=== PATIENT | male | born 1985 | race Caucasian/White ===

== ENCOUNTER 2016-11-04 23:19 | Inpatient (IN) | payer BC ==
[~2016-11-04] VITALS: Ht 177.8 cm; Wt 64.2 kg
[~2016-11-04 23:19] MED LIST: DOXE50CA3 PO; LEVE500 PO; LORA-392 PO; POTA10CA PO; PROT40TA PO
[2016-11-04 23:21] VITALS: BP 148/101; PULSE 106; RESP 18; TEMP 98.4; O2SAT 96
[2016-11-04] MEDS ORDERED: SODIUM CHLOR 0.9% 1000 ML INJ 1,000 ML IV ONE (23:24)
[2016-11-04] MEDS ORDERED: SODIUM CHLORIDE 0.9% FLUSH 10 ML FLUSH IVF PRN (23:30)
[2016-11-04] MEDS ORDERED: LORazepam 2 MG/ML VIAL IVS ONE (23:30)
--- NOTE | 2016-11-04 23:39 | PD ---
HPI Chief Complaint: Altered Mental Status Time Seen by Provider: 23:24 Travel History International Travel<30 days: No Contact w/Intl Traveler<30days: No Traveled to known affect area: No History of Present Illness HPI Patient 31-year-old male with a history of seizure disorder presents emergency department for evaluation of possible seizure. Per EMS the patient was acting altered today, he was found unconscious and then became combative on the way to the hospital requiring restraints. The patient on arrival is calm or states that he occasionally extremity marijuana but denies any other illicit drug use or alcohol use. He states that he takes Keppra for seizures. Patient's mother arrives and states the patient is been acting strange all day. States that she has not been seeing him drinking any alcohol nor do any drugs. She is become concerned because the patient has been anorexic and not eating well and she thinks this is from psychiatric disorder and she is tried to convince him to go see a psychiatrist multiple times and he refuses. Patient's history is fairly limited this time as he is altered. PFSH Past Medical History Arthritis: No Autoimmune Disease: No Anxiety: Yes Depression: No Cancer: No Cardiovascular Problems: No Cerebrovascular Accident: No Diabetes: No Diminished Hearing: No Endocrine: No Gastrointestinal Disorders: Yes (GERD) Genitourinary: No Hepatitis: No Hiatal Hernia: No Hypertension: No Immune Disorder: No Medical other: Yes (anorexia) Musculoskeletal: Yes (FACE, JAW) Neurologic: Yes (SEIZURE) Psychiatric: No Reproductive: No Seizures: Yes Thyroid Disease: No Tetanus Vaccination: Unknown Influenza Vaccination: Yes Past Surgical History Abdominal Surgery: Yes (LEFT INGUINAL HERNIA) Cardiac Surgery: No Ear Surgery: No Endocrine Surgery: No Eye Surgery: No Genitourinary Surgery: No Oral Surgery: No Thoracic Surgery: No Other Surgery: Yes Social History Alcohol Use: Yes (OCC) Tobacco Use: No Substance Use: Yes (marijaunia occasionally) Allergies-Medications (Allergen,Severity, Reaction): Coded Allergies: Sulfa (Verified Allergy, Severe, hives, 05/22/16) Reported Meds & Prescriptions Reported Meds & Active Scripts Active Reported Potassium Chloride ER (Potassium Chloride) 10 Meq Cap 10 Meq PO DAILY Ativan (Lorazepam) 0.5 Mg Tab 0.5 Mg PO Q8H PRN Protonix (Pantoprazole Sodium) 40 Mg Tab 40 Mg PO DAILY Doxepin (Doxepin HCl) 50 Mg Cap 50 Mg PO BID take 1 capsule in the morning and 4 capsules at bedtime Keppra (Levetiracetam) 500 Mg Tab 500 Mg PO BID Review of Systems ROS Limitations: Altered Mental Status Physical Exam Narrative GENERAL: Well-developed, thin but in no apparent distress. In 4-point restraints. SKIN: Warm and dry. No bruising no rash no wound. HEAD: Atraumatic. Normocephalic. EYES: Pupils equal and round. No scleral icterus. No injection or drainage. ENT: No nasal bleeding or discharge. Mucous membranes pink and moist. No tongue laceration. NECK: Trachea midline. No JVD. CARDIOVASCULAR: Regular rate and rhythm. RESPIRATORY: No accessory muscle use. Clear to auscultation. Breath sounds equal bilaterally. GASTROINTESTINAL: Abdomen soft, non-tender, nondistended. Hepatic and splenic margins not palpable. MUSCULOSKELETAL: Extremities without clubbing, cyanosis, or edema. No obvious deformities. NEUROLOGICAL: Awake and alert. No obvious cranial nerve deficits. Motor grossly within normal limits. Follows commands in all 4 extremities.. PSYCHIATRIC: Unable to assess. Mildly confused. Data Data Last Documented VS Vital Signs Date Time Temp Pulse Resp B/P Pulse Ox O2 Delivery O2 Flow Rate FiO2 11/05/16 04:00 92 16 168/100 100 Room Air 11/04/16 23:21 98.4 Orders Complete Blood Count With Diff (11/04/16 23:24) Alcohol (Ethanol) (11/04/16 23:24) Drug Screen, Random Urine (11/04/16 23:24) Ecg Monitoring (11/04/16 23:24) Iv Access Insert/Monitor (11/04/16 23:24) Oximetry (11/04/16 23:24) Comprehensive Metabolic Panel (11/04/16 23:24) Sodium Chlor 0.9% 1000 Ml Inj (Ns 1000 M (11/04/16 23:24) Sodium Chloride 0.9% Flush (Ns Flush) (11/04/16 23:30) Lorazepam Inj (Ativan Inj) (11/04/16 23:30) Ct Brain W/O Iv Contrast(Rout) (11/04/16 ) Restraints Non-Violent KEITH.Q3H (11/04/16 23:36) Potassium Chlor 20 Meq Premix (Kcl 20 Me (11/05/16 00:30) Thiamine Inj (Thiamine Inj) (11/05/16 00:30) Basic Metabolic Panel (Bmp) (11/05/16 03:17) Alcohol (Ethanol) (11/05/16 03:17) Protein Corrected Calcium(Pcc) (11/05/16 03:31) Admit Order (Ed Use Only) (11/05/16 ) Labs Laboratory Tests Test 11/04/16 11/05/16 11/05/16 23:28 02:27 03:31 White Blood Count 6.9 TH/MM3 Red Blood Count 4.21 MIL/MM3 Hemoglobin 15.2 GM/DL Hematocrit 43.5 % Mean Corpuscular Volume 103.3 FL Mean Corpuscular Hemoglobin 36.2 PG Mean Corpuscular Hemoglobin 35.1 % Concent Red Cell Distribution Width 14.6 % Platelet Count 382 TH/MM3 Mean Platelet Volume 7.4 FL Neutrophils (%) (Auto) 74.1 % Lymphocytes (%) (Auto) 20.7 % Monocytes (%) (Auto) 4.5 % Eosinophils (%) (Auto) 0.2 % Basophils (%) (Auto) 0.5 % Neutrophils # (Auto) 5.1 TH/MM3 Lymphocytes # (Auto) 1.4 TH/MM3 Monocytes # (Auto) 0.3 TH/MM3 Eosinophils # (Auto) 0.0 TH/MM3 Basophils # (Auto) 0.0 TH/MM3 CBC Comment DIFF FINAL Differential Comment Sodium Level 139 MEQ/L 144 MEQ/L Potassium Level 2.0 MEQ/L 2.1 MEQ/L Chloride Level 97 MEQ/L 104 MEQ/L Carbon Dioxide Level 26.1 MEQ/L 27.3 MEQ/L Anion Gap 16 MEQ/L 13 MEQ/L Blood Urea Nitrogen 3 MG/DL 4 MG/DL Creatinine 0.95 MG/DL 0.70 MG/DL Estimat Glomerular Filtration 93 ML/MIN 132 ML/MIN Rate Random Glucose 135 MG/DL 111 MG/DL Calcium Level 7.5 MG/DL 6.7 MG/DL Total Bilirubin 0.4 MG/DL Aspartate Amino Transf 196 U/L (AST/SGOT) Alanine Aminotransferase 147 U/L (ALT/SGPT) Alkaline Phosphatase 205 U/L Total Protein 6.2 GM/DL 5.2 GM/DL Albumin 3.6 GM/DL Ethyl Alcohol Level 473 MG/DL 342 MG/DL Urine Opiates Screen NEG Urine Barbiturates Screen NEG Urine Amphetamines Screen NEG Urine Benzodiazepines Screen POS Urine Cocaine Screen NEG Urine Cannabinoids Screen POS Protein Corrected Calcium 7.7 MG/DL MDM Medical Decision Making Medical Screen Exam Complete: Yes Emergency Medical Condition: Yes Interpretation(s) EKG shows sinus tachycardia rate of 101, ST segment depression and inversions in the majority of the leads. No elevation. This is an unknown significance but likely nonischemic change. Comparison to 05/22/2016 is no change. This is an abnormal EKG per Differential Diagnosis Dehydration, intoxication, head injury, postictal phase, substance abuse, electrolyte abnormality Narrative Course Patient was roomed emergency department, he will follow all commands but the patient is slow to give history either trying to subvert the examiner or is altered enough to not be able to do so. His labs reveal an alcohol level of 470. I think this would confirm a cause for his altered mental status. CT head was negative, patient has multiple electrolyte abnormalities including hypokalemia which is fairly profound to 2.0. Patient mother arrives and I have discussed the results with her and she states that he lives with her and the only alcohol they have in the house is [employer] wine. Patient was given fluids thiamine and Ativan and potassium. His labs were rechecked confirms that he is indeed intoxicated potassium will need more prolonged repletion. Patient was discussed with Dr. Grajeda for admission and she is agreeable. Diagnosis Primary Impression: Hypokalemia Additional Impression: Alcohol intoxication Admitting Information Admitting Physician Requests: Admit Condition: Bradford Macias MD Nov 04, 2016 23:39
[2016-11-04 23:44] LABS: AUTOMATED NEUTROPHIL # 5.1 TH/MM3 (1.8-7.7); BASOPHIL % 0.5 % (0.0-2.0); EOSINOPHIL % 0.2 % (0.0-4.0); HEMATOCRIT 43.5 % (39.0-51.0); HEMO FLAGS DIFF FINAL; LYMPH % 20.7 % (9.0-44.0); LYMPHOCYTE # 1.4 TH/MM3 (1.0-4.8); MEAN CELL VOLUME 103.3 FL (80.0-100.0); MEAN CORPUSCULAR HEMOGLOBIN 36.2 PG (27.0-34.0); MEAN CORPUSCULAR HGB CONC 35.1 % (32.0-36.0); MONO % 4.5 % (0.0-8.0); NEUT % 74.1 % (16.0-70.0); PLATELET COUNT 382 TH/MM3 (150-450); RED BLOOD COUNT 4.21 MIL/MM3 (4.50-5.90); RED CELL DISTRIBUTION WIDTH 14.6 % (11.6-17.2); WHITE BLOOD COUNT 6.9 TH/MM3 (4.0-11.0)
[2016-11-05] VITALS (8 sets, daily range): BP systolic 92–176; BP diastolic 63–100; PULSE 72–101; RESP 14–20; TEMP 97.7–98.6; O2SAT 94–100
[2016-11-05 00:05] LABS: ALKALINE PHOSPHATASE 205 U/L (45-117); ALT (GPT) 147 U/L (12-78); ANION GAP 16 MEQ/L (5-15); AST (GOT) 196 U/L (15-37); BICARBONATE 26.1 MEQ/L (21.0-32.0); BLOOD UREA NITROGEN 3 MG/DL (7-18); CHLORIDE 97 MEQ/L (98-107); GLOMERULAR FILTRATION RATE 93 ML/MIN (>89); SODIUM (NA) 139 MEQ/L (136-145); TOTAL BILIRUBIN ADULT 0.4 MG/DL (0.2-1.0)
[2016-11-05] MEDS ORDERED: POTASSIUM CHLOR 20 MEQ PREMIX 100 ML IV ONE ×2 (00:30→18:00)
[2016-11-05] MEDS ORDERED: THIAMINE INJ 100 MG in SODIUM CHLORIDE 0.9% INJ 100 ML IV ONE (00:30)
--- NOTE | 2016-11-05 02:05 | RADRPT ---
EXAM DATE/TIME: 11/05/2016 01:54 [facility] COMPARISON: MRI BRAIN W & W/O CONTRAST, August 28, 2015, 8:18. CT BRAIN W/O CONTRAST, August 27, 2015, 8:32. INDICATIONS : Altered mental status. RADIATION DOSE: 34.94 CTDIvol (mGy) MEDICAL HISTORY : Seizures. SURGICAL HISTORY : None. ENCOUNTER: Initial ACUITY: 1 day PAIN SCALE: 0/10 LOCATION: cranial TECHNIQUE: Multiple contiguous axial images were obtained of the head. Using automated exposure control and adj ustment of the mA and/or kV according to patient size, radiation dose was kept as low as reasonably a chievable to obtain optimal diagnostic quality images. FINDINGS: CEREBRUM: The ventricles are normal for age. No evidence of midline shift, mass lesion, hemorrhage or acute in farction. No extra-axial fluid collections are seen. POSTERIOR FOSSA: The cerebellum and brainstem are intact. The 4th ventricle is midline. The cerebellopontine angle i s unremarkable. EXTRACRANIAL: The visualized portion of the orbits is intact. SKULL: The calvaria is intact. No evidence of skull fracture. CONCLUSION: Negative noncontrast head CT. Alejandro Lawson MD on November 05, 2016 at 2:03 Board Certified Radiologist. This report was verified electronically.
[2016-11-05 02:44] LABS: AMPHETAMINE, URINE NEG (NEG); BARBITURATES, URINE NEG (NEG); COCAINE, URINE NEG (NEG)
[2016-11-05 04:18] LABS: BICARBONATE 27.3 MEQ/L (21.0-32.0)
[2016-11-05 04:29] LABS: POTASSIUM 2.1 MEQ/L (3.5-5.1)
[2016-11-05 04:44] LABS: CALCIUM-PROTEIN CORRECTED 7.7 MG/DL (8.5-10.1)
[2016-11-05] MEDS ORDERED: LORazepam 2 MG TAB PO PRN (04:45)
[2016-11-05] MEDS ORDERED: MAGNESIUM HYDROXIDE SUSP 30 ML CUP PO PRN (04:45)
[2016-11-05] MEDS ORDERED: FLUMAZENIL 0.5 MG/5 ML VIAL IV PUSH PRN (04:45)
[2016-11-05] MEDS ORDERED: MISCELLANEOUS NURSING INFORMATION XX SCH (04:45)
[2016-11-05] MEDS ORDERED: ACETAMINOPHEN 325 MG TAB PO PRN (04:45)
[2016-11-05] MEDS ORDERED: BISACODYL 10 MG SUPP RECTAL PRN (04:45)
[2016-11-05] MEDS ORDERED: LORazepam 2 MG/ML VIAL IV PUSH PRN ×5 (04:45)
[2016-11-05] MEDS ORDERED: SENNOSIDES 8.6 MG TAB PO PRN (04:45)
[2016-11-05] MEDS ORDERED: CHLORHEXIDINE GLUCONATE 2 % 1 PACK (2 CLOTHS) TOP PRN (04:45)
[2016-11-05] MEDS ORDERED: SODIUM CHLORIDE 0.9% FLUSH 10 ML FLUSH IV FLUSH PRN (04:45)
[2016-11-05] MEDS ORDERED: LACTULOSE SYRUP 20 GM/30 ML CUP PO PRN (04:45)
[2016-11-05] MEDS ORDERED: HALOPERIDOL LACTATE 5 MG/ML AMP IM PRN (04:45)
[2016-11-05] MEDS ORDERED: POTASSIUM CHLORIDE 20 MEQ CONTROLLED RELEASE TAB PO ONE ×2 (04:45→17:45)
[2016-11-05] MEDS: POTASSIUM CHLOR 20 MEQ PREMIX 100 ML IV SCH ×2 (05:42→08:15)
--- NOTE | 2016-11-05 05:42 | HHI.HP ---
[facility] Service [place] [facility] Primary Care Physician No Primary Care Physician Admission Diagnosis Hypokalemia Diagnoses: (1) Hypokalemia Diagnosis: Principal (2) Alcohol abuse Diagnosis: Principal (3) HTN (hypertension) Diagnosis: Principal (4) History of seizure Diagnosis: Principal (5) Hypocalcemia Diagnosis: Principal Travel History International Travel<30 Days: No Contact w/Intl Traveler <30 Da: No Traveled to Known Affected Are: No History of Present Illness This is a 31-year-old male with a PMH of Anxiety, Depression, h/o Seizure and Alcohol Abuse who was brought to the ER by EMS after being found unresponsive by Mother at home. Per EMS, pt difficult to arouse however became combative, spitting and trying to strike medics, initially in leather restraints. No history of Alcohol Abuse, however mother denies knowledge of any recent ingestion. On arrival, BP 148/101, HR 106, O2 sat 96% on RA, Afebrile. CBC with no significant findings except for MCV 103.3. K+ 2.1, s/p 20mEq K+ in ER. Ca 6.7. Urine Drug Screen positive for Benzos and Marijuana. Alcohol 473. CT Head with no acute finding. Review of Systems Except as stated in HPI: all other systems reviewed are Neg Past Family Social History Past Medical History PMH: Anxiety, Depression, h/o Seizure and Alcohol Abuse Past Surgical History PAST SURGICAL HISTORY: Left Inguinal Hernia Repair Allergies: Coded Allergies: Sulfa (Verified Allergy, Severe, hives, 05/22/16) Family History PAST FAMILY HISTORY: Reviewed. No h/o DM or CAD Social History PAST SOCIAL HISTORY: Positive for alcohol abuse, unable to quantify. Negative for tobacco. Positive for Marijuana. Physical Exam Vital Signs Vital Signs Date Time Temp Pulse Resp B/P Pulse Ox O2 Delivery O2 Flow Rate FiO2 11/05/16 05:15 89 14 144/88 99 Room Air 11/05/16 04:00 92 16 168/100 100 Room Air 11/05/16 03:05 100 14 176/98 98 Room Air 11/05/16 01:15 101 14 176/94 96 Room Air 11/04/16 23:21 98.4 106 18 148/101 96 Physical Exam PE: GENERAL: Thin young white male in no acute distress. HEENT: PERRLA, EOMI. No scleral icterus or conjunctival pallor. No lid lag or facial droop. CARDIOVASCULAR: Regular rate and rhythm. No obvious murmurs to auscultation. No chest tenderness to palpation. RESPIRATORY: No obvious rhonchi or wheezing. Clear to auscultation. Breath sounds equal bilaterally. GASTROINTESTINAL: Abdomen soft, non-tender, nondistended. BS normal. MUSCULOSKELETAL: Extremities without clubbing, cyanosis, or edema. No obvious deformities. NEUROLOGICAL: Sleepy, intoxicated. No focal neurologic deficits. Moving both upper and lower extremities spontaneously. Laboratory Laboratory Tests Test 11/04/16 11/05/16 11/05/16 23:28 02:27 03:31 White Blood Count 6.9 Red Blood Count 4.21 Hemoglobin 15.2 Hematocrit 43.5 Mean Corpuscular Volume 103.3 Mean Corpuscular Hemoglobin 36.2 Mean Corpuscular Hemoglobin 35.1 Concent Red Cell Distribution Width 14.6 Platelet Count 382 Mean Platelet Volume 7.4 Neutrophils (%) (Auto) 74.1 Lymphocytes (%) (Auto) 20.7 Monocytes (%) (Auto) 4.5 Eosinophils (%) (Auto) 0.2 Basophils (%) (Auto) 0.5 Neutrophils # (Auto) 5.1 Lymphocytes # (Auto) 1.4 Monocytes # (Auto) 0.3 Eosinophils # (Auto) 0.0 Basophils # (Auto) 0.0 CBC Comment DIFF FINAL Differential Comment Sodium Level 139 144 Potassium Level 2.0 2.1 Chloride Level 97 104 Carbon Dioxide Level 26.1 27.3 Anion Gap 16 13 Blood Urea Nitrogen 3 4 Creatinine 0.95 0.70 Estimat Glomerular Filtration 93 132 Rate Random Glucose 135 111 Calcium Level 7.5 6.7 Total Bilirubin 0.4 Aspartate Amino Transf 196 (AST/SGOT) Alanine Aminotransferase 147 (ALT/SGPT) Alkaline Phosphatase 205 Total Protein 6.2 5.2 Albumin 3.6 Ethyl Alcohol Level 473 342 Urine Opiates Screen NEG Urine Barbiturates Screen NEG Urine Amphetamines Screen NEG Urine Benzodiazepines Screen POS Urine Cocaine Screen NEG Urine Cannabinoids Screen POS Protein Corrected Calcium 7.7 Result Diagram: 11/04/16 2328 11/05/16 0331 Assessment and Plan Problem List: (1) Alcohol abuse ICD Code: F10.10 Status: Acute (2) Hypokalemia ICD Code: E87.6 Status: Acute (3) Hypocalcemia ICD Code: E83.51 Status: Acute (4) HTN (hypertension) ICD Code: I10 Status: Acute (5) History of seizure ICD Code: Z87.898 Status: Chronic Assessment and Plan A/P: 1. Alcohol Abuse: w/ Acute Alcohol Intoxication, found unresponsive by EMS, later combative/agitated requiring restraints. CIWA, Seizure Precautions, MVT/ Thiamine/Folate replacement. 2. Hypokalemia: K+ 2.1, s/p 20mEq K+ in ER, will need significantly more replacement, give PO and IV, repeat K+ following initial replacement. No acute EKG changes. Admit to ICU in light of significant electrolyte abnormality and heavy alcohol intoxication. 3. Hypocalcemia: Ca 6.7, corrected 7.7. Give Calcium 1gm, repeat in am. 4. HTN: Uncontrolled. BP 160-170's. Start Clonidine, monitor BP. 5. Seizure: H/o Seizure, likely alcohol-related, on Keppra 500mg bid per medication list, however unclear if compliant. No reported seizure activity. Resume home Keppra, Seizure Precautions, Ativan prn. 6. DVT Prophylaxis: SCD/Teds. 7. Social work for d/c planning as needed. 8. Case discussed w/ ER physician at length. Physician Certification 2 Midnight Certification Type: Admission for Inpatient Services Order for Inpatient Services The services are ordered in accordance with Medicare regulations or non- Medicare payer requirements, as applicable. In the case of services not specified as inpatient-only, they are appropriately provided as inpatient services in accordance with the 2-midnight benchmark. Estimated LOS (days): 2 days is the estimated time the patient will need to remain in the hospital, assuming treatment plan goals are met and no additional complications. Post-Hospital Plan: Not yet determined Di Talley MD Nov 05, 2016 05:42
[2016-11-05] MEDS ORDERED: CALCIUM GLUCONATE 10% 1 GM/10 ML VIAL IV PUSH ONE (05:45)
[2016-11-05] MEDS: ONDANSETRON HCL 4 MG/2 ML VIAL IVP PRN ×3 (06:30→18:00)
[2016-11-05] MEDS: cloNIDine HCL 0.2 MG TAB PO SCH ×3 (06:33→20:35)
[2016-11-05] MEDS: CHLORHEXIDINE GLUCONATE 2 % 1 PACK (2 CLOTHS) TOP SCH (06:34)
[2016-11-05] MEDS: MULTIVITAMIN INJ 10 ML, FOLIC ACID INJ 1 MG in SODIUM CHLORID 0.9% 500 ML INJ 500 ML IV SCH (08:14)
[2016-11-05] MEDS: THIAMINE INJ 100 MG in SODIUM CHLORIDE 0.9% INJ 100 ML IV SCH (08:14)
[2016-11-05] MEDS: SODIUM CHLORIDE 0.9% FLUSH 10 ML FLUSH IV FLUSH SCH ×2 (09:29→20:19)
[2016-11-05] MEDS: levETIRAcetam 500 MG TAB PO SCH ×2 (09:29→20:19)
[2016-11-05] MEDS: DOCUSATE SODIUM 50 MG/SENNA 8.6 MG TAB PO SCH ×2 (09:29→20:19)
[2016-11-05] MEDS: SODIUM CHLOR 0.9% 1000 ML INJ 1,000 ML IV SCH ×2 (10:00→23:39)
[2016-11-05] MEDS ORDERED: SERO25TA PO ×2 (11:29)
[2016-11-05] MEDS ORDERED: ALPR.25 PO ×2 (11:29)
[2016-11-05] MEDS ORDERED: SARA10TA PO (11:29)
--- NOTE | 2016-11-05 17:34 | EKG ---
Date Performed: 11/04/2016 Time Performed: 23:28:10 PTAGE: 31 years EKG: SINUS TACHYCARDIA DIFFUSE ST DEVIATION AND MODERATE T-WAVE ABNORMALITY ABNORMAL ECG PREVIOUS TRACING : 05/22/2016 12.49 Compared to prior tracing no significant change DOCTOR: Concepcion Edward Interpretating Date/Time 11/05/2016 17:33:44
[2016-11-05] MEDS: QUEtiapine FUMARATE 25 MG TAB PO SCH (20:19)
[2016-11-05] MEDS: ALPRAZolam 0.5 MG TAB PO SCH (20:19)
[2016-11-05 23:38] LABS: POTASSIUM 2.8 MEQ/L (3.5-5.1)
[2016-11-05 23:47] LABS: MAGNESIUM 1.3 MG/DL (1.5-2.5)
[2016-11-06] VITALS (8 sets, daily range): BP systolic 101–132; BP diastolic 64–89; PULSE 67–94; RESP 16–22; TEMP 95.8–98.6; O2SAT 96–100
[2016-11-06] MEDS ORDERED: POTASSIUM CHLORIDE 20 MEQ CONTROLLED RELEASE TAB PO ONE
[2016-11-06] MEDS: POTASSIUM CHLOR 20 MEQ PREMIX 100 ML IV SCH ×4 (00:11→12:10)
[2016-11-06] MEDS: ONDANSETRON HCL 4 MG/2 ML VIAL IVP PRN ×4 (00:11→21:14)
[2016-11-06] MEDS: LORazepam 1 MG TAB PO PRN ×2 (00:20→23:04)
[2016-11-06] MEDS: MAGNESIUM SULFATE 1 GM PREMIX 100 ML IV SCH ×3 (00:20→02:55)
[2016-11-06] MEDS: THIAMINE INJ 100 MG in SODIUM CHLORIDE 0.9% INJ 100 ML IV SCH (03:57)
[2016-11-06] MEDS: cloNIDine HCL 0.2 MG TAB PO SCH ×3 (04:07→23:02)
[2016-11-06] MEDS: MULTIVITAMIN INJ 10 ML, FOLIC ACID INJ 1 MG in SODIUM CHLORID 0.9% 500 ML INJ 500 ML IV SCH (05:34)
[2016-11-06 05:57] LABS: AUTOMATED NEUTROPHIL # 2.3 TH/MM3 (1.8-7.7); BASOPHIL % 0.6 % (0.0-2.0); EOSINOPHIL # 0.1 TH/MM3 (0-0.4); EOSINOPHIL % 1.6 % (0.0-4.0); HEMATOCRIT 27.2 % (39.0-51.0); HEMO FLAGS DIFF FINAL; LYMPH % 37.7 % (9.0-44.0); LYMPHOCYTE # 1.6 TH/MM3 (1.0-4.8); MEAN CORPUSCULAR HEMOGLOBIN 36.6 PG (27.0-34.0); MEAN CORPUSCULAR HGB CONC 34.9 % (32.0-36.0); MONO % 6.3 % (0.0-8.0); NEUT % 53.8 % (16.0-70.0); PLATELET COUNT 216 TH/MM3 (150-450); RED CELL DISTRIBUTION WIDTH 14.7 % (11.6-17.2); WHITE BLOOD COUNT 4.3 TH/MM3 (4.0-11.0)
[2016-11-06 06:47] LABS: BICARBONATE 22.2 MEQ/L (21.0-32.0); CALCIUM-PROTEIN CORRECTED 8.2 MG/DL (8.5-10.1); MAGNESIUM 2.4 MG/DL (1.5-2.5); TOTAL BILIRUBIN ADULT 0.6 MG/DL (0.2-1.0)
[2016-11-06 08:03] LABS: POTASSIUM 2.6 MEQ/L (3.5-5.1)
[2016-11-06] MEDS: DOCUSATE SODIUM 50 MG/SENNA 8.6 MG TAB PO SCH ×2 (09:00→21:00)
[2016-11-06] MEDS: SODIUM CHLORIDE 0.9% FLUSH 10 ML FLUSH IV FLUSH SCH ×2 (09:50→21:00)
[2016-11-06] MEDS: levETIRAcetam 500 MG TAB PO SCH ×2 (09:50→21:11)
[2016-11-06] MEDS: ALPRAZolam 0.5 MG TAB PO SCH ×2 (09:51→21:11)
[2016-11-06] MEDS: QUEtiapine FUMARATE 25 MG TAB PO SCH ×2 (09:52→21:10)
[2016-11-06] MEDS: FLUoxetine HCL 10 MG CAP PO SCH (09:52)
[2016-11-06] MEDS: ALPRAZolam 0.25 MG TAB PO SCH (12:10)
[2016-11-06] MEDS: SODIUM CHLOR 0.9% 1000 ML INJ 1,000 ML IV SCH (18:34)
[2016-11-07] VITALS (7 sets, daily range): BP systolic 103–148; BP diastolic 60–79; PULSE 67–92; RESP 20; TEMP 97–98.6; O2SAT 99–100
[2016-11-07] MEDS: CHLORHEXIDINE GLUCONATE 2 % 1 PACK (2 CLOTHS) TOP SCH (04:00)
[2016-11-07] MEDS: THIAMINE INJ 100 MG in SODIUM CHLORIDE 0.9% INJ 100 ML IV SCH (04:42)
[2016-11-07] MEDS: ONDANSETRON HCL 4 MG/2 ML VIAL IVP PRN ×3 (04:42→23:52)
[2016-11-07] MEDS: MULTIVITAMIN INJ 10 ML, FOLIC ACID INJ 1 MG in SODIUM CHLORID 0.9% 500 ML INJ 500 ML IV SCH (05:30)
[2016-11-07] MEDS: cloNIDine HCL 0.2 MG TAB PO SCH ×3 (05:32→21:44)
[2016-11-07 07:48] LABS: AUTOMATED NEUTROPHIL # 1.8 TH/MM3 (1.8-7.7); EOSINOPHIL % 1.4 % (0.0-4.0); HEMATOCRIT 28.1 % (39.0-51.0); HEMO FLAGS DIFF FINAL; LYMPH % 26.9 % (9.0-44.0); LYMPHOCYTE # 0.7 TH/MM3 (1.0-4.8); MEAN CELL VOLUME 106.1 FL (80.0-100.0); MEAN CORPUSCULAR HEMOGLOBIN 36.8 PG (27.0-34.0); MEAN CORPUSCULAR HGB CONC 34.7 % (32.0-36.0); MONO % 6.6 % (0.0-8.0); NEUT % 64.1 % (16.0-70.0); PLATELET COUNT 178 TH/MM3 (150-450); RED BLOOD COUNT 2.65 MIL/MM3 (4.50-5.90); RED CELL DISTRIBUTION WIDTH 14.2 % (11.6-17.2); WHITE BLOOD COUNT 2.8 TH/MM3 (4.0-11.0)
[2016-11-07 08:11] LABS: BICARBONATE 21.3 MEQ/L (21.0-32.0); MAGNESIUM 1.5 MG/DL (1.5-2.5)
[2016-11-07 08:18] LABS: POTASSIUM 2.6 MEQ/L (3.5-5.1)
[2016-11-07 08:30] LABS: CALCIUM-PROTEIN CORRECTED 7.6 MG/DL (8.5-10.1)
--- NOTE | 2016-11-07 08:36 | HHI.PR ---
Subjective Remarks Late entry note from 11/06 Patient seen and examined, he looks tired but he denied complaining no nausea or vomiting no abdominal pain He still very drained on his electrolyte K is 2.6, magnesium was 1.3 as well as phosphorus yesterday we are aggressively repleting it Objective Vitals Vital Signs Date Time Temp Pulse Resp B/P Pulse Ox O2 Delivery O2 Flow Rate FiO2 11/07/16 08:04 97.1 76 20 124/60 100 11/07/16 05:43 18 11/07/16 04:26 97.4 92 20 127/78 99 11/07/16 00:28 97.0 90 20 148/76 100 11/06/16 20:43 98.6 94 22 132/89 100 11/06/16 16:00 95.8 94 18 117/71 100 11/06/16 12:00 97.8 74 18 110/74 98 I/O 11/06/16 11/06/16 11/06/16 11/07/16 11/07/16 11/07/16 07:00 15:00 23:00 07:00 15:00 23:00 Intake Total 1678 ml 480 ml 560 ml 820 ml Output Total 0 ml Balance 1678 ml 480 ml 560 ml 820 ml Intake Oral 480 ml 480 ml 560 ml 820 ml IV Total 1198 ml Emesis 0 ml # Voids 3 4 7 6 # Bowel Movements 3 2 1 1 Result Diagram: 11/07/1670411/07/16704 Objective Remarks GENERAL: This is a well-nourished, well-developed patient, in no apparent distress. SKIN: No rashes, warm and dry HEAD: Atraumatic. Normocephalic. EYES: Pupils equal round and reactive. Extraocular motions intact. No scleral icterus. ENT: Nose without bleeding, or drainage, Airway patent. NECK: Trachea midline. Supple CARDIOVASCULAR: Regular rate and rhythm without murmurs, gallops, or rubs. RESPIRATORY: Fair air entry bilaterally. No wheezes, rales, or rhonchi. GASTROINTESTINAL: Abdomen soft, non-tender, nondistended. Positive bowel sounds MUSCULOSKELETAL: Extremities without clubbing, cyanosis, or edema. Pedal pulses appreciated NEUROLOGICAL: Awake and alert. Moves all extremity. Normal speech.no focal neurological deficit A/P Problem List: (1) Alcohol abuse ICD Code: F10.10 Status: Acute (2) Hypokalemia ICD Code: E87.6 Status: Acute (3) Hypocalcemia ICD Code: E83.51 Status: Acute (4) HTN (hypertension) ICD Code: I10 Status: Acute (5) History of seizure ICD Code: Z87.898 Status: Chronic Assessment and Plan 1. Alcohol Abuse: w/ Acute Alcohol Intoxication, found unresponsive by EMS, later combative/agitated requiring restraints. CIWA, Seizure Precautions, MVT/ Thiamine/Folate replacement. 2. Severe Hypokalemia: K+ less than 3, No acute EKG changes. Replete iv nothing by mouth 3. Hypocalcemia: Patient was given calcium gluconate, and 6.6 today 4. HTN: Uncontrolled. BP 160-170's. Start Clonidine, monitor BP. 5. Seizure: H/o Seizure, likely alcohol-related, on Keppra 500mg bid per medication list, however unclear if compliant. No reported seizure activity. Resume home Keppra, Seizure Precautions, Ativan prn. 6. DVT Prophylaxis: SCD/Teds. Kristina Jenkins MD Nov 07, 2016 08:36
[2016-11-07] MEDS ORDERED: CALCIUM GLUCONATE INJ 2 GM in DEXTROSE 5% IN WATER 100ML INJ 100 ML IV ONE ×2 (08:45)
[2016-11-07] MEDS: MAGNESIUM SULFATE 1 GM PREMIX 100 ML IV SCH ×2 (08:51→11:28)
[2016-11-07] MEDS: DOCUSATE SODIUM 50 MG/SENNA 8.6 MG TAB PO SCH ×2 (09:00→21:00)
[2016-11-07] MEDS: levETIRAcetam 500 MG TAB PO SCH ×2 (09:12→21:44)
[2016-11-07] MEDS: POTASSIUM CHLORIDE 10 MEQ CONTROLLED RELEASE TAB PO SCH ×2 (09:12→13:07)
[2016-11-07] MEDS: NS + KCL 40 MEQ INJ 1,000 ML IV SCH (09:12)
[2016-11-07] MEDS: QUEtiapine FUMARATE 25 MG TAB PO SCH ×2 (09:12→21:44)
[2016-11-07] MEDS: FLUoxetine HCL 10 MG CAP PO SCH (09:12)
[2016-11-07] MEDS: ALPRAZolam 0.5 MG TAB PO SCH ×2 (09:12→21:44)
[2016-11-07] MEDS: SODIUM CHLORIDE 0.9% FLUSH 10 ML FLUSH IV FLUSH SCH ×2 (09:13→21:00)
[2016-11-07 11:02] LABS: INDIRECT BILIRUBIN 0.3 MG/DL (0.0-0.8); TOTAL BILIRUBIN ADULT 0.5 MG/DL (0.2-1.0)
[2016-11-07] MEDS: ALPRAZolam 0.25 MG TAB PO SCH (12:34)
--- NOTE | 2016-11-07 17:41 | HHI.PR ---
Subjective History of Present Illness PT IS SEEN & eXAMINED CHART REVIEWED pt feels better No N/V appetite is better No abd pain No fever or chills No CP or SOB No cough or sputum offers no other c/o Vitals/Results Intake & Output 11/06/16 11/06/16 11/07/16 15:00 23:00 07:00 Intake Total 480 ml 560 ml 820 ml Balance 480 ml 560 ml 820 ml Intake Oral 480 ml 560 ml 820 ml # Voids 4 7 6 # Bowel Movements 2 1 1 Vital Signs Vital Signs Date Time Temp Pulse Resp B/P Pulse Ox O2 Delivery O2 Flow Rate FiO2 11/07/16 16:02 97.8 80 20 103/67 100 11/07/16 11:58 98.6 76 20 106/76 100 11/07/16 10:13 67 11/07/16 08:04 97.1 76 20 124/60 100 11/07/16 05:43 18 11/07/16 04:26 97.4 92 20 127/78 99 11/07/16 00:28 97.0 90 20 148/76 100 11/06/16 20:43 98.6 94 22 132/89 100 CBC/BMP: 11/07/16 0705 11/07/16 0705 Lab Results Laboratory Tests Test 11/07/16 07:05 White Blood Count 2.8 TH/MM3 Red Blood Count 2.65 MIL/MM3 Hemoglobin 9.7 GM/DL Hematocrit 28.1 % Mean Corpuscular Volume 106.1 FL Mean Corpuscular Hemoglobin 36.8 PG Mean Corpuscular Hemoglobin 34.7 % Concent Red Cell Distribution Width 14.2 % Platelet Count 178 TH/MM3 Mean Platelet Volume 7.7 FL Neutrophils (%) (Auto) 64.1 % Lymphocytes (%) (Auto) 26.9 % Monocytes (%) (Auto) 6.6 % Eosinophils (%) (Auto) 1.4 % Basophils (%) (Auto) 1.0 % Neutrophils # (Auto) 1.8 TH/MM3 Lymphocytes # (Auto) 0.7 TH/MM3 Monocytes # (Auto) 0.2 TH/MM3 Eosinophils # (Auto) 0.0 TH/MM3 Basophils # (Auto) 0.0 TH/MM3 CBC Comment DIFF FINAL Differential Comment Sodium Level 140 MEQ/L Potassium Level 2.6 MEQ/L Chloride Level 106 MEQ/L Carbon Dioxide Level 21.3 MEQ/L Anion Gap 13 MEQ/L Blood Urea Nitrogen 1 MG/DL Creatinine 0.65 MG/DL Estimat Glomerular Filtration 144 ML/MIN Rate Random Glucose 80 MG/DL Calcium Level 6.3 MG/DL Protein Corrected Calcium 7.6 MG/DL Phosphorus Level 1.9 MG/DL Magnesium Level 1.5 MG/DL Total Bilirubin 0.5 MG/DL Direct Bilirubin 0.2 MG/DL Indirect Bilirubin 0.3 MG/DL Aspartate Amino Transf 911 U/L (AST/SGOT) Alanine Aminotransferase 339 U/L (ALT/SGPT) Alkaline Phosphatase 203 U/L Total Protein 4.5 GM/DL Albumin 2.3 GM/DL Physical Exam General General Appearance: No Acute Distress, Comfortable Eyes Eye Exam: Pupils Equal, Sclera White, Extraocular Movement Intact Ears & Nose Ears & Nose Exam: Nasal Mucosa [place] Throat Throat Exam: Oral Mucosa [place] & Moist Neck Neck Exam: Neck Supple, Trachea Midline Pulmonary Resp Exam: Clear Bilaterally, Breath Sounds Equal Cardiology CV Exam: Regular, Normal Sinus Rhythm Gastrointestinal/Abdomen GI Exam: Soft, Non-Tender, Bowel Sounds Present Integumentary Skin Exam: Warm, Dry Extremeties Extremities Exam: No Edema, Pedal Pulses Palpable Neurologic Neuro Exam: Alert, Awake, Oriented, Speech Clear, Moving All Extremities Psychiatric Psych Exam: Appropriate Responses PUD Prophylasis PUD Prophylaxis: Protonix Assessment/Plan Problem List: (1) Alcohol abuse (2) Hypokalemia (3) Hypocalcemia (4) HTN (hypertension) (5) History of seizure (6) Bulimia nervosa (7) Depression Assessment/Plan replace K /Mag & phospahte IVF counselled against ETOH abuse Thiamine /folate [facility] protocol check hepatitis panel f/u LFT obtain GI consult check PT/INR check ammonia level cont Prozax/seroquel prn xanax pepcid am labs will f/u Toro Morales MD Nov 07, 2016 17:41
[2016-11-08 01:05] VITALS: BP 109/79; PULSE 86; RESP 20; TEMP 97.8; O2SAT 100
[2016-11-08] MEDS: NS + KCL 40 MEQ INJ 1,000 ML IV SCH (02:27)
[2016-11-08] MEDS: CHLORHEXIDINE GLUCONATE 2 % 1 PACK (2 CLOTHS) TOP SCH (03:02)
[2016-11-08 04:00] VITALS: BP 108/72; PULSE 69; RESP 18; TEMP 98.1; O2SAT 100
[2016-11-08] MEDS: MULTIVITAMIN INJ 10 ML, FOLIC ACID INJ 1 MG in SODIUM CHLORID 0.9% 500 ML INJ 500 ML IV SCH (06:09)
[2016-11-08] MEDS: cloNIDine HCL 0.2 MG TAB PO SCH ×3 (06:09→21:11)
[2016-11-08] MEDS: THIAMINE HCL 100 MG TAB PO SCH (08:21)
[2016-11-08] MEDS: ONDANSETRON HCL 4 MG/2 ML VIAL IVP PRN ×2 (08:21→17:55)
[2016-11-08] MEDS: levETIRAcetam 500 MG TAB PO SCH ×2 (08:21→21:12)
[2016-11-08] MEDS: QUEtiapine FUMARATE 25 MG TAB PO SCH ×2 (08:22→21:12)
[2016-11-08] MEDS: DOCUSATE SODIUM 50 MG/SENNA 8.6 MG TAB PO SCH ×2 (08:22→21:00)
[2016-11-08] MEDS: FLUoxetine HCL 10 MG CAP PO SCH (08:22)
[2016-11-08] MEDS: ALPRAZolam 0.5 MG TAB PO SCH ×2 (08:22→21:12)
[2016-11-08] MEDS: SODIUM CHLORIDE 0.9% FLUSH 10 ML FLUSH IV FLUSH SCH ×2 (08:22→21:11)
--- NOTE | 2016-11-08 08:22 | HHI.PR ---
Subjective Subjective Remarks awake, alert, oriented x 3 no tremors asking about lab work admits to ETOH 4 x a week, 3 to 6 drinks a day and marijuana use no other drug use mild nausea tolerating meal well no abd. pain no fever Review of Systems Constitutional Constitutional Remarks 12 point ROS completed, negative except as noted above Vitals/Results Intake & Output 11/07/16 11/07/16 11/08/16 14:59 22:59 06:59 Intake Total 2009 ml Output Total 6 ml Balance 2003 ml Intake Oral 1200 ml IV Total 810 ml Output Urine Total 6 ml # Voids 1 3 # Bowel Movements 2 0 Vital Signs Vital Signs Date Time Temp Pulse Resp B/P Pulse Ox O2 Delivery O2 Flow Rate FiO2 11/08/16 04:00 98.1 69 18 108/72 100 11/08/16 01:05 97.8 86 20 109/79 100 11/08/16 00:49 18 11/07/16 20:15 97.2 75 20 116/79 100 11/07/16 16:02 97.8 80 20 103/67 100 11/07/16 11:58 98.6 76 20 106/76 100 11/07/16 10:13 67 CBC/BMP: 11/07/16 0705 11/07/16 0705 Physical Exam General General Appearance: No Acute Distress, Comfortable Eyes Eye Exam: Pupils Equal, Sclera White, Extraocular Movement Intact Ears & Nose Ears & Nose Exam: Nasal Mucosa [place] Throat Throat Exam: Oral Mucosa [place] & Moist Neck Neck Exam: Neck Supple, Trachea Midline Pulmonary Resp Exam: Clear Bilaterally, Breath Sounds Equal Cardiology CV Exam: Regular, Normal Sinus Rhythm Gastrointestinal/Abdomen GI Exam: Soft, Non-Tender, Bowel Sounds Present Musculoskeletal MS Exam: Joints Intact Integumentary Skin Exam: Warm, Dry Extremeties Extremities Exam: No Edema, Pedal Pulses Palpable Neurologic Neuro Exam: Alert, Awake, Oriented, Speech Clear, Moving All Extremities, No Focal Deficits Psychiatric Psych Exam: Appropriate Responses VTE Prophylaxis VTE Prophylaxis Device: SCDs PUD Prophylasis PUD Prophylaxis: Protonix Assessment/Plan Problem List: (1) Alcohol abuse (2) Hypokalemia (3) Hypocalcemia (4) HTN (hypertension) (5) History of seizure (6) Bulimia nervosa (7) Depression Assessment/Plan continue with MVI, folate, Thiamine CIWA protocol monitor for DTs electrolyte replacement as needed BMP pending ETOH counseling transaminitis ? ETOH ,other drugs LFTs continue to increase GI consult pending hep panel pending continue Prozac/seroquel prn xanax seizure precautions continue Keppra Ativan PRN BP uncontrolled initially, now down to 100s add hold parameters to Clonidine SCDs for DVT prophylaxis pepcid for GI prophylaxi Labs in am D/W RN D/W Dr. Morales D/W pt This pt. was seen by myself and Dr. Morales, this note is written on his behalf. Problem Qualifiers (1) HTN (hypertension): Qualified Code: I10 - Essential hypertension Kaylah Heredia [facility] Nov 08, 2016 08:22
[2016-11-08 08:29] VITALS: BP 113/84; PULSE 72; RESP 20; TEMP 97.4; O2SAT 99
[2016-11-08 09:07] LABS: HEMATOCRIT 32.7 % (39.0-51.0); MEAN CORPUSCULAR HEMOGLOBIN 36.3 PG (27.0-34.0); MEAN CORPUSCULAR HGB CONC 33.6 % (32.0-36.0); PLATELET COUNT 190 TH/MM3 (150-450); RED BLOOD COUNT 3.03 MIL/MM3 (4.50-5.90); RED CELL DISTRIBUTION WIDTH 14.5 % (11.6-17.2); REVIEW FLAG FINAL; WHITE BLOOD COUNT 4.5 TH/MM3 (4.0-11.0)
[2016-11-08 09:12] LABS: PROTHROMBIN TIME - PATIENT 11.1 SEC (9.8-11.6)
--- NOTE | 2016-11-08 09:12 | PD.CONS ---
HPI History of Present Illness This is a 31 year old male who presented to the ER after he was found unresponsive by his mother. He has a history of alcohol abuse and reports that he did stop drinking for several months but recently started up again in about 1 -1/2 months ago. He reports that he has been drinking 3-6 drinks about 4 times a week for the past month and a half. However on the day of admission he reports he was under a great deal of stress and started "guzzling Vodka." He reports he does not remember anything after that. Apparently he was brought to the emergency room and was initially difficult to arouse, but then woke up and was combative. He is currently alert and oriented in no distress and is cooperative. He reports that when he initially came in he did have some nausea and vomiting with bilious material, but he is now only having mild nausea without vomiting. He denies any abdominal pain, diarrhea, constipation, melena , or hematochezia. He reports that he recently was started on Prozac but denies any other new medications. He does smoke marijuana about twice a month, but states that he never uses this more frequently. He denies the use of IV drug use, tattoos, new sexual partners. He has had shellfish recently. He has been evaluated by us in the past for nausea, vomiting, and elevated liver function tests. 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 The collective findings in this biopsy are most suggestive of drug induced changes. There is no evidence of primary biliary cirrhosis. There is mild secondary siderosis as may be observed with alcohol intake. Of note, he has also had a nonspecifically elevated AMA at 25.6 in the past (July of 2015). 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 The collective findings in this biopsy are most suggestive of drug induced changes. There is no evidence of primary biliary cirrhosis. There is mild secondary siderosis as may be observed with alcohol intake. Past Surgical History Left Inguinal Hernia Repair EGD Liver biopsy ORIF right hand (Elaine Hernandez) Coded Allergies: Sulfa (Verified Allergy, Severe, hives, 05/22/16) Medications Allergies Coded Allergies Type Severity Reaction Last Updated Verified Sulfa Allergy Severe hives 05/22/16 Yes Active Scripts Medications Dose Route/Sig Days Date Category Dose Instructions Sarafem (Fluoxetine (Pmdd)) 10 Mg Tab 30 Mg PO DAILY 11/05/16 Reported Seroquel (Quetiapine Fumarate) 25 Mg Tab 25 Mg PO BID 11/05/16 Reported 25mg in am and 50mg in pm Xanax (Alprazolam) 0.25 Mg Tab 0.25 Mg PO DIRECTED 11/05/16 Reported 0.5 mg im am, 0.25mg in afternoon and 0.5mg in pm Protonix (Pantoprazole Sodium) 40 Mg Tab 40 Mg PO DAILY 05/02/16 Reported Keppra (Levetiracetam) 500 Mg Tab 500 Mg PO BID 05/02/16 Reported Family History Denies any history of known liver disease in any family members Social History History of alcohol abuse. Reports that he quit for several months but started drinking again about 1-1/2 months ago- 3-6 drinks, 4 times a week, with more etoh intake the day of his admission Reports that he smokes marijuana about twice a month No tobacco use (Elaine Hernandez) Review of Systems Constitutional: COMPLAINS OF: Fatigue, DENIES: Fever, Weight loss, Chills Respiratory: DENIES: Cough Cardiovascular: DENIES: Chest pain Gastrointestinal: COMPLAINS OF: Nausea, Vomiting, DENIES: Abdominal pain, Black stools, Bloody stools, Constipation, Diarrhea, Anorexia, Swelling of Abdomen, Heartburn Musculoskeletal: DENIES: Joint pain Integumentary: DENIES: Abnormal pigmentation Hematologic/lymphatic: DENIES: Bruising Neurologic: DENIES: Headache Psychiatric: COMPLAINS OF: Anxiety, DENIES: Confusion (Elaine Hernandez) GI Exam Vitals I&O Vital Signs Date Time Temp Pulse Resp B/P Pulse Ox O2 Delivery O2 Flow Rate FiO2 11/08/16 08:29 97.4 72 20 113/84 99 11/08/16 04:00 98.1 69 18 108/72 100 11/08/16 01:05 97.8 86 20 109/79 100 11/08/16 00:49 18 11/07/16 20:15 97.2 75 20 116/79 100 11/07/16 16:02 97.8 80 20 103/67 100 11/07/16 11:58 98.6 76 20 106/76 100 11/07/16 10:13 67 I/O 11/07/16 11/07/16 11/07/16 11/08/16 11/08/16 11/08/16 07:00 15:00 23:00 07:00 15:00 23:00 Intake Total 820 ml 2010 ml Output Total 6 ml Balance 820 ml 2004 ml Intake Oral 820 ml 1200 ml IV Total 810 ml Output Urine Total 6 ml # Voids 6 1 3 # Bowel Movements 1 2 0 Imaging Last Impressions Head CT 11/04/16 0000 Signed Impressions: Service Date/Time: Saturday, November 05, 2016 01:54 - CONCLUSION: Negative noncontrast head CT. Alejandro Lawson MD Physical Examination HEENT: Normocephalic; atraumatic; no jaundice. CHEST: CTA CARDIAC: RRR ABDOMEN: Soft, nondistended, nontender; no hepatosplenomegaly; bowel sounds are present in all four quadrants. EXTREMITIES: No clubbing, cyanosis, or edema. SKIN: Generalized pallor LOG GETTER: No focal deficits; alert and oriented times three. (Elaine HernandezP) Assessment and Plan Plan ASSESSMENT: - Elevated LFTs. Pt with hx of ETOH abuse. Stopped drinking for several months , but started drinking 3-6 drinks, 4x a week about 1.5 months ago. On the day of admission, he was under more stress than normal and started "guzzling Vodka." He was recently started on Prozac. He denies any IVDA, tattoo's, new sexual partners. He has recently had shrimp. 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 The collective findings in this biopsy are most suggestive of drug induced changes. There is no evidence of primary biliary cirrhosis. There is mild secondary siderosis as may be observed with alcohol intake. LFTs increased overnight, with T. Bili 0.5, AST 911, ALT 339, Alk Phosph 203. CPK pending. Recently started on Prozac. Denies use of any acetaminophen containing products. Will get CPK, MRCP, await Hepatitis panel. Needs complete ETOH cessation. Will also repeat AMA. - AMS. Resolved. - Anemia. 9.7/28.1. Macrocytic 106.1. Likely related to ETOH, will get B12, folate. - Nausea with hx of GERD. Very mild. Did vomit on admission, small amount of bilious, but states he has only had mild nausea since. He was previously evaluated with EGD (05/04/16) and this revealed gastritis, esophagitis. Pathology revealed gastric body mucosa with mild active chronic gastritis, elisa stain is negative for helicobacter, distal esophageal biopsy with squamous mucosa with no significant histopathologic abnormalities, gastric mucosa with mild to moderate chronic inflammation of the lamina propria without evidence of metaplasia or dysplasia. - Hypokalemia, 2.4, replacement per primary. PLAN: - YUKI - CPK level - AMA level - MRCP today - CMP in am - Add Protonix 40mg po daily - Supportive care - Further recommendations to follow based on results of above - Pt seen and examined by Dr. Sarabia and myself and this note is written on his behalf (Elaine Hernandez) Physician Comments Seen and examined agree with above. MRCP suggests cholecystitis, symptoms non- specific. Ordered HIDA. Abstinence from etoh recommended. Monitor labs. Thank you (Carole Sarabia MD) Elaine Hernandez Nov 08, 2016 09:12 Carole Sarabia MD Nov 08, 2016 19:27
[2016-11-08 09:38] LABS: BICARBONATE 22.8 MEQ/L (21.0-32.0); INDIRECT BILIRUBIN 0.2 MG/DL (0.0-0.8); MAGNESIUM 1.6 MG/DL (1.5-2.5); POTASSIUM 3.2 MEQ/L (3.5-5.1); TOTAL BILIRUBIN ADULT 0.4 MG/DL (0.2-1.0)
[2016-11-08] MEDS: PANTOPRAZOLE SOD 40 MG DELAYED RELEASE TAB PO SCH (10:23)
[2016-11-08] MEDS ORDERED: POTASSIUM CHLORIDE 25 MEQ EFFERVESCENT TAB PO ONE (10:45)
[2016-11-08 10:49] VITALS: PULSE 49
[2016-11-08 10:57] LABS: CALCIUM-PROTEIN CORRECTED 8.6 MG/DL (8.5-10.1)
[2016-11-08] MEDS: ALPRAZolam 0.25 MG TAB PO SCH (11:12)
[2016-11-08 11:52] VITALS: BP 105/74; PULSE 57; RESP 20; TEMP 98; O2SAT 100
[2016-11-08] MEDS ORDERED: POTASSIUM PHOSPHATE MONOBASIC 500 MG TAB PO ONE (12:00)
[2016-11-08] MEDS ORDERED: POTASSIUM PHOSPHATE INJ 15 MMOL in SODIUM CHLORIDE 0.9% INJ 150 ML IV ONE (13:00)
--- NOTE | 2016-11-08 17:34 | RADRPT ---
EXAM DATE/TIME: 11/08/2016 15:40 [facility] COMPARISON: CT ABDOMEN & PELVIS W CONTRAST, May 02, 2016, 16:19. INDICATIONS : Elevated liver enzymes. MEDICAL HISTORY : None. SURGICAL HISTORY : Inguinal hernia repair. ENCOUNTER: Subsequent ACUITY: 4-6 days PAIN SCORE: 0/10 LOCATION: abdomen TECHNIQUE: Multiplanar, multisequence magnetic resonance imaging of the abdomen was performed. High-resolution 3D dataset was utilized to reconstruct maximum-intensity projection (MIP) images. FINDINGS: INTRAHEPATIC BILE DUCTS: Within normal limits. No significant anatomical variant is present. EXTRAHEPATIC BILE DUCTS: The common bile duct measures 3 mm. No stone or filling defect is identified. GALLBLADDER: Pericholecystic fluid is noted raising the possibility of acute cholecystitis. A hepatobiliary scan m ay be helpful to confirm cystic duct obstruction clinically indicated. LIVER: The liver is enlarged. Mild diffuse fatty infiltration is noted. No concerning liver lesion is identi fied on this non-contrast exam. PANCREAS: The main pancreatic duct is normal in size. There is no significant anatomical variant. Signal inte nsity is within normal limits. No mass is visualized on this non-contrast exam. OTHER: The remaining visualized structures demonstrate no acute abnormality on this non-contrast exam. CONCLUSION: 1. Pericholecystic fluid is noted raising the possibility of acute cholecystitis. A hepatobiliary sca n may be helpful to confirm cystic duct obstruction if clinically indicated. 2. Enlarged fatty liver. 3. No biliary ductal dilatation. Bradford Cardoso MD on November 08, 2016 at 17:25 Board Certified Radiologist. This report was verified electronically.
[2016-11-08 20:00] VITALS: BP 116/75; PULSE 76; PULSE 78; RESP 18; TEMP 97.9; O2SAT 100
[2016-11-09] VITALS: BP 134/62; PULSE 100; RESP 18; TEMP 96.4; O2SAT 98
[2016-11-09 04:00] VITALS: BP 118/79; PULSE 67; RESP 18; TEMP 96.6; O2SAT 100
[2016-11-09] MEDS: CHLORHEXIDINE GLUCONATE 2 % 1 PACK (2 CLOTHS) TOP SCH (04:00)
[2016-11-09] MEDS: MULTIVITAMIN INJ 10 ML, FOLIC ACID INJ 1 MG in SODIUM CHLORID 0.9% 500 ML INJ 500 ML IV SCH (05:55)
[2016-11-09] MEDS: cloNIDine HCL 0.2 MG TAB PO SCH ×2 (05:55→14:14)
[2016-11-09 06:49] LABS: HEMATOCRIT 32.8 % (39.0-51.0); MEAN CELL VOLUME 109.3 FL (80.0-100.0); MEAN CORPUSCULAR HEMOGLOBIN 36.2 PG (27.0-34.0); MEAN CORPUSCULAR HGB CONC 33.1 % (32.0-36.0); PLATELET COUNT 199 TH/MM3 (150-450); RED CELL DISTRIBUTION WIDTH 14.8 % (11.6-17.2); REVIEW FLAG FINAL; WHITE BLOOD COUNT 5.3 TH/MM3 (4.0-11.0)
[2016-11-09 07:16] LABS: BICARBONATE 23.1 MEQ/L (21.0-32.0); CALCIUM-PROTEIN CORRECTED 8.3 MG/DL (8.5-10.1); POTASSIUM 3.6 MEQ/L (3.5-5.1); TOTAL BILIRUBIN ADULT 0.3 MG/DL (0.2-1.0)
[2016-11-09 08:00] VITALS: BP 120/81; PULSE 68; RESP 20; TEMP 98; O2SAT 100
[2016-11-09] MEDS: levETIRAcetam 500 MG TAB PO SCH (09:44)
[2016-11-09] MEDS: ALPRAZolam 0.5 MG TAB PO SCH (09:44)
[2016-11-09] MEDS: PANTOPRAZOLE SOD 40 MG DELAYED RELEASE TAB PO SCH (09:44)
[2016-11-09] MEDS: FLUoxetine HCL 10 MG CAP PO SCH (09:44)
[2016-11-09] MEDS: THIAMINE HCL 100 MG TAB PO SCH (09:44)
[2016-11-09] MEDS: QUEtiapine FUMARATE 25 MG TAB PO SCH (09:45)
[2016-11-09] MEDS: DOCUSATE SODIUM 50 MG/SENNA 8.6 MG TAB PO SCH (09:45)
[2016-11-09] MEDS: SODIUM CHLORIDE 0.9% FLUSH 10 ML FLUSH IV FLUSH SCH (09:45)
--- NOTE | 2016-11-09 12:23 | RADRPT ---
EXAM DATE/TIME: 11/09/2016 10:07 This report includes an Addendum and supersedes previous reports for this exam. [facility] COMPARISON: MRCP W/O CONTRAST, November 08, 2016, 15:40. INDICATIONS : Abdominal pain with nausea and vomiting. DOSE: 4.1 mCi Tc99m Mebrofenin IV MEDICAL HISTORY : Gastroesophageal reflux disease. Seizures. ETOH abuse. SURGICAL HISTORY : Inguinal hernia repair. Right hand and liver biopsy. ENCOUNTER: Initial ACUITY: 1 day PAIN SCALE: 4/10 LOCATION: Right upper quadrant TECHNIQUE: Following the intravenous administration of radiotracer, dynamic sequential images were performed wit h continuous acquisition. FINDINGS: HEPATIC KINETICS: There is prompt uptake of radiotracer in the liver. No focal defects are seen. There is normal rate of washout from the hepatic parenchyma. BILIARY CLEARANCE: Activity is first seen in the extrahepatic biliary system at 40 minutes. There is normal excretion i nto the small bowel. GALLBLADDER: Activity is first seen in the gallbladder at 10 minutes. Common bile duct kinetics are normal and th ere is no evidence of biliary obstruction. BILIARY ENTRIC REFLUX: None observed. CONCLUSION: 1. The exam demonstrates a somewhat diminished ejection fraction for the gallbladder. There is approx imately 15% ejection from the gallbladder with CCK administration. 2. No findings to indicate obstruction identified. Alfredo Witt MD on November 09, 2016 at 12:18 Board Certified Radiologist. This report was verified electronically. ADDENDUM: There is an error the impression of the report. The patient did not receive CCK administration for th is examination. Alfredo Witt MD on November 10, 2016 at 13:47 Board Certified Radiologist. This report was verified electronically.
--- NOTE | 2016-11-09 13:41 | HHI.PR ---
Subjective History of Present Illness pt feels much better No N/V appetite is better /was NPO this am for Test, just ordered meal No abd pain No fever or chills No CP or SOB No cough or sputum offers no other c/o mom is at bedside Vitals/Results Intake & Output 11/08/16 11/08/16 11/09/16 15:00 23:00 07:00 Intake Total 480 ml 420 ml Balance 480 ml 420 ml Intake Oral 480 ml IV Total 420 ml # Voids 2 1 Vital Signs Vital Signs Date Time Temp Pulse Resp B/P Pulse Ox O2 Delivery O2 Flow Rate FiO2 11/09/16 08:00 98.0 68 20 120/81 100 11/09/16 04:00 96.6 67 18 118/79 100 11/09/16 00:00 96.4 100 18 134/62 98 11/08/16 20:00 97.9 76 18 116/75 100 11/08/16 20:00 78 CBC/BMP: 11/09/16 0635 11/09/16 0635 Lab Results Laboratory Tests Test 11/09/16 06:35 White Blood Count 5.3 TH/MM3 Red Blood Count 3.00 MIL/MM3 Hemoglobin 10.9 GM/DL Hematocrit 32.8 % Mean Corpuscular Volume 109.3 FL Mean Corpuscular Hemoglobin 36.2 PG Mean Corpuscular Hemoglobin 33.1 % Concent Red Cell Distribution Width 14.8 % Platelet Count 199 TH/MM3 Mean Platelet Volume 8.2 FL Sodium Level 142 MEQ/L Potassium Level 3.6 MEQ/L Chloride Level 110 MEQ/L Carbon Dioxide Level 23.1 MEQ/L Anion Gap 9 MEQ/L Blood Urea Nitrogen 2 MG/DL Creatinine 0.48 MG/DL Estimat Glomerular Filtration 205 ML/MIN Rate Random Glucose 66 MG/DL Calcium Level 7.1 MG/DL Protein Corrected Calcium 8.3 MG/DL Total Bilirubin 0.3 MG/DL Aspartate Amino Transf 285 U/L (AST/SGOT) Alanine Aminotransferase 250 U/L (ALT/SGPT) Alkaline Phosphatase 229 U/L Ammonia 61 MCMOL/L Total Protein 4.9 GM/DL Albumin 2.5 GM/DL Physical Exam General General Appearance: No Acute Distress, Comfortable Eyes Eye Exam: Pupils Equal, Sclera White, Extraocular Movement Intact Ears & Nose Ears & Nose Exam: Nasal Mucosa [place] Throat Throat Exam: Oral Mucosa [place] & Moist Neck Neck Exam: Neck Supple, Trachea Midline Pulmonary Resp Exam: Clear Bilaterally, Breath Sounds Equal Cardiology CV Exam: Regular, Normal Sinus Rhythm Gastrointestinal/Abdomen GI Exam: Soft, Non-Tender, Bowel Sounds Present Musculoskeletal MS Exam: Joints Intact Integumentary Skin Exam: Warm, Dry Extremeties Extremities Exam: No Edema, Pedal Pulses Palpable Neurologic Neuro Exam: Alert, Awake, Oriented, Speech Clear, Moving All Extremities, No Focal Deficits Psychiatric Psych Exam: Appropriate Responses VTE Prophylaxis VTE Prophylaxis Device: SCDs PUD Prophylasis PUD Prophylaxis: Protonix Assessment/Plan Problem List: (1) Alcohol abuse (2) Hypokalemia (3) Hypocalcemia (4) HTN (hypertension) (5) History of seizure (6) Bulimia nervosa (7) Depression Assessment/Plan continue with MVI, folate, Thiamine No evid of DTs, d/c CIWA electrolyte replacement as needed BMP noted ETOH counseling Acute Acoholic hepatitis /transaminitis serologic w/u neg MRCP , noted HIDA scan done , neg for Cystic duct obs , +ve Biliary dyskinesia LFTs continue to improve GI input appreciated , d/w DR Sarabia ,ok to d/c hep panel partially resulted , Neg so far continue Prozac/seroquel prn xanax close psych f/u for better control of Bulemia /induced vomiting seizure precautions continue Keppra BP better d/w PT & his mother at bedside medically stable ok to d/c home f/u pcp f/u GI & Psych Problem Qualifiers (1) HTN (hypertension): Qualified Code: I10 - Essential hypertension Toro Morales MD Nov 09, 2016 13:41
[2016-11-09] MEDS ORDERED: PANT40TA3 PO (13:47)
[2016-11-09] MEDS ORDERED: LORA-373 PO (13:56)
[2016-11-09] MEDS ORDERED: PROZ40CA PO (13:56)
[2016-11-09] MEDS: ALPRAZolam 0.25 MG TAB PO SCH (14:14)
--- NOTE | 2016-11-09 14:46 | HHI.GIFU ---
Subjective Remarks Pt being discharged, nurse going over discharge instructions. No n/v/abdominal pain. D/W patient findings on HIDA scan and recommended Low Fat Diet, No ETOH. (Elaine Hernandez) Objective Vitals I&O Vital Signs Date Time Temp Pulse Resp B/P Pulse Ox O2 Delivery O2 Flow Rate FiO2 11/09/16 08:00 98.0 68 20 120/81 100 11/09/16 04:00 96.6 67 18 118/79 100 11/09/16 00:00 96.4 100 18 134/62 98 11/08/16 20:00 97.9 76 18 116/75 100 11/08/16 20:00 78 I/O 11/08/16 11/08/16 11/08/16 11/09/16 11/09/16 11/09/16 07:00 15:00 23:00 07:00 15:00 23:00 Intake Total 480 ml 420 ml Balance 480 ml 420 ml Intake Oral 480 ml IV Total 420 ml # Voids 3 2 1 # Bowel Movements 0 Laboratory Laboratory Tests Test 11/09/16 06:35 White Blood Count 5.3 Red Blood Count 3.00 Hemoglobin 10.9 Hematocrit 32.8 Mean Corpuscular Volume 109.3 Mean Corpuscular Hemoglobin 36.2 Mean Corpuscular Hemoglobin 33.1 Concent Red Cell Distribution Width 14.8 Platelet Count 199 Mean Platelet Volume 8.2 Sodium Level 142 Potassium Level 3.6 Chloride Level 110 Carbon Dioxide Level 23.1 Anion Gap 9 Blood Urea Nitrogen 2 Creatinine 0.48 Estimat Glomerular Filtration 205 Rate Random Glucose 66 Calcium Level 7.1 Protein Corrected Calcium 8.3 Total Bilirubin 0.3 Aspartate Amino Transf 285 (AST/SGOT) Alanine Aminotransferase 250 (ALT/SGPT) Alkaline Phosphatase 229 Ammonia 61 Total Protein 4.9 Albumin 2.5 Imaging Last Impressions Hepatobiliary Scan Nuclear Medicine 11/09/16 0000 Signed Impressions: Service Date/Time: Wednesday, November 09, 2016 10:07 - CONCLUSION: 1. The exam demonstrates a somewhat diminished ejection fraction for the gallbladder. There is approximately 15%% ejection from the gallbladder with CCK administration. 2. No findings to indicate obstruction identified. Alfredo Witt MD Cholangiopancreatography MRI 11/08/16 0000 Signed Impressions: Service Date/Time: Tuesday, November 08, 2016 15:40 - CONCLUSION: 1. Pericholecystic fluid is noted raising the possibility of acute cholecystitis. A hepatobiliary scan may be helpful to confirm cystic duct obstruction if clinically indicated. 2. Enlarged fatty liver. 3. No biliary ductal dilatation. Bradford Cardoso MD Head CT 11/04/16 0000 Signed Impressions: Service Date/Time: Saturday, November 05, 2016 01:54 - CONCLUSION: Negative noncontrast head CT. Alejandro Lawson MD Physical Exam HEENT: Normocephalic; atraumatic CHEST: Resp. even/unlabored CARDIAC: RR ABDOMEN: abdomen soft, nontender EXTREMITIES: No clubbing, cyanosis, or edema. SKIN: Normal; no rash; no jaundice. 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 (Elaine Hernandez) Assessment and Plan Plan ASSESSMENT: - Elevated LFTs. Pt with hx of ETOH abuse. Stopped drinking for several months , but started drinking 3-6 drinks, 4x a week about 1.5 months ago. On the day of admission, he was under more stress than normal and started "guzzling Vodka." He was recently started on Prozac. He denies any IVDA, tattoo's, new sexual partners. He has recently had shrimp. 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 The collective findings in this biopsy are most suggestive of drug induced changes. There is no evidence of primary biliary cirrhosis. There is mild secondary siderosis as may be observed with alcohol intake. MRCP (11/08/16)----> 1. Pericholecystic fluid is noted raising the possibility of acute cholecystitis. A hepatobiliary scan may be helpful to confirm cystic duct obstruction if clinically indicated. 2. Enlarged fatty liver. 3. No biliary ductal dilatation. HIDA (11/09/16)----> 1. The exam demonstrates a somewhat diminished ejection fraction for the gallbladder. There is approximately 15% ejection from the gallbladder with CCK administration. 2. No findings to indicate obstruction identified. LFTs are trending down. T. Bili 0.3, AST 285, ALT 250, Alk Phosph 229. Needs complete ETOH cessation. AMA pending. Instructed patient on low fat diet, no etoh. - AMS. Resolved. - Anemia. 9.7/28.1. Macrocytic 106.1. Likely related to ETOH, will get B12 1613, folate > 20.0. - Nausea with hx of GERD. RESOLVED. He was previously evaluated with EGD (05/04) and this revealed gastritis, esophagitis. Pathology revealed gastric body mucosa with mild active chronic gastritis, elisa stain is negative for helicobacter, distal esophageal biopsy with squamous mucosa with no significant histopathologic abnormalities, gastric mucosa with mild to moderate chronic inflammation of the lamina propria without evidence of metaplasia or dysplasia. HIDA as above. Instructed on low fat diet. - Hypokalemia, Improved. PLAN: - Okay to d/c home - Low fat diet - No ETOH - Follow AMA level - FU NORIS 2 weeks - Pt seen and examined by Dr. Sarabia and myself and this note is written on his behalf (Elaine Hernandez) Physician Comments Seen and examined with ALEJANDRO, doing well. HIDA -ve. No ETOH recommended. GI fu upon dc. Discussed with Dr. Morales Thank you (Carole Sarabia MD) Elaine Hernandez Nov 09, 2016 14:46 Carole Sarabia MD Nov 09, 2016 15:39
--- NOTE | 2016-11-12 18:02 | HHI.DS ---
Discharge Summary Admission Date Nov 05, 2016 at 04:46 Discharge Date: Nov 09, 2016 Admitting Diagnosis Hypokalemia (1) Alcohol intoxication (2) Electrolyte abnormality (3) Hypokalemia (4) Hypocalcemia (5) HTN (hypertension) (6) History of seizure (7) Depression (8) Bulimia nervosa CBC/BMP: 11/09/16 0635 11/09/16 0635 Imaging Last Impressions Hepatobiliary Scan Nuclear Medicine 11/09/16 0000 Signed Impressions: Service Date/Time: Wednesday, November 09, 2016 10:07 - CONCLUSION: 1. The exam demonstrates a somewhat diminished ejection fraction for the gallbladder. There is approximately 15%% ejection from the gallbladder with CCK administration. 2. No findings to indicate obstruction identified. Alfredo Witt MD ADDENDUM: There is an error the impression of the report. The patient did not receive CCK administration for this examination. Alfredo Witt MD Cholangiopancreatography MRI 11/08/16 0000 Signed Impressions: Service Date/Time: Tuesday, November 08, 2016 15:40 - CONCLUSION: 1. Pericholecystic fluid is noted raising the possibility of acute cholecystitis. A hepatobiliary scan may be helpful to confirm cystic duct obstruction if clinically indicated. 2. Enlarged fatty liver. 3. No biliary ductal dilatation. Bradford Cardoso MD Head CT 11/04/16 0000 Signed Impressions: Service Date/Time: Saturday, November 05, 2016 01:54 - CONCLUSION: Negative noncontrast head CT. Alejandro Lawson MD Hospital Course This is a 31-year-old male with a PMH of Anxiety, Depression, h/o Seizure and Alcohol Abuse who was brought to the ER by EMS after being found unresponsive by Mother at home. Per EMS, pt difficult to arouse however became combative, spitting and trying to strike medics, initially in leather restraints. No history of Alcohol Abuse, however mother denies knowledge of any recent ingestion. On arrival, BP 148/101, HR 106, O2 sat 96% on RA, Afebrile. CBC with no significant findings except for MCV 103.3. K+ 2.1, s/p 20mEq K+ in ER. Ca 6.7. Urine Drug Screen positive for Benzos and Marijuana. Alcohol 473. CT Head with no acute finding.Pt admitted for: (1) Alcohol abuse (2) Hypokalemia (3) Hypocalcemia (4) HTN (hypertension) (5) History of seizure (6) Bulimia nervosa (7) Depression During the course of the hospitalization, the following took place: Started on IV fluids, with MVI, folate and thiamine. Started on CIWA protocol electrolyte replacement as needed ETOH counseling Patient was alert and The next day, pt following commands. Appropriate. No evid of DTs, d/c CIWA Acute Acoholic hepatitis /transaminitis GI consult serologic w/u neg MRCP , noted HIDA scan done , neg for Cystic duct obs , +ve Biliary dyskinesia LFTs continue to improve GI input appreciated , d/w DR Sarabia ,ok to d/c hep panel partially resulted , Neg so far Instructed to completely abstain from alcohol and follow up as outpatient for rest of workup results. continued Prozac/seroquel prn xanax close psych f/u for better control of Bulemia /induced vomiting seizure precautions continue Keppra BP better d/w PT & his mother at bedside medically stable Discharged home, instructed to follow up with GI, PCP and psychiatry Pt Condition on Discharge: Stable Discharge Disposition: Discharge Home Discharge Instructions DIET: Follow Instructions for: As Tolerated, No Restrictions Additional Diet Instructions: Avoid drinking Alcohol completely Fluid Restrictions: none Activities you can perform: Regular-No Restrictions Follow up Referrals: Gastroenterology - 2 Weeks PCP Follow-up - 1 Week Psychiatry Adult - 3 Weeks New Medications: Fluoxetine (Prozac) 40 Mg Cap 40 MG PO DAILY depression #30 Ref 0 CAP Lorazepam (Lorazepam) 0.5 Mg Tab 0.5 MG PO Q8H PRN ANXIETY #60 Ref 0 TAB Pantoprazole (Pantoprazole) 40 Mg Tab 40 MG PO DAILY gerd #30 TAB Continued Medications: Levetiracetam (Keppra) 500 Mg Tab 500 MG PO BID Control Seizures #60 Ref 0 TAB Pantoprazole (Protonix) 40 Mg Tab 40 MG PO DAILY Reflux #30 Ref 0 TAB Quetiapine (Seroquel) 25 Mg Tab 25 MG PO BID 25mg in am and 50mg in pm #60 Ref 0 TAB Discontinued Medications: Alprazolam (Xanax) 0.25 Mg Tab 0.25 MG PO DIRECTED 0.5 mg im am, 0.25mg in afternoon and 0.5mg in pm Ref 0 TAB Fluoxetine (Pmdd) (Sarafem) 10 Mg Tab 30 MG PO DAILY Kaylah Heredia Nov 12, 2016 18:02
== END 2016-11-09 14:56 | disposition home or self-care (01) | DRG 897 ==
LOC: NEPC 23:19 → NEDA 11-05 04:46 → N03A 11-05 06:00 → N05A 11-06 05:58
PROVIDERS: ADMIT Specialist; ATTEND Specialist
DX: F10.129 Alcohol abuse with intoxication, unspecified (principal); F50.2 Bulimia nervosa; K70.10 Alcoholic hepatitis without ascites; E87.6 Hypokalemia; E83.51 Hypocalcemia; I10 Essential (primary) hypertension; G40.909 Epilepsy, unspecified, not intractable, without status epilepticus; K21.9 Gastro-esophageal reflux disease without esophagitis; F32.9 Major depressive disorder, single episode, unspecified; F41.9 Anxiety disorder, unspecified; F12.90 Cannabis use, unspecified, uncomplicated; J63.4 Siderosis; D63.8 Anemia in other chronic diseases classified elsewhere; Y90.8 Blood alcohol level of 240 mg/100 ml or more; Z68.20 Body mass index [BMI] 20.0-20.9, adult
CPT/HCPCS: 70450; 74181; 76377; 78226; 80048; 80053; 80076; 80307; 82140; 82550; 82607; 82746; 82948; 83520; 83690; 83735; 84100; 84132; 84155; 85025; 85027; 85610; 86704; 86708; 86803; 87340; 87641; 93005; 96361; 96374; 96375; A9537; J0610; J2060; J2405; J3411; J3475; J3480; J7030; J7040

== ENCOUNTER 2016-12-10 12:26 | Emergency (ER) | payer BC ==
[~2016-12-10] VITALS: Ht 180.3 cm; Wt 50.0 kg
[~2016-12-10 12:26] MED LIST changes: -DOXE50CA3 PO; +LORA-373 PO; -LORA-392 PO; +PANT40TA3 PO; -POTA10CA PO; +PROZ40CA PO; +SERO25TA PO
--- NOTE | 2016-12-10 13:04 | PD ---
HPI Chief Complaint: seizure Time Seen by Provider: 13:04 Travel History International Travel<30 days: No Contact w/Intl Traveler<30days: No History of Present Illness HPI 31-year-old male presents to the emergency department via EMS for evaluation of a seizure that occurred just prior to arrival. According to EMS, the patient was a passenger in a vehicle and had a seizure for possibly 4 minutes. He was slightly confused EMS arrived. However, he is now alert and oriented answering all questions appropriately. The patient reports history of seizures. He states that he is on Keppra and lorazepam. He is taking his medications as prescribed. The patient denies any alcohol ingestion or illicit drug use. He is alert and oriented to person, place, time, situation. He has no complaints and states he feels fine. He denies any headache. He denies any chest pain or shortness of breath. No abdominal pain. No nausea, vomiting, diarrhea. Patient states he knows he has a history of seizures and does not want to stay in the hospital. The patient denies any tongue biting or incontinence. Patient denies hitting his head as he was sitting in his vehicle and this occurred. PFSH Past Medical History Arthritis: No Autoimmune Disease: No Anxiety: Yes Depression: Yes Cancer: No Cardiovascular Problems: No Cerebrovascular Accident: No Diabetes: No Diminished Hearing: No Endocrine: No Gastrointestinal Disorders: Yes (GERD) GERD: Yes Genitourinary: No Hepatitis: No Hiatal Hernia: No Hypertension: No Immune Disorder: No Musculoskeletal: Yes Neurologic: Yes Psychiatric: Yes Reproductive: No Respiratory: No Seizures: Yes Thyroid Disease: No Past Surgical History Abdominal Surgery: Yes (inguinal hernia repair) Cardiac Surgery: No Ear Surgery: No Endocrine Surgery: No Eye Surgery: No Genitourinary Surgery: No Oral Surgery: No Thoracic Surgery: No Other Surgery: Yes Social History Alcohol Use: Yes (OCC) Tobacco Use: No Substance Use: Yes Allergies-Medications (Allergen,Severity, Reaction): Coded Allergies: Sulfa (Verified Allergy, Severe, hives, 05/22/16) Reported Meds & Prescriptions Reported Meds & Active Scripts Active Prozac (Fluoxetine HCl) 40 Mg Cap 40 Mg PO DAILY Lorazepam 0.5 Mg Tab 0.5 Mg PO Q8H PRN Pantoprazole (Pantoprazole Sodium) 40 Mg Tab 40 Mg PO DAILY Reported Seroquel (Quetiapine Fumarate) 25 Mg Tab 25 Mg PO BID 25mg in am and 50mg in pm Protonix (Pantoprazole Sodium) 40 Mg Tab 40 Mg PO DAILY Keppra (Levetiracetam) 500 Mg Tab 500 Mg PO BID Review of Systems Except as stated in HPI: all other systems reviewed are Neg Physical Exam Narrative GENERAL: Well-nourished, well-developed male patient, afebrile. SKIN: Focused skin assessment warm/dry. No lacerations or abrasions. HEAD: Normocephalic. Atraumatic. EYES: No scleral icterus. No injection or drainage. NECK: Supple, trachea midline. No JVD or lymphadenopathy. CARDIOVASCULAR: Regular rate and rhythm without murmurs, gallops, or rubs. RESPIRATORY: Breath sounds equal bilaterally. No accessory muscle use. Lungs sounds are clear to auscultation GASTROINTESTINAL: Abdomen soft, non-tender, nondistended. MUSCULOSKELETAL: No cyanosis, or edema. Bilateral upper and lower extremity strength 5/5. All extremities are neurovascularly intact. BACK: Nontender without obvious deformity. No CVA tenderness. Data Data Last Documented VS Vital Signs Date Time Temp Pulse Resp B/P Pulse Ox O2 Delivery O2 Flow Rate FiO2 12/10/16 13:09 98.6 78 18 132/78 99 Room Air MDM Medical Decision Making Medical Screen Exam Complete: Yes Emergency Medical Condition: Yes Medical Record Reviewed: Yes Differential Diagnosis Breakthrough seizure versus electrolyte abnormality versus medical clearance Narrative Course 31-year-old male presents to emergency department via EMS for evaluation after a seizure. He reports history of seizures. Patient has no medical complaints at this time. He is alert and oriented to person, place, time, situation. The patient states that he does not want to have any evaluation done in the emergency department. I able to the patient that he has been admitted multiple times for electrolyte abnormalities and I do recommend that he stay for a workup to make sure that he does not have any at this time. However, he states that he feels fine and does not want to stay. He assures me that he will return if he has any worsening symptoms. The patient is leaving AGAINST MEDICAL ADVICE. AMA: The risks of leaving against medical advice without further evaluation treatment were discussed with the patient. These risks include cardiac dysfunction, cardiac dysrhythmia, possible heart attack, possible stroke or . The patient indicated understanding of these risks and appeared to have the capacity to make this decision. Diagnosis Primary Impression: Left against medical advice Additional Impression: Breakthrough seizure Disposition: 07 AGAINST MEDICAL ADVICE Mary Beth Aguirre Dec 10, 2016 13:04
[2016-12-10 13:09] VITALS: BP 132/78; PULSE 78; RESP 18; TEMP 98.6; O2SAT 99
[2016-12-10] MEDS ORDERED: LORA1TAB12 PO (14:57)
[2016-12-10] MEDS ORDERED: CARA1TAB6 PO (15:01)
[2016-12-10] MEDS ORDERED: SERO100T PO (15:11)
[2016-12-10] MEDS ORDERED: SERO25TA PO (15:11)
[2016-12-10] MEDS ORDERED: POTA-163 PO ×2 (16:25)
[2016-12-10] MEDS ORDERED: CALC1TAB87 PO (16:26)
== END 2016-12-10 21:55 | disposition left against medical advice (07) ==
LOC: NEDAMB 12:26 → NEPE 21:55
DX: R56.9 Unspecified convulsions (principal); Z53.21 Procedure and treatment not carried out due to patient leaving prior to being seen by health care provider
CPT/HCPCS: 99283

== ENCOUNTER 2016-12-10 14:36 | Emergency (ER) | payer BC ==
[~2016-12-10] VITALS: Ht 177.8 cm; Wt 65.0 kg
[2016-12-10 14:38] VITALS: BP 137/91; PULSE 80; RESP 18; TEMP 98.2; O2SAT 97
[2016-12-10] MEDS ORDERED: LORA1TAB12 PO (14:57)
[2016-12-10] MEDS ORDERED: CARA1TAB6 PO (15:01)
[2016-12-10] MEDS ORDERED: SERO100T PO (15:11)
[2016-12-10] MEDS ORDERED: SERO25TA PO (15:11)
[2016-12-10] MEDS ORDERED: LORazepam 2 MG/ML VIAL IVS ONE (15:15)
[2016-12-10] MEDS ORDERED: SODIUM CHLORIDE 0.9% FLUSH 10 ML FLUSH IVF PRN (15:15)
[2016-12-10 15:52] LABS: AUTOMATED NEUTROPHIL # 7.4 TH/MM3 (1.8-7.7); BASOPHIL % 0.4 % (0.0-2.0); EOSINOPHIL % 0.2 % (0.0-4.0); HEMATOCRIT 40.2 % (39.0-51.0); HEMO FLAGS DIFF FINAL; LYMPH % 18.8 % (9.0-44.0); LYMPHOCYTE # 1.9 TH/MM3 (1.0-4.8); MEAN CELL VOLUME 108.1 FL (80.0-100.0); MEAN CORPUSCULAR HEMOGLOBIN 35.6 PG (27.0-34.0); MEAN CORPUSCULAR HGB CONC 32.9 % (32.0-36.0); MONO % 7.5 % (0.0-8.0); NEUT % 73.1 % (16.0-70.0); PLATELET COUNT 321 TH/MM3 (150-450); RED BLOOD COUNT 3.72 MIL/MM3 (4.50-5.90); RED CELL DISTRIBUTION WIDTH 13.6 % (11.6-17.2); WHITE BLOOD COUNT 10.2 TH/MM3 (4.0-11.0)
--- NOTE | 2016-12-10 15:56 | PD ---
HPI . Seizure Chief Complaint: Seizure Time Seen by Provider: 14:40 Travel History International Travel<30 days: No Contact w/Intl Traveler<30days: No Traveled to known affect area: No History of Present Illness HPI This patient presents by private vehicle for a seizure. This patient has a known seizure disorder. He had a seizure earlier today and was brought to the emergency department refuse treatment. He signed out AMA. He had just left the department and was in the vehicle with his parents when he had another seizure. He was subsequently brought back here for evaluation. The patient is now begrudgingly agreeing to stay to get some labs done. He states that he feels fine. PFSH Past Medical History Arthritis: No Autoimmune Disease: No Anxiety: Yes Depression: Yes Cancer: No Cardiovascular Problems: No Cerebrovascular Accident: No Diabetes: No Diminished Hearing: No Endocrine: No Gastrointestinal Disorders: Yes (GERD) GERD: Yes Genitourinary: No Hepatitis: No Hiatal Hernia: No Hypertension: No Immune Disorder: No Medical other: Yes (anorexia) Musculoskeletal: Yes Neurologic: Yes Psychiatric: Yes Reproductive: No Respiratory: No Seizures: Yes Thyroid Disease: No Past Surgical History Abdominal Surgery: Yes (inguinal hernia repair) Cardiac Surgery: No Ear Surgery: No Endocrine Surgery: No Eye Surgery: No Genitourinary Surgery: No Oral Surgery: No Thoracic Surgery: No Other Surgery: Yes Social History Alcohol Use: Yes (OCC) Tobacco Use: Yes (occasional) Substance Use: Yes (marijuana occasional) Allergies-Medications (Allergen,Severity, Reaction): Coded Allergies: Sulfa (Verified Allergy, Severe, hives, 05/22/16) Reported Meds & Prescriptions Reported Meds & Active Scripts Active Prozac (Fluoxetine HCl) 40 Mg Cap 40 Mg PO DAILY Reported Seroquel (Quetiapine Fumarate) 100 Mg Tab 100 Mg PO HS Seroquel (Quetiapine Fumarate) 25 Mg Tab 25 Mg PO BID Carafate (Sucralfate) 1 Gm Tab 1 Gm PO TID On empty stomach Lorazepam 1 Mg Tab 1 Mg PO Q8H PRN Protonix (Pantoprazole Sodium) 40 Mg Tab 40 Mg PO DAILY Keppra (Levetiracetam) 500 Mg Tab 500 Mg PO BID Review of Systems Except as stated in HPI: all other systems reviewed are Neg Neurologic: Positive: Seizures Physical Exam Narrative GENERAL: Awake and alert and in no acute distress. This is a very thin, chronically ill-appearing man. SKIN: Warm and dry. HEAD: Atraumatic. Normocephalic. EYES: Pupils equal and round. Extraocular movements are intact. NECK: Trachea midline. Neck is supple. CARDIOVASCULAR: Regular rate and rhythm. RESPIRATORY: No accessory muscle use. MUSCULOSKELETAL: No obvious deformities. No edema. NEUROLOGICAL: Awake and alert. He knows his name and where he is and the circumstances of his being here. He does not know the year. No obvious cranial nerve deficits. Motor grossly within normal limits. Normal speech. PSYCHIATRIC: Appropriate mood and affect; insight and judgment normal. Data Data Last Documented VS Vital Signs Date Time Temp Pulse Resp B/P Pulse Ox O2 Delivery O2 Flow Rate FiO2 12/10/16 16:03 97 Room Air 12/10/16 14:38 98.2 80 18 137/91 Orders Complete Blood Count With Diff (12/10/16 15:11) Basic Metabolic Panel (Bmp) (12/10/16 15:11) Alcohol (Ethanol) (12/10/16 15:11) Drug Screen, Random Urine (12/10/16 15:11) Blood Glucose (12/10/16 15:11) Ecg Monitoring (12/10/16 15:11) Iv Access Insert/Monitor (12/10/16 15:11) Oximetry (12/10/16 15:11) Sodium Chloride 0.9% Flush (Ns Flush) (12/10/16 15:15) Lorazepam Inj (Ativan Inj) (12/10/16 15:15) Levetiracetam (12/10/16 15:11) Magnesium (Mg) (12/10/16 15:11) Labs Laboratory Tests Test 12/10/16 12/10/16 15:25 15:28 White Blood Count 10.2 TH/MM3 Red Blood Count 3.72 MIL/MM3 Hemoglobin 13.2 GM/DL Hematocrit 40.2 % Mean Corpuscular Volume 108.1 FL Mean Corpuscular Hemoglobin 35.6 PG Mean Corpuscular Hemoglobin 32.9 % Concent Red Cell Distribution Width 13.6 % Platelet Count 321 TH/MM3 Mean Platelet Volume 8.3 FL Neutrophils (%) (Auto) 73.1 % Lymphocytes (%) (Auto) 18.8 % Monocytes (%) (Auto) 7.5 % Eosinophils (%) (Auto) 0.2 % Basophils (%) (Auto) 0.4 % Neutrophils # (Auto) 7.4 TH/MM3 Lymphocytes # (Auto) 1.9 TH/MM3 Monocytes # (Auto) 0.8 TH/MM3 Eosinophils # (Auto) 0.0 TH/MM3 Basophils # (Auto) 0.0 TH/MM3 CBC Comment DIFF FINAL Differential Comment Sodium Level 138 MEQ/L Potassium Level 2.4 MEQ/L Chloride Level 92 MEQ/L Carbon Dioxide Level 20.4 MEQ/L Anion Gap 26 MEQ/L Blood Urea Nitrogen 13 MG/DL Creatinine 1.25 MG/DL Estimat Glomerular Filtration 68 ML/MIN Rate Random Glucose 142 MG/DL Calcium Level 8.4 MG/DL Magnesium Level 1.5 MG/DL Ethyl Alcohol Level LESS THAN 3 MG/DL Urine Opiates Screen NEG Urine Barbiturates Screen NEG Urine Amphetamines Screen NEG Urine Benzodiazepines Screen NEG Urine Cocaine Screen NEG Urine Cannabinoids Screen POS MDM Medical Decision Making Medical Screen Exam Complete: Yes Emergency Medical Condition: Yes Medical Record Reviewed: Yes (medical history is significant for alcohol abuse , hypertension, bulemia, seizures and electrolyte abnormalities which are probably related to his alcoholism and bulimia) Differential Diagnosis Differential diagnosis of seizure includes but is not limited to epilepsy, electrolyte abnormality, previous stroke, closed head injury Narrative Course This patient presents for the second time today because of the seizure. He does not want to be here. However, his mother has convinced him to stay to get some labs. CBC & BMP Diagram 12/10/16 15:25 Magnesium is normal at 1.5. Calcium is low at 8.4. Alcohol level is negative. Drug screen is positive for THC. Diagnosis Primary Impression: Breakthrough seizure Additional Impressions: Hypokalemia Hypocalcemia Patient Instructions: General Instructions, Hypocalcemia (DC), Hypokalemia (DC) , Nonepileptic Seizures (GEN) Med/Other Pt SpecificInfo: Prescription(s) given Scripts Calcium Carbonate-Cholecalciferol (Calcium 600 with Vitamin D)600-400 mg-Unit Tab1 Tab PO BID #60 TAB Ref 0 Prov:Angelica Luna MD 12/10/16 Potassium Chloride ER 20 Meq Tab40 Meq PO DAILY #30 TAB Ref 0 starting after you finish the 2 twice daily for 5 days Prov:Angelica Luna MD 12/10/16 Potassium Chloride ER 20 Meq Tab40 Meq PO BID 5 Days Ref 0 Prov:Angelica Luna MD 12/10/16 Disposition: 01 DISCHARGE HOME Condition: Stable Angelica Luna MD Dec 10, 2016 15:56
[2016-12-10 16:00] LABS: AMPHETAMINE, URINE NEG (NEG); BARBITURATES, URINE NEG (NEG); COCAINE, URINE NEG (NEG)
[2016-12-10 16:03] VITALS: O2SAT 97
[2016-12-10 16:13] LABS: ANION GAP 26 MEQ/L (5-15); BICARBONATE 20.4 MEQ/L (21.0-32.0); BLOOD UREA NITROGEN 13 MG/DL (7-18); CHLORIDE 92 MEQ/L (98-107); GLOMERULAR FILTRATION RATE 68 ML/MIN (>89); MAGNESIUM 1.5 MG/DL (1.5-2.5); SODIUM (NA) 138 MEQ/L (136-145)
[2016-12-10 16:16] LABS: POTASSIUM 2.4 MEQ/L (3.5-5.1)
[2016-12-10] MEDS ORDERED: POTA-163 PO ×2 (16:25)
[2016-12-10] MEDS ORDERED: CALC1TAB87 PO (16:26)
[2016-12-10] MEDS ORDERED: CALCIUM/VITAMIN D 250 MG/125 U TAB PO ONE (16:30)
[2016-12-10] MEDS ORDERED: POTASSIUM CHLORIDE 20 MEQ CONTROLLED RELEASE TAB PO ONE (16:30)
== END 2016-12-10 17:31 | disposition home or self-care (01) ==
LOC: NEPC 14:36
DX: G40.909 Epilepsy, unspecified, not intractable, without status epilepticus (principal); E87.6 Hypokalemia; E83.51 Hypocalcemia; F12.90 Cannabis use, unspecified, uncomplicated; Z88.2 Allergy status to sulfonamides
CPT/HCPCS: 80048; 80177; 80307; 83735; 85025; 96374; 99284; J2060

== ENCOUNTER 2017-07-16 21:29 | Emergency (ER) | payer BC, OTHER ==
[~2017-07-16] VITALS: Ht 177.8 cm; Wt 70.5 kg
[~2017-07-16 21:29] MED LIST changes: +CALC1TAB87 PO; +CARA1TAB6 PO; -LORA-373 PO; +LORA1TAB12 PO; -PANT40TA3 PO; +POTA-163 PO; +SERO100T PO
[2017-07-16 22:32] LABS: AUTOMATED NEUTROPHIL # 2.3 TH/MM3 (1.8-7.7); BASOPHIL # 0.1 TH/MM3 (0-0.2); BASOPHIL % 1.3 % (0.0-2.0); EOSINOPHIL % 0.9 % (0.0-4.0); HEMATOCRIT 31.6 % (39.0-51.0); LYMPHOCYTE # 1.7 TH/MM3 (1.0-4.8); MEAN CELL VOLUME 106.3 FL (80.0-100.0); MEAN CORPUSCULAR HGB CONC 34.8 % (32.0-36.0); MEAN PLATELET VOLUME 6.9 FL (7.0-11.0); MONO % 8.7 % (0.0-8.0); MONOCYTE # 0.4 TH/MM3 (0-0.9); NEUT % 51.1 % (16.0-70.0); PLATELET COUNT 382 TH/MM3 (150-450); RED BLOOD COUNT 2.98 MIL/MM3 (4.50-5.90); RED CELL DISTRIBUTION WIDTH 19.6 % (11.6-17.2); WHITE BLOOD COUNT 4.5 TH/MM3 (4.0-11.0)
[2017-07-16 22:33] LABS: BILIRUBIN, URINE NEG (NEG); BLOOD, URINE TRACE (NEG); GLUCOSE,URINE NEG (NEG); KETONE, URINE NEG (NEG); NITRITE,URINE NEG (NEG); URINE COLOR YELLOW (YELLW/STRAW); URINE LEUKOCYTE ESTERASE NEG (NEG)
[2017-07-16 22:59] LABS: BICARBONATE 26.8 MEQ/L (21.0-32.0); CALCIUM 6.4 MG/DL (8.5-10.1); CREATININE 1.15 MG/DL (0.60-1.30)
--- NOTE | 2017-07-16 23:04 | PD ---
HPI Chief Complaint: Psychiatric Symptoms Time Seen by Provider: 22:33 Travel History International Travel<30 days: No Contact w/Intl Traveler<30days: No Traveled to known affect area: No History of Present Illness HPI 31-year-old presents emergency department under [place] act by [employer]. Patient had gotten into a verbal argument with his mother this evening. He had stated that he would want to shoot his head off with his 9 mm. The patient states that he had said this in anger. He has no intention on hurting himself. He denies any true suicidal or homicidal ideation. Denies any toxic ingestion. Does admit to smoking marijuana and drinking alcohol. He denies any medical complaints. PFSH Past Medical History Narrative Medical Anxiety, depression, GERD Arthritis: No Autoimmune Disease: No Anxiety: Yes Depression: Yes Cancer: No Cardiovascular Problems: No Cerebrovascular Accident: No Diabetes: No Diminished Hearing: No Endocrine: No Gastrointestinal Disorders: Yes (GERD) GERD: Yes Genitourinary: No Headaches: Yes (OCCASSIONALLY ) Hepatitis: No Hiatal Hernia: No Hypertension: No Immune Disorder: No Musculoskeletal: Yes Neurologic: Yes Psychiatric: Yes Reproductive: No Respiratory: No Seizures: Yes Thyroid Disease: No Tetanus Vaccination: < 5 Years Past Surgical History Narrative Surgical Inguinal herniorrhaphy Abdominal Surgery: Yes (inguinal hernia repair) Cardiac Surgery: No Ear Surgery: No Endocrine Surgery: No Eye Surgery: No Genitourinary Surgery: No Oral Surgery: No Thoracic Surgery: No Other Surgery: Yes Social History Alcohol Use: Yes (OCC) Tobacco Use: Yes (occasional) Substance Use: Yes (Throat: Artery) Allergies-Medications (Allergen,Severity, Reaction): Coded Allergies: Sulfa (Sulfonamide Antibiotics) (Unverified Allergy, Severe, hives, ) Reported Meds & Prescriptions Reported Meds & Active Scripts Active Calcium 600 with Vitamin D (Calcium Carbonate-Cholecalciferol) 600-400 mg-Unit Tab 1 Tab PO BID Potassium Chloride ER (Potassium Chloride) 20 Meq Tab 40 Meq PO DAILY starting after you finish the 2 twice daily for 5 days Potassium Chloride ER (Potassium Chloride) 20 Meq Tab 40 Meq PO BID 5 Days Prozac (Fluoxetine HCl) 40 Mg Cap 40 Mg PO DAILY Reported Seroquel (Quetiapine Fumarate) 100 Mg Tab 100 Mg PO HS Seroquel (Quetiapine Fumarate) 25 Mg Tab 25 Mg PO BID Carafate (Sucralfate) 1 Gm Tab 1 Gm PO TID On empty stomach Lorazepam 1 Mg Tab 1 Mg PO Q8H PRN Protonix (Pantoprazole Sodium) 40 Mg Tab 40 Mg PO DAILY Keppra (Levetiracetam) 500 Mg Tab 500 Mg PO BID Review of Systems Except as stated in HPI: all other systems reviewed are Neg General / Constitutional: No: Fever Eyes: No: Visual changes HENT: No: Headaches Cardiovascular: No: Chest Pain or Discomfort Respiratory: No: Shortness of Breath Gastrointestinal: No: Abdominal Pain Genitourinary: No: Dysuria Musculoskeletal: No: Pain Skin: No Rash Neurologic: No: Weakness Psychiatric: Positive: Anxiety, Mood Disorder, Substance Abuse, No: Depression , Suicidal Ideations, Disorder of Thought, Homicidal Ideation Endocrine: No: Polydipsia Hematologic/Lymphatic: No: Easy Bruising Physical Exam Narrative GENERAL: Well-nourished, well-developed patient. SKIN: Warm and dry. HEAD: Normocephalic and atraumatic. EYES: No scleral icterus. No injection or drainage. ENT: No nasal drainage noted. Mucous membranes pink. Airway patent. NECK: Supple, trachea midline. Moves head freely without obvious discomfort. CARDIOVASCULAR: Regular rate and rhythm without murmurs, gallops, or rubs. RESPIRATORY: Breath sounds equal bilaterally. No accessory muscle use. GASTROINTESTINAL: Abdomen soft, non-tender, nondistended. EXTREMITIES: No cyanosis or edema. BACK: Nontender without obvious deformity. No CVA tenderness. NEURO: Patient is alert and oriented. no sensorimotor deficits. Nonfocal. Normal speech. PSYCH: No delusions. No auditory or visual hallucinations. Data Data Orders Orders Complete Blood Count With Diff (07/16/17 21:58) Urinalysis - C+S If Indicated (07/16/17 21:58) Drug Screen, Random Urine (07/16/17 21:58) Basic Metabolic Panel (Bmp) (07/16/17 21:58) Psych Screen (07/16/17 22:14) Labs Laboratory Tests Test 07/16/17 22:04 07/16/17 22:11 White Blood Count 4.5 TH/MM3 Red Blood Count 2.98 MIL/MM3 Hemoglobin 11.0 GM/DL Hematocrit 31.6 % Mean Corpuscular Volume 106.3 FL Mean Corpuscular Hemoglobin 37.0 PG Mean Corpuscular Hemoglobin Concent 34.8 % Red Cell Distribution Width 19.6 % Platelet Count 382 TH/MM3 Mean Platelet Volume 6.9 FL Neutrophils (%) (Auto) 51.1 % Lymphocytes (%) (Auto) 38.0 % Monocytes (%) (Auto) 8.7 % Eosinophils (%) (Auto) 0.9 % Basophils (%) (Auto) 1.3 % Neutrophils # (Auto) 2.3 TH/MM3 Lymphocytes # (Auto) 1.7 TH/MM3 Monocytes # (Auto) 0.4 TH/MM3 Eosinophils # (Auto) 0.0 TH/MM3 Basophils # (Auto) 0.1 TH/MM3 CBC Comment DIFF FINAL Differential Comment Urine Color YELLOW Urine Turbidity CLEAR Urine pH 7.0 Urine Specific [place] 1.012 Urine Protein TRACE mg/dL Urine Glucose (UA) NEG mg/dL Urine Ketones NEG mg/dL Urine Occult Blood TRACE Urine Nitrite NEG Urine Bilirubin NEG Urine Urobilinogen LESS THAN 2.0 MG/DL Urine Leukocyte Esterase NEG Urine RBC LESS THAN 1 /hpf Microscopic Urinalysis Comment CULT NOT INDICATED Urine Opiates Screen NEG Urine Barbiturates Screen NEG Urine Amphetamines Screen NEG Urine Benzodiazepines Screen NEG Urine Cocaine Screen NEG Urine Cannabinoids Screen POS MDM Medical Decision Making Medical Screen Exam Complete: Yes Emergency Medical Condition: Yes Medical Record Reviewed: Yes Differential Diagnosis MDM: High Differential diagnoses: Schizophrenia, schizoaffective disorder, bipolar, anxiety, depression, adjustment reaction, mood disorder NOS, ODD, depressive disorder NOS, dementia, dementia with agitation, psychosis NOS, substance induced mood disorder, DMDD, Asperger syndrome, infection,electrolyte abnormality, malingering. Narrative Course Mental health screening discussed with the patient. Psychiatric screen ordered. Patient's potassium is 2.8. Patient is given 40 mEq of potassium now and he will get a second dose of 40 mEq in 2 hours. The patient has been medically cleared. This is medical clearance for psychiatric admission, hypokalemia Diagnosis Primary Impression: Medical clearance for psychiatric admission Additional Impression: Hypokalemia Condition: Stable Gatito Garvey Jul 16, 2017 23:04
[2017-07-16 23:15] LABS: TOTAL PROTEIN 6.4 GM/DL (6.4-8.2)
[2017-07-16] MEDS ORDERED: POTASSIUM CHLORIDE 20 MEQ CONTROLLED RELEASE TAB PO ONE (23:15)
[2017-07-16 23:18] LABS: CALCIUM-PROTEIN CORRECTED 6.7 MG/DL (8.5-10.1)
[2017-07-16] MEDS ORDERED: CALCIUM CARBONATE 1.25 GM (CA 500 MG) TAB PO ONE (23:30)
[2017-07-17] MEDS ORDERED: POTASSIUM CHLORIDE 20 MEQ CONTROLLED RELEASE TAB PO SCH (01:00)
[2017-07-17] MEDS ORDERED: CALCIUM CARBONATE 1.25 GM (CA 500 MG) TAB PO ONE ×3 (02:00→06:30)
[2017-07-17 05:42] VITALS: BP 136/93; PULSE 91; RESP 17; TEMP 97.8; O2SAT 97
[2017-07-17 05:48] LABS: BICARBONATE 31.2 MEQ/L (21.0-32.0); CALCIUM 6.4 MG/DL (8.5-10.1); CREATININE 0.84 MG/DL (0.60-1.30)
[2017-07-17 06:00] LABS: TOTAL PROTEIN 5.8 GM/DL (6.4-8.2)
[2017-07-17] MEDS ORDERED: POTASSIUM CHLORIDE 20 MEQ CONTROLLED RELEASE TAB PO ONE (06:15)
[2017-07-17 09:02] VITALS: BP 142/100; PULSE 82; RESP 20; TEMP 98.6; O2SAT 98
[2017-07-17] MEDS ORDERED: LORazepam 2 MG TAB PO ONE (09:15)
[2017-07-17] MEDS ORDERED: levETIRAcetam 500 MG TAB PO SCH (10:00)
[2017-07-17] MEDS ORDERED: QUEtiapine FUMARATE 25 MG TAB PO SCH (11:45)
--- NOTE | 2017-07-17 13:43 | PD ---
History of Present Illness Chief Complaint: Psychiatric Symptoms Time Seen by Provider: 13:15 Travel History International Travel<30 Days: No Contact w/Intl Traveler<30days: No Known affected area: No Legal Status Legal Status: Alvarado Act Alvarado Act Signed By: Ken Roach Alvarado Act Comment: 07/16/2017 9:06 PM OFC. [facility] HU [id number] C/N [id number] History of Present Illness: History of Present Illness HPI 31-year-old who denies any previous psychiatric history, history of alcohol abuse, in context of alcohol intoxication and being involved in an argument with his parents was placed under Alvarado act by PD. The Alvarado act alleges that the patient made a comment to his mother stating he wanted to blow his head off. He did have access to 9 mm handgun earlier in the day. However his parents that he currently lives with to the handgun without his knowledge. Patient had gotten into a verbal argument with his mother this evening. He had stated that he would want to shoot his head off with his 9 mm. EMR reviewed. No previous contact with [facility] psychiatry. Current toxicology is positive for cannabinoids. Blood alcohol level on arrival was 211. Patient was allowed to sober up clinically and secure environment and presented no behavioral concerns and no suicidality. Patient seen. He is clinically sober. He is alert, oriented, calm and cooperative. Speech is clear, logical and goal-directed. There is no psychosis , no vandana or hypomania. Mood is euthymic. He denies any suicidal or homicidal ideation, intent or plan. He states that what he said was in context of an argument. He also states that he has been talking with his mother and that they have agreed that they will have 0 alcohol in the home. He admits to having been drinking and then getting into an argument with his mother. He states" I have no intention of hurting myself or hurting anyone for that matter. PFSH Past Medical History Arthritis: No Autoimmune Disease: No Anxiety: Yes Depression: Yes Cancer: No Cardiovascular Problems: No Cerebrovascular Accident: No Diabetes: No Diminished Hearing: No Endocrine: No Gastrointestinal Disorders: Yes (GERD) GERD: Yes Genitourinary: No Headaches: Yes (OCCASSIONALLY ) Hepatitis: No Hiatal Hernia: No Hypertension: No Immune Disorder: No Musculoskeletal: Yes Neurologic: Yes Psychiatric: Yes Reproductive: No Respiratory: No Seizures: Yes Thyroid Disease: No Tetanus Vaccination: < 5 Years Past Surgical History Abdominal Surgery: Yes (inguinal hernia repair) Cardiac Surgery: No Ear Surgery: No Endocrine Surgery: No Eye Surgery: No Genitourinary Surgery: No Oral Surgery: No Thoracic Surgery: No Other Surgery: Yes Psychiatric History Psychiatric History Hx Psychiatric Treatment: Patient with a noted history of anxiety. Sees Dr. Perez for outpatient care. No previous inpatient psychiatric treatment History of Inpatient Treatment: No Guns or firearms in home: Yes (they have been removed from the house and secured by the parents) Social History Single and never , lives with mother and father. Completed 3 years of college. Works as a manager inventory management. Hx Alcohol Use: Yes (OCC) Hx Tobacco Use: Yes (occasional) Hx Substance Use: Yes (marijuana, alcohol) Substance Use Type: Alcohol, Marijuana, Nicotine/Cigarettes, Prescription Medications, Benzos (Valium,Xanax), Synth Opiates-Pain Pills Hx of Substance Use Treatment: No Family Psychiatric History History of depression on his mother's side Allergies-Medications (Allergen,Severity, Reaction): Coded Allergies: Sulfa (Sulfonamide Antibiotics) (Unverified Allergy, Severe, hives, ) Reported Meds & Prescriptions Reported Meds & Active Scripts Active Calcium 600 with Vitamin D (Calcium Carbonate-Cholecalciferol) 600-400 mg-Unit Tab 1 Tab PO BID Potassium Chloride ER (Potassium Chloride) 20 Meq Tab 40 Meq PO DAILY starting after you finish the 2 twice daily for 5 days Potassium Chloride ER (Potassium Chloride) 20 Meq Tab 40 Meq PO BID 5 Days Prozac (Fluoxetine HCl) 40 Mg Cap 40 Mg PO DAILY Reported Seroquel (Quetiapine Fumarate) 100 Mg Tab 100 Mg PO HS Seroquel (Quetiapine Fumarate) 25 Mg Tab 25 Mg PO BID Carafate (Sucralfate) 1 Gm Tab 1 Gm PO TID On empty stomach Lorazepam 1 Mg Tab 1 Mg PO Q8H PRN Protonix (Pantoprazole Sodium) 40 Mg Tab 40 Mg PO DAILY Keppra (Levetiracetam) 500 Mg Tab 500 Mg PO BID Review of Systems Psychiatric: COMPLAINS OF: Anxiety Except as stated in HPI: all other systems reviewed are Neg Mental Status Examination Appearance: Appropriate Consciousness: Alert Orientation: x4 Motor Activity: Normal gait Speech: Unremarkable Language: Adequate Fund of Knowledge: Adequate Attention and Concentration: Adequate Memory: Unremarkable Mood: Appropriate Affect: Appropriate Thought Process & Associations: Intact, Logical, Goal directed Thought Content: Appropriate Hallucination Type: None Delusion Type: None Suicidal Ideation: No Suicidal Plan: No Suicidal Intention: No Homicidal Ideation: No Homicidal Plan: No Homicidal Intention: No Insight: Fair Judgment: Adequate MDM Medical Decision Making Medical Record Reviewed: Yes Assessment/Plan History of Present Illness HPI 31-year-old presents emergency department under Alvarado act by PD. Patient had gotten into a verbal argument with his mother this evening. He had stated that he would want to shoot his head off with his 9 mm. The patient states that he had said this in anger. He has no intention on hurting himself. He denies any true suicidal or homicidal ideation. The patient was monitored in secure environment he presented no behavioral concerns and no suicidality. The weapons were secure from the home. The patient has been doing medication with his mother who agrees that he is safe to go home. He is future oriented. He is very concerned about a dental appointment that he has tomorrow that he has been waiting for a long time. He is counseled on substance use more specifically alcohol use. Provided with community referrals. BA is lifted. Psychiatrically clear for discharge from the ED. Orders Orders Complete Blood Count With Diff (07/16/17 21:58) Urinalysis - C+S If Indicated (07/16/17 21:58) Drug Screen, Random Urine (07/16/17 21:58) Basic Metabolic Panel (Bmp) (07/16/17 21:58) Psych Screen (07/16/17 22:14) Protein Corrected Calcium(Pcc) (07/16/17 22:04) Potassium Chloride (Kcl) (07/16/17 23:15) Potassium Chloride (Kcl) (07/17/17 01:00) Alcohol (Ethanol) (07/16/17 23:26) Calcium Carbonate (Oscal) (07/16/17 23:30) Calcium Carbonate (Oscal) (07/17/17 02:00) Basic Metabolic Panel (Bmp) (07/17/17 06:00) Diet Regular Basic (07/17/17 Breakfast) Protein Corrected Calcium(Pcc) (07/17/17 05:09) Potassium Chloride (Kcl) (07/17/17 06:15) Calcium Carbonate (Oscal) (07/17/17 06:15) Calcium Carbonate (Oscal) (07/17/17 06:30) Lorazepam (Ativan) (07/17/17 09:15) Levetiracetam (Keppra) (07/17/17 10:00) Quetiapine (Seroquel) (07/17/17 11:45) Diet Regular Basic (07/17/17 Lunch) Results Vital Signs Date Time Temp Pulse Resp B/P (MAP) Pulse Ox O2 Delivery O2 Flow Rate FiO2 07/17/17 09:02 98.6 82 20 142/100 (114) 98 07/17/17 05:42 97.8 91 17 136/93 (107) 97 Room Air Laboratory Tests Test 07/16/17 22:04 07/16/17 22:11 07/16/17 23:45 07/17/17 05:09 White Blood Count 4.5 Red Blood Count 2.98 Hemoglobin 11.0 Hematocrit 31.6 Mean Corpuscular Volume 106.3 Mean Corpuscular Hemoglobin 37.0 Mean Corpuscular Hemoglobin Concent 34.8 Red Cell Distribution Width 19.6 Platelet Count 382 Mean Platelet Volume 6.9 Neutrophils (%) (Auto) 51.1 Lymphocytes (%) (Auto) 38.0 Monocytes (%) (Auto) 8.7 Eosinophils (%) (Auto) 0.9 Basophils (%) (Auto) 1.3 Neutrophils # (Auto) 2.3 Lymphocytes # (Auto) 1.7 Monocytes # (Auto) 0.4 Eosinophils # (Auto) 0.0 Basophils # (Auto) 0.1 CBC Comment DIFF FINAL Differential Comment Blood Urea Nitrogen 10 10 Creatinine 1.15 0.84 Random Glucose 94 75 Total Protein 6.4 5.8 Calcium Level 6.4 6.4 Sodium Level 143 144 Potassium Level 2.8 3.1 Chloride Level 104 104 Carbon Dioxide Level 26.8 31.2 Anion Gap 12 9 Estimat Glomerular Filtration Rate 75 107 Protein Corrected Calcium 6.7 7.0 Urine Color YELLOW Urine Turbidity CLEAR Urine pH 7.0 Urine Specific [place] 1.012 Urine Protein TRACE Urine Glucose (UA) NEG Urine Ketones NEG Urine Occult Blood TRACE Urine Nitrite NEG Urine Bilirubin NEG Urine Urobilinogen LESS THAN 2.0 Urine Leukocyte Esterase NEG Urine RBC LESS THAN 1 Microscopic Urinalysis Comment CULT NOT INDICATED Urine Opiates Screen NEG Urine Barbiturates Screen NEG Urine Amphetamines Screen NEG Urine Benzodiazepines Screen NEG Urine Cocaine Screen NEG Urine Cannabinoids Screen POS Ethyl Alcohol Level 211 Diagnosis Primary Impression: Alcohol use disorder, moderate, dependence Additional Impressions: Medical clearance for psychiatric admission Hypokalemia Psychiatrically Cleared: Yes Med/ Other Pt Specific Info: No Change to Meds Disposition: 01 DISCHARGE HOME Condition: Stable Problem Qualifiers Claudia Davis Jul 17, 2017 13:43
--- NOTE | 2017-07-17 14:03 | PD ---
Physical Exam Date Seen by Provider: Jul 17, 2017 Time Seen by Provider: 14:02 Narrative 31-year-old male previously medically cleared for psychiatric evaluation has been seen by psychiatric staff and deemed safe for discharge. Patient remains medically stable at this time. Follow-up will be as per psychiatric note. Data Data Last Documented VS Vital Signs Date Time Temp Pulse Resp B/P (MAP) Pulse Ox O2 Delivery O2 Flow Rate FiO2 07/17/17 09:02 98.6 82 20 142/100 (114) 98 07/17/17 05:42 Room Air Orders Orders Complete Blood Count With Diff (07/16/17 21:58) Urinalysis - C+S If Indicated (07/16/17 21:58) Drug Screen, Random Urine (07/16/17 21:58) Basic Metabolic Panel (Bmp) (07/16/17 21:58) Psych Screen (07/16/17 22:14) Protein Corrected Calcium(Pcc) (07/16/17 22:04) Potassium Chloride (Kcl) (07/16/17 23:15) Potassium Chloride (Kcl) (07/17/17 01:00) Alcohol (Ethanol) (07/16/17 23:26) Calcium Carbonate (Oscal) (07/16/17 23:30) Calcium Carbonate (Oscal) (07/17/17 02:00) Basic Metabolic Panel (Bmp) (07/17/17 06:00) Diet Regular Basic (07/17/17 Breakfast) Protein Corrected Calcium(Pcc) (07/17/17 05:09) Potassium Chloride (Kcl) (07/17/17 06:15) Calcium Carbonate (Oscal) (07/17/17 06:15) Calcium Carbonate (Oscal) (07/17/17 06:30) Lorazepam (Ativan) (07/17/17 09:15) Levetiracetam (Keppra) (07/17/17 10:00) Quetiapine (Seroquel) (07/17/17 11:45) Diet Regular Basic (07/17/17 Lunch) Labs Laboratory Tests Test 07/16/17 22:04 07/16/17 22:11 07/16/17 23:45 07/17/17 05:09 White Blood Count 4.5 TH/MM3 Red Blood Count 2.98 MIL/MM3 Hemoglobin 11.0 GM/DL Hematocrit 31.6 % Mean Corpuscular Volume 106.3 FL Mean Corpuscular Hemoglobin 37.0 PG Mean Corpuscular Hemoglobin Concent 34.8 % Red Cell Distribution Width 19.6 % Platelet Count 382 TH/MM3 Mean Platelet Volume 6.9 FL Neutrophils (%) (Auto) 51.1 % Lymphocytes (%) (Auto) 38.0 % Monocytes (%) (Auto) 8.7 % Eosinophils (%) (Auto) 0.9 % Basophils (%) (Auto) 1.3 % Neutrophils # (Auto) 2.3 TH/MM3 Lymphocytes # (Auto) 1.7 TH/MM3 Monocytes # (Auto) 0.4 TH/MM3 Eosinophils # (Auto) 0.0 TH/MM3 Basophils # (Auto) 0.1 TH/MM3 CBC Comment DIFF FINAL Differential Comment Blood Urea Nitrogen 10 MG/DL 10 MG/DL Creatinine 1.15 MG/DL 0.84 MG/DL Random Glucose 94 MG/DL 75 MG/DL Total Protein 6.4 GM/DL 5.8 GM/DL Calcium Level 6.4 MG/DL 6.4 MG/DL Sodium Level 143 MEQ/L 144 MEQ/L Potassium Level 2.8 MEQ/L 3.1 MEQ/L Chloride Level 104 MEQ/L 104 MEQ/L Carbon Dioxide Level 26.8 MEQ/L 31.2 MEQ/L Anion Gap 12 MEQ/L 9 MEQ/L Estimat Glomerular Filtration Rate 75 ML/MIN 107 ML/MIN Protein Corrected Calcium 6.7 MG/DL 7.0 MG/DL Urine Color YELLOW Urine Turbidity CLEAR Urine pH 7.0 Urine Specific [place] 1.012 Urine Protein TRACE mg/dL Urine Glucose (UA) NEG mg/dL Urine Ketones NEG mg/dL Urine Occult Blood TRACE Urine Nitrite NEG Urine Bilirubin NEG Urine Urobilinogen LESS THAN 2.0 MG/DL Urine Leukocyte Esterase NEG Urine RBC LESS THAN 1 /hpf Microscopic Urinalysis Comment CULT NOT INDICATED Urine Opiates Screen NEG Urine Barbiturates Screen NEG Urine Amphetamines Screen NEG Urine Benzodiazepines Screen NEG Urine Cocaine Screen NEG Urine Cannabinoids Screen POS Ethyl Alcohol Level 211 MG/DL [facility] Medical Record Reviewed: Yes Supervised Visit with DOT: Yes Narrative Course 31-year-old male previously medically cleared for psychiatric evaluation has been seen by psychiatric staff and deemed safe for discharge. Patient remains medically stable at this time. Follow-up will be as per psychiatric note. Diagnosis Primary Impression: Alcohol use disorder, moderate, dependence Additional Impressions: Medical clearance for psychiatric admission Hypokalemia Disposition: DISCHARGE HOME Condition: Stable Satish Colvni Jul 17, 2017 14:03
== END 2017-07-17 15:03 | disposition home or self-care (01) ==
LOC: NEPJ 21:29
DX: F10.20 Alcohol dependence, uncomplicated (principal); E87.6 Hypokalemia; F32.9 Major depressive disorder, single episode, unspecified; F41.9 Anxiety disorder, unspecified; F39 Unspecified mood [affective] disorder; K21.9 Gastro-esophageal reflux disease without esophagitis; F12.90 Cannabis use, unspecified, uncomplicated; Z72.0 Tobacco use
CPT/HCPCS: 80048; 80307; 81001; 84155; 85025; 99283

== ENCOUNTER 2017-07-27 01:18 | Observation (INO) | payer OTHER ==
[~2017-07-27] VITALS: Ht 177.8 cm; Wt 75.0 kg
[2017-07-27] VITALS (10 sets, daily range): BP systolic 130–159; BP diastolic 82–108; PULSE 72–100; RESP 15–20; TEMP 97.3–99.2; O2SAT 96–98
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
[2017-07-27 02:14] LABS: AUTOMATED NEUTROPHIL # 2.7 TH/MM3 (1.8-7.7); BASOPHIL # 0.1 TH/MM3 (0-0.2); BASOPHIL % 1.1 % (0.0-2.0); EOSINOPHIL % 0.7 % (0.0-4.0); HEMATOCRIT 37.7 % (39.0-51.0); HEMOGLOBIN 13.2 GM/DL (13.0-17.0); MEAN CELL VOLUME 109.5 FL (80.0-100.0); MEAN CORPUSCULAR HEMOGLOBIN 38.4 PG (27.0-34.0); MEAN PLATELET VOLUME 6.8 FL (7.0-11.0); MONO % 6.5 % (0.0-8.0); MONOCYTE # 0.4 TH/MM3 (0-0.9); NEUT % 43.7 % (16.0-70.0); PLATELET COUNT 563 TH/MM3 (150-450); RED BLOOD COUNT 3.44 MIL/MM3 (4.50-5.90); RED CELL DISTRIBUTION WIDTH 20.1 % (11.6-17.2); WHITE BLOOD COUNT 6.3 TH/MM3 (4.0-11.0)
[2017-07-27 02:15] LABS: BILIRUBIN, URINE NEG (NEG); BLOOD, URINE NEG (NEG); GLUCOSE,URINE NEG (NEG); KETONE, URINE NEG (NEG); NITRITE,URINE NEG (NEG); SQUAMOUS EPITHELIAL CELL URINE <1 /hpf (0-5); URINE COLOR YELLOW (YELLW/STRAW); URINE LEUKOCYTE ESTERASE NEG (NEG)
[2017-07-27 02:41] LABS: ALBUMIN 4.4 GM/DL (3.4-5.0); BICARBONATE 19.2 MEQ/L (21.0-32.0); CALCIUM 5.8 MG/DL (8.5-10.1); CREATININE 0.99 MG/DL (0.60-1.30); MAGNESIUM 1.2 MG/DL (1.5-2.5); TOTAL BILIRUBIN ADULT 0.5 MG/DL (0.2-1.0); TOTAL PROTEIN 7.5 GM/DL (6.4-8.2)
[2017-07-27 02:45] LABS: CALCIUM-PROTEIN CORRECTED 5.7 MG/DL (8.5-10.1)
[2017-07-27] MEDS ORDERED: MAGNESIUM SULFATE 1 GM PREMIX 100 ML IV ONE ×2 (03:30→20:00)
[2017-07-27] MEDS ORDERED: SODIUM CHLOR 0.9% 1000 ML INJ 1,000 ML IV ONE (03:30)
[2017-07-27] MEDS ORDERED: CALCIUM GLUCONATE INJ 1 GM in SODIUM CHLORIDE 0.9% INJ 100 ML IV ONE (04:00)
[2017-07-27] MEDS ORDERED: SODIUM CHLORIDE 0.9% FLUSH 10 ML FLUSH IV FLUSH PRN (04:30)
[2017-07-27] MEDS ORDERED: ONDANSETRON HCL 4 MG/2 ML VIAL IVP PRN (04:30)
[2017-07-27] MEDS ORDERED: NALOXONE HCL 0.4 MG/ML AMP IV PUSH PRN (04:30)
[2017-07-27] MEDS ORDERED: ACETAMINOPHEN 325 MG TAB PO PRN (04:30)
--- NOTE | 2017-07-27 05:05 | HHI.HP ---
HPI Service [facility] Primary Care Physician No Primary Care Physician Admission Diagnosis Electrolyte abnormality, intoxication Diagnoses: (1) Alcohol intoxication (2) Alcohol abuse Chief Complaint: Alvarado act Alcohol intoxication Travel History International Travel<30 Days: No Contact w/Intl Traveler <30 Da: No Traveled to Known Affected Are: No History of Present Illness This is a 31-year-old male patient with a known medical history of alcohol abuse , history of electrolyte abnormalities, seizure disorder, depression, anxiety and GERD who is brought into the ED under Alvarado act. Supposedly patient was drinking alcohol this afternoon when he reportedly went to his mother's room requesting that she make him dinner, when she refused due to trying to sleep patient became belligerent and combative. Patient lives at home with his mother and father. He reportedly does not work due to seizure disorder. Denies any recent illness including fever, chills, cough, shortness of breath, chest pain, abdominal pain, nausea, vomiting or diarrhea or dysuria. Has been seeing psychiatrist in the outpatient setting for management of his psychiatric disorders. Patient presented with severe hypocalcemia and hypomagnesemia. Ethyl alcohol level is 307. Drug tox screen positive for cannabis. Records reviewed showing admission last October for electrolyte abnormalities. At the time of assessment patient denies any suicidal or homicidal ideation. Denies any intention of hurting himself. Review of Systems Constitutional: DENIES: Fever, Chills Eyes: DENIES: Blurred vision, Diplopia Respiratory: DENIES: Cough, Sputum production, Shortness of breath Cardiovascular: DENIES: Chest pain Gastrointestinal: DENIES: Abdominal pain, Black stools, Bloody stools, Constipation, Diarrhea, Nausea, Vomiting Musculoskeletal: DENIES: Joint pain Immunologic/allergic: DENIES: Eczema Psychiatric: COMPLAINS OF: Anxiety, Mood changes, Depression, Agitation Except as stated in HPI: all other systems reviewed are Neg Past Family Social History Past Medical History Alcohol abuse Seizure disorder Anxiety and depression GERD Past Surgical History Inguinal hernia repair Reported Medications Active Calcium 600 with Vitamin D (Calcium Carbonate-Cholecalciferol) 600-400 mg-Unit Tab 1 Tab PO BID Potassium Chloride ER (Potassium Chloride) 20 Meq Tab 40 Meq PO DAILY starting after you finish the 2 twice daily for 5 days Potassium Chloride ER (Potassium Chloride) 20 Meq Tab 40 Meq PO BID 5 Days Prozac (Fluoxetine HCl) 40 Mg Cap 40 Mg PO DAILY Reported Seroquel (Quetiapine Fumarate) 100 Mg Tab 100 Mg PO HS Seroquel (Quetiapine Fumarate) 25 Mg Tab 25 Mg PO BID Carafate (Sucralfate) 1 Gm Tab 1 Gm PO TID On empty stomach Lorazepam 1 Mg Tab 1 Mg PO Q8H PRN Protonix (Pantoprazole Sodium) 40 Mg Tab 40 Mg PO DAILY Keppra (Levetiracetam) 500 Mg Tab 500 Mg PO BID Allergies: Coded Allergies: Sulfa (Sulfonamide Antibiotics) (Unverified Allergy, Severe, hives, ) Active Ordered Medications Current Medications Medications (Trade) Dose Ordered Sig/Efren Route Start Time Stop Time Status Last Admin Calcium Gluconate 1 gm/Sodium Chloride 110 ml @ 110 mls/hr ONCE ONCE IV 07/27/17 04:00 07/27/17 04:59 Sodium Chloride 1,000 ml @ 100 mls/hr Q10H IV 07/27/17 04:18 (NS Flush) 2 ml UNSCH PRN IV FLUSH 07/27/17 04:30 (NS Flush) 2 ml BID IV FLUSH 07/27/17 09:00 (Tylenol) 650 mg Q4H PRN PO 07/27/17 04:30 (Zofran Inj) 4 mg Q6H PRN IVP 07/27/17 04:30 (Narcan Inj) 0.4 mg UNSCH PRN IV PUSH 07/27/17 04:30 Family History Denies any significant family medical history. Social History Does admit to smoking 3 cigarettes a day, admits to occasional alcohol use and admits to occasional marijuana use. Physical Exam Vital Signs Vital Signs Date Time Temp Pulse Resp B/P (MAP) Pulse Ox O2 Delivery O2 Flow Rate FiO2 07/27/17 04:16 16 97 Room Air 07/27/17 01:38 98.6 95 20 142/99 (113) 96 Physical Exam GENERAL: Well-developed, well-nourished patient in NAD. SKIN: Warm and dry. No rash. HEAD: Normocephalic. Atraumatic. EYES: Pupils equal and round. No scleral icterus. No injection or drainage. ENT: No nasal bleeding or discharge. Mucous membranes pink and moist. NECK: Supple. Trachea midline. CARDIOVASCULAR: Regular rate and rhythm. S1, S2 noted. No murmur appreciated. RESPIRATORY: No accessory muscle use. Clear to auscultation. Breath sounds equal bilaterally. GASTROINTESTINAL: Abdomen soft, non-tender, nondistended. Normoactive bowel sounds x4. MUSCULOSKELETAL: No obvious deformities. Extremities without clubbing, cyanosis , or edema. NEUROLOGICAL: Awake and alert. No obvious cranial nerve deficits. Motor grossly within normal limits. 5/5 muscle strength in bilateral upper and lower extremities. Normal speech. PSYCHIATRIC: Appropriate mood and affect; insight and judgment normal. Laboratory Laboratory Tests Test 07/27/17 02:00 White Blood Count 6.3 Red Blood Count 3.44 Hemoglobin 13.2 Hematocrit 37.7 Mean Corpuscular Volume 109.5 Mean Corpuscular Hemoglobin 38.4 Mean Corpuscular Hemoglobin Concent 35.0 Red Cell Distribution Width 20.1 Platelet Count 563 Mean Platelet Volume 6.8 Neutrophils (%) (Auto) 43.7 Lymphocytes (%) (Auto) 48.0 Monocytes (%) (Auto) 6.5 Eosinophils (%) (Auto) 0.7 Basophils (%) (Auto) 1.1 Neutrophils # (Auto) 2.7 Lymphocytes # (Auto) 3.0 Monocytes # (Auto) 0.4 Eosinophils # (Auto) 0.0 Basophils # (Auto) 0.1 CBC Comment DIFF FINAL Differential Comment Urine Color YELLOW Urine Turbidity CLEAR Urine pH 6.0 Urine Specific [place] 1.016 Urine Protein TRACE Urine Glucose (UA) NEG Urine Ketones NEG Urine Occult Blood NEG Urine Nitrite NEG Urine Bilirubin NEG Urine Urobilinogen LESS THAN 2.0 Urine Leukocyte Esterase NEG Urine RBC LESS THAN 1 Urine Squamous Epithelial Cells <1 Microscopic Urinalysis Comment CULT NOT INDICATED Blood Urea Nitrogen 9 Creatinine 0.99 Random Glucose 86 Total Protein 7.5 Albumin 4.4 Calcium Level 5.8 Magnesium Level 1.2 Alkaline Phosphatase 121 Aspartate Amino Transf (AST/SGOT) 95 Alanine Aminotransferase (ALT/SGPT) 83 Total Bilirubin 0.5 Sodium Level 147 Potassium Level 3.7 Chloride Level 112 Carbon Dioxide Level 19.2 Anion Gap 16 Estimat Glomerular Filtration Rate 89 Protein Corrected Calcium 5.7 Thyroid Stimulating Hormone 3rd Gen 0.781 Urine Opiates Screen NEG Urine Barbiturates Screen NEG Urine Amphetamines Screen NEG Urine Benzodiazepines Screen NEG Urine Cocaine Screen NEG Urine Cannabinoids Screen POS Ethyl Alcohol Level 307 Result Diagram: 07/27/1719907/27/17199 Septic Shock Reassessment Septic shock perfusion: reassessment completed Caprini VTE Risk Assessment Caprini VTE Risk Assessment: No/Low Risk (score <= 1) Caprini Risk Assessment Model Point Value = 1 Point Value = 2 Point Value = 3 Point Value = 5 Age 41-60 Minor surgery BMI > 25 kg/m2 Swollen legs Varicose veins or History of unexplained or recurrent spontaneous Oral contraceptives or hormone replacement Sepsis (< 1 month) Serious lung disease, including pneumonia (< 1 month) Abnormal pulmonary function Acute myocardial infarction Congestive heart failure (< 1 month) History of inflammatory bowel disease Medical patient at bed rest Age 61-74 Arthroscopic surgery Major open surgery (> 45 min) Laparoscopic surgery (> 45 min) Malignancy Confined to bed (> 72 hours) Immobilizing plaster cast Central venous access Age >= 75 History of VTE Family history of VTE Factor V Leiden Prothrombin [id number] Lupus anticoagulant Anticardiolipin antibodies Elevated serum homocysteine Heparin-induced thrombocytopenia Other congenital or acquired thrombophilia Stroke (< 1 month) Elective arthroplasty Hip, pelvis, or leg fracture Acute spinal cord injury (< 1 month) Prophylaxis Regimen Total Risk Factor Score Risk Level Prophylaxis Regimen 0-1 Low Early ambulation 2 Moderate Order ONE of the following: *Sequential Compression Device (SCD) *Heparin 5000 units SQ BID 3-4 Higher Order ONE of the following medications: *Heparin 5000 units SQ TID *Enoxaparin/Lovenox 40 mg SQ daily (WT < 150 kg, CrCl > 30 mL/min) *Enoxaparin/Lovenox 30 mg SQ daily (WT < 150 kg, CrCl > 10-29 mL/min) *Enoxaparin/Lovenox 30 mg SQ BID (WT < 150 kg, CrCl > 30 mL/min) AND/OR *Sequential Compression Device (SCD) 5 or more Highest Order ONE of the following medications: *Heparin 5000 units SQ TID (Preferred with Epidurals) *Enoxaparin/Lovenox 40 mg SQ daily (WT < 150 kg, CrCl > 30 mL/min) *Enoxaparin/Lovenox 30 mg SQ daily (WT < 150 kg, CrCl > 10-29 mL/min) *Enoxaparin/Lovenox 30 mg SQ BID (WT < 150 kg, CrCl > 30 mL/min) AND *Sequential Compression Device (SCD) Assessment and Plan Problem List: (1) Alcohol intoxication ICD Code: F10.929 - Alcohol use, unspecified with intoxication, unspecified Status: Acute (2) Hypocalcemia ICD Code: E83.51 - Hypocalcemia Status: Acute (3) Hypomagnesemia ICD Code: E83.42 - Hypomagnesemia Status: Acute (4) Alcohol abuse ICD Code: F10.10 - Alcohol abuse, uncomplicated Status: Acute Assessment and Plan This is a 31-year-old male patient with a known medical history of alcohol abuse , history of electrolyte abnormalities, seizure disorder, depression, anxiety and GERD who is brought into the ED under Alvarado act. Supposedly patient was drinking alcohol this afternoon when he reportedly went to his mother's room requesting that she make him dinner, when she refused due to trying to sleep patient became belligerent and combative. Alcohol intoxication with behavioral disturbance under Alvarado act Transaminase suspect secondary to above Ethyl alcohol 307. AST 95, ALT 83, alkaline phosphatase 121. Psychiatry consulted, appreciate further input and recommendations. Continue home Seroquel dose and fluoxetine. 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 Protein corrected calcium 5.7. Sodium 147. Given 1 g IV magnesium and 1 g IV calcium in the ED. Recheck BMP, calcium and magnesium today. Follow. Continue IV fluid. Encourage p.o. intake. Seizure disorder: Continue Keppra. Seizure precautions. Obtain Keppra level. Follow. GERD: Continue Carafate and PPI. DVT prophylaxis: SCDs. Problem Qualifiers (1) Alcohol intoxication: Qualified Codes: F10.920 - Alcohol use, unspecified with intoxication, uncomplicated Jazmyne Barrett Jul 27, 2017 05:05
[2017-07-27] MEDS: SODIUM CHLOR 0.9% 1000 ML INJ 1,000 ML IV SCH ×2 (05:33→14:11)
[2017-07-27] MEDS: THIAMINE HCL 100 MG TAB PO SCH (08:00)
[2017-07-27] MEDS: FOLIC ACID 1 MG TAB PO SCH (08:01)
[2017-07-27] MEDS: levETIRAcetam 500 MG TAB PO SCH ×2 (08:51→20:19)
[2017-07-27] MEDS: FLUoxetine HCL 20 MG CAP PO SCH (08:51)
[2017-07-27] MEDS: SUCRALFATE 1 GM TAB PO SCH ×3 (08:51→17:41)
[2017-07-27] MEDS: PANTOPRAZOLE SOD 40 MG DELAYED RELEASE TAB PO SCH (08:51)
[2017-07-27] MEDS: SODIUM CHLORIDE 0.9% FLUSH 10 ML FLUSH IV FLUSH SCH ×2 (08:52→20:18)
[2017-07-27] MEDS: QUEtiapine FUMARATE 25 MG TAB PO SCH ×2 (08:52→20:19)
[2017-07-27] MEDS ORDERED: CALCIUM/VITAMIN D 250 MG/125 U TAB PO SCH (09:00)
--- NOTE | 2017-07-27 13:15 | HHI.PR ---
Subjective Remarks Follow-up visit EtOH, seizure disorder. Patient seen and examined today sitting in bed. Reports he is doing well. States that his Alvarado act has been lifted by psychiatry States that he had made by choices especially of binge drinking. Patient states that he does not have alcohol problems. He does not drink every day. He also does not binge drink. Discuss with patient results of labs. Denies pain and discomfort. Denies SOB/ dyspnea. Denies chest pain, palpitations, headaches, dizziness. Denies fevers, chills, n/v/d. Denies dysuria. Objective Vitals Vital Signs Date Time Temp Pulse Resp B/P (MAP) Pulse Ox O2 Delivery O2 Flow Rate FiO2 07/27/17 12:32 07/27/17 09:21 98.1 90 16 142/96 (111) 98 Room Air 07/27/17 05:37 84 16 130/82 (98) 98 Room Air 07/27/17 04:16 16 97 Room Air 07/27/17 01:38 98.6 95 20 142/99 (113) 96 I/O 07/26/17 07/26/17 07/26/17 07/27/17 07/27/17 07/27/17 07:00 15:00 23:00 07:00 15:00 23:00 Intake Total 500 ml Balance 500 ml Intake Oral 500 ml # Voids 2 Result Diagram: 07/27/17 0200 07/27/17 0200 Objective Remarks GENERAL: This is a well-nourished, well-developed patient, in no apparent distress. SKIN: Warm and dry HEENT: Normocephalic. Pupils equal round and reactive. Nose without bleeding. Airway patent. NECK: Trachea midline. CARDIOVASCULAR: Regular rate and rhythm without murmurs, gallops, or rubs. RESPIRATORY: Clear to auscultation. Breath sounds equal bilaterally. No wheezes , rales, or rhonchi. GASTROINTESTINAL: Abdomen soft, non-tender, nondistended. Bowel Sounds normoactive x4. MUSCULOSKELETAL: Extremities without clubbing, cyanosis, or edema. NEUROLOGICAL: Awake and alert. Oriented to time, place, person. No focal neuro deficit. Moves all extremities. Normal speech. Procedures None A/P Problem List: (1) Alcohol intoxication ICD Code: F10.929 - Alcohol use, unspecified with intoxication, unspecified Status: Acute (2) Hypocalcemia ICD Code: E83.51 - Hypocalcemia Status: Acute (3) Hypomagnesemia ICD Code: E83.42 - Hypomagnesemia Status: Acute (4) Alcohol abuse ICD Code: F10.10 - Alcohol abuse, uncomplicated Status: Acute Assessment and Plan 31-year-old male patient with a known medical history of alcohol abuse, history of electrolyte abnormalities, seizure disorder, depression, anxiety and GERD who is brought into the ED under Alvarado act. Alcohol intoxication with behavioral disturbance under Alvarado act Transaminase suspect secondary to above - Ethyl alcohol 307. AST 95, ALT 83, alkaline phosphatase 121. - Psychiatry consulted, appreciate further input and recommendations. - Continue home Seroquel dose and fluoxetine. - BA lifted? 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 Protein corrected calcium 5.7. Sodium 147. - 1 g IV magnesium and 1 g IV calcium in the ED. - Recheck BMP, calcium and magnesium, follow up results. - Continue IV fluid. Encourage p.o. intake. - If corrected, ad clinically stable, will DC zohreh. Aggreable Seizure disorder: Continue Keppra. Seizure precautions. GERD: Continue Carafate and PPI. DVT prophylaxis: SCDs. Problem Qualifiers (1) Alcohol intoxication: Qualified Codes: F10.920 - Alcohol use, unspecified with intoxication, uncomplicated Stacia Purvis Jul 27, 2017 13:15
--- NOTE | 2017-07-27 14:24 | PD.PSY.CON ---
Provisional Diagnosis Admission Date Jul 27, 2017 at 04:20 [place] I. Alcohol induced mood disorder, alcohol use disorder, history of anxiety, cannabis use disorder [place] II. Deferred [place] III. No significant medical history History of Present Illness Service Psychiatry Consult Requested By ER Reason for Consult On the act Primary Care Physician No Primary Care Physician HPI The patient is a 31-year-old man, domicile with his parents, unemployed, single, with psychiatric history of anxiety, alcohol and cannabis use disorder, multiple ER visits with alcohol related problems, no previous psychiatric hospitalizations, previous suicidal attempts, he has an established outpatient psychiatric care with Dr. Calle, he is on Ativan 1 mg 3 times a day, Seroquel 50 mg twice a day, medical history of seizures, alcohol withdrawal, GERD who is brought into the ED under act. Supposedly patient was drinking alcohol this afternoon when he reportedly went to his mother's room requesting that she make him dinner, when she refused due to trying to sleep patient became belligerent and combative. Patient presented with severe hypocalcemia and hypomagnesemia. Ethyl alcohol level is 307. Drug tox screen positive for cannabis. Records reviewed showing admission last October for electrolyte abnormalities. On psychiatric evaluation the patient is calm, cooperative, pleasant, and I depressive symptoms, he denies anxiety, he denies suicidal and homicidal ideation, he denies visual and auditory hallucinations. The patient is fully oriented 3, he is clinically sober, no withdrawal present. Review of Systems Constitutional: DENIES: Diaphoretic episodes, Fatigue, Fever, Weight gain, Weight loss, Chills, Dizziness, Change in appetite, Night Sweats Endocrine: DENIES: Heat/cold intolerance, Polydipsia, Polyuria, Polyphagia Eyes: DENIES: Blurred vision, Diplopia, Eye inflammation, Eye pain, Vision loss , Photosensitivity, Double Vision Ears, nose, mouth, throat: DENIES: Tinnitus, Hearing loss, Vertigo, Nasal discharge, Oral lesions, Throat pain, Hoarseness, Ear Pain, Running Nose, Epistaxis, Sinus Pain, Toothache, Odynophagia Respiratory: DENIES: Apneas, Cough, Snoring, Wheezing, Hemoptysis, Sputum production, Shortness of breath Cardiovascular: DENIES: Chest pain, Palpitations, Syncope, Dyspnea on Exertion , PND, Lower Extremity Edema, Orthopnea, Claudication Gastrointestinal: DENIES: Abdominal pain, Black stools, Bloody stools, Constipation, Diarrhea, Nausea, Vomiting, Difficulty Swallowing, Anorexia Genitourinary: DENIES: Sexual dysfunction, Urinary frequency, Urinary incontinence, Urgency, Hematuria, Dysuria, Nocturia, Penile Discharge, Testicular Pain, Testicular Swelling Musculoskeletal: DENIES: Joint pain, Muscle aches, Stiffness, Joint Swelling, Back pain, Neck pain Integumentary: DENIES: Abnormal pigmentation, Nail changes, Pruritus, Rash Hematologic/lymphatic: DENIES: Bruising, Lymphadenopathy Immunologic/allergic: DENIES: Eczema, Urticaria Neurologic: DENIES: Abnormal gait, Headache, Localized weakness, Paresthesias, Seizures, Speech Problems, Tremor, Poor Balance Psychiatric: DENIES: Anxiety, Confusion, Mood changes, Depression, Hallucinations, Agitation, Suicidal Ideation, Homicidal Ideation, Delusions Past Family Social History Coded Allergies: Sulfa (Sulfonamide Antibiotics) (Unverified Allergy, Severe, hives, ) Active Scripts Calcium Carbonate-Cholecalciferol (Calcium 600 with Vitamin D) 600-400 mg-Unit Tab, 1 TAB PO BID for Calcium Supplement, #60 TAB 0 Refills Prov:Angelica Luna MD 12/10/16 Potassium Chloride ER (Potassium Chloride ER) 20 Meq Tab, 40 MEQ PO DAILY for Electrolyte Replacement, #30 TAB 0 Refills starting after you finish the 2 twice daily for 5 days Prov:Angelica Luna MD 12/10/16 Potassium Chloride ER (Potassium Chloride ER) 20 Meq Tab, 40 MEQ PO BID for Electrolyte Replacement for 5 Days, TAB 0 Refills Prov:Angelica Luna MD 12/10/16 Fluoxetine (Prozac) 40 Mg Cap, 40 MG PO DAILY for depression, #30 CAP 0 Refills Prov:Toro Morales MD 11/09/16 Reported Medications Quetiapine (Seroquel) 100 Mg Tab, 100 MG PO HS, #30 TAB 0 Refills 12/10/16 Quetiapine (Seroquel) 25 Mg Tab, 25 MG PO BID, #60 TAB 0 Refills 12/10/16 Sucralfate (Carafate) 1 Gm Tab, 1 GM PO TID for Ulcer Prevention, #90 TAB 0 Refills On empty stomach 12/10/16 Lorazepam (Lorazepam) 1 Mg Tab, 1 MG PO Q8H Y for ANXIETY, TAB 0 Refills 12/10/16 Pantoprazole (Protonix) 40 Mg Tab, 40 MG PO DAILY for Reflux, #30 TAB 0 Refills 05/02/16 Levetiracetam (Keppra) 500 Mg Tab, 500 MG PO BID for Control Seizures, #60 TAB 0 Refills 05/02/16 Current Medications Medications (Trade) Dose Ordered Sig/Efren Route Start Time Stop Time Status Last Admin Sodium Chloride 1,000 ml @ 100 mls/hr Q10H IV 07/27/17 04:18 07/27/17 14:11 (NS Flush) 2 ml UNSCH PRN IV FLUSH 07/27/17 04:30 (NS Flush) 2 ml BID IV FLUSH 07/27/17 09:00 (Tylenol) 650 mg Q4H PRN PO 07/27/17 04:30 (Zofran Inj) 4 mg Q6H PRN IVP 07/27/17 04:30 (Narcan Inj) 0.4 mg UNSCH PRN IV PUSH 07/27/17 04:30 (Oscal-D 250-125) 1 mg BID PO 07/27/17 09:00 07/27/17 08:51 (Keppra) 500 mg BID PO 07/27/17 09:00 07/27/17 08:51 (Protonix) 40 mg DAILY PO 07/27/17 09:00 07/27/17 08:51 (SEROquel) 25 mg BID PO 07/27/17 09:00 07/27/17 08:52 (SEROquel) 100 mg HS PO 07/27/17 21:00 (Carafate) 1 gm TIDAC PO 07/27/17 08:00 07/27/17 12:20 (PROzac) 40 mg DAILY PO 07/27/17 09:00 07/27/17 08:51 (Folate) 1 mg DAILY PO 07/27/17 09:00 07/27/17 08:01 (Vitamin B1) 100 mg DAILY PO 07/27/17 09:00 07/27/17 08:00 (Flu (Quadrivalent) Vaccine Inj) 0.5 ml ONCE ONCE IM 07/28/17 10:00 07/28/17 10:01 Family Psych History No family psychiatric history Social History The patient was born and raised in [place], he lives with his parents in [facility], unemployed, single, college graduate Physical Exam Vital Signs Vital Signs Date Time Temp Pulse Resp B/P (MAP) Pulse Ox O2 Delivery O2 Flow Rate FiO2 07/27/17 13:30 98.4 91 18 151/95 (113) 98 07/27/17 09:21 Room Air I/O 07/27/17 07/27/17 07/28/17 08:00 16:00 00:00 Intake Total 500 ml Balance 500 ml Lab Results Test 07/27/17 02:00 07/27/17 10:20 07/27/17 13:51 White Blood Count 6.3 TH/MM3 Red Blood Count 3.44 MIL/MM3 Hemoglobin 13.2 GM/DL Hematocrit 37.7 % Mean Corpuscular Volume 109.5 FL Mean Corpuscular Hemoglobin 38.4 PG Mean Corpuscular Hemoglobin Concent 35.0 % Red Cell Distribution Width 20.1 % Platelet Count 563 TH/MM3 Mean Platelet Volume 6.8 FL Neutrophils (%) (Auto) 43.7 % Lymphocytes (%) (Auto) 48.0 % Monocytes (%) (Auto) 6.5 % Eosinophils (%) (Auto) 0.7 % Basophils (%) (Auto) 1.1 % Neutrophils # (Auto) 2.7 TH/MM3 Lymphocytes # (Auto) 3.0 TH/MM3 Monocytes # (Auto) 0.4 TH/MM3 Eosinophils # (Auto) 0.0 TH/MM3 Basophils # (Auto) 0.1 TH/MM3 CBC Comment DIFF FINAL Differential Comment Urine Color YELLOW Urine Turbidity CLEAR Urine pH 6.0 Urine Specific [place] 1.016 Urine Protein TRACE mg/dL Urine Glucose (UA) NEG mg/dL Urine Ketones NEG mg/dL Urine Occult Blood NEG Urine Nitrite NEG Urine Bilirubin NEG Urine Urobilinogen LESS THAN 2.0 MG/DL Urine Leukocyte Esterase NEG Urine RBC LESS THAN 1 /hpf Urine Squamous Epithelial Cells <1 /hpf Microscopic Urinalysis Comment CULT NOT INDICATED Blood Urea Nitrogen 9 MG/DL Creatinine 0.99 MG/DL Random Glucose 86 MG/DL Total Protein 7.5 GM/DL Albumin 4.4 GM/DL Calcium Level 5.8 MG/DL Magnesium Level 1.2 MG/DL Alkaline Phosphatase 121 U/L Aspartate Amino Transf (AST/SGOT) 95 U/L Alanine Aminotransferase (ALT/SGPT) 83 U/L Total Bilirubin 0.5 MG/DL Sodium Level 147 MEQ/L Potassium Level 3.7 MEQ/L Chloride Level 112 MEQ/L Carbon Dioxide Level 19.2 MEQ/L Anion Gap 16 MEQ/L Estimat Glomerular Filtration Rate 89 ML/MIN Protein Corrected Calcium 5.7 MG/DL Thyroid Stimulating Hormone 3rd Gen 0.781 uIU/ML Urine Opiates Screen NEG Urine Barbiturates Screen NEG Urine Amphetamines Screen NEG Urine Benzodiazepines Screen NEG Urine Cocaine Screen NEG Urine Cannabinoids Screen POS Ethyl Alcohol Level 307 MG/DL Mental Status Examination Appearance: Appropriate Consciousness: Alert Orientation: x4 Motor Activity: Normal gait Speech: Unremarkable Language: Adequate Fund of Knowledge: Adequate Attention and Concentration: Adequate Memory: Unremarkable Mood: Appropriate Affect: Appropriate Thought Process & Associations: Intact Thought Content: Appropriate Hallucination Type: None Delusion Type: None Suicidal Ideation: No Suicidal Plan: No Suicidal Intention: No Homicidal Ideation: No Homicidal Plan: No Homicidal Intention: No Insight: Adequate Judgment: Adequate Assessment & Plan Problem List: (1) Alcohol abuse with alcohol-induced mood disorder ICD Codes: F10.14 - Alcohol abuse with alcohol-induced mood disorder Assessment & Plan: On psychiatric evaluation today the patient does not present any evidence of depression, anxiety, vandana or psychosis. The patient denies suicidal and homicidal ideation, he denies visual and auditory hallucinations. He is not clinically sober. He expresses regrets and remorse regarding his recent actions. He does not meet criteria for involuntary psychiatric admission at this moment. Assessment & Plan Estimated LOS: Yash Garcia MD Jul 27, 2017 14:24
[2017-07-27 15:02] LABS: CALCIUM 6.6 MG/DL (8.5-10.1); CREATININE 0.74 MG/DL (0.60-1.30)
[2017-07-27 15:51] LABS: TOTAL PROTEIN 6.5 GM/DL (6.4-8.2)
[2017-07-27 16:23] LABS: CALCIUM-PROTEIN CORRECTED 6.9 MG/DL (8.5-10.1)
[2017-07-27] MEDS: MAGNESIUM SULFATE 1 GM PREMIX 100 ML IV SCH ×2 (17:48→18:45)
[2017-07-27] MEDS ORDERED: CALCIUM GLUCONATE INJ 2 GM in DEXTROSE 5% IN WATER 100ML INJ 100 ML IV ONE ×2 (18:00)
--- NOTE | 2017-07-27 18:32 | PD.CONS ---
HPI Service Nephrology Consult Requested By Dr. Serrano Reason for Consult Electrolyte imbalance Primary Care Physician No Primary Care Physician History of Present Illness Patient is a 31-year-old white male who stated that he has been drinking heavily 6 glasses of vodka daily and he felt weak tired and as he was demanding to make dinner and when the mother refused he became belligerent and then agitated and has to be Alvarado acted and admitted he was found to have hypocalcemia and hypomagnesemia. Review of Systems Constitutional: COMPLAINS OF: Fatigue Endocrine: DENIES: Heat/cold intolerance, Polydipsia, Polyuria, Polyphagia Eyes: DENIES: Blurred vision, Diplopia, Eye inflammation, Eye pain, Vision loss , Photosensitivity, Double Vision Ears, nose, mouth, throat: DENIES: Tinnitus, Hearing loss, Vertigo, Nasal discharge, Oral lesions, Throat pain, Hoarseness, Ear Pain, Running Nose, Epistaxis, Sinus Pain, Toothache, Odynophagia Respiratory: DENIES: Apneas, Cough, Snoring, Wheezing, Hemoptysis, Sputum production, Shortness of breath Cardiovascular: DENIES: Chest pain, Palpitations, Syncope, Dyspnea on Exertion , PND, Lower Extremity Edema, Orthopnea, Claudication Gastrointestinal: DENIES: Abdominal pain, Black stools, Bloody stools, Constipation, Diarrhea, Nausea, Vomiting, Difficulty Swallowing, Anorexia Genitourinary: DENIES: Sexual dysfunction, Urinary frequency, Urinary incontinence, Urgency, Hematuria, Dysuria, Nocturia, Penile Discharge, Testicular Pain, Testicular Swelling Musculoskeletal: DENIES: Joint pain, Muscle aches, Stiffness, Joint Swelling, Back pain, Neck pain Integumentary: DENIES: Abnormal pigmentation, Nail changes, Pruritus, Rash Hematologic/lymphatic: DENIES: Bruising, Lymphadenopathy Immunologic/allergic: DENIES: Eczema, Urticaria Neurologic: DENIES: Abnormal gait, Headache, Localized weakness, Paresthesias, Seizures, Speech Problems, Tremor, Poor Balance Psychiatric: COMPLAINS OF: Anxiety Past Family Social History Allergies: Coded Allergies: Sulfa (Sulfonamide Antibiotics) (Unverified Allergy, Severe, hives, ) Past Medical History History of alcoholism Seizure disorder Depression Anxiety Past Surgical History Inguinal hernia repair Reported Medications Reported Meds & Active Scripts Active Calcium 600 with Vitamin D (Calcium Carbonate-Cholecalciferol) 600-400 mg-Unit Tab 1 Tab PO BID Potassium Chloride ER (Potassium Chloride) 20 Meq Tab 40 Meq PO DAILY starting after you finish the 2 twice daily for 5 days Potassium Chloride ER (Potassium Chloride) 20 Meq Tab 40 Meq PO BID 5 Days Prozac (Fluoxetine HCl) 40 Mg Cap 40 Mg PO DAILY Reported Seroquel (Quetiapine Fumarate) 100 Mg Tab 100 Mg PO HS Seroquel (Quetiapine Fumarate) 25 Mg Tab 25 Mg PO BID Carafate (Sucralfate) 1 Gm Tab 1 Gm PO TID On empty stomach Lorazepam 1 Mg Tab 1 Mg PO Q8H PRN Protonix (Pantoprazole Sodium) 40 Mg Tab 40 Mg PO DAILY Keppra (Levetiracetam) 500 Mg Tab 500 Mg PO BID Active Ordered Medications Current Medications Medications (Trade) Dose Ordered Sig/Efren Route Start Time Stop Time Status Last Admin Sodium Chloride 1,000 ml @ 100 mls/hr Q10H IV 07/27/17 04:18 07/27/17 14:11 (NS Flush) 2 ml UNSCH PRN IV FLUSH 07/27/17 04:30 (NS Flush) 2 ml BID IV FLUSH 07/27/17 09:00 (Tylenol) 650 mg Q4H PRN PO 07/27/17 04:30 (Zofran Inj) 4 mg Q6H PRN IVP 07/27/17 04:30 (Narcan Inj) 0.4 mg UNSCH PRN IV PUSH 07/27/17 04:30 (Oscal-D 250-125) 1 mg BID PO 07/27/17 09:00 07/27/17 08:51 (Keppra) 500 mg BID PO 07/27/17 09:00 07/27/17 08:51 (Protonix) 40 mg DAILY PO 07/27/17 09:00 07/27/17 08:51 (SEROquel) 25 mg BID PO 07/27/17 09:00 07/27/17 08:52 (SEROquel) 100 mg HS PO 07/27/17 21:00 (Carafate) 1 gm TIDAC PO 07/27/17 08:00 07/27/17 17:41 (PROzac) 40 mg DAILY PO 07/27/17 09:00 07/27/17 08:51 (Folate) 1 mg DAILY PO 07/27/17 09:00 07/27/17 08:01 (Vitamin B1) 100 mg DAILY PO 07/27/17 09:00 07/27/17 08:00 (Flu (Quadrivalent) Vaccine Inj) 0.5 ml ONCE ONCE IM 07/28/17 10:00 07/28/17 10:01 Magnesium Sulfate/ Dextrose 100 ml @ 100 mls/hr Q1H IV 07/27/17 18:00 07/27/17 19:59 07/27/17 17:48 Calcium Gluconate 2 gm/Dextrose 120 ml @ 120 mls/hr ONCE ONCE IV 07/27/17 18:00 07/27/17 18:59 07/27/17 17:52 Family History Noncontributory Social History Drinks heavily at times Smoke cigarettes and has used marijuana Physical Exam Vital Signs Vital Signs Date Time Temp Pulse Resp B/P (MAP) Pulse Ox O2 Delivery O2 Flow Rate FiO2 07/27/17 15:25 99.2 100 18 152/100 (117) 98 07/27/17 13:30 98.4 91 18 151/95 (113) 98 07/27/17 12:32 07/27/17 09:21 98.1 90 16 142/96 (111) 98 Room Air 07/27/17 05:37 84 16 130/82 (98) 98 Room Air 07/27/17 04:16 16 97 Room Air 07/27/17 01:38 98.6 95 20 142/99 (113) 96 Physical Exam GENERAL: Well-nourished, well-developed patient. SKIN: Warm and dry. HEAD: Normocephalic. EYES: No scleral icterus. No injection or drainage. NECK: Supple, trachea midline. No JVD or lymphadenopathy. CARDIOVASCULAR: Regular rate and rhythm without murmurs, gallops, or rubs. RESPIRATORY: Breath sounds equal bilaterally. No accessory muscle use. GASTROINTESTINAL: Abdomen soft, non-tender, nondistended. EXTREMITIES: No cyanosis, or edema. NEUROLOGICAL: Awake, alert, and oriented x 3. Non-focal. Laboratory Laboratory Tests Test 07/27/17 02:00 07/27/17 10:20 07/27/17 13:51 White Blood Count 6.3 Red Blood Count 3.44 Hemoglobin 13.2 Hematocrit 37.7 Mean Corpuscular Volume 109.5 Mean Corpuscular Hemoglobin 38.4 Mean Corpuscular Hemoglobin Concent 35.0 Red Cell Distribution Width 20.1 Platelet Count 563 Mean Platelet Volume 6.8 Neutrophils (%) (Auto) 43.7 Lymphocytes (%) (Auto) 48.0 Monocytes (%) (Auto) 6.5 Eosinophils (%) (Auto) 0.7 Basophils (%) (Auto) 1.1 Neutrophils # (Auto) 2.7 Lymphocytes # (Auto) 3.0 Monocytes # (Auto) 0.4 Eosinophils # (Auto) 0.0 Basophils # (Auto) 0.1 CBC Comment DIFF FINAL Differential Comment Urine Color YELLOW Urine Turbidity CLEAR Urine pH 6.0 Urine Specific [place] 1.016 Urine Protein TRACE Urine Glucose (UA) NEG Urine Ketones NEG Urine Occult Blood NEG Urine Nitrite NEG Urine Bilirubin NEG Urine Urobilinogen LESS THAN 2.0 Urine Leukocyte Esterase NEG Urine RBC LESS THAN 1 Urine Squamous Epithelial Cells <1 Microscopic Urinalysis Comment CULT NOT INDICATED Blood Urea Nitrogen 9 7 Creatinine 0.99 0.74 Random Glucose 86 87 Total Protein 7.5 6.5 Albumin 4.4 Calcium Level 5.8 6.6 Magnesium Level 1.2 1.0 Alkaline Phosphatase 121 Aspartate Amino Transf (AST/SGOT) 95 Alanine Aminotransferase (ALT/SGPT) 83 Total Bilirubin 0.5 Sodium Level 147 139 Potassium Level 3.7 3.7 Chloride Level 112 106 Carbon Dioxide Level 19.2 22.0 Anion Gap 16 11 Estimat Glomerular Filtration Rate 89 124 Protein Corrected Calcium 5.7 6.9 Thyroid Stimulating Hormone 3rd Gen 0.781 Urine Opiates Screen NEG Urine Barbiturates Screen NEG Urine Amphetamines Screen NEG Urine Benzodiazepines Screen NEG Urine Cocaine Screen NEG Urine Cannabinoids Screen POS Ethyl Alcohol Level 307 Result Diagram: 07/27/17 0200 07/27/17 1351 Assessment and Plan Problem List: (1) Hypomagnesemia ICD Codes: E83.42 - Hypomagnesemia Status: Acute Plan: This is likely due to alcohol use and abuse Continue with replacement Hypocalcemia can happen in hypomagnesemia state I will add 1 more gram of magnesium sulfate IV He is warned against alcohol abuse I was asked to comment on Bartter's syndrome, patient denies any hypokalemia in the past, current potassium is 3.7, there is no Alkalosis This automatically rules out Bartter's syndrome, they have to have severe hypokalemia to consider this diagnosis. I will sign off nothing further to add (2) Hypocalcemia ICD Codes: E83.51 - Hypocalcemia Status: Acute Plan: Continue to replace His potassium is normal and there is no evidence of Bartter syndrome (3) Alcohol use disorder, moderate, dependence ICD Codes: F10.20 - Alcohol dependence, uncomplicated Status: Acute Plan: Patient is counseled Jessica Wilcox MD Jul 27, 2017 18:32
[2017-07-27] MEDS ORDERED: QUEtiapine FUMARATE 100 MG TAB PO SCH (21:00)
[2017-07-27] MEDS: CALCIUM/VITAMIN D 250 MG/125 U TAB PO SCH (21:23)
[2017-07-27] MEDS: LORazepam 1 MG TAB PO PRN (21:24)
[2017-07-28] VITALS (7 sets, daily range): BP systolic 144–150; BP diastolic 93–96; PULSE 70–91; RESP 16–18; TEMP 97.7–98.1; O2SAT 97–99
[2017-07-28] MEDS: SODIUM CHLOR 0.9% 1000 ML INJ 1,000 ML IV SCH ×2 (00:18→12:17)
[2017-07-28 07:45] LABS: AUTOMATED NEUTROPHIL # 2.8 TH/MM3 (1.8-7.7); BASOPHIL # 0.1 TH/MM3 (0-0.2); EOSINOPHIL # 0.1 TH/MM3 (0-0.4); EOSINOPHIL % 1.8 % (0.0-4.0); HEMATOCRIT 34.4 % (39.0-51.0); HEMOGLOBIN 11.9 GM/DL (13.0-17.0); LYMPH % 35.4 % (9.0-44.0); LYMPHOCYTE # 1.8 TH/MM3 (1.0-4.8); MEAN CORPUSCULAR HEMOGLOBIN 38.4 PG (27.0-34.0); MEAN CORPUSCULAR HGB CONC 34.6 % (32.0-36.0); MONO % 7.3 % (0.0-8.0); MONOCYTE # 0.4 TH/MM3 (0-0.9); NEUT % 54.5 % (16.0-70.0); PLATELET COUNT 408 TH/MM3 (150-450); RED CELL DISTRIBUTION WIDTH 19.5 % (11.6-17.2); WHITE BLOOD COUNT 5.1 TH/MM3 (4.0-11.0)
[2017-07-28 07:52] LABS: BICARBONATE 21.5 MEQ/L (21.0-32.0); CALCIUM 7.4 MG/DL (8.5-10.1); CREATININE 0.7 MG/DL (0.60-1.30); MAGNESIUM 1.8 MG/DL (1.5-2.5)
[2017-07-28 08:04] LABS: CALCIUM-PROTEIN CORRECTED 7.5 MG/DL (8.5-10.1); TOTAL PROTEIN 6.9 GM/DL (6.4-8.2)
[2017-07-28] MEDS ORDERED: MAGNESIUM SULFATE 1 GM PREMIX 100 ML IV ONE (09:15)
[2017-07-28] MEDS ORDERED: POTASSIUM CHLORIDE 25 MEQ EFFERVESCENT TAB PO ONE (09:15)
[2017-07-28] MEDS: SODIUM CHLORIDE 0.9% FLUSH 10 ML FLUSH IV FLUSH SCH (09:42)
[2017-07-28] MEDS: SUCRALFATE 1 GM TAB PO SCH ×2 (09:43→12:17)
[2017-07-28] MEDS: QUEtiapine FUMARATE 25 MG TAB PO SCH (09:43)
[2017-07-28] MEDS: FOLIC ACID 1 MG TAB PO SCH (09:43)
[2017-07-28] MEDS: THIAMINE HCL 100 MG TAB PO SCH (09:44)
[2017-07-28] MEDS: PANTOPRAZOLE SOD 40 MG DELAYED RELEASE TAB PO SCH (09:44)
[2017-07-28] MEDS: CALCIUM/VITAMIN D 250 MG/125 U TAB PO SCH (09:44)
[2017-07-28] MEDS: FLUoxetine HCL 20 MG CAP PO SCH (09:44)
[2017-07-28] MEDS: levETIRAcetam 500 MG TAB PO SCH (09:44)
[2017-07-28] MEDS: LORazepam 1 MG TAB PO PRN (09:53)
[2017-07-28] MEDS ORDERED: CALCIUM GLUCONATE INJ 1 GM in DEXTROSE 5% IN WATER 100ML INJ 100 ML IV ONE ×2 (10:00)
[2017-07-28] MEDS ORDERED: INFLUENZA VIRUS VACCINE (QUADRIVALENT) 0.5 ML SYR IM ONE (10:00)
--- NOTE | 2017-07-28 12:41 | HHI.PR ---
Subjective Remarks Follow-up visit EtOH, seizure disorder. Patient seen and examined today sitting in bed. Aunt Peyton at the bedside. Patient was thankful for everything and states he is doing well. Discussed patient results of labs and electrolytic imbalances secondary to EtOH, risks not limited to was discussed. Counseled for cessation and to follow-up with psychiatrist that he sees an outpatient and the counselor. His aunt, states that the patient has had this problem of alcoholism for quite some time and that his mother was never supportive of him. Patient states that his mother was supportive of him and wants him to come back home. Denies pain and discomfort. Denies SOB/ dyspnea. Denies chest pain, palpitations, headaches, dizziness. Denies fevers, chills, n/v/d. Denies dysuria. Objective Vitals Vital Signs Date Time Temp Pulse Resp B/P (MAP) Pulse Ox O2 Delivery O2 Flow Rate FiO2 07/28/17 11:34 98.0 86 16 144/93 (110) 97 07/28/17 07:35 97.8 81 18 145/96 (112) 98 07/28/17 04:18 71 07/28/17 03:50 97.7 70 16 147/94 (111) 99 07/28/17 00:05 73 07/27/17 23:32 97.3 72 18 137/98 (111) 97 07/27/17 20:04 88 07/27/17 19:44 150/94 (112) Automatic Cuff 07/27/17 19:34 98.2 97 15 159/108 (125) 97 07/27/17 15:25 99.2 100 18 152/100 (117) 98 07/27/17 13:30 98.4 91 18 151/95 (113) 98 I/O 07/27/17 07/27/17 07/27/17 07/28/17 07/28/17 07/28/17 07:00 15:00 23:00 07:00 15:00 23:00 Intake Total 500 ml 320 ml 1000 ml 100 ml Balance 500 ml 320 ml 1000 ml 100 ml Intake Oral 500 ml IV Total 320 ml 1000 ml 100 ml # Voids 2 2 3 # Bowel Movements 1 Result Diagram: 07/28/17 0645 07/28/17 0645 Objective Remarks GENERAL: This is a well-nourished, well-developed patient, in no apparent distress. SKIN: Warm and dry HEENT: Normocephalic. Pupils equal round and reactive. Nose without bleeding. Airway patent. NECK: Trachea midline. CARDIOVASCULAR: Regular rate and rhythm without murmurs, gallops, or rubs. RESPIRATORY: Clear to auscultation. Breath sounds equal bilaterally. No wheezes , rales, or rhonchi. GASTROINTESTINAL: Abdomen soft, non-tender, nondistended. Bowel Sounds normoactive x4. MUSCULOSKELETAL: Extremities without clubbing, cyanosis, or edema. NEUROLOGICAL: Awake and alert. Oriented to time, place, person. No focal neuro deficit. Moves all extremities. Normal speech. Procedures None A/P Problem List: (1) Alcohol intoxication ICD Code: F10.929 - Alcohol use, unspecified with intoxication, unspecified Status: Acute (2) Hypocalcemia ICD Code: E83.51 - Hypocalcemia Status: Acute (3) Hypomagnesemia ICD Code: E83.42 - Hypomagnesemia Status: Acute (4) Alcohol abuse ICD Code: F10.10 - Alcohol abuse, uncomplicated Status: Acute Assessment and Plan 31-year-old male patient with a known medical history of alcohol abuse, history of electrolyte abnormalities, seizure disorder, depression, anxiety and GERD who is brought into the ED under Alvarado act. Alcohol intoxication with behavioral disturbance under Alvarado act Transaminase suspect secondary to above - Ethyl alcohol 307. AST 95, ALT 83, alkaline phosphatase 121. - Psychiatry consulted, appreciate further input and recommendations. - Continue home Seroquel dose and fluoxetine. - BA lifted. - Counseled about EtOH use, discussed risk of electrolyte imbalance not limited to . Verbalized understanding. Will continue to seek psychiatry help as an outpatient. 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 Improved - Continue IV fluid. Encourage p.o. intake. - If corrected, ad clinically stable, will DC today. Agreeable. - Nephro was consulted for suspicion of Bartter's syndrome. Nephrology cleared patient to continue with replacements of electrolytes most likely imbalance is related to alcohol abuse. Seizure disorder: Continue Keppra. Seizure precautions. - Follow up with urology and outpatient. Scars alcohol and alcohol withdrawals could increase risk for seizures. GERD: Continue Carafate and PPI. DVT prophylaxis: SCDs. Discharge patient to home Condition on discharge: Improved Regular Diet as tolerated Ad Catherine activity Rx written: Thiamine 100 mg daily Folic acid 1 mg daily Continue home medication calcium carbonate with vitamin D 600/400 mg twice a day Prozac 40 mg daily Keppra 500 mg twice a day Ativan 1 mg every 8 hours when necessary for anxiety Protonix 40 mg daily Seroquel 25 mg twice a day Seroquel 100 mg daily at bedtime Carafate 1 g 3 times a day with meals Follow-up with primary care physician, check BMP in 1 week Follow-up with psychiatry Follow-up with neurology Follow-up with psychologist Discharge Planning Plan to DC home today if labs is within normal Problem Qualifiers (1) Alcohol intoxication: Qualified Codes: F10.920 - Alcohol use, unspecified with intoxication, uncomplicated Stacia Purvis Jul 28, 2017 12:41
[2017-07-28] MEDS ORDERED: FOLI1TAB6 PO (13:42)
[2017-07-28] MEDS ORDERED: THIA100 PO (13:42)
[2017-07-28 16:56] LABS: BICARBONATE 21.4 MEQ/L (21.0-32.0); CALCIUM 7.5 MG/DL (8.5-10.1); CREATININE 0.85 MG/DL (0.60-1.30); MAGNESIUM 1.9 MG/DL (1.5-2.5)
--- NOTE | 2017-07-28 17:16 | HHI.DCPOC ---
Discharge Care Plan Diagnosis: (1) Hypocalcemia (2) Alcohol intoxication (3) Alcohol abuse with alcohol-induced mood disorder (4) Hypomagnesemia (5) Hypokalemia (6) Electrolyte abnormality (7) History of seizure Additional Problems Alcohol Abuse Goals to Promote Your Health * To prevent worsening of your condition and complications * To maintain your health at the optimal level Directions to Meet Your Goals Take your medications as prescribed Follow your dietary instruction Follow activity as directed Keep your appointments as scheduled Take your immunizations and boosters as scheduled If your symptoms worsen call your PCP, if no PCP go to Urgent Care Center or Emergency Room Smoking is Dangerous to Your Health. Avoid second hand smoke Call the 24-hour hour crisis hotline for domestic abuse at Stacia Purvis Jul 28, 2017 17:16
== END 2017-07-28 18:56 | disposition home or self-care (01) ==
LOC: NEPD 01:18 → NEDA 04:20 → NEPHCDU 13:04
PROVIDERS: ADMIT Hospitalist; ATTEND Hospitalist
DX: F10.229 Alcohol dependence with intoxication, unspecified (principal); F10.24 Alcohol dependence with alcohol-induced mood disorder; D69.6 Thrombocytopenia, unspecified; E87.6 Hypokalemia; E83.51 Hypocalcemia; E83.42 Hypomagnesemia; E87.0 Hyperosmolality and hypernatremia; G40.909 Epilepsy, unspecified, not intractable, without status epilepticus; K21.9 Gastro-esophageal reflux disease without esophagitis; F41.9 Anxiety disorder, unspecified; F32.9 Major depressive disorder, single episode, unspecified; F17.210 Nicotine dependence, cigarettes, uncomplicated; F12.90 Cannabis use, unspecified, uncomplicated; Z23 Encounter for immunization; Z79.899 Other long term (current) drug therapy; Y90.8 Blood alcohol level of 240 mg/100 ml or more
CPT/HCPCS: 80048; 80053; 80177; 80307; 81001; 83735; 84155; 84443; 85025; 96361; 96365; 96366; 96368; 99285; G0378; J0610; J3475; J7030; Q2038; 90686

== ENCOUNTER 2017-09-20 20:05 | Emergency (ER) | payer OTHER ==
[~2017-09-20] VITALS: Ht 175.3 cm; Wt 85.0 kg
[~2017-09-20 20:05] MED LIST changes: +FOLI1TAB6 PO; -POTA-163 PO; +THIA100 PO
[2017-09-20 20:29] VITALS: BP 139/92; PULSE 92; RESP 16; TEMP 98.6
[2017-09-20] MEDS ORDERED: MULT1TAB46 (20:35)
[2017-09-20 21:12] LABS: AUTOMATED NEUTROPHIL # 3.3 TH/MM3 (1.8-7.7); BASOPHIL # 0.1 TH/MM3 (0-0.2); BASOPHIL % 0.9 % (0.0-2.0); EOSINOPHIL # 0.1 TH/MM3 (0-0.4); EOSINOPHIL % 1.1 % (0.0-4.0); HEMATOCRIT 40.7 % (39.0-51.0); LYMPH % 35.6 % (9.0-44.0); LYMPHOCYTE # 2.2 TH/MM3 (1.0-4.8); MEAN CELL VOLUME 107.8 FL (80.0-100.0); MEAN CORPUSCULAR HGB CONC 34.3 % (32.0-36.0); MEAN PLATELET VOLUME 7.3 FL (7.0-11.0); MONO % 7.3 % (0.0-8.0); MONOCYTE # 0.4 TH/MM3 (0-0.9); NEUT % 55.1 % (16.0-70.0); PLATELET COUNT 375 TH/MM3 (150-450); RED BLOOD COUNT 3.78 MIL/MM3 (4.50-5.90); RED CELL DISTRIBUTION WIDTH 14.1 % (11.6-17.2); WHITE BLOOD COUNT 6.1 TH/MM3 (4.0-11.0)
--- NOTE | 2017-09-20 21:20 | PD ---
HPI Chief Complaint: Psychiatric Symptoms Time Seen by Provider: 20:37 Travel History International Travel<30 days: No Contact w/Intl Traveler<30days: No Traveled to known affect area: No History of Present Illness HPI 31-year-old male that presents to the ED for evaluation of psychiatric illness. Patient was Alvarado acted by police after apparently he made suicidal threats and try to cut himself on the left arm with his knife. Patient has superficial cuts to his left arm. Per patient he did this not to try to kill himself but to get help. She states that he has a history of depression and anxiety as well as seizures. He states compliance with his medications. Denies any drugs or alcohol but per medical records he does have a history of alcohol abuse in the past. Has allergy to sulfa. No other medical issues. No chest pain or shortness of breath. Patient himself complains of no homicidal or suicidal ideation. Symptoms appear to have worsened today secondary to an argument he had. He appears to be remorseful as to what happened. He states that he is up- to-date with his tetanus booster. PFSH Past Medical History Hx Anticoagulant Therapy: No Arthritis: No Autoimmune Disease: No Blood Disorders: No Anxiety: Yes Depression: No Cancer: No Cardiovascular Problems: No Chemotherapy: No Cerebrovascular Accident: No Diabetes: No Diminished Hearing: No Endocrine: No GERD: Yes Genitourinary: No Headaches: Yes (OCCASSIONALLY ) Hepatitis: No Hiatal Hernia: No Hypertension: No Immune Disorder: No Musculoskeletal: No Neurologic: No Psychiatric: Yes Reproductive: No Respiratory: No Seizures: Yes Thyroid Disease: No Past Surgical History Abdominal Surgery: Yes (LEFT inguinal hernia repair) Cardiac Surgery: No Ear Surgery: No Endocrine Surgery: No Eye Surgery: No Genitourinary Surgery: No Hysterectomy: No Oral Surgery: No Thoracic Surgery: No Other Surgery: Yes Social History Alcohol Use: Yes (OCC) Tobacco Use: Yes (occasional) Substance Use: Yes (marijuana 1 week prior) Allergies-Medications (Allergen,Severity, Reaction): Coded Allergies: Sulfa (Sulfonamide Antibiotics) (Unverified Allergy, Severe, hives, ) Reported Meds & Prescriptions Reported Meds & Active Scripts Active Calcium 600 with Vitamin D (Calcium Carbonate-Cholecalciferol) 600-400 mg-Unit Tab 1 Tab PO BID Prozac (Fluoxetine HCl) 40 Mg Cap 40 Mg PO DAILY Reported Multi Vitamin Daily (Multiple Vitamin) 1 Tab Tab Seroquel (Quetiapine Fumarate) 100 Mg Tab 200 Mg PO HS Seroquel (Quetiapine Fumarate) 25 Mg Tab 25 Mg PO BID Carafate (Sucralfate) 1 Gm Tab 1 Gm PO TID On empty stomach Lorazepam 1 Mg Tab 1 Mg PO Q8H PRN Protonix (Pantoprazole Sodium) 40 Mg Tab 40 Mg PO DAILY Keppra (Levetiracetam) 500 Mg Tab 500 Mg PO BID Review of Systems Except as stated in HPI: all other systems reviewed are Neg Physical Exam Narrative GENERAL: SKIN: Warm and dry. superficial cuts to the left arm. HEAD: Atraumatic. Normocephalic. EYES: Pupils equal and round. No scleral icterus. No injection or drainage. ENT: No nasal bleeding or discharge. Mucous membranes pink and moist. Tongue is midline. No uvula deviation. NECK: Trachea midline. No JVD. CARDIOVASCULAR: Regular rate and rhythm. RESPIRATORY: No accessory muscle use. Clear to auscultation. Breath sounds equal bilaterally. GASTROINTESTINAL: Abdomen soft, non-tender, nondistended. Hepatic and splenic margins not palpable. MUSCULOSKELETAL: Extremities without clubbing, cyanosis, or edema. No obvious deformities. Full range of motion of the upper and lower extremities bilaterally. 2+ pulses bilaterally NEUROLOGICAL: Awake and alert. No obvious cranial nerve deficits. Motor grossly within normal limits. Five out of 5 muscle strength in the arms and legs. Normal speech. PSYCHIATRIC: Appropriate mood and affect; insight and judgment normal. Data Data Last Documented VS Vital Signs Date Time Temp Pulse Resp B/P (MAP) Pulse Ox O2 Delivery O2 Flow Rate FiO2 09/20/17 20:29 98.6 92 16 139/92 (108) Orders Orders Complete Blood Count With Diff (09/20/17 20:32) Comprehensive Metabolic Panel (09/20/17 20:32) Thyroid Stimulating Hormone (09/20/17 20:32) Psych Screen (09/20/17 20:32) Drug Screen, Random Urine (09/20/17 20:32) Alcohol (Ethanol) (09/20/17 20:32) Salicylates (Aspirin) (09/20/17 20:32) Tylenol (Acetaminophen) (09/20/17 20:32) Labs Laboratory Tests Test 09/20/17 20:48 White Blood Count 6.1 TH/MM3 Red Blood Count 3.78 MIL/MM3 Hemoglobin 14.0 GM/DL Hematocrit 40.7 % Mean Corpuscular Volume 107.8 FL Mean Corpuscular Hemoglobin 37.0 PG Mean Corpuscular Hemoglobin Concent 34.3 % Red Cell Distribution Width 14.1 % Platelet Count 375 TH/MM3 Mean Platelet Volume 7.3 FL Neutrophils (%) (Auto) 55.1 % Lymphocytes (%) (Auto) 35.6 % Monocytes (%) (Auto) 7.3 % Eosinophils (%) (Auto) 1.1 % Basophils (%) (Auto) 0.9 % Neutrophils # (Auto) 3.3 TH/MM3 Lymphocytes # (Auto) 2.2 TH/MM3 Monocytes # (Auto) 0.4 TH/MM3 Eosinophils # (Auto) 0.1 TH/MM3 Basophils # (Auto) 0.1 TH/MM3 CBC Comment DIFF FINAL Differential Comment MDM Medical Decision Making Medical Screen Exam Complete: Yes Emergency Medical Condition: Yes Medical Record Reviewed: Yes Differential Diagnosis Depression versus suicidal ideation versus anxiety versus adjustment disorder versus mood disorder versus bipolar disorder versus schizophrenia versus paranoid disorder versus psychosis versus substance abuse versus alcohol abuse versus alcohol induced psychosis versus homicidality addition versus cutting versus personality disorder Narrative Course 31-year-old male that presents to the ED for evaluation of psych. Patient was properly examined and was found to have signs and symptoms consistent with psychiatric illness been a significant medical distress. Cut is very superficial. Labs and imaging order. Patient will be medically clear. Okay to be seen by psych. Mental health screening was discussed with the patient. Diagnosis Primary Impression: Adjustment disorder Qualified Codes: F43.20 - Adjustment disorder, unspecified Sean Goodwin Sep 20, 2017 21:20
[2017-09-20 21:25] LABS: AST (GOT) 104 U/L (15-37); BICARBONATE 26.8 MEQ/L (21.0-32.0); BLOOD UREA NITROGEN 11 MG/DL (7-18); CHLORIDE 105 MEQ/L (98-107); CREATININE 1.16 MG/DL (0.60-1.30); GLOMERULAR FILTRATION RATE 74 ML/MIN (>89); GLUCOSE,RANDOM 81 MG/DL (74-106); SODIUM (NA) 141 MEQ/L (136-145)
[2017-09-20] MEDS ORDERED: ONDANSETRON ODT 4 MG TAB PO PRN (21:30)
[2017-09-20] MEDS ORDERED: LORazepam 2 MG TAB PO PRN (21:30)
[2017-09-20] MEDS ORDERED: LORazepam 1 MG TAB PO PRN (21:30)
[2017-09-20] MEDS ORDERED: ACETAMINOPHEN 325 MG TAB PO PRN (21:30)
[2017-09-20] MEDS ORDERED: LORazepam 2 MG/ML VIAL IV PUSH PRN ×4 (21:30)
[2017-09-20] MEDS ORDERED: FLUMAZENIL 0.5 MG/5 ML VIAL IV PUSH PRN (21:30)
[2017-09-20 21:37] LABS: ACETAMINOPHEN LESS THAN 2.0 MCG/ML (10.0-30.0); ALKALINE PHOSPHATASE 99 U/L (45-117); ALT (GPT) 110 U/L (12-78); TOTAL BILIRUBIN ADULT 0.2 MG/DL (0.2-1.0); TOTAL PROTEIN 6.9 GM/DL (6.4-8.2)
[2017-09-21 03:05] VITALS: BP 140/90; PULSE 79; RESP 18; TEMP 98.2; O2SAT 97
[2017-09-21 10:00] VITALS: BP 139/96; PULSE 86; RESP 16; TEMP 98.7; O2SAT 98
--- NOTE | 2017-09-21 11:09 | PD ---
Physical Exam Time Seen by Provider: 11:01 ALEJANDRO Doan has evaluated the patient, lifted the Alvarado act and cleared the patient for discharge. Data Data Last Documented VS Vital Signs Date Time Temp Pulse Resp B/P (MAP) Pulse Ox O2 Delivery O2 Flow Rate FiO2 09/21/17 10:00 98.7 86 16 139/96 (110) 98 Room Air Orders Orders Complete Blood Count With Diff (09/20/17 20:32) Comprehensive Metabolic Panel (09/20/17 20:32) Thyroid Stimulating Hormone (09/20/17 20:32) Psych Screen (09/20/17 20:32) Drug Screen, Random Urine (09/20/17 20:32) Alcohol (Ethanol) (09/20/17 20:32) Salicylates (Aspirin) (09/20/17 20:32) Tylenol (Acetaminophen) (09/20/17 20:32) Alcohol Withdrawal Asmt-Ciwa ONCE (09/20/17 21:29) Ondansetron Odt (Zofran Odt) (09/20/17 21:30) Acetaminophen (Tylenol) (09/20/17 21:30) Flumazenil Inj (Romazicon Inj) (09/20/17 21:30) Lorazepam (Ativan) (09/20/17 21:30) Lorazepam Inj (Ativan Inj) (09/20/17 21:30) Lorazepam (Ativan) (09/20/17 21:30) Lorazepam Inj (Ativan Inj) (09/20/17 21:30) Lorazepam Inj (Ativan Inj) (09/20/17 21:30) Lorazepam Inj (Ativan Inj) (09/20/17 21:30) Diet Regular Basic (09/21/17 Breakfast) Diet Regular Basic (09/21/17 Lunch) Labs Laboratory Tests Test 09/20/17 20:48 09/20/17 23:15 White Blood Count 6.1 TH/MM3 Red Blood Count 3.78 MIL/MM3 Hemoglobin 14.0 GM/DL Hematocrit 40.7 % Mean Corpuscular Volume 107.8 FL Mean Corpuscular Hemoglobin 37.0 PG Mean Corpuscular Hemoglobin Concent 34.3 % Red Cell Distribution Width 14.1 % Platelet Count 375 TH/MM3 Mean Platelet Volume 7.3 FL Neutrophils (%) (Auto) 55.1 % Lymphocytes (%) (Auto) 35.6 % Monocytes (%) (Auto) 7.3 % Eosinophils (%) (Auto) 1.1 % Basophils (%) (Auto) 0.9 % Neutrophils # (Auto) 3.3 TH/MM3 Lymphocytes # (Auto) 2.2 TH/MM3 Monocytes # (Auto) 0.4 TH/MM3 Eosinophils # (Auto) 0.1 TH/MM3 Basophils # (Auto) 0.1 TH/MM3 CBC Comment DIFF FINAL Differential Comment Blood Urea Nitrogen 11 MG/DL Creatinine 1.16 MG/DL Random Glucose 81 MG/DL Total Protein 6.9 GM/DL Albumin 4.0 GM/DL Calcium Level 9.0 MG/DL Alkaline Phosphatase 99 U/L Aspartate Amino Transf (AST/SGOT) 104 U/L Alanine Aminotransferase (ALT/SGPT) 110 U/L Total Bilirubin 0.2 MG/DL Sodium Level 141 MEQ/L Potassium Level 3.3 MEQ/L Chloride Level 105 MEQ/L Carbon Dioxide Level 26.8 MEQ/L Anion Gap 9 MEQ/L Estimat Glomerular Filtration Rate 74 ML/MIN Thyroid Stimulating Hormone 3rd Gen 1.990 uIU/ML Salicylates Level LESS THAN 1.7 MG/DL Acetaminophen Level LESS THAN 2.0 MCG/ML Ethyl Alcohol Level 194 MG/DL Urine Opiates Screen NEG Urine Barbiturates Screen NEG Urine Amphetamines Screen NEG Urine Benzodiazepines Screen NEG Urine Cocaine Screen NEG Urine Cannabinoids Screen NEG MDM Supervised Visit with DOT: No Narrative Course ALEJANDRO Taylor has evaluated the patient, lifted the Alvarado act and cleared the patient for discharge. Patient contracts safety. Denies suicidal or homicidal ideations. [facility] Has friends and family for support. Patient was medically cleared by alternate provider prior to psych screening. Patient has been evaluated by psychiatry and and is now cleared for discharge. Diagnosis Primary Impression: Adjustment disorder Qualified Codes: F43.20 - Adjustment disorder, unspecified Referrals: [facility] (Out patient) [facility] Primary Care Physician Psychiatrist Sj BERGMAN [facility] Patient Instructions: General Instructions, Mood Disorders (ED) Additional Instruction: Contract safety to your self and others Follow-up with psychiatry Follow-up with primary care provider Follow-up with Thomas Mcqueen Return to the emergency department immediately with worsening of symptoms Med/Other Pt SpecificInfo: No Change to Meds, No Meds Exist/No RX given Disposition: 01 DISCHARGE HOME Condition: Stable Madonna Holley Sep 21, 2017 11:09
--- NOTE | 2017-09-21 11:10 | PD ---
History of Present Illness Chief Complaint: Psychiatric Symptoms Time Seen by Provider: 10:45 Travel History International Travel<30 Days: No Contact w/Intl Traveler<30days: No Known affected area: No Legal Status Legal Status: Alvarado Act Alvarado Act Signed By: Ken Roach History of Present Illness: History of Present Illness HPI 31-year-old, single, male with history of anxiety, alcohol abuse that presents to the ED under a Alvarado act initiated by law enforcement for evaluation of psychiatric illness. The Alvarado act report alleges that the patient cut his left wrist with a kitchen knife 48 hours ago and then showed it to his mother and his father. It also alleges that he told that he would kill himself with a pistol if that in the house if he had access to it. The patient states that the statements were actually made in context of having an argument with his mother. He was also under the influence of alcohol and presented to the ED with blood alcohol level of 194. The cuts that the patient may need to his left wrist are extremely superficial and appear more like they were made with his fingernails. The patient was monitored in secure environment and he presented no behavioral concerns and no evidence of any suicidality. Electronic medical record is reviewed. The patient was seen in the ED previously for similar complaints. The patient does not have had access to a weapon at this time and states it is locked up in his father's room. Patient is seen. He is clinically sober. Speech clear, logical and of normal rate and tone. There is no evidence of any psychosis, no vandana or hypomania. He denies feeling depressed. He denies any suicidal or homicidal ideation, intent or plan. Patient states" I have no intention of harming himself or anyone else.I have been thinking about moving back to [place] and have made plans with my aunt to help me". He continues to express remorse over argument with his mother and subsequent Alvarado act. Remainder of psychiatric review of systems is negative. . PFSH Past Medical History Hx Anticoagulant Therapy: No Arthritis: No Autoimmune Disease: No Blood Disorders: No Anxiety: Yes Depression: No Cancer: No Cardiovascular Problems: No Chemotherapy: No Cerebrovascular Accident: No Diabetes: No Diminished Hearing: No Endocrine: No GERD: Yes Genitourinary: No Headaches: Yes (OCCASSIONALLY ) Hepatitis: No Hiatal Hernia: No Hypertension: No Immune Disorder: No Medical other: Yes (ALCOHOLISM) Musculoskeletal: No Neurologic: No Psychiatric: Yes Reproductive: No Respiratory: No Seizures: Yes Thyroid Disease: No Past Surgical History Abdominal Surgery: Yes (HERNIA) Cardiac Surgery: No Ear Surgery: No Endocrine Surgery: No Eye Surgery: No Genitourinary Surgery: No Hysterectomy: No Oral Surgery: No Thoracic Surgery: No Other Surgery: Yes Psychiatric History Psychiatric History Hx Psychiatric Treatment: REPORTS HX OF ANXIETY AND SEES DR MENDEZ OUTPATIENT. REPORTS MED COMPLIANCE no previous history of suicide attempt. History of Inpatient Treatment: No Guns or firearms in home: Yes (Guns are secured by the father. Patient has no access to weapons.) Social History Single, never . Has completed 3 years of college. Lives with his parents. Has worked as a protective services officer. Hx Alcohol Use: Yes Hx Tobacco Use: Yes Hx Substance Use: Yes (DENIES USING ALCOHOL TODAY) Substance Use Type: Alcohol Hx of Substance Use Treatment: No Family Psychiatric History Negative Allergies-Medications (Allergen,Severity, Reaction): Coded Allergies: Sulfa (Sulfonamide Antibiotics) (Unverified Allergy, Severe, hives, ) Reported Meds & Prescriptions Reported Meds & Active Scripts Active Calcium 600 with Vitamin D (Calcium Carbonate-Cholecalciferol) 600-400 mg-Unit Tab 1 Tab PO BID Prozac (Fluoxetine HCl) 40 Mg Cap 40 Mg PO DAILY Reported Multi Vitamin Daily (Multiple Vitamin) 1 Tab Tab Seroquel (Quetiapine Fumarate) 100 Mg Tab 200 Mg PO HS Seroquel (Quetiapine Fumarate) 25 Mg Tab 25 Mg PO BID Carafate (Sucralfate) 1 Gm Tab 1 Gm PO TID On empty stomach Lorazepam 1 Mg Tab 1 Mg PO Q8H PRN Protonix (Pantoprazole Sodium) 40 Mg Tab 40 Mg PO DAILY Keppra (Levetiracetam) 500 Mg Tab 500 Mg PO BID Review of Systems Psychiatric: DENIES: Anxiety, Confusion, Mood changes, Depression, Hallucinations, Agitation, Suicidal Ideation, Homicidal Ideation, Delusions Except as stated in HPI: all other systems reviewed are Neg Mental Status Examination Appearance: Appropriate (In hospital [facility] and maintaining basic hygiene) Consciousness: Alert Orientation: x4 Motor Activity: Normal gait Speech: Unremarkable Language: Adequate Fund of Knowledge: Adequate Attention and Concentration: Adequate Memory: Unremarkable Mood: Appropriate Affect: Appropriate Thought Process & Associations: Intact, Logical, Goal directed Thought Content: Appropriate Hallucination Type: None Delusion Type: None Suicidal Ideation: No Suicidal Plan: No Suicidal Intention: No Homicidal Ideation: No Homicidal Plan: No Homicidal Intention: No Insight: Fair Judgment: Impulsive MDM Medical Decision Making Medical Record Reviewed: Yes Assessment/Plan 31-year-old, single, male with history of anxiety, alcohol abuse that presents to the ED under a Alvarado act initiated by law enforcement for evaluation of psychiatric illness. The Alvarado act report alleges that the patient cut his left wrist with a kitchen knife 48 hours ago and then showed it to his mother and his father. It also alleges that he told that he would kill himself with a pistol if that in the house if he had access to it. The patient states that the statements were actually made in context of having an argument with his mother. Patient was monitored in secure environment and was allowed to sober up clinically. He presented no behavioral concerns and no suicidality or homicidality was observed. The patient expresses remorse that his actions. He continues to deny any suicidal or homicidal ideation intent or plan. The patient is future oriented and has plans to move back to [place] with his aunt. No evidence of unstable mental illness has defined under the Alvarado act. The Alvarado act will be lifted. He is provided psychoeducation. Psychiatrically clear for discharge from the ED. Orders Orders Complete Blood Count With Diff (09/20/17 20:32) Comprehensive Metabolic Panel (09/20/17 20:32) Thyroid Stimulating Hormone (09/20/17 20:32) Psych Screen (09/20/17 20:32) Drug Screen, Random Urine (09/20/17 20:32) Alcohol (Ethanol) (09/20/17 20:32) Salicylates (Aspirin) (09/20/17 20:32) Tylenol (Acetaminophen) (09/20/17 20:32) Alcohol Withdrawal Asmt-Ciwa ONCE (09/20/17 21:29) Ondansetron Odt (Zofran Odt) (09/20/17 21:30) Acetaminophen (Tylenol) (09/20/17 21:30) Flumazenil Inj (Romazicon Inj) (09/20/17 21:30) Lorazepam (Ativan) (09/20/17 21:30) Lorazepam Inj (Ativan Inj) (09/20/17 21:30) Lorazepam (Ativan) (09/20/17 21:30) Lorazepam Inj (Ativan Inj) (09/20/17 21:30) Lorazepam Inj (Ativan Inj) (09/20/17 21:30) Lorazepam Inj (Ativan Inj) (09/20/17 21:30) Diet Regular Basic (09/21/17 Breakfast) Diet Regular Basic (09/21/17 Lunch) Results Vital Signs Date Time Temp Pulse Resp B/P (MAP) Pulse Ox O2 Delivery O2 Flow Rate FiO2 09/21/17 10:00 98.7 86 16 139/96 (110) 98 Room Air 09/21/17 03:05 98.2 79 18 140/90 (107) 97 Room Air 09/20/17 20:29 98.6 92 16 139/92 (108) Laboratory Tests Test 09/20/17 20:48 09/20/17 23:15 White Blood Count 6.1 Red Blood Count 3.78 Hemoglobin 14.0 Hematocrit 40.7 Mean Corpuscular Volume 107.8 Mean Corpuscular Hemoglobin 37.0 Mean Corpuscular Hemoglobin Concent 34.3 Red Cell Distribution Width 14.1 Platelet Count 375 Mean Platelet Volume 7.3 Neutrophils (%) (Auto) 55.1 Lymphocytes (%) (Auto) 35.6 Monocytes (%) (Auto) 7.3 Eosinophils (%) (Auto) 1.1 Basophils (%) (Auto) 0.9 Neutrophils # (Auto) 3.3 Lymphocytes # (Auto) 2.2 Monocytes # (Auto) 0.4 Eosinophils # (Auto) 0.1 Basophils # (Auto) 0.1 CBC Comment DIFF FINAL Differential Comment Blood Urea Nitrogen 11 Creatinine 1.16 Random Glucose 81 Total Protein 6.9 Albumin 4.0 Calcium Level 9.0 Alkaline Phosphatase 99 Aspartate Amino Transf (AST/SGOT) 104 Alanine Aminotransferase (ALT/SGPT) 110 Total Bilirubin 0.2 Sodium Level 141 Potassium Level 3.3 Chloride Level 105 Carbon Dioxide Level 26.8 Anion Gap 9 Estimat Glomerular Filtration Rate 74 Thyroid Stimulating Hormone 3rd Gen 1.990 Salicylates Level LESS THAN 1.7 Acetaminophen Level LESS THAN 2.0 Ethyl Alcohol Level 194 Urine Opiates Screen NEG Urine Barbiturates Screen NEG Urine Amphetamines Screen NEG Urine Benzodiazepines Screen NEG Urine Cocaine Screen NEG Urine Cannabinoids Screen NEG Diagnosis Primary Impression: Alcohol abuse with alcohol-induced mood disorder Psychiatrically Cleared: Yes Med/ Other Pt Specific Info: No Change to Meds Disposition: 01 DISCHARGE HOME Condition: Stable Claudia Davis [facility] Sep 21, 2017 11:10
== END 2017-09-21 12:18 | disposition home or self-care (01) ==
LOC: NEPJ 20:05
DX: F43.20 Adjustment disorder, unspecified (principal); Z79.899 Other long term (current) drug therapy
CPT/HCPCS: 80053; 80307; 84443; 85025; 99283

== ENCOUNTER 2017-10-11 07:44 | Inpatient (IN) | payer OTHER ==
[~2017-10-11] VITALS: Ht 177.8 cm; Wt 72.8 kg
[2017-10-11] VITALS (9 sets, daily range): BP systolic 122–157; BP diastolic 78–106; PULSE 77–142; RESP 14–17; TEMP 97.1–98.8; O2SAT 90–100
[~2017-10-11 07:44] MED LIST changes: -FOLI1TAB6 PO; +MULT1TAB46; -THIA100 PO
[2017-10-11] MEDS ORDERED: SODIUM CHLOR 0.9% 1000 ML INJ 1,000 ML IV SCH ×2 (08:21→12:00)
[2017-10-11] MEDS ORDERED: ONDANSETRON ODT 4 MG TAB PO ONE (08:30)
[2017-10-11] MEDS ORDERED: SODIUM CHLORIDE 0.9% FLUSH 10 ML FLUSH IV FLUSH PRN ×2 (08:30→11:45)
[2017-10-11 09:13] LABS: BASOPHIL % 0.4 % (0.0-2.0); HEMATOCRIT 47.2 % (39.0-51.0); HEMOGLOBIN 16.8 GM/DL (13.0-17.0); LYMPH % 10.8 % (9.0-44.0); LYMPHOCYTE # 1.1 TH/MM3 (1.0-4.8); MEAN CELL VOLUME 100.5 FL (80.0-100.0); MEAN CORPUSCULAR HEMOGLOBIN 35.7 PG (27.0-34.0); MEAN CORPUSCULAR HGB CONC 35.6 % (32.0-36.0); MEAN PLATELET VOLUME 7.8 FL (7.0-11.0); MONO % 10.3 % (0.0-8.0); MONOCYTE # 1.1 TH/MM3 (0-0.9); NEUT % 78.5 % (16.0-70.0); PLATELET COUNT 290 TH/MM3 (150-450); RED BLOOD COUNT 4.69 MIL/MM3 (4.50-5.90); RED CELL DISTRIBUTION WIDTH 13.7 % (11.6-17.2); WHITE BLOOD COUNT 10.2 TH/MM3 (4.0-11.0)
--- NOTE | 2017-10-11 09:29 | PD ---
HPI Chief Complaint: GI Complaint Time Seen by Provider: 08:12 (Usha Salazar MD) Travel History International Travel<30 days: No Contact w/Intl Traveler<30days: No Traveled to known affect area: No (Usha Salazar MD) History of Present Illness HPI Patient presents to the emergency department complaining of 4 days of vomiting and nonbloody diarrhea. Questionable seizure last night as patient has a history of seizures. Denies fever, recent travel, no known sick contacts, hematuria, or dysuria. He does report back pain, increased urination, abdominal pain, nausea vomiting, and chills. States that he is vomiting his p.o. intake. Abdominal pain is described as being diffuse, constant, no alleviating factors, aggravated by drinking too much fluid. He does have a history of irritable bowel syndrome. (Usha Salazar MD) HPI stomach pain and diarrhea x4 days nonbloody, multiple times/ day most 12 times per day No fever Occasional chills worsening and hallucinating- talking to himself hearing music- this morning- Hearing family talking vomiting -last drink late July25 july -4-6 shots of heavy liquor per day -weaned off alcohol no issues before No hx of gallbladder problems nonbloody vomiting- 30- , no food or water, decreased urine output abomdinal pain last pain- Midepigastric, no radiation, aching, intermittent, 5/ 10 no CP, SOB thought he had a seizure last night- sorenes in whole body -no bowel/bladder control loss, no bitting of tongue -last seizure -last summer in 2016- Keppra- BID hx of anorexia- does better last six months (Desi Watson MD R1) PFSH Past Medical History Hx Anticoagulant Therapy: No Arthritis: No Autoimmune Disease: No Blood Disorders: No Anxiety: Yes Depression: No Cancer: No Cardiovascular Problems: No Chemotherapy: No Cerebrovascular Accident: No Diabetes: No Diminished Hearing: No Endocrine: No Gastrointestinal Disorders: Yes (GERD) GERD: Yes Genitourinary: No Headaches: Yes (OCCASSIONALLY ) Hepatitis: No Hiatal Hernia: No Hypertension: No Immune Disorder: No Musculoskeletal: No Neurologic: No Psychiatric: Yes Reproductive: No Respiratory: No Seizures: Yes Thyroid Disease: No Tetanus Vaccination: > 5 Years (Usha Salazar MD) Past Surgical History Abdominal Surgery: Yes (HERNIA) Cardiac Surgery: No Ear Surgery: No Endocrine Surgery: No Eye Surgery: No Genitourinary Surgery: No Hysterectomy: No Oral Surgery: No Thoracic Surgery: No Other Surgery: Yes (inguinal hernia) (Usha Salazar MD) Social History Alcohol Use: Yes Tobacco Use: Yes Substance Use: Yes (DENIES USING ALCOHOL TODAY) (Usha Salazar MD) Allergies-Medications (Allergen,Severity, Reaction): Coded Allergies: Sulfa (Sulfonamide Antibiotics) (Verified Allergy, Severe, hives, 10/11/17) Reported Meds & Prescriptions Reported Meds & Active Scripts Active Calcium 600 with Vitamin D (Calcium Carbonate-Cholecalciferol) 600-400 mg-Unit Tab 1 Tab PO BID Prozac (Fluoxetine HCl) 40 Mg Cap 40 Mg PO DAILY Reported Multi Vitamin Daily (Multiple Vitamin) 1 Tab Tab Seroquel (Quetiapine Fumarate) 25 Mg Tab 25 Mg PO BID Carafate (Sucralfate) 1 Gm Tab 1 Gm PO TID On empty stomach Lorazepam 1 Mg Tab 1 Mg PO Q8H PRN Protonix (Pantoprazole Sodium) 40 Mg Tab 40 Mg PO DAILY Keppra (Levetiracetam) 500 Mg Tab 500 Mg PO BID (Desi Watson MD R1) Review of Systems Except as stated in HPI: all other systems reviewed are Neg (Usha Salazar MD) Physical Exam Narrative GENERAL: No acute distress. SKIN: Focused skin assessment warm/dry. HEAD: Atraumatic. Normocephalic. EYES: Pupils equal and round. No scleral icterus. No injection or drainage. ENT: No nasal bleeding or discharge. Mucous membranes are dry. NECK: Trachea midline. No JVD. CARDIOVASCULAR: Regular rate and rhythm. No murmur appreciated. RESPIRATORY: No accessory muscle use. Clear to auscultation. Breath sounds equal bilaterally. GASTROINTESTINAL: Abdomen soft, non-tender, nondistended. Hepatic and splenic margins not palpable. Bilateral CVA tenderness. MUSCULOSKELETAL: No obvious deformities. No clubbing. No cyanosis. No edema. NEUROLOGICAL: Awake and alert. No obvious cranial nerve deficits. Motor grossly within normal limits. Normal speech. PSYCHIATRIC: Appropriate mood and affect; insight and judgment normal. (Usha Salazar MD) Data Data Last Documented VS Vital Signs Date Time Temp Pulse Resp B/P (MAP) Pulse Ox O2 Delivery O2 Flow Rate FiO2 10/11/17 10:05 97.9 77 17 135/80 (98) 100 Room Air (Desi Watson MD R1) Orders Orders Complete Blood Count With Diff (10/11/17 08:21) Comprehensive Metabolic Panel (10/11/17 08:21) Lipase (10/11/17 08:21) Lactic Acid (10/11/17 08:21) Urinalysis - C+S If Indicated (10/11/17 08:21) Iv Access Insert/Monitor (10/11/17 08:21) Ecg Monitoring (10/11/17 08:21) Oximetry (10/11/17 08:21) Sodium Chlor 0.9% 1000 Ml Inj (Ns 1000 M (10/11/17 08:21) Sodium Chloride 0.9% Flush (Ns Flush) (10/11/17 08:30) Ondansetron Odt (Zofran Odt) (10/11/17 08:30) Ct Abd/Pel W/O Iv Contrast (10/11/17 09:40) Potassium Chlor 20 Meq Premix (Kcl 20 Me (10/11/17 10:00) Sodium Chlor 0.9% 1000 Ml Inj (Ns 1000 M (10/11/17 10:30) Magnesium (Mg) (10/11/17 10:29) Admit Order (Ed Use Only) (10/11/17 11:12) Potassium Chloride (Kcl) (10/11/17 11:15) (Desi Watson MD R1) Labs Laboratory Tests Test 10/11/17 08:50 10/11/17 09:58 White Blood Count 10.2 TH/MM3 Red Blood Count 4.69 MIL/MM3 Hemoglobin 16.8 GM/DL Hematocrit 47.2 % Mean Corpuscular Volume 100.5 FL Mean Corpuscular Hemoglobin 35.7 PG Mean Corpuscular Hemoglobin Concent 35.6 % Red Cell Distribution Width 13.7 % Platelet Count 290 TH/MM3 Mean Platelet Volume 7.8 FL Neutrophils (%) (Auto) 78.5 % Lymphocytes (%) (Auto) 10.8 % Monocytes (%) (Auto) 10.3 % Eosinophils (%) (Auto) 0.0 % Basophils (%) (Auto) 0.4 % Neutrophils # (Auto) 8.0 TH/MM3 Lymphocytes # (Auto) 1.1 TH/MM3 Monocytes # (Auto) 1.1 TH/MM3 Eosinophils # (Auto) 0.0 TH/MM3 Basophils # (Auto) 0.0 TH/MM3 CBC Comment DIFF FINAL Differential Comment Blood Urea Nitrogen 17 MG/DL Creatinine 2.16 MG/DL Random Glucose 150 MG/DL Total Protein 7.7 GM/DL Albumin 4.1 GM/DL Calcium Level 10.5 MG/DL Alkaline Phosphatase 175 U/L Aspartate Amino Transf (AST/SGOT) 181 U/L Alanine Aminotransferase (ALT/SGPT) 72 U/L Total Bilirubin 1.1 MG/DL Sodium Level 121 MEQ/L Potassium Level 2.6 MEQ/L Chloride Level 57 MEQ/L Carbon Dioxide Level 44.4 MEQ/L Anion Gap 20 MEQ/L Estimat Glomerular Filtration Rate 36 ML/MIN Lactic Acid Level 4.9 mmol/L Lipase 1011 U/L Urine Color YELLOW Urine Turbidity CLEAR Urine pH 8.5 Urine Specific Mclain 1.028 Urine Protein 100 mg/dL Urine Glucose (UA) NEG mg/dL Urine Ketones TRACE mg/dL Urine Occult Blood NEG Urine Nitrite NEG Urine Bilirubin NEG Urine Urobilinogen 2.0 MG/DL Urine Leukocyte Esterase NEG Urine RBC LESS THAN 1 /hpf Urine WBC LESS THAN 1 /hpf Urine Squamous Epithelial Cells <1 /hpf Microscopic Urinalysis Comment CULT NOT INDICATED (Desi Watson MD R1) [facility] Medical Decision Making Medical Screen Exam Complete: Yes Emergency Medical Condition: Yes Interpretation(s) ECG: Sinus tachycardia, rate 101, QTc 470 Labs: Decrease sodium and potassium; elevated lipase, elevated creatinine, elevated anion gap, elevated lactate, elevated AST and alk phos and T bili Last Impressions Abdomen/Pelvis CT 10/11/17 0940 Signed Impressions: Service Date/Time: Wednesday, October 11, 2017 10:11 - CONCLUSION: Hepatomegaly and hepatic steatosis. Mild peripancreatic inflammatory changes are seen characteristic of pancreatitis. Justice Dominguez MD Differential Diagnosis Pancreatitis, gastroenteritis, irritable bowel syndrome, colitis, dehydration, UTI, pyelonephritis Narrative Course Patient presents to the emergency department complaining of vomiting, diarrhea, and abdominal pain 4 days. Also reporting some increased urinary frequency and has bilateral CVA tenderness. Check CBC, chemistry, lactate, lipase, UA with culture sensitivity, and CT abdomen and pelvis. Patient given IV fluids and Zofran ODT. 1104: Patient got 40 mg KCl p.o. in the ER and 20 mEq IV over 2 hours 2, 2 L IV normal saline (Usha Salazar MD) Diagnosis Primary Impression: Pancreatitis Qualified Codes: K85.90 - Acute pancreatitis without necrosis or infection, unspecified Additional Impressions: Renal failure Qualified Codes: N17.9 - Acute kidney failure, unspecified Hypokalemia Admitting Information Admitting Physician Requests: Admit (Usha Salazar MD) Scripts Quetiapine (Seroquel) 200 Mg Tab 200 MG PO HS, #30 TAB 0 Refills Prov: Desi Watson MD R1 10/11/17 Condition: Stable Usha Salazar MD October 11, 2017 09:29 Desi Watson MD R1 October 11, 2017 11:25
[2017-10-11 09:33] LABS: ALBUMIN 4.1 GM/DL (3.4-5.0); ALKALINE PHOSPHATASE 175 U/L (45-117); ALT (GPT) 72 U/L (12-78); AST (GOT) 181 U/L (15-37); BLOOD UREA NITROGEN 17 MG/DL (7-18); CALCIUM 10.5 MG/DL (8.5-10.1); CREATININE 2.16 MG/DL (0.60-1.30); GLOMERULAR FILTRATION RATE 36 ML/MIN (>89); GLUCOSE,RANDOM 150 MG/DL (74-106); TOTAL PROTEIN 7.7 GM/DL (6.4-8.2)
[2017-10-11 09:34] LABS: CHLORIDE 57 MEQ/L (98-107); TOTAL BILIRUBIN ADULT 1.1 MG/DL (0.2-1.0)
[2017-10-11 09:35] LABS: BICARBONATE 44.4 MEQ/L (21.0-32.0)
[2017-10-11 09:38] LABS: SODIUM (NA) 121 MEQ/L (136-145)
[2017-10-11] MEDS: POTASSIUM CHLOR 20 MEQ PREMIX 100 ML IV SCH ×5 (10:00→21:46)
[2017-10-11 10:19] LABS: BILIRUBIN, URINE NEG (NEG); BLOOD, URINE NEG (NEG); GLUCOSE,URINE NEG (NEG); KETONE, URINE TRACE mg/dL (NEG); NITRITE,URINE NEG (NEG); PH, URINE 8.5 (5.0-8.5); SQUAMOUS EPITHELIAL CELL URINE <1 /hpf (0-5); URINE COLOR YELLOW (YELLW/STRAW); URINE LEUKOCYTE ESTERASE NEG (NEG)
[2017-10-11] MEDS ORDERED: SODIUM CHLOR 0.9% 1000 ML INJ 1,000 ML IV ONE (10:30)
--- NOTE | 2017-10-11 10:30 | RADRPT ---
EXAM DATE/TIME: 10/11/2017 10:11 [facility] COMPARISON: CT ABDOMEN & PELVIS W CONTRAST, May 02, 2016, 16:19. BILIARY SCAN (HIDA), November 09, 2016, 10:07. MRCP W/O CONTRAST, November 08, 2016, 15:40. INDICATIONS : Abdominal pain, vomiting, and diarrhea for 4 days ORAL CONTRAST: No oral contrast ingested. RADIATION DOSE: 5.64 CTDIvol (mGy) MEDICAL HISTORY : Gastroesophageal reflux disease. Seizures. SURGICAL HISTORY : Inguinal hernia repair. ENCOUNTER: Initial ACUITY: 4 - 6 days PAIN SCALE: 4/10 LOCATION: abdomen TECHNIQUE: Volumetric scanning of the abdomen and pelvis was performed. Using automated exposure control and ad justment of the mA and/or kV according to patient size, radiation dose was kept as low as reasonably achievable to obtain optimal diagnostic quality images. DICOM format image data is available electro nically for review and comparison. FINDINGS: Lung bases are clear. Osseous structures are intact. No pleural or pericardial effusions. Small hiata l hernia. Hepatomegaly and mild hepatic steatosis. Gallbladder, spleen, adrenals, bilateral kidneys a re unremarkable. There is a small fat containing left inguinal hernia. Urinary bladder unremarkable. The patient is status post hysterectomy. There are no signs of bowel obstruction. There is increased attenuation of the fat surrounding the pancreas with trace fluid in the left anterior pararenal space characteristic of acute pancreatitis. No evidence of appendicitis. CONCLUSION: Hepatomegaly and hepatic steatosis. Mild peripancreatic inflammatory changes are seen characteristic of pancreatitis. Justice Dominguez MD on October 11, 2017 at 10:24 Board Certified Radiologist. This report was verified electronically.
[2017-10-11] MEDS ORDERED: POTASSIUM CHLORIDE 10 MEQ CONTROLLED RELEASE TAB PO ONE (11:15)
--- NOTE | 2017-10-11 11:26 | HHI.HP ---
HPI Service Family Medicine Primary Care Physician Jin Juarez M.D. Admission Diagnosis pancreatitis, hypokalemia, renal failure, hyponatremia, dehydration Diagnoses: International Travel<30 Days: No Contact w/Intl Traveler<30days: No Known Affected Area: No History of Present Illness 31-year-old male with history of alcohol abuse, seizures, history of anorexia, and GERD presents to the ED for abdominal pain. Accompanied by mother. Patient was recently discharged on July 28 under [place] act for alcohol intoxication with behavioral disturbance. Patient states that he has had intermittent, aching, 5 out of 10 mid epigastric abdominal pain radiating to the back and watery, nonbloody diarrhea for the past 4 days. Patient reports multiple episodes of nonbloody vomiting. He states that is unable to keep down food and water for the past couple of days. Endorses decreased urine output and occasional chills. States that he has had more than 12 episodes of diarrhea in a day. Denies recent antibiotic use. His mom states that he has had had hallucinations. He has been talking to himself and has been hearing music. Denies chest pain shortness of breath. Denies history of gallbladder problems. Patient states that his last drink was August 21. He states that he previously drank 4-6 shots of heavy liquor per day. He states that he has weaned himself off. Patient states that his last seizure was in the summer 2016. However, he is unsure if he had a seizure last night due to muscle soreness. He denies tongue biting and loss of bowel/bladder control. He has been on Keppra twice daily. Mom states that he has done well with anorexia in the last 6 months. Highest weight has been 155 pounds. Patient states that he eats to well-balanced meals daily. He denies depression and suicidal ideation. (Desi Watson MD R1) Review of Systems Constitutional: COMPLAINS OF: Weight loss, Chills, DENIES: Fever Eyes: DENIES: Blurred vision Ears, nose, mouth, throat: DENIES: Running Nose Respiratory: DENIES: Cough Cardiovascular: DENIES: Chest pain Gastrointestinal: COMPLAINS OF: Abdominal pain, Diarrhea, Vomiting, DENIES: Bloody stools Genitourinary: DENIES: Dysuria Musculoskeletal: COMPLAINS OF: Muscle aches Integumentary: DENIES: Rash Neurologic: DENIES: Headache Psychiatric: DENIES: Depression, Suicidal Ideation (Desi Watson MD R1) Past Family Social History Past Medical History seizures Anxiety Anorexia Psychiatrist isDr. Perez Past Surgical History Inguinal hernia repair 2004 Reported Medications Reported Meds & Active Scripts Active Seroquel (Quetiapine Fumarate) 200 Mg Tab 200 Mg PO HS Calcium 600 with Vitamin D (Calcium Carbonate-Cholecalciferol) 600-400 mg-Unit Tab 1 Tab PO BID Prozac (Fluoxetine HCl) 40 Mg Cap 40 Mg PO DAILY Reported Multi Vitamin Daily (Multiple Vitamin) 1 Tab Tab Seroquel (Quetiapine Fumarate) 25 Mg Tab 25 Mg PO BID Carafate (Sucralfate) 1 Gm Tab 1 Gm PO TID On empty stomach Lorazepam 1 Mg Tab 1 Mg PO Q8H PRN Protonix (Pantoprazole Sodium) 40 Mg Tab 40 Mg PO DAILY Keppra (Levetiracetam) 500 Mg Tab 500 Mg PO BID (Desi Watson MD R1) Allergies: Coded Allergies: Sulfa (Sulfonamide Antibiotics) (Verified Allergy, Severe, hives, 10/11/17) Family History None Social History Former smoker- 2-3cigarrettes/day since 2003 no other drug use Lives with mom and dad, unemployed (Desi Watson MD R1) Physical Exam Vital Signs Vital Signs Date Time Temp Pulse Resp B/P (MAP) Pulse Ox O2 Delivery O2 Flow Rate FiO2 10/11/17 10:05 97.9 77 17 135/80 (98) 100 Room Air 10/11/17 08:25 17 95 Room Air 10/11/17 08:01 15 10/11/17 07:48 97.1 142 14 122/79 (93) 90 Physical Exam GENERAL: This is a well-nourished, well-developed patient, in no apparent distress. SKIN: No rashes, ecchymoses or lesions. Cool and dry. HEAD: Atraumatic. Normocephalic. No temporal or scalp tenderness. EYES: Pupils equal round and reactive. Extraocular motions intact. No scleral icterus. No injection or drainage. ENT: Nose without bleeding, purulent drainage or septal hematoma. Throat without erythema, tonsillar hypertrophy or exudate. Uvula midline. Airway patent. NECK: Trachea midline. No JVD or lymphadenopathy. Supple, nontender, no meningeal signs. CARDIOVASCULAR: Regular rate and rhythm without murmurs, gallops, or rubs. RESPIRATORY: Clear to auscultation. Breath sounds equal bilaterally. No wheezes , rales, or rhonchi. GASTROINTESTINAL: Mild tenderness to palpation around the mid epigastric region , soft, nondistended, hepatomegaly, no rebound tenderness, no guarding MUSCULOSKELETAL: Extremities without clubbing, cyanosis, or edema. No joint tenderness, effusion, or edema noted. No calf tenderness. Negative Homans sign bilaterally. NEUROLOGICAL: Awake and alert. Laboratory Laboratory Tests Test 10/11/17 08:50 10/11/17 09:58 White Blood Count 10.2 Red Blood Count 4.69 Hemoglobin 16.8 Hematocrit 47.2 Mean Corpuscular Volume 100.5 Mean Corpuscular Hemoglobin 35.7 Mean Corpuscular Hemoglobin Concent 35.6 Red Cell Distribution Width 13.7 Platelet Count 290 Mean Platelet Volume 7.8 Neutrophils (%) (Auto) 78.5 Lymphocytes (%) (Auto) 10.8 Monocytes (%) (Auto) 10.3 Eosinophils (%) (Auto) 0.0 Basophils (%) (Auto) 0.4 Neutrophils # (Auto) 8.0 Lymphocytes # (Auto) 1.1 Monocytes # (Auto) 1.1 Eosinophils # (Auto) 0.0 Basophils # (Auto) 0.0 CBC Comment DIFF FINAL Differential Comment Blood Urea Nitrogen 17 Creatinine 2.16 Random Glucose 150 Total Protein 7.7 Albumin 4.1 Calcium Level 10.5 Alkaline Phosphatase 175 Aspartate Amino Transf (AST/SGOT) 181 Alanine Aminotransferase (ALT/SGPT) 72 Total Bilirubin 1.1 Sodium Level 121 Potassium Level 2.6 Chloride Level 57 Carbon Dioxide Level 44.4 Anion Gap 20 Estimat Glomerular Filtration Rate 36 Lactic Acid Level 4.9 Lipase 1011 Urine Color YELLOW Urine Turbidity CLEAR Urine pH 8.5 Urine Specific [place] 1.028 Urine Protein 100 Urine Glucose (UA) NEG Urine Ketones TRACE Urine Occult Blood NEG Urine Nitrite NEG Urine Bilirubin NEG Urine Urobilinogen 2.0 Urine Leukocyte Esterase NEG Urine RBC LESS THAN 1 Urine WBC LESS THAN 1 Urine Squamous Epithelial Cells <1 Microscopic Urinalysis Comment CULT NOT INDICATED (Desi Watson MD R1) Result Diagram: 10/11/17 0850 10/11/17 0850 Septic Shock Reassessment Septic shock perfusion: reassessment completed (Desi Watson MD R1) Caprini VTE Risk Assessment Caprini VTE Risk Assessment: No/Low Risk (score <= 1) Caprini Risk Assessment Model Point Value = 1 Point Value = 2 Point Value = 3 Point Value = 5 Age 41-60 Minor surgery BMI > 25 kg/m2 Swollen legs Varicose veins or History of unexplained or recurrent spontaneous Oral contraceptives or hormone replacement Sepsis (< 1 month) Serious lung disease, including pneumonia (< 1 month) Abnormal pulmonary function Acute myocardial infarction Congestive heart failure (< 1 month) History of inflammatory bowel disease Medical patient at bed rest Age 61-74 Arthroscopic surgery Major open surgery (> 45 min) Laparoscopic surgery (> 45 min) Malignancy Confined to bed (> 72 hours) Immobilizing plaster cast Central venous access Age >= 75 History of VTE Family history of VTE Factor V Leiden Prothrombin [id number] Lupus anticoagulant Anticardiolipin antibodies Elevated serum homocysteine Heparin-induced thrombocytopenia Other congenital or acquired thrombophilia Stroke (< 1 month) Elective arthroplasty Hip, pelvis, or leg fracture Acute spinal cord injury (< 1 month) Prophylaxis Regimen Total Risk Factor Score Risk Level Prophylaxis Regimen 0-1 Low Early ambulation 2 Moderate Order ONE of the following: *Sequential Compression Device (SCD) *Heparin 5000 units SQ BID 3-4 Higher Order ONE of the following medications: *Heparin 5000 units SQ TID *Enoxaparin/Lovenox 40 mg SQ daily (WT < 150 kg, CrCl > 30 mL/min) *Enoxaparin/Lovenox 30 mg SQ daily (WT < 150 kg, CrCl > 10-29 mL/min) *Enoxaparin/Lovenox 30 mg SQ BID (WT < 150 kg, CrCl > 30 mL/min) AND/OR *Sequential Compression Device (SCD) 5 or more Highest Order ONE of the following medications: *Heparin 5000 units SQ TID (Preferred with Epidurals) *Enoxaparin/Lovenox 40 mg SQ daily (WT < 150 kg, CrCl > 30 mL/min) *Enoxaparin/Lovenox 30 mg SQ daily (WT < 150 kg, CrCl > 10-29 mL/min) *Enoxaparin/Lovenox 30 mg SQ BID (WT < 150 kg, CrCl > 30 mL/min) AND *Sequential Compression Device (SCD) (Desi Watson MD R1) Assessment and Plan Assessment and Plan 31-year-old male with history of alcohol abuse, seizures, history of anorexia, and GERD presents to the ED for abdominal pain secondary to pancreatitis. Patient admitted for further management. Code Status Full code Discussed Condition With Dr. Seo and Dr. Quick (Desi Watson MD R1) Problem List: (1) Pancreatitis ICD Codes: K85.90 - Acute pancreatitis without necrosis or infection, unspecified Status: Acute Plan: Patient with 4 day history of abdominal pain. CT positive for hepatomegaly and hepatic steatosis. Mild peripancreatic inflammatory changes consistent with pancreatitis. Lipase elevated at 1011. Alcohol-induced versus hypertriglyceridemia versus gallstones Ethanol alcohol less than 3 Triglycerides elevated at 163 Ultrasound gallbladder unremarkable Patient received 2 L bolus of normal saline and 40 mEq of KCl p.o. in addition to KCl bolus IV every 2 hours N.p.o. Continue normal saline plus KCl 40 mEq IV 100mls/hr Pain control with morphine 4 mg IV push every 3h as needed (2) Hyponatremia ICD Codes: E87.1 - Hypo-osmolality and hyponatremia Status: Acute Plan: Hyponatremic at 121 on admission possibly due to history of Prozac vs [place] Continue with normal saline plus KCl 100 mls/hr Will continue to trend Na+ with BMP (3) Hypokalemia ICD Codes: E87.6 - Hypokalemia Status: Acute Plan: Hypokalemic at 2.6 on admission Replace with IV KCl and p.o. KCl 40 mEq KCl added to fluids Magnesium 1.2, replace with magnesium sulfate Continue to trend potassium and will get repeat magnesium for the a.m. (4) Alcohol use disorder, moderate, dependence ICD Codes: F10.20 - Alcohol dependence, uncomplicated Status: Acute Plan: Patient reports his last drink was on August 21 Patient reports drinking 4-6 shots of heavy liquor per day for a couple years Patient currently is on CIWA protocol Patient treated with folic acid, multivitamin, thiamine (5) History of seizure ICD Codes: Z87.898 - Personal history of other specified conditions Status: Chronic Plan: Continue home Keppra 500 mg p.o. twice daily (6) Depression ICD Codes: F32.9 - Major depressive disorder, single episode, unspecified Status: Acute Plan: Hold Prozac due to hyponatremia Continue Seroquel 25 mg p.o. twice daily (7) GERD (gastroesophageal reflux disease) ICD Codes: K21.9 - Gastro-esophageal reflux disease without esophagitis Plan: Continue Protonix 40 mg p.o. daily (8) Nutrition, metabolism, and development symptoms ICD Codes: R63.8 - Other symptoms and signs concerning food and fluid intake Plan: Diet: N.p.o. Fluids: NS + KCl 40meq 100mls/hr Every 4, monitor I's and O's Case management consulted DVT ppx: Heparin 5,000 units q12h and SCDs (Desi Watson MD R1) Problem List: (1) Pancreatitis ICD Codes: K85.90 - Acute pancreatitis without necrosis or infection, unspecified Status: Acute Plan: Patient with 4 day history of abdominal pain. CT positive for hepatomegaly and hepatic steatosis. Mild peripancreatic inflammatory changes consistent with pancreatitis. Lipase elevated at 1011. Spoke to the patient at length about cessation of alcohol use in the future. Alcohol-induced versus hypertriglyceridemia versus gallstones Ethanol alcohol less than 3 Triglycerides elevated at 163 Ultrasound gallbladder unremarkable Patient received 2 L bolus of normal saline and 40 mEq of KCl p.o. in addition to KCl bolus IV every 2 hours N.p.o. Continue normal saline plus KCl 40 mEq IV 100mls/hr Pain control with morphine 4 mg IV push every 3h as needed (2) Hyponatremia ICD Codes: E87.1 - Hypo-osmolality and hyponatremia Status: Acute Plan: Hyponatremic at 121 on admission possibly due to history of Prozac vs [place] Continue with normal saline plus KCl 100 mls/hr Will continue to trend Na+ with BMP (3) Hypokalemia ICD Codes: E87.6 - Hypokalemia Status: Acute Plan: Hypokalemic at 2.6 on admission Replace with IV KCl and p.o. KCl 40 mEq KCl added to fluids Magnesium 1.2, replace with magnesium sulfate Continue to trend potassium and will get repeat magnesium for the a.m. (4) Alcohol use disorder, moderate, dependence ICD Codes: F10.20 - Alcohol dependence, uncomplicated Status: Acute Plan: Patient reports his last drink was on August 21 Patient reports drinking 4-6 shots of heavy liquor per day for a couple years Patient currently is on CIWA protocol Patient treated with folic acid, multivitamin, thiamine (5) History of seizure ICD Codes: Z87.898 - Personal history of other specified conditions Status: Chronic Plan: Continue home Keppra 500 mg p.o. twice daily (6) Depression ICD Codes: F32.9 - Major depressive disorder, single episode, unspecified Status: Acute Plan: Hold Prozac due to hyponatremia Continue Seroquel 25 mg p.o. twice daily (7) GERD (gastroesophageal reflux disease) ICD Codes: K21.9 - Gastro-esophageal reflux disease without esophagitis Plan: Continue Protonix 40 mg p.o. daily (8) Nutrition, metabolism, and development symptoms ICD Codes: R63.8 - Other symptoms and signs concerning food and fluid intake Plan: Diet: N.p.o. Fluids: NS + KCl 40meq 100mls/hr Every 4, monitor I's and O's Case management consulted DVT ppx: Heparin 5,000 units q12h and SCDs See the residents documentation for details. I saw and evaluated the patient regarding the seymour portions of this evaluation and agree with the residents findings and plans as written. Parts of this note were created using [employer] voice recognition software program. While efforts were made to correct any mistakes made by this software, some mistakes, errors, and omissions may remain in the final note that were not caught when the note was originally created. Plan of care was discussed and agreed upon with the patient as specifically documented in the above note. An opportunity to ask questions with explanation was provided. Patient voiced understanding on all information reviewed and discussed. (Paul Seo MD) Problem Qualifiers (1) Pancreatitis: Qualified Codes: K85.90 - Acute pancreatitis without necrosis or infection, unspecified Desi Watson MD R1 October 11, 2017 11:26 Paul Seo MD October 12, 2017 12:52
[2017-10-11] MEDS ORDERED: SERO200T PO (11:33)
[2017-10-11] MEDS ORDERED: NALOXONE HCL 0.4 MG/ML AMP IV PUSH PRN (11:45)
[2017-10-11] MEDS ORDERED: ACETAMINOPHEN 325 MG TAB PO PRN (11:45)
[2017-10-11] MEDS ORDERED: LORazepam 2 MG/ML VIAL IV PUSH PRN ×4 (12:00)
[2017-10-11] MEDS ORDERED: LORazepam 1 MG TAB PO PRN (12:00)
[2017-10-11] MEDS ORDERED: LORazepam 2 MG TAB PO PRN (12:00)
[2017-10-11] MEDS ORDERED: FLUMAZENIL 0.5 MG/5 ML VIAL IV PUSH PRN (12:00)
[2017-10-11] MEDS: PANTOPRAZOLE SOD 40 MG DELAYED RELEASE TAB PO SCH (12:01)
[2017-10-11] MEDS: levETIRAcetam 500 MG TAB PO SCH ×2 (12:01→21:05)
[2017-10-11] MEDS: SODIUM CHLORIDE 0.9% FLUSH 10 ML FLUSH IV FLUSH SCH ×2 (12:12→21:16)
[2017-10-11] MEDS: FOLIC ACID 1 MG TAB PO SCH (12:36)
[2017-10-11] MEDS: THIAMINE HCL 100 MG TAB PO SCH (12:36)
[2017-10-11] MEDS: MULTIVITAMINS/MINERALS THERAPEUTIC TAB PO SCH (12:36)
[2017-10-11] MEDS: HEPARIN SODIUM - SQ 10,000 UNITS/ML VIAL SQ SCH (12:41)
[2017-10-11 12:45] LABS: CHOLESTEROL 241 MG/DL (120-200); TRIGLYCERIDES 163 MG/DL (42-150)
[2017-10-11 12:47] LABS: CHOLESTEROL/ HDL RATIO 2.43 RATIO; LDL CHOLESTEROL 109 MG/DL (0-99)
[2017-10-11] MEDS ORDERED: KETOROLAC TROMETHAMINE 30 MG/ML (IVP) VIAL IV PUSH SCH (13:00)
--- NOTE | 2017-10-11 13:10 | RADRPT ---
EXAM DATE/TIME: 10/11/2017 12:36 [facility] COMPARISON: US ABDOMEN - GALLBLADDER, August 25, 2015, 1:03. CT ABDOMEN & PELVIS W CONTRAST, May 02, 2016, 1 6:19. INDICATIONS : Right upper quadrant pain. MEDICAL HISTORY : Gastroesophageal reflux disease. Seizures. History of head trauma. SURGICAL HISTORY : Inguinal hernia repair. ENCOUNTER: Initial ACUITY: 4-6 days PAIN SCORE: 3/10 LOCATION: Right upper quadrant MEASUREMENTS: LIVER: 19.6 cm length COMMON DUCT: 5 mm RIGHT KIDNEY: 10.4 x 5.1 x 5.1 cm FINDINGS: LIVER: Normal echotexture without focal lesion or ductal dilatation. COMMON DUCT: No intraluminal mass or stone visualized. GALLBLADDER: Contains no stones, demonstrates no wall thickening or pericholecystic fluid. PANCREAS: The visualized portions are within normal limits. RIGHT KIDNEY: No evidence of hydronephrosis, stone, or mass. CONCLUSION: Hepatomegaly otherwise unremarkable. Justice Dominguez MD on October 11, 2017 at 13:05 Board Certified Radiologist. This report was verified electronically.
[2017-10-11] MEDS: LORazepam 1 MG TAB PO PRN (14:16)
[2017-10-11 17:26] LABS: LACTIC ACID SEPSIS PROTOCOL 2.9 mmol/L (0.4-2.0)
[2017-10-11 17:40] LABS: BICARBONATE 37.2 MEQ/L (21.0-32.0); CALCIUM 8.7 MG/DL (8.5-10.1); CREATININE 1.78 MG/DL (0.60-1.30)
[2017-10-11] MEDS: ONDANSETRON ODT 4 MG TAB PO PRN (19:31)
[2017-10-11] MEDS: MORPHINE SULFATE 4 MG/ML INJ IV PUSH PRN ×2 (19:39→22:53)
[2017-10-11] MEDS ORDERED: cloNIDine HCL 0.1 MG TAB PO PRN (19:45)
[2017-10-11] MEDS ORDERED: POTASSIUM CHLORIDE 25 MEQ EFFERVESCENT TAB PO ONE (20:00)
[2017-10-11] MEDS ORDERED: MAGNESIUM SULFATE 1 GM PREMIX 100 ML IV ONE (21:00)
[2017-10-11] MEDS: QUEtiapine FUMARATE 25 MG TAB PO SCH (21:05)
[2017-10-11] MEDS: NS + KCL 40 MEQ INJ 1,000 ML IV SCH (23:58)
[2017-10-12] VITALS (11 sets, daily range): BP systolic 111–144; BP diastolic 80–111; PULSE 86–121; RESP 16–20; TEMP 97.6–98.3; O2SAT 95–99
[2017-10-12 00:38] LABS: BICARBONATE 36.9 MEQ/L (21.0-32.0); CALCIUM 8.2 MG/DL (8.5-10.1); CREATININE 1.69 MG/DL (0.60-1.30)
[2017-10-12] MEDS ORDERED: POTASSIUM CHLORIDE 25 MEQ EFFERVESCENT TAB PO ONE ×2 (01:00→15:00)
[2017-10-12] MEDS: ONDANSETRON ODT 4 MG TAB PO PRN (01:02)
[2017-10-12] MEDS: HEPARIN SODIUM - SQ 10,000 UNITS/ML VIAL SQ SCH ×2 (01:02→11:45)
[2017-10-12] MEDS: MORPHINE SULFATE 4 MG/ML INJ IV PUSH PRN ×6 (01:47→21:39)
[2017-10-12 08:13] LABS: AUTOMATED NEUTROPHIL # 7.1 TH/MM3 (1.8-7.7); BASOPHIL % 0.4 % (0.0-2.0); EOSINOPHIL # 0.2 TH/MM3 (0-0.4); EOSINOPHIL % 1.7 % (0.0-4.0); HEMATOCRIT 41.3 % (39.0-51.0); HEMOGLOBIN 14.5 GM/DL (13.0-17.0); LYMPH % 17.1 % (9.0-44.0); LYMPHOCYTE # 1.7 TH/MM3 (1.0-4.8); MEAN CELL VOLUME 102.1 FL (80.0-100.0); MEAN CORPUSCULAR HEMOGLOBIN 35.9 PG (27.0-34.0); MEAN CORPUSCULAR HGB CONC 35.2 % (32.0-36.0); MONO % 8.4 % (0.0-8.0); MONOCYTE # 0.8 TH/MM3 (0-0.9); NEUT % 72.4 % (16.0-70.0); PLATELET COUNT 240 TH/MM3 (150-450); RED BLOOD COUNT 4.05 MIL/MM3 (4.50-5.90); RED CELL DISTRIBUTION WIDTH 13.8 % (11.6-17.2); WHITE BLOOD COUNT 9.8 TH/MM3 (4.0-11.0)
[2017-10-12] MEDS: THIAMINE HCL 100 MG TAB PO SCH (08:15)
[2017-10-12] MEDS: QUEtiapine FUMARATE 25 MG TAB PO SCH ×2 (08:15→21:38)
[2017-10-12] MEDS: levETIRAcetam 500 MG TAB PO SCH ×2 (08:16→21:38)
[2017-10-12] MEDS: SODIUM CHLORIDE 0.9% FLUSH 10 ML FLUSH IV FLUSH SCH ×2 (08:16→21:39)
[2017-10-12] MEDS: PANTOPRAZOLE SOD 40 MG DELAYED RELEASE TAB PO SCH (08:16)
[2017-10-12] MEDS: MULTIVITAMINS/MINERALS THERAPEUTIC TAB PO SCH (08:16)
[2017-10-12] MEDS: FOLIC ACID 1 MG TAB PO SCH (08:16)
[2017-10-12] MEDS: LORazepam 1 MG TAB PO PRN ×2 (08:23→16:40)
[2017-10-12 08:36] LABS: BICARBONATE 34.3 MEQ/L (21.0-32.0); CALCIUM 8.4 MG/DL (8.5-10.1); CREATININE 1.38 MG/DL (0.60-1.30); MAGNESIUM 1.9 MG/DL (1.5-2.5)
[2017-10-12] MEDS ORDERED: FLUoxetine HCL 20 MG CAP PO SCH (09:00)
[2017-10-12] MEDS ORDERED: POTASSIUM CHLORIDE 20 MEQ CONTROLLED RELEASE TAB PO ONE (09:00)
[2017-10-12] MEDS: NS + KCL 40 MEQ INJ 1,000 ML IV SCH ×2 (10:09→20:26)
--- NOTE | 2017-10-12 11:18 | HHI.FPPN ---
Subjective Remarks No acute events overnight. Vital signs within normal limits. Patient lying in bed, doing well. Patient reports that he had slight mid epigastric abdominal pain radiating to the back, but relieved with morphine. Patient states that he is hungry and is ready to eat. He denies vomiting, nausea, diarrhea, chest pain , shortness of breath, and fevers. No other complaints. (Desi Watson MD R1) Objective Vitals Vital Signs Date Time Temp Pulse Resp B/P (MAP) Pulse Ox O2 Delivery O2 Flow Rate FiO2 10/12/17 08:00 Room Air 10/12/17 08:00 110 10/12/17 08:00 97.7 88 17 143/105 (118) 96 10/12/17 04:22 97.9 93 16 140/89 (106) 97 10/12/17 04:06 94 10/12/17 04:00 Room Air 10/12/17 00:17 90 10/12/17 00:00 Room Air 10/11/17 23:32 98.4 84 16 145/98 (114) 94 10/11/17 20:02 89 10/11/17 20:00 Room Air 10/11/17 19:22 98.8 92 16 157/101 (119) 91 10/11/17 16:00 108 10/11/17 14:15 97.8 93 16 151/106 (121) 93 10/11/17 12:47 98.1 86 16 122/78 (93) 95 I/O 10/11/17 10/11/17 10/11/17 10/12/17 10/12/17 10/12/17 07:00 15:00 23:00 07:00 15:00 23:00 Intake Total 2000 ml 1000 ml 683 ml Output Total 550 ml Balance 2000 ml 1000 ml 133 ml Intake Oral 0 ml IV Total 2000 ml 1000 ml 683 ml Output Urine Total 550 ml # Voids 1 # Bowel Movements 1 (Desi Watson MD R1) Result Diagram: 10/12/17 0600 10/12/17 0600 Objective Remarks GENERAL: This is a well-nourished, well-developed patient, in no apparent distress. SKIN: No rashes, ecchymoses or lesions. Cool and dry. HEAD: Atraumatic. Normocephalic. No temporal or scalp tenderness. EYES: Pupils equal round and reactive. Extraocular motions intact. No scleral icterus. No injection or drainage. ENT: Nose without bleeding, purulent drainage or septal hematoma. Throat without erythema, tonsillar hypertrophy or exudate. Uvula midline. Airway patent. NECK: Trachea midline. No JVD or lymphadenopathy. Supple, nontender, no meningeal signs. CARDIOVASCULAR: Regular rate and rhythm without murmurs, gallops, or rubs. RESPIRATORY: Clear to auscultation. Breath sounds equal bilaterally. No wheezes , rales, or rhonchi. GASTROINTESTINAL: Mild tenderness to palpation around the mid epigastric region , soft, nondistended,no rebound tenderness, no guarding MUSCULOSKELETAL: Extremities without clubbing, cyanosis, or edema. No joint tenderness, effusion, or edema noted. No calf tenderness. Negative Homans sign bilaterally. NEUROLOGICAL: Awake and alert. (Desi Watson MD R1) A/P Assessment and Plan 31-year-old male with history of alcohol abuse, seizures, history of anorexia, and GERD presents to the ED for abdominal pain secondary to pancreatitis. Patient admitted for further management. Discharge Planning Anticipate discharge in 1-2 days (Desi Watson MD R1) Problem List: (1) Pancreatitis ICD Codes: K85.90 - Acute pancreatitis without necrosis or infection, unspecified Status: Acute Plan: Patient with 4 day history of abdominal pain. CT positive for hepatomegaly and hepatic steatosis. Mild peripancreatic inflammatory changes consistent with pancreatitis. Alcohol-induced versus hypertriglyceridemia versus gallstones Ethanol alcohol less than 3 Triglycerides elevated at 163 Ultrasound gallbladder unremarkable Lipase elevated at 1011 on admission, slightly increased to 1042 today, will continue to trend this afternoon Patient received 2 L bolus of normal saline and 40 mEq of KCl p.o. in addition to KCl bolus IV every 2 hours We will transition to a clear liquid diet this morning, if tolerating will transition to a regular diet Continue normal saline plus KCl 40 mEq IV 100mls/hr Pain control with morphine 4 mg IV push every 3h as needed (2) Hyponatremia ICD Codes: E87.1 - Hypo-osmolality and hyponatremia Status: Acute Plan: Hyponatremic at 121 on admission possibly due to history of Prozac vs Potomania Sodium improved to 131 Continue with normal saline plus KCl 100 mls/hr Will continue to trend Na+ with BMP (3) Hypokalemia ICD Codes: E87.6 - Hypokalemia Status: Acute Plan: Hypokalemic at 2.6 on admission Potassium improved to 3.0 this morning, replace orally 40 mEq KCl added to fluids Magnesium 1.2 on admission, replace with magnesium sulfate, improved to 1.9 Continue to trend electrolytes (4) Alcohol use disorder, moderate, dependence ICD Codes: F10.20 - Alcohol dependence, uncomplicated Status: Acute Plan: Patient reports his last drink was on August 21 Patient reports drinking 4-6 shots of heavy liquor per day for a couple years Patient currently is on CIWA protocol Patient treated with folic acid, multivitamin, thiamine (5) History of seizure ICD Codes: Z87.898 - Personal history of other specified conditions Status: Chronic Plan: Continue home Keppra 500 mg p.o. twice daily (6) Depression ICD Codes: F32.9 - Major depressive disorder, single episode, unspecified Status: Acute Plan: Hold Prozac due to hyponatremia Continue Seroquel 25 mg p.o. twice daily (7) GERD (gastroesophageal reflux disease) ICD Codes: K21.9 - Gastro-esophageal reflux disease without esophagitis Plan: Continue Protonix 40 mg p.o. daily (8) Nutrition, metabolism, and development symptoms ICD Codes: R63.8 - Other symptoms and signs concerning food and fluid intake Plan: Diet: Transition to clear liquid diet Fluids: NS + KCl 40meq 100mls/hr Every 4, monitor I's and O's Case management consulted DVT ppx: Heparin 5,000 units q12h and SCDs (Desi Watson MD R1) Problem List: (1) Pancreatitis ICD Codes: K85.90 - Acute pancreatitis without necrosis or infection, unspecified Status: Acute Plan: Patient with 4 day history of abdominal pain. CT positive for hepatomegaly and hepatic steatosis. Mild peripancreatic inflammatory changes consistent with pancreatitis. Alcohol-induced versus hypertriglyceridemia versus gallstones Ethanol alcohol less than 3 Triglycerides elevated at 163 Ultrasound gallbladder unremarkable Lipase elevated at 1011 on admission, slightly increased to 1042 today, will continue to trend this afternoon Patient received 2 L bolus of normal saline and 40 mEq of KCl p.o. in addition to KCl bolus IV every 2 hours We will transition to a clear liquid diet this morning, if tolerating will transition to a regular diet Continue normal saline plus KCl 40 mEq IV 100mls/hr Pain control with morphine 4 mg IV push every 3h as needed (2) Hyponatremia ICD Codes: E87.1 - Hypo-osmolality and hyponatremia Status: Acute Plan: Hyponatremic at 121 on admission possibly due to history of Prozac vs Potomania Sodium improved to 131 Continue with normal saline plus KCl 100 mls/hr Will continue to trend Na+ with BMP (3) Hypokalemia ICD Codes: E87.6 - Hypokalemia Status: Acute Plan: Hypokalemic at 2.6 on admission Potassium improved to 3.0 this morning, replace orally 40 mEq KCl added to fluids Magnesium 1.2 on admission, replace with magnesium sulfate, improved to 1.9 Continue to trend electrolytes (4) Alcohol use disorder, moderate, dependence ICD Codes: F10.20 - Alcohol dependence, uncomplicated Status: Acute Plan: Patient reports his last drink was on August 21 Patient reports drinking 4-6 shots of heavy liquor per day for a couple years Patient currently is on [facility] protocol Patient treated with folic acid, multivitamin, thiamine (5) History of seizure ICD Codes: Z87.898 - Personal history of other specified conditions Status: Chronic Plan: Continue home Keppra 500 mg p.o. twice daily (6) Depression ICD Codes: F32.9 - Major depressive disorder, single episode, unspecified Status: Acute Plan: Hold Prozac due to hyponatremia Continue Seroquel 25 mg p.o. twice daily (7) GERD (gastroesophageal reflux disease) ICD Codes: K21.9 - Gastro-esophageal reflux disease without esophagitis Plan: Continue Protonix 40 mg p.o. daily (8) Nutrition, metabolism, and development symptoms ICD Codes: R63.8 - Other symptoms and signs concerning food and fluid intake Plan: Diet: Transition to clear liquid diet Fluids: NS + KCl 40meq 100mls/hr Every 4, monitor I's and O's Case management consulted DVT ppx: Heparin 5,000 units q12h and SCDs See the residents documentation for details. I saw and evaluated the patient regarding the seymour portions of this evaluation and agree with the residents findings and plans as written. Parts of this note were created using [employer] voice recognition software program. While efforts were made to correct any mistakes made by this software, some mistakes, errors, and omissions may remain in the final note that were not caught when the note was originally created. Plan of care was discussed and agreed upon with the patient as specifically documented in the above note. An opportunity to ask questions with explanation was provided. Patient voiced understanding on all information reviewed and discussed. (Paul Seo MD) Problem Qualifiers (1) Pancreatitis: Qualified Codes: K85.90 - Acute pancreatitis without necrosis or infection, unspecified Desi Watson MD R1 October 12, 2017 11:18 Paul Seo MD October 12, 2017 12:54
[2017-10-12 14:43] LABS: BICARBONATE 33.9 MEQ/L (21.0-32.0); CALCIUM 7.8 MG/DL (8.5-10.1); CREATININE 1.17 MG/DL (0.60-1.30)
[2017-10-12] MEDS ORDERED: CALCIUM CARBONATE 500 MG CHEWABLE TAB CHEW ONE (15:00)
--- NOTE | 2017-10-12 22:52 | EKG ---
Date Performed: 10/11/2017 Time Performed: 11:25:09 PTAGE: 31 years EKG: SINUS TACHYCARDIA POSSIBLE LEFT ATRIAL ENLARGEMENT NONSPECIFIC ST & T-WAVE ABNORMALITY ABNO RMAL RHYTHM ECG NO PREVIOUS TRACING DOCTOR: Collins Costa Interpretating Date/Time 10/12/2017 22:49:42
[2017-10-13] VITALS (9 sets, daily range): BP systolic 115–137; BP diastolic 69–109; PULSE 84–124; RESP 16–20; TEMP 97.2–99.1; O2SAT 96–100
[2017-10-13] MEDS: LORazepam 1 MG TAB PO PRN ×3 (00:41→17:01)
[2017-10-13] MEDS: MORPHINE SULFATE 4 MG/ML INJ IV PUSH PRN ×8 (00:41→22:29)
[2017-10-13] MEDS: HEPARIN SODIUM - SQ 10,000 UNITS/ML VIAL SQ SCH ×2 (00:48→13:14)
[2017-10-13 05:06] LABS: HEMOGLOBIN 14.1 GM/DL (13.0-17.0); MEAN CELL VOLUME 104.3 FL (80.0-100.0); MEAN CORPUSCULAR HEMOGLOBIN 35.8 PG (27.0-34.0); MEAN CORPUSCULAR HGB CONC 34.3 % (32.0-36.0); MEAN PLATELET VOLUME 7.8 FL (7.0-11.0); PLATELET COUNT 213 TH/MM3 (150-450); RED BLOOD COUNT 3.93 MIL/MM3 (4.50-5.90); RED CELL DISTRIBUTION WIDTH 13.7 % (11.6-17.2)
[2017-10-13 05:45] LABS: CALCIUM 7.2 MG/DL (8.5-10.1); CREATININE 1.09 MG/DL (0.60-1.30)
[2017-10-13] MEDS: NS + KCL 40 MEQ INJ 1,000 ML IV SCH ×3 (05:48→21:00)
[2017-10-13 06:00] LABS: CALCIUM-PROTEIN CORRECTED 7.8 MG/DL (8.5-10.1); TOTAL PROTEIN 5.9 GM/DL (6.4-8.2)
[2017-10-13] MEDS ORDERED: CALCIUM CARBONATE 500 MG CHEWABLE TAB CHEW ONE (07:00)
[2017-10-13] MEDS: PANTOPRAZOLE SOD 40 MG DELAYED RELEASE TAB PO SCH (08:39)
[2017-10-13] MEDS: levETIRAcetam 500 MG TAB PO SCH ×2 (08:39→20:17)
[2017-10-13] MEDS: FOLIC ACID 1 MG TAB PO SCH (08:39)
[2017-10-13] MEDS: SODIUM CHLORIDE 0.9% FLUSH 10 ML FLUSH IV FLUSH SCH ×2 (08:39→19:35)
[2017-10-13] MEDS: MULTIVITAMINS/MINERALS THERAPEUTIC TAB PO SCH (08:39)
[2017-10-13] MEDS: THIAMINE HCL 100 MG TAB PO SCH (08:39)
[2017-10-13] MEDS: QUEtiapine FUMARATE 25 MG TAB PO SCH ×2 (08:39→20:17)
--- NOTE | 2017-10-13 10:10 | HHI.FPPN ---
Subjective Remarks Patient denies any issues overnight. Still experiencing midepigastric pain that radiates to the back, grading it a 6- 7/10, but it is resolved with morphine. He is tolerating a regular diet, and his appetite is increased. He denies any chest pain, shortness of breath, nausea, vomiting, diarrhea, or dysuria. Remaining ROS negative. (EkoLola MD R2) Objective Vitals Vital Signs Date Time Temp Pulse Resp B/P (MAP) Pulse Ox O2 Delivery O2 Flow Rate FiO2 10/13/17 08:00 Room Air 10/13/17 08:00 89 10/13/17 06:15 97.6 98 16 135/74 (94) 100 10/13/17 04:02 95 10/13/17 00:21 93 10/12/17 23:19 98.3 100 18 144/91 (108) 99 10/12/17 20:10 98.1 95 20 111/80 (90) 95 10/12/17 20:05 88 10/12/17 20:00 Room Air 10/12/17 17:49 99 21 10/12/17 16:00 97.8 100 18 141/111 (121) 99 10/12/17 16:00 121 10/12/17 12:00 86 10/12/17 12:00 97.6 95 17 135/107 (116) 96 10/12/17 11:34 96 I/O 10/12/17 10/12/17 10/12/17 10/13/17 10/13/17 10/13/17 07:00 15:00 23:00 07:00 15:00 23:00 Intake Total 683 ml 2200 ml 1240 ml Output Total 550 ml Balance 133 ml 2200 ml 1240 ml Intake Oral 0 ml 1200 ml 240 ml IV Total 683 ml 1000 ml 1000 ml Output Urine Total 550 ml # Voids 1 5 5 # Bowel Movements 1 1 (EkoLola MD R2) Result Diagram: 10/13/17 0425 10/13/17 0430 Objective Remarks GENERAL: This is a well-nourished, well-developed patient, eating breakfast in bed. SKIN: No rashes, ecchymoses or lesions. Cool and dry. CARDIOVASCULAR: Tachycardic, but regular rhythm without murmurs, gallops, or rubs. RESPIRATORY: Clear to auscultation. Breath sounds equal bilaterally. No wheezes , rales, or rhonchi. GASTROINTESTINAL: Decreased bowel sounds, Moderate tenderness to palpation around the RUQ, mid epigastric region, and LUQ MUSCULOSKELETAL: Extremities without clubbing, cyanosis, or edema. No joint tenderness, effusion, or edema noted. No calf tenderness. NEUROLOGICAL: Awake and alert. (Lola Quick MD R2) A/P Assessment and Plan 31-year-old male with history of alcohol abuse, seizures, history of anorexia, and GERD presented to the ED for abdominal pain secondary to pancreatitis. Patient was admitted for further management. Discharge Planning Anticipate discharge in 1 day (Lola Quick MD R2) Problem List: (1) Pancreatitis ICD Codes: K85.90 - Acute pancreatitis without necrosis or infection, unspecified Status: Acute Plan: Patient with 4-day history of abdominal pain. CT positive for hepatomegaly and hepatic steatosis. Mild peripancreatic inflammatory changes consistent with pancreatitis. Lipase elevated at 1011 on admission, decreased to 893 yesterday afternoon, but has increased back to 973 this morning; will continue to trend this afternoon. Upgraded to a regular diet but still having significant abdominal pain * Encouraged to take it easy with food and eat 50% of his plate slowly Due to history of alcohol abuse, hepatomegaly, and hepatic steatosis along with this episode of acute pancreatitis, patient may benefit from following up with GI as outpatient once discharged. (2) Hyponatremia ICD Codes: E87.1 - Hypo-osmolality and hyponatremia Status: Acute Plan: Hyponatremic at 121 on admission possibly due to history of Prozac vs Potomania Sodium now improved to 135 Continue with normal saline plus KCl 100 mls/hr Will continue to trend Na+ with BMP (3) Hypokalemia ICD Codes: E87.6 - Hypokalemia Status: Acute Plan: Hypokalemic at 2.6 on admission Potassium now normalized at 3.7 this morning, replace orally as needed 40 mEq KCl added to fluids Continue to trend electrolytes (4) Alcohol use disorder, moderate, dependence ICD Codes: F10.20 - Alcohol dependence, uncomplicated Status: Acute Plan: Patient reports his last drink was on August 21 Patient reports drinking 4-6 shots of heavy liquor per day for a couple years Patient currently is on CIWA protocol Patient treated with folic acid, multivitamin, thiamine (5) History of seizure ICD Codes: Z87.898 - Personal history of other specified conditions Status: Chronic Plan: Continue home Keppra 500 mg p.o. twice daily (6) Depression ICD Codes: F32.9 - Major depressive disorder, single episode, unspecified Status: Acute Plan: Hold Prozac due to hyponatremia Continue Seroquel 25 mg p.o. twice daily recommend patient follow up with his psychiatrist Dr. Perez as an outpatient to discuss any possible changes. (7) GERD (gastroesophageal reflux disease) ICD Codes: K21.9 - Gastro-esophageal reflux disease without esophagitis Plan: Continue Protonix 40 mg p.o. daily (8) Nutrition, metabolism, and development symptoms ICD Codes: R63.8 - Other symptoms and signs concerning food and fluid intake Plan: Diet: Regular diet Fluids: NS + KCl 40meq 100mls/hr Monitor I's and O's DVT ppx: Heparin 5,000 units q12h and SCDs SDW Dr. Seo, Dr. Watson, and Darrian Hutton, MS4 (Lola Quick MD R2) Problem List: (1) Pancreatitis ICD Codes: K85.90 - Acute pancreatitis without necrosis or infection, unspecified Status: Acute Plan: Patient with 4-day history of abdominal pain. CT positive for hepatomegaly and hepatic steatosis. Mild peripancreatic inflammatory changes consistent with pancreatitis. Lipase elevated at 1011 on admission, decreased to 893 yesterday afternoon, but has increased back to 973 this morning; will continue to trend this afternoon. Upgraded to a regular diet but still having significant abdominal pain * Encouraged to take it easy with food and eat 50% of his plate slowly Due to history of alcohol abuse, hepatomegaly, and hepatic steatosis along with this episode of acute pancreatitis, patient may benefit from following up with GI as outpatient once discharged. (2) Hyponatremia ICD Codes: E87.1 - Hypo-osmolality and hyponatremia Status: Acute Plan: Hyponatremic at 121 on admission possibly due to history of Prozac vs Potomania Sodium now improved to 135 Continue with normal saline plus KCl 100 mls/hr Will continue to trend Na+ with BMP (3) Hypokalemia ICD Codes: E87.6 - Hypokalemia Status: Acute Plan: Hypokalemic at 2.6 on admission Potassium now normalized at 3.7 this morning, replace orally as needed 40 mEq KCl added to fluids Continue to trend electrolytes (4) Alcohol use disorder, moderate, dependence ICD Codes: F10.20 - Alcohol dependence, uncomplicated Status: Acute Plan: Patient reports his last drink was on August 21 Patient reports drinking 4-6 shots of heavy liquor per day for a couple years Patient currently is on CIWA protocol Patient treated with folic acid, multivitamin, thiamine (5) History of seizure ICD Codes: Z87.898 - Personal history of other specified conditions Status: Chronic Plan: Continue home Keppra 500 mg p.o. twice daily (6) Depression ICD Codes: F32.9 - Major depressive disorder, single episode, unspecified Status: Acute Plan: Hold Prozac due to hyponatremia Continue Seroquel 25 mg p.o. twice daily recommend patient follow up with his psychiatrist Dr. Perez as an outpatient to discuss any possible changes. (7) GERD (gastroesophageal reflux disease) ICD Codes: K21.9 - Gastro-esophageal reflux disease without esophagitis Plan: Continue Protonix 40 mg p.o. daily (8) Nutrition, metabolism, and development symptoms ICD Codes: R63.8 - Other symptoms and signs concerning food and fluid intake Plan: Diet: Regular diet Fluids: NS + KCl 40meq 100mls/hr Monitor I's and O's DVT ppx: Heparin 5,000 units q12h and SCDs SDW Dr. Seo, Dr. Watson, and Darrian Hutton, MS4 See the residents documentation for details. I saw and evaluated the patient regarding the seymour portions of this evaluation and agree with the residents findings and plans as written. Parts of this note were created using [employer] voice recognition software program. While efforts were made to correct any mistakes made by this software, some mistakes, errors, and omissions may remain in the final note that were not caught when the note was originally created. Plan of care was discussed and agreed upon with the patient as specifically documented in the above note. An opportunity to ask questions with explanation was provided. Patient voiced understanding on all information reviewed and discussed. (Paul Seo MD) Problem Qualifiers (1) Pancreatitis: Qualified Codes: K85.90 - Acute pancreatitis without necrosis or infection, unspecified Lola Quick MD R2 October 13, 2017 10:10 Paul Seo MD October 13, 2017 12:30
--- NOTE | 2017-10-13 20:38 | HHI.DCPOC ---
Discharge Care Plan Diagnosis: (1) Pancreatitis (2) Hyponatremia (3) Hypokalemia Goals to Promote Your Health * To prevent worsening of your condition and complications * To maintain your health at the optimal level Directions to Meet Your Goals Take your medications as prescribed Follow your dietary instruction Follow activity as directed Keep your appointments as scheduled Take your immunizations and boosters as scheduled If your symptoms worsen call your PCP, if no PCP go to Urgent Care Center or Emergency Room Smoking is Dangerous to Your Health. Avoid second hand smoke Call the 24-hour hour crisis hotline for domestic abuse at Lola Quick MD R2 October 13, 2017 20:38 Paul Seo MD October 15, 2017 10:02
[2017-10-14] VITALS (10 sets, daily range): BP systolic 119–144; BP diastolic 76–93; PULSE 91–140; RESP 16–18; TEMP 97.6–98.5; O2SAT 98–100
[2017-10-14] MEDS: HEPARIN SODIUM - SQ 10,000 UNITS/ML VIAL SQ SCH ×2 (01:28→12:07)
[2017-10-14] MEDS: MORPHINE SULFATE 4 MG/ML INJ IV PUSH PRN ×5 (01:28→22:04)
[2017-10-14] MEDS: LORazepam 1 MG TAB PO PRN ×3 (01:28→20:23)
[2017-10-14] MEDS: NS + KCL 40 MEQ INJ 1,000 ML IV SCH ×2 (01:34→17:47)
[2017-10-14 03:14] LABS: HEMATOCRIT 36.3 % (39.0-51.0); HEMOGLOBIN 12.6 GM/DL (13.0-17.0); MEAN CELL VOLUME 103.5 FL (80.0-100.0); MEAN CORPUSCULAR HEMOGLOBIN 35.8 PG (27.0-34.0); MEAN CORPUSCULAR HGB CONC 34.6 % (32.0-36.0); MEAN PLATELET VOLUME 8.2 FL (7.0-11.0); PLATELET COUNT 206 TH/MM3 (150-450); RED BLOOD COUNT 3.51 MIL/MM3 (4.50-5.90); RED CELL DISTRIBUTION WIDTH 13.4 % (11.6-17.2); WHITE BLOOD COUNT 6.1 TH/MM3 (4.0-11.0)
[2017-10-14 04:11] LABS: BICARBONATE 25.5 MEQ/L (21.0-32.0); CALCIUM 6.8 MG/DL (8.5-10.1); CREATININE 0.96 MG/DL (0.60-1.30)
[2017-10-14 04:34] LABS: CALCIUM-PROTEIN CORRECTED 7.6 MG/DL (8.5-10.1); TOTAL PROTEIN 5.6 GM/DL (6.4-8.2)
[2017-10-14] MEDS ORDERED: CALCIUM CARBONATE 500 MG CHEWABLE TAB CHEW ONE (07:15)
[2017-10-14] MEDS: SODIUM CHLORIDE 0.9% FLUSH 10 ML FLUSH IV FLUSH SCH ×2 (09:00→20:26)
[2017-10-14] MEDS: QUEtiapine FUMARATE 25 MG TAB PO SCH (09:43)
[2017-10-14] MEDS: PANTOPRAZOLE SOD 40 MG DELAYED RELEASE TAB PO SCH (09:43)
[2017-10-14] MEDS: THIAMINE HCL 100 MG TAB PO SCH (09:43)
[2017-10-14] MEDS: FOLIC ACID 1 MG TAB PO SCH (09:43)
[2017-10-14] MEDS: levETIRAcetam 500 MG TAB PO SCH ×2 (09:43→20:24)
[2017-10-14] MEDS: MULTIVITAMINS/MINERALS THERAPEUTIC TAB PO SCH (09:43)
--- NOTE | 2017-10-14 10:02 | HHI.FPPN ---
Subjective Remarks Patient still experiencing significant midepigastric pain that radiates to the back, grading it a 7.5/10. The pain is managed with morphine as needed. Patient has had an increased appetite, and has been eating a regular diet, also including food, such as chick-sean-a from outside the hospital. His last bowel movement was last night and was normal without blood or loose consistency. He denies nausea or vomiting, chest pain, shortness of breath, or dysuria. Remaining ROS is negative. (Lola Quick MD R2) Objective Vitals Vital Signs Date Time Temp Pulse Resp B/P (MAP) Pulse Ox O2 Delivery O2 Flow Rate FiO2 10/14/17 08:00 98.5 99 16 133/91 (105) 99 10/14/17 04:00 104 10/14/17 03:07 98.3 103 16 119/76 (90) 98 10/14/17 00:00 105 10/13/17 23:07 99.1 109 16 115/69 (84) 97 10/13/17 20:00 105 10/13/17 20:00 121 10/13/17 19:50 Room Air 10/13/17 19:20 97.7 124 16 122/87 (99) 98 10/13/17 18:04 21 10/13/17 16:00 97.2 97 18 137/109 (118) 99 10/13/17 16:00 84 10/13/17 12:00 97.8 86 16 121/86 (98) 96 10/13/17 12:00 94 I/O 10/13/17 10/13/17 10/13/17 10/14/17 10/14/17 10/14/17 07:00 15:00 23:00 07:00 15:00 23:00 Intake Total 1240 ml 960 ml 720 ml Output Total 750 ml 450 ml Balance 1240 ml 210 ml 270 ml Intake Oral 240 ml 960 ml 720 ml IV Total 1000 ml Output Urine Total 750 ml 450 ml # Voids 5 # Bowel Movements 1 1 0 (Lola Quick MD R2) Result Diagram: 10/14/17 0252 10/14/17 0252 Objective Remarks GENERAL: This is a well-nourished, well-developed patient, eating breakfast in bed. SKIN: No rashes, ecchymoses or lesions. Cool and dry. CARDIOVASCULAR: Tachycardic, but regular rhythm without murmurs, gallops, or rubs. RESPIRATORY: Clear to auscultation. Breath sounds equal bilaterally. No wheezes , rales, or rhonchi. GASTROINTESTINAL: Decreased bowel sounds, Mild tenderness to palpation in the mid epigastric region MUSCULOSKELETAL: Extremities without clubbing, cyanosis, or edema. No joint tenderness, effusion, or edema noted. No calf tenderness. NEUROLOGICAL: Awake and alert. (Lola Quick MD R2) A/P Assessment and Plan 31-year-old male with history of alcohol abuse, seizures, history of anorexia, and GERD presented to the ED for abdominal pain secondary to pancreatitis. Patient was admitted for further management. Discharge Planning Anticipate discharge in 1 day (Lola Quick MD R2) Problem List: (1) Pancreatitis ICD Codes: K85.90 - Acute pancreatitis without necrosis or infection, unspecified Status: Acute Plan: Patient with 4-day history of abdominal pain. CT positive for hepatomegaly and hepatic steatosis. Mild peripancreatic inflammatory changes consistent with pancreatitis. Lipase elevated at 1011 on admission. Lipase initially decreased yesterday afternoon, but has increased to 1087 early this morning; will continue to trend this afternoon. He is still having significant abdominal pain also, so will change his diet to NPO except for meds. * also encouraged him not to eat food from outside of the hospital. Consulted GI, appreciate recommendations. Due to history of alcohol abuse, hepatomegaly, and hepatic steatosis along with this episode of acute pancreatitis, patient may benefit from following up with GI as outpatient once discharged. (2) Alcohol use disorder, moderate, dependence ICD Codes: F10.20 - Alcohol dependence, uncomplicated Status: Acute Plan: Patient reports his last drink was on August 21 Patient reports drinking 4-6 shots of heavy liquor per day for a couple years Patient currently is on CICO protocol Patient treated with folic acid, multivitamin, thiamine (3) History of seizure ICD Codes: Z87.898 - Personal history of other specified conditions Status: Chronic Plan: Continue home Keppra 500 mg p.o. twice daily (4) Depression ICD Codes: F32.9 - Major depressive disorder, single episode, unspecified Status: Acute Plan: Hold Prozac due to hyponatremia Continue Seroquel 25 mg p.o. twice daily psychiatry consulted for recommendations on how to further manage depression while still remaining an inpatient. recommend patient follow up with his psychiatrist Dr. Perez as an outpatient to discuss any possible changes to his treatment. (5) GERD (gastroesophageal reflux disease) ICD Codes: K21.9 - Gastro-esophageal reflux disease without esophagitis Plan: Continue Protonix 40 mg p.o. daily (6) Acute kidney injury ICD Codes: N17.9 - Acute kidney failure, unspecified Status: Resolved Plan: On admission, BUN wa s17 with Cr of 2.16 Resolved (7) Hypokalemia ICD Codes: E87.6 - Hypokalemia Status: Resolved Plan: Hypokalemic at 2.6 on admission Potassium now normalized at 4.4 this morning, replace orally as needed Continue to trend electrolytes (8) Hyponatremia ICD Codes: E87.1 - Hypo-osmolality and hyponatremia Status: Resolved Plan: Hyponatremic at 121 on admission possibly due to history of Prozac vs [place] Hyponatremia now resolved with sodium now at 139 Will continue to trend Na+ with BMP Psychiatry consulted to help with medication management (9) Nutrition, metabolism, and development symptoms ICD Codes: R63.8 - Other symptoms and signs concerning food and fluid intake Plan: Diet: NPO except for meds Fluids: NS + KCl 40meq 110mls/hr Monitor I's and O's DVT ppx: Heparin 5,000 units q12h and SCDs (Eko,Lola DUGGAN R2) Problem List: (1) Pancreatitis ICD Codes: K85.90 - Acute pancreatitis without necrosis or infection, unspecified Status: Acute Plan: Patient with 4-day history of abdominal pain. CT positive for hepatomegaly and hepatic steatosis. Mild peripancreatic inflammatory changes consistent with pancreatitis. Lipase elevated at 1011 on admission. Lipase initially decreased yesterday afternoon, but has increased to 1087 early this morning; will continue to trend this afternoon. He is still having significant abdominal pain also, so will change his diet to NPO except for meds. * also encouraged him not to eat food from outside of the hospital. Consulted GI, appreciate recommendations. Due to history of alcohol abuse, hepatomegaly, and hepatic steatosis along with this episode of acute pancreatitis, patient may benefit from following up with GI as outpatient once discharged. (2) Alcohol use disorder, moderate, dependence ICD Codes: F10.20 - Alcohol dependence, uncomplicated Status: Acute Plan: Patient reports his last drink was on August 21 Patient reports drinking 4-6 shots of heavy liquor per day for a couple years Patient currently is on CIWA protocol Patient treated with folic acid, multivitamin, thiamine (3) History of seizure ICD Codes: Z87.898 - Personal history of other specified conditions Status: Chronic Plan: Continue home Keppra 500 mg p.o. twice daily (4) Depression ICD Codes: F32.9 - Major depressive disorder, single episode, unspecified Status: Acute Plan: Hold Prozac due to hyponatremia Continue Seroquel 25 mg p.o. twice daily psychiatry consulted for recommendations on how to further manage depression while still remaining an inpatient. recommend patient follow up with his psychiatrist Dr. Perez as an outpatient to discuss any possible changes to his treatment. (5) GERD (gastroesophageal reflux disease) ICD Codes: K21.9 - Gastro-esophageal reflux disease without esophagitis Plan: Continue Protonix 40 mg p.o. daily (6) Acute kidney injury ICD Codes: N17.9 - Acute kidney failure, unspecified Status: Resolved Plan: On admission, BUN wa s17 with Cr of 2.16 Resolved (7) Hypokalemia ICD Codes: E87.6 - Hypokalemia Status: Resolved Plan: Hypokalemic at 2.6 on admission Potassium now normalized at 4.4 this morning, replace orally as needed Continue to trend electrolytes (8) Hyponatremia ICD Codes: E87.1 - Hypo-osmolality and hyponatremia Status: Resolved Plan: Hyponatremic at 121 on admission possibly due to history of Prozac vs [place] Hyponatremia now resolved with sodium now at 139 Will continue to trend Na+ with [facility] Psychiatry consulted to help with medication management (9) Nutrition, metabolism, and development symptoms ICD Codes: R63.8 - Other symptoms and signs concerning food and fluid intake Plan: Diet: NPO except for meds Fluids: NS + KCl 40meq 110mls/hr Monitor I's and O's DVT ppx: Heparin 5,000 units q12h and SCDs See the residents documentation for details. I saw and evaluated the patient regarding the seymour portions of this evaluation and agree with the residents findings and plans as written. Parts of this note were created using [employer] voice recognition software program. While efforts were made to correct any mistakes made by this software, some mistakes, errors, and omissions may remain in the final note that were not caught when the note was originally created. Plan of care was discussed and agreed upon with the patient as specifically documented in the above note. An opportunity to ask questions with explanation was provided. Patient voiced understanding on all information reviewed and discussed. (Paul Seo MD) Problem Qualifiers (1) Pancreatitis: Qualified Codes: K85.90 - Acute pancreatitis without necrosis or infection, unspecified (2) Depression: Lola Quick MD R2 October 14, 2017 10:01 Paul Seo MD October 15, 2017 10:14
[2017-10-14] MEDS: KETOROLAC TROMETHAMINE 30 MG/ML (IVP) VIAL IV PUSH PRN (11:14)
[2017-10-14] MEDS: ONDANSETRON ODT 4 MG TAB PO PRN (11:55)
--- NOTE | 2017-10-14 12:27 | PD.CONS ---
HPI History of Present Illness This is a 31 year old M with PMH significant for ETOH abuse, seizures, anxiety and anorexia who presented to the ER three days ago with complaints of abdominal pain, vomiting, and diarrhea that began two days prior to hospital arrival. Imaging and labs consistent with pancreatitis, our service has been consulted because patients lipase has not been improving since admission. Pt denies history of pancreatitis. States pain is located in his mid abdomen and epigastric area, described as sharp, states the pain is constant. Has been fairly well controlled with Morphine since arrival but states had Toradol this morning which seemed to make the pain worse. Had multiple episode of emesis for two days prior to arrival, denies hematemesis and coffee ground emesis. Nausea has been well controlled since admission, was eating a regular diet yesterday and states was tolerating well. Today he was switched to clear liquids due to the continued elevation in lipase. Pt also reports multiple episodes of diarrhea that began two days prior to admission, denies hematochezia and melena. Had a BM yesterday and states they are now formed. Denies fever, chills. Pt with history of anorexia, states he has been eating healthy and exercising and has been gaining some weight. Seems to go through periods of heavy drinking, has previously been seen by our service and this was noted. He denies ETOH since august 21. Quit smoking 2 months ago. Admits to previous marijuana use but states none in quite some time. (Jennifer Carl) PFSH Past Medical History Anxiety Anorexia ETOH abuse Fatty liver Seizures Past Surgical History Inguinal hernia repair (Jennifer Carl) Coded Allergies: Sulfa (Sulfonamide Antibiotics) (Verified Allergy, Severe, hives, 10/11/17) Social History Denies ETOH since August 21 Quit smoking 2 months ago Admits to previous marijuana but states none in awhile (Jennifer Carl) Review of Systems Gastrointestinal: COMPLAINS OF: Abdominal pain, Diarrhea, Nausea, Vomiting, Heartburn, DENIES: Black stools, Bloody stools, Constipation, Difficulty Swallowing, Odynophagia, Swelling of Abdomen, Hematemesis (Jennifer Carl) GI Exam Vitals I&O Vital Signs Date Time Temp Pulse Resp B/P (MAP) Pulse Ox O2 Delivery O2 Flow Rate FiO2 10/14/17 12:01 21 10/14/17 08:00 99 10/14/17 08:00 91 10/14/17 08:00 Room Air 10/14/17 08:00 98.5 99 16 133/91 (105) 99 10/14/17 04:00 104 10/14/17 03:07 98.3 103 16 119/76 (90) 98 10/14/17 00:00 105 10/13/17 23:07 99.1 109 16 115/69 (84) 97 10/13/17 20:00 105 10/13/17 20:00 121 10/13/17 19:50 Room Air 10/13/17 19:20 97.7 124 16 122/87 (99) 98 10/13/17 18:04 21 10/13/17 16:00 97.2 97 18 137/109 (118) 99 10/13/17 16:00 84 I/O 10/13/17 10/13/17 10/13/17 10/14/17 10/14/17 10/14/17 07:00 15:00 23:00 07:00 15:00 23:00 Intake Total 1240 ml 960 ml 720 ml Output Total 750 ml 450 ml Balance 1240 ml 210 ml 270 ml Intake Oral 240 ml 960 ml 720 ml IV Total 1000 ml Output Urine Total 750 ml 450 ml # Voids 5 # Bowel Movements 1 1 0 Imaging Last Impressions Abdomen/Pelvis CT 10/11/17 0940 Signed Impressions: Service Date/Time: Wednesday, October 11, 2017 10:11 - CONCLUSION: Hepatomegaly and hepatic steatosis. Mild peripancreatic inflammatory changes are seen characteristic of pancreatitis. Justice Dominguez MD Gall Bladder Ultrasound 10/11/17 0000 Signed Impressions: Service Date/Time: Wednesday, October 11, 2017 12:36 - CONCLUSION: Hepatomegaly otherwise unremarkable. Justice Dominguez MD Laboratory Test 10/13/17 13:00 10/14/17 02:52 Lipase 946 U/L 1087 U/L White Blood Count 6.1 TH/MM3 Red Blood Count 3.51 MIL/MM3 Hemoglobin 12.6 GM/DL Hematocrit 36.3 % Mean Corpuscular Volume 103.5 FL Mean Corpuscular Hemoglobin 35.8 PG Mean Corpuscular Hemoglobin Concent 34.6 % Red Cell Distribution Width 13.4 % Platelet Count 206 TH/MM3 Mean Platelet Volume 8.2 FL Blood Urea Nitrogen 9 MG/DL Creatinine 0.96 MG/DL Random Glucose 88 MG/DL Total Protein 5.6 GM/DL Calcium Level 6.8 MG/DL Sodium Level 139 MEQ/L Potassium Level 4.4 MEQ/L Chloride Level 105 MEQ/L Carbon Dioxide Level 25.5 MEQ/L Anion Gap 9 MEQ/L Estimat Glomerular Filtration Rate 92 ML/MIN Protein Corrected Calcium 7.6 MG/DL Physical Examination HEENT: Normocephalic; atraumatic CHEST: Even/unlabored CARDIAC: RRR ABDOMEN: Soft, nondistended, nontender; bowel sounds active EXTREMITIES: No clubbing, cyanosis, or edema. SKIN: Normal; no rash; no jaundice. TANK DRIVER: No focal deficits; alert and oriented times three. (Jennifer Carl [employer]) Assessment and Plan Plan Assessment: - Acute pancreatitis Lipase-[address] abdomen and pelvis W/O IV contrast (10/11) --> Hepatomegaly and hepatic steatosis. Mild peripancreatic inflammatory changes are seen characteristic of pancreatitis. US gallbladder (10/11) Hepatomegaly otherwise unremarkable On admission pt complaining of abdominal pain, vomiting, and diarrhea States symptoms have been improving, was tolerating a regular diet yesterday- lipase not improving so was switched back to NPO this AM. Pt denies prior episode of pancreatitis. No ETOH since August 21. Denies any recent new medications. Only OTC medication he takes is Benadryl every night. - History of ETOH abuse -states no ETOH since August 21 LFTs on admission- AST-181 ALT-72 Alk phos-175 T bili-1.1 Given hyponatremia and elevation of labs consistent with alcoholic hepatitis possibly more recent ETOH than pt admits to Labs have not been repeated. Previous liver biopsy --> (08/29/15) revealed acute and chronic large duct biliary obstruction, bile ductular injury and steatosis, as may be observed with calculi, neoplasia, primary sclerosing cholangitis, or drug induced disease. The collective findings in this biopsy are most suggestive of drug induced changes. There is no evidence of primary biliary cirrhosis. There is mild secondary siderosis as may be observed with alcohol intake. - Hyponatremia on admission- possibly secondary to Prozac- has been discontinued Plan: NPO IVF MRCP Repeat LFTs Coags Monitor labs Protonix Pain control Antiemetics PRN Further recommendations based on clinical course and results of above Pt has been seen and examined by myself and Dr. Barkley and this note is written on her behalf (Jennifer Carl) Physician Comments seen, examined agree with above mrcp noted-resume diet (Dora Barkley MD) Jennifer Carl October 14, 2017 12:27 Dora Barkley MD October 14, 2017 19:12
--- NOTE | 2017-10-14 13:55 | PD.PSY.CON ---
Provisional Diagnosis Admission Date October 11, 2017 at 11:14 [place] I. Generalized anxiety disorder, major depressive disorder, recurrent, moderate, in remission, alcohol and cannabis use disorder [place] II. Deferred [place] III. Seizures [place] IV. History of substance abuse [place] V. 55 History of Present Illness Service Psychiatry Consult Requested By Medicine Reason for Consult Medication adjustment Primary Care Physician Jin Juarez M.D. HPI The patient is a 31-year-old man, domiciled with his parents in [place], single, unemployed, with psychiatric history of generalized anxiety disorder, major depressive disorder, no previous psychiatric hospitalizations, no suicide attempts, he also has history of alcohol use disorder in early full remission, cannabis use disorder, outpatient psychiatric care with Dr Perez, he is on Prozac 40 mg, Seroquel 25 mg, Ativan 1 mg 3 times daily, with medical anorexia, seizures and GERD presented to the ED for abdominal pain secondary to pancreatitis. Patient was admitted for further management. Patient with 4-day history of abdominal pain. CT positive for hepatomegaly and hepatic steatosis. Mild peripancreatic inflammatory changes consistent with pancreatitis. Lipase elevated at 1011 on admission. Lipase initially decreased yesterday afternoon, but has increased to 1087 early this morning; will continue to trend this afternoon. Hypokalemic at 2.6 and Hyponatremic at 121 on admission possibly due to history of Prozac vs Potomania. Psychiatric was consulted to address potential medication adjustment given his initial presentation of hyponatremia. On psychiatric evaluation today the patient is calm, cooperative, pleasant. The patient reports being in a good mood, he says that he has history of depression and anxiety, but he has been quite stable in current psychotropic regimen. The patient reports that he has been medicated with Seroquel now for bipolar disorder or psychosis, just for insomnia. He has been in Prozac for years now. The Ativan 1 mg 3 times daily for anxiety. At this moment he denies anhedonia, he denies hopelessness, he denies helplessness, he denies problems sleeping, his appetite has been decreased due to pancreatitis, but now getting better. He denies suicidal and homicidal ideation, he denies visual and auditory hallucinations. Patient is logical, coherent and relevant. Oriented 3. No attention deficit, no fluctuation of consciousness present. No delusions, no paranoia, no agitation, no loosening of associations, no ideas of reference present. The patient reports that in the past has been addicted to marijuana and alcohol, but he has been sober for months now. Review of Systems Constitutional: DENIES: Diaphoretic episodes, Fatigue, Fever, Weight gain, Weight loss, Chills, Dizziness, Change in appetite, Night Sweats Endocrine: DENIES: Heat/cold intolerance, Polydipsia, Polyuria, Polyphagia Eyes: DENIES: Blurred vision, Diplopia, Eye inflammation, Eye pain, Vision loss , Photosensitivity, Double Vision Ears, nose, mouth, throat: DENIES: Tinnitus, Hearing loss, Vertigo, Nasal discharge, Oral lesions, Throat pain, Hoarseness, Ear Pain, Running Nose, Epistaxis, Sinus Pain, Toothache, Odynophagia Respiratory: DENIES: Apneas, Cough, Snoring, Wheezing, Hemoptysis, Sputum production, Shortness of breath Cardiovascular: DENIES: Chest pain, Palpitations, Syncope, Dyspnea on Exertion , PND, Lower Extremity Edema, Orthopnea, Claudication Gastrointestinal: DENIES: Abdominal pain, Black stools, Bloody stools, Constipation, Diarrhea, Nausea, Vomiting, Difficulty Swallowing, Anorexia Genitourinary: DENIES: Sexual dysfunction, Urinary frequency, Urinary incontinence, Urgency, Hematuria, Dysuria, Nocturia, Penile Discharge, Testicular Pain, Testicular Swelling Musculoskeletal: DENIES: Joint pain, Muscle aches, Stiffness, Joint Swelling, Back pain, Neck pain Integumentary: DENIES: Abnormal pigmentation, Nail changes, Pruritus, Rash Hematologic/lymphatic: DENIES: Bruising, Lymphadenopathy Immunologic/allergic: DENIES: Eczema, Urticaria Neurologic: DENIES: Abnormal gait, Headache, Localized weakness, Paresthesias, Seizures, Speech Problems, Tremor, Poor Balance Psychiatric: DENIES: Anxiety, Confusion, Mood changes, Depression, Hallucinations, Agitation, Suicidal Ideation, Homicidal Ideation, Delusions Past Family Social History Coded Allergies: Sulfa (Sulfonamide Antibiotics) (Verified Allergy, Severe, hives, 10/11/17) Active Scripts Quetiapine (Seroquel) 200 Mg Tab, 200 MG PO HS, #30 TAB 0 Refills Prov:Desi Watson MD R1 10/11/17 Calcium Carbonate-Cholecalciferol (Calcium 600 with Vitamin D) 600-400 mg-Unit Tab, 1 TAB PO BID for Calcium Supplement, #60 TAB 0 Refills Prov:Angelica Luna MD 12/10/16 Fluoxetine (Prozac) 40 Mg Cap, 40 MG PO DAILY for depression, #30 CAP 0 Refills Prov:Toro Morales MD 11/09/16 Reported Medications Multiple Vitamin (Multi Vitamin Daily) 1 Tab Tab 09/20/17 Quetiapine (Seroquel) 25 Mg Tab, 25 MG PO BID, #60 TAB 0 Refills 12/10/16 Sucralfate (Carafate) 1 Gm Tab, 1 GM PO TID for Ulcer Prevention, #90 TAB 0 Refills On empty stomach 12/10/16 Lorazepam (Lorazepam) 1 Mg Tab, 1 MG PO Q8H Y for ANXIETY, TAB 0 Refills 12/10/16 Pantoprazole (Protonix) 40 Mg Tab, 40 MG PO DAILY for Reflux, #30 TAB 0 Refills 05/02/16 Levetiracetam (Keppra) 500 Mg Tab, 500 MG PO BID for Control Seizures, #60 TAB 0 Refills 05/02/16 Discontinued Reported Medications Quetiapine (Seroquel) 100 Mg Tab, 200 MG PO HS, #30 TAB 0 Refills 12/10/16 Current Medications Medications (Trade) Dose Ordered Sig/Efren Route Start Time Stop Time Status Last Admin (Keppra) 500 mg BID PO 10/11/17 11:30 10/14/17 09:43 (Ativan) 1 mg Q8H PRN PO 10/11/17 11:30 10/14/17 09:43 (Protonix) 40 mg DAILY PO 10/11/17 11:30 10/14/17 09:43 (SEROquel) 25 mg BID PO 10/11/17 21:00 10/14/17 09:43 (NS Flush) 2 ml UNSCH PRN IV FLUSH 10/11/17 11:45 (NS Flush) 2 ml BID IV FLUSH 10/11/17 12:00 10/12/17 21:39 (Tylenol) 650 mg Q4H PRN PO 10/11/17 11:45 (Zofran Odt) 4 mg Q6H PRN PO 10/11/17 11:45 10/14/17 11:55 (Heparin Inj) 5,000 units Q12H SQ 10/11/17 13:00 5/18/18 12:07 (Narcan Inj) 0.4 mg UNSCH PRN IV PUSH 10/11/17 11:45 (Romazicon Inj) 0.2 mg Q1M PRN IV PUSH 10/11/17 12:00 (Ativan) 1 mg Q4H PRN PO 10/11/17 12:00 (Ativan Inj) 1 mg Q4H PRN IV PUSH 10/11/17 12:00 (Ativan) 2 mg Q2H PRN PO 10/11/17 12:00 (Ativan Inj) 2 mg Q2H PRN IV PUSH 10/11/17 12:00 (Ativan Inj) 2 mg Q1H PRN IV PUSH 10/11/17 12:00 (Ativan Inj) 2 mg Q15M PRN IV PUSH 10/11/17 12:00 (Folate) 1 mg DAILY PO 10/11/17 12:15 10/16/17 12:14 10/14/17 09:43 (Vitamin B1) 100 mg DAILY PO 10/11/17 12:15 10/14/17 09:43 (Theragran M Tab) 1 tab DAILY PO 10/11/17 12:15 10/16/17 12:14 10/14/17 09:43 Potassium Chloride/Sodium Chloride 1,000 ml @ 110 mls/hr Q9H6M IV 10/11/17 20:00 10/14/17 01:34 (Catapres) 0.1 mg Q6H PRN PO 10/11/17 19:45 (Toradol Inj) 30 mg Q6HR PRN IV PUSH 10/14/17 10:15 10/19/17 10:14 10/14/17 11:14 (Morphine Inj) 2 mg Q4H PRN IV PUSH 10/14/17 12:30 Family Psych History No family psychiatric history Social History Patient was born and raised in [place], he lives in [place] with his parents, single, unemployed, his highest level of education is some college Patient's Strengths (min. 2) Family support, outpatient Physical Exam No tremors, no EPS, no psychomotor retardation or agitation, no withdrawal symptoms at the moment Vital Signs Vital Signs Date Time Temp Pulse Resp B/P (MAP) Pulse Ox O2 Delivery O2 Flow Rate FiO2 10/14/17 12:01 21 10/14/17 12:00 97.8 105 18 144/93 (110) 99 10/14/17 08:00 Room Air I/O 10/14/17 10/14/17 10/15/17 08:00 16:00 00:00 Intake Total 720 ml Output Total 450 ml Balance 270 ml Lab Results Test 10/14/17 02:52 White Blood Count 6.1 TH/MM3 Red Blood Count 3.51 MIL/MM3 Hemoglobin 12.6 GM/DL Hematocrit 36.3 % Mean Corpuscular Volume 103.5 FL Mean Corpuscular Hemoglobin 35.8 PG Mean Corpuscular Hemoglobin Concent 34.6 % Red Cell Distribution Width 13.4 % Platelet Count 206 TH/MM3 Mean Platelet Volume 8.2 FL Blood Urea Nitrogen 9 MG/DL Creatinine 0.96 MG/DL Random Glucose 88 MG/DL Total Protein 5.6 GM/DL Calcium Level 6.8 MG/DL Sodium Level 139 MEQ/L Potassium Level 4.4 MEQ/L Chloride Level 105 MEQ/L Carbon Dioxide Level 25.5 MEQ/L Anion Gap 9 MEQ/L Estimat Glomerular Filtration Rate 92 ML/MIN Protein Corrected Calcium 7.6 MG/DL Lipase 1087 U/L Mental Status Examination Appearance: Appropriate Consciousness: Alert Orientation: x4 Motor Activity: Normal gait Speech: Unremarkable Language: Adequate Fund of Knowledge: Adequate Attention and Concentration: Adequate Memory: Unremarkable Mood: Appropriate Affect: Appropriate Thought Process & Associations: Intact Thought Content: Appropriate Hallucination Type: None Delusion Type: None Suicidal Ideation: No Suicidal Plan: No Suicidal Intention: No Homicidal Ideation: No Homicidal Plan: No Homicidal Intention: No Insight: Adequate Judgment: Adequate Assessment & Plan Problem List: (1) Depression ICD Codes: F32.9 - Major depressive disorder, single episode, unspecified Status: Acute Assessment & Plan: On psychiatric evaluation today the patient does not present any neuropsychiatric symptoms or require an immediate psychiatric intervention. The patient denies symptomatology of depression, anxiety, vandana and psychosis. The patient denies suicidal enemas ideation, he denies visual and auditory hallucinations. During my evaluation the patient is calm, cooperative, logical, coherent and relevant. The patient has an extensive history of anxiety, depression, alcohol and cannabis use disorder, but he reports that he is now in a nearly full remission of these drugs, even though his toxicology is positive for cannabis. The patient has been a stable in Prozac 40 mg for depression, Seroquel 25 mg IM and 200 mg at bedtime for insomnia, Ativan 1 mg 3 times daily for anxiety. Given his recent hyponatremia Prozac has been discontinued, which I am in agreement due to the elevated risk of hyponatremia of SSRIs, especially with Prozac. Patient can continue Ativan 1 mg every 8 hours as needed for anxiety and also alcohol withdrawal, as CIWA protocol. He can continue the Seroquel to help with sleep 100-200 mg at bedtime. Changes in a psychotropic regimen to avoid further hyponatremia must be discussed with outpatient psychiatrist. Does not meet criteria for involuntary psychiatric admission. Support, motivation and psychoeducation provided. Consult appreciated. Assessment & Plan Estimated LOS: days Problem Qualifiers (1) Depression: Yash Graf MD October 14, 2017 13:55
--- NOTE | 2017-10-14 16:53 | RADRPT ---
EXAM DATE/TIME: 10/14/2017 15:41 [facility] COMPARISON: CT ABDOMEN & PELVIS W/O CONTRAST, October 11, 2017, 10:11. MRCP W/O CONTRAST, November 08, 2016, 15:40. INDICATIONS : Pancreatitis. MEDICAL HISTORY : Seizures. Gastroesophageal reflux disease. SURGICAL HISTORY : None. ENCOUNTER: Initial ACUITY: 2 day PAIN SCORE: 4/10 LOCATION: Abdomen TECHNIQUE: Multiplanar, multisequence magnetic resonance imaging of the abdomen was performed. High-resolution 3D dataset was utilized to reconstruct maximum-intensity projection (MIP) images. FINDINGS: The examination is somewhat degraded by motion artifact. There is no intrahepatic biliary ductal dila tion. The common duct measures approximately 3 mm. No stones are seen within the common duct. The gal lbladder is visualized. No stones are evident within the gallbladder. The pancreatic duct is normal in caliber. The T2-weighted images do demonstrate edematous changes ext ending from the mid body to the tail of the pancreas suggesting pancreatitis. There is minimal fluid adjacent to the tail of the pancreas. The T2 fat saturation images demonstrate considerable signal dropout within the hepatic parenchyma. T his would suggest diffuse fatty infiltration. The liver does appear mildly enlarged. The spleen, adrenal glands and kidneys are intact. There is no retroperitoneal adenopathy. No free fluid is seen within the abdomen. CONCLUSION: 1. The common bile duct is normal in caliber. No stones are seen. 2. The liver is mildly enlarged. There is probable diffuse fatty infiltration. 3. The pancreatic duct is normal in caliber. The examination does demonstrate some edematous changes within the tail and mid body of the pancreas suggesting mild pancreatitis. Alfredo Witt MD on October 14, 2017 at 16:40 Board Certified Radiologist. This report was verified electronically.
[2017-10-14 18:43] LABS: PROTHROMBIN TIME - PATIENT 10.3 SEC (9.8-11.6)
[2017-10-14 19:08] LABS: DIRECT BILIRUBIN ADULT 0.1 MG/DL (0.0-0.2); INDIRECT BILIRUBIN 0.2 MG/DL (0.0-0.8); TOTAL BILIRUBIN ADULT 0.3 MG/DL (0.2-1.0); TOTAL PROTEIN 6.4 GM/DL (6.4-8.2)
[2017-10-14] MEDS ORDERED: QUEtiapine FUMARATE 100 MG TAB PO SCH (21:00)
[2017-10-15] MEDS: NS + KCL 40 MEQ INJ 1,000 ML IV SCH (00:04)
[2017-10-15] MEDS: HEPARIN SODIUM - SQ 10,000 UNITS/ML VIAL SQ SCH ×2 (00:05→12:22)
[2017-10-15] MEDS: ONDANSETRON ODT 4 MG TAB PO PRN ×2 (00:21→06:12)
[2017-10-15] MEDS: MORPHINE SULFATE 4 MG/ML INJ IV PUSH PRN ×2 (01:50→06:13)
[2017-10-15 03:15] VITALS: BP 133/81; PULSE 109; RESP 16; TEMP 98.6; O2SAT 99
[2017-10-15 03:43] VITALS: PULSE 109
[2017-10-15] MEDS: LORazepam 1 MG TAB PO PRN (05:10)
[2017-10-15 07:15] LABS: HEMATOCRIT 37.4 % (39.0-51.0); HEMOGLOBIN 12.9 GM/DL (13.0-17.0); MEAN CORPUSCULAR HEMOGLOBIN 36.1 PG (27.0-34.0); MEAN CORPUSCULAR HGB CONC 34.4 % (32.0-36.0); PLATELET COUNT 258 TH/MM3 (150-450); RED BLOOD COUNT 3.57 MIL/MM3 (4.50-5.90); RED CELL DISTRIBUTION WIDTH 13.9 % (11.6-17.2); WHITE BLOOD COUNT 6.3 TH/MM3 (4.0-11.0)
[2017-10-15 07:44] LABS: CALCIUM 7.1 MG/DL (8.5-10.1); CREATININE 0.94 MG/DL (0.60-1.30)
[2017-10-15 08:00] VITALS: BP_SYST 117; BP_SYST 148; BP_DIAS 69; BP_DIAS 91; PULSE 108; PULSE 72; PULSE 97; RESP 16; RESP 17; TEMP 97.9; TEMP 98.5; O2SAT 100; O2SAT 95
[2017-10-15 08:07] LABS: CALCIUM-PROTEIN CORRECTED 7.7 MG/DL (8.5-10.1); TOTAL PROTEIN 5.9 GM/DL (6.4-8.2)
[2017-10-15] MEDS ORDERED: CALCIUM CARBONATE 500 MG CHEWABLE TAB CHEW ONE (08:15)
[2017-10-15] MEDS: FOLIC ACID 1 MG TAB PO SCH (08:46)
[2017-10-15] MEDS: MULTIVITAMINS/MINERALS THERAPEUTIC TAB PO SCH (08:46)
[2017-10-15] MEDS: PANTOPRAZOLE SOD 40 MG DELAYED RELEASE TAB PO SCH (08:46)
[2017-10-15] MEDS: SODIUM CHLORIDE 0.9% FLUSH 10 ML FLUSH IV FLUSH SCH (08:47)
[2017-10-15] MEDS: levETIRAcetam 500 MG TAB PO SCH (08:47)
[2017-10-15] MEDS: THIAMINE HCL 100 MG TAB PO SCH (08:47)
[2017-10-15 09:03] VITALS: O2SAT 94
[2017-10-15] MEDS ORDERED: SERO200T PO (09:35)
[2017-10-15] MEDS ORDERED: SERO25TA PO (09:35)
--- NOTE | 2017-10-15 09:36 | HHI.DS ---
Discharge Summary Admission Date October 11, 2017 at 11:14 Admitting Diagnosis pancreatitis, hypokalemia, renal failure, hyponatremia, dehydration (1) Pancreatitis Plan: Patient with 4-day history of abdominal pain. CT positive for hepatomegaly and hepatic steatosis. Mild peripancreatic inflammatory changes consistent with pancreatitis. Lipase elevated at 1011 on admission. Lipase initially decreased yesterday afternoon, but has increased to 1087 early this morning; will continue to trend this afternoon. He is still having significant abdominal pain also, so will change his diet to NPO except for meds. * also encouraged him not to eat food from outside of the hospital. Consulted GI, appreciate recommendations. Due to history of alcohol abuse, hepatomegaly, and hepatic steatosis along with this episode of acute pancreatitis, patient may benefit from following up with GI as outpatient once discharged. ICD Codes: K85.90 - Acute pancreatitis without necrosis or infection, unspecified Status: Acute (2) Alcohol use disorder, moderate, dependence Plan: Patient reports his last drink was on August 21 Patient reports drinking 4-6 shots of heavy liquor per day for a couple years Patient currently is on [facility] protocol Patient treated with folic acid, multivitamin, thiamine ICD Codes: F10.20 - Alcohol dependence, uncomplicated Status: Acute (3) History of seizure Plan: Continue home Keppra 500 mg p.o. twice daily ICD Codes: Z87.898 - Personal history of other specified conditions Status: Chronic (4) Depression Plan: Hold Prozac due to hyponatremia Continue Seroquel 25 mg p.o. twice daily psychiatry consulted for recommendations on how to further manage depression while still remaining an inpatient. recommend patient follow up with his psychiatrist Dr. Perez as an outpatient to discuss any possible changes to his treatment. ICD Codes: F32.9 - Major depressive disorder, single episode, unspecified Status: Acute (5) GERD (gastroesophageal reflux disease) Plan: Continue Protonix 40 mg p.o. daily ICD Codes: K21.9 - Gastro-esophageal reflux disease without esophagitis (6) Acute kidney injury Plan: On admission, BUN wa s17 with Cr of 2.16 Resolved ICD Codes: N17.9 - Acute kidney failure, unspecified Status: Resolved (7) Hypokalemia Plan: Hypokalemic at 2.6 on admission Potassium now normalized at 4.4 this morning, replace orally as needed Continue to trend electrolytes ICD Codes: E87.6 - Hypokalemia Status: Resolved (8) Hyponatremia Plan: Hyponatremic at 121 on admission possibly due to history of Prozac vs Potomania Hyponatremia now resolved with sodium now at 139 Will continue to trend Na+ with BMP Psychiatry consulted to help with medication management ICD Codes: E87.1 - Hypo-osmolality and hyponatremia Status: Resolved (9) Nutrition, metabolism, and development symptoms Plan: Diet: NPO except for meds Fluids: NS + KCl 40meq 110mls/hr Monitor I's and O's DVT ppx: Heparin 5,000 units q12h and SCDs ICD Codes: R63.8 - Other symptoms and signs concerning food and fluid intake Brief History 31-year-old male with history of alcohol abuse, seizures, history of anorexia, and GERD presents to the ED for abdominal pain. Accompanied by mother. Patient was recently discharged on July 28 under [place] act for alcohol intoxication with behavioral disturbance. Patient states that he has had intermittent, aching, 5 out of 10 mid epigastric abdominal pain radiating to the back and watery, nonbloody diarrhea for the past 4 days. Patient reports multiple episodes of nonbloody vomiting. He states that is unable to keep down food and water for the past couple of days. Endorses decreased urine output and occasional chills. States that he has had more than 12 episodes of diarrhea in a day. Denies recent antibiotic use. His mom states that he has had had hallucinations. He has been talking to himself and has been hearing music. Denies chest pain shortness of breath. Denies history of gallbladder problems. Patient states that his last drink was August 21. He states that he previously drank 4-6 shots of heavy liquor per day. He states that he has weaned himself off. Patient states that his last seizure was in the summer 2017. However, he is unsure if he had a seizure last night due to muscle soreness. He denies tongue biting and loss of bowel/bladder control. He has been on Keppra twice daily. Mom states that he has done well with anorexia in the last 6 months. Highest weight has been 155 pounds. Patient states that he eats to well-balanced meals daily. He denies depression and suicidal ideation. CBC/BMP: 10/15/1762310/15/17623 Significant Findings Laboratory Tests Test 10/12/17 13:21 10/13/17 04:25 10/13/17 04:30 10/13/17 13:00 Calcium Level 7.8 MG/DL (8.5-10.1) 7.2 MG/DL (8.5-10.1) Sodium Level 133 MEQ/L (136-145) 135 MEQ/L (136-145) Potassium Level 3.0 MEQ/L (3.5-5.1) Chloride Level 91 MEQ/L (98-107) Carbon Dioxide Level 33.9 MEQ/L (21.0-32.0) Estimat Glomerular Filtration Rate 73 ML/MIN (>89) 79 ML/MIN (>89) Lipase 883 U/L (73-393) 973 U/L (73-393) 946 U/L (73-393) Red Blood Count 3.93 MIL/MM3 (4.50-5.90) Mean Corpuscular Volume 104.3 FL (80.0-100.0) Mean Corpuscular Hemoglobin 35.8 PG (27.0-34.0) Total Protein 5.9 GM/DL (6.4-8.2) Protein Corrected Calcium 7.8 MG/DL (8.5-10.1) Test 10/14/17 02:52 10/14/17 18:03 10/15/17 06:24 Red Blood Count 3.51 MIL/MM3 (4.50-5.90) 3.57 MIL/MM3 (4.50-5.90) Hemoglobin 12.6 GM/DL (13.0-17.0) 12.9 GM/DL (13.0-17.0) Hematocrit 36.3 % (39.0-51.0) 37.4 % (39.0-51.0) Mean Corpuscular Volume 103.5 FL (80.0-100.0) 105.0 FL (80.0-100.0) Mean Corpuscular Hemoglobin 35.8 PG (27.0-34.0) 36.1 PG (27.0-34.0) Total Protein 5.6 GM/DL (6.4-8.2) 5.9 GM/DL (6.4-8.2) Calcium Level 6.8 MG/DL (8.5-10.1) 7.1 MG/DL (8.5-10.1) Protein Corrected Calcium 7.6 MG/DL (8.5-10.1) 7.7 MG/DL (8.5-10.1) Lipase 1087 U/L (73-393) 1731 U/L (73-393) 1219 U/L (73-393) Aspartate Amino Transf (AST/SGOT) 127 U/L (15-37) Alanine Aminotransferase (ALT/SGPT) 93 U/L (12-78) Alkaline Phosphatase 212 U/L (45-117) Albumin 3.0 GM/DL (3.4-5.0) Random Glucose 107 MG/DL (74-106) PE at Discharge GENERAL: This is a well-nourished, well-developed patient, eating breakfast in bed. SKIN: No rashes, ecchymoses or lesions. Cool and dry. CARDIOVASCULAR: Tachycardic, but regular rhythm without murmurs, gallops, or rubs. RESPIRATORY: Clear to auscultation. Breath sounds equal bilaterally. No wheezes , rales, or rhonchi. GASTROINTESTINAL: Decreased bowel sounds, Mild tenderness to palpation in the mid epigastric region MUSCULOSKELETAL: Extremities without clubbing, cyanosis, or edema. No joint tenderness, effusion, or edema noted. No calf tenderness. NEUROLOGICAL: Awake and alert. Hospital Course 31 yr with PMH of alcohol abuse, seizures, anorexia, and GERD was admitted on for pancreatitis. Patient was started on IV normal saline with KCL, NPO, and pain management with IV morphine 4mg q3hrs prn. Patient initially developed MARK, but was resolved with administration of IV fluids. Patient also developed hyponatremia and hypokalemia, which resolved with IV fluids and potassium supplementation. Hyponatremia could have arised as a result of possible SIADH secondary to Prozac or volume loss secondary to excessive vomiting. Psych was consulted for possible recommendations for any changes to his psychiatric medications. We trended the patient's lipase, which initially decreased but began to increase on the . GI was consulted for further recommendations and to rule out any other possible causes. MRCP was done and showed changes consistent with mild pancreatitis. Patient's lipase began to trend downward today and the patient is no longer experiencing any abdominal pain. Patient is stable and discharged on 10/15/17. Pt Condition on Discharge: Stable Discharge Instructions Follow up Referrals: Gastroenterology - 3 Weeks PCP Follow-up - 1 Week Psychiatry Adult - 1 Week Continued Medications: Calcium Carbonate-Cholecalciferol (Calcium 600 with Vitamin D) 600-400 mg-Unit Tab 1 TAB PO BID for Calcium Supplement, #60 TAB 0 Refills Levetiracetam (Keppra) 500 Mg Tab 500 MG PO BID for Control Seizures, #60 TAB 0 Refills Lorazepam (Lorazepam) 1 Mg Tab 1 MG PO Q8H PRN for ANXIETY, TAB 0 Refills Multiple Vitamin (Multi Vitamin Daily) 1 Tab Tab Pantoprazole (Protonix) 40 Mg Tab 40 MG PO DAILY for Reflux, #30 TAB 0 Refills Quetiapine (Seroquel) 25 Mg Tab 25 MG PO BID, #60 TAB 0 Refills (This prescription has been renewed) Quetiapine (Seroquel) 200 Mg Tab 200 MG PO HS, #30 TAB 0 Refills (This prescription has been renewed) Sucralfate (Carafate) 1 Gm Tab 1 GM PO TID for Ulcer Prevention, #90 TAB 0 Refills On empty stomach Discontinued Medications: Fluoxetine (Prozac) 40 Mg Cap 40 MG PO DAILY for depression, #30 CAP 0 Refills Desi Watson MD R1 October 15, 2017 09:36
[2017-10-15] MEDS ORDERED: ACETAMINOPHEN 325 MG TAB PO PRN (09:45)
[2017-10-15] MEDS: KETOROLAC TROMETHAMINE 30 MG/ML (IVP) VIAL IV PUSH PRN (10:14)
--- NOTE | 2017-10-15 10:29 | HHI.FPPN ---
Subjective Remarks Patient doing well today. He states that his abdominal pain has resolved. He was placed back on a regular diet yesterday after being cleared by GI and tolerated food fine. He denies any nausea, vomiting, diarrhea, chest pain, shortness of breath, or dysuria. Remaining ROS is negative. (Desi Watson MD R1) Objective Vitals Vital Signs Date Time Temp Pulse Resp B/P (MAP) Pulse Ox O2 Delivery O2 Flow Rate FiO2 10/15/17 09:03 94 21 10/15/17 08:00 98.5 97 17 148/91 (110) 100 10/15/17 04:00 Room Air 10/15/17 03:43 109 10/15/17 03:15 98.6 109 16 133/81 (98) 99 10/15/17 00:00 Room Air 10/14/17 23:46 112 10/14/17 23:00 98.3 101 16 141/90 (107) 98 10/14/17 22:40 18 10/14/17 21:30 Room Air 10/14/17 19:35 140 10/14/17 19:26 98.0 123 16 133/89 (104) 100 10/14/17 17:00 97.6 110 18 127/80 (96) 100 10/14/17 12:01 21 10/14/17 12:00 109 10/14/17 12:00 97.8 105 18 144/93 (110) 99 I/O 10/14/17 10/14/17 10/14/17 10/15/17 10/15/17 10/15/17 07:00 15:00 23:00 07:00 15:00 23:00 Intake Total 720 ml 600 ml 2080 ml Output Total 450 ml 350 ml Balance 270 ml 600 ml 1730 ml Intake Oral 720 ml 600 ml 1080 ml IV Total 1000 ml Output Urine Total 450 ml 350 ml # Voids 3 # Bowel Movements 0 1 0 (Desi Watson MD R1) Result Diagram: 10/15/1724 10/15/17 0624 Imaging Last Impressions Cholangiopancreatography MRI 10/14/17 0000 Signed Impressions: Service Date/Time: Saturday, October 14, 2017 15:41 - CONCLUSION: 1. The common bile duct is normal in caliber. No stones are seen. 2. The liver is mildly enlarged. There is probable diffuse fatty infiltration. 3. The pancreatic duct is normal in caliber. The examination does demonstrate some edematous changes within the tail and mid body of the pancreas suggesting mild pancreatitis. Alfredo Witt MD Abdomen/Pelvis CT 10/11/17 0940 Signed Impressions: Service Date/Time: Wednesday, October 11, 2017 10:11 - CONCLUSION: Hepatomegaly and hepatic steatosis. Mild peripancreatic inflammatory changes are seen characteristic of pancreatitis. Justice Dominguez MD Gall Bladder Ultrasound 10/11/17 0000 Signed Impressions: Service Date/Time: Wednesday, October 11, 2017 12:36 - CONCLUSION: Hepatomegaly otherwise unremarkable. Justice Dominguez MD Objective Remarks GENERAL: This is a well-nourished, well-developed patient, eating breakfast in bed. SKIN: No rashes, ecchymoses or lesions. Cool and dry. CARDIOVASCULAR: Tachycardic, but regular rhythm without murmurs, gallops, or rubs. RESPIRATORY: Clear to auscultation. Breath sounds equal bilaterally. No wheezes , rales, or rhonchi. GASTROINTESTINAL: soft, non tender, nondistended. normal bowel sounds; no rebound tenderness or guarding. MUSCULOSKELETAL: Extremities without clubbing, cyanosis, or edema. No joint tenderness, effusion, or edema noted. No calf tenderness. NEUROLOGICAL: Awake and alert. (Desi Watson MD R1) A/P Assessment and Plan 31-year-old male with history of alcohol abuse, seizures, history of anorexia, and GERD presented to the ED for abdominal pain secondary to pancreatitis. Patient was admitted for further management. Discharge Planning Anticipate discharge today (Desi Watson MD R1) Problem List: (1) Pancreatitis ICD Codes: K85.90 - Acute pancreatitis without necrosis or infection, unspecified Status: Acute Plan: Patient with 4-day history of abdominal pain. CT positive for hepatomegaly and hepatic steatosis. Mild peripancreatic inflammatory changes consistent with pancreatitis. Lipase elevated at 1011 on admission. Lipase initially increased yesterday afternoon, but has decreased to 1219 early this morning; will continue to trend this afternoon. His abdominal pain has resolved, with him last using the morphine yesterday night. * GI was consulted and an MRCP was done, which only showed changes consistent with mild pancreatitis. He was placed back on a regular diet after clearance from GI yesterday afternoon, and has tolerated food fine. Due to history of alcohol abuse, hepatomegaly, and hepatic steatosis along with this episode of acute pancreatitis, patient may benefit from following up with GI as outpatient once discharged. (2) Alcohol use disorder, moderate, dependence ICD Codes: F10.20 - Alcohol dependence, uncomplicated Status: Acute Plan: Patient reports his last drink was on August 21 Patient reports drinking 4-6 shots of heavy liquor per day for a couple years Patient currently is on [facility] protocol Patient treated with folic acid, multivitamin, thiamine (3) History of seizure ICD Codes: Z87.898 - Personal history of other specified conditions Status: Chronic Plan: Continue home Keppra 500 mg p.o. twice daily (4) Depression ICD Codes: F32.9 - Major depressive disorder, single episode, unspecified Status: Acute Plan: Hold Prozac due to hyponatremia Continue Seroquel 25 mg p.o. twice daily psychiatry was consulted and recommended no current changes to his medications and to follow up with his outpatient psychiatrist. also recommend patient follow up with his psychiatrist Dr. Perez as an outpatient to discuss any possible changes to his treatment. (5) GERD (gastroesophageal reflux disease) ICD Codes: K21.9 - Gastro-esophageal reflux disease without esophagitis Plan: Continue Protonix 40 mg p.o. daily (6) Acute kidney injury ICD Codes: N17.9 - Acute kidney failure, unspecified Status: Resolved Plan: On admission, BUN was 17 with Cr of 2.16 Resolved (7) Hypokalemia ICD Codes: E87.6 - Hypokalemia Status: Resolved Plan: Hypokalemic at 2.6 on admission Potassium is 4.1 this morning, replace orally as needed Continue to trend electrolytes (8) Hyponatremia ICD Codes: E87.1 - Hypo-osmolality and hyponatremia Status: Resolved Plan: Hyponatremic at 121 on admission possibly due to history of Prozac vs Potomania Sodium at 140 this morning. resolved. (9) Nutrition, metabolism, and development symptoms ICD Codes: R63.8 - Other symptoms and signs concerning food and fluid intake Plan: Diet: Regular diet Fluids: NS + KCl 40meq 110mls/hr Monitor I's and O's DVT ppx: Heparin 5,000 units q12h and SCDs (Desi Watson MD R1) Problem List: (1) Pancreatitis ICD Codes: K85.90 - Acute pancreatitis without necrosis or infection, unspecified Status: Acute Plan: Patient with 4-day history of abdominal pain. CT positive for hepatomegaly and hepatic steatosis. Mild peripancreatic inflammatory changes consistent with pancreatitis. Lipase elevated at 1011 on admission. Lipase initially increased yesterday afternoon, but has decreased to 1219 early this morning; will continue to trend this afternoon. His abdominal pain has resolved, with him last using the morphine yesterday night. * GI was consulted and an MRCP was done, which only showed changes consistent with mild pancreatitis. He was placed back on a regular diet after clearance from GI yesterday afternoon, and has tolerated food fine. Due to history of alcohol abuse, hepatomegaly, and hepatic steatosis along with this episode of acute pancreatitis, patient may benefit from following up with GI as outpatient once discharged. (2) Alcohol use disorder, moderate, dependence ICD Codes: F10.20 - Alcohol dependence, uncomplicated Status: Acute Plan: Patient reports his last drink was on August 21 Patient reports drinking 4-6 shots of heavy liquor per day for a couple years Patient currently is on [facility] protocol Patient treated with folic acid, multivitamin, thiamine (3) History of seizure ICD Codes: Z87.898 - Personal history of other specified conditions Status: Chronic Plan: Continue home Keppra 500 mg p.o. twice daily (4) Depression ICD Codes: F32.9 - Major depressive disorder, single episode, unspecified Status: Acute Plan: Hold Prozac due to hyponatremia Continue Seroquel 25 mg p.o. twice daily psychiatry was consulted and recommended no current changes to his medications and to follow up with his outpatient psychiatrist. also recommend patient follow up with his psychiatrist Dr. Perez as an outpatient to discuss any possible changes to his treatment. (5) GERD (gastroesophageal reflux disease) ICD Codes: K21.9 - Gastro-esophageal reflux disease without esophagitis Plan: Continue Protonix 40 mg p.o. daily (6) Acute kidney injury ICD Codes: N17.9 - Acute kidney failure, unspecified Status: Resolved Plan: On admission, BUN was 17 with Cr of 2.16 Resolved (7) Hypokalemia ICD Codes: E87.6 - Hypokalemia Status: Resolved Plan: Hypokalemic at 2.6 on admission Potassium is 4.1 this morning, replace orally as needed Continue to trend electrolytes (8) Hyponatremia ICD Codes: E87.1 - Hypo-osmolality and hyponatremia Status: Resolved Plan: Hyponatremic at 121 on admission possibly due to history of Prozac vs Potomania Sodium at 140 this morning. resolved. (9) Nutrition, metabolism, and development symptoms ICD Codes: R63.8 - Other symptoms and signs concerning food and fluid intake Plan: Diet: Regular diet Fluids: NS + KCl 40meq 110mls/hr Monitor I's and O's DVT ppx: Heparin 5,000 units q12h and SCDs See the residents documentation for details. I saw and evaluated the patient regarding the seymour portions of this evaluation and agree with the residents findings and plans as written. Parts of this note were created using [employer] voice recognition software program. While efforts were made to correct any mistakes made by this software, some mistakes, errors, and omissions may remain in the final note that were not caught when the note was originally created. Plan of care was discussed and agreed upon with the patient as specifically documented in the above note. An opportunity to ask questions with explanation was provided. Patient voiced understanding on all information reviewed and discussed. (Paul Seo MD) Problem Qualifiers (1) Pancreatitis: Qualified Codes: K85.90 - Acute pancreatitis without necrosis or infection, unspecified (2) Depression: Desi Watson MD R1 October 15, 2017 10:29 Paul Seo MD October 15, 2017 10:54
[2017-10-15 12:00] VITALS: BP 139/93; PULSE 89; PULSE 95; RESP 18; TEMP 98.3; O2SAT 99
--- NOTE | 2017-10-15 14:18 | PD.AMA ---
Against Medical Advice Note Discharge Disposition: Against Medical Advice Pt Condition on Discharge: Stable AMA Statement Patient Ashkan Low has decided to leave the hospital against medical advice. This patient has the capacity to refuse care and understands the risks of leaving, including permanent disability and/or , and has had an opportunity to ask questions about his condition. Patient understands that he can return to the ED for worsening symptoms. This patient will not be accepted back on the Family Medicine Service. Desi Watson MD R1 October 15, 2017 14:18
== END 2017-10-15 14:33 | disposition left against medical advice (07) | DRG 439 ==
LOC: NEPE 07:44 → NEDA 11:14 → N04B 13:22
PROVIDERS: ADMIT Family Medicine; ATTEND Family Medicine
DX: K85.90 Acute pancreatitis without necrosis or infection, unspecified (principal); E87.1 Hypo-osmolality and hyponatremia; N17.9 Acute kidney failure, unspecified; R56.9 Unspecified convulsions; E87.6 Hypokalemia; F10.20 Alcohol dependence, uncomplicated; F32.9 Major depressive disorder, single episode, unspecified; K21.9 Gastro-esophageal reflux disease without esophagitis; Z87.891 Personal history of nicotine dependence
CPT/HCPCS: 74176; 74181; 76377; 76705; 76937; 80048; 80053; 80061; 80076; 81001; 83605; 83615; 83690; 83735; 83930; 83935; 84155; 84300; 85025; 85027; 85610; 93005; 96361; 96365; J1644; J1885; J2270; J3475; J3480; J7030

== ENCOUNTER 2017-11-05 11:17 | Inpatient (IN) | payer OTHER ==
[~2017-11-05] VITALS: Ht 177.8 cm; Wt 70.0 kg
[~2017-11-05 11:17] MED LIST changes: -PROZ40CA PO; -SERO100T PO; +SERO200T PO
[2017-11-05 11:26] VITALS: BP 142/93; PULSE 124; RESP 20; TEMP 98.4; O2SAT 98
[2017-11-05] MEDS ORDERED: SODIUM CHLOR 0.9% 1000 ML INJ 1,000 ML IV SCH (11:43)
[2017-11-05 11:45] VITALS: O2SAT 97
[2017-11-05] MEDS ORDERED: SODIUM CHLORIDE 0.9% FLUSH 10 ML FLUSH IV FLUSH PRN ×3 (11:45→15:30)
--- NOTE | 2017-11-05 11:49 | PD ---
HPI Chief Complaint: GI Complaint Time Seen by Provider: 11:34 Travel History International Travel<30 days: No Contact w/Intl Traveler<30days: No Traveled to known affect area: No History of Present Illness HPI 32-year-old male complains of abdominal pain back pain nausea vomiting. Patient states that his symptoms started last night. Patient states that he has mild aching pain cramping pain diffuse over the abdomen. Patient denies any pain radiation. Patient complained of aching pain in the low back area. Patient denies any chest pain or shortness of breath. Patient denies any fever chills. Patient denies any dysuria frequency. Patient has history of pancreatitis, alcohol abuse, seizure, depression, GERD. Patient states that he has not had any alcohol for the past month. Patient states that he has been taking his medications as directed. PFSH Past Medical History Hx Anticoagulant Therapy: No Arthritis: No Autoimmune Disease: No Blood Disorders: No Anxiety: Yes Depression: No Cancer: No Cardiovascular Problems: No Chemotherapy: No Cerebrovascular Accident: No Diabetes: No Diminished Hearing: No Endocrine: No Gastrointestinal Disorders: Yes (GERD) GERD: Yes Genitourinary: No Headaches: Yes (OCCASSIONALLY ) Hepatitis: No Hiatal Hernia: No Hypertension: No Immune Disorder: No Implanted Vascular Access Dvce: No Medical other: No Musculoskeletal: Yes Neurologic: No Psychiatric: Yes Reproductive: No Respiratory: Yes Seizures: Yes Thyroid Disease: No Past Surgical History Abdominal Surgery: Yes (HERNIA) Cardiac Surgery: No Ear Surgery: No Endocrine Surgery: No Eye Surgery: No Genitourinary Surgery: No Hysterectomy: No Neurologic Surgery: No Oral Surgery: No Thoracic Surgery: No Other Surgery: Yes (inguinal hernia) Social History Alcohol Use: Yes Tobacco Use: No Substance Use: Yes (DENIES USING ALCOHOL TODAY) Allergies-Medications (Allergen,Severity, Reaction): Coded Allergies: Sulfa (Sulfonamide Antibiotics) (Verified Allergy, Severe, hives, 10/11/17) Reported Meds & Prescriptions Reported Meds & Active Scripts Active Seroquel (Quetiapine Fumarate) 200 Mg Tab 200 Mg PO HS Seroquel (Quetiapine Fumarate) 25 Mg Tab 25 Mg PO BID Calcium 600 with Vitamin D (Calcium Carbonate-Cholecalciferol) 600-400 mg-Unit Tab 1 Tab PO BID Reported Multi Vitamin Daily (Multiple Vitamin) 1 Tab Tab Carafate (Sucralfate) 1 Gm Tab 1 Gm PO TID On empty stomach Lorazepam 1 Mg Tab 1 Mg PO Q8H PRN Protonix (Pantoprazole Sodium) 40 Mg Tab 40 Mg PO DAILY Keppra (Levetiracetam) 500 Mg Tab 500 Mg PO BID Review of Systems General / Constitutional: No: Fever Eyes: No: Visual changes HENT: No: Headaches Cardiovascular: No: Chest Pain or Discomfort Respiratory: No: Shortness of Breath Gastrointestinal: Positive: Nausea, Vomiting, Abdominal Pain Genitourinary: No: Dysuria Musculoskeletal: No: Pain Skin: No Rash Neurologic: No: Weakness Psychiatric: No: Depression Endocrine: No: Polydipsia Hematologic/Lymphatic: No: Easy Bruising Physical Exam Narrative GENERAL: Well-nourished, well-developed patient. SKIN: Focused skin assessment warm/dry. HEAD: Normocephalic. EYES: No scleral icterus. No injection or drainage. NECK: Supple, trachea midline. No JVD or lymphadenopathy. CARDIOVASCULAR: Regular rate and rhythm without murmurs, gallops, or rubs. RESPIRATORY: Breath sounds equal bilaterally. No accessory muscle use. GASTROINTESTINAL: Abdomen soft, nondistended. Patient has mild diffuse tenderness of the abdomen. No rebound tenderness. No mass. MUSCULOSKELETAL: No cyanosis, or edema. BACK: Patient has mild tenderness on palpation lumbar area, without obvious deformity. No CVA tenderness. Neurologic exam normal. Data Data Last Documented VS Vital Signs Date Time Temp Pulse Resp B/P (MAP) Pulse Ox O2 Delivery O2 Flow Rate FiO2 11/05/17 11:45 97 Nasal Cannula 2.00 11/05/17 11:38 18 11/05/17 11:26 98.4 124 142/93 (109) Orders Orders Complete Blood Count With Diff (11/05/17 11:43) Comprehensive Metabolic Panel (11/05/17 11:43) Lipase (11/05/17 11:43) Urinalysis - C+S If Indicated (11/05/17 11:43) Iv Access Insert/Monitor (11/05/17 11:43) Ecg Monitoring (11/05/17 11:43) Oximetry (11/05/17 11:43) Sodium Chlor 0.9% 1000 Ml Inj (Ns 1000 M (11/05/17 11:43) Sodium Chloride 0.9% Flush (Ns Flush) (11/05/17 11:45) Sodium Chloride 0.9% Flush (Ns Flush) (11/05/17 12:00) Pantoprazole (Protonix) (11/05/17 12:00) Potassium Chloride (Kcl) (11/05/17 13:00) Potassium Chlor 20 Meq Premix (Kcl 20 Me (11/05/17 13:00) Basic Metabolic Panel (Bmp) (11/05/17 12:54) Protein Corrected Calcium(Pcc) (11/05/17 12:59) Labs Laboratory Tests Test 11/05/17 11:49 11/05/17 12:59 White Blood Count 15.5 TH/MM3 Red Blood Count 4.50 MIL/MM3 Hemoglobin 15.8 GM/DL Hematocrit 45.0 % Mean Corpuscular Volume 100.1 FL Mean Corpuscular Hemoglobin 35.2 PG Mean Corpuscular Hemoglobin Concent 35.1 % Red Cell Distribution Width 13.5 % Platelet Count 414 TH/MM3 Mean Platelet Volume 7.8 FL Neutrophils (%) (Auto) 84.5 % Lymphocytes (%) (Auto) 5.6 % Monocytes (%) (Auto) 9.7 % Eosinophils (%) (Auto) 0.0 % Basophils (%) (Auto) 0.2 % Neutrophils # (Auto) 13.1 TH/MM3 Lymphocytes # (Auto) 0.9 TH/MM3 Monocytes # (Auto) 1.5 TH/MM3 Eosinophils # (Auto) 0.0 TH/MM3 Basophils # (Auto) 0.0 TH/MM3 CBC Comment DIFF FINAL Differential Comment Urine Color YELLOW Urine Turbidity CLEAR Urine pH 6.0 Urine Specific [place] 1.027 Urine Protein 100 mg/dL Urine Glucose (UA) TRACE mg/dL Urine Ketones 10 mg/dL Urine Occult Blood SMALL Urine Nitrite NEG Urine Bilirubin NEG Urine Urobilinogen LESS THAN 2.0 MG/DL Urine Leukocyte Esterase NEG Urine WBC 1 /hpf Urine Squamous Epithelial Cells <1 /hpf Urine Hyaline Casts 42 /lpf Urine Mucus FEW /lpf Microscopic Urinalysis Comment CULT NOT INDICATED Blood Urea Nitrogen 27 MG/DL 27 MG/DL Creatinine 2.38 MG/DL 2.44 MG/DL Random Glucose 178 MG/DL 134 MG/DL Total Protein 7.9 GM/DL 7.9 GM/DL Albumin 4.5 GM/DL Calcium Level 11.9 MG/DL 11.6 MG/DL Alkaline Phosphatase 118 U/L Aspartate Amino Transf (AST/SGOT) 29 U/L Alanine Aminotransferase (ALT/SGPT) 37 U/L Total Bilirubin 0.6 MG/DL Sodium Level 127 MEQ/L 129 MEQ/L Potassium Level 2.4 MEQ/L 2.5 MEQ/L Chloride Level 61 MEQ/L 63 MEQ/L Carbon Dioxide Level 43.1 MEQ/L 43.8 MEQ/L Anion Gap 23 MEQ/L 22 MEQ/L Estimat Glomerular Filtration Rate 32 ML/MIN 31 ML/MIN Protein Corrected Calcium 11.4 MG/DL 11.1 MG/DL Lipase 165 U/L MDM Medical Decision Making Medical Screen Exam Complete: Yes Emergency Medical Condition: Yes Interpretation(s) 12:51 PM. CBC WBC 15.5. Hemoglobin 15.8 hematocrit 45.0. MCV 100.1. 84 neutrophil. Sodium 127. Potassium 2.4. Chloride 61. Bicarb 43.1 anion gap 23. BUN 27. Creatinine 2.38. GFR 32. Calcium 11.9. UA is negative. Differential Diagnosis Differential diagnosis including gastritis, PUD, pancreatitis, cholecystitis, colitis, UTI, pyelonephritis, nephrolithiasis. Narrative Course 32-year-old male with abdominal pain, nausea vomiting and low back pain. History of pancreatitis. History EtOH abuse. Normal saline solution 1 25 cc an hour. Normal saline solution 1 L IV bolus. KCl 40 mEq p.o. given. KCl 20 mEq IV given. Diagnosis Primary Impression: Hypokalemia Additional Impressions: Hyponatremia Hypochloremia Metabolic alkalosis Hypercalcemia Acute kidney injury Abdominal pain Qualified Codes: R10.84 - Generalized abdominal pain Lucien Cevallos MD Nov 05, 2017 11:48
[2017-11-05] MEDS ORDERED: PANTOPRAZOLE SOD 40 MG DELAYED RELEASE TAB PO ONE (12:00)
[2017-11-05 12:03] LABS: AUTOMATED NEUTROPHIL # 13.1 TH/MM3 (1.8-7.7); BASOPHIL % 0.2 % (0.0-2.0); HEMOGLOBIN 15.8 GM/DL (13.0-17.0); LYMPH % 5.6 % (9.0-44.0); LYMPHOCYTE # 0.9 TH/MM3 (1.0-4.8); MEAN CELL VOLUME 100.1 FL (80.0-100.0); MEAN CORPUSCULAR HEMOGLOBIN 35.2 PG (27.0-34.0); MEAN CORPUSCULAR HGB CONC 35.1 % (32.0-36.0); MEAN PLATELET VOLUME 7.8 FL (7.0-11.0); MONO % 9.7 % (0.0-8.0); MONOCYTE # 1.5 TH/MM3 (0-0.9); NEUT % 84.5 % (16.0-70.0); PLATELET COUNT 414 TH/MM3 (150-450); RED CELL DISTRIBUTION WIDTH 13.5 % (11.6-17.2); WHITE BLOOD COUNT 15.5 TH/MM3 (4.0-11.0)
[2017-11-05 12:05] LABS: BILIRUBIN, URINE NEG (NEG); BLOOD, URINE SMALL (NEG); GLUCOSE,URINE TRACE mg/dL (NEG); HYALINE CAST, URINE 42 /lpf (RARE); KETONE, URINE 10 mg/dL (NEG); MUCUS URINE FEW /lpf (OCC); NITRITE,URINE NEG (NEG); SQUAMOUS EPITHELIAL CELL URINE <1 /hpf (0-5); URINE COLOR YELLOW (YELLW/STRAW); URINE LEUKOCYTE ESTERASE NEG (NEG)
[2017-11-05 12:43] LABS: ALBUMIN 4.5 GM/DL (3.4-5.0); BICARBONATE 43.1 MEQ/L (21.0-32.0); CALCIUM 11.9 MG/DL (8.5-10.1); CALCIUM-PROTEIN CORRECTED 11.4 MG/DL (8.5-10.1); CREATININE 2.38 MG/DL (0.60-1.30); TOTAL BILIRUBIN ADULT 0.6 MG/DL (0.2-1.0); TOTAL PROTEIN 7.9 GM/DL (6.4-8.2)
[2017-11-05] MEDS ORDERED: POTASSIUM CHLOR 20 MEQ PREMIX 100 ML IV ONE (13:00)
[2017-11-05] MEDS ORDERED: POTASSIUM CHLORIDE 20 MEQ CONTROLLED RELEASE TAB PO ONE (13:00)
[2017-11-05 14:17] LABS: BICARBONATE 43.8 MEQ/L (21.0-32.0); CALCIUM 11.6 MG/DL (8.5-10.1); CREATININE 2.44 MG/DL (0.60-1.30)
[2017-11-05 14:35] LABS: CALCIUM-PROTEIN CORRECTED 11.1 MG/DL (8.5-10.1); TOTAL PROTEIN 7.9 GM/DL (6.4-8.2)
[2017-11-05 15:13] VITALS: BP 157/88; PULSE 101; RESP 18; O2SAT 99
[2017-11-05] MEDS ORDERED: SODIUM CHLOR 0.9% 1000 ML INJ 1,000 ML IV ONE (15:15)
[2017-11-05] MEDS ORDERED: LORazepam 2 MG/ML VIAL IV PUSH PRN ×4 (15:30)
[2017-11-05] MEDS ORDERED: LORazepam 2 MG TAB PO PRN (15:30)
[2017-11-05] MEDS: PANTOPRAZOLE SOD 40 MG DELAYED RELEASE TAB PO SCH (15:30)
[2017-11-05] MEDS ORDERED: FLUMAZENIL 0.5 MG/5 ML VIAL IV PUSH PRN (15:30)
[2017-11-05] MEDS ORDERED: LORazepam 1 MG TAB PO PRN (15:30)
--- NOTE | 2017-11-05 15:38 | HHI.HP ---
HPI Service [facility] Hospitalists Primary Care Physician Unknown Admission Diagnosis Acute kidney injury, hypokalemia, hyponatremia, hypercalcemia, dehydration Chief Complaint: Abdominal pain 1 day Travel History International Travel<30 Days: No Contact w/Intl Traveler <30 Da: No Traveled to Known Affected Are: No History of Present Illness This is a 32-year-old male with history of alcohol abuse, seizures last seizure summer 2016, history of anorexia, and GERD presents to the ED for abdominal pain. Patient was recently admitted September 2017 for acute pancreatitis secondary to EtOH abuse patient left AMA at that time. Patient returns to the emergency department today with complaints of of generalized crampy abdominal pain, bilateral lower back pain, nausea and vomiting. Patient reports that his N/V stated 4-5 days ago. Patient denies diarrhea or sick contacts. Patient denies recent travel, new foods or well water. Patient's abd pain and bilateral back pain stated last night. Patient states that he has mild aching pain cramping pain diffuse over the abdomen. Patient denies any pain radiation. Patient complained of aching pain in the low back area. Patient denies any chest pain, shortness of breath, fever, dysuria frequency. Review of Systems Constitutional: DENIES: Fever, Chills Respiratory: DENIES: Cough, Sputum production, Shortness of breath Cardiovascular: DENIES: Chest pain, Palpitations, Dyspnea on Exertion Gastrointestinal: COMPLAINS OF: Abdominal pain, Nausea, Vomiting Neurologic: DENIES: Abnormal gait, Headache, Localized weakness Psychiatric: DENIES: Anxiety, Confusion, Depression, Hallucinations Past Family Social History Past Medical History seizures last seizure summer 2016 Anxiety Anorexia GERD Past Surgical History Inguinal hernia repair 2004 Reported Medications Seroquel (Quetiapine Fumarate) 200 Mg Tab 200 Mg PO HS Seroquel (Quetiapine Fumarate) 25 Mg Tab 25 Mg PO BID Calcium 600 with Vitamin D (Calcium Carbonate-Cholecalciferol) 600-400 mg-Unit Tab 1 Tab PO BID Multi Vitamin Daily (Multiple Vitamin) 1 Tab Tab Carafate (Sucralfate) 1 Gm Tab 1 Gm PO TID On empty stomach Lorazepam 1 Mg Tab 1 Mg PO Q8H PRN Protonix (Pantoprazole Sodium) 40 Mg Tab 40 Mg PO DAILY Keppra (Levetiracetam) 500 Mg Tab 500 Mg PO BID Allergies: Coded Allergies: Sulfa (Sulfonamide Antibiotics) (Verified Allergy, Severe, hives, 10/11/17) Family History Patient denies Social History Patient reports he has quit drinking alcohol 1 month, review of previous admission patient was drinking approximately 6 alcoholic beverages per day Former smoker- 2-3cigarrettes/day since 2003 denies illicit drug use, last use marijuana 4 -5 months ago Lives with mom and dad, unemployed Physical Exam Vital Signs Vital Signs Date Time Temp Pulse Resp B/P (MAP) Pulse Ox O2 Delivery O2 Flow Rate FiO2 11/05/17 15:13 101 18 157/88 (111) 99 Room Air 11/05/17 11:45 97 Nasal Cannula 2.00 11/05/17 11:38 18 11/05/17 11:26 98.4 124 20 142/93 (109) 98 Physical Exam GENERAL: This is a well-nourished, well-developed patient, appears anxious SKIN: No rashes, ecchymoses or lesions. Cool and dry. HEAD: Atraumatic. Normocephalic. No temporal or scalp tenderness. EYES: Extraocular motions intact. No scleral icterus. No injection or drainage. CARDIOVASCULAR: Regular rate and rhythm RESPIRATORY: Clear to auscultation. Breath sounds equal bilaterally. GASTROINTESTINAL: Abdomen soft, non-tender, nondistended. MUSCULOSKELETAL: Extremities without clubbing, cyanosis, or edema. No joint tenderness, effusion, or edema noted. No calf tenderness. Negative Homans sign bilaterally. NEUROLOGICAL: Awake and alert. No focal deficits noted. Motor and sensory grossly within normal limits. Five out of 5 muscle strength in all muscle groups. Normal speech. Laboratory Laboratory Tests Test 11/05/17 11:49 11/05/17 12:59 White Blood Count 15.5 Red Blood Count 4.50 Hemoglobin 15.8 Hematocrit 45.0 Mean Corpuscular Volume 100.1 Mean Corpuscular Hemoglobin 35.2 Mean Corpuscular Hemoglobin Concent 35.1 Red Cell Distribution Width 13.5 Platelet Count 414 Mean Platelet Volume 7.8 Neutrophils (%) (Auto) 84.5 Lymphocytes (%) (Auto) 5.6 Monocytes (%) (Auto) 9.7 Eosinophils (%) (Auto) 0.0 Basophils (%) (Auto) 0.2 Neutrophils # (Auto) 13.1 Lymphocytes # (Auto) 0.9 Monocytes # (Auto) 1.5 Eosinophils # (Auto) 0.0 Basophils # (Auto) 0.0 CBC Comment DIFF FINAL Differential Comment Urine Color YELLOW Urine Turbidity CLEAR Urine pH 6.0 Urine Specific [place] 1.027 Urine Protein 100 Urine Glucose (UA) TRACE Urine Ketones 10 Urine Occult Blood SMALL Urine Nitrite NEG Urine Bilirubin NEG Urine Urobilinogen LESS THAN 2.0 Urine Leukocyte Esterase NEG Urine WBC 1 Urine Squamous Epithelial Cells <1 Urine Hyaline Casts 42 Urine Mucus FEW Microscopic Urinalysis Comment CULT NOT INDICATED Blood Urea Nitrogen 27 27 Creatinine 2.38 2.44 Random Glucose 178 134 Total Protein 7.9 7.9 Albumin 4.5 Calcium Level 11.9 11.6 Alkaline Phosphatase 118 Aspartate Amino Transf (AST/SGOT) 29 Alanine Aminotransferase (ALT/SGPT) 37 Total Bilirubin 0.6 Sodium Level 127 129 Potassium Level 2.4 2.5 Chloride Level 61 63 Carbon Dioxide Level 43.1 43.8 Anion Gap 23 22 Estimat Glomerular Filtration Rate 32 31 Protein Corrected Calcium 11.4 11.1 Lipase 165 Result Diagram: 11/05/17 1149 11/05/17 1259 Imaging Last Impressions Abdomen X-Ray 11/05/17 0000 Signed Impressions: CONCLUSION: Benign abdomen. Caprini VTE Risk Assessment Caprini VTE Risk Assessment: No/Low Risk (score <= 1) Caprini Risk Assessment Model Point Value = 1 Point Value = 2 Point Value = 3 Point Value = 5 Age 41-60 Minor surgery BMI > 25 kg/m2 Swollen legs Varicose veins or History of unexplained or recurrent spontaneous Oral contraceptives or hormone replacement Sepsis (< 1 month) Serious lung disease, including pneumonia (< 1 month) Abnormal pulmonary function Acute myocardial infarction Congestive heart failure (< 1 month) History of inflammatory bowel disease Medical patient at bed rest Age 61-74 Arthroscopic surgery Major open surgery (> 45 min) Laparoscopic surgery (> 45 min) Malignancy Confined to bed (> 72 hours) Immobilizing plaster cast Central venous access Age >= 75 History of VTE Family history of VTE Factor V Leiden Prothrombin 52454A Lupus anticoagulant Anticardiolipin antibodies Elevated serum homocysteine Heparin-induced thrombocytopenia Other congenital or acquired thrombophilia Stroke (< 1 month) Elective arthroplasty Hip, pelvis, or leg fracture Acute spinal cord injury (< 1 month) Prophylaxis Regimen Total Risk Factor Score Risk Level Prophylaxis Regimen 0-1 Low Early ambulation 2 Moderate Order ONE of the following: *Sequential Compression Device (SCD) *Heparin 5000 units SQ BID 3-4 Higher Order ONE of the following medications: *Heparin 5000 units SQ TID *Enoxaparin/Lovenox 40 mg SQ daily (WT < 150 kg, CrCl > 30 mL/min) *Enoxaparin/Lovenox 30 mg SQ daily (WT < 150 kg, CrCl > 10-29 mL/min) *Enoxaparin/Lovenox 30 mg SQ BID (WT < 150 kg, CrCl > 30 mL/min) AND/OR *Sequential Compression Device (SCD) 5 or more Highest Order ONE of the following medications: *Heparin 5000 units SQ TID (Preferred with Epidurals) *Enoxaparin/Lovenox 40 mg SQ daily (WT < 150 kg, CrCl > 30 mL/min) *Enoxaparin/Lovenox 30 mg SQ daily (WT < 150 kg, CrCl > 10-29 mL/min) *Enoxaparin/Lovenox 30 mg SQ BID (WT < 150 kg, CrCl > 30 mL/min) AND *Sequential Compression Device (SCD) Assessment and Plan Problem List: (1) Metabolic alkalosis ICD Codes: E87.3 - Alkalosis Status: Acute Plan: Patient with metabolic acidosis, likely secondary to persistent vomiting from EtOH use Concern for withdraw check ETOH level and toxicology screen IV fluids Recheck BMP in a.m. Zofran as needed KUB ordered DVT prophylaxis with SCDs (2) MARK (acute kidney injury) ICD Codes: N17.9 - Acute kidney failure, unspecified Status: Acute Plan: Patient presents to the emergency department with complaints of diffuse abdominal pain 1 day patient found to have multiple electrolyte abnormalities including sodium 129, potassium 2.5, calcium 11.1 as well as acute kidney injury with BUN 27 creatinine 2.44 and GFR 31 Suspect dehydration IV fluids Recheck BMP in a.m. (3) Dehydration ICD Codes: E86.0 - Dehydration Status: Acute Plan: See above (4) Hypocalcemia ICD Codes: E83.51 - Hypocalcemia Status: Acute Plan: hydrate recheck in AM (5) Hypokalemia ICD Codes: E87.6 - Hypokalemia Status: Resolved Plan: Replaced with potassium 20 in MEQ IV and 40 MEQ p.o. in emergency department (6) Hyponatremia ICD Codes: E87.1 - Hypo-osmolality and hyponatremia Status: Resolved Plan: hydrate recheck in AM (7) ETOH abuse ICD Codes: F10.10 - Alcohol abuse, uncomplicated Plan: Patient counseled encouraged to abstain Librium scheduled CIWA protocol seizure precautions Assessment and Plan Patient examined. Assessment and plan formulated with Iza Engel PA-C. I agree with the above. Iza Engel Nov 05, 2017 15:38 Quirino Cantu DO Nov 06, 2017 12:22
[2017-11-05] MEDS: NS + KCL 20 MEQ INJ 1,000 ML IV SCH ×2 (15:42→22:10)
[2017-11-05] MEDS ORDERED: ONDANSETRON ODT 4 MG TAB PO ONE (15:45)
[2017-11-05] MEDS ORDERED: ONDANSETRON ODT 4 MG TAB PO PRN (15:45)
--- NOTE | 2017-11-05 16:14 | RADRPT ---
EXAM DATE: 11/05/2017 4:04 PM EDT AGE/SEX: 32 years / Male INDICATIONS: Abdominal pain and discomfort. CLINICAL DATA: This is the patient's initial encounter. Patient reports that signs and symptoms have been present for 3 days and indicates a pain score of 3/10. MEDICAL/SURGICAL HISTORY: Pancreatitis. Inguinal hernia repair. COMPARISON: No prior exams available for comparison. FINDINGS: The abdominal bowel gas pattern is normal. No abnormal masses, calcifications, or organomegaly is s een. Several focal calcified phleboliths in the left lower pelvis. The visualized lower lungs are cl ear. The osseous structures are unremarkable. CONCLUSION: Benign abdomen. Electronically signed by: Chad Humphries MD 11/05/2017 4:12 PM EDT
[2017-11-05 17:30] LABS: MAGNESIUM 0.9 MG/DL (1.5-2.5)
[2017-11-05] MEDS: chlordiazePOXIDE 25 MG CAP PO SCH (18:32)
[2017-11-05] MEDS: SUCRALFATE 1 GM TAB PO SCH (18:49)
[2017-11-05] MEDS: levETIRAcetam 500 MG TAB PO SCH (20:28)
[2017-11-05] MEDS: QUEtiapine FUMARATE 200 MG TAB PO SCH (20:28)
[2017-11-05] MEDS: SODIUM CHLORIDE 0.9% FLUSH 10 ML FLUSH IV FLUSH SCH (20:28)
[2017-11-05 20:35] VITALS: BP_SYST 142; BP_SYST 158; BP_DIAS 90; BP_DIAS 94; PULSE 99; RESP 16; TEMP 98.1; O2SAT 95
[2017-11-05] MEDS: LORazepam 2 MG/ML VIAL IV PUSH PRN (20:45)
[2017-11-05] MEDS ORDERED: QUEtiapine FUMARATE 25 MG TAB PO SCH (21:00)
[2017-11-06] VITALS (8 sets, daily range): BP systolic 126–150; BP diastolic 71–96; PULSE 85–109; RESP 16–17; TEMP 97.5–100; O2SAT 93–99
[2017-11-06] MEDS: ACETAMINOPHEN 325 MG TAB PO PRN (05:21)
[2017-11-06] MEDS: NS + KCL 20 MEQ INJ 1,000 ML IV SCH ×4 (05:22→21:01)
[2017-11-06] MEDS: LORazepam 2 MG/ML VIAL IV PUSH PRN ×3 (05:31→19:56)
[2017-11-06 08:31] LABS: AUTOMATED NEUTROPHIL # 5.4 TH/MM3 (1.8-7.7); BASOPHIL % 0.4 % (0.0-2.0); EOSINOPHIL # 0.1 TH/MM3 (0-0.4); EOSINOPHIL % 0.6 % (0.0-4.0); HEMATOCRIT 37.4 % (39.0-51.0); HEMOGLOBIN 13.1 GM/DL (13.0-17.0); LYMPH % 23.3 % (9.0-44.0); LYMPHOCYTE # 1.9 TH/MM3 (1.0-4.8); MEAN CELL VOLUME 100.1 FL (80.0-100.0); MEAN CORPUSCULAR HEMOGLOBIN 35.1 PG (27.0-34.0); MEAN CORPUSCULAR HGB CONC 35.1 % (32.0-36.0); MEAN PLATELET VOLUME 7.9 FL (7.0-11.0); MONO % 10.4 % (0.0-8.0); MONOCYTE # 0.9 TH/MM3 (0-0.9); NEUT % 65.3 % (16.0-70.0); PLATELET COUNT 237 TH/MM3 (150-450); RED BLOOD COUNT 3.74 MIL/MM3 (4.50-5.90); RED CELL DISTRIBUTION WIDTH 13.6 % (11.6-17.2); WHITE BLOOD COUNT 8.3 TH/MM3 (4.0-11.0)
[2017-11-06] MEDS: MULTIVITAMINS/MINERALS THERAPEUTIC TAB PO SCH (08:43)
[2017-11-06] MEDS: THIAMINE HCL 100 MG TAB PO SCH (08:43)
[2017-11-06] MEDS: SODIUM CHLORIDE 0.9% FLUSH 10 ML FLUSH IV FLUSH SCH ×2 (08:43→19:57)
[2017-11-06] MEDS: PANTOPRAZOLE SOD 40 MG DELAYED RELEASE TAB PO SCH ×2 (08:44)
[2017-11-06] MEDS: SUCRALFATE 1 GM TAB PO SCH ×3 (08:44→17:34)
[2017-11-06] MEDS: FOLIC ACID 1 MG TAB PO SCH (08:44)
[2017-11-06] MEDS: levETIRAcetam 500 MG TAB PO SCH ×2 (08:44→21:00)
[2017-11-06] MEDS: chlordiazePOXIDE 25 MG CAP PO SCH ×3 (08:44→17:34)
[2017-11-06] MEDS: QUEtiapine FUMARATE 25 MG TAB PO SCH ×2 (08:44→12:11)
[2017-11-06 09:07] LABS: ALBUMIN 3.3 GM/DL (3.4-5.0); ALKALINE PHOSPHATASE 99 U/L (45-117); ALT (GPT) 33 U/L (12-78); AST (GOT) 40 U/L (15-37); BICARBONATE 42.4 MEQ/L (21.0-32.0); BLOOD UREA NITROGEN 26 MG/DL (7-18); CALCIUM 9.1 MG/DL (8.5-10.1); CHLORIDE 82 MEQ/L (98-107); CREATININE 2.48 MG/DL (0.60-1.30); GLOMERULAR FILTRATION RATE 31 ML/MIN (>89); GLUCOSE,RANDOM 82 MG/DL (74-106); SODIUM (NA) 135 MEQ/L (136-145); TOTAL BILIRUBIN ADULT 0.7 MG/DL (0.2-1.0); TOTAL PROTEIN 5.8 GM/DL (6.4-8.2)
[2017-11-06] MEDS ORDERED: SODIUM CHLOR 0.9% 1000 ML INJ 1,000 ML IV ONE (09:45)
[2017-11-06] MEDS: POTASSIUM CHLORIDE 20 MEQ CONTROLLED RELEASE TAB PO SCH ×2 (09:48→12:17)
[2017-11-06] MEDS: MAGNESIUM SULFATE 1 GM PREMIX 100 ML IV SCH ×3 (09:48→12:12)
[2017-11-06 10:33] LABS: MAGNESIUM 1.4 MG/DL (1.5-2.5)
--- NOTE | 2017-11-06 12:28 | HHI.PR ---
Subjective Remarks No new complaints. Objective Vitals Vital Signs Date Time Temp Pulse Resp B/P (MAP) Pulse Ox O2 Delivery O2 Flow Rate FiO2 11/06/17 04:35 98.1 90 17 138/88 (105) 93 11/06/17 00:40 100.0 109 17 137/77 (97) 93 11/05/17 20:35 98.1 99 16 142/94 (110) 95 158/90 (112) 11/05/17 16:41 11/05/17 15:13 101 18 157/88 (111) 99 Room Air 11/06/17 11/06/17 11/07/17 15:00 23:00 07:00 Intake Total 100 ml Balance 100 ml IV Total 100 ml Result Diagram: 11/06/17 0753 11/06/17 0753 Imaging Last Impressions Abdomen X-Ray 11/05/17 0000 Signed Impressions: CONCLUSION: Benign abdomen. Objective Remarks GENERAL: This is a well-nourished, well-developed patient, in no apparent distress. CARDIOVASCULAR: Regular rate and rhythm without murmurs, gallops, or rubs. RESPIRATORY: Clear to auscultation. Breath sounds equal bilaterally. No wheezes , rales, or rhonchi. GASTROINTESTINAL: Abdomen soft, non-tender, nondistended. Normal active bowel sounds MUSCULOSKELETAL: Extremities without clubbing, cyanosis, or edema. NEURO: Alert & Oriented x4 to person, place, time, situation. Moves all ext x4 A/P Problem List: (1) Metabolic alkalosis ICD Codes: E87.3 - Alkalosis Status: Acute Plan: - improving - Patient with metabolic acidosis, likely secondary to persistent vomiting from EtOH use - Concern for withdraw - IVFs, bolus 2 liters, then resume at 150ml/hour - replete Potassium and Magnesium - repeat BMP/Mag/CBC in AM - zofran prn - KUB (11/05/17) --> no acute findings - DVT prophylaxis with SCDs - supportive care. (2) MARK (acute kidney injury) ICD Codes: N17.9 - Acute kidney failure, unspecified Status: Acute Plan: Patient presents to the emergency department with complaints of diffuse abdominal pain 1 day patient found to have multiple electrolyte abnormalities including sodium 129, potassium 2.5, calcium 11.1 as well as acute kidney injury with BUN 27 creatinine 2.44 and GFR 31 Suspect dehydration - continue IVFs - see above - repeat BMP in AM (3) Dehydration ICD Codes: E86.0 - Dehydration Status: Acute Plan: See above (4) Hypocalcemia ICD Codes: E83.51 - Hypocalcemia Status: Acute Plan: - likely d/t dehydration - continue IVFs - observe (5) Hypokalemia ICD Codes: E87.6 - Hypokalemia Status: Resolved Plan: - replete - BMP in AM (6) Hyponatremia ICD Codes: E87.1 - Hypo-osmolality and hyponatremia Status: Resolved Plan: hydrate recheck in AM (7) ETOH abuse ICD Codes: F10.10 - Alcohol abuse, uncomplicated Plan: - Patient counseled encouraged to abstain - continue Librium scheduled - WA protocol - seizure precautions Quirino Cantu DO Nov 06, 2017 12:28
--- NOTE | 2017-11-06 14:14 | PD.CONS ---
HPI Service Nephrology Consult Requested By Dr. Cantu Reason for Consult Acute renal failure with electrolyte imbalance Primary Care Physician Unknown History of Present Illness Patient is a 32-year-old white male with history of alcoholism he stated that he stopped drinking end of July he used to drink 6 drinks per day has complications including pancreatitis in the past and renal insufficiency multiple episodes of renal failure and recovery, now admitted with dehydration, hypokalemia, weakness, hyponatremia. Review of Systems Constitutional: COMPLAINS OF: Fatigue Gastrointestinal: COMPLAINS OF: Anorexia Musculoskeletal: COMPLAINS OF: Joint pain, Muscle aches, Back pain Psychiatric: COMPLAINS OF: Anxiety, Confusion Past Family Social History Allergies: Coded Allergies: Sulfa (Sulfonamide Antibiotics) (Verified Allergy, Severe, hives, 10/11/17) Past Medical History seizures last seizure summer 2016 Anxiety Anorexia GERD Past Surgical History Inguinal hernia repair 2004 Reported Medications Reported Meds & Active Scripts Active Seroquel (Quetiapine Fumarate) 200 Mg Tab 200 Mg PO HS Seroquel (Quetiapine Fumarate) 25 Mg Tab 25 Mg PO BID Calcium 600 with Vitamin D (Calcium Carbonate-Cholecalciferol) 600-400 mg-Unit Tab 1 Tab PO BID Reported Multi Vitamin Daily (Multiple Vitamin) 1 Tab Tab Carafate (Sucralfate) 1 Gm Tab 1 Gm PO TID On empty stomach Lorazepam 1 Mg Tab 1 Mg PO Q8H PRN Protonix (Pantoprazole Sodium) 40 Mg Tab 40 Mg PO DAILY Keppra (Levetiracetam) 500 Mg Tab 500 Mg PO BID Active Ordered Medications Current Medications Medications (Trade) Dose Ordered Sig/Efren Route Start Time Stop Time Status Last Admin (NS Flush) 2 ml UNSCH PRN IV FLUSH 11/05/17 11:45 (NS Flush) 2 ml UNSCH PRN IV FLUSH 11/05/17 12:00 (NS Flush) 2 ml UNSCH PRN IV FLUSH 11/05/17 15:30 (NS Flush) 2 ml BID IV FLUSH 11/05/17 21:00 11/05/17 20:28 (Folate) 1 mg DAILY PO 11/06/17 09:00 11/11/17 08:59 11/06/17 08:44 (Vitamin B1) 100 mg DAILY PO 11/06/17 09:00 11/06/17 08:43 (Theragran M Tab) 1 tab DAILY PO 11/06/17 09:00 11/11/17 08:59 11/06/17 08:43 (Zofran Odt) 4 mg Q6H PRN PO 11/05/17 15:45 11/05/17 15:43 (Protonix) 40 mg DAILY PO 11/05/17 15:30 11/06/17 08:44 (Romazicon Inj) 0.2 mg Q1M PRN IV PUSH 11/05/17 15:30 (Ativan) 1 mg Q4H PRN PO 11/05/17 15:30 (Ativan Inj) 1 mg Q4H PRN IV PUSH 11/05/17 15:30 (Ativan) 2 mg Q2H PRN PO 11/05/17 15:30 (Ativan Inj) 2 mg Q2H PRN IV PUSH 11/05/17 15:30 (Ativan Inj) 2 mg Q1H PRN IV PUSH 11/05/17 15:30 (Ativan Inj) 2 mg Q15M PRN IV PUSH 11/05/17 15:30 Potassium Chloride/Sodium Chloride 1,000 ml @ 150 mls/hr Q6H40M IV 11/05/17 15:30 11/06/17 11:07 (Librium) 25 mg TID PO 11/05/17 18:00 11/06/17 12:11 (Keppra) 500 mg BID PO 11/05/17 21:00 11/06/17 08:44 (Protonix) 40 mg DAILY PO 11/06/17 09:00 (SEROquel) 200 mg HS PO 11/05/17 21:00 11/05/17 20:28 (Carafate) 1 gm TID PO 11/05/17 18:00 11/06/17 12:11 (Ativan Inj) 2 mg Q6H PRN IV PUSH 11/05/17 18:30 11/06/17 12:16 (SEROquel) 50 mg BID@09,12 PO 11/06/17 09:00 11/06/17 12:11 (Tylenol) 650 mg Q6H PRN PO 11/06/17 05:00 11/06/17 05:21 Social History smoked cigarettes 3-4 /day but stopped 1 month ago, ETOH up to 6 beer a day used Marijuana in past Physical Exam Vital Signs Vital Signs Date Time Temp Pulse Resp B/P (MAP) Pulse Ox O2 Delivery O2 Flow Rate FiO2 11/06/17 04:35 98.1 90 17 138/88 (105) 93 11/06/17 00:40 100.0 109 17 137/77 (97) 93 11/05/17 20:35 98.1 99 16 142/94 (110) 95 158/90 (112) 11/05/17 16:41 11/05/17 15:13 101 18 157/88 (111) 99 Room Air Physical Exam GENERAL: Well-nourished, well-developed patient. SKIN: Warm and dry. HEAD: Normocephalic. EYES: No scleral icterus. No injection or drainage. NECK: Supple, trachea midline. No JVD or lymphadenopathy. CARDIOVASCULAR: Regular rate and rhythm without murmurs, gallops, or rubs. RESPIRATORY: Breath sounds equal bilaterally. No accessory muscle use. GASTROINTESTINAL: Abdomen soft, non-tender, nondistended. EXTREMITIES: No cyanosis, or edema. NEUROLOGICAL: Awake, alert, and oriented x 3. Non-focal. Laboratory Laboratory Tests Test 11/06/17 07:53 White Blood Count 8.3 Red Blood Count 3.74 Hemoglobin 13.1 Hematocrit 37.4 Mean Corpuscular Volume 100.1 Mean Corpuscular Hemoglobin 35.1 Mean Corpuscular Hemoglobin Concent 35.1 Red Cell Distribution Width 13.6 Platelet Count 237 Mean Platelet Volume 7.9 Neutrophils (%) (Auto) 65.3 Lymphocytes (%) (Auto) 23.3 Monocytes (%) (Auto) 10.4 Eosinophils (%) (Auto) 0.6 Basophils (%) (Auto) 0.4 Neutrophils # (Auto) 5.4 Lymphocytes # (Auto) 1.9 Monocytes # (Auto) 0.9 Eosinophils # (Auto) 0.1 Basophils # (Auto) 0.0 CBC Comment DIFF FINAL Differential Comment Blood Urea Nitrogen 26 Creatinine 2.48 Random Glucose 82 Total Protein 5.8 Albumin 3.3 Calcium Level 9.1 Alkaline Phosphatase 99 Aspartate Amino Transf (AST/SGOT) 40 Alanine Aminotransferase (ALT/SGPT) 33 Total Bilirubin 0.7 Sodium Level 135 Potassium Level 2.7 Chloride Level 82 Carbon Dioxide Level 42.4 Anion Gap 11 Estimat Glomerular Filtration Rate 31 Magnesium Level 1.4 Total Creatine Kinase 151 Result Diagram: 6/10/18 0753 11/06/17 0753 Imaging Last Impressions Abdomen X-Ray 11/05/17 0000 Signed Impressions: CONCLUSION: Benign abdomen. Assessment and Plan Problem List: (1) MARK (acute kidney injury) ICD Codes: N17.9 - Acute kidney failure, unspecified Status: Acute Plan: patient is on replacement fluids, has Metabolic Alkalosis hypochloremia hypokalemia hypertension rule out mineralocorticoid access check cortisol, Aldosterone, Renin check urine electrolytes We will get kidney ultrasound done follow BMP (2) Hypokalemia ICD Codes: E87.6 - Hypokalemia Status: Resolved Plan: likely due to total body deficiency vs renal losses (3) Hyponatremia ICD Codes: E87.1 - Hypo-osmolality and hyponatremia Status: Resolved Plan: improved (4) Dehydration ICD Codes: E86.0 - Dehydration Status: Acute Plan: on IVF NS with KCL at 150 cc/hr Jessica Wilcox MD Nov 06, 2017 14:14
--- NOTE | 2017-11-06 14:43 | EKG ---
Date Performed: 11/05/2017 Time Performed: 15:48:39 PTAGE: 32 years EKG: SINUS TACHYCARDIA WITH SHORT IN INTERVAL ST DEVIATION AND MODERATE T-WAVE ABNORMALITY, CONS IDER ANTERIOR ISCHEMIA ABNORMAL ECG PREVIOUS TRACING : 10/11/2017 11.25 Since the previous tracing, no significant change noted DOCTOR: Collins Costa Interpretating Date/Time 11/06/2017 14:40:03
--- NOTE | 2017-11-06 16:03 | RADRPT ---
EXAM DATE: 11/06/2017 3:57 PM EDT AGE/SEX: 32 years / Male INDICATIONS: Increased BUN/creatinine. CLINICAL DATA: This is the patient's subsequent encounter. Patient reports that signs and symptoms h ave been present for 4 - 6 days and indicates a pain score of 1/10. MEDICAL/SURGICAL HISTORY: . Gastroesophageal reflux disease. Seizures. History of head trauma. . Inguinal hernia repair. COMPARISON: [facility] – [place], US KIDNEY/RENAL/BLADDER, 05/24/2016. . MEASUREMENTS: Right Kidney:__11.8 x 5.2 x 4.7 cm cm Left Kidney:__11.0 x 4.8 x 5.0 cm cm FINDINGS: Right Kidney: No mass or hydronephrosis. Left Kidney: No mass or hydronephrosis. Bladder: Within normal limits given the degree of distension. CONCLUSION: 1. Unremarkable renal ultrasound. Electronically signed by: Gatito Angel MD 11/06/2017 4:02 PM EDT
[2017-11-06 18:24] LABS: BICARBONATE 40.2 MEQ/L (21.0-32.0); CALCIUM 8.8 MG/DL (8.5-10.1); CREATININE 2.29 MG/DL (0.60-1.30); MAGNESIUM 2.3 MG/DL (1.5-2.5)
[2017-11-06 19:41] LABS: BICARBONATE 38.5 MEQ/L (21.0-32.0); CALCIUM 8.7 MG/DL (8.5-10.1); CREATININE 2.29 MG/DL (0.60-1.30)
[2017-11-06] MEDS: QUEtiapine FUMARATE 200 MG TAB PO SCH (21:00)
[2017-11-07] VITALS (7 sets, daily range): BP systolic 128–150; BP diastolic 78–97; PULSE 84–104; RESP 16–18; TEMP 97.4–99.2; O2SAT 95–100
[2017-11-07] MEDS: LORazepam 2 MG/ML VIAL IV PUSH PRN ×4 (02:02→23:54)
[2017-11-07] MEDS: NS + KCL 20 MEQ INJ 1,000 ML IV SCH ×2 (04:18→12:33)
[2017-11-07] MEDS: PANTOPRAZOLE SOD 40 MG DELAYED RELEASE TAB PO SCH ×2 (07:40→09:00)
[2017-11-07] MEDS: levETIRAcetam 500 MG TAB PO SCH ×2 (07:40→20:24)
[2017-11-07] MEDS: QUEtiapine FUMARATE 25 MG TAB PO SCH ×2 (07:40→12:28)
[2017-11-07] MEDS: THIAMINE HCL 100 MG TAB PO SCH (07:40)
[2017-11-07] MEDS: MULTIVITAMINS/MINERALS THERAPEUTIC TAB PO SCH (07:41)
[2017-11-07] MEDS: SUCRALFATE 1 GM TAB PO SCH ×3 (07:41→17:20)
[2017-11-07] MEDS: chlordiazePOXIDE 25 MG CAP PO SCH (07:41)
[2017-11-07] MEDS: FOLIC ACID 1 MG TAB PO SCH (07:41)
[2017-11-07] MEDS: SODIUM CHLORIDE 0.9% FLUSH 10 ML FLUSH IV FLUSH SCH ×2 (09:00→20:24)
[2017-11-07 09:38] LABS: BICARBONATE 32.4 MEQ/L (21.0-32.0); CALCIUM 7.8 MG/DL (8.5-10.1); CREATININE 1.72 MG/DL (0.60-1.30); MAGNESIUM 1.7 MG/DL (1.5-2.5)
--- NOTE | 2017-11-07 11:14 | HHI.PR ---
Subjective Remarks Patient awake and alert sitting up in bed offers no concerns/complaints tolerating PO intake no longer having N/V Objective Vitals Vital Signs Date Time Temp Pulse Resp B/P (MAP) Pulse Ox O2 Delivery O2 Flow Rate FiO2 11/07/17 08:00 98.3 84 18 128/84 (99) 95 11/07/17 07:35 97.4 91 18 137/83 (101) 97 11/07/17 04:15 97.7 92 16 140/85 (103) 97 11/07/17 03:59 104 11/06/17 23:45 98.7 100 16 131/81 (98) 96 11/06/17 20:15 98.0 93 16 142/85 (104) 98 11/06/17 20:11 93 11/06/17 16:00 97.5 90 16 150/96 (114) 99 11/06/17 12:00 97.8 96 16 129/71 (90) 98 Result Diagram: 11/06/17 0753 11/07/17 0816 Other Results Laboratory Tests Test 11/05/17 11:49 11/05/17 12:59 11/06/17 07:53 11/06/17 16:15 White Blood Count 15.5 TH/MM3 8.3 TH/MM3 Red Blood Count 4.50 MIL/MM3 3.74 MIL/MM3 Hemoglobin 15.8 GM/DL 13.1 GM/DL Hematocrit 45.0 % 37.4 % Mean Corpuscular Volume 100.1 FL 100.1 FL Mean Corpuscular Hemoglobin 35.2 PG 35.1 PG Mean Corpuscular Hemoglobin Concent 35.1 % 35.1 % Red Cell Distribution Width 13.5 % 13.6 % Platelet Count 414 TH/MM3 237 TH/MM3 Mean Platelet Volume 7.8 FL 7.9 FL Neutrophils (%) (Auto) 84.5 % 65.3 % Lymphocytes (%) (Auto) 5.6 % 23.3 % Monocytes (%) (Auto) 9.7 % 10.4 % Eosinophils (%) (Auto) 0.0 % 0.6 % Basophils (%) (Auto) 0.2 % 0.4 % Neutrophils # (Auto) 13.1 TH/MM3 5.4 TH/MM3 Lymphocytes # (Auto) 0.9 TH/MM3 1.9 TH/MM3 Monocytes # (Auto) 1.5 TH/MM3 0.9 TH/MM3 Eosinophils # (Auto) 0.0 TH/MM3 0.1 TH/MM3 Basophils # (Auto) 0.0 TH/MM3 0.0 TH/MM3 CBC Comment DIFF FINAL DIFF FINAL Differential Comment Urine Color YELLOW Urine Turbidity CLEAR Urine pH 6.0 Urine Specific [place] 1.027 Urine Protein 100 mg/dL Urine Glucose (UA) TRACE mg/dL Urine Ketones 10 mg/dL Urine Occult Blood SMALL Urine Nitrite NEG Urine Bilirubin NEG Urine Urobilinogen LESS THAN 2.0 MG/DL Urine Leukocyte Esterase NEG Urine WBC 1 /hpf Urine Squamous Epithelial Cells <1 /hpf Urine Hyaline Casts 42 /lpf Urine Mucus FEW /lpf Microscopic Urinalysis Comment CULT NOT INDICATED Blood Urea Nitrogen 27 MG/DL 27 MG/DL 26 MG/DL 24 MG/DL Creatinine 2.38 MG/DL 2.44 MG/DL 2.48 MG/DL 2.29 MG/DL Random Glucose 178 MG/DL 134 MG/DL 82 MG/DL 106 MG/DL Total Protein 7.9 GM/DL 7.9 GM/DL 5.8 GM/DL Albumin 4.5 GM/DL 3.3 GM/DL Calcium Level 11.9 MG/DL 11.6 MG/DL 9.1 MG/DL 8.8 MG/DL Alkaline Phosphatase 118 U/L 99 U/L Aspartate Amino Transf (AST/SGOT) 29 U/L 40 U/L Alanine Aminotransferase (ALT/SGPT) 37 U/L 33 U/L Total Bilirubin 0.6 MG/DL 0.7 MG/DL Sodium Level 127 MEQ/L 129 MEQ/L 135 MEQ/L 136 MEQ/L Potassium Level 2.4 MEQ/L 2.5 MEQ/L 2.7 MEQ/L 3.0 MEQ/L Chloride Level 61 MEQ/L 63 MEQ/L 82 MEQ/L 87 MEQ/L Carbon Dioxide Level 43.1 MEQ/L 43.8 MEQ/L 42.4 MEQ/L 40.2 MEQ/L Anion Gap 23 MEQ/L 22 MEQ/L 11 MEQ/L 9 MEQ/L Estimat Glomerular Filtration Rate 32 ML/MIN 31 ML/MIN 31 ML/MIN 33 ML/MIN Protein Corrected Calcium 11.4 MG/DL 11.1 MG/DL Magnesium Level 0.9 MG/DL 1.4 MG/DL 2.3 MG/DL Lipase 165 U/L Ethyl Alcohol Level LESS THAN 3 MG/DL Urine Opiates Screen NEG Urine Barbiturates Screen NEG Urine Amphetamines Screen NEG Urine Benzodiazepines Screen POS Urine Cocaine Screen NEG Urine Cannabinoids Screen NEG Total Creatine Kinase 151 U/L Test 11/06/17 18:40 11/07/17 08:16 Blood Urea Nitrogen 23 MG/DL 20 MG/DL Creatinine 2.29 MG/DL 1.72 MG/DL Random Glucose 114 MG/DL 85 MG/DL Calcium Level 8.7 MG/DL 7.8 MG/DL Sodium Level 136 MEQ/L 142 MEQ/L Potassium Level 3.1 MEQ/L 3.4 MEQ/L Chloride Level 88 MEQ/L 101 MEQ/L Carbon Dioxide Level 38.5 MEQ/L 32.4 MEQ/L Anion Gap 10 MEQ/L 9 MEQ/L Estimat Glomerular Filtration Rate 33 ML/MIN 47 ML/MIN Random Cortisol 23.5 MCG/DL Magnesium Level 1.7 MG/DL Imaging Last Impressions Abdomen X-Ray 11/05/17 0000 Signed Impressions: CONCLUSION: Benign abdomen. Objective Remarks GENERAL: This is a well-nourished, well-developed patient, in no apparent distress. CARDIOVASCULAR: Regular rate and rhythm without murmurs, gallops, or rubs. RESPIRATORY: Clear to auscultation. Breath sounds equal bilaterally. No wheezes , rales, or rhonchi. GASTROINTESTINAL: Abdomen soft, non-tender, nondistended. Normal active bowel sounds MUSCULOSKELETAL: Extremities without clubbing, cyanosis, or edema. NEURO: Alert & Oriented x4 to person, place, time, situation. Moves all ext x4 A/P Problem List: (1) Metabolic alkalosis ICD Codes: E87.3 - Alkalosis Status: Acute Plan: Metabolic alkalosis - improving - improving - Patient with metabolic acidosis, likely secondary to persistent vomiting from EtOH use - Concern for withdraw - replete electrolyses - repeat BMP in AM - zofran prn - KUB (11/05/17) --> no acute findings - DVT prophylaxis with SCDs - supportive care. MARK (acute kidney injury) Patient presents to the emergency department with complaints of diffuse abdominal pain 1 day patient found to have multiple electrolyte abnormalities including sodium 129, potassium 2.5, calcium 11.1 as well as acute kidney injury with BUN 27 creatinine 2.44 and GFR 31 Suspect dehydration - continue IVFs, decrease IVF rate to 84 ml/H - repeat BMP in AM Dehydration See above Hypocalcemia - improved - likely d/t dehydration - continue IVFs - observe Hypokalemia - replete - BMP in AM Hyponatremia - improved hydrate recheck in AM ETOH abuse - Patient counseled encouraged to abstain - continue Librium scheduled, taper dose - [facility] protocol - seizure precautions (2) MARK (acute kidney injury) ICD Codes: N17.9 - Acute kidney failure, unspecified Status: Acute (3) Dehydration ICD Codes: E86.0 - Dehydration Status: Acute (4) Hypocalcemia ICD Codes: E83.51 - Hypocalcemia Status: Acute (5) Hypokalemia ICD Codes: E87.6 - Hypokalemia Status: Resolved (6) Hyponatremia ICD Codes: E87.1 - Hypo-osmolality and hyponatremia Status: Resolved Plan: hydrate recheck in AM (7) ETOH abuse ICD Codes: F10.10 - Alcohol abuse, uncomplicated Assessment and Plan Patient examined. Assessment and plan formulated with Iza Engel PA-C. I agree with the above. n/v stopped. mark and hypomag/hyponatremia/hypokalemia all improved wean librium down. plan for d/c in AM. lower ivf.; Iza Engel Nov 07, 2017 11:14 Philip Ayala MD Nov 07, 2017 11:17
[2017-11-07] MEDS ORDERED: POTASSIUM CHLORIDE 20 MEQ CONTROLLED RELEASE TAB PO ONE (11:15)
--- NOTE | 2017-11-07 14:14 | HHI.NPPN ---
Subjective History of Present Illness 32-year-old with history of alcoholism and multiple episodes of acute renal insufficiency Objective Data Data Vital Signs Date Time Temp Pulse Resp B/P (MAP) Pulse Ox O2 Delivery O2 Flow Rate FiO2 11/07/17 12:00 99.2 99 18 128/80 (96) 97 11/07/17 08:00 98.3 84 18 128/84 (99) 95 11/07/17 07:35 97.4 91 18 137/83 (101) 97 11/07/17 04:15 97.7 92 16 140/85 (103) 97 11/07/17 03:59 104 11/06/17 23:45 98.7 100 16 131/81 (98) 96 11/06/17 20:15 98.0 93 16 142/85 (104) 98 11/06/17 20:11 93 11/06/17 16:00 97.5 90 16 150/96 (114) 99 -: 11/06/17 0753 11/07/17 0816 Physical Exam General Appearance: Well Developed, Well Nourished Neck Neck Exam: Neck Supple Pulmonary Resp Exam: Clear Bilaterally, Breath Sounds Equal Cardiology CV Exam: Regular, Normal Sinus Rhythm Gastrointestinal/Abdomen GI Exam: Soft, Non-Tender, Bowel Sounds Present Extremeties Extremities Exam: No Edema Assessment/Plan Problem List: (1) MARK (acute kidney injury) ICD Codes: N17.9 - Acute kidney failure, unspecified Status: Acute Plan: patient is on replacement fluids, has Metabolic Alkalosis hypochloremia hypokalemia hypertension kidney ultrasound done was negative for hydronephrosis Most likely is severely dehydrated Improvement in renal functions and his metabolic alkalosis seen with hydrate follow BMP (2) Hypokalemia ICD Codes: E87.6 - Hypokalemia Status: Resolved Plan: likely due to total body deficiency vs renal losses (3) Hyponatremia ICD Codes: E87.1 - Hypo-osmolality and hyponatremia Status: Resolved Plan: improved (4) Dehydration ICD Codes: E86.0 - Dehydration Status: Acute Plan: on IVF NS with KCL at 84 cc/hr Jessica Wilcox MD Nov 07, 2017 14:14
[2017-11-07] MEDS: QUEtiapine FUMARATE 200 MG TAB PO SCH (20:24)
[2017-11-07] MEDS: ACETAMINOPHEN 325 MG TAB PO PRN (20:32)
[2017-11-08 00:01] VITALS: BP 142/76; PULSE 88; RESP 17; TEMP 98.5; O2SAT 99
[2017-11-08 03:23] LABS: BICARBONATE 26.4 MEQ/L (21.0-32.0); CALCIUM 7.3 MG/DL (8.5-10.1); CREATININE 1.35 MG/DL (0.60-1.30)
[2017-11-08 03:36] LABS: CALCIUM-PROTEIN CORRECTED 7.9 MG/DL (8.5-10.1); TOTAL PROTEIN 5.9 GM/DL (6.4-8.2)
[2017-11-08] MEDS: NS + KCL 20 MEQ INJ 1,000 ML IV SCH (04:18)
[2017-11-08] MEDS: levETIRAcetam 500 MG TAB PO SCH (07:52)
[2017-11-08] MEDS: THIAMINE HCL 100 MG TAB PO SCH (07:52)
[2017-11-08] MEDS: FOLIC ACID 1 MG TAB PO SCH (07:52)
[2017-11-08] MEDS: QUEtiapine FUMARATE 25 MG TAB PO SCH ×2 (07:53→12:43)
[2017-11-08] MEDS: ACETAMINOPHEN 325 MG TAB PO PRN (07:53)
[2017-11-08] MEDS: MULTIVITAMINS/MINERALS THERAPEUTIC TAB PO SCH (07:53)
[2017-11-08] MEDS: PANTOPRAZOLE SOD 40 MG DELAYED RELEASE TAB PO SCH ×2 (07:53→07:54)
[2017-11-08] MEDS: SUCRALFATE 1 GM TAB PO SCH ×2 (07:53→12:43)
[2017-11-08] MEDS: SODIUM CHLORIDE 0.9% FLUSH 10 ML FLUSH IV FLUSH SCH (07:54)
[2017-11-08 08:00] VITALS: BP 147/111; PULSE 70; RESP 20; TEMP 98; O2SAT 100
[2017-11-08] MEDS: LORazepam 2 MG/ML VIAL IV PUSH PRN (08:54)
[2017-11-08] MEDS ORDERED: QUET5TAB PO (09:52)
--- NOTE | 2017-11-08 09:55 | HHI.DCPOC ---
Discharge Care Plan Diagnosis: (1) Electrolyte abnormality (2) Metabolic alkalosis (3) Hypercalcemia (4) Hypokalemia (5) Hyponatremia (6) Dehydration (7) MARK (acute kidney injury) Goals to Promote Your Health * To prevent worsening of your condition and complications * To maintain your health at the optimal level Directions to Meet Your Goals Take your medications as prescribed Follow your dietary instruction Follow activity as directed Keep your appointments as scheduled Take your immunizations and boosters as scheduled If your symptoms worsen call your PCP, if no PCP go to Urgent Care Center or Emergency Room Smoking is Dangerous to Your Health. Avoid second hand smoke Call the 24-hour hour crisis hotline for domestic abuse at Iza Engel Nov 08, 2017 09:54
--- NOTE | 2017-11-08 09:58 | HHI.DS ---
Discharge Summary Admission Date Nov 05, 2017 at 15:39 Discharge Date: Nov 08, 2017 Admitting Diagnosis Acute kidney injury, hypokalemia, hyponatremia, hypercalcemia, dehydration (1) Metabolic alkalosis ICD Codes: E87.3 - Alkalosis Status: Acute (2) MARK (acute kidney injury) ICD Codes: N17.9 - Acute kidney failure, unspecified Status: Acute (3) Dehydration ICD Codes: E86.0 - Dehydration Status: Acute (4) Hypocalcemia ICD Codes: E83.51 - Hypocalcemia Status: Acute (5) Hypokalemia ICD Codes: E87.6 - Hypokalemia Status: Resolved (6) Hyponatremia ICD Codes: E87.1 - Hypo-osmolality and hyponatremia Status: Resolved (7) ETOH abuse ICD Codes: F10.10 - Alcohol abuse, uncomplicated Consultants Dr. Wilcox Procedures none Brief History This is a 32-year-old male with history of alcohol abuse, seizures last seizure summer 2016, history of anorexia, and GERD presents to the ED for abdominal pain. Patient was recently admitted September 2017 for acute pancreatitis secondary to EtOH abuse patient left AMA at that time. Patient returns to the emergency department today with complaints of of generalized crampy abdominal pain, bilateral lower back pain, nausea and vomiting. Patient reports that his N/V stated 4-5 days ago. Patient denies diarrhea or sick contacts. Patient denies recent travel, new foods or well water. Patient's abd pain and bilateral back pain stated last night. Patient states that he has mild aching pain cramping pain diffuse over the abdomen. Patient denies any pain radiation. Patient complained of aching pain in the low back area. Patient denies any chest pain, shortness of breath, fever, dysuria frequency. CBC/BMP: 11/06/17 0753 11/08/17 0239 Significant Findings Laboratory Tests Test 11/05/17 11:49 11/05/17 12:59 11/06/17 07:53 11/06/17 16:15 White Blood Count 15.5 TH/MM3 (4.0-11.0) Mean Corpuscular Volume 100.1 FL (80.0-100.0) 100.1 FL (80.0-100.0) Mean Corpuscular Hemoglobin 35.2 PG (27.0-34.0) 35.1 PG (27.0-34.0) Neutrophils (%) (Auto) 84.5 % (16.0-70.0) Lymphocytes (%) (Auto) 5.6 % (9.0-44.0) Monocytes (%) (Auto) 9.7 % (0.0-8.0) 10.4 % (0.0-8.0) Neutrophils # (Auto) 13.1 TH/MM3 (1.8-7.7) Lymphocytes # (Auto) 0.9 TH/MM3 (1.0-4.8) Monocytes # (Auto) 1.5 TH/MM3 (0-0.9) Urine Protein 100 mg/dL (NEG-TRACE) Urine Ketones 10 mg/dL (NEG) Urine Occult Blood SMALL (NEG) Urine Mucus FEW /lpf (OCC) Blood Urea Nitrogen 27 MG/DL (7-18) 27 MG/DL (7-18) 26 MG/DL (7-18) 24 MG/DL (7-18) Creatinine 2.38 MG/DL (0.60-1.30) 2.44 MG/DL (0.60-1.30) 2.48 MG/DL (0.60-1.30) 2.29 MG/DL (0.60-1.30) Random Glucose 178 MG/DL (74-106) 134 MG/DL (74-106) Calcium Level 11.9 MG/DL (8.5-10.1) 11.6 MG/DL (8.5-10.1) Alkaline Phosphatase 118 U/L (45-117) Sodium Level 127 MEQ/L (136-145) 129 MEQ/L (136-145) 135 MEQ/L (136-145) Potassium Level 2.4 MEQ/L (3.5-5.1) 2.5 MEQ/L (3.5-5.1) 2.7 MEQ/L (3.5-5.1) 3.0 MEQ/L (3.5-5.1) Chloride Level 61 MEQ/L (98-107) 63 MEQ/L (98-107) 82 MEQ/L (98-107) 87 MEQ/L (98-107) Carbon Dioxide Level 43.1 MEQ/L (21.0-32.0) 43.8 MEQ/L (21.0-32.0) 42.4 MEQ/L (21.0-32.0) 40.2 MEQ/L (21.0-32.0) Anion Gap 23 MEQ/L (5-15) 22 MEQ/L (5-15) Estimat Glomerular Filtration Rate 32 ML/MIN (>89) 31 ML/MIN (>89) 31 ML/MIN (>89) 33 ML/MIN (>89) Protein Corrected Calcium 11.4 MG/DL (8.5-10.1) 11.1 MG/DL (8.5-10.1) Magnesium Level 0.9 MG/DL (1.5-2.5) 1.4 MG/DL (1.5-2.5) Urine Benzodiazepines Screen POS (NEG) Red Blood Count 3.74 MIL/MM3 (4.50-5.90) Hematocrit 37.4 % (39.0-51.0) Total Protein 5.8 GM/DL (6.4-8.2) Albumin 3.3 GM/DL (3.4-5.0) Aspartate Amino Transf (AST/SGOT) 40 U/L (15-37) Test 11/06/17 18:40 11/07/17 08:16 11/08/17 02:39 Blood Urea Nitrogen 23 MG/DL (7-18) 20 MG/DL (7-18) Creatinine 2.29 MG/DL (0.60-1.30) 1.72 MG/DL (0.60-1.30) 1.35 MG/DL (0.60-1.30) Random Glucose 114 MG/DL (74-106) Potassium Level 3.1 MEQ/L (3.5-5.1) 3.4 MEQ/L (3.5-5.1) Chloride Level 88 MEQ/L (98-107) Carbon Dioxide Level 38.5 MEQ/L (21.0-32.0) 32.4 MEQ/L (21.0-32.0) Estimat Glomerular Filtration Rate 33 ML/MIN (>89) 47 ML/MIN (>89) 62 ML/MIN (>89) Calcium Level 7.8 MG/DL (8.5-10.1) 7.3 MG/DL (8.5-10.1) Total Protein 5.9 GM/DL (6.4-8.2) Protein Corrected Calcium 7.9 MG/DL (8.5-10.1) Imaging Last Impressions Renal Ultrasound 11/06/17 0000 Signed Impressions: CONCLUSION: 1. Unremarkable renal ultrasound. Abdomen X-Ray 11/05/17 0000 Signed Impressions: CONCLUSION: Benign abdomen. PE at Discharge GENERAL: This is a well-nourished, well-developed patient, in no apparent distress. CARDIOVASCULAR: Regular rate and rhythm without murmurs, gallops, or rubs. RESPIRATORY: Clear to auscultation. Breath sounds equal bilaterally. No wheezes , rales, or rhonchi. GASTROINTESTINAL: Abdomen soft, non-tender, nondistended. Normal active bowel sounds MUSCULOSKELETAL: Extremities without clubbing, cyanosis, or edema. NEURO: Alert & Oriented x4 to person, place, time, situation. Moves all ext x4 Hospital Course Metabolic alkalosis - improving - improving - Patient with metabolic acidosis, likely secondary to persistent vomiting from EtOH use - Concern for withdraw - replete electrolyses - BMP monitored - zofran prn - KUB (11/05/17) --> no acute findings - DVT prophylaxis with SCDs - supportive care. MARK (acute kidney injury) Patient presents to the emergency department with complaints of diffuse abdominal pain 1 day patient found to have multiple electrolyte abnormalities including sodium 129, potassium 2.5, calcium 11.1 as well as acute kidney injury with BUN 27 creatinine 2.44 and GFR 31 - continue IVFs, decrease IVF rate to 84 ml/H - kidney ultrasound done was negative for hydronephrosis - Most likely is severely dehydrated - Improvement in renal functions and his metabolic alkalosis seen with hydrate Dehydration See above Hypocalcemia - improved - likely d/t dehydration - continue IVFs - observe Hypokalemia - improved - replete Hyponatremia - improved hydrate recheck in AM ETOH abuse - Patient counseled encouraged to abstain - continue Librium scheduled, taper dose - [facility] protocol - seizure precautions Today patient admits that he ran out of his home Ativan 2-3 days prior to starting vomiting. Patient reports taking ativan 0.5 mg TID. Patient's psychiatrist Dr. Perez was prescribing his ativan but patient missed an appointment due to his mother's knee surgery. Withdraw from Ativan likely the cause of patient's vomiting. Explained to patient that he will be DC'd home with prescription for Ativan taper to wean off over the next ten days. Pt Condition on Discharge: Stable Discharge Disposition: Discharge Home Discharge Instructions DIET: Follow Instructions for: As Tolerated, No Restrictions Activities you can perform: Regular-No Restrictions Follow up Referrals: Behavioral Services - [address] Perez PCP Follow-up - [address] Juarez New Medications: Lorazepam (Ativan) 0.5 Mg Tab 0.5 MG PO DIRECTED for anxiety, #17 TAB 0 Refills 0.5mg po tid x 2 days, then 0.5mg po bid x 3 days then 0.5mg po daily x 5 days Continued Medications: Calcium Carbonate-Cholecalciferol (Calcium 600 with Vitamin D) 600-400 mg-Unit Tab 1 TAB PO BID for Calcium Supplement, #60 TAB 0 Refills Levetiracetam (Keppra) 500 Mg Tab 500 MG PO BID for Control Seizures, #60 TAB 0 Refills Multiple Vitamin (Multi Vitamin Daily) 1 Tab Tab Pantoprazole (Protonix) 40 Mg Tab 40 MG PO DAILY for Reflux, #30 TAB 0 Refills Quetiapine (Seroquel) 200 Mg Tab 200 MG PO HS, #30 TAB 0 Refills Quetiapine (Quetiapine) 50 Mg Tab 50 MG PO BID, #60 TAB 0 Refills Sucralfate (Carafate) 1 Gm Tab 1 GM PO TID for Ulcer Prevention, #90 TAB 0 Refills On empty stomach Discontinued Medications: Lorazepam (Lorazepam) 1 Mg Tab 0.5 MG PO Q8H PRN for ANXIETY, TAB 0 Refills Additional Information prescription for Ativan taper written patient to wean off of ativan over the next ten days. Iza Engel Nov 08, 2017 09:58 Philip Ayala MD Nov 08, 2017 13:19
[2017-11-08] MEDS ORDERED: LORA-392 PO (11:34)
[2017-11-08 12:00] VITALS: BP 130/93; PULSE 97; RESP 20; TEMP 98.1; O2SAT 99
[2017-11-08 13:01] VITALS: PULSE 112
[2017-11-09 10:09] LABS: RENIN 7.6 ng/mL/h
== END 2017-11-08 13:22 | disposition home or self-care (01) | DRG 683 ==
LOC: NEPD 11:17 → NEDA 15:39 → N06B 16:51
PROVIDERS: ADMIT Hospitalist; ATTEND Hospitalist
DX: N17.9 Acute kidney failure, unspecified (principal); E87.3 Alkalosis; E87.1 Hypo-osmolality and hyponatremia; E87.8 Other disorders of electrolyte and fluid balance, not elsewhere classified; E86.0 Dehydration; E83.51 Hypocalcemia; E83.52 Hypercalcemia; E87.6 Hypokalemia; E83.42 Hypomagnesemia; R10.84 Generalized abdominal pain; K21.9 Gastro-esophageal reflux disease without esophagitis; M54.5 Low back pain; R63.0 Anorexia; I10 Essential (primary) hypertension; F41.9 Anxiety disorder, unspecified; F32.9 Major depressive disorder, single episode, unspecified; F10.10 Alcohol abuse, uncomplicated; Z87.891 Personal history of nicotine dependence
CPT/HCPCS: 74018; 76775; 80048; 80053; 80307; 81001; 82088; 82533; 82550; 82948; 83690; 83735; 84155; 84244; 85025; 93005; 96361; 96365; G0481; J2060; J3475; J3480; J7030

== ENCOUNTER 2017-12-06 14:26 | Inpatient (IN) ==
[2017-12-06] MEDS ORDERED: Famotidine PF Inj 20 MG/2 ML Vial IV.PUSH ONE (16:38)
[2017-12-06] MEDS ORDERED: Ondansetron Liq 4 MG/5 ML UDC PO ONE (16:38)
[2017-12-06] MEDS ORDERED: Thiamine Inj 100 MG in Sodium Chlor 0.9% Inj 100 ML IV.SIG ONE (16:38)
[2017-12-06] MEDS ORDERED: Sod Chloride 0.9% Inj 1,000 ML IV.SIG ONE ×2 (16:38→16:42)
--- NOTE | 2017-12-06 16:57 | ED ---
HPI General Chief Complaint: Seizure Stated Complaint: Poss Seizures/Vomiting Time Seen by Provider: 12/06/17 16:12 Source: patient and family Limitations: other (seizure/ post-ictal) History of Present Illness HPI Narrative: 32yM presenting with nausea, vomiting, and seizures. The patient states that he has a history of a seizure disorder for which he takes 1000 mg Keppra PO BID; he also has a history of alcohol use (5-6 drinks per day, every day, prefers liquor, stopped abruptly 3 days ago). He says that since he stopped drinking he's been having nausea, multiple episodes of vomiting/ inability to tolerate any PO intake, and multiple episodes of diarrhea per day. He has not been able to keep his medications, including Ativan, Seroquel, and Keppra, down without vomiting. His mother witnessed a generalized tonic-clonic seizure lasting approximately 1 minute just prior to arrival followed by a post- ictal period of 15-20 minutes. The patient states that he thinks he had 2 additional unwitnessed seizures today as well. Admits to diaphoresis, visual disturbance ("the lights look hazy"), anxiety, tremor, headache, and nausea. History of pancreatitis. Related Data Home Medications Medication Instructions Recorded Confirmed Seroquel 200 mg PO HS 12/06/17 12/06/17 lorazepam [Ativan] 0.5 mg PO TID PRN 12/06/17 12/06/17 Allergies Allergy/AdvReac Type Severity Reaction Status Date / Time Sulfa (Sulfonamide Allergy Severe hives Verified 10/11/17 07:56 Antibiotics) Review of Systems ROS Unobtainable other (ROS interrupted/ unable to obtain further information as patient seized during interview) [facility] Medical History Medical History Alcohol abuse (Acute) Hernia (Acute) Pancreatitis (Acute) Seizures (Acute) Social History Social History Substance History: No History of Abuse Second Hand Smoke Exposure: Yes Smoking Status: Current every day smoker Tobacco Type: Cigarettes How Often Do You Have a Drink Containing Alcohol: Never Hx Recent Travel: No Recent Travel in [facility] within the Last 8 Weeks: No Recent Out of Country Travel within the Last 8 Weeks: No Immunization History Tetanus Immunization: Unable to Assess Hx Influenza Vaccine This Season: Unable to Assess Exam Narrative Exam Narrative: GEN: Appears older than stated age HEENT: No obvious head injury, no raccoon eyes or Esparza's sign, no intra-oral trauma CARDIO: Tachy, regular PULM: Clear to auscultation bilaterally ABD: Soft, non-tender, non-distended, no guarding or rebound EXT/MS: No lower extremity edema, warm and well-perfused, multiple ecchymoses to all extremities NEURO: Initially patient arrived with GCS of 15, conversive, with mild tremor of bilateral hands/ tongue fasciculations, did not appear to be hallucinating; however, within 5 minutes of arrival to treatment room the patient became unresponsive, with generalized tonic-clonic activity and oxygen desaturation to mid 80s. Seizure lasted approximately 1 minute, patient post-ictal following. No incontinence or tongue biting noted. Course Initial Documented Vital Signs Temperature 99.6 F 12/06/17 14:49 Pulse Rate 110 H 12/06/17 14:49 Respiratory Rate 20 12/06/17 14:49 Blood Pressure 147/86 H 12/06/17 14:49 Pulse Oximetry 97 12/06/17 14:49 Last Documented Vital Signs Temperature 98.5 F 12/07/17 04:00 Pulse Rate 96 H 12/07/17 04:00 Respiratory Rate 20 12/07/17 04:00 Blood Pressure 102/62 12/07/17 04:00 Pulse Oximetry 96 12/07/17 08:00 Critical Care Time Critical Care Time: Yes Total Critical Care Time: 40 Attestation: Total critical care time 40 minutes. This includes examining and stabilizing the patient, gathering a history from a source other than the patient (i.e., chart review, discussion with patient's mother), formulating a differential diagnosis, ordering and interpreting laboratory tests and EKG, ordering and interpreting radiology tests, discussing the patient's care with other providers (critical care service), and counseling the patient and family. Medical Decision Making MDM Narrative Medical decision making narrative: Assessment: 32yM presenting with multiple seizures Differential diagnosis includes, but is not limited to: withdrawal seizure, seizure secondary to medication non-compliance (nausea/ vomiting, inability to tolerate PO meds), TBI/ post-traumatic seizure, electrolyte abnormality, dehydration, pancreatitis, gastritis Plan: Seizure precautions 2 mg IM ativan given during seizure with termination of seizure shortly thereafter Will also load with 1 g Keppra as patient has not been able to tolerate his home PO dose x several days IV fluids Labs, including lytes, EtOH, drug screen CT head to r/o ICH Pepcid, zofran, thiamine Patient requires admission as he is having multiple seizures secondary to inability to tolerate PO antiepileptics at home/ highly suspect alcohol withdrawal is also a contributing factor. Case discussed with Dr. Allen of the medical critical care service. Medical Records Medical records reviewed: Yes I reviewed the patient's medical records. Lab Data Lab results reviewed: Yes I reviewed the patient's lab results. Result diagrams: 12/07/17 06:33 12/07/17 09:58 Lab Results 12/06/17 12/06/17 12/06/17 Range/Units 16:45 16:45 16:45 WBC 11.6 H (4.0-11.0) th/mm3 RBC 4.01 L (4.50-5.90) mil/mm3 Hgb 14.2 (13.0-17.0) gm/dL Hct 41.3 (39.0-51.0) % MCV 103.0 H (80.0-100.0) fL MCH 35.4 H (27.0-34.0) pg MCHC 34.4 (32.0-36.0) % RDW 15.5 (11.6-17.2) % Plt Count 359 (150-450) th/mm3 MPV 7.7 (7.0-11.0) fL Neut % (Auto) 58.3 (16.0-70.0) % Lymph % (Auto) 30.2 (9.0-44.0) % [place] % (Auto) 10.9 H (0.0-8.0) % Eos % (Auto) 0.2 (0.0-4.0) % Baso % (Auto) 0.4 (0.0-2.0) % Neut # (Auto) 6.7 (1.8-7.7) th/mm3 Lymph # (Auto) 3.5 (1.0-4.8) th/mm3 [place] # (Auto) 1.3 H (0.0-0.9) th/mm3 Eos # (Auto) 0.0 (0.0-0.4) th/mm3 Baso # (Auto) 0.0 (0.0-0.2) th/mm3 WBC Differential . Differential Comment Auto diff final Sodium 129 L (136-145) meq/L Potassium 2.3 L* (3.5-5.1) meq/L Chloride 77 L (98-107) meq/L Carbon Dioxide 24.7 (21.0-32.0) meq/L Anion Gap 27 H (5-15) meq/L BUN 14 (7-18) mg/dL Creatinine 2.00 H (0.60-1.30) mg/dL Estimated GFR 39 L (>89) mL/min POC Glucose (68-110) mg/dl Random Glucose 121 H (74-106) mg/dL Lactic Acid (0.4-2.0) mmol/L Calcium 8.4 L (8.5-10.1) mg/dL Prot Corrected Calcium (8.5-10.1) mg/dL Phosphorus (2.5-4.9) mg/dL Magnesium 1.0 L (1.5-2.5) mg/dL Total Bilirubin 1.4 H (0.2-1.0) mg/dL AST 205 H (15-37) U/L ALT 66 (12-78) U/L Alkaline Phosphatase 134 H (45-117) U/L Ammonia (11-32) mcmol/L Total Protein 7.8 (6.4-8.2) g/dL Albumin 4.5 (3.4-5.0) g/dL Triglycerides (42-150) mg/dL Cholesterol (120-200) mg/dL LDL Cholesterol, Calc (0-99) mg/dL HDL Cholesterol (40.0-60.0) mg/dL Cholesterol/HDL Ratio Ratio Amylase (25-115) U/L Lipase 720 H Cancelled (73-393) U/L TSH (0.358-3.740) uIU/mL Urine Color (Yellw/Straw) Urine Clarity (Clear) Urine pH (5.0-8.5) Ur Specific [place] (1.002-1.035) Urine Protein (Neg-Trace) mg/dL Urine Glucose (UA) (Negative) mg/dL Urine Ketones (Negative) mg/dL Urine Occult Blood (Negative) Urine Nitrate (Negative) Urine Bilirubin (Negative) Urine Urobilinogen (Less than 2) mg/dL Ur Leukocyte Esterase (Negative) Urine WBC (0-5) /hpf Ur Squamous Epith Cells (0-5) /hpf Hyaline Casts (0-3) /lpf Urine Mucus (Occasional) /lpf Urine Sperm (None) /hpf Micro UA Comment Urine Culture Comments Nasal Screen MRSA (PCR) (Negative) Urine Opiates Screen (Neg) Ur Barbiturates Screen (Neg) Ur Amphetamines Screen (Neg) U Benzodiazepines Scrn (Neg) Urine Cocaine Screen (Neg) U Cannabinoids Screen (Neg) Serum Alcohol Less than 3 (0-5) mg/dL 12/06/17 12/06/17 12/06/17 Range/Units 17:30 17:30 17:34 WBC (4.0-11.0) th/mm3 RBC (4.50-5.90) mil/mm3 Hgb (13.0-17.0) gm/dL Hct (39.0-51.0) % MCV (80.0-100.0) fL MCH (27.0-34.0) pg MCHC (32.0-36.0) % RDW (11.6-17.2) % Plt Count (150-450) th/mm3 MPV (7.0-11.0) fL Neut % (Auto) (16.0-70.0) % Lymph % (Auto) (9.0-44.0) % [place] % (Auto) (0.0-8.0) % Eos % (Auto) (0.0-4.0) % Baso % (Auto) (0.0-2.0) % Neut # (Auto) (1.8-7.7) th/mm3 Lymph # (Auto) (1.0-4.8) th/mm3 [place] # (Auto) (0.0-0.9) th/mm3 Eos # (Auto) (0.0-0.4) th/mm3 Baso # (Auto) (0.0-0.2) th/mm3 WBC Differential Differential Comment Sodium (136-145) meq/L Potassium (3.5-5.1) meq/L Chloride (98-107) meq/L Carbon Dioxide (21.0-32.0) meq/L Anion Gap (5-15) meq/L BUN (7-18) mg/dL Creatinine (0.60-1.30) mg/dL Estimated GFR (>89) mL/min POC Glucose 102 (68-110) mg/dl Random Glucose (74-106) mg/dL Lactic Acid (0.4-2.0) mmol/L Calcium (8.5-10.1) mg/dL Prot Corrected Calcium (8.5-10.1) mg/dL Phosphorus (2.5-4.9) mg/dL Magnesium (1.5-2.5) mg/dL Total Bilirubin (0.2-1.0) mg/dL AST (15-37) U/L ALT (12-78) U/L Alkaline Phosphatase (45-117) U/L Ammonia (11-32) mcmol/L Total Protein (6.4-8.2) g/dL Albumin (3.4-5.0) g/dL Triglycerides (42-150) mg/dL Cholesterol (120-200) mg/dL LDL Cholesterol, Calc (0-99) mg/dL HDL Cholesterol (40.0-60.0) mg/dL Cholesterol/HDL Ratio Ratio Amylase (25-115) U/L Lipase (73-393) U/L TSH (0.358-3.740) uIU/mL Urine Color [place] (Yellw/Straw) Urine Clarity Hazy H (Clear) Urine pH 8.0 (5.0-8.5) Ur Specific [place] 1.025 (1.002-1.035) Urine Protein 100 H (Neg-Trace) mg/dL Urine Glucose (UA) Negative (Negative) mg/dL Urine Ketones Trace (Negative) mg/dL Urine Occult Blood Negative (Negative) Urine Nitrate Negative (Negative) Urine Bilirubin Negative (Negative) Urine Urobilinogen 2.0 H (Less than 2) mg/dL Ur Leukocyte Esterase Negative (Negative) Urine WBC 28 H (0-5) /hpf Ur Squamous Epith Cells 1 (0-5) /hpf Hyaline Casts 3 (0-3) /lpf Urine Mucus Few H (Occasional) /lpf Urine Sperm Occasional H (None) /hpf Micro UA Comment Culture indicated Urine Culture Comments Culture indicated Nasal Screen MRSA (PCR) (Negative) Urine Opiates Screen Neg (Neg) Ur Barbiturates Screen Neg (Neg) Ur Amphetamines Screen Neg (Neg) U Benzodiazepines Scrn Pos (Neg) Urine Cocaine Screen Neg (Neg) U Cannabinoids Screen Pos (Neg) Serum Alcohol (0-5) mg/dL 12/06/17 12/06/17 12/06/17 Range/Units 20:00 20:35 23:18 WBC (4.0-11.0) th/mm3 RBC (4.50-5.90) mil/mm3 Hgb (13.0-17.0) gm/dL Hct (39.0-51.0) % MCV (80.0-100.0) fL MCH (27.0-34.0) pg MCHC (32.0-36.0) % RDW (11.6-17.2) % Plt Count (150-450) th/mm3 MPV (7.0-11.0) fL Neut % (Auto) (16.0-70.0) % Lymph % (Auto) (9.0-44.0) % [place] % (Auto) (0.0-8.0) % Eos % (Auto) (0.0-4.0) % Baso % (Auto) (0.0-2.0) % Neut # (Auto) (1.8-7.7) th/mm3 Lymph # (Auto) (1.0-4.8) th/mm3 [place] # (Auto) (0.0-0.9) th/mm3 Eos # (Auto) (0.0-0.4) th/mm3 Baso # (Auto) (0.0-0.2) th/mm3 WBC Differential Differential Comment Sodium (136-145) meq/L Potassium (3.5-5.1) meq/L Chloride (98-107) meq/L Carbon Dioxide (21.0-32.0) meq/L Anion Gap (5-15) meq/L BUN (7-18) mg/dL Creatinine (0.60-1.30) mg/dL Estimated GFR (>89) mL/min POC Glucose 252 H (68-110) mg/dl Random Glucose 85 (74-106) mg/dL Lactic Acid (0.4-2.0) mmol/L Calcium (8.5-10.1) mg/dL Prot Corrected Calcium (8.5-10.1) mg/dL Phosphorus (2.5-4.9) mg/dL Magnesium (1.5-2.5) mg/dL Total Bilirubin (0.2-1.0) mg/dL AST (15-37) U/L ALT (12-78) U/L Alkaline Phosphatase (45-117) U/L Ammonia (11-32) mcmol/L Total Protein (6.4-8.2) g/dL Albumin (3.4-5.0) g/dL Triglycerides (42-150) mg/dL Cholesterol (120-200) mg/dL LDL Cholesterol, Calc (0-99) mg/dL HDL Cholesterol (40.0-60.0) mg/dL Cholesterol/HDL Ratio Ratio Amylase (25-115) U/L Lipase (73-393) U/L TSH (0.358-3.740) uIU/mL Urine Color (Yellw/Straw) Urine Clarity (Clear) Urine pH (5.0-8.5) Ur Specific [place] (1.002-1.035) Urine Protein (Neg-Trace) mg/dL Urine Glucose (UA) (Negative) mg/dL Urine Ketones (Negative) mg/dL Urine Occult Blood (Negative) Urine Nitrate (Negative) Urine Bilirubin (Negative) Urine Urobilinogen (Less than 2) mg/dL Ur Leukocyte Esterase (Negative) Urine WBC (0-5) /hpf Ur Squamous Epith Cells (0-5) /hpf Hyaline Casts (0-3) /lpf Urine Mucus (Occasional) /lpf Urine Sperm (None) /hpf Micro UA Comment Urine Culture Comments Nasal Screen MRSA (PCR) Not detected (Negative) Urine Opiates Screen (Neg) Ur Barbiturates Screen (Neg) Ur Amphetamines Screen (Neg) U Benzodiazepines Scrn (Neg) Urine Cocaine Screen (Neg) U Cannabinoids Screen (Neg) Serum Alcohol (0-5) mg/dL 12/07/17 12/07/17 12/07/17 Range/Units 06:12 06:33 06:33 WBC 10.0 (4.0-11.0) th/mm3 RBC 3.28 L (4.50-5.90) mil/mm3 Hgb 11.9 L D (13.0-17.0) gm/dL Hct 33.4 L (39.0-51.0) % MCV 101.8 H (80.0-100.0) fL MCH 36.4 H (27.0-34.0) pg MCHC 35.7 (32.0-36.0) % RDW 15.5 (11.6-17.2) % Plt Count 242 D (150-450) th/mm3 MPV 7.3 (7.0-11.0) fL Neut % (Auto) 69.6 (16.0-70.0) % Lymph % (Auto) 23.7 (9.0-44.0) % [place] % (Auto) 5.0 (0.0-8.0) % Eos % (Auto) 0.6 (0.0-4.0) % Baso % (Auto) 1.1 (0.0-2.0) % Neut # (Auto) 7.0 (1.8-7.7) th/mm3 Lymph # (Auto) 2.4 (1.0-4.8) th/mm3 [place] # (Auto) 0.5 (0.0-0.9) th/mm3 Eos # (Auto) 0.1 (0.0-0.4) th/mm3 Baso # (Auto) 0.1 (0.0-0.2) th/mm3 WBC Differential . Differential Comment Auto diff final Sodium 137 (136-145) meq/L Potassium 2.8 L* (3.5-5.1) meq/L Chloride 97 L D (98-107) meq/L Carbon Dioxide 32.9 H (21.0-32.0) meq/L Anion Gap 7 (5-15) meq/L BUN 11 (7-18) mg/dL Creatinine 1.30 (0.60-1.30) mg/dL Estimated GFR 64 L (>89) mL/min POC Glucose 91 (68-110) mg/dl Random Glucose 90 (74-106) mg/dL Lactic Acid (0.4-2.0) mmol/L Calcium 6.8 L* D (8.5-10.1) mg/dL Prot Corrected Calcium 7.5 L (8.5-10.1) mg/dL Phosphorus 0.8 L (2.5-4.9) mg/dL Magnesium 2.6 H D (1.5-2.5) mg/dL Total Bilirubin 0.9 (0.2-1.0) mg/dL AST 185 H (15-37) U/L ALT 58 (12-78) U/L Alkaline Phosphatase 118 H (45-117) U/L Ammonia (11-32) mcmol/L Total Protein 5.7 L D (6.4-8.2) g/dL Albumin 3.4 D (3.4-5.0) g/dL Triglycerides 115 (42-150) mg/dL Cholesterol 152 (120-200) mg/dL LDL Cholesterol, Calc 68 (0-99) mg/dL HDL Cholesterol 60.9 H (40.0-60.0) mg/dL Cholesterol/HDL Ratio 2.49 Ratio Amylase 138 H (25-115) U/L Lipase 756 H (73-393) U/L TSH 2.220 (0.358-3.740) uIU/mL Urine Color (Yellw/Straw) Urine Clarity (Clear) Urine pH (5.0-8.5) Ur Specific [place] (1.002-1.035) Urine Protein (Neg-Trace) mg/dL Urine Glucose (UA) (Negative) mg/dL Urine Ketones (Negative) mg/dL Urine Occult Blood (Negative) Urine Nitrate (Negative) Urine Bilirubin (Negative) Urine Urobilinogen (Less than 2) mg/dL Ur Leukocyte Esterase (Negative) Urine WBC (0-5) /hpf Ur Squamous Epith Cells (0-5) /hpf Hyaline Casts (0-3) /lpf Urine Mucus (Occasional) /lpf Urine Sperm (None) /hpf Micro UA Comment Urine Culture Comments Nasal Screen MRSA (PCR) (Negative) Urine Opiates Screen (Neg) Ur Barbiturates Screen (Neg) Ur Amphetamines Screen (Neg) U Benzodiazepines Scrn (Neg) Urine Cocaine Screen (Neg) U Cannabinoids Screen (Neg) Serum Alcohol (0-5) mg/dL 12/07/17 12/07/17 12/07/17 Range/Units 06:33 06:33 09:58 WBC (4.0-11.0) th/mm3 RBC (4.50-5.90) mil/mm3 Hgb (13.0-17.0) gm/dL Hct (39.0-51.0) % MCV (80.0-100.0) fL MCH (27.0-34.0) pg MCHC (32.0-36.0) % RDW (11.6-17.2) % Plt Count (150-450) th/mm3 MPV (7.0-11.0) fL Neut % (Auto) (16.0-70.0) % Lymph % (Auto) (9.0-44.0) % [place] % (Auto) (0.0-8.0) % Eos % (Auto) (0.0-4.0) % Baso % (Auto) (0.0-2.0) % Neut # (Auto) (1.8-7.7) th/mm3 Lymph # (Auto) (1.0-4.8) th/mm3 [place] # (Auto) (0.0-0.9) th/mm3 Eos # (Auto) (0.0-0.4) th/mm3 Baso # (Auto) (0.0-0.2) th/mm3 WBC Differential Differential Comment Sodium (136-145) meq/L Potassium 2.5 L* (3.5-5.1) meq/L Chloride (98-107) meq/L Carbon Dioxide (21.0-32.0) meq/L Anion Gap (5-15) meq/L BUN (7-18) mg/dL Creatinine (0.60-1.30) mg/dL Estimated GFR (>89) mL/min POC Glucose (68-110) mg/dl Random Glucose (74-106) mg/dL Lactic Acid 1.7 (0.4-2.0) mmol/L Calcium (8.5-10.1) mg/dL Prot Corrected Calcium (8.5-10.1) mg/dL Phosphorus (2.5-4.9) mg/dL Magnesium 2.1 (1.5-2.5) mg/dL Total Bilirubin (0.2-1.0) mg/dL AST (15-37) U/L ALT (12-78) U/L Alkaline Phosphatase (45-117) U/L Ammonia 31 (11-32) mcmol/L Total Protein (6.4-8.2) g/dL Albumin (3.4-5.0) g/dL Triglycerides (42-150) mg/dL Cholesterol (120-200) mg/dL LDL Cholesterol, Calc (0-99) mg/dL HDL Cholesterol (40.0-60.0) mg/dL Cholesterol/HDL Ratio Ratio Amylase (25-115) U/L Lipase (73-393) U/L TSH (0.358-3.740) uIU/mL Urine Color (Yellw/Straw) Urine Clarity (Clear) Urine pH (5.0-8.5) Ur Specific [place] (1.002-1.035) Urine Protein (Neg-Trace) mg/dL Urine Glucose (UA) (Negative) mg/dL Urine Ketones (Negative) mg/dL Urine Occult Blood (Negative) Urine Nitrate (Negative) Urine Bilirubin (Negative) Urine Urobilinogen (Less than 2) mg/dL Ur Leukocyte Esterase (Negative) Urine WBC (0-5) /hpf Ur Squamous Epith Cells (0-5) /hpf Hyaline Casts (0-3) /lpf Urine Mucus (Occasional) /lpf Urine Sperm (None) /hpf Micro UA Comment Urine Culture Comments Nasal Screen MRSA (PCR) (Negative) Urine Opiates Screen (Neg) Ur Barbiturates Screen (Neg) Ur Amphetamines Screen (Neg) U Benzodiazepines Scrn (Neg) Urine Cocaine Screen (Neg) U Cannabinoids Screen (Neg) Serum Alcohol (0-5) mg/dL Imaging Data Radiologist's impression: ITS Impressions Abdomen/Pelvis CT 12/06/17 00:00 CONCLUSION: 1. No obstruction or acute inflammatory changes are demonstrated. 2. Enlarged and mild fatty infiltrated liver again noted. 3. No definite acute pancreatitis changes. Head CT 12/06/17 16:38 CONCLUSION: Negative exam. No change from prior. Chest X-Ray 12/07/17 06:00 CONCLUSION: 1. No acute abnormality or significant interval change. Discharge Plan Discharge Disposition Patient Disposition: 30 Still Patient Discharge Condition Condition: Stable Discharge Details Diagnosis: Seizures, Alcohol abuse, Alcohol withdrawal, Acute dehydration, Nausea & vomiting Physicians Team ED Provider: Marian Cee Primary Care Provider: Jin Juarez V Attending Provider: Pamela Allen Other Providers: Philip Ayala Status ED Status: Left Department Discharge Information Discharge Date/Time: 12/06/17 18:52
[2017-12-06 17:10] LABS: Baso % (Auto) 0.4 % (0.0-2.0); Eos % (Auto) 0.2 % (0.0-4.0); Hematocrit 41.3 % (39.0-51.0); Hemoglobin 14.2 gm/dL (13.0-17.0); Lymph # (Auto) 3.5 th/mm3 (1.0-4.8); Lymph % (Auto) 30.2 % (9.0-44.0); Mean Corpuscular HGB Conc 34.4 % (32.0-36.0); Mean Corpuscular Hemoglobin 35.4 pg (27.0-34.0); Mean Platelet Volume 7.7 fL (7.0-11.0); Mono # (Auto) 1.3 th/mm3 (0.0-0.9); Mono % (Auto) 10.9 % (0.0-8.0); Neut # (Auto) 6.7 th/mm3 (1.8-7.7); Neut % (Auto) 58.3 % (16.0-70.0); Platelet Count 359 th/mm3 (150-450); Red Blood Count 4.01 mil/mm3 (4.50-5.90); Red Cell Distribution Width 15.5 % (11.6-17.2); White Blood Count 11.6 th/mm3 (4.0-11.0)
[2017-12-06] MEDS ORDERED: Bisacodyl 10 MG Supp RECTAL PRN (17:29)
[2017-12-06] MEDS ORDERED: levETIRAcetam 1000mg/100mL Inj 100 ML IV.SIG ONE (17:30)
[2017-12-06] MEDS ORDERED: LORazepam 1 MG Tablet PO PRN (17:31)
[2017-12-06] MEDS ORDERED: Haloperidol Inj 5 MG/ML Ampul IV.PUSH PRN (17:31)
[2017-12-06] MEDS ORDERED: Potassium Chloride 25 MEQ Effervescent Tablet PO PRN (17:32)
[2017-12-06] MEDS ORDERED: Potassium Chlor 40 mEq Premix 40 MEQ/100 ML PIGGYBACK IV.SIG PRN ×2 (17:32)
[2017-12-06] MEDS ORDERED: Magnesium Oxide 400 MG Tablet PO PRN (17:32)
[2017-12-06] MEDS ORDERED: Potassium Phosphate Inj 30 MMOL in Sodium Chlor 0.9% Inj 250 ML IV.SIG PRN (17:32)
[2017-12-06] MEDS ORDERED: Sodium Phosphate Inj 30 MMOL in Sodium Chlor 0.9% Inj 250 ML IV.SIG PRN (17:32)
[2017-12-06] MEDS ORDERED: Potassium Chlor 20 mEq Premix 20 MEQ/100 ML PIGGYBACK IV.SIG PRN (17:32)
[2017-12-06] MEDS ORDERED: Magnesium Sulfate Inj 2 GM in Sodium Chlor 0.9% Inj 96 ML IV.SIG PRN (17:32)
[2017-12-06] MEDS ORDERED: Magnesium Sulfate Inj 4 GM in Sodium Chlor 0.9% Inj 92 ML IV.SIG PRN (17:32)
[2017-12-06] MEDS ORDERED: Potassium Phosphate 500 MG Soluble Tablet PO PRN ×2 (17:32)
--- NOTE | 2017-12-06 17:37 | CT ---
EXAM DATE: 12/06/2017 5:31 PM EDT AGE/SEX: 32 years / Male INDICATIONS: Patient had multiple seizures, fell and hit head today. CLINICAL DATA: This is the patient's initial encounter. Patient reports that signs and symptoms have been present for 1 day and indicates a pain score of 9/10. MEDICAL/SURGICAL HISTORY: Pancreatitis. Seizures. None. RADIATION DOSE: 56.35 CTDI (mGy) COMPARISON: [facility] [place], CT BRAIN W/O CONTRAST, 11/05/2016. . TECHNIQUE: CT of the head without contrast. Using automated exposure control and adjustment of the mA and/or kV according to patient size, radiation dose was kept as low as reasonably achievable to ob tain optimal diagnostic quality images. DICOM format image data is available electronically for revi ew and comparison. FINDINGS: Cerebrum: The ventricles are normal for age. No evidence of midline shift, mass lesion, hemorrhage or acute infarction. No extraaxial fluid collections are seen. Posterior Fossa: The cerebellum and brainstem are intact. The 4th ventricle is midline. The cerebe llopontine angle is unremarkable. Extracranial: The visualized portion of the orbits is intact. Skull: The calvaria is intact. No evidence of skull fracture. CONCLUSION: Negative exam. No change from prior. Electronically signed by: Daniel Reddy MD 12/06/2017 5:36 PM EDT
[2017-12-06 17:55] LABS: Alanine Aminotransferase 66 U/L (12-78); Albumin 4.5 g/dL (3.4-5.0); Alkaline Phosphatase 134 U/L (45-117); Anion Gap 27 meq/L (5-15); Aspartate Aminotransferase 205 U/L (15-37); Blood Urea Nitrogen 14 mg/dL (7-18); Calcium 8.4 mg/dL (8.5-10.1); Carbon Dioxide 24.7 meq/L (21.0-32.0); Chloride 77 meq/L (98-107); Glomerular Filtration Rate 39 mL/min (>89); Glucose,Random 121 mg/dL (74-106); Lipase 720 U/L (73-393); Sodium 129 meq/L (136-145); Total Protein 7.8 g/dL (6.4-8.2)
[2017-12-06 18:00] LABS: Potassium 2.3 meq/L (3.5-5.1)
[2017-12-06 18:10] LABS: Amphetamine Screen,Urine Neg (Neg); Barbiturate Screen,Urine Neg (Neg); Cannabinoid Screen,Urine Pos (Neg); Cocaine Screen,Urine Neg (Neg)
[2017-12-06 18:14] LABS: Opiate Screen,Urine Neg (Neg)
--- NOTE | 2017-12-06 18:19 | P.HPCC ---
History of Present Illness Service: Critical care medicine Primary Care Physician: Jin Juarez MD Chief Complaint: EtOH/seizure History of Present Illness: This is a 32-year-old male. Date of admission 12/06/2017. Past medical history includes seizure disorder which he takes levetiracetam 1000 mg twice daily. He has history of heavy alcohol use drinks 5-6 drinks daily. Stop drinking 3 days ago. This is likely septic due to elevated lipase/ pancreatitis. Since that time he is unable to take his levetiracetam or quetiapine or Lorazepam today, his mother witnessed a generalized tonic-clonic seizure lasting approximately 1 minute just prior to arrival followed by a post- ictal period of 15-20 minutes. The patient states that he thinks he had 2 additional unwitnessed seizures today as well. Admits to diaphoresis, visual disturbance ("the lights look hazy"), anxiety, tremor, headache, and nausea. History of pancreatitis. According to records, patient had 2 witnessed seizures in the ED which received lorazepam 2 mg IM 1 was loaded with levetiracetam 1000 mg 1. Laboratory significant for leukocytosis of 11.6. Macrocytosis. Potassium 2.3. Magnesium 1.0. CT brain revealed no acute intracranial findings. We are asked to admit. Inpatient Certification: I certify that the inpatient services were ordered in accordance with Medicare regulations governing the order. This includes certification that hospital inpatient services are reasonable and necessary and in the case of services not specified as inpatient-only under 42 CFR 419.22(n), that they are appropriately provided as inpatient services in accordance to with the 2-midnight benchmark under 43 CFR 412.3(e) Estimated Total Length of Stay (Days): 3 Plans for Post Hospital Care: Not yet determined Review of Systems unobtainable due to mental status PMFSH - History History Provided By: Patient, Family Member - Medical History Medical History: Medical History (Last Reviewed 12/06/17 @ 16:48 by Marian Cee DO) Alcohol abuse Hernia Pancreatitis Seizures - Tobacco History Second Hand Smoke Exposure: No Smoking Status: Never smoker - Alcohol History How Often Do You Have a Drink Containing Alcohol: 4 or more times a week - Substance Use History Substance History: Active Abuse - Travel History History of Recent Travel: No Recent Travel in the [place] Within the Last 8 Weeks: No Recent Travel Out of the Country Within the Last 8 Weeks: No - Immunization History Tetanus Immunization: Unable to Assess Hx Influenza Vaccine This Season: Unable to Assess Medications and Allergies Active Medications: Active Medications Al Hydroxide/Mg Hydroxide (Milk Of Balta Liq) 30 ml PO Q12H PRN PRN Reason: Mild Constipation Bisacodyl (Dulcolax Supp) 10 mg RECTAL DAILY PRN PRN Reason: SEVERE CONSITIPATION Chlordiazepoxide (Librium) 25 mg PO Q6H GERMAINE Chlorhexidine Gluconate (Chlorhexidine 2% Cloth) 3 pack TOPICAL DAILY@0400 GERMAINE Stop: 12/12/17 03:59 Chlorhexidine Gluconate (Chlorhexidine 2% Cloth) 3 pack TOPICAL DAILY@0400 PRN PRN Reason: Extra cloth needed Stop: 12/12/17 03:59 Famotidine (Pepcid) 20 mg PO BID GERMAINE Famotidine (Pepcid Pf Inj) 20 mg IV.PUSH Q12HR GERMAINE Flumazenil (Romazecon Inj) 0.2 mg IV.PUSH Q1M PRN PRN Reason: OVERSEDATION Haloperidol Lactate (Haldol Inj) 1 mg IV.PUSH Q15M PRN PRN Reason: for severe agitation Potassium Chloride/Sodium Chloride (Ns + Kcl 20 Meq Inj) 1,000 mls @ 100 mls/ hr IV.CONT .Q10H GERMAINE Magnesium Sulfate Inj 4 gm/ (Sodium Chloride) 100 mls @ 50 mls/hr IV.SIG UNSCH PRN PRN Reason: For Magnesium 0.9 - 1.1 mg/dL Magnesium Sulfate Inj 2 gm/ (Sodium Chloride) 100 mls @ 50 mls/hr IV.SIG UNSCH PRN PRN Reason: For Magnesium 1.2 - 1.6 mg/dL Potassium Chloride (Kcl 40 Meq Premix Inj) 40 meq in 100 mls @ 25 mls/hr IV.SIG Q2H PRN PRN Reason: For Potassium 2.8 - 3.2 mEq/L Potassium Chloride (Kcl 20 Meq Premix Inj) 20 meq in 100 mls @ 50 mls/hr IV.SIG Q2H PRN PRN Reason: For Potassium 3.3 - 3.5 mEq/L Potassium Chloride (Kcl 40 Meq Premix Inj) 40 meq in 100 mls @ 25 mls/hr IV.SIG UNSCH PRN PRN Reason: For Potassium 3.3 - 3.5 mEq/L Potassium Chloride (Kcl 20 Meq Premix Inj) 20 meq in 100 mls @ 50 mls/hr IV.SIG Q2H PRN PRN Reason: For Potassium 2.8 - 3.2 mEq/L Potassium Phosphate 30 mmol/ (Sodium Chloride) 260 mls @ 42 mls/hr IV.SIG UNSCH PRN PRN Reason: SEE LABEL COMMENTS Sodium Phosphate 30 mmol/ (Sodium Chloride) 260 mls @ 42 mls/hr IV.SIG UNSCH PRN PRN Reason: For Phosphorus < 2.5 mg/dL Multivitamins 10 ml/ Thiamine HCl 100 mg/ Folic Acid 1 mg/Sodium Chloride 511.2 mls @ 125 mls/hr IV.SIG Q24H GERMAINE Stop: 12/08/17 22:06 Lactulose (Lactulose Liq) 30 ml PO DAILY PRN PRN Reason: SEVERE CONSITIPATION Levetiracetam (Keppra Inj) 1,000 mg IV.SIG Q12HR GERMAINE Lorazepam (Ativan Inj) 2 mg IV.PUSH Q1H PRN PRN Reason: SEIZURES Lorazepam (Ativan) 1 mg PO Q4H PRN PRN Reason: for CIWA 8-10 Lorazepam (Ativan) 2 mg PO Q2H PRN PRN Reason: for CIWA 11-14 Lorazepam (Ativan Inj) 2 mg IV.PUSH Q2H PRN PRN Reason: for CIWA 11-14 Lorazepam (Ativan Inj) 2 mg IV.PUSH Q1H PRN PRN Reason: for CIWA 15-20 Lorazepam (Ativan Inj) 2 mg IV.PUSH Q15M PRN PRN Reason: for CIWA > 20 Lorazepam (Ativan Inj) 1 mg IV.PUSH Q4H PRN PRN Reason: for CIWA 8-10 Magnesium Oxide (Mag-Ox) 800 mg PO UNSCH PRN PRN Reason: For Magnesium 1.2 - 1.6 mg/dL Non-Formulary Medication (Seroquel) 200 mg PO HS GERMAINE Potassium Bicarb/Potassium Chloride (K-Lyte Cl Eff) 50 meq PO UNSCH PRN PRN Reason: For Potassium 3.3 - 3.5 mEq/L Potassium Phosphate (K-Phos Original) 2,000 mg PO Q4H PRN PRN Reason: Phosphorus Less Than 2.5 mg/dL Potassium Phosphate (K-Phos Original) 2,000 mg PO UNSCH PRN PRN Reason: SEE LABEL COMMENTS Senna/Docusate Sodium (Hiral-Colace) 1 tab PO BID GERMAINE Sennosides (Senokot) 17.2 mg PO Q12H PRN PRN Reason: Moderate Constipation Sodium Chloride (Ns Flush) 2 ml IV.FLUSH PRN PRN PRN Reason: FLUSH AFTER USING IV ACCESS Sodium Chloride (Ns Flush) 2 ml IV.FLUSH BID GERMAINE Sodium Chloride (Ns Flush) 2 ml IV.FLUSH PRN PRN PRN Reason: FLUSH AFTER USING IV ACCESS Allergies Allergy/AdvReac Type Severity Reaction Status Date / Time Sulfa (Sulfonamide Allergy Severe hives Verified 10/11/17 07:56 Antibiotics) Home Medications Medication Instructions Recorded Confirmed Type Seroquel 200 mg PO HS 12/06/17 12/06/17 History lorazepam [Ativan] 0.5 mg PO TID PRN 12/06/17 12/06/17 History Results - Labs CBC & Chem 7: 12/06/17 16:45 12/06/17 16:45 Labs: Short CBC 12/06/17 Range/Units 16:45 WBC 11.6 H (4.0-11.0) th/mm3 Hgb 14.2 (13.0-17.0) gm/dL Hct 41.3 (39.0-51.0) % Plt Count 359 (150-450) th/mm3 BMP 12/06/17 16:45 Sodium 129 L Potassium 2.3 L* Chloride 77 L Carbon Dioxide 24.7 BUN 14 Creatinine 2.00 H Calcium 8.4 L Liver Function 12/06/17 Range/Units 16:45 Total Bilirubin 1.4 H (0.2-1.0) mg/dL AST 205 H (15-37) U/L ALT 66 (12-78) U/L Alkaline Phosphatase 134 H (45-117) U/L Albumin 4.5 (3.4-5.0) g/dL - Imaging Impressions Head CT 12/06/17 16:38 CONCLUSION: Negative exam. No change from prior. Exam Vital signs: Vital Signs 12/06/17 14:49 12/06/17 16:38 12/06/17 16:49 Temperature 99.6 F Pulse Rate 110 H 107 H Respiratory Rate 20 22 Blood Pressure 147/86 H 162/89 H Pulse Oximetry 97 99 99 12/06/17 17:44 12/06/17 18:10 Temperature Pulse Rate 92 H Respiratory Rate 18 Blood Pressure 136/85 Pulse Oximetry 100 99 Intake & Output 12/05/17 12/06/17 12/06/17 18:59 06:59 18:59 Weight 79.379 kg - Constitutional no acute distress, average body habitus, cooperative - Routine HEENT Exam Head: Present: normocephalic, atraumatic Eye: Present: EOMI, PERRL, conjunctivae pink ENT: Present: mucous membranes moist - Routine Neck Exam Present: supple, full ROM - Routine Respiratory Exam Present: CTA bilaterally - Routine Cardiovascular Exam Present: RRR, S1, S2, tachycardia - Routine Abdominal Exam Present: soft, normoactive bowel sounds - Routine Extremities Exam Present: full ROM, pulses intact, normal capillary refill - Routine Skin Exam Present: intact, warm - Routine Neurological Exam Present: alert, oriented X3, CN II-XII intact, tremors Caprini VTE Risk Assessment Caprini VTE Risk Assessment: No/Low Risk (score <= 1) Caprini Risk Assessment Model: Point Value = 1 Point Value = 2 Point Value = 3 Point Value = 5 Age 41-60 Minor surgery BMI > 25 kg/m2 Swollen legs Varicose veins or History of unexplained or recurrent spontaneous Oral contraceptives or hormone replacement Sepsis (< 1 month) Serious lung disease, including pneumonia (< 1 month) Abnormal pulmonary function Acute myocardial infarction Congestive heart failure (< 1 month) History of inflammatory bowel disease Medical patient at bed rest Age 61-74 Arthroscopic surgery Major open surgery (> 45 min) Laparoscopic surgery (> 45 min) Malignancy Confined to bed (> 72 hours) Immobilizing plaster cast Central venous access Age >= 75 History of VTE Family history of VTE Factor V Leiden Prothrombin [id number] Lupus anticoagulant Anticardiolipin antibodies Elevated serum homocysteine Heparin-induced thrombocytopenia Other congenital or acquired thrombophilia Stroke (< 1 month) Elective arthroplasty Hip, pelvis, or leg fracture Acute spinal cord injury (< 1 month) Prophylaxis Regimen: Total Risk Factor Score Risk Level Prophylaxis Regimen 0-1 Low Early ambulation 2 Moderate Order ONE of the following: *Sequential Compression Device (SCD) *Heparin 5000 units SQ BID 3-4 Higher Order ONE of the following medications: *Heparin 5000 units SQ TID *Enoxaparin/Lovenox 40 mg SQ daily (WT < 150 kg, CrCl > 30 mL/min) *Enoxaparin/Lovenox 30 mg SQ daily (WT < 150 kg, CrCl > 10-29 mL/min) *Enoxaparin/Lovenox 30 mg SQ BID (WT < 150 kg, CrCl > 30 mL/min) AND/OR *Sequential Compression Device (SCD) 5 or more Highest Order ONE of the following medications: *Heparin 5000 units SQ TID (Preferred with Epidurals) *Enoxaparin/Lovenox 40 mg SQ daily (WT < 150 kg, CrCl > 30 mL/min) *Enoxaparin/Lovenox 30 mg SQ daily (WT < 150 kg, CrCl > 10-29 mL/min) *Enoxaparin/Lovenox 30 mg SQ BID (WT < 150 kg, CrCl > 30 mL/min) AND *Sequential Compression Device (SCD) Assessment and Plan - Assessment and Plan Plan: Neuro/Psych: Seizure disorder NOS EtOH Depression/anxiety History of THC use 4 witnessed seizures in the ED. Seizure precaution Continue levetiracetam 1000 mg IV twice daily CIWA protocol initiated. On chlordiazepoxide 25 mg 4 times daily Vitamin bag including thiamine, multivitamin folate daily 3 days Continue Quetiapine 200 mg at night/home medication for depression/anxiety Holding lorazepam 0.5 mg 3 times daily/home medication while on chlordiazepoxide EEG ordered CV: Sinus tachycardia Currently on normal saline with 20 mEq of KCl at 100 cc an hour No indication for antihypertensives and/or vasopressors at the present time Follow-up on EKG Resp: History of tobaccoism 2- 3 cigarettes daily Nasal cannula to maintain saturations greater than equal to 92%. Currently on 3 L Incentive spirometry while awake Albuterol/ipratropium aerosols every 4 hours with albuterol aerosols every 2 hours as needed for dyspnea Follow-up on chest x-ray Tobacco cessation self evaluation will be provided when appropriate GI: Pancreatitis/acute likely secondary to EtOH History of gastroesophageal reflux disease Elevated AST Lipase was 720 Currently n.p.o. except for medications Check CT abdomen/pelvis without IV contrast Pantoprazole for GI prophylaxis Docusate sodium/senna 1 tablet twice daily for bowel regimen : No indication for Nance catheter Endo: Sliding scale insulin with aspart insulin with Accu-Cheks every 6 hours to maintain euglycemia/low regimen Check TSH Renal: Acute kidney injury Creatinine currently 2.0 Rule out hydronephrosis with CT abdomen/pelvis without IV contrast Urine eosinophils/sodium and creatinine pending Hydrate with normal saline with 20 mg of KCl at 100 cc an hour due to potassium of 2.3 Heme: Leukocytosis Macrocytosis Monitor CBC daily. Follow trends Check coags in a.m. No indication for transfusion of blood products at this time ID: Monitor for signs and symptomatology of infection MSK: PT evaluate and treat FEN: Hypopotassemia Hyponatremia Hypomagnesia All these electrolyte abnormalities are acute. ICU electrolyte replacement protocols been initiated. Recheck electrolytes in a.m. including phosphorus Currently normal saline with 20 mill cons of KCl at 100 cc an hour Access -Utilize peripheral IV. Central line if indicated Prophylaxis -GI -pantoprazole -DVT -SCD/heparin subcu Level 3 admission Code Status: Full code Discussed Condition With: No other family available. Patient. Care plan discussed and all questions answered.
[2017-12-06 18:24] LABS: Bilirubin,Urine Negative (Negative); Clarity,Urine Hazy (Clear); Color,Urine Amber (Yellw/Straw); Glucose,Urine (UA) Negative (Negative); Hyaline Casts,Urine 3 /lpf (0-3); Leukocyte Esterase,Urine Negative (Negative); Mucus,Urine Few /lpf (Occasional); Nitrite,Urine Negative (Negative); Specific Gravity,Urine 1.025 (1.002-1.035); Sperm,Urine Occasional /hpf; Squamous Epithelial Cell,Urine 1 /hpf (0-5)
[2017-12-06] MEDS ORDERED: Dextrose 50% in Water 50 ML Vial IV.PUSH PRN (18:32)
[2017-12-06] MEDS ORDERED: Pantoprazole Inj 40 MG Vial IV.PUSH SCH (19:00)
--- NOTE | 2017-12-06 20:28 | CT ---
EXAM DATE: 12/06/2017 8:20 PM EDT AGE/SEX: 32 years / Male INDICATIONS: Abdominal pain, nausea vomiting, diarrhea for three days. CLINICAL DATA: This is the patient's initial encounter. Patient reports that signs and symptoms have been present for 3 days and indicates a pain score of 4/10. MEDICAL/SURGICAL HISTORY: Pancreatitis. Hernia, seizures. None. RADIATION DOSE: 5.64 CTDI (mGy) COMPARISON: [facility] [place]EL[place] W/O CONTRAST, 10/11/2017. . TECHNIQUE: Multiple contiguous axial images were obtained through the abdomen. Images were obtained using multiple row detector helical technique. Using automated exposure control and adjustment of the mA and/or kV according to patient size, radiation dose was kept as low as reasonably achievable to o btain optimal diagnostic quality images. DICOM format image data is available electronically for rev iew and comparison. FINDINGS: Lower Lungs: The visualized lower lungs are clear. Liver: 21 cm craniocaudal and mild fatty infiltrated, similar to before. Spleen: Homogeneous density without enlargement. Pancreas: Unremarkable without mass or calcification. Kidneys: Normal in size and shape. No evidence of mass or hydronephrosis. Adrenal Glands: Unremarkable. Aorta: The aorta and proximal iliac vessels are grossly unremarkable without aneurysmal dilation. Bowel/Mesentery: The bowel loops are grossly unremarkable. The cecum and sigmoid colon have a normal configuration. Appendix well-visualized and normal. Abdominal Wall: Intact. Retroperitoneum: No evidence of adenopathy in the retrocrural, para-aortic, or deep pelvic regions. Bladder: Contours are smooth. Reproductive Organs: No abnormal masses or calcifications seen. Inguinal: The inguinal region is unremarkable without evidence of adenopathy. Bony Structures: No acute bony abnormality demonstrated. CONCLUSION: 1. No obstruction or acute inflammatory changes are demonstrated. 2. Enlarged and mild fatty infiltrated liver again noted. 3. No definite acute pancreatitis changes. Electronically signed by: Alejandro Lawson MD 12/06/2017 8:26 PM EDT
[2017-12-06] MEDS: Potassium Chlor 10 mEq Premix 10 MEQ/100 ML PIGGYBACK IV.SIG SCH ×2 (20:48→22:38)
[2017-12-06] MEDS: Mag Sulf 1 gm/100 ml Premix 100 ML IV.SIG SCH (20:49)
[2017-12-06] MEDS: chlordiazePOXIDE 25 MG Capsule PO SCH (20:50)
[2017-12-06] MEDS: Senna/Docusate Sodium 8.6/50 MG Tablet PO SCH (20:50)
[2017-12-06] MEDS ORDERED: Famotidine 20 MG Tablet PO SCH (21:00)
[2017-12-06] MEDS ORDERED: Famotidine PF Inj 20 MG/2 ML Vial IV.PUSH SCH (21:00)
--- NOTE | 2017-12-06 21:14 | ECG ---
Date Performed: 12/06/2017 Time Performed: 18:18:48 PTAGE: 32 years EKG: Sinus rhythm PROLONGED QT INTERVAL ABNORMAL ECG Compared to prior electrocardiogram, Nonspecific T-wave changes a re markedly improved. PREVIOUS TRACING : 11/05/2017 15.48 DOCTOR: Beny Lynch Interpretating Date/Time 12/06/2017 21:13:33
[2017-12-06] MEDS: Pantoprazole Inj 40 MG Vial IV.PUSH SCH (21:42)
[2017-12-06] MEDS: Multivitamin Inj 10 ML, Thiamine Inj 100 MG, Folic Acid Inj 1 MG in Sodium Chlor 0.9% I... IV.SIG SCH (21:42)
[2017-12-07] MEDS: Mag Sulf 1 gm/100 ml Premix 100 ML IV.SIG SCH ×4 (00:19→03:36)
[2017-12-07] MEDS: Potassium Chlor 10 mEq Premix 10 MEQ/100 ML PIGGYBACK IV.SIG SCH ×4 (00:19→04:37)
[2017-12-07] MEDS: Insulin NovoLOG Aspart Correctional Sugar Inj SQ SCH ×4 (00:20→17:29)
[2017-12-07] MEDS: chlordiazePOXIDE 25 MG Capsule PO SCH ×4 (01:59→20:38)
[2017-12-07] MEDS ORDERED: Mag Sulf 1 gm/100 ml Premix 100 ML IV.SIG SCH (02:00)
[2017-12-07] MEDS: Chlorhexidine Gluconate 2% 1 Pack (2 Cloths) TOPICAL SCH (03:37)
[2017-12-07] MEDS ORDERED: Chlorhexidine Gluconate 2% 1 Pack (2 Cloths) TOPICAL PRN (04:00)
--- NOTE | 2017-12-07 05:29 | XR ---
EXAM DATE: 12/07/2017 5:01 AM EDT AGE/SEX: 32 years / Male INDICATIONS: Shortness of breath. CLINICAL DATA: This is the patient's initial encounter. Patient reports that signs and symptoms have been present for 1 day and indicates a pain score of 0/10. MEDICAL/SURGICAL HISTORY: None. None. COMPARISON: [facility] – [place], CHEST SINGLE AP, 05/22/2016. . FINDINGS: No new focal pleural or parenchymal opacities. The cardiomediastinal contours are unremarkable. Osse ous structures are intact. CONCLUSION: 1. No acute abnormality or significant interval change. Electronically signed by: Naun Payne MD 12/07/2017 5:27 AM EDT
[2017-12-07 06:55] LABS: Baso # (Auto) 0.1 th/mm3 (0.0-0.2); Baso % (Auto) 1.1 % (0.0-2.0); Eos # (Auto) 0.1 th/mm3 (0.0-0.4); Eos % (Auto) 0.6 % (0.0-4.0); Hematocrit 33.4 % (39.0-51.0); Hemoglobin 11.9 gm/dL (13.0-17.0); Lymph # (Auto) 2.4 th/mm3 (1.0-4.8); Lymph % (Auto) 23.7 % (9.0-44.0); Mean Corpuscular HGB Conc 35.7 % (32.0-36.0); Mean Corpuscular Hemoglobin 36.4 pg (27.0-34.0); Mean Corpuscular Volume 101.8 fL (80.0-100.0); Mean Platelet Volume 7.3 fL (7.0-11.0); Mono # (Auto) 0.5 th/mm3 (0.0-0.9); Neut % (Auto) 69.6 % (16.0-70.0); Platelet Count 242 th/mm3 (150-450); Red Blood Count 3.28 mil/mm3 (4.50-5.90); Red Cell Distribution Width 15.5 % (11.6-17.2)
--- NOTE | 2017-12-07 07:22 | P.PNCC ---
Subjective Subjective Remarks/Hospital Course: This is a 32-year-old male. Date of admission 12/06/2017. Past medical history includes seizure disorder which he takes levetiracetam 1000 mg twice daily. He has history of heavy alcohol use drinks 5-6 drinks daily. Stop drinking 3 days ago. This is likely septic due to elevated lipase/ pancreatitis. Since that time he is unable to take his levetiracetam or quetiapine or Lorazepam today, his mother witnessed a generalized tonic-clonic seizure lasting approximately 1 minute just prior to arrival followed by a post- ictal period of 15-20 minutes. The patient states that he thinks he had 2 additional unwitnessed seizures today as well. Admits to diaphoresis, visual disturbance ("the lights look hazy"), anxiety, tremor, headache, and nausea. History of pancreatitis. According to records, patient had 2 witnessed seizures in the ED which received lorazepam 2 mg IM 1 was loaded with levetiracetam 1000 mg 1. Laboratory significant for leukocytosis of 11.6. Macrocytosis. Potassium 2.3. Magnesium 1.0. CT brain revealed no acute intracranial findings. We are asked to admit. SUBJ 12/07: Lying comfortably in bed no further seizures after admission. Feels better do not feel like he is withdrawing from alcohol. Has decided to quit drinking Objective Vital Signs / I&O: Vital Signs 12/06/17 14:49 12/06/17 16:38 12/06/17 16:49 Temperature 99.6 F Pulse Rate 110 H 107 H Respiratory Rate 20 22 Blood Pressure 147/86 H 162/89 H Pulse Oximetry 97 99 99 12/06/17 17:44 12/06/17 18:10 12/06/17 18:51 Temperature Pulse Rate 92 H 98 H Respiratory Rate 18 16 Blood Pressure 136/85 137/95 H Pulse Oximetry 100 99 100 12/06/17 20:00 12/06/17 21:00 12/07/17 00:00 Temperature 98.7 F 98.9 F Pulse Rate 97 H 97 H 106 H Respiratory Rate 26 H 23 Blood Pressure 132/87 97/60 L Pulse Oximetry 95 95 12/07/17 04:00 Temperature 98.5 F Pulse Rate 96 H Respiratory Rate 20 Blood Pressure 102/62 Pulse Oximetry 95 Intake & Output 0712/07/17 12/07/17 18:59 06:59 18:59 Intake Total 4712.2 / 4712.2 Output Total 500 / 500 Balance 4212.2 / 4212.2 Weight 79.379 kg 76.5 kg Intake: IV 4712.2 / 4712.2 NS + KCl 20 mEq Inj 1,000 ML @ 1000 / 1000 100 mls/hr IV.CONT .Q10H GERMAINE Rx #:[id number] Magnesium Sulfate 1 gm/D5W 100 400 / 400 ml Premix 100 ML @ 100 mls/hr IV.SIG Q1H GERMAINE Rx#:[id number] MVI-12 Inj 10 ML Thiamine Inj 511.2 / 511.2 100 MG Folvite Inj 1 MG In NS Inj 500 ML @ 125 mls/hr IV.SIG Q24H GERMAINE Rx#:[id number] KCl 10 mEq Premix Inj 10 meq In 600 / 600 100 ml @ 100 mls/hr IV.SIG Q1H GERMAINE Rx#:[id number] NS Inj 1,000 ML @ Wide Open IV. 1999 SIG BOLUS ONE Rx#:[id number] Thiamine Inj 100 MG In NS Inj 101 / 101 100 ML @ 100 mls/hr IV.SIG ONCE ONE Rx#:[id number] Keppra 1000 mg/100 mL Premix 100 / 100 100 ML @ 400 mls/hr IV.SIG ONCE ONE Rx#:[id number] Output: Urine 500 / 500 Other: # Bowel Movements 0 Weight On Admission 83.5 kg Result Diagrams: 12/07/17 06:33 12/06/17 20:35 Objective Remarks: GEN: 32-year-old male lying in bed no acute distress HEENT: Atraumatic normocephalic pupils are reactive CVS: S1-S2 normal no murmurs PULM: Clear to auscultation bilaterally ABD: Soft, non-tender, non-distended, no guarding or rebound EXT/MS: No lower extremity edema, warm and well-perfused NEURO: Alert awake oriented 3 no focal deficits. Assessment and Plan - Assessment and Plan Plan: Neuro/Psych: Seizure disorder NOS Alcohol withdrawal Alcohol dependence Depression/anxiety History of THC use 4 witnessed seizures in the ED. None after admission Seizure precaution Continue levetiracetam 1000 mg IV twice daily CIWA protocol. On chlordiazepoxide 25 mg 4 times daily Vitamin bag including thiamine, multivitamin folate daily 3 days Continue Quetiapine 200 mg at night/home medication for depression/anxiety Holding lorazepam 0.5 mg 3 times daily/home medication while on chlordiazepoxide EEG pending CV: Sinus tachycardia Currently on normal saline with 20 mEq of KCl at 100 cc an hour No indication for antihypertensives and/or vasopressors at the present time Resp: History of tobaccoism 2- 3 cigarettes daily Nasal cannula to maintain saturations greater than equal to 92%. Currently on 3 L Incentive spirometry while awake Albuterol/ipratropium aerosols every 4 hours with albuterol aerosols every 2 hours as needed for dyspnea Follow-up on chest x-ray Tobacco cessation self evaluation will be provided when appropriate GI: Pancreatitis/acute likely secondary to EtOH History of gastroesophageal reflux disease Elevated AST Lipase was 720 Currently n.p.o. except for medications Start clear liquid diet CT abdomen/pelvis without IV contrast-no imaging evidence of pancreatitis Pantoprazole for GI prophylaxis Docusate sodium/senna 1 tablet twice daily for bowel regimen Endo: Sliding scale insulin with aspart insulin with Accu-Cheks every 6 hours to maintain euglycemia/low regimen Renal: Acute kidney injury Creatinine currently 2.0, follow up labs pending No hydronephrosis CT abdomen/pelvis without IV contrast Urine eosinophils/sodium and creatinine pending Hydrate with normal saline with 20 mg of KCl at 100 cc an hour due to potassium of 2.3 Heme: Leukocytosis Macrocytosis Monitor CBC daily. Follow trends No indication for transfusion of blood products at this time ID: Monitor for signs and symptomatology of infection MSK: PT evaluate and treat FEN: Hypopotassemia Hyponatremia Hypomagnesia All these electrolyte abnormalities are acute. ICU electrolyte replacement protocols been initiated. Recheck electrolytes in a.m. including phosphorus Currently normal saline with 20 mill cons of KCl at 100 cc an hour Access -Utilize peripheral IV. Central line if indicated Prophylaxis -GI -pantoprazole -DVT -SCD/heparin subcu Level 2 Consult hospitalist to assume care of 12/08/2017. Transfer to [facility] with telemetry
[2017-12-07 07:30] LABS: Albumin 3.4 g/dL (3.4-5.0); Calcium 6.8 mg/dL (8.5-10.1); Carbon Dioxide 32.9 meq/L (21.0-32.0); Chol/HDL Ratio 2.49 Ratio; HDL Cholesterol 60.9 mg/dL (40.0-60.0); Magnesium 2.6 mg/dL (1.5-2.5); Phosphorus 0.8 mg/dL (2.5-4.9); Thyroid Stimulating Hormone 2.22 uIU/mL (0.358-3.740); Total Protein 5.7 g/dL (6.4-8.2)
[2017-12-07 07:45] LABS: Potassium 2.8 meq/L (3.5-5.1)
[2017-12-07] MEDS ORDERED: Calcium Chloride Inj 1 GM/10 ML Syringe IV.PUSH ONE (07:53)
[2017-12-07] MEDS: Senna/Docusate Sodium 8.6/50 MG Tablet PO SCH (09:07)
[2017-12-07] MEDS: Potassium Chlor 20 mEq Premix 20 MEQ/100 ML PIGGYBACK IV.SIG PRN ×2 (09:09→13:20)
[2017-12-07] MEDS: Pantoprazole Inj 40 MG Vial IV.PUSH SCH (09:10)
[2017-12-07 11:00] LABS: Magnesium 2.1 mg/dL (1.5-2.5)
[2017-12-07 11:04] LABS: Potassium 2.5 meq/L (3.5-5.1)
--- NOTE | 2017-12-07 15:09 | MG ---
cc: Inés Gilmore MD EEG NUMBER: [id number] REFERRING PHYSICIAN: Pamela Allen MD CLINICAL HISTORY: Room 511. Awake, drowsy, asleep. Hyperventilation fair effort. Photic done. EEG 08/27/2015 had some phase reversals possible over the right hemisphere. This is 2016 with a history of multiple seizures, 4 witnessed, 1 in the ED, 1 generalized tonic-clonic. He has a history of reflux, nausea, seizures in the past. On Librium, Keppra, thiamine, Seroquel, Ativan at 1725 yesterday. He has also a history of heavy drinking 3 days prior and did not take his seizure meds. DESCRIPTION OF RECORD: The patient has a background rhythm of 9-10 Hz, 20-60 microvolts. Some movement artifact, but symmetrical background. EKG looks sinus. Feet twitching documented by the certified bench jeweler technician. No correlation with any epileptiform features. Hyperventilation is performed in the recording, some mild artifact, but overall symmetrical background, no epileptiform features during the hyperventilatory portion. Photic stimulation does elicit a posterior driving response. IMPRESSION: Normal EEG. No evidence of any epileptiform features in this one recording. Clinical correlation. Inés Gilmore MD DF/TL , 02:53 PM , 03:08 PM
[2017-12-07] MEDS ORDERED: levETIRAcetam 1000mg/100mL Inj 100 ML IV.SIG SCH (18:00)
[2017-12-07] MEDS: Multivitamin Inj 10 ML, Thiamine Inj 100 MG, Folic Acid Inj 1 MG in Sodium Chlor 0.9% I... IV.SIG SCH (20:38)
[2017-12-08] MEDS: chlordiazePOXIDE 25 MG Capsule PO SCH ×3 (02:28→23:26)
[2017-12-08 05:41] LABS: Calcium 7.3 mg/dL (8.5-10.1); Carbon Dioxide 26.5 meq/L (21.0-32.0); Magnesium 1.5 mg/dL (1.5-2.5); Total Protein 5.6 g/dL (6.4-8.2)
[2017-12-08] MEDS: Pantoprazole Inj 40 MG Vial IV.PUSH SCH (09:24)
[2017-12-08] MEDS: Senna/Docusate Sodium 8.6/50 MG Tablet PO SCH ×2 (09:29→23:25)
--- NOTE | 2017-12-08 10:10 | P.PNIM ---
Subjective Interval history: Pt complains of continued sharp back pain He is tolerating liquid diet and requesting advancement to regular diet No nausea/vomiting, abdominal pain Pt has been afebrile Physical Exam Vital signs: Vital Signs 12/07/17 12:00 12/07/17 16:00 12/07/17 17:27 Temperature 99.1 F 98.3 F Pulse Rate 64 99 H 96 H Respiratory Rate 22 18 16 Blood Pressure 124/88 142/97 H Pulse Oximetry 97 100 98 12/07/17 20:00 12/07/17 21:28 12/08/17 00:25 Temperature 99.4 F 98.6 F Pulse Rate 115 H 72 116 H Respiratory Rate 17 15 17 Blood Pressure 145/87 H 143/83 H Pulse Oximetry 100 99 12/08/17 00:30 Temperature Pulse Rate Respiratory Rate 15 Blood Pressure Pulse Oximetry Intake & Output 12/07/17 12/08/17 12/08/17 18:59 06:59 18:59 Intake Total 1250 / 1250 720 / 720 100 / 100 Balance 1250 / 1250 720 / 720 100 / 100 Intake: IV 1250 / 1250 100 / 100 NS + KCl 20 mEq Inj 1,000 ML @ 1000 / 1000 100 mls/hr IV.CONT .Q10H GERMAINE Rx #:[id number] KCl 20 mEq Premix Inj 20 meq In 150 / 150 100 ml @ 50 mls/hr IV.SIG Q2H PRN Rx#:[id number] Keppra 1000 mg/100 mL Premix 100 / 100 100 / 100 100 ML @ 400 mls/hr IV.SIG Q12H GERMAINE Rx#:[id number] Oral 720 / 720 Other: # Voids 3 Date of Last Bowel Movement 12/07/17 12/07/17 # Bowel Movements 6 0 Narrative: GENERAL: NAD, AAOx3 SKIN: Warm and dry. CARDIO: Regular RESP: CTA bilaterally. ABD: +BS, soft, non-tender, nondistended. EXT: No edema. Results - Labs CBC & Chem 7: 12/07/17 06:33 12/08/17 03:23 Laboratory Results - last 24 hr 12/07/17 12/07/17 12/07/17 09:58 11:46 17:26 Sodium Potassium 2.5 L* Chloride Carbon Dioxide Anion Gap BUN Creatinine Estimated GFR POC Glucose 116 H 120 H Random Glucose Calcium Prot Corrected Calcium Magnesium 2.1 Total Bilirubin AST ALT Alkaline Phosphatase Total Protein Albumin 12/07/17 12/08/17 12/08/17 21:18 00:48 03:23 Sodium 142 Potassium 3.1 L 3.0 L Chloride 106 D Carbon Dioxide 26.5 Anion Gap 10 BUN 8 Creatinine 1.04 Estimated GFR 83 L POC Glucose 131 H Random Glucose 93 Calcium 7.3 L* Prot Corrected Calcium 8.1 L Magnesium 1.5 D Total Bilirubin 0.3 AST 150 H ALT 68 Alkaline Phosphatase 174 H Total Protein 5.6 L Albumin 3.0 L 12/08/17 06:30 Sodium Potassium Chloride Carbon Dioxide Anion Gap BUN Creatinine Estimated GFR POC Glucose 117 H Random Glucose Calcium Prot Corrected Calcium Magnesium Total Bilirubin AST ALT Alkaline Phosphatase Total Protein Albumin Microbiology 12/06/17 17:30 Clean Catch Urine Urine Culture - Preliminary Immature growth - reincubate - Imaging ITS Impressions Abdomen/Pelvis CT 12/06/17 00:00 CONCLUSION: 1. No obstruction or acute inflammatory changes are demonstrated. 2. Enlarged and mild fatty infiltrated liver again noted. 3. No definite acute pancreatitis changes. Head CT 12/06/17 16:38 CONCLUSION: Negative exam. No change from prior. Chest X-Ray 12/07/17 06:00 CONCLUSION: 1. No acute abnormality or significant interval change. Assessment and Plan - Assessment (1) Seizures Code(s): R56.9 - Unspecified convulsions Status: Acute Plan: Seizure disorder - Pt is a 32 male with seizure disorder and hx of alcohol abuse - Pt was admitted on 12/06/2017 after witnessed seizures at home. He has history of heavy alcohol use drinks 5-6 drinks daily. Stop drinking 3 days prior to admission. He then began having nausea, multiple episodes of vomiting/inability to tolerate any PO intake, and multiple episodes of diarrhea per day. He was unable to take his levetiracetam or quetiapine or Lorazepam, and his mother witnessed a generalized tonic-clonic seizure lasting approximately 1 minute just prior to arrival followed by a post-ictal period of 15-20 minutes. - The patient had 4 witnessed seizures in the ED. He received lorazepam 2 mg IM 1 was loaded with levetiracetam 1000 mg 1 and continued on IV Keppra 1000mg Q12H. - CT brain (12/06/17) revealed no acute intracranial findings. - Pt has not had any further seizures after admission - Pt reports that he normally takes Keppra 500mg po BID, we will change him back over to his home dose of Keppra on 12/08 Alcohol withdrawal Alcohol dependence History of THC use - [facility] protocol. - Pt has been on chlordiazepoxide 25 mg 4 times daily, vitamin bag including thiamine, multivitamin folate daily 3 days - Decrease LIbrium to 25mg BID on 12/08 - Continue Quetiapine 200 mg at night/home medication for depression/anxiety, pt also takes Quetiapine 50mg at 0700 and 1200 which will be resumed on 12/08 as well. - Holding lorazepam 0.5 mg 3 times daily/home medication while on chlordiazepoxide - EEG negative. Sinus tachycardia - cont. IVF History of tobaccoism 2- 3 cigarettes daily - Incentive spirometry while awake - Duonebs 4 hours and Q2H as needed for dyspnea - Tobacco cessation Pancreatitis/acute likely secondary to EtOH History of gastroesophageal reflux disease Elevated ASTm likely secondary to alcohol abuse - Lipase was 720 at admission - CT abdomen/pelvis without IV contrast-no imaging evidence of pancreatitis - Recheck labs in AM - Advance diet as tolerated - Docusate sodium/senna 1 tablet twice daily for bowel regimen Acute kidney injury, likley secondary to dehydration/acute illness - Labs improved with IVF - No hydronephrosis CT abdomen/pelvis without IV contrast Hypopotassemia Hyponatremia Hypomagnesia - All these electrolyte abnormalities are acute. - pt was given ICU electrolyte replacement protocols been initiated. - Potassium improving but still low on 12/08, continue oral replacement. - Recheck electrolytes in a.m. The exam, history, and the medical decision-making described in the above note were completed with the assistance of the mid-level provider. I reviewed and agree with the findings presented. I attest that I had a [id number] encounter with the patient on the same day, and personally performed and documented my assessment and findings in the medical record.
[2017-12-08] MEDS: Naproxen 500 MG Tablet PO SCH ×2 (10:44→23:25)
[2017-12-08] MEDS: QUEtiapine 25 MG Tablet PO SCH (11:31)
[2017-12-08] MEDS: Insulin NovoLOG Aspart Correctional Sugar Inj SQ SCH ×2 (11:32→17:38)
[2017-12-08 17:37] LABS: Creatinine,Urine Random 67 mg/dL (27-300)
[2017-12-08] MEDS: levETIRAcetam 500 MG Tablet PO SCH (23:26)
[2017-12-09] MEDS: Chlorhexidine Gluconate 2% 1 Pack (2 Cloths) TOPICAL SCH ×2 (00:15→04:00)
[2017-12-09] MEDS: Senna/Docusate Sodium 8.6/50 MG Tablet PO SCH ×2 (00:16→09:13)
[2017-12-09] MEDS: Multivitamin Inj 10 ML, Thiamine Inj 100 MG, Folic Acid Inj 1 MG in Sodium Chlor 0.9% I... IV.SIG SCH (02:19)
[2017-12-09 07:10] LABS: Baso % (Auto) 0.7 % (0.0-2.0); Eos # (Auto) 0.1 th/mm3 (0.0-0.4); Eos % (Auto) 2.1 % (0.0-4.0); Hematocrit 29.5 % (39.0-51.0); Hemoglobin 10.2 gm/dL (13.0-17.0); Lymph # (Auto) 1.6 th/mm3 (1.0-4.8); Mean Corpuscular HGB Conc 34.6 % (32.0-36.0); Mean Corpuscular Hemoglobin 36.8 pg (27.0-34.0); Mean Corpuscular Volume 106.2 fL (80.0-100.0); Mean Platelet Volume 7.6 fL (7.0-11.0); Mono # (Auto) 0.5 th/mm3 (0.0-0.9); Mono % (Auto) 8.1 % (0.0-8.0); Neut # (Auto) 4.2 th/mm3 (1.8-7.7); Neut % (Auto) 64.1 % (16.0-70.0); Platelet Count 231 th/mm3 (150-450); Red Blood Count 2.78 mil/mm3 (4.50-5.90); Red Cell Distribution Width 16.6 % (11.6-17.2); White Blood Count 6.6 th/mm3 (4.0-11.0)
[2017-12-09 07:30] LABS: Anion Gap 7 meq/L (5-15); Blood Urea Nitrogen 8 mg/dL (7-18); Calcium 7.3 mg/dL (8.5-10.1); Chloride 109 meq/L (98-107); Glomerular Filtration Rate Greater Than 89 mL/min (>89); Glucose,Random 99 mg/dL (74-106); Lipase 631 U/L (73-393); Magnesium 1.2 mg/dL (1.5-2.5); Potassium 4.3 meq/L (3.5-5.1); Sodium 143 meq/L (136-145)
[2017-12-09 07:50] LABS: Total Protein 5.3 g/dL (6.4-8.2)
[2017-12-09] MEDS: chlordiazePOXIDE 25 MG Capsule PO SCH (09:13)
[2017-12-09] MEDS: levETIRAcetam 500 MG Tablet PO SCH (09:13)
[2017-12-09] MEDS: Naproxen 500 MG Tablet PO SCH (09:27)
[2017-12-09] MEDS: QUEtiapine 25 MG Tablet PO SCH ×2 (09:27→13:12)
--- NOTE | 2017-12-09 10:13 | P.DS ---
Date of admission: 12/06/17 17:49 Primary care physician: Jin Juarez MD Anticipated date of discharge: 12/09/17 Brief History from admission: This is a 32-year-old male. Date of admission 12/06/2017. Past medical history includes seizure disorder which he takes levetiracetam 1000 mg twice daily. He has history of heavy alcohol use drinks 5-6 drinks daily. Stop drinking 3 days ago. This is likely septic due to elevated lipase/ pancreatitis. Since that time he is unable to take his levetiracetam or quetiapine or Lorazepam today, his mother witnessed a generalized tonic-clonic seizure lasting approximately 1 minute just prior to arrival followed by a post- ictal period of 15-20 minutes. The patient states that he thinks he had 2 additional unwitnessed seizures today as well. Admits to diaphoresis, visual disturbance ("the lights look hazy"), anxiety, tremor, headache, and nausea. History of pancreatitis. According to records, patient had 2 witnessed seizures in the ED which received lorazepam 2 mg IM 1 was loaded with levetiracetam 1000 mg 1. Laboratory significant for leukocytosis of 11.6. Macrocytosis. Potassium 2.3. Magnesium 1.0. CT brain revealed no acute intracranial findings. We are asked to admit. DS: Diagnosis - Discharge Diagnosis (1) Seizures Status: Acute (2) Alcohol abuse Status: Acute (3) Alcohol withdrawal Status: Acute DS: Medications - Discharge Medications Prescriptions: levetiracetam [Keppra] 500 mg PO BID 14 Days #28 tab lorazepam [Ativan] 0.5 mg PO DIRECTED #19 tab DS: Summary Hospital Course: ITS Impressions Abdomen/Pelvis CT 12/06/17 00:00 CONCLUSION: 1. No obstruction or acute inflammatory changes are demonstrated. 2. Enlarged and mild fatty infiltrated liver again noted. 3. No definite acute pancreatitis changes. Head CT 12/06/17 16:38 CONCLUSION: Negative exam. No change from prior. Chest X-Ray 12/07/17 06:00 CONCLUSION: 1. No acute abnormality or significant interval change. Assessment and Plan - Assessment (1) Seizures Code(s): R56.9 - Unspecified convulsions Status: Acute Plan: Seizure disorder - Pt is a 32 male with seizure disorder and hx of alcohol abuse - Pt was admitted on 12/06/2017 after witnessed seizures at home. He has history of heavy alcohol use drinks 5-6 drinks daily. Stop drinking 3 days prior to admission. He then began having nausea, multiple episodes of vomiting/inability to tolerate any PO intake, and multiple episodes of diarrhea per day. He was unable to take his levetiracetam or quetiapine or Lorazepam, and his mother witnessed a generalized tonic-clonic seizure lasting approximately 1 minute just prior to arrival followed by a post-ictal period of 15-20 minutes. - The patient had 4 witnessed seizures in the ED. He received lorazepam 2 mg IM 1 was loaded with levetiracetam 1000 mg 1 and continued on IV Keppra 1000mg Q12H. - CT brain (12/06/17) revealed no acute intracranial findings. - Pt has not had any further seizures after admission - Pt reports that he normally takes Keppra 500mg po BID, we will change him back over to his home dose of Keppra on 12/08 Pt will be sent home with an ativan taper. limited script for his seroquel given. He is advised to call his pcp and psychiatrist immediately upon dc for f/u. Also advised to stop using etoh. Alcohol withdrawal Alcohol dependence History of THC use - [facility] protocol. - Pt has been on chlordiazepoxide 25 mg 4 times daily, vitamin bag including thiamine, multivitamin folate daily 3 days - Decrease LIbrium to 25mg BID on 12/08 - Continue Quetiapine 200 mg at night/home medication for depression/anxiety, pt also takes Quetiapine 50mg at 0700 and 1200 which will be resumed on 12/08 as well. - Holding lorazepam 0.5 mg 3 times daily/home medication while on chlordiazepoxide - EEG negative. Sinus tachycardia - cont. IVF History of tobaccoism 2- 3 cigarettes daily - Incentive spirometry while awake - Duonebs 4 hours and Q2H as needed for dyspnea - Tobacco cessation Pancreatitis/acute likely secondary to EtOH History of gastroesophageal reflux disease Elevated ASTm likely secondary to alcohol abuse - Lipase was 720 at admission - CT abdomen/pelvis without IV contrast-no imaging evidence of pancreatitis - Advance diet as tolerated - Docusate sodium/senna 1 tablet twice daily for bowel regimen Acute kidney injury, likley secondary to dehydration/acute illness - Labs improved with IVF - No hydronephrosis CT abdomen/pelvis without IV contrast Hypopotassemia Hyponatremia Hypomagnesia - All these electrolyte abnormalities are acute. - pt was given ICU electrolyte replacement protocols been initiated. - Potassium improving but still low on 12/08, continue oral replacement. - replaced - Time Spent with Patient Total time spent providing and/or coordinating discharge services: - Quality: VTE Deep Vein Thrombosis/Pulmonary Embolism Present on Admission: No Exam Vital signs: Vital Signs 12/08/17 12:00 12/08/17 16:53 12/08/17 16:54 Temperature 97.5 F L Pulse Rate 105 H 88 Respiratory Rate 17 18 Blood Pressure 137/92 H Pulse Oximetry 100 99 12/08/17 19:26 12/08/17 20:00 12/08/17 23:40 Temperature 97.2 F L 97.5 F L Pulse Rate 94 H 94 H Respiratory Rate 18 18 Blood Pressure 145/94 H 154/94 H Pulse Oximetry 96 96 97 12/09/17 00:16 12/09/17 09:32 Temperature Pulse Rate 98 H Respiratory Rate 16 Blood Pressure Pulse Oximetry 98 Intake & Output 12/08/17 12/09/17 12/09/17 18:59 06:59 18:59 Intake Total 1100 / 1100 720 / 720 Balance 1100 / 1100 720 / 720 Weight 82.4 kg Intake: IV 1100 / 1100 NS + KCl 40 mEq Inj 1,000 ML @ 1000 / 1000 84 mls/hr IV.CONT .[id number] GERMAINE Rx#:[id number] Keppra 1000 mg/100 mL Premix 100 / 100 100 ML @ 400 mls/hr IV.SIG Q12H GERMAINE Rx#:[id number] Oral 720 / 720 Other: # Voids 4 2 Date of Last Bowel Movement 12/08/17 # Bowel Movements 2 1 heart reg lung cta abd s/nt ext no edema Results Procedures completed during hospitalization: no procedures Labs on day of discharge: Labs from last 24 hours 12/09/17 12/09/17 12/09/17 06:34 06:00 06:00 WBC 6.6 RBC 2.78 L Hgb 10.2 L Hct 29.5 L MCV 106.2 H D MCH 36.8 H MCHC 34.6 RDW 16.6 Plt Count 231 MPV 7.6 Neut % (Auto) 64.1 Lymph % (Auto) 25.0 [place] % (Auto) 8.1 H Eos % (Auto) 2.1 Baso % (Auto) 0.7 Neut # (Auto) 4.2 Lymph # (Auto) 1.6 [place] # (Auto) 0.5 Eos # (Auto) 0.1 Baso # (Auto) 0.0 WBC Differential . Differential Comment Auto diff final Sodium 143 Potassium 4.3 D Chloride 109 H Carbon Dioxide 27.0 Anion Gap 7 BUN 8 Creatinine 0.86 Estimated GFR Greater than 89 POC Glucose 100 Random Glucose 99 Calcium 7.3 L* Prot Corrected Calcium 8.3 L Magnesium 1.2 L Total Protein 5.3 L Lipase 631 H Urine Eosinophils Ur Random Creatinine Ur Random Sodium 12/09/17 12/08/17 12/08/17 01:17 17:11 17:11 WBC RBC Hgb Hct MCV MCH MCHC RDW Plt Count MPV Neut % (Auto) Lymph % (Auto) [place] % (Auto) Eos % (Auto) Baso % (Auto) Neut # (Auto) Lymph # (Auto) [place] # (Auto) Eos # (Auto) Baso # (Auto) WBC Differential Differential Comment Sodium Potassium Chloride Carbon Dioxide Anion Gap BUN Creatinine Estimated GFR POC Glucose 125 H Random Glucose Calcium Prot Corrected Calcium Magnesium Total Protein Lipase Urine Eosinophils None seen Ur Random Creatinine 67 Ur Random Sodium 220 12/08/17 11:28 WBC RBC Hgb Hct MCV MCH MCHC RDW Plt Count MPV Neut % (Auto) Lymph % (Auto) [place] % (Auto) Eos % (Auto) Baso % (Auto) Neut # (Auto) Lymph # (Auto) [place] # (Auto) Eos # (Auto) Baso # (Auto) WBC Differential Differential Comment Sodium Potassium Chloride Carbon Dioxide Anion Gap BUN Creatinine Estimated GFR POC Glucose 260 H Random Glucose Calcium Prot Corrected Calcium Magnesium Total Protein Lipase Urine Eosinophils Ur Random Creatinine Ur Random Sodium - Impressions ITS Impressions Abdomen/Pelvis CT 12/06/17 00:00 CONCLUSION: 1. No obstruction or acute inflammatory changes are demonstrated. 2. Enlarged and mild fatty infiltrated liver again noted. 3. No definite acute pancreatitis changes. Head CT 12/06/17 16:38 CONCLUSION: Negative exam. No change from prior. Chest X-Ray 12/07/17 06:00 CONCLUSION: 1. No acute abnormality or significant interval change. Discharge Plan - Discharge Disposition Patient Disposition: 01 Discharge Home - Discharge Condition Condition: Stable - Discharge Order Discharge Orders: Discharge Order (Routine); Ordered 12/09/17 Ordered By: Philip Ayala - Discharge Details Anticipated Discharge Date: 12/09/17 - Physicians Team Primary Care Provider: Jin Juarez V Attending Provider: Pamela Allen Other Providers: Philip Ayala MD
[2017-12-09] MEDS: Mag Sulf 1 gm/100 ml Premix 100 ML IV.SIG SCH ×2 (10:46→13:13)
== END 2017-12-09 16:04 | disposition home or self-care (01) ==
LOC: NEPD 14:26 → NEDA 17:49 → HCIS 18:47 → HIMC 19:55 → N06 12-07 13:59
PROVIDERS: ADMIT Internal Medicine; ATTEND Internal Medicine

== ENCOUNTER 2018-01-28 07:42 | Inpatient (IN) ==
[~2018-01-28 07:42] MED LIST changes: -CALC1TAB87 PO; -CARA1TAB6 PO; +DOPamine 800 MG/500 ML Premix 800 MG/500 ML PLAST..BAG IV.CONT ONE; -LEVE500 PO; -LORA1TAB12 PO; -MULT1TAB46; -PROT40TA PO; -SERO200T PO; -SERO25TA PO
[2018-01-28] MEDS ORDERED: Sod Chloride 0.9% Inj 1,000 ML IV.SIG ONE ×2 (08:22→14:50)
--- NOTE | 2018-01-28 08:36 | ED ---
HPI General Chief complaint: Nausea/Vomiting/Diarrhea Stated complaint: vomitting Time Seen by Provider: 01/28/18 07:55 History of Present Illness HPI narrative: Patient is a 32-year-old male presents emergency department for a two-day history of nausea vomiting and diarrhea. Nonbloody nonbilious emesis and bloody no melanotic stools. Patient's mother had just had a stomach bug which she got over. Mom states that he has become fairly dehydrated is been having some cramping of his hands. She is worried that he is getting dehydrated and his potassium might begin low. He was unable to tolerate a banana so she gave him some potassium pills p.o. which she also did not tolerate and threw up. No fevers no cough no congestion mild abdominal cramping but no pain. Patient does have a history of alcoholism but has been remission for the past 4 weeks as he started treatment. Symptoms moderate, for the past few days, associated signs symptoms in context as above. Related Data Home Medications Medication Instructions Recorded Confirmed levetiracetam [Keppra] 500 mg PO Q12H 01/28/18 01/28/18 pantoprazole [Protonix] 40 mg PO BID 01/28/18 01/28/18 quetiapine [Seroquel] 50 mg PO TID 01/28/18 01/28/18 Previous Rx's Medication Instructions Recorded lorazepam [Ativan] 0.5 mg PO DIRECTED #19 tab 12/09/17 Allergies Allergy/AdvReac Type Severity Reaction Status Date / Time Sulfa (Sulfonamide Allergy Severe hives Verified 10/11/17 07:56 Antibiotics) Review of Systems ROS: all other systems reviewed are negative [facility] Medical History Medical History Depression (Acute) GERD (gastroesophageal reflux disease) (Acute) Alcohol abuse (Acute) Hernia (Acute) Pancreatitis (Acute) Seizures (Acute) Surgical History Surgical History History of left inguinal hernia repair (Acute) Social History Social History Substance History: Active Abuse Second Hand Smoke Exposure: No Smoking Status: Former smoker Tobacco Type: Cigarettes How Often Do You Have a Drink Containing Alcohol: 2 to 4 times a month Hx Recent Travel: No Recent Travel in [facility] within the Last 8 Weeks: No Recent Out of Country Travel within the Last 8 Weeks: No Substance Abuse Detail Alcohol: Substance Use Status: Early Remission Route Used Substance Abuse: By Mouth Substance Frequency: Was a heavy daily user, quit 4 weeks ago Reason for Use: Calm Down Immunization History Tetanus Immunization: <5 Years Hx Influenza Vaccine This Season: Yes Exam Narrative Exam Narrative: GENERAL: Well-developed well-nourished no obvious distress. SKIN: Focused skin assessment warm/dry. HEAD: Atraumatic. Normocephalic. EYES: Pupils equal and round. No scleral icterus. No injection or drainage. ENT: No nasal bleeding or discharge. Mucous membranes pink and moist. NECK: Trachea midline. No JVD. CARDIOVASCULAR: Regular rate and rhythm. No murmur appreciated. RESPIRATORY: No accessory muscle use. Clear to auscultation. Breath sounds equal bilaterally. GASTROINTESTINAL: Abdomen soft, non-tender, nondistended. Hepatic and splenic margins not palpable. MUSCULOSKELETAL: No obvious deformities. No clubbing. No cyanosis. No edema. NEUROLOGICAL: Awake and alert. No obvious cranial nerve deficits. Motor grossly within normal limits. Normal speech. PSYCHIATRIC: Appropriate mood and affect; insight and judgment normal. Procedures Central Line Placement Right Femoral: Time Out Performed: No MD Prep: other (No prep as this was placed during code for resuscitation. This line should be replaced within 24 hours) Central Line Prep: Chlorhexidine scrub Ultrasound Used for Placement: No Central Line Lumen Inserted: triple Post Procedure: sutured in place, good blood return, all ports aspirated, flushed, capped and sterile dressing applied Patient Tolerated Procedure: well Complications: none Intubation Time Out Performed: No Sedative: none Paralytic: other Laryngoscope: Barrington ET Tube Size: 8 Tube Placement Confirmation: visualized tube passing through cords, equal breath sounds bilaterally, no breath sounds over epigastrium and confirmation by capnometry Patient Tolerated Procedure: well Course Initial Documented Vital Signs Temperature 97.5 F L 01/28/18 07:44 Pulse Rate 109 H 01/28/18 07:44 Respiratory Rate 20 01/28/18 07:44 Blood Pressure 143/93 H 01/28/18 07:44 Pulse Oximetry 96 01/28/18 07:44 Last Documented Vital Signs Temperature 97.5 F L 01/28/18 07:44 Pulse Rate 82 01/28/18 10:15 Respiratory Rate 26 H 01/28/18 10:15 Blood Pressure 102/54 L 01/28/18 10:15 Pulse Oximetry 100 01/28/18 10:15 Critical Care Time Critical Care Time: Yes Total Critical Care Time: 65 Attestation: Aggregate critical care time was 65 minutes. Time to perform other separately billable procedures was not included in the critical care time. My time did not include minutes spent treating any other patients simultaneously or on activities that did not directly contribute to the patient's treatment. The services I provided to this patient were to treat and/or prevent clinically significant deterioration that could result in: , disability, organ failure I provided critical care services requiring my management, as noted below: Chart data review, documentation time, medication orders and management, vital sign assessments/reviewing monitor data, ordering and reviewing lab tests, ordering and interpreting/reviewing x-rays and diagnostic studies, care of the patient and discussion of the patient with the admitting physicians. Medical Decision Making MDM Narrative Medical decision making narrative: Patient room to the emergency department, he does appear dehydrated is having some contractures of his upper extremity, mother gave potassium thinking his potassium might be low. Patient abdomen is benign, the remainder of his exam is reassuring other than a little contracture of his right upper extremity which he is able to consciously override. While working at my other patients, the patient had a seizure-like event which was not witnessed by my staff, mother called us to the bedside and I found the patient apneic, artifact versus VF on the monitor which ultimately was confirmed by second monitor as VF peer. He was pulseless and CPR was started. Remainder my team arrived and we continued ACLS protocol. He was defibrillated multiple times intubated multiple code medications were given and ultimately the patient had several return of spontaneous circulation. The patient received multiple defibrillations, epinephrine, Levophed, vasopressin, amiodarone total 300 mg IV push, lidocaine 100 mg IV push, atropine , magnesium 2 g IV push. During his first return of spontaneous circulation he was intubated by me. He then had repeat VF code. Ultimate return of spontaneous circulation. During his initial reassessment and code he did have unequal pupils dilated on the left. After resuscitation the patient is showing flexion at the hips and appears to be reaching for his ET tube, was placed in restraints, unclear as if this is reflex action versus purposeful movement. Postcode I did discuss the patient with Dr. Bower who will see the patient this afternoon, troponin drug screen and been sent as well. His electrolytes are being replaced with IV potassium, IV magnesium. He is received a total of 3 L of normal saline bolus. A dose of IV Keppra was and amiodarone drip ordered as well. Postcode EKG does show significant ST segment depressions in 2 3 aVF and V3 through V6. This is concerning but certainly does not meet acute STEMI criteria. After discussion with Dr. Bower she would like to get a stat echo and probably take the patient for cath once more stable later today or early tomorrow. Patient postcode was also given 5 mg of Versed, dose of rocuronium was given to aid him on the CAT scan table. Patient is critically ill, discussed with Dr. Hilliard as well as Dr. Bird who will admit. After his resuscitation he was taken to CAT scan by me, blood pressure is climbing and Levophed is being weaned. Patient with VF arrest, shock(cardiogenic versus hypovolemic), electrolyte normality, acute kidney injury peer Medical Screen Exam Complete: Yes Emergency Medical Condition: Yes Differential Diagnosis Differential Diagnosis: Dehydration, gastritis, gastroenteritis, electrolyte abnormality, VF, VT, STEMI, drug-induced cardiomyopathy, drug-induced myocardial infarction, arrhythmia. Lab Data Result diagrams: 01/28/18 10:40 01/28/18 08:32 Lab Results 01/28/18 01/28/18 01/28/18 Range/Units 08:32 08:32 09:37 WBC 8.2 (4.0-11.0) th/mm3 RBC 4.72 (4.50-5.90) mil/mm3 Hgb 16.7 (13.0-17.0) gm/dL Hct 46.7 (39.0-51.0) % MCV 98.9 (80.0-100.0) fL MCH 35.4 H (27.0-34.0) pg MCHC 35.8 (32.0-36.0) % RDW 14.9 (11.6-17.2) % Plt Count 387 (150-450) th/mm3 MPV 7.9 (7.0-11.0) fL Prelim Diff (Auto) Neut % (Auto) 67.3 (16.0-70.0) % Lymph % (Auto) 15.6 (9.0-44.0) % Mcminn % (Auto) 16.5 H (0.0-8.0) % Eos % (Auto) 0.1 (0.0-4.0) % Baso % (Auto) 0.5 (0.0-2.0) % Neut # (Auto) 5.5 (1.8-7.7) th/mm3 Lymph # (Auto) 1.3 (1.0-4.8) th/mm3 Mcminn # (Auto) 1.4 H (0.0-0.9) th/mm3 Eos # (Auto) 0.0 (0.0-0.4) th/mm3 Baso # (Auto) 0.0 (0.0-0.2) th/mm3 WBC Differential . Differential Comment Auto diff final PT (9.8-11.6) sec INR Ratio APTT (24.3-30.1) sec Puncture Site Right femoral Patient Temperature 98.6 O2 Saturation 91 (90-100) % ABG pH 7.15 L* (7.380-7.420) ABG pCO2 75 H* (38-42) mmHg ABG pO2 95 (61-120) mmHg ABG HCO3 25 (22-26) mmol/L ABG O2 Content 19.8 (12.0-20.0) Vol % ABG Base Excess -2.8 L (-2-2) mmol/L ABG Methemoglobin 0.8 (0-2) % Pérez Test Present Hemoglobin 15.5 (12.0-16.0) G/DL Carboxyhemoglobin 0.3 (0-4) % O2 Delivery Device Ambu mask Liter Flow 15.00 L/M Inspired O2 100 % Critical Value Yes Sodium 127 L (136-145) meq/L Potassium 2.0 L* (3.5-5.1) meq/L Chloride 56 L (98-107) meq/L Carbon Dioxide Greater than 45.0 H (21.0-32.0) meq/L Anion Gap 26 H (5-15) meq/L BUN 24 H (7-18) mg/dL Creatinine 4.03 H (0.60-1.30) mg/dL Estimated GFR 17 L (>89) mL/min Random Glucose 175 H (74-106) mg/dL Calcium 11.4 H (8.5-10.1) mg/dL Total Bilirubin 0.7 (0.2-1.0) mg/dL AST 60 H (15-37) U/L ALT 40 (12-78) U/L Alkaline Phosphatase 154 H (45-117) U/L Total Protein 8.8 H (6.4-8.2) g/dL Albumin 4.7 (3.4-5.0) g/dL Lipase 657 H (73-393) U/L 01/28/18 01/28/18 01/28/18 Range/Units 10:21 10:40 10:40 WBC 24.9 H D (4.0-11.0) th/mm3 RBC 3.57 L (4.50-5.90) mil/mm3 Hgb 12.4 L D (13.0-17.0) gm/dL Hct 38.4 L (39.0-51.0) % MCV 107.6 H D (80.0-100.0) fL MCH 34.8 H (27.0-34.0) pg MCHC 32.4 (32.0-36.0) % RDW 15.2 (11.6-17.2) % Plt Count 258 D (150-450) th/mm3 MPV 8.2 (7.0-11.0) fL Prelim Diff (Auto) Slide review pending Neut % (Auto) 74.3 H (16.0-70.0) % Lymph % (Auto) 20.3 (9.0-44.0) % Mcminn % (Auto) 4.4 (0.0-8.0) % Eos % (Auto) 0.5 (0.0-4.0) % Baso % (Auto) 0.5 (0.0-2.0) % Neut # (Auto) 18.5 H (1.8-7.7) th/mm3 Lymph # (Auto) 5.0 H (1.0-4.8) th/mm3 Mcminn # (Auto) 1.1 H (0.0-0.9) th/mm3 Eos # (Auto) 0.1 (0.0-0.4) th/mm3 Baso # (Auto) 0.1 (0.0-0.2) th/mm3 WBC Differential Differential Comment . PT 15.2 H (9.8-11.6) sec INR 1.5 Ratio APTT 25.4 (24.3-30.1) sec Puncture Site Art line Patient Temperature 98.6 O2 Saturation 77 L* (90-100) % ABG pH 7.27 L* (7.380-7.420) ABG pCO2 58 H* (38-42) mmHg ABG pO2 60 L (61-120) mmHg ABG HCO3 26 (22-26) mmol/L ABG O2 Content 13.0 (12.0-20.0) Vol % ABG Base Excess -0.6 (-2-2) mmol/L ABG Methemoglobin 0.7 (0-2) % Pérez Test Present Hemoglobin 12.0 (12.0-16.0) G/DL Carboxyhemoglobin 1.0 (0-4) % O2 Delivery Device Ambu mask Liter Flow 15.00 L/M Inspired O2 100 % Critical Value Yes Sodium (136-145) meq/L Potassium (3.5-5.1) meq/L Chloride (98-107) meq/L Carbon Dioxide (21.0-32.0) meq/L Anion Gap (5-15) meq/L BUN (7-18) mg/dL Creatinine (0.60-1.30) mg/dL Estimated GFR (>89) mL/min Random Glucose (74-106) mg/dL Calcium (8.5-10.1) mg/dL Total Bilirubin (0.2-1.0) mg/dL AST (15-37) U/L ALT (12-78) U/L Alkaline Phosphatase (45-117) U/L Total Protein (6.4-8.2) g/dL Albumin (3.4-5.0) g/dL Lipase (73-393) U/L Imaging Data Radiologist's impression: Abdomen/Pelvis CT 01/28/18 00:00 CONCLUSION: 1. There is a new finding of presumed pneumobilia in the left hepatic lobe. Is there a history of recent instrumentation? Portal venous gas is not entirely excluded. 2. Mild induration of the peripancreatic fat proximally suggest mild acute pancreatitis. 3. Small fat-containing umbilical hernia. 4. Pulmonary consolidation is noted as above. 5. Mild gaseous distention of the stomach. Chest CT 01/28/18 00:00 CONCLUSION: 1. Bilateral consolidation most pronounced in the left lower lobe and left upper lobe posteriorly. Chest X-Ray 01/28/18 10:15 CONCLUSION: Endotracheal tube as above. Left lung consolidation. Head CT 01/28/18 10:19 CONCLUSION: 1. Negative CT Head non contrast. . Discharge Plan Discharge Disposition Patient Disposition: 30 Still Patient Discharge Condition Condition: Critical Discharge Details Diagnosis: Cardiac arrest with ventricular fibrillation, Acute dehydration, Hypokalemia, Shock Physicians Team ED Provider: Bradford Krishnan Primary Care Provider: UNKNOWN, Attending Provider: Elvia Mena Discharge Interventions Interventions: Vital Signs Last Done: 01/28/18 10:15 Status ED Status: Admitted Patient
[2018-01-28 08:45] LABS: Baso % (Auto) 0.5 % (0.0-2.0); Eos % (Auto) 0.1 % (0.0-4.0); Hematocrit 46.7 % (39.0-51.0); Hemoglobin 16.7 gm/dL (13.0-17.0); Lymph # (Auto) 1.3 th/mm3 (1.0-4.8); Lymph % (Auto) 15.6 % (9.0-44.0); Mean Corpuscular HGB Conc 35.8 % (32.0-36.0); Mean Corpuscular Hemoglobin 35.4 pg (27.0-34.0); Mean Corpuscular Volume 98.9 fL (80.0-100.0); Mean Platelet Volume 7.9 fL (7.0-11.0); Mono # (Auto) 1.4 th/mm3 (0.0-0.9); Mono % (Auto) 16.5 % (0.0-8.0); Neut # (Auto) 5.5 th/mm3 (1.8-7.7); Neut % (Auto) 67.3 % (16.0-70.0); Platelet Count 387 th/mm3 (150-450); Red Blood Count 4.72 mil/mm3 (4.50-5.90); Red Cell Distribution Width 14.9 % (11.6-17.2); White Blood Count 8.2 th/mm3 (4.0-11.0)
[2018-01-28 09:14] LABS: Alanine Aminotransferase 40 U/L (12-78); Albumin 4.7 g/dL (3.4-5.0); Alkaline Phosphatase 154 U/L (45-117); Blood Urea Nitrogen 24 mg/dL (7-18); Calcium 11.4 mg/dL (8.5-10.1); Chloride 56 meq/L (98-107); Glomerular Filtration Rate 17 mL/min (>89); Glucose,Random 175 mg/dL (74-106); Lipase 657 U/L (73-393); Sodium 127 meq/L (136-145); Total Protein 8.8 g/dL (6.4-8.2)
[2018-01-28 09:18] LABS: Anion Gap 26 meq/L (5-15); Aspartate Aminotransferase 60 U/L (15-37)
[2018-01-28 10:05] LABS: ABG Base Excess -2.8 mmol/L (-2-2); ABG PCO2 75 mmHg (38-42); ABG PO2 95 mmHg (61-120)
[2018-01-28] MEDS ORDERED: levETIRAcetam 1000mg/100mL Inj 100 ML IV.SIG ONE (10:16)
[2018-01-28] MEDS ORDERED: Vasopressin Inj 40 UNIT in Dextrose 5% in Water Inj 98 ML IV.CONT PRN ×2 (10:17)
[2018-01-28] MEDS ORDERED: Midazolam Inj 5 MG/ML 1 ML Vial ONE (10:27)
[2018-01-28] MEDS: Magnesium Sulfate Inj 2 GM in Sodium Chlor 0.9% Inj 96 ML IV.SIG ONE ×2 (10:32→11:07)
[2018-01-28] MEDS ORDERED: Midazolam 50 MG/50 ML Inj 50 MG/50 ML BAG IV.CONT PRN (10:35)
[2018-01-28] MEDS ORDERED: fentaNYL 10 mcg/mL Premix Drip 2,500 MCG/250 ML BAG IV.SIG PRN (10:35)
[2018-01-28] MEDS ORDERED: Bisacodyl 10 MG Supp RECTAL PRN (10:35)
--- NOTE | 2018-01-28 10:57 | XR ---
EXAM DATE: 01/28/2018 10:53 AM EDT AGE/SEX: 32 years / Male INDICATIONS: Post intubation. Shortness of breath. CLINICAL DATA: This is the patient's initial encounter. Patient reports that signs and symptoms have been present for 1 day and indicates a pain score of Nonresponsive. MEDICAL/SURGICAL HISTORY: Non-responsive. Non-responsive. COMPARISON: C, CHEST 1V SINGLE AP, 12/07/2017. . FINDINGS: Endotracheal tube is present and the tip terminates in the inferior margin the clavicles. The cuff ap pears distended. Right lung is clear. Left lung demonstrates diffuse parenchymal consolidation. There is cardiomegaly. CONCLUSION: Endotracheal tube as above. Left lung consolidation. Electronically signed by: Justice Dominguez MD 01/28/2018 10:56 AM EDT
[2018-01-28 11:04] LABS: Baso # (Auto) 0.1 th/mm3 (0.0-0.2); Baso % (Auto) 0.5 % (0.0-2.0); Eos # (Auto) 0.1 th/mm3 (0.0-0.4); Eos % (Auto) 0.5 % (0.0-4.0); Hematocrit 38.4 % (39.0-51.0); Hemoglobin 12.4 gm/dL (13.0-17.0); Lymph % (Auto) 20.3 % (9.0-44.0); Mean Corpuscular HGB Conc 32.4 % (32.0-36.0); Mean Corpuscular Hemoglobin 34.8 pg (27.0-34.0); Mean Corpuscular Volume 107.6 fL (80.0-100.0); Mean Platelet Volume 8.2 fL (7.0-11.0); Mono # (Auto) 1.1 th/mm3 (0.0-0.9); Mono % (Auto) 4.4 % (0.0-8.0); Neut # (Auto) 18.5 th/mm3 (1.8-7.7); Neut % (Auto) 74.3 % (16.0-70.0); Platelet Count 258 th/mm3 (150-450); Red Blood Count 3.57 mil/mm3 (4.50-5.90); Red Cell Distribution Width 15.2 % (11.6-17.2); White Blood Count 24.9 th/mm3 (4.0-11.0)
[2018-01-28 11:11] LABS: Activated Partial Thrombo Time 25.4 sec (24.3-30.1); INR 1.5 Ratio; Prothrombin Time 15.2 sec (9.8-11.6)
[2018-01-28 11:13] LABS: ABG Base Excess -0.6 mmol/L (-2-2); ABG PCO2 58 mmHg (38-42); ABG PO2 60 mmHg (61-120)
--- NOTE | 2018-01-28 11:22 | CT ---
EXAM DATE: 01/28/2018 11:17 AM EDT AGE/SEX: 32 years / Male INDICATIONS: Altered mental status. CLINICAL DATA: This is the patient's initial encounter. Patient reports that signs and symptoms have been present for 1 day and indicates a pain score of Nonresponsive. MEDICAL/SURGICAL HISTORY: Gastroesophageal reflux disease. Pancreatitis. Non-responsive. RADIATION DOSE: 52.13 CTDI (mGy) COMPARISON: [facility] – [place], CT HEAD W/O CONTRAST, 12/06/2017. . TECHNIQUE: CT of the head without contrast. Using automated exposure control and adjustment of the mA and/or kV according to patient size, radiation dose was kept as low as reasonably achievable to ob tain optimal diagnostic quality images. DICOM format image data is available electronically for revi ew and comparison. FINDINGS: Cerebrum: The ventricles are normal for age. No evidence of midline shift, mass lesion, hemorrhage or acute infarction. No extraaxial fluid collections are seen. Posterior Fossa: The cerebellum and brainstem are intact. The 4th ventricle is midline. The cerebe llopontine angle is unremarkable. Extracranial: The visualized portion of the orbits is intact. Skull: The calvaria is intact. No evidence of skull fracture. CONCLUSION: 1. Negative CT Head non contrast. . Electronically signed by: Justice Dominguez MD 01/28/2018 11:21 AM EDT
--- NOTE | 2018-01-28 11:29 | CT ---
EXAM DATE: 01/28/2018 11:24 AM EDT AGE/SEX: 32 years / Male INDICATIONS: Respiratory distress. CLINICAL DATA: This is the patient's initial encounter. Patient reports that signs and symptoms have been present for 1 day and indicates a pain score of Nonresponsive. MEDICAL/SURGICAL HISTORY: Pancreatitis. Gastroesophageal reflux disease. Non-responsive. RADIATION DOSE: 9.22 CTDI (mGy) COMPARISON: C, CHEST 1V SINGLE AP, 01/28/2018. . TECHNIQUE: Multiple contiguous axial images were obtained through the chest without contrast. Image s were obtained in suspended respiration using multiple row detector helical technique. Using automa molly exposure control and adjustment of the mA and/or kV according to patient size, radiation dose was kept as low as reasonably achievable to obtain optimal diagnostic quality images. DICOM format imag e data is available electronically for review and comparison. FINDINGS: There is diffuse parenchymal consolidation in the left lung greatest in the left lower lobe. A few pa tchy parenchymal infiltrates are also seen in the right lower lobe. Endotracheal tube is noted. The o sseous structures are intact. No pleural or pericardial effusions are seen. CONCLUSION: 1. Bilateral consolidation most pronounced in the left lower lobe and left upper lobe posteriorly. Electronically signed by: Justice Dominguez MD 01/28/2018 11:28 AM EDT
[2018-01-28] MEDS ORDERED: Vancomycin Consult Pharmacy OTHER PRN (11:32)
--- NOTE | 2018-01-28 11:32 | CT ---
EXAM DATE: 01/28/2018 11:24 AM EDT AGE/SEX: 32 years / Male INDICATIONS: Evaluate for pancreatitis. Abdominal pain. Nausea. Vomiting. CLINICAL DATA: This is the patient's initial encounter. Patient reports that signs and symptoms have been present for 1 day and indicates a pain score of Nonresponsive. MEDICAL/SURGICAL HISTORY: Gastroesophageal reflux disease. Pancreatitis. None. RADIATION DOSE: 9.22 CTDI (mGy) ; Combined studies COMPARISON: [facility] [place] ABDOMEN & PELVIS W/O CONTRAST, 12/06/2017. . TECHNIQUE: Multiple contiguous axial images were obtained through the abdomen. Images were obtained using multiple row detector helical technique. Using automated exposure control and adjustment of the mA and/or kV according to patient size, radiation dose was kept as low as reasonably achievable to o btain optimal diagnostic quality images. DICOM format image data is available electronically for rev iew and comparison. FINDINGS: There is dense consolidation of the left lower lobe and patchy infiltrates in the lingula and right l ower lobe. No pleural or pericardial effusions. Liver demonstrates pneumobilia in the left lobe, norm al adrenals, spleen, kidneys, gallbladder. There is mild hazy increased attenuation of the peripancre atic fat near the pancreatic head which can be seen with acute pancreatitis. This is new from previou s study. No evidence of bowel obstruction. Urinary bladder is unremarkable. There is mild gaseous dis tention of the stomach. There is a central venous catheter in the right femoral and external iliac ve in. CONCLUSION: 1. There is a new finding of presumed pneumobilia in the left hepatic lobe. Is there a history of re cent instrumentation? Portal venous gas is not entirely excluded. 2. Mild induration of the peripancreatic fat proximally suggest mild acute pancreatitis. 3. Small fat-containing umbilical hernia. 4. Pulmonary consolidation is noted as above. 5. Mild gaseous distention of the stomach. Electronically signed by: Justice Dominguez MD 01/28/2018 11:31 AM EDT
[2018-01-28 11:42] LABS: Alanine Aminotransferase 79 U/L (12-78); Albumin 2.4 g/dL (3.4-5.0); Alkaline Phosphatase 131 U/L (45-117); Anion Gap 35 meq/L (5-15); Aspartate Aminotransferase 149 U/L (15-37); Blood Urea Nitrogen 22 mg/dL (7-18); Calcium 7.6 mg/dL (8.5-10.1); Carbon Dioxide 32.8 meq/L (21.0-32.0); Chloride 70 meq/L (98-107); Glomerular Filtration Rate 16 mL/min (>89); Magnesium 2.9 mg/dL (1.5-2.5); Phosphorus 7.2 mg/dL (2.5-4.9); Sodium 138 meq/L (136-145)
--- NOTE | 2018-01-28 11:42 | P.HPCC ---
History of Present Illness Service: Critical care medicine Primary Care Physician: UNKNOWN Chief Complaint: CODE BLUE History of Present Illness: This is a 32-year-old male. Admission 01/28/2018. Past medical history includes seizure disorder/noncompliant with levetiracetam, previous EtOH sober for 4 weeks, anorexia, gastroesophageal reflux disease and chronic pancreatitis. Patient presented to [facility] 01/28/2018 with a two-day history of nausea vomiting and diarrhea. Patient's mother/discussed at bedside stated she had just had a "stomach flu" which she has currently recovered. Mom states that the patient has become fairly dehydrated is been having some cramping of his hands. She is worried that he is getting dehydrated and his potassium might begin low. He was unable to tolerate a banana so she gave him some potassium pills p.o. which she also did not tolerate and threw up. Sober 4 weeks according to mother. Patient was noted to have a low potassium at 2.0. Creatinine of 4.0. This is in line with his previous hospitalizations for acute dehydration. Lipase was slightly elevated. Patient does have a history of seizure disorder which is not compliant with levetiracetam. ED physician was called into room because the RN believed he had a seizure. Patient was unresponsive. Mother states this was not like any seizure that she had seen. Pulses not palpable therefore CPR was initiated. Initial rhythm was V. fib. Patient received amiodarone, lidocaine, epinephrine, bicarbonate, magnesium during the 35 minute code with return of spontaneous circulation after 35 minutes. Pupils are about 9 mils bilaterally and 6. When I saw the patient patient was actively thrashing moving all 4 extremities spontaneously but not to command. Pupils are round 8 mm bilaterally and nonreactive. Brain CT revealed no acute findings. CT thorax revealed a left upper and lower lobe. CT abdomen pelvis pending at time of dictation. Likely, troponin pending. EKG revealed incomplete right bundle block with ST depression in the inferior and lateral leads. Cardiology consulted. They will evaluate after stat echocardiogram and troponins been completed. Potassium will be replaced pending BMP Review of Systems unobtainable due to endotracheal tube PMFSH - History History Provided By: Patient - Medical History Medical History: Medical History (Last Updated 01/28/18 @ 11:46 by Anand Bird MD) Depression GERD (gastroesophageal reflux disease) Alcohol abuse Hernia Pancreatitis Seizures - Surgical History Surgical History: Surgical History (Last Reviewed 01/28/18 @ 11:45 by Anand Bird MD) History of left inguinal hernia repair - Family History Family History: Family History (Last Updated 01/28/18 @ 11:46 by Anand Bird MD) Other Family history non-contributory - Tobacco History Second Hand Smoke Exposure: No Tobacco Use In Past 30 Days: No Smoking Status: Former smoker Tobacco Type: Cigarettes - Alcohol History How Often Do You Have a Drink Containing Alcohol: 2 to 4 times a month - Substance Use History Substance History: Active Abuse - Substance Use Type Alcohol Status: Early Remission Route Used: By Mouth Frequency: Was a heavy daily user, quit 4 weeks ago Reason for Use: Calm Down - Travel History History of Recent Travel: No Recent Travel in the [place] Within the Last 8 Weeks: No Recent Travel Out of the Country Within the Last 8 Weeks: No - Immunization History Tetanus Immunization: <5 Years Hx Influenza Vaccine This Season: Yes Medications and Allergies Active Medications: Active Medications Al Hydroxide/Mg Hydroxide (Milk Of Balta Liq) 30 ml PO Q12H PRN PRN Reason: Mild Constipation Albuterol (Albuterol Neb (Prn)) 2.5 mg NEB Q2HR NEB PRN PRN Reason: SHORTNESS OF BREATH/WHEEZING Albuterol (Duoneb Neb (Efren)) 1 ampul NEB Q4HR NEB EFREN Bisacodyl (Dulcolax Supp) 10 mg RECTAL DAILY PRN PRN Reason: SEVERE CONSITIPATION Chlorhexidine Gluconate (Peridex 0.12% Oral Kit) 15 ml OROPHARYNG BID@0800, 2000 EFREN Chlorhexidine Gluconate (Chlorhexidine 2% Cloth) 3 pack TOPICAL DAILY@0400 EFREN Stop: 02/03/18 03:59 Chlorhexidine Gluconate (Chlorhexidine 2% Cloth) 3 pack TOPICAL DAILY@0400 PRN PRN Reason: Extra cloth needed Stop: 02/03/18 03:59 Dextrose (D50w Vial) 50 ml IV.PUSH UNSCH PRN PRN Reason: PER HYPOGLYCEMIA PROTOCOL Glucagon (Glucagon Inj) 1 mg OTHER PRN PRN PRN Reason: for Hypoglycemia Protocol Vasopressin 40 unit/ Dextrose 100 mls @ 1.5 mls/hr IV.CONT TITRATE PRN; Protocol PRN Reason: Per Protocol Last Admin: 01/28/18 11:03 Dose: 0.01 units/min, 1.5 mls/hr Amiodarone HCl 450 mg/ (Dextrose) 250 mls @ 33.33 mls/hr IV.CONT TITRATE PRN; Protocol PRN Reason: Per Protocol Last Admin: 01/28/18 11:02 Dose: 1 mg/min, 33.33 mls/hr Fentanyl (Fentanyl 10 Mcg/Ml Premix Drip) 2,500 mcg in 250 mls @ 5 mls/hr IV.SIG TITRATE PRN; Protocol PRN Reason: Per Protocol Midazolam HCl (Versed Inj) 50 mg in 50 mls @ 2 mls/hr IV.CONT TITRATE PRN; Protocol PRN Reason: Per Protocol Sodium Chloride (Ns Inj) 1,000 mls @ 84 mls/hr IV.CONT .[id number] EFREN Multivitamins 10 ml/ Thiamine HCl 100 mg/ Folic Acid 1 mg/Sodium Chloride 511.2 mls @ 125 mls/hr IV.SIG Q24H EFREN Stop: 01/30/18 15:06 Levetiracetam 500 mg/ Sodium (Chloride) 105 mls @ 400 mls/hr IV.SIG Q12H EFREN Piperacillin/Tazobactam/Dextrose (Zosyn 2.25 Gm Premix) 50 mls @ 100 mls/hr IV.SIG Q8H EFREN Insulin Aspart (Novolog Insulin Correctional Sugar Inj) 0 unit SQ Q6HR EFREN; Protocol Lactulose (Lactulose Liq) 30 ml PO DAILY PRN PRN Reason: SEVERE CONSITIPATION Miscellaneous Information (Misc Rass Change Order) 1 each OTHER ONCE ONE Stop: 01/28/18 12:01 Ondansetron HCl (Zofran Inj) 4 mg IV.PUSH Q6H PRN PRN Reason: NAUSEA OR VOMITING Pantoprazole Sodium (Protonix Inj) 40 mg IV.PUSH DAILY [facility] Pharmacy Profile Note (Vancomycin Consult Pharmacy) 1 each OTHER UNSCH PRN PRN Reason: Pharmacy to dose Senna/Docusate Sodium (Hiral-Colace) 1 tab PO BID [facility] Sennosides (Senokot) 17.2 mg PO Q12H PRN PRN Reason: Moderate Constipation Sodium Chloride (Ns Flush) 2 ml IV.FLUSH PRN PRN PRN Reason: FLUSH AFTER USING IV ACCESS Last Admin: 01/28/18 10:33 Dose: 2 ml Sodium Chloride (Ns Flush) 2 ml IV.FLUSH BID ERFEN Sodium Chloride (Ns Flush) 2 ml IV.FLUSH PRN PRN PRN Reason: FLUSH AFTER USING IV ACCESS Terbutaline Sulfate (Brethine Inj) 1 mg SQ ONCE PRN PRN Reason: Extravasation Allergies Allergy/AdvReac Type Severity Reaction Status Date / Time Sulfa (Sulfonamide Allergy Severe hives Verified 10/11/17 07:56 Antibiotics) Home Medications Medication Instructions Recorded Confirmed Type levetiracetam [Keppra] 500 mg PO Q12H 01/28/18 01/28/18 History pantoprazole [Protonix] 40 mg PO BID 01/28/18 01/28/18 History quetiapine [Seroquel] 50 mg PO TID 01/28/18 01/28/18 History Results - Labs CBC & Chem 7: 01/28/18 10:40 01/28/18 08:32 Labs: Short CBC 01/28/18 01/28/18 Range/Units 08:32 10:40 WBC 8.2 24.9 H D (4.0-11.0) th/mm3 Hgb 16.7 12.4 L D (13.0-17.0) gm/dL Hct 46.7 38.4 L (39.0-51.0) % Plt Count 387 258 D (150-450) th/mm3 [facility] 01/28/18 08:32 Sodium 127 L Potassium 2.0 L* Chloride 56 L Carbon Dioxide Greater than 45.0 H BUN 24 H Creatinine 4.03 H Calcium 11.4 H Liver Function 01/28/18 Range/Units 08:32 Total Bilirubin 0.7 (0.2-1.0) mg/dL AST 60 H (15-37) U/L ALT 40 (12-78) U/L Alkaline Phosphatase 154 H (45-117) U/L Albumin 4.7 (3.4-5.0) g/dL - Imaging Impressions Abdomen/Pelvis CT 01/28/18 00:00 CONCLUSION: 1. There is a new finding of presumed pneumobilia in the left hepatic lobe. Is there a history of recent instrumentation? Portal venous gas is not entirely excluded. 2. Mild induration of the peripancreatic fat proximally suggest mild acute pancreatitis. 3. Small fat-containing umbilical hernia. 4. Pulmonary consolidation is noted as above. 5. Mild gaseous distention of the stomach. Chest CT 01/28/18 00:00 CONCLUSION: 1. Bilateral consolidation most pronounced in the left lower lobe and left upper lobe posteriorly. Chest X-Ray 01/28/18 10:15 CONCLUSION: Endotracheal tube as above. Left lung consolidation. Head CT 01/28/18 10:19 CONCLUSION: 1. Negative CT Head non contrast. . Exam Vital signs: Vital Signs 01/28/18 07:44 01/28/18 07:47 01/28/18 09:30 Temperature 97.5 F L Pulse Rate 109 H 97 H 162 H Respiratory Rate 20 18 Blood Pressure 143/93 H 143/106 H 106/66 Pulse Oximetry 96 96 100 01/28/18 09:45 01/28/18 10:00 01/28/18 10:15 Temperature Pulse Rate 58 L 88 82 Respiratory Rate 21 26 H Blood Pressure 122/74 102/67 102/54 L Pulse Oximetry 100 100 100 Intake & Output 01/27/18 01/28/18 01/28/18 18:59 06:59 18:59 Intake Total 1000 / 1000 Balance 1000 / 1000 Weight 70.307 kg Intake: IV 1000 / 1000 NS Inj 1,000 ML @ Wide Open IV. 1000 / 1000 SIG BOLUS ONE Rx#:[id number] - Constitutional no acute distress - Routine HEENT Exam Head: Present: normocephalic, atraumatic Eye: Present: EOMI, PERRL. Absent: normal accommodation, nystagmus ENT: Present: mucous membranes dry, oropharynx clear. Absent: mucous membranes moist - Routine Chest/Breast/Axilla Exam Chest wall: Absent: tenderness Breast: Absent: tenderness Axillae: Absent: lymphadenopathy - Routine Respiratory Exam Present: rhonchi, distant breath sounds. Absent: accessory muscle use - Routine Cardiovascular Exam Present: RRR, S1, S2. Absent: murmur, S3, S4 - Routine Abdominal Exam Present: soft, normoactive bowel sounds, tenderness, hernia. Absent: mass - Routine Extremities Exam Absent: cyanosis, clubbing, edema - Routine Skin Exam Present: intact - Routine Neurological Exam Present: CN II-XII intact. Absent: alert, oriented X3, sensory deficit, motor deficit - Detailed Neurological Exam Brainstem reflexes: Present corneal reflex, Present gag reflex, Present oculocephalic reflex, Absent decerebrate posturing, Absent decorticate posturing DTR: 2+: biceps (L), biceps (R), patellar (L), patellar (R) Septic Shock Reassessment Septic shock perfusion: reassessment completed Caprini VTE Risk Assessment Caprini VTE Risk Assessment: Moderate/High Risk (score >= 2) Caprini Risk Assessment Model: Point Value = 1 Point Value = 2 Point Value = 3 Point Value = 5 Age 41-60 Minor surgery BMI > 25 kg/m2 Swollen legs Varicose veins or History of unexplained or recurrent spontaneous Oral contraceptives or hormone replacement Sepsis (< 1 month) Serious lung disease, including pneumonia (< 1 month) Abnormal pulmonary function Acute myocardial infarction Congestive heart failure (< 1 month) History of inflammatory bowel disease Medical patient at bed rest Age 61-74 Arthroscopic surgery Major open surgery (> 45 min) Laparoscopic surgery (> 45 min) Malignancy Confined to bed (> 72 hours) Immobilizing plaster cast Central venous access Age >= 75 History of VTE Family history of VTE Factor V Leiden Prothrombin [id number] Lupus anticoagulant Anticardiolipin antibodies Elevated serum homocysteine Heparin-induced thrombocytopenia Other congenital or acquired thrombophilia Stroke (< 1 month) Elective arthroplasty Hip, pelvis, or leg fracture Acute spinal cord injury (< 1 month) Prophylaxis Regimen: Total Risk Factor Score Risk Level Prophylaxis Regimen 0-1 Low Early ambulation 2 Moderate Order ONE of the following: *Sequential Compression Device (SCD) *Heparin 5000 units SQ BID 3-4 Higher Order ONE of the following medications: *Heparin 5000 units SQ TID *Enoxaparin/Lovenox 40 mg SQ daily (WT < 150 kg, CrCl > 30 mL/min) *Enoxaparin/Lovenox 30 mg SQ daily (WT < 150 kg, CrCl > 10-29 mL/min) *Enoxaparin/Lovenox 30 mg SQ BID (WT < 150 kg, CrCl > 30 mL/min) AND/OR *Sequential Compression Device (SCD) 5 or more Highest Order ONE of the following medications: *Heparin 5000 units SQ TID (Preferred with Epidurals) *Enoxaparin/Lovenox 40 mg SQ daily (WT < 150 kg, CrCl > 30 mL/min) *Enoxaparin/Lovenox 30 mg SQ daily (WT < 150 kg, CrCl > 10-29 mL/min) *Enoxaparin/Lovenox 30 mg SQ BID (WT < 150 kg, CrCl > 30 mL/min) AND *Sequential Compression Device (SCD) Assessment and Plan - Assessment and Plan Plan: Neuro/Psych: Seizure disorder NOS History of EtOH sober 4 weeks History of anorexia/bulimia Currently a propofol/fentanyl drips for sedation/analgesia while in the Goal of RA SS -[address] brain 01/28 revealed no acute intracranial findings Loaded with levetiracetam 1 g in ED. Currently on 500 mg IV twice daily/home medication dosage Holding quetiapine 50 mg 3 times daily/home medication Thiamine 100 mg IV daily for EtOH use Neurochecks CV: IHCA V. fib arrest EKG revealed incomplete right bundle branch block/ST depression in the inferior/ lateral leads. Initial troponin pending. Currently on norepinephrine drip at 20 mcg/min. Currently been weaned down as patient currently hypertensive Dr. Main will evaluate and treat. Stat echocardiogram pending We will evaluate for target temperature management. In the ED prior to proceeding paralytic patient was spontaneously move all 4 extremities spontaneously but not to command quite vigorously Resp: Acute respiratory failure Left upper/lower lobe pulmonary infiltrates PRVC 16/550/1/5/100 Ventilator bundle Albuterol/ipratropium aerosols every 4 hours with albuterol aerosols every 2 hours as needed for dyspnea Follow-up on ABG/chest x-ray post intubation CT thorax revealed left upper/lower lobe infiltrates. GI: Elevated lipase/mild pancreatitis Left hepatic pneumobilia NGT to LIWS Pantoprazole for GI prophylaxis. On pantoprazole 40 mg daily at home. Docusate serum/senna 1 tablet twice daily for bowel regimen CT abdomen/pelvis revealed mild pancreatitis. Possible left hepatic pneumobilia. : Annce catheter for accurate I's and O's in a critically ill patient Endo: Sliding scale insulin with Accu-Cheks to maintain euglycemia aspart insulin every 6 hours Check TSH Renal: Acute kidney injury in the setting of chronic kidney disease stage II. Baseline creatinine around 1.2. Creatinine is currently 4.0. Monitor urine output Accurate I's and O's CT abdomen/pelvis revealed no hydronephrosis. Urine eosinophils and creatinine and sodium pending Heme: Leukocytosis Macrocytic anemia Mild coagulopathy Monitor CBC daily. Follow trends. Recheck coags in a.m. ID: Placed on piperacillin/tazobactam and vancomycin renally dosed Blood cultures 2, sputum, UA and influenza all pending FEN: Hypokalemia Replace electrolytes as clinically indicated. Repeat potassium after 80 mEq infused MSK: PT evaluate and treat Access -Right femoral CVL. We will place new central line Prophylaxis -GI-pantoprazole -DVT SCD/heparin subcu Discussed with mother at bedside. 35 minutes critical care time. Code Status: Full code Discussed Condition With: Dr. Krishnan Mother at bedside. Care plan discussed all questions answered.
[2018-01-28 11:50] LABS: Glucose,Random 536 mg/dL (74-106); Potassium 2.2 meq/L (3.5-5.1)
[2018-01-28 11:51] LABS: Troponin I 0.94 ng/mL (0.02-0.05)
[2018-01-28 11:58] LABS: Eosinophils 2 % (0-4); Lymphocytes 9 % (9-44); Metamyelocytes 1 % (0-1); Monocytes 6 % (0-8); Platelet Estimate Normal (Normal); Platelet Morphology Normal (Normal)
[2018-01-28] MEDS ORDERED: RASS Change Order OTHER ONE (12:00)
--- NOTE | 2018-01-28 13:01 | P.PCN ---
Date of procedure: 01/28/18 Pre-op diagnosis: V. fib arrest Post-op diagnosis: same Procedure: DATE: 01/28/2018 Quattro intravascular heat exchange catheter PLACEMENT: Left femoral vein. Ultrasound-guided INDICATION: Targeted temperature monitoring CONSENT Informed consent for procedure was obtained from mother. DESCRIPTION OF THE PROCEDURE The patient was placed in supine position. The skin was cleansed with Chloraprep. Additional barrier precautions included large sterile drape, sterile gloves, sterile gown, face mask, and hat. 1 % lidocaine was used for local anesthesia. Under direct ultrasound guidance and on initial attempt, the vein was accessed with an introducer needle. The guide wire was advanced and the tract was dilated 2. Using Seldinger technique a 9.3 [place] 45 cm Quatro catheter 3 lm intravascular heat exchange catheter was advanced to a depth of 45 ] centimeters. The guide wire was removed. All ports had good return of dark venous blood and flushed easily with saline. The intravascular heat exchange catheter line was secured with 2.0 silk. A sterile dressing with antibiotic disc was applied. ESTIMATED BLOOD LOSS: Minimal COMPLICATIONS: No apparent complications.
[2018-01-28] MEDS ORDERED: Sodium Bicarbonate 8.4% Inj 50 MEQ/50 ML Syringe IV.CONT ONE (13:05)
[2018-01-28] MEDS ORDERED: Atropine Inj 1 MG/10 ML Syringe IV.PUSH ONE (13:05)
[2018-01-28] MEDS ORDERED: Magnesium Sulfate Inj 40 MEQ/10 ML Vial IV.SIG ONE (13:05)
[2018-01-28] MEDS ORDERED: Norepinephrine Inj 4 MG/4 ML Ampul IV.CONT ONE (13:05)
[2018-01-28] MEDS ORDERED: Lidocaine 2% 100 MG/5 ML Syringe IV.PUSH ONE (13:05)
[2018-01-28] MEDS ORDERED: Potassium Chlor 40 mEq Premix 40 MEQ/100 ML PIGGYBACK IV.SIG ONE (13:30)
[2018-01-28] MEDS ORDERED: Vancomycin Inj 1,250 MG in Sodium Chlor 0.9% Inj 250 ML IV.SIG ONE (14:00)
[2018-01-28] MEDS: Oral Hygiene Kit OROPHARYNG SCH ×2 (14:27→17:20)
[2018-01-28 14:36] LABS: ABG Base Excess 20.7 mmol/L (-2-2); ABG PCO2 58 mmHg (38-42); ABG PO2 264 mmHG (61-120)
[2018-01-28] MEDS ORDERED: fentaNYL Citrate Inj 100 MCG/2 ML Ampul IV.PUSH ONE (14:45)
[2018-01-28] MEDS ORDERED: Mix all IV Meds in NS MISCELLANE SCH (15:00)
[2018-01-28] MEDS: Insulin NovoLOG Aspart Correctional Sugar Inj SQ SCH ×2 (15:07→18:57)
[2018-01-28] MEDS: Piperacil/Tazo 2.25 GM Premix 50 ML IV.SIG SCH ×2 (15:07→21:12)
[2018-01-28] MEDS: Multivitamin Inj 10 ML, Thiamine Inj 100 MG, Folic Acid Inj 1 MG in Sodium Chlor 0.9% I... IV.SIG SCH (15:08)
[2018-01-28] MEDS: Sod Chloride 0.9% Inj 1,000 ML IV.CONT SCH (15:08)
[2018-01-28] MEDS: Midazolam 50 MG/50 ML Inj 50 MG/50 ML BAG IV.CONT PRN (15:25)
[2018-01-28] MEDS ORDERED: Vasopressin Inj 40 UNIT in Sodium Chlor 0.9% Inj 98 ML IV.CONT PRN (15:30)
[2018-01-28] MEDS ORDERED: Hypromellose 0.3% Opth Gel 10 GM Bottle EACH EYE PRN (15:30)
[2018-01-28] MEDS: fentaNYL 10 mcg/mL Premix Drip 2,500 MCG/250 ML BAG IV.SIG PRN (15:42)
--- NOTE | 2018-01-28 16:29 | P.CONCA ---
History of Present Illness Service: Cardiology Consult date: 01/28/18 Requesting Physician: Anand Bird Reason for Consult: ventricular fibrillation cardiac arrest, estimate depression. Primary Care Provider: UNKNOWN Chief Complaint: CODE BLUE History of Present Illness: 32-year-old male, With no significant cardiovascular disease, presented with a two-day history of nausea vomiting and diarrhea. information obtained by the emergency physician from patient's mother indicated the patient has become fairly dehydrated is been having some cramping of his hands. She is worried that he is getting dehydrated and his potassium might begin low. He was unable to tolerate a banana so she gave him some potassium pills p.o. which she also did not tolerate and threw up. Sober 4 weeks according to mother. during his ER stay, he was found unresponsive and pulseless. CPR was initiated. Initial rhythm was V. fib. Patient received amiodarone, lidocaine, epinephrine, bicarbonate, magnesium during the 35 minute code with return of spontaneous circulation after [address] revealed no acute findings. EKG revealed incomplete right bundle block with ST depression in the inferior and lateral leads. he was intubated, and transferred to ICU, Currently under hypothermia protocol. Past medical history includes seizure disorder/noncompliant with levetiracetam , previous EtOH sober for 4 weeks, anorexia, gastroesophageal reflux disease and chronic pancreatitis. Review of Systems unobtainable due to endotracheal tube PMFSH - History History Provided By: Patient - Medical History Medical History: Medical History (Last Updated 01/28/18 @ 11:46 by Anand Bird MD) Depression GERD (gastroesophageal reflux disease) Alcohol abuse Hernia Pancreatitis Seizures - Surgical History Surgical History: Surgical History (Last Reviewed 01/28/18 @ 11:45 by Anand Bird MD) History of left inguinal hernia repair - Family History Family History: Family History (Last Updated 01/28/18 @ 11:46 by Anand Bird MD) Other Family history non-contributory - Tobacco History Second Hand Smoke Exposure: No Tobacco Use In Past 30 Days: No Smoking Status: Former smoker Tobacco Type: Cigarettes - Alcohol History How Often Do You Have a Drink Containing Alcohol: 2 to 4 times a month - Substance Use History Substance History: Active Abuse - Substance Use Type Alcohol Status: Early Remission Route Used: By Mouth Frequency: Was a heavy daily user, quit 4 weeks ago Reason for Use: Calm Down - Travel History History of Recent Travel: No Recent Travel in the [place] Within the Last 8 Weeks: No Recent Travel Out of the Country Within the Last 8 Weeks: No - Immunization History Tetanus Immunization: <5 Years Hx Influenza Vaccine This Season: Yes Medications and Allergies Active Medications: Active Medications Acetaminophen (Tylenol Liq) 650 mg NG/OG Q6H PRN PRN Reason: SHIVERING Al Hydroxide/Mg Hydroxide (Milk Of Magnesia Liq) 30 ml PO Q12H PRN PRN Reason: Mild Constipation Albuterol (Albuterol Neb (Prn)) 2.5 mg NEB Q2HR NEB PRN PRN Reason: SHORTNESS OF BREATH/WHEEZING Albuterol (Duoneb Neb (Efren)) 1 ampul NEB Q4HR NEB EFREN Last Admin: 01/28/18 16:06 Dose: 1 ampul Artificial Tears (Genteal Severe Dry Eye Relief 0.3% Opth Gel) 1 drops EACH EYE Q4H PRN PRN Reason: SEE LABEL COMMENTS Bisacodyl (Dulcolax Supp) 10 mg RECTAL DAILY PRN PRN Reason: SEVERE CONSITIPATION Chlorhexidine Gluconate (Peridex 0.12% Oral Kit) 15 ml OROPHARYNG BID@0800, 2000 [facility] Chlorhexidine Gluconate (Chlorhexidine 2% Cloth) 3 pack TOPICAL DAILY@0400 [facility] Stop: 02/03/18 03:59 Chlorhexidine Gluconate (Chlorhexidine 2% Cloth) 3 pack TOPICAL DAILY@0400 PRN PRN Reason: Extra cloth needed Stop: 02/03/18 03:59 Dextrose (D50w Vial) 50 ml IV.PUSH UNSCH PRN PRN Reason: PER HYPOGLYCEMIA PROTOCOL Glucagon (Glucagon Inj) 1 mg OTHER PRN PRN PRN Reason: for Hypoglycemia Protocol Heparin Sodium (Porcine) (Heparin Inj) 5,000 units SQ Q12HR [facility] Sodium Chloride (Ns Inj) 1,000 mls @ 84 mls/hr IV.CONT .[id number] [facility] Last Admin: 01/28/18 15:08 Dose: 84 mls/hr Multivitamins 10 ml/ Thiamine HCl 100 mg/ Folic Acid 1 mg/Sodium Chloride 511.2 mls @ 125 mls/hr IV.SIG Q24H [facility] Stop: 01/30/18 15:06 Last Admin: 01/28/18 15:08 Dose: 125 mls/hr Levetiracetam 500 mg/ Sodium (Chloride) 105 mls @ 400 mls/hr IV.SIG Q12H EFREN Piperacillin/Tazobactam/Dextrose (Zosyn 2.25 Gm Premix) 50 mls @ 100 mls/hr IV.SIG Q8H EFREN Last Admin: 01/28/18 15:07 Dose: 100 mls/hr Potassium Chloride (Kcl 40 Meq Premix Inj) 40 meq in 100 mls @ 25 mls/hr IV.SIG ONCE ONE Stop: 01/28/18 17:29 Last Admin: 01/28/18 15:08 Dose: 25 mls/hr Midazolam HCl (Versed Inj) 50 mg in 50 mls @ 2 mls/hr IV.CONT TITRATE PRN; Protocol PRN Reason: SEDATION Last Titration: 01/28/18 15:42 Dose: 4 mg/hr, 4 mls/hr Fentanyl (Fentanyl 10 Mcg/Ml Premix Drip) 2,500 mcg in 250 mls @ 5 mls/hr IV.SIG TITRATE PRN; Protocol PRN Reason: SEDATION Last Admin: 01/28/18 15:42 Dose: 50 mcg/hr, 5 mls/hr Amiodarone HCl 450 mg/ Sodium (Chloride) 250 mls @ 33.33 mls/hr IV.CONT TITRATE PRN; Protocol PRN Reason: Per Protocol Vasopressin 40 unit/ Sodium (Chloride) 100 mls @ 1.5 mls/hr IV.CONT TITRATE PRN ; Protocol PRN Reason: Per Protocol Insulin Aspart (Novolog Insulin Correctional Sugar Inj) 0 unit SQ Q6HR EFREN; Protocol Last Admin: 01/28/18 15:07 Dose: 12 unit Lactulose (Lactulose Liq) 30 ml PO DAILY PRN PRN Reason: SEVERE CONSITIPATION Lorazepam (Ativan Inj) 1 mg IV.PUSH Q1H PRN PRN Reason: SEIZURES Meperidine HCl (Demerol Inj) 25 mg IM Q2H PRN PRN Reason: SHIVERING Midazolam HCl (Versed Inj) 1 mg IV.PUSH Q15M PRN PRN Reason: SEE LABEL COMMENTS Miscellaneous Information (Misc Mix All Iv Meds In Ns) 1 each MISCELLANE [facility] Ondansetron HCl (Zofran Inj) 4 mg IV.PUSH Q6H PRN PRN Reason: NAUSEA OR VOMITING Pantoprazole Sodium (Protonix Inj) 40 mg IV.PUSH DAILY [facility] Pharmacy Profile Note (Vancomycin Consult Pharmacy) 1 each OTHER UNSCH PRN PRN Reason: Pharmacy to dose Senna/Docusate Sodium (Hiral-Colace) 1 tab PO BID [facility] Sennosides (Senokot) 17.2 mg PO Q12H PRN PRN Reason: Moderate Constipation Sodium Chloride (Ns Flush) 2 ml IV.FLUSH BID EFREN Sodium Chloride (Ns Flush) 2 ml IV.FLUSH PRN PRN PRN Reason: FLUSH AFTER USING IV ACCESS Terbutaline Sulfate (Brethine Inj) 1 mg SQ ONCE PRN PRN Reason: Extravasation Allergies Allergy/AdvReac Type Severity Reaction Status Date / Time Sulfa (Sulfonamide Allergy Severe hives Verified 10/11/17 07:56 Antibiotics) Home Medications Medication Instructions Recorded Confirmed Type levetiracetam [Keppra] 500 mg PO Q12H 01/28/18 01/28/18 History pantoprazole [Protonix] 40 mg PO BID 01/28/18 01/28/18 History quetiapine [Seroquel] 50 mg PO TID 01/28/18 01/28/18 History Exam Vital signs: Vital Signs 01/28/18 07:44 01/28/18 07:47 01/28/18 09:30 Temperature 97.5 F L Pulse Rate 109 H 97 H 162 H Respiratory Rate 20 18 Blood Pressure 143/93 H 143/106 H 106/66 Pulse Oximetry 96 96 100 01/28/18 09:45 01/28/18 10:00 01/28/18 10:15 Temperature Pulse Rate 58 L 88 82 Respiratory Rate 21 26 H Blood Pressure 122/74 102/67 102/54 L Pulse Oximetry 100 100 100 01/28/18 11:31 01/28/18 11:33 01/28/18 11:40 Temperature Pulse Rate 112 H 114 H 109 H Respiratory Rate 21 18 Blood Pressure 179/120 H 170/106 H Pulse Oximetry 100 100 01/28/18 11:49 01/28/18 11:50 01/28/18 12:00 Temperature Pulse Rate 104 H 103 H 105 H Respiratory Rate 18 18 18 Blood Pressure 142/103 H 140/95 H 136/100 H Pulse Oximetry 100 100 100 01/28/18 12:10 01/28/18 12:20 01/28/18 12:30 Temperature Pulse Rate 112 H 99 H 97 H Respiratory Rate 30 H 18 18 Blood Pressure 160/130 H 122/72 121/78 Pulse Oximetry 100 100 100 01/28/18 12:40 01/28/18 12:50 01/28/18 13:00 Temperature Pulse Rate 98 H 98 H 92 H Respiratory Rate 18 18 18 Blood Pressure 126/85 123/80 108/77 Pulse Oximetry 100 91 L 90 L 01/28/18 13:06 01/28/18 13:10 01/28/18 13:20 Temperature 96.3 F L Pulse Rate 98 H 94 H Respiratory Rate 18 18 Blood Pressure 126/80 122/78 Pulse Oximetry 98 95 99 01/28/18 13:31 01/28/18 13:40 01/28/18 13:50 Temperature 96.1 F L 95.7 F L 95.5 F L Pulse Rate 97 H 92 H 96 H Respiratory Rate 18 18 18 Blood Pressure 148/100 H 147/103 H 152/102 H Pulse Oximetry 100 100 99 01/28/18 14:00 01/28/18 14:11 01/28/18 14:20 Temperature 95.4 F L 95.5 F L 95.5 F L Pulse Rate 91 H 96 H 98 H Respiratory Rate 0 L 28 H 22 Blood Pressure 130/92 H 161/103 H 153/103 H Pulse Oximetry 100 100 99 01/28/18 14:30 01/28/18 14:41 01/28/18 14:50 Temperature 95.5 F L 95.5 F L 95.4 F L Pulse Rate 93 H 97 H 92 H Respiratory Rate 18 33 H 32 H Blood Pressure 148/101 H 179/88 H 153/78 H Pulse Oximetry 100 98 94 L 01/28/18 15:00 01/28/18 15:10 01/28/18 15:20 Temperature 95.4 F L 95.4 F L 95.4 F L Pulse Rate 91 H 91 H 93 H Respiratory Rate 26 H 33 H 29 H Blood Pressure 146/91 H 137/97 H 129/87 Pulse Oximetry 98 98 100 01/28/18 15:31 01/28/18 16:07 Temperature 95.4 F L Pulse Rate 85 81 Respiratory Rate 40 H 16 Blood Pressure 120/61 Pulse Oximetry 96 100 Intake & Output 01/27/18 01/28/18 01/28/18 18:59 06:59 18:59 Intake Total 1100 / 1100 Balance 1100 / 1100 Weight 70.307 kg Intake: IV 1100 / 1100 Magnesium Sulfate Inj 2 GM In 100 / 100 NS Inj 96 ML @ 50 mls/hr IV.SIG ONCE ONE Rx#:[id number] NS Inj 1,000 ML @ Wide Open IV. 1000 / 1000 SIG BOLUS ONE Rx#:[id number] - Constitutional Comments: Intubated - Routine HEENT Exam Head: Present: normocephalic, atraumatic - Routine Neck Exam Present: normal carotid upstroke. Absent: JVD, carotid bruit - Routine Respiratory Exam Present: CTA bilaterally - Routine Cardiovascular Exam Present: RRR, S1, S2. Absent: murmur, gallop - Routine Abdominal Exam Present: soft, normoactive bowel sounds - Routine Skin Exam Present: intact, warm - Routine Neurological Exam Intubated Results 01/28/18 10:40 01/28/18 10:40 Cardiac Enzymes 01/28/18 01/28/18 Range/Units 08:32 10:40 AST 60 H 149 H (15-37) U/L Troponin I 0.94 H* (0.02-0.05) ng/mL Coagulation 01/28/18 Range/Units 10:40 PT 15.2 H (9.8-11.6) sec APTT 25.4 (24.3-30.1) sec CBC 01/28/18 01/28/18 Range/Units 08:32 10:40 WBC 8.2 24.9 H D (4.0-11.0) th/mm3 RBC 4.72 3.57 L (4.50-5.90) mil/mm3 Hgb 16.7 12.4 L D (13.0-17.0) gm/dL Hct 46.7 38.4 L (39.0-51.0) % Plt Count 387 258 D (150-450) th/mm3 Neut # (Auto) 5.5 18.5 H (1.8-7.7) th/mm3 Lymph # (Auto) 1.3 5.0 H (1.0-4.8) th/mm3 Drew # (Auto) 1.4 H 1.1 H (0.0-0.9) th/mm3 Eos # (Auto) 0.0 0.1 (0.0-0.4) th/mm3 Baso # (Auto) 0.0 0.1 (0.0-0.2) th/mm3 Comprehensive Metabolic Panel 01/28/18 01/28/18 Range/Units 08:32 10:40 Sodium 127 L 138 D (136-145) meq/L Potassium 2.0 L* 2.2 L* (3.5-5.1) meq/L Chloride 56 L 70 L D (98-107) meq/L Carbon Dioxide Greater than 45.0 H 32.8 H D (21.0-32.0) meq/L BUN 24 H 22 H (7-18) mg/dL Creatinine 4.03 H 4.42 H (0.60-1.30) mg/dL Calcium 11.4 H 7.6 L D (8.5-10.1) mg/dL AST 60 H 149 H (15-37) U/L ALT 40 79 H (12-78) U/L Alkaline Phosphatase 154 H 131 H (45-117) U/L Total Protein 8.8 H 5.0 L D (6.4-8.2) g/dL Albumin 4.7 2.4 L D (3.4-5.0) g/dL Intake and Output 01/28/18 01/28/18 01/28/18 06:59 14:59 22:59 Intake Total 1000 / 1000 100 / 100 Balance 1000 / 1000 100 / 100 Intake: IV 1000 / 1000 100 / 100 Magnesium Sulfate Inj 2 GM In 100 / 100 NS Inj 96 ML @ 50 mls/hr IV.SIG ONCE ONE Rx#:[id number] NS Inj 1,000 ML @ Wide Open IV. 1000 / 1000 SIG BOLUS ONE Rx#:[id number] Other: Weight 70.307 kg Patient Weight 01/29/18 06:59 Weight 70.307 kg Assessment and Plan - Assessment (1) Cardiac arrest with ventricular fibrillation Code(s): I46.9 - Cardiac arrest, cause unspecified; I49.01 - Ventricular fibrillation Status: Acute (2) Hypokalemia due to inadequate potassium intake Code(s): E87.6 - Hypokalemia Status: Acute (3) Seizure disorder Code(s): G40.909 - Epilepsy, unspecified, not intractable, without status epilepticus Status: Acute - Plan 1. Ventricular fib arrest EKG revealed iRBBB with /ST depression in the inferior/lateral leads. Hypothermic protocol for 24 hours Severe hypokalemia K lever 2.2 on admission IV Amiodarone Echo ordered Troponin 0.94 IV Heparin for ACS 2. Leukocytosis, WBC 24K On ABx 3. Severe hypokinesis, likely due to lack of PO intake and GI loss from diarrhea 4.hx of Seizure, not compliant with medications. UMKUMIUT in progress 5. Chronic pancreatitis, elevated lipase in 600s 6. hx of Alcoholism. Will also check UDS.
--- NOTE | 2018-01-28 16:32 | ECHRPT ---
Indication: SOB CONCLUSIONS Normal left ventricular size. Wall thickness is normal. The left ventricular systolic function is severely reduced with an estimated ejection fraction in th e range of 20-25%. The right ventricular systoilc function is mildly decreased. Trace mitral valve regurgitation. BP: / HR: Rhythm: Technical Quality: FINDINGS LEFT VENTRICLE Normal left ventricular size. Wall thickness is normal. The left ventricular systolic function is severely reduced with an estimated ejection fraction in th e range of 20-25%. RIGHT VENTRICLE The right ventricular systoilc function is mildly decreased. LEFT ATRIUM The left atrial size is normal. RIGHT ATRIUM The right atrial size is normal. ATRIAL SEPTUM Normal atrial septal thickness without atrial level shunting by limited color doppler interrogation. AORTA The aortic root and proximal ascending aorta are normal in size on limited imaging. MITRAL VALVE Trace mitral valve regurgitation. AORTIC VALVE Trileaflet aortic valve. No aortic valve stenosis or regurgitation. TRICUSPID VALVE Structurally normal tricuspid valve. No tricuspid valve stenosis or regurgitation. PULMONARY VALVE The pulmonary valve is not well visualized. VESSELS The inferior vena cava is normal in size. PERICARDIUM No pericardial effusion. Juan George MD, FACC, [facility] [place] (Electronically Signed) Final Date:28 January 2018 16:31
[2018-01-28 16:42] LABS: Amphetamine Screen,Urine Neg (Neg); Barbiturate Screen,Urine Neg (Neg); Cannabinoid Screen,Urine Neg (Neg); Cocaine Screen,Urine Neg (Neg)
[2018-01-28 16:50] LABS: Opiate Screen,Urine Neg (Neg)
--- NOTE | 2018-01-28 16:54 | ECG ---
Date Performed: 01/28/2018 Time Performed: 10:32:43 PTAGE: 32 years EKG: THERE IS A SUPRAVENTRICULAR RHYTHM WITH RATE OF 67 WITH NO DEFINITE P-WAVES PRESENT THERE I S MARKED ST DEPRESSION WITH T-WAVE INVERSIONS SEEN ANTEROLATERALLY AND THE ST DEPRESSION BOTH INFERIO RLY AND ACROSS THE PRECORDIUM FROM V3-V6. THESE CHANGES MOST COMPATIBLE WITH DIFFUSE SUBENDOCARDIAL I SCHEMIA OR INJURY. CLINICAL CORRELATION AND FOLLOW UP TRACINGS ARE STRONGLY RECOMMENDED. Compared to previous tracing, these changes are all new. ABNORMAL ECG PREVIOUS TRACING : 12/18/2017 22.22 DOCTOR: Philip Nielsen Interpretating Date/Time 01/28/2018 16:52:36
[2018-01-28] MEDS: Norepinephrine Inj 16 MG in Sodium Chlor 0.9% Inj 234 ML IV.CONT PRN ×3 (17:27→23:41)
[2018-01-28] MEDS ORDERED: Heparin 10,000 UNITS/10 ML Vial (for IV use) IV.PUSH STA (18:23)
[2018-01-28 18:35] LABS: Calcium 7.7 mg/dL (8.5-10.1); Carbon Dioxide 41.5 meq/L (21.0-32.0); Chol/HDL Ratio 2.89 Ratio; HDL Cholesterol 58.7 mg/dL (40.0-60.0)
[2018-01-28 18:39] LABS: Potassium 2.2 meq/L (3.5-5.1); Troponin I 31.3 ng/mL (0.02-0.05)
[2018-01-28 18:58] LABS: Creatine Kinase MB 110.1 ng/mL (0.5-3.6)
[2018-01-28 19:03] LABS: CKMB Percent 6.8 % (0.0-4.0)
[2018-01-28] MEDS: Amiodarone Inj 450 MG in Sodium Chlor 0.9% Inj 241 ML IV.CONT PRN (19:14)
[2018-01-28 19:19] LABS: Activated Partial Thrombo Time 21.5 sec (24.3-30.1); INR 1.3 Ratio; Prothrombin Time 12.7 sec (9.8-11.6)
[2018-01-28] MEDS: Chlorhexidine 0.12% Oral Kit 15 ML UDC OROPHARYNG SCH (21:11)
[2018-01-28] MEDS: Heparin - SQ 10,000 UNITS/ML Vial SQ SCH (21:11)
[2018-01-28] MEDS: Senna/Docusate Sodium 8.6/50 MG Tablet PO SCH (21:12)
[2018-01-28] MEDS: Potassium Chlor 40 mEq Premix 40 MEQ/100 ML PIGGYBACK IV.SIG SCH (21:31)
--- NOTE | 2018-01-28 22:54 | MG ---
cc: Dennis Sanchez MD, PhD DATE OF STUDY: 01/28/2018 TEST NUMBER: [id number] TECHNIQUE: A 17-channel EEG. DESCRIPTION: Background rhythm reveals generalized slowing in the theta range roughly 6 Hz, amplitude of 20-30 microvolts. At times, there approaches an alpha rhythm. There are no lateralizing features. There were no epileptiform discharges present. INTERPRETATION: Abnormal study consistent with a [id number] encephalopathy. Dennis Sanchez MD, PhD PHIL/lh , 04:42 PM , 04:46 PM
[2018-01-29] MEDS: Dextrose 50% in Water 50 ML Vial IV.PUSH PRN ×3 (00:40→23:37)
[2018-01-29] MEDS: Oral Hygiene Kit OROPHARYNG SCH ×4 (01:13→16:14)
[2018-01-29] MEDS: Potassium Chlor 40 mEq Premix 40 MEQ/100 ML PIGGYBACK IV.SIG SCH ×4 (01:13→16:34)
[2018-01-29] MEDS: Insulin NovoLOG Aspart Correctional Sugar Inj SQ SCH ×5 (01:13→20:12)
[2018-01-29] MEDS ORDERED: Chlorhexidine Gluconate 2% 1 Pack (2 Cloths) TOPICAL PRN (04:00)
[2018-01-29 04:15] LABS: Alanine Aminotransferase 81 U/L (12-78); Albumin 2.5 g/dL (3.4-5.0); Alkaline Phosphatase 79 U/L (45-117); Aspartate Aminotransferase 320 U/L (15-37); Blood Urea Nitrogen 25 mg/dL (7-18); Calcium 7.6 mg/dL (8.5-10.1); Chloride 83 meq/L (98-107); Glomerular Filtration Rate 17 mL/min (>89); Glucose,Random 58 mg/dL (74-106); Magnesium 2.8 mg/dL (1.5-2.5); Phosphorus 0.4 mg/dL (2.5-4.9); Sodium 142 meq/L (136-145)
[2018-01-29] MEDS: Sod Chloride 0.9% Inj 1,000 ML IV.CONT SCH ×2 (04:19→16:11)
[2018-01-29 04:36] LABS: Anion Gap 14 meq/L (5-15)
[2018-01-29 04:47] LABS: Potassium 1.9 meq/L (3.5-5.1)
[2018-01-29] MEDS: Piperacil/Tazo 2.25 GM Premix 50 ML IV.SIG SCH ×3 (05:28→21:19)
[2018-01-29] MEDS: Chlorhexidine Gluconate 2% 1 Pack (2 Cloths) TOPICAL SCH (05:28)
[2018-01-29 05:29] LABS: ABG PCO2 38 mmHg (38-42); ABG PO2 94 mmHG (61-120)
[2018-01-29 05:32] LABS: Baso % (Auto) 0.3 % (0.0-2.0); Eos # (Auto) 0.1 th/mm3 (0.0-0.4); Eos % (Auto) 0.3 % (0.0-4.0); Hematocrit 35.8 % (39.0-51.0); Hemoglobin 12.1 gm/dL (13.0-17.0); Lymph # (Auto) 1.8 th/mm3 (1.0-4.8); Lymph % (Auto) 11.4 % (9.0-44.0); Mean Corpuscular HGB Conc 33.8 % (32.0-36.0); Mean Corpuscular Hemoglobin 34.4 pg (27.0-34.0); Mean Corpuscular Volume 101.8 fL (80.0-100.0); Mono # (Auto) 0.5 th/mm3 (0.0-0.9); Mono % (Auto) 3.2 % (0.0-8.0); Neut # (Auto) 13.1 th/mm3 (1.8-7.7); Neut % (Auto) 84.8 % (16.0-70.0); Platelet Count 257 th/mm3 (150-450); Red Blood Count 3.52 mil/mm3 (4.50-5.90); Red Cell Distribution Width 15.1 % (11.6-17.2); White Blood Count 15.4 th/mm3 (4.0-11.0)
[2018-01-29 05:50] LABS: Activated Partial Thrombo Time 22.9 sec (24.3-30.1); INR 1.2 Ratio
[2018-01-29] MEDS ORDERED: POTASSIUM PHOSPHATE IV.SIG ONE (07:00)
[2018-01-29] MEDS ORDERED: SODIUM CHLOR 0.9% IV.SIG ONE (07:00)
[2018-01-29] MEDS ORDERED: Potassium Phosphate Inj 30 MMOL in Sodium Chlor 0.9% Inj 250 ML IV.SIG ONE (09:00)
[2018-01-29] MEDS: Heparin - SQ 10,000 UNITS/ML Vial SQ SCH ×2 (09:45→21:19)
[2018-01-29] MEDS: Pantoprazole Inj 40 MG Vial IV.PUSH SCH (09:45)
[2018-01-29] MEDS: Chlorhexidine 0.12% Oral Kit 15 ML UDC OROPHARYNG SCH ×2 (09:47→21:19)
[2018-01-29] MEDS: Senna/Docusate Sodium 8.6/50 MG Tablet PO SCH ×2 (09:47→21:19)
--- NOTE | 2018-01-29 09:47 | XR ---
EXAM DATE: 01/29/2018 9:30 AM EDT AGE/SEX: 32 years / Male INDICATIONS: Central line placement. CLINICAL DATA: This is the patient's initial encounter. Patient reports that signs and symptoms have been present for 1 day and indicates a pain score of Nonresponsive. MEDICAL/SURGICAL HISTORY: Non-responsive. Non-responsive. COMPAR[place]: [facility] [place] 01/28/2018. . FINDINGS: Endotracheal tube tip at the inferior margin the clavicles. Right subclavian line tip overlies the ex pected location of the SVC/right atrial junction. There are bilateral parenchymal infiltrates most pr onounced in the left lung diffusely, and right lower lobe. Cardiac silhouette is normal. Osseous stru ctures are intact. I do not see a pneumothorax. Enteric tube tip courses beneath the diaphragm. CONCLUSION: Right subclavian line as above. Electronically signed by: Jutsice Dominguez MD 01/29/2018 9:45 AM EDT
[2018-01-29] MEDS: fentaNYL 10 mcg/mL Premix Drip 2,500 MCG/250 ML BAG IV.SIG PRN ×2 (09:50→17:45)
[2018-01-29] MEDS: Amiodarone Inj 450 MG in Sodium Chlor 0.9% Inj 241 ML IV.CONT PRN (09:54)
[2018-01-29] MEDS: DOBUTAMINE 500 MG/250 ML IV.CONT SCH (09:56)
[2018-01-29 10:24] LABS: CKMB Percent 1.1 % (0.0-4.0); Creatine Kinase MB 17.7 ng/mL (0.5-3.6)
[2018-01-29] MEDS: Multivitamin Inj 10 ML, Thiamine Inj 100 MG, Folic Acid Inj 1 MG in Sodium Chlor 0.9% I... IV.SIG SCH (11:21)
[2018-01-29 13:04] LABS: ABG Base Excess 17.4 mmol/L (-2-2); ABG PCO2 55 mmHg (38-42); ABG PO2 84 mmHG (61-120)
[2018-01-29] MEDS ORDERED: Aspirin 300 MG Supp RECTAL ONE (13:07)
--- NOTE | 2018-01-29 13:29 | P.PNCC ---
Subjective Subjective Remarks/Hospital Course: Hospital Course: This is a 32-year-old male. Admission 01/28/2018. Past medical history includes seizure disorder/noncompliant with levetiracetam, previous EtOH sober for 4 weeks, anorexia, gastroesophageal reflux disease and chronic pancreatitis. Patient presented to [facility] 01/28/2018 with a two-day history of nausea vomiting and diarrhea. Patient's mother/discussed at bedside stated she had just had a "stomach flu" which she has currently recovered. Mom states that the patient has become fairly dehydrated is been having some cramping of his hands. She is worried that he is getting dehydrated and his potassium might begin low. He was unable to tolerate a banana so she gave him some potassium pills p.o. which she also did not tolerate and threw up. Sober 4 weeks according to mother. Patient was noted to have a low potassium at 2.0. Creatinine of 4.0. This is in line with his previous hospitalizations for acute dehydration. Lipase was slightly elevated. Patient does have a history of seizure disorder which is not compliant with levetiracetam. ED physician was called into room because the RN believed he had a seizure. Patient was unresponsive. Mother states this was not like any seizure that she had seen. Pulses not palpable therefore CPR was initiated. Initial rhythm was V. fib. Patient received amiodarone, lidocaine, epinephrine, bicarbonate, magnesium during the 35 minute code with return of spontaneous circulation after 35 minutes. Pupils are about 9 mils bilaterally and 6. When I saw the patient patient was actively thrashing moving all 4 extremities spontaneously but not to command. Pupils are round 8 mm bilaterally and nonreactive. Brain CT revealed no acute findings. CT thorax revealed a left upper and lower lobe. CT abdomen pelvis pending at time of dictation. Likely, troponin pending. EKG revealed incomplete right bundle block with ST depression in the inferior and lateral leads. Cardiology consulted. They will evaluate after stat echocardiogram and troponins been completed. Potassium will be replaced pending BMP Subjective: 01/29: persistently in shock. following commands this AM. trop uptrended overnight and now > 40. on levo @ 10, vasopressin. bedside echo with persistence of his global severe LV systolic dysfunction. IVC dilated without respiratory variation. initially attempted therapeutic hypothermia, but became arrhythmogenic and neurologic exam improved and now following commands, so hypothermia aborted. persistently hypokalemic and hypophosphatemic this AM. in addition, remains with severe metabolic alkalosis. Objective Vital Signs / I&O: Vital Signs 01/28/18 13:10 01/28/18 13:20 01/28/18 13:31 Temperature 35.7 C L 35.6 C L Pulse Rate 98 H 94 H 97 H Respiratory Rate 18 18 18 Blood Pressure 126/80 122/78 148/100 H Pulse Oximetry 95 99 100 01/28/18 13:40 01/28/18 13:50 01/28/18 14:00 Temperature 35.4 C L 35.3 C L 35.2 C L Pulse Rate 92 H 96 H 91 H Respiratory Rate 18 18 0 L Blood Pressure 147/103 H 152/102 H 130/92 H Pulse Oximetry 100 99 100 01/28/18 14:11 01/28/18 14:20 01/28/18 14:30 Temperature 35.3 C L 35.3 C L 35.3 C L Pulse Rate 96 H 98 H 93 H Respiratory Rate 28 H 22 18 Blood Pressure 161/103 H 153/103 H 148/101 H Pulse Oximetry 100 99 100 01/28/18 14:41 01/28/18 14:50 01/28/18 15:00 Temperature 35.3 C L 35.2 C L 35.2 C L Pulse Rate 97 H 92 H 91 H Respiratory Rate 33 H 32 H 26 H Blood Pressure 179/88 H 153/78 H 146/91 H Pulse Oximetry 98 94 L 98 01/28/18 15:10 01/28/18 15:20 01/28/18 15:31 Temperature 35.2 C L 35.2 C L 35.2 C L Pulse Rate 91 H 93 H 85 Respiratory Rate 33 H 29 H 40 H Blood Pressure 137/97 H 129/87 120/61 Pulse Oximetry 98 100 96 01/28/18 16:00 01/28/18 16:01 01/28/18 16:02 Temperature 35.0 C L 35.0 C L 35.0 C L Pulse Rate 80 80 80 Respiratory Rate 16 16 16 Blood Pressure 66/42 L 62/41 L Pulse Oximetry 100 100 100 01/28/18 16:07 01/28/18 16:09 01/28/18 16:11 Temperature 34.9 C L 34.9 C L 34.9 C L Pulse Rate 81 81 81 Respiratory Rate 16 16 16 Blood Pressure 59/36 L 63/40 L 65/47 L Pulse Oximetry 100 100 100 01/28/18 16:16 01/28/18 16:22 01/28/18 16:30 Temperature 34.8 C L 34.8 C L 34.9 C L Pulse Rate 82 82 81 Respiratory Rate 16 16 16 Blood Pressure 78/56 L 76/53 L 72/50 L Pulse Oximetry 100 100 100 01/28/18 16:31 01/28/18 16:36 01/28/18 16:40 Temperature 34.9 C L 34.8 C L 34.8 C L Pulse Rate 81 81 80 Respiratory Rate 16 16 16 Blood Pressure 73/51 L 82/52 L 77/50 L Pulse Oximetry 100 100 100 01/28/18 16:45 01/28/18 17:00 01/28/18 17:15 Temperature 34.8 C L 34.7 C L 34.7 C L Pulse Rate 80 80 81 Respiratory Rate 16 16 16 Blood Pressure 75/52 L 76/53 L 77/51 L Pulse Oximetry 100 100 100 01/28/18 17:30 01/28/18 17:50 01/28/18 18:00 Temperature 34.7 C L 34.8 C L 34.7 C L Pulse Rate 81 81 77 Respiratory Rate 16 16 Blood Pressure 77/50 L 108/55 L 84/58 L Pulse Oximetry 100 100 100 01/28/18 18:15 01/28/18 18:30 01/28/18 20:00 Temperature 34.7 C L 34.7 C L Pulse Rate 78 78 79 Respiratory Rate 16 16 Blood Pressure 84/60 L 87/62 L Pulse Oximetry 100 100 90 L 01/28/18 20:03 01/28/18 23:01 01/28/18 23:12 Temperature 35.9 C L Pulse Rate 80 95 H 93 H Respiratory Rate 17 24 16 Blood Pressure 100/67 Pulse Oximetry 94 L 98 01/28/18 23:55 01/29/18 00:00 01/29/18 00:45 Temperature 37.9 C H Pulse Rate 94 H Respiratory Rate 16 16 Blood Pressure 86/56 L 73/52 L Pulse Oximetry 98 99 01/29/18 01:00 01/29/18 01:30 01/29/18 02:00 Temperature 37.7 C H 37.6 C H 37.7 C H Pulse Rate 80 83 90 Respiratory Rate 17 16 16 Blood Pressure 85/55 L 90/65 L Pulse Oximetry 97 100 100 01/29/18 03:00 01/29/18 03:45 01/29/18 03:53 Temperature 37.8 C H Pulse Rate 85 83 Respiratory Rate 16 16 16 Blood Pressure 98/66 L Pulse Oximetry 100 99 01/29/18 04:00 01/29/18 04:31 01/29/18 04:45 Temperature 37.8 C H 37.8 C H 37.8 C H Pulse Rate 87 82 82 Respiratory Rate 17 17 20 Blood Pressure 88/62 L 102/75 Pulse Oximetry 99 100 100 01/29/18 05:00 01/29/18 05:15 01/29/18 05:30 Temperature 37.9 C H 37.9 C H 37.9 C H Pulse Rate 80 79 82 Respiratory Rate 18 17 17 Blood Pressure 104/79 106/76 106/76 Pulse Oximetry 100 100 100 01/29/18 05:45 01/29/18 06:00 01/29/18 06:16 Temperature 37.9 C H 37.9 C H 37.9 C H Pulse Rate 75 72 75 Respiratory Rate 19 25 H 18 Blood Pressure 110/80 109/74 107/67 Pulse Oximetry 95 99 100 01/29/18 06:35 01/29/18 06:45 01/29/18 07:00 Temperature 37.9 C H 37.9 C H 38.0 C H Pulse Rate 78 78 72 Respiratory Rate 16 19 16 Blood Pressure 108/72 95/70 L 100/78 Pulse Oximetry 100 100 100 01/29/18 07:15 01/29/18 07:30 01/29/18 07:45 Temperature 38.0 C H 38.1 C H 38.1 C H Pulse Rate 69 68 68 Respiratory Rate 18 14 14 Blood Pressure 101/81 109/79 106/73 Pulse Oximetry 99 99 100 01/29/18 08:00 01/29/18 08:15 01/29/18 08:30 Temperature 38.2 C H 38.2 C H 38.2 C H Pulse Rate 67 68 68 Respiratory Rate 14 23 12 Blood Pressure 106/75 106/80 106/80 Pulse Oximetry 100 99 99 01/29/18 08:47 01/29/18 09:00 01/29/18 09:01 Temperature 38.2 C H 38.2 C H 38.2 C H Pulse Rate 68 67 68 Respiratory Rate 12 15 12 Blood Pressure 102/73 110/67 Pulse Oximetry 98 96 84 L 01/29/18 09:15 01/29/18 09:30 01/29/18 09:46 Temperature 38.2 C H 38.2 C H 38.3 C H Pulse Rate 69 70 70 Respiratory Rate 21 12 12 Blood Pressure 102/71 101/78 108/80 Pulse Oximetry 77 L 100 100 01/29/18 10:00 01/29/18 10:15 01/29/18 10:30 Temperature 38.3 C H 38.4 C H 38.4 C H Pulse Rate 70 67 79 Respiratory Rate 12 17 12 Blood Pressure 104/74 117/83 126/82 Pulse Oximetry 93 L 100 100 01/29/18 10:45 01/29/18 11:00 01/29/18 11:15 Temperature 38.2 C H 38.0 C H 37.7 C H Pulse Rate 80 83 86 Respiratory Rate 12 12 12 Blood Pressure 127/84 128/86 123/78 Pulse Oximetry 96 93 L 98 01/29/18 11:30 01/29/18 11:45 01/29/18 12:00 Temperature 37.6 C H 37.6 C H 37.4 C Pulse Rate 86 84 82 Respiratory Rate 13 12 13 Blood Pressure 116/79 114/75 114/77 Pulse Oximetry 97 94 L 96 01/29/18 12:12 01/29/18 12:15 Temperature 37.3 C Pulse Rate 83 Respiratory Rate 12 13 Blood Pressure 114/76 Pulse Oximetry 93 L 93 L Intake & Output 01/28/18 01/29/18 01/29/18 18:59 06:59 18:59 Intake Total 2149 3128.7 / 3128.7 705 / 705 Output Total 100 / 100 100 / 100 Balance 2049 3028.7 / 3028.7 705 / 705 Weight 70.307 kg 75 kg Intake: IV 2149 3128.7 / 3128.7 705 / 705 Cordarone Inj 450 MG In D5W Inj 250 / 250 241 ML @ 1 MG/MIN 33.33 mls/hr IV.CONT TITRATE PRN Rx#: [id number] Cordarone Inj 450 MG In NS Inj 250 / 250 241 ML @ 1 MG/MIN 33.33 mls/hr IV.CONT TITRATE PRN Rx#: [id number] Levophed Inj 16 MG In NS Inj 500 / 500 234 ML @ 2 MCG/MIN 1.87 mls/hr IV.CONT TITRATE PRN Rx#: [id number] NS Inj 1,000 ML @ 84 mls/hr IV. 1000 / 1000 CONT .[id number] GERMAINE Rx#:[id number] Magnesium Sulfate Inj 2 GM In 100 / 100 NS Inj 96 ML @ 50 mls/hr IV.SIG ONCE ONE Rx#:[id number] MVI-12 Inj 10 ML Thiamine Inj 511.2 / 511.2 100 MG Folvite Inj 1 MG In NS Inj 500 ML @ 125 mls/hr IV.SIG Q24H GERMAINE Rx#:[id number] Zosyn 2.25 GM Premix 50 ML @ 50 / 50 100 / 100 100 mls/hr IV.SIG Q8H GERMAINE Rx#: [id number] KCl 40 mEq Premix Inj 40 meq In 300 / 300 100 / 100 100 ml @ 25 mls/hr IV.SIG Q4H GERMAINE Rx#:[id number] NS Inj 1,000 ML @ Wide Open IV. 1999 SIG BOLUS ONE Rx#:[id number] Vancomycin Inj 1,250 MG In NS 262.5 / 262.5 Inj 250 ML @ 250 mls/hr IV.SIG ONCE ONE Rx#:[id number] fentaNYL 10 mcg/mL Premix Drip 250 / 250 2,500 mcg In 250 ml @ 50 MCG/HR 5 mls/hr IV.SIG TITRATE PRN Rx #:[id number] Keppra Inj 500 MG In NS Inj 100 105 / 105 105 / 105 ML @ 400 mls/hr IV.SIG Q12H GERMAINE Rx#:[id number] Output: Urine Amount (Catheter) 100 / 100 100 / 100 Coude 100 / 100 100 / 100 Result Diagrams: 01/29/18 05:06 01/29/18 02:03 Objective Remarks: GENERAL: Young male, lying in bed, intubated, sedated, critically ill HEENT: Normocephalic. Atraumatic. Pupils equal, round, reactive, conjugate. Mucous membranes are moist NECK: Trachea is midline. There is no JVD. CHEST: Intubated. PRVC. FiO2 60%. PEEP of 5. Equal chest rise. SPO2 96%. CARDIOVASCULAR: Normal rate, regular rhythm. Sinus. Amiodarone infusion at 0.5 mg/min. Norepinephrine at 10 mcg/min. Vasopressin at 0.04 U/min. CVP 9. ABDOMEN: Soft, nontender, nondistended. No guarding. MUSCULOSKELETAL: Pulses 2+. No peripheral edema. Left groin cooling catheter in place, site clean dry and intact. NEUROLOGICAL: RASS -2. Wakes up and follows commands in all 4 extremities. No focal deficits. Assessment and Plan - Assessment and Plan Plan: Assessment: 32-year-old male with history of EtOH abuse and chronic pancreatitis who presents with severe hypokalemia, dehydration, and cardiac arrest. Patient has persistence of his severe LV systolic dysfunction and is in persistent cardiogenic shock. Will start inotropic therapy with dobutamine. Continue to trend lactates. Trend troponins. V. fib cardiac arrest is concerning for coronary disease, although patient is quite young. Will start heparin drip and aspirin until coronary artery disease can be definitively ruled out, we will trend troponins. Aggressively replace electrolytes and we will have to start IV Diamox to help with his metabolic alkalosis, having now ensure that the patient is intravascularly volume replete. Remains very critically ill with multiple organ systems are life-threatening at this time. Neuro/Psych: Seizure disorder NOS History of EtOH sober 4 weeks History of anorexia/bulimia Currently a versed/fentanyl drips for sedation/analgesia Goal of RASS -[address] brain 01/28 revealed no acute intracranial findings Loaded with levetiracetam 1 g in ED. Currently on 500 mg IV twice daily/home medication dosage Holding quetiapine 50 mg 3 times daily/home medication Thiamine 100 mg IV daily for EtOH use frequent Neuro checks send drug screen, alcohol level, aspirin level, tylenol level. CV: In-hospital cardiac arrest V. fib arrest Cardiogenic Shock Severe LV systolic dysfunction EKG revealed incomplete right bundle branch block/ST depression in the inferior/ lateral leads. troponins uptrending, now > 40. continue to trend. currently on norepinephrine and vasopressin. start dobutamine at 5 mcg/kg/min. goal map > [address] Main with cardiology consulted. echo 01/28: severe LV systolic dysfunction, EF 20-25%. mildly depressed RV function. no valvular lesions. trend troponins start heparin drip ASA daily Resp: Acute hypoxic respiratory failure Left upper/lower lobe pulmonary infiltrates Ventilator bundle Albuterol/ipratropium aerosols every 4 hours with albuterol aerosols every 2 hours as needed for dyspnea AM abg AM CXR CT thorax revealed left upper/lower lobe infiltrates. no SBT while in shock. GI: Elevated lipase/mild pancreatitis Left hepatic pneumobilia history of chronic pancreatitis NGT to [facility] Pantoprazole for GI prophylaxis. On pantoprazole 40 mg daily at home. Docusate serum/senna 1 tablet twice daily for bowel regimen CT abdomen/pelvis revealed mild pancreatitis. Possible left hepatic pneumobilia. : Acute kidney injury Machado catheter for accurate I's and O's in a critically ill patient send urine sodium, cr, eos send urine drug screen Endo: Sliding scale insulin with Accu-Cheks to maintain euglycemia aspart insulin every 6 hours Renal: Acute kidney injury in the setting of chronic kidney disease stage II. Baseline creatinine around 1.2. Creatinine is currently 4 Monitor urine output Accurate I's and O's CT abdomen/pelvis revealed no hydronephrosis. Heme: Leukocytosis Macrocytic anemia Mild coagulopathy Monitor CBC daily. Follow trends. ID: Placed on piperacillin/tazobactam and vancomycin renally dosed Blood cultures 2, sputum, UA and influenza all NGTD FEN: severe life-threatening Hypokalemia severe life-threatening hypophosphatemia severe metabolic alkalosis Replace electrolytes as clinically indicated. trend electrolytes alkalosis could be from chronic vomiting? otherwise unclear etiology. difficult to control and causing significant alkalemia. now that intravascular volume is replete, will start acetazolamide 500mg iv q8h x 3 doses in an attempt to normalize serum pH. MSK: PT evaluate and treat Access -Right femoral cooling catheter placed 01/28: will discontinue - 01/29 right radial art line - 01/29 right SC TLC with CVP monitoring - machado: needs to keep for hourly outputs. Prophylaxis -GI-pantoprazole -DVT SCD/heparin subcu This patient remains critically ill with one or more organ systems which are or may become a threat to life. I have spent in excess of 79 minutes discontinuously in the care and management of this patient. This time is exclusive of procedures, and includes, but is not limited to, evaluation of the patient, review of the medical record, discussions with family, consultants, nursing staff, or respiratory therapy, and documentation in the medical record.
--- NOTE | 2018-01-29 13:30 | P.PCN ---
Date of procedure: 01/29/18 Pre-op diagnosis: In hospital cardiac arrest Post-op diagnosis: same Procedure: Procedure: Arterial Line Placement Right radial arterial line Diagnosis: Cardiogenic shock Indications: Need for beat to beat hemodynamic monitoring Consent: Emergent Description of the Procedure: The right wrist was prepped and draped sterilely. 1% lidocaine was used for local anesthesia. The pulse was located and a needle was advanced into the artery. A 20 gauge, 12 cm catheter was advanced into the artery using a modified Seldinger technique. The catheter was sutured to the skin and a sterile dressing was applied. The catheter was connected to a pressure transducer and an arterial waveform was noted. There were no immediate complications noted. There was minimal EBL. I personally performed the procedure.
--- NOTE | 2018-01-29 13:31 | P.PCN ---
Date of procedure: 01/29/18 Pre-op diagnosis: In hospital cardiac arrest Post-op diagnosis: same Procedure: Central Line Procedure Note Right subclavian 7 Dominican 20 cm triple-lumen catheter Diagnosis: Cardiogenic shock Indications: Need for central pressure monitoring Consent: Emergent Anesthesia: Versed IV, 1% lidocaine locally Description of the Procedure: The patient was placed in the supine, mild- Trendelenburg position. The area was prepped and draped sterilely. A 19g needle was inserted under negative pressure aspiration and dark venous blood was obtained. A guidewire was inserted easily without resistance. A small incision was made using a #11 blade. Using a modified Seldinger technique, the dilator and 7 Dominican, 20 cm catheter were advanced over the guidewire without resistance. All ports were aspirated and flushed, and had brisk blood return. The line was secured at the skin using a non-suture StatLock device. A Biopatch and Transparent sterile dressing were applied. There were no immediate complications noted. There was minimal EBL. The patient tolerated the procedure well. Ultrasound guidance was not used for this procedure A Chest x-ray has been ordered. I personally performed the procedure.
[2018-01-29] MEDS: Heparin Drip 25,000 UNIT/250 ML BAG IV.CONT PRN (14:44)
[2018-01-29] MEDS: Midazolam 50 MG/50 ML Inj 50 MG/50 ML BAG IV.CONT PRN ×3 (14:50→19:39)
--- NOTE | 2018-01-29 17:12 | P.PNCA ---
Subjective Interval history: Stable, no further ventricular arrhythmia Physical Exam Vital signs: Vital Signs 01/28/18 17:15 01/28/18 17:30 01/28/18 17:50 Temperature 94.5 F L 94.5 F L 94.6 F L Pulse Rate 81 81 81 Respiratory Rate 16 16 Blood Pressure 77/51 L 77/50 L 108/55 L Pulse Oximetry 100 100 100 01/28/18 18:00 01/28/18 18:15 01/28/18 18:30 Temperature 94.5 F L 94.5 F L 94.5 F L Pulse Rate 77 78 78 Respiratory Rate 16 16 16 Blood Pressure 84/58 L 84/60 L 87/62 L Pulse Oximetry 100 100 100 01/28/18 20:00 01/28/18 20:03 01/28/18 23:01 Temperature 96.6 F L Pulse Rate 79 80 95 H Respiratory Rate 17 24 Blood Pressure 100/67 Pulse Oximetry 90 L 94 L 98 01/28/18 23:12 01/28/18 23:55 01/29/18 00:00 Temperature 100.2 F H Pulse Rate 93 H 94 H Respiratory Rate 16 16 16 Blood Pressure 86/56 L Pulse Oximetry 98 99 01/29/18 00:45 01/29/18 01:00 01/29/18 01:30 Temperature 99.9 F H 99.7 F H Pulse Rate 80 83 Respiratory Rate 17 16 Blood Pressure 73/52 L 85/55 L Pulse Oximetry 97 100 01/29/18 02:00 01/29/18 03:00 01/29/18 03:45 Temperature 99.9 F H 100.0 F H Pulse Rate 90 85 83 Respiratory Rate 16 16 16 Blood Pressure 90/65 L 98/66 L Pulse Oximetry 100 100 01/29/18 03:53 01/29/18 04:00 01/29/18 04:31 Temperature 100.0 F H 100.0 F H Pulse Rate 87 82 Respiratory Rate 16 17 17 Blood Pressure 88/62 L Pulse Oximetry 99 99 100 01/29/18 04:45 01/29/18 05:00 01/29/18 05:15 Temperature 100.0 F H 100.2 F H 100.2 F H Pulse Rate 82 80 79 Respiratory Rate 20 18 17 Blood Pressure 102/75 104/79 106/76 Pulse Oximetry 100 100 100 01/29/18 05:30 01/29/18 05:45 01/29/18 06:00 Temperature 100.2 F H 100.2 F H 100.2 F H Pulse Rate 82 75 72 Respiratory Rate 17 19 25 H Blood Pressure 106/76 110/80 109/74 Pulse Oximetry 100 95 99 01/29/18 06:16 01/29/18 06:35 01/29/18 06:45 Temperature 100.2 F H 100.2 F H 100.2 F H Pulse Rate 75 78 78 Respiratory Rate 18 16 19 Blood Pressure 107/67 108/72 95/70 L Pulse Oximetry 100 100 100 01/29/18 07:00 01/29/18 07:15 01/29/18 07:30 Temperature 100.4 F H 100.4 F H 100.6 F H Pulse Rate 72 69 68 Respiratory Rate 16 18 14 Blood Pressure 100/78 101/81 109/79 Pulse Oximetry 100 99 99 01/29/18 07:45 01/29/18 08:00 01/29/18 08:15 Temperature 100.6 F H 100.8 F H 100.8 F H Pulse Rate 68 67 68 Respiratory Rate 14 14 23 Blood Pressure 106/73 106/75 106/80 Pulse Oximetry 100 100 99 01/29/18 08:30 01/29/18 08:47 01/29/18 09:00 Temperature 100.8 F H 100.8 F H 100.8 F H Pulse Rate 68 68 67 Respiratory Rate 12 12 15 Blood Pressure 106/80 102/73 Pulse Oximetry 99 98 96 01/29/18 09:01 01/29/18 09:15 01/29/18 09:30 Temperature 100.8 F H 100.8 F H 100.8 F H Pulse Rate 68 69 70 Respiratory Rate 12 21 12 Blood Pressure 110/67 102/71 101/78 Pulse Oximetry 84 L 77 L 100 01/29/18 09:46 01/29/18 10:00 01/29/18 10:15 Temperature 100.9 F H 100.9 F H 101.1 F H Pulse Rate 70 70 67 Respiratory Rate 12 12 17 Blood Pressure 108/80 104/74 117/83 Pulse Oximetry 100 93 L 100 01/29/18 10:30 01/29/18 10:45 01/29/18 11:00 Temperature 101.1 F H 100.8 F H 100.4 F H Pulse Rate 79 80 83 Respiratory Rate 12 12 12 Blood Pressure 126/82 127/84 128/86 Pulse Oximetry 100 96 93 L 01/29/18 11:15 01/29/18 11:30 01/29/18 11:45 Temperature 99.9 F H 99.7 F H 99.7 F H Pulse Rate 86 86 84 Respiratory Rate 12 13 12 Blood Pressure 123/78 116/79 114/75 Pulse Oximetry 98 97 94 L 01/29/18 12:00 01/29/18 12:12 01/29/18 12:15 Temperature 99.3 F 99.1 F Pulse Rate 82 83 Respiratory Rate 13 12 13 Blood Pressure 114/77 114/76 Pulse Oximetry 96 93 L 93 L 01/29/18 12:30 01/29/18 12:45 01/29/18 13:00 Temperature 99.1 F 98.8 F 98.8 F Pulse Rate 82 83 82 Respiratory Rate 12 12 12 Blood Pressure 111/77 110/75 109/72 Pulse Oximetry 96 95 96 01/29/18 13:15 01/29/18 13:30 01/29/18 13:45 Temperature 98.6 F 98.4 F 98.4 F Pulse Rate 81 80 79 Respiratory Rate 12 12 12 Blood Pressure 107/72 110/75 108/72 Pulse Oximetry 96 97 96 01/29/18 14:00 01/29/18 14:15 01/29/18 14:30 Temperature 98.4 F 98.2 F 98.2 F Pulse Rate 84 83 83 Respiratory Rate 13 12 14 Blood Pressure 117/78 109/68 102/65 Pulse Oximetry 97 94 L 94 L 01/29/18 14:45 01/29/18 14:57 01/29/18 15:00 Temperature 98.2 F 98.2 F Pulse Rate 80 79 79 Respiratory Rate 12 12 14 Blood Pressure 101/65 106/69 Pulse Oximetry 100 98 98 01/29/18 15:15 01/29/18 15:30 01/29/18 15:45 Temperature 98.2 F 98.2 F 97.5 F L Pulse Rate 75 76 79 Respiratory Rate 12 16 18 Blood Pressure 104/68 113/73 109/71 Pulse Oximetry 100 88 L 99 01/29/18 16:00 Temperature 97.7 F Pulse Rate 77 Respiratory Rate 12 Blood Pressure 108/70 Pulse Oximetry 99 Intake & Output 01/28/18 01/29/18 01/29/18 18:59 06:59 18:59 Intake Total 2150 / 2150 3128.7 / 3128.7 1626.2 / 1626.2 Output Total 100 / 100 100 / 100 Balance 2049 3028.7 / 3028.7 1626.2 / 1626.2 Weight 70.307 kg 75 kg Intake: IV 2150 / 2150 3128.7 / 3128.7 1626.2 / 1626.2 Cordarone Inj 450 MG In D5W Inj 250 / 250 241 ML @ 1 MG/MIN 33.33 mls/hr IV.CONT TITRATE PRN Rx#: [id number] Cordarone Inj 450 MG In NS Inj 250 / 250 241 ML @ 1 MG/MIN 33.33 mls/hr IV.CONT TITRATE PRN Rx#: [id number] Levophed Inj 16 MG In NS Inj 500 / 500 234 ML @ 2 MCG/MIN 1.87 mls/hr IV.CONT TITRATE PRN Rx#: [id number] NS Inj 1,000 ML @ 84 mls/hr IV. 1000 / 1000 CONT .[id number] GERMIANE Rx#:[id number] Magnesium Sulfate Inj 2 GM In 100 / 100 NS Inj 96 ML @ 50 mls/hr IV.SIG ONCE ONE Rx#:[id number] MVI-12 Inj 10 ML Thiamine Inj 511.2 / 511.2 511.2 / 511.2 100 MG Folvite Inj 1 MG In NS Inj 500 ML @ 125 mls/hr IV.SIG Q24H GERMAINE Rx#:[id number] Zosyn 2.25 GM Premix 50 ML @ 50 / 50 100 / 100 50 / 50 100 mls/hr IV.SIG Q8H GERMAINE Rx#: [id number] KCl 40 mEq Premix Inj 40 meq In 300 / 300 200 / 200 100 ml @ 25 mls/hr IV.SIG Q4H GERMAINE Rx#:[id number] Potassium Phosphate Inj 30 MMOL 260 / 260 In NS Inj 250 ML @ 43.333 mls/ hr IV.SIG ONCE ONE Rx#:[id number] NS Inj 1,000 ML @ Wide Open IV. 1999 / 1999 SIG BOLUS ONE Rx#:[id number] Vancomycin Inj 1,250 MG In NS 262.5 / 262.5 Inj 250 ML @ 250 mls/hr IV.SIG ONCE ONE Rx#:[id number] fentaNYL 10 mcg/mL Premix Drip 250 / 250 2,500 mcg In 250 ml @ 50 MCG/HR 5 mls/hr IV.SIG TITRATE PRN Rx #:[id number] Keppra Inj 500 MG In NS Inj 100 105 / 105 105 / 105 ML @ 400 mls/hr IV.SIG Q12H GERMAINE Rx#:[id number] Output: Urine Amount (Catheter) 100 / 100 100 / 100 Coude 100 / 100 100 / 100 - Constitutional Comments: sedated, on ventilator - Routine HEENT Exam Head: Present: normocephalic, atraumatic - Routine Neck Exam Absent: JVD, carotid bruit - Routine Respiratory Exam Present: patient mechanically ventilated, CTA bilaterally - Routine Cardiovascular Exam Present: RRR, S1, S2. Absent: murmur - Routine Abdominal Exam Present: soft - Routine Extremities Exam Present: normal capillary refill - Urinary Catheter Management Coude Cath placed during this visit: yes Reason for continuing: Hourly intake/output Insertion date: 01/28/18 Insertion time: 13:15 Assessment and Plan - Assessment (1) Cardiac arrest with ventricular fibrillation Code(s): I46.9 - Cardiac arrest, cause unspecified; I49.01 - Ventricular fibrillation Status: Acute (2) Hypokalemia due to inadequate potassium intake Code(s): E87.6 - Hypokalemia Status: Acute (3) Seizure disorder Code(s): G40.909 - Epilepsy, unspecified, not intractable, without status epilepticus Status: Acute - Plan 1. Ventricular fib arrest, likely due to severe cardiomyopathy and hypokalemia. EKG revealed iRBBB with /ST depression in the inferior/lateral leads. Hypothermic protocol for 24 hours Severe hypokalemia K lever 2.2 on admission, replaced IV Amiodarone Echo 01/28/18: LVEF 20-25%. Troponin 0.94 IV Heparin for ACS When renal function improves, will do CTA coronary. 2 .hx of Seizure, not compliant with medications. [place] in progress 3. Chronic pancreatitis, elevated lipase in 600s 4. hx of Alcoholism. Negative UDS
[2018-01-30] MEDS: Propofol 1000 mg/100 ml Inj 1,000 MG/100 ML BOTTLE IV.CONT PRN ×3 (00:02→17:41)
[2018-01-30] MEDS: Dextrose 50% in Water 50 ML Vial IV.PUSH PRN ×2 (00:02→04:15)
[2018-01-30] MEDS: Insulin NovoLOG Aspart Correctional Sugar Inj SQ SCH ×6 (01:05→20:09)
[2018-01-30] MEDS: Oral Hygiene Kit OROPHARYNG SCH ×3 (01:05→16:15)
[2018-01-30] MEDS: Midazolam 50 MG/50 ML Inj 50 MG/50 ML BAG IV.CONT PRN ×3 (01:11→12:13)
[2018-01-30] MEDS: Amiodarone Inj 450 MG in Sodium Chlor 0.9% Inj 241 ML IV.CONT PRN ×2 (02:09→20:09)
[2018-01-30] MEDS: Chlorhexidine Gluconate 2% 1 Pack (2 Cloths) TOPICAL SCH (03:39)
[2018-01-30 03:56] LABS: Activated Partial Thrombo Time 68.3 sec (24.3-30.1); INR 1.1 Ratio; Prothrombin Time 11.3 sec (9.8-11.6)
[2018-01-30] MEDS: Piperacil/Tazo 2.25 GM Premix 50 ML IV.SIG SCH ×3 (04:07→20:56)
[2018-01-30] MEDS: Potassium Chlor 20 mEq Premix 20 MEQ/100 ML PIGGYBACK IV.SIG SCH ×4 (04:07→11:00)
[2018-01-30] MEDS: Sod Chloride 0.9% Inj 1,000 ML IV.CONT SCH ×2 (04:23→14:48)
[2018-01-30] MEDS: Dextrose 5% in Water Inj 1,000 ML IV.SIG SCH (04:49)
[2018-01-30] MEDS: fentaNYL 10 mcg/mL Premix Drip 2,500 MCG/250 ML BAG IV.SIG PRN ×2 (05:12→21:52)
[2018-01-30 05:18] LABS: ABG PCO2 63 mmHg (38-42); ABG PO2 154 mmHG (61-120)
[2018-01-30 05:21] LABS: Hemoglobin 9.3 gm/dL (13.0-17.0); Mean Corpuscular HGB Conc 33.2 % (32.0-36.0); Mean Corpuscular Hemoglobin 35.2 pg (27.0-34.0); Mean Platelet Volume 8.9 fL (7.0-11.0); Platelet Count 144 th/mm3 (150-450); Red Blood Count 2.64 mil/mm3 (4.50-5.90); Red Cell Distribution Width 15.3 % (11.6-17.2); White Blood Count 13.8 th/mm3 (4.0-11.0)
[2018-01-30 05:38] LABS: Albumin 1.9 g/dL (3.4-5.0); Calcium 5.8 mg/dL (8.5-10.1); Carbon Dioxide 35.9 meq/L (21.0-32.0); Magnesium 2.2 mg/dL (1.5-2.5); Phosphorus 5.3 mg/dL (2.5-4.9); Total Protein 4.5 g/dL (6.4-8.2); Vancomycin,Random 17.4 Comment
[2018-01-30 05:50] LABS: Potassium 2.4 meq/L (3.5-5.1)
[2018-01-30 05:51] LABS: Troponin I 10.1 ng/mL (0.02-0.05)
--- NOTE | 2018-01-30 06:00 | XR ---
EXAM DATE: 01/30/2018 5:50 AM EDT AGE/SEX: 32 years / Male INDICATIONS: Shortness of breath. CLINICAL DATA: This is the patient's subsequent encounter. Patient reports that signs and symptoms h ave been present for 2 days and indicates a pain score of Nonresponsive. MEDICAL/SURGICAL HISTORY: Non-responsive. Non-responsive. COMPARISON: [facility] [place], CHEST 1V SINGLE AP, 01/29/2018. [facility] [place], CHEST 1V SINGLE AP, 01/28/2018. . FINDINGS: Portable AP view of the chest demonstrates a normal-sized cardiac silhouette. Endotracheal tube, naso gastric tube, and right subclavian central line remain present. Multiple EKG lines overlie the patien t. There are small bibasilar pleural-parenchymal opacities as well as diffuse opacity throughout the left lung. No pneumothorax is visualized. CONCLUSION: Stable diffuse left lung airspace consolidation with bibasilar opacities likely representing atelecta sis and possible small effusions. Electronically signed by: Alejandro Pate MD 01/30/2018 5:59 AM EDT
[2018-01-30] MEDS: DOBUTAMINE 500 MG/250 ML IV.CONT SCH (09:02)
[2018-01-30] MEDS: Heparin - SQ 10,000 UNITS/ML Vial SQ SCH (09:04)
[2018-01-30] MEDS: Chlorhexidine 0.12% Oral Kit 15 ML UDC OROPHARYNG SCH ×2 (09:04→20:10)
[2018-01-30] MEDS: Pantoprazole Inj 40 MG Vial IV.PUSH SCH (09:05)
[2018-01-30] MEDS: Aspirin 325 MG Tablet PO SCH (09:06)
[2018-01-30] MEDS: Senna/Docusate Sodium 8.6/50 MG Tablet PO SCH ×2 (09:06→20:56)
[2018-01-30] MEDS: Multivitamin Inj 10 ML, Thiamine Inj 100 MG, Folic Acid Inj 1 MG in Sodium Chlor 0.9% I... IV.SIG SCH (12:07)
--- NOTE | 2018-01-30 12:59 | P.PNCC ---
Subjective Subjective Remarks/Hospital Course: Hospital Course: This is a 32-year-old male. Admission 01/28/2018. Past medical history includes seizure disorder/noncompliant with levetiracetam, previous EtOH sober for 4 weeks, anorexia, gastroesophageal reflux disease and chronic pancreatitis. Patient presented to [facility] 01/28/2018 with a two-day history of nausea vomiting and diarrhea. Patient's mother/discussed at bedside stated she had just had a "stomach flu" which she has currently recovered. Mom states that the patient has become fairly dehydrated is been having some cramping of his hands. She is worried that he is getting dehydrated and his potassium might begin low. He was unable to tolerate a banana so she gave him some potassium pills p.o. which she also did not tolerate and threw up. Sober 4 weeks according to mother. Patient was noted to have a low potassium at 2.0. Creatinine of 4.0. This is in line with his previous hospitalizations for acute dehydration. Lipase was slightly elevated. Patient does have a history of seizure disorder which is not compliant with levetiracetam. ED physician was called into room because the RN believed he had a seizure. Patient was unresponsive. Mother states this was not like any seizure that she had seen. Pulses not palpable therefore CPR was initiated. Initial rhythm was V. fib. Patient received amiodarone, lidocaine, epinephrine, bicarbonate, magnesium during the 35 minute code with return of spontaneous circulation after 35 minutes. Pupils are about 9 mils bilaterally and 6. When I saw the patient patient was actively thrashing moving all 4 extremities spontaneously but not to command. Pupils are round 8 mm bilaterally and nonreactive. Brain CT revealed no acute findings. CT thorax revealed a left upper and lower lobe. CT abdomen pelvis pending at time of dictation. Likely, troponin pending. EKG revealed incomplete right bundle block with ST depression in the inferior and lateral leads. Cardiology consulted. They will evaluate after stat echocardiogram and troponins been completed. Potassium will be replaced pending BMP Subjective: 01/29: persistently in shock. following commands this AM. trop uptrended overnight and now > 40. on levo @ 10, vasopressin. bedside echo with persistence of his global severe LV systolic dysfunction. IVC dilated without respiratory variation. initially attempted therapeutic hypothermia, but became arrhythmogenic and neurologic exam improved and now following commands, so hypothermia aborted. persistently hypokalemic and hypophosphatemic this AM. in addition, remains with severe metabolic alkalosis. 01/30: Troponin trending down, continues to have severe hypokalemia and metabolic alkalosis. Creatinine continues to trend up, only produced 200 cc of urine over the past 24 hours. Objective Vital Signs / I&O: Vital Signs 01/29/18 13:00 01/29/18 13:15 01/29/18 13:30 Temperature 98.8 F 98.6 F 98.4 F Pulse Rate 82 81 80 Respiratory Rate 12 12 12 Blood Pressure 109/72 107/72 110/75 Pulse Oximetry 96 96 97 01/29/18 13:45 01/29/18 14:00 01/29/18 14:15 Temperature 98.4 F 98.4 F 98.2 F Pulse Rate 79 84 83 Respiratory Rate 12 13 12 Blood Pressure 108/72 117/78 109/68 Pulse Oximetry 96 97 94 L 01/29/18 14:30 01/29/18 14:45 01/29/18 14:57 Temperature 98.2 F 98.2 F Pulse Rate 83 80 79 Respiratory Rate 14 12 12 Blood Pressure 102/65 101/65 Pulse Oximetry 94 L 100 98 01/29/18 15:00 01/29/18 15:15 01/29/18 15:30 Temperature 98.2 F 98.2 F 98.2 F Pulse Rate 79 75 76 Respiratory Rate 14 12 16 Blood Pressure 106/69 104/68 113/73 Pulse Oximetry 98 100 88 L 01/29/18 15:45 01/29/18 16:00 01/29/18 16:15 Temperature 97.5 F L 97.7 F 97.7 F Pulse Rate 79 77 78 Respiratory Rate 18 12 12 Blood Pressure 109/71 108/70 110/73 Pulse Oximetry 99 99 98 01/29/18 16:30 01/29/18 16:45 01/29/18 17:00 Temperature 97.7 F 97.5 F L 97.5 F L Pulse Rate 78 76 75 Respiratory Rate 12 12 12 Blood Pressure 107/74 107/73 107/72 Pulse Oximetry 98 99 99 01/29/18 17:15 01/29/18 17:30 01/29/18 17:45 Temperature 97.5 F L 97.5 F L 97.5 F L Pulse Rate 74 75 78 Respiratory Rate 12 12 12 Blood Pressure 107/71 109/71 102/66 Pulse Oximetry 99 99 100 01/29/18 18:00 01/29/18 18:15 01/29/18 18:30 Temperature 97.5 F L 97.5 F L 97.3 F L Pulse Rate 79 79 79 Respiratory Rate 12 12 12 Blood Pressure 101/65 98/62 L 94/59 L Pulse Oximetry 100 100 100 01/29/18 18:45 01/29/18 19:00 01/29/18 19:15 Temperature 97.5 F L 97.3 F L 97.5 F L Pulse Rate 77 76 77 Respiratory Rate 12 12 12 Blood Pressure 91/56 L 92/54 L 93/54 L Pulse Oximetry 100 100 100 01/29/18 19:30 01/29/18 19:45 01/29/18 20:00 Temperature 97.5 F L 97.5 F L 97.5 F L Pulse Rate 78 77 74 Respiratory Rate 12 12 12 Blood Pressure 94/57 L 93/53 L 95/54 L Pulse Oximetry 100 100 100 01/29/18 20:15 01/29/18 20:30 01/29/18 20:45 Temperature 97.5 F L 97.9 F 98.1 F Pulse Rate 73 73 75 Respiratory Rate 12 12 12 Blood Pressure 73/51 L 69/47 L 106/66 Pulse Oximetry 100 100 100 01/29/18 21:00 01/29/18 21:06 01/29/18 21:15 Temperature 97.9 F 97.9 F Pulse Rate 76 75 75 Respiratory Rate 12 12 13 Blood Pressure 115/71 124/77 Pulse Oximetry 100 100 100 01/29/18 21:30 01/29/18 21:45 01/29/18 22:00 Temperature 97.9 F 97.9 F 97.9 F Pulse Rate 77 81 83 Respiratory Rate 12 14 12 Blood Pressure 116/74 116/72 110/68 Pulse Oximetry 100 100 100 01/29/18 22:15 01/29/18 22:30 01/29/18 22:45 Temperature 97.9 F 98.1 F 98.1 F Pulse Rate 85 84 83 Respiratory Rate 12 12 12 Blood Pressure 102/61 97/59 L 98/57 L Pulse Oximetry 100 100 100 01/29/18 23:00 01/29/18 23:15 01/29/18 23:30 Temperature 98.1 F 98.1 F 98.2 F Pulse Rate 81 80 80 Respiratory Rate 14 12 12 Blood Pressure 100/59 L 103/62 106/64 Pulse Oximetry 100 100 100 01/29/18 23:45 01/30/18 00:00 01/30/18 00:15 Temperature 98.2 F 98.2 F 98.2 F Pulse Rate 84 82 85 Respiratory Rate 20 18 22 Blood Pressure 110/69 114/72 110/69 Pulse Oximetry 100 100 98 01/30/18 00:30 01/30/18 00:45 01/30/18 01:00 Temperature 98.4 F 98.4 F 98.6 F Pulse Rate 84 84 85 Respiratory Rate 12 12 13 Blood Pressure 109/67 104/65 105/66 Pulse Oximetry 99 100 100 01/30/18 01:15 01/30/18 01:27 01/30/18 01:30 Temperature 98.6 F 98.4 F Pulse Rate 83 82 83 Respiratory Rate 12 12 12 Blood Pressure 107/65 103/65 Pulse Oximetry 100 99 100 01/30/18 01:45 01/30/18 02:00 01/30/18 02:15 Temperature 98.6 F 98.6 F 98.6 F Pulse Rate 81 81 85 Respiratory Rate 12 12 12 Blood Pressure 104/64 105/65 106/65 Pulse Oximetry 100 99 100 01/30/18 02:30 01/30/18 02:45 01/30/18 03:00 Temperature 98.6 F 98.8 F 98.8 F Pulse Rate 83 83 83 Respiratory Rate 11 L 12 12 Blood Pressure 105/66 108/67 103/66 Pulse Oximetry 100 100 100 01/30/18 03:15 01/30/18 03:30 01/30/18 03:45 Temperature 98.8 F 98.8 F 98.8 F Pulse Rate 84 86 82 Respiratory Rate 12 13 12 Blood Pressure 100/63 107/67 100/65 Pulse Oximetry 100 100 100 01/30/18 04:00 01/30/18 04:15 01/30/18 04:30 Temperature 98.8 F 98.8 F 98.6 F Pulse Rate 85 84 83 Respiratory Rate 14 14 24 Blood Pressure 104/69 110/69 114/74 Pulse Oximetry 100 100 100 01/30/18 04:45 09/03/18 04:56 01/30/18 05:00 Temperature 98.6 F 98.6 F Pulse Rate 83 83 83 Respiratory Rate 15 14 12 Blood Pressure 110/72 111/70 Pulse Oximetry 100 100 100 01/30/18 05:15 01/30/18 05:30 01/30/18 05:45 Temperature 98.8 F 98.8 F 98.6 F Pulse Rate 84 87 85 Respiratory Rate 12 21 16 Blood Pressure 110/69 111/69 103/67 Pulse Oximetry 100 100 100 01/30/18 06:00 01/30/18 07:00 01/30/18 07:15 Temperature 98.6 F 98.8 F 98.8 F Pulse Rate 84 86 85 Respiratory Rate 15 15 12 Blood Pressure 102/64 101/63 98/61 L Pulse Oximetry 100 100 100 01/30/18 07:30 01/30/18 07:45 01/30/18 07:55 Temperature 98.8 F 98.8 F Pulse Rate 85 84 Respiratory Rate 12 12 12 Blood Pressure 100/62 100/62 Pulse Oximetry 100 100 100 01/30/18 07:59 01/30/18 08:00 01/30/18 08:15 Temperature 98.8 F 99.0 F Pulse Rate 85 84 86 Respiratory Rate 16 22 15 Blood Pressure 101/62 99/65 L Pulse Oximetry 100 100 01/30/18 08:30 01/30/18 08:45 01/30/18 09:00 Temperature 99.0 F 98.8 F 98.8 F Pulse Rate 86 84 84 Respiratory Rate 12 12 Blood Pressure 103/66 101/64 102/65 Pulse Oximetry 100 100 100 01/30/18 09:15 01/30/18 09:30 01/30/18 09:45 Temperature 99.0 F 99.0 F 99.0 F Pulse Rate 84 84 86 Respiratory Rate 16 12 12 Blood Pressure 102/65 100/64 97/62 L Pulse Oximetry 100 100 100 01/30/18 10:00 01/30/18 10:15 01/30/18 10:30 Temperature 99.0 F 98.8 F 98.8 F Pulse Rate 86 83 84 Respiratory Rate 12 12 Blood Pressure 96/60 L 95/58 L 95/58 L Pulse Oximetry 100 100 100 01/30/18 10:45 01/30/18 12:44 01/30/18 12:47 Temperature 98.6 F Pulse Rate 84 83 Respiratory Rate 12 14 13 Blood Pressure 95/57 L Pulse Oximetry 100 100 Intake & Output 01/29/18 01/30/18 01/30/18 18:59 06:59 18:59 Intake Total 1985.2 / 1985.2 2165 / 2165 550 / 550 Output Total 40 / 40 50 / 50 Balance 1946.2 / 1946.2 2114 / 2114 550 / 550 Weight 82 kg Intake: IV 1926.2 / 1926.2 2104 / 210 550 / 550 Cordarone Inj 450 MG In NS Inj 250 / 250 250 / 250 241 ML @ 1 MG/MIN 33.33 mls/hr IV.CONT TITRATE PRN Rx#: [id number] DOBUTamine 500 MG/250 ML Premx 250 / 250 500 mg In 250 ml @ 5 MCG/KG/MIN 11.25 mls/hr IV.CONT .[id number] GERMAINE Rx#:[id number] Versed Inj 50 mg In 50 ml @ 2 50 / 50 150 / 150 50 / 50 MG/HR 2 mls/hr IV.CONT TITRATE PRN Rx#:[id number] Diprivan 1000 mg/100 ml Inj 1, 100 / 100 000 mg In 100 ml @ 5 MCG/KG/MIN 2.25 mls/hr IV.CONT TITRATE PRN Rx#:[id number] NS Inj 1,000 ML @ 84 mls/hr IV. 1000 / 1000 CONT .[id number] GERMAINE Rx#:[id number] MVI-12 Inj 10 ML Thiamine Inj 511.2 / 511.2 100 MG Folvite Inj 1 MG In NS Inj 500 ML @ 125 mls/hr IV.SIG Q24H GERMAINE Rx#:[id number] Zosyn 2.25 GM Premix 50 ML @ 50 / 50 50 / 50 50 / 50 100 mls/hr IV.SIG Q8H GERMAINE Rx#: [id number] KCl 20 mEq Premix Inj 20 meq In 100 / 100 200 / 200 100 ml @ 50 mls/hr IV.SIG Q2H GERMAINE Rx#:[id number] KCl 40 mEq Premix Inj 40 meq In 200 / 200 100 / 100 100 ml @ 25 mls/hr IV.SIG Q4H GERMAINE Rx#:[id number] Potassium Phosphate Inj 30 MMOL 260 / 260 In NS Inj 250 ML @ 43.333 mls/ hr IV.SIG ONCE ONE Rx#:[id number] fentaNYL 10 mcg/mL Premix Drip 500 / 500 250 / 250 2,500 mcg In 250 ml @ 50 MCG/HR 5 mls/hr IV.SIG TITRATE PRN Rx #:[id number] Keppra Inj 500 MG In NS Inj 100 105 / 105 105 / 105 ML @ 400 mls/hr IV.SIG Q12H GERMAINE Rx#:[id number] Tube Feeding 0 / 0 Tube Irrigant 60 / 60 60 / 60 Output: Urine Amount (Catheter) 40 / 40 50 / 50 Coude 40 / 40 50 / 50 Other: # Bowel Movements 0 Result Diagrams: 01/31/18 05:00 01/31/18 04:00 Objective Remarks: GENERAL: Intubated and sedated, critically ill HEENT: NCAT, PERRL, ETT in place NECK: Trachea is midline CHEST: Mechanical breath sounds bilaterally. Subclavian TLC present on right, clean/ dry/ intact. CARDIOVASCULAR: Normal rate, regular rhythm ABDOMEN: Soft, non-tender, non-distended. No guarding. MUSCULOSKELETAL: Pulses 2+. No peripheral edema. NEUROLOGICAL: RASS -1 to -2, opens eyes to painful stimuli. Assessment and Plan - Assessment and Plan Plan: Assessment: 32-year-old male with history of EtOH abuse and chronic pancreatitis who presents with severe hypokalemia, dehydration, and cardiac arrest. Patient has persistence of his severe LV systolic dysfunction and is in persistent cardiogenic shock. Will start inotropic therapy with dobutamine. Continue to trend lactates. Trend troponins. V. fib cardiac arrest is concerning for coronary disease, although patient is quite young. Will start heparin drip and aspirin until coronary artery disease can be definitively ruled out, we will trend troponins. Aggressively replace electrolytes and we will have to start IV Diamox to help with his metabolic alkalosis, having now ensure that the patient is intravascularly volume replete. Remains very critically ill with multiple organ systems are life-threatening at this time. Neuro/Psych: Seizure disorder NOS History of EtOH sober 4 weeks History of anorexia/bulimia Currently on versed/fentanyl/propofol drips for sedation/analgesia Goal of RASS -1 to -2, patient noted to be very agitated during sedation vacations Daily sedation vacations as tolerated CT brain 01/28 revealed no acute intracranial findings Loaded with levetiracetam 1 g in ED. Currently on 500 mg IV twice daily/home medication dosage Holding quetiapine 50 mg 3 times daily/home medication Patient has a previous history of heavy EtOH abuse and bulimia as per mother-- will start empiric treatment for beriberi (see below) Frequent Neuro checks CV: In-hospital cardiac arrest V. fib arrest Cardiogenic Shock Severe LV systolic dysfunction EKG revealed incomplete right bundle branch block/ST depression in the inferior/ lateral leads. Will need cardiac perfusion study when creatinine improves. Troponin finally trending down, now 10 Currently on dobutamine at 5 mcg/kg/min, amio @0.5 mg/min, vaso off as of my exam goal map > [address] Main with cardiology consulted. echo 01/28: severe LV systolic dysfunction, EF 20-25%. mildly depressed RV function. no valvular lesions. start heparin drip ASA daily Given the patient's history of heavy alcohol abuse/ bulimia, presentation with multiple electrolyte derangements, and new cardiomyopathy, will treat empirically for beriberi with thiamine and concurrent repletion of folate Resp: Acute hypoxic respiratory failure Left upper/lower lobe pulmonary infiltrates Ventilator bundle Albuterol/ipratropium aerosols every 4 hours with albuterol aerosols every 2 hours as needed for dyspnea Currently on 14/500/8/50%, ABG shows mild hypercarbia so rate was increased from 12 to 14, will recheck ABG this afternoon CT thorax revealed left upper/lower lobe infiltrates. Defer SBT while in shock GI: Elevated lipase/mild pancreatitis Left hepatic pneumobilia history of chronic pancreatitis NGT to [facility] Pantoprazole for GI prophylaxis. On pantoprazole 40 mg daily at home. Docusate serum/senna 1 tablet twice daily for bowel regimen CT abdomen/pelvis revealed mild pancreatitis. There was a small amount of hepatic gas seen on CT scan (likely pneumobilia, cannot exclude portal venous gas); will obtain RUQ US to r/o gallstones or air in gallbladder as well Renal/ : Acute kidney injury Machado catheter for accurate I's and O's in a critically ill patient Creatinine continues to trend up and patient's urine output very low over the past 24 hours (like MARK due to prolonged arrest and cardiorenal syndrome). Baseline creat 1.2 as per previous notes. Nephrology consult appreciated Endo: Sliding scale insulin with Accu-Cheks to maintain euglycemia aspart insulin every 6 hours, IV dextrose as needed for hypoglycemia Heme: Leukocytosis Macrocytic anemia Mild coagulopathy Monitor CBC daily. Follow trends. ID: Placed on piperacillin/tazobactam and vancomycin renally dosed Blood cultures 2, sputum, UA and influenza all NGTD FEN: severe life-threatening Hypokalemia severe life-threatening hypophosphatemia severe metabolic alkalosis Replace electrolytes as clinically indicated. trend electrolytes alkalosis could be from chronic vomiting? otherwise unclear etiology. difficult to control and causing significant alkalemia. MSK: PT evaluate and treat Access: - 9/2 right radial art line - 9/2 right SC TLC with CVP monitoring - machado: needs to keep for hourly outputs. Prophylaxis -GI-pantoprazole -DVT SCD/heparin gtt Counseling/ Coordination of Care: Total critical care time: 65 minutes. This includes examining the patient, gathering history from someone other than the patient (i.e., chart review), discussing the patient's care with other providers, managing the patient's blood pressure and ventilator settings, ordering and interpreting radiology studies, ordering and interpreting laboratory studies, managing the patient's pain and sedation requirements, re-evaluation at frequent intervals, and documentation. All critical care time is separate and exclusive of procedures, teaching, and patient/ family updates.
[2018-01-30] MEDS ORDERED: Vancomycin Inj 1,250 MG in Sodium Chlor 0.9% Inj 250 ML IV.SIG ONE (15:00)
--- NOTE | 2018-01-30 15:21 | P.CONNP ---
History of Present Illness Service: Nephrology Reason for Consult: MARK, electrolyte abnormalities. Primary Care Provider: UNKNOWN Chief Complaint: CODE BLUE History of Present Illness: Patient was admitted on 01/28/18, he was brought by his mother because she though he was having nausea and vomiting. He also apparently was having cramping of hands. In the ER he was noted to have potassium level of 2, and creatinine of 4. He has near normal renal function at baseline, however has had episodes of MARK in the past, perhaps due to dehydration. In the ER, he was found to be unresponsive and pulseless. He was in Ventricular tachycardia, cardiac arrest. He was resuscitated for about 35 minutes before pulse was regained. He has had persistent hypokalemia since admission. Phosphorus is currently high. Magnesium was high at 2.8 on admission. Patient has history of eating disorder: bulimia or anorexia. Also has history of ETOH abuse and seizure. History of non compliance. His EF is thought to be around 20-25%. His Troponin is high. His urine output was really low, but today has improved to about 30 ml/hour. Review of Systems unobtainable due to endotracheal tube PMFSH - History History Provided By: Patient - Medical History Medical History: Medical History (Last Updated 01/28/18 @ 11:46 by Anand Bird MD) Depression GERD (gastroesophageal reflux disease) Alcohol abuse Hernia Pancreatitis Seizures - Surgical History Surgical History: Surgical History (Last Reviewed 01/28/18 @ 11:45 by Anand Bird MD) History of left inguinal hernia repair - Family History Family History: Family History (Last Updated 01/28/18 @ 11:46 by Anand Bird MD) Other Family history non-contributory - Tobacco History Second Hand Smoke Exposure: No Tobacco Use In Past 30 Days: No Smoking Status: Former smoker Tobacco Type: Cigarettes - Alcohol History How Often Do You Have a Drink Containing Alcohol: 2 to 4 times a month - Substance Use History Substance History: Active Abuse - Substance Use Type Alcohol Status: Early Remission Route Used: By Mouth Frequency: Was a heavy daily user, quit 4 weeks ago Reason for Use: Calm Down - Travel History History of Recent Travel: No Recent Travel in the [place] Within the Last 8 Weeks: No Recent Travel Out of the Country Within the Last 8 Weeks: No - Immunization History Tetanus Immunization: <5 Years Hx Influenza Vaccine This Season: Yes Medications and Allergies Active Medications: Active Medications Acetaminophen (Tylenol Liq) 650 mg NG/OG Q6H PRN PRN Reason: SHIVERING Al Hydroxide/Mg Hydroxide (Milk Of Magnesia Liq) 30 ml PO Q12H PRN PRN Reason: Mild Constipation Albuterol (Albuterol Neb (Prn)) 2.5 mg NEB Q2HR NEB PRN PRN Reason: SHORTNESS OF BREATH/WHEEZING Albuterol (Duoneb Neb (Efren)) 1 ampul NEB Q4HR NEB [facility] Last Admin: 01/30/18 12:46 Dose: 1 ampul Artificial Tears (Genteal Severe Dry Eye Relief 0.3% Opth Gel) 1 drops EACH EYE Q4H PRN PRN Reason: SEE LABEL COMMENTS Aspirin (Aspirin) 325 mg PO DAILY [facility] Last Admin: 01/30/18 09:06 Dose: 325 mg Bisacodyl (Dulcolax Supp) 10 mg RECTAL DAILY PRN PRN Reason: SEVERE CONSITIPATION Chlorhexidine Gluconate (Peridex 0.12% Oral Kit) 15 ml OROPHARYNG BID@0800, 2000 [facility] Last Admin: 01/30/18 09:04 Dose: 15 ml Chlorhexidine Gluconate (Chlorhexidine 2% Cloth) 3 pack TOPICAL DAILY@0400 [facility] Stop: 02/03/18 03:59 Last Admin: 01/30/18 03:39 Dose: Not Given Chlorhexidine Gluconate (Chlorhexidine 2% Cloth) 3 pack TOPICAL DAILY@0400 PRN PRN Reason: Extra cloth needed Stop: 02/03/18 03:59 Dextrose (D50w Vial) 50 ml IV.PUSH UNSCH PRN PRN Reason: PER HYPOGLYCEMIA PROTOCOL Last Admin: 01/30/18 04:15 Dose: 50 ml Glucagon (Glucagon Inj) 1 mg OTHER PRN PRN PRN Reason: for Hypoglycemia Protocol Levetiracetam 500 mg/ Sodium (Chloride) 105 mls @ 400 mls/hr IV.SIG Q12H [facility] Last Infusion: 01/30/18 14:37 Dose: Infused Piperacillin/Tazobactam/Dextrose (Zosyn 2.25 Gm Premix) 50 mls @ 100 mls/hr IV.SIG Q8H [facility] Last Infusion: 01/30/18 14:07 Dose: 100 mls/hr Midazolam HCl (Versed Inj) 50 mg in 50 mls @ 2 mls/hr IV.CONT TITRATE PRN; Protocol PRN Reason: SEDATION Last Titration: 01/30/18 14:48 Dose: 4 mg/hr, 4 mls/hr Fentanyl (Fentanyl 10 Mcg/Ml Premix Drip) 2,500 mcg in 250 mls @ 5 mls/hr IV.SIG TITRATE PRN; Protocol PRN Reason: SEDATION Last Titration: 01/30/18 08:00 Dose: 150 mcg/hr, 15 mls/hr Amiodarone HCl 450 mg/ Sodium (Chloride) 250 mls @ 33.33 mls/hr IV.CONT TITRATE PRN; Protocol PRN Reason: Per Protocol Last Admin: 01/30/18 02:09 Dose: 0.5 mg/min, 16.66 mls/hr Vasopressin 40 unit/ Sodium (Chloride) 100 mls @ 1.5 mls/hr IV.CONT TITRATE PRN ; Protocol PRN Reason: Per Protocol Last Titration: 01/30/18 14:00 Dose: 0 units/min, 0 mls/hr Norepinephrine Bitartrate 16 (mg/ Sodium Chloride) 250 mls @ 1.87 mls/hr IV.CONT TITRATE PRN; Protocol PRN Reason: See Protocol Last Titration: 01/29/18 20:22 Dose: 5 mcg/min, 4.68 mls/hr Dobutamine HCl/Dextrose (Dobutamine 500 Mg/250 Ml Premx) 500 mg in 250 mls @ 11.25 mls/hr IV.CONT .[id number] [facility] Last Admin: 01/30/18 09:02 Dose: 5 mcg/kg/min, 11.25 mls/hr Heparin Sodium/Dextrose (Heparin/D5w 25,000 U/250 Ml) 25,000 unit in 250 mls @ 0 mls/hr IV.CONT TITRATE PRN; Protocol PRN Reason: Per Protocol Last Titration: 01/29/18 20:19 Dose: 900 units/hr, 9 mls/hr Propofol (Diprivan 1000 Mg/100 Ml Inj) 1,000 mg in 100 mls @ 2.25 mls/hr IV.CONT TITRATE PRN; Protocol PRN Reason: Per Protocol Last Admin: 01/30/18 03:37 Dose: 15 mcg/kg/min, 6.75 mls/hr Dextrose (D5w Inj) 1,000 mls @ 30 mls/hr IV.SIG .Q24H [facility] Last Admin: 01/30/18 04:49 Dose: 30 mls/hr Vancomycin HCl 1,250 mg/ (Sodium Chloride) 262.5 mls @ 250 mls/hr IV.SIG ONCE ONE Stop: 01/30/18 16:02 Thiamine HCl 30 mg/ Sodium (Chloride) 100.3 mls @ 100.3 mls/hr IV.SIG Q8H [facility] Multivitamins 10 ml/ Folic (Acid 1 mg/ Sodium Chloride) 510.2 mls @ 125 mls/hr IV.SIG DAILY [facility] Insulin Aspart (Novolog Insulin Correctional Sugar Inj) 0 unit SQ Q4HR [facility]; Protocol Last Admin: 01/30/18 14:06 Dose: Not Given Lactulose (Lactulose Liq) 30 ml PO DAILY PRN PRN Reason: SEVERE CONSITIPATION Lorazepam (Ativan Inj) 1 mg IV.PUSH Q1H PRN PRN Reason: SEIZURES Meperidine HCl (Demerol Inj) 25 mg IM Q2H PRN PRN Reason: SHIVERING Midazolam HCl (Versed Inj) 1 mg IV.PUSH Q15M PRN PRN Reason: SEE LABEL COMMENTS Miscellaneous Information (Misc Mix All Iv Meds In Ns) 1 each MISCELLANE UNSCH [facility] Ondansetron HCl (Zofran Inj) 4 mg IV.PUSH Q6H PRN PRN Reason: NAUSEA OR VOMITING Pantoprazole Sodium (Protonix Inj) 40 mg IV.PUSH DAILY [facility] Last Admin: 01/30/18 09:05 Dose: 40 mg Pharmacy Profile Note (Vancomycin Consult Pharmacy) 1 each OTHER UNSCH PRN PRN Reason: Pharmacy to dose Senna/Docusate Sodium (Hiral-Colace) 1 tab PO BID [facility] Last Admin: 01/30/18 09:06 Dose: 1 tab Sennosides (Senokot) 17.2 mg PO Q12H PRN PRN Reason: Moderate Constipation Sodium Chloride (Ns Flush) 2 ml IV.FLUSH BID [facility] Last Admin: 01/30/18 09:05 Dose: 2 ml Sodium Chloride (Ns Flush) 2 ml IV.FLUSH PRN PRN PRN Reason: FLUSH AFTER USING IV ACCESS Terbutaline Sulfate (Brethine Inj) 1 mg SQ ONCE PRN PRN Reason: Extravasation Terbutaline Sulfate (Brethine Inj) 1 mg SQ UNSCH PRN PRN Reason: For Extravasation Allergies Allergy/AdvReac Type Severity Reaction Status Date / Time Sulfa (Sulfonamide Allergy Severe hives Verified 10/11/17 07:56 Antibiotics) Home Medications Medication Instructions Recorded Confirmed Type levetiracetam [Keppra] 500 mg PO Q12H 01/28/18 01/28/18 History pantoprazole [Protonix] 40 mg PO BID 01/28/18 01/28/18 History quetiapine [Seroquel] 50 mg PO TID 01/28/18 01/28/18 History Exam Vital signs: Vital Signs 01/29/18 15:15 01/29/18 15:30 01/29/18 15:45 Temperature 98.2 F 98.2 F 97.5 F L Pulse Rate 75 76 79 Respiratory Rate 12 16 18 Blood Pressure 104/68 113/73 109/71 Pulse Oximetry 100 88 L 99 01/29/18 16:00 01/29/18 16:15 01/29/18 16:30 Temperature 97.7 F 97.7 F 97.7 F Pulse Rate 77 78 78 Respiratory Rate 12 12 12 Blood Pressure 108/70 110/73 107/74 Pulse Oximetry 99 98 98 01/29/18 16:45 01/29/18 17:00 01/29/18 17:15 Temperature 97.5 F L 97.5 F L 97.5 F L Pulse Rate 76 75 74 Respiratory Rate 12 12 12 Blood Pressure 107/73 107/72 107/71 Pulse Oximetry 99 99 99 01/29/18 17:30 01/29/18 17:45 01/29/18 18:00 Temperature 97.5 F L 97.5 F L 97.5 F L Pulse Rate 75 78 79 Respiratory Rate 12 12 12 Blood Pressure 109/71 102/66 101/65 Pulse Oximetry 99 100 100 01/29/18 18:15 01/29/18 18:30 01/29/18 18:45 Temperature 97.5 F L 97.3 F L 97.5 F L Pulse Rate 79 79 77 Respiratory Rate 12 12 12 Blood Pressure 98/62 L 94/59 L 91/56 L Pulse Oximetry 100 100 100 01/29/18 19:00 01/29/18 19:15 01/29/18 19:30 Temperature 97.3 F L 97.5 F L 97.5 F L Pulse Rate 76 77 78 Respiratory Rate 12 12 12 Blood Pressure 92/54 L 93/54 L 94/57 L Pulse Oximetry 100 100 100 01/29/18 19:45 01/29/18 20:00 01/29/18 20:15 Temperature 97.5 F L 97.5 F L 97.5 F L Pulse Rate 77 74 73 Respiratory Rate 12 12 12 Blood Pressure 93/53 L 95/54 L 73/51 L Pulse Oximetry 100 100 100 01/29/18 20:30 01/29/18 20:45 01/29/18 21:00 Temperature 97.9 F 98.1 F 97.9 F Pulse Rate 73 75 76 Respiratory Rate 12 12 12 Blood Pressure 69/47 L 106/66 115/71 Pulse Oximetry 100 100 100 01/29/18 21:06 01/29/18 21:15 01/29/18 21:30 Temperature 97.9 F 97.9 F Pulse Rate 75 75 77 Respiratory Rate 12 13 12 Blood Pressure 124/77 116/74 Pulse Oximetry 100 100 100 01/29/18 21:45 01/29/18 22:00 01/29/18 22:15 Temperature 97.9 F 97.9 F 97.9 F Pulse Rate 81 83 85 Respiratory Rate 14 12 12 Blood Pressure 116/72 110/68 102/61 Pulse Oximetry 100 100 100 01/29/18 22:30 01/29/18 22:45 01/29/18 23:00 Temperature 98.1 F 98.1 F 98.1 F Pulse Rate 84 83 81 Respiratory Rate 12 12 14 Blood Pressure 97/59 L 98/57 L 100/59 L Pulse Oximetry 100 100 100 01/29/18 23:15 01/29/18 23:30 01/29/18 23:45 Temperature 98.1 F 98.2 F 98.2 F Pulse Rate 80 80 84 Respiratory Rate 12 12 20 Blood Pressure 103/62 106/64 110/69 Pulse Oximetry 100 100 100 01/30/18 00:00 01/30/18 00:15 01/30/18 00:30 Temperature 98.2 F 98.2 F 98.4 F Pulse Rate 82 85 84 Respiratory Rate 18 22 12 Blood Pressure 114/72 110/69 109/67 Pulse Oximetry 100 98 99 01/30/18 00:45 01/30/18 01:00 01/30/18 01:15 Temperature 98.4 F 98.6 F 98.6 F Pulse Rate 84 85 83 Respiratory Rate 12 13 12 Blood Pressure 104/65 105/66 107/65 Pulse Oximetry 100 100 100 01/30/18 01:27 01/30/18 01:30 01/30/18 01:45 Temperature 98.4 F 98.6 F Pulse Rate 82 83 81 Respiratory Rate 12 12 12 Blood Pressure 103/65 104/64 Pulse Oximetry 99 100 100 01/30/18 02:00 01/30/18 02:15 01/30/18 02:30 Temperature 98.6 F 98.6 F 98.6 F Pulse Rate 81 85 83 Respiratory Rate 12 12 11 L Blood Pressure 105/65 106/65 105/66 Pulse Oximetry 99 100 100 01/30/18 02:45 01/30/18 03:00 01/30/18 03:15 Temperature 98.8 F 98.8 F 98.8 F Pulse Rate 83 83 84 Respiratory Rate 12 12 12 Blood Pressure 108/67 103/66 100/63 Pulse Oximetry 100 100 100 01/30/18 03:30 01/30/18 03:45 01/30/18 04:00 Temperature 98.8 F 98.8 F 98.8 F Pulse Rate 86 82 85 Respiratory Rate 13 12 14 Blood Pressure 107/67 100/65 104/69 Pulse Oximetry 100 100 100 01/30/18 04:15 01/30/18 04:30 01/30/18 04:45 Temperature 98.8 F 98.6 F 98.6 F Pulse Rate 84 83 83 Respiratory Rate 14 24 15 Blood Pressure 110/69 114/74 110/72 Pulse Oximetry 100 100 100 01/30/18 04:56 01/30/18 05:00 01/30/18 05:15 Temperature 98.6 F 98.8 F Pulse Rate 83 83 84 Respiratory Rate 14 12 12 Blood Pressure 111/70 110/69 Pulse Oximetry 100 100 100 01/30/18 05:30 01/30/18 05:45 01/30/18 06:00 Temperature 98.8 F 98.6 F 98.6 F Pulse Rate 87 85 84 Respiratory Rate 21 16 15 Blood Pressure 111/69 103/67 102/64 Pulse Oximetry 100 100 100 09/03/18 07:00 01/30/18 07:15 01/30/18 07:30 Temperature 98.8 F 98.8 F 98.8 F Pulse Rate 86 85 85 Respiratory Rate 15 12 12 Blood Pressure 101/63 98/61 L 100/62 Pulse Oximetry 100 100 100 01/30/18 07:45 01/30/18 07:55 01/30/18 07:59 Temperature 98.8 F Pulse Rate 84 85 Respiratory Rate 12 12 16 Blood Pressure 100/62 Pulse Oximetry 100 100 01/30/18 08:00 01/30/18 08:15 01/30/18 08:30 Temperature 98.8 F 99.0 F 99.0 F Pulse Rate 84 86 86 Respiratory Rate 22 15 Blood Pressure 101/62 99/65 L 103/66 Pulse Oximetry 100 100 100 01/30/18 08:45 01/30/18 09:00 01/30/18 09:15 Temperature 98.8 F 98.8 F 99.0 F Pulse Rate 84 84 84 Respiratory Rate 12 12 16 Blood Pressure 101/64 102/65 102/65 Pulse Oximetry 100 100 100 01/30/18 09:30 01/30/18 09:45 01/30/18 10:00 Temperature 99.0 F 99.0 F 99.0 F Pulse Rate 84 86 86 Respiratory Rate 12 12 12 Blood Pressure 100/64 97/62 L 96/60 L Pulse Oximetry 100 100 100 01/30/18 10:15 01/30/18 10:30 01/30/18 10:45 Temperature 98.8 F 98.8 F 98.6 F Pulse Rate 83 84 84 Respiratory Rate 12 12 Blood Pressure 95/58 L 95/58 L 95/57 L Pulse Oximetry 100 100 100 01/30/18 12:44 01/30/18 12:47 Temperature Pulse Rate 83 Respiratory Rate 14 13 Blood Pressure Pulse Oximetry 100 Intake & Output 01/29/18 01/30/18 01/30/18 18:59 06:59 18:59 Intake Total 1985.2 / 1985.2 2164 175 / 175 Output Total 40 / 40 50 / 50 Balance 1945.2 / 1945.2 2114 175 / 175 Weight 82 kg Intake: IV 1925.2 / 1925.2 2105 / 2105 1755 / 1755 Cordarone Inj 450 MG In NS Inj 250 / 250 250 / 250 241 ML @ 1 MG/MIN 33.33 mls/hr IV.CONT TITRATE PRN Rx#: [id number] DOBUTamine 500 MG/250 ML Premx 250 / 250 500 mg In 250 ml @ 5 MCG/KG/MIN 11.25 mls/hr IV.CONT .[id number] [facility] Rx#:[id number] Versed Inj 50 mg In 50 ml @ 2 50 / 50 150 / 150 50 / 50 MG/HR 2 mls/hr IV.CONT TITRATE PRN Rx#:[id number] Diprivan 1000 mg/100 ml Inj 1, 100 / 100 000 mg In 100 ml @ 5 MCG/KG/MIN 2.25 mls/hr IV.CONT TITRATE PRN Rx#:[id number] NS Inj 1,000 ML @ 84 mls/hr IV. 1000 / 1000 1000 / 1000 CONT .[id number] [facility] Rx#:[id number] MVI-12 Inj 10 ML Thiamine Inj 511.2 / 511.2 100 MG Folvite Inj 1 MG In NS Inj 500 ML @ 125 mls/hr IV.SIG Q24H [facility] Rx#:[id number] Zosyn 2.25 GM Premix 50 ML @ 50 / 50 50 / 50 50 / 50 100 mls/hr IV.SIG Q8H [facility] Rx#: [id number] KCl 20 mEq Premix Inj 20 meq In 100 / 100 300 / 300 100 ml @ 50 mls/hr IV.SIG Q2H [facility] Rx#:[id number] KCl 40 mEq Premix Inj 40 meq In 200 / 200 100 / 100 100 ml @ 25 mls/hr IV.SIG Q4H [facility] Rx#:[id number] Potassium Phosphate Inj 30 MMOL 260 / 260 In NS Inj 250 ML @ 43.333 mls/ hr IV.SIG ONCE ONE Rx#:[id number] fentaNYL 10 mcg/mL Premix Drip 500 / 500 250 / 250 2,500 mcg In 250 ml @ 50 MCG/HR 5 mls/hr IV.SIG TITRATE PRN Rx #:[id number] Keppra Inj 500 MG In NS Inj 100 105 / 105 105 / 105 105 / 105 ML @ 400 mls/hr IV.SIG Q12H [facility] Rx#:[id number] Tube Feeding 0 / 0 Tube Irrigant 60 / 60 60 / 60 Output: Urine Amount (Catheter) 40 / 40 50 / 50 Coude 40 / 40 50 / 50 Other: # Bowel Movements 0 - Constitutional Comments: on the ventilator, unresponsive. - Routine HEENT Exam Head: Present: normocephalic Eye: Present: EOMI, PERRL - Routine Neck Exam Present: supple - Routine Respiratory Exam Present: patient mechanically ventilated, CTA bilaterally - Routine Cardiovascular Exam Present: RRR, S1, S2 - Routine Abdominal Exam Present: soft - Routine Extremities Exam Present: edema - Routine Skin Exam Present: intact Results - Lab Results 01/30/18 04:35 01/30/18 04:35 Most recent lab results ABG pH 7.36 (7.380-7.420) L 01/30/18 05:04 ABG pCO2 63 mmHg (38-42) H* 01/30/18 05:04 ABG pO2 154 mmHG (61-120) H 01/30/18 05:04 ABG HCO3 35 mmol/L (22-26) H 01/30/18 05:04 Calcium 5.8 mg/dL (8.5-10.1) L* D 01/30/18 04:35 Phosphorus 5.3 mg/dL (2.5-4.9) H D 01/30/18 04:35 Magnesium 2.2 mg/dL (1.5-2.5) D 01/30/18 04:35 Assessment and Plan - Assessment (1) Acute kidney failure Code(s): N17.9 - Acute kidney failure, unspecified Status: Acute Plan: may have presented with pre-renal azotemia, but likely has progressed to ATN at this point. Oliguric. Positive fluid balance, his weight has increased by 12 kg since admission. Agree with stopping IVF. Start diuresis carefully, while replacing potassium. Avoid nephrotoxic agents. Obtain renal US. May need renal replacement therapy if no improvement in renal function in the next 24 hours. (2) Hypokalemia Code(s): E87.6 - Hypokalemia Status: Acute Plan: Likely due to GI losses. In addition, patient has metabolic alkalosis: resulting in intracellular shift. Continue to replace carefully. (3) Cardiomyopathy Code(s): I42.9 - Cardiomyopathy, unspecified Status: Acute Plan: Troponin is high, cardiology on the case. Alcohol induced cardiomyopathy is a possibility. Also could be secondary to chronic hypokalemia. Agree with thiamine infusion. (4) Acid-base imbalance Code(s): E87.4 - Mixed disorder of acid-base balance Status: Acute Plan: Patient has mixed acid disorder: respiratory acidosis and metabolic alkalosis. Correct respiratory acidosis with ventilator adjustment. - Attending Attestation Highly complex patient. Thanks for the consult.
[2018-01-30] MEDS: SODIUM CHLOR 0.9% IV.SIG SCH (15:45)
[2018-01-30] MEDS: THIAMINE IV.SIG SCH (15:45)
--- NOTE | 2018-01-30 16:05 | US ---
EXAM DATE: 01/30/2018 3:57 PM EDT AGE/SEX: 32 years / Male INDICATIONS: Right upper quadrant pain. CLINICAL DATA: This is the patient's initial encounter. Patient reports that signs and symptoms have been present for 4 - 6 days and indicates a pain score of Nonresponsive. MEDICAL/SURGICAL HISTORY: Gastroesophageal reflux disease. Pancreatitis. Hernia. Seizures. Alc ohol abuse. . Left inguinal hernia repair. COMPARISON: No prior exams available for comparison. MEASUREMENTS: Liver:__ 19.7 cm. Common Bile Duct:__ 5mm. FINDINGS: Liver: Normal echotexture without focal lesion or ductal dilatation. Portal Vein: Hepatopedal flow seen in portal vein. Common Duct: No intraluminal mass or stone visualized. Gallbladder: Demonstrates no wall thickening or pericholecystic fluid. No stones visualized. Pancreas: Not well visualized. Right Kidney: Normal echotexture and cortical thickness. No mass or hydronephrosis. CONCLUSION: 1. Unremarkable study. Electronically signed by: Priscila Atkins MD 01/30/2018 4:03 PM EDT
[2018-01-30] MEDS: Multivitamin Inj 10 ML, Folic Acid Inj 1 MG in Sodium Chlor 0.9% Inj 500 ML IV.SIG SCH (16:14)
[2018-01-30 16:20] LABS: ABG Base Excess 5.9 mmol/L (-2-2); ABG PCO2 51 mmHg (38-42); ABG PO2 201 mmHG (61-120)
[2018-01-30] MEDS: Heparin Drip 25,000 UNIT/250 ML BAG IV.CONT PRN (16:21)
[2018-01-30] MEDS: Potassium Chlor 40 mEq Premix 40 MEQ/100 ML PIGGYBACK IV.SIG SCH ×4 (17:36→23:38)
--- NOTE | 2018-01-30 18:46 | US ---
EXAM DATE: 01/30/2018 6:41 PM EDT AGE/SEX: 32 years / Male INDICATIONS: Increased lab values. CLINICAL DATA: This is the patient's initial encounter. Patient reports that signs and symptoms have been present for 1 day and indicates a pain score of 0/10. MEDICAL/SURGICAL HISTORY: . Alcohol abuse. Depression. Pancreatitis. Seizures. None. COMPARISON: No prior exams available for comparison. MEASUREMENTS: Right Kidney:__11.9 x 5.1 x 5.6 cm Left Kidney:__10.7 x 5.4 x 5.3 cm FINDINGS: Right Kidney: Normal echotexture and cortical thickness. No mass or hydronephrosis. Left Kidney: Normal echotexture and cortical thickness. No mass or hydronephrosis. Bladder: Nance catheter is present. Bladder decompressed. Other: None. CONCLUSION: 1. Negative renal sonogram. Electronically signed by: Priscila Atkins MD 01/30/2018 6:45 PM EDT
[2018-01-30 19:38] LABS: Bacteria,Urine Rare /hpf; Bilirubin,Urine Negative (Negative); Clarity,Urine Hazy (Clear); Color,Urine Yellow (Yellw/Straw); Glucose,Urine (UA) Negative (Negative); Leukocyte Esterase,Urine Negative (Negative); Nitrite,Urine Negative (Negative); Specific Gravity,Urine 1.016 (1.002-1.035)
--- NOTE | 2018-01-30 21:28 | P.PNCA ---
Subjective Interval history: Remains on ventilator, no recurrent ventricular arrhythmia Discussed with patient's mother at bedside Discussed with RN at bedside. Physical Exam Vital signs: Vital Signs 01/29/18 21:30 01/29/18 21:45 01/29/18 22:00 Temperature 97.9 F 97.9 F 97.9 F Pulse Rate 77 81 83 Respiratory Rate 12 14 12 Blood Pressure 116/74 116/72 110/68 Pulse Oximetry 100 100 100 01/29/18 22:15 01/29/18 22:30 01/29/18 22:45 Temperature 97.9 F 98.1 F 98.1 F Pulse Rate 85 84 83 Respiratory Rate 12 12 12 Blood Pressure 102/61 97/59 L 98/57 L Pulse Oximetry 100 100 100 01/29/18 23:00 01/29/18 23:15 01/29/18 23:30 Temperature 98.1 F 98.1 F 98.2 F Pulse Rate 81 80 80 Respiratory Rate 14 12 12 Blood Pressure 100/59 L 103/62 106/64 Pulse Oximetry 100 100 100 01/29/18 23:45 01/30/18 00:00 01/30/18 00:15 Temperature 98.2 F 98.2 F 98.2 F Pulse Rate 84 82 85 Respiratory Rate 20 18 22 Blood Pressure 110/69 114/72 110/69 Pulse Oximetry 100 100 98 01/30/18 00:30 01/30/18 00:45 01/30/18 01:00 Temperature 98.4 F 98.4 F 98.6 F Pulse Rate 84 84 85 Respiratory Rate 12 12 13 Blood Pressure 109/67 104/65 105/66 Pulse Oximetry 99 100 100 01/30/18 01:15 01/30/18 01:27 01/30/18 01:30 Temperature 98.6 F 98.4 F Pulse Rate 83 82 83 Respiratory Rate 12 12 12 Blood Pressure 107/65 103/65 Pulse Oximetry 100 99 100 01/30/18 01:45 01/30/18 02:00 01/30/18 02:15 Temperature 98.6 F 98.6 F 98.6 F Pulse Rate 81 81 85 Respiratory Rate 12 12 12 Blood Pressure 104/64 105/65 106/65 Pulse Oximetry 100 99 100 01/30/18 02:30 01/30/18 02:45 01/30/18 03:00 Temperature 98.6 F 98.8 F 98.8 F Pulse Rate 83 83 83 Respiratory Rate 11 L 12 12 Blood Pressure 105/66 108/67 103/66 Pulse Oximetry 100 100 100 01/30/18 03:15 01/30/18 03:30 01/30/18 03:45 Temperature 98.8 F 98.8 F 98.8 F Pulse Rate 84 86 82 Respiratory Rate 12 13 12 Blood Pressure 100/63 107/67 100/65 Pulse Oximetry 100 100 100 01/30/18 04:00 01/30/18 04:15 01/30/18 04:30 Temperature 98.8 F 98.8 F 98.6 F Pulse Rate 85 84 83 Respiratory Rate 14 14 24 Blood Pressure 104/69 110/69 114/74 Pulse Oximetry 100 100 100 01/30/18 04:45 01/30/18 04:56 01/30/18 05:00 Temperature 98.6 F 98.6 F Pulse Rate 83 83 83 Respiratory Rate 15 14 12 Blood Pressure 110/72 111/70 Pulse Oximetry 100 100 100 01/30/18 05:15 01/30/18 05:30 01/30/18 05:45 Temperature 98.8 F 98.8 F 98.6 F Pulse Rate 84 87 85 Respiratory Rate 12 21 16 Blood Pressure 110/69 111/69 103/67 Pulse Oximetry 100 100 100 01/30/18 06:00 01/30/18 07:00 01/30/18 07:15 Temperature 98.6 F 98.8 F 98.8 F Pulse Rate 84 86 85 Respiratory Rate 15 15 12 Blood Pressure 102/64 101/63 98/61 L Pulse Oximetry 100 100 100 01/30/18 07:30 01/30/18 07:45 01/30/18 07:55 Temperature 98.8 F 98.8 F Pulse Rate 85 84 Respiratory Rate 12 12 12 Blood Pressure 100/62 100/62 Pulse Oximetry 100 100 100 01/30/18 07:59 01/30/18 08:00 01/30/18 08:15 Temperature 98.8 F 99.0 F Pulse Rate 85 84 86 Respiratory Rate 16 22 15 Blood Pressure 101/62 99/65 L Pulse Oximetry 100 100 01/30/18 08:30 01/30/18 08:45 01/30/18 09:00 Temperature 99.0 F 98.8 F 98.8 F Pulse Rate 86 84 84 Respiratory Rate 12 12 Blood Pressure 103/66 101/64 102/65 Pulse Oximetry 100 100 100 01/30/18 09:15 01/30/18 09:30 01/30/18 09:45 Temperature 99.0 F 99.0 F 99.0 F Pulse Rate 84 84 86 Respiratory Rate 16 12 12 Blood Pressure 102/65 100/64 97/62 L Pulse Oximetry 100 100 100 01/30/18 10:00 01/30/18 10:15 01/30/18 10:30 Temperature 99.0 F 98.8 F 98.8 F Pulse Rate 86 83 84 Respiratory Rate 12 12 Blood Pressure 96/60 L 95/58 L 95/58 L Pulse Oximetry 100 100 100 01/30/18 10:45 01/30/18 11:30 01/30/18 11:45 Temperature 98.6 F 98.6 F 98.6 F Pulse Rate 84 83 84 Respiratory Rate 12 11 L 12 Blood Pressure 95/57 L 98/61 L 99/61 L Pulse Oximetry 100 100 100 01/30/18 12:00 01/30/18 12:15 01/30/18 12:30 Temperature 98.6 F 98.6 F 98.6 F Pulse Rate 85 84 85 Respiratory Rate 12 21 18 Blood Pressure 107/67 104/68 108/69 Pulse Oximetry 100 100 100 01/30/18 12:44 01/30/18 12:45 01/30/18 12:47 Temperature 98.6 F Pulse Rate 83 83 Respiratory Rate 14 24 13 Blood Pressure 107/68 Pulse Oximetry 100 100 01/30/18 13:00 01/30/18 13:15 01/30/18 13:30 Temperature 98.6 F 98.6 F 98.6 F Pulse Rate 83 83 83 Respiratory Rate 28 H 22 27 H Blood Pressure 108/67 106/67 107/68 Pulse Oximetry 100 100 100 01/30/18 13:45 01/30/18 14:00 01/30/18 14:15 Temperature 98.6 F 98.6 F 98.6 F Pulse Rate 84 85 85 Respiratory Rate 18 24 27 H Blood Pressure 109/70 103/69 105/67 Pulse Oximetry 100 100 100 01/30/18 14:30 01/30/18 14:45 01/30/18 15:00 Temperature 98.4 F 98.4 F 98.4 F Pulse Rate 86 85 84 Respiratory Rate 18 15 21 Blood Pressure 99/56 L 97/57 L 99/58 L Pulse Oximetry 100 100 100 01/30/18 15:15 01/30/18 15:30 01/30/18 15:45 Temperature 98.4 F 98.4 F 98.4 F Pulse Rate 87 85 84 Respiratory Rate 15 14 14 Blood Pressure 103/60 102/58 L 103/60 Pulse Oximetry 100 100 100 01/30/18 16:00 01/30/18 16:15 01/30/18 16:30 Temperature 98.4 F 98.4 F 98.4 F Pulse Rate 83 83 83 Respiratory Rate 17 19 18 Blood Pressure 107/61 107/63 109/63 Pulse Oximetry 100 100 99 01/30/18 16:38 01/30/18 16:41 01/30/18 16:45 Temperature 98.4 F Pulse Rate 83 84 Respiratory Rate 15 14 17 Blood Pressure 109/65 Pulse Oximetry 99 100 01/30/18 17:00 01/30/18 17:15 01/30/18 17:30 Temperature 98.4 F 98.4 F 98.4 F Pulse Rate 84 86 85 Respiratory Rate 17 17 19 Blood Pressure 108/64 109/65 109/66 Pulse Oximetry 99 100 100 01/30/18 17:45 01/30/18 18:00 01/30/18 20:00 Temperature 98.4 F 98.4 F Pulse Rate 85 84 88 Respiratory Rate 13 16 Blood Pressure 106/65 108/64 Pulse Oximetry 100 100 100 01/30/18 20:49 Temperature Pulse Rate 83 Respiratory Rate 14 Blood Pressure Pulse Oximetry Intake & Output 01/30/18 01/30/18 01/31/18 06:59 18:59 06:59 Intake Total 2165 / 2165 3229.0 / 3229.0 Output Total 50 / 50 450 / 450 Balance 2115 / 2115 2779.0 / 2779.0 Weight 82 kg Intake: IV 2105 / 2105 3229.0 / 3229.0 Cordarone Inj 450 MG In NS Inj 250 / 250 250 / 250 241 ML @ 1 MG/MIN 33.33 mls/hr IV.CONT TITRATE PRN Rx#: [id number] DOBUTamine 500 MG/250 ML Premx 250 / 250 500 mg In 250 ml @ 5 MCG/KG/MIN 11.25 mls/hr IV.CONT .[id number] GERMAINE Rx#:[id number] Heparin/D5W 25,000 U/250 mL 25, 250 / 250 000 unit In 250 ml @ Per Protocol IV.CONT TITRATE PRN Rx #:[id number] Versed Inj 50 mg In 50 ml @ 2 150 / 150 50 / 50 MG/HR 2 mls/hr IV.CONT TITRATE PRN Rx#:[id number] Diprivan 1000 mg/100 ml Inj 1, 100 / 100 100 / 100 000 mg In 100 ml @ 5 MCG/KG/MIN 2.25 mls/hr IV.CONT TITRATE PRN Rx#:[id number] NS Inj 1,000 ML @ 84 mls/hr IV. 1000 / 1000 1000 / 1000 CONT .[id number] GERMAINE Rx#:[id number] MVI-12 Inj 10 ML Thiamine Inj 511.2 / 511.2 100 MG Folvite Inj 1 MG In NS Inj 500 ML @ 125 mls/hr IV.SIG Q24H GERMAINE Rx#:[id number] Zosyn 2.25 GM Premix 50 ML @ 50 / 50 50 / 50 100 mls/hr IV.SIG Q8H GERMAINE Rx#: [id number] KCl 20 mEq Premix Inj 20 meq In 100 / 100 300 / 300 100 ml @ 50 mls/hr IV.SIG Q2H GERMAINE Rx#:[id number] KCl 40 mEq Premix Inj 40 meq In 100 / 100 100 ml @ 25 mls/hr IV.SIG Q4H GERMAINE Rx#:[id number] Thiamine Inj 30 MG In NS Inj 100.3 / 100.3 100 ML @ 100.3 mls/hr IV.SIG Q8H GERMAINE Rx#:[id number] Vancomycin Inj 1,250 MG In NS 262.5 / 262.5 Inj 250 ML @ 250 mls/hr IV.SIG ONCE ONE Rx#:[id number] fentaNYL 10 mcg/mL Premix Drip 250 / 250 2,500 mcg In 250 ml @ 50 MCG/HR 5 mls/hr IV.SIG TITRATE PRN Rx #:[id number] Keppra Inj 500 MG In NS Inj 100 105 / 105 105 / 105 ML @ 400 mls/hr IV.SIG Q12H GERMAINE Rx#:[id number] Tube Feeding 0 / 0 Tube Irrigant 60 / 60 Output: Urine 450 / 450 Urine Amount (Catheter) 50 / 50 Coude 50 / 50 Other: # Bowel Movements 0 0 - Constitutional Comments: sedated on ventilator - Routine HEENT Exam Head: Present: normocephalic, atraumatic - Routine Neck Exam Absent: JVD, carotid bruit - Routine Respiratory Exam Present: patient mechanically ventilated - Routine Cardiovascular Exam Present: RRR, S1, S2, S4 - Routine Abdominal Exam Present: soft, normoactive bowel sounds - Routine Skin Exam Present: intact - Urinary Catheter Management Coude Cath placed during this visit: yes Reason for continuing: Hourly intake/output Insertion date: 01/28/18 Insertion time: 13:15 Assessment and Plan - Assessment (1) Cardiac arrest with ventricular fibrillation Code(s): I46.9 - Cardiac arrest, cause unspecified; I49.01 - Ventricular fibrillation Status: Acute (2) Hypokalemia due to inadequate potassium intake Code(s): E87.6 - Hypokalemia Status: Acute (3) Seizure disorder Code(s): G40.909 - Epilepsy, unspecified, not intractable, without status epilepticus Status: Acute - Plan 1. Ventricular fib arrest, likely due to severe cardiomyopathy and hypokalemia. EKG revealed iRBBB with /ST depression in the inferior/lateral leads. Hypothermic protocol for 24 hours Severe hypokalemia K lever 2.2 on admission, replaced IV Amiodarone Echo 01/28/18: LVEF 20-25%. Troponin 0.94 IV Heparin for ACS When renal function improves, will do CTA coronary. 2 .hx of Seizure, not compliant with medications. CADDO in progress 3. Chronic pancreatitis, elevated lipase in 600s 4. hx of Alcoholism. Negative UDS
[2018-01-30 22:26] LABS: Calcium 5.6 mg/dL (8.5-10.1); Carbon Dioxide 35.1 meq/L (21.0-32.0)
[2018-01-30 22:28] LABS: Potassium 2.8 meq/L (3.5-5.1); Troponin I 5.63 ng/mL (0.02-0.05)
[2018-01-30 23:12] LABS: Total Protein 4.7 g/dL (6.4-8.2)
[2018-01-31] MEDS: Insulin NovoLOG Aspart Correctional Sugar Inj SQ SCH ×7 (00:23→23:58)
[2018-01-31] MEDS: Oral Hygiene Kit OROPHARYNG SCH ×5 (00:23→23:58)
[2018-01-31] MEDS: THIAMINE IV.SIG SCH ×4 (00:34→23:56)
[2018-01-31] MEDS: SODIUM CHLOR 0.9% IV.SIG SCH ×4 (00:34→23:56)
[2018-01-31] MEDS ORDERED: Potassium Chlor 10 mEq Premix 10 MEQ/100 ML PIGGYBACK IV.SIG SCH (00:43)
[2018-01-31] MEDS ORDERED: Calcium Chloride Inj 2 GM in Sodium Chlor 0.9% Inj 100 ML IV.SIG ONE (00:43)
[2018-01-31] MEDS ORDERED: CALCIUM CHLORIDE IV.SIG ONE (01:00)
[2018-01-31] MEDS ORDERED: SODIUM CHLOR 0.9% IV.SIG ONE (01:00)
[2018-01-31] MEDS: Midazolam 50 MG/50 ML Inj 50 MG/50 ML BAG IV.CONT PRN (04:08)
[2018-01-31] MEDS: Propofol 1000 mg/100 ml Inj 1,000 MG/100 ML BOTTLE IV.CONT PRN ×3 (04:09→21:20)
[2018-01-31] MEDS: Chlorhexidine Gluconate 2% 1 Pack (2 Cloths) TOPICAL SCH (04:16)
[2018-01-31] MEDS: Potassium Chlor 20 mEq Premix 20 MEQ/100 ML PIGGYBACK IV.SIG SCH ×3 (05:03→10:27)
[2018-01-31] MEDS: Dextrose 5% in Water Inj 1,000 ML IV.SIG SCH (05:04)
[2018-01-31 05:17] LABS: Activated Partial Thrombo Time 53.4 sec (24.3-30.1); INR 1.1 Ratio; Prothrombin Time 10.7 sec (9.8-11.6)
[2018-01-31 05:22] LABS: Albumin 1.8 g/dL (3.4-5.0); Carbon Dioxide 33.3 meq/L (21.0-32.0); Phosphorus 4.8 mg/dL (2.5-4.9); Potassium 3.5 meq/L (3.5-5.1); Total Protein 4.8 g/dL (6.4-8.2)
[2018-01-31 05:23] LABS: ABG Base Excess 5.6 mmol/L (-2-2); ABG PCO2 49 mmHg (38-42); ABG PO2 193 mmHG (61-120)
[2018-01-31] MEDS: Piperacil/Tazo 2.25 GM Premix 50 ML IV.SIG SCH ×3 (05:32→21:07)
[2018-01-31 05:47] LABS: Hematocrit 26.6 % (39.0-51.0); Hemoglobin 8.9 gm/dL (13.0-17.0); Mean Corpuscular HGB Conc 33.6 % (32.0-36.0); Mean Corpuscular Hemoglobin 35.4 pg (27.0-34.0); Mean Corpuscular Volume 105.4 fL (80.0-100.0); Mean Platelet Volume 8.8 fL (7.0-11.0); Platelet Count 129 th/mm3 (150-450); Red Blood Count 2.52 mil/mm3 (4.50-5.90); Red Cell Distribution Width 15.2 % (11.6-17.2); White Blood Count 11.3 th/mm3 (4.0-11.0)
[2018-01-31] MEDS: DOBUTAMINE 500 MG/250 ML IV.CONT SCH (07:22)
--- NOTE | 2018-01-31 08:09 | P.PNCA ---
Subjective Interval history: RN at bedside. No acute issues overnight. Patient now making more urine, 1750 out in the past day. No significant arrhythmias since 01/29. Physical Exam Vital signs: Vital Signs 01/30/18 08:15 01/30/18 08:30 01/30/18 08:45 Temperature 99.0 F 99.0 F 98.8 F Pulse Rate 86 86 84 Respiratory Rate 15 12 Blood Pressure 99/65 L 103/66 101/64 Pulse Oximetry 100 100 100 01/30/18 09:00 01/30/18 09:15 01/30/18 09:30 Temperature 98.8 F 99.0 F 99.0 F Pulse Rate 84 84 84 Respiratory Rate 12 16 12 Blood Pressure 102/65 102/65 100/64 Pulse Oximetry 100 100 100 01/30/18 09:45 01/30/18 10:00 01/30/18 10:15 Temperature 99.0 F 99.0 F 98.8 F Pulse Rate 86 86 83 Respiratory Rate 12 12 12 Blood Pressure 97/62 L 96/60 L 95/58 L Pulse Oximetry 100 100 100 01/30/18 10:30 01/30/18 10:45 01/30/18 11:30 Temperature 98.8 F 98.6 F 98.6 F Pulse Rate 84 84 83 Respiratory Rate 12 11 L Blood Pressure 95/58 L 95/57 L 98/61 L Pulse Oximetry 100 100 100 01/30/18 11:45 01/30/18 12:00 01/30/18 12:15 Temperature 98.6 F 98.6 F 98.6 F Pulse Rate 84 85 84 Respiratory Rate 12 12 21 Blood Pressure 99/61 L 107/67 104/68 Pulse Oximetry 100 100 100 01/30/18 12:30 01/30/18 12:44 01/30/18 12:45 Temperature 98.6 F 98.6 F Pulse Rate 85 83 Respiratory Rate 18 14 24 Blood Pressure 108/69 107/68 Pulse Oximetry 100 100 100 01/30/18 12:47 01/30/18 13:00 01/30/18 13:15 Temperature 98.6 F 98.6 F Pulse Rate 83 83 83 Respiratory Rate 13 28 H 22 Blood Pressure 108/67 106/67 Pulse Oximetry 100 100 01/30/18 13:30 01/30/18 13:45 01/30/18 14:00 Temperature 98.6 F 98.6 F 98.6 F Pulse Rate 83 84 85 Respiratory Rate 27 H 18 24 Blood Pressure 107/68 109/70 103/69 Pulse Oximetry 100 100 100 01/30/18 14:15 01/30/18 14:30 01/30/18 14:45 Temperature 98.6 F 98.4 F 98.4 F Pulse Rate 85 86 85 Respiratory Rate 27 H 18 15 Blood Pressure 105/67 99/56 L 97/57 L Pulse Oximetry 100 100 100 01/30/18 15:00 01/30/18 15:15 01/30/18 15:30 Temperature 98.4 F 98.4 F 98.4 F Pulse Rate 84 87 85 Respiratory Rate 21 15 14 Blood Pressure 99/58 L 103/60 102/58 L Pulse Oximetry 100 100 100 01/30/18 15:45 01/30/18 16:00 01/30/18 16:15 Temperature 98.4 F 98.4 F 98.4 F Pulse Rate 84 83 83 Respiratory Rate 14 17 19 Blood Pressure 103/60 107/61 107/63 Pulse Oximetry 100 100 100 01/30/18 16:30 01/30/18 16:38 01/30/18 16:41 Temperature 98.4 F Pulse Rate 83 83 Respiratory Rate 18 15 14 Blood Pressure 109/63 Pulse Oximetry 99 99 01/30/18 16:45 01/30/18 17:00 01/30/18 17:15 Temperature 98.4 F 98.4 F 98.4 F Pulse Rate 84 84 86 Respiratory Rate 17 17 17 Blood Pressure 109/65 108/64 109/65 Pulse Oximetry 100 99 100 01/30/18 17:30 01/30/18 17:45 01/30/18 18:00 Temperature 98.4 F 98.4 F 98.4 F Pulse Rate 85 85 84 Respiratory Rate 19 13 16 Blood Pressure 109/66 106/65 108/64 Pulse Oximetry 100 100 100 01/30/18 19:00 01/30/18 20:00 01/30/18 20:49 Temperature 98.4 F 98.8 F Pulse Rate 85 88 83 Respiratory Rate 19 14 14 Blood Pressure 110/66 106/62 Pulse Oximetry 100 100 01/30/18 21:00 01/30/18 22:00 01/30/18 22:13 Temperature 98.4 F 98.4 F Pulse Rate 84 82 Respiratory Rate 14 14 14 Blood Pressure 111/64 115/68 Pulse Oximetry 100 100 100 01/30/18 23:00 01/30/18 23:27 01/30/18 23:55 Temperature 98.4 F Pulse Rate 81 81 Respiratory Rate 15 14 14 Blood Pressure 111/68 Pulse Oximetry 100 100 01/31/18 00:00 01/31/18 01:00 01/31/18 02:00 Temperature 98.2 F 98.2 F 98.2 F Pulse Rate 83 83 79 Respiratory Rate 15 14 15 Blood Pressure 110/66 109/65 114/69 Pulse Oximetry 100 100 99 01/31/18 03:00 01/31/18 03:16 01/31/18 04:00 Temperature 98.2 F 98.4 F Pulse Rate 79 80 86 Respiratory Rate 14 14 16 Blood Pressure 112/66 103/63 Pulse Oximetry 98 100 01/31/18 04:10 01/31/18 05:00 01/31/18 06:00 Temperature 98.4 F 98.2 F Pulse Rate 80 80 Respiratory Rate 15 14 15 Blood Pressure 111/68 116/70 Pulse Oximetry 98 100 100 01/31/18 07:00 01/31/18 07:15 01/31/18 07:30 Temperature 98.4 F 98.4 F 98.4 F Pulse Rate 80 93 H 80 Respiratory Rate 14 15 14 Blood Pressure 112/67 113/57 L 116/66 Pulse Oximetry 100 100 99 01/31/18 07:45 01/31/18 08:00 Temperature 98.4 F 98.6 F Pulse Rate 81 94 H Respiratory Rate 14 15 Blood Pressure 115/68 100/57 L Pulse Oximetry 99 100 Intake & Output 01/30/18 01/31/18 01/31/18 18:59 06:59 18:59 Intake Total 3229.0 / 3229.0 1062.1 / 1062.1 250 / 250 Output Total 450 / 450 1300 / 1300 Balance 2779.0 / 2779.0 -237.9 / -237.9 250 / 250 Weight 188 lb 7.924 oz Intake: IV 3229.0 / 3229.0 1012.1 / 1012.1 250 / 250 Cordarone Inj 450 MG In NS Inj 250 / 250 241 ML @ 1 MG/MIN 33.33 mls/hr IV.CONT TITRATE PRN Rx#: [id number] DOBUTamine 500 MG/250 ML Premx 250 / 250 250 / 250 500 mg In 250 ml @ 5 MCG/KG/MIN 11.25 mls/hr IV.CONT .[id number] GERMAINE Rx#:[id number] Heparin/D5W 25,000 U/250 mL 25, 250 / 250 000 unit In 250 ml @ Per Protocol IV.CONT TITRATE PRN Rx #:[id number] Versed Inj 50 mg In 50 ml @ 2 50 / 50 50 / 50 MG/HR 2 mls/hr IV.CONT TITRATE PRN Rx#:[id number] Diprivan 1000 mg/100 ml Inj 1, 100 / 100 100 / 100 000 mg In 100 ml @ 5 MCG/KG/MIN 2.25 mls/hr IV.CONT TITRATE PRN Rx#:[id number] NS Inj 1,000 ML @ 84 mls/hr IV. 1000 / 1000 CONT .[id number] GERMAINE Rx#:[id number] Calcium Chloride Inj 0.68 GM In 106.8 / 106.8 NS Inj 100 ML @ 106.8 mls/hr IV.SIG ONCE ONE Rx#:[id number] MVI-12 Inj 10 ML Thiamine Inj 511.2 / 511.2 100 MG Folvite Inj 1 MG In NS Inj 500 ML @ 125 mls/hr IV.SIG Q24H GERMAINE Rx#:[id number] Zosyn 2.25 GM Premix 50 ML @ 50 / 50 100 / 100 100 mls/hr IV.SIG Q8H GERMAINE Rx#: [id number] KCl 20 mEq Premix Inj 20 meq In 300 / 300 100 ml @ 50 mls/hr IV.SIG Q2H GERMAINE Rx#:[id number] KCl 40 mEq Premix Inj 40 meq In 200 / 200 100 ml @ 25 mls/hr IV.SIG Q4H GERMAINE Rx#:[id number] Thiamine Inj 30 MG In NS Inj 100.3 / 100.3 100.3 / 100.3 100 ML @ 100.3 mls/hr IV.SIG Q8H GERMAINE Rx#:[id number] Vancomycin Inj 1,250 MG In NS 262.5 / 262.5 Inj 250 ML @ 250 mls/hr IV.SIG ONCE ONE Rx#:[id number] fentaNYL 10 mcg/mL Premix Drip 250 / 250 2,500 mcg In 250 ml @ 50 MCG/HR 5 mls/hr IV.SIG TITRATE PRN Rx #:[id number] Keppra Inj 500 MG In NS Inj 100 105 / 105 105 / 105 ML @ 400 mls/hr IV.SIG Q12H GERMAINE Rx#:[id number] Tube Feeding 0 / 0 Tube Irrigant 50 / 50 Output: Urine 450 / 450 Urine Amount (Catheter) 1300 / 1300 Coude 1300 / 1300 Other: # Bowel Movements 0 0 Narrative: GENERAL: Well-developed well-nourished. NECK: No carotid bruits. No JVD. CARDIOVASCULAR: Regular rate and rhythm. No murmur appreciated. RESPIRATORY: Mechanically ventilated. Clear to auscultation. Breath sounds equal bilaterally. MUSCULOSKELETAL: No clubbing or cyanosis. No edema. NEUROLOGICAL: Intubated, sedated. - Urinary Catheter Management Coude Cath placed during this visit: yes Reason for continuing: Hourly intake/output Insertion date: 01/28/18 Insertion time: 13:15 Assessment and Plan - Plan Ventricular fib arrest, likely due to severe cardiomyopathy and hypokalemia. EKG revealed iRBBB with /ST depression in the inferior/lateral leads. Severe hypokalemia K level 2.2 on admission, replaced IV Amiodarone Echo 01/28/18: LVEF 20-25%. Troponin trending down IV Heparin for ACS When renal function improves, plan is for CTA coronary. - Attending Attestation Vfib arrest - cardiomyopathy + severe hypokalemia (reversible cause) will need LifeVest upon DC. I do not believe he qualifies for ICD for secondary prevention given severe hypokalemia. will discuss with EP and see if they want to be formally involved cardiomyopathy - more likely nonischemic given age. elevated troponin likely due to cardiac arrest and not primary thrombotic mediated event. agree with CTA coronary when clinically stable. heparin gtt till then. will need to slow HR down closer to 60 bpm for CTA but limited by SBP and Cr due to ATN. Wait for Cr to improve Stop amiodarone gtt. will be in system for extended time and K+ corrected. unable to tolerate BB due to dobutamine gtt requirement
[2018-01-31] MEDS: Multivitamin Inj 10 ML, Folic Acid Inj 1 MG in Sodium Chlor 0.9% Inj 500 ML IV.SIG SCH (08:16)
[2018-01-31] MEDS: Aspirin 325 MG Tablet PO SCH (08:17)
[2018-01-31] MEDS: Pantoprazole Inj 40 MG Vial IV.PUSH SCH (08:17)
[2018-01-31] MEDS: Senna/Docusate Sodium 8.6/50 MG Tablet PO SCH ×2 (08:18→21:07)
[2018-01-31] MEDS: Chlorhexidine 0.12% Oral Kit 15 ML UDC OROPHARYNG SCH ×2 (08:40→21:06)
--- NOTE | 2018-01-31 10:08 | P.PNNP ---
Subjective Interval history: Remains intubated, on multiple infusions. All pressors off except dobutamine. His creatinine is higher but but he made 1.3L urine output overnight. On 35% FiO2. <Laura Petit - Last Filed: 01/31/18 10:03> Physical Exam Vital signs: Vital Signs 01/30/18 10:15 01/30/18 10:30 01/30/18 10:45 Temperature 98.8 F 98.8 F 98.6 F Pulse Rate 83 84 84 Respiratory Rate 12 12 Blood Pressure 95/58 L 95/58 L 95/57 L Pulse Oximetry 100 100 100 01/30/18 11:30 01/30/18 11:45 01/30/18 12:00 Temperature 98.6 F 98.6 F 98.6 F Pulse Rate 83 84 85 Respiratory Rate 11 L 12 12 Blood Pressure 98/61 L 99/61 L 107/67 Pulse Oximetry 100 100 100 01/30/18 12:15 01/30/18 12:30 01/30/18 12:44 Temperature 98.6 F 98.6 F Pulse Rate 84 85 Respiratory Rate 21 18 14 Blood Pressure 104/68 108/69 Pulse Oximetry 100 100 100 01/30/18 12:45 01/30/18 12:47 01/30/18 13:00 Temperature 98.6 F 98.6 F Pulse Rate 83 83 83 Respiratory Rate 24 13 28 H Blood Pressure 107/68 108/67 Pulse Oximetry 100 100 01/30/18 13:15 01/30/18 13:30 01/30/18 13:45 Temperature 98.6 F 98.6 F 98.6 F Pulse Rate 83 83 84 Respiratory Rate 22 27 H 18 Blood Pressure 106/67 107/68 109/70 Pulse Oximetry 100 100 100 01/30/18 14:00 01/30/18 14:15 01/30/18 14:30 Temperature 98.6 F 98.6 F 98.4 F Pulse Rate 85 85 86 Respiratory Rate 24 27 H 18 Blood Pressure 103/69 105/67 99/56 L Pulse Oximetry 100 100 100 01/30/18 14:45 01/30/18 15:00 01/30/18 15:15 Temperature 98.4 F 98.4 F 98.4 F Pulse Rate 85 84 87 Respiratory Rate 15 21 15 Blood Pressure 97/57 L 99/58 L 103/60 Pulse Oximetry 100 100 100 01/30/18 15:30 01/30/18 15:45 01/30/18 16:00 Temperature 98.4 F 98.4 F 98.4 F Pulse Rate 85 84 83 Respiratory Rate 14 14 17 Blood Pressure 102/58 L 103/60 107/61 Pulse Oximetry 100 100 100 01/30/18 16:15 01/30/18 16:30 01/30/18 16:38 Temperature 98.4 F 98.4 F Pulse Rate 83 83 Respiratory Rate 19 18 15 Blood Pressure 107/63 109/63 Pulse Oximetry 100 99 99 01/30/18 16:41 01/30/18 16:45 01/30/18 17:00 Temperature 98.4 F 98.4 F Pulse Rate 83 84 84 Respiratory Rate 14 17 17 Blood Pressure 109/65 108/64 Pulse Oximetry 100 99 01/30/18 17:15 01/30/18 17:30 01/30/18 17:45 Temperature 98.4 F 98.4 F 98.4 F Pulse Rate 86 85 85 Respiratory Rate 17 19 13 Blood Pressure 109/65 109/66 106/65 Pulse Oximetry 100 100 100 01/30/18 18:00 01/30/18 19:00 01/30/18 20:00 Temperature 98.4 F 98.4 F 98.8 F Pulse Rate 84 85 88 Respiratory Rate 16 19 14 Blood Pressure 108/64 110/66 106/62 Pulse Oximetry 100 100 100 01/30/18 20:49 01/30/18 21:00 01/30/18 22:00 Temperature 98.4 F 98.4 F Pulse Rate 83 84 82 Respiratory Rate 14 14 14 Blood Pressure 111/64 115/68 Pulse Oximetry 100 100 01/30/18 22:13 01/30/18 23:00 01/30/18 23:27 Temperature 98.4 F Pulse Rate 81 81 Respiratory Rate 14 15 14 Blood Pressure 111/68 Pulse Oximetry 100 100 01/30/18 23:55 01/31/18 00:00 01/31/18 01:00 Temperature 98.2 F 98.2 F Pulse Rate 83 83 Respiratory Rate 14 15 14 Blood Pressure 110/66 109/65 Pulse Oximetry 100 100 100 01/31/18 02:00 01/31/18 03:00 01/31/18 03:16 Temperature 98.2 F 98.2 F Pulse Rate 79 79 80 Respiratory Rate 15 14 14 Blood Pressure 114/69 112/66 Pulse Oximetry 99 98 01/31/18 04:00 01/31/18 04:10 01/31/18 05:00 Temperature 98.4 F 98.4 F Pulse Rate 86 80 Respiratory Rate 16 15 14 Blood Pressure 103/63 111/68 Pulse Oximetry 100 98 100 01/31/18 06:00 01/31/18 07:00 01/31/18 07:15 Temperature 98.2 F 98.4 F 98.4 F Pulse Rate 80 80 93 H Respiratory Rate 15 14 15 Blood Pressure 116/70 112/67 113/57 L Pulse Oximetry 100 100 100 01/31/18 07:30 01/31/18 07:45 01/31/18 08:00 Temperature 98.4 F 98.4 F 98.6 F Pulse Rate 80 81 94 H Respiratory Rate 14 14 15 Blood Pressure 116/66 115/68 100/57 L Pulse Oximetry 99 99 100 01/31/18 08:57 Temperature Pulse Rate 80 Respiratory Rate 18 Blood Pressure Pulse Oximetry 100 Intake & Output 01/30/18 01/31/18 01/31/18 18:59 06:59 18:59 Intake Total 3229.0 / 3229.0 1062.1 / 1062.1 550 / 550 Output Total 450 / 450 1300 / 1300 Balance 2779.0 / 2779.0 -237.9 / -237.9 550 / 550 Weight 85.5 kg Intake: IV 3229.0 / 3229.0 1012.1 / 1012.1 550 / 550 Cordarone Inj 450 MG In NS Inj 250 / 250 200 / 200 241 ML @ 1 MG/MIN 33.33 mls/hr IV.CONT TITRATE PRN Rx#: [id number] DOBUTamine 500 MG/250 ML Premx 250 / 250 250 / 250 500 mg In 250 ml @ 5 MCG/KG/MIN 11.25 mls/hr IV.CONT .[id number] PENDING SALE TO [facility] Rx#:[id number] Heparin/D5W 25,000 U/250 mL 25, 250 / 250 000 unit In 250 ml @ Per Protocol IV.CONT TITRATE PRN Rx #:[id number] Versed Inj 50 mg In 50 ml @ 2 50 / 50 50 / 50 MG/HR 2 mls/hr IV.CONT TITRATE PRN Rx#:[id number] Diprivan 1000 mg/100 ml Inj 1, 100 / 100 100 / 100 000 mg In 100 ml @ 5 MCG/KG/MIN 2.25 mls/hr IV.CONT TITRATE PRN Rx#:[id number] NS Inj 1,000 ML @ 84 mls/hr IV. 1000 / 1000 CONT .[id number] GERMAINE Rx#:[id number] Calcium Chloride Inj 0.68 GM In 106.8 / 106.8 NS Inj 100 ML @ 106.8 mls/hr IV.SIG ONCE ONE Rx#:[id number] MVI-12 Inj 10 ML Thiamine Inj 511.2 / 511.2 100 MG Folvite Inj 1 MG In NS Inj 500 ML @ 125 mls/hr IV.SIG Q24H GERMAINE Rx#:[id number] Zosyn 2.25 GM Premix 50 ML @ 50 / 50 100 / 100 100 mls/hr IV.SIG Q8H PENDING SALE TO [facility] Rx#: [id number] KCl 20 mEq Premix Inj 20 meq In 300 / 300 100 / 100 100 ml @ 50 mls/hr IV.SIG Q2H GERMAINE Rx#:[id number] KCl 40 mEq Premix Inj 40 meq In 200 / 200 100 ml @ 25 mls/hr IV.SIG Q4H PENDING SALE TO [facility] Rx#:[id number] Thiamine Inj 30 MG In NS Inj 100.3 / 100.3 100.3 / 100.3 100 ML @ 100.3 mls/hr IV.SIG Q8H PENDING SALE TO [facility] Rx#:[id number] Vancomycin Inj 1,250 MG In NS 262.5 / 262.5 Inj 250 ML @ 250 mls/hr IV.SIG ONCE ONE Rx#:[id number] fentaNYL 10 mcg/mL Premix Drip 250 / 250 2,500 mcg In 250 ml @ 50 MCG/HR 5 mls/hr IV.SIG TITRATE PRN Rx #:[id number] Keppra Inj 500 MG In NS Inj 100 105 / 105 105 / 105 ML @ 400 mls/hr IV.SIG Q12H GERMAINE Rx#:[id number] Tube Feeding 0 / 0 Tube Irrigant 50 / 50 Output: Urine 450 / 450 Urine Amount (Catheter) 1300 / 1300 Coude 1300 / 1300 Other: # Bowel Movements 0 0 - Constitutional no acute distress - Routine Neck Exam Present: supple, full ROM - Routine Respiratory Exam Present: patient mechanically ventilated, CTA bilaterally - Routine Cardiovascular Exam Present: RRR, S1, S2 - Routine Abdominal Exam Present: soft, normoactive bowel sounds - Routine Extremities Exam Present: edema, pulses intact - Routine Skin Exam Present: intact, dry, warm - Routine Neurological Exam intubated, sedated, unresponsive. - Routine Psychiatric Exam Present: unable to assess - Urinary Catheter Management Coude Cath placed during this visit: yes Reason for continuing: Hourly intake/output Insertion date: 01/28/18 Insertion time: 13:15 <Laura Petit - Last Filed: 01/31/18 10:03> Vital signs: Vital Signs 01/30/18 12:15 01/30/18 12:30 01/30/18 12:44 Temperature 98.6 F 98.6 F Pulse Rate 84 85 Respiratory Rate 21 18 14 Blood Pressure 104/68 108/69 Pulse Oximetry 100 100 100 01/30/18 12:45 01/30/18 12:47 01/30/18 13:00 Temperature 98.6 F 98.6 F Pulse Rate 83 83 83 Respiratory Rate 24 13 28 H Blood Pressure 107/68 108/67 Pulse Oximetry 100 100 01/30/18 13:15 01/30/18 13:30 01/30/18 13:45 Temperature 98.6 F 98.6 F 98.6 F Pulse Rate 83 83 84 Respiratory Rate 22 27 H 18 Blood Pressure 106/67 107/68 109/70 Pulse Oximetry 100 100 100 01/30/18 14:00 01/30/18 14:15 01/30/18 14:30 Temperature 98.6 F 98.6 F 98.4 F Pulse Rate 85 85 86 Respiratory Rate 24 27 H 18 Blood Pressure 103/69 105/67 99/56 L Pulse Oximetry 100 100 100 01/30/18 14:45 01/30/18 15:00 01/30/18 15:15 Temperature 98.4 F 98.4 F 98.4 F Pulse Rate 85 84 87 Respiratory Rate 15 21 15 Blood Pressure 97/57 L 99/58 L 103/60 Pulse Oximetry 100 100 100 01/30/18 15:30 01/30/18 15:45 01/30/18 16:00 Temperature 98.4 F 98.4 F 98.4 F Pulse Rate 85 84 83 Respiratory Rate 14 14 17 Blood Pressure 102/58 L 103/60 107/61 Pulse Oximetry 100 100 100 01/30/18 16:15 01/30/18 16:30 01/30/18 16:38 Temperature 98.4 F 98.4 F Pulse Rate 83 83 Respiratory Rate 19 18 15 Blood Pressure 107/63 109/63 Pulse Oximetry 100 99 99 01/30/18 16:41 01/30/18 16:45 01/30/18 17:00 Temperature 98.4 F 98.4 F Pulse Rate 83 84 84 Respiratory Rate 14 17 17 Blood Pressure 109/65 108/64 Pulse Oximetry 100 99 01/30/18 17:15 01/30/18 17:30 01/30/18 17:45 Temperature 98.4 F 98.4 F 98.4 F Pulse Rate 86 85 85 Respiratory Rate 17 19 13 Blood Pressure 109/65 109/66 106/65 Pulse Oximetry 100 100 100 01/30/18 18:00 01/30/18 19:00 01/30/18 20:00 Temperature 98.4 F 98.4 F 98.8 F Pulse Rate 84 85 88 Respiratory Rate 16 19 14 Blood Pressure 108/64 110/66 106/62 Pulse Oximetry 100 100 100 01/30/18 20:49 01/30/18 21:00 01/30/18 22:00 Temperature 98.4 F 98.4 F Pulse Rate 83 84 82 Respiratory Rate 14 14 14 Blood Pressure 111/64 115/68 Pulse Oximetry 100 100 01/30/18 22:13 01/30/18 23:00 01/30/18 23:27 Temperature 98.4 F Pulse Rate 81 81 Respiratory Rate 14 15 14 Blood Pressure 111/68 Pulse Oximetry 100 100 01/30/18 23:55 01/31/18 00:00 01/31/18 01:00 Temperature 98.2 F 98.2 F Pulse Rate 83 83 Respiratory Rate 14 15 14 Blood Pressure 110/66 109/65 Pulse Oximetry 100 100 100 01/31/18 02:00 01/31/18 03:00 01/31/18 03:16 Temperature 98.2 F 98.2 F Pulse Rate 79 79 80 Respiratory Rate 15 14 14 Blood Pressure 114/69 112/66 Pulse Oximetry 99 98 01/31/18 04:00 01/31/18 04:10 01/31/18 05:00 Temperature 98.4 F 98.4 F Pulse Rate 86 80 Respiratory Rate 16 15 14 Blood Pressure 103/63 111/68 Pulse Oximetry 100 98 100 01/31/18 06:00 01/31/18 07:00 01/31/18 07:15 Temperature 98.2 F 98.4 F 98.4 F Pulse Rate 80 80 93 H Respiratory Rate 15 14 15 Blood Pressure 116/70 112/67 113/57 L Pulse Oximetry 100 100 100 01/31/18 07:30 01/31/18 07:45 01/31/18 08:00 Temperature 98.4 F 98.4 F 98.6 F Pulse Rate 80 81 94 H Respiratory Rate 14 14 15 Blood Pressure 116/66 115/68 100/57 L Pulse Oximetry 99 99 100 01/31/18 08:57 01/31/18 11:55 Temperature Pulse Rate 80 72 Respiratory Rate 18 15 Blood Pressure Pulse Oximetry 100 100 Intake & Output 01/30/18 01/31/18 01/31/18 18:59 06:59 18:59 Intake Total 3229.0 / 3229.0 1062.1 / 1062.1 970.3 / 970.3 Output Total 450 / 450 1300 / 1300 Balance 2779.0 / 2779.0 -237.9 / -237.9 970.3 / 970.3 Weight 85.5 kg Intake: IV 3229.0 / 3229.0 1012.1 / 1012.1 970.3 / 970.3 Cordarone Inj 450 MG In NS Inj 250 / 250 200 / 200 241 ML @ 1 MG/MIN 33.33 mls/hr IV.CONT TITRATE PRN Rx#: [id number] DOBUTamine 500 MG/250 ML Premx 250 / 250 250 / 250 500 mg In 250 ml @ 5 MCG/KG/MIN 11.25 mls/hr IV.CONT .[id number] GERMAINE Rx#:[id number] Heparin/D5W 25,000 U/250 mL 25, 250 / 250 000 unit In 250 ml @ Per Protocol IV.CONT TITRATE PRN Rx #:[id number] Versed Inj 50 mg In 50 ml @ 2 50 / 50 50 / 50 MG/HR 2 mls/hr IV.CONT TITRATE PRN Rx#:[id number] Diprivan 1000 mg/100 ml Inj 1, 100 / 100 100 / 100 100 / 100 000 mg In 100 ml @ 5 MCG/KG/MIN 2.25 mls/hr IV.CONT TITRATE PRN Rx#:[id number] NS Inj 1,000 ML @ 84 mls/hr IV. 1000 / 1000 CONT .[id number] GERMAINE Rx#:[id number] Calcium Chloride Inj 2 GM In NS 106.8 / 106.8 120 / 120 Inj 100 ML @ 120 mls/hr IV.SIG ONCE ONE Rx#:[id number] MVI-12 Inj 10 ML Thiamine Inj 511.2 / 511.2 100 MG Folvite Inj 1 MG In NS Inj 500 ML @ 125 mls/hr IV.SIG Q24H PENDING SALE TO [facility] Rx#:[id number] Zosyn 2.25 GM Premix 50 ML @ 50 / 50 100 / 100 100 mls/hr IV.SIG Q8H PENDING SALE TO [facility] Rx#: [id number] KCl 20 mEq Premix Inj 20 meq In 300 / 300 200 / 200 100 ml @ 50 mls/hr IV.SIG Q2H PENDING SALE TO [facility] Rx#:[id number] KCl 40 mEq Premix Inj 40 meq In 200 / 200 100 ml @ 25 mls/hr IV.SIG Q4H PENDING SALE TO [facility] Rx#:[id number] Thiamine Inj 30 MG In NS Inj 100.3 / 100.3 100.3 / 100.3 100.3 / 100.3 100 ML @ 100.3 mls/hr IV.SIG Q8H PENDING SALE TO [facility] Rx#:[id number] Vancomycin Inj 1,250 MG In NS 262.5 / 262.5 Inj 250 ML @ 250 mls/hr IV.SIG ONCE ONE Rx#:[id number] fentaNYL 10 mcg/mL Premix Drip 250 / 250 2,500 mcg In 250 ml @ 50 MCG/HR 5 mls/hr IV.SIG TITRATE PRN Rx #:[id number] Keppra Inj 500 MG In NS Inj 100 105 / 105 105 / 105 ML @ 400 mls/hr IV.SIG Q12H GERMAINE Rx#:[id number] Tube Feeding 0 / 0 Tube Irrigant 50 / 50 Output: Urine 450 / 450 Urine Amount (Catheter) 1300 / 1300 Coude 1300 / 1300 Other: # Bowel Movements 0 0 - Urinary Catheter Management Coude Cath placed during this visit: no <Tj Ruby - Last Filed: 01/31/18 12:08> Assessment and Plan - Assessment (1) Acute kidney failure Code(s): N17.9 - Acute kidney failure, unspecified Status: Acute Plan: Most likely suffered ATN. Creatinine is higher, but he has made urine. Give another dose of Bumex, 2mg IV. Repeat labs daily. Continue to replace potassium. On multivitamin IVF. Minimize other fluids. Avoid nephrotoxic agents. Imaging negative for obstructions. May need renal replacement therapy if renal function further declines. (2) Hypokalemia Code(s): E87.6 - Hypokalemia Status: Acute Plan: Continue to replace carefully. (3) Cardiomyopathy Code(s): I42.9 - Cardiomyopathy, unspecified Status: Acute Plan: Troponin is high, cardiology following. Alcohol induced cardiomyopathy is a possibility. He also had CPR. Also could be secondary to chronic hypokalemia. Agree with thiamine infusion. (4) Acid-base imbalance Code(s): E87.4 - Mixed disorder of acid-base balance Status: Acute Plan: Patient has mixed acid disorder: respiratory acidosis and metabolic alkalosis. Improving. Correct respiratory acidosis with ventilator adjustment. <Laura Petit - Last Filed: 01/31/18 10:03> - Assessment (1) Acute kidney failure Code(s): N17.9 - Acute kidney failure, unspecified Status: Acute (2) Hypokalemia Code(s): E87.6 - Hypokalemia Status: Acute (3) Cardiomyopathy Code(s): I42.9 - Cardiomyopathy, unspecified Status: Acute (4) Acid-base imbalance Code(s): E87.4 - Mixed disorder of acid-base balance Status: Acute - Attending Attestation patient was seen and examined. Agree with above assessment and plan. Improvement in urine output. No immediate need for dialysis. He has metabolic alkalosis. <Tj Ruby - Last Filed: 01/31/18 12:08>
--- NOTE | 2018-01-31 11:27 | P.PNCC ---
Subjective Subjective Remarks/Hospital Course: Hospital Course: This is a 32-year-old male. Admission 01/28/2018. Past medical history includes seizure disorder/noncompliant with levetiracetam, previous EtOH sober for 4 weeks, anorexia, gastroesophageal reflux disease and chronic pancreatitis. Patient presented to [facility] 01/28/2018 with a two-day history of nausea vomiting and diarrhea. Patient's mother/discussed at bedside stated she had just had a "stomach flu" which she has currently recovered. Mom states that the patient has become fairly dehydrated is been having some cramping of his hands. She is worried that he is getting dehydrated and his potassium might begin low. He was unable to tolerate a banana so she gave him some potassium pills p.o. which she also did not tolerate and threw up. Sober 4 weeks according to mother. Patient was noted to have a low potassium at 2.0. Creatinine of 4.0. This is in line with his previous hospitalizations for acute dehydration. Lipase was slightly elevated. Patient does have a history of seizure disorder which is not compliant with levetiracetam. ED physician was called into room because the RN believed he had a seizure. Patient was unresponsive. Mother states this was not like any seizure that she had seen. Pulses not palpable therefore CPR was initiated. Initial rhythm was V. fib. Patient received amiodarone, lidocaine, epinephrine, bicarbonate, magnesium during the 35 minute code with return of spontaneous circulation after 35 minutes. Pupils are about 9 mils bilaterally and 6. When I saw the patient patient was actively thrashing moving all 4 extremities spontaneously but not to command. Pupils are round 8 mm bilaterally and nonreactive. Brain CT revealed no acute findings. CT thorax revealed a left upper and lower lobe. CT abdomen pelvis pending at time of dictation. Likely, troponin pending. EKG revealed incomplete right bundle block with ST depression in the inferior and lateral leads. Cardiology consulted. They will evaluate after stat echocardiogram and troponins been completed. Potassium will be replaced pending BMP Subjective: 01/29: persistently in shock. following commands this AM. trop uptrended overnight and now > 40. on levo @ 10, vasopressin. bedside echo with persistence of his global severe LV systolic dysfunction. IVC dilated without respiratory variation. initially attempted therapeutic hypothermia, but became arrhythmogenic and neurologic exam improved and now following commands, so hypothermia aborted. persistently hypokalemic and hypophosphatemic this AM. in addition, remains with severe metabolic alkalosis. 01/30: Troponin trending down, continues to have severe hypokalemia and metabolic alkalosis. Creatinine continues to trend up, only produced 200 cc of urine over the past 24 hours. 01/31: Patient seen by nephrology yesterday and given bumex, urine output dramatically increased, potassium improved with aggressive repletion, pressors now off and dobutamine at 5. Objective Vital Signs / I&O: Vital Signs 01/30/18 11:30 01/30/18 11:45 01/30/18 12:00 Temperature 98.6 F 98.6 F 98.6 F Pulse Rate 83 84 85 Respiratory Rate 11 L 12 12 Blood Pressure 98/61 L 99/61 L 107/67 Pulse Oximetry 100 100 100 01/30/18 12:15 01/30/18 12:30 01/30/18 12:44 Temperature 98.6 F 98.6 F Pulse Rate 84 85 Respiratory Rate 21 18 14 Blood Pressure 104/68 108/69 Pulse Oximetry 100 100 100 01/30/18 12:45 01/30/18 12:47 01/30/18 13:00 Temperature 98.6 F 98.6 F Pulse Rate 83 83 83 Respiratory Rate 24 13 28 H Blood Pressure 107/68 108/67 Pulse Oximetry 100 100 01/30/18 13:15 01/30/18 13:30 01/30/18 13:45 Temperature 98.6 F 98.6 F 98.6 F Pulse Rate 83 83 84 Respiratory Rate 22 27 H 18 Blood Pressure 106/67 107/68 109/70 Pulse Oximetry 100 100 100 01/30/18 14:00 01/30/18 14:15 01/30/18 14:30 Temperature 98.6 F 98.6 F 98.4 F Pulse Rate 85 85 86 Respiratory Rate 24 27 H 18 Blood Pressure 103/69 105/67 99/56 L Pulse Oximetry 100 100 100 01/30/18 14:45 01/30/18 15:00 01/30/18 15:15 Temperature 98.4 F 98.4 F 98.4 F Pulse Rate 85 84 87 Respiratory Rate 15 21 15 Blood Pressure 97/57 L 99/58 L 103/60 Pulse Oximetry 100 100 100 01/30/18 15:30 01/30/18 15:45 01/30/18 16:00 Temperature 98.4 F 98.4 F 98.4 F Pulse Rate 85 84 83 Respiratory Rate 14 14 17 Blood Pressure 102/58 L 103/60 107/61 Pulse Oximetry 100 100 100 01/30/18 16:15 01/30/18 16:30 01/30/18 16:38 Temperature 98.4 F 98.4 F Pulse Rate 83 83 Respiratory Rate 19 18 15 Blood Pressure 107/63 109/63 Pulse Oximetry 100 99 99 01/30/18 16:41 01/30/18 16:45 01/30/18 17:00 Temperature 98.4 F 98.4 F Pulse Rate 83 84 84 Respiratory Rate 14 17 17 Blood Pressure 109/65 108/64 Pulse Oximetry 100 99 01/30/18 17:15 01/30/18 17:30 01/30/18 17:45 Temperature 98.4 F 98.4 F 98.4 F Pulse Rate 86 85 85 Respiratory Rate 17 19 13 Blood Pressure 109/65 109/66 106/65 Pulse Oximetry 100 100 100 01/30/18 18:00 01/30/18 19:00 01/30/18 20:00 Temperature 98.4 F 98.4 F 98.8 F Pulse Rate 84 85 88 Respiratory Rate 16 19 14 Blood Pressure 108/64 110/66 106/62 Pulse Oximetry 100 100 100 01/30/18 20:49 01/30/18 21:00 01/30/18 22:00 Temperature 98.4 F 98.4 F Pulse Rate 83 84 82 Respiratory Rate 14 14 14 Blood Pressure 111/64 115/68 Pulse Oximetry 100 100 01/30/18 22:13 01/30/18 23:00 01/30/18 23:27 Temperature 98.4 F Pulse Rate 81 81 Respiratory Rate 14 15 14 Blood Pressure 111/68 Pulse Oximetry 100 100 01/30/18 23:55 01/31/18 00:00 01/31/18 01:00 Temperature 98.2 F 98.2 F Pulse Rate 83 83 Respiratory Rate 14 15 14 Blood Pressure 110/66 109/65 Pulse Oximetry 100 100 100 01/31/18 02:00 01/31/18 03:00 01/31/18 03:16 Temperature 98.2 F 98.2 F Pulse Rate 79 79 80 Respiratory Rate 15 14 14 Blood Pressure 114/69 112/66 Pulse Oximetry 99 98 01/31/18 04:00 01/31/18 04:10 01/31/18 05:00 Temperature 98.4 F 98.4 F Pulse Rate 86 80 Respiratory Rate 16 15 14 Blood Pressure 103/63 111/68 Pulse Oximetry 100 98 100 01/31/18 06:00 01/31/18 07:00 01/31/18 07:15 Temperature 98.2 F 98.4 F 98.4 F Pulse Rate 80 80 93 H Respiratory Rate 15 14 15 Blood Pressure 116/70 112/67 113/57 L Pulse Oximetry 100 100 100 01/31/18 07:30 01/31/18 07:45 01/31/18 08:00 Temperature 98.4 F 98.4 F 98.6 F Pulse Rate 80 81 94 H Respiratory Rate 14 14 15 Blood Pressure 116/66 115/68 100/57 L Pulse Oximetry 99 99 100 01/31/18 08:57 Temperature Pulse Rate 80 Respiratory Rate 18 Blood Pressure Pulse Oximetry 100 Intake & Output 01/30/18 01/31/18 01/31/18 18:59 06:59 18:59 Intake Total 3229.0 / 3229.0 1062.1 / 1062.1 970.3 / 970.3 Output Total 450 / 450 1300 / 1300 Balance 2779.0 / 2779.0 -237.9 / -237.9 970.3 / 970.3 Weight 85.5 kg Intake: IV 3229.0 / 3229.0 1012.1 / 1012.1 970.3 / 970.3 Cordarone Inj 450 MG In NS Inj 250 / 250 200 / 200 241 ML @ 1 MG/MIN 33.33 mls/hr IV.CONT TITRATE PRN Rx#: [id number] DOBUTamine 500 MG/250 ML Premx 250 / 250 250 / 250 500 mg In 250 ml @ 5 MCG/KG/MIN 11.25 mls/hr IV.CONT .[id number] [facility] Rx#:[id number] Heparin/D5W 25,000 U/250 mL 25, 250 / 250 000 unit In 250 ml @ Per Protocol IV.CONT TITRATE PRN Rx #:[id number] Versed Inj 50 mg In 50 ml @ 2 50 / 50 50 / 50 MG/HR 2 mls/hr IV.CONT TITRATE PRN Rx#:[id number] Diprivan 1000 mg/100 ml Inj 1, 100 / 100 100 / 100 100 / 100 000 mg In 100 ml @ 5 MCG/KG/MIN 2.25 mls/hr IV.CONT TITRATE PRN Rx#:[id number] NS Inj 1,000 ML @ 84 mls/hr IV. 1000 / 1000 CONT .[id number] GERMAINE Rx#:[id number] Calcium Chloride Inj 2 GM In NS 106.8 / 106.8 120 / 120 Inj 100 ML @ 120 mls/hr IV.SIG ONCE ONE Rx#:[id number] MVI-12 Inj 10 ML Thiamine Inj 511.2 / 511.2 100 MG Folvite Inj 1 MG In NS Inj 500 ML @ 125 mls/hr IV.SIG Q24H [facility] Rx#:[id number] Zosyn 2.25 GM Premix 50 ML @ 50 / 50 100 / 100 100 mls/hr IV.SIG Q8H [facility] Rx#: [id number] KCl 20 mEq Premix Inj 20 meq In 300 / 300 200 / 200 100 ml @ 50 mls/hr IV.SIG Q2H [facility] Rx#:[id number] KCl 40 mEq Premix Inj 40 meq In 200 / 200 100 ml @ 25 mls/hr IV.SIG Q4H [facility] Rx#:[id number] Thiamine Inj 30 MG In NS Inj 100.3 / 100.3 100.3 / 100.3 100.3 / 100.3 100 ML @ 100.3 mls/hr IV.SIG Q8H [facility] Rx#:[id number] Vancomycin Inj 1,250 MG In NS 262.5 / 262.5 Inj 250 ML @ 250 mls/hr IV.SIG ONCE ONE Rx#:[id number] fentaNYL 10 mcg/mL Premix Drip 250 / 250 2,500 mcg In 250 ml @ 50 MCG/HR 5 mls/hr IV.SIG TITRATE PRN Rx #:[id number] Keppra Inj 500 MG In NS Inj 100 105 / 105 105 / 105 ML @ 400 mls/hr IV.SIG Q12H [facility] Rx#:[id number] Tube Feeding 0 / 0 Tube Irrigant 50 / 50 Output: Urine 450 / 450 Urine Amount (Catheter) 1300 / 1300 Coude 1300 / 1300 Other: # Bowel Movements 0 0 Result Diagrams: 01/31/18 05:00 01/31/18 04:00 Objective Remarks: GENERAL: Intubated and sedated, no current agitation HEENT: NCAT, PERRL, ETT in place NECK: Trachea midline CHEST: Mechanical breath sounds bilaterally. Subclavian TLC present on right. CARDIOVASCULAR: Normal rate, regular rhythm ABDOMEN: Soft, non-tender in all quadrants MUSCULOSKELETAL: Pulses 2+. No peripheral edema. NEUROLOGICAL: RASS -1, appears comfortable, opens eyes to tactile stimuli. Assessment and Plan - Assessment and Plan Plan: Assessment: 32-year-old male with history of EtOH abuse and chronic pancreatitis who presents with severe hypokalemia, dehydration, and cardiac arrest. Patient has persistence of his severe LV systolic dysfunction and is in persistent cardiogenic shock. Will start inotropic therapy with dobutamine. Continue to trend lactates. Trend troponins. V. fib cardiac arrest is concerning for coronary disease, although patient is quite young. Will start heparin drip and aspirin until coronary artery disease can be definitively ruled out, we will trend troponins. Aggressively replace electrolytes and we will have to start IV Diamox to help with his metabolic alkalosis, having now ensure that the patient is intravascularly volume replete. Remains very critically ill with multiple organ systems are life-threatening at this time. Neuro/Psych: Seizure disorder NOS History of EtOH sober 4 weeks History of anorexia/bulimia Currently on versed/fentanyl/propofol drips for sedation/analgesia Goal of RASS -1 to -2, patient overall less agitated than yesterday. Would like to start slowly weaning down sedation, starting with versed, as propofol has already been decreased Daily sedation vacations as tolerated CT brain 01/28 revealed no acute intracranial findings Continue keppra 500 BID (home dose) Continue holding quetiapine 50 mg 3 times daily/home medication Patient has a previous history of heavy EtOH abuse and bulimia as per mother-- will start empiric treatment for beriberi (see below) Delirium precautions CV: In-hospital cardiac arrest V. fib arrest Cardiogenic Shock Severe LV systolic dysfunction EKG revealed incomplete right bundle branch block/ST depression in the inferior/ lateral leads. Will need cardiac perfusion study when creatinine improves. Currently on dobutamine at 5 mcg/kg/min, amio off, vaso/ levo off for >12 hours. Will decrease dobutamine to 2.5 mcg/kg/min as MAPs are >80 currently. echo 01/28: severe LV systolic dysfunction, EF 20-25%. mildly depressed RV function. no valvular lesions. Continue heparin drip, ASA daily Given the patient's history of heavy alcohol abuse/ bulimia, presentation with multiple electrolyte derangements, and new cardiomyopathy, will treat empirically for beriberi with thiamine and concurrent repletion of folate. The patient's mother is not sure if the patient was taking any laxatives/ ipecac for weight loss, but apparently ipecac is also known to be cardiotoxic and can cause cardiomyopathy and life-threatening arrhythmias (although there is no particular antidote, only supportive care). Resp: Acute hypoxic respiratory failure Left upper/lower lobe pulmonary infiltrates Ventilator bundle Albuterol/ipratropium aerosols every 4 hours with albuterol aerosols every 2 hours as needed for dyspnea Currently on 14/500/8/35%, ABG improved (7.40/49/193/30/5.6) CT thorax revealed left upper/lower lobe infiltrates Will start daily SBT tomorrow as long as patient's hemodynamics continue to improve GI: Elevated lipase/mild pancreatitis Left hepatic pneumobilia history of chronic pancreatitis Patient is now off of levo/ vaso and we are weaning dobutamine; will start trickle TFs (nepro) today Pantoprazole for GI prophylaxis. On pantoprazole 40 mg daily at home. Docusate serum/senna 1 tablet twice daily for bowel regimen CT abdomen/pelvis revealed mild pancreatitis. There was a small amount of hepatic gas seen on CT scan (likely pneumobilia, cannot exclude portal venous gas) but RUQ US showed no acute pathology. Renal/ : Acute kidney injury Machado catheter for accurate I's and O's in a critically ill patient Creatinine continues to trend up but he is responding to bumex. No solid indication for hemodialysis at this point, but it remains a possibility. Nephrology recommendations appreciated Endo: Sliding scale insulin with Accu-Cheks to maintain euglycemia aspart insulin every 6 hours, IV dextrose as needed for hypoglycemia Heme: Leukocytosis Macrocytic anemia Mild coagulopathy Monitor CBC daily. Follow trends. ID: Placed on piperacillin/tazobactam and vancomycin renally dosed 1 blood culture from 01/28 now positive for gram (+) cocci but 2nd blood culture remains negative Sputum, UA and influenza all NGTD Will send follow up cultures today and continue Abx until cultures finalize FEN: severe life-threatening Hypokalemia severe life-threatening hypophosphatemia severe metabolic alkalosis Alkalemia overall is improving. His potassium is finally above 3 for the first time this admission. He continues to require aggressive electrolyte repletion. Will check follow up lytes this afternoon. MSK: PT evaluate and treat Access: - 01/29 right radial art line - 01/29 right SC TLC with CVP monitoring - machado: needs to keep for hourly outputs. Prophylaxis -GI-pantoprazole -DVT SCD/heparin gtt Counseling/ Coordination of Care: Total critical care time: 60 minutes. This includes examining the patient, gathering history from someone other than the patient (i.e., chart review), discussing the patient's care with other providers, managing the patient's blood pressure and ventilator settings, ordering and interpreting radiology studies, ordering and interpreting laboratory studies, managing the patient's pain and sedation requirements, re-evaluation at frequent intervals, and documentation. All critical care time is separate and exclusive of procedures, teaching, and patient/ family updates.
--- NOTE | 2018-01-31 13:36 | P.DIET ---
Nutritional Evaluation Type of nutrition evaluation: initial Nutrition consult regarding: Tube Feeding Subjective Subjective Comments: N/V/D prior to admission. Objective - Diagnosis Vomitting - Objective % IBW: 99 (IBW = 166#) Body Weight Used for Calculations: Actual (75 kg) Energy Needs - Lower Range (kCal/kg): 25 Energy Needs - Upper Range (kCal/kg): 30 Lower Limit kCal/kg (kCals): 1,875 Upper Limit kCal/kg (kCals): 2,250 Lower Limit Protein Factor (Grams per Kg): 0.7 Upper Limit Protein Factor (Grams per Kg): 1.0 Lower Protein Needs (Protein): 53 Upper Protein Needs (Protein): 75 Dietitian Reviewed in Medical Record: Curent medications, Intake & Output, Labs , Medical history, Tube feeding Diet Order: NPO Objective Comments: Labs: BUN/creat 45/6.00, Est GFR 11 Assessment Assessment: Pt is at high nutrition risk 2' to Dx and his need for TFing. Current order is for Nepro @ 40 mls/hr goal. Please note that Nepro is formulated for pts on dialysis. Recommend change to Suplena @ 50 mls/hr to provide 2160 kcals, 54 gms protein and 886 mls of free water. Some additional kcals will be provided by propofol (1.1 kcal/ml). Recommendations: Suplena @ 50 mls/hr goal Dietitian to Monitor: Lab values, Renal labs, Tube feeding tolerance, Weight change, Medical course
[2018-01-31 16:06] LABS: Calcium 7.4 mg/dL (8.5-10.1); Carbon Dioxide 29.1 meq/L (21.0-32.0); Magnesium 1.9 mg/dL (1.5-2.5); Phosphorus 4.6 mg/dL (2.5-4.9); Potassium 3.3 meq/L (3.5-5.1)
[2018-01-31] MEDS: Heparin Drip 25,000 UNIT/250 ML BAG IV.CONT PRN (16:34)
[2018-01-31] MEDS: fentaNYL 10 mcg/mL Premix Drip 2,500 MCG/250 ML BAG IV.SIG PRN (17:34)
[2018-01-31] MEDS: DEXTROSE 5% IV.SIG SCH ×4 (18:45→23:24)
[2018-01-31] MEDS: POTASSIUM CHLORIDE IV.SIG SCH ×4 (18:45→23:24)
[2018-01-31] MEDS: WATER IV.SIG SCH ×4 (18:45→23:24)
[2018-01-31] MEDS ORDERED: WATER IV.SIG SCH ×2 (20:00)
[2018-01-31] MEDS ORDERED: POTASSIUM CHLORIDE IV.SIG SCH ×2 (20:00)
[2018-01-31] MEDS ORDERED: DEXTROSE 5% IV.SIG SCH ×2 (20:00)
[2018-02-01] MEDS: Propofol 1000 mg/100 ml Inj 1,000 MG/100 ML BOTTLE IV.CONT PRN ×2 (04:37→12:57)
[2018-02-01 05:05] LABS: ABG Base Excess 1.9 mmol/L (-2-2); ABG PCO2 46 mmHg (38-42); ABG PO2 131 mmHG (61-120)
[2018-02-01] MEDS: Insulin NovoLOG Aspart Correctional Sugar Inj SQ SCH ×5 (05:15→21:16)
[2018-02-01] MEDS: Oral Hygiene Kit OROPHARYNG SCH ×3 (05:15→16:30)
[2018-02-01] MEDS: Chlorhexidine Gluconate 2% 1 Pack (2 Cloths) TOPICAL SCH (05:15)
[2018-02-01] MEDS: Piperacil/Tazo 2.25 GM Premix 50 ML IV.SIG SCH ×3 (05:16→21:33)
[2018-02-01] MEDS: Dextrose 5% in Water Inj 1,000 ML IV.SIG SCH (05:16)
[2018-02-01] MEDS: Midazolam 50 MG/50 ML Inj 50 MG/50 ML BAG IV.CONT PRN ×3 (05:35→23:04)
[2018-02-01] MEDS: DOBUTAMINE 500 MG/250 ML IV.CONT SCH (06:15)
[2018-02-01 06:53] LABS: Hematocrit 25.8 % (39.0-51.0); Hemoglobin 8.8 gm/dL (13.0-17.0); Mean Corpuscular HGB Conc 34.1 % (32.0-36.0); Mean Corpuscular Hemoglobin 35.6 pg (27.0-34.0); Mean Corpuscular Volume 104.2 fL (80.0-100.0); Mean Platelet Volume 8.9 fL (7.0-11.0); Platelet Count 138 th/mm3 (150-450); Red Blood Count 2.48 mil/mm3 (4.50-5.90); Red Cell Distribution Width 15.5 % (11.6-17.2); White Blood Count 8.3 th/mm3 (4.0-11.0)
[2018-02-01 07:08] LABS: Prothrombin Time 10.6 sec (9.8-11.6)
[2018-02-01 07:38] LABS: Albumin 1.7 g/dL (3.4-5.0); Carbon Dioxide 27.3 meq/L (21.0-32.0); Magnesium 1.7 mg/dL (1.5-2.5); Phosphorus 3.7 mg/dL (2.5-4.9); Potassium 3.3 meq/L (3.5-5.1); Total Protein 5.1 g/dL (6.4-8.2); Vancomycin,Random 25.1 Comment
[2018-02-01 08:10] LABS: Amphetamine Urine With Conf Neg (Neg); Barbiturate Urine With Conf Neg (Neg); Benzodiazepine Urine With Conf Pos (Neg)
[2018-02-01] MEDS: Aspirin 325 MG Tablet PO SCH (08:47)
[2018-02-01] MEDS: SODIUM CHLOR 0.9% IV.SIG SCH ×2 (08:48→17:08)
[2018-02-01] MEDS: Pantoprazole Inj 40 MG Vial IV.PUSH SCH (08:48)
[2018-02-01] MEDS: THIAMINE IV.SIG SCH ×2 (08:48→17:08)
[2018-02-01] MEDS ORDERED: Dexmedetomidine Inj 200 MCG in Sodium Chlor 0.9% Inj 48 ML IV.CONT PRN (09:24)
[2018-02-01] MEDS ORDERED: Dexmedetomidine Inj 200 MCG/2 ML Vial IV.PUSH ONE (09:24)
[2018-02-01] MEDS: Chlorhexidine 0.12% Oral Kit 15 ML UDC OROPHARYNG SCH ×2 (09:25→20:30)
[2018-02-01] MEDS: fentaNYL 10 mcg/mL Premix Drip 2,500 MCG/250 ML BAG IV.SIG PRN (09:40)
[2018-02-01] MEDS: Multivitamin Inj 10 ML, Folic Acid Inj 1 MG in Sodium Chlor 0.9% Inj 500 ML IV.SIG SCH (09:52)
[2018-02-01] MEDS: Senna/Docusate Sodium 8.6/50 MG Tablet PO SCH ×2 (10:23→21:33)
[2018-02-01] MEDS: WATER IV.SIG SCH ×4 (11:08→15:44)
[2018-02-01] MEDS: DEXTROSE 5% IV.SIG SCH ×4 (11:08→15:44)
[2018-02-01] MEDS: POTASSIUM CHLORIDE IV.SIG SCH ×4 (11:08→15:44)
--- NOTE | 2018-02-01 11:29 | P.PNCC ---
Subjective Subjective Remarks/Hospital Course: Hospital Course: This is a 32-year-old male. Admission 01/28/2018. Past medical history includes seizure disorder/noncompliant with levetiracetam, previous EtOH sober for 4 weeks, anorexia, gastroesophageal reflux disease and chronic pancreatitis. Patient presented to [facility] 01/28/2018 with a two-day history of nausea vomiting and diarrhea. Patient's mother/discussed at bedside stated she had just had a "stomach flu" which she has currently recovered. Mom states that the patient has become fairly dehydrated is been having some cramping of his hands. She is worried that he is getting dehydrated and his potassium might begin low. He was unable to tolerate a banana so she gave him some potassium pills p.o. which she also did not tolerate and threw up. Sober 4 weeks according to mother. Patient was noted to have a low potassium at 2.0. Creatinine of 4.0. This is in line with his previous hospitalizations for acute dehydration. Lipase was slightly elevated. Patient does have a history of seizure disorder which is not compliant with levetiracetam. ED physician was called into room because the RN believed he had a seizure. Patient was unresponsive. Mother states this was not like any seizure that she had seen. Pulses not palpable therefore CPR was initiated. Initial rhythm was V. fib. Patient received amiodarone, lidocaine, epinephrine, bicarbonate, magnesium during the 35 minute code with return of spontaneous circulation after 35 minutes. Pupils are about 9 mils bilaterally and 6. When I saw the patient patient was actively thrashing moving all 4 extremities spontaneously but not to command. Pupils are round 8 mm bilaterally and nonreactive. Brain CT revealed no acute findings. CT thorax revealed a left upper and lower lobe. CT abdomen pelvis pending at time of dictation. Likely, troponin pending. EKG revealed incomplete right bundle block with ST depression in the inferior and lateral leads. Cardiology consulted. They will evaluate after stat echocardiogram and troponins been completed. Potassium will be replaced pending BMP Subjective: 01/29: persistently in shock. following commands this AM. trop uptrended overnight and now > 40. on levo @ 10, vasopressin. bedside echo with persistence of his global severe LV systolic dysfunction. IVC dilated without respiratory variation. initially attempted therapeutic hypothermia, but became arrhythmogenic and neurologic exam improved and now following commands, so hypothermia aborted. persistently hypokalemic and hypophosphatemic this AM. in addition, remains with severe metabolic alkalosis. 01/30: Troponin trending down, continues to have severe hypokalemia and metabolic alkalosis. Creatinine continues to trend up, only produced 200 cc of urine over the past 24 hours. 01/31: Patient seen by nephrology yesterday and given bumex, urine output dramatically increased, potassium improved with aggressive repletion, pressors now off and dobutamine at 5. 02/01: No issues overnight. Patient tolerated dobutamine at 2 yesterday, discontinued this morning. Switching propofol to precedex and would like to start SBTs today. Overall improved. Objective Vital Signs / I&O: Vital Signs 01/31/18 11:30 01/31/18 11:45 01/31/18 11:55 Temperature 97.9 F 97.9 F Pulse Rate 70 72 72 Respiratory Rate 14 14 15 Blood Pressure 115/65 122/70 Pulse Oximetry 99 100 100 01/31/18 12:00 01/31/18 12:15 01/31/18 12:30 Temperature 97.9 F 97.9 F 98.1 F Pulse Rate 71 73 74 Respiratory Rate 14 14 14 Blood Pressure 120/71 117/67 114/65 Pulse Oximetry 100 99 98 01/31/18 12:45 01/31/18 13:00 01/31/18 13:15 Temperature 98.1 F 98.1 F 97.9 F Pulse Rate 74 75 74 Respiratory Rate 14 15 14 Blood Pressure 114/63 115/62 113/62 Pulse Oximetry 99 98 98 01/31/18 13:30 01/31/18 13:45 01/31/18 14:00 Temperature 97.9 F 97.9 F 98.1 F Pulse Rate 74 74 75 Respiratory Rate 14 14 14 Blood Pressure 111/61 111/60 111/60 Pulse Oximetry 98 98 98 01/31/18 14:15 01/31/18 14:30 01/31/18 14:45 Temperature 98.1 F 98.1 F 98.1 F Pulse Rate 74 74 74 Respiratory Rate 14 13 14 Blood Pressure 106/60 108/61 109/60 Pulse Oximetry 98 98 97 01/31/18 15:00 01/31/18 15:15 01/31/18 15:30 Temperature 98.1 F 98.1 F 98.2 F Pulse Rate 74 72 74 Respiratory Rate 13 14 15 Blood Pressure 106/57 L 108/58 L 110/60 Pulse Oximetry 97 98 98 01/31/18 15:41 01/31/18 15:45 01/31/18 16:00 Temperature 98.2 F 98.2 F Pulse Rate 74 74 74 Respiratory Rate 17 14 14 Blood Pressure 109/61 109/60 Pulse Oximetry 99 99 99 01/31/18 16:15 01/31/18 16:30 01/31/18 16:45 Temperature 98.2 F 98.2 F 98.2 F Pulse Rate 75 75 81 Respiratory Rate 19 14 20 Blood Pressure 114/62 106/58 L 116/61 Pulse Oximetry 99 99 98 01/31/18 17:00 01/31/18 17:15 01/31/18 17:30 Temperature 98.2 F 98.2 F 98.2 F Pulse Rate 78 75 74 Respiratory Rate 17 14 17 Blood Pressure 111/61 111/59 L 110/59 L Pulse Oximetry 99 99 98 01/31/18 17:45 01/31/18 18:00 01/31/18 18:15 Temperature 98.4 F 98.4 F 98.4 F Pulse Rate 75 74 81 Respiratory Rate 14 16 17 Blood Pressure 109/58 L 107/57 L 99/55 L Pulse Oximetry 98 98 99 01/31/18 18:30 01/31/18 18:45 01/31/18 19:00 Temperature 98.4 F 98.6 F 98.6 F Pulse Rate 93 H 84 82 Respiratory Rate 19 17 13 Blood Pressure 107/63 108/62 108/58 L Pulse Oximetry 98 98 98 01/31/18 19:15 01/31/18 19:30 01/31/18 19:45 Temperature 98.4 F 98.4 F 98.2 F Pulse Rate 81 79 81 Respiratory Rate 13 14 15 Blood Pressure 107/58 L 107/59 L 111/61 Pulse Oximetry 99 99 99 01/31/18 20:00 01/31/18 20:15 01/31/18 20:30 Temperature 98.4 F 98.4 F 98.4 F Pulse Rate 92 H 87 84 Respiratory Rate 15 18 14 Blood Pressure 117/63 111/66 109/63 Pulse Oximetry 99 98 99 01/31/18 20:45 01/31/18 21:00 01/31/18 21:15 Temperature 98.4 F 98.4 F 98.4 F Pulse Rate 82 82 82 Respiratory Rate 14 14 14 Blood Pressure 109/61 112/61 111/63 Pulse Oximetry 99 100 100 01/31/18 21:30 01/31/18 21:45 01/31/18 22:00 Temperature 98.4 F 98.6 F 98.6 F Pulse Rate 78 79 80 Respiratory Rate 14 14 13 Blood Pressure 114/64 107/61 110/60 Pulse Oximetry 100 99 100 01/31/18 22:10 01/31/18 22:15 01/31/18 22:30 Temperature 98.6 F 98.6 F Pulse Rate 79 79 Respiratory Rate 15 14 14 Blood Pressure 108/61 112/60 Pulse Oximetry 100 100 100 01/31/18 22:45 01/31/18 23:00 01/31/18 23:15 Temperature 98.6 F 98.6 F 98.6 F Pulse Rate 80 80 79 Respiratory Rate 15 16 14 Blood Pressure 113/62 113/62 108/61 Pulse Oximetry 100 100 100 01/31/18 23:16 01/31/18 23:30 01/31/18 23:45 Temperature 98.6 F 98.6 F Pulse Rate 78 80 80 Respiratory Rate 15 14 14 Blood Pressure 110/59 L 110/61 Pulse Oximetry 100 100 02/01/18 00:00 02/01/18 00:15 02/01/18 00:30 Temperature 98.6 F 98.6 F 98.6 F Pulse Rate 80 79 78 Respiratory Rate 14 13 14 Blood Pressure 111/62 95/50 L 99/58 L Pulse Oximetry 100 100 100 02/01/18 00:45 02/01/18 01:00 02/01/18 01:15 Temperature 98.6 F 98.8 F 98.6 F Pulse Rate 78 75 74 Respiratory Rate 15 18 14 Blood Pressure 91/53 L 88/53 L 88/53 L Pulse Oximetry 100 100 100 02/01/18 01:30 02/01/18 01:45 02/01/18 02:00 Temperature 98.8 F 98.8 F 98.8 F Pulse Rate 75 74 75 Respiratory Rate 14 18 15 Blood Pressure 90/52 L 89/55 L 91/51 L Pulse Oximetry 100 100 100 02/01/18 02:15 02/01/18 02:30 02/01/18 02:45 Temperature 98.8 F 98.8 F 98.8 F Pulse Rate 75 76 75 Respiratory Rate 14 14 14 Blood Pressure 89/51 L 89/54 L 89/54 L Pulse Oximetry 100 100 100 02/01/18 03:00 02/01/18 03:15 02/01/18 03:30 Temperature 98.8 F 98.8 F 98.8 F Pulse Rate 75 75 75 Respiratory Rate 14 14 13 Blood Pressure 87/50 L 88/54 L 90/52 L Pulse Oximetry 100 100 100 02/01/18 03:45 02/01/18 04:00 02/01/18 04:15 Temperature 98.8 F 98.8 F 96.6 F L Pulse Rate 75 76 96 H Respiratory Rate 14 14 32 H Blood Pressure 88/51 L 88/50 L 100/52 L Pulse Oximetry 100 100 90 L 02/01/18 04:30 02/01/18 04:42 02/01/18 04:45 Temperature 98.8 F 99.0 F Pulse Rate 90 80 Respiratory Rate 15 17 16 Blood Pressure 102/58 L 96/55 L Pulse Oximetry 95 100 99 02/01/18 05:00 02/01/18 05:15 02/01/18 05:30 Temperature 98.8 F 98.8 F 98.6 F Pulse Rate 77 81 80 Respiratory Rate 13 13 15 Blood Pressure 95/56 L 119/61 115/62 Pulse Oximetry 99 100 99 02/01/18 05:45 02/01/18 06:00 02/01/18 06:15 Temperature 98.6 F 98.6 F 98.6 F Pulse Rate 84 85 85 Respiratory Rate 18 19 15 Blood Pressure 120/63 123/66 120/66 Pulse Oximetry 99 99 98 02/01/18 06:30 02/01/18 06:45 02/01/18 07:00 Temperature 98.8 F 98.8 F 99.0 F Pulse Rate 103 H 86 84 Respiratory Rate 16 14 Blood Pressure 121/66 120/70 113/64 Pulse Oximetry 98 100 100 02/01/18 07:15 02/01/18 07:30 02/01/18 07:45 Temperature 98.8 F 98.8 F 98.8 F Pulse Rate 84 83 82 Respiratory Rate 14 16 15 Blood Pressure 113/60 113/61 114/64 Pulse Oximetry 100 100 100 02/01/18 08:00 02/01/18 08:03 02/01/18 08:07 Temperature 98.8 F Pulse Rate 83 101 H Respiratory Rate 14 14 14 Blood Pressure 112/65 Pulse Oximetry 100 100 02/01/18 08:15 02/01/18 08:30 02/01/18 08:45 Temperature 98.6 F 98.6 F 98.6 F Pulse Rate 81 81 85 Respiratory Rate 14 14 14 Blood Pressure 109/63 115/67 114/65 Pulse Oximetry 100 100 100 02/01/18 09:00 02/01/18 09:15 02/01/18 09:30 Temperature 98.4 F 98.4 F 98.6 F Pulse Rate 103 H 82 82 Respiratory Rate 19 14 14 Blood Pressure 117/72 101/58 L 98/54 L Pulse Oximetry 100 100 100 02/01/18 09:45 02/01/18 10:00 02/01/18 10:15 Temperature 98.6 F 98.6 F 98.6 F Pulse Rate 81 79 78 Respiratory Rate 14 14 13 Blood Pressure 90/53 L 89/51 L 91/50 L Pulse Oximetry 100 100 100 Intake & Output 01/31/18 02/01/18 02/01/18 18:59 06:59 18:59 Intake Total 2875.6 / 2875.6 1759.2 / 1759.2 565.6 / 565.6 Output Total 2049 / 2049 2049 / 2049 Balance 825.6 / 825.6 -290.8 / -290.8 565.6 / 565.6 Weight 83.5 kg Intake: IV 2825.6 / 2825.6 1535.2 / 1535.2 565.6 / 565.6 Cordarone Inj 450 MG In NS Inj 200 / 200 241 ML @ 1 MG/MIN 33.33 mls/hr IV.CONT TITRATE PRN Rx#: [id number] DOBUTamine 500 MG/250 ML Premx 250 / 250 250 / 250 15 / 15 500 mg In 250 ml @ 2 MCG/KG/MIN 4.5 mls/hr IV.CONT .Q24H GERMAINE Rx#:[id number] Heparin/D5W 25,000 U/250 mL 25, 250 / 250 000 unit In 250 ml @ Per Protocol IV.CONT TITRATE PRN Rx #:[id number] Versed Inj 50 mg In 50 ml @ 2 50 / 50 50 / 50 MG/HR 2 mls/hr IV.CONT TITRATE PRN Rx#:[id number] Levophed Inj 16 MG In NS Inj 250 / 250 234 ML @ 2 MCG/MIN 1.87 mls/hr IV.CONT TITRATE PRN Rx#: [id number] Diprivan 1000 mg/100 ml Inj 1, 100 / 100 200 / 200 000 mg In 100 ml @ 5 MCG/KG/MIN 2.25 mls/hr IV.CONT TITRATE PRN Rx#:[id number] Calcium Chloride Inj 2 GM In NS 120 / 120 Inj 100 ML @ 120 mls/hr IV.SIG ONCE ONE Rx#:[id number] D5W Inj 1,000 ML @ 30 mls/hr IV 1000 / 1000 0 / 0 .SIG .Q24H GERMAINE Rx#:[id number] MVI-12 Inj 10 ML Folvite Inj 1 510.2 / 510.2 MG In NS Inj 500 ML @ 125 mls/ hr IV.SIG DAILY GERMAINE Rx#: [id number] Zosyn 2.25 GM Premix 50 ML @ 50 / 50 50 / 50 50 / 50 100 mls/hr IV.SIG Q8H GERMAINE Rx#: [id number] KCl 20 mEq Premix Inj 20 meq In 300 / 300 100 ml @ 50 mls/hr IV.SIG Q2H GERMAINE Rx#:[id number] KCl Inj 40 MEQ In D5W Inj 100 120 / 120 ML @ 30 mls/hr IV.SIG .Q4H GERMAINE Rx#:[id number] Thiamine Inj 30 MG In NS Inj 200.6 / 200.6 200.6 / 200.6 100 ML @ 100.3 mls/hr IV.SIG Q8H GERMAINE Rx#:[id number] fentaNYL 10 mcg/mL Premix Drip 250 / 250 250 / 250 2,500 mcg In 250 ml @ 50 MCG/HR 5 mls/hr IV.SIG TITRATE PRN Rx #:[id number] Keppra Inj 500 MG In NS Inj 100 105 / 105 105 / 105 ML @ 400 mls/hr IV.SIG Q12H GERMAINE Rx#:[id number] Tube Feeding 0 / 0 144 / 144 Tube Irrigant 50 / 50 80 / 80 Output: Urine Amount (Catheter) 2049 Coude 2049 Other: Date of Last Bowel Movement 02/01/18 02/01/18 # Bowel Movements 1 Result Diagrams: 02/01/18 05:11 02/01/18 08:35 Objective Remarks: GENERAL: Intubated and sedated, calm HEENT: NCAT, PERRL, ETT in place NECK: Trachea midline CHEST: Mechanical breath sounds bilaterally. Subclavian TLC on right. CARDIOVASCULAR: Normal rate, regular rhythm ABDOMEN: Soft, non-tender in all quadrants MUSCULOSKELETAL: Pulses 2+. No peripheral edema. NEUROLOGICAL: RASS -1, appears comfortable and calm Assessment and Plan - Assessment and Plan Plan: Assessment: 32-year-old male with history of EtOH abuse and chronic pancreatitis who presents with severe hypokalemia, dehydration, and cardiac arrest. Patient has persistence of his severe LV systolic dysfunction and is in persistent cardiogenic shock. Will start inotropic therapy with dobutamine. Continue to trend lactates. Trend troponins. V. fib cardiac arrest is concerning for coronary disease, although patient is quite young. Will start heparin drip and aspirin until coronary artery disease can be definitively ruled out, we will trend troponins. Aggressively replace electrolytes and we will have to start IV Diamox to help with his metabolic alkalosis, having now ensure that the patient is intravascularly volume replete. Remains very critically ill with multiple organ systems are life-threatening at this time. Neuro/Psych: Seizure disorder NOS History of EtOH sober 4 weeks History of anorexia/bulimia Currently on versed/fentanyl/propofol drips for sedation/analgesia. Will switch propofol to precedex today but need to watch very carefully for bradycardia and hypotension with this switch. Goal of RASS 0 to -1, daily sedation vacations as tolerated Continue keppra 500 BID (home dose) Continue holding quetiapine 50 mg 3 times daily/home medication Patient has a previous history of heavy EtOH abuse and bulimia as per mother-- continue thiamine/ folate supplementation Delirium precautions- lights on/ shades up during the day, limit nighttime disruptions, frequent reorientation to environment CV: In-hospital cardiac arrest V. fib arrest Cardiogenic Shock Severe LV systolic dysfunction Plan is still for cardiac perfusion study when creatinine improves Dobutamine stopped this morning Echo 9/1: severe LV systolic dysfunction, EF 20-25%. mildly depressed RV function. no valvular lesions. Patient may benefit from repeat echo in 1-2 weeks as cardiac function improves Continue heparin drip, ASA daily Given the patient's history of heavy alcohol abuse/ bulimia, presentation with multiple electrolyte derangements, and new cardiomyopathy, will treat empirically for beriberi with thiamine and concurrent repletion of folate. The patient's mother is not sure if the patient was taking any laxatives/ ipecac for weight loss, but apparently ipecac is also known to be cardiotoxic and can cause cardiomyopathy and life-threatening arrhythmias (although there is no particular antidote, only supportive care). Resp: Acute hypoxic respiratory failure Left upper/lower lobe pulmonary infiltrates Ventilator bundle Albuterol/ipratropium aerosols every 4 hours with albuterol nebs q2 PRN Secretions noted to be thicker this morning, will also give 24 hours of scheduled mucomyst nebs and start chest PT Currently on 14/500/8/35%, ABG stable (7.38/46/131/27/1.9) Start daily SBTs today GI: Elevated lipase/mild pancreatitis Left hepatic pneumobilia history of chronic pancreatitis Suplena @ 25 mL/hr, goal 40 (although this will increase as we are discontinuing propofol), increase to goal Pantoprazole for GI prophylaxis. On pantoprazole 40 mg daily at home. Docusate serum/senna 1 tablet twice daily for bowel regimen CT abdomen/pelvis revealed mild pancreatitis. There was a small amount of hepatic gas seen on CT scan (likely pneumobilia, cannot exclude portal venous gas) but RUQ US showed no acute pathology. Renal/ : Acute kidney injury Machado catheter for accurate I's and O's in a critically ill patient Creatinine peaked around 6, slowly starting to drip down. Urine output 2 cc/kg/ hr even though he only received 1 dose of bumex in the past 24 hours. Nephrology recommendations appreciated Endo: Sliding scale insulin with Accu-Cheks to maintain euglycemia aspart insulin every 6 hours, IV dextrose as needed for hypoglycemia Heme: Leukocytosis Macrocytic anemia Mild coagulopathy Monitor CBC daily. Follow trends. ID: Placed on piperacillin/tazobactam and vancomycin renally dosed 1 blood culture from 01/28 now positive for gram (+) cocci but 2nd blood culture remains negative Sputum, UA and influenza all NGTD Repeat blood cultures sent yesterday, no growth thus far FEN: severe life-threatening Hypokalemia severe life-threatening hypophosphatemia severe metabolic alkalosis Alkalemia overall is improving. He continues to require aggressive electrolyte repletion. Continue to check lytes q12h. MSK: PT evaluate and treat Access: - 01/29 right radial art line - 01/29 right SC TLC with CVP monitoring - machado: needs to keep for hourly outputs. Prophylaxis -GI-pantoprazole -DVT SCD/heparin gtt Counseling/ Coordination of Care: Total critical care time: 48 minutes. This includes examining the patient, gathering history from someone other than the patient (i.e., chart review), discussing the patient's care with other providers, managing the patient's blood pressure and ventilator settings, ordering and interpreting radiology studies, ordering and interpreting laboratory studies, managing the patient's pain and sedation requirements, re-evaluation at frequent intervals, and documentation. All critical care time is separate and exclusive of procedures, teaching, and patient/ family updates.
[2018-02-01] MEDS: Dexmedetomidine Inj 1,000 MCG in Sodium Chlor 0.9% Inj 240 ML IV.CONT PRN (13:00)
--- NOTE | 2018-02-01 13:14 | P.PNNP ---
Subjective Interval history: Renal function improved. Hypokalemic. Excellent response to diuretics. <Laura Petit - Last Filed: 02/01/18 13:09> Physical Exam Vital signs: Vital Signs 01/31/18 13:15 01/31/18 13:30 01/31/18 13:45 Temperature 97.9 F 97.9 F 97.9 F Pulse Rate 74 74 74 Respiratory Rate 14 14 14 Blood Pressure 113/62 111/61 111/60 Pulse Oximetry 98 98 98 01/31/18 14:00 01/31/18 14:15 01/31/18 14:30 Temperature 98.1 F 98.1 F 98.1 F Pulse Rate 75 74 74 Respiratory Rate 14 14 13 Blood Pressure 111/60 106/60 108/61 Pulse Oximetry 98 98 98 01/31/18 14:45 01/31/18 15:00 01/31/18 15:15 Temperature 98.1 F 98.1 F 98.1 F Pulse Rate 74 74 72 Respiratory Rate 14 13 14 Blood Pressure 109/60 106/57 L 108/58 L Pulse Oximetry 97 97 98 01/31/18 15:30 01/31/18 15:41 01/31/18 15:45 Temperature 98.2 F 98.2 F Pulse Rate 74 74 74 Respiratory Rate 15 17 14 Blood Pressure 110/60 109/61 Pulse Oximetry 98 99 99 01/31/18 16:00 01/31/18 16:15 01/31/18 16:30 Temperature 98.2 F 98.2 F 98.2 F Pulse Rate 74 75 75 Respiratory Rate 14 19 14 Blood Pressure 109/60 114/62 106/58 L Pulse Oximetry 99 99 99 01/31/18 16:45 01/31/18 17:00 01/31/18 17:15 Temperature 98.2 F 98.2 F 98.2 F Pulse Rate 81 78 75 Respiratory Rate 20 17 14 Blood Pressure 116/61 111/61 111/59 L Pulse Oximetry 98 99 99 01/31/18 17:30 01/31/18 17:45 01/31/18 18:00 Temperature 98.2 F 98.4 F 98.4 F Pulse Rate 74 75 74 Respiratory Rate 17 14 16 Blood Pressure 110/59 L 109/58 L 107/57 L Pulse Oximetry 98 98 98 01/31/18 18:15 01/31/18 18:30 01/31/18 18:45 Temperature 98.4 F 98.4 F 98.6 F Pulse Rate 81 93 H 84 Respiratory Rate 17 19 17 Blood Pressure 99/55 L 107/63 108/62 Pulse Oximetry 99 98 98 01/31/18 19:00 01/31/18 19:15 01/31/18 19:30 Temperature 98.6 F 98.4 F 98.4 F Pulse Rate 82 81 79 Respiratory Rate 13 13 14 Blood Pressure 108/58 L 107/58 L 107/59 L Pulse Oximetry 98 99 99 01/31/18 19:45 01/31/18 20:00 01/31/18 20:15 Temperature 98.2 F 98.4 F 98.4 F Pulse Rate 81 92 H 87 Respiratory Rate 15 15 18 Blood Pressure 111/61 117/63 111/66 Pulse Oximetry 99 99 98 01/31/18 20:30 01/31/18 20:45 01/31/18 21:00 Temperature 98.4 F 98.4 F 98.4 F Pulse Rate 84 82 82 Respiratory Rate 14 14 14 Blood Pressure 109/63 109/61 112/61 Pulse Oximetry 99 99 100 01/31/18 21:15 01/31/18 21:30 01/31/18 21:45 Temperature 98.4 F 98.4 F 98.6 F Pulse Rate 82 78 79 Respiratory Rate 14 14 14 Blood Pressure 111/63 114/64 107/61 Pulse Oximetry 100 100 99 01/31/18 22:00 01/31/18 22:10 01/31/18 22:15 Temperature 98.6 F 98.6 F Pulse Rate 80 79 Respiratory Rate 13 15 14 Blood Pressure 110/60 108/61 Pulse Oximetry 100 100 100 01/31/18 22:30 01/31/18 22:45 01/31/18 23:00 Temperature 98.6 F 98.6 F 98.6 F Pulse Rate 79 80 80 Respiratory Rate 14 15 16 Blood Pressure 112/60 113/62 113/62 Pulse Oximetry 100 100 100 01/31/18 23:15 01/31/18 23:16 01/31/18 23:30 Temperature 98.6 F 98.6 F Pulse Rate 79 78 80 Respiratory Rate 14 15 14 Blood Pressure 108/61 110/59 L Pulse Oximetry 100 100 01/31/18 23:45 02/01/18 00:00 02/01/18 00:15 Temperature 98.6 F 98.6 F 98.6 F Pulse Rate 80 80 79 Respiratory Rate 14 14 13 Blood Pressure 110/61 111/62 95/50 L Pulse Oximetry 100 100 100 02/01/18 00:30 02/01/18 00:45 02/01/18 01:00 Temperature 98.6 F 98.6 F 98.8 F Pulse Rate 78 78 75 Respiratory Rate 14 15 18 Blood Pressure 99/58 L 91/53 L 88/53 L Pulse Oximetry 100 100 100 02/01/18 01:15 02/01/18 01:30 02/01/18 01:45 Temperature 98.6 F 98.8 F 98.8 F Pulse Rate 74 75 74 Respiratory Rate 14 14 18 Blood Pressure 88/53 L 90/52 L 89/55 L Pulse Oximetry 100 100 100 02/01/18 02:00 02/01/18 02:15 02/01/18 02:30 Temperature 98.8 F 98.8 F 98.8 F Pulse Rate 75 75 76 Respiratory Rate 15 14 14 Blood Pressure 91/51 L 89/51 L 89/54 L Pulse Oximetry 100 100 100 02/01/18 02:45 02/01/18 03:00 02/01/18 03:15 Temperature 98.8 F 98.8 F 98.8 F Pulse Rate 75 75 75 Respiratory Rate 14 14 14 Blood Pressure 89/54 L 87/50 L 88/54 L Pulse Oximetry 100 100 100 02/01/18 03:30 02/01/18 03:45 02/01/18 04:00 Temperature 98.8 F 98.8 F 98.8 F Pulse Rate 75 75 76 Respiratory Rate 13 14 14 Blood Pressure 90/52 L 88/51 L 88/50 L Pulse Oximetry 100 100 100 02/01/18 04:15 02/01/18 04:30 02/01/18 04:42 Temperature 96.6 F L 98.8 F Pulse Rate 96 H 90 Respiratory Rate 32 H 15 17 Blood Pressure 100/52 L 102/58 L Pulse Oximetry 90 L 95 100 02/01/18 04:45 02/01/18 05:00 02/01/18 05:15 Temperature 99.0 F 98.8 F 98.8 F Pulse Rate 80 77 81 Respiratory Rate 16 13 13 Blood Pressure 96/55 L 95/56 L 119/61 Pulse Oximetry 99 99 100 02/01/18 05:30 02/01/18 05:45 02/01/18 06:00 Temperature 98.6 F 98.6 F 98.6 F Pulse Rate 80 84 85 Respiratory Rate 15 18 19 Blood Pressure 115/62 120/63 123/66 Pulse Oximetry 99 99 99 02/01/18 06:15 02/01/18 06:30 02/01/18 06:45 Temperature 98.6 F 98.8 F 98.8 F Pulse Rate 85 103 H 86 Respiratory Rate 15 16 Blood Pressure 120/66 121/66 120/70 Pulse Oximetry 98 98 100 02/01/18 07:00 02/01/18 07:15 02/01/18 07:30 Temperature 99.0 F 98.8 F 98.8 F Pulse Rate 84 84 83 Respiratory Rate 14 14 16 Blood Pressure 113/64 113/60 113/61 Pulse Oximetry 100 100 100 02/01/18 07:45 02/01/18 08:00 02/01/18 08:03 Temperature 98.8 F 98.8 F Pulse Rate 82 83 Respiratory Rate 15 14 14 Blood Pressure 114/64 112/65 Pulse Oximetry 100 100 100 02/01/18 08:07 02/01/18 08:15 02/01/18 08:30 Temperature 98.6 F 98.6 F Pulse Rate 101 H 81 81 Respiratory Rate 14 14 14 Blood Pressure 109/63 115/67 Pulse Oximetry 100 100 02/01/18 08:45 02/01/18 09:00 02/01/18 09:15 Temperature 98.6 F 98.4 F 98.4 F Pulse Rate 85 103 H 82 Respiratory Rate 14 19 14 Blood Pressure 114/65 117/72 101/58 L Pulse Oximetry 100 100 100 02/01/18 09:30 02/01/18 09:45 02/01/18 10:00 Temperature 98.6 F 98.6 F 98.6 F Pulse Rate 82 81 79 Respiratory Rate 14 14 14 Blood Pressure 98/54 L 90/53 L 89/51 L Pulse Oximetry 100 100 100 02/01/18 10:15 02/01/18 10:30 02/01/18 10:45 Temperature 98.6 F 98.6 F 98.6 F Pulse Rate 78 77 77 Respiratory Rate 13 13 14 Blood Pressure 91/50 L 92/52 L 92/50 L Pulse Oximetry 100 100 100 02/01/18 11:00 02/01/18 11:15 02/01/18 11:22 Temperature 98.6 F 98.6 F Pulse Rate 76 76 76 Respiratory Rate 13 14 14 Blood Pressure 93/51 L 90/51 L Pulse Oximetry 100 100 100 02/01/18 11:30 02/01/18 11:45 02/01/18 12:00 Temperature 98.6 F 98.6 F 98.6 F Pulse Rate 77 79 78 Respiratory Rate 14 13 13 Blood Pressure 91/50 L 91/50 L 90/51 L Pulse Oximetry 100 100 100 Intake & Output 01/31/18 02/01/18 02/01/18 18:59 06:59 18:59 Intake Total 2875.6 / 2875.6 1759.2 / 1759.2 665.6 / 665.6 Output Total 2049 / 2049 2049 / 2049 Balance 825.6 / 825.6 -290.8 / -290.8 665.6 / 665.6 Weight 83.5 kg Intake: IV 2825.6 / 2825.6 1535.2 / 1535.2 665.6 / 665.6 Cordarone Inj 450 MG In NS Inj 200 / 200 241 ML @ 1 MG/MIN 33.33 mls/hr IV.CONT TITRATE PRN Rx#: [id number] DOBUTamine 500 MG/250 ML Premx 250 / 250 250 / 250 15 / 15 500 mg In 250 ml @ 2 MCG/KG/MIN 4.5 mls/hr IV.CONT .Q24H [facility] Rx#:[id number] Heparin/D5W 25,000 U/250 mL 25, 250 / 250 000 unit In 250 ml @ Per Protocol IV.CONT TITRATE PRN Rx #:[id number] Versed Inj 50 mg In 50 ml @ 2 50 / 50 50 / 50 MG/HR 2 mls/hr IV.CONT TITRATE PRN Rx#:[id number] Levophed Inj 16 MG In NS Inj 250 / 250 234 ML @ 2 MCG/MIN 1.87 mls/hr IV.CONT TITRATE PRN Rx#: [id number] Diprivan 1000 mg/100 ml Inj 1, 100 / 100 200 / 200 100 / 100 000 mg In 100 ml @ 5 MCG/KG/MIN 2.25 mls/hr IV.CONT TITRATE PRN Rx#:[id number] Calcium Chloride Inj 2 GM In NS 120 / 120 Inj 100 ML @ 120 mls/hr IV.SIG ONCE ONE Rx#:[id number] D5W Inj 1,000 ML @ 30 mls/hr IV 1000 / 1000 0 / 0 .SIG .Q24H [facility]ER[facility] Rx#:[id number] MVI-12 Inj 10 ML Folvite Inj 1 510.2 / 510.2 MG In NS Inj 500 ML @ 125 mls/ hr IV.SIG DAILY GERMA[facility] Rx#: [id number] Zosyn 2.25 GM Premix 50 ML @ 50 / 50 50 / 50 50 / 50 100 mls/hr IV.SIG Q8H [facility] Rx#: [id number] KCl 20 mEq Premix Inj 20 meq In 300 / 300 100 ml @ 50 mls/hr IV.SIG Q2H [facility] Rx#:[id number] KCl Inj 40 MEQ In D5W Inj 100 120 / 120 ML @ 30 mls/hr IV.SIG .Q4H [facility] Rx#:[id number] Thiamine Inj 30 MG In NS Inj 200.6 / 200.6 200.6 / 200.6 100 ML @ 100.3 mls/hr IV.SIG Q8H [facility] Rx#:[id number] fentaNYL 10 mcg/mL Premix Drip 250 / 250 250 / 250 2,500 mcg In 250 ml @ 50 MCG/HR 5 mls/hr IV.SIG TITRATE PRN Rx #:[id number] Keppra Inj 500 MG In NS Inj 100 105 / 105 105 / 105 ML @ 400 mls/hr IV.SIG Q12H [facility] Rx#:[id number] Tube Feeding 0 / 0 144 / 144 Tube Irrigant 50 / 50 80 / 80 Output: Urine Amount (Catheter) 2049 Coude 2049 Other: Date of Last Bowel Movement 02/01/18 02/01/18 # Bowel Movements 1 - Constitutional no acute distress, chronically ill appearing, disheveled Comments: Intubated, unresponsive. - Routine HEENT Exam Head: Present: normocephalic - Routine Neck Exam Present: supple, full ROM - Routine Respiratory Exam Present: patient mechanically ventilated - Routine Cardiovascular Exam Present: S1, S2 - Routine Abdominal Exam Present: soft, normoactive bowel sounds - Routine Extremities Exam Present: edema, pulses intact, normal capillary refill - Routine Skin Exam Present: intact, dry, warm - Routine Neurological Exam sedated on the vent - Urinary Catheter Management Coude Cath placed during this visit: yes Reason for continuing: Hourly intake/output Insertion date: 01/28/18 Insertion time: 13:15 <Laura Petit - Last Filed: 02/01/18 13:09> Vital signs: Vital Signs 02/01/18 20:45 02/01/18 21:00 02/01/18 21:15 Temperature Pulse Rate 62 63 62 Respiratory Rate 18 23 21 Blood Pressure 105/65 107/66 105/67 Pulse Oximetry 97 97 97 02/01/18 21:18 02/01/18 21:22 02/01/18 21:30 Temperature Pulse Rate 62 62 Respiratory Rate 12 17 24 Blood Pressure 105/67 Pulse Oximetry 100 99 02/01/18 21:45 02/01/18 22:00 02/01/18 22:15 Temperature Pulse Rate 66 67 65 Respiratory Rate 15 14 16 Blood Pressure 105/64 104/62 107/68 Pulse Oximetry 98 98 100 02/01/18 22:30 02/01/18 22:45 02/01/18 23:00 Temperature Pulse Rate 65 64 61 Respiratory Rate 15 15 18 Blood Pressure 108/70 106/67 109/69 Pulse Oximetry 100 100 100 02/01/18 23:15 02/01/18 23:30 02/01/18 23:45 Temperature Pulse Rate 62 62 61 Respiratory Rate 14 15 15 Blood Pressure 109/68 108/69 108/72 Pulse Oximetry 100 100 100 02/02/18 00:00 02/02/18 00:15 02/02/18 00:30 Temperature 96.5 F L Pulse Rate 71 61 61 Respiratory Rate 15 14 15 Blood Pressure 111/74 111/74 111/75 Pulse Oximetry 100 100 100 02/02/18 00:45 02/02/18 00:50 02/02/18 01:00 Temperature Pulse Rate 61 63 Respiratory Rate 14 18 21 Blood Pressure 112/77 Pulse Oximetry 100 100 100 02/02/18 01:01 02/02/18 01:15 02/02/18 01:30 Temperature Pulse Rate 71 61 62 Respiratory Rate 24 15 22 Blood Pressure 110/73 111/72 107/71 Pulse Oximetry 100 100 100 02/02/18 01:45 02/02/18 02:00 02/02/18 02:15 Temperature Pulse Rate 61 60 62 Respiratory Rate 18 17 18 Blood Pressure 110/75 110/76 112/75 Pulse Oximetry 100 100 100 02/02/18 02:30 02/02/18 02:45 02/02/18 03:00 Temperature Pulse Rate 62 61 62 Respiratory Rate 15 18 15 Blood Pressure 110/75 112/76 111/77 Pulse Oximetry 100 100 100 02/02/18 03:15 02/02/18 03:29 02/02/18 03:30 Temperature Pulse Rate 62 62 62 Respiratory Rate 19 14 14 Blood Pressure 112/75 110/73 Pulse Oximetry 100 100 02/02/18 03:45 02/02/18 04:00 02/02/18 04:15 Temperature Pulse Rate 64 64 65 Respiratory Rate 17 16 15 Blood Pressure 112/74 112/72 112/72 Pulse Oximetry 100 100 100 02/02/18 04:17 02/02/18 04:27 02/02/18 04:30 Temperature 97.5 F L Pulse Rate 66 Respiratory Rate 19 15 Blood Pressure 109/70 Pulse Oximetry 100 100 02/02/18 04:45 02/02/18 05:00 02/02/18 05:09 Temperature Pulse Rate 83 65 67 Respiratory Rate 28 H 23 20 Blood Pressure 115/73 76/50 L 104/60 Pulse Oximetry 96 85 L 100 02/02/18 05:15 02/02/18 05:30 02/02/18 05:45 Temperature Pulse Rate 64 66 65 Respiratory Rate 19 18 17 Blood Pressure 104/60 106/62 106/64 Pulse Oximetry 99 99 98 02/02/18 06:00 02/02/18 06:15 02/02/18 06:30 Temperature Pulse Rate 65 65 64 Respiratory Rate 17 17 17 Blood Pressure 109/64 107/65 110/67 Pulse Oximetry 100 100 100 02/02/18 07:00 02/02/18 08:00 02/02/18 08:13 Temperature 97.8 F Pulse Rate 63 63 62 Respiratory Rate 17 15 17 Blood Pressure 106/68 106/72 Pulse Oximetry 100 100 02/02/18 08:14 02/02/18 09:00 02/02/18 10:00 Temperature Pulse Rate 65 65 Respiratory Rate 16 15 13 Blood Pressure 106/64 105/68 Pulse Oximetry 100 92 L 98 02/02/18 11:00 02/02/18 11:45 02/02/18 12:00 Temperature 97.9 F Pulse Rate 66 67 Respiratory Rate 14 13 16 Blood Pressure 113/65 116/65 Pulse Oximetry 97 97 95 02/02/18 13:00 02/02/18 14:00 02/02/18 14:15 Temperature Pulse Rate 67 64 69 Respiratory Rate 14 27 H 16 Blood Pressure 104/59 L 116/64 94/61 L Pulse Oximetry 98 96 96 02/02/18 14:30 02/02/18 14:45 02/02/18 15:00 Temperature Pulse Rate 72 69 70 Respiratory Rate 15 14 14 Blood Pressure 96/61 L 93/60 L 91/55 L Pulse Oximetry 98 98 98 02/02/18 15:15 02/02/18 15:30 02/02/18 15:45 Temperature Pulse Rate 70 74 74 Respiratory Rate 14 19 22 Blood Pressure 93/55 L 92/57 L 94/60 L Pulse Oximetry 98 98 99 02/02/18 16:00 02/02/18 16:13 02/02/18 16:15 Temperature 97.7 F Pulse Rate 70 71 Respiratory Rate 17 16 16 Blood Pressure 94/57 L 93/56 L Pulse Oximetry 100 100 100 02/02/18 16:30 02/02/18 16:45 02/02/18 17:00 Temperature Pulse Rate 71 71 70 Respiratory Rate 13 13 13 Blood Pressure 96/58 L 91/58 L 94/56 L Pulse Oximetry 100 100 100 02/02/18 17:15 02/02/18 17:30 02/02/18 17:45 Temperature Pulse Rate 70 69 69 Respiratory Rate 13 13 13 Blood Pressure 92/55 L 94/53 L 92/54 L Pulse Oximetry 100 100 100 02/02/18 18:00 02/02/18 18:15 02/02/18 18:30 Temperature Pulse Rate 69 69 70 Respiratory Rate 13 15 16 Blood Pressure 94/55 L 93/56 L 90/56 L Pulse Oximetry 100 100 100 02/02/18 18:45 02/02/18 19:00 02/02/18 19:15 Temperature Pulse Rate 69 69 70 Respiratory Rate 18 16 17 Blood Pressure 93/56 L 91/57 L 93/56 L Pulse Oximetry 100 100 100 02/02/18 19:30 02/02/18 19:45 02/02/18 20:00 Temperature Pulse Rate 69 70 72 Respiratory Rate 17 19 18 Blood Pressure 94/57 L 92/58 L 98/60 L Pulse Oximetry 100 100 100 02/02/18 20:04 02/02/18 20:15 Temperature 97.5 F L Pulse Rate 72 72 Respiratory Rate 19 19 Blood Pressure 96/58 L Pulse Oximetry 100 Intake & Output 02/02/18 02/02/18 02/03/18 06:59 18:59 06:59 Intake Total 1069.3 / 1069.3 2357.6 / 2357.6 510.2 / 510.2 Output Total 1150 / 1150 1750 / 1750 Balance -80.7 / -80.7 607.6 / 607.6 510.2 / 510.2 Weight 83.5 kg Intake: IV 675.3 / 675.3 1613.6 / 1613.6 510.2 / 510.2 Precedex Inj 1,000 MCG In NS 250 / 250 500 / 500 Inj 240 ML @ 0.2 MCG/KG/HR 4.17 mls/hr IV.CONT TITRATE PRN Rx# :[id number] Heparin/D5W 25,000 U/250 mL 25, 250 / 250 000 unit In 250 ml @ Per Protocol IV.CONT TITRATE PRN Rx #:[id number] Versed Inj 50 mg In 50 ml @ 2 50 / 50 50 / 50 MG/HR 2 mls/hr IV.CONT TITRATE PRN Rx#:[id number] Magnesium Sulfate Inj 4 GM In 108 / 108 D5W Inj 100 ML @ 25 mls/hr IV. SIG ONCE ONE Rx#:[id number] MVI-12 Inj 10 ML Folvite Inj 1 510.2 / 510.2 MG In NS Inj 500 ML @ 125 mls/ hr IV.SIG DAILY [facility]ER[facility] Rx#: [id number] Zosyn 2.25 GM Premix 50 ML @ 100 / 100 50 / 50 100 mls/hr IV.SIG Q8H [facility] Rx#: [id number] KCl 40 mEq Premix Inj 40 meq In 200 / 200 100 ml @ 25 mls/hr IV.SIG Q4H [facility] Rx#:[id number] KCl Inj 40 MEQ In D5W Inj 100 120 / 120 ML @ 25 mls/hr IV.SIG Q4H [facility] Rx#:[id number] Thiamine Inj 30 MG In NS Inj 50 50.3 / 50.3 100.6 / 100.6 ML @ 201.2 mls/hr IV.SIG Q8H [facility] Rx#:[id number] fentaNYL 10 mcg/mL Premix Drip 250 / 250 2,500 mcg In 250 ml @ 50 MCG/HR 5 mls/hr IV.SIG TITRATE PRN Rx #:[id number] Keppra Inj 500 MG In NS Inj 100 105 / 105 105 / 105 ML @ 400 mls/hr IV.SIG Q12H [facility] Rx#:[id number] Tube Feeding 314 / 314 344 / 344 Tube Irrigant 80 / 80 Water Bolus Amount 400 / 400 Output: Urine Amount (Catheter) 1150 / 1150 1750 / 1750 Coude 1150 / 1150 1750 / 1750 Other: Date of Last Bowel Movement 02/01/18 02/01/18 02/01/18 # Bowel Movements 0 - Urinary Catheter Management Coude Cath placed during this visit: no <Tj Ruby - Last Filed: 02/02/18 20:33> Assessment and Plan - Assessment (1) Acute kidney failure Code(s): N17.9 - Acute kidney failure, unspecified Status: Acute Plan: Most likely suffered ATN. Creatinine is slightly better. His fluid status is still positive. Give another dose of Bumex. Limit IV infusions. Repeat labs daily. Continue to replace potassium as needed. Avoid nephrotoxic agents. Imaging negative for obstructions. Renal replacement therapy not indicated at this time. (2) Hypokalemia Code(s): E87.6 - Hypokalemia Status: Acute Plan: Continue to replace carefully. Most likely due to total body depletion, in addition to cooling/warming which shifts potassium intracellularly. (3) Cardiomyopathy Code(s): I42.9 - Cardiomyopathy, unspecified Status: Acute Plan: Troponin is high, cardiology following. Alcohol induced cardiomyopathy is a possibility. He also had CPR. Also could be secondary to chronic hypokalemia. Agree with thiamine infusion. (4) Acid-base imbalance Code(s): E87.4 - Mixed disorder of acid-base balance Status: Acute Plan: Improving. Management per plunket nurse. <Laura Petit - Last Filed: 02/01/18 13:09> - Assessment (1) Acute kidney failure Code(s): N17.9 - Acute kidney failure, unspecified Status: Acute (2) Hypokalemia Code(s): E87.6 - Hypokalemia Status: Acute (3) Cardiomyopathy Code(s): I42.9 - Cardiomyopathy, unspecified Status: Acute (4) Acid-base imbalance Code(s): E87.4 - Mixed disorder of acid-base balance Status: Acute - Attending Attestation patient was seen and examined on 02/01/18. Renal function is improving. Reduce IVF and other infusions. Cautious diuresis, replace potassium. <Tj Ruby - Last Filed: 02/02/18 20:33>
[2018-02-01] MEDS: Heparin Drip 25,000 UNIT/250 ML BAG IV.CONT PRN (18:10)
[2018-02-01 22:00] LABS: Calcium 7.2 mg/dL (8.5-10.1); Carbon Dioxide 26.3 meq/L (21.0-32.0); Potassium 3.3 meq/L (3.5-5.1)
[2018-02-01 22:13] LABS: Total Protein 5.1 g/dL (6.4-8.2)
[2018-02-02] MEDS: Insulin NovoLOG Aspart Correctional Sugar Inj SQ SCH ×6 (00:10→20:05)
[2018-02-02] MEDS: Oral Hygiene Kit OROPHARYNG SCH ×4 (01:05→15:54)
[2018-02-02] MEDS: SODIUM CHLOR 0.9% IV.SIG SCH ×3 (01:11→17:37)
[2018-02-02] MEDS: THIAMINE IV.SIG SCH ×3 (01:11→17:37)
[2018-02-02] MEDS: Dexmedetomidine Inj 1,000 MCG in Sodium Chlor 0.9% Inj 240 ML IV.CONT PRN ×3 (01:23→19:13)
[2018-02-02 03:31] LABS: Hematocrit 27.1 % (39.0-51.0); Hemoglobin 9.1 gm/dL (13.0-17.0); Mean Corpuscular HGB Conc 33.5 % (32.0-36.0); Mean Corpuscular Hemoglobin 35.1 pg (27.0-34.0); Mean Corpuscular Volume 104.6 fL (80.0-100.0); Mean Platelet Volume 8.6 fL (7.0-11.0); Platelet Count 135 th/mm3 (150-450); Red Blood Count 2.59 mil/mm3 (4.50-5.90); Red Cell Distribution Width 15.4 % (11.6-17.2); White Blood Count 6.5 th/mm3 (4.0-11.0)
[2018-02-02 03:38] LABS: Prothrombin Time 10.6 sec (9.8-11.6)
[2018-02-02 04:05] LABS: Albumin 1.6 g/dL (3.4-5.0); Carbon Dioxide 25.4 meq/L (21.0-32.0); Magnesium 1.5 mg/dL (1.5-2.5); Phosphorus 2.8 mg/dL (2.5-4.9); Potassium 3.2 meq/L (3.5-5.1); Total Protein 5.2 g/dL (6.4-8.2); Vancomycin,Random 15.8 Comment
[2018-02-02] MEDS: Dextrose 5% in Water Inj 1,000 ML IV.SIG SCH (06:16)
[2018-02-02] MEDS: Chlorhexidine Gluconate 2% 1 Pack (2 Cloths) TOPICAL SCH (06:16)
[2018-02-02] MEDS: Piperacil/Tazo 2.25 GM Premix 50 ML IV.SIG SCH ×3 (06:21→20:14)
[2018-02-02] MEDS: Potassium Chlor 40 mEq Premix 40 MEQ/100 ML PIGGYBACK IV.SIG SCH ×2 (06:27→08:37)
--- NOTE | 2018-02-02 07:32 | P.PNCA ---
Subjective Interval history: Patient remains intubated, sedated, mechanically ventilated. Telemetry shows no further arrhythmia since 01/29. Physical Exam Vital signs: Vital Signs 02/01/18 07:30 02/01/18 07:45 02/01/18 08:00 Temperature 98.8 F 98.8 F 98.8 F Pulse Rate 83 82 83 Respiratory Rate 16 15 14 Blood Pressure 113/61 114/64 112/65 Pulse Oximetry 100 100 100 02/01/18 08:03 02/01/18 08:07 02/01/18 08:15 Temperature 98.6 F Pulse Rate 101 H 81 Respiratory Rate 14 14 14 Blood Pressure 109/63 Pulse Oximetry 100 100 02/01/18 08:30 02/01/18 08:45 02/01/18 09:00 Temperature 98.6 F 98.6 F 98.4 F Pulse Rate 81 85 103 H Respiratory Rate 14 14 19 Blood Pressure 115/67 114/65 117/72 Pulse Oximetry 100 100 100 02/01/18 09:15 02/01/18 09:30 02/01/18 09:45 Temperature 98.4 F 98.6 F 98.6 F Pulse Rate 82 82 81 Respiratory Rate 14 14 14 Blood Pressure 101/58 L 98/54 L 90/53 L Pulse Oximetry 100 100 100 02/01/18 10:00 02/01/18 10:15 02/01/18 10:30 Temperature 98.6 F 98.6 F 98.6 F Pulse Rate 79 78 77 Respiratory Rate 14 13 13 Blood Pressure 89/51 L 91/50 L 92/52 L Pulse Oximetry 100 100 100 02/01/18 10:45 02/01/18 11:00 02/01/18 11:15 Temperature 98.6 F 98.6 F 98.6 F Pulse Rate 77 76 76 Respiratory Rate 14 13 14 Blood Pressure 92/50 L 93/51 L 90/51 L Pulse Oximetry 100 100 100 02/01/18 11:22 02/01/18 11:30 02/01/18 11:45 Temperature 98.6 F 98.6 F Pulse Rate 76 77 79 Respiratory Rate 14 14 13 Blood Pressure 91/50 L 91/50 L Pulse Oximetry 100 100 100 02/01/18 12:00 02/01/18 12:15 02/01/18 12:30 Temperature 98.6 F 98.6 F 98.6 F Pulse Rate 78 79 79 Respiratory Rate 13 14 14 Blood Pressure 90/51 L 93/51 L 90/50 L Pulse Oximetry 100 100 100 02/01/18 12:45 02/01/18 13:00 02/01/18 13:10 Temperature 98.6 F 98.6 F 98.4 F Pulse Rate 78 77 85 Respiratory Rate 14 14 15 Blood Pressure 89/50 L 90/55 L 87/54 L Pulse Oximetry 100 100 100 02/01/18 13:15 02/01/18 13:23 02/01/18 13:30 Temperature 98.6 F 98.6 F Pulse Rate 79 82 Respiratory Rate 16 Blood Pressure 92/54 L 89/51 L Pulse Oximetry 100 100 99 02/01/18 13:45 02/01/18 13:48 02/01/18 14:00 Temperature 98.8 F 98.6 F Pulse Rate 78 76 80 Respiratory Rate 12 18 Blood Pressure 89/53 L 90/53 L Pulse Oximetry 100 100 02/01/18 14:15 02/01/18 14:30 02/01/18 14:45 Temperature 98.6 F 98.4 F 98.2 F Pulse Rate 73 72 70 Respiratory Rate 11 L 15 15 Blood Pressure 90/51 L 90/51 L 93/51 L Pulse Oximetry 100 100 100 02/01/18 15:00 02/01/18 15:15 02/01/18 15:30 Temperature 98.1 F 97.9 F 97.9 F Pulse Rate 69 68 68 Respiratory Rate 17 19 19 Blood Pressure 91/51 L 93/52 L 89/53 L Pulse Oximetry 100 100 100 02/01/18 15:45 02/01/18 16:00 02/01/18 16:06 Temperature 97.9 F 97.9 F Pulse Rate 66 70 Respiratory Rate 22 18 12 Blood Pressure 91/53 L 98/62 L Pulse Oximetry 100 99 100 02/01/18 16:16 02/01/18 16:30 02/01/18 16:45 Temperature Pulse Rate 73 67 66 Respiratory Rate 18 13 Blood Pressure 147/69 H 99/53 L 96/55 L Pulse Oximetry 100 100 02/01/18 17:00 02/01/18 17:15 02/01/18 17:30 Temperature Pulse Rate 66 66 66 Respiratory Rate 13 12 13 Blood Pressure 96/53 L 94/54 L 96/53 L Pulse Oximetry 100 100 100 02/01/18 17:42 02/01/18 17:45 02/01/18 18:00 Temperature Pulse Rate 66 65 64 Respiratory Rate 13 12 Blood Pressure 95/52 L 94/54 L Pulse Oximetry 100 100 02/01/18 18:15 02/01/18 18:30 02/01/18 18:45 Temperature Pulse Rate 68 64 63 Respiratory Rate 23 15 13 Blood Pressure 96/57 L 99/56 L 99/55 L Pulse Oximetry 99 99 98 02/01/18 19:00 02/01/18 19:15 02/01/18 19:30 Temperature Pulse Rate 63 66 63 Respiratory Rate 25 H 30 H 15 Blood Pressure 102/55 L 105/66 100/62 Pulse Oximetry 98 98 97 02/01/18 19:45 02/01/18 20:00 02/01/18 20:15 Temperature 97.3 F L Pulse Rate 63 67 63 Respiratory Rate 17 32 H 17 Blood Pressure 101/64 106/65 104/65 Pulse Oximetry 97 98 98 02/01/18 20:30 02/01/18 20:45 02/01/18 21:00 Temperature Pulse Rate 62 62 63 Respiratory Rate 13 18 23 Blood Pressure 103/64 105/65 107/66 Pulse Oximetry 98 97 97 02/01/18 21:15 02/01/18 21:18 02/01/18 21:22 Temperature Pulse Rate 62 62 Respiratory Rate 21 12 17 Blood Pressure 105/67 Pulse Oximetry 97 100 02/01/18 21:30 02/01/18 21:45 02/01/18 22:00 Temperature Pulse Rate 62 66 67 Respiratory Rate 24 15 14 Blood Pressure 105/67 105/64 104/62 Pulse Oximetry 99 98 98 02/01/18 22:15 02/01/18 22:30 02/01/18 22:45 Temperature Pulse Rate 65 65 64 Respiratory Rate 16 15 15 Blood Pressure 107/68 108/70 106/67 Pulse Oximetry 100 100 100 02/01/18 23:00 02/01/18 23:15 02/01/18 23:30 Temperature Pulse Rate 61 62 62 Respiratory Rate 18 14 15 Blood Pressure 109/69 109/68 108/69 Pulse Oximetry 100 100 100 02/01/18 23:45 02/02/18 00:00 02/02/18 00:15 Temperature 96.5 F L Pulse Rate 61 71 61 Respiratory Rate 15 15 14 Blood Pressure 108/72 111/74 111/74 Pulse Oximetry 100 100 100 02/02/18 00:30 02/02/18 00:45 02/02/18 00:50 Temperature Pulse Rate 61 61 Respiratory Rate 15 14 18 Blood Pressure 111/75 112/77 Pulse Oximetry 100 100 100 02/02/18 01:00 02/02/18 01:01 02/02/18 01:15 Temperature Pulse Rate 63 71 61 Respiratory Rate 21 24 15 Blood Pressure 110/73 111/72 Pulse Oximetry 100 100 100 02/02/18 01:30 02/02/18 01:45 02/02/18 02:00 Temperature Pulse Rate 62 61 60 Respiratory Rate 22 18 17 Blood Pressure 107/71 110/75 110/76 Pulse Oximetry 100 100 100 02/02/18 02:15 02/02/18 02:30 02/02/18 02:45 Temperature Pulse Rate 62 62 61 Respiratory Rate 18 15 18 Blood Pressure 112/75 110/75 112/76 Pulse Oximetry 100 100 100 02/02/18 03:00 02/02/18 03:15 02/02/18 03:29 Temperature Pulse Rate 62 62 62 Respiratory Rate 15 19 14 Blood Pressure 111/77 112/75 Pulse Oximetry 100 100 02/02/18 03:30 02/02/18 03:45 02/02/18 04:00 Temperature Pulse Rate 62 64 64 Respiratory Rate 14 17 16 Blood Pressure 110/73 112/74 112/72 Pulse Oximetry 100 100 100 02/02/18 04:15 02/02/18 04:17 02/02/18 04:27 Temperature 97.5 F L Pulse Rate 65 Respiratory Rate 15 19 Blood Pressure 112/72 Pulse Oximetry 100 100 02/02/18 04:30 02/02/18 04:45 02/02/18 05:00 Temperature Pulse Rate 66 83 65 Respiratory Rate 15 28 H 23 Blood Pressure 109/70 115/73 76/50 L Pulse Oximetry 100 96 85 L 02/02/18 05:09 02/02/18 05:15 02/02/18 05:30 Temperature Pulse Rate 67 64 66 Respiratory Rate 20 19 18 Blood Pressure 104/60 104/60 106/62 Pulse Oximetry 100 99 99 02/02/18 05:45 09/06/18 06:00 02/02/18 06:15 Temperature Pulse Rate 65 65 65 Respiratory Rate 17 17 17 Blood Pressure 106/64 109/64 107/65 Pulse Oximetry 98 100 100 02/02/18 06:30 02/02/18 07:00 Temperature Pulse Rate 64 63 Respiratory Rate 17 17 Blood Pressure 110/67 106/68 Pulse Oximetry 100 100 Intake & Output 02/01/18 02/02/18 02/02/18 18:59 06:59 18:59 Intake Total 2041.1 / 2041.1 1069.3 / 1069.3 Output Total 1100 / 1100 1150 / 1150 Balance 941.1 / 941.1 -80.7 / -80.7 Weight 184 lb 1.376 oz Intake: IV 1741.1 / 1741.1 675.3 / 675.3 DOBUTamine 500 MG/250 ML Premx 15 / 15 500 mg In 250 ml @ 2 MCG/KG/MIN 4.5 mls/hr IV.CONT .Q24H GERMAINE Rx#:[id number] Precedex Inj 1,000 MCG In NS 250 / 250 Inj 240 ML @ 0.2 MCG/KG/HR 4.17 mls/hr IV.CONT TITRATE PRN Rx# :[id number] Heparin/D5W 25,000 U/250 mL 25, 250 / 250 000 unit In 250 ml @ Per Protocol IV.CONT TITRATE PRN Rx #:[id number] Versed Inj 50 mg In 50 ml @ 2 50 / 50 50 / 50 MG/HR 2 mls/hr IV.CONT TITRATE PRN Rx#:[id number] Diprivan 1000 mg/100 ml Inj 1, 110 / 110 000 mg In 100 ml @ 5 MCG/KG/MIN 2.25 mls/hr IV.CONT TITRATE PRN Rx#:[id number] MVI-12 Inj 10 ML Folvite Inj 1 510.2 / 510.2 MG In NS Inj 500 ML @ 125 mls/ hr IV.SIG DAILY GERMAINE Rx#: [id number] Zosyn 2.25 GM Premix 50 ML @ 100 / 100 100 / 100 100 mls/hr IV.SIG Q8H GERMAINE Rx#: [id number] KCl Inj 40 MEQ In D5W Inj 100 100 / 100 120 / 120 ML @ 25 mls/hr IV.SIG Q4H GERMAINE Rx#:[id number] Thiamine Inj 30 MG In NS Inj 200.6 / 200.6 100 ML @ 100.3 mls/hr IV.SIG Q8H [facility] Rx#:[id number] Thiamine Inj 30 MG In NS Inj 50 50.3 / 50.3 50.3 / 50.3 ML @ 201.2 mls/hr IV.SIG Q8H [facility] Rx#:[id number] fentaNYL 10 mcg/mL Premix Drip 250 / 250 2,500 mcg In 250 ml @ 50 MCG/HR 5 mls/hr IV.SIG TITRATE PRN Rx #:[id number] Keppra Inj 500 MG In NS Inj 100 105 / 105 105 / 105 ML @ 400 mls/hr IV.SIG Q12H [facility] Rx#:[id number] Tube Feeding 300 / 300 314 / 314 Tube Irrigant 80 / 80 Output: Urine Amount (Catheter) 1100 / 1100 1150 / 1150 Coude 1100 / 1100 1150 / 1150 Other: Date of Last Bowel Movement 02/01/18 02/01/18 # Incontinent Bowel Movements 3 Narrative: GENERAL: Well-developed well-nourished. NECK: No carotid bruits. No JVD. CARDIOVASCULAR: Regular rate and rhythm. No murmur appreciated. RESPIRATORY: Mechanically ventilated. Coarse breath sounds. MUSCULOSKELETAL: No clubbing or cyanosis. No edema. NEUROLOGICAL: Intubated, sedated. - Urinary Catheter Management Coude Cath placed during this visit: yes Reason for continuing: Hourly intake/output Insertion date: 01/28/18 Insertion time: 13:15 Assessment and Plan - Plan Vfib arrest - cardiomyopathy + severe hypokalemia (reversible cause) Will need LifeVest upon DC. I do not believe he qualifies for ICD for secondary prevention given severe hypokalemia, discuss with EP and see if they want to be formally involved. Consider adding beta-viviana when BP improves cardiomyopathy - EF 25% 01/28. More likely nonischemic given age. elevated troponin - likely due to cardiac arrest and not primary thrombotic mediated event. agree with CTA coronary when clinically stable. heparin gtt till then. will need to slow HR down closer to 60 bpm for CTA but limited by SBP and Cr due to ATN. Wait for Cr to improve
[2018-02-02] MEDS: Aspirin 325 MG Tablet PO SCH (08:37)
[2018-02-02] MEDS: Chlorhexidine 0.12% Oral Kit 15 ML UDC OROPHARYNG SCH ×2 (08:37→20:05)
[2018-02-02] MEDS: Pantoprazole Inj 40 MG Vial IV.PUSH SCH (08:38)
[2018-02-02] MEDS: Multivitamin Inj 10 ML, Folic Acid Inj 1 MG in Sodium Chlor 0.9% Inj 500 ML IV.SIG SCH (08:38)
[2018-02-02] MEDS: Senna/Docusate Sodium 8.6/50 MG Tablet PO SCH ×2 (08:38→20:06)
[2018-02-02] MEDS: Midazolam 50 MG/50 ML Inj 50 MG/50 ML BAG IV.CONT PRN ×3 (09:02→21:16)
--- NOTE | 2018-02-02 09:12 | P.PNCC ---
Subjective Subjective Remarks/Hospital Course: Hospital Course: This is a 32-year-old male. Admission 01/28/2018. Past medical history includes seizure disorder/noncompliant with levetiracetam, previous EtOH sober for 4 weeks, anorexia, gastroesophageal reflux disease and chronic pancreatitis. Patient presented to [facility] 01/28/2018 with a two-day history of nausea vomiting and diarrhea. Patient's mother/discussed at bedside stated she had just had a "stomach flu" which she has currently recovered. Mom states that the patient has become fairly dehydrated is been having some cramping of his hands. She is worried that he is getting dehydrated and his potassium might begin low. He was unable to tolerate a banana so she gave him some potassium pills p.o. which she also did not tolerate and threw up. Sober 4 weeks according to mother. Patient was noted to have a low potassium at 2.0. Creatinine of 4.0. This is in line with his previous hospitalizations for acute dehydration. Lipase was slightly elevated. Patient does have a history of seizure disorder which is not compliant with levetiracetam. ED physician was called into room because the RN believed he had a seizure. Patient was unresponsive. Mother states this was not like any seizure that she had seen. Pulses not palpable therefore CPR was initiated. Initial rhythm was V. fib. Patient received amiodarone, lidocaine, epinephrine, bicarbonate, magnesium during the 35 minute code with return of spontaneous circulation after 35 minutes. Pupils are about 9 mils bilaterally and 6. When I saw the patient patient was actively thrashing moving all 4 extremities spontaneously but not to command. Pupils are round 8 mm bilaterally and nonreactive. Brain CT revealed no acute findings. CT thorax revealed a left upper and lower lobe. CT abdomen pelvis pending at time of dictation. Likely, troponin pending. EKG revealed incomplete right bundle block with ST depression in the inferior and lateral leads. Cardiology consulted. They will evaluate after stat echocardiogram and troponins been completed. Potassium will be replaced pending BMP Subjective: 01/29: persistently in shock. following commands this AM. trop uptrended overnight and now > 40. on levo @ 10, vasopressin. bedside echo with persistence of his global severe LV systolic dysfunction. IVC dilated without respiratory variation. initially attempted therapeutic hypothermia, but became arrhythmogenic and neurologic exam improved and now following commands, so hypothermia aborted. persistently hypokalemic and hypophosphatemic this AM. in addition, remains with severe metabolic alkalosis. 01/30: Troponin trending down, continues to have severe hypokalemia and metabolic alkalosis. Creatinine continues to trend up, only produced 200 cc of urine over the past 24 hours. 01/31: Patient seen by nephrology yesterday and given bumex, urine output dramatically increased, potassium improved with aggressive repletion, pressors now off and dobutamine at 5. 02/01: No issues overnight. Patient tolerated dobutamine at 2 yesterday, discontinued this morning. Switching propofol to precedex and would like to start SBTs today. Overall improved. 02/02: Tolerated switch to precedex yesterday and was on bipap 05/06 for several hours yesterday afternoon, placed back on AC overnight to avoid respiratory fatigue. Objective Vital Signs / I&O: Vital Signs 02/01/18 09:15 02/01/18 09:30 02/01/18 09:45 Temperature 98.4 F 98.6 F 98.6 F Pulse Rate 82 82 81 Respiratory Rate 14 14 14 Blood Pressure 101/58 L 98/54 L 90/53 L Pulse Oximetry 100 100 100 02/01/18 10:00 02/01/18 10:15 02/01/18 10:30 Temperature 98.6 F 98.6 F 98.6 F Pulse Rate 79 78 77 Respiratory Rate 14 13 13 Blood Pressure 89/51 L 91/50 L 92/52 L Pulse Oximetry 100 100 100 02/01/18 10:45 02/01/18 11:00 02/01/18 11:15 Temperature 98.6 F 98.6 F 98.6 F Pulse Rate 77 76 76 Respiratory Rate 14 13 14 Blood Pressure 92/50 L 93/51 L 90/51 L Pulse Oximetry 100 100 100 02/01/18 11:22 02/01/18 11:30 02/01/18 11:45 Temperature 98.6 F 98.6 F Pulse Rate 76 77 79 Respiratory Rate 14 14 13 Blood Pressure 91/50 L 91/50 L Pulse Oximetry 100 100 100 02/01/18 12:00 02/01/18 12:15 02/01/18 12:30 Temperature 98.6 F 98.6 F 98.6 F Pulse Rate 78 79 79 Respiratory Rate 13 14 14 Blood Pressure 90/51 L 93/51 L 90/50 L Pulse Oximetry 100 100 100 02/01/18 12:45 02/01/18 13:00 02/01/18 13:10 Temperature 98.6 F 98.6 F 98.4 F Pulse Rate 78 77 85 Respiratory Rate 14 14 15 Blood Pressure 89/50 L 90/55 L 87/54 L Pulse Oximetry 100 100 100 02/01/18 13:15 02/01/18 13:23 02/01/18 13:30 Temperature 98.6 F 98.6 F Pulse Rate 79 82 Respiratory Rate 16 Blood Pressure 92/54 L 89/51 L Pulse Oximetry 100 100 99 02/01/18 13:45 02/01/18 13:48 02/01/18 14:00 Temperature 98.8 F 98.6 F Pulse Rate 78 76 80 Respiratory Rate 12 18 Blood Pressure 89/53 L 90/53 L Pulse Oximetry 100 100 02/01/18 14:15 02/01/18 14:30 02/01/18 14:45 Temperature 98.6 F 98.4 F 98.2 F Pulse Rate 73 72 70 Respiratory Rate 11 L 15 15 Blood Pressure 90/51 L 90/51 L 93/51 L Pulse Oximetry 100 100 100 02/01/18 15:00 02/01/18 15:15 02/01/18 15:30 Temperature 98.1 F 97.9 F 97.9 F Pulse Rate 69 68 68 Respiratory Rate 17 19 19 Blood Pressure 91/51 L 93/52 L 89/53 L Pulse Oximetry 100 100 100 02/01/18 15:45 02/01/18 16:00 02/01/18 16:06 Temperature 97.9 F 97.9 F Pulse Rate 66 70 Respiratory Rate 22 18 12 Blood Pressure 91/53 L 98/62 L Pulse Oximetry 100 99 100 02/01/18 16:16 02/01/18 16:30 02/01/18 16:45 Temperature Pulse Rate 73 67 66 Respiratory Rate 18 13 Blood Pressure 147/69 H 99/53 L 96/55 L Pulse Oximetry 100 100 02/01/18 17:00 02/01/18 17:15 02/01/18 17:30 Temperature Pulse Rate 66 66 66 Respiratory Rate 13 12 13 Blood Pressure 96/53 L 94/54 L 96/53 L Pulse Oximetry 100 100 100 09/05/18 17:42 02/01/18 17:45 02/01/18 18:00 Temperature Pulse Rate 66 65 64 Respiratory Rate 13 12 Blood Pressure 95/52 L 94/54 L Pulse Oximetry 100 100 02/01/18 18:15 02/01/18 18:30 02/01/18 18:45 Temperature Pulse Rate 68 64 63 Respiratory Rate 23 15 13 Blood Pressure 96/57 L 99/56 L 99/55 L Pulse Oximetry 99 99 98 02/01/18 19:00 02/01/18 19:15 02/01/18 19:30 Temperature Pulse Rate 63 66 63 Respiratory Rate 25 H 30 H 15 Blood Pressure 102/55 L 105/66 100/62 Pulse Oximetry 98 98 97 02/01/18 19:45 02/01/18 20:00 02/01/18 20:15 Temperature 97.3 F L Pulse Rate 63 67 63 Respiratory Rate 17 32 H 17 Blood Pressure 101/64 106/65 104/65 Pulse Oximetry 97 98 98 02/01/18 20:30 02/01/18 20:45 02/01/18 21:00 Temperature Pulse Rate 62 62 63 Respiratory Rate 13 18 23 Blood Pressure 103/64 105/65 107/66 Pulse Oximetry 98 97 97 02/01/18 21:15 02/01/18 21:18 02/01/18 21:22 Temperature Pulse Rate 62 62 Respiratory Rate 21 12 17 Blood Pressure 105/67 Pulse Oximetry 97 100 02/01/18 21:30 02/01/18 21:45 02/01/18 22:00 Temperature Pulse Rate 62 66 67 Respiratory Rate 24 15 14 Blood Pressure 105/67 105/64 104/62 Pulse Oximetry 99 98 98 02/01/18 22:15 02/01/18 22:30 02/01/18 22:45 Temperature Pulse Rate 65 65 64 Respiratory Rate 16 15 15 Blood Pressure 107/68 108/70 106/67 Pulse Oximetry 100 100 100 02/01/18 23:00 02/01/18 23:15 02/01/18 23:30 Temperature Pulse Rate 61 62 62 Respiratory Rate 18 14 15 Blood Pressure 109/69 109/68 108/69 Pulse Oximetry 100 100 100 02/01/18 23:45 02/02/18 00:00 02/02/18 00:15 Temperature 96.5 F L Pulse Rate 61 71 61 Respiratory Rate 15 15 14 Blood Pressure 108/72 111/74 111/74 Pulse Oximetry 100 100 100 02/02/18 00:30 02/02/18 00:45 02/02/18 00:50 Temperature Pulse Rate 61 61 Respiratory Rate 15 14 18 Blood Pressure 111/75 112/77 Pulse Oximetry 100 100 100 02/02/18 01:00 02/02/18 01:01 02/02/18 01:15 Temperature Pulse Rate 63 71 61 Respiratory Rate 21 24 15 Blood Pressure 110/73 111/72 Pulse Oximetry 100 100 100 02/02/18 01:30 02/02/18 01:45 02/02/18 02:00 Temperature Pulse Rate 62 61 60 Respiratory Rate 22 18 17 Blood Pressure 107/71 110/75 110/76 Pulse Oximetry 100 100 100 02/02/18 02:15 02/02/18 02:30 02/02/18 02:45 Temperature Pulse Rate 62 62 61 Respiratory Rate 18 15 18 Blood Pressure 112/75 110/75 112/76 Pulse Oximetry 100 100 100 02/02/18 03:00 02/02/18 03:15 02/02/18 03:29 Temperature Pulse Rate 62 62 62 Respiratory Rate 15 19 14 Blood Pressure 111/77 112/75 Pulse Oximetry 100 100 02/02/18 03:30 02/02/18 03:45 02/02/18 04:00 Temperature Pulse Rate 62 64 64 Respiratory Rate 14 17 16 Blood Pressure 110/73 112/74 112/72 Pulse Oximetry 100 100 100 02/02/18 04:15 02/02/18 04:17 02/02/18 04:27 Temperature 97.5 F L Pulse Rate 65 Respiratory Rate 15 19 Blood Pressure 112/72 Pulse Oximetry 100 100 02/02/18 04:30 02/02/18 04:45 02/02/18 05:00 Temperature Pulse Rate 66 83 65 Respiratory Rate 15 28 H 23 Blood Pressure 109/70 115/73 76/50 L Pulse Oximetry 100 96 85 L 02/02/18 05:09 02/02/18 05:15 02/02/18 05:30 Temperature Pulse Rate 67 64 66 Respiratory Rate 20 19 18 Blood Pressure 104/60 104/60 106/62 Pulse Oximetry 100 99 99 02/02/18 05:45 02/02/18 06:00 02/02/18 06:15 Temperature Pulse Rate 65 65 65 Respiratory Rate 17 17 17 Blood Pressure 106/64 109/64 107/65 Pulse Oximetry 98 100 100 02/02/18 06:30 02/02/18 07:00 02/02/18 08:13 Temperature Pulse Rate 64 63 62 Respiratory Rate 17 17 17 Blood Pressure 110/67 106/68 Pulse Oximetry 100 100 02/02/18 08:14 Temperature Pulse Rate Respiratory Rate 16 Blood Pressure Pulse Oximetry 100 Intake & Output 02/01/18 02/02/18 02/02/18 18:59 06:59 18:59 Intake Total 2041.1 / 2041.1 1069.3 / 1069.3 150 / 150 Output Total 1100 / 1100 1150 / 1150 Balance 941.1 / 941.1 -80.7 / -80.7 150 / 150 Weight 83.5 kg Intake: IV 1741.1 / 1741.1 675.3 / 675.3 150 / 150 DOBUTamine 500 MG/250 ML Premx 15 / 15 500 mg In 250 ml @ 2 MCG/KG/MIN 4.5 mls/hr IV.CONT .Q24H GERMAINE Rx#:[id number] Precedex Inj 1,000 MCG In NS 250 / 250 Inj 240 ML @ 0.2 MCG/KG/HR 4.17 mls/hr IV.CONT TITRATE PRN Rx# :[id number] Heparin/D5W 25,000 U/250 mL 25, 250 / 250 000 unit In 250 ml @ Per Protocol IV.CONT TITRATE PRN Rx #:[id number] Versed Inj 50 mg In 50 ml @ 2 50 / 50 50 / 50 50 / 50 MG/HR 2 mls/hr IV.CONT TITRATE PRN Rx#:[id number] Diprivan 1000 mg/100 ml Inj 1, 110 / 110 000 mg In 100 ml @ 5 MCG/KG/MIN 2.25 mls/hr IV.CONT TITRATE PRN Rx#:[id number] MVI-12 Inj 10 ML Folvite Inj 1 510.2 / 510.2 MG In NS Inj 500 ML @ 125 mls/ hr IV.SIG DAILY GERMAINE Rx#: [id number] Zosyn 2.25 GM Premix 50 ML @ 100 / 100 100 / 100 100 mls/hr IV.SIG Q8H GERMAINE Rx#: [id number] KCl 40 mEq Premix Inj 40 meq In 100 / 100 100 ml @ 25 mls/hr IV.SIG Q4H GERMAINE Rx#:[id number] KCl Inj 40 MEQ In D5W Inj 100 100 / 100 120 / 120 ML @ 25 mls/hr IV.SIG Q4H GERMAINE Rx#:[id number] Thiamine Inj 30 MG In NS Inj 200.6 / 200.6 100 ML @ 100.3 mls/hr IV.SIG Q8H GERMAINE Rx#:[id number] Thiamine Inj 30 MG In NS Inj 50 50.3 / 50.3 50.3 / 50.3 ML @ 201.2 mls/hr IV.SIG Q8H GERMAINE Rx#:[id number] fentaNYL 10 mcg/mL Premix Drip 250 / 250 2,500 mcg In 250 ml @ 50 MCG/HR 5 mls/hr IV.SIG TITRATE PRN Rx #:[id number] Keppra Inj 500 MG In NS Inj 100 105 / 105 105 / 105 ML @ 400 mls/hr IV.SIG Q12H GERMAINE Rx#:[id number] Tube Feeding 300 / 300 314 / 314 Tube Irrigant 80 / 80 Output: Urine Amount (Catheter) 1100 / 1100 1150 / 1150 Coude 1100 / 1100 1150 / 1150 Other: Date of Last Bowel Movement 02/01/18 02/01/18 # Incontinent Bowel Movements 3 Result Diagrams: 02/02/18 03:15 02/02/18 03:15 Objective Remarks: GENERAL: Intubated and sedated HEENT: NCAT, PERRL, ETT present NECK: Trachea midline CHEST: Mechanical breath sounds bilaterally. Subclavian TLC on right. CARDIOVASCULAR: Normal rate, regular rhythm ABDOMEN: Soft, non-tender in all quadrants MUSCULOSKELETAL: Pulses 2+. No peripheral edema. NEUROLOGICAL: RASS 0 to -1, no agitation, opens eyes to voice and makes eye contact, follows some simple commands Assessment and Plan - Assessment and Plan Plan: Assessment: 32-year-old male with history of EtOH abuse and chronic pancreatitis who presents with severe hypokalemia, dehydration, and cardiac arrest. Patient has persistence of his severe LV systolic dysfunction and is in persistent cardiogenic shock. Will start inotropic therapy with dobutamine. Continue to trend lactates. Trend troponins. V. fib cardiac arrest is concerning for coronary disease, although patient is quite young. Will start heparin drip and aspirin until coronary artery disease can be definitively ruled out, we will trend troponins. Aggressively replace electrolytes and we will have to start IV Diamox to help with his metabolic alkalosis, having now ensure that the patient is intravascularly volume replete. Remains very critically ill with multiple organ systems are life-threatening at this time. Neuro/Psych: Seizure disorder NOS History of EtOH sober 4 weeks History of anorexia/bulimia Sedated on precedex, fentanyl at present and tolerating well Goal of RASS 0 to -1, daily sedation vacations Continue keppra 500 BID (home dose) Continue holding quetiapine 50 mg 3 times daily/home medication Patient has a previous history of heavy EtOH abuse and bulimia as per mother-- continue thiamine/ folate supplementation Delirium precautions- lights on/ shades up during the day, limit nighttime disruptions, frequent reorientation to environment CV: In-hospital cardiac arrest V. fib arrest Cardiogenic Shock Severe LV systolic dysfunction Plan is still for cardiac perfusion study when creatinine improves Off dobutamine x 24 hours, off pressors x several days Echo 01/28: severe LV systolic dysfunction, EF 20-25%. mildly depressed RV function. no valvular lesions. Continue heparin drip, ASA daily Continued empiric supplementation for ? beriberi Resp: Acute hypoxic respiratory failure Left upper/lower lobe pulmonary infiltrates Ventilator bundle Albuterol/ipratropium aerosols every 4 hours with albuterol nebs q2 PRN Chest PT, pulmonary hygiene Daily SBTs GI: Elevated lipase/mild pancreatitis Left hepatic pneumobilia history of chronic pancreatitis Suplena @ 25 mL/hr, goal 50 Pantoprazole for GI prophylaxis. On pantoprazole 40 mg daily at home. Docusate serum/senna 1 tablet twice daily for bowel regimen CT abdomen/pelvis revealed mild pancreatitis. There was a small amount of hepatic gas seen on CT scan (likely pneumobilia, cannot exclude portal venous gas) but RUQ US showed no acute pathology. Renal/ : Acute kidney injury Machado catheter for accurate I's and O's in a critically ill patient Creatinine peaked around 6, continues to improve today. Urine output 1 cc/kg/hr but was not given bumex yesterday due to borderline SBP Nephrology recommendations appreciated Endo: Sliding scale insulin with Accu-Cheks to maintain euglycemia aspart insulin every 6 hours, IV dextrose as needed for hypoglycemia Heme: Leukocytosis Macrocytic anemia Mild coagulopathy Monitor CBC daily. Follow trends. ID: Placed on piperacillin/tazobactam and vancomycin renally dosed, vanc trough 15.8 yesterday 1 blood culture from 01/28 and 01/31 positive for gram (+) cocci but 2nd blood culture from each set remains negative, awaiting ID and sensitivities Sputum, UA and influenza all NGTD Given persistent gram positive bacteremia, will consult ID FEN: severe life-threatening Hypokalemia severe life-threatening hypophosphatemia severe metabolic alkalosis Alkalemia overall is improving. He continues to require aggressive electrolyte repletion. Continue to check lytes q12h. MSK: PT evaluate and treat Access: - 01/29 right radial art line - 01/29 right SC TLC with CVP monitoring - machado: needs to keep for hourly outputs. Prophylaxis -GI-pantoprazole -DVT SCD/heparin gtt Counseling/ Coordination of Care: Total critical care time: 45 minutes. This includes examining the patient, gathering history from someone other than the patient (i.e., chart review), discussing the patient's care with other providers, managing the patient's blood pressure and ventilator settings, ordering and interpreting radiology studies, ordering and interpreting laboratory studies, managing the patient's pain and sedation requirements, re-evaluation at frequent intervals, and documentation. All critical care time is separate and exclusive of procedures, teaching, and patient/ family updates.
[2018-02-02] MEDS ORDERED: Magnesium Sulfate Inj 4 GM in Dextrose 5% in Water Inj 100 ML IV.SIG ONE ×2 (09:26)
[2018-02-02] MEDS: fentaNYL 10 mcg/mL Premix Drip 2,500 MCG/250 ML BAG IV.SIG PRN (09:36)
--- NOTE | 2018-02-02 11:11 | P.PNNP ---
Subjective Interval history: Renal function is slightly better. Remains intubated, on CPAP. Not given Bumex due to hypotension yesterday. <Laura Petit - Last Filed: 02/02/18 11:05> Physical Exam Vital signs: Vital Signs 02/01/18 11:15 02/01/18 11:22 02/01/18 11:30 Temperature 98.6 F 98.6 F Pulse Rate 76 76 77 Respiratory Rate 14 14 14 Blood Pressure 90/51 L 91/50 L Pulse Oximetry 100 100 100 02/01/18 11:45 02/01/18 12:00 02/01/18 12:15 Temperature 98.6 F 98.6 F 98.6 F Pulse Rate 79 78 79 Respiratory Rate 13 13 14 Blood Pressure 91/50 L 90/51 L 93/51 L Pulse Oximetry 100 100 100 02/01/18 12:30 02/01/18 12:45 02/01/18 13:00 Temperature 98.6 F 98.6 F 98.6 F Pulse Rate 79 78 77 Respiratory Rate 14 14 14 Blood Pressure 90/50 L 89/50 L 90/55 L Pulse Oximetry 100 100 100 02/01/18 13:10 02/01/18 13:15 02/01/18 13:23 Temperature 98.4 F 98.6 F Pulse Rate 85 79 Respiratory Rate 15 16 Blood Pressure 87/54 L 92/54 L Pulse Oximetry 100 100 100 02/01/18 13:30 02/01/18 13:45 02/01/18 13:48 Temperature 98.6 F 98.8 F Pulse Rate 82 78 76 Respiratory Rate 12 Blood Pressure 89/51 L 89/53 L Pulse Oximetry 99 100 02/01/18 14:00 02/01/18 14:15 02/01/18 14:30 Temperature 98.6 F 98.6 F 98.4 F Pulse Rate 80 73 72 Respiratory Rate 18 11 L 15 Blood Pressure 90/53 L 90/51 L 90/51 L Pulse Oximetry 100 100 100 02/01/18 14:45 02/01/18 15:00 02/01/18 15:15 Temperature 98.2 F 98.1 F 97.9 F Pulse Rate 70 69 68 Respiratory Rate 15 17 19 Blood Pressure 93/51 L 91/51 L 93/52 L Pulse Oximetry 100 100 100 02/01/18 15:30 09/05/18 15:45 02/01/18 16:00 Temperature 97.9 F 97.9 F 97.9 F Pulse Rate 68 66 70 Respiratory Rate 19 22 18 Blood Pressure 89/53 L 91/53 L 98/62 L Pulse Oximetry 100 100 99 02/01/18 16:06 02/01/18 16:16 02/01/18 16:30 Temperature Pulse Rate 73 67 Respiratory Rate 12 18 Blood Pressure 147/69 H 99/53 L Pulse Oximetry 100 100 02/01/18 16:45 02/01/18 17:00 02/01/18 17:15 Temperature Pulse Rate 66 66 66 Respiratory Rate 13 13 12 Blood Pressure 96/55 L 96/53 L 94/54 L Pulse Oximetry 100 100 100 02/01/18 17:30 02/01/18 17:42 02/01/18 17:45 Temperature Pulse Rate 66 66 65 Respiratory Rate 13 13 Blood Pressure 96/53 L 95/52 L Pulse Oximetry 100 100 02/01/18 18:00 02/01/18 18:15 02/01/18 18:30 Temperature Pulse Rate 64 68 64 Respiratory Rate 12 23 15 Blood Pressure 94/54 L 96/57 L 99/56 L Pulse Oximetry 100 99 99 02/01/18 18:45 02/01/18 19:00 02/01/18 19:15 Temperature Pulse Rate 63 63 66 Respiratory Rate 13 25 H 30 H Blood Pressure 99/55 L 102/55 L 105/66 Pulse Oximetry 98 98 98 02/01/18 19:30 02/01/18 19:45 02/01/18 20:00 Temperature 97.3 F L Pulse Rate 63 63 67 Respiratory Rate 15 17 32 H Blood Pressure 100/62 101/64 106/65 Pulse Oximetry 97 97 98 02/01/18 20:15 02/01/18 20:30 02/01/18 20:45 Temperature Pulse Rate 63 62 62 Respiratory Rate 17 13 18 Blood Pressure 104/65 103/64 105/65 Pulse Oximetry 98 98 97 02/01/18 21:00 02/01/18 21:15 02/01/18 21:18 Temperature Pulse Rate 63 62 62 Respiratory Rate 23 21 12 Blood Pressure 107/66 105/67 Pulse Oximetry 97 97 02/01/18 21:22 02/01/18 21:30 02/01/18 21:45 Temperature Pulse Rate 62 66 Respiratory Rate 17 24 15 Blood Pressure 105/67 105/64 Pulse Oximetry 100 99 98 02/01/18 22:00 02/01/18 22:15 02/01/18 22:30 Temperature Pulse Rate 67 65 65 Respiratory Rate 14 16 15 Blood Pressure 104/62 107/68 108/70 Pulse Oximetry 98 100 100 02/01/18 22:45 02/01/18 23:00 02/01/18 23:15 Temperature Pulse Rate 64 61 62 Respiratory Rate 15 18 14 Blood Pressure 106/67 109/69 109/68 Pulse Oximetry 100 100 100 02/01/18 23:30 02/01/18 23:45 02/02/18 00:00 Temperature Pulse Rate 62 61 71 Respiratory Rate 15 15 15 Blood Pressure 108/69 108/72 111/74 Pulse Oximetry 100 100 100 02/02/18 00:15 02/02/18 00:30 02/02/18 00:45 Temperature 96.5 F L Pulse Rate 61 61 61 Respiratory Rate 14 15 14 Blood Pressure 111/74 111/75 112/77 Pulse Oximetry 100 100 100 02/02/18 00:50 02/02/18 01:00 02/02/18 01:01 Temperature Pulse Rate 63 71 Respiratory Rate 18 21 24 Blood Pressure 110/73 Pulse Oximetry 100 100 100 02/02/18 01:15 02/02/18 01:30 02/02/18 01:45 Temperature Pulse Rate 61 62 61 Respiratory Rate 15 22 18 Blood Pressure 111/72 107/71 110/75 Pulse Oximetry 100 100 100 02/02/18 02:00 02/02/18 02:15 02/02/18 02:30 Temperature Pulse Rate 60 62 62 Respiratory Rate 17 18 15 Blood Pressure 110/76 112/75 110/75 Pulse Oximetry 100 100 100 02/02/18 02:45 02/02/18 03:00 02/02/18 03:15 Temperature Pulse Rate 61 62 62 Respiratory Rate 18 15 19 Blood Pressure 112/76 111/77 112/75 Pulse Oximetry 100 100 100 02/02/18 03:29 02/02/18 03:30 02/02/18 03:45 Temperature Pulse Rate 62 62 64 Respiratory Rate 14 14 17 Blood Pressure 110/73 112/74 Pulse Oximetry 100 100 02/02/18 04:00 02/02/18 04:15 02/02/18 04:17 Temperature 97.5 F L Pulse Rate 64 65 Respiratory Rate 16 15 Blood Pressure 112/72 112/72 Pulse Oximetry 100 100 02/02/18 04:27 02/02/18 04:30 02/02/18 04:45 Temperature Pulse Rate 66 83 Respiratory Rate 19 15 28 H Blood Pressure 109/70 115/73 Pulse Oximetry 100 100 96 02/02/18 05:00 02/02/18 05:09 02/02/18 05:15 Temperature Pulse Rate 65 67 64 Respiratory Rate 23 20 19 Blood Pressure 76/50 L 104/60 104/60 Pulse Oximetry 85 L 100 99 02/02/18 05:30 02/02/18 05:45 02/02/18 06:00 Temperature Pulse Rate 66 65 65 Respiratory Rate 18 17 17 Blood Pressure 106/62 106/64 109/64 Pulse Oximetry 99 98 100 02/02/18 06:15 02/02/18 06:30 02/02/18 07:00 Temperature Pulse Rate 65 64 63 Respiratory Rate 17 17 17 Blood Pressure 107/65 110/67 106/68 Pulse Oximetry 100 100 100 02/02/18 08:00 02/02/18 08:13 02/02/18 08:14 Temperature 97.8 F Pulse Rate 63 62 Respiratory Rate 15 17 16 Blood Pressure 106/72 Pulse Oximetry 100 100 02/02/18 09:00 02/02/18 10:00 Temperature Pulse Rate 65 65 Respiratory Rate 15 13 Blood Pressure 106/64 105/68 Pulse Oximetry 92 L 98 Intake & Output 02/01/18 02/02/18 02/02/18 18:59 06:59 18:59 Intake Total 2041.1 / 2041.1 1069.3 / 1069.3 700.3 / 700.3 Output Total 1100 / 1100 1150 / 1150 Balance 941.1 / 941.1 -80.7 / -80.7 700.3 / 700.3 Weight 83.5 kg Intake: IV 1741.1 / 1741.1 675.3 / 675.3 700.3 / 700.3 DOBUTamine 500 MG/250 ML Premx 15 / 15 500 mg In 250 ml @ 2 MCG/KG/MIN 4.5 mls/hr IV.CONT .Q24H GERMAINE Rx#:[id number] Precedex Inj 1,000 MCG In NS 250 / 250 250 / 250 Inj 240 ML @ 0.2 MCG/KG/HR 4.17 mls/hr IV.CONT TITRATE PRN Rx# :[id number] Heparin/D5W 25,000 U/250 mL 25, 250 / 250 000 unit In 250 ml @ Per Protocol IV.CONT TITRATE PRN Rx #:[id number] Versed Inj 50 mg In 50 ml @ 2 50 / 50 50 / 50 50 / 50 MG/HR 2 mls/hr IV.CONT TITRATE PRN Rx#:[id number] Diprivan 1000 mg/100 ml Inj 1, 110 / 110 000 mg In 100 ml @ 5 MCG/KG/MIN 2.25 mls/hr IV.CONT TITRATE PRN Rx#:[id number] MVI-12 Inj 10 ML Folvite Inj 1 510.2 / 510.2 MG In NS Inj 500 ML @ 125 mls/ hr IV.SIG DAILY GERMAINE Rx#: [id number] Zosyn 2.25 GM Premix 50 ML @ 100 / 100 100 / 100 100 mls/hr IV.SIG Q8H GERMAINE Rx#: [id number] KCl 40 mEq Premix Inj 40 meq In 100 / 100 100 ml @ 25 mls/hr IV.SIG Q4H GERMAINE Rx#:[id number] KCl Inj 40 MEQ In D5W Inj 100 100 / 100 120 / 120 ML @ 25 mls/hr IV.SIG Q4H GERMAINE Rx#:[id number] Thiamine Inj 30 MG In NS Inj 200.6 / 200.6 100 ML @ 100.3 mls/hr IV.SIG Q8H GERMAINE Rx#:[id number] Thiamine Inj 30 MG In NS Inj 50 50.3 / 50.3 50.3 / 50.3 50.3 / 50.3 ML @ 201.2 mls/hr IV.SIG Q8H GERMAINE Rx#:[id number] fentaNYL 10 mcg/mL Premix Drip 250 / 250 250 / 250 2,500 mcg In 250 ml @ 50 MCG/HR 5 mls/hr IV.SIG TITRATE PRN Rx #:[id number] Keppra Inj 500 MG In NS Inj 100 105 / 105 105 / 105 ML @ 400 mls/hr IV.SIG Q12H GERMAINE Rx#:[id number] Tube Feeding 300 / 300 314 / 314 Tube Irrigant 80 / 80 Output: Urine Amount (Catheter) 1100 / 1100 1150 / 1150 Coude 1100 / 1100 1150 / 1150 Other: Date of Last Bowel Movement 02/01/18 02/01/18 02/01/18 # Incontinent Bowel Movements 3 - Constitutional no acute distress Comments: intubated, unresponsive - Routine HEENT Exam Head: Present: normocephalic - Routine Neck Exam Present: supple, full ROM - Routine Respiratory Exam Present: patient mechanically ventilated, CTA bilaterally - Routine Cardiovascular Exam Present: RRR, S1, S2 - Routine Abdominal Exam Present: soft, normoactive bowel sounds - Routine Extremities Exam Present: edema, pulses intact, normal capillary refill - Routine Skin Exam Present: intact, dry, warm - Routine Neurological Exam Present: normal tone sedated on the vent - Routine Psychiatric Exam Present: unable to assess - Urinary Catheter Management Coude Cath placed during this visit: yes Reason for continuing: Hourly intake/output Insertion date: 01/28/18 Insertion time: 13:15 <Laura Petit - Last Filed: 02/02/18 11:05> Vital signs: Vital Signs 02/01/18 21:18 02/01/18 21:22 02/01/18 21:30 Temperature Pulse Rate 62 62 Respiratory Rate 12 17 24 Blood Pressure 105/67 Pulse Oximetry 100 99 02/01/18 21:45 02/01/18 22:00 02/01/18 22:15 Temperature Pulse Rate 66 67 65 Respiratory Rate 15 14 16 Blood Pressure 105/64 104/62 107/68 Pulse Oximetry 98 98 100 02/01/18 22:30 02/01/18 22:45 02/01/18 23:00 Temperature Pulse Rate 65 64 61 Respiratory Rate 15 15 18 Blood Pressure 108/70 106/67 109/69 Pulse Oximetry 100 100 100 02/01/18 23:15 02/01/18 23:30 02/01/18 23:45 Temperature Pulse Rate 62 62 61 Respiratory Rate 14 15 15 Blood Pressure 109/68 108/69 108/72 Pulse Oximetry 100 100 100 02/02/18 00:00 02/02/18 00:15 02/02/18 00:30 Temperature 96.5 F L Pulse Rate 71 61 61 Respiratory Rate 15 14 15 Blood Pressure 111/74 111/74 111/75 Pulse Oximetry 100 100 100 02/02/18 00:45 02/02/18 00:50 02/02/18 01:00 Temperature Pulse Rate 61 63 Respiratory Rate 14 18 21 Blood Pressure 112/77 Pulse Oximetry 100 100 100 02/02/18 01:01 02/02/18 01:15 02/02/18 01:30 Temperature Pulse Rate 71 61 62 Respiratory Rate 24 15 22 Blood Pressure 110/73 111/72 107/71 Pulse Oximetry 100 100 100 02/02/18 01:45 02/02/18 02:00 02/02/18 02:15 Temperature Pulse Rate 61 60 62 Respiratory Rate 18 17 18 Blood Pressure 110/75 110/76 112/75 Pulse Oximetry 100 100 100 02/02/18 02:30 02/02/18 02:45 02/02/18 03:00 Temperature Pulse Rate 62 61 62 Respiratory Rate 15 18 15 Blood Pressure 110/75 112/76 111/77 Pulse Oximetry 100 100 100 02/02/18 03:15 02/02/18 03:29 02/02/18 03:30 Temperature Pulse Rate 62 62 62 Respiratory Rate 19 14 14 Blood Pressure 112/75 110/73 Pulse Oximetry 100 100 02/02/18 03:45 02/02/18 04:00 02/02/18 04:15 Temperature Pulse Rate 64 64 65 Respiratory Rate 17 16 15 Blood Pressure 112/74 112/72 112/72 Pulse Oximetry 100 100 100 02/02/18 04:17 02/02/18 04:27 02/02/18 04:30 Temperature 97.5 F L Pulse Rate 66 Respiratory Rate 19 15 Blood Pressure 109/70 Pulse Oximetry 100 100 02/02/18 04:45 02/02/18 05:00 02/02/18 05:09 Temperature Pulse Rate 83 65 67 Respiratory Rate 28 H 23 20 Blood Pressure 115/73 76/50 L 104/60 Pulse Oximetry 96 85 L 100 02/02/18 05:15 02/02/18 05:30 02/02/18 05:45 Temperature Pulse Rate 64 66 65 Respiratory Rate 19 18 17 Blood Pressure 104/60 106/62 106/64 Pulse Oximetry 99 99 98 02/02/18 06:00 02/02/18 06:15 02/02/18 06:30 Temperature Pulse Rate 65 65 64 Respiratory Rate 17 17 17 Blood Pressure 109/64 107/65 110/67 Pulse Oximetry 100 100 100 02/02/18 07:00 02/02/18 08:00 02/02/18 08:13 Temperature 97.8 F Pulse Rate 63 63 62 Respiratory Rate 17 15 17 Blood Pressure 106/68 106/72 Pulse Oximetry 100 100 02/02/18 08:14 02/02/18 09:00 02/02/18 10:00 Temperature Pulse Rate 65 65 Respiratory Rate 16 15 13 Blood Pressure 106/64 105/68 Pulse Oximetry 100 92 L 98 02/02/18 11:00 02/02/18 11:45 02/02/18 12:00 Temperature 97.9 F Pulse Rate 66 67 Respiratory Rate 14 13 16 Blood Pressure 113/65 116/65 Pulse Oximetry 97 97 95 02/02/18 13:00 02/02/18 14:00 02/02/18 14:15 Temperature Pulse Rate 67 64 69 Respiratory Rate 14 27 H 16 Blood Pressure 104/59 L 116/64 94/61 L Pulse Oximetry 98 96 96 02/02/18 14:30 02/02/18 14:45 02/02/18 15:00 Temperature Pulse Rate 72 69 70 Respiratory Rate 15 14 14 Blood Pressure 96/61 L 93/60 L 91/55 L Pulse Oximetry 98 98 98 02/02/18 15:15 02/02/18 15:30 02/02/18 15:45 Temperature Pulse Rate 70 74 74 Respiratory Rate 14 19 22 Blood Pressure 93/55 L 92/57 L 94/60 L Pulse Oximetry 98 98 99 02/02/18 16:00 02/02/18 16:13 02/02/18 16:15 Temperature 97.7 F Pulse Rate 70 71 Respiratory Rate 17 16 16 Blood Pressure 94/57 L 93/56 L Pulse Oximetry 100 100 100 02/02/18 16:30 02/02/18 16:45 02/02/18 17:00 Temperature Pulse Rate 71 71 70 Respiratory Rate 13 13 13 Blood Pressure 96/58 L 91/58 L 94/56 L Pulse Oximetry 100 100 100 02/02/18 17:15 02/02/18 17:30 02/02/18 17:45 Temperature Pulse Rate 70 69 69 Respiratory Rate 13 13 13 Blood Pressure 92/55 L 94/53 L 92/54 L Pulse Oximetry 100 100 100 02/02/18 18:00 02/02/18 18:15 02/02/18 18:30 Temperature Pulse Rate 69 69 70 Respiratory Rate 13 15 16 Blood Pressure 94/55 L 93/56 L 90/56 L Pulse Oximetry 100 100 100 02/02/18 18:45 02/02/18 19:00 02/02/18 19:15 Temperature Pulse Rate 69 69 70 Respiratory Rate 18 16 17 Blood Pressure 93/56 L 91/57 L 93/56 L Pulse Oximetry 100 100 100 02/02/18 19:30 02/02/18 19:45 02/02/18 20:00 Temperature Pulse Rate 69 70 72 Respiratory Rate 17 19 18 Blood Pressure 94/57 L 92/58 L 98/60 L Pulse Oximetry 100 100 100 02/02/18 20:04 02/02/18 20:15 Temperature 97.5 F L Pulse Rate 72 72 Respiratory Rate 19 19 Blood Pressure 96/58 L Pulse Oximetry 100 Intake & Output 02/02/18 02/02/18 02/03/18 06:59 18:59 06:59 Intake Total 1069.3 / 1069.3 2357.6 / 2357.6 610.2 / 610.2 Output Total 1150 / 1150 1750 / 1750 Balance -80.7 / -80.7 607.6 / 607.6 610.2 / 610.2 Weight 83.5 kg Intake: IV 675.3 / 675.3 1613.6 / 1613.6 610.2 / 610.2 Precedex Inj 1,000 MCG In NS 250 / 250 500 / 500 Inj 240 ML @ 0.2 MCG/KG/HR 4.17 mls/hr IV.CONT TITRATE PRN Rx# :[id number] Heparin/D5W 25,000 U/250 mL 25, 250 / 250 000 unit In 250 ml @ Per Protocol IV.CONT TITRATE PRN Rx #:[id number] Versed Inj 50 mg In 50 ml @ 2 50 / 50 50 / 50 50 / 50 MG/HR 2 mls/hr IV.CONT TITRATE PRN Rx#:[id number] Magnesium Sulfate Inj 4 GM In 108 / 108 D5W Inj 100 ML @ 25 mls/hr IV. SIG ONCE ONE Rx#:[id number] MVI-12 Inj 10 ML Folvite Inj 1 510.2 / 510.2 MG In NS Inj 500 ML @ 125 mls/ hr IV.SIG DAILY GERMAINE Rx#: [id number] Zosyn 2.25 GM Premix 50 ML @ 100 / 100 50 / 50 50 / 50 100 mls/hr IV.SIG Q8H GERMAINE Rx#: [id number] KCl 40 mEq Premix Inj 40 meq In 200 / 200 100 ml @ 25 mls/hr IV.SIG Q4H GERMAINE Rx#:[id number] KCl Inj 40 MEQ In D5W Inj 100 120 / 120 ML @ 25 mls/hr IV.SIG Q4H GERMAINE Rx#:[id number] Thiamine Inj 30 MG In NS Inj 50 50.3 / 50.3 100.6 / 100.6 ML @ 201.2 mls/hr IV.SIG Q8H GERMAINE Rx#:[id number] fentaNYL 10 mcg/mL Premix Drip 250 / 250 2,500 mcg In 250 ml @ 50 MCG/HR 5 mls/hr IV.SIG TITRATE PRN Rx #:[id number] Keppra Inj 500 MG In NS Inj 100 105 / 105 105 / 105 ML @ 400 mls/hr IV.SIG Q12H GERMAINE Rx#:[id number] Tube Feeding 314 / 314 344 / 344 Tube Irrigant 80 / 80 Water Bolus Amount 400 / 400 Output: Urine Amount (Catheter) 1150 / 1150 1750 / 1750 Coude 1150 / 1150 1750 / 1750 Other: Date of Last Bowel Movement 02/01/18 02/01/18 02/01/18 # Bowel Movements 0 - Urinary Catheter Management Coude Cath placed during this visit: no <Tj Ruby - Last Filed: 02/02/18 21:37> Assessment and Plan - Assessment (1) Acute kidney failure Code(s): N17.9 - Acute kidney failure, unspecified Status: Acute Plan: Most likely suffered ATN. Creatinine is improving. His fluid status is still positive. Blood pressure better. Limit IV infusions. Slightly hypernatremia is noted, give a dose of Diuril. Add free water to tube feeding. Repeat labs daily. Continue to replace potassium as needed. Avoid nephrotoxic agents. (2) Hypokalemia Code(s): E87.6 - Hypokalemia Status: Acute Plan: Continue to replace carefully. Most likely due to total body depletion, in addition to cooling/warming which shifts potassium intracellularly. (3) Cardiomyopathy Code(s): I42.9 - Cardiomyopathy, unspecified Status: Acute Plan: Troponin is high, cardiology following. Alcohol induced cardiomyopathy is a possibility. He also had CPR. Also could be secondary to chronic hypokalemia. Agree with thiamine infusion. (4) Acid-base imbalance Code(s): E87.4 - Mixed disorder of acid-base balance Status: Acute Plan: Improving. Management per director engineering. <Laura Petit - Last Filed: 02/02/18 11:05> - Assessment (1) Acute kidney failure Code(s): N17.9 - Acute kidney failure, unspecified Status: Acute (2) Hypokalemia Code(s): E87.6 - Hypokalemia Status: Acute (3) Cardiomyopathy Code(s): I42.9 - Cardiomyopathy, unspecified Status: Acute (4) Acid-base imbalance Code(s): E87.4 - Mixed disorder of acid-base balance Status: Acute - Attending Attestation patient was seen and examined. Renal function is slowly improving. Discussed with patient's mother. Continue to replace potassium. Metabolic alkalosis has resolved. <Tj Ruby - Last Filed: 02/02/18 21:37>
[2018-02-02] MEDS ORDERED: Chlorothiazide Inj 500 MG Vial IV.PUSH ONE (11:30)
[2018-02-02] MEDS ORDERED: Vancomycin Inj 1,250 MG in Sodium Chlor 0.9% Inj 250 ML IV.SIG ONE (12:00)
--- NOTE | 2018-02-02 13:30 | MB ---
cc: Brian Collado MD DATE: 02/02/2018 REQUESTING PHYSICIAN: Dr. Cee. REASON FOR CONSULTATION: Gram-positive cocci in blood. HISTORY OF PRESENT ILLNESS: This is a 32-year-old white male who presented to the emergency department with 2-day history of nausea, vomiting, and diarrhea. The patient ended up intubated after he went into ventricular fibrillation cardiac arrest and was resuscitated. He also was noted to have seizure activity. He does have a history of seizure disorder and reportedly noncompliance with medication. The patient is currently intubated and on the ventilator. He was on pressors at one point and that was discontinued. He also had decreased kidney function and his urine output has improved. The patient was noted to have been in shock and was on vasopressin. Currently awakens on the ventilator sternal rub and opens his eyes when asked to do so, although his response is very slow. No other meaningful activity is noted. The patient had elevated white blood cell count of 24.9 on 01/28/2018. Earlier in the day it was 8.2 and it quickly was up to 24.9, and the following day started decreasing and normalized on 02/01/2018. Blood cultures were taken on 01/28/2018 and / bottles came back showing coagulase-negative staphylococcus. Repeated blood cultures on 01/31/2018 showing gram-positive cocci in 1 aerobic bottle of 4. Urine culture from 01/30/2018 has no growth. Sputum culture on admission had no growth. Influenza test was negative. Urine legionella test was negative. The patient has had low potassium. His current estimated GFR is 16. He is currently in normal sinus rhythm. Chest x-ray showing diffuse left lung airspace consolidation with bibasilar opacities, likely representing atelectasis and possible small effusions per radiology reading. The patient is currently on CPAP. PAST MEDICAL HISTORY: Alcohol abuse, gastroesophageal reflux disease, hernia, depression, pancreatitis, seizure disorder, left inguinal hernia repair. ALLERGIES: SULFA. MEDICATIONS: 1. Aspirin. 2. Dexmedetomidine. 3. Lactulose. 4. Levetiracetam. 5. Magnesium sulfate. 6. Multivitamin. 7. Protonix. 8. Piperacillin/tazobactam. 9. Potassium chloride. 10. Vancomycin. 11. Thiamine. SOCIAL HISTORY: The patient is a former smoker. Positive alcohol use. FAMILY HISTORY: Unable to obtain. REVIEW OF SYSTEMS: Unable to obtain. REVIEW OF SYSTEMS: Unable to obtain because the patient is on the ventilator and intubated. PHYSICAL EXAMINATION: GENERAL: This is a well-developed male who is on the ventilator. He awakens to sternal rub and opens eyes to commands. No other meaningful response. HEENT: Unable to fully assess because of intubated. Pupils are equal and reactive. No icterus. Oropharynx intubated. NECK: No adenopathy or swelling. LUNGS: Decreased breath sounds bilaterally. No significant rhonchi. HEART: Regular S1 and S2. No murmurs heard. ABDOMEN: Bowel sounds diminished. Soft. No tenderness appreciated on palpation. RECTAL: Not performed. EXTREMITIES: No clubbing, cyanosis; 2+ edema of the hands. SKIN: No diffuse rash. NEUROLOGIC: Unable to fully assess. PSYCHIATRIC: Unable to fully assess. LABORATORY DATA: WBC 6.5, platelets 135, hemoglobin 9.1, creatinine 4.39, BUN 41, sodium 146; estimated GFR 16, AST 56, ALT 30, alkaline phosphatase 169, total bilirubin 0.9. Urinalysis on 01/30/2018 showed 14 white cells; however, urine culture had no growth in 48 hours. IMPRESSION: 1. Gram-positive cocci in 1/4 bottles of blood cultures on 12/28/2017 and 01/31/2018 and patient was admitted with nausea, vomiting and diarrhea. No fevers since admission. The white blood cell count was elevated at one point, but it is now down to normal. Urine culture was unremarkable and chest x-ray has left lung airspace consolidation. The positive blood culture reflecting likely contamination in this patient. I do not think we need to treat for Staphylococcus bacteremia or Staphylococcus sepsis. I will discontinue the vancomycin. I will monitor his clinical status of the patient. 2. Chest x-ray airspace consolidation in the left lung. This could be due to aspiration. I will continue to treat with piperacillin/tazobactam for pulmonary coverage. 3. Status post cardiac arrest. 4. Acute respiratory failure. 5. Acute renal failure. 6. Seizure disorder. RECOMMENDATIONS: 1. Discontinue vancomycin, which was ordered. 2. Continue piperacillin/tazobactam. 3. Follow the blood culture final identity. If it is Staph-coagulase negative, then I suspect it is contamination. Repeat blood culture can also be performed if it is felt necessary to further confirm possibility of true infection. However, my opinion is that it is not necessary to repeat the blood cultures unless he has elevated temperature or the white count increases again. He does have kidney dysfunction and vancomycin could further worsen that. Thank you for this consultation. I will follow the patient's progress along with you and will make further recommendations if necessary. MD JOSELYN Mccurdy/meche/ll , 11:27 AM , 11:47 AM
[2018-02-02] MEDS: Heparin Drip 25,000 UNIT/250 ML BAG IV.CONT PRN (16:34)
[2018-02-02 19:10] LABS: Calcium 7.5 mg/dL (8.5-10.1); Carbon Dioxide 22.3 meq/L (21.0-32.0); Potassium 3.3 meq/L (3.5-5.1)
[2018-02-03] MEDS: fentaNYL 10 mcg/mL Premix Drip 2,500 MCG/250 ML BAG IV.SIG PRN ×3 (00:05→21:39)
[2018-02-03] MEDS: Insulin NovoLOG Aspart Correctional Sugar Inj SQ SCH ×6 (00:28→20:16)
[2018-02-03] MEDS: Oral Hygiene Kit OROPHARYNG SCH ×4 (00:43→15:56)
[2018-02-03] MEDS: SODIUM CHLOR 0.9% IV.SIG SCH ×3 (01:06→17:15)
[2018-02-03] MEDS: THIAMINE IV.SIG SCH ×3 (01:06→17:15)
[2018-02-03] MEDS: Midazolam 50 MG/50 ML Inj 50 MG/50 ML BAG IV.CONT PRN ×5 (01:46→22:43)
[2018-02-03] MEDS: Dexmedetomidine Inj 1,000 MCG in Sodium Chlor 0.9% Inj 240 ML IV.CONT PRN ×3 (02:30→20:17)
[2018-02-03 04:46] LABS: Hematocrit 26.8 % (39.0-51.0); Hemoglobin 9.2 gm/dL (13.0-17.0); Mean Corpuscular HGB Conc 34.5 % (32.0-36.0); Mean Corpuscular Hemoglobin 36.1 pg (27.0-34.0); Mean Corpuscular Volume 104.7 fL (80.0-100.0); Mean Platelet Volume 8.2 fL (7.0-11.0); Platelet Count 162 th/mm3 (150-450); Red Blood Count 2.56 mil/mm3 (4.50-5.90); Red Cell Distribution Width 15.6 % (11.6-17.2); White Blood Count 5.4 th/mm3 (4.0-11.0)
[2018-02-03] MEDS: Dextrose 5% in Water Inj 1,000 ML IV.SIG SCH (04:59)
[2018-02-03] MEDS: Piperacil/Tazo 2.25 GM Premix 50 ML IV.SIG SCH ×3 (05:03→20:14)
[2018-02-03 05:15] LABS: Albumin 1.5 g/dL (3.4-5.0); Calcium 7.4 mg/dL (8.5-10.1); Carbon Dioxide 25.2 meq/L (21.0-32.0); Magnesium 1.7 mg/dL (1.5-2.5); Phosphorus 1.2 mg/dL (2.5-4.9); Potassium 3.1 meq/L (3.5-5.1); Total Protein 5.3 g/dL (6.4-8.2)
[2018-02-03] MEDS: Potassium Chlor 40 mEq Premix 40 MEQ/100 ML PIGGYBACK IV.SIG SCH ×2 (06:33→10:37)
[2018-02-03] MEDS: Chlorhexidine 0.12% Oral Kit 15 ML UDC OROPHARYNG SCH ×2 (08:23→20:17)
[2018-02-03] MEDS: Senna/Docusate Sodium 8.6/50 MG Tablet PO SCH ×2 (08:32→20:14)
[2018-02-03] MEDS: Aspirin 325 MG Tablet PO SCH (08:32)
[2018-02-03] MEDS: Multivitamin Inj 10 ML, Folic Acid Inj 1 MG in Sodium Chlor 0.9% Inj 500 ML IV.SIG SCH (08:32)
[2018-02-03] MEDS: Pantoprazole Inj 40 MG Vial IV.PUSH SCH (08:33)
[2018-02-03] MEDS ORDERED: Potassium Chlor 40 mEq Premix 40 MEQ/100 ML PIGGYBACK IV.SIG SCH (11:15)
[2018-02-03] MEDS ORDERED: Magnesium Sulfate Inj 4 GM in Sodium Chlor 0.9% Inj 92 ML IV.SIG ONE (12:00)
[2018-02-03] MEDS ORDERED: Potassium Phosphate Inj 30 MMOL in Sodium Chlor 0.9% Inj 250 ML IV.SIG ONE (12:30)
[2018-02-03] MEDS: Heparin Drip 25,000 UNIT/250 ML BAG IV.CONT PRN (14:23)
--- NOTE | 2018-02-03 15:19 | P.PNCC ---
Subjective Subjective Remarks/Hospital Course: Hospital Course: This is a 32-year-old male. Admission 01/28/2018. Past medical history includes seizure disorder/noncompliant with levetiracetam, previous EtOH sober for 4 weeks, anorexia, gastroesophageal reflux disease and chronic pancreatitis. Patient presented to [facility] 01/28/2018 with a two-day history of nausea vomiting and diarrhea. Patient's mother/discussed at bedside stated she had just had a "stomach flu" which she has currently recovered. Mom states that the patient has become fairly dehydrated is been having some cramping of his hands. She is worried that he is getting dehydrated and his potassium might begin low. He was unable to tolerate a banana so she gave him some potassium pills p.o. which she also did not tolerate and threw up. Sober 4 weeks according to mother. Patient was noted to have a low potassium at 2.0. Creatinine of 4.0. This is in line with his previous hospitalizations for acute dehydration. Lipase was slightly elevated. Patient does have a history of seizure disorder which is not compliant with levetiracetam. ED physician was called into room because the RN believed he had a seizure. Patient was unresponsive. Mother states this was not like any seizure that she had seen. Pulses not palpable therefore CPR was initiated. Initial rhythm was V. fib. Patient received amiodarone, lidocaine, epinephrine, bicarbonate, magnesium during the 35 minute code with return of spontaneous circulation after 35 minutes. Pupils are about 9 mils bilaterally and 6. When I saw the patient patient was actively thrashing moving all 4 extremities spontaneously but not to command. Pupils are round 8 mm bilaterally and nonreactive. Brain CT revealed no acute findings. CT thorax revealed a left upper and lower lobe. CT abdomen pelvis pending at time of dictation. Likely, troponin pending. EKG revealed incomplete right bundle block with ST depression in the inferior and lateral leads. Cardiology consulted. They will evaluate after stat echocardiogram and troponins been completed. Potassium will be replaced pending BMP Subjective: 01/29: persistently in shock. following commands this AM. trop uptrended overnight and now > 40. on levo @ 10, vasopressin. bedside echo with persistence of his global severe LV systolic dysfunction. IVC dilated without respiratory variation. initially attempted therapeutic hypothermia, but became arrhythmogenic and neurologic exam improved and now following commands, so hypothermia aborted. persistently hypokalemic and hypophosphatemic this AM. in addition, remains with severe metabolic alkalosis. 01/30: Troponin trending down, continues to have severe hypokalemia and metabolic alkalosis. Creatinine continues to trend up, only produced 200 cc of urine over the past 24 hours. 01/31: Patient seen by nephrology yesterday and given bumex, urine output dramatically increased, potassium improved with aggressive repletion, pressors now off and dobutamine at 5. 02/01: No issues overnight. Patient tolerated dobutamine at 2 yesterday, discontinued this morning. Switching propofol to precedex and would like to start SBTs today. Overall improved. 02/02: Tolerated switch to precedex yesterday and was on bipap 05/06 for several hours yesterday afternoon, placed back on AC overnight to avoid respiratory fatigue. 02/03: Patient had no overnight events, tolerated SBT x 5 hours yesterday. Significantly agitated this morning during sedation vacation. Objective Vital Signs / I&O: Vital Signs 02/02/18 15:15 02/02/18 15:30 02/02/18 15:45 Temperature Pulse Rate 70 74 74 Respiratory Rate 14 19 22 Blood Pressure 93/55 L 92/57 L 94/60 L Pulse Oximetry 98 98 99 02/02/18 16:00 02/02/18 16:13 02/02/18 16:15 Temperature 97.7 F Pulse Rate 70 71 Respiratory Rate 17 16 16 Blood Pressure 94/57 L 93/56 L Pulse Oximetry 100 100 100 02/02/18 16:30 02/02/18 16:45 02/02/18 17:00 Temperature Pulse Rate 71 71 70 Respiratory Rate 13 13 13 Blood Pressure 96/58 L 91/58 L 94/56 L Pulse Oximetry 100 100 100 02/02/18 17:15 02/02/18 17:30 02/02/18 17:45 Temperature Pulse Rate 70 69 69 Respiratory Rate 13 13 13 Blood Pressure 92/55 L 94/53 L 92/54 L Pulse Oximetry 100 100 100 02/02/18 18:00 02/02/18 18:15 02/02/18 18:30 Temperature Pulse Rate 69 69 70 Respiratory Rate 13 15 16 Blood Pressure 94/55 L 93/56 L 90/56 L Pulse Oximetry 100 100 100 02/02/18 18:45 02/02/18 19:00 02/02/18 19:15 Temperature Pulse Rate 69 69 70 Respiratory Rate 18 16 17 Blood Pressure 93/56 L 91/57 L 93/56 L Pulse Oximetry 100 100 100 02/02/18 19:30 02/02/18 19:45 02/02/18 20:00 Temperature Pulse Rate 69 70 72 Respiratory Rate 17 19 18 Blood Pressure 94/57 L 92/58 L 98/60 L Pulse Oximetry 100 100 100 02/02/18 20:04 02/02/18 20:08 02/02/18 20:15 Temperature 97.5 F L Pulse Rate 72 72 Respiratory Rate 19 23 19 Blood Pressure 96/58 L Pulse Oximetry 96 100 02/02/18 20:30 02/02/18 20:45 02/02/18 21:00 Temperature Pulse Rate 75 75 74 Respiratory Rate 17 16 18 Blood Pressure 93/56 L 95/57 L 97/57 L Pulse Oximetry 100 100 99 02/02/18 21:15 02/02/18 21:30 02/02/18 21:45 Temperature Pulse Rate 77 76 76 Respiratory Rate 18 16 19 Blood Pressure 93/57 L 95/56 L 94/56 L Pulse Oximetry 99 99 99 02/02/18 22:00 02/02/18 22:15 02/02/18 22:30 Temperature Pulse Rate 73 75 75 Respiratory Rate 18 17 16 Blood Pressure 96/56 L 93/56 L 90/54 L Pulse Oximetry 99 99 99 02/02/18 22:45 02/02/18 23:00 02/02/18 23:15 Temperature Pulse Rate 74 74 74 Respiratory Rate 18 17 19 Blood Pressure 94/55 L 95/55 L 92/55 L Pulse Oximetry 99 99 99 02/02/18 23:30 02/02/18 23:45 02/03/18 00:00 Temperature 98.3 F Pulse Rate 72 72 72 Respiratory Rate 21 23 19 Blood Pressure 93/53 L 95/55 L 97/55 L Pulse Oximetry 99 99 100 02/03/18 00:15 02/03/18 00:30 02/03/18 00:45 Temperature Pulse Rate 72 73 73 Respiratory Rate 19 19 18 Blood Pressure 94/54 L 95/55 L 94/54 L Pulse Oximetry 100 100 100 02/03/18 01:00 02/03/18 01:15 02/03/18 01:30 Temperature Pulse Rate 73 73 74 Respiratory Rate 17 17 19 Blood Pressure 92/52 L 95/53 L 93/52 L Pulse Oximetry 100 100 99 02/03/18 01:45 02/03/18 02:00 02/03/18 02:15 Temperature Pulse Rate 74 73 74 Respiratory Rate 19 20 17 Blood Pressure 94/53 L 95/53 L 95/55 L Pulse Oximetry 100 99 99 02/03/18 02:30 02/03/18 02:45 02/03/18 03:00 Temperature Pulse Rate 74 74 81 Respiratory Rate 19 16 19 Blood Pressure 94/55 L 95/55 L 103/55 L Pulse Oximetry 99 99 02/03/18 03:15 02/03/18 03:30 02/03/18 03:45 Temperature Pulse Rate 74 74 74 Respiratory Rate 12 12 12 Blood Pressure 93/50 L 91/52 L 91/52 L Pulse Oximetry 94 L 95 95 02/03/18 04:00 02/03/18 04:15 02/03/18 04:30 Temperature 98.5 F Pulse Rate 73 72 72 Respiratory Rate 13 15 13 Blood Pressure 89/50 L 92/51 L 92/54 L Pulse Oximetry 96 100 100 02/03/18 04:45 02/03/18 05:00 02/03/18 05:15 Temperature Pulse Rate 71 72 71 Respiratory Rate 15 14 16 Blood Pressure 90/54 L 92/53 L 90/52 L Pulse Oximetry 100 100 100 02/03/18 05:30 02/03/18 05:45 02/03/18 06:00 Temperature Pulse Rate 71 71 72 Respiratory Rate 17 14 18 Blood Pressure 91/53 L 88/51 L 87/50 L Pulse Oximetry 100 100 100 02/03/18 07:00 02/03/18 08:00 02/03/18 08:51 Temperature 98.2 F Pulse Rate 73 73 Respiratory Rate 17 17 17 Blood Pressure 97/54 L 96/54 L Pulse Oximetry 100 100 100 02/03/18 09:00 02/03/18 10:00 02/03/18 11:00 Temperature Pulse Rate 71 77 76 Respiratory Rate 17 17 17 Blood Pressure 88/48 L 94/49 L 108/60 Pulse Oximetry 100 81 L 100 02/03/18 12:00 02/03/18 12:45 02/03/18 13:00 Temperature 98.8 F Pulse Rate 79 94 H Respiratory Rate 16 19 25 H Blood Pressure 104/55 L 107/51 L Pulse Oximetry 98 97 97 02/03/18 14:00 02/03/18 15:00 Temperature Pulse Rate 74 71 Respiratory Rate 17 17 Blood Pressure 97/54 L 91/48 L Pulse Oximetry 96 96 Intake & Output 02/02/18 02/03/18 02/03/18 18:59 06:59 18:59 Intake Total 2357.6 / 2357.6 2250.5 / 2250.5 1205.3 / 1205.3 Output Total 1750 / 1750 1350 / 1350 Balance 607.6 / 607.6 900.5 / 900.5 1205.3 / 1205.3 Weight 83.5 kg Intake: IV 1613.6 / 1613.6 1415.5 / 1415.5 1205.3 / 1205.3 Precedex Inj 1,000 MCG In NS 500 / 500 250 / 250 250 / 250 Inj 240 ML @ 0.2 MCG/KG/HR 4.17 mls/hr IV.CONT TITRATE PRN Rx# :[id number] Heparin/D5W 25,000 U/250 mL 25, 250 / 250 250 / 250 000 unit In 250 ml @ Per Protocol IV.CONT TITRATE PRN Rx #:[id number] Versed Inj 50 mg In 50 ml @ 2 50 / 50 150 / 150 50 / 50 MG/HR 2 mls/hr IV.CONT TITRATE PRN Rx#:[id number] Magnesium Sulfate Inj 4 GM In 108 / 108 D5W Inj 100 ML @ 25 mls/hr IV. SIG ONCE ONE Rx#:[id number] MVI-12 Inj 10 ML Folvite Inj 1 510.2 / 510.2 MG In NS Inj 500 ML @ 125 mls/ hr IV.SIG DAILY GERMAINE Rx#: [id number] Zosyn 2.25 GM Premix 50 ML @ 50 / 50 100 / 100 50 / 50 100 mls/hr IV.SIG Q8H GERMAINE Rx#: [id number] KCl 40 mEq Premix Inj 40 meq In 200 / 200 200 / 200 100 ml @ 25 mls/hr IV.SIG Q4H GERMAINE Rx#:[id number] Thiamine Inj 30 MG In NS Inj 50 100.6 / 100.6 50.3 / 50.3 50.3 / 50.3 ML @ 201.2 mls/hr IV.SIG Q8H [facility] Rx#:[id number] fentaNYL 10 mcg/mL Premix Drip 250 / 250 250 / 250 250 / 250 2,500 mcg In 250 ml @ 50 MCG/HR 5 mls/hr IV.SIG TITRATE PRN Rx #:[id number] Keppra Inj 500 MG In NS Inj 100 105 / 105 105 / 105 105 / 105 ML @ 400 mls/hr IV.SIG Q12H [facility] Rx#:[id number] Tube Feeding 344 / 344 355 / 355 Tube Irrigant 80 / 80 Water Bolus Amount 400 / 400 400 / 400 Output: Urine Amount (Catheter) 1750 / 1750 1350 / 1350 Coude 1750 / 1750 1350 / 1350 Other: Date of Last Bowel Movement 02/01/18 02/03/18 02/03/18 # Bowel Movements 0 1 Result Diagrams: 02/03/18 04:40 02/03/18 04:40 Objective Remarks: GENERAL: Intubated and sedated HEENT: NCAT, ETT present NECK: Trachea midline CHEST: Mechanical breath sounds bilaterally. Subclavian TLC on right. CARDIOVASCULAR: Regular rate and rhythm ABDOMEN: Soft, non-tender in all quadrants, non-distended MUSCULOSKELETAL: Warm and well perfused, no peripheral edema NEUROLOGICAL: RASS -2, no current agitation Assessment and Plan - Assessment and Plan Plan: Assessment: 32-year-old male with history of EtOH abuse and chronic pancreatitis who presents with severe hypokalemia, dehydration, and cardiac arrest; found to have significant cardiomyopathy/ cardiogenic shock and acute kidney injury. Neuro/Psych: Seizure disorder NOS History of EtOH sober 4 weeks History of anorexia/bulimia Sedated on precedex, fentanyl, and versed; will need to wean slowly as patient became combative and agitated this morning Goal of RASS 0 to -1 Continue keppra 500 BID (home dose) Continue holding quetiapine 50 mg 3 times daily/home medication Patient has a previous history of heavy EtOH abuse and bulimia as per mother-- continue thiamine/ folate supplementation Delirium precautions- lights on/ shades up during the day, limit nighttime disruptions, frequent reorientation to environment CV: In-hospital cardiac arrest V. fib arrest Cardiogenic Shock-- resolved Severe LV systolic dysfunction Plan is still for cardiac perfusion study when creatinine improves Off ionotropes and pressors x several days Echo 01/28: severe LV systolic dysfunction, EF 20-25%. mildly depressed RV function. no valvular lesions. Continue heparin drip, ASA daily Continued empiric supplementation for ? beriberi Resp: Acute hypoxic respiratory failure Left upper/lower lobe pulmonary infiltrates-- improving Ventilator bundle Albuterol/ipratropium aerosols every 4 hours with albuterol nebs q2 PRN Chest PT, pulmonary hygiene Daily SBTs GI: Elevated lipase/mild pancreatitis Left hepatic pneumobilia history of chronic pancreatitis Suplena @ 25 mL/hr, goal 50 Pantoprazole for GI prophylaxis Docusate serum/senna 1 tablet twice daily for bowel regimen CT abdomen/pelvis revealed mild pancreatitis. There was a small amount of hepatic gas seen on CT scan (likely pneumobilia, cannot exclude portal venous gas) but RUQ US showed no acute pathology. Renal/ : Acute kidney injury-- improving D/C Nance catheter in favor of [place] cath Creatinine peaked around 6, continues to improve, now 3.1. Urine output 1.5 cc/ kg/hr Continue to diurese as tolerated Nephrology recommendations appreciated Endo: Sliding scale insulin with Accu-Cheks to maintain euglycemia aspart insulin every 6 hours, IV dextrose as needed for hypoglycemia Heme: Leukocytosis Macrocytic anemia Mild coagulopathy Monitor CBC daily. Follow trends. ID: Blood cultures on 01/28 and 01/31 showed coagulase negative staph hominis, ? contamination Sputum, UA and influenza all NGTD Continue zosyn for pulmonary infiltrates CXR tomorrow ID consult appreciated FEN: severe life-threatening Hypokalemia severe life-threatening hypophosphatemia severe metabolic alkalosis Patient continues to require aggressive electrolyte repletion. Continue to check lytes q12h. MSK: PT evaluate and treat Access: - 01/29 right radial art line - 01/29 right SC TLC with CVP monitoring-- Mom consented for PICC line, D/C TLC once placed - Nance- discontinue today Prophylaxis -GI-pantoprazole -DVT SCD/heparin gtt Counseling/ Coordination of Care: Total critical care time: 42 minutes. This includes examining the patient, gathering history from someone other than the patient (i.e., chart review), discussing the patient's care with other providers, managing the patient's blood pressure and ventilator settings, ordering and interpreting laboratory studies, managing the patient's pain and sedation requirements, re-evaluation at frequent intervals, and documentation. All critical care time is separate and exclusive of procedures, teaching, and patient/ family updates.
--- NOTE | 2018-02-03 16:36 | P.PNID ---
Subjective Remarks: Patient is sedated on the ventilator. Afebrile. No distress. White blood cell count remains normal. This is a 32-year-old white male who presented to the emergency department with 2-day history of nausea, vomiting, and diarrhea. The patient ended up intubated after he went into ventricular fibrillation cardiac arrest and was resuscitated. He also was noted to have seizure activity. Past Medical History: PAST MEDICAL HISTORY: Alcohol abuse, gastroesophageal reflux disease, hernia, depression, pancreatitis, seizure disorder, left inguinal hernia repair. Allergies/Adverse Reactions: Allergies Sulfa (Sulfonamide Antibiotics) Allergy (Severe, Verified 10/11/17 07:56) hives Objective Vital Signs 02/02/18 16:45 02/02/18 17:00 02/02/18 17:15 Temperature Pulse Rate 71 70 70 Respiratory Rate 13 13 13 Blood Pressure 91/58 L 94/56 L 92/55 L Pulse Oximetry 100 100 100 02/02/18 17:30 02/02/18 17:45 02/02/18 18:00 Temperature Pulse Rate 69 69 69 Respiratory Rate 13 13 13 Blood Pressure 94/53 L 92/54 L 94/55 L Pulse Oximetry 100 100 100 02/02/18 18:15 02/02/18 18:30 02/02/18 18:45 Temperature Pulse Rate 69 70 69 Respiratory Rate 15 16 18 Blood Pressure 93/56 L 90/56 L 93/56 L Pulse Oximetry 100 100 100 02/02/18 19:00 02/02/18 19:15 02/02/18 19:30 Temperature Pulse Rate 69 70 69 Respiratory Rate 16 17 17 Blood Pressure 91/57 L 93/56 L 94/57 L Pulse Oximetry 100 100 100 02/02/18 19:45 02/02/18 20:00 02/02/18 20:04 Temperature Pulse Rate 70 72 72 Respiratory Rate 19 18 19 Blood Pressure 92/58 L 98/60 L Pulse Oximetry 100 100 02/02/18 20:08 02/02/18 20:15 02/02/18 20:30 Temperature 97.5 F L Pulse Rate 72 75 Respiratory Rate 23 19 17 Blood Pressure 96/58 L 93/56 L Pulse Oximetry 96 100 100 02/02/18 20:45 02/02/18 21:00 02/02/18 21:15 Temperature Pulse Rate 75 74 77 Respiratory Rate 16 18 18 Blood Pressure 95/57 L 97/57 L 93/57 L Pulse Oximetry 100 99 99 02/02/18 21:30 02/02/18 21:45 02/02/18 22:00 Temperature Pulse Rate 76 76 73 Respiratory Rate 16 19 18 Blood Pressure 95/56 L 94/56 L 96/56 L Pulse Oximetry 99 99 99 02/02/18 22:15 02/02/18 22:30 02/02/18 22:45 Temperature Pulse Rate 75 75 74 Respiratory Rate 17 16 18 Blood Pressure 93/56 L 90/54 L 94/55 L Pulse Oximetry 99 99 99 02/02/18 23:00 02/02/18 23:15 02/02/18 23:30 Temperature Pulse Rate 74 74 72 Respiratory Rate 17 19 21 Blood Pressure 95/55 L 92/55 L 93/53 L Pulse Oximetry 99 99 99 02/02/18 23:45 02/03/18 00:00 02/03/18 00:15 Temperature 98.3 F Pulse Rate 72 72 72 Respiratory Rate 23 19 19 Blood Pressure 95/55 L 97/55 L 94/54 L Pulse Oximetry 99 100 100 02/03/18 00:30 02/03/18 00:45 02/03/18 01:00 Temperature Pulse Rate 73 73 73 Respiratory Rate 19 18 17 Blood Pressure 95/55 L 94/54 L 92/52 L Pulse Oximetry 100 100 100 02/03/18 01:15 02/03/18 01:30 02/03/18 01:45 Temperature Pulse Rate 73 74 74 Respiratory Rate 17 19 19 Blood Pressure 95/53 L 93/52 L 94/53 L Pulse Oximetry 100 99 100 02/03/18 02:00 02/03/18 02:15 02/03/18 02:30 Temperature Pulse Rate 73 74 74 Respiratory Rate 20 17 19 Blood Pressure 95/53 L 95/55 L 94/55 L Pulse Oximetry 99 99 99 02/03/18 02:45 02/03/18 03:00 02/03/18 03:15 Temperature Pulse Rate 74 81 74 Respiratory Rate 16 19 12 Blood Pressure 95/55 L 103/55 L 93/50 L Pulse Oximetry 99 94 L 02/03/18 03:30 02/03/18 03:45 02/03/18 04:00 Temperature 98.5 F Pulse Rate 74 74 73 Respiratory Rate 12 12 13 Blood Pressure 91/52 L 91/52 L 89/50 L Pulse Oximetry 95 95 96 02/03/18 04:15 02/03/18 04:30 02/03/18 04:45 Temperature Pulse Rate 72 72 71 Respiratory Rate 15 13 15 Blood Pressure 92/51 L 92/54 L 90/54 L Pulse Oximetry 100 100 100 02/03/18 05:00 02/03/18 05:15 02/03/18 05:30 Temperature Pulse Rate 72 71 71 Respiratory Rate 14 16 17 Blood Pressure 92/53 L 90/52 L 91/53 L Pulse Oximetry 100 100 100 02/03/18 05:45 02/03/18 06:00 02/03/18 07:00 Temperature Pulse Rate 71 72 73 Respiratory Rate 14 18 17 Blood Pressure 88/51 L 87/50 L 97/54 L Pulse Oximetry 100 100 100 02/03/18 08:00 02/03/18 08:51 02/03/18 09:00 Temperature 98.2 F Pulse Rate 73 71 Respiratory Rate 17 17 17 Blood Pressure 96/54 L 88/48 L Pulse Oximetry 100 100 100 02/03/18 10:00 02/03/18 11:00 02/03/18 12:00 Temperature 98.8 F Pulse Rate 77 76 79 Respiratory Rate 17 17 16 Blood Pressure 94/49 L 108/60 104/55 L Pulse Oximetry 81 L 100 98 02/03/18 12:45 02/03/18 13:00 02/03/18 14:00 Temperature Pulse Rate 94 H 74 Respiratory Rate 19 25 H 17 Blood Pressure 107/51 L 97/54 L Pulse Oximetry 97 97 96 02/03/18 15:00 Temperature Pulse Rate 71 Respiratory Rate 17 Blood Pressure 91/48 L Pulse Oximetry 96 Intake & Output 02/02/18 02/03/18 02/03/18 18:59 06:59 18:59 Intake Total 2357.6 / 2357.6 2250.5 / 2250.5 1305.3 / 1305.3 Output Total 1750 / 1750 1350 / 1350 Balance 607.6 / 607.6 900.5 / 900.5 1305.3 / 1305.3 Weight 83.5 kg Intake: IV 1613.6 / 1613.6 1415.5 / 1415.5 1305.3 / 1305.3 Precedex Inj 1,000 MCG In NS 500 / 500 250 / 250 250 / 250 Inj 240 ML @ 0.2 MCG/KG/HR 4.17 mls/hr IV.CONT TITRATE PRN Rx# :[id number] Heparin/D5W 25,000 U/250 mL 25, 250 / 250 250 / 250 000 unit In 250 ml @ Per Protocol IV.CONT TITRATE PRN Rx #:[id number] Versed Inj 50 mg In 50 ml @ 2 50 / 50 150 / 150 50 / 50 MG/HR 2 mls/hr IV.CONT TITRATE PRN Rx#:[id number] Magnesium Sulfate Inj 4 GM In 108 / 108 D5W Inj 100 ML @ 25 mls/hr IV. SIG ONCE ONE Rx#:[id number] Magnesium Sulfate Inj 4 GM In 100 / 100 NS Inj 92 ML @ 25 mls/hr IV.SIG ONCE ONE Rx#:[id number] MVI-12 Inj 10 ML Folvite Inj 1 510.2 / 510.2 MG In NS Inj 500 ML @ 125 mls/ hr IV.SIG DAILY GERMAIEN Rx#: [id number] Zosyn 2.25 GM Premix 50 ML @ 50 / 50 100 / 100 50 / 50 100 mls/hr IV.SIG Q8H [facility] Rx#: [id number] KCl 40 mEq Premix Inj 40 meq In 200 / 200 200 / 200 100 ml @ 25 mls/hr IV.SIG Q4H [facility] Rx#:[id number] Thiamine Inj 30 MG In NS Inj 50 100.6 / 100.6 50.3 / 50.3 50.3 / 50.3 ML @ 201.2 mls/hr IV.SIG Q8H [facility] Rx#:[id number] fentaNYL 10 mcg/mL Premix Drip 250 / 250 250 / 250 250 / 250 2,500 mcg In 250 ml @ 50 MCG/HR 5 mls/hr IV.SIG TITRATE PRN Rx #:[id number] Keppra Inj 500 MG In NS Inj 100 105 / 105 105 / 105 105 / 105 ML @ 400 mls/hr IV.SIG Q12H [facility] Rx#:[id number] Tube Feeding 344 / 344 355 / 355 Tube Irrigant 80 / 80 Water Bolus Amount 400 / 400 400 / 400 Output: Urine Amount (Catheter) 1750 / 1750 1350 / 1350 Coude 1750 / 1750 1350 / 1350 Other: Date of Last Bowel Movement 02/01/18 02/03/18 02/03/18 # Bowel Movements 0 1 01/31/18 15:00 Blood - Peripheral Aerobic Blood Culture - Preliminary Staphylococcus coag negative 01/31/18 15:00 Blood - Peripheral Anaerobic Blood Culture - Preliminary No growth in 3 days 01/31/18 14:45 Blood - Peripheral Aerobic Blood Culture - Preliminary No growth in 3 days 01/31/18 14:45 Blood - Peripheral Anaerobic Blood Culture - Preliminary No growth in 3 days 01/28/18 17:55 Blood - Peripheral Aerobic Blood Culture - Final Staphylococcus hominis-hominis 01/28/18 17:55 Blood - Peripheral Anaerobic Blood Culture - Final No growth in 5 days 01/28/18 17:50 Blood - Peripheral Aerobic Blood Culture - Final No growth in 5 days 01/28/18 17:50 Blood - Peripheral Anaerobic Blood Culture - Final No growth in 5 days 01/30/18 16:01 Catheterized Urine Urine Culture - Final No growth in 48 hours Lab - Hematology Results 02/02/18 02/03/18 03:15 04:40 WBC 6.5 5.4 RBC 2.59 L 2.56 L Hgb 9.1 L 9.2 L Hct 27.1 L 26.8 L MCV 104.6 H 104.7 H MCH 35.1 H 36.1 H MCHC 33.5 34.5 RDW 15.4 15.6 Plt Count 135 L 162 MPV 8.6 8.2 Lab - Chemistry Results 01/31/18 02/01/18 02/01/18 16:30 20:14 21:00 Sodium 145 Potassium 3.3 L Chloride 108 H Carbon Dioxide 26.3 Anion Gap 11 BUN 43 H Creatinine 4.63 H Estimated GFR 15 L POC Glucose 83 Random Glucose 78 Calcium 7.2 L* Prot Corrected Calcium 8.3 L Ionized Calcium 3.7 L Phosphorus Magnesium Total Bilirubin AST ALT Alkaline Phosphatase Total Protein 5.1 L Albumin 02/02/18 02/02/18 02/02/18 00:19 03:15 04:10 Sodium 146 H Potassium 3.2 L Chloride 108 H Carbon Dioxide 25.4 Anion Gap 13 BUN 41 H Creatinine 4.39 H Estimated GFR 16 L POC Glucose 81 105 Random Glucose 99 Calcium 7.0 L* Prot Corrected Calcium 8.0 L Ionized Calcium Phosphorus 2.8 Magnesium 1.5 Total Bilirubin 0.9 AST 56 H ALT 30 Alkaline Phosphatase 169 H Total Protein 5.2 L Albumin 1.6 L 02/02/18 02/02/18 02/02/18 08:10 12:02 15:51 Sodium Potassium Chloride Carbon Dioxide Anion Gap BUN Creatinine Estimated GFR POC Glucose 117 H 126 H 127 H Random Glucose Calcium Prot Corrected Calcium Ionized Calcium Phosphorus Magnesium Total Bilirubin AST ALT Alkaline Phosphatase Total Protein Albumin 02/02/18 02/02/18 02/03/18 18:27 19:47 00:26 Sodium 146 H Potassium 3.3 L Chloride 112 H Carbon Dioxide 22.3 Anion Gap 12 BUN 32 H Creatinine 3.41 H Estimated GFR 21 L POC Glucose 130 H 122 H Random Glucose 131 H Calcium 7.5 L Prot Corrected Calcium Ionized Calcium Phosphorus Magnesium Total Bilirubin AST ALT Alkaline Phosphatase Total Protein Albumin 02/03/18 02/03/18 02/03/18 04:12 04:40 08:15 Sodium 147 H Potassium 3.1 L Chloride 112 H Carbon Dioxide 25.2 Anion Gap 10 BUN 26 H Creatinine 3.13 H Estimated GFR 23 L POC Glucose 115 H 108 Random Glucose 109 H Calcium 7.4 L* Prot Corrected Calcium 8.4 L Ionized Calcium Phosphorus 1.2 L D Magnesium 1.7 Total Bilirubin 0.6 AST 43 H ALT 29 Alkaline Phosphatase 214 H Total Protein 5.3 L Albumin 1.5 L 02/03/18 02/03/18 11:38 15:53 Sodium Potassium Chloride Carbon Dioxide Anion Gap BUN Creatinine Estimated GFR POC Glucose 106 97 Random Glucose Calcium Prot Corrected Calcium Ionized Calcium Phosphorus Magnesium Total Bilirubin AST ALT Alkaline Phosphatase Total Protein Albumin Imaging: ITS Impressions Abdomen/Pelvis CT 01/28/18 00:00 CONCLUSION: 1. There is a new finding of presumed pneumobilia in the left hepatic lobe. Is there a history of recent instrumentation? Portal venous gas is not entirely excluded. 2. Mild induration of the peripancreatic fat proximally suggest mild acute pancreatitis. 3. Small fat-containing umbilical hernia. 4. Pulmonary consolidation is noted as above. 5. Mild gaseous distention of the stomach. Chest CT 01/28/18 00:00 CONCLUSION: 1. Bilateral consolidation most pronounced in the left lower lobe and left upper lobe posteriorly. Head CT 01/28/18 10:19 CONCLUSION: 1. Negative CT Head non contrast. . Gallbladder Ultrasound 01/30/18 00:00 CONCLUSION: 1. Unremarkable study. Chest X-Ray 01/30/18 05:00 CONCLUSION: Stable diffuse left lung airspace consolidation with bibasilar opacities likely representing atelectasis and possible small effusions. Abdomen/Bladder Ultrasound 01/30/18 15:17 CONCLUSION: 1. Negative renal sonogram. Physical Exam: PHYSICAL EXAMINATION: GENERAL: This is a well-developed male who is on the ventilator. He has eyes open. Moving the extremities. HEENT: Pupils are equal and reactive. No icterus. Oropharynx intubated. NECK: No adenopathy or swelling. LUNGS: No significant rhonchi. HEART: Regular S1 and S2. No murmurs heard. ABDOMEN: Bowel sounds diminished. Soft. No tenderness appreciated on palpation. EXTREMITIES: No clubbing, cyanosis; 2+ edema of the hands. SKIN: No diffuse rash. NEUROLOGIC: Unable to fully assess. PSYCHIATRIC: Unable to fully assess. Assessment and Plan - Plan IMPRESSION: 1. Gram-positive cocci. Patient clinically stable. I suspect this is contamination. 2. Chest x-ray airspace consolidation in the left lung. This could be due to aspiration. 3. Status post cardiac arrest. 4. Acute respiratory failure. 5. Acute renal failure. 6. Seizure disorder. RECOMMENDATIONS: No need for treatment of the blood culture at this time. I will sign off now. Please reconsult if needed.
--- NOTE | 2018-02-03 18:09 | P.PNNP ---
Subjective Interval history: patient's renal function has improved. Hypokalemia and hypophosphatemia noted, replaced. Physical Exam Vital signs: Vital Signs 02/02/18 18:15 02/02/18 18:30 02/02/18 18:45 Temperature Pulse Rate 69 70 69 Respiratory Rate 15 16 18 Blood Pressure 93/56 L 90/56 L 93/56 L Pulse Oximetry 100 100 100 02/02/18 19:00 02/02/18 19:15 02/02/18 19:30 Temperature Pulse Rate 69 70 69 Respiratory Rate 16 17 17 Blood Pressure 91/57 L 93/56 L 94/57 L Pulse Oximetry 100 100 100 02/02/18 19:45 02/02/18 20:00 02/02/18 20:04 Temperature Pulse Rate 70 72 72 Respiratory Rate 19 18 19 Blood Pressure 92/58 L 98/60 L Pulse Oximetry 100 100 02/02/18 20:08 02/02/18 20:15 02/02/18 20:30 Temperature 97.5 F L Pulse Rate 72 75 Respiratory Rate 23 19 17 Blood Pressure 96/58 L 93/56 L Pulse Oximetry 96 100 100 02/02/18 20:45 02/02/18 21:00 02/02/18 21:15 Temperature Pulse Rate 75 74 77 Respiratory Rate 16 18 18 Blood Pressure 95/57 L 97/57 L 93/57 L Pulse Oximetry 100 99 99 02/02/18 21:30 02/02/18 21:45 02/02/18 22:00 Temperature Pulse Rate 76 76 73 Respiratory Rate 16 19 18 Blood Pressure 95/56 L 94/56 L 96/56 L Pulse Oximetry 99 99 99 02/02/18 22:15 02/02/18 22:30 02/02/18 22:45 Temperature Pulse Rate 75 75 74 Respiratory Rate 17 16 18 Blood Pressure 93/56 L 90/54 L 94/55 L Pulse Oximetry 99 99 99 02/02/18 23:00 02/02/18 23:15 02/02/18 23:30 Temperature Pulse Rate 74 74 72 Respiratory Rate 17 19 21 Blood Pressure 95/55 L 92/55 L 93/53 L Pulse Oximetry 99 99 99 02/02/18 23:45 02/03/18 00:00 02/03/18 00:15 Temperature 98.3 F Pulse Rate 72 72 72 Respiratory Rate 23 19 19 Blood Pressure 95/55 L 97/55 L 94/54 L Pulse Oximetry 99 100 100 02/03/18 00:30 02/03/18 00:45 02/03/18 01:00 Temperature Pulse Rate 73 73 73 Respiratory Rate 19 18 17 Blood Pressure 95/55 L 94/54 L 92/52 L Pulse Oximetry 100 100 100 02/03/18 01:15 02/03/18 01:30 02/03/18 01:45 Temperature Pulse Rate 73 74 74 Respiratory Rate 17 19 19 Blood Pressure 95/53 L 93/52 L 94/53 L Pulse Oximetry 100 99 100 02/03/18 02:00 02/03/18 02:15 02/03/18 02:30 Temperature Pulse Rate 73 74 74 Respiratory Rate 20 17 19 Blood Pressure 95/53 L 95/55 L 94/55 L Pulse Oximetry 99 99 99 02/03/18 02:45 02/03/18 03:00 02/03/18 03:15 Temperature Pulse Rate 74 81 74 Respiratory Rate 16 19 12 Blood Pressure 95/55 L 103/55 L 93/50 L Pulse Oximetry 99 94 L 02/03/18 03:30 02/03/18 03:45 02/03/18 04:00 Temperature 98.5 F Pulse Rate 74 74 73 Respiratory Rate 12 12 13 Blood Pressure 91/52 L 91/52 L 89/50 L Pulse Oximetry 95 95 96 02/03/18 04:15 02/03/18 04:30 02/03/18 04:45 Temperature Pulse Rate 72 72 71 Respiratory Rate 15 13 15 Blood Pressure 92/51 L 92/54 L 90/54 L Pulse Oximetry 100 100 100 02/03/18 05:00 02/03/18 05:15 02/03/18 05:30 Temperature Pulse Rate 72 71 71 Respiratory Rate 14 16 17 Blood Pressure 92/53 L 90/52 L 91/53 L Pulse Oximetry 100 100 100 02/03/18 05:45 02/03/18 06:00 02/03/18 07:00 Temperature Pulse Rate 71 72 73 Respiratory Rate 14 18 17 Blood Pressure 88/51 L 87/50 L 97/54 L Pulse Oximetry 100 100 100 02/03/18 08:00 02/03/18 08:51 02/03/18 09:00 Temperature 98.2 F Pulse Rate 73 71 Respiratory Rate 17 17 17 Blood Pressure 96/54 L 88/48 L Pulse Oximetry 100 100 100 02/03/18 10:00 02/03/18 11:00 02/03/18 12:00 Temperature 98.8 F Pulse Rate 77 76 79 Respiratory Rate 17 17 16 Blood Pressure 94/49 L 108/60 104/55 L Pulse Oximetry 81 L 100 98 02/03/18 12:45 02/03/18 13:00 02/03/18 14:00 Temperature Pulse Rate 94 H 74 Respiratory Rate 19 25 H 17 Blood Pressure 107/51 L 97/54 L Pulse Oximetry 97 97 96 02/03/18 15:00 02/03/18 16:00 02/03/18 16:46 Temperature 99.3 F Pulse Rate 71 69 Respiratory Rate 17 17 18 Blood Pressure 91/48 L 90/46 L Pulse Oximetry 96 96 95 02/03/18 17:00 Temperature Pulse Rate 69 Respiratory Rate 16 Blood Pressure 94/50 L Pulse Oximetry 96 Intake & Output 02/02/18 02/03/18 02/03/18 18:59 06:59 18:59 Intake Total 2357.6 / 2357.6 2250.5 / 2250.5 1355.6 / 1355.6 Output Total 1750 / 1750 1350 / 1350 Balance 607.6 / 607.6 900.5 / 900.5 1355.6 / 1355.6 Weight 83.5 kg Intake: IV 1613.6 / 1613.6 1415.5 / 1415.5 1355.6 / 1355.6 Precedex Inj 1,000 MCG In NS 500 / 500 250 / 250 250 / 250 Inj 240 ML @ 0.2 MCG/KG/HR 4.17 mls/hr IV.CONT TITRATE PRN Rx# :[id number] Heparin/D5W 25,000 U/250 mL 25, 250 / 250 250 / 250 000 unit In 250 ml @ Per Protocol IV.CONT TITRATE PRN Rx #:[id number] Versed Inj 50 mg In 50 ml @ 2 50 / 50 150 / 150 50 / 50 MG/HR 2 mls/hr IV.CONT TITRATE PRN Rx#:[id number] Magnesium Sulfate Inj 4 GM In 108 / 108 D5W Inj 100 ML @ 25 mls/hr IV. SIG ONCE ONE Rx#:[id number] Magnesium Sulfate Inj 4 GM In 100 / 100 NS Inj 92 ML @ 25 mls/hr IV.SIG ONCE ONE Rx#:[id number] MVI-12 Inj 10 ML Folvite Inj 1 510.2 / 510.2 MG In NS Inj 500 ML @ 125 mls/ hr IV.SIG DAILY GERMAINE Rx#: [id number] Zosyn 2.25 GM Premix 50 ML @ 50 / 50 100 / 100 50 / 50 100 mls/hr IV.SIG Q8H GERMAINE Rx#: [id number] KCl 40 mEq Premix Inj 40 meq In 200 / 200 200 / 200 100 ml @ 25 mls/hr IV.SIG Q4H GERMAINE Rx#:[id number] Thiamine Inj 30 MG In NS Inj 50 100.6 / 100.6 50.3 / 50.3 100.6 / 100.6 ML @ 201.2 mls/hr IV.SIG Q8H GERMAINE Rx#:[id number] fentaNYL 10 mcg/mL Premix Drip 250 / 250 250 / 250 250 / 250 2,500 mcg In 250 ml @ 50 MCG/HR 5 mls/hr IV.SIG TITRATE PRN Rx #:[id number] Keppra Inj 500 MG In NS Inj 100 105 / 105 105 / 105 105 / 105 ML @ 400 mls/hr IV.SIG Q12H [facility] Rx#:[id number] Tube Feeding 344 / 344 355 / 355 Tube Irrigant 80 / 80 Water Bolus Amount 400 / 400 400 / 400 Output: Urine Amount (Catheter) 1750 / 1750 1350 / 1350 Coude 1750 / 1750 1350 / 1350 Other: Date of Last Bowel Movement 02/01/18 02/03/18 02/03/18 # Bowel Movements 0 1 Narrative: GENERAL: on the vent. Frail, muscle wasting. NECK: No carotid bruits. No JVD. CARDIOVASCULAR: Regular rate and rhythm. No murmur appreciated. RESPIRATORY: Mechanically ventilated. Coarse breath sounds. MUSCULOSKELETAL: No clubbing or cyanosis. No edema. NEUROLOGICAL: Intubated, sedated. - Urinary Catheter Management Coude Cath placed during this visit: yes, but has since been removed by the nurse Reason for continuing: Decision to DC catheter Insertion date: 01/28/18 Insertion time: 13:15 Removal date: 02/03/18 Removal time: 15:15 Assessment and Plan - Assessment (1) Acute kidney failure Code(s): N17.9 - Acute kidney failure, unspecified Status: Acute Plan: Most likely suffered ATN. Creatinine is improving. His fluid status is still positive. Blood pressure better. Limit IV infusions. Added free water to tube feeding. Repeat labs daily. Continue to replace potassium as needed. Replace phosphorus. Avoid nephrotoxic agents. (2) Hypokalemia Code(s): E87.6 - Hypokalemia Status: Acute Plan: Continue to replace. Replace Magnesium. . If persists,obtain 24 hour urine for potassium and creatinine to rule out renal wasting. (3) Cardiomyopathy Code(s): I42.9 - Cardiomyopathy, unspecified Status: Acute Plan: Troponin is high, cardiology following. Alcohol induced cardiomyopathy is a possibility. He also had CPR. Also could be secondary to chronic hypokalemia. Agree with thiamine infusion. (4) Acid-base imbalance Code(s): E87.4 - Mixed disorder of acid-base balance Status: Acute Plan: Improving. Management per fitting room supervisor.
[2018-02-03 18:19] LABS: Calcium 7.5 mg/dL (8.5-10.1); Carbon Dioxide 21.4 meq/L (21.0-32.0); Magnesium 2.3 mg/dL (1.5-2.5); Phosphorus 2.2 mg/dL (2.5-4.9); Potassium 4.3 meq/L (3.5-5.1)
[2018-02-03] MEDS: levETIRAcetam 500 MG Tablet NG/OG SCH (20:14)
[2018-02-04] MEDS: Insulin NovoLOG Aspart Correctional Sugar Inj SQ SCH ×6 (01:45→21:06)
[2018-02-04] MEDS: Oral Hygiene Kit OROPHARYNG SCH ×4 (01:46→17:28)
[2018-02-04] MEDS: THIAMINE IV.SIG SCH ×2 (01:53→09:06)
[2018-02-04] MEDS: SODIUM CHLOR 0.9% IV.SIG SCH ×2 (01:53→09:06)
[2018-02-04] MEDS: Midazolam 50 MG/50 ML Inj 50 MG/50 ML BAG IV.CONT PRN ×5 (03:47→23:19)
[2018-02-04] MEDS: Dexmedetomidine Inj 1,000 MCG in Sodium Chlor 0.9% Inj 240 ML IV.CONT PRN ×3 (04:15→22:31)
--- NOTE | 2018-02-04 04:35 | XR ---
EXAM DATE: 02/04/2018 4:26 AM EDT AGE/SEX: 32 years / Male INDICATIONS: Shortness of breath, possible pulmonary disease on a combative patient who had to be he ld down because of hitting and kicking. CLINICAL DATA: This is the patient's subsequent encounter. Patient reports that signs and symptoms h ave been present for 1 week and indicates a pain score of Nonresponsive. MEDICAL/SURGICAL HISTORY: . Alcohol abuse. Depression. Pancreatitis. Seizures None. COMPARISON: C, CHEST 1V SINGLE AP, 01/30/2018. . FINDINGS: ET tube tip is 2.6 cm above the matt. Right central line tip in the distal superior vena cava. Linda alaina tube traverses the [id number]. There is persisting consolidation in the left lower lung with a ir bronchograms and in the right infrahilar region with air bronchograms. There is slight improvement in the aeration in the left lower lung with visualization of portions of the left hemidiaphragm. The heart is stable in size. Moderate scoliosis in the thoracic spine stable from prior. CONCLUSION: Persistent consolidation in the lower lungs, slightly improved in the left lower lung. Electronically signed by: Chad Humphries MD 02/04/2018 4:34 AM EDT
[2018-02-04] MEDS: Piperacil/Tazo 2.25 GM Premix 50 ML IV.SIG SCH ×3 (05:53→20:26)
[2018-02-04 07:03] LABS: Hematocrit 27.4 % (39.0-51.0); Hemoglobin 9.1 gm/dL (13.0-17.0); Mean Corpuscular HGB Conc 33.2 % (32.0-36.0); Mean Corpuscular Hemoglobin 34.6 pg (27.0-34.0); Mean Corpuscular Volume 104.3 fL (80.0-100.0); Mean Platelet Volume 9.3 fL (7.0-11.0); Platelet Count 192 th/mm3 (150-450); Red Blood Count 2.63 mil/mm3 (4.50-5.90); Red Cell Distribution Width 15.8 % (11.6-17.2); White Blood Count 10.8 th/mm3 (4.0-11.0)
[2018-02-04 07:18] LABS: Alanine Aminotransferase 41 U/L (12-78); Albumin 1.6 g/dL (3.4-5.0); Alkaline Phosphatase 288 U/L (45-117); Anion Gap 9 meq/L (5-15); Aspartate Aminotransferase 80 U/L (15-37); Blood Urea Nitrogen 17 mg/dL (7-18); Calcium 7.8 mg/dL (8.5-10.1); Carbon Dioxide 20.8 meq/L (21.0-32.0); Chloride 117 meq/L (98-107); Glomerular Filtration Rate 31 mL/min (>89); Glucose,Random 87 mg/dL (74-106); Lipase 112 U/L (73-393); Magnesium 1.6 mg/dL (1.5-2.5); Phosphorus 1.1 mg/dL (2.5-4.9); Potassium 3.7 meq/L (3.5-5.1); Sodium 147 meq/L (136-145); Total Protein 5.4 g/dL (6.4-8.2)
[2018-02-04] MEDS ORDERED: Multivitamin w/Vit C Drops 50 ML Bottle NG/OG SCH (09:00)
[2018-02-04] MEDS: Pantoprazole Inj 40 MG Vial IV.PUSH SCH (09:05)
[2018-02-04] MEDS: levETIRAcetam 500 MG Tablet NG/OG SCH ×2 (09:06→20:26)
[2018-02-04] MEDS: Chlorhexidine 0.12% Oral Kit 15 ML UDC OROPHARYNG SCH ×2 (09:06→20:26)
[2018-02-04] MEDS: Senna/Docusate Sodium 8.6/50 MG Tablet PO SCH ×2 (09:06→20:26)
[2018-02-04] MEDS: Aspirin 325 MG Tablet PO SCH (09:06)
[2018-02-04] MEDS ORDERED: Magnesium Sulfate Inj 4 GM in Sodium Chlor 0.9% Inj 92 ML IV.SIG ONE (09:33)
[2018-02-04] MEDS ORDERED: Potassium Phosphate Inj 30 MMOL in Sodium Chlor 0.9% Inj 250 ML IV.SIG ONE (09:33)
[2018-02-04] MEDS ORDERED: Potassium Chlor 40 mEq Premix 40 MEQ/100 ML PIGGYBACK IV.SIG ONE (09:34)
[2018-02-04] MEDS ORDERED: Potassium Chloride 20 MEQ Pwd Pkt NG/OG ONE (09:35)
[2018-02-04] MEDS ORDERED: Potassium Phos/Sodium Phos 250 MG Tablet NG/OG ONE (09:38)
[2018-02-04] MEDS: fentaNYL 10 mcg/mL Premix Drip 2,500 MCG/250 ML BAG IV.SIG PRN ×2 (10:26→20:25)
[2018-02-04] MEDS ORDERED: Potassium Chloride 25 MEQ Effervescent Tablet NG/OG ONE (10:30)
[2018-02-04] MEDS: Heparin Drip 25,000 UNIT/250 ML BAG IV.CONT PRN (10:33)
--- NOTE | 2018-02-04 12:42 | P.PNNP ---
Subjective Interval history: Patient has improved renal function Physical Exam Vital signs: Vital Signs 02/03/18 12:45 02/03/18 13:00 02/03/18 14:00 Temperature Pulse Rate 94 H 74 Respiratory Rate 19 25 H 17 Blood Pressure 107/51 L 97/54 L Pulse Oximetry 97 97 96 02/03/18 15:00 02/03/18 16:00 02/03/18 16:46 Temperature 99.3 F Pulse Rate 71 69 Respiratory Rate 17 17 18 Blood Pressure 91/48 L 90/46 L Pulse Oximetry 96 96 95 02/03/18 17:00 02/03/18 18:00 02/03/18 19:00 Temperature Pulse Rate 69 71 71 Respiratory Rate 16 12 14 Blood Pressure 94/50 L 94/50 L 102/52 L Pulse Oximetry 96 97 98 02/03/18 20:00 02/03/18 20:20 02/03/18 20:45 Temperature 99.5 F Pulse Rate 81 Respiratory Rate 14 19 Blood Pressure 98/51 L 99/56 L Pulse Oximetry 96 97 02/03/18 21:00 02/03/18 22:00 02/03/18 23:00 Temperature Pulse Rate 72 70 74 Respiratory Rate 12 12 15 Blood Pressure 93/51 L 93/51 L 98/55 L Pulse Oximetry 97 97 97 02/04/18 00:00 02/04/18 00:11 02/04/18 01:00 Temperature 99.0 F Pulse Rate 77 76 Respiratory Rate 18 26 H 16 Blood Pressure 97/54 L 101/56 L Pulse Oximetry 94 L 97 95 02/04/18 02:00 02/04/18 03:00 02/04/18 04:00 Temperature 99.2 F Pulse Rate 80 82 105 H Respiratory Rate 14 17 30 H Blood Pressure 102/56 L 104/61 115/82 Pulse Oximetry 95 93 L 02/04/18 04:30 02/04/18 05:00 02/04/18 06:00 Temperature Pulse Rate 91 H 111 H 86 Respiratory Rate 22 36 H 18 Blood Pressure 131/85 110/65 Pulse Oximetry 98 98 99 02/04/18 07:00 02/04/18 08:00 02/04/18 09:00 Temperature 98.6 F Pulse Rate 78 75 81 Respiratory Rate 13 13 13 Blood Pressure 98/51 L 98/49 L 110/59 L Pulse Oximetry 99 99 98 09/08/18 10:00 02/04/18 10:06 02/04/18 11:00 Temperature Pulse Rate 90 96 H Respiratory Rate 16 19 19 Blood Pressure 123/63 117/63 Pulse Oximetry 99 99 98 02/04/18 12:00 Temperature Pulse Rate 90 Respiratory Rate 19 Blood Pressure 116/62 Pulse Oximetry 97 Intake & Output 02/03/18 02/04/18 02/04/18 18:59 06:59 18:59 Intake Total 2296.6 / 2296.6 2915.2 / 2915.2 650.66 / 650.66 Output Total 850 / 850 1700 / 1700 Balance 1446.6 / 1446.6 1215.2 / 1215.2 650.66 / 650.66 Weight 86.5 kg Intake: IV 1405.6 / 1405.6 1720.2 / 1720.2 650.66 / 650.66 Precedex Inj 1,000 MCG In NS 250 / 250 500 / 500 Inj 240 ML @ 0.2 MCG/KG/HR 4.17 mls/hr IV.CONT TITRATE PRN Rx# :[id number] Heparin/D5W 25,000 U/250 mL 25, 250 / 250 250 / 250 000 unit In 250 ml @ Per Protocol IV.CONT TITRATE PRN Rx #:[id number] Versed Inj 50 mg In 50 ml @ 2 100 / 100 100 / 100 50 / 50 MG/HR 2 mls/hr IV.CONT TITRATE PRN Rx#:[id number] Magnesium Sulfate Inj 4 GM In 100 / 100 NS Inj 92 ML @ 25 mls/hr IV.SIG ONCE ONE Rx#:[id number] MVI-12 Inj 10 ML Folvite Inj 1 510.2 / 510.2 MG In NS Inj 500 ML @ 125 mls/ hr IV.SIG DAILY GERMAINE Rx#: [id number] Zosyn 2.25 GM Premix 50 ML @ 50 / 50 100 / 100 100 mls/hr IV.SIG Q8H [facility] Rx#: [id number] KCl 40 mEq Premix Inj 40 meq In 200 / 200 100 ml @ 25 mls/hr IV.SIG Q4H [facility] Rx#:[id number] Potassium Phosphate Inj 30 MMOL 260 / 260 In NS Inj 250 ML @ 43.333 mls/ hr IV.SIG ONCE ONE Rx#:[id number] Thiamine Inj 30 MG In NS Inj 50 100.6 / 100.6 100.66 / 100.66 ML @ 201.2 mls/hr IV.SIG Q8H [facility] Rx#:[id number] fentaNYL 10 mcg/mL Premix Drip 250 / 250 250 / 250 250 / 250 2,500 mcg In 250 ml @ 50 MCG/HR 5 mls/hr IV.SIG TITRATE PRN Rx #:[id number] Keppra Inj 500 MG In NS Inj 100 105 / 105 ML @ 400 mls/hr IV.SIG Q12H [facility] Rx#:[id number] Tube Feeding 491 / 491 545 / 545 Tube Irrigant 50 / 50 Water Bolus Amount 400 / 400 600 / 600 Output: Urine Amount (Catheter) 850 / 850 1700 / 1700 Coude 850 / 850 Straight 1700 / 1700 Other: Date of Last Bowel Movement 02/03/18 02/03/18 02/03/18 # Bowel Movements 1 Narrative: GENERAL: on the vent. Frail, muscle wasting. NECK: No carotid bruits. No JVD. CARDIOVASCULAR: Regular rate and rhythm. No murmur appreciated. RESPIRATORY: Mechanically ventilated. Coarse breath sounds. MUSCULOSKELETAL: No clubbing or cyanosis. No edema. NEUROLOGICAL: Intubated, sedated. - Urinary Catheter Management Coude Cath placed during this visit: yes, but has since been removed by the nurse Reason for continuing: Decision to DC catheter Insertion date: 01/28/18 Insertion time: 13:15 Removal date: 02/03/18 Removal time: 15:15 Straight Cath placed during this visit: yes, but has since been removed by the nurse Reason for continuing: Acute urinary retention Insertion date: 02/04/18 Insertion time: 07:00 Removal date: 02/04/18 Indwelling Urethral Catheter Cath placed during this visit: yes Reason for continuing: Acute urinary retention Insertion date: 02/04/18 Insertion time: 07:00 Assessment and Plan - Assessment (1) Acute kidney failure Code(s): N17.9 - Acute kidney failure, unspecified Status: Acute Plan: Most likely suffered ATN. Creatinine is improving. Creatinine has declined His fluid status is still positive. Blood pressure better. Limit IV infusions. Added free water to tube feeding. Repeat labs daily. Continue to replace potassium as needed. Replace phosphorus. Avoid nephrotoxic agents. Dr. Ruby follow-up (2) Hypokalemia Code(s): E87.6 - Hypokalemia Status: Acute Plan: Continue to monitor (3) Cardiomyopathy Code(s): I42.9 - Cardiomyopathy, unspecified Status: Acute Plan: Troponin is high, cardiology following. Alcohol induced cardiomyopathy is a possibility. He also had CPR. Also could be secondary to chronic hypokalemia. Agree with thiamine infusion. (4) Acid-base imbalance Code(s): E87.4 - Mixed disorder of acid-base balance Status: Acute Plan: Improving. Management per block splitter operator.
--- NOTE | 2018-02-04 12:47 | P.PNCC ---
Subjective Subjective Remarks/Hospital Course: Hospital Course: This is a 32-year-old male. Admission 01/28/2018. Past medical history includes seizure disorder/noncompliant with levetiracetam, previous EtOH sober for 4 weeks, anorexia, gastroesophageal reflux disease and chronic pancreatitis. Patient presented to [facility] [address] 01/28/2018 with a two-day history of nausea vomiting and diarrhea. Patient's mother/discussed at bedside stated she had just had a "stomach flu" which she has currently recovered. Mom states that the patient has become fairly dehydrated is been having some cramping of his hands. She is worried that he is getting dehydrated and his potassium might begin low. He was unable to tolerate a banana so she gave him some potassium pills p.o. which she also did not tolerate and threw up. Sober 4 weeks according to mother. Patient was noted to have a low potassium at 2.0. Creatinine of 4.0. This is in line with his previous hospitalizations for acute dehydration. Lipase was slightly elevated. Patient does have a history of seizure disorder which is not compliant with levetiracetam. ED physician was called into room because the RN believed he had a seizure. Patient was unresponsive. Mother states this was not like any seizure that she had seen. Pulses not palpable therefore CPR was initiated. Initial rhythm was V. fib. Patient received amiodarone, lidocaine, epinephrine, bicarbonate, magnesium during the 35 minute code with return of spontaneous circulation after 35 minutes. Pupils are about 9 mils bilaterally and 6. When I saw the patient patient was actively thrashing moving all 4 extremities spontaneously but not to command. Pupils are round 8 mm bilaterally and nonreactive. Brain CT revealed no acute findings. CT thorax revealed a left upper and lower lobe. CT abdomen pelvis pending at time of dictation. Likely, troponin pending. EKG revealed incomplete right bundle block with ST depression in the inferior and lateral leads. Cardiology consulted. They will evaluate after stat echocardiogram and troponins been completed. Potassium will be replaced pending BMP Subjective: 01/29: persistently in shock. following commands this AM. trop uptrended overnight and now > 40. on levo @ 10, vasopressin. bedside echo with persistence of his global severe LV systolic dysfunction. IVC dilated without respiratory variation. initially attempted therapeutic hypothermia, but became arrhythmogenic and neurologic exam improved and now following commands, so hypothermia aborted. persistently hypokalemic and hypophosphatemic this AM. in addition, remains with severe metabolic alkalosis. 01/30: Troponin trending down, continues to have severe hypokalemia and metabolic alkalosis. Creatinine continues to trend up, only produced 200 cc of urine over the past 24 hours. 01/31: Patient seen by nephrology yesterday and given bumex, urine output dramatically increased, potassium improved with aggressive repletion, pressors now off and dobutamine at 5. 02/01: No issues overnight. Patient tolerated dobutamine at 2 yesterday, discontinued this morning. Switching propofol to precedex and would like to start SBTs today. Overall improved. 02/02: Tolerated switch to precedex yesterday and was on bipap 05/06 for several hours yesterday afternoon, placed back on AC overnight to avoid respiratory fatigue. 02/03: Patient had no overnight events, tolerated SBT x 5 hours yesterday. Significantly agitated this morning during sedation vacation. 02/04: Patient still struggles with agitation when we lighten sedation. Objective Vital Signs / I&O: Vital Signs 02/03/18 12:45 02/03/18 13:00 02/03/18 14:00 Temperature Pulse Rate 94 H 74 Respiratory Rate 19 25 H 17 Blood Pressure 107/51 L 97/54 L Pulse Oximetry 97 97 96 02/03/18 15:00 02/03/18 16:00 02/03/18 16:46 Temperature 99.3 F Pulse Rate 71 69 Respiratory Rate 17 17 18 Blood Pressure 91/48 L 90/46 L Pulse Oximetry 96 96 95 02/03/18 17:00 02/03/18 18:00 02/03/18 19:00 Temperature Pulse Rate 69 71 71 Respiratory Rate 16 12 14 Blood Pressure 94/50 L 94/50 L 102/52 L Pulse Oximetry 96 97 98 02/03/18 20:00 02/03/18 20:20 02/03/18 20:45 Temperature 99.5 F Pulse Rate 81 Respiratory Rate 14 19 Blood Pressure 98/51 L 99/56 L Pulse Oximetry 96 97 02/03/18 21:00 02/03/18 22:00 02/03/18 23:00 Temperature Pulse Rate 72 70 74 Respiratory Rate 12 12 15 Blood Pressure 93/51 L 93/51 L 98/55 L Pulse Oximetry 97 97 97 02/04/18 00:00 02/04/18 00:11 02/04/18 01:00 Temperature 99.0 F Pulse Rate 77 76 Respiratory Rate 18 26 H 16 Blood Pressure 97/54 L 101/56 L Pulse Oximetry 94 L 97 95 02/04/18 02:00 02/04/18 03:00 02/04/18 04:00 Temperature 99.2 F Pulse Rate 80 82 105 H Respiratory Rate 14 17 30 H Blood Pressure 102/56 L 104/61 115/82 Pulse Oximetry 95 93 L 02/04/18 04:30 02/04/18 05:00 02/04/18 06:00 Temperature Pulse Rate 91 H 111 H 86 Respiratory Rate 22 36 H 18 Blood Pressure 131/85 110/65 Pulse Oximetry 98 98 99 02/04/18 07:00 02/04/18 08:00 02/04/18 09:00 Temperature 98.6 F Pulse Rate 78 75 81 Respiratory Rate 13 13 13 Blood Pressure 98/51 L 98/49 L 110/59 L Pulse Oximetry 99 99 98 02/04/18 10:00 02/04/18 10:06 02/04/18 11:00 Temperature Pulse Rate 90 96 H Respiratory Rate 16 19 19 Blood Pressure 123/63 117/63 Pulse Oximetry 99 99 98 02/04/18 12:00 Temperature Pulse Rate 90 Respiratory Rate 19 Blood Pressure 116/62 Pulse Oximetry 97 Intake & Output 02/03/18 02/04/18 02/04/18 18:59 06:59 18:59 Intake Total 2296.6 / 2296.6 2915.2 / 2915.2 650.66 / 650.66 Output Total 850 / 850 1700 / 1700 Balance 1446.6 / 1446.6 1215.2 / 1215.2 650.66 / 650.66 Weight 86.5 kg Intake: IV 1405.6 / 1405.6 1720.2 / 1720.2 650.66 / 650.66 Precedex Inj 1,000 MCG In NS 250 / 250 500 / 500 Inj 240 ML @ 0.2 MCG/KG/HR 4.17 mls/hr IV.CONT TITRATE PRN Rx# :[id number] Heparin/D5W 25,000 U/250 mL 25, 250 / 250 250 / 250 000 unit In 250 ml @ Per Protocol IV.CONT TITRATE PRN Rx #:[id number] Versed Inj 50 mg In 50 ml @ 2 100 / 100 100 / 100 50 / 50 MG/HR 2 mls/hr IV.CONT TITRATE PRN Rx#:[id number] Magnesium Sulfate Inj 4 GM In 100 / 100 NS Inj 92 ML @ 25 mls/hr IV.SIG ONCE ONE Rx#:[id number] MVI-12 Inj 10 ML Folvite Inj 1 510.2 / 510.2 MG In NS Inj 500 ML @ 125 mls/ hr IV.SIG DAILY [facility] Rx#: [id number] Zosyn 2.25 GM Premix 50 ML @ 50 / 50 100 / 100 100 mls/hr IV.SIG Q8H [facility] Rx#: [id number] KCl 40 mEq Premix Inj 40 meq In 200 / 200 100 ml @ 25 mls/hr IV.SIG Q4H [facility] Rx#:[id number] Potassium Phosphate Inj 30 MMOL 260 / 260 In NS Inj 250 ML @ 43.333 mls/ hr IV.SIG ONCE ONE Rx#:[id number] Thiamine Inj 30 MG In NS Inj 50 100.6 / 100.6 100.66 / 100.66 ML @ 201.2 mls/hr IV.SIG Q8H [facility] Rx#:[id number] fentaNYL 10 mcg/mL Premix Drip 250 / 250 250 / 250 250 / 250 2,500 mcg In 250 ml @ 50 MCG/HR 5 mls/hr IV.SIG TITRATE PRN Rx #:[id number] Keppra Inj 500 MG In NS Inj 100 105 / 105 ML @ 400 mls/hr IV.SIG Q12H [facility] Rx#:[id number] Tube Feeding 491 / 491 545 / 545 Tube Irrigant 50 / 50 Water Bolus Amount 400 / 400 600 / 600 Output: Urine Amount (Catheter) 850 / 850 1700 / 1700 Coude 850 / 850 Straight 1700 / 1700 Other: Date of Last Bowel Movement 02/03/18 02/03/18 02/03/18 # Bowel Movements 1 Result Diagrams: 02/04/18 05:00 02/04/18 05:00 Objective Remarks: GENERAL: Intubated and sedated HEENT: NCAT, ETT present NECK: Trachea midline CHEST: Mechanical breath sounds bilaterally. Subclavian TLC on right. CARDIOVASCULAR: Regular rate and rhythm ABDOMEN: Soft, non-tender in all quadrants MUSCULOSKELETAL: Warm and well perfused, trace to 1+ peripheral edema NEUROLOGICAL: RASS 0 to -1, appears calm, follows commands, nods/ shakes head appropriately Assessment and Plan - Assessment and Plan Plan: Assessment: 32-year-old male with history of EtOH abuse and chronic pancreatitis who presents with severe hypokalemia, dehydration, and cardiac arrest; found to have significant cardiomyopathy/ cardiogenic shock and acute kidney injury. Neuro/Psych: Seizure disorder NOS History of EtOH sober 4 weeks History of anorexia/bulimia Sedated on precedex, fentanyl, and versed; continue slow wean as tolerated. Goal of RASS 0 to -1 Continue keppra 500 BID (home dose) Restart home seroquel Patient has a previous history of heavy EtOH abuse and bulimia as per mother-- continue thiamine/ folate supplementation Delirium precautions- lights on/ shades up during the day, limit nighttime disruptions, frequent reorientation to environment CV: In-hospital cardiac arrest V. fib arrest Cardiogenic Shock-- resolved Severe LV systolic dysfunction Plan is still for cardiac perfusion study when creatinine improves Echo 01/28: severe LV systolic dysfunction, EF 20-25%. mildly depressed RV function. no valvular lesions. Continue heparin drip, ASA daily Continued empiric supplementation for ? beriberi-- will change IV thiamine over to PO now that shock has resolved Resp: Acute hypoxic respiratory failure Left upper/lower lobe pulmonary infiltrates-- improving Ventilator bundle Albuterol/ipratropium aerosols every 4 hours with albuterol nebs q2 PRN Chest PT, pulmonary hygiene Daily SBTs GI: Elevated lipase/mild pancreatitis-- resolved Left hepatic pneumobilia history of chronic pancreatitis Suplena @ goal, free water flushes Pantoprazole for GI prophylaxis, changed to PO Docusate serum/senna 1 tablet twice daily for bowel regimen Renal/ : Acute kidney injury-- improving Nance removed yesterday but patient was noted to be retaining this morning, replaced Creatinine peaked around 6, continues to improve, now 2.4. Urine output 1.2 cc/ kg/hr Continue to diurese, still running net positive each day but I am changing many of his meds to PO, which should decrease total intake by about 800 cc/ day. Give another dose of bumex today. Nephrology following Endo: Sliding scale insulin with Accu-Cheks to maintain euglycemia aspart insulin every 6 hours, IV dextrose as needed for hypoglycemia Heme: Leukocytosis-- resolved Macrocytic anemia- stable Mild coagulopathy-- no longer clinically significant as patient is on heparin gtt Monitor CBC daily. Follow trends. ID: Blood cultures on 01/28 and 01/31 showed coagulase negative staph hominis, likely contamination Sputum, UA and influenza all NGTD s/p zosyn for 7 days to treat pneumonia, CXR improving and patient is weaning from vent, d/c antibiotics ID recs noted FEN: severe life-threatening Hypokalemia severe life-threatening hypophosphatemia severe metabolic alkalosis Patient continues to require aggressive electrolyte repletion. Continue to check lytes q12h. Will transition to more PO replacements as able. Check 24h urine creat and potassium. MSK: PT evaluate and treat Access: - 01/29 right radial art line - 01/29 right SC TLC with CVP monitoring-- Mom consented for PICC line, D/C TLC once placed * I was informed by RN yesterday evening that the PICC team was requesting ID and nephrology clearance prior to placing PICC line. From my standpoint as the primary physician managing this patient, he is cleared to have a PICC placed. His kidney function is significantly improved and it is very unlikely that he would need an AVF/ AVG for hemodialysis in the foreseeable future; additionally , I am taking him off of antibiotics today because his infection has resolved. - 02/04 Nance for urinary retention Prophylaxis -GI-pantoprazole -DVT SCD/heparin gtt Counseling/ Coordination of Care: Total critical care time: 45 minutes. This includes examining the patient, gathering history from someone other than the patient (i.e., chart review), discussing the patient's care with other providers, managing the patient's blood pressure and ventilator settings, ordering and interpreting laboratory studies, managing the patient's pain and sedation requirements, re-evaluation at frequent intervals, and documentation. All critical care time is separate and exclusive of procedures, teaching, and patient/ family updates. Code Status: Full
[2018-02-04] MEDS: QUEtiapine 100 MG Tablet NG/OG SCH ×2 (13:14→20:26)
[2018-02-04 18:21] LABS: Calcium 7.7 mg/dL (8.5-10.1); Carbon Dioxide 23.9 meq/L (21.0-32.0); Magnesium 2.3 mg/dL (1.5-2.5); Potassium 3.8 meq/L (3.5-5.1)
[2018-02-05] MEDS: Oral Hygiene Kit OROPHARYNG SCH ×4 (00:56→17:10)
[2018-02-05] MEDS: Insulin NovoLOG Aspart Correctional Sugar Inj SQ SCH ×5 (00:56→19:36)
[2018-02-05] MEDS: Midazolam 50 MG/50 ML Inj 50 MG/50 ML BAG IV.CONT PRN ×2 (04:20→06:42)
[2018-02-05] MEDS: Piperacil/Tazo 2.25 GM Premix 50 ML IV.SIG SCH (04:45)
[2018-02-05] MEDS: Heparin Drip 25,000 UNIT/250 ML BAG IV.CONT PRN ×2 (05:02→20:37)
[2018-02-05 05:22] LABS: Hematocrit 25.4 % (39.0-51.0); Hemoglobin 8.9 gm/dL (13.0-17.0); Mean Corpuscular Volume 102.6 fL (80.0-100.0); Mean Platelet Volume 9.1 fL (7.0-11.0); Platelet Count 202 th/mm3 (150-450); Red Blood Count 2.47 mil/mm3 (4.50-5.90); Red Cell Distribution Width 15.7 % (11.6-17.2); White Blood Count 13.5 th/mm3 (4.0-11.0)
[2018-02-05] MEDS: fentaNYL 10 mcg/mL Premix Drip 2,500 MCG/250 ML BAG IV.SIG PRN ×2 (05:22→22:26)
[2018-02-05 06:05] LABS: Alanine Aminotransferase 34 U/L (12-78); Albumin 1.4 g/dL (3.4-5.0); Alkaline Phosphatase 261 U/L (45-117); Anion Gap 9 meq/L (5-15); Aspartate Aminotransferase 46 U/L (15-37); Blood Urea Nitrogen 15 mg/dL (7-18); Calcium 7.7 mg/dL (8.5-10.1); Carbon Dioxide 22.2 meq/L (21.0-32.0); Chloride 115 meq/L (98-107); Glomerular Filtration Rate 39 mL/min (>89); Glucose,Random 129 mg/dL (74-106); Magnesium 1.8 mg/dL (1.5-2.5); Phosphorus 2.2 mg/dL (2.5-4.9); Potassium 3.5 meq/L (3.5-5.1); Sodium 146 meq/L (136-145); Total Protein 5.3 g/dL (6.4-8.2)
[2018-02-05] MEDS: Dexmedetomidine Inj 1,000 MCG in Sodium Chlor 0.9% Inj 240 ML IV.CONT PRN (06:50)
[2018-02-05] MEDS ORDERED: Potassium Phosphate Inj 30 MMOL in Sodium Chlor 0.9% Inj 250 ML IV.SIG ONE (08:05)
[2018-02-05] MEDS ORDERED: Potassium Phosphate 500 MG Soluble Tablet PO ONE (08:05)
[2018-02-05] MEDS ORDERED: Magnesium Sulfate Inj 4 GM in Dextrose 5% in Water Inj 100 ML IV.SIG ONE ×2 (08:05)
[2018-02-05] MEDS ORDERED: Potassium Chloride 20 MEQ Pwd Pkt NG/OG ONE (08:06)
[2018-02-05] MEDS: levETIRAcetam 500 MG Tablet NG/OG SCH ×2 (08:13→20:37)
[2018-02-05] MEDS: Senna/Docusate Sodium 8.6/50 MG Tablet PO SCH ×2 (08:13→22:08)
[2018-02-05] MEDS: Aspirin 325 MG Tablet PO SCH (08:13)
[2018-02-05] MEDS: Pantoprazole Inj 40 MG Vial IV.PUSH SCH (08:14)
[2018-02-05] MEDS: QUEtiapine 100 MG Tablet NG/OG SCH ×2 (08:14→20:37)
[2018-02-05] MEDS: Chlorhexidine 0.12% Oral Kit 15 ML UDC OROPHARYNG SCH ×2 (08:15→20:43)
--- NOTE | 2018-02-05 08:23 | P.PNCC ---
Subjective Subjective Remarks/Hospital Course: Hospital Course: This is a 32-year-old male. Admission 01/28/2018. Past medical history includes seizure disorder/noncompliant with levetiracetam, previous EtOH sober for 4 weeks, anorexia, gastroesophageal reflux disease and chronic pancreatitis. Patient presented to [facility] 01/28/2018 with a two-day history of nausea vomiting and diarrhea. Patient's mother/discussed at bedside stated she had just had a "stomach flu" which she has currently recovered. Mom states that the patient has become fairly dehydrated is been having some cramping of his hands. She is worried that he is getting dehydrated and his potassium might begin low. He was unable to tolerate a banana so she gave him some potassium pills p.o. which she also did not tolerate and threw up. Sober 4 weeks according to mother. Patient was noted to have a low potassium at 2.0. Creatinine of 4.0. This is in line with his previous hospitalizations for acute dehydration. Lipase was slightly elevated. Patient does have a history of seizure disorder which is not compliant with levetiracetam. ED physician was called into room because the RN believed he had a seizure. Patient was unresponsive. Mother states this was not like any seizure that she had seen. Pulses not palpable therefore CPR was initiated. Initial rhythm was V. fib. Patient received amiodarone, lidocaine, epinephrine, bicarbonate, magnesium during the 35 minute code with return of spontaneous circulation after 35 minutes. Pupils are about 9 mils bilaterally and 6. When I saw the patient patient was actively thrashing moving all 4 extremities spontaneously but not to command. Pupils are round 8 mm bilaterally and nonreactive. Brain CT revealed no acute findings. CT thorax revealed a left upper and lower lobe. CT abdomen pelvis pending at time of dictation. Likely, troponin pending. EKG revealed incomplete right bundle block with ST depression in the inferior and lateral leads. Cardiology consulted. They will evaluate after stat echocardiogram and troponins been completed. Potassium will be replaced pending BMP Subjective: 01/29: persistently in shock. following commands this AM. trop uptrended overnight and now > 40. on levo @ 10, vasopressin. bedside echo with persistence of his global severe LV systolic dysfunction. IVC dilated without respiratory variation. initially attempted therapeutic hypothermia, but became arrhythmogenic and neurologic exam improved and now following commands, so hypothermia aborted. persistently hypokalemic and hypophosphatemic this AM. in addition, remains with severe metabolic alkalosis. 01/30: Troponin trending down, continues to have severe hypokalemia and metabolic alkalosis. Creatinine continues to trend up, only produced 200 cc of urine over the past 24 hours. 01/31: Patient seen by nephrology yesterday and given bumex, urine output dramatically increased, potassium improved with aggressive repletion, pressors now off and dobutamine at 5. 02/01: No issues overnight. Patient tolerated dobutamine at 2 yesterday, discontinued this morning. Switching propofol to precedex and would like to start SBTs today. Overall improved. 02/02: Tolerated switch to precedex yesterday and was on bipap 05/06 for several hours yesterday afternoon, placed back on AC overnight to avoid respiratory fatigue. 02/03: Patient had no overnight events, tolerated SBT x 5 hours yesterday. Significantly agitated this morning during sedation vacation. 02/04: Patient still struggles with agitation when we lighten sedation. 02/05: Temp 103F this morning, no obvious source of infection. Needs to have PICC line placed today. Objective Vital Signs / I&O: Vital Signs 02/04/18 09:00 02/04/18 10:00 02/04/18 10:06 Temperature Pulse Rate 81 90 Respiratory Rate 13 16 19 Blood Pressure 110/59 L 123/63 Pulse Oximetry 98 99 99 02/04/18 11:00 02/04/18 12:00 02/04/18 13:00 Temperature Pulse Rate 96 H 90 84 Respiratory Rate 19 19 15 Blood Pressure 117/63 116/62 107/52 L Pulse Oximetry 98 97 98 02/04/18 13:08 02/04/18 14:00 02/04/18 15:00 Temperature Pulse Rate 82 81 Respiratory Rate 13 14 16 Blood Pressure 114/57 L 122/57 L Pulse Oximetry 98 98 98 02/04/18 16:00 02/04/18 16:48 02/04/18 17:00 Temperature 99.2 F Pulse Rate 79 78 Respiratory Rate 12 12 12 Blood Pressure 103/50 L 101/48 L Pulse Oximetry 97 97 97 02/04/18 18:00 02/04/18 19:00 09/08/18 20:00 Temperature 99.2 F Pulse Rate 74 76 72 Respiratory Rate 12 12 12 Blood Pressure 107/53 L 112/55 L 114/56 L Pulse Oximetry 97 96 97 02/04/18 21:00 02/04/18 22:00 02/04/18 23:00 Temperature Pulse Rate 75 74 74 Respiratory Rate 12 12 13 Blood Pressure 124/59 L 114/53 L 110/50 L Pulse Oximetry 96 96 96 02/05/18 00:00 02/05/18 01:00 02/05/18 02:00 Temperature 99.3 F Pulse Rate 76 94 H 85 Respiratory Rate 13 18 16 Blood Pressure 112/50 L 108/46 L 104/43 L Pulse Oximetry 95 93 L 93 L 02/05/18 03:00 02/05/18 03:46 02/05/18 04:00 Temperature 98.6 F Pulse Rate 79 81 Respiratory Rate 14 16 14 Blood Pressure 116/52 L 117/52 L Pulse Oximetry 95 95 02/05/18 05:00 02/05/18 06:00 02/05/18 07:00 Temperature Pulse Rate 87 91 H 98 H Respiratory Rate 22 20 27 H Blood Pressure 114/57 L 103/42 L 116/47 L Pulse Oximetry 94 L 93 L 94 L 02/05/18 08:07 Temperature Pulse Rate Respiratory Rate 17 Blood Pressure Pulse Oximetry 94 L Intake & Output 02/04/18 02/05/18 02/05/18 18:59 06:59 18:59 Intake Total 2356.66 / 2356.66 2325 / 2325 50 / 50 Output Total 4600 / 4600 900 / 900 Balance -2243.34 / -2243.34 1425 / 1425 50 / 50 Weight 86 kg Intake: IV 1510.66 / 1510.66 1450 / 1450 50 / 50 Precedex Inj 1,000 MCG In NS 250 / 250 500 / 500 Inj 240 ML @ 0.2 MCG/KG/HR 4.17 mls/hr IV.CONT TITRATE PRN Rx# :[id number] Heparin/D5W 25,000 U/250 mL 25, 250 / 250 250 / 250 000 unit In 250 ml @ Per Protocol IV.CONT TITRATE PRN Rx #:[id number] Versed Inj 50 mg In 50 ml @ 2 150 / 150 150 / 150 MG/HR 2 mls/hr IV.CONT TITRATE PRN Rx#:[id number] Magnesium Sulfate Inj 4 GM In 100 / 100 NS Inj 92 ML @ 25 mls/hr IV.SIG ONCE ONE Rx#:[id number] Zosyn 2.25 GM Premix 50 ML @ 50 / 50 50 / 50 50 / 50 100 mls/hr IV.SIG Q8H GERMAINE Rx#: [id number] KCl 40 mEq Premix Inj 40 meq In 100 / 100 100 ml @ 25 mls/hr IV.SIG ONCE ONE Rx#:[id number] Potassium Phosphate Inj 30 MMOL 260 / 260 In NS Inj 250 ML @ 43.333 mls/ hr IV.SIG ONCE ONE Rx#:[id number] Thiamine Inj 30 MG In NS Inj 50 100.66 / 100.66 ML @ 201.2 mls/hr IV.SIG Q8H [facility] Rx#:[id number] fentaNYL 10 mcg/mL Premix Drip 250 / 250 500 / 500 2,500 mcg In 250 ml @ 50 MCG/HR 5 mls/hr IV.SIG TITRATE PRN Rx #:[id number] Tube Feeding 446 / 446 425 / 425 Tube Irrigant 50 / 50 Water Bolus Amount 400 / 400 400 / 400 Output: Urine Amount (Catheter) 4600 / 4600 900 / 900 Indwelling Urethral Catheter 4600 / 4600 900 / 900 Other: Date of Last Bowel Movement 02/04/18 02/05/18 # Bowel Movements 1 1 Result Diagrams: 02/05/18 04:45 02/05/18 04:45 Objective Remarks: GENERAL: Intubated, sedated HEENT: NCAT, ETT NECK: Trachea midline CHEST: Clear to auscultation bilaterally. Subclavian TLC on right. CARDIOVASCULAR: Regular rate and rhythm ABDOMEN: Soft, non-tender in all quadrants, no rebound MUSCULOSKELETAL: Warm and well perfused, improved trace peripheral edema NEUROLOGICAL: RASS 0 to -1, appears calm, follows commands Assessment and Plan - Assessment and Plan Plan: Assessment: 32-year-old male with history of EtOH abuse and chronic pancreatitis who presents with severe hypokalemia, dehydration, and cardiac arrest; found to have significant cardiomyopathy/ cardiogenic shock and acute kidney injury. Neuro/Psych: Seizure disorder NOS History of EtOH sober 4 weeks History of anorexia/bulimia Sedated on precedex, fentanyl, and versed; see extubation plan as noted below Goal of RASS 0 to -1 Continue keppra 500 BID (home dose) Home seroquel Patient has a previous history of heavy EtOH abuse and bulimia as per mother-- continue thiamine/ folate supplementation Delirium precautions- lights on/ shades up during the day, limit nighttime disruptions, frequent reorientation to environment CV: In-hospital cardiac arrest V. fib arrest Cardiogenic Shock-- resolved Severe LV systolic dysfunction Plan is still for cardiac perfusion study when creatinine improves Echo 01/28: severe LV systolic dysfunction, EF 20-25%. mildly depressed RV function. no valvular lesions. Continue heparin drip, ASA daily Continued PO thiamine supplementation for ? beriberi Resp: Acute hypoxic respiratory failure Left upper/lower lobe pulmonary infiltrates-- improving Patient tolerated pressure support 10/5 all day yesterday, placed back on AC overnight to rest * Patient's respiratory mechanics are great on pressure support; he is tolerating 8/5 this morning * He is still intubated mainly for sedation reasons (he becomes very agitated when sedation is dropped but does not have respiratory distress during these episodes) * Given the patient's age and overall improved recovery this week, I would really like to avoid a tracheostomy if at all possible. Therefore, I would like to drop the sedation today and extubate the patient with the understanding that he may require re-intubation. I discussed this with his mother yesterday, who understands and agrees. Ventilator bundle Albuterol/ipratropium aerosols every 4 hours with albuterol nebs q2 PRN Chest PT, pulmonary hygiene GI: Elevated lipase/mild pancreatitis-- resolved Left hepatic pneumobilia history of chronic pancreatitis Suplena @ goal, free water flushes PO pantoprazole for GI prophylaxis Docusate serum/senna 1 tablet twice daily for bowel regimen Renal/ : Acute kidney injury-- improving Nance replaced yesterday Creatinine peaked around 6, continues to improve, now 2.0. Urine output 2.66 cc/ kg/hr Redose bumex Nephrology following Endo: Sliding scale insulin with Accu-Cheks to maintain euglycemia aspart insulin every 6 hours, IV dextrose as needed for hypoglycemia Heme: Leukocytosis-- resolved Macrocytic anemia- stable Mild coagulopathy-- no longer clinically significant as patient is on heparin gtt Monitor CBC daily. Follow trends. ID: Blood cultures on 01/28 and 01/31 showed coagulase negative staph hominis, likely contamination Sputum, UA and influenza all NGTD s/p zosyn for 7 days to treat pneumonia, CXR improving and patient is weaning from vent, d/c antibiotics Febrile this morning; I suspect this is more due to agitation as he has no new signs or symptoms suggesting infection FEN: severe life-threatening Hypokalemia severe life-threatening hypophosphatemia severe metabolic alkalosis Patient continues to require aggressive electrolyte repletion. Continue to check lytes q12h. Check 24h urine creat and potassium. MSK: PT evaluate and treat Access: - 01/29 right radial art line - 01/29 right SC TLC with CVP monitoring-- Mom consented for PICC line, D/C TLC once placed * Vascular access team-- Please place PICC line today - 02/04 Nance for urinary retention Prophylaxis -GI-pantoprazole -DVT SCD/heparin gtt Counseling/ Coordination of Care: Total critical care time: 44 minutes. This includes examining the patient, gathering history from someone other than the patient (i.e., chart review), discussing the patient's care with other providers, managing the patient's blood pressure and ventilator settings, ordering and interpreting laboratory studies, managing the patient's pain and sedation requirements, re-evaluation at frequent intervals, and documentation. All critical care time is separate and exclusive of procedures, teaching, and patient/ family updates. Code Status: Full
[2018-02-05] MEDS: Potassium Chlor 40 mEq Premix 40 MEQ/100 ML PIGGYBACK IV.SIG SCH ×2 (08:25→13:25)
[2018-02-05] MEDS ORDERED: Potassium Chloride 25 MEQ Effervescent Tablet NG/OG ONE (09:30)
--- NOTE | 2018-02-05 13:23 | P.PNNP ---
Subjective Interval history: Patient extubated is tachypneic Physical Exam Vital signs: Vital Signs 02/04/18 14:00 02/04/18 15:00 02/04/18 16:00 Temperature 99.2 F Pulse Rate 82 81 79 Respiratory Rate 14 16 12 Blood Pressure 114/57 L 122/57 L 103/50 L Pulse Oximetry 98 98 97 02/04/18 16:48 02/04/18 17:00 02/04/18 18:00 Temperature Pulse Rate 78 74 Respiratory Rate 12 12 12 Blood Pressure 101/48 L 107/53 L Pulse Oximetry 97 97 97 02/04/18 19:00 02/04/18 20:00 02/04/18 21:00 Temperature 99.2 F Pulse Rate 76 72 75 Respiratory Rate 12 12 12 Blood Pressure 112/55 L 114/56 L 124/59 L Pulse Oximetry 96 97 96 02/04/18 22:00 02/04/18 23:00 02/05/18 00:00 Temperature 99.3 F Pulse Rate 74 74 76 Respiratory Rate 12 13 13 Blood Pressure 114/53 L 110/50 L 112/50 L Pulse Oximetry 96 96 95 02/05/18 01:00 02/05/18 02:00 02/05/18 03:00 Temperature Pulse Rate 94 H 85 79 Respiratory Rate 18 16 14 Blood Pressure 108/46 L 104/43 L 116/52 L Pulse Oximetry 93 L 93 L 95 02/05/18 03:46 02/05/18 04:00 02/05/18 05:00 Temperature 98.6 F Pulse Rate 81 87 Respiratory Rate 16 14 22 Blood Pressure 117/52 L 114/57 L Pulse Oximetry 95 94 L 02/05/18 06:00 02/05/18 07:00 02/05/18 08:00 Temperature 103.2 F H Pulse Rate 91 H 98 H 87 Respiratory Rate 20 27 H 19 Blood Pressure 103/42 L 116/47 L 100/42 L Pulse Oximetry 93 L 94 L 94 L 02/05/18 08:07 02/05/18 09:00 02/05/18 10:00 Temperature Pulse Rate 87 101 H Respiratory Rate 17 16 20 Blood Pressure 86/39 L Pulse Oximetry 94 L 97 91 L 02/05/18 10:10 02/05/18 10:52 02/05/18 11:00 Temperature Pulse Rate 96 H 101 H Respiratory Rate 18 26 H 42 H Blood Pressure 101/52 L Pulse Oximetry 92 L 95 91 L 02/05/18 11:45 02/05/18 12:00 02/05/18 12:15 Temperature 101.4 F H Pulse Rate 95 H 108 H 128 H Respiratory Rate 46 H 42 H 38 H Blood Pressure 149/88 H 110/65 120/67 Pulse Oximetry 86 L 92 L 92 L 02/05/18 12:30 02/05/18 12:59 Temperature Pulse Rate 128 H Respiratory Rate 48 H Blood Pressure 126/66 Pulse Oximetry 89 L 93 L Intake & Output 02/04/18 02/05/18 02/05/18 18:59 06:59 18:59 Intake Total 2356.66 / 2356.66 2325 / 2325 392 / 392 Output Total 4600 / 4600 900 / 900 Balance -2243.34 / -2243.34 1425 / 1425 392 / 392 Weight 86 kg Intake: IV 1510.66 / 1510.66 1450 / 1450 50 / 50 Precedex Inj 1,000 MCG In NS 250 / 250 500 / 500 Inj 240 ML @ 0.2 MCG/KG/HR 4.17 mls/hr IV.CONT TITRATE PRN Rx# :[id number] Heparin/D5W 25,000 U/250 mL 25, 250 / 250 250 / 250 000 unit In 250 ml @ Per Protocol IV.CONT TITRATE PRN Rx #:[id number] Versed Inj 50 mg In 50 ml @ 2 150 / 150 150 / 150 MG/HR 2 mls/hr IV.CONT TITRATE PRN Rx#:[id number] Magnesium Sulfate Inj 4 GM In 100 / 100 NS Inj 92 ML @ 25 mls/hr IV.SIG ONCE ONE Rx#:[id number] Zosyn 2.25 GM Premix 50 ML @ 50 / 50 50 / 50 50 / 50 100 mls/hr IV.SIG Q8H GERMAINE Rx#: [id number] KCl 40 mEq Premix Inj 40 meq In 100 / 100 100 ml @ 25 mls/hr IV.SIG ONCE ONE Rx#:[id number] Potassium Phosphate Inj 30 MMOL 260 / 260 In NS Inj 250 ML @ 43.333 mls/ hr IV.SIG ONCE ONE Rx#:[id number] Thiamine Inj 30 MG In NS Inj 50 100.66 / 100.66 ML @ 201.2 mls/hr IV.SIG Q8H GERMAINE Rx#:[id number] fentaNYL 10 mcg/mL Premix Drip 250 / 250 500 / 500 2,500 mcg In 250 ml @ 50 MCG/HR 5 mls/hr IV.SIG TITRATE PRN Rx #:[id number] Oral 342 / 342 Tube Feeding 446 / 446 425 / 425 Tube Irrigant 50 / 50 Water Bolus Amount 400 / 400 400 / 400 Output: Urine Amount (Catheter) 4600 / 4600 900 / 900 Indwelling Urethral Catheter 4600 / 4600 900 / 900 Other: Date of Last Bowel Movement 02/04/18 02/05/18 # Bowel Movements 1 1 - Constitutional moderate distress - Routine HEENT Exam Head: Present: normocephalic Eye: Present: EOMI - Routine Respiratory Exam Present: rales, respiratory distress, rhonchi - Routine Cardiovascular Exam Present: tachycardia - Routine Abdominal Exam Present: soft, normoactive bowel sounds - Routine Extremities Exam Present: edema - Urinary Catheter Management Coude Cath placed during this visit: yes, but has since been removed by the nurse Reason for continuing: Decision to DC catheter Insertion date: 01/28/18 Insertion time: 13:15 Removal date: 02/03/18 Removal time: 15:15 Straight Cath placed during this visit: yes, but has since been removed by the nurse Reason for continuing: Acute urinary retention Insertion date: 02/04/18 Insertion time: 07:00 Removal date: 02/04/18 Indwelling Urethral Catheter Cath placed during this visit: yes Reason for continuing: Acute urinary retention Insertion date: 02/04/18 Insertion time: 07:00 Assessment and Plan - Assessment (1) Acute kidney failure Code(s): N17.9 - Acute kidney failure, unspecified Status: Acute Plan: Most likely suffered ATN. Creatinine is improving. Creatinine has declined His fluid status is still positive. Blood pressure better. Limit IV infusions. Added free water to tube feeding. Repeat labs daily. Creatinine declined patient is extubated Continue to replace potassium as needed. Replace phosphorus as needed. Avoid nephrotoxic agents. Dr. Ruby follow-up (2) Hypokalemia Code(s): E87.6 - Hypokalemia Status: Acute Plan: Continue to monitor (3) Cardiomyopathy Code(s): I42.9 - Cardiomyopathy, unspecified Status: Acute Plan: Troponin is high, cardiology following. Alcohol induced cardiomyopathy is a possibility. He also had CPR. Also could be secondary to chronic hypokalemia. Agree with thiamine infusion. (4) Acid-base imbalance Code(s): E87.4 - Mixed disorder of acid-base balance Status: Acute Plan: Improving. Management per engine assembler.
[2018-02-05 15:48] LABS: Creatinine 24 Hour,Urine 1.24 gm/24hr (0.63-2.50)
[2018-02-05 16:23] LABS: Calcium 7.7 mg/dL (8.5-10.1); Carbon Dioxide 20.2 meq/L (21.0-32.0); Magnesium 2.5 mg/dL (1.5-2.5); Phosphorus 4.7 mg/dL (2.5-4.9); Potassium 6.1 meq/L (3.5-5.1)
[2018-02-05] MEDS ORDERED: Propofol Inj 500 MG/50 ML Vial ONE (17:19)
[2018-02-05] MEDS ORDERED: Etomidate Inj 40 MG/20 ML Vial IV.PUSH ONE (17:22)
[2018-02-05] MEDS ORDERED: HYDROmorphone PF Inj 2 MG/ML Vial IV.PUSH ONE (17:45)
--- NOTE | 2018-02-05 17:57 | P.PCN ---
Date of procedure: 02/05/18 Pre-op diagnosis: Acute hypoxic respiratory failure Post-op diagnosis: same Procedure: Endotracheal intubation The patient was identified by name and MRN on hospital ID band and time-out performed. The patient was pre-oxygenated with high-flow nasal cannula. He was given etomidate, dilaudid, and rocuronium for RSI (see MAR for details). He was positioned appropriately and an 8-0 ETT was placed without difficulty using Glidescope. The tube placement was confirmed with color change capnometry, bilateral breath sounds, improvement in O2 sats, and direct visualization with bronchoscope (please see separate bronch procedure note). He tolerated the procedure with no immediate complications. Surgeon: Marian Cee Condition: stable Disposition: ICU
--- NOTE | 2018-02-05 18:01 | P.PCN ---
Date of procedure: 02/05/18 Pre-op diagnosis: Acute hypoxic respiratory failure Post-op diagnosis: same Procedure: The patient was extubated earlier today, noted to have continued tachypnea and weak cough. Aggressive pulmonary hygiene was performed by myself, RTs, and RNs but the patient appeared to be fatiguing so the decision was made to re- intubate. Procedure: Fiberoptic bronchoscopy Patient was identified by armband prior to procedure and the ventilator was placed on 100% FiO2. Time out taken. Patient was appropriately sedated with dilaudid and etomidate. Please refer to MAR for dosages. Bronchoscope introduced into patient's endotracheal tube. Endotracheal tube was positioned at 26 cm at the teeth and appeared to be at the level of the matt; the tube was subsequently backed up to 24 cm. Upon visualization of the matt, no secretions or abnormalities were noted. Right mainstem bronchus was identified first by landmarks and scant secretions were irrigated/ suctioned from below the 2nd bifurcation of bronchi. Left mainstem bronchus was intubated with bronchoscope and mild to moderate amount of secretions were irrigated and suctioned. No significant aspirated contents or mucous plugging was noted. Airway appeared healthy and pink. No lesions were identified. Patient tolerated procedure well without desaturation. Continue with ventilatory support with current settings. Chest x-ray to be obtained stat. Aggressive pulmonary hygiene. Surgeon: Marian Cee Condition: stable Disposition: ICU
--- NOTE | 2018-02-05 18:13 | XR ---
EXAM DATE: 02/05/2018 6:09 PM EDT AGE/SEX: 32 years / Male INDICATIONS: S/P reintubation. CLINICAL DATA: This is the patient's initial encounter. Patient reports that signs and symptoms have been present for 1 day and indicates a pain score of Nonresponsive. MEDICAL/SURGICAL HISTORY: Pancreatitis. None. COMPARISON: [facility], CHEST 1V SINGLE AP, 02/04/2018. . FINDINGS: The endotracheal tube and nasogastric tube are both in good position. Mild infiltrate right lung base improved from the previous study. Mild pulmonary vascular prominence. Heart is normal in transverse diameter. No visible pneumothorax. CONCLUSION: ET tube is in excellent position. Lungs still mostly clear Electronically signed by: Blue Verduzco MD 02/05/2018 6:12 PM EDT
[2018-02-05 19:38] LABS: ABG Base Excess -7.4 mmol/L (-2-2); ABG PCO2 39 mmHg (38-42); ABG PO2 291 mmHG (61-120)
[2018-02-05] MEDS: Propofol 1000 mg/100 ml Inj 1,000 MG/100 ML BOTTLE IV.CONT PRN (22:27)
[2018-02-05 22:42] LABS: Calcium 7.9 mg/dL (8.5-10.1); Carbon Dioxide 21.7 meq/L (21.0-32.0); Potassium 5.6 meq/L (3.5-5.1)
[2018-02-06] MEDS: Propofol 1000 mg/100 ml Inj 1,000 MG/100 ML BOTTLE IV.CONT PRN ×7 (01:41→23:56)
[2018-02-06 02:26] LABS: ABG Base Excess -6.7 mmol/L (-2-2); ABG PCO2 39 mmHg (38-42); ABG PO2 129 mmHG (61-120)
--- NOTE | 2018-02-06 02:27 | XR ---
EXAM DATE: 02/06/2018 2:16 AM EDT AGE/SEX: 32 years / Male INDICATIONS: Worsening respiratory distress and fever. CLINICAL DATA: This is the patient's subsequent encounter. Patient reports that signs and symptoms h ave been present for 1 week and indicates a pain score of Nonresponsive. MEDICAL/SURGICAL HISTORY: . Alcohol abuse. Depression. Pancreatitis. Seizures None. COMPARISON: [facility], CHEST 1V SINGLE AP, 02/05/2018. . FINDINGS: Endotracheal tube in good position. Nasogastric tube enters stomach. Minimal subsegmental basilar air space disease. No effusion or pneumothorax. CONCLUSION: Subsegmental airspace disease improved from February 05. Endotracheal tube and nasogastric tube in go od position. Electronically signed by: Gatito Angel MD 02/06/2018 2:25 AM EDT
[2018-02-06] MEDS: Insulin NovoLOG Aspart Correctional Sugar Inj SQ SCH ×6 (02:41→20:18)
[2018-02-06] MEDS: Oral Hygiene Kit OROPHARYNG SCH ×4 (02:42→15:53)
[2018-02-06] MEDS ORDERED: Vancomycin Inj 1,500 MG in Sodium Chlor 0.9% Inj 500 ML IV.SIG ONE (02:58)
[2018-02-06] MEDS ORDERED: HYDROmorphone PF Inj 2 MG/ML Vial IV.PUSH ONE (04:00)
[2018-02-06 04:03] LABS: Amorphous Sediment,Urine Occasional /hpf; Bacteria,Urine Rare /hpf; Bilirubin,Urine Negative (Negative); Clarity,Urine Cloudy (Clear); Color,Urine Amber (Yellw/Straw); Glucose,Urine (UA) Negative (Negative); Hyaline Casts,Urine 1 /lpf (0-3); Leukocyte Esterase,Urine Negative (Negative); Mucus,Urine Few /lpf (Occasional); Nitrite,Urine Negative (Negative); Specific Gravity,Urine 1.021 (1.002-1.035); Squamous Epithelial Cell,Urine 1 /hpf (0-5)
--- NOTE | 2018-02-06 04:57 | CT ---
EXAM DATE: 02/06/2018 4:54 AM EDT AGE/SEX: 32 years / Male INDICATIONS: Altered mental status. CLINICAL DATA: This is the patient's initial encounter. Patient reports that signs and symptoms have been present for 1 day and indicates a pain score of 0/10. MEDICAL/SURGICAL HISTORY: Pancreatitis. Seizures. alcohol abuse None. RADIATION DOSE: 64.63 CTDI (mGy) COMPARISON: [facility] [place], CT HEAD W/O CONTRAST, 01/28/2018. . TECHNIQUE: CT of the head without contrast. Using automated exposure control and adjustment of the mA and/or kV according to patient size, radiation dose was kept as low as reasonably achievable to ob tain optimal diagnostic quality images. DICOM format image data is available electronically for revi ew and comparison. FINDINGS: Cerebrum: The ventricles are normal for age. No evidence of midline shift, mass lesion, hemorrhage or acute infarction. No extraaxial fluid collections are seen. Posterior Fossa: The cerebellum and brainstem are intact. The 4th ventricle is midline. The cerebe llopontine angle is unremarkable. Extracranial: The visualized portion of the orbits is intact. Skull: The calvaria is intact. No evidence of skull fracture. CONCLUSION: 1. No acute intracranial abnormalities. . Electronically signed by: Gatito Angel MD 02/06/2018 4:56 AM EDT
[2018-02-06 06:41] LABS: Baso # (Auto) 0.2 th/mm3 (0.0-0.2); Baso % (Auto) 0.6 % (0.0-2.0); Eos # (Auto) 0.1 th/mm3 (0.0-0.4); Eos % (Auto) 0.2 % (0.0-4.0); Hematocrit 26.4 % (39.0-51.0); Lymph # (Auto) 1.6 th/mm3 (1.0-4.8); Lymph % (Auto) 4.3 % (9.0-44.0); Mean Corpuscular Hemoglobin 33.6 pg (27.0-34.0); Mean Corpuscular Volume 110.5 fL (80.0-100.0); Mean Platelet Volume 9.1 fL (7.0-11.0); Mono # (Auto) 1.4 th/mm3 (0.0-0.9); Mono % (Auto) 3.8 % (0.0-8.0); Neut # (Auto) 33.8 th/mm3 (1.8-7.7); Neut % (Auto) 91.1 % (16.0-70.0); Platelet Count 207 th/mm3 (150-450); Red Blood Count 2.38 mil/mm3 (4.50-5.90); Red Cell Distribution Width 17.2 % (11.6-17.2); White Blood Count 37.1 th/mm3 (4.0-11.0)
[2018-02-06 06:43] LABS: Mean Corpuscular HGB Conc 30.4 % (32.0-36.0)
[2018-02-06 07:11] LABS: Calcium 7.5 mg/dL (8.5-10.1); Carbon Dioxide 18.2 meq/L (21.0-32.0); Magnesium 2.1 mg/dL (1.5-2.5); Phosphorus 4.8 mg/dL (2.5-4.9); Potassium 5.8 meq/L (3.5-5.1)
[2018-02-06 08:13] LABS: Eosinophils 2 % (0-4); Lymphocytes 3 % (9-44); Monocytes 4 % (0-8); Plasma Cells 1 % (0-0)
[2018-02-06 08:15] LABS: Platelet Estimate Normal (Normal); Platelet Morphology Normal (Normal); Toxic Granulation 2+
--- NOTE | 2018-02-06 09:10 | P.PNNP ---
Subjective Interval history: He has been reintubated. Has a rectal tube. Has a Nance catheter. Non oliguric. He now has developed hyperkalemia. Neurologically, he is not responding much. On Propofol and Fentanyl drips. Physical Exam Vital signs: Vital Signs 02/05/18 10:00 02/05/18 10:10 02/05/18 10:52 Temperature Pulse Rate 101 H 96 H Respiratory Rate 20 18 26 H Blood Pressure 101/52 L Pulse Oximetry 91 L 92 L 95 02/05/18 11:00 02/05/18 11:45 02/05/18 12:00 Temperature 101.4 F H Pulse Rate 101 H 95 H 108 H Respiratory Rate 42 H 46 H 42 H Blood Pressure 149/88 H 110/65 Pulse Oximetry 91 L 86 L 92 L 02/05/18 12:15 02/05/18 12:30 02/05/18 12:45 Temperature Pulse Rate 128 H 128 H 139 H Respiratory Rate 38 H 48 H 47 H Blood Pressure 120/67 126/66 140/75 Pulse Oximetry 92 L 89 L 92 L 02/05/18 12:59 02/05/18 13:00 02/05/18 13:15 Temperature Pulse Rate 122 H 111 H Respiratory Rate 41 H 39 H Blood Pressure 105/55 L 93/51 L Pulse Oximetry 93 L 92 L 92 L 02/05/18 13:30 02/05/18 13:45 02/05/18 14:00 Temperature Pulse Rate 116 H 122 H 118 H Respiratory Rate 44 H 44 H 50 H Blood Pressure 105/56 L 113/56 L Pulse Oximetry 93 L 93 L 97 02/05/18 14:03 02/05/18 14:35 02/05/18 15:00 Temperature Pulse Rate 117 H 124 H 124 H Respiratory Rate 58 H 48 H 49 H Blood Pressure 120/63 121/70 115/70 Pulse Oximetry 97 93 L 92 L 02/05/18 15:31 02/05/18 16:00 02/05/18 16:30 Temperature 102.4 F H Pulse Rate 132 H 137 H 140 H Respiratory Rate 56 H 54 H 57 H Blood Pressure 152/95 H 137/79 148/87 H Pulse Oximetry 96 100 100 02/05/18 17:00 02/05/18 17:09 02/05/18 17:31 Temperature Pulse Rate 143 H 144 H 138 H Respiratory Rate 55 H 60 H 58 H Blood Pressure 155/100 H 154/82 H 182/84 H Pulse Oximetry 100 100 98 02/05/18 17:55 02/05/18 18:00 02/05/18 18:39 Temperature Pulse Rate 135 H Respiratory Rate 14 19 Blood Pressure 149/77 H Pulse Oximetry 98 100 98 02/05/18 19:00 02/05/18 20:00 02/05/18 20:32 Temperature 98.8 F Pulse Rate 116 H 108 H Respiratory Rate 20 20 23 Blood Pressure 103/57 L Pulse Oximetry 99 99 98 02/05/18 21:00 02/05/18 22:00 02/05/18 23:00 Temperature Pulse Rate 108 H 111 H 106 H Respiratory Rate 26 H 30 H 25 H Blood Pressure 105/58 L 109/66 103/58 L Pulse Oximetry 99 98 96 02/06/18 00:00 02/06/18 00:31 02/06/18 01:00 Temperature 102.8 F H Pulse Rate 113 H 114 H Respiratory Rate 31 H 30 H 22 Blood Pressure 111/70 109/52 L Pulse Oximetry 98 97 02/06/18 02:00 02/06/18 03:00 02/06/18 04:00 Temperature 99.8 F H Pulse Rate 97 H 87 114 H Respiratory Rate 16 14 25 H Blood Pressure 90/52 L 96/55 L 122/66 Pulse Oximetry 98 99 98 02/06/18 04:47 02/06/18 05:00 02/06/18 06:00 Temperature Pulse Rate 96 H 86 Respiratory Rate 14 14 14 Blood Pressure 98/51 L 103/59 L Pulse Oximetry 96 97 99 02/06/18 08:00 Temperature Pulse Rate Respiratory Rate 17 Blood Pressure Pulse Oximetry 97 Intake & Output 02/05/18 02/06/18 02/06/18 18:59 06:59 18:59 Intake Total 1682 / 1682 750 / 750 Output Total 1550 / 1550 550 / 550 Balance 132 / 132 200 / 200 Weight 84.6 kg Intake: IV 940 / 940 300 / 300 Precedex Inj 1,000 MCG In NS 110 / 110 Inj 240 ML @ 0.2 MCG/KG/HR 4.17 mls/hr IV.CONT TITRATE PRN Rx# :[id number] Versed Inj 50 mg In 50 ml @ 2 40 / 40 MG/HR 2 mls/hr IV.CONT TITRATE PRN Rx#:[id number] Diprivan 1000 mg/100 ml Inj 1, 200 / 200 000 mg In 100 ml @ 5 MCG/KG/MIN 2.58 mls/hr IV.CONT TITRATE PRN Rx#:[id number] Maxipime Inj 2,000 MG In NS Inj 100 / 100 100 ML @ 200 mls/hr IV.SIG Q12H GERMAINE Rx#:[id number] Magnesium Sulfate Inj 4 GM In 110 / 110 D5W Inj 100 ML @ 25 mls/hr IV. SIG ONCE ONE Rx#:[id number] Zosyn 2.25 GM Premix 50 ML @ 50 / 50 100 mls/hr IV.SIG Q8H GERMAINE Rx#: [id number] KCl 40 mEq Premix Inj 40 meq In 200 / 200 100 ml @ 25 mls/hr IV.SIG Q4H GERMAINE Rx#:[id number] Potassium Phosphate Inj 30 MMOL 260 / 260 In NS Inj 250 ML @ 43.333 mls/ hr IV.SIG ONCE ONE Rx#:[id number] fentaNYL 10 mcg/mL Premix Drip 170 / 170 2,500 mcg In 250 ml @ 50 MCG/HR 5 mls/hr IV.SIG TITRATE PRN Rx #:[id number] Oral 342 / 342 Tube Irrigant 50 / 50 Water Bolus Amount 400 / 400 400 / 400 Output: Stool 600 / 600 200 / 200 Urine Amount (Catheter) 950 / 950 350 / 350 Indwelling Urethral Catheter 950 / 950 350 / 350 Other: Date of Last Bowel Movement 02/05/18 # Bowel Movements 2 Narrative: GENERAL: on the vent. Frail, muscle wasting. NECK: No carotid bruits. No JVD. CARDIOVASCULAR: Regular rate and rhythm. No murmur appreciated. RESPIRATORY: Mechanically ventilated. Coarse breath sounds. MUSCULOSKELETAL: No clubbing or cyanosis. No edema. NEUROLOGICAL: Intubated, sedated. - Urinary Catheter Management Coude Cath placed during this visit: yes, but has since been removed by the nurse Reason for continuing: Decision to DC catheter Insertion date: 01/28/18 Insertion time: 13:15 Removal date: 02/03/18 Removal time: 15:15 Straight Cath placed during this visit: yes, but has since been removed by the nurse Reason for continuing: Acute urinary retention Insertion date: 02/04/18 Insertion time: 07:00 Removal date: 02/04/18 Indwelling Urethral Catheter Cath placed during this visit: yes Reason for continuing: Acute urinary retention Insertion date: 02/04/18 Insertion time: 07:00 Assessment and Plan - Assessment (1) Acute kidney failure Code(s): N17.9 - Acute kidney failure, unspecified Status: Acute Plan: Most likely suffered ATN. Renal function has improved. Monitor. Avoid nephrotoxic agents. (2) Hypokalemia Code(s): E87.6 - Hypokalemia Status: Acute Plan: Patient is now hyperkalemic. Treat with insulin and dextrose. Repeat levels later today. (3) Cardiomyopathy Code(s): I42.9 - Cardiomyopathy, unspecified Status: Acute Plan: Troponin is high, cardiology following. Alcohol induced cardiomyopathy is a possibility. He also had CPR. Also could be secondary to chronic hypokalemia. Agree with thiamine infusion.
[2018-02-06] MEDS ORDERED: Sodium Polystyrene Sulfonate/Sorbitol Liq 15 GM/60 ML UDC PO ONE (09:23)
[2018-02-06] MEDS ORDERED: Vancomycin Consult Pharmacy OTHER PRN (09:25)
[2018-02-06] MEDS ORDERED: Albumin Human 5% Inj 500 ML IV.SIG STA (09:29)
--- NOTE | 2018-02-06 09:38 | P.PNCC ---
Subjective Subjective Remarks/Hospital Course: Hospital Course: This is a 32-year-old male. Admission 01/28/2018. Past medical history includes seizure disorder/noncompliant with levetiracetam, previous EtOH sober for 4 weeks, anorexia, gastroesophageal reflux disease and chronic pancreatitis. Patient presented to [facility] 01/28/2018 with a two-day history of nausea vomiting and diarrhea. Patient's mother/discussed at bedside stated she had just had a "stomach flu" which she has currently recovered. Mom states that the patient has become fairly dehydrated is been having some cramping of his hands. She is worried that he is getting dehydrated and his potassium might begin low. He was unable to tolerate a banana so she gave him some potassium pills p.o. which she also did not tolerate and threw up. Sober 4 weeks according to mother. Patient was noted to have a low potassium at 2.0. Creatinine of 4.0. This is in line with his previous hospitalizations for acute dehydration. Lipase was slightly elevated. Patient does have a history of seizure disorder which is not compliant with levetiracetam. ED physician was called into room because the RN believed he had a seizure. Patient was unresponsive. Mother states this was not like any seizure that she had seen. Pulses not palpable therefore CPR was initiated. Initial rhythm was V. fib. Patient received amiodarone, lidocaine, epinephrine, bicarbonate, magnesium during the 35 minute code with return of spontaneous circulation after 35 minutes. Pupils are about 9 mils bilaterally and 6. When I saw the patient patient was actively thrashing moving all 4 extremities spontaneously but not to command. Pupils are round 8 mm bilaterally and nonreactive. Brain CT revealed no acute findings. CT thorax revealed a left upper and lower lobe. CT abdomen pelvis pending at time of dictation. Likely, troponin pending. EKG revealed incomplete right bundle block with ST depression in the inferior and lateral leads. Cardiology consulted. They will evaluate after stat echocardiogram and troponins been completed. Potassium will be replaced pending BMP Subjective: 01/29: persistently in shock. following commands this AM. trop uptrended overnight and now > 40. on levo @ 10, vasopressin. bedside echo with persistence of his global severe LV systolic dysfunction. IVC dilated without respiratory variation. initially attempted therapeutic hypothermia, but became arrhythmogenic and neurologic exam improved and now following commands, so hypothermia aborted. persistently hypokalemic and hypophosphatemic this AM. in addition, remains with severe metabolic alkalosis. 01/30: Troponin trending down, continues to have severe hypokalemia and metabolic alkalosis. Creatinine continues to trend up, only produced 200 cc of urine over the past 24 hours. 01/31: Patient seen by nephrology yesterday and given bumex, urine output dramatically increased, potassium improved with aggressive repletion, pressors now off and dobutamine at 5. 02/01: No issues overnight. Patient tolerated dobutamine at 2 yesterday, discontinued this morning. Switching propofol to precedex and would like to start SBTs today. Overall improved. 02/02: Tolerated switch to precedex yesterday and was on bipap 05/06 for several hours yesterday afternoon, placed back on AC overnight to avoid respiratory fatigue. 02/03: Patient had no overnight events, tolerated SBT x 5 hours yesterday. Significantly agitated this morning during sedation vacation. 02/04: Patient still struggles with agitation when we lighten sedation. 02/05: Temp 103F this morning, no obvious source of infection. Needs to have PICC line placed today. 02/06: reintubated yesterday. overnight persistently febrile. this morning appears in distress- tachypneic on the ventilator, acidotic. potassium up to 5.8 despite medical management. bedside echo with improving LVEF and completely collapsed IVC. no pericardial effusion. lung ultrasound without effusions. Objective Vital Signs / I&O: Vital Signs 02/05/18 10:00 02/05/18 10:10 02/05/18 10:52 Temperature Pulse Rate 101 H 96 H Respiratory Rate 20 18 26 H Blood Pressure 101/52 L Pulse Oximetry 91 L 92 L 95 02/05/18 11:00 02/05/18 11:45 02/05/18 12:00 Temperature 38.6 C H Pulse Rate 101 H 95 H 108 H Respiratory Rate 42 H 46 H 42 H Blood Pressure 149/88 H 110/65 Pulse Oximetry 91 L 86 L 92 L 02/05/18 12:15 02/05/18 12:30 02/05/18 12:45 Temperature Pulse Rate 128 H 128 H 139 H Respiratory Rate 38 H 48 H 47 H Blood Pressure 120/67 126/66 140/75 Pulse Oximetry 92 L 89 L 92 L 02/05/18 12:59 02/05/18 13:00 02/05/18 13:15 Temperature Pulse Rate 122 H 111 H Respiratory Rate 41 H 39 H Blood Pressure 105/55 L 93/51 L Pulse Oximetry 93 L 92 L 92 L 02/05/18 13:30 02/05/18 13:45 02/05/18 14:00 Temperature Pulse Rate 116 H 122 H 118 H Respiratory Rate 44 H 44 H 50 H Blood Pressure 105/56 L 113/56 L Pulse Oximetry 93 L 93 L 97 02/05/18 14:03 02/05/18 14:35 02/05/18 15:00 Temperature Pulse Rate 117 H 124 H 124 H Respiratory Rate 58 H 48 H 49 H Blood Pressure 120/63 121/70 115/70 Pulse Oximetry 97 93 L 92 L 02/05/18 15:31 02/05/18 16:00 02/05/18 16:30 Temperature 39.1 C H Pulse Rate 132 H 137 H 140 H Respiratory Rate 56 H 54 H 57 H Blood Pressure 152/95 H 137/79 148/87 H Pulse Oximetry 96 100 100 02/05/18 17:00 02/05/18 17:09 02/05/18 17:31 Temperature Pulse Rate 143 H 144 H 138 H Respiratory Rate 55 H 60 H 58 H Blood Pressure 155/100 H 154/82 H 182/84 H Pulse Oximetry 100 100 98 02/05/18 17:55 02/05/18 18:00 02/05/18 18:39 Temperature Pulse Rate 135 H Respiratory Rate 14 19 Blood Pressure 149/77 H Pulse Oximetry 98 100 98 02/05/18 19:00 02/05/18 20:00 02/05/18 20:32 Temperature 37.1 C Pulse Rate 116 H 108 H Respiratory Rate 20 20 23 Blood Pressure 103/57 L Pulse Oximetry 99 99 98 02/05/18 21:00 02/05/18 22:00 02/05/18 23:00 Temperature Pulse Rate 108 H 111 H 106 H Respiratory Rate 26 H 30 H 25 H Blood Pressure 105/58 L 109/66 103/58 L Pulse Oximetry 99 98 96 02/06/18 00:00 02/06/18 00:31 02/06/18 01:00 Temperature 39.3 C H Pulse Rate 113 H 114 H Respiratory Rate 31 H 30 H 22 Blood Pressure 111/70 109/52 L Pulse Oximetry 98 97 02/06/18 02:00 02/06/18 03:00 02/06/18 04:00 Temperature 37.7 C H Pulse Rate 97 H 87 114 H Respiratory Rate 16 14 25 H Blood Pressure 90/52 L 96/55 L 122/66 Pulse Oximetry 98 99 98 02/06/18 04:47 02/06/18 05:00 02/06/18 06:00 Temperature Pulse Rate 96 H 86 Respiratory Rate 14 14 14 Blood Pressure 98/51 L 103/59 L Pulse Oximetry 96 97 99 02/06/18 08:00 Temperature Pulse Rate Respiratory Rate 17 Blood Pressure Pulse Oximetry 97 Intake & Output 02/05/18 02/06/18 02/06/18 18:59 06:59 18:59 Intake Total 1682 / 1682 750 / 750 Output Total 1550 / 1550 550 / 550 Balance 132 / 132 200 / 200 Weight 84.6 kg Intake: IV 940 / 940 300 / 300 Precedex Inj 1,000 MCG In NS 110 / 110 Inj 240 ML @ 0.2 MCG/KG/HR 4.17 mls/hr IV.CONT TITRATE PRN Rx# :[id number] Versed Inj 50 mg In 50 ml @ 2 40 / 40 MG/HR 2 mls/hr IV.CONT TITRATE PRN Rx#:[id number] Diprivan 1000 mg/100 ml Inj 1, 200 / 200 000 mg In 100 ml @ 5 MCG/KG/MIN 2.58 mls/hr IV.CONT TITRATE PRN Rx#:[id number] Maxipime Inj 2,000 MG In NS Inj 100 / 100 100 ML @ 200 mls/hr IV.SIG Q12H GERMAINE Rx#:[id number] Magnesium Sulfate Inj 4 GM In 110 / 110 D5W Inj 100 ML @ 25 mls/hr IV. SIG ONCE ONE Rx#:[id number] Zosyn 2.25 GM Premix 50 ML @ 50 / 50 100 mls/hr IV.SIG Q8H GERMAINE Rx#: [id number] KCl 40 mEq Premix Inj 40 meq In 200 / 200 100 ml @ 25 mls/hr IV.SIG Q4H GERMAINE Rx#:[id number] Potassium Phosphate Inj 30 MMOL 260 / 260 In NS Inj 250 ML @ 43.333 mls/ hr IV.SIG ONCE ONE Rx#:[id number] fentaNYL 10 mcg/mL Premix Drip 170 / 170 2,500 mcg In 250 ml @ 50 MCG/HR 5 mls/hr IV.SIG TITRATE PRN Rx #:[id number] Oral 342 / 342 Tube Irrigant 50 / 50 Water Bolus Amount 400 / 400 400 / 400 Output: Stool 600 / 600 200 / 200 Urine Amount (Catheter) 950 / 950 350 / 350 Indwelling Urethral Catheter 950 / 950 350 / 350 Other: Date of Last Bowel Movement 02/05/18 # Bowel Movements 2 Result Diagrams: 02/06/18 06:05 02/06/18 06:05 Objective Remarks: GENERAL: Intubated, sedated HEENT: NCAT, ETT NECK: Trachea midline CHEST: tachypneic. in distress. prvc. fio2 50%. CARDIOVASCULAR: tachycardic rate, regular rhythm. sinus. ABDOMEN: Soft, non-tender in all quadrants, no rebound MUSCULOSKELETAL: Warm and well perfused, improved trace peripheral edema NEUROLOGICAL: RASS -3, withdraws to pain, does not follow commands. Assessment and Plan - Assessment and Plan Plan: Assessment: 32-year-old male with history of EtOH abuse and chronic pancreatitis who presents with severe hypokalemia, dehydration, and cardiac arrest; found to have significant cardiomyopathy/ cardiogenic shock and acute kidney injury. Now s/p recent extubation and re-intubation for recurrent hypoxic respiratory failure. now back in septic shock and clinically worse today. critically ill. will continue broad spectrum antibiotics, ivf resuscitation, and supportive care. f/u cultures. will need tracheostomy for ongoing rehabilitation efforts as he has failed trial of extubation and is now quite ill. Neuro/Psych: Seizure disorder NOS History of EtOH sober 4 weeks History of anorexia/bulimia Acute metabolic encephalopathy Sedated on propofol, fentanyl. Goal of RASS -2 Continue keppra 500 BID (home dose) Home seroquel Patient has a previous history of heavy EtOH abuse and bulimia as per mother-- continue thiamine/ folate supplementation Delirium precautions- lights on/ shades up during the day, limit nighttime disruptions, frequent reorientation to environment CV: In-hospital cardiac arrest V. fib arrest Cardiogenic Shock-- resolved Severe LV systolic dysfunction- resolving. Septic shock Plan is still for cardiac perfusion study when creatinine improves Echo 01/28: severe LV systolic dysfunction, EF 20-25%. mildly depressed RV function. no valvular lesions. heparin drip on hold due to bleeding continue daily ASA. Continued PO thiamine supplementation for ? beriberi on bedside echo, appears intravascularly deplete, likely secondary to early septic shock. will give 500cc 5% albumin and start ivf with bicarbonate to assist with acidosis. Resp: Acute hypoxic respiratory failure- recurrent. Left upper/lower lobe pulmonary infiltrates-- improving Extubated 02/05, reintubated 02/05 for respiratory failure will need tracheostomy. vent bundle hob elevated nebs wean fio2 for goal spo2 > 90% send sputum culture Chest PT, pulmonary hygiene GI: Elevated lipase/mild pancreatitis-- resolved Left hepatic pneumobilia history of chronic pancreatitis C. Difficile Colitis restart tube feeds. PO pantoprazole for GI prophylaxis Docusate serum/senna 1 tablet twice daily for bowel regimen Renal/ : Acute kidney injury-- improving, slowly Nance replaced 02/04. continue for accurate i/o's. Creatinine peaked around 6, continues to improve, but slowly. hold further diuresis. Nephrology following Endo: Sliding scale insulin with Accu-Cheks to maintain euglycemia aspart insulin every 6 hours, IV dextrose as needed for hypoglycemia Heme: Leukocytosis-- worsening. Macrocytic anemia- stable Mild coagulopathy Monitor CBC daily. Follow trends. ID: Septic shock C. Difficile Colitis Blood cultures on 01/28 and 01/31 showed coagulase negative staph hominis, likely contamination Sputum, UA and influenza all NGTD s/p zosyn for 7 days to treat pneumonia, d/c on 02/05 repeat blood cultures 02/05 pending send sputum culture urine culture 02/05 pending started on PO Vanc 02/05 add iv flagyl given clinical decompensation continue cefepime continue vancomycin FEN: Hyperkalemia severe life-threatening hypophosphatemia- resolved severe metabolic alkalosis- worsening. hyperkalemia persists despite medical management. will add bicarbonate infusion and single dose of kayexalate. recheck K. MSK: PT evaluate and treat Access: - 01/29 - 02/05 right SC TLC - vascular access team declined to place PICC line 02/05. still needs PICC for access, but will await 48h negative cultures. - 02/04 Nance for urinary retention Prophylaxis -GI-pantoprazole -DVT SCD/heparin drip on hold due to bleeding. will restart SQH for prophylaxis Counseling/ Coordination of Care: Total critical care time: 57 minutes. This includes examining the patient, gathering history from someone other than the patient (i.e., chart review), discussing the patient's care with other providers, managing the patient's blood pressure and ventilator settings, ordering and interpreting laboratory studies, managing the patient's pain and sedation requirements, re-evaluation at frequent intervals, and documentation. All critical care time is separate and exclusive of procedures, teaching, and patient/ family updates.
[2018-02-06] MEDS: Chlorhexidine 0.12% Oral Kit 15 ML UDC OROPHARYNG SCH ×2 (10:04→20:19)
[2018-02-06] MEDS: fentaNYL 10 mcg/mL Premix Drip 2,500 MCG/250 ML BAG IV.SIG PRN ×2 (10:08→18:00)
[2018-02-06] MEDS: Pantoprazole Inj 40 MG Vial IV.PUSH SCH (10:10)
[2018-02-06] MEDS: levETIRAcetam 500 MG Tablet NG/OG SCH ×2 (10:14→20:20)
[2018-02-06] MEDS: Senna/Docusate Sodium 8.6/50 MG Tablet PO SCH ×2 (10:14→20:21)
[2018-02-06] MEDS: QUEtiapine 100 MG Tablet NG/OG SCH ×2 (10:14→20:21)
[2018-02-06] MEDS: Aspirin 325 MG Tablet PO SCH (10:15)
[2018-02-06] MEDS: Sodium Bicarbonate 8.4% Inj 150 MEQ in Water for Inj, Sterile 850 ML IV.CONT SCH ×2 (11:55→23:55)
[2018-02-06] MEDS: Heparin - SQ 10,000 UNITS/ML Vial SQ SCH (20:19)
[2018-02-07] MEDS: Oral Hygiene Kit OROPHARYNG SCH ×4 (00:08→16:05)
[2018-02-07] MEDS: Insulin NovoLOG Aspart Correctional Sugar Inj SQ SCH ×6 (00:09→21:29)
[2018-02-07] MEDS: Propofol 1000 mg/100 ml Inj 1,000 MG/100 ML BOTTLE IV.CONT PRN ×4 (03:13→19:25)
[2018-02-07] MEDS: fentaNYL 10 mcg/mL Premix Drip 2,500 MCG/250 ML BAG IV.SIG PRN ×2 (03:56→12:54)
[2018-02-07 06:00] LABS: Baso # (Auto) 0.2 th/mm3 (0.0-0.2); Baso % (Auto) 0.9 % (0.0-2.0); Eos # (Auto) 0.2 th/mm3 (0.0-0.4); Eos % (Auto) 0.8 % (0.0-4.0); Lymph # (Auto) 1.1 th/mm3 (1.0-4.8); Lymph % (Auto) 4.5 % (9.0-44.0); Mean Corpuscular HGB Conc 32.6 % (32.0-36.0); Mean Corpuscular Hemoglobin 34.3 pg (27.0-34.0); Mean Corpuscular Volume 105.1 fL (80.0-100.0); Mean Platelet Volume 9.2 fL (7.0-11.0); Mono # (Auto) 0.8 th/mm3 (0.0-0.9); Mono % (Auto) 3.1 % (0.0-8.0); Neut # (Auto) 22.4 th/mm3 (1.8-7.7); Neut % (Auto) 90.7 % (16.0-70.0); Platelet Count 186 th/mm3 (150-450); Red Blood Count 1.93 mil/mm3 (4.50-5.90); Red Cell Distribution Width 16.5 % (11.6-17.2); White Blood Count 24.7 th/mm3 (4.0-11.0)
[2018-02-07 06:16] LABS: Calcium 7.7 mg/dL (8.5-10.1); Carbon Dioxide 23.3 meq/L (21.0-32.0); Magnesium 1.7 mg/dL (1.5-2.5); Phosphorus 3.9 mg/dL (2.5-4.9); Potassium 3.6 meq/L (3.5-5.1)
[2018-02-07 06:18] LABS: Hematocrit 20.3 % (39.0-51.0); Hemoglobin 6.6 gm/dL (13.0-17.0)
[2018-02-07] MEDS: Pantoprazole Inj 40 MG Vial IV.PUSH SCH (08:25)
[2018-02-07] MEDS: Heparin - SQ 10,000 UNITS/ML Vial SQ SCH ×2 (08:25→21:31)
[2018-02-07] MEDS: levETIRAcetam 500 MG Tablet NG/OG SCH ×2 (08:26→21:30)
[2018-02-07] MEDS: QUEtiapine 100 MG Tablet NG/OG SCH ×2 (08:26→21:30)
[2018-02-07] MEDS: Aspirin 325 MG Tablet PO SCH (08:26)
[2018-02-07] MEDS: Senna/Docusate Sodium 8.6/50 MG Tablet PO SCH ×2 (08:27→21:32)
[2018-02-07] MEDS: Chlorhexidine 0.12% Oral Kit 15 ML UDC OROPHARYNG SCH ×2 (08:27→21:30)
--- NOTE | 2018-02-07 10:39 | P.PNNP ---
Subjective Interval history: patient is intubated. Renal function is better. Hyperkalemia has resolved. Physical Exam Vital signs: Vital Signs 02/06/18 10:45 02/06/18 11:00 02/06/18 11:15 Temperature Pulse Rate 122 H 116 H 110 H Respiratory Rate 19 18 16 Blood Pressure 116/60 112/57 L Pulse Oximetry 92 L 94 L 95 02/06/18 11:30 02/06/18 11:45 02/06/18 11:50 Temperature Pulse Rate 101 H 97 H Respiratory Rate 14 15 18 Blood Pressure 106/52 L 104/54 L Pulse Oximetry 96 96 98 02/06/18 12:00 02/06/18 12:15 02/06/18 12:30 Temperature 100.4 F H Pulse Rate 97 H 103 H 104 H Respiratory Rate 15 16 18 Blood Pressure 101/54 L 126/70 125/73 Pulse Oximetry 95 93 L 94 L 02/06/18 12:45 02/06/18 13:00 02/06/18 13:15 Temperature Pulse Rate 108 H 121 H 119 H Respiratory Rate 19 33 H 26 H Blood Pressure 134/75 159/119 H 153/75 H Pulse Oximetry 94 L 99 97 02/06/18 13:30 02/06/18 13:45 02/06/18 14:00 Temperature Pulse Rate 121 H 121 H 125 H Respiratory Rate 26 H 24 24 Blood Pressure 149/76 H 146/74 H 144/70 H Pulse Oximetry 96 97 96 02/06/18 14:15 02/06/18 14:30 02/06/18 14:45 Temperature Pulse Rate 122 H 118 H 117 H Respiratory Rate 26 H 20 19 Blood Pressure 147/76 H 128/63 122/61 Pulse Oximetry 97 98 98 02/06/18 15:00 02/06/18 15:15 02/06/18 15:30 Temperature Pulse Rate 122 H 117 H 113 H Respiratory Rate 23 16 15 Blood Pressure 135/71 131/69 117/57 L Pulse Oximetry 98 99 99 02/06/18 15:45 02/06/18 16:00 02/06/18 16:15 Temperature 100.4 F H Pulse Rate 107 H 110 H 105 H Respiratory Rate 15 15 14 Blood Pressure 112/58 L 121/64 109/55 L Pulse Oximetry 98 99 99 02/06/18 16:30 02/06/18 16:45 02/06/18 17:00 Temperature Pulse Rate 100 H 99 H 98 H Respiratory Rate 14 13 14 Blood Pressure 111/55 L 106/58 L 109/53 L Pulse Oximetry 100 99 99 02/06/18 17:04 02/06/18 17:15 02/06/18 17:30 Temperature Pulse Rate 103 H 99 H Respiratory Rate 16 14 14 Blood Pressure 122/63 107/52 L Pulse Oximetry 100 100 99 02/06/18 17:45 02/06/18 18:00 02/06/18 18:01 Temperature Pulse Rate 96 H 110 H 110 H Respiratory Rate 14 22 22 Blood Pressure 108/56 L 135/80 Pulse Oximetry 99 96 95 02/06/18 18:15 02/06/18 18:30 02/06/18 18:45 Temperature Pulse Rate 107 H 105 H 105 H Respiratory Rate 18 15 16 Blood Pressure 130/68 130/72 120/65 Pulse Oximetry 96 97 97 02/06/18 19:00 02/06/18 19:15 02/06/18 19:30 Temperature Pulse Rate 104 H 107 H 115 H Respiratory Rate 13 13 19 Blood Pressure 117/59 L 121/69 138/77 Pulse Oximetry 99 99 98 02/06/18 19:45 02/06/18 20:00 02/06/18 20:15 Temperature 101.2 F H Pulse Rate 112 H 109 H 115 H Respiratory Rate 23 26 H 24 Blood Pressure 140/73 132/73 138/78 Pulse Oximetry 98 98 99 02/06/18 20:30 02/06/18 20:45 02/06/18 20:58 Temperature Pulse Rate 126 H 121 H Respiratory Rate 33 H 23 28 H Blood Pressure 156/84 H 148/78 H Pulse Oximetry 94 L 99 100 02/06/18 21:00 02/06/18 21:15 02/06/18 21:30 Temperature Pulse Rate 119 H 119 H 118 H Respiratory Rate 44 H 22 20 Blood Pressure 147/74 H 139/68 138/68 Pulse Oximetry 98 99 100 02/06/18 21:45 02/06/18 22:00 02/06/18 22:16 Temperature Pulse Rate 118 H 132 H 122 H Respiratory Rate 17 27 H 21 Blood Pressure 134/72 158/81 H 146/68 H Pulse Oximetry 100 100 98 02/06/18 22:30 02/06/18 22:45 02/06/18 23:00 Temperature Pulse Rate 126 H 124 H 121 H Respiratory Rate 23 24 21 Blood Pressure 146/72 H 142/72 H 139/71 Pulse Oximetry 99 97 98 02/06/18 23:15 02/06/18 23:30 02/06/18 23:42 Temperature Pulse Rate 122 H 125 H Respiratory Rate 23 21 18 Blood Pressure 133/72 148/73 H Pulse Oximetry 98 99 98 02/06/18 23:45 02/07/18 00:00 02/07/18 00:15 Temperature 101.1 F H Pulse Rate 117 H 121 H 122 H Respiratory Rate 18 22 20 Blood Pressure 132/68 147/76 H 146/75 H Pulse Oximetry 98 100 97 02/07/18 00:30 02/07/18 00:45 02/07/18 01:00 Temperature Pulse Rate 124 H 132 H 117 H Respiratory Rate 19 23 19 Blood Pressure 134/72 133/65 124/64 Pulse Oximetry 97 97 97 02/07/18 01:15 02/07/18 01:30 02/07/18 01:45 Temperature Pulse Rate 122 H 115 H 114 H Respiratory Rate 19 14 14 Blood Pressure 131/64 120/59 L 132/59 L Pulse Oximetry 98 99 99 02/07/18 02:00 02/07/18 02:15 02/07/18 02:30 Temperature Pulse Rate 127 H 127 H 124 H Respiratory Rate 31 H 18 16 Blood Pressure 147/77 H 139/70 121/75 Pulse Oximetry 97 100 98 02/07/18 02:45 02/07/18 03:00 02/07/18 03:15 Temperature Pulse Rate 120 H 116 H 115 H Respiratory Rate 14 13 12 Blood Pressure 134/74 134/76 131/69 Pulse Oximetry 99 99 100 02/07/18 03:30 02/07/18 03:45 02/07/18 03:47 Temperature Pulse Rate 111 H 107 H Respiratory Rate 13 13 17 Blood Pressure 136/71 124/57 L Pulse Oximetry 100 100 100 02/07/18 04:00 02/07/18 04:15 02/07/18 04:30 Temperature 101 F H Pulse Rate 127 H 119 H 115 H Respiratory Rate 31 H 15 14 Blood Pressure 140/85 139/73 133/66 Pulse Oximetry 100 99 99 02/07/18 04:45 02/07/18 05:00 02/07/18 05:15 Temperature Pulse Rate 111 H 107 H 109 H Respiratory Rate 13 12 13 Blood Pressure 123/60 117/58 L 118/56 L Pulse Oximetry 100 100 100 02/07/18 05:30 02/07/18 05:45 02/07/18 06:00 Temperature Pulse Rate 110 H 108 H 105 H Respiratory Rate 12 13 13 Blood Pressure 125/64 115/56 L 117/60 Pulse Oximetry 100 100 100 02/07/18 06:15 02/07/18 06:30 02/07/18 06:45 Temperature Pulse Rate 105 H 107 H 101 H Respiratory Rate 12 14 13 Blood Pressure 118/61 122/65 112/58 L Pulse Oximetry 100 100 100 02/07/18 07:00 02/07/18 07:15 02/07/18 07:30 Temperature Pulse Rate 109 H 108 H 103 H Respiratory Rate 17 17 14 Blood Pressure 144/77 H 121/69 115/59 L Pulse Oximetry 92 L 98 98 02/07/18 07:45 02/07/18 08:00 02/07/18 08:10 Temperature Pulse Rate 117 H 113 H Respiratory Rate 17 14 19 Blood Pressure 143/76 H 130/69 Pulse Oximetry 97 02/07/18 08:15 02/07/18 08:30 02/07/18 08:45 Temperature Pulse Rate 124 H 114 H 109 H Respiratory Rate 22 17 13 Blood Pressure 149/78 H 135/75 121/62 Pulse Oximetry 99 98 98 02/07/18 09:00 02/07/18 09:15 02/07/18 09:30 Temperature Pulse Rate 107 H 104 H 105 H Respiratory Rate 13 11 L 10 L Blood Pressure 115/59 L 117/63 117/57 L Pulse Oximetry 98 98 98 02/07/18 09:45 02/07/18 10:00 02/07/18 10:17 Temperature 99.9 F H Pulse Rate 103 H 103 H 107 H Respiratory Rate 11 L 13 18 Blood Pressure 117/59 L 109/59 L 131/77 Pulse Oximetry 97 97 92 L Intake & Output 02/06/18 02/07/18 02/07/18 18:59 06:59 18:59 Intake Total 2536 / 2536 2022 / 2022 100 / 100 Output Total 1025 / 1025 1300 / 1300 Balance 1511 / 1511 723 / 723 100 / 100 Weight 85.5 kg Intake: IV 2115 / 2115 1850 / 1850 100 / 100 Heparin/D5W 25,000 U/250 mL 25, 0 / 0 000 unit In 250 ml @ Per Protocol IV.CONT TITRATE PRN Rx #:[id number] Diprivan 1000 mg/100 ml Inj 1, 300 / 300 300 / 300 100 / 100 000 mg In 100 ml @ 5 MCG/KG/MIN 2.58 mls/hr IV.CONT TITRATE PRN Rx#:[id number] Sodium Bicarbonate 8.4% Inj 150 1000 / 1000 MEQ In Sterile Water for Inj 850 ML @ 84 mls/hr IV.CONT . [id number] GERMAINE Rx#:[id number] Alburx 5% Inj 500 ML @ 250 mls/ 500 / 500 hr IV.SIG STAT STA Rx#:[id number] Maxipime Inj 2,000 MG In NS Inj 100 / 100 100 / 100 100 ML @ 200 mls/hr IV.SIG Q12H GERMAINE Rx#:[id number] Vancomycin Inj 1,500 MG In NS 515 / 515 Inj 500 ML @ 250 mls/hr IV.SIG ONCE ONE Rx#:[id number] fentaNYL 10 mcg/mL Premix Drip 500 / 500 250 / 250 2,500 mcg In 250 ml @ 50 MCG/HR 5 mls/hr IV.SIG TITRATE PRN Rx #:[id number] Flagyl 500 MG Inj 100 ML @ 100 200 / 200 200 / 200 mls/hr IV.SIG Q6H GERMAINE Rx#: [id number] Tube Feeding 41 / 41 113 / 113 Tube Irrigant 180 / 180 Water Bolus Amount 200 / 200 60 / 60 Output: Stool 300 / 300 300 / 300 Urine Amount (Catheter) 725 / 725 1000 / 1000 Indwelling Urethral Catheter 725 / 725 1000 / 1000 Other: Date of Last Bowel Movement 02/06/18 02/06/18 02/07/18 Narrative: GENERAL: on the vent. Frail, muscle wasting. NECK: No carotid bruits. No JVD. CARDIOVASCULAR: Regular rate and rhythm. No murmur appreciated. RESPIRATORY: Mechanically ventilated. Coarse breath sounds. MUSCULOSKELETAL: No clubbing or cyanosis. No edema. NEUROLOGICAL: Intubated, sedated. - Urinary Catheter Management Coude Cath placed during this visit: yes, but has since been removed by the nurse Reason for continuing: Decision to DC catheter Insertion date: 01/28/18 Insertion time: 13:15 Removal date: 02/03/18 Removal time: 15:15 Straight Cath placed during this visit: yes, but has since been removed by the nurse Reason for continuing: Acute urinary retention Insertion date: 02/04/18 Insertion time: 07:00 Removal date: 02/04/18 Indwelling Urethral Catheter Cath placed during this visit: yes Reason for continuing: Acute urinary retention Insertion date: 02/04/18 Insertion time: 07:00 Assessment and Plan - Assessment (1) Acute kidney failure Code(s): N17.9 - Acute kidney failure, unspecified Status: Acute Plan: Most likely suffered ATN. Renal function has improved. Monitor. Avoid nephrotoxic agents. No need for bicarbonate drip. Start 1/2 NS. Noted to have hypernatremia. (2) Hypokalemia Code(s): E87.6 - Hypokalemia Status: Acute Plan: Resolved. (3) Cardiomyopathy Code(s): I42.9 - Cardiomyopathy, unspecified Status: Acute Plan: Troponin is high, cardiology following. Alcohol induced cardiomyopathy is a possibility.
[2018-02-07] MEDS ORDERED: Sodium Chloride 0.45 % Inj 1,000 ML IV.CONT SCH (10:45)
[2018-02-07] MEDS ORDERED: Vancomycin Inj 1,500 MG in Sodium Chlor 0.9% Inj 500 ML IV.SIG ONE (12:00)
[2018-02-07] MEDS ORDERED: Magnesium Sulfate Inj 2 GM in Sodium Chlor 0.9% Inj 96 ML IV.SIG ONE (12:00)
[2018-02-07] MEDS: Midazolam 50 MG/50 ML Inj 50 MG/50 ML BAG IV.CONT PRN (14:00)
--- NOTE | 2018-02-07 15:06 | P.DIET ---
Nutritional Evaluation Type of nutrition evaluation: follow-up Nutrition consult regarding: Tube Feeding Subjective Subjective Comments: N/V/D prior to admission. Objective - Diagnosis Vomitting - Objective % IBW: 99 (IBW = 166#) Body Weight Used for Calculations: Actual (75 kg) Energy Needs - Lower Range (kCal/kg): 25 Energy Needs - Upper Range (kCal/kg): 30 Lower Limit kCal/kg (kCals): 1,875 Upper Limit kCal/kg (kCals): 2,250 Lower Limit Protein Factor (Grams per Kg): 0.7 Upper Limit Protein Factor (Grams per Kg): 1.0 Lower Protein Needs (Protein): 53 Upper Protein Needs (Protein): 75 Dietitian Reviewed in Medical Record: Curent medications, Intake & Output, Labs , Medical history, Tube feeding Diet Order: NPO Objective Comments: Labs: K wnl, Na 146, creat 1.65 Assessment Assessment: Pt is at high nutrition risk 2' to Dx and his need for TFing. He was extubated but needed to be re-intubated on 02/05. Current order is for Suplena @ 50 mls/hr goal per RD's revious recs. Labs and clinical course reviewed: it is noted that [employer] Inspector indicates improved renal fxn and labs confirm this. Pt can be changed to a standard formula now. Recommend Jevity 1.5 @ 60 mls/hr to provide 2160 kcals, 92 gms protein and 1094 mls of free water. Some additional kcals will be provided by propofol (1.1 kcal/ml). Currently receiving 26 mls/hr of propofol which provides 686 kcals. Recommendations: With improved renal fxn recommend Jevity 1.5 @ 60 mls/hr goal Dietitian to Monitor: Lab values, Renal labs, Tube feeding tolerance, Weight change, Medical course
[2018-02-07 17:02] LABS: Hematocrit 24.6 % (39.0-51.0); Hemoglobin 8.1 gm/dL (13.0-17.0); Mean Corpuscular Hemoglobin 33.8 pg (27.0-34.0); Mean Corpuscular Volume 102.4 fL (80.0-100.0); Mean Platelet Volume 9.3 fL (7.0-11.0); Platelet Count 204 th/mm3 (150-450); Red Cell Distribution Width 17.7 % (11.6-17.2); White Blood Count 19.5 th/mm3 (4.0-11.0)
--- NOTE | 2018-02-07 17:41 | P.PNCC ---
Subjective Subjective Remarks/Hospital Course: Hospital Course: This is a 32-year-old male. Admission 01/28/2018. Past medical history includes seizure disorder/noncompliant with levetiracetam, previous EtOH sober for 4 weeks, anorexia, gastroesophageal reflux disease and chronic pancreatitis. Patient presented to [facility] 01/28/2018 with a two-day history of nausea vomiting and diarrhea. Patient's mother/discussed at bedside stated she had just had a "stomach flu" which she has currently recovered. Mom states that the patient has become fairly dehydrated is been having some cramping of his hands. She is worried that he is getting dehydrated and his potassium might begin low. He was unable to tolerate a banana so she gave him some potassium pills p.o. which she also did not tolerate and threw up. Sober 4 weeks according to mother. Patient was noted to have a low potassium at 2.0. Creatinine of 4.0. This is in line with his previous hospitalizations for acute dehydration. Lipase was slightly elevated. Patient does have a history of seizure disorder which is not compliant with levetiracetam. ED physician was called into room because the RN believed he had a seizure. Patient was unresponsive. Mother states this was not like any seizure that she had seen. Pulses not palpable therefore CPR was initiated. Initial rhythm was V. fib. Patient received amiodarone, lidocaine, epinephrine, bicarbonate, magnesium during the 35 minute code with return of spontaneous circulation after 35 minutes. Pupils are about 9 mils bilaterally and 6. When I saw the patient patient was actively thrashing moving all 4 extremities spontaneously but not to command. Pupils are round 8 mm bilaterally and nonreactive. Brain CT revealed no acute findings. CT thorax revealed a left upper and lower lobe. CT abdomen pelvis pending at time of dictation. Likely, troponin pending. EKG revealed incomplete right bundle block with ST depression in the inferior and lateral leads. Cardiology consulted. They will evaluate after stat echocardiogram and troponins been completed. Potassium will be replaced pending BMP Subjective: 01/29: persistently in shock. following commands this AM. trop uptrended overnight and now > 40. on levo @ 10, vasopressin. bedside echo with persistence of his global severe LV systolic dysfunction. IVC dilated without respiratory variation. initially attempted therapeutic hypothermia, but became arrhythmogenic and neurologic exam improved and now following commands, so hypothermia aborted. persistently hypokalemic and hypophosphatemic this AM. in addition, remains with severe metabolic alkalosis. 01/30: Troponin trending down, continues to have severe hypokalemia and metabolic alkalosis. Creatinine continues to trend up, only produced 200 cc of urine over the past 24 hours. 01/31: Patient seen by nephrology yesterday and given bumex, urine output dramatically increased, potassium improved with aggressive repletion, pressors now off and dobutamine at 5. 02/01: No issues overnight. Patient tolerated dobutamine at 2 yesterday, discontinued this morning. Switching propofol to precedex and would like to start SBTs today. Overall improved. 02/02: Tolerated switch to precedex yesterday and was on bipap 05/06 for several hours yesterday afternoon, placed back on AC overnight to avoid respiratory fatigue. 02/03: Patient had no overnight events, tolerated SBT x 5 hours yesterday. Significantly agitated this morning during sedation vacation. 02/04: Patient still struggles with agitation when we lighten sedation. 02/05: Temp 103F this morning, no obvious source of infection. Needs to have PICC line placed today. 02/06: reintubated yesterday. overnight persistently febrile. this morning appears in distress- tachypneic on the ventilator, acidotic. potassium up to 5.8 despite medical management. bedside echo with improving LVEF and completely collapsed IVC. no pericardial effusion. lung ultrasound without effusions. 02/07: Remains sedated, orally intubated on mechanical ventilation. On propofol fentanyl and Versed drips. Transfuse 1 unit PRBCs earlier today for drop in hemoglobin. Objective Vital Signs / I&O: Vital Signs 02/06/18 17:45 02/06/18 18:00 02/06/18 18:01 Temperature Pulse Rate 96 H 110 H 110 H Respiratory Rate 14 22 22 Blood Pressure 108/56 L 135/80 Pulse Oximetry 99 96 95 02/06/18 18:15 02/06/18 18:30 02/06/18 18:45 Temperature Pulse Rate 107 H 105 H 105 H Respiratory Rate 18 15 16 Blood Pressure 130/68 130/72 120/65 Pulse Oximetry 96 97 97 02/06/18 19:00 02/06/18 19:15 02/06/18 19:30 Temperature Pulse Rate 104 H 107 H 115 H Respiratory Rate 13 13 19 Blood Pressure 117/59 L 121/69 138/77 Pulse Oximetry 99 99 98 02/06/18 19:45 02/06/18 20:00 02/06/18 20:15 Temperature 101.2 F H Pulse Rate 112 H 109 H 115 H Respiratory Rate 23 26 H 24 Blood Pressure 140/73 132/73 138/78 Pulse Oximetry 98 98 99 02/06/18 20:30 02/06/18 20:45 02/06/18 20:58 Temperature Pulse Rate 126 H 121 H Respiratory Rate 33 H 23 28 H Blood Pressure 156/84 H 148/78 H Pulse Oximetry 94 L 99 100 02/06/18 21:00 02/06/18 21:15 02/06/18 21:30 Temperature Pulse Rate 119 H 119 H 118 H Respiratory Rate 44 H 22 20 Blood Pressure 147/74 H 139/68 138/68 Pulse Oximetry 98 99 100 02/06/18 21:45 02/06/18 22:00 02/06/18 22:16 Temperature Pulse Rate 118 H 132 H 122 H Respiratory Rate 17 27 H 21 Blood Pressure 134/72 158/81 H 146/68 H Pulse Oximetry 100 100 98 02/06/18 22:30 02/06/18 22:45 02/06/18 23:00 Temperature Pulse Rate 126 H 124 H 121 H Respiratory Rate 23 24 21 Blood Pressure 146/72 H 142/72 H 139/71 Pulse Oximetry 99 97 98 02/06/18 23:15 02/06/18 23:30 02/06/18 23:42 Temperature Pulse Rate 122 H 125 H Respiratory Rate 23 21 18 Blood Pressure 133/72 148/73 H Pulse Oximetry 98 99 98 02/06/18 23:45 02/07/18 00:00 02/07/18 00:15 Temperature 101.1 F H Pulse Rate 117 H 121 H 122 H Respiratory Rate 18 22 20 Blood Pressure 132/68 147/76 H 146/75 H Pulse Oximetry 98 100 97 02/07/18 00:30 02/07/18 00:45 02/07/18 01:00 Temperature Pulse Rate 124 H 132 H 117 H Respiratory Rate 19 23 19 Blood Pressure 134/72 133/65 124/64 Pulse Oximetry 97 97 97 02/07/18 01:15 02/07/18 01:30 02/07/18 01:45 Temperature Pulse Rate 122 H 115 H 114 H Respiratory Rate 19 14 14 Blood Pressure 131/64 120/59 L 132/59 L Pulse Oximetry 98 99 99 02/07/18 02:00 02/07/18 02:15 02/07/18 02:30 Temperature Pulse Rate 127 H 127 H 124 H Respiratory Rate 31 H 18 16 Blood Pressure 147/77 H 139/70 121/75 Pulse Oximetry 97 100 98 02/07/18 02:45 02/07/18 03:00 02/07/18 03:15 Temperature Pulse Rate 120 H 116 H 115 H Respiratory Rate 14 13 12 Blood Pressure 134/74 134/76 131/69 Pulse Oximetry 99 99 100 02/07/18 03:30 02/07/18 03:45 02/07/18 03:47 Temperature Pulse Rate 111 H 107 H Respiratory Rate 13 13 17 Blood Pressure 136/71 124/57 L Pulse Oximetry 100 100 100 02/07/18 04:00 02/07/18 04:15 02/07/18 04:30 Temperature 101 F H Pulse Rate 127 H 119 H 115 H Respiratory Rate 31 H 15 14 Blood Pressure 140/85 139/73 133/66 Pulse Oximetry 100 99 99 02/07/18 04:45 02/07/18 05:00 02/07/18 05:15 Temperature Pulse Rate 111 H 107 H 109 H Respiratory Rate 13 12 13 Blood Pressure 123/60 117/58 L 118/56 L Pulse Oximetry 100 100 100 02/07/18 05:30 02/07/18 05:45 02/07/18 06:00 Temperature Pulse Rate 110 H 108 H 105 H Respiratory Rate 12 13 13 Blood Pressure 125/64 115/56 L 117/60 Pulse Oximetry 100 100 100 02/07/18 06:15 02/07/18 06:30 02/07/18 06:45 Temperature Pulse Rate 105 H 107 H 101 H Respiratory Rate 12 14 13 Blood Pressure 118/61 122/65 112/58 L Pulse Oximetry 100 100 100 02/07/18 07:00 02/07/18 07:15 02/07/18 07:30 Temperature Pulse Rate 109 H 108 H 103 H Respiratory Rate 17 17 14 Blood Pressure 144/77 H 121/69 115/59 L Pulse Oximetry 92 L 98 98 02/07/18 07:45 02/07/18 08:00 02/07/18 08:10 Temperature Pulse Rate 117 H 113 H Respiratory Rate 17 14 19 Blood Pressure 143/76 H 130/69 Pulse Oximetry 97 02/07/18 08:15 02/07/18 08:30 02/07/18 08:45 Temperature Pulse Rate 124 H 114 H 109 H Respiratory Rate 22 17 13 Blood Pressure 149/78 H 135/75 121/62 Pulse Oximetry 99 98 98 02/07/18 09:00 02/07/18 09:15 02/07/18 09:30 Temperature Pulse Rate 107 H 104 H 105 H Respiratory Rate 13 11 L 10 L Blood Pressure 115/59 L 117/63 117/57 L Pulse Oximetry 98 98 98 02/07/18 09:45 02/07/18 10:00 02/07/18 10:15 Temperature Pulse Rate 103 H 103 H 108 H Respiratory Rate 11 L 13 21 Blood Pressure 117/59 L 109/59 L 131/77 Pulse Oximetry 97 97 92 L 02/07/18 10:17 02/07/18 10:30 02/07/18 10:45 Temperature 99.9 F H Pulse Rate 107 H 107 H 117 H Respiratory Rate 18 21 15 Blood Pressure 131/77 130/71 133/72 Pulse Oximetry 92 L 94 L 95 02/07/18 11:00 02/07/18 11:15 02/07/18 11:30 Temperature Pulse Rate 118 H 123 H 125 H Respiratory Rate 16 19 19 Blood Pressure 137/72 135/68 135/69 Pulse Oximetry 95 99 99 02/07/18 11:45 02/07/18 11:55 02/07/18 12:00 Temperature 101 F H 100.9 F H Pulse Rate 130 H 124 H 124 H Respiratory Rate 19 17 17 Blood Pressure 131/68 130/71 130/71 Pulse Oximetry 99 100 100 02/07/18 12:15 02/07/18 12:24 02/07/18 12:30 Temperature Pulse Rate 143 H 121 H Respiratory Rate 23 13 Blood Pressure 142/74 H 135/71 Pulse Oximetry 100 100 100 02/07/18 12:45 02/07/18 13:00 02/07/18 13:15 Temperature Pulse Rate 119 H 116 H 109 H Respiratory Rate 14 13 16 Blood Pressure 131/74 131/69 130/68 Pulse Oximetry 100 100 100 02/07/18 13:30 02/07/18 13:45 02/07/18 14:00 Temperature Pulse Rate 105 H 100 H 100 H Respiratory Rate 13 13 13 Blood Pressure 116/56 L 105/56 L 107/57 L Pulse Oximetry 99 99 99 02/07/18 14:15 02/07/18 14:30 02/07/18 14:45 Temperature Pulse Rate 105 H 96 H 96 H Respiratory Rate 17 13 13 Blood Pressure 119/60 99/51 L 103/55 L Pulse Oximetry 96 99 99 02/07/18 15:00 02/07/18 15:15 02/07/18 15:54 Temperature Pulse Rate 93 H 92 H 102 H Respiratory Rate 14 13 20 Blood Pressure 99/55 L 102/52 L 129/69 Pulse Oximetry 99 99 95 02/07/18 16:00 02/07/18 16:15 02/07/18 16:20 Temperature 99.1 F Pulse Rate 106 H 110 H Respiratory Rate 29 H 24 16 Blood Pressure 136/75 135/75 Pulse Oximetry 94 L 94 L 98 Intake & Output 02/06/18 02/07/18 02/07/18 18:59 06:59 18:59 Intake Total 2536 / 2536 2023 / 2023 2165 / 2165 Output Total 1025 / 1025 1300 / 1300 Balance 1511 / 1511 723 / 723 2165 / 2165 Weight 85.5 kg Intake: IV 5 / 2115 1850 / 1850 2165 / 2165 Heparin/D5W 25,000 U/250 mL 25, 0 / 0 000 unit In 250 ml @ Per Protocol IV.CONT TITRATE PRN Rx #:[id number] Diprivan 1000 mg/100 ml Inj 1, 300 / 300 300 / 300 200 / 200 000 mg In 100 ml @ 5 MCG/KG/MIN 2.58 mls/hr IV.CONT TITRATE PRN Rx#:[id number] Sodium Bicarbonate 8.4% Inj 150 1000 / 1000 1000 / 1000 MEQ In Sterile Water for Inj 850 ML @ 84 mls/hr IV.CONT . [id number] GERMAINE Rx#:[id number] Alburx 5% Inj 500 ML @ 250 mls/ 500 / 500 hr IV.SIG STAT STA Rx#:[id number] Maxipime Inj 2,000 MG In NS Inj 100 / 100 100 / 100 100 ML @ 200 mls/hr IV.SIG Q12H [facility] Rx#:[id number] Magnesium Sulfate Inj 2 GM In 100 / 100 NS Inj 96 ML @ 50 mls/hr IV.SIG ONCE ONE Rx#:[id number] Vancomycin Inj 1,500 MG In NS 515 / 515 515 / 515 Inj 500 ML @ 250 mls/hr IV.SIG ONCE ONE Rx#:[id number] fentaNYL 10 mcg/mL Premix Drip 500 / 500 250 / 250 250 / 250 2,500 mcg In 250 ml @ 50 MCG/HR 5 mls/hr IV.SIG TITRATE PRN Rx #:[id number] Flagyl 500 MG Inj 100 ML @ 100 200 / 200 200 / 200 100 / 100 mls/hr IV.SIG Q6H [facility] Rx#: [id number] Tube Feeding 41 / 41 113 / 113 Tube Irrigant 180 / 180 Water Bolus Amount 200 / 200 60 / 60 Output: Stool 300 / 300 300 / 300 Urine Amount (Catheter) 725 / 725 1000 / 1000 Indwelling Urethral Catheter 725 / 725 1000 / 1000 Other: Date of Last Bowel Movement 02/06/18 02/06/18 02/07/18 Result Diagrams: 02/07/18 16:36 02/07/18 04:51 Objective Remarks: GENERAL: Intubated, sedated HEENT: NCAT, ETT NECK: Trachea midline CHEST: tachypneic. in distress. prvc. fio2 50%. CARDIOVASCULAR: tachycardic rate, regular rhythm. sinus. ABDOMEN: Soft, non-tender in all quadrants, no rebound MUSCULOSKELETAL: Warm and well perfused, improved trace peripheral edema NEUROLOGICAL: RASS -3, withdraws to pain, does not follow commands. Assessment and Plan - Assessment and Plan Plan: Assessment: 32-year-old male with history of EtOH abuse and chronic pancreatitis who presents with severe hypokalemia, dehydration, and cardiac arrest; found to have significant cardiomyopathy/ cardiogenic shock and acute kidney injury. Now s/p recent extubation and re-intubation for recurrent hypoxic respiratory failure. now back in septic shock and clinically worse today. critically ill. will continue broad spectrum antibiotics, ivf resuscitation, and supportive care. f/u cultures. will need tracheostomy for ongoing rehabilitation efforts as he has failed trial of extubation and is now quite ill. Neuro/Psych: Seizure disorder NOS History of EtOH sober 4 weeks History of anorexia/bulimia Acute metabolic encephalopathy Sedated on propofol, fentanyl. Goal of RASS -2 Continue keppra 500 BID (home dose) Home seroquel Patient has a previous history of heavy EtOH abuse and bulimia as per mother-- continue thiamine/ folate supplementation Delirium precautions- lights on/ shades up during the day, limit nighttime disruptions, frequent reorientation to environment CV: In-hospital cardiac arrest V. fib arrest Cardiogenic Shock-- resolved Severe LV systolic dysfunction- resolving. Septic shock Plan is still for cardiac perfusion study when creatinine improves Echo 01/28: severe LV systolic dysfunction, EF 20-25%. mildly depressed RV function. no valvular lesions. heparin drip on hold due to bleeding continue daily ASA. Continued PO thiamine supplementation for ? beriberi on bedside echo, appears intravascularly deplete, likely secondary to early septic shock. will give 500cc 5% albumin and start ivf with bicarbonate to assist with acidosis. Resp: Acute hypoxic respiratory failure- recurrent. Left upper/lower lobe pulmonary infiltrates-- improving Extubated 02/05, reintubated 02/05 for respiratory failure will need tracheostomy. vent bundle hob elevated nebs wean fio2 for goal spo2 > 90% send sputum culture Chest PT, pulmonary hygiene GI: Elevated lipase/mild pancreatitis-- resolved Left hepatic pneumobilia history of chronic pancreatitis C. Difficile Colitis restart tube feeds. PO pantoprazole for GI prophylaxis Docusate serum/senna 1 tablet twice daily for bowel regimen Renal/ : Acute kidney injury-- improving, slowly Nance replaced 02/04. continue for accurate i/o's. Creatinine peaked around 6, continues to improve, but slowly. hold further diuresis. Nephrology following Endo: Sliding scale insulin with Accu-Cheks to maintain euglycemia aspart insulin every 6 hours, IV dextrose as needed for hypoglycemia Heme: Leukocytosis-- worsening. Macrocytic anemia- stable Mild coagulopathy Monitor CBC daily. Follow trends. ID: Septic shock C. Difficile Colitis Blood cultures on 01/28 and 01/31 showed coagulase negative staph hominis, likely contamination Sputum, UA and influenza all NGTD s/p zosyn for 7 days to treat pneumonia, d/c on 02/05 repeat blood cultures 02/05 pending send sputum culture urine culture 02/05 pending started on PO Vanc 02/05 add iv flagyl given clinical decompensation continue cefepime continue vancomycin FEN: Hyperkalemia severe life-threatening hypophosphatemia- resolved severe metabolic alkalosis- worsening. hyperkalemia persists despite medical management. will add bicarbonate infusion and single dose of kayexalate. recheck Sheila PROCTORK: PT evaluate and treat Access: - 01/29 - 02/05 right SC TLC - vascular access team declined to place PICC line 02/05. still needs PICC for access, but will await 48h negative cultures. - 02/04 Nance for urinary retention Prophylaxis -GI-pantoprazole -DVT SCD/heparin drip on hold due to bleeding. will restart SQH for prophylaxis Counseling/ Coordination of Care: Total critical care time: 40 minutes. This includes examining the patient, gathering history from someone other than the patient (i.e., chart review), discussing the patient's care with other providers, managing the patient's blood pressure and ventilator settings, ordering and interpreting laboratory studies, managing the patient's pain and sedation requirements, re-evaluation at frequent intervals, and documentation.
[2018-02-08] MEDS: Insulin NovoLOG Aspart Correctional Sugar Inj SQ SCH ×7 (00:02→23:53)
[2018-02-08] MEDS: fentaNYL 10 mcg/mL Premix Drip 2,500 MCG/250 ML BAG IV.SIG PRN ×3 (00:03→20:56)
[2018-02-08] MEDS: Oral Hygiene Kit OROPHARYNG SCH ×5 (00:03→23:41)
[2018-02-08] MEDS: Midazolam 50 MG/50 ML Inj 50 MG/50 ML BAG IV.CONT PRN ×3 (02:43→19:35)
[2018-02-08] MEDS: Propofol 1000 mg/100 ml Inj 1,000 MG/100 ML BOTTLE IV.CONT PRN ×5 (02:59→20:57)
[2018-02-08 04:48] LABS: Baso # (Auto) 0.1 th/mm3 (0.0-0.2); Baso % (Auto) 0.5 % (0.0-2.0); Eos # (Auto) 0.3 th/mm3 (0.0-0.4); Eos % (Auto) 1.8 % (0.0-4.0); Hematocrit 23.5 % (39.0-51.0); Hemoglobin 7.7 gm/dL (13.0-17.0); Lymph % (Auto) 5.8 % (9.0-44.0); Mean Corpuscular HGB Conc 32.9 % (32.0-36.0); Mean Corpuscular Hemoglobin 33.7 pg (27.0-34.0); Mean Corpuscular Volume 102.2 fL (80.0-100.0); Mean Platelet Volume 9.2 fL (7.0-11.0); Mono # (Auto) 0.5 th/mm3 (0.0-0.9); Mono % (Auto) 3.2 % (0.0-8.0); Neut # (Auto) 14.6 th/mm3 (1.8-7.7); Neut % (Auto) 88.7 % (16.0-70.0); Platelet Count 231 th/mm3 (150-450); Red Blood Count 2.29 mil/mm3 (4.50-5.90); Red Cell Distribution Width 17.6 % (11.6-17.2); White Blood Count 16.5 th/mm3 (4.0-11.0)
[2018-02-08 05:13] LABS: Albumin 1.4 g/dL (3.4-5.0); Calcium 8.2 mg/dL (8.5-10.1); Carbon Dioxide 23.4 meq/L (21.0-32.0); Phosphorus 3.3 mg/dL (2.5-4.9); Potassium 3.4 meq/L (3.5-5.1)
[2018-02-08 05:15] LABS: Vancomycin,Random 18.5 Comment
[2018-02-08] MEDS: Chlorhexidine 0.12% Oral Kit 15 ML UDC OROPHARYNG SCH ×2 (08:05→20:47)
[2018-02-08] MEDS: Senna/Docusate Sodium 8.6/50 MG Tablet PO SCH ×2 (08:06→20:46)
[2018-02-08] MEDS: QUEtiapine 100 MG Tablet NG/OG SCH ×2 (08:06→20:46)
[2018-02-08] MEDS: levETIRAcetam 500 MG Tablet NG/OG SCH ×2 (08:06→20:46)
[2018-02-08] MEDS: Aspirin 325 MG Tablet PO SCH (08:06)
[2018-02-08] MEDS: Pantoprazole Inj 40 MG Vial IV.PUSH SCH (08:06)
[2018-02-08] MEDS: Heparin - SQ 10,000 UNITS/ML Vial SQ SCH (08:08)
[2018-02-08] MEDS ORDERED: Sodium Chloride 23.4% Inj 38.5 MEQ in Water for Inj, Sterile 1,000 ML IV.CONT SCH (10:30)
[2018-02-08] MEDS: Dextrose 5%/NaCl 0.45% Inj 1,000 ML IV.SIG SCH (10:40)
--- NOTE | 2018-02-08 11:12 | P.PNNP ---
Subjective Interval history: remains intubated, possible tracheostomy today. PEG may be needed as well. Renal function has improved. Physical Exam Vital signs: Vital Signs 02/07/18 11:15 02/07/18 11:30 02/07/18 11:45 Temperature Pulse Rate 123 H 125 H 130 H Respiratory Rate 19 19 19 Blood Pressure 135/68 135/69 131/68 Pulse Oximetry 99 99 99 02/07/18 11:55 02/07/18 12:00 02/07/18 12:15 Temperature 101 F H 100.9 F H Pulse Rate 124 H 124 H 143 H Respiratory Rate 17 17 23 Blood Pressure 130/71 130/71 142/74 H Pulse Oximetry 100 100 100 02/07/18 12:24 02/07/18 12:30 02/07/18 12:45 Temperature Pulse Rate 121 H 119 H Respiratory Rate 13 14 Blood Pressure 135/71 131/74 Pulse Oximetry 100 100 100 02/07/18 13:00 02/07/18 13:15 02/07/18 13:30 Temperature Pulse Rate 116 H 109 H 105 H Respiratory Rate 13 16 13 Blood Pressure 131/69 130/68 116/56 L Pulse Oximetry 100 100 99 02/07/18 13:45 02/07/18 14:00 02/07/18 14:15 Temperature Pulse Rate 100 H 100 H 105 H Respiratory Rate 13 13 17 Blood Pressure 105/56 L 107/57 L 119/60 Pulse Oximetry 99 99 96 02/07/18 14:30 02/07/18 14:45 02/07/18 15:00 Temperature Pulse Rate 96 H 96 H 93 H Respiratory Rate 13 13 14 Blood Pressure 99/51 L 103/55 L 99/55 L Pulse Oximetry 99 99 99 02/07/18 15:15 02/07/18 15:54 02/07/18 16:00 Temperature 99.1 F Pulse Rate 92 H 102 H 106 H Respiratory Rate 13 20 29 H Blood Pressure 102/52 L 129/69 136/75 Pulse Oximetry 99 95 94 L 02/07/18 16:15 02/07/18 16:20 02/07/18 16:30 Temperature Pulse Rate 110 H 105 H Respiratory Rate 24 16 14 Blood Pressure 135/75 114/60 Pulse Oximetry 94 L 98 97 02/07/18 16:45 02/07/18 17:00 02/07/18 17:15 Temperature Pulse Rate 104 H 101 H 100 H Respiratory Rate 17 13 13 Blood Pressure 106/59 L 102/59 L 106/59 L Pulse Oximetry 97 98 98 02/07/18 17:30 02/07/18 17:45 02/07/18 18:00 Temperature Pulse Rate 96 H 96 H 95 H Respiratory Rate 13 41 H 34 H Blood Pressure 97/55 L 108/60 109/60 Pulse Oximetry 98 98 98 02/07/18 18:15 02/07/18 18:30 02/07/18 18:45 Temperature Pulse Rate 95 H 93 H 94 H Respiratory Rate 36 H 65 H 88 H Blood Pressure 105/57 L 108/58 L 104/58 L Pulse Oximetry 97 98 97 02/07/18 19:00 02/07/18 19:15 02/07/18 19:30 Temperature Pulse Rate 94 H 98 H 101 H Respiratory Rate 81 H 12 15 Blood Pressure 103/55 L 109/64 109/66 Pulse Oximetry 97 97 100 02/07/18 19:45 02/07/18 20:00 02/07/18 20:15 Temperature 98.6 F Pulse Rate 100 H 98 H 91 H Respiratory Rate 12 14 13 Blood Pressure 105/61 103/55 L 91/50 L Pulse Oximetry 99 99 99 02/07/18 20:26 02/07/18 20:30 02/07/18 20:45 Temperature Pulse Rate 89 93 H Respiratory Rate 15 14 13 Blood Pressure 97/55 L 100/59 L Pulse Oximetry 95 98 96 02/07/18 21:00 02/07/18 21:15 02/07/18 21:30 Temperature Pulse Rate 94 H 94 H 91 H Respiratory Rate 9 L 14 13 Blood Pressure 102/58 L 107/59 L 100/56 L Pulse Oximetry 97 97 97 02/07/18 21:45 02/07/18 22:00 02/07/18 22:15 Temperature Pulse Rate 97 H 98 H 101 H Respiratory Rate 16 11 L 13 Blood Pressure 111/66 106/60 113/61 Pulse Oximetry 99 99 97 02/07/18 22:30 02/07/18 22:45 02/07/18 23:00 Temperature Pulse Rate 101 H 100 H 96 H Respiratory Rate 11 L 13 13 Blood Pressure 113/61 104/58 L 99/54 L Pulse Oximetry 97 96 97 02/07/18 23:15 02/07/18 23:28 02/07/18 23:30 Temperature Pulse Rate 97 H 93 H Respiratory Rate 12 17 11 L Blood Pressure 103/57 L 99/55 L Pulse Oximetry 96 97 98 02/07/18 23:45 02/08/18 00:00 02/08/18 00:01 Temperature 99.1 F Pulse Rate 95 H 116 H 116 H Respiratory Rate 14 36 H 36 H Blood Pressure 109/64 139/67 Pulse Oximetry 97 97 97 02/08/18 00:15 02/08/18 00:30 02/08/18 00:46 Temperature Pulse Rate 113 H 108 H 104 H Respiratory Rate 23 14 12 Blood Pressure 128/63 126/63 104/58 L Pulse Oximetry 94 L 94 L 96 02/08/18 01:00 02/08/18 01:15 02/08/18 01:30 Temperature Pulse Rate 101 H 99 H 95 H Respiratory Rate 13 13 13 Blood Pressure 105/55 L 93/50 L 95/53 L Pulse Oximetry 96 96 96 02/08/18 01:45 02/08/18 02:00 02/08/18 02:15 Temperature Pulse Rate 92 H 92 H 96 H Respiratory Rate 13 12 12 Blood Pressure 100/54 L 104/58 L 106/59 L Pulse Oximetry 96 96 96 02/08/18 02:30 02/08/18 02:45 02/08/18 03:00 Temperature Pulse Rate 101 H 101 H 108 H Respiratory Rate 13 12 14 Blood Pressure 115/68 106/59 L 124/69 Pulse Oximetry 97 97 96 02/08/18 03:15 02/08/18 03:30 02/08/18 03:45 Temperature Pulse Rate 106 H 103 H 99 H Respiratory Rate 14 12 11 L Blood Pressure 111/58 L 110/60 102/56 L Pulse Oximetry 96 96 94 L 02/08/18 04:00 02/08/18 04:15 02/08/18 04:30 Temperature 100 F H Pulse Rate 97 H 97 H 97 H Respiratory Rate 14 13 14 Blood Pressure 99/55 L 101/59 L 98/57 L Pulse Oximetry 95 94 L 94 L 02/08/18 04:45 02/08/18 05:00 02/08/18 05:15 Temperature Pulse Rate 94 H 93 H 96 H Respiratory Rate 13 13 13 Blood Pressure 103/56 L 103/55 L 104/57 L Pulse Oximetry 94 L 96 96 02/08/18 05:30 02/08/18 05:45 02/08/18 06:00 Temperature Pulse Rate 98 H 110 H 115 H Respiratory Rate 14 31 H 43 H Blood Pressure 109/61 140/72 136/66 Pulse Oximetry 97 91 L 94 L 02/08/18 08:25 Temperature Pulse Rate Respiratory Rate 14 Blood Pressure Pulse Oximetry 96 Intake & Output 02/07/18 02/08/18 02/08/18 18:59 06:59 18:59 Intake Total 3088 / 3088 1293 / 1293 300 / 300 Output Total 1000 / 1000 850 / 850 Balance 2088 / 2088 443 / 443 300 / 300 Weight 88.5 kg Intake: IV 2465 / 2465 700 / 700 300 / 300 Versed Inj 50 mg In 50 ml @ 2 50 / 50 50 / 50 MG/HR 2 mls/hr IV.CONT TITRATE PRN Rx#:[id number] Diprivan 1000 mg/100 ml Inj 1, 300 / 300 200 / 200 000 mg In 100 ml @ 5 MCG/KG/MIN 2.58 mls/hr IV.CONT TITRATE PRN Rx#:[id number] Sodium Bicarbonate 8.4% Inj 150 1000 / 1000 MEQ In Sterile Water for Inj 850 ML @ 84 mls/hr IV.CONT . [id number] [facility] Rx#:[id number] Maxipime Inj 2,000 MG In NS Inj 100 / 100 100 / 100 100 ML @ 200 mls/hr IV.SIG Q12H [facility] Rx#:[id number] Magnesium Sulfate Inj 2 GM In 100 / 100 NS Inj 96 ML @ 50 mls/hr IV.SIG ONCE ONE Rx#:[id number] Vancomycin Inj 1,500 MG In NS 515 / 515 Inj 500 ML @ 250 mls/hr IV.SIG ONCE ONE Rx#:[id number] fentaNYL 10 mcg/mL Premix Drip 250 / 250 250 / 250 250 / 250 2,500 mcg In 250 ml @ 50 MCG/HR 5 mls/hr IV.SIG TITRATE PRN Rx #:[id number] Flagyl 500 MG Inj 100 ML @ 100 200 / 200 100 / 100 mls/hr IV.SIG Q6H [facility] Rx#: [id number] Tube Feeding 103 / 103 73 / 73 Tube Irrigant 120 / 120 120 / 120 Water Bolus Amount 400 / 400 400 / 400 Output: Stool 100 / 100 Urine Amount (Catheter) 900 / 900 850 / 850 Indwelling Urethral Catheter 900 / 900 850 / 850 Other: Date of Last Bowel Movement 02/07/18 02/07/18 02/08/18 Narrative: GENERAL: on the vent. Frail, muscle wasting. NECK: No carotid bruits. No JVD. CARDIOVASCULAR: Regular rate and rhythm. No murmur appreciated. RESPIRATORY: Mechanically ventilated. Coarse breath sounds. MUSCULOSKELETAL: No clubbing or cyanosis. No edema. NEUROLOGICAL: Intubated, sedated. - Urinary Catheter Management Coude Cath placed during this visit: yes, but has since been removed by the nurse Reason for continuing: Decision to DC catheter Insertion date: 01/28/18 Insertion time: 13:15 Removal date: 02/03/18 Removal time: 15:15 Straight Cath placed during this visit: yes, but has since been removed by the nurse Reason for continuing: Acute urinary retention Insertion date: 02/04/18 Insertion time: 07:00 Removal date: 02/04/18 Indwelling Urethral Catheter Cath placed during this visit: yes Reason for continuing: Acute urinary retention Insertion date: 02/04/18 Insertion time: 07:00 Assessment and Plan - Assessment (1) Acute kidney failure Code(s): N17.9 - Acute kidney failure, unspecified Status: Acute Plan: Most likely suffered ATN. Renal function has improved. Monitor. Avoid nephrotoxic agents. No need for bicarbonate drip. Change IVF to 1/4NS due to persistent hypernatremia. (2) Hypokalemia Code(s): E87.6 - Hypokalemia Status: Acute Plan: Replace potassium as needed. (3) Cardiomyopathy Code(s): I42.9 - Cardiomyopathy, unspecified Status: Acute Plan: Troponin is high, cardiology following. Alcohol induced cardiomyopathy is a possibility.
[2018-02-08] MEDS ORDERED: Midazolam Inj 5 MG/ML 1 ML Vial IV.PUSH ONE (13:24)
[2018-02-08] MEDS ORDERED: fentaNYL Citrate Inj 250 MCG/5 ML Ampul IV.PUSH ONE (13:25)
--- NOTE | 2018-02-08 13:35 | P.PNCC ---
Subjective Subjective Remarks/Hospital Course: Hospital Course: This is a 32-year-old male. Admission 01/28/2018. Past medical history includes seizure disorder/noncompliant with levetiracetam, previous EtOH sober for 4 weeks, anorexia, gastroesophageal reflux disease and chronic pancreatitis. Patient presented to [facility] 01/28/2018 with a two-day history of nausea vomiting and diarrhea. Patient's mother/discussed at bedside stated she had just had a "stomach flu" which she has currently recovered. Mom states that the patient has become fairly dehydrated is been having some cramping of his hands. She is worried that he is getting dehydrated and his potassium might begin low. He was unable to tolerate a banana so she gave him some potassium pills p.o. which she also did not tolerate and threw up. Sober 4 weeks according to mother. Patient was noted to have a low potassium at 2.0. Creatinine of 4.0. This is in line with his previous hospitalizations for acute dehydration. Lipase was slightly elevated. Patient does have a history of seizure disorder which is not compliant with levetiracetam. ED physician was called into room because the RN believed he had a seizure. Patient was unresponsive. Mother states this was not like any seizure that she had seen. Pulses not palpable therefore CPR was initiated. Initial rhythm was V. fib. Patient received amiodarone, lidocaine, epinephrine, bicarbonate, magnesium during the 35 minute code with return of spontaneous circulation after 35 minutes. Pupils are about 9 mils bilaterally and 6. When I saw the patient patient was actively thrashing moving all 4 extremities spontaneously but not to command. Pupils are round 8 mm bilaterally and nonreactive. Brain CT revealed no acute findings. CT thorax revealed a left upper and lower lobe. CT abdomen pelvis pending at time of dictation. Likely, troponin pending. EKG revealed incomplete right bundle block with ST depression in the inferior and lateral leads. Cardiology consulted. They will evaluate after stat echocardiogram and troponins been completed. Potassium will be replaced pending BMP Subjective: 01/29: persistently in shock. following commands this AM. trop uptrended overnight and now > 40. on levo @ 10, vasopressin. bedside echo with persistence of his global severe LV systolic dysfunction. IVC dilated without respiratory variation. initially attempted therapeutic hypothermia, but became arrhythmogenic and neurologic exam improved and now following commands, so hypothermia aborted. persistently hypokalemic and hypophosphatemic this AM. in addition, remains with severe metabolic alkalosis. 01/30: Troponin trending down, continues to have severe hypokalemia and metabolic alkalosis. Creatinine continues to trend up, only produced 200 cc of urine over the past 24 hours. 01/31: Patient seen by nephrology yesterday and given bumex, urine output dramatically increased, potassium improved with aggressive repletion, pressors now off and dobutamine at 5. 02/01: No issues overnight. Patient tolerated dobutamine at 2 yesterday, discontinued this morning. Switching propofol to precedex and would like to start SBTs today. Overall improved. 02/02: Tolerated switch to precedex yesterday and was on bipap 05/06 for several hours yesterday afternoon, placed back on AC overnight to avoid respiratory fatigue. 02/03: Patient had no overnight events, tolerated SBT x 5 hours yesterday. Significantly agitated this morning during sedation vacation. 02/04: Patient still struggles with agitation when we lighten sedation. 02/05: Temp 103F this morning, no obvious source of infection. Needs to have PICC line placed today. 02/06: reintubated yesterday. overnight persistently febrile. this morning appears in distress- tachypneic on the ventilator, acidotic. potassium up to 5.8 despite medical management. bedside echo with improving LVEF and completely collapsed IVC. no pericardial effusion. lung ultrasound without effusions. 02/07: Remains sedated, orally intubated on mechanical ventilation. On propofol fentanyl and Versed drips. Transfuse 1 unit PRBCs earlier today for drop in hemoglobin. 02/08: Remains sedated, orally intubated on mechanical ventilation. On propofol fentanyl and Versed drips. Awaiting tracheostomy which is scheduled for later today. Objective Vital Signs / I&O: Vital Signs 02/07/18 13:45 02/07/18 14:00 02/07/18 14:15 Temperature Pulse Rate 100 H 100 H 105 H Respiratory Rate 13 13 17 Blood Pressure 105/56 L 107/57 L 119/60 Pulse Oximetry 99 99 96 02/07/18 14:30 02/07/18 14:45 02/07/18 15:00 Temperature Pulse Rate 96 H 96 H 93 H Respiratory Rate 13 13 14 Blood Pressure 99/51 L 103/55 L 99/55 L Pulse Oximetry 99 99 99 02/07/18 15:15 02/07/18 15:54 02/07/18 16:00 Temperature 99.1 F Pulse Rate 92 H 102 H 106 H Respiratory Rate 13 20 29 H Blood Pressure 102/52 L 129/69 136/75 Pulse Oximetry 99 95 94 L 02/07/18 16:15 02/07/18 16:20 02/07/18 16:30 Temperature Pulse Rate 110 H 105 H Respiratory Rate 24 16 14 Blood Pressure 135/75 114/60 Pulse Oximetry 94 L 98 97 02/07/18 16:45 02/07/18 17:00 02/07/18 17:15 Temperature Pulse Rate 104 H 101 H 100 H Respiratory Rate 17 13 13 Blood Pressure 106/59 L 102/59 L 106/59 L Pulse Oximetry 97 98 98 02/07/18 17:30 02/07/18 17:45 02/07/18 18:00 Temperature Pulse Rate 96 H 96 H 95 H Respiratory Rate 13 41 H 34 H Blood Pressure 97/55 L 108/60 109/60 Pulse Oximetry 98 98 98 02/07/18 18:15 02/07/18 18:30 02/07/18 18:45 Temperature Pulse Rate 95 H 93 H 94 H Respiratory Rate 36 H 65 H 88 H Blood Pressure 105/57 L 108/58 L 104/58 L Pulse Oximetry 97 98 97 02/07/18 19:00 02/07/18 19:15 02/07/18 19:30 Temperature Pulse Rate 94 H 98 H 101 H Respiratory Rate 81 H 12 15 Blood Pressure 103/55 L 109/64 109/66 Pulse Oximetry 97 97 100 02/07/18 19:45 02/07/18 20:00 02/07/18 20:15 Temperature 98.6 F Pulse Rate 100 H 98 H 91 H Respiratory Rate 12 14 13 Blood Pressure 105/61 103/55 L 91/50 L Pulse Oximetry 99 99 99 02/07/18 20:26 02/07/18 20:30 02/07/18 20:45 Temperature Pulse Rate 89 93 H Respiratory Rate 15 14 13 Blood Pressure 97/55 L 100/59 L Pulse Oximetry 95 98 96 02/07/18 21:00 02/07/18 21:15 02/07/18 21:30 Temperature Pulse Rate 94 H 94 H 91 H Respiratory Rate 9 L 14 13 Blood Pressure 102/58 L 107/59 L 100/56 L Pulse Oximetry 97 97 97 02/07/18 21:45 02/07/18 22:00 02/07/18 22:15 Temperature Pulse Rate 97 H 98 H 101 H Respiratory Rate 16 11 L 13 Blood Pressure 111/66 106/60 113/61 Pulse Oximetry 99 99 97 02/07/18 22:30 02/07/18 22:45 02/07/18 23:00 Temperature Pulse Rate 101 H 100 H 96 H Respiratory Rate 11 L 13 13 Blood Pressure 113/61 104/58 L 99/54 L Pulse Oximetry 97 96 97 02/07/18 23:15 02/07/18 23:28 02/07/18 23:30 Temperature Pulse Rate 97 H 93 H Respiratory Rate 12 17 11 L Blood Pressure 103/57 L 99/55 L Pulse Oximetry 96 97 98 02/07/18 23:45 02/08/18 00:00 02/08/18 00:01 Temperature 99.1 F Pulse Rate 95 H 116 H 116 H Respiratory Rate 14 36 H 36 H Blood Pressure 109/64 139/67 Pulse Oximetry 97 97 97 02/08/18 00:15 02/08/18 00:30 02/08/18 00:46 Temperature Pulse Rate 113 H 108 H 104 H Respiratory Rate 23 14 12 Blood Pressure 128/63 126/63 104/58 L Pulse Oximetry 94 L 94 L 96 02/08/18 01:00 02/08/18 01:15 02/08/18 01:30 Temperature Pulse Rate 101 H 99 H 95 H Respiratory Rate 13 13 13 Blood Pressure 105/55 L 93/50 L 95/53 L Pulse Oximetry 96 96 96 02/08/18 01:45 02/08/18 02:00 02/08/18 02:15 Temperature Pulse Rate 92 H 92 H 96 H Respiratory Rate 13 12 12 Blood Pressure 100/54 L 104/58 L 106/59 L Pulse Oximetry 96 96 96 02/08/18 02:30 02/08/18 02:45 02/08/18 03:00 Temperature Pulse Rate 101 H 101 H 108 H Respiratory Rate 13 12 14 Blood Pressure 115/68 106/59 L 124/69 Pulse Oximetry 97 97 96 02/08/18 03:15 02/08/18 03:30 02/08/18 03:45 Temperature Pulse Rate 106 H 103 H 99 H Respiratory Rate 14 12 11 L Blood Pressure 111/58 L 110/60 102/56 L Pulse Oximetry 96 96 94 L 02/08/18 04:00 02/08/18 04:15 02/08/18 04:30 Temperature 100 F H Pulse Rate 97 H 97 H 97 H Respiratory Rate 14 13 14 Blood Pressure 99/55 L 101/59 L 98/57 L Pulse Oximetry 95 94 L 94 L 02/08/18 04:45 02/08/18 05:00 02/08/18 05:15 Temperature Pulse Rate 94 H 93 H 96 H Respiratory Rate 13 13 13 Blood Pressure 103/56 L 103/55 L 104/57 L Pulse Oximetry 94 L 96 96 02/08/18 05:30 02/08/18 05:45 02/08/18 06:00 Temperature Pulse Rate 98 H 110 H 115 H Respiratory Rate 14 31 H 43 H Blood Pressure 109/61 140/72 136/66 Pulse Oximetry 97 91 L 94 L 02/08/18 08:25 Temperature Pulse Rate Respiratory Rate 14 Blood Pressure Pulse Oximetry 96 Intake & Output 02/07/18 02/08/18 02/08/18 18:59 06:59 18:59 Intake Total 3088 / 3088 1293 / 1293 400 / 400 Output Total 1000 / 1000 850 / 850 Balance 2088 / 2088 443 / 443 400 / 400 Weight 88.5 kg Intake: IV 2465 / 2465 700 / 700 400 / 400 Versed Inj 50 mg In 50 ml @ 2 50 / 50 50 / 50 MG/HR 2 mls/hr IV.CONT TITRATE PRN Rx#:[id number] Diprivan 1000 mg/100 ml Inj 1, 300 / 300 200 / 200 100 / 100 000 mg In 100 ml @ 5 MCG/KG/MIN 2.58 mls/hr IV.CONT TITRATE PRN Rx#:[id number] Sodium Bicarbonate 8.4% Inj 150 1000 / 1000 MEQ In Sterile Water for Inj 850 ML @ 84 mls/hr IV.CONT . [id number] [facility] Rx#:[id number] Maxipime Inj 2,000 MG In NS Inj 100 / 100 100 / 100 100 ML @ 200 mls/hr IV.SIG Q12H [facility] Rx#:[id number] Magnesium Sulfate Inj 2 GM In 100 / 100 NS Inj 96 ML @ 50 mls/hr IV.SIG ONCE ONE Rx#:[id number] Vancomycin Inj 1,500 MG In NS 515 / 515 Inj 500 ML @ 250 mls/hr IV.SIG ONCE ONE Rx#:[id number] fentaNYL 10 mcg/mL Premix Drip 250 / 250 250 / 250 250 / 250 2,500 mcg In 250 ml @ 50 MCG/HR 5 mls/hr IV.SIG TITRATE PRN Rx #:[id number] Flagyl 500 MG Inj 100 ML @ 100 200 / 200 100 / 100 mls/hr IV.SIG Q6H [facility] Rx#: [id number] Tube Feeding 103 / 103 73 / 73 Tube Irrigant 120 / 120 120 / 120 Water Bolus Amount 400 / 400 400 / 400 Output: Stool 100 / 100 Urine Amount (Catheter) 900 / 900 850 / 850 Indwelling Urethral Catheter 900 / 900 850 / 850 Other: Date of Last Bowel Movement 02/07/18 02/07/18 02/08/18 Result Diagrams: 02/08/18 04:15 02/08/18 04:15 Objective Remarks: GENERAL: Intubated, sedated HEENT: NCAT, ETT NECK: Trachea midline CHEST: tachypneic. in distress. prvc. fio2 50%. CARDIOVASCULAR: tachycardic rate, regular rhythm. sinus. ABDOMEN: Soft, non-tender in all quadrants, no rebound MUSCULOSKELETAL: Warm and well perfused, improved trace peripheral edema NEUROLOGICAL: RASS -3, withdraws to pain, does not follow commands. Assessment and Plan - Assessment and Plan Plan: Assessment: 32-year-old male with history of EtOH abuse and chronic pancreatitis who presents with severe hypokalemia, dehydration, and cardiac arrest; found to have significant cardiomyopathy/ cardiogenic shock and acute kidney injury. Now s/p recent extubation and re-intubation for recurrent hypoxic respiratory failure. now back in septic shock and clinically worse today. critically ill. will continue broad spectrum antibiotics, ivf resuscitation, and supportive care. f/u cultures. will need tracheostomy for ongoing rehabilitation efforts as he has failed trial of extubation and is now quite ill. Neuro/Psych: Seizure disorder NOS History of EtOH sober 4 weeks History of anorexia/bulimia Acute metabolic encephalopathy Sedated on propofol, fentanyl. Goal of RASS -2 Continue keppra 500 BID (home dose) Home seroquel Patient has a previous history of heavy EtOH abuse and bulimia as per mother-- continue thiamine/ folate supplementation Delirium precautions- lights on/ shades up during the day, limit nighttime disruptions, frequent reorientation to environment CV: In-hospital cardiac arrest V. fib arrest Cardiogenic Shock-- resolved Severe LV systolic dysfunction- resolving. Septic shock Plan is still for cardiac perfusion study when creatinine improves Echo 01/28: severe LV systolic dysfunction, EF 20-25%. mildly depressed RV function. no valvular lesions. heparin drip on hold due to bleeding continue daily ASA. Continued PO thiamine supplementation for ? beriberi on bedside echo, appears intravascularly deplete, likely secondary to early septic shock. will give 500cc 5% albumin and start ivf with bicarbonate to assist with acidosis. Resp: Acute hypoxic respiratory failure- recurrent. Left upper/lower lobe pulmonary infiltrates-- improving Extubated 02/05, reintubated 02/05 for respiratory failure will need tracheostomy. vent bundle hob elevated nebs wean fio2 for goal spo2 > 90% send sputum culture Chest PT, pulmonary hygiene GI: Elevated lipase/mild pancreatitis-- resolved Left hepatic pneumobilia history of chronic pancreatitis C. Difficile Colitis restart tube feeds. PO pantoprazole for GI prophylaxis Docusate serum/senna 1 tablet twice daily for bowel regimen Renal/ : Acute kidney injury-- improving, slowly Nance replaced 02/04. continue for accurate i/o's. Creatinine peaked around 6, continues to improve, but slowly. hold further diuresis. Nephrology following Endo: Sliding scale insulin with Accu-Cheks to maintain euglycemia aspart insulin every 6 hours, IV dextrose as needed for hypoglycemia Heme: Leukocytosis-- worsening. Macrocytic anemia- stable Mild coagulopathy Monitor CBC daily. Follow trends. ID: Septic shock C. Difficile Colitis Blood cultures on 01/28 and 01/31 showed coagulase negative staph hominis, likely contamination Sputum, UA and influenza all NGTD s/p zosyn for 7 days to treat pneumonia, d/c on 02/05 repeat blood cultures 02/05 pending sent sputum culture urine culture 02/05 pending started on PO Vanc 02/05 add iv flagyl given clinical decompensation continue cefepime continue vancomycin Reconsult ID FEN: Hyperkalemia severe life-threatening hypophosphatemia- resolved severe metabolic alkalosis-resolved MSK: PT evaluate and treat Access: - 01/29 - 02/05 right SC TLC - vascular access team declined to place PICC line 02/05. still needs PICC for access, but will await 48h negative cultures. - 02/04 Nance for urinary retention Prophylaxis -GI-pantoprazole -DVT SCD/heparin drip on hold due to bleeding. Subcutaneous heparin for DVT prophylaxis placed on hold on 02/08 for planned tracheostomy and PEG and to be resumed following procedures. Counseling/ Coordination of Care: Total critical care time: 40 minutes excluding procedures. This includes examining the patient, gathering history from someone other than the patient ( i.e., chart review), discussing the patient's care with other providers, managing the patient's blood pressure and ventilator settings, ordering and interpreting laboratory studies, managing the patient's pain and sedation requirements, re-evaluation at frequent intervals, and documentation.
[2018-02-08] MEDS ORDERED: Vancomycin Inj 750 MG in Sodium Chlor 0.9% Inj 250 ML IV.SIG ONE (15:00)
--- NOTE | 2018-02-08 15:02 | P.PNID ---
Subjective Remarks: Reconsulted to see patient for sepsis Patient has been spiking temps. Cultures have been negative. He is on the ventilator. About to undergo tracheostomy. He was reportedly tachypneic and agitated sedation was weaned. Currently on sedation. White blood cell count was increased and is now on the decline. Has Nance catheter in place. Urine appears cloudy. Recent urine culture has no growth 48 hours. Last blood culture on 02/05/2018 as no growth. Temperature currently 100. Temperature was 101 yesterday. Has a rectal bag in place and watery stools. C. difficile toxin is negative. Chest x-ray on 02/06 showed subsegmental airspace disease improved. CT scan of the head showed no acute abnormality. This is a 32-year-old white male who presented to the emergency department with 2-day history of nausea, vomiting, and diarrhea. The patient ended up intubated after he went into ventricular fibrillation cardiac arrest and was resuscitated. He also was noted to have seizure activity. Past Medical History: PAST MEDICAL HISTORY: Alcohol abuse, gastroesophageal reflux disease, hernia, depression, pancreatitis, seizure disorder, left inguinal hernia repair. Allergies/Adverse Reactions: Allergies Sulfa (Sulfonamide Antibiotics) Allergy (Severe, Verified 10/11/17 07:56) hives Objective Vital Signs 02/07/18 15:00 02/07/18 15:15 02/07/18 15:54 Temperature Pulse Rate 93 H 92 H 102 H Respiratory Rate 14 13 20 Blood Pressure 99/55 L 102/52 L 129/69 Pulse Oximetry 99 99 95 02/07/18 16:00 02/07/18 16:15 02/07/18 16:20 Temperature 99.1 F Pulse Rate 106 H 110 H Respiratory Rate 29 H 24 16 Blood Pressure 136/75 135/75 Pulse Oximetry 94 L 94 L 98 02/07/18 16:30 02/07/18 16:45 02/07/18 17:00 Temperature Pulse Rate 105 H 104 H 101 H Respiratory Rate 14 17 13 Blood Pressure 114/60 106/59 L 102/59 L Pulse Oximetry 97 97 98 02/07/18 17:15 02/07/18 17:30 02/07/18 17:45 Temperature Pulse Rate 100 H 96 H 96 H Respiratory Rate 13 13 41 H Blood Pressure 106/59 L 97/55 L 108/60 Pulse Oximetry 98 98 98 02/07/18 18:00 02/07/18 18:15 02/07/18 18:30 Temperature Pulse Rate 95 H 95 H 93 H Respiratory Rate 34 H 36 H 65 H Blood Pressure 109/60 105/57 L 108/58 L Pulse Oximetry 98 97 98 02/07/18 18:45 02/07/18 19:00 02/07/18 19:15 Temperature Pulse Rate 94 H 94 H 98 H Respiratory Rate 88 H 81 H 12 Blood Pressure 104/58 L 103/55 L 109/64 Pulse Oximetry 97 97 97 02/07/18 19:30 02/07/18 19:45 02/07/18 20:00 Temperature 98.6 F Pulse Rate 101 H 100 H 98 H Respiratory Rate 15 12 14 Blood Pressure 109/66 105/61 103/55 L Pulse Oximetry 100 99 99 02/07/18 20:15 02/07/18 20:26 02/07/18 20:30 Temperature Pulse Rate 91 H 89 Respiratory Rate 13 15 14 Blood Pressure 91/50 L 97/55 L Pulse Oximetry 99 95 98 02/07/18 20:45 02/07/18 21:00 02/07/18 21:15 Temperature Pulse Rate 93 H 94 H 94 H Respiratory Rate 13 9 L 14 Blood Pressure 100/59 L 102/58 L 107/59 L Pulse Oximetry 96 97 97 02/07/18 21:30 02/07/18 21:45 02/07/18 22:00 Temperature Pulse Rate 91 H 97 H 98 H Respiratory Rate 13 16 11 L Blood Pressure 100/56 L 111/66 106/60 Pulse Oximetry 97 99 99 02/07/18 22:15 02/07/18 22:30 02/07/18 22:45 Temperature Pulse Rate 101 H 101 H 100 H Respiratory Rate 13 11 L 13 Blood Pressure 113/61 113/61 104/58 L Pulse Oximetry 97 97 96 02/07/18 23:00 02/07/18 23:15 02/07/18 23:28 Temperature Pulse Rate 96 H 97 H Respiratory Rate 13 12 17 Blood Pressure 99/54 L 103/57 L Pulse Oximetry 97 96 97 02/07/18 23:30 02/07/18 23:45 02/08/18 00:00 Temperature 99.1 F Pulse Rate 93 H 95 H 116 H Respiratory Rate 11 L 14 36 H Blood Pressure 99/55 L 109/64 Pulse Oximetry 98 97 97 02/08/18 00:01 02/08/18 00:15 02/08/18 00:30 Temperature Pulse Rate 116 H 113 H 108 H Respiratory Rate 36 H 23 14 Blood Pressure 139/67 128/63 126/63 Pulse Oximetry 97 94 L 94 L 02/08/18 00:46 02/08/18 01:00 02/08/18 01:15 Temperature Pulse Rate 104 H 101 H 99 H Respiratory Rate 12 13 13 Blood Pressure 104/58 L 105/55 L 93/50 L Pulse Oximetry 96 96 96 02/08/18 01:30 02/08/18 01:45 02/08/18 02:00 Temperature Pulse Rate 95 H 92 H 92 H Respiratory Rate 13 13 12 Blood Pressure 95/53 L 100/54 L 104/58 L Pulse Oximetry 96 96 96 02/08/18 02:15 02/08/18 02:30 02/08/18 02:45 Temperature Pulse Rate 96 H 101 H 101 H Respiratory Rate 12 13 12 Blood Pressure 106/59 L 115/68 106/59 L Pulse Oximetry 96 97 97 02/08/18 03:00 02/08/18 03:15 02/08/18 03:30 Temperature Pulse Rate 108 H 106 H 103 H Respiratory Rate 14 14 12 Blood Pressure 124/69 111/58 L 110/60 Pulse Oximetry 96 96 96 02/08/18 03:45 02/08/18 04:00 02/08/18 04:15 Temperature 100 F H Pulse Rate 99 H 97 H 97 H Respiratory Rate 11 L 14 13 Blood Pressure 102/56 L 99/55 L 101/59 L Pulse Oximetry 94 L 95 94 L 02/08/18 04:30 02/08/18 04:45 02/08/18 05:00 Temperature Pulse Rate 97 H 94 H 93 H Respiratory Rate 14 13 13 Blood Pressure 98/57 L 103/56 L 103/55 L Pulse Oximetry 94 L 94 L 96 02/08/18 05:15 02/08/18 05:30 02/08/18 05:45 Temperature Pulse Rate 96 H 98 H 110 H Respiratory Rate 13 14 31 H Blood Pressure 104/57 L 109/61 140/72 Pulse Oximetry 96 97 91 L 02/08/18 06:00 02/08/18 08:25 Temperature Pulse Rate 115 H Respiratory Rate 43 H 14 Blood Pressure 136/66 Pulse Oximetry 94 L 96 Intake & Output 02/07/18 02/08/18 02/08/18 18:59 06:59 18:59 Intake Total 3088 / 3088 1293 / 1293 400 / 400 Output Total 1000 / 1000 850 / 850 Balance 2088 / 2088 443 / 443 400 / 400 Weight 88.5 kg Intake: IV 2465 / 2465 700 / 700 400 / 400 Versed Inj 50 mg In 50 ml @ 2 50 / 50 50 / 50 MG/HR 2 mls/hr IV.CONT TITRATE PRN Rx#:[id number] Diprivan 1000 mg/100 ml Inj 1, 300 / 300 200 / 200 100 / 100 000 mg In 100 ml @ 5 MCG/KG/MIN 2.58 mls/hr IV.CONT TITRATE PRN Rx#:[id number] Sodium Bicarbonate 8.4% Inj 150 1000 / 1000 MEQ In Sterile Water for Inj 850 ML @ 84 mls/hr IV.CONT . [id number] GERMAINE Rx#:[id number] Maxipime Inj 2,000 MG In NS Inj 100 / 100 100 / 100 100 ML @ 200 mls/hr IV.SIG Q12H GERMAINE Rx#:[id number] Magnesium Sulfate Inj 2 GM In 100 / 100 NS Inj 96 ML @ 50 mls/hr IV.SIG ONCE ONE Rx#:[id number] Vancomycin Inj 1,500 MG In NS 515 / 515 Inj 500 ML @ 250 mls/hr IV.SIG ONCE ONE Rx#:[id number] fentaNYL 10 mcg/mL Premix Drip 250 / 250 250 / 250 250 / 250 2,500 mcg In 250 ml @ 50 MCG/HR 5 mls/hr IV.SIG TITRATE PRN Rx #:[id number] Flagyl 500 MG Inj 100 ML @ 100 200 / 200 100 / 100 mls/hr IV.SIG Q6H GERMAINE Rx#: [id number] Tube Feeding 103 / 103 73 / 73 Tube Irrigant 120 / 120 120 / 120 Water Bolus Amount 400 / 400 400 / 400 Output: Stool 100 / 100 Urine Amount (Catheter) 900 / 900 850 / 850 Indwelling Urethral Catheter 900 / 900 850 / 850 Other: Date of Last Bowel Movement 02/07/18 02/07/18 02/08/18 02/06/18 08:25 Sputum - Endotracheal Gram Stain - Final 02/06/18 08:25 Sputum - Endotracheal Sputum Culture - Final Heavy growth normal respiratory pepito 02/05/18 22:13 Blood - Peripheral Aerobic Blood Culture - Preliminary No growth in 3 days 02/05/18 22:13 Blood - Peripheral Anaerobic Blood Culture - Preliminary No growth in 3 days 02/05/18 22:18 Blood - Peripheral Aerobic Blood Culture - Preliminary No growth in 3 days 02/05/18 22:18 Blood - Peripheral Anaerobic Blood Culture - Preliminary No growth in 3 days 02/06/18 03:00 Catheterized Urine Urine Culture - Final No growth in 48 hours 02/05/18 10:30 Stool Stool Occult Blood (JASON) - Final Hemoccult negative 01/31/18 15:00 Blood - Peripheral Aerobic Blood Culture - Final Staphylococcus epidermidis 01/31/18 15:00 Blood - Peripheral Anaerobic Blood Culture - Final No growth in 5 days 01/31/18 14:45 Blood - Peripheral Aerobic Blood Culture - Final No growth in 5 days 01/31/18 14:45 Blood - Peripheral Anaerobic Blood Culture - Final No growth in 5 days Lab - Hematology Results 02/07/18 02/07/18 02/08/18 04:51 16:36 04:15 WBC 24.7 H 19.5 H 16.5 H RBC 1.93 L 2.40 L 2.29 L Hgb 6.6 L* 8.1 L 7.7 L Hct 20.3 L* 24.6 L 23.5 L MCV 105.1 H D 102.4 H 102.2 H MCH 34.3 H 33.8 33.7 MCHC 32.6 33.0 32.9 RDW 16.5 17.7 H 17.6 H Plt Count 186 204 231 MPV 9.2 9.3 9.2 Prelim Diff (Auto) Slide review pending Neut % (Auto) 90.7 H 88.7 H Lymph % (Auto) 4.5 L 5.8 L Rush % (Auto) 3.1 3.2 Eos % (Auto) 0.8 1.8 Baso % (Auto) 0.9 0.5 Neut # (Auto) 22.4 H 14.6 H Lymph # (Auto) 1.1 1.0 Rush # (Auto) 0.8 0.5 Eos # (Auto) 0.2 0.3 Baso # (Auto) 0.2 0.1 WBC Differential . . Diff Scan Auto diff confirmed Differential Comment . Auto diff final Lab - Chemistry Results 02/06/18 02/06/18 02/06/18 14:30 15:50 19:35 Sodium Potassium 4.8 Chloride Carbon Dioxide Anion Gap BUN Creatinine Estimated GFR POC Glucose 99 91 Random Glucose Calcium Phosphorus Magnesium Albumin 02/06/18 02/07/18 02/07/18 23:59 04:02 04:51 Sodium 146 H Potassium 3.6 D Chloride 113 H Carbon Dioxide 23.3 Anion Gap 10 BUN 18 Creatinine 1.65 H Estimated GFR 49 L POC Glucose 102 94 Random Glucose 96 Calcium 7.7 L Phosphorus 3.9 Magnesium 1.7 Albumin 02/07/18 02/07/18 02/07/18 07:50 13:01 15:54 Sodium Potassium Chloride Carbon Dioxide Anion Gap BUN Creatinine Estimated GFR POC Glucose 97 109 90 Random Glucose Calcium Phosphorus Magnesium Albumin 02/07/18 02/07/18 02/08/18 19:33 23:39 03:36 Sodium Potassium Chloride Carbon Dioxide Anion Gap BUN Creatinine Estimated GFR POC Glucose 90 91 75 Random Glucose Calcium Phosphorus Magnesium Albumin 02/08/18 02/08/18 02/08/18 04:15 08:04 10:25 Sodium 147 H Potassium 3.4 L Chloride 113 H Carbon Dioxide 23.4 Anion Gap 11 BUN 16 Creatinine 1.36 H Estimated GFR 61 L POC Glucose 83 Random Glucose 89 Calcium 8.2 L Phosphorus 3.3 3.3 Magnesium 2.0 Albumin 1.4 L 02/08/18 12:16 Sodium Potassium Chloride Carbon Dioxide Anion Gap BUN Creatinine Estimated GFR POC Glucose 86 Random Glucose Calcium Phosphorus Magnesium Albumin Imaging: ITS Impressions Abdomen/Pelvis CT 01/28/18 00:00 CONCLUSION: 1. There is a new finding of presumed pneumobilia in the left hepatic lobe. Is there a history of recent instrumentation? Portal venous gas is not entirely excluded. 2. Mild induration of the peripancreatic fat proximally suggest mild acute pancreatitis. 3. Small fat-containing umbilical hernia. 4. Pulmonary consolidation is noted as above. 5. Mild gaseous distention of the stomach. Chest CT 01/28/18 00:00 CONCLUSION: 1. Bilateral consolidation most pronounced in the left lower lobe and left upper lobe posteriorly. Gallbladder Ultrasound 01/30/18 00:00 CONCLUSION: 1. Unremarkable study. Abdomen/Bladder Ultrasound 01/30/18 15:17 CONCLUSION: 1. Negative renal sonogram. Chest X-Ray 02/06/18 01:30 CONCLUSION: Subsegmental airspace disease improved from February 05. Endotracheal tube and nasogastric tube in good position. Head CT 02/06/18 03:50 CONCLUSION: 1. No acute intracranial abnormalities. . Physical Exam: PHYSICAL EXAMINATION: GENERAL: This is a well-developed male who is on the ventilator. Sedated. HEENT: Pupils are equal and reactive. No icterus. Oropharynx intubated. NECK: No adenopathy or swelling. LUNGS: No significant rhonchi. HEART: Regular S1 and S2. No murmurs heard. ABDOMEN: Bowel sounds diminished, high-pitched. Soft. No tenderness appreciated on palpation. EXTREMITIES: No clubbing, cyanosis; trace edema of the hands. SKIN: No diffuse rash. NEUROLOGIC: Unable to fully assess. PSYCHIATRIC: Unable to fully assess. Assessment and Plan - Plan IMPRESSION: 1. Possible sepsis. However cultures have been negative. Previous staph coagulase positive blood culture felt to be contamination. Subsequent cultures negative. No clear source. 2. Chest x-ray showing improved airspace disease. Patient felt to probably have aspiration. 3. Status post cardiac arrest. 4. Acute respiratory failure. 5. Acute renal failure. Improved. 6. Seizure disorder. 7. Diarrhea. Questionable antibiotic associated. C. difficile toxin negative. RECOMMENDATIONS: 1. Continue vancomycin. 2. Change cefepime to Azactam. 3. Continue Flagyl. 4. Send a new urine sample for urinalysis. 5. Monitor temperature. 6. Monitor clinical status. 7. Monitor white blood cell count.
--- NOTE | 2018-02-08 16:04 | P.CONGI ---
History of Present Illness Consult date: 02/08/18 Consult reason: PEG tube placement Chief complaint: Vomitting History of Present Illness: This is a 32 yo M who presented to the ER on Jan 28 for complaints of nausea, vomiting, and diarrhea. Pt was also noted to have a seizure disorder and is noncompliant with his medication. According to the notes the RN in the ER thought the pt was having a seizure, doctor was called to bedside, pt was found to be pulseless and CPR was begun. Initial rhythm was V, fib, ROSC was achieved after 35 minutes. Pt is currently being managed in ICU, he has not been able to be weaned from the vent and therefore tracheostomy was done today. Our service has been consulted for PEG tube placement. According to RN, pt did have high residuals from tube feeding. Pt also currently being treated for C. Diff. Of note, pt was noted to be a heavy drinker but quit drinking 4 weeks prior to arrival. <Jennifer Carl - Last Filed: 02/08/18 15:49> Review of Systems unobtainable due to mental status <Jennifer Carl - Last Filed: 02/08/18 15:49> PMFSH - History History Provided By: Patient - Medical History Medical History: Medical History (Last Updated 01/28/18 @ 11:46 by Anand Bird MD) Depression GERD (gastroesophageal reflux disease) Alcohol abuse Hernia Pancreatitis Seizures - Surgical History Surgical History: Surgical History (Last Reviewed 01/28/18 @ 11:45 by Anand Bird MD) History of left inguinal hernia repair - Family History Family History: Family History (Last Updated 01/28/18 @ 11:46 by Anand Bird MD) Other Family history non-contributory - Tobacco History Second Hand Smoke Exposure: No Tobacco Use In Past 30 Days: No Smoking Status: Former smoker Tobacco Type: Cigarettes - Alcohol History How Often Do You Have a Drink Containing Alcohol: 2 to 4 times a month - Substance Use History Substance History: Active Abuse - Substance Use Type Alcohol Status: Early Remission Route Used: By Mouth Frequency: Was a heavy daily user, quit 4 weeks ago Reason for Use: Calm Down - Travel History History of Recent Travel: No Recent Travel in the [place] Within the Last 8 Weeks: No Recent Travel Out of the Country Within the Last 8 Weeks: No - Immunization History Tetanus Immunization: <5 Years Hx Influenza Vaccine This Season: Yes <MeseretJennifer - Last Filed: 02/08/18 15:49> - Medical History Medical History: Medical History (Last Updated 01/28/18 @ 11:46 by Anand Bird MD) Depression GERD (gastroesophageal reflux disease) Alcohol abuse Hernia Pancreatitis Seizures - Surgical History Surgical History: Surgical History (Last Reviewed 01/28/18 @ 11:45 by Anand Bird MD) History of left inguinal hernia repair - Family History Family History: Family History (Last Updated 01/28/18 @ 11:46 by Anand Bird MD) Other Family history non-contributory <Travis Cook - Last Filed: 02/08/18 16:20> Medications and Allergies Active Medications: Active Medications Acetaminophen (Tylenol Liq) 650 mg NG/OG Q6H PRN PRN Reason: FEVER Last Admin: 02/06/18 23:57 Dose: 650 mg Al Hydroxide/Mg Hydroxide (Milk Of Magnesia Liq) 30 ml PO Q12H PRN PRN Reason: Mild Constipation Albuterol (Albuterol Neb (Prn)) 2.5 mg NEB Q2HR NEB PRN PRN Reason: SHORTNESS OF BREATH/WHEEZING Last Admin: 02/02/18 20:03 Dose: 2.5 mg Artificial Tears (Genteal Severe Dry Eye Relief 0.3% Opth Gel) 1 drops EACH EYE Q4H PRN PRN Reason: SEE LABEL COMMENTS Last Admin: 02/07/18 08:26 Dose: 1 drops Aspirin (Aspirin) 325 mg PO DAILY [facility] Last Admin: 02/08/18 08:06 Dose: 325 mg Bisacodyl (Dulcolax Supp) 10 mg RECTAL DAILY PRN PRN Reason: SEVERE CONSITIPATION Chlorhexidine Gluconate (Peridex 0.12% Oral Kit) 15 ml OROPHARYNG BID@0800, 2000 [facility] Last Admin: 02/08/18 08:05 Dose: 15 ml Dextrose (D50w Vial) 50 ml IV.PUSH UNSCH PRN PRN Reason: PER HYPOGLYCEMIA PROTOCOL Last Admin: 01/30/18 04:15 Dose: 50 ml Glucagon (Glucagon Inj) 1 mg OTHER PRN PRN PRN Reason: for Hypoglycemia Protocol Heparin Sodium (Porcine) (Heparin Inj) 5,000 units SQ Q12HR [facility] Last Admin: 02/08/18 08:08 Dose: 5,000 units Fentanyl (Fentanyl 10 Mcg/Ml Premix Drip) 2,500 mcg in 250 mls @ 5 mls/hr IV.SIG TITRATE PRN; Protocol PRN Reason: Per Protocol Last Admin: 02/08/18 09:51 Dose: 150 mcg/hr, 15 mls/hr Propofol (Diprivan 1000 Mg/100 Ml Inj) 1,000 mg in 100 mls @ 2.58 mls/hr IV.CONT TITRATE PRN; Protocol PRN Reason: Per Protocol Last Admin: 02/08/18 12:13 Dose: 25 mcg/kg/min, 12.9 mls/hr Metronidazole/Sodium Chloride (Flagyl 500 Mg Inj) 100 mls @ 100 mls/hr IV.SIG Q6H [facility] Last Admin: 02/08/18 09:46 Dose: 100 mls/hr Midazolam HCl (Versed Inj) 50 mg in 50 mls @ 2 mls/hr IV.CONT TITRATE PRN; Protocol PRN Reason: Per Protocol Last Admin: 02/08/18 09:58 Dose: 5 mg/hr, 5 mls/hr Sodium Chloride 38.5 meq/ (Sterile Water) 1,009.625 mls @ 42 mls/hr IV.CONT .Q24H [facility] Dextrose/Sodium Chloride (D5w/1/2 Ns Inj) 1,000 mls @ 42 mls/hr IV.SIG .[id number] [facility] Last Admin: 02/08/18 10:40 Dose: 42 mls/hr Vancomycin HCl 750 mg/ Sodium (Chloride) 257.5 mls @ 250 mls/hr IV.SIG ONCE ONE Stop: 02/08/18 16:01 Aztreonam 1,000 mg/ Sodium (Chloride) 100 mls @ 200 mls/hr IV.SIG Q8H [facility] Insulin Aspart (Novolog Insulin Correctional Sugar Inj) 0 unit SQ Q4HR [facility]; Protocol Last Admin: 02/08/18 12:16 Dose: Not Given Levetiracetam (Keppra) 500 mg NG/OG BID [facility] Last Admin: 02/08/18 08:06 Dose: 500 mg Miscellaneous Information (Misc Mix All Iv Meds In Ns) 1 each MISCELLANE UNSCH [facility] Multivitamins (Theragran) 1 tab NG/OG DAILY [facility] Last Admin: 02/08/18 08:07 Dose: 1 tab Ondansetron HCl (Zofran Inj) 4 mg IV.PUSH Q6H PRN PRN Reason: NAUSEA OR VOMITING Pantoprazole Sodium (Protonix Inj) 40 mg IV.PUSH DAILY [facility] Last Admin: 02/08/18 08:06 Dose: 40 mg Pharmacy Profile Note (Vancomycin Consult Pharmacy) 1 each OTHER UNSCH PRN PRN Reason: Pharmacy to dose Quetiapine Fumarate (Seroquel) 100 mg NG/OG BID [facility] Last Admin: 02/08/18 08:06 Dose: 100 mg Senna/Docusate Sodium (Hiral-Colace) 1 tab PO BID [facility] Last Admin: 02/08/18 08:06 Dose: 1 tab Sennosides (Senokot) 17.2 mg PO Q12H PRN PRN Reason: Moderate Constipation Last Admin: 01/31/18 08:30 Dose: 17.2 mg Sodium Chloride (Ns Flush) 2 ml IV.FLUSH BID [facility] Last Admin: 02/08/18 08:07 Dose: 2 ml Sodium Chloride (Ns Flush) 2 ml IV.FLUSH PRN PRN PRN Reason: FLUSH AFTER USING IV ACCESS Last Admin: 02/05/18 09:19 Dose: 2 ml Sterile Water (Free Water) 200 ml G-TUBE Q6HR [facility] Last Admin: 02/08/18 12:17 Dose: Not Given Thiamine HCl (Vitamin B1) 100 mg PO BID [facility] Last Admin: 02/08/18 08:06 Dose: 100 mg Vancomycin HCl (Vancomycin Po) 125 mg NG/OG QID [facility] Stop: 02/15/18 17:59 Last Admin: 02/08/18 12:14 Dose: 125 mg <Jennifer Carl - Last Filed: 02/08/18 15:49> Active Medications: Active Medications Acetaminophen (Tylenol Liq) 650 mg NG/OG Q6H PRN PRN Reason: FEVER Last Admin: 02/06/18 23:57 Dose: 650 mg Al Hydroxide/Mg Hydroxide (Milk Of Magnesia Liq) 30 ml PO Q12H PRN PRN Reason: Mild Constipation Albuterol (Albuterol Neb (Prn)) 2.5 mg NEB Q2HR NEB PRN PRN Reason: SHORTNESS OF BREATH/WHEEZING Last Admin: 02/02/18 20:03 Dose: 2.5 mg Artificial Tears (Genteal Severe Dry Eye Relief 0.3% Opth Gel) 1 drops EACH EYE Q4H PRN PRN Reason: SEE LABEL COMMENTS Last Admin: 02/07/18 08:26 Dose: 1 drops Aspirin (Aspirin) 325 mg PO DAILY [facility] Last Admin: 02/08/18 08:06 Dose: 325 mg Bisacodyl (Dulcolax Supp) 10 mg RECTAL DAILY PRN PRN Reason: SEVERE CONSITIPATION Chlorhexidine Gluconate (Peridex 0.12% Oral Kit) 15 ml OROPHARYNG BID@0800, 1999 [facility] Last Admin: 02/08/18 08:05 Dose: 15 ml Dextrose (D50w Vial) 50 ml IV.PUSH UNSCH PRN PRN Reason: PER HYPOGLYCEMIA PROTOCOL Last Admin: 01/30/18 04:15 Dose: 50 ml Glucagon (Glucagon Inj) 1 mg OTHER PRN PRN PRN Reason: for Hypoglycemia Protocol Heparin Sodium (Porcine) (Heparin Inj) 5,000 units SQ Q12HR [facility] Last Admin: 02/08/18 08:08 Dose: 5,000 units Fentanyl (Fentanyl 10 Mcg/Ml Premix Drip) 2,500 mcg in 250 mls @ 5 mls/hr IV.SIG TITRATE PRN; Protocol PRN Reason: Per Protocol Last Admin: 02/08/18 09:51 Dose: 150 mcg/hr, 15 mls/hr Propofol (Diprivan 1000 Mg/100 Ml Inj) 1,000 mg in 100 mls @ 2.58 mls/hr IV.CONT TITRATE PRN; Protocol PRN Reason: Per Protocol Last Admin: 02/08/18 12:13 Dose: 25 mcg/kg/min, 12.9 mls/hr Metronidazole/Sodium Chloride (Flagyl 500 Mg Inj) 100 mls @ 100 mls/hr IV.SIG Q6H [facility] Last Infusion: 02/08/18 11:00 Dose: Infused Midazolam HCl (Versed Inj) 50 mg in 50 mls @ 2 mls/hr IV.CONT TITRATE PRN; Protocol PRN Reason: Per Protocol Last Admin: 02/08/18 09:58 Dose: 5 mg/hr, 5 mls/hr Sodium Chloride 38.5 meq/ (Sterile Water) 1,009.625 mls @ 42 mls/hr IV.CONT .Q24H [facility] Dextrose/Sodium Chloride (D5w/1/2 Ns Inj) 1,000 mls @ 42 mls/hr IV.SIG .[id number] [facility] Last Admin: 02/08/18 10:40 Dose: 42 mls/hr Aztreonam 1,000 mg/ Sodium (Chloride) 100 mls @ 200 mls/hr IV.SIG Q8H [facility] Insulin Aspart (Novolog Insulin Correctional Sugar Inj) 0 unit SQ Q4HR [facility]; Protocol Last Admin: 02/08/18 12:16 Dose: Not Given Levetiracetam (Keppra) 500 mg NG/OG BID [facility] Last Admin: 02/08/18 08:06 Dose: 500 mg Miscellaneous Information (Misc Mix All Iv Meds In Ns) 1 each MISCELLANE UNSCH [facility] Multivitamins (Theragran) 1 tab NG/OG DAILY [facility] Last Admin: 02/08/18 08:07 Dose: 1 tab Ondansetron HCl (Zofran Inj) 4 mg IV.PUSH Q6H PRN PRN Reason: NAUSEA OR VOMITING Pantoprazole Sodium (Protonix Inj) 40 mg IV.PUSH DAILY [facility] Last Admin: 02/08/18 08:06 Dose: 40 mg Pharmacy Profile Note (Vancomycin Consult Pharmacy) 1 each OTHER UNSCH PRN PRN Reason: Pharmacy to dose Quetiapine Fumarate (Seroquel) 100 mg NG/OG BID [facility] Last Admin: 02/08/18 08:06 Dose: 100 mg Senna/Docusate Sodium (Hiral-Colace) 1 tab PO BID [facility] Last Admin: 02/08/18 08:06 Dose: 1 tab Sennosides (Senokot) 17.2 mg PO Q12H PRN PRN Reason: Moderate Constipation Last Admin: 01/31/18 08:30 Dose: 17.2 mg Sodium Chloride (Ns Flush) 2 ml IV.FLUSH BID [facility] Last Admin: 02/08/18 08:07 Dose: 2 ml Sodium Chloride (Ns Flush) 2 ml IV.FLUSH PRN PRN PRN Reason: FLUSH AFTER USING IV ACCESS Last Admin: 02/05/18 09:19 Dose: 2 ml Sterile Water (Free Water) 200 ml G-TUBE Q6HR [facility] Last Admin: 02/08/18 12:17 Dose: Not Given Thiamine HCl (Vitamin B1) 100 mg PO BID [facility] Last Admin: 02/08/18 08:06 Dose: 100 mg Vancomycin HCl (Vancomycin Po) 125 mg NG/OG QID [facility] Stop: 02/15/18 17:59 Last Admin: 02/08/18 12:14 Dose: 125 mg <Travis Cook A - Last Filed: 02/08/18 16:20> Allergies Allergy/AdvReac Type Severity Reaction Status Date / Time Sulfa (Sulfonamide Allergy Severe hives Verified 10/11/17 07:56 Antibiotics) Home Medications Medication Instructions Recorded Confirmed Type levetiracetam [Keppra] 500 mg PO Q12H 01/28/18 01/28/18 History pantoprazole [Protonix] 40 mg PO BID 01/28/18 01/28/18 History quetiapine [Seroquel] 50 mg PO TID 01/28/18 01/28/18 History Exam Vital signs: Vital Signs 02/07/18 15:54 02/07/18 16:00 02/07/18 16:15 Temperature 99.1 F Pulse Rate 102 H 106 H 110 H Respiratory Rate 20 29 H 24 Blood Pressure 129/69 136/75 135/75 Pulse Oximetry 95 94 L 94 L 02/07/18 16:20 02/07/18 16:30 02/07/18 16:45 Temperature Pulse Rate 105 H 104 H Respiratory Rate 16 14 17 Blood Pressure 114/60 106/59 L Pulse Oximetry 98 97 97 02/07/18 17:00 02/07/18 17:15 02/07/18 17:30 Temperature Pulse Rate 101 H 100 H 96 H Respiratory Rate 13 13 13 Blood Pressure 102/59 L 106/59 L 97/55 L Pulse Oximetry 98 98 98 02/07/18 17:45 02/07/18 18:00 02/07/18 18:15 Temperature Pulse Rate 96 H 95 H 95 H Respiratory Rate 41 H 34 H 36 H Blood Pressure 108/60 109/60 105/57 L Pulse Oximetry 98 98 97 02/07/18 18:30 02/07/18 18:45 02/07/18 19:00 Temperature Pulse Rate 93 H 94 H 94 H Respiratory Rate 65 H 88 H 81 H Blood Pressure 108/58 L 104/58 L 103/55 L Pulse Oximetry 98 97 97 02/07/18 19:15 02/07/18 19:30 02/07/18 19:45 Temperature Pulse Rate 98 H 101 H 100 H Respiratory Rate 12 15 12 Blood Pressure 109/64 109/66 105/61 Pulse Oximetry 97 100 99 02/07/18 20:00 02/07/18 20:15 02/07/18 20:26 Temperature 98.6 F Pulse Rate 98 H 91 H Respiratory Rate 14 13 15 Blood Pressure 103/55 L 91/50 L Pulse Oximetry 99 99 95 02/07/18 20:30 02/07/18 20:45 02/07/18 21:00 Temperature Pulse Rate 89 93 H 94 H Respiratory Rate 14 13 9 L Blood Pressure 97/55 L 100/59 L 102/58 L Pulse Oximetry 98 96 97 02/07/18 21:15 02/07/18 21:30 02/07/18 21:45 Temperature Pulse Rate 94 H 91 H 97 H Respiratory Rate 14 13 16 Blood Pressure 107/59 L 100/56 L 111/66 Pulse Oximetry 97 97 99 02/07/18 22:00 02/07/18 22:15 02/07/18 22:30 Temperature Pulse Rate 98 H 101 H 101 H Respiratory Rate 11 L 13 11 L Blood Pressure 106/60 113/61 113/61 Pulse Oximetry 99 97 97 02/07/18 22:45 02/07/18 23:00 02/07/18 23:15 Temperature Pulse Rate 100 H 96 H 97 H Respiratory Rate 13 13 12 Blood Pressure 104/58 L 99/54 L 103/57 L Pulse Oximetry 96 97 96 02/07/18 23:28 02/07/18 23:30 02/07/18 23:45 Temperature Pulse Rate 93 H 95 H Respiratory Rate 17 11 L 14 Blood Pressure 99/55 L 109/64 Pulse Oximetry 97 98 97 02/08/18 00:00 02/08/18 00:01 02/08/18 00:15 Temperature 99.1 F Pulse Rate 116 H 116 H 113 H Respiratory Rate 36 H 36 H 23 Blood Pressure 139/67 128/63 Pulse Oximetry 97 97 94 L 02/08/18 00:30 02/08/18 00:46 02/08/18 01:00 Temperature Pulse Rate 108 H 104 H 101 H Respiratory Rate 14 12 13 Blood Pressure 126/63 104/58 L 105/55 L Pulse Oximetry 94 L 96 96 02/08/18 01:15 02/08/18 01:30 02/08/18 01:45 Temperature Pulse Rate 99 H 95 H 92 H Respiratory Rate 13 13 13 Blood Pressure 93/50 L 95/53 L 100/54 L Pulse Oximetry 96 96 96 02/08/18 02:00 02/08/18 02:15 02/08/18 02:30 Temperature Pulse Rate 92 H 96 H 101 H Respiratory Rate 12 12 13 Blood Pressure 104/58 L 106/59 L 115/68 Pulse Oximetry 96 96 97 02/08/18 02:45 02/08/18 03:00 02/08/18 03:15 Temperature Pulse Rate 101 H 108 H 106 H Respiratory Rate 12 14 14 Blood Pressure 106/59 L 124/69 111/58 L Pulse Oximetry 97 96 96 02/08/18 03:30 02/08/18 03:45 02/08/18 04:00 Temperature 100 F H Pulse Rate 103 H 99 H 97 H Respiratory Rate 12 11 L 14 Blood Pressure 110/60 102/56 L 99/55 L Pulse Oximetry 96 94 L 95 02/08/18 04:15 02/08/18 04:30 02/08/18 04:45 Temperature Pulse Rate 97 H 97 H 94 H Respiratory Rate 13 14 13 Blood Pressure 101/59 L 98/57 L 103/56 L Pulse Oximetry 94 L 94 L 94 L 02/08/18 05:00 02/08/18 05:15 02/08/18 05:30 Temperature Pulse Rate 93 H 96 H 98 H Respiratory Rate 13 13 14 Blood Pressure 103/55 L 104/57 L 109/61 Pulse Oximetry 96 96 97 02/08/18 05:45 02/08/18 06:00 02/08/18 08:25 Temperature Pulse Rate 110 H 115 H Respiratory Rate 31 H 43 H 14 Blood Pressure 140/72 136/66 Pulse Oximetry 91 L 94 L 96 02/08/18 15:00 02/08/18 15:32 Temperature Pulse Rate Respiratory Rate 20 Blood Pressure Pulse Oximetry 94 L 100 Intake & Output 02/07/18 02/08/18 02/08/18 18:59 06:59 18:59 Intake Total 3088 / 3088 1293 / 1293 400 / 400 Output Total 1000 / 1000 850 / 850 Balance 2088 / 2088 443 / 443 400 / 400 Weight 88.5 kg Intake: IV 2465 / 2465 700 / 700 400 / 400 Versed Inj 50 mg In 50 ml @ 2 50 / 50 50 / 50 MG/HR 2 mls/hr IV.CONT TITRATE PRN Rx#:[id number] Diprivan 1000 mg/100 ml Inj 1, 300 / 300 200 / 200 100 / 100 000 mg In 100 ml @ 5 MCG/KG/MIN 2.58 mls/hr IV.CONT TITRATE PRN Rx#:[id number] Sodium Bicarbonate 8.4% Inj 150 1000 / 1000 MEQ In Sterile Water for Inj 850 ML @ 84 mls/hr IV.CONT . [id number] [facility] Rx#:[id number] Maxipime Inj 2,000 MG In NS Inj 100 / 100 100 / 100 100 ML @ 200 mls/hr IV.SIG Q12H [facility] Rx#:[id number] Magnesium Sulfate Inj 2 GM In 100 / 100 NS Inj 96 ML @ 50 mls/hr IV.SIG ONCE ONE Rx#:[id number] Vancomycin Inj 1,500 MG In NS 515 / 515 Inj 500 ML @ 250 mls/hr IV.SIG ONCE ONE Rx#:[id number] fentaNYL 10 mcg/mL Premix Drip 250 / 250 250 / 250 250 / 250 2,500 mcg In 250 ml @ 50 MCG/HR 5 mls/hr IV.SIG TITRATE PRN Rx #:[id number] Flagyl 500 MG Inj 100 ML @ 100 200 / 200 100 / 100 mls/hr IV.SIG Q6H [facility] Rx#: [id number] Tube Feeding 103 / 103 73 / 73 Tube Irrigant 120 / 120 120 / 120 Water Bolus Amount 400 / 400 400 / 400 Output: Stool 100 / 100 Urine Amount (Catheter) 900 / 900 850 / 850 Indwelling Urethral Catheter 900 / 900 850 / 850 Other: Date of Last Bowel Movement 02/07/18 02/07/18 02/08/18 - Constitutional no acute distress - Routine HEENT Exam Head: Present: normocephalic, atraumatic - Routine Respiratory Exam Present: patient mechanically ventilated - Routine Abdominal Exam Present: soft, normoactive bowel sounds, distended - Routine Skin Exam Present: dry, warm <Jennifer Carl - Last Filed: 02/08/18 15:49> Vital signs: Vital Signs 02/07/18 16:20 02/07/18 16:30 02/07/18 16:45 Temperature Pulse Rate 105 H 104 H Respiratory Rate 16 14 17 Blood Pressure 114/60 106/59 L Pulse Oximetry 98 97 97 02/07/18 17:00 02/07/18 17:15 02/07/18 17:30 Temperature Pulse Rate 101 H 100 H 96 H Respiratory Rate 13 13 13 Blood Pressure 102/59 L 106/59 L 97/55 L Pulse Oximetry 98 98 98 02/07/18 17:45 02/07/18 18:00 02/07/18 18:15 Temperature Pulse Rate 96 H 95 H 95 H Respiratory Rate 41 H 34 H 36 H Blood Pressure 108/60 109/60 105/57 L Pulse Oximetry 98 98 97 02/07/18 18:30 02/07/18 18:45 02/07/18 19:00 Temperature Pulse Rate 93 H 94 H 94 H Respiratory Rate 65 H 88 H 81 H Blood Pressure 108/58 L 104/58 L 103/55 L Pulse Oximetry 98 97 97 02/07/18 19:15 02/07/18 19:30 02/07/18 19:45 Temperature Pulse Rate 98 H 101 H 100 H Respiratory Rate 12 15 12 Blood Pressure 109/64 109/66 105/61 Pulse Oximetry 97 100 99 02/07/18 20:00 02/07/18 20:15 02/07/18 20:26 Temperature 98.6 F Pulse Rate 98 H 91 H Respiratory Rate 14 13 15 Blood Pressure 103/55 L 91/50 L Pulse Oximetry 99 99 95 02/07/18 20:30 02/07/18 20:45 02/07/18 21:00 Temperature Pulse Rate 89 93 H 94 H Respiratory Rate 14 13 9 L Blood Pressure 97/55 L 100/59 L 102/58 L Pulse Oximetry 98 96 97 02/07/18 21:15 02/07/18 21:30 02/07/18 21:45 Temperature Pulse Rate 94 H 91 H 97 H Respiratory Rate 14 13 16 Blood Pressure 107/59 L 100/56 L 111/66 Pulse Oximetry 97 97 99 02/07/18 22:00 02/07/18 22:15 02/07/18 22:30 Temperature Pulse Rate 98 H 101 H 101 H Respiratory Rate 11 L 13 11 L Blood Pressure 106/60 113/61 113/61 Pulse Oximetry 99 97 97 02/07/18 22:45 02/07/18 23:00 02/07/18 23:15 Temperature Pulse Rate 100 H 96 H 97 H Respiratory Rate 13 13 12 Blood Pressure 104/58 L 99/54 L 103/57 L Pulse Oximetry 96 97 96 02/07/18 23:28 02/07/18 23:30 02/07/18 23:45 Temperature Pulse Rate 93 H 95 H Respiratory Rate 17 11 L 14 Blood Pressure 99/55 L 109/64 Pulse Oximetry 97 98 97 02/08/18 00:00 02/08/18 00:01 02/08/18 00:15 Temperature 99.1 F Pulse Rate 116 H 116 H 113 H Respiratory Rate 36 H 36 H 23 Blood Pressure 139/67 128/63 Pulse Oximetry 97 97 94 L 02/08/18 00:30 02/08/18 00:46 02/08/18 01:00 Temperature Pulse Rate 108 H 104 H 101 H Respiratory Rate 14 12 13 Blood Pressure 126/63 104/58 L 105/55 L Pulse Oximetry 94 L 96 96 02/08/18 01:15 02/08/18 01:30 02/08/18 01:45 Temperature Pulse Rate 99 H 95 H 92 H Respiratory Rate 13 13 13 Blood Pressure 93/50 L 95/53 L 100/54 L Pulse Oximetry 96 96 96 02/08/18 02:00 02/08/18 02:15 02/08/18 02:30 Temperature Pulse Rate 92 H 96 H 101 H Respiratory Rate 12 12 13 Blood Pressure 104/58 L 106/59 L 115/68 Pulse Oximetry 96 96 97 02/08/18 02:45 02/08/18 03:00 02/08/18 03:15 Temperature Pulse Rate 101 H 108 H 106 H Respiratory Rate 12 14 14 Blood Pressure 106/59 L 124/69 111/58 L Pulse Oximetry 97 96 96 02/08/18 03:30 02/08/18 03:45 02/08/18 04:00 Temperature 100 F H Pulse Rate 103 H 99 H 97 H Respiratory Rate 12 11 L 14 Blood Pressure 110/60 102/56 L 99/55 L Pulse Oximetry 96 94 L 95 02/08/18 04:15 02/08/18 04:30 02/08/18 04:45 Temperature Pulse Rate 97 H 97 H 94 H Respiratory Rate 13 14 13 Blood Pressure 101/59 L 98/57 L 103/56 L Pulse Oximetry 94 L 94 L 94 L 02/08/18 05:00 02/08/18 05:15 02/08/18 05:30 Temperature Pulse Rate 93 H 96 H 98 H Respiratory Rate 13 13 14 Blood Pressure 103/55 L 104/57 L 109/61 Pulse Oximetry 96 96 97 02/08/18 05:45 02/08/18 06:00 02/08/18 08:25 Temperature Pulse Rate 110 H 115 H Respiratory Rate 31 H 43 H 14 Blood Pressure 140/72 136/66 Pulse Oximetry 91 L 94 L 96 02/08/18 15:00 02/08/18 15:32 Temperature Pulse Rate Respiratory Rate 20 Blood Pressure Pulse Oximetry 94 L 100 Intake & Output 02/07/18 02/08/18 02/08/18 18:59 06:59 18:59 Intake Total 3088 / 3088 1293 / 1293 500 / 500 Output Total 1000 / 1000 850 / 850 Balance 2088 / 2088 443 / 443 500 / 500 Weight 88.5 kg Intake: IV 2465 / 2465 700 / 700 500 / 500 Versed Inj 50 mg In 50 ml @ 2 50 / 50 50 / 50 MG/HR 2 mls/hr IV.CONT TITRATE PRN Rx#:[id number] Diprivan 1000 mg/100 ml Inj 1, 300 / 300 200 / 200 100 / 100 000 mg In 100 ml @ 5 MCG/KG/MIN 2.58 mls/hr IV.CONT TITRATE PRN Rx#:[id number] Sodium Bicarbonate 8.4% Inj 150 1000 / 1000 MEQ In Sterile Water for Inj 850 ML @ 84 mls/hr IV.CONT . [id number] [facility] Rx#:[id number] Maxipime Inj 2,000 MG In NS Inj 100 / 100 100 / 100 100 ML @ 200 mls/hr IV.SIG Q12H [facility] Rx#:[id number] Magnesium Sulfate Inj 2 GM In 100 / 100 NS Inj 96 ML @ 50 mls/hr IV.SIG ONCE ONE Rx#:[id number] Vancomycin Inj 1,500 MG In NS 515 / 515 Inj 500 ML @ 250 mls/hr IV.SIG ONCE ONE Rx#:[id number] fentaNYL 10 mcg/mL Premix Drip 250 / 250 250 / 250 250 / 250 2,500 mcg In 250 ml @ 50 MCG/HR 5 mls/hr IV.SIG TITRATE PRN Rx #:[id number] Flagyl 500 MG Inj 100 ML @ 100 200 / 200 100 / 100 100 / 100 mls/hr IV.SIG Q6H [facility] Rx#: [id number] Tube Feeding 103 / 103 73 / 73 Tube Irrigant 120 / 120 120 / 120 Water Bolus Amount 400 / 400 400 / 400 Output: Stool 100 / 100 Urine Amount (Catheter) 900 / 900 850 / 850 Indwelling Urethral Catheter 900 / 900 850 / 850 Other: Date of Last Bowel Movement 02/07/18 02/07/18 02/08/18 <Travis Cook A - Last Filed: 02/08/18 16:20> Results - Labs CBC & Chem 7: 02/08/18 04:15 02/08/18 04:15 Labs: Laboratory Results - last 24 hr 02/07/18 02/07/18 02/07/18 15:54 16:36 19:33 WBC 19.5 H RBC 2.40 L Hgb 8.1 L Hct 24.6 L MCV 102.4 H MCH 33.8 MCHC 33.0 RDW 17.7 H Plt Count 204 MPV 9.3 Neut % (Auto) Lymph % (Auto) [place] % (Auto) Eos % (Auto) Baso % (Auto) Neut # (Auto) Lymph # (Auto) [place] # (Auto) Eos # (Auto) Baso # (Auto) WBC Differential Differential Comment Sodium Potassium Chloride Carbon Dioxide Anion Gap BUN Creatinine Estimated GFR POC Glucose 90 90 Random Glucose Calcium Phosphorus Magnesium Albumin Random Vancomycin 02/07/18 02/08/18 02/08/18 23:39 03:36 04:15 WBC 16.5 H RBC 2.29 L Hgb 7.7 L Hct 23.5 L MCV 102.2 H MCH 33.7 MCHC 32.9 RDW 17.6 H Plt Count 231 MPV 9.2 Neut % (Auto) 88.7 H Lymph % (Auto) 5.8 L [place] % (Auto) 3.2 Eos % (Auto) 1.8 Baso % (Auto) 0.5 Neut # (Auto) 14.6 H Lymph # (Auto) 1.0 [place] # (Auto) 0.5 Eos # (Auto) 0.3 Baso # (Auto) 0.1 WBC Differential . Differential Comment Auto diff final Sodium Potassium Chloride Carbon Dioxide Anion Gap BUN Creatinine Estimated GFR POC Glucose 91 75 Random Glucose Calcium Phosphorus Magnesium Albumin Random Vancomycin 02/08/18 02/08/18 02/08/18 04:15 08:04 10:25 WBC RBC Hgb Hct MCV MCH MCHC RDW Plt Count MPV Neut % (Auto) Lymph % (Auto) [place] % (Auto) Eos % (Auto) Baso % (Auto) Neut # (Auto) Lymph # (Auto) [place] # (Auto) Eos # (Auto) Baso # (Auto) WBC Differential Differential Comment Sodium 147 H Potassium 3.4 L Chloride 113 H Carbon Dioxide 23.4 Anion Gap 11 BUN 16 Creatinine 1.36 H Estimated GFR 61 L POC Glucose 83 Random Glucose 89 Calcium 8.2 L Phosphorus 3.3 3.3 Magnesium 2.0 Albumin 1.4 L Random Vancomycin 18.5 02/08/18 12:16 WBC RBC Hgb Hct MCV MCH MCHC RDW Plt Count MPV Neut % (Auto) Lymph % (Auto) [place] % (Auto) Eos % (Auto) Baso % (Auto) Neut # (Auto) Lymph # (Auto) [place] # (Auto) Eos # (Auto) Baso # (Auto) WBC Differential Differential Comment Sodium Potassium Chloride Carbon Dioxide Anion Gap BUN Creatinine Estimated GFR POC Glucose 86 Random Glucose Calcium Phosphorus Magnesium Albumin Random Vancomycin <Jennifer Carl - Last Filed: 02/08/18 15:49> - Labs CBC & Chem 7: 02/08/18 04:15 02/08/18 04:15 Labs: Laboratory Results - last 24 hr 02/07/18 02/07/18 02/07/18 07:46 16:36 19:33 WBC 19.5 H RBC 2.40 L Hgb 8.1 L Hct 24.6 L MCV 102.4 H MCH 33.8 MCHC 33.0 RDW 17.7 H Plt Count 204 MPV 9.3 Neut % (Auto) Lymph % (Auto) [place] % (Auto) Eos % (Auto) Baso % (Auto) Neut # (Auto) Lymph # (Auto) [place] # (Auto) Eos # (Auto) Baso # (Auto) WBC Differential Differential Comment Sodium Potassium Chloride Carbon Dioxide Anion Gap BUN Creatinine Estimated GFR POC Glucose 90 Random Glucose Calcium Phosphorus Magnesium Albumin Random Vancomycin Blood Type O Positive Antibody Screen Negative MTS Gel Crossmatch See Detail 02/07/18 02/08/18 02/08/18 23:39 03:36 04:15 WBC 16.5 H RBC 2.29 L Hgb 7.7 L Hct 23.5 L MCV 102.2 H MCH 33.7 MCHC 32.9 RDW 17.6 H Plt Count 231 MPV 9.2 Neut % (Auto) 88.7 H Lymph % (Auto) 5.8 L [place] % (Auto) 3.2 Eos % (Auto) 1.8 Baso % (Auto) 0.5 Neut # (Auto) 14.6 H Lymph # (Auto) 1.0 [place] # (Auto) 0.5 Eos # (Auto) 0.3 Baso # (Auto) 0.1 WBC Differential . Differential Comment Auto diff final Sodium Potassium Chloride Carbon Dioxide Anion Gap BUN Creatinine Estimated GFR POC Glucose 91 75 Random Glucose Calcium Phosphorus Magnesium Albumin Random Vancomycin Blood Type Antibody Screen MTS Gel Crossmatch 02/08/18 02/08/18 02/08/18 04:15 08:04 10:25 WBC RBC Hgb Hct MCV MCH MCHC RDW Plt Count MPV Neut % (Auto) Lymph % (Auto) [place] % (Auto) Eos % (Auto) Baso % (Auto) Neut # (Auto) Lymph # (Auto) [place] # (Auto) Eos # (Auto) Baso # (Auto) WBC Differential Differential Comment Sodium 147 H Potassium 3.4 L Chloride 113 H Carbon Dioxide 23.4 Anion Gap 11 BUN 16 Creatinine 1.36 H Estimated GFR 61 L POC Glucose 83 Random Glucose 89 Calcium 8.2 L Phosphorus 3.3 3.3 Magnesium 2.0 Albumin 1.4 L Random Vancomycin 18.5 Blood Type Antibody Screen MTS Gel Crossmatch 02/08/18 12:16 WBC RBC Hgb Hct MCV MCH MCHC RDW Plt Count MPV Neut % (Auto) Lymph % (Auto) [place] % (Auto) Eos % (Auto) Baso % (Auto) Neut # (Auto) Lymph # (Auto) [place] # (Auto) Eos # (Auto) Baso # (Auto) WBC Differential Differential Comment Sodium Potassium Chloride Carbon Dioxide Anion Gap BUN Creatinine Estimated GFR POC Glucose 86 Random Glucose Calcium Phosphorus Magnesium Albumin Random Vancomycin Blood Type Antibody Screen MTS Gel Crossmatch - Imaging Impressions Chest X-Ray 02/08/18 14:56 CONCLUSION: 1. Consolidating infiltrate has developed in the right midlung and left base 2. Interval placement of a tracheostomy tube and removal of endotracheal tube. 3. Otherwise stable chest. <Travis Cook - Last Filed: 02/08/18 16:20> Assessment and Plan - Plan Assessment: - PEG tube consult- Presented to the ER on Jan 28 for complaints of nausea, vomiting, and diarrhea. Pt was also noted to have a seizure disorder and is noncompliant with his medication. According to the notes the RN in the ER thought the pt was having a seizure, doctor was called to bedside, pt was found to be pulseless and CPR was begun. Initial rhythm was V, fib, ROSC was achieved after 35 minutes. Pt is currently being managed in ICU, he has not been able to be weaned from the vent and therefore tracheostomy was done today. According to RN, pt did have high residuals from tube feeding. - C. Diff toxin positive, epid negative- Flagyl and Vancomycin - ETOH abuse- according to records quit drinking 4 weeks prior to arrival - Elevated LFTs likely secondary to above Plan: [place] Appreciated dietary recommendations EGD with PEG tomorrow Obtain consent Hold TF after MN Hold Heparin in AM Continue treatment for C. Diff ID following Further recommendations to follow Pt has been seen and examined by myself and Dr. Cook and this note is written on his behalf <Jennifer Carl - Last Filed: 02/08/18 15:49> - Attending Attestation Seen and examined, discussed with his mother. Will proceed in AM with PEG placement. Thank you for the consult. <Travis Cook - Last Filed: 02/08/18 16:20>
--- NOTE | 2018-02-08 16:05 | XR ---
EXAM DATE: 02/08/2018 4:03 PM EDT AGE/SEX: 32 years / Male INDICATIONS: Trach placement. CLINICAL DATA: This is the patient's subsequent encounter. Patient reports that signs and symptoms h ave been present for 1 week and indicates a pain score of Nonresponsive. MEDICAL/SURGICAL HISTORY: . Alcohol abuse. Depression. Pancreatitis. Seizures None. COMPARISON: [facility] [place], CHEST 1V SINGLE AP, 02/06/2018. . FINDINGS: A dense consolidating infiltrate has developed in the right midlung probably within the upper lobe. S treaky airspace disease is also evident in the left base. Endotracheal tube has been replaced with a tracheostomy tube. Nasogastric tube remains in good position CONCLUSION: 1. Consolidating infiltrate has developed in the right midlung and left base 2. Interval placement of a tracheostomy tube and removal of endotracheal tube. 3. Otherwise stable chest. Electronically signed by: Alphonse Crawford MD 02/08/2018 4:04 PM EDT
--- NOTE | 2018-02-08 16:22 | P.PCN ---
Date of procedure: 02/08/18 Pre-op diagnosis: Acute respiratory failure, sepsis, pneumonia, MARK Post-op diagnosis: same Procedure: Procedure: Percutaneous tracheostomy with bronchoscopic guidance Operators: Dr. Matt Serna for percutaneous tracheostomy, Dr. Cho for bronchoscopy Informed consent obtained from family and documented on chart Preoperative diagnosis: acute respiratory failure, sepsis, pneumonia Postoperative diagnosis: Same Anesthesia used: Versed 10 mg IV, fentanyl 250 g IV, rocuronium 100 mg IV for neuromuscular blockade. 1.% lidocaine for local infiltration anesthesia Procedure: After ensuring adequate sedation/analgesia neuromuscular blockade, patient was positioned appropriately. After sterile prepping and draping, 1% lidocaine was used for local infiltration anesthesia. Dr. Cho proceeded bronchoscopy and withdrawing ET tube. Tracheal position was visualized by transillumination. Introducer needle was inserted into the trachea under bronchoscopic guidance. A guidewire was passed via needle and was visualized passing down the trachea following which needle was then removed. Punch dilator was used to dilate the tracheal ring following which tracheostomy dilator assembly was mounted over the guidewire and advanced to dilate the trachea with dilator being visualized via bronchoscopic guidance entering the trachea during dilation without injuring the posterior tracheal wall. Following this dilator assembly was removed and percutaneous tracheostomy mounted over dilator was advanced over the guidewire into the trachea under direct visualization following which guidewire/dilator were removed. Bronchoscope was inserted at this point by Dr. Cho via newly inserted tracheostomy and appropriate placement was confirmed by visualizing tracheal rings following which bronchoscope was withdrawn and inner cannula was placed via tracheostomy. After inflating cuff patient was connected to mechanical ventilation via tracheostomy. 4 interrupted sutures were used to secure tracheostomy to neck. Patient tolerated the procedure well with no immediate complications noted. Good hemostasis was achieved at the end of procedure. Postprocedure chest x-ray was ordered and was pending at the time of this dictation and will be reviewed when available. Pathology: none sent Condition: critical Disposition: no change
--- NOTE | 2018-02-08 16:44 | XR ---
EXAM DATE: 02/08/2018 4:29 PM EDT AGE/SEX: 32 years / Male INDICATIONS: High tube feed residuals. CLINICAL DATA: This is the patient's initial encounter. Patient reports that signs and symptoms have been present for 4 - 6 days and indicates a pain score of Nonresponsive. MEDICAL/SURGICAL HISTORY: Seizures. pancreatitis None. COMPARISON: [facility] – [place], CT ABDOMEN & PELVIS W/O CONTRAST, 01/28/2018. . FINDINGS: NG tube coiled in the stomach. Nonobstructive bowel gas pattern. Osseous structures are intact. Phle boliths in the pelvis. Pulmonary infiltrates are noted. CONCLUSION: NG tube placement as above. Electronically signed by: Justice Dominguez MD 02/08/2018 4:42 PM EDT
--- NOTE | 2018-02-08 18:13 | P.PCN ---
Procedure: Diagnosis: Resolving ARDS, hypoxemic respiratory failure Procedure: Therapeutic flexible bronchoscopy Narrative: Timeout performed, patient suitably identified. Patient chronically intubated in the orotracheal route and on mechanical ventilation. Usual ICU monitoring devices are in place. Versed 5 mg, fentanyl 100 mcg, rocuronium 100 mg administered intravenously. Through the ventilator circuit with an elbow placed for sealed sidehole access the bronchoscope was delivered into the main trachea. The trachea and major stem bronchi were clean and free of irritation. The segmental and subsegmental bronchi contained thick sputum on both sides.. The endotracheal tube and bronchoscope were withdrawn then to the level of the cricoid which time visualization was provided while the percutaneous tracheostomy was placed by a separate team. Immediately upon insertion of the percutaneous tracheostomy the bronchoscope was delivered through the new tube and verified that the tube was within the main trachea and safely above the matt. The inner cannula was then inserted and the ventilator circuit was reconnected to the new tracheostomy tube. Good return of air was visualized by ventilator waveforms. Chest wall movement was good. Oxygen saturation was maintained at greater than 96% throughout the procedure.
[2018-02-08 20:33] LABS: Bacteria,Urine Moderate /hpf; Bilirubin,Urine Negative (Negative); Clarity,Urine Turbid (Clear); Color,Urine Yellow (Yellw/Straw); Glucose,Urine (UA) Negative (Negative); Hyaline Casts,Urine 4 /lpf (0-3); Leukocyte Esterase,Urine Moderate (Negative); Mucus,Urine Few /lpf (Occasional); Nitrite,Urine Negative (Negative); Specific Gravity,Urine 1.016 (1.002-1.035)
[2018-02-09] MEDS: Propofol 1000 mg/100 ml Inj 1,000 MG/100 ML BOTTLE IV.CONT PRN ×6 (00:22→19:21)
[2018-02-09] MEDS: Midazolam 50 MG/50 ML Inj 50 MG/50 ML BAG IV.CONT PRN ×3 (04:06→23:00)
[2018-02-09] MEDS: Insulin NovoLOG Aspart Correctional Sugar Inj SQ SCH ×5 (04:07→20:20)
[2018-02-09] MEDS: Oral Hygiene Kit OROPHARYNG SCH ×4 (04:07→23:01)
[2018-02-09 04:13] LABS: Baso % (Auto) 0.3 % (0.0-2.0); Eos # (Auto) 0.2 th/mm3 (0.0-0.4); Eos % (Auto) 1.8 % (0.0-4.0); Hemoglobin 7.5 gm/dL (13.0-17.0); Lymph # (Auto) 0.9 th/mm3 (1.0-4.8); Lymph % (Auto) 6.7 % (9.0-44.0); Mean Corpuscular HGB Conc 32.7 % (32.0-36.0); Mean Corpuscular Hemoglobin 33.3 pg (27.0-34.0); Mean Corpuscular Volume 101.9 fL (80.0-100.0); Mean Platelet Volume 9.1 fL (7.0-11.0); Mono # (Auto) 0.6 th/mm3 (0.0-0.9); Mono % (Auto) 4.5 % (0.0-8.0); Neut # (Auto) 11.6 th/mm3 (1.8-7.7); Neut % (Auto) 86.7 % (16.0-70.0); Platelet Count 276 th/mm3 (150-450); Red Blood Count 2.26 mil/mm3 (4.50-5.90); Red Cell Distribution Width 17.2 % (11.6-17.2); White Blood Count 13.4 th/mm3 (4.0-11.0)
[2018-02-09 04:44] LABS: Albumin 1.2 g/dL (3.4-5.0); Calcium 8.2 mg/dL (8.5-10.1); Carbon Dioxide 22.1 meq/L (21.0-32.0); Magnesium 1.7 mg/dL (1.5-2.5); Potassium 3.5 meq/L (3.5-5.1)
[2018-02-09 04:47] LABS: Vancomycin,Random 15.5 Comment
[2018-02-09] MEDS: fentaNYL 10 mcg/mL Premix Drip 2,500 MCG/250 ML BAG IV.SIG PRN ×2 (06:17→15:23)
[2018-02-09] MEDS: Chlorhexidine 0.12% Oral Kit 15 ML UDC OROPHARYNG SCH ×2 (07:42→19:21)
[2018-02-09] MEDS: Aspirin 325 MG Tablet PO SCH (08:50)
[2018-02-09] MEDS: levETIRAcetam 500 MG Tablet NG/OG SCH ×2 (08:51→20:20)
[2018-02-09] MEDS: QUEtiapine 100 MG Tablet NG/OG SCH (08:51)
[2018-02-09] MEDS: Pantoprazole Inj 40 MG Vial IV.PUSH SCH (08:51)
[2018-02-09] MEDS: Senna/Docusate Sodium 8.6/50 MG Tablet PO SCH ×2 (08:51→22:23)
[2018-02-09] MEDS ORDERED: Chlorothiazide Inj 500 MG Vial IV.PUSH ONE (09:21)
[2018-02-09] MEDS: Dextrose 5% in Water Inj 1,000 ML IV.CONT SCH ×2 (10:14→23:01)
[2018-02-09] MEDS: Dextrose 5%/NaCl 0.45% Inj 1,000 ML IV.SIG SCH (10:54)
--- NOTE | 2018-02-09 12:27 | P.PNID ---
Subjective Remarks: Patient is sedated on the ventilator. Status post tracheostomy 02/08/2018. Arrangements being made to place a PEG tube today. Temp is lower. White blood cell count is lower. Patient has diffuse maculopapular rash at the abdomen and legs arms. Urine culture pending. Cefepime was discontinued 02/08/2018. Last blood culture on 02/05/2018 as no growth. Chest x-ray on 02/06 showed subsegmental airspace disease improved. CT scan of the head showed no acute abnormality. This is a 32-year-old white male who presented to the emergency department with 2-day history of nausea, vomiting, and diarrhea. The patient ended up intubated after he went into ventricular fibrillation cardiac arrest and was resuscitated. He also was noted to have seizure activity. Past Medical History: PAST MEDICAL HISTORY: Alcohol abuse, gastroesophageal reflux disease, hernia, depression, pancreatitis, seizure disorder, left inguinal hernia repair. Allergies/Adverse Reactions: Allergies Sulfa (Sulfonamide Antibiotics) Allergy (Severe, Verified 10/11/17 07:56) hives Objective Vital Signs 02/08/18 13:00 02/08/18 14:00 02/08/18 15:00 Temperature Pulse Rate 99 H 96 H 118 H Respiratory Rate 18 20 22 Blood Pressure 103/54 L 100/56 L 105/58 L Pulse Oximetry 98 19 L 100 02/08/18 15:21 02/08/18 15:32 02/08/18 16:00 Temperature Pulse Rate 96 H Respiratory Rate 20 Blood Pressure 100/56 L 103/58 L Pulse Oximetry 100 96 02/08/18 17:00 02/08/18 18:00 02/08/18 19:00 Temperature Pulse Rate 101 H 96 H 96 H Respiratory Rate 20 20 20 Blood Pressure 105/58 L 104/57 L 103/55 L Pulse Oximetry 97 96 95 02/08/18 19:30 02/08/18 19:45 02/08/18 20:00 Temperature 99.1 F Pulse Rate 96 H 97 H 100 H Respiratory Rate 20 20 20 Blood Pressure 102/56 L 105/58 L 105/59 L Pulse Oximetry 94 L 95 95 02/08/18 20:15 02/08/18 20:18 02/08/18 20:30 Temperature Pulse Rate 100 H 98 H Respiratory Rate 20 20 20 Blood Pressure 105/57 L 103/58 L Pulse Oximetry 96 96 96 02/08/18 20:45 02/08/18 21:00 02/08/18 21:15 Temperature Pulse Rate 97 H 97 H 97 H Respiratory Rate 20 5 L 20 Blood Pressure 101/56 L 105/57 L 101/56 L Pulse Oximetry 96 96 95 02/08/18 21:30 02/08/18 21:45 02/08/18 22:00 Temperature Pulse Rate 97 H 100 H 102 H Respiratory Rate 20 23 21 Blood Pressure 109/64 113/67 114/66 Pulse Oximetry 94 L 94 L 94 L 02/08/18 22:15 02/08/18 22:30 02/08/18 22:45 Temperature Pulse Rate 103 H 103 H 101 H Respiratory Rate 20 21 20 Blood Pressure 114/62 113/61 111/58 L Pulse Oximetry 93 L 94 L 94 L 02/08/18 23:00 02/08/18 23:15 02/08/18 23:30 Temperature Pulse Rate 105 H 102 H 103 H Respiratory Rate 21 20 19 Blood Pressure 123/72 113/63 114/61 Pulse Oximetry 97 94 L 94 L 02/08/18 23:45 02/09/18 00:00 02/09/18 00:15 Temperature 99.9 F H Pulse Rate 106 H 109 H 108 H Respiratory Rate 20 21 18 Blood Pressure 116/63 117/63 116/62 Pulse Oximetry 94 L 100 95 02/09/18 00:30 02/09/18 00:45 02/09/18 01:00 Temperature Pulse Rate 111 H 110 H 109 H Respiratory Rate 20 20 20 Blood Pressure 115/64 110/58 L 104/57 L Pulse Oximetry 96 96 97 02/09/18 01:12 02/09/18 01:15 02/09/18 01:30 Temperature Pulse Rate 106 H 104 H Respiratory Rate 18 18 18 Blood Pressure 107/58 L 106/56 L Pulse Oximetry 98 98 98 02/09/18 01:45 02/09/18 02:00 02/09/18 02:15 Temperature Pulse Rate 103 H 104 H 104 H Respiratory Rate 18 18 18 Blood Pressure 107/55 L 108/59 L 109/59 L Pulse Oximetry 98 98 99 02/09/18 02:30 02/09/18 02:45 02/09/18 03:00 Temperature Pulse Rate 104 H 102 H 101 H Respiratory Rate 18 18 18 Blood Pressure 107/55 L 104/58 L Pulse Oximetry 99 99 99 02/09/18 03:15 02/09/18 03:30 02/09/18 03:45 Temperature Pulse Rate 100 H 100 H 101 H Respiratory Rate 18 18 18 Blood Pressure 99/54 L 100/55 L 103/57 L Pulse Oximetry 99 99 100 02/09/18 04:00 02/09/18 04:15 02/09/18 04:30 Temperature Pulse Rate 102 H 104 H 103 H Respiratory Rate 16 16 19 Blood Pressure 107/57 L 113/65 110/58 L Pulse Oximetry 100 100 99 02/09/18 04:32 02/09/18 04:45 02/09/18 05:00 Temperature Pulse Rate 106 H 108 H Respiratory Rate 18 18 18 Blood Pressure 107/57 L 107/57 L Pulse Oximetry 98 98 98 02/09/18 05:15 02/09/18 05:30 02/09/18 05:45 Temperature Pulse Rate 106 H 103 H 102 H Respiratory Rate 18 18 17 Blood Pressure 108/55 L 103/55 L 128/59 L Pulse Oximetry 98 98 99 02/09/18 06:00 02/09/18 07:00 02/09/18 08:00 Temperature 99.6 F Pulse Rate 102 H 96 H 101 H Respiratory Rate 18 18 23 Blood Pressure 115/53 L 130/61 Pulse Oximetry 99 100 98 02/09/18 08:45 02/09/18 09:00 02/09/18 10:00 Temperature Pulse Rate 102 H 105 H Respiratory Rate 19 18 18 Blood Pressure 122/57 L 152/66 H Pulse Oximetry 99 98 98 02/09/18 11:39 Temperature Pulse Rate Respiratory Rate 22 Blood Pressure Pulse Oximetry 99 Intake & Output 02/08/18 02/09/18 02/09/18 18:59 06:59 18:59 Intake Total 1107.5 / 1107.5 1550 / 1550 1000 / 1000 Output Total 550 / 550 900 / 900 Balance 557.5 / 557.5 650 / 650 1000 / 1000 Weight 88.1 kg Intake: IV 1107.5 / 1107.5 1150 / 1150 1000 / 1000 Versed Inj 50 mg In 50 ml @ 2 100 / 100 50 / 50 MG/HR 2 mls/hr IV.CONT TITRATE PRN Rx#:[id number] Diprivan 1000 mg/100 ml Inj 1, 200 / 200 300 / 300 200 / 200 000 mg In 100 ml @ 5 MCG/KG/MIN 2.58 mls/hr IV.CONT TITRATE PRN Rx#:[id number] Azactam Inj 1,000 MG In NS Inj 100 / 100 100 / 100 100 / 100 100 ML @ 200 mls/hr IV.SIG Q8H [facility] Rx#:[id number] D5W/1/2 NS Inj 1,000 ML @ 42 600 / 600 mls/hr IV.SIG .[id number] [facility] Rx#: [id number] fentaNYL 10 mcg/mL Premix Drip 250 / 250 500 / 500 2,500 mcg In 250 ml @ 50 MCG/HR 5 mls/hr IV.SIG TITRATE PRN Rx #:[id number] Flagyl 500 MG Inj 100 ML @ 100 200 / 200 200 / 200 100 / 100 mls/hr IV.SIG Q6H [facility] Rx#: [id number] Water Bolus Amount 400 / 400 Output: Stool 50 / 50 Urine Amount (Catheter) 550 / 550 850 / 850 Indwelling Urethral Catheter 550 / 550 850 / 850 Other: Date of Last Bowel Movement 02/08/18 02/09/18 02/09/18 02/05/18 22:13 Blood - Peripheral Aerobic Blood Culture - Preliminary No growth in 4 days 02/05/18 22:13 Blood - Peripheral Anaerobic Blood Culture - Preliminary No growth in 4 days 02/05/18 22:18 Blood - Peripheral Aerobic Blood Culture - Preliminary No growth in 4 days 02/05/18 22:18 Blood - Peripheral Anaerobic Blood Culture - Preliminary No growth in 4 days 02/08/18 17:00 Catheterized Urine Urine Culture - Pending 02/06/18 08:25 Sputum - Endotracheal Gram Stain - Final 02/06/18 08:25 Sputum - Endotracheal Sputum Culture - Final Heavy growth normal respiratory pepito 02/06/18 03:00 Catheterized Urine Urine Culture - Final No growth in 48 hours Lab - Hematology Results 02/07/18 02/08/18 02/09/18 16:36 04:15 03:45 WBC 19.5 H 16.5 H 13.4 H RBC 2.40 L 2.29 L 2.26 L Hgb 8.1 L 7.7 L 7.5 L Hct 24.6 L 23.5 L 23.0 L MCV 102.4 H 102.2 H 101.9 H MCH 33.8 33.7 33.3 MCHC 33.0 32.9 32.7 RDW 17.7 H 17.6 H 17.2 Plt Count 204 231 276 MPV 9.3 9.2 9.1 Neut % (Auto) 88.7 H 86.7 H Lymph % (Auto) 5.8 L 6.7 L [place] % (Auto) 3.2 4.5 Eos % (Auto) 1.8 1.8 Baso % (Auto) 0.5 0.3 Neut # (Auto) 14.6 H 11.6 H Lymph # (Auto) 1.0 0.9 L [place] # (Auto) 0.5 0.6 Eos # (Auto) 0.3 0.2 Baso # (Auto) 0.1 0.0 WBC Differential . . Differential Comment Auto diff final Auto diff final Lab - Chemistry Results 02/07/18 02/07/18 02/07/18 13:01 15:54 19:33 Sodium Potassium Chloride Carbon Dioxide Anion Gap BUN Creatinine Estimated GFR POC Glucose 109 90 90 Random Glucose Calcium Phosphorus Magnesium Albumin 02/07/18 02/08/18 02/08/18 23:39 03:36 04:15 Sodium 147 H Potassium 3.4 L Chloride 113 H Carbon Dioxide 23.4 Anion Gap 11 BUN 16 Creatinine 1.36 H Estimated GFR 61 L POC Glucose 91 75 Random Glucose 89 Calcium 8.2 L Phosphorus 3.3 Magnesium 2.0 Albumin 1.4 L 02/08/18 02/08/18 02/08/18 08:04 10:25 12:16 Sodium Potassium Chloride Carbon Dioxide Anion Gap BUN Creatinine Estimated GFR POC Glucose 83 86 Random Glucose Calcium Phosphorus 3.3 Magnesium Albumin 02/08/18 02/08/18 02/08/18 17:52 19:30 23:45 Sodium Potassium Chloride Carbon Dioxide Anion Gap BUN Creatinine Estimated GFR POC Glucose 96 87 76 Random Glucose Calcium Phosphorus Magnesium Albumin 02/09/18 02/09/18 02/09/18 03:45 04:05 07:32 Sodium 149 H Potassium 3.5 Chloride 115 H Carbon Dioxide 22.1 Anion Gap 12 BUN 14 Creatinine 1.27 Estimated GFR 66 L POC Glucose 85 88 Random Glucose 93 Calcium 8.2 L Phosphorus 3.0 Magnesium 1.7 Albumin 1.2 L 02/09/18 11:23 Sodium Potassium Chloride Carbon Dioxide Anion Gap BUN Creatinine Estimated GFR POC Glucose 85 Random Glucose Calcium Phosphorus Magnesium Albumin Imaging: ITS Impressions Abdomen/Pelvis CT 01/28/18 00:00 CONCLUSION: 1. There is a new finding of presumed pneumobilia in the left hepatic lobe. Is there a history of recent instrumentation? Portal venous gas is not entirely excluded. 2. Mild induration of the peripancreatic fat proximally suggest mild acute pancreatitis. 3. Small fat-containing umbilical hernia. 4. Pulmonary consolidation is noted as above. 5. Mild gaseous distention of the stomach. Chest CT 01/28/18 00:00 CONCLUSION: 1. Bilateral consolidation most pronounced in the left lower lobe and left upper lobe posteriorly. Gallbladder Ultrasound 01/30/18 00:00 CONCLUSION: 1. Unremarkable study. Abdomen/Bladder Ultrasound 01/30/18 15:17 CONCLUSION: 1. Negative renal sonogram. Head CT 02/06/18 03:50 CONCLUSION: 1. No acute intracranial abnormalities. . Abdomen X-Ray 02/08/18 00:00 CONCLUSION: NG tube placement as above. Chest X-Ray 02/08/18 14:56 CONCLUSION: 1. Consolidating infiltrate has developed in the right midlung and left base 2. Interval placement of a tracheostomy tube and removal of endotracheal tube. 3. Otherwise stable chest. Physical Exam: PHYSICAL EXAMINATION: GENERAL: Sedated on the ventilator. HEENT: Pupils are equal and reactive. No icterus. Oropharynx intubated. NECK: No adenopathy or swelling. LUNGS: No significant rhonchi. HEART: Regular S1 and S2. No murmurs heard. ABDOMEN: Bowel sounds diminished, high-pitched. Soft. No tenderness appreciated on palpation. EXTREMITIES: No clubbing, cyanosis; trace edema of the hands. SKIN: Diffuse maculopapular rash. NEUROLOGIC: Unable to fully assess. PSYCHIATRIC: Unable to fully assess. Assessment and Plan - Plan IMPRESSION: 1. Possible sepsis. However cultures have been negative. Previous staph coagulase positive blood culture felt to be contamination. Subsequent cultures negative. No clear source. 2. Skin rash. Likely drug related. Probably cefepime was associated. 3. Chest x-ray showing improved airspace disease. Patient felt to probably have aspiration. 4. Status post cardiac arrest. 5. Acute respiratory failure. 6. Acute renal failure. Improved. 7. Seizure disorder. 8. Diarrhea. Questionable antibiotic associated. C. difficile toxin negative. RECOMMENDATIONS: 1. Continue vancomycin intravenous. 2. Continue Azactam. 3. Stop Flagyl. 4. Continue vancomycin p.o. 5. Monitor skin rash. 6. Monitor urine culture. 7. Monitor temperature. 8. Monitor clinical status. 9. Monitor white blood cell count.
[2018-02-09] MEDS ORDERED: Vancomycin Inj 1,500 MG in Sodium Chlor 0.9% Inj 500 ML IV.SIG ONE (13:00)
--- NOTE | 2018-02-09 13:11 | GIPROC ---
[facility] [address] [facility]. [facility], [address] EGD PROCEDURE REPORT EXAM DATE: 02/09/2018 PATIENT NAME: Ashkan Low MR #: [id number] BIRTHDATE: 1985 ATTENDING: Travis Cook MD ORDER #: [id number] DEVELOPMENT EDITOR: Kaylen Doyel and Joanie Ch STATUS: inpatient INDICATIONS: The patient is a 32 yr old male here for an EGD due to PEG Placement PROCEDURE PERFORMED: EGD w/ percutaneous gastrostomy tube placement MEDICATIONS: None and Per Anesthesia. TOPICAL ANESTHETIC: none CONSENT: The patient understands the risks and benefits of the procedure and understands that these risks include, but are not limited to: sedation, allergic reaction, infection, perforation and/or bleeding. Alternative means of evaluation and treatment include, among others: physical exam, x-rays, and/or surgical intervention. The patient elects to proceed with this endoscopic procedure. medical equipment was checked for proper function. Hand hygiene and appropriate measures for infection prevention was taken. After the risks, benefits and alternatives of the procedure were thoroughly explained, Informed consent was verified, confirmed and timeout was successfully executed by the treatment team. The patient was anesthetized with topical anesthesia and the Pentax [id number] endoscope was introduced through the mouth and advanced to the second portion of the duodenum. Retroflexion was performed and was normal The gastroscope was then slowly withdrawn and removed. The endoscopy was otherwise normal. ADVERSE EVENTS: There were no complications. IMPRESSIONS: 1. Normal endoscopy otherwise 2. 22F PEG tube placed successfully RECOMMENDATIONS: PEG recomendations: 1- NPO for 6 hours except for meds 2- Flush PEG tube every 6 hours with water and after each PEG feeding 3- May resume regular diet in the morning 4- May use Ensure or Boost etc. for PEG tube feeding PATIENT CONDITION: stable DISPOSITION: Observation REPEAT EXAM: NONE Travis Cook MD eSigned: Travis Cook MD 02/09/2018 1:10 PM cc:
[2018-02-09] MEDS ORDERED: MethylPREDNISolone Sod Succinate Inj 125 MG/2 ML Vial IV.PUSH ONE (14:03)
[2018-02-09] MEDS ORDERED: Potassium Chloride 25 MEQ Effervescent Tablet PO ONE (14:05)
--- NOTE | 2018-02-09 14:51 | P.PNCC ---
Subjective Subjective Remarks/Hospital Course: This is a 32-year-old male. Admission 01/28/2018. Past medical history includes seizure disorder/noncompliant with levetiracetam, previous EtOH sober for 4 weeks, anorexia, gastroesophageal reflux disease and chronic pancreatitis. Patient presented to [facility] 01/28/2018 with a two-day history of nausea vomiting and diarrhea. Patient's mother/discussed at bedside stated she had just had a "stomach flu" which she has currently recovered. Mom states that the patient has become fairly dehydrated is been having some cramping of his hands. She is worried that he is getting dehydrated and his potassium might begin low. He was unable to tolerate a banana so she gave him some potassium pills p.o. which she also did not tolerate and threw up. Sober 4 weeks according to mother. Patient was noted to have a low potassium at 2.0. Creatinine of 4.0. This is in line with his previous hospitalizations for acute dehydration. Lipase was slightly elevated. Patient does have a history of seizure disorder which is not compliant with levetiracetam. ED physician was called into room because the RN believed he had a seizure. Patient was unresponsive. Mother states this was not like any seizure that she had seen. Pulses not palpable therefore CPR was initiated. Initial rhythm was V. fib. Patient received amiodarone, lidocaine, epinephrine, bicarbonate, magnesium during the 35 minute code with return of spontaneous circulation after 35 minutes. Pupils are about 9 mils bilaterally and 6. When I saw the patient patient was actively thrashing moving all 4 extremities spontaneously but not to command. Pupils are round 8 mm bilaterally and nonreactive. Brain CT revealed no acute findings. CT thorax revealed a left upper and lower lobe. CT abdomen pelvis pending at time of dictation. Likely, troponin pending. EKG revealed incomplete right bundle block with ST depression in the inferior and lateral leads. Cardiology consulted. They will evaluate after stat echocardiogram and troponins been completed. Potassium will be replaced pending [facility] 01/29: persistently in shock. following commands this AM. trop uptrended overnight and now > 40. on levo @ 10, vasopressin. bedside echo with persistence of his global severe LV systolic dysfunction. IVC dilated without respiratory variation. initially attempted therapeutic hypothermia, but became arrhythmogenic and neurologic exam improved and now following commands, so hypothermia aborted. persistently hypokalemic and hypophosphatemic this AM. in addition, remains with severe metabolic alkalosis. 01/30: Troponin trending down, continues to have severe hypokalemia and metabolic alkalosis. Creatinine continues to trend up, only produced 200 cc of urine over the past 24 hours. 01/31: Patient seen by nephrology yesterday and given bumex, urine output dramatically increased, potassium improved with aggressive repletion, pressors now off and dobutamine at 5. 02/01: No issues overnight. Patient tolerated dobutamine at 2 yesterday, discontinued this morning. Switching propofol to precedex and would like to start SBTs today. Overall improved. 02/02: Tolerated switch to precedex yesterday and was on bipap 05/06 for several hours yesterday afternoon, placed back on AC overnight to avoid respiratory fatigue. 02/03: Patient had no overnight events, tolerated SBT x 5 hours yesterday. Significantly agitated this morning during sedation vacation. 02/04: Patient still struggles with agitation when we lighten sedation. 02/05: Temp 103F this morning, no obvious source of infection. Needs to have PICC line placed today. 02/06: reintubated yesterday. overnight persistently febrile. this morning appears in distress- tachypneic on the ventilator, acidotic. potassium up to 5.8 despite medical management. bedside echo with improving LVEF and completely collapsed IVC. no pericardial effusion. lung ultrasound without effusions. 02/07: Remains sedated, orally intubated on mechanical ventilation. On propofol fentanyl and Versed drips. Transfuse 1 unit PRBCs earlier today for drop in hemoglobin. 02/08: Remains sedated, orally intubated on mechanical ventilation. On propofol fentanyl and Versed drips. Awaiting tracheostomy which is scheduled for later today. SUBJECTIVE 02/09: Overnight, new onset of maculopapular rash noted. Noted discontinuation of cefepime 02/08. Received 1 dose diphenhydramine overnight. Objective Vital Signs / I&O: Vital Signs 02/08/18 15:00 02/08/18 15:21 02/08/18 15:32 Temperature Pulse Rate 118 H Respiratory Rate 22 Blood Pressure 105/58 L 100/56 L Pulse Oximetry 100 100 02/08/18 16:00 02/08/18 17:00 02/08/18 18:00 Temperature Pulse Rate 96 H 101 H 96 H Respiratory Rate 20 20 20 Blood Pressure 103/58 L 105/58 L 104/57 L Pulse Oximetry 96 97 96 02/08/18 19:00 02/08/18 19:30 02/08/18 19:45 Temperature Pulse Rate 96 H 96 H 97 H Respiratory Rate 20 20 20 Blood Pressure 103/55 L 102/56 L 105/58 L Pulse Oximetry 95 94 L 95 02/08/18 20:00 02/08/18 20:15 02/08/18 20:18 Temperature 99.1 F Pulse Rate 100 H 100 H Respiratory Rate 20 20 20 Blood Pressure 105/59 L 105/57 L Pulse Oximetry 95 96 96 02/08/18 20:30 02/08/18 20:45 02/08/18 21:00 Temperature Pulse Rate 98 H 97 H 97 H Respiratory Rate 20 20 5 L Blood Pressure 103/58 L 101/56 L 105/57 L Pulse Oximetry 96 96 96 02/08/18 21:15 02/08/18 21:30 02/08/18 21:45 Temperature Pulse Rate 97 H 97 H 100 H Respiratory Rate 20 20 23 Blood Pressure 101/56 L 109/64 113/67 Pulse Oximetry 95 94 L 94 L 02/08/18 22:00 02/08/18 22:15 02/08/18 22:30 Temperature Pulse Rate 102 H 103 H 103 H Respiratory Rate 21 20 21 Blood Pressure 114/66 114/62 113/61 Pulse Oximetry 94 L 93 L 94 L 02/08/18 22:45 02/08/18 23:00 02/08/18 23:15 Temperature Pulse Rate 101 H 105 H 102 H Respiratory Rate 20 21 20 Blood Pressure 111/58 L 123/72 113/63 Pulse Oximetry 94 L 97 94 L 02/08/18 23:30 02/08/18 23:45 02/09/18 00:00 Temperature 99.9 F H Pulse Rate 103 H 106 H 109 H Respiratory Rate 19 20 21 Blood Pressure 114/61 116/63 117/63 Pulse Oximetry 94 L 94 L 100 02/09/18 00:15 02/09/18 00:30 02/09/18 00:45 Temperature Pulse Rate 108 H 111 H 110 H Respiratory Rate 18 20 20 Blood Pressure 116/62 115/64 110/58 L Pulse Oximetry 95 96 96 02/09/18 01:00 02/09/18 01:12 02/09/18 01:15 Temperature Pulse Rate 109 H 106 H Respiratory Rate 20 18 18 Blood Pressure 104/57 L 107/58 L Pulse Oximetry 97 98 98 02/09/18 01:30 02/09/18 01:45 02/09/18 02:00 Temperature Pulse Rate 104 H 103 H 104 H Respiratory Rate 18 18 18 Blood Pressure 106/56 L 107/55 L 108/59 L Pulse Oximetry 98 98 98 02/09/18 02:15 02/09/18 02:30 02/09/18 02:45 Temperature Pulse Rate 104 H 104 H 102 H Respiratory Rate 18 18 18 Blood Pressure 109/59 L 107/55 L 104/58 L Pulse Oximetry 99 99 99 02/09/18 03:00 02/09/18 03:15 02/09/18 03:30 Temperature Pulse Rate 101 H 100 H 100 H Respiratory Rate 18 18 18 Blood Pressure 99/54 L 100/55 L Pulse Oximetry 99 99 99 02/09/18 03:45 02/09/18 04:00 02/09/18 04:15 Temperature Pulse Rate 101 H 102 H 104 H Respiratory Rate 18 16 16 Blood Pressure 103/57 L 107/57 L 113/65 Pulse Oximetry 100 100 100 02/09/18 04:30 02/09/18 04:32 02/09/18 04:45 Temperature Pulse Rate 103 H 106 H Respiratory Rate 19 18 18 Blood Pressure 110/58 L 107/57 L Pulse Oximetry 99 98 98 02/09/18 05:00 02/09/18 05:15 02/09/18 05:30 Temperature Pulse Rate 108 H 106 H 103 H Respiratory Rate 18 18 18 Blood Pressure 107/57 L 108/55 L 103/55 L Pulse Oximetry 98 98 98 02/09/18 05:45 02/09/18 06:00 02/09/18 07:00 Temperature Pulse Rate 102 H 102 H 96 H Respiratory Rate 17 18 18 Blood Pressure 128/59 L 115/53 L Pulse Oximetry 99 99 100 02/09/18 08:00 02/09/18 08:45 02/09/18 09:00 Temperature 99.6 F Pulse Rate 101 H 102 H Respiratory Rate 23 19 18 Blood Pressure 130/61 122/57 L Pulse Oximetry 98 99 98 02/09/18 10:00 02/09/18 11:00 02/09/18 11:39 Temperature 100.1 F H Pulse Rate 105 H 106 H Respiratory Rate 18 18 22 Blood Pressure 152/66 H 151/67 H Pulse Oximetry 98 99 99 02/09/18 12:00 02/09/18 14:00 Temperature 100.1 F H Pulse Rate 106 H 100 H Respiratory Rate 18 Blood Pressure 159/67 H Pulse Oximetry 99 Intake & Output 02/08/18 02/09/18 02/09/18 18:59 06:59 18:59 Intake Total 1107.5 / 1107.5 1550 / 1550 1050 / 1050 Output Total 550 / 550 900 / 900 Balance 557.5 / 557.5 650 / 650 1050 / 1050 Weight 88.1 kg Intake: IV 1107.5 / 1107.5 1150 / 1150 1050 / 1050 Versed Inj 50 mg In 50 ml @ 2 100 / 100 50 / 50 50 / 50 MG/HR 2 mls/hr IV.CONT TITRATE PRN Rx#:[id number] Diprivan 1000 mg/100 ml Inj 1, 200 / 200 300 / 300 200 / 200 000 mg In 100 ml @ 5 MCG/KG/MIN 2.58 mls/hr IV.CONT TITRATE PRN Rx#:[id number] Azactam Inj 1,000 MG In NS Inj 100 / 100 100 / 100 100 / 100 100 ML @ 200 mls/hr IV.SIG Q8H GERMAINE Rx#:[id number] D5W/1/2 NS Inj 1,000 ML @ 42 600 / 600 mls/hr IV.SIG .[id number] GERMAINE Rx#: [id number] fentaNYL 10 mcg/mL Premix Drip 250 / 250 500 / 500 2,500 mcg In 250 ml @ 50 MCG/HR 5 mls/hr IV.SIG TITRATE PRN Rx #:[id number] Flagyl 500 MG Inj 100 ML @ 100 200 / 200 200 / 200 100 / 100 mls/hr IV.SIG Q6H [facility] Rx#: [id number] Water Bolus Amount 400 / 400 Output: Stool 50 / 50 Urine Amount (Catheter) 550 / 550 850 / 850 Indwelling Urethral Catheter 550 / 550 850 / 850 Other: Date of Last Bowel Movement 02/08/18 02/09/18 02/09/18 Result Diagrams: 02/09/18 03:45 02/09/18 03:45 Other Results: Microbiology 02/05/18 22:13 Blood - Peripheral Aerobic Blood Culture - Preliminary No growth in 4 days 02/05/18 22:13 Blood - Peripheral Anaerobic Blood Culture - Preliminary No growth in 4 days 02/05/18 22:18 Blood - Peripheral Aerobic Blood Culture - Preliminary No growth in 4 days 02/05/18 22:18 Blood - Peripheral Anaerobic Blood Culture - Preliminary No growth in 4 days 02/06/18 08:25 Sputum - Endotracheal Gram Stain - Final 02/06/18 08:25 Sputum - Endotracheal Sputum Culture - Final Heavy growth normal respiratory pepito 02/06/18 03:00 Catheterized Urine Urine Culture - Final No growth in 48 hours 02/05/18 10:30 Stool Stool Occult Blood (JASON) - Final Hemoccult negative 01/31/18 15:00 Blood - Peripheral Aerobic Blood Culture - Final Staphylococcus epidermidis 01/31/18 15:00 Blood - Peripheral Anaerobic Blood Culture - Final No growth in 5 days 01/31/18 14:45 Blood - Peripheral Aerobic Blood Culture - Final No growth in 5 days 01/31/18 14:45 Blood - Peripheral Anaerobic Blood Culture - Final No growth in 5 days 01/28/18 17:55 Blood - Peripheral Aerobic Blood Culture - Final Staphylococcus hominis-hominis 01/28/18 17:55 Blood - Peripheral Anaerobic Blood Culture - Final No growth in 5 days 01/28/18 17:50 Blood - Peripheral Aerobic Blood Culture - Final No growth in 5 days 01/28/18 17:50 Blood - Peripheral Anaerobic Blood Culture - Final No growth in 5 days 01/30/18 16:01 Catheterized Urine Urine Culture - Final No growth in 48 hours 01/28/18 13:55 Sputum - Endotracheal Gram Stain - Final 01/28/18 13:55 Sputum - Endotracheal Sputum Culture - Final Heavy growth normal respiratory pepito 01/28/18 13:49 Urine - Catheterized Urine Legionella Antigen - Final Presumptive negative for Legionella pneumophila serogroup 1 antigen in urine, suggesting no recent or recurrent infection. Infection due to Legionella cannot be ruled out since other serogroups and species may cause disease, antigen may not be present in urine in early infection, and the level of antigen present in the urine may be below the detection limit of the test. 01/28/18 13:49 Urine - Catheterized Urine Streptococcus pneumoniae Antigen ( M - Final Presumptive negative for streptococcus pneumoniae antigen, suggesting no current or recent infection. Infection due to Streptococcus pneumoniae cannot be ruled out since the antigen present in the sample may be below the detection limit of the test. 01/28/18 13:51 Nasal Aspirate Influenza Types A,B Antigen - Final Negative for FLU A and B antigen Infection due to influenza A or B cannot be ruled out since the antigen present in the sample may be below the detection limit of the test. Imaging: Abdomen/Pelvis CT 01/28/18 00:00 CONCLUSION: 1. There is a new finding of presumed pneumobilia in the left hepatic lobe. Is there a history of recent instrumentation? Portal venous gas is not entirely excluded. 2. Mild induration of the peripancreatic fat proximally suggest mild acute pancreatitis. 3. Small fat-containing umbilical hernia. 4. Pulmonary consolidation is noted as above. 5. Mild gaseous distention of the stomach. Chest CT 01/28/18 00:00 CONCLUSION: 1. Bilateral consolidation most pronounced in the left lower lobe and left upper lobe posteriorly. Chest X-Ray 01/28/18 10:15 CONCLUSION: Endotracheal tube as above. Left lung consolidation. Head CT 01/28/18 10:19 CONCLUSION: 1. Negative CT Head non contrast. . Chest X-Ray 01/29/18 09:13 CONCLUSION: Right subclavian line as above. Gallbladder Ultrasound 01/30/18 00:00 CONCLUSION: 1. Unremarkable study. Chest X-Ray 01/30/18 05:00 CONCLUSION: Stable diffuse left lung airspace consolidation with bibasilar opacities likely representing atelectasis and possible small effusions. Abdomen/Bladder Ultrasound 01/30/18 15:17 CONCLUSION: 1. Negative renal sonogram. Chest X-Ray 02/04/18 05:00 CONCLUSION: Persistent consolidation in the lower lungs, slightly improved in the left lower lung. Chest X-Ray 02/05/18 00:00 CONCLUSION: ET tube is in excellent position. Lungs still mostly clear Chest X-Ray 02/06/18 01:30 CONCLUSION: Subsegmental airspace disease improved from February 05. Endotracheal tube and nasogastric tube in good position. Head CT 02/06/18 03:50 CONCLUSION: 1. No acute intracranial abnormalities. . Abdomen X-Ray 02/08/18 00:00 CONCLUSION: NG tube placement as above. Chest X-Ray 02/08/18 14:56 CONCLUSION: 1. Consolidating infiltrate has developed in the right midlung and left base 2. Interval placement of a tracheostomy tube and removal of endotracheal tube. 3. Otherwise stable chest. Objective Remarks: GENERAL: 32-year-old male currently on ventilator via tracheostomy HEENT: NCAT, pupils are equal round react about 3 meals bilaterally. Extraocular muscles are intact. Mucous membranes are moist and pink. NECK: Trachea midline. Site is clean dry and intact CHEST: Few coarse crackles appreciated no wheezing. CARDIOVASCULAR: RRR. S1, S2 predose for without murmur ABDOMEN: Soft, non-tender in all quadrants, fresh PEG tube site is clean dry and intact with minimal oozing MUSCULOSKELETAL: Warm and well perfused, maculopapular rash on thorax, bilateral upper and lower extremities. Improved trace peripheral edema NEUROLOGICAL: Withdraws to pain currently. Assessment and Plan - Assessment and Plan Plan: Neuro/Psych: Seizure disorder NOS History of EtOH sober 4 weeks History of anorexia/bulimia Acute metabolic encephalopathy Sedated on propofol, fentanyl. Midazolam drip Goal of RASS -2 Continue levetiracetam 500 BID (home dose) Home Quetiapine currently at 50 mg twice daily decreased Patient has a previous history of heavy EtOH abuse and bulimia as per mother-- continue thiamine CV: In-hospital cardiac arrest V. fib arrest Cardiogenic Shock-- resolved Severe LV systolic dysfunction- resolving. Septic shock Plan is still for cardiac perfusion study when creatinine improves Echo 01/28: severe LV systolic dysfunction, EF 20-25%. mildly depressed RV function. no valvular lesions. heparin drip on hold due to bleeding continue daily ASA 325 mg daily. Continued PO thiamine supplementation for ? beriberi Resp: Acute hypoxic respiratory failure- recurrent. Left upper/lower lobe pulmonary infiltrates-- improving Extubated 02/05, reintubated 02/05 for respiratory failure Chest post tracheostomy by Dr. Serna 02/08 Albuterol/ipratropium aerosols every 6 hours with albuterol aerosols every 2 hours as needed for dyspnea vent bundle hob elevated wean fio2 for goal spo2 > 90% GI: Elevated lipase/mild pancreatitis-- resolved Left hepatic pneumobilia history of chronic pancreatitis C. Difficile Colitis restart tube feeds after PEG tube placement. IV famotidine for GI prophylaxis Docusate serum/senna 1 tablet twice daily for bowel regimen Renal/ : Acute kidney injury-- improving, slowly Nance replaced 02/04. continue for accurate i/o's. Creatinine peaked around 6, continues to improve, but slowly currently 1.27. Defer diuresis nephrology. Received 1 dose of Diuril today. Nephrology following Endo: Sliding scale insulin with Accu-Cheks to maintain euglycemia aspart insulin every 6 hours, IV dextrose D5 water at 75 cc an hour Heme: Leukocytosis-- worsening. Macrocytic anemia- stable Monitor CBC daily. Follow trends. No indication for transfusion of blood products at this time ID: Septic shock C. Difficile Colitis Blood cultures on 01/28 and 01/31 showed coagulase negative staph hominis, likely contamination Sputum, UA and influenza all NGTD s/p zosyn for 7 days to treat pneumonia, d/c on 02/05 repeat blood cultures 02/05 no growth sent sputum culture urine culture 02/05 no growth started on PO Vanc 02/05 continue vancomycin IV and p.o. and IV aztreonam. Infectious disease following actively FEN: Hypopotassemia Hypernatremia Replace electrolytes as clinically indicated Currently on D5 water at 75 cc an hour MSK PT evaluate and treat DERM: Diffuse macular papular rash likely secondary to cefepime Scheduled diphenhydramine 25 mg every 6 hours, famotidine 20 twice daily and 1 dose of methylprednisolone succinate 140 mg IV 1 now. Monitor skin Discontinued Access: - 01/29 - 02/05 right SC TLC - 02/04 Nance for urinary retention Prophylaxis -GI-famotidine -DVT SCD/heparin drip on hold due to bleeding. Subcutaneous heparin for DVT prophylaxis placed on hold on 02/08 for planned tracheostomy and PEG and to be resumed following procedures. Level 2 follow-up Code Status: Full code
[2018-02-09] MEDS: Mag Sulf 1 gm/100 ml Premix 100 ML IV.SIG SCH ×2 (15:24→16:26)
--- NOTE | 2018-02-09 15:40 | P.PNNP ---
Subjective Interval history: patient was seen and examined. He had tracheostomy placed. PEG tube to be placed. Renal function has improved, hypernatremia is worse. Physical Exam Vital signs: Vital Signs 02/08/18 16:00 02/08/18 17:00 02/08/18 18:00 Temperature Pulse Rate 96 H 101 H 96 H Respiratory Rate 20 20 20 Blood Pressure 103/58 L 105/58 L 104/57 L Pulse Oximetry 96 97 96 02/08/18 19:00 02/08/18 19:30 02/08/18 19:45 Temperature Pulse Rate 96 H 96 H 97 H Respiratory Rate 20 20 20 Blood Pressure 103/55 L 102/56 L 105/58 L Pulse Oximetry 95 94 L 95 02/08/18 20:00 02/08/18 20:15 02/08/18 20:18 Temperature 99.1 F Pulse Rate 100 H 100 H Respiratory Rate 20 20 20 Blood Pressure 105/59 L 105/57 L Pulse Oximetry 95 96 96 02/08/18 20:30 02/08/18 20:45 02/08/18 21:00 Temperature Pulse Rate 98 H 97 H 97 H Respiratory Rate 20 20 5 L Blood Pressure 103/58 L 101/56 L 105/57 L Pulse Oximetry 96 96 96 02/08/18 21:15 02/08/18 21:30 02/08/18 21:45 Temperature Pulse Rate 97 H 97 H 100 H Respiratory Rate 20 20 23 Blood Pressure 101/56 L 109/64 113/67 Pulse Oximetry 95 94 L 94 L 02/08/18 22:00 02/08/18 22:15 02/08/18 22:30 Temperature Pulse Rate 102 H 103 H 103 H Respiratory Rate 21 20 21 Blood Pressure 114/66 114/62 113/61 Pulse Oximetry 94 L 93 L 94 L 02/08/18 22:45 02/08/18 23:00 02/08/18 23:15 Temperature Pulse Rate 101 H 105 H 102 H Respiratory Rate 20 21 20 Blood Pressure 111/58 L 123/72 113/63 Pulse Oximetry 94 L 97 94 L 02/08/18 23:30 02/08/18 23:45 02/09/18 00:00 Temperature 99.9 F H Pulse Rate 103 H 106 H 109 H Respiratory Rate 19 20 21 Blood Pressure 114/61 116/63 117/63 Pulse Oximetry 94 L 94 L 100 09/13/18 00:15 02/09/18 00:30 02/09/18 00:45 Temperature Pulse Rate 108 H 111 H 110 H Respiratory Rate 18 20 20 Blood Pressure 116/62 115/64 110/58 L Pulse Oximetry 95 96 96 02/09/18 01:00 02/09/18 01:12 02/09/18 01:15 Temperature Pulse Rate 109 H 106 H Respiratory Rate 20 18 18 Blood Pressure 104/57 L 107/58 L Pulse Oximetry 97 98 98 02/09/18 01:30 02/09/18 01:45 02/09/18 02:00 Temperature Pulse Rate 104 H 103 H 104 H Respiratory Rate 18 18 18 Blood Pressure 106/56 L 107/55 L 108/59 L Pulse Oximetry 98 98 98 02/09/18 02:15 02/09/18 02:30 02/09/18 02:45 Temperature Pulse Rate 104 H 104 H 102 H Respiratory Rate 18 18 18 Blood Pressure 109/59 L 107/55 L 104/58 L Pulse Oximetry 99 99 99 02/09/18 03:00 02/09/18 03:15 02/09/18 03:30 Temperature Pulse Rate 101 H 100 H 100 H Respiratory Rate 18 18 18 Blood Pressure 99/54 L 100/55 L Pulse Oximetry 99 99 99 02/09/18 03:45 02/09/18 04:00 02/09/18 04:15 Temperature Pulse Rate 101 H 102 H 104 H Respiratory Rate 18 16 16 Blood Pressure 103/57 L 107/57 L 113/65 Pulse Oximetry 100 100 100 02/09/18 04:30 02/09/18 04:32 02/09/18 04:45 Temperature Pulse Rate 103 H 106 H Respiratory Rate 19 18 18 Blood Pressure 110/58 L 107/57 L Pulse Oximetry 99 98 98 02/09/18 05:00 02/09/18 05:15 02/09/18 05:30 Temperature Pulse Rate 108 H 106 H 103 H Respiratory Rate 18 18 18 Blood Pressure 107/57 L 108/55 L 103/55 L Pulse Oximetry 98 98 98 02/09/18 05:45 02/09/18 06:00 02/09/18 07:00 Temperature Pulse Rate 102 H 102 H 96 H Respiratory Rate 17 18 18 Blood Pressure 128/59 L 115/53 L Pulse Oximetry 99 99 100 02/09/18 08:00 02/09/18 08:45 02/09/18 09:00 Temperature 99.6 F Pulse Rate 101 H 102 H Respiratory Rate 23 19 18 Blood Pressure 130/61 122/57 L Pulse Oximetry 98 99 98 02/09/18 10:00 02/09/18 11:00 02/09/18 11:39 Temperature 100.1 F H Pulse Rate 105 H 106 H Respiratory Rate 18 18 22 Blood Pressure 152/66 H 151/67 H Pulse Oximetry 98 99 99 02/09/18 12:00 02/09/18 14:00 Temperature 100.1 F H Pulse Rate 106 H 100 H Respiratory Rate 18 Blood Pressure 159/67 H Pulse Oximetry 99 Intake & Output 02/08/18 02/09/18 02/09/18 18:59 06:59 18:59 Intake Total 1107.5 / 1107.5 1550 / 1550 1914 Output Total 550 / 550 900 / 900 Balance 557.5 / 557.5 650 / 650 1914 Weight 88.1 kg Intake: IV 1107.5 / 1107.5 1150 / 1150 1914 Versed Inj 50 mg In 50 ml @ 2 100 / 100 50 / 50 50 / 50 MG/HR 2 mls/hr IV.CONT TITRATE PRN Rx#:[id number] Diprivan 1000 mg/100 ml Inj 1, 200 / 200 300 / 300 300 / 300 000 mg In 100 ml @ 5 MCG/KG/MIN 2.58 mls/hr IV.CONT TITRATE PRN Rx#:[id number] Azactam Inj 1,000 MG In NS Inj 100 / 100 100 / 100 100 / 100 100 ML @ 200 mls/hr IV.SIG Q8H [facility] Rx#:[id number] D5W/1/2 NS Inj 1,000 ML @ 42 600 / 600 mls/hr IV.SIG .[id number] [facility] Rx#: [id number] Vancomycin Inj 1,500 MG In NS 515 / 515 Inj 500 ML @ 250 mls/hr IV.SIG ONCE ONE Rx#:[id number] fentaNYL 10 mcg/mL Premix Drip 250 / 250 500 / 500 250 / 250 2,500 mcg In 250 ml @ 50 MCG/HR 5 mls/hr IV.SIG TITRATE PRN Rx #:[id number] Flagyl 500 MG Inj 100 ML @ 100 200 / 200 200 / 200 100 / 100 mls/hr IV.SIG Q6H [facility] Rx#: [id number] Water Bolus Amount 400 / 400 Output: Stool 50 / 50 Urine Amount (Catheter) 550 / 550 850 / 850 Indwelling Urethral Catheter 550 / 550 850 / 850 Other: Date of Last Bowel Movement 02/08/18 02/09/18 02/09/18 Narrative: GENERAL: on the vent. Frail, muscle wasting. s/p tracheostomy. NECK: No carotid bruits. No JVD. CARDIOVASCULAR: Regular rate and rhythm. No murmur appreciated. RESPIRATORY: Mechanically ventilated. Coarse breath sounds. MUSCULOSKELETAL: No clubbing or cyanosis. No edema. NEUROLOGICAL: sedated. - Urinary Catheter Management Coude Cath placed during this visit: yes, but has since been removed by the nurse Reason for continuing: Decision to DC catheter Insertion date: 01/28/18 Insertion time: 13:15 Removal date: 02/03/18 Removal time: 15:15 Straight Cath placed during this visit: yes, but has since been removed by the nurse Reason for continuing: Acute urinary retention Insertion date: 02/04/18 Insertion time: 07:00 Removal date: 02/04/18 Indwelling Urethral Catheter Cath placed during this visit: yes, but has since been removed by the nurse Reason for continuing: Decision to DC catheter Insertion date: 02/04/18 Insertion time: 07:00 Removal date: 02/09/18 Removal time: 14:10 Assessment and Plan - Assessment (1) Acute kidney failure Code(s): N17.9 - Acute kidney failure, unspecified Status: Acute Plan: Most likely suffered ATN. Renal function has improved. Monitor. Avoid nephrotoxic agents. No need for bicarbonate drip. Changed IVF to D5W, a dose of Diuril today. (2) Hypokalemia Code(s): E87.6 - Hypokalemia Status: Acute Plan: Replace potassium as needed. (3) Cardiomyopathy Code(s): I42.9 - Cardiomyopathy, unspecified Status: Acute Plan: Troponin was high, cardiology following. Alcohol induced cardiomyopathy is a possibility.
--- NOTE | 2018-02-09 18:02 | MR ---
EXAM DATE: 02/09/2018 5:54 PM EDT AGE/SEX: 32 years / Male INDICATIONS: . Post code. CLINICAL DATA: This is the patient's initial encounter. Patient reports that signs and symptoms have been present for 1 day and indicates a pain score of Nonresponsive. MEDICAL/SURGICAL HISTORY: None. Inguinal hernia repair. COMPARISON: [facility] [place], CT HEAD W/O CONTRAST, 02/06/2018. [facility] [place], MRI BRAIN W & W/O CONTRAST, 08/28/2015. . TECHNIQUE: Multiplanar, multisequence examination of the brain was performed without contrast. FINDINGS: Cerebrum: The ventricles are normal for age. No evidence of midline shift, mass lesion, hemorrhage or acute infarction. No extraaxial fluid collections are seen. The pituitary gland and suprasellar cistern are normal in configuration. White Matter: No significant signal abnormalities are seen in the white matter. Posterior Fossa: The cerebellum and brainstem are intact. The 4th ventricle is midline. The cerebel lopontine angle is unremarkable. The cerebellar tonsils are normal in position. Diffusion Imaging: No focal areas of restricted diffusion are seen. No evidence of acute infarction . Extracranial: There is fluid and mucoperiosteal thickening of the visualized paranasal sinuses and a lso the bilateral mastoid air cells. CONCLUSION: 1. Normal MRI of the brain. 2. Sinusitis and mastoiditis. Electronically signed by: Alejandro Lawson MD 02/09/2018 6:00 PM EDT
[2018-02-09] MEDS: Famotidine PF Inj 20 MG/2 ML Vial IV.PUSH SCH (20:19)
[2018-02-09] MEDS: QUEtiapine 25 MG Tablet NG/OG SCH (20:20)
[2018-02-09] MEDS: Carboxymethylcellulose 0.5% Opth Drops 15 ML Bottle EACH EYE SCH (22:23)
[2018-02-10] MEDS: Insulin NovoLOG Aspart Correctional Sugar Inj SQ SCH ×7 (00:26→23:14)
[2018-02-10] MEDS: Propofol 1000 mg/100 ml Inj 1,000 MG/100 ML BOTTLE IV.CONT PRN ×5 (00:26→23:13)
[2018-02-10] MEDS: fentaNYL 10 mcg/mL Premix Drip 2,500 MCG/250 ML BAG IV.SIG PRN ×2 (00:27→19:23)
[2018-02-10] MEDS: Oral Hygiene Kit OROPHARYNG SCH ×4 (03:56→23:44)
[2018-02-10 04:28] LABS: Baso # (Auto) 0.1 th/mm3 (0.0-0.2); Baso % (Auto) 0.7 % (0.0-2.0); Eos % (Auto) 0.1 % (0.0-4.0); Hematocrit 22.1 % (39.0-51.0); Hemoglobin 7.4 gm/dL (13.0-17.0); Lymph % (Auto) 8.7 % (9.0-44.0); Mean Corpuscular HGB Conc 33.4 % (32.0-36.0); Mean Corpuscular Hemoglobin 33.6 pg (27.0-34.0); Mean Corpuscular Volume 100.4 fL (80.0-100.0); Mean Platelet Volume 8.9 fL (7.0-11.0); Mono # (Auto) 0.2 th/mm3 (0.0-0.9); Mono % (Auto) 1.6 % (0.0-8.0); Neut % (Auto) 88.9 % (16.0-70.0); Platelet Count 336 th/mm3 (150-450); Red Cell Distribution Width 16.8 % (11.6-17.2); White Blood Count 11.3 th/mm3 (4.0-11.0)
[2018-02-10 04:38] LABS: Albumin 1.2 g/dL (3.4-5.0); Anion Gap 11 meq/L (5-15); Aspartate Aminotransferase 13 U/L (15-37); Blood Urea Nitrogen 19 mg/dL (7-18); Calcium 8.2 mg/dL (8.5-10.1); Carbon Dioxide 21.5 meq/L (21.0-32.0); Chloride 114 meq/L (98-107); Glomerular Filtration Rate 69 mL/min (>89); Glucose,Random 170 mg/dL (74-106); Magnesium 1.9 mg/dL (1.5-2.5); Potassium 3.8 meq/L (3.5-5.1); Sodium 146 meq/L (136-145)
[2018-02-10 04:49] LABS: Alanine Aminotransferase 12 U/L (12-78); Alkaline Phosphatase 129 U/L (45-117); Phosphorus 4.8 mg/dL (2.5-4.9); Total Protein 5.2 g/dL (6.4-8.2); Vancomycin,Random 19.8 Comment
[2018-02-10] MEDS: Aspirin 325 MG Tablet PO SCH (08:55)
[2018-02-10] MEDS: Chlorhexidine 0.12% Oral Kit 15 ML UDC OROPHARYNG SCH ×2 (08:55→19:46)
[2018-02-10] MEDS: levETIRAcetam 500 MG Tablet NG/OG SCH ×2 (08:56→20:33)
[2018-02-10] MEDS: QUEtiapine 25 MG Tablet NG/OG SCH ×2 (08:56→20:33)
[2018-02-10] MEDS: Senna/Docusate Sodium 8.6/50 MG Tablet PO SCH ×2 (08:56→20:33)
[2018-02-10] MEDS: Famotidine PF Inj 20 MG/2 ML Vial IV.PUSH SCH ×2 (08:57→20:34)
[2018-02-10] MEDS: Carboxymethylcellulose 0.5% Opth Drops 15 ML Bottle EACH EYE SCH ×2 (08:57→20:34)
--- NOTE | 2018-02-10 11:21 | P.PNID ---
Subjective Remarks: Patient is sedated on the ventilator. On CPAP. Mom at bedside. Status post tracheostomy 02/08/2018. PICC placement 02/09/2018. White blood cell count is lower. Afebrile. Diffuse maculopapular rash is improving. Urine culture as Oliva. Cefepime was discontinued 02/08/2018. Last blood culture on 02/05/2018 as no growth. Chest x-ray shows right lung infiltrate. CT scan of the head showed no acute abnormality. This is a 32-year-old white male who presented to the emergency department with 2-day history of nausea, vomiting, and diarrhea. The patient ended up intubated after he went into ventricular fibrillation cardiac arrest and was resuscitated. He also was noted to have seizure activity. Past Medical History: PAST MEDICAL HISTORY: Alcohol abuse, gastroesophageal reflux disease, hernia, depression, pancreatitis, seizure disorder, left inguinal hernia repair. Allergies/Adverse Reactions: Allergies Sulfa (Sulfonamide Antibiotics) Allergy (Severe, Verified 10/11/17 07:56) hives Objective Vital Signs 02/09/18 11:39 02/09/18 12:00 02/09/18 13:00 Temperature 100.1 F H Pulse Rate 106 H 100 H Respiratory Rate 22 18 18 Blood Pressure 159/67 H 140/62 Pulse Oximetry 99 99 96 02/09/18 14:00 02/09/18 14:46 02/09/18 15:00 Temperature Pulse Rate 100 H 102 H 101 H Respiratory Rate 18 21 16 Blood Pressure 144/62 H 150/67 H 148/65 H Pulse Oximetry 97 99 96 02/09/18 15:15 02/09/18 15:30 02/09/18 15:45 Temperature Pulse Rate 100 H 100 H 96 H Respiratory Rate 18 18 18 Blood Pressure 142/64 H 141/62 H 140/63 Pulse Oximetry 96 96 96 02/09/18 15:58 02/09/18 16:00 02/09/18 16:15 Temperature Pulse Rate 96 H 95 H 94 H Respiratory Rate 19 19 18 Blood Pressure 156/70 H 144/65 H Pulse Oximetry 97 97 95 02/09/18 16:30 02/09/18 16:45 02/09/18 17:00 Temperature Pulse Rate 93 H 91 H 87 Respiratory Rate 18 18 18 Blood Pressure 144/64 H 137/64 140/63 Pulse Oximetry 95 95 96 02/09/18 17:15 02/09/18 18:00 02/09/18 18:01 Temperature Pulse Rate 85 96 H 97 H Respiratory Rate 42 H Blood Pressure 147/67 H Pulse Oximetry 100 02/09/18 18:06 02/09/18 18:12 02/09/18 19:00 Temperature Pulse Rate 103 H 86 Respiratory Rate 20 16 Blood Pressure 139/76 Pulse Oximetry 99 94 L 02/09/18 19:54 02/09/18 20:00 02/09/18 20:15 Temperature 98.4 F Pulse Rate 79 80 79 Respiratory Rate 18 18 18 Blood Pressure 104/59 L 98/53 L 99/53 L Pulse Oximetry 95 95 95 02/09/18 20:30 02/09/18 20:45 02/09/18 21:00 Temperature Pulse Rate 78 79 76 Respiratory Rate 18 18 18 Blood Pressure 97/54 L 98/56 L 102/59 L Pulse Oximetry 95 94 L 92 L 02/09/18 21:15 02/09/18 21:30 02/09/18 21:45 Temperature Pulse Rate 76 77 76 Respiratory Rate 17 17 18 Blood Pressure 99/57 L 103/58 L 101/58 L Pulse Oximetry 92 L 93 L 92 L 02/09/18 22:00 02/09/18 22:15 02/09/18 22:30 Temperature Pulse Rate 76 75 81 Respiratory Rate 16 16 19 Blood Pressure 104/59 L 106/59 L 149/77 H Pulse Oximetry 93 L 93 L 94 L 02/09/18 22:45 02/09/18 23:00 02/09/18 23:15 Temperature Pulse Rate 79 73 71 Respiratory Rate 12 18 18 Blood Pressure 131/61 104/53 L 100/53 L Pulse Oximetry 94 L 92 L 94 L 02/09/18 23:30 02/09/18 23:33 02/09/18 23:45 Temperature Pulse Rate 71 66 Respiratory Rate 18 18 18 Blood Pressure 95/51 L 101/56 L Pulse Oximetry 94 L 94 L 96 02/10/18 00:00 02/10/18 00:15 02/10/18 00:30 Temperature 97.6 F Pulse Rate 67 67 66 Respiratory Rate 18 18 18 Blood Pressure 99/55 L 95/51 L 100/56 L Pulse Oximetry 95 95 95 02/10/18 00:45 02/10/18 01:00 02/10/18 01:15 Temperature Pulse Rate 62 63 63 Respiratory Rate 18 18 18 Blood Pressure 102/59 L 93/50 L 93/51 L Pulse Oximetry 96 94 L 95 02/10/18 01:30 02/10/18 01:45 02/10/18 02:00 Temperature Pulse Rate 63 58 L 63 Respiratory Rate 18 18 18 Blood Pressure 93/55 L 113/57 L 97/52 L Pulse Oximetry 95 97 95 02/10/18 02:15 02/10/18 02:30 02/10/18 02:45 Temperature Pulse Rate 63 62 64 Respiratory Rate 18 18 18 Blood Pressure 98/51 L 101/53 L 97/55 L Pulse Oximetry 95 95 95 02/10/18 03:00 02/10/18 03:15 02/10/18 03:30 Temperature Pulse Rate 63 63 65 Respiratory Rate 18 18 18 Blood Pressure 97/54 L 98/51 L 98/50 L Pulse Oximetry 96 95 95 02/10/18 03:45 02/10/18 04:00 02/10/18 04:15 Temperature 97.9 F Pulse Rate 64 63 63 Respiratory Rate 18 18 18 Blood Pressure 98/52 L 97/53 L 99/51 L Pulse Oximetry 95 95 94 L 02/10/18 04:17 02/10/18 04:20 02/10/18 04:30 Temperature Pulse Rate 69 70 Respiratory Rate 18 19 18 Blood Pressure 96/54 L Pulse Oximetry 96 91 L 02/10/18 04:45 02/10/18 05:00 02/10/18 05:16 Temperature Pulse Rate 72 74 96 H Respiratory Rate 18 13 26 H Blood Pressure 102/55 L 108/55 L 113/70 Pulse Oximetry 93 L 92 L 94 L 02/10/18 05:36 02/10/18 05:45 02/10/18 06:00 Temperature Pulse Rate 105 H 101 H 93 H Respiratory Rate 28 H 18 15 Blood Pressure 167/72 H 126/60 Pulse Oximetry 99 98 94 L 02/10/18 06:01 02/10/18 10:21 Temperature Pulse Rate 92 H Respiratory Rate 17 16 Blood Pressure 151/68 H Pulse Oximetry 94 L 94 L Intake & Output 02/09/18 02/10/18 02/10/18 18:59 06:59 18:59 Intake Total 2515 / 2515 2250 / 2250 Output Total 350 / 350 1150 / 1150 Balance 2165 / 2165 1100 / 1100 Weight 92 kg Intake: IV 2315 / 2315 1850 / 1850 D5W Inj 1,000 ML @ 75 mls/hr IV 1000 / 1000 .CONT .[id number] [facility] Rx#:[id number] Versed Inj 50 mg In 50 ml @ 2 50 / 50 50 / 50 MG/HR 2 mls/hr IV.CONT TITRATE PRN Rx#:[id number] Diprivan 1000 mg/100 ml Inj 1, 300 / 300 250 / 250 000 mg In 100 ml @ 5 MCG/KG/MIN 2.58 mls/hr IV.CONT TITRATE PRN Rx#:[id number] Azactam Inj 1,000 MG In NS Inj 200 / 200 100 / 100 100 ML @ 200 mls/hr IV.SIG Q8H [facility] Rx#:[id number] D5W/1/2 NS Inj 1,000 ML @ 42 600 / 600 mls/hr IV.SIG .[id number] [facility] Rx#: [id number] Magnesium Sulfate 1 gm/D5W 100 200 / 200 ml Premix 100 ML @ 100 mls/hr IV.SIG Q1H [facility] Rx#:[id number] Vancomycin Inj 1,500 MG In NS 515 / 515 Inj 500 ML @ 250 mls/hr IV.SIG ONCE ONE Rx#:[id number] fentaNYL 10 mcg/mL Premix Drip 250 / 250 250 / 250 2,500 mcg In 250 ml @ 50 MCG/HR 5 mls/hr IV.SIG TITRATE PRN Rx #:[id number] Flagyl 500 MG Inj 100 ML @ 100 200 / 200 200 / 200 mls/hr IV.SIG Q6H [facility] Rx#: [id number] Water Bolus Amount 200 / 200 400 / 400 Output: Urine 1050 / 1050 Stool 100 / 100 Urine Amount (Catheter) 350 / 350 Indwelling Urethral Catheter 350 / 350 Other: Date of Last Bowel Movement 02/09/18 02/10/18 02/05/18 22:13 Blood - Peripheral Aerobic Blood Culture - Final No growth in 5 days 02/05/18 22:13 Blood - Peripheral Anaerobic Blood Culture - Final No growth in 5 days 02/05/18 22:18 Blood - Peripheral Aerobic Blood Culture - Final No growth in 5 days 02/05/18 22:18 Blood - Peripheral Anaerobic Blood Culture - Final No growth in 5 days 02/08/18 17:00 Catheterized Urine Urine Culture - Final Oliva albicans 02/06/18 08:25 Sputum - Endotracheal Gram Stain - Final 02/06/18 08:25 Sputum - Endotracheal Sputum Culture - Final Heavy growth normal respiratory pepito 02/06/18 03:00 Catheterized Urine Urine Culture - Final No growth in 48 hours Lab - Hematology Results 02/09/18 02/10/18 03:45 03:48 WBC 13.4 H 11.3 H RBC 2.26 L 2.20 L Hgb 7.5 L 7.4 L Hct 23.0 L 22.1 L MCV 101.9 H 100.4 H MCH 33.3 33.6 MCHC 32.7 33.4 RDW 17.2 16.8 Plt Count 276 336 MPV 9.1 8.9 Neut % (Auto) 86.7 H 88.9 H Lymph % (Auto) 6.7 L 8.7 L Cavalier % (Auto) 4.5 1.6 Eos % (Auto) 1.8 0.1 Baso % (Auto) 0.3 0.7 Neut # (Auto) 11.6 H 10.0 H Lymph # (Auto) 0.9 L 1.0 [place]alier # (Auto) 0.6 0.2 Eos # (Auto) 0.2 0.0 Baso # (Auto) 0.0 0.1 WBC Differential . . Differential Comment Auto diff final Auto diff final Lab - Chemistry Results 02/08/18 02/08/18 02/08/18 12:16 17:52 19:30 Sodium Potassium Chloride Carbon Dioxide Anion Gap BUN Creatinine Estimated GFR POC Glucose 86 96 87 Random Glucose Calcium Phosphorus Magnesium Total Bilirubin AST ALT Alkaline Phosphatase Total Protein Albumin 02/08/18 02/09/18 02/09/18 23:45 03:45 04:05 Sodium 149 H Potassium 3.5 Chloride 115 H Carbon Dioxide 22.1 Anion Gap 12 BUN 14 Creatinine 1.27 Estimated GFR 66 L POC Glucose 76 85 Random Glucose 93 Calcium 8.2 L Phosphorus 3.0 Magnesium 1.7 Total Bilirubin AST ALT Alkaline Phosphatase Total Protein Albumin 1.2 L 02/09/18 02/09/18 02/09/18 07:32 11:23 15:37 Sodium Potassium Chloride Carbon Dioxide Anion Gap BUN Creatinine Estimated GFR POC Glucose 88 85 94 Random Glucose Calcium Phosphorus Magnesium Total Bilirubin AST ALT Alkaline Phosphatase Total Protein Albumin 02/09/18 02/10/18 02/10/18 19:54 00:24 03:48 Sodium 146 H Potassium 3.8 Chloride 114 H Carbon Dioxide 21.5 Anion Gap 11 BUN 19 H Creatinine 1.22 Estimated GFR 69 L POC Glucose 138 H 168 H Random Glucose 170 H Calcium 8.2 L Phosphorus 4.8 D Magnesium 1.9 Total Bilirubin 0.3 AST 13 L ALT 12 Alkaline Phosphatase 129 H Total Protein 5.2 L Albumin 1.2 L 02/10/18 02/10/18 03:55 09:21 Sodium Potassium Chloride Carbon Dioxide Anion Gap BUN Creatinine Estimated GFR POC Glucose 175 H 170 H Random Glucose Calcium Phosphorus Magnesium Total Bilirubin AST ALT Alkaline Phosphatase Total Protein Albumin Imaging: ITS Impressions Abdomen/Pelvis CT 01/28/18 00:00 CONCLUSION: 1. There is a new finding of presumed pneumobilia in the left hepatic lobe. Is there a history of recent instrumentation? Portal venous gas is not entirely excluded. 2. Mild induration of the peripancreatic fat proximally suggest mild acute pancreatitis. 3. Small fat-containing umbilical hernia. 4. Pulmonary consolidation is noted as above. 5. Mild gaseous distention of the stomach. Chest CT 01/28/18 00:00 CONCLUSION: 1. Bilateral consolidation most pronounced in the left lower lobe and left upper lobe posteriorly. Gallbladder Ultrasound 01/30/18 00:00 CONCLUSION: 1. Unremarkable study. Abdomen/Bladder Ultrasound 01/30/18 15:17 CONCLUSION: 1. Negative renal sonogram. Head CT 02/06/18 03:50 CONCLUSION: 1. No acute intracranial abnormalities. . Abdomen X-Ray 02/08/18 00:00 CONCLUSION: NG tube placement as above. Chest X-Ray 02/08/18 14:56 CONCLUSION: 1. Consolidating infiltrate has developed in the right midlung and left base 2. Interval placement of a tracheostomy tube and removal of endotracheal tube. 3. Otherwise stable chest. Head MRI 02/09/18 00:00 CONCLUSION: 1. Normal MRI of the brain. 2. Sinusitis and mastoiditis. Physical Exam: PHYSICAL EXAMINATION: GENERAL: Sedated. HEENT: Pupils are equal and reactive. No icterus. Oropharynx intubated. NECK: No adenopathy or swelling. LUNGS: Rhonchi at the right base. HEART: Regular S1 and S2. No murmurs heard. ABDOMEN: Bowel sounds diminished, high-pitched. Soft. No tenderness appreciated on palpation. EXTREMITIES: No clubbing, cyanosis; trace edema of the hands. SKIN: Diffuse maculopapular rash is fading. More apparent at the chest and upper extremities. NEUROLOGIC: Unable to fully assess. Opens eyes. PSYCHIATRIC: Unable to fully assess. Assessment and Plan - Plan IMPRESSION: 1. Possible sepsis. However cultures have been negative. Previous staph coagulase positive blood culture felt to be contamination. Subsequent cultures negative. No clear source. Temperature improved. 2. Skin rash. Likely drug related. Probably cefepime was associated. 3. Pneumonia. Suspect aspiration. 4. Status post cardiac arrest. 5. Acute respiratory failure. Patient now post tracheostomy. 6. Acute renal failure. Improved. 7. Seizure disorder. 8. Diarrhea. Questionable antibiotic associated. C. difficile toxin negative. Per mom patient has not had a history of C. difficile. 9. Oliva UTI. 10. Leukocytosis improving. RECOMMENDATIONS: 1. Continue vancomycin intravenous. 2. Continue Azactam. 3. Stop Flagyl. 4. Stop p.o. vancomycin. 5. Monitor temperature. 6. Monitor clinical status. 7. Continue to monitor white blood cell count.
--- NOTE | 2018-02-10 12:12 | P.PNCC ---
Subjective Subjective Remarks/Hospital Course: This is a 32-year-old male. Admission 01/28/2018. Past medical history includes seizure disorder/noncompliant with levetiracetam, previous EtOH sober for 4 weeks, anorexia, gastroesophageal reflux disease and chronic pancreatitis. Patient presented to [facility] 01/28/2018 with a two-day history of nausea vomiting and diarrhea. Patient's mother/discussed at bedside stated she had just had a "stomach flu" which she has currently recovered. Mom states that the patient has become fairly dehydrated is been having some cramping of his hands. She is worried that he is getting dehydrated and his potassium might begin low. He was unable to tolerate a banana so she gave him some potassium pills p.o. which she also did not tolerate and threw up. Sober 4 weeks according to mother. Patient was noted to have a low potassium at 2.0. Creatinine of 4.0. This is in line with his previous hospitalizations for acute dehydration. Lipase was slightly elevated. Patient does have a history of seizure disorder which is not compliant with levetiracetam. ED physician was called into room because the RN believed he had a seizure. Patient was unresponsive. Mother states this was not like any seizure that she had seen. Pulses not palpable therefore CPR was initiated. Initial rhythm was V. fib. Patient received amiodarone, lidocaine, epinephrine, bicarbonate, magnesium during the 35 minute code with return of spontaneous circulation after 35 minutes. Pupils are about 9 mils bilaterally and 6. When I saw the patient patient was actively thrashing moving all 4 extremities spontaneously but not to command. Pupils are round 8 mm bilaterally and nonreactive. Brain CT revealed no acute findings. CT thorax revealed a left upper and lower lobe. CT abdomen pelvis pending at time of dictation. Likely, troponin pending. EKG revealed incomplete right bundle block with ST depression in the inferior and lateral leads. Cardiology consulted. They will evaluate after stat echocardiogram and troponins been completed. Potassium will be replaced pending [facility] 01/29: persistently in shock. following commands this AM. trop uptrended overnight and now > 40. on levo @ 10, vasopressin. bedside echo with persistence of his global severe LV systolic dysfunction. IVC dilated without respiratory variation. initially attempted therapeutic hypothermia, but became arrhythmogenic and neurologic exam improved and now following commands, so hypothermia aborted. persistently hypokalemic and hypophosphatemic this AM. in addition, remains with severe metabolic alkalosis. 01/30: Troponin trending down, continues to have severe hypokalemia and metabolic alkalosis. Creatinine continues to trend up, only produced 200 cc of urine over the past 24 hours. 01/31: Patient seen by nephrology yesterday and given bumex, urine output dramatically increased, potassium improved with aggressive repletion, pressors now off and dobutamine at 5. 02/01: No issues overnight. Patient tolerated dobutamine at 2 yesterday, discontinued this morning. Switching propofol to precedex and would like to start SBTs today. Overall improved. 02/02: Tolerated switch to precedex yesterday and was on bipap 05/06 for several hours yesterday afternoon, placed back on AC overnight to avoid respiratory fatigue. 02/03: Patient had no overnight events, tolerated SBT x 5 hours yesterday. Significantly agitated this morning during sedation vacation. 02/04: Patient still struggles with agitation when we lighten sedation. 02/05: Temp 103F this morning, no obvious source of infection. Needs to have PICC line placed today. 02/06: reintubated yesterday. overnight persistently febrile. this morning appears in distress- tachypneic on the ventilator, acidotic. potassium up to 5.8 despite medical management. bedside echo with improving LVEF and completely collapsed IVC. no pericardial effusion. lung ultrasound without effusions. 02/07: Remains sedated, orally intubated on mechanical ventilation. On propofol fentanyl and Versed drips. Transfuse 1 unit PRBCs earlier today for drop in hemoglobin. 02/08: Remains sedated, orally intubated on mechanical ventilation. On propofol fentanyl and Versed drips. Awaiting tracheostomy which is scheduled for later today. 02/09: Overnight, new onset of maculopapular rash noted. Noted discontinuation of cefepime 02/08. Received 1 dose diphenhydramine overnight. SUBJECTIVE 02/10: Afebrile. Discussed with mom at bedside. Follows commands weakly bilateral upper and lower extremities. Diffuse macular papular rash improved lower extremities. Appears stable and upper thorax. On Famotidine, methylprednisolone and diphenhydramine Objective Vital Signs / I&O: Vital Signs 02/09/18 13:00 02/09/18 14:00 02/09/18 14:46 Temperature Pulse Rate 100 H 100 H 102 H Respiratory Rate 18 18 21 Blood Pressure 140/62 144/62 H 150/67 H Pulse Oximetry 96 97 99 02/09/18 15:00 02/09/18 15:15 02/09/18 15:30 Temperature Pulse Rate 101 H 100 H 100 H Respiratory Rate 16 18 18 Blood Pressure 148/65 H 142/64 H 141/62 H Pulse Oximetry 96 96 96 02/09/18 15:45 02/09/18 15:58 02/09/18 16:00 Temperature Pulse Rate 96 H 96 H 95 H Respiratory Rate 18 19 19 Blood Pressure 140/63 156/70 H Pulse Oximetry 96 97 97 02/09/18 16:15 02/09/18 16:30 02/09/18 16:45 Temperature Pulse Rate 94 H 93 H 91 H Respiratory Rate 18 18 18 Blood Pressure 144/65 H 144/64 H 137/64 Pulse Oximetry 95 95 95 02/09/18 17:00 02/09/18 17:15 02/09/18 18:00 Temperature Pulse Rate 87 85 96 H Respiratory Rate 18 42 H Blood Pressure 140/63 147/67 H Pulse Oximetry 96 100 02/09/18 18:01 02/09/18 18:06 02/09/18 18:12 Temperature Pulse Rate 97 H 103 H Respiratory Rate 20 Blood Pressure 139/76 Pulse Oximetry 99 02/09/18 19:00 02/09/18 19:54 02/09/18 20:00 Temperature 98.4 F Pulse Rate 86 79 80 Respiratory Rate 16 18 18 Blood Pressure 104/59 L 98/53 L Pulse Oximetry 94 L 95 95 02/09/18 20:15 02/09/18 20:30 02/09/18 20:45 Temperature Pulse Rate 79 78 79 Respiratory Rate 18 18 18 Blood Pressure 99/53 L 97/54 L 98/56 L Pulse Oximetry 95 95 94 L 02/09/18 21:00 02/09/18 21:15 02/09/18 21:30 Temperature Pulse Rate 76 76 77 Respiratory Rate 18 17 17 Blood Pressure 102/59 L 99/57 L 103/58 L Pulse Oximetry 92 L 92 L 93 L 02/09/18 21:45 02/09/18 22:00 09/13/18 22:15 Temperature Pulse Rate 76 76 75 Respiratory Rate 18 16 16 Blood Pressure 101/58 L 104/59 L 106/59 L Pulse Oximetry 92 L 93 L 93 L 02/09/18 22:30 02/09/18 22:45 02/09/18 23:00 Temperature Pulse Rate 81 79 73 Respiratory Rate 19 12 18 Blood Pressure 149/77 H 131/61 104/53 L Pulse Oximetry 94 L 94 L 92 L 02/09/18 23:15 02/09/18 23:30 02/09/18 23:33 Temperature Pulse Rate 71 71 Respiratory Rate 18 18 18 Blood Pressure 100/53 L 95/51 L Pulse Oximetry 94 L 94 L 94 L 02/09/18 23:45 02/10/18 00:00 02/10/18 00:15 Temperature 97.6 F Pulse Rate 66 67 67 Respiratory Rate 18 18 18 Blood Pressure 101/56 L 99/55 L 95/51 L Pulse Oximetry 96 95 95 02/10/18 00:30 02/10/18 00:45 02/10/18 01:00 Temperature Pulse Rate 66 62 63 Respiratory Rate 18 18 18 Blood Pressure 100/56 L 102/59 L 93/50 L Pulse Oximetry 95 96 94 L 02/10/18 01:15 02/10/18 01:30 02/10/18 01:45 Temperature Pulse Rate 63 63 58 L Respiratory Rate 18 18 18 Blood Pressure 93/51 L 93/55 L 113/57 L Pulse Oximetry 95 95 97 02/10/18 02:00 02/10/18 02:15 02/10/18 02:30 Temperature Pulse Rate 63 63 62 Respiratory Rate 18 18 18 Blood Pressure 97/52 L 98/51 L 101/53 L Pulse Oximetry 95 95 95 02/10/18 02:45 02/10/18 03:00 02/10/18 03:15 Temperature Pulse Rate 64 63 63 Respiratory Rate 18 18 18 Blood Pressure 97/55 L 97/54 L 98/51 L Pulse Oximetry 95 96 95 02/10/18 03:30 02/10/18 03:45 02/10/18 04:00 Temperature 97.9 F Pulse Rate 65 64 63 Respiratory Rate 18 18 18 Blood Pressure 98/50 L 98/52 L 97/53 L Pulse Oximetry 95 95 95 02/10/18 04:15 02/10/18 04:17 02/10/18 04:20 Temperature Pulse Rate 63 69 Respiratory Rate 18 18 19 Blood Pressure 99/51 L Pulse Oximetry 94 L 96 02/10/18 04:30 02/10/18 04:45 02/10/18 05:00 Temperature Pulse Rate 70 72 74 Respiratory Rate 18 18 13 Blood Pressure 96/54 L 102/55 L 108/55 L Pulse Oximetry 91 L 93 L 92 L 02/10/18 05:16 02/10/18 05:36 02/10/18 05:45 Temperature Pulse Rate 96 H 105 H 101 H Respiratory Rate 26 H 28 H 18 Blood Pressure 113/70 167/72 H 126/60 Pulse Oximetry 94 L 99 98 02/10/18 06:00 02/10/18 06:01 02/10/18 10:21 Temperature Pulse Rate 93 H 92 H Respiratory Rate 15 17 16 Blood Pressure 151/68 H Pulse Oximetry 94 L 94 L 94 L Intake & Output 02/09/18 02/10/18 02/10/18 18:59 06:59 18:59 Intake Total 2515 / 2515 2250 / 2250 Output Total 350 / 350 1150 / 1150 Balance 2165 / 2165 1100 / 1100 Weight 92 kg Intake: IV 2315 / 2315 1850 / 1850 D5W Inj 1,000 ML @ 75 mls/hr IV 1000 / 1000 .CONT .[id number] GERMAINE Rx#:[id number] Versed Inj 50 mg In 50 ml @ 2 50 / 50 50 / 50 MG/HR 2 mls/hr IV.CONT TITRATE PRN Rx#:[id number] Diprivan 1000 mg/100 ml Inj 1, 300 / 300 250 / 250 000 mg In 100 ml @ 5 MCG/KG/MIN 2.58 mls/hr IV.CONT TITRATE PRN Rx#:[id number] Azactam Inj 1,000 MG In NS Inj 200 / 200 100 / 100 100 ML @ 200 mls/hr IV.SIG Q8H GERMAINE Rx#:[id number] D5W/1/2 NS Inj 1,000 ML @ 42 600 / 600 mls/hr IV.SIG .[id number] GERMAINE Rx#: [id number] Magnesium Sulfate 1 gm/D5W 100 200 / 200 ml Premix 100 ML @ 100 mls/hr IV.SIG Q1H GERMAINE Rx#:[id number] Vancomycin Inj 1,500 MG In NS 515 / 515 Inj 500 ML @ 250 mls/hr IV.SIG ONCE ONE Rx#:[id number] fentaNYL 10 mcg/mL Premix Drip 250 / 250 250 / 250 2,500 mcg In 250 ml @ 50 MCG/HR 5 mls/hr IV.SIG TITRATE PRN Rx #:[id number] Flagyl 500 MG Inj 100 ML @ 100 200 / 200 200 / 200 mls/hr IV.SIG Q6H GERMAINE Rx#: [id number] Water Bolus Amount 200 / 200 400 / 400 Output: Urine 1050 / 1050 Stool 100 / 100 Urine Amount (Catheter) 350 / 350 Indwelling Urethral Catheter 350 / 350 Other: Date of Last Bowel Movement 02/09/18 02/10/18 Result Diagrams: 02/10/18 03:48 02/10/18 03:48 Other Results: Microbiology 02/05/18 22:13 Blood - Peripheral Aerobic Blood Culture - Final No growth in 5 days 02/05/18 22:13 Blood - Peripheral Anaerobic Blood Culture - Final No growth in 5 days 02/05/18 22:18 Blood - Peripheral Aerobic Blood Culture - Final No growth in 5 days 02/05/18 22:18 Blood - Peripheral Anaerobic Blood Culture - Final No growth in 5 days 02/08/18 17:00 Catheterized Urine Urine Culture - Final Oliva albicans 02/06/18 08:25 Sputum - Endotracheal Gram Stain - Final 02/06/18 08:25 Sputum - Endotracheal Sputum Culture - Final Heavy growth normal respiratory pepito 02/06/18 03:00 Catheterized Urine Urine Culture - Final No growth in 48 hours 02/05/18 10:30 Stool Stool Occult Blood (JASON) - Final Hemoccult negative 01/31/18 15:00 Blood - Peripheral Aerobic Blood Culture - Final Staphylococcus epidermidis 01/31/18 15:00 Blood - Peripheral Anaerobic Blood Culture - Final No growth in 5 days 01/31/18 14:45 Blood - Peripheral Aerobic Blood Culture - Final No growth in 5 days 01/31/18 14:45 Blood - Peripheral Anaerobic Blood Culture - Final No growth in 5 days 01/28/18 17:55 Blood - Peripheral Aerobic Blood Culture - Final Staphylococcus hominis-hominis 01/28/18 17:55 Blood - Peripheral Anaerobic Blood Culture - Final No growth in 5 days 01/28/18 17:50 Blood - Peripheral Aerobic Blood Culture - Final No growth in 5 days 01/28/18 17:50 Blood - Peripheral Anaerobic Blood Culture - Final No growth in 5 days 01/30/18 16:01 Catheterized Urine Urine Culture - Final No growth in 48 hours 01/28/18 13:55 Sputum - Endotracheal Gram Stain - Final 01/28/18 13:55 Sputum - Endotracheal Sputum Culture - Final Heavy growth normal respiratory pepito 01/28/18 13:49 Urine - Catheterized Urine Legionella Antigen - Final Presumptive negative for Legionella pneumophila serogroup 1 antigen in urine, suggesting no recent or recurrent infection. Infection due to Legionella cannot be ruled out since other serogroups and species may cause disease, antigen may not be present in urine in early infection, and the level of antigen present in the urine may be below the detection limit of the test. 01/28/18 13:49 Urine - Catheterized Urine Streptococcus pneumoniae Antigen ( M - Final Presumptive negative for streptococcus pneumoniae antigen, suggesting no current or recent infection. Infection due to Streptococcus pneumoniae cannot be ruled out since the antigen present in the sample may be below the detection limit of the test. 01/28/18 13:51 Nasal Aspirate Influenza Types A,B Antigen - Final Negative for FLU A and B antigen Infection due to influenza A or B cannot be ruled out since the antigen present in the sample may be below the detection limit of the test. Imaging: Abdomen/Pelvis CT 01/28/18 00:00 CONCLUSION: 1. There is a new finding of presumed pneumobilia in the left hepatic lobe. Is there a history of recent instrumentation? Portal venous gas is not entirely excluded. 2. Mild induration of the peripancreatic fat proximally suggest mild acute pancreatitis. 3. Small fat-containing umbilical hernia. 4. Pulmonary consolidation is noted as above. 5. Mild gaseous distention of the stomach. Chest CT 01/28/18 00:00 CONCLUSION: 1. Bilateral consolidation most pronounced in the left lower lobe and left upper lobe posteriorly. Chest X-Ray 01/28/18 10:15 CONCLUSION: Endotracheal tube as above. Left lung consolidation. Head CT 01/28/18 10:19 CONCLUSION: 1. Negative CT Head non contrast. . Chest X-Ray 01/29/18 09:13 CONCLUSION: Right subclavian line as above. Gallbladder Ultrasound 01/30/18 00:00 CONCLUSION: 1. Unremarkable study. Chest X-Ray 01/30/18 05:00 CONCLUSION: Stable diffuse left lung airspace consolidation with bibasilar opacities likely representing atelectasis and possible small effusions. Abdomen/Bladder Ultrasound 01/30/18 15:17 CONCLUSION: 1. Negative renal sonogram. Chest X-Ray 02/04/18 05:00 CONCLUSION: Persistent consolidation in the lower lungs, slightly improved in the left lower lung. Chest X-Ray 02/05/18 00:00 CONCLUSION: ET tube is in excellent position. Lungs still mostly clear Chest X-Ray 02/06/18 01:30 CONCLUSION: Subsegmental airspace disease improved from February 05. Endotracheal tube and nasogastric tube in good position. Head CT 02/06/18 03:50 CONCLUSION: 1. No acute intracranial abnormalities. . Abdomen X-Ray 02/08/18 00:00 CONCLUSION: NG tube placement as above. Chest X-Ray 02/08/18 14:56 CONCLUSION: 1. Consolidating infiltrate has developed in the right midlung and left base 2. Interval placement of a tracheostomy tube and removal of endotracheal tube. 3. Otherwise stable chest. Head MRI 02/09/18 00:00 CONCLUSION: 1. Normal MRI of the brain. 2. Sinusitis and mastoiditis. Objective Remarks: GENERAL: 32-year-old male currently on ventilator via tracheostomy HEENT: NCAT, pupils are equal round react about 3 meals bilaterally. Extraocular muscles are intact. Mucous membranes are moist and pink. NECK: Trachea midline. Tracheostomy site is clean dry and intact CHEST: Few coarse crackles appreciated no wheezing. CARDIOVASCULAR: RRR. S1, S2 no S4. Without murmur ABDOMEN: Soft, non-tender in all quadrants, fresh PEG tube site is clean dry and intact with no bleeding or erythema MUSCULOSKELETAL: Warm and well perfused, maculopapular rash on thorax, bilateral upper and lower extremities. 1+ bilateral upper and lower extremity peripheral edema NEUROLOGICAL: Follows commands by squeezing bilateral upper extremities including bilateral extremities weakly. Try exercise. Positive gag and cough.. Assessment and Plan - Assessment and Plan Plan: Neuro/Psych: Seizure disorder NOS History of EtOH sober 4 weeks History of anorexia/bulimia Acute metabolic encephalopathy Sedated on propofol at 20 mcg/kg/min fentanyl and 150 mg an hour. Midazolam drip at 2 mg an hour Goal of RASS -2 Continue levetiracetam 500 BID (home dose) Home Quetiapine currently at 50 mg twice daily decreased. Start oxycodone liquid 5 mg every 6 hours Patient has a previous history of heavy EtOH abuse and bulimia as per mother-- continue thiamine CV: In-hospital cardiac arrest V. fib arrest Cardiogenic Shock-- resolved Severe LV systolic dysfunction- resolving. Septic shock Plan is still for cardiac perfusion study when creatinine improves Echo 01/28: severe LV systolic dysfunction, EF 20-25%. mildly depressed RV function. no valvular lesions. heparin drip on hold due to bleeding continue daily ASA 325 mg daily. Continued PO thiamine supplementation for ? beriberi Resp: Acute hypoxic respiratory failure- recurrent. Left upper/lower lobe pulmonary infiltrates-- improving Extubated 02/05, reintubated 02/05 for respiratory failure Chest post tracheostomy by Dr. Serna 02/08 Albuterol/ipratropium aerosols every 6 hours with albuterol aerosols every 2 hours as needed for dyspnea vent bundle hob elevated wean fio2 for goal spo2 > 90% PSV 03/06 at 45% GI: Elevated lipase/mild pancreatitis-- resolved Left hepatic pneumobilia history of chronic pancreatitis C. Difficile Colitis restart tube feeds today see orders after PEG tube placement. Jevity 1.560 cc an hour per dietary recommendations IV famotidine for GI prophylaxis Docusate serum/senna 1 tablet twice daily for bowel regimen Renal/ : Acute kidney injury-- improving, slowly Nance replaced 02/04. continue for accurate i/o's. Creatinine peaked around 6, continues to improve, but slowly currently 1.27. Defer diuresis nephrology. Received 1 dose of Diuril today. Nephrology following Endo: Sliding scale insulin with Accu-Cheks to maintain euglycemia aspart insulin every 6 hours, IV dextrose D5 water at 75 cc an hour Heme: Leukocytosis--stable Macrocytic anemia- stable Monitor CBC daily. Follow trends. No indication for transfusion of blood products at this time ID: Septic shock C. Difficile Colitis Blood cultures on 01/28 and 01/31 showed coagulase negative staph hominis, likely contamination Sputum, UA and influenza all NGTD s/p zosyn for 7 days to treat pneumonia, d/c on 02/05 repeat blood cultures 02/05 no growth sent sputum culture urine culture 02/05 no growth started on PO Vanc 02/05 continue vancomycin p.o. and IV aztreonam. ID recommended continue IV vancomycin and metronidazole 02/10 Infectious disease following actively FEN: Hypernatremia Replace electrolytes as clinically indicated Currently on D5 water at 75 cc an hour MSK PT evaluate and treat DERM: Diffuse macular papular rash likely secondary to cefepime Scheduled diphenhydramine 25 mg every 6 hours, famotidine 20 twice daily and 1 dose of methylprednisolone succinate 140 mg IV 1 now. Monitor skin Discontinued Access: - 01/29 - 02/05 right SC TLC - 02/04 Nance for urinary retention Prophylaxis -GI-famotidine -DVT SCD/heparin drip on hold due to bleeding. Subcutaneous heparin for DVT prophylaxis placed on hold on 02/08 for planned tracheostomy and PEG and to be resumed following procedures. Level 2 follow-up
[2018-02-10] MEDS: Dextrose 5% in Water Inj 1,000 ML IV.CONT SCH (12:21)
[2018-02-10] MEDS: Midazolam 50 MG/50 ML Inj 50 MG/50 ML BAG IV.CONT PRN (12:26)
--- NOTE | 2018-02-10 12:54 | P.PNGI ---
Subjective Interval history: Patient in the intensive care setting ventilator management randomly opens eyes but does not focus, status post PEG tube placement no obvious nausea vomiting or grimace to abdominal palpation <Linda Romeo M - Last Filed: 02/10/18 12:55> Physical Exam Vital signs: Vital Signs 02/09/18 13:00 02/09/18 14:00 02/09/18 14:46 Temperature Pulse Rate 100 H 100 H 102 H Respiratory Rate 18 18 21 Blood Pressure 140/62 144/62 H 150/67 H Pulse Oximetry 96 97 99 02/09/18 15:00 02/09/18 15:15 02/09/18 15:30 Temperature Pulse Rate 101 H 100 H 100 H Respiratory Rate 16 18 18 Blood Pressure 148/65 H 142/64 H 141/62 H Pulse Oximetry 96 96 96 02/09/18 15:45 02/09/18 15:58 02/09/18 16:00 Temperature Pulse Rate 96 H 96 H 95 H Respiratory Rate 18 19 19 Blood Pressure 140/63 156/70 H Pulse Oximetry 96 97 97 02/09/18 16:15 02/09/18 16:30 02/09/18 16:45 Temperature Pulse Rate 94 H 93 H 91 H Respiratory Rate 18 18 18 Blood Pressure 144/65 H 144/64 H 137/64 Pulse Oximetry 95 95 95 02/09/18 17:00 02/09/18 17:15 02/09/18 18:00 Temperature Pulse Rate 87 85 96 H Respiratory Rate 18 42 H Blood Pressure 140/63 147/67 H Pulse Oximetry 96 100 02/09/18 18:01 02/09/18 18:06 02/09/18 18:12 Temperature Pulse Rate 97 H 103 H Respiratory Rate 20 Blood Pressure 139/76 Pulse Oximetry 99 02/09/18 19:00 02/09/18 19:54 02/09/18 20:00 Temperature 98.4 F Pulse Rate 86 79 80 Respiratory Rate 16 18 18 Blood Pressure 104/59 L 98/53 L Pulse Oximetry 94 L 95 95 02/09/18 20:15 02/09/18 20:30 02/09/18 20:45 Temperature Pulse Rate 79 78 79 Respiratory Rate 18 18 18 Blood Pressure 99/53 L 97/54 L 98/56 L Pulse Oximetry 95 95 94 L 02/09/18 21:00 02/09/18 21:15 02/09/18 21:30 Temperature Pulse Rate 76 76 77 Respiratory Rate 18 17 17 Blood Pressure 102/59 L 99/57 L 103/58 L Pulse Oximetry 92 L 92 L 93 L 02/09/18 21:45 02/09/18 22:00 02/09/18 22:15 Temperature Pulse Rate 76 76 75 Respiratory Rate 18 16 16 Blood Pressure 101/58 L 104/59 L 106/59 L Pulse Oximetry 92 L 93 L 93 L 02/09/18 22:30 02/09/18 22:45 02/09/18 23:00 Temperature Pulse Rate 81 79 73 Respiratory Rate 19 12 18 Blood Pressure 149/77 H 131/61 104/53 L Pulse Oximetry 94 L 94 L 92 L 02/09/18 23:15 02/09/18 23:30 02/09/18 23:33 Temperature Pulse Rate 71 71 Respiratory Rate 18 18 18 Blood Pressure 100/53 L 95/51 L Pulse Oximetry 94 L 94 L 94 L 02/09/18 23:45 02/10/18 00:00 02/10/18 00:15 Temperature 97.6 F Pulse Rate 66 67 67 Respiratory Rate 18 18 18 Blood Pressure 101/56 L 99/55 L 95/51 L Pulse Oximetry 96 95 95 02/10/18 00:30 02/10/18 00:45 02/10/18 01:00 Temperature Pulse Rate 66 62 63 Respiratory Rate 18 18 18 Blood Pressure 100/56 L 102/59 L 93/50 L Pulse Oximetry 95 96 94 L 02/10/18 01:15 02/10/18 01:30 02/10/18 01:45 Temperature Pulse Rate 63 63 58 L Respiratory Rate 18 18 18 Blood Pressure 93/51 L 93/55 L 113/57 L Pulse Oximetry 95 95 97 02/10/18 02:00 02/10/18 02:15 02/10/18 02:30 Temperature Pulse Rate 63 63 62 Respiratory Rate 18 18 18 Blood Pressure 97/52 L 98/51 L 101/53 L Pulse Oximetry 95 95 95 02/10/18 02:45 02/10/18 03:00 02/10/18 03:15 Temperature Pulse Rate 64 63 63 Respiratory Rate 18 18 18 Blood Pressure 97/55 L 97/54 L 98/51 L Pulse Oximetry 95 96 95 02/10/18 03:30 02/10/18 03:45 02/10/18 04:00 Temperature 97.9 F Pulse Rate 65 64 63 Respiratory Rate 18 18 18 Blood Pressure 98/50 L 98/52 L 97/53 L Pulse Oximetry 95 95 95 02/10/18 04:15 02/10/18 04:17 02/10/18 04:20 Temperature Pulse Rate 63 69 Respiratory Rate 18 18 19 Blood Pressure 99/51 L Pulse Oximetry 94 L 96 02/10/18 04:30 02/10/18 04:45 02/10/18 05:00 Temperature Pulse Rate 70 72 74 Respiratory Rate 18 18 13 Blood Pressure 96/54 L 102/55 L 108/55 L Pulse Oximetry 91 L 93 L 92 L 02/10/18 05:16 02/10/18 05:36 02/10/18 05:45 Temperature Pulse Rate 96 H 105 H 101 H Respiratory Rate 26 H 28 H 18 Blood Pressure 113/70 167/72 H 126/60 Pulse Oximetry 94 L 99 98 02/10/18 06:00 02/10/18 06:01 02/10/18 10:21 Temperature Pulse Rate 93 H 92 H Respiratory Rate 15 17 16 Blood Pressure 151/68 H Pulse Oximetry 94 L 94 L 94 L Intake & Output 02/09/18 02/10/18 02/10/18 18:59 06:59 18:59 Intake Total 2515 / 2515 2250 / 2250 1150 / 1150 Output Total 350 / 350 1150 / 1150 Balance 2165 / 2165 1100 / 1100 1150 / 1150 Weight 92 kg Intake: IV 2315 / 2315 1850 / 1850 1150 / 1150 D5W Inj 1,000 ML @ 75 mls/hr IV 1000 / 1000 1000 / 1000 .CONT .[id number] [facility] Rx#:[id number] Versed Inj 50 mg In 50 ml @ 2 50 / 50 50 / 50 50 / 50 MG/HR 2 mls/hr IV.CONT TITRATE PRN Rx#:[id number] Diprivan 1000 mg/100 ml Inj 1, 300 / 300 250 / 250 100 / 100 000 mg In 100 ml @ 5 MCG/KG/MIN 2.58 mls/hr IV.CONT TITRATE PRN Rx#:[id number] Azactam Inj 1,000 MG In NS Inj 200 / 200 100 / 100 100 ML @ 200 mls/hr IV.SIG Q8H [facility] Rx#:[id number] D5W/1/2 NS Inj 1,000 ML @ 42 600 / 600 mls/hr IV.SIG .[id number] [facility] Rx#: [id number] Magnesium Sulfate 1 gm/D5W 100 200 / 200 ml Premix 100 ML @ 100 mls/hr IV.SIG Q1H [facility] Rx#:[id number] Vancomycin Inj 1,500 MG In NS 515 / 515 Inj 500 ML @ 250 mls/hr IV.SIG ONCE ONE Rx#:[id number] fentaNYL 10 mcg/mL Premix Drip 250 / 250 250 / 250 2,500 mcg In 250 ml @ 50 MCG/HR 5 mls/hr IV.SIG TITRATE PRN Rx #:[id number] Flagyl 500 MG Inj 100 ML @ 100 200 / 200 200 / 200 mls/hr IV.SIG Q6H [facility] Rx#: [id number] Water Bolus Amount 200 / 200 400 / 400 Output: Urine 1050 / 1050 Stool 100 / 100 Urine Amount (Catheter) 350 / 350 Indwelling Urethral Catheter 350 / 350 Other: Date of Last Bowel Movement 02/09/18 02/10/18 - Constitutional no acute distress, obese (With generalized extremity edema) - Routine HEENT Exam Head: Present: normocephalic ENT: Present: mucous membranes moist (Trach) - Routine Respiratory Exam Present: accessory muscle use (Mild diminished breath sounds but no obvious shortness of breath), patient mechanically ventilated - Routine Cardiovascular Exam Present: S1, S2 - Routine Abdominal Exam Present: soft, normoactive bowel sounds (Round, soft bowel sounds PEG tube clean dry and intact, clamped) - Urinary Catheter Management Coude Cath placed during this visit: yes, but has since been removed by the nurse Reason for continuing: Decision to DC catheter Insertion date: 01/28/18 Insertion time: 13:15 Removal date: 02/03/18 Removal time: 15:15 Straight Cath placed during this visit: yes, but has since been removed by the nurse Reason for continuing: Acute urinary retention Insertion date: 02/04/18 Insertion time: 07:00 Removal date: 02/04/18 Indwelling Urethral Catheter Cath placed during this visit: yes, but has since been removed by the nurse Reason for continuing: Decision to DC catheter Insertion date: 02/04/18 Insertion time: 07:00 Removal date: 02/09/18 Removal time: 14:10 <OusmaneLinda M - Last Filed: 02/10/18 12:55> Vital signs: Vital Signs 02/09/18 14:46 02/09/18 15:00 02/09/18 15:15 Temperature Pulse Rate 102 H 101 H 100 H Respiratory Rate 21 16 18 Blood Pressure 150/67 H 148/65 H 142/64 H Pulse Oximetry 99 96 96 02/09/18 15:30 02/09/18 15:45 02/09/18 15:58 Temperature Pulse Rate 100 H 96 H 96 H Respiratory Rate 18 18 19 Blood Pressure 141/62 H 140/63 Pulse Oximetry 96 96 97 02/09/18 16:00 02/09/18 16:15 02/09/18 16:30 Temperature Pulse Rate 95 H 94 H 93 H Respiratory Rate 19 18 18 Blood Pressure 156/70 H 144/65 H 144/64 H Pulse Oximetry 97 95 95 02/09/18 16:45 02/09/18 17:00 02/09/18 17:15 Temperature Pulse Rate 91 H 87 85 Respiratory Rate 18 18 42 H Blood Pressure 137/64 140/63 147/67 H Pulse Oximetry 95 96 100 02/09/18 18:00 02/09/18 18:01 02/09/18 18:06 Temperature Pulse Rate 96 H 97 H 103 H Respiratory Rate 20 Blood Pressure 139/76 Pulse Oximetry 02/09/18 18:12 02/09/18 19:00 02/09/18 19:54 Temperature Pulse Rate 86 79 Respiratory Rate 16 18 Blood Pressure 104/59 L Pulse Oximetry 99 94 L 95 02/09/18 20:00 02/09/18 20:15 02/09/18 20:30 Temperature 98.4 F Pulse Rate 80 79 78 Respiratory Rate 18 18 18 Blood Pressure 98/53 L 99/53 L 97/54 L Pulse Oximetry 95 95 95 02/09/18 20:45 02/09/18 21:00 02/09/18 21:15 Temperature Pulse Rate 79 76 76 Respiratory Rate 18 18 17 Blood Pressure 98/56 L 102/59 L 99/57 L Pulse Oximetry 94 L 92 L 92 L 02/09/18 21:30 02/09/18 21:45 02/09/18 22:00 Temperature Pulse Rate 77 76 76 Respiratory Rate 17 18 16 Blood Pressure 103/58 L 101/58 L 104/59 L Pulse Oximetry 93 L 92 L 93 L 02/09/18 22:15 02/09/18 22:30 02/09/18 22:45 Temperature Pulse Rate 75 81 79 Respiratory Rate 16 19 12 Blood Pressure 106/59 L 149/77 H 131/61 Pulse Oximetry 93 L 94 L 94 L 02/09/18 23:00 02/09/18 23:15 02/09/18 23:30 Temperature Pulse Rate 73 71 71 Respiratory Rate 18 18 18 Blood Pressure 104/53 L 100/53 L 95/51 L Pulse Oximetry 92 L 94 L 94 L 02/09/18 23:33 02/09/18 23:45 02/10/18 00:00 Temperature 97.6 F Pulse Rate 66 67 Respiratory Rate 18 18 18 Blood Pressure 101/56 L 99/55 L Pulse Oximetry 94 L 96 95 02/10/18 00:15 02/10/18 00:30 02/10/18 00:45 Temperature Pulse Rate 67 66 62 Respiratory Rate 18 18 18 Blood Pressure 95/51 L 100/56 L 102/59 L Pulse Oximetry 95 95 96 02/10/18 01:00 02/10/18 01:15 02/10/18 01:30 Temperature Pulse Rate 63 63 63 Respiratory Rate 18 18 18 Blood Pressure 93/50 L 93/51 L 93/55 L Pulse Oximetry 94 L 95 95 02/10/18 01:45 02/10/18 02:00 02/10/18 02:15 Temperature Pulse Rate 58 L 63 63 Respiratory Rate 18 18 18 Blood Pressure 113/57 L 97/52 L 98/51 L Pulse Oximetry 97 95 95 02/10/18 02:30 02/10/18 02:45 02/10/18 03:00 Temperature Pulse Rate 62 64 63 Respiratory Rate 18 18 18 Blood Pressure 101/53 L 97/55 L 97/54 L Pulse Oximetry 95 95 96 02/10/18 03:15 02/10/18 03:30 02/10/18 03:45 Temperature Pulse Rate 63 65 64 Respiratory Rate 18 18 18 Blood Pressure 98/51 L 98/50 L 98/52 L Pulse Oximetry 95 95 95 02/10/18 04:00 02/10/18 04:15 02/10/18 04:17 Temperature 97.9 F Pulse Rate 63 63 Respiratory Rate 18 18 18 Blood Pressure 97/53 L 99/51 L Pulse Oximetry 95 94 L 96 02/10/18 04:20 02/10/18 04:30 02/10/18 04:45 Temperature Pulse Rate 69 70 72 Respiratory Rate 19 18 18 Blood Pressure 96/54 L 102/55 L Pulse Oximetry 91 L 93 L 02/10/18 05:00 02/10/18 05:16 02/10/18 05:36 Temperature Pulse Rate 74 96 H 105 H Respiratory Rate 13 26 H 28 H Blood Pressure 108/55 L 113/70 167/72 H Pulse Oximetry 92 L 94 L 99 02/10/18 05:45 02/10/18 06:00 02/10/18 06:01 Temperature Pulse Rate 101 H 93 H 92 H Respiratory Rate 18 15 17 Blood Pressure 126/60 151/68 H Pulse Oximetry 98 94 L 94 L 02/10/18 10:21 Temperature Pulse Rate Respiratory Rate 16 Blood Pressure Pulse Oximetry 94 L Intake & Output 02/09/18 02/10/18 02/10/18 18:59 06:59 18:59 Intake Total 2515 / 2515 2250 / 2250 1150 / 1150 Output Total 350 / 350 1150 / 1150 Balance 2165 / 2165 1100 / 1100 1150 / 1150 Weight 92 kg Intake: IV 2315 / 2315 1850 / 1850 1150 / 1150 D5W Inj 1,000 ML @ 75 mls/hr IV 1000 / 1000 1000 / 1000 .CONT .[id number] [facility] Rx#:[id number] Versed Inj 50 mg In 50 ml @ 2 50 / 50 50 / 50 50 / 50 MG/HR 2 mls/hr IV.CONT TITRATE PRN Rx#:[id number] Diprivan 1000 mg/100 ml Inj 1, 300 / 300 250 / 250 100 / 100 000 mg In 100 ml @ 5 MCG/KG/MIN 2.58 mls/hr IV.CONT TITRATE PRN Rx#:[id number] Azactam Inj 1,000 MG In NS Inj 200 / 200 100 / 100 100 ML @ 200 mls/hr IV.SIG Q8H [facility] Rx#:[id number] D5W/1/2 NS Inj 1,000 ML @ 42 600 / 600 mls/hr IV.SIG .[id number] [facility] Rx#: [id number] Magnesium Sulfate 1 gm/D5W 100 200 / 200 ml Premix 100 ML @ 100 mls/hr IV.SIG Q1H [facility] Rx#:[id number] Vancomycin Inj 1,500 MG In NS 515 / 515 Inj 500 ML @ 250 mls/hr IV.SIG ONCE ONE Rx#:[id number] fentaNYL 10 mcg/mL Premix Drip 250 / 250 250 / 250 2,500 mcg In 250 ml @ 50 MCG/HR 5 mls/hr IV.SIG TITRATE PRN Rx #:[id number] Flagyl 500 MG Inj 100 ML @ 100 200 / 200 200 / 200 mls/hr IV.SIG Q6H [facility] Rx#: [id number] Water Bolus Amount 200 / 200 400 / 400 Output: Urine 1050 / 1050 Stool 100 / 100 Urine Amount (Catheter) 350 / 350 Indwelling Urethral Catheter 350 / 350 Other: Date of Last Bowel Movement 02/09/18 02/10/18 - Urinary Catheter Management Coude Cath placed during this visit: no Straight Cath placed during this visit: no Indwelling Urethral Catheter Cath placed during this visit: no <Travis Cook - Last Filed: 02/10/18 14:38> Results - Labs CBC & Chem 7: 02/10/18 03:48 02/10/18 03:48 Laboratory Results - last 24 hr 02/07/18 02/09/18 02/09/18 07:46 15:37 19:54 WBC RBC Hgb Hct MCV MCH MCHC RDW Plt Count MPV Neut % (Auto) Lymph % (Auto) [place]oke % (Auto) Eos % (Auto) Baso % (Auto) Neut # (Auto) Lymph # (Auto) [place] # (Auto) Eos # (Auto) Baso # (Auto) WBC Differential Differential Comment Sodium Potassium Chloride Carbon Dioxide Anion Gap BUN Creatinine Estimated GFR POC Glucose 94 138 H Random Glucose Calcium Phosphorus Magnesium Total Bilirubin AST ALT Alkaline Phosphatase Total Protein Albumin Random Vancomycin MTS Gel Crossmatch See Detail 02/10/18 02/10/18 02/10/18 00:24 03:48 03:48 WBC 11.3 H RBC 2.20 L Hgb 7.4 L Hct 22.1 L MCV 100.4 H MCH 33.6 MCHC 33.4 RDW 16.8 Plt Count 336 MPV 8.9 Neut % (Auto) 88.9 H Lymph % (Auto) 8.7 L [place]oke % (Auto) 1.6 Eos % (Auto) 0.1 Baso % (Auto) 0.7 Neut # (Auto) 10.0 H Lymph # (Auto) 1.0 [place]oke # (Auto) 0.2 Eos # (Auto) 0.0 Baso # (Auto) 0.1 WBC Differential . Differential Comment Auto diff final Sodium 146 H Potassium 3.8 Chloride 114 H Carbon Dioxide 21.5 Anion Gap 11 BUN 19 H Creatinine 1.22 Estimated GFR 69 L POC Glucose 168 H Random Glucose 170 H Calcium 8.2 L Phosphorus 4.8 D Magnesium 1.9 Total Bilirubin 0.3 AST 13 L ALT 12 Alkaline Phosphatase 129 H Total Protein 5.2 L Albumin 1.2 L Random Vancomycin 19.8 MTS Gel Crossmatch 02/10/18 02/10/18 02/10/18 03:55 09:21 12:22 WBC RBC Hgb Hct MCV MCH MCHC RDW Plt Count MPV Neut % (Auto) Lymph % (Auto) [place]oke % (Auto) Eos % (Auto) Baso % (Auto) Neut # (Auto) Lymph # (Auto) [place]oke # (Auto) Eos # (Auto) Baso # (Auto) WBC Differential Differential Comment Sodium Potassium Chloride Carbon Dioxide Anion Gap BUN Creatinine Estimated GFR POC Glucose 175 H 170 H 176 H Random Glucose Calcium Phosphorus Magnesium Total Bilirubin AST ALT Alkaline Phosphatase Total Protein Albumin Random Vancomycin MTS Gel Crossmatch Microbiology 02/05/18 22:13 Blood - Peripheral Aerobic Blood Culture - Final No growth in 5 days 02/05/18 22:13 Blood - Peripheral Anaerobic Blood Culture - Final No growth in 5 days 02/05/18 22:18 Blood - Peripheral Aerobic Blood Culture - Final No growth in 5 days 02/05/18 22:18 Blood - Peripheral Anaerobic Blood Culture - Final No growth in 5 days 02/08/18 17:00 Catheterized Urine Urine Culture - Final Oliva albicans - Imaging Impressions Head MRI 02/09/18 00:00 CONCLUSION: 1. Normal MRI of the brain. 2. Sinusitis and mastoiditis. <Linda Romeo - Last Filed: 02/10/18 12:55> - Labs CBC & Chem 7: 02/10/18 03:48 02/10/18 03:48 Laboratory Results - last 24 hr 02/07/18 02/09/18 02/09/18 07:46 15:37 19:54 WBC RBC Hgb Hct MCV MCH MCHC RDW Plt Count MPV Neut % (Auto) Lymph % (Auto) [place]oke % (Auto) Eos % (Auto) Baso % (Auto) Neut # (Auto) Lymph # (Auto) [place] # (Auto) Eos # (Auto) Baso # (Auto) WBC Differential Differential Comment Sodium Potassium Chloride Carbon Dioxide Anion Gap BUN Creatinine Estimated GFR POC Glucose 94 138 H Random Glucose Calcium Phosphorus Magnesium Total Bilirubin AST ALT Alkaline Phosphatase Total Protein Albumin Random Vancomycin MTS Gel Crossmatch See Detail 02/10/18 02/10/18 02/10/18 00:24 03:48 03:48 WBC 11.3 H RBC 2.20 L Hgb 7.4 L Hct 22.1 L MCV 100.4 H MCH 33.6 MCHC 33.4 RDW 16.8 Plt Count 336 MPV 8.9 Neut % (Auto) 88.9 H Lymph % (Auto) 8.7 L [place]oke % (Auto) 1.6 Eos % (Auto) 0.1 Baso % (Auto) 0.7 Neut # (Auto) 10.0 H Lymph # (Auto) 1.0 Cooke # (Auto) 0.2 Eos # (Auto) 0.0 Baso # (Auto) 0.1 WBC Differential . Differential Comment Auto diff final Sodium 146 H Potassium 3.8 Chloride 114 H Carbon Dioxide 21.5 Anion Gap 11 BUN 19 H Creatinine 1.22 Estimated GFR 69 L POC Glucose 168 H Random Glucose 170 H Calcium 8.2 L Phosphorus 4.8 D Magnesium 1.9 Total Bilirubin 0.3 AST 13 L ALT 12 Alkaline Phosphatase 129 H Total Protein 5.2 L Albumin 1.2 L Random Vancomycin 19.8 MTS Gel Crossmatch 02/10/18 02/10/18 02/10/18 03:55 09:21 12:22 WBC RBC Hgb Hct MCV MCH MCHC RDW Plt Count MPV Neut % (Auto) Lymph % (Auto) [place]oke % (Auto) Eos % (Auto) Baso % (Auto) Neut # (Auto) Lymph # (Auto) [place] # (Auto) Eos # (Auto) Baso # (Auto) WBC Differential Differential Comment Sodium Potassium Chloride Carbon Dioxide Anion Gap BUN Creatinine Estimated GFR POC Glucose 175 H 170 H 176 H Random Glucose Calcium Phosphorus Magnesium Total Bilirubin AST ALT Alkaline Phosphatase Total Protein Albumin Random Vancomycin MTS Gel Crossmatch Microbiology 02/05/18 22:13 Blood - Peripheral Aerobic Blood Culture - Final No growth in 5 days 02/05/18 22:13 Blood - Peripheral Anaerobic Blood Culture - Final No growth in 5 days 02/05/18 22:18 Blood - Peripheral Aerobic Blood Culture - Final No growth in 5 days 02/05/18 22:18 Blood - Peripheral Anaerobic Blood Culture - Final No growth in 5 days 02/08/18 17:00 Catheterized Urine Urine Culture - Final Oliva albicans - Imaging Impressions Head MRI 02/09/18 00:00 CONCLUSION: 1. Normal MRI of the brain. 2. Sinusitis and mastoiditis. <Travis Cook - Last Filed: 02/10/18 14:38> Assessment and Plan - Plan Assessment: - PEG tube consult- Presented to the ER on Jan 28 for complaints of nausea, vomiting, and diarrhea. Pt was also noted to have a seizure disorder and is noncompliant with his medication. According to the notes the RN in the ER thought the pt was having a seizure, doctor was called to bedside, pt was found to be pulseless and CPR was begun. Initial rhythm was V, fib, ROSC was achieved after 35 minutes. Pt is currently being managed in ICU, he has not been able to be weaned from the vent and therefore tracheostomy was done today. According to RN, pt did have high residuals from tube feeding. - C. Diff toxin positive, epid negative- Flagyl and Vancomycin - ETOH abuse- according to records quit drinking 4 weeks prior to arrival - Elevated LFTs likely secondary to above 02/10/2018 patient is status post PEG tube placement currently still being monitored in the intensive care setting. Currently hemoglobin 7.4 but he stayed in that general range over the past 72 hours. Randomly opens eyes but is not following or obeying any commands for now family member in room. No obvious nausea vomiting or abdominal pain. C. difficile treatment continues. Abdominal x-rays back on 02/08 showed no obstructive pattern. Will monitor and restart tube feeds trickle feeds. GI will follow-up only as needed please call for any further GI symptoms Plan: Dietary recommend restart tube feeds trickle feed, Jevity 1.5 Monitor labs with special attention hemoglobin and any obvious bleed Supportive care to patient and his family Flagyl Zofran Antibiotics per attending IV Intake and output monitor number of stools Patient was seen per myself and Dr. Cook, note was written on his behalf <Linda Romeo - Last Filed: 02/10/18 12:55> - Attending Attestation Agree with above, please notify us if needed again. <Travis Cook - Last Filed: 02/10/18 14:38>
--- NOTE | 2018-02-10 14:33 | P.PNNP ---
Subjective Interval history: renal function is stable. Hypernatremia has improved. PEG tube placed. Physical Exam Vital signs: Vital Signs 02/09/18 14:46 02/09/18 15:00 02/09/18 15:15 Temperature Pulse Rate 102 H 101 H 100 H Respiratory Rate 21 16 18 Blood Pressure 150/67 H 148/65 H 142/64 H Pulse Oximetry 99 96 96 02/09/18 15:30 02/09/18 15:45 02/09/18 15:58 Temperature Pulse Rate 100 H 96 H 96 H Respiratory Rate 18 18 19 Blood Pressure 141/62 H 140/63 Pulse Oximetry 96 96 97 02/09/18 16:00 02/09/18 16:15 02/09/18 16:30 Temperature Pulse Rate 95 H 94 H 93 H Respiratory Rate 19 18 18 Blood Pressure 156/70 H 144/65 H 144/64 H Pulse Oximetry 97 95 95 02/09/18 16:45 02/09/18 17:00 02/09/18 17:15 Temperature Pulse Rate 91 H 87 85 Respiratory Rate 18 18 42 H Blood Pressure 137/64 140/63 147/67 H Pulse Oximetry 95 96 100 02/09/18 18:00 02/09/18 18:01 02/09/18 18:06 Temperature Pulse Rate 96 H 97 H 103 H Respiratory Rate 20 Blood Pressure 139/76 Pulse Oximetry 02/09/18 18:12 02/09/18 19:00 02/09/18 19:54 Temperature Pulse Rate 86 79 Respiratory Rate 16 18 Blood Pressure 104/59 L Pulse Oximetry 99 94 L 95 02/09/18 20:00 02/09/18 20:15 02/09/18 20:30 Temperature 98.4 F Pulse Rate 80 79 78 Respiratory Rate 18 18 18 Blood Pressure 98/53 L 99/53 L 97/54 L Pulse Oximetry 95 95 95 02/09/18 20:45 02/09/18 21:00 02/09/18 21:15 Temperature Pulse Rate 79 76 76 Respiratory Rate 18 18 17 Blood Pressure 98/56 L 102/59 L 99/57 L Pulse Oximetry 94 L 92 L 92 L 02/09/18 21:30 02/09/18 21:45 02/09/18 22:00 Temperature Pulse Rate 77 76 76 Respiratory Rate 17 18 16 Blood Pressure 103/58 L 101/58 L 104/59 L Pulse Oximetry 93 L 92 L 93 L 02/09/18 22:15 02/09/18 22:30 02/09/18 22:45 Temperature Pulse Rate 75 81 79 Respiratory Rate 16 19 12 Blood Pressure 106/59 L 149/77 H 131/61 Pulse Oximetry 93 L 94 L 94 L 02/09/18 23:00 02/09/18 23:15 02/09/18 23:30 Temperature Pulse Rate 73 71 71 Respiratory Rate 18 18 18 Blood Pressure 104/53 L 100/53 L 95/51 L Pulse Oximetry 92 L 94 L 94 L 02/09/18 23:33 02/09/18 23:45 02/10/18 00:00 Temperature 97.6 F Pulse Rate 66 67 Respiratory Rate 18 18 18 Blood Pressure 101/56 L 99/55 L Pulse Oximetry 94 L 96 95 02/10/18 00:15 02/10/18 00:30 02/10/18 00:45 Temperature Pulse Rate 67 66 62 Respiratory Rate 18 18 18 Blood Pressure 95/51 L 100/56 L 102/59 L Pulse Oximetry 95 95 96 02/10/18 01:00 02/10/18 01:15 02/10/18 01:30 Temperature Pulse Rate 63 63 63 Respiratory Rate 18 18 18 Blood Pressure 93/50 L 93/51 L 93/55 L Pulse Oximetry 94 L 95 95 02/10/18 01:45 02/10/18 02:00 02/10/18 02:15 Temperature Pulse Rate 58 L 63 63 Respiratory Rate 18 18 18 Blood Pressure 113/57 L 97/52 L 98/51 L Pulse Oximetry 97 95 95 02/10/18 02:30 02/10/18 02:45 02/10/18 03:00 Temperature Pulse Rate 62 64 63 Respiratory Rate 18 18 18 Blood Pressure 101/53 L 97/55 L 97/54 L Pulse Oximetry 95 95 96 02/10/18 03:15 02/10/18 03:30 02/10/18 03:45 Temperature Pulse Rate 63 65 64 Respiratory Rate 18 18 18 Blood Pressure 98/51 L 98/50 L 98/52 L Pulse Oximetry 95 95 95 02/10/18 04:00 02/10/18 04:15 02/10/18 04:17 Temperature 97.9 F Pulse Rate 63 63 Respiratory Rate 18 18 18 Blood Pressure 97/53 L 99/51 L Pulse Oximetry 95 94 L 96 02/10/18 04:20 02/10/18 04:30 02/10/18 04:45 Temperature Pulse Rate 69 70 72 Respiratory Rate 19 18 18 Blood Pressure 96/54 L 102/55 L Pulse Oximetry 91 L 93 L 02/10/18 05:00 02/10/18 05:16 02/10/18 05:36 Temperature Pulse Rate 74 96 H 105 H Respiratory Rate 13 26 H 28 H Blood Pressure 108/55 L 113/70 167/72 H Pulse Oximetry 92 L 94 L 99 02/10/18 05:45 02/10/18 06:00 02/10/18 06:01 Temperature Pulse Rate 101 H 93 H 92 H Respiratory Rate 18 15 17 Blood Pressure 126/60 151/68 H Pulse Oximetry 98 94 L 94 L 02/10/18 10:21 Temperature Pulse Rate Respiratory Rate 16 Blood Pressure Pulse Oximetry 94 L Intake & Output 02/09/18 02/10/18 02/10/18 18:59 06:59 18:59 Intake Total 2515 / 2515 2250 / 2250 1150 / 1150 Output Total 350 / 350 1150 / 1150 Balance 2165 / 2165 1100 / 1100 1150 / 1150 Weight 92 kg Intake: IV 2315 / 2315 1850 / 1850 1150 / 1150 D5W Inj 1,000 ML @ 75 mls/hr IV 1000 / 1000 1000 / 1000 .CONT .[id number] [facility] Rx#:[id number] Versed Inj 50 mg In 50 ml @ 2 50 / 50 50 / 50 50 / 50 MG/HR 2 mls/hr IV.CONT TITRATE PRN Rx#:[id number] Diprivan 1000 mg/100 ml Inj 1, 300 / 300 250 / 250 100 / 100 000 mg In 100 ml @ 5 MCG/KG/MIN 2.58 mls/hr IV.CONT TITRATE PRN Rx#:[id number] Azactam Inj 1,000 MG In NS Inj 200 / 200 100 / 100 100 ML @ 200 mls/hr IV.SIG Q8H [facility] Rx#:[id number] D5W/1/2 NS Inj 1,000 ML @ 42 600 / 600 mls/hr IV.SIG .[id number] [facility] Rx#: [id number] Magnesium Sulfate 1 gm/D5W 100 200 / 200 ml Premix 100 ML @ 100 mls/hr IV.SIG Q1H [facility] Rx#:[id number] Vancomycin Inj 1,500 MG In NS 515 / 515 Inj 500 ML @ 250 mls/hr IV.SIG ONCE ONE Rx#:[id number] fentaNYL 10 mcg/mL Premix Drip 250 / 250 250 / 250 2,500 mcg In 250 ml @ 50 MCG/HR 5 mls/hr IV.SIG TITRATE PRN Rx #:[id number] Flagyl 500 MG Inj 100 ML @ 100 200 / 200 200 / 200 mls/hr IV.SIG Q6H [facility] Rx#: [id number] Water Bolus Amount 200 / 200 400 / 400 Output: Urine 1050 / 1050 Stool 100 / 100 Urine Amount (Catheter) 350 / 350 Indwelling Urethral Catheter 350 / 350 Other: Date of Last Bowel Movement 02/09/18 02/10/18 Narrative: GENERAL: on the vent. Frail, muscle wasting. s/p tracheostomy. s/p PEG tube placement. NECK: No carotid bruits. No JVD. CARDIOVASCULAR: Regular rate and rhythm. No murmur appreciated. RESPIRATORY: Mechanically ventilated. Coarse breath sounds. MUSCULOSKELETAL: No clubbing or cyanosis. No edema. NEUROLOGICAL: sedated. - Urinary Catheter Management Coude Cath placed during this visit: yes, but has since been removed by the nurse Reason for continuing: Decision to DC catheter Insertion date: 01/28/18 Insertion time: 13:15 Removal date: 02/03/18 Removal time: 15:15 Straight Cath placed during this visit: yes, but has since been removed by the nurse Reason for continuing: Acute urinary retention Insertion date: 02/04/18 Insertion time: 07:00 Removal date: 02/04/18 Indwelling Urethral Catheter Cath placed during this visit: yes, but has since been removed by the nurse Reason for continuing: Decision to DC catheter Insertion date: 02/04/18 Insertion time: 07:00 Removal date: 02/09/18 Removal time: 14:10 Assessment and Plan - Assessment (1) Acute kidney failure Code(s): N17.9 - Acute kidney failure, unspecified Status: Acute Plan: Most likely suffered ATN. Renal function has improved. Monitor. Avoid nephrotoxic agents. Hypernatremia has improved. (2) Hypokalemia Code(s): E87.6 - Hypokalemia Status: Acute Plan: Replace potassium as needed. (3) Cardiomyopathy Code(s): I42.9 - Cardiomyopathy, unspecified Status: Acute Plan: Troponin was high, cardiology following. Alcohol induced cardiomyopathy is a possibility. - Attending Attestation I will sign off at this time. If tolerating enteral intake, start free water flushes and stop D5W.
[2018-02-10] MEDS: Vancomycin Inj 1,500 MG in Sodium Chlor 0.9% Inj 500 ML IV.SIG SCH (19:22)
[2018-02-11] MEDS: Dextrose 5% in Water Inj 1,000 ML IV.CONT SCH (01:34)
[2018-02-11] MEDS: Midazolam 50 MG/50 ML Inj 50 MG/50 ML BAG IV.CONT PRN ×3 (02:20→22:16)
[2018-02-11] MEDS: Vancomycin Inj 1,500 MG in Sodium Chlor 0.9% Inj 500 ML IV.SIG SCH ×2 (02:22→03:23)
[2018-02-11] MEDS: Propofol 1000 mg/100 ml Inj 1,000 MG/100 ML BOTTLE IV.CONT PRN ×6 (03:51→22:10)
[2018-02-11 05:01] LABS: Baso # (Auto) 0.1 th/mm3 (0.0-0.2); Baso % (Auto) 0.5 % (0.0-2.0); Eos # (Auto) 0.2 th/mm3 (0.0-0.4); Eos % (Auto) 1.6 % (0.0-4.0); Lymph # (Auto) 2.5 th/mm3 (1.0-4.8); Lymph % (Auto) 17.4 % (9.0-44.0); Mean Corpuscular HGB Conc 33.4 % (32.0-36.0); Mean Corpuscular Hemoglobin 33.3 pg (27.0-34.0); Mean Corpuscular Volume 99.5 fL (80.0-100.0); Mean Platelet Volume 8.6 fL (7.0-11.0); Mono # (Auto) 0.8 th/mm3 (0.0-0.9); Mono % (Auto) 5.4 % (0.0-8.0); Neut # (Auto) 10.7 th/mm3 (1.8-7.7); Neut % (Auto) 75.1 % (16.0-70.0); Platelet Count 489 th/mm3 (150-450); Red Blood Count 2.41 mil/mm3 (4.50-5.90); Red Cell Distribution Width 16.6 % (11.6-17.2); White Blood Count 14.2 th/mm3 (4.0-11.0)
[2018-02-11] MEDS: fentaNYL 10 mcg/mL Premix Drip 2,500 MCG/250 ML BAG IV.SIG PRN ×2 (05:24→15:51)
[2018-02-11] MEDS: Insulin NovoLOG Aspart Correctional Sugar Inj SQ SCH ×5 (05:24→22:14)
[2018-02-11] MEDS: Oral Hygiene Kit OROPHARYNG SCH ×3 (05:24→15:27)
[2018-02-11 05:30] LABS: Calcium 8.4 mg/dL (8.5-10.1); Magnesium 1.6 mg/dL (1.5-2.5); Potassium 3.2 meq/L (3.5-5.1)
[2018-02-11] MEDS: Aspirin 325 MG Tablet PO SCH (08:34)
[2018-02-11] MEDS: QUEtiapine 25 MG Tablet NG/OG SCH ×2 (08:34→22:13)
[2018-02-11] MEDS: Famotidine PF Inj 20 MG/2 ML Vial IV.PUSH SCH ×2 (08:35→22:12)
[2018-02-11] MEDS: Senna/Docusate Sodium 8.6/50 MG Tablet PO SCH ×2 (08:35→22:13)
[2018-02-11] MEDS: levETIRAcetam 500 MG Tablet NG/OG SCH ×2 (08:35→22:13)
[2018-02-11] MEDS: Chlorhexidine 0.12% Oral Kit 15 ML UDC OROPHARYNG SCH (08:35)
[2018-02-11] MEDS: Carboxymethylcellulose 0.5% Opth Drops 15 ML Bottle EACH EYE SCH ×2 (08:36→22:14)
[2018-02-11] MEDS ORDERED: Potassium Chloride 25 MEQ Effervescent Tablet PO ONE (09:15)
--- NOTE | 2018-02-11 10:25 | P.PNID ---
Subjective Remarks: ID Xcover for is a 32-year-old white male who presented to the emergency department with 2-day history of nausea, vomiting, and diarrhea. The patient ended up intubated after he went into ventricular fibrillation cardiac arrest and was resuscitated. He also was noted to have seizure activity. Overnight events reviewed with RN. Patient is sedated on the ventilator. On CPAP. Status post tracheostomy 02/08/2018. PICC placement 02/09/2018. White blood cell count is lower. Afebrile. Diffuse maculopapular rash still prominent on abdomen Urine culture as Oliva. Cefepime was discontinued 02/08/2018. Last blood culture on 02/05/2018 as no growth. Chest x-ray shows right lung infiltrate. CT scan of the head showed no acute abnormality. Antibiotics: Azactam IV Vanco IV Lines: Lines ok Past Medical History: PAST MEDICAL HISTORY: Alcohol abuse, gastroesophageal reflux disease, hernia, depression, pancreatitis, seizure disorder, left inguinal hernia repair. Allergies/Adverse Reactions: Allergies Sulfa (Sulfonamide Antibiotics) Allergy (Severe, Verified 10/11/17 07:56) hives Objective Vital Signs 02/10/18 10:21 02/10/18 11:00 02/10/18 12:00 Temperature 98.5 F Pulse Rate 109 H 111 H Respiratory Rate 16 17 21 Blood Pressure 148/67 H 138/64 Pulse Oximetry 94 L 94 L 95 02/10/18 13:00 02/10/18 14:00 02/10/18 15:00 Temperature Pulse Rate 115 H 117 H 114 H Respiratory Rate 18 23 18 Blood Pressure 140/90 170/72 H 160/70 H Pulse Oximetry 95 96 96 02/10/18 16:00 02/10/18 17:00 02/10/18 17:39 Temperature 98 F Pulse Rate 117 H 113 H Respiratory Rate 25 H 21 25 H Blood Pressure 159/74 H 176/81 H Pulse Oximetry 97 02/10/18 17:40 02/10/18 18:00 02/10/18 18:18 Temperature Pulse Rate 116 H 119 H 118 H Respiratory Rate 26 H 23 22 Blood Pressure 192/79 H 170/85 H Pulse Oximetry 98 99 02/10/18 19:00 02/10/18 19:30 02/10/18 20:00 Temperature 98.6 F Pulse Rate 104 H 93 H 95 H Respiratory Rate 17 21 19 Blood Pressure 154/65 H 135/70 Pulse Oximetry 100 99 02/10/18 21:00 02/10/18 21:01 02/10/18 22:00 Temperature Pulse Rate 84 83 80 Respiratory Rate 17 17 17 Blood Pressure 120/56 L 113/62 Pulse Oximetry 98 98 95 02/10/18 23:00 02/10/18 23:01 02/11/18 00:00 Temperature 99.1 F Pulse Rate 91 H 93 H 104 H Respiratory Rate 16 16 15 Blood Pressure 142/82 H 142/65 H Pulse Oximetry 100 100 99 02/11/18 00:10 02/11/18 01:00 02/11/18 02:00 Temperature Pulse Rate 82 78 Respiratory Rate 19 16 18 Blood Pressure 116/56 L 105/51 L Pulse Oximetry 99 100 99 02/11/18 03:00 02/11/18 03:01 02/11/18 03:08 Temperature Pulse Rate 75 75 77 Respiratory Rate 18 18 18 Blood Pressure 107/41 L 132/73 Pulse Oximetry 99 99 98 02/11/18 03:30 02/11/18 03:40 02/11/18 03:43 Temperature Pulse Rate 100 H 98 H Respiratory Rate 18 22 22 Blood Pressure 144/73 H Pulse Oximetry 98 97 02/11/18 04:00 02/11/18 04:30 02/11/18 05:00 Temperature 98.6 F Pulse Rate 122 H 117 H 101 H Respiratory Rate 24 23 17 Blood Pressure 152/72 H 145/66 H 168/65 H Pulse Oximetry 97 99 98 02/11/18 05:30 02/11/18 06:00 02/11/18 06:01 Temperature Pulse Rate 98 H 109 H 111 H Respiratory Rate 21 41 H 37 H Blood Pressure 121/85 208/111 H Pulse Oximetry 96 100 100 02/11/18 06:06 02/11/18 07:00 02/11/18 08:00 Temperature 98.2 F Pulse Rate 109 H 91 H 86 Respiratory Rate 21 17 16 Blood Pressure 151/69 H 110/57 L 139/63 Pulse Oximetry 100 100 98 02/11/18 09:00 02/11/18 10:00 Temperature Pulse Rate 91 H 92 H Respiratory Rate 10 L 11 L Blood Pressure 126/58 L 123/57 L Pulse Oximetry 98 98 Intake & Output 02/10/18 02/11/18 02/11/18 18:59 06:59 18:59 Intake Total 2019 / 2020 2400 / 2400 615 / 615 Output Total 950 / 950 1125 / 1125 Balance 1070 / 1070 1275 / 1275 615 / 615 Weight 93.5 kg Intake: IV 1600 / 1600 1800 / 1800 615 / 615 D5W Inj 1,000 ML @ 75 mls/hr IV 1000 / 1000 1000 / 1000 .CONT .[id number] [facility] Rx#:[id number] Versed Inj 50 mg In 50 ml @ 2 50 / 50 50 / 50 MG/HR 2 mls/hr IV.CONT TITRATE PRN Rx#:[id number] Diprivan 1000 mg/100 ml Inj 1, 200 / 200 200 / 200 100 / 100 000 mg In 100 ml @ 5 MCG/KG/MIN 2.58 mls/hr IV.CONT TITRATE PRN Rx#:[id number] Azactam Inj 1,000 MG In NS Inj 100 / 100 200 / 200 100 ML @ 200 mls/hr IV.SIG Q8H [facility] Rx#:[id number] Vancomycin Inj 1,500 MG In NS 515 / 515 Inj 500 ML @ 250 mls/hr IV.SIG Q12H [facility] Rx#:[id number] fentaNYL 10 mcg/mL Premix Drip 250 / 250 250 / 250 2,500 mcg In 250 ml @ 50 MCG/HR 5 mls/hr IV.SIG TITRATE PRN Rx #:[id number] Flagyl 500 MG Inj 100 ML @ 100 100 / 100 mls/hr IV.SIG Q6H [facility] Rx#: [id number] Tube Feeding 20 / 20 200 / 200 Water Bolus Amount 400 / 400 400 / 400 Output: Urine 200 / 200 Stool 25 / 25 Urine Amount (Catheter) 750 / 750 1100 / 1100 Straight 750 / 750 1100 / 1100 Other: Date of Last Bowel Movement 02/11/18 02/05/18 22:13 Blood - Peripheral Aerobic Blood Culture - Final No growth in 5 days 02/05/18 22:13 Blood - Peripheral Anaerobic Blood Culture - Final No growth in 5 days 02/05/18 22:18 Blood - Peripheral Aerobic Blood Culture - Final No growth in 5 days 02/05/18 22:18 Blood - Peripheral Anaerobic Blood Culture - Final No growth in 5 days 02/08/18 17:00 Catheterized Urine Urine Culture - Final Oliva albicans 02/06/18 08:25 Sputum - Endotracheal Gram Stain - Final 02/06/18 08:25 Sputum - Endotracheal Sputum Culture - Final Heavy growth normal respiratory pepito 02/06/18 03:00 Catheterized Urine Urine Culture - Final No growth in 48 hours Lab - Hematology Results 02/10/18 02/11/18 03:48 04:22 WBC 11.3 H 14.2 H RBC 2.20 L 2.41 L Hgb 7.4 L 8.0 L Hct 22.1 L 24.0 L MCV 100.4 H 99.5 MCH 33.6 33.3 MCHC 33.4 33.4 RDW 16.8 16.6 Plt Count 336 489 H D MPV 8.9 8.6 Neut % (Auto) 88.9 H 75.1 H Lymph % (Auto) 8.7 L 17.4 [place] % (Auto) 1.6 5.4 Eos % (Auto) 0.1 1.6 Baso % (Auto) 0.7 0.5 Neut # (Auto) 10.0 H 10.7 H Lymph # (Auto) 1.0 2.5 [place] # (Auto) 0.2 0.8 Eos # (Auto) 0.0 0.2 Baso # (Auto) 0.1 0.1 WBC Differential . . Differential Comment Auto diff final Auto diff final Lab - Chemistry Results 02/09/18 02/09/18 02/09/18 11:23 15:37 19:54 Sodium Potassium Chloride Carbon Dioxide Anion Gap BUN Creatinine Estimated GFR POC Glucose 85 94 138 H Random Glucose Calcium Phosphorus Magnesium Total Bilirubin AST ALT Alkaline Phosphatase Total Protein Albumin 02/10/18 02/10/18 02/10/18 00:24 03:48 03:55 Sodium 146 H Potassium 3.8 Chloride 114 H Carbon Dioxide 21.5 Anion Gap 11 BUN 19 H Creatinine 1.22 Estimated GFR 69 L POC Glucose 168 H 175 H Random Glucose 170 H Calcium 8.2 L Phosphorus 4.8 D Magnesium 1.9 Total Bilirubin 0.3 AST 13 L ALT 12 Alkaline Phosphatase 129 H Total Protein 5.2 L Albumin 1.2 L 02/10/18 02/10/18 02/10/18 09:21 12:22 15:29 Sodium Potassium Chloride Carbon Dioxide Anion Gap BUN Creatinine Estimated GFR POC Glucose 170 H 176 H 149 H Random Glucose Calcium Phosphorus Magnesium Total Bilirubin AST ALT Alkaline Phosphatase Total Protein Albumin 02/10/18 02/10/18 02/11/18 19:35 23:11 03:28 Sodium Potassium Chloride Carbon Dioxide Anion Gap BUN Creatinine Estimated GFR POC Glucose 137 H 122 H 107 Random Glucose Calcium Phosphorus Magnesium Total Bilirubin AST ALT Alkaline Phosphatase Total Protein Albumin 02/11/18 02/11/18 04:22 08:33 Sodium 143 Potassium 3.2 L Chloride 110 H Carbon Dioxide 22.0 Anion Gap 11 BUN 26 H Creatinine 1.18 Estimated GFR 72 L POC Glucose 103 Random Glucose 108 H Calcium 8.4 L Phosphorus 3.0 D Magnesium 1.6 Total Bilirubin AST ALT Alkaline Phosphatase Total Protein Albumin Imaging: ITS Impressions Abdomen/Pelvis CT 01/28/18 00:00 CONCLUSION: 1. There is a new finding of presumed pneumobilia in the left hepatic lobe. Is there a history of recent instrumentation? Portal venous gas is not entirely excluded. 2. Mild induration of the peripancreatic fat proximally suggest mild acute pancreatitis. 3. Small fat-containing umbilical hernia. 4. Pulmonary consolidation is noted as above. 5. Mild gaseous distention of the stomach. Chest CT 01/28/18 00:00 CONCLUSION: 1. Bilateral consolidation most pronounced in the left lower lobe and left upper lobe posteriorly. Gallbladder Ultrasound 01/30/18 00:00 CONCLUSION: 1. Unremarkable study. Abdomen/Bladder Ultrasound 01/30/18 15:17 CONCLUSION: 1. Negative renal sonogram. Head CT 02/06/18 03:50 CONCLUSION: 1. No acute intracranial abnormalities. . Abdomen X-Ray 02/08/18 00:00 CONCLUSION: NG tube placement as above. Chest X-Ray 02/08/18 14:56 CONCLUSION: 1. Consolidating infiltrate has developed in the right midlung and left base 2. Interval placement of a tracheostomy tube and removal of endotracheal tube. 3. Otherwise stable chest. Head MRI 02/09/18 00:00 CONCLUSION: 1. Normal MRI of the brain. 2. Sinusitis and mastoiditis. Physical Exam: PHYSICAL EXAMINATION: GENERAL: Sedated. HEENT: Pupils are equal and reactive. No icterus. Oropharynx intubated. NECK: No adenopathy or swelling. LUNGS: Rhonchi at the right base. HEART: Regular S1 and S2. No murmurs heard. ABDOMEN: Bowel sounds diminished, high-pitched. Soft. No tenderness appreciated on palpation. EXTREMITIES: No clubbing, cyanosis; trace edema of the hands. SKIN: Diffuse maculopapular rash is fading. More apparent at the chest and upper extremities. NEUROLOGIC: Unable to fully assess. Opens eyes. PSYCHIATRIC: Unable to fully assess. Assessment and Plan - Plan IMPRESSION: 1. Possible sepsis. However cultures have been negative. Previous staph coagulase positive blood culture felt to be contamination. Subsequent cultures negative. No clear source. Temperature improved. 2. Skin rash. Likely drug related. Probably cefepime was associated. 3. Pneumonia. Suspect aspiration. 4. Status post cardiac arrest. 5. Acute respiratory failure. Patient now post tracheostomy. 6. Acute renal failure. Improved. 7. Seizure disorder. 8. Diarrhea. Questionable antibiotic associated. C. difficile toxin negative. Per mom patient has not had a history of C. difficile. 9. Oliva UTI. 10. Leukocytosis improving. RECOMMENDATIONS: DC vancomycin intravenous as no MRSA identified in sputum and blood cultures appear to be contaminants. Continue Azactam IV. Monitor temperature. Monitor clinical status. Continue to monitor white blood cell count. Follow cultures Follow clinical course. will resume care on Tuesday. If any interim clinical change please call me back.
[2018-02-11] MEDS: Potassium Chlor 10 mEq Premix 10 MEQ/100 ML PIGGYBACK IV.SIG SCH ×3 (10:55→13:09)
[2018-02-11] MEDS: Mag Sulf 1 gm/100 ml Premix 100 ML IV.SIG SCH ×2 (10:55→12:00)
--- NOTE | 2018-02-11 13:43 | P.PNCC ---
Subjective Subjective Remarks/Hospital Course: This is a 32-year-old male. Admission 01/28/2018. Past medical history includes seizure disorder/noncompliant with levetiracetam, previous EtOH sober for 4 weeks, anorexia, gastroesophageal reflux disease and chronic pancreatitis. Patient presented to [facility] 01/28/2018 with a two-day history of nausea vomiting and diarrhea. Patient's mother/discussed at bedside stated she had just had a "stomach flu" which she has currently recovered. Mom states that the patient has become fairly dehydrated is been having some cramping of his hands. She is worried that he is getting dehydrated and his potassium might begin low. He was unable to tolerate a banana so she gave him some potassium pills p.o. which she also did not tolerate and threw up. Sober 4 weeks according to mother. Patient was noted to have a low potassium at 2.0. Creatinine of 4.0. This is in line with his previous hospitalizations for acute dehydration. Lipase was slightly elevated. Patient does have a history of seizure disorder which is not compliant with levetiracetam. ED physician was called into room because the RN believed he had a seizure. Patient was unresponsive. Mother states this was not like any seizure that she had seen. Pulses not palpable therefore CPR was initiated. Initial rhythm was V. fib. Patient received amiodarone, lidocaine, epinephrine, bicarbonate, magnesium during the 35 minute code with return of spontaneous circulation after 35 minutes. Pupils are about 9 mils bilaterally and 6. When I saw the patient patient was actively thrashing moving all 4 extremities spontaneously but not to command. Pupils are round 8 mm bilaterally and nonreactive. Brain CT revealed no acute findings. CT thorax revealed a left upper and lower lobe. CT abdomen pelvis pending at time of dictation. Likely, troponin pending. EKG revealed incomplete right bundle block with ST depression in the inferior and lateral leads. Cardiology consulted. They will evaluate after stat echocardiogram and troponins been completed. Potassium will be replaced pending [facility] 01/29: persistently in shock. following commands this AM. trop uptrended overnight and now > 40. on levo @ 10, vasopressin. bedside echo with persistence of his global severe LV systolic dysfunction. IVC dilated without respiratory variation. initially attempted therapeutic hypothermia, but became arrhythmogenic and neurologic exam improved and now following commands, so hypothermia aborted. persistently hypokalemic and hypophosphatemic this AM. in addition, remains with severe metabolic alkalosis. 01/30: Troponin trending down, continues to have severe hypokalemia and metabolic alkalosis. Creatinine continues to trend up, only produced 200 cc of urine over the past 24 hours. 01/31: Patient seen by nephrology yesterday and given bumex, urine output dramatically increased, potassium improved with aggressive repletion, pressors now off and dobutamine at 5. 02/01: No issues overnight. Patient tolerated dobutamine at 2 yesterday, discontinued this morning. Switching propofol to precedex and would like to start SBTs today. Overall improved. 02/02: Tolerated switch to precedex yesterday and was on bipap 05/06 for several hours yesterday afternoon, placed back on AC overnight to avoid respiratory fatigue. 02/03: Patient had no overnight events, tolerated SBT x 5 hours yesterday. Significantly agitated this morning during sedation vacation. 02/04: Patient still struggles with agitation when we lighten sedation. 02/05: Temp 103F this morning, no obvious source of infection. Needs to have PICC line placed today. 02/06: reintubated yesterday. overnight persistently febrile. this morning appears in distress- tachypneic on the ventilator, acidotic. potassium up to 5.8 despite medical management. bedside echo with improving LVEF and completely collapsed IVC. no pericardial effusion. lung ultrasound without effusions. 02/07: Remains sedated, orally intubated on mechanical ventilation. On propofol fentanyl and Versed drips. Transfuse 1 unit PRBCs earlier today for drop in hemoglobin. 02/08: Remains sedated, orally intubated on mechanical ventilation. On propofol fentanyl and Versed drips. Awaiting tracheostomy which is scheduled for later today. 02/09: Overnight, new onset of maculopapular rash noted. Noted discontinuation of cefepime 02/08. Received 1 dose diphenhydramine overnight. 02/10: Afebrile. Discussed with mom at bedside. Follows commands weakly bilateral upper and lower extremities. Diffuse macular papular rash improved lower extremities. Appears stable and upper thorax. On Famotidine, methylprednisolone and diphenhydramine SUBJECTIVE 02/11: Afebrile. Opens eyes to voice. Following commands weakly bilateral upper lower extremity. On propofol 50 roxanne grams per kilogram, a fentanyl drip at 250 mg of midazolam drip at 6 mg an hour due to "agitation" overnight. Will wean. Increased quetiapine to 100 twice daily. Objective Vital Signs / I&O: Vital Signs 02/10/18 14:00 02/10/18 15:00 02/10/18 16:00 Temperature 98 F Pulse Rate 117 H 114 H 117 H Respiratory Rate 23 18 25 H Blood Pressure 170/72 H 160/70 H 159/74 H Pulse Oximetry 96 96 97 02/10/18 17:00 02/10/18 17:39 02/10/18 17:40 Temperature Pulse Rate 113 H 116 H Respiratory Rate 21 25 H 26 H Blood Pressure 176/81 H Pulse Oximetry 02/10/18 18:00 02/10/18 18:18 02/10/18 19:00 Temperature Pulse Rate 119 H 118 H 104 H Respiratory Rate 23 22 17 Blood Pressure 192/79 H 170/85 H 154/65 H Pulse Oximetry 98 99 100 02/10/18 19:30 02/10/18 20:00 02/10/18 21:00 Temperature 98.6 F Pulse Rate 93 H 95 H 84 Respiratory Rate 21 19 17 Blood Pressure 135/70 Pulse Oximetry 99 98 02/10/18 21:01 02/10/18 22:00 02/10/18 23:00 Temperature Pulse Rate 83 80 91 H Respiratory Rate 17 17 16 Blood Pressure 120/56 L 113/62 Pulse Oximetry 98 95 100 02/10/18 23:01 02/11/18 00:00 02/11/18 00:10 Temperature 99.1 F Pulse Rate 93 H 104 H Respiratory Rate 16 15 19 Blood Pressure 142/82 H 142/65 H Pulse Oximetry 100 99 99 02/11/18 01:00 02/11/18 02:00 02/11/18 03:00 Temperature Pulse Rate 82 78 75 Respiratory Rate 16 18 18 Blood Pressure 116/56 L 105/51 L Pulse Oximetry 100 99 99 02/11/18 03:01 02/11/18 03:08 02/11/18 03:30 Temperature Pulse Rate 75 77 100 H Respiratory Rate 18 18 18 Blood Pressure 107/41 L 132/73 144/73 H Pulse Oximetry 99 98 98 02/11/18 03:40 02/11/18 03:43 02/11/18 04:00 Temperature 98.6 F Pulse Rate 98 H 122 H Respiratory Rate 22 22 24 Blood Pressure 152/72 H Pulse Oximetry 97 97 02/11/18 04:30 02/11/18 05:00 02/11/18 05:30 Temperature Pulse Rate 117 H 101 H 98 H Respiratory Rate 23 17 21 Blood Pressure 145/66 H 168/65 H 121/85 Pulse Oximetry 99 98 96 02/11/18 06:00 02/11/18 06:01 02/11/18 06:06 Temperature Pulse Rate 109 H 111 H 109 H Respiratory Rate 41 H 37 H 21 Blood Pressure 208/111 H 151/69 H Pulse Oximetry 100 100 100 02/11/18 07:00 02/11/18 08:00 02/11/18 09:00 Temperature 98.2 F Pulse Rate 91 H 86 91 H Respiratory Rate 17 16 11 L Blood Pressure 110/57 L 139/63 126/58 L Pulse Oximetry 100 98 98 02/11/18 10:00 02/11/18 11:00 02/11/18 11:48 Temperature Pulse Rate 92 H 101 H Respiratory Rate 11 L 11 L 11 L Blood Pressure 123/57 L 126/71 Pulse Oximetry 98 99 99 02/11/18 12:00 02/11/18 13:00 Temperature 98.6 F Pulse Rate 90 117 H Respiratory Rate 11 L 18 Blood Pressure 123/56 L 111/56 L Pulse Oximetry 98 97 Intake & Output 02/10/18 02/11/18 02/11/18 18:59 06:59 18:59 Intake Total 2019 / 2019 2400 / 2400 1265 / 1265 Output Total 950 / 950 1125 / 1125 Balance 1070 / 1070 1275 / 1275 1265 / 1265 Weight 93.5 kg Intake: IV 1600 / 1600 1800 / 1800 1265 / 1265 D5W Inj 1,000 ML @ 75 mls/hr IV 1000 / 1000 1000 / 1000 .CONT .[id number] GERMAINE Rx#:[id number] Versed Inj 50 mg In 50 ml @ 2 50 / 50 50 / 50 50 / 50 MG/HR 2 mls/hr IV.CONT TITRATE PRN Rx#:[id number] Diprivan 1000 mg/100 ml Inj 1, 200 / 200 200 / 200 200 / 200 000 mg In 100 ml @ 5 MCG/KG/MIN 2.58 mls/hr IV.CONT TITRATE PRN Rx#:[id number] Azactam Inj 1,000 MG In NS Inj 100 / 100 200 / 200 100 / 100 100 ML @ 200 mls/hr IV.SIG Q8H GERMAINE Rx#:[id number] Magnesium Sulfate 1 gm/D5W 100 200 / 200 ml Premix 100 ML @ 100 mls/hr IV.SIG Q1H GERMAINE Rx#:[id number] KCl 10 mEq Premix Inj 10 meq In 200 / 200 100 ml @ 100 mls/hr IV.SIG Q1H GERMAINE Rx#:[id number] Vancomycin Inj 1,500 MG In NS 515 / 515 Inj 500 ML @ 250 mls/hr IV.SIG Q12H GERMAINE Rx#:[id number] fentaNYL 10 mcg/mL Premix Drip 250 / 250 250 / 250 2,500 mcg In 250 ml @ 50 MCG/HR 5 mls/hr IV.SIG TITRATE PRN Rx #:[id number] Flagyl 500 MG Inj 100 ML @ 100 100 / 100 mls/hr IV.SIG Q6H [facility] Rx#: [id number] Tube Feeding 20 / 20 200 / 200 Water Bolus Amount 400 / 400 400 / 400 Output: Urine 200 / 200 Stool 25 / 25 Urine Amount (Catheter) 750 / 750 1100 / 1100 Straight 750 / 750 1100 / 1100 Other: Date of Last Bowel Movement 02/11/18 Result Diagrams: 02/11/18 04:22 02/11/18 04:22 Other Results: Microbiology 02/05/18 22:13 Blood - Peripheral Aerobic Blood Culture - Final No growth in 5 days 02/05/18 22:13 Blood - Peripheral Anaerobic Blood Culture - Final No growth in 5 days 02/05/18 22:18 Blood - Peripheral Aerobic Blood Culture - Final No growth in 5 days 02/05/18 22:18 Blood - Peripheral Anaerobic Blood Culture - Final No growth in 5 days 02/08/18 17:00 Catheterized Urine Urine Culture - Final Oliva albicans 02/06/18 08:25 Sputum - Endotracheal Gram Stain - Final 02/06/18 08:25 Sputum - Endotracheal Sputum Culture - Final Heavy growth normal respiratory pepito 02/06/18 03:00 Catheterized Urine Urine Culture - Final No growth in 48 hours 02/05/18 10:30 Stool Stool Occult Blood (ROXANNE) - Final Hemoccult negative 01/31/18 15:00 Blood - Peripheral Aerobic Blood Culture - Final Staphylococcus epidermidis 01/31/18 15:00 Blood - Peripheral Anaerobic Blood Culture - Final No growth in 5 days 01/31/18 14:45 Blood - Peripheral Aerobic Blood Culture - Final No growth in 5 days 01/31/18 14:45 Blood - Peripheral Anaerobic Blood Culture - Final No growth in 5 days 01/28/18 17:55 Blood - Peripheral Aerobic Blood Culture - Final Staphylococcus hominis-hominis 01/28/18 17:55 Blood - Peripheral Anaerobic Blood Culture - Final No growth in 5 days 01/28/18 17:50 Blood - Peripheral Aerobic Blood Culture - Final No growth in 5 days 01/28/18 17:50 Blood - Peripheral Anaerobic Blood Culture - Final No growth in 5 days 01/30/18 16:01 Catheterized Urine Urine Culture - Final No growth in 48 hours 01/28/18 13:55 Sputum - Endotracheal Gram Stain - Final 01/28/18 13:55 Sputum - Endotracheal Sputum Culture - Final Heavy growth normal respiratory pepito 01/28/18 13:49 Urine - Catheterized Urine Legionella Antigen - Final Presumptive negative for Legionella pneumophila serogroup 1 antigen in urine, suggesting no recent or recurrent infection. Infection due to Legionella cannot be ruled out since other serogroups and species may cause disease, antigen may not be present in urine in early infection, and the level of antigen present in the urine may be below the detection limit of the test. 01/28/18 13:49 Urine - Catheterized Urine Streptococcus pneumoniae Antigen ( M - Final Presumptive negative for streptococcus pneumoniae antigen, suggesting no current or recent infection. Infection due to Streptococcus pneumoniae cannot be ruled out since the antigen present in the sample may be below the detection limit of the test. 01/28/18 13:51 Nasal Aspirate Influenza Types A,B Antigen - Final Negative for FLU A and B antigen Infection due to influenza A or B cannot be ruled out since the antigen present in the sample may be below the detection limit of the test. Imaging: Abdomen/Pelvis CT 01/28/18 00:00 CONCLUSION: 1. There is a new finding of presumed pneumobilia in the left hepatic lobe. Is there a history of recent instrumentation? Portal venous gas is not entirely excluded. 2. Mild induration of the peripancreatic fat proximally suggest mild acute pancreatitis. 3. Small fat-containing umbilical hernia. 4. Pulmonary consolidation is noted as above. 5. Mild gaseous distention of the stomach. Chest CT 01/28/18 00:00 CONCLUSION: 1. Bilateral consolidation most pronounced in the left lower lobe and left upper lobe posteriorly. Chest X-Ray 01/28/18 10:15 CONCLUSION: Endotracheal tube as above. Left lung consolidation. Head CT 01/28/18 10:19 CONCLUSION: 1. Negative CT Head non contrast. . Chest X-Ray 01/29/18 09:13 CONCLUSION: Right subclavian line as above. Gallbladder Ultrasound 01/30/18 00:00 CONCLUSION: 1. Unremarkable study. Chest X-Ray 01/30/18 05:00 CONCLUSION: Stable diffuse left lung airspace consolidation with bibasilar opacities likely representing atelectasis and possible small effusions. Abdomen/Bladder Ultrasound 01/30/18 15:17 CONCLUSION: 1. Negative renal sonogram. Chest X-Ray 02/04/18 05:00 CONCLUSION: Persistent consolidation in the lower lungs, slightly improved in the left lower lung. Chest X-Ray 02/05/18 00:00 CONCLUSION: ET tube is in excellent position. Lungs still mostly clear Chest X-Ray 02/06/18 01:30 CONCLUSION: Subsegmental airspace disease improved from February 05. Endotracheal tube and nasogastric tube in good position. Head CT 02/06/18 03:50 CONCLUSION: 1. No acute intracranial abnormalities. . Abdomen X-Ray 02/08/18 00:00 CONCLUSION: NG tube placement as above. Chest X-Ray 02/08/18 14:56 CONCLUSION: 1. Consolidating infiltrate has developed in the right midlung and left base 2. Interval placement of a tracheostomy tube and removal of endotracheal tube. 3. Otherwise stable chest. Head MRI 02/09/18 00:00 CONCLUSION: 1. Normal MRI of the brain. 2. Sinusitis and mastoiditis. Objective Remarks: GENERAL: 32-year-old male currently on ventilator via tracheostomy HEENT: NCAT, pupils are equal round react about 3 meals bilaterally. Extraocular muscles are intact. Mucous membranes are moist and pink. NECK: Trachea midline. Tracheostomy site is clean dry and intact CHEST: Few coarse crackles appreciated no wheezing. CARDIOVASCULAR: RRR. S1, S2 no S4. Without murmur ABDOMEN: Soft, non-tender in all quadrants, fresh PEG tube site is clean dry and intact with no bleeding or erythema MUSCULOSKELETAL: Warm and well perfused, maculopapular rash on thorax, bilateral upper and lower extremities. 1+ bilateral upper and lower extremity peripheral edema NEUROLOGICAL: Follows commands by squeezing bilateral upper extremities including bilateral extremities weakly. Try exercise. Positive gag and cough.. Assessment and Plan - Assessment and Plan Plan: Neuro/Psych: Seizure disorder NOS History of EtOH sober 4 weeks History of anorexia/bulimia Acute metabolic encephalopathy Sedated on propofol at 50 mcg/kg/min fentanyl drip at 250 mcg an hour. Midazolam drip at 6 mg an hour Goal of RASS -2 Continue levetiracetam 500 BID (home dose) Home Quetiapine currently at 100 mg twice daily decreased. Start oxycodone liquid 5 mg every 6 hours Patient has a previous history of heavy EtOH abuse and bulimia as per mother-- continue thiamine CV: In-hospital cardiac arrest V. fib arrest Cardiogenic Shock-- resolved Severe LV systolic dysfunction- resolving. Septic shock Plan is still for cardiac perfusion study when creatinine improves Echo 01/28: severe LV systolic dysfunction, EF 20-25%. mildly depressed RV function. no valvular lesions. heparin drip on hold due to bleeding continue daily ASA 325 mg daily. Continued PO thiamine supplementation for ? beriberi Resp: Acute hypoxic respiratory failure- recurrent. Left upper/lower lobe pulmonary infiltrates-- improving Extubated 02/05, reintubated 02/05 for respiratory failure Chest post tracheostomy by Dr. Serna 02/08 Albuterol/ipratropium aerosols every 6 hours with albuterol aerosols every 2 hours as needed for dyspnea vent bundle hob elevated wean fio2 for goal spo2 > 90% PSV 03/06 at 45% GI: Elevated lipase/mild pancreatitis-- resolved Left hepatic pneumobilia history of chronic pancreatitis C. Difficile Colitis restart tube feeds today see orders after PEG tube placement. Jevity 1.5 @ 60 cc an hour per dietary recommendations IV famotidine for GI prophylaxis due to rash Docusate serum/senna 1 tablet twice daily for bowel regimen Renal/ : Acute kidney injury-- improving, slowly Nance replaced 02/04. continue for accurate i/o's. Creatinine peaked around 6, continues to improve, but slowly currently 1.27. Defer diuresis nephrology. Received 1 dose of Diuril today. Nephrology following Endo: Sliding scale insulin with Accu-Cheks to maintain euglycemia aspart insulin every 6 hours, IV dextrose D5 water at 75 cc an hour Heme: Leukocytosis--stable Macrocytic anemia- stable Monitor CBC daily. Follow trends. No indication for transfusion of blood products at this time ID: Septic shock C. Difficile Colitis Blood cultures on 01/28 and 01/31 showed coagulase negative staph hominis, likely contamination Sputum, UA and influenza all NGTD s/p zosyn for 7 days to treat pneumonia, d/c on 02/05 repeat blood cultures 02/05 no growth sent sputum culture urine culture 02/05 no growth started on PO Vanc 02/05 continue vancomycin p.o. and IV aztreonam. ID recommended continue IV vancomycin and metronidazole 02/10 Infectious disease following actively FEN: Hypernatremia Hypokalemia Replace electrolytes as clinically indicated Currently on D5 water at 75 cc an hour to discontinue 02/11 Replacing potassium and magnesium the same see orders and recheck in a.m. MSK PT evaluate and treat DERM: Diffuse macular papular rash likely secondary to cefepime Scheduled diphenhydramine 25 mg every 6 hours, famotidine 20 twice daily and 1 dose of methylprednisolone succinate 125 mg IV 1 02/09. Monitor ski Access: - 01/29 - 02/05 right SC TLC - 02/04 Nance for urinary retention Prophylaxis -GI-famotidine -DVT SCD/heparin drip on hold due to bleeding. Subcutaneous heparin Level 2 follow-up
[2018-02-11] MEDS: Heparin - SQ 10,000 UNITS/ML Vial SQ SCH (22:11)
[2018-02-12] MEDS: Propofol 1000 mg/100 ml Inj 1,000 MG/100 ML BOTTLE IV.CONT PRN ×6 (01:56→21:26)
[2018-02-12] MEDS: fentaNYL 10 mcg/mL Premix Drip 2,500 MCG/250 ML BAG IV.SIG PRN ×3 (01:57→21:26)
[2018-02-12] MEDS ORDERED: Pharmacy Ordered Lab Info OTHER SCH (02:45)
[2018-02-12] MEDS ORDERED: Magnesium Sulfate Inj 4 GM in Sodium Chlor 0.9% Inj 92 ML IV.SIG PRN (03:02)
[2018-02-12] MEDS ORDERED: Potassium Chlor 40 mEq Premix 40 MEQ/100 ML PIGGYBACK IV.SIG PRN ×2 (03:02)
[2018-02-12] MEDS ORDERED: Potassium Chloride 25 MEQ Effervescent Tablet PO PRN (03:02)
[2018-02-12] MEDS ORDERED: Potassium Phosphate Inj 30 MMOL in Sodium Chlor 0.9% Inj 250 ML IV.SIG PRN (03:02)
[2018-02-12] MEDS ORDERED: Sodium Phosphate Inj 30 MMOL in Sodium Chlor 0.9% Inj 250 ML IV.SIG PRN (03:02)
[2018-02-12] MEDS ORDERED: Potassium Phosphate 500 MG Soluble Tablet PO PRN ×2 (03:02)
[2018-02-12 04:36] LABS: Anion Gap 10 meq/L (5-15); Blood Urea Nitrogen 20 mg/dL (7-18); Calcium 8.1 mg/dL (8.5-10.1); Carbon Dioxide 21.3 meq/L (21.0-32.0); Chloride 114 meq/L (98-107); Glomerular Filtration Rate Greater Than 89 mL/min (>89); Glucose,Random 107 mg/dL (74-106); Magnesium 1.6 mg/dL (1.5-2.5); Potassium 3.5 meq/L (3.5-5.1); Sodium 145 meq/L (136-145)
[2018-02-12 04:37] LABS: Phosphorus 2.7 mg/dL (2.5-4.9)
[2018-02-12 04:39] LABS: Vancomycin,Trough 12.1 mcg/mL (5.0-10.0)
[2018-02-12] MEDS: Potassium Chlor 20 mEq Premix 20 MEQ/100 ML PIGGYBACK IV.SIG PRN ×4 (04:53→12:46)
--- NOTE | 2018-02-12 05:55 | XR ---
EXAM DATE: 02/12/2018 5:28 AM EDT AGE/SEX: 32 years / Male INDICATIONS: Shortness of breath, possible pulmonary disease. CLINICAL DATA: This is the patient's subsequent encounter. Patient reports that signs and symptoms h ave been present for 2 weeks and indicates a pain score of Nonresponsive. MEDICAL/SURGICAL HISTORY: Seizures. Pancreatitis. ETOH abuse. None. COMPARISON: [facility], CHEST 1V SINGLE AP, 02/08/2018. . FINDINGS: Stable tracheostomy with interval removal of the nasogastric catheter. Improving airspace disease in the right upper lung zone. Persistent patchy airspace disease in the left lower lung zone. Cardiomedi astinal contours are stable. Remainder of exam is unchanged. CONCLUSION: 1. Improving airspace consolidation in the right upper lung zone. 2. Persistent patchy airspace disease in the left lower lung zone. Electronically signed by: Naun Payne MD 02/12/2018 5:54 AM EDT
[2018-02-12 07:05] LABS: Baso # (Auto) 0.1 th/mm3 (0.0-0.2); Baso % (Auto) 0.7 % (0.0-2.0); Eos # (Auto) 0.3 th/mm3 (0.0-0.4); Eos % (Auto) 3.3 % (0.0-4.0); Hematocrit 22.5 % (39.0-51.0); Hemoglobin 7.6 gm/dL (13.0-17.0); Lymph # (Auto) 1.3 th/mm3 (1.0-4.8); Lymph % (Auto) 16.3 % (9.0-44.0); Mean Corpuscular HGB Conc 33.9 % (32.0-36.0); Mean Corpuscular Hemoglobin 33.8 pg (27.0-34.0); Mean Corpuscular Volume 99.6 fL (80.0-100.0); Mean Platelet Volume 8.4 fL (7.0-11.0); Mono # (Auto) 0.8 th/mm3 (0.0-0.9); Mono % (Auto) 9.1 % (0.0-8.0); Neut # (Auto) 5.9 th/mm3 (1.8-7.7); Neut % (Auto) 70.6 % (16.0-70.0); Platelet Count 498 th/mm3 (150-450); Red Blood Count 2.26 mil/mm3 (4.50-5.90); Red Cell Distribution Width 16.4 % (11.6-17.2); White Blood Count 8.3 th/mm3 (4.0-11.0)
[2018-02-12] MEDS: Oral Hygiene Kit OROPHARYNG SCH ×4 (08:43→15:41)
[2018-02-12] MEDS: QUEtiapine 25 MG Tablet NG/OG SCH (09:54)
[2018-02-12] MEDS: Aspirin 325 MG Tablet PO SCH (09:54)
[2018-02-12] MEDS: Famotidine PF Inj 20 MG/2 ML Vial IV.PUSH SCH ×2 (09:55→20:33)
[2018-02-12] MEDS: Senna/Docusate Sodium 8.6/50 MG Tablet PO SCH ×2 (09:55→20:34)
[2018-02-12] MEDS: levETIRAcetam 500 MG Tablet NG/OG SCH ×2 (09:55→20:33)
[2018-02-12] MEDS: Magnesium Oxide 400 MG Tablet PO PRN (09:55)
[2018-02-12] MEDS: Chlorhexidine 0.12% Oral Kit 15 ML UDC OROPHARYNG SCH ×3 (09:55→20:33)
[2018-02-12] MEDS: Heparin - SQ 10,000 UNITS/ML Vial SQ SCH ×2 (09:55→20:33)
[2018-02-12] MEDS: Insulin NovoLOG Aspart Correctional Sugar Inj SQ SCH ×6 (09:56→20:33)
[2018-02-12] MEDS: Carboxymethylcellulose 0.5% Opth Drops 15 ML Bottle EACH EYE SCH ×2 (09:58→20:34)
--- NOTE | 2018-02-12 10:49 | P.PNCC ---
Subjective Subjective Remarks/Hospital Course: This is a 32-year-old male. Admission 01/28/2018. Past medical history includes seizure disorder/noncompliant with levetiracetam, previous EtOH sober for 4 weeks, anorexia, gastroesophageal reflux disease and chronic pancreatitis. Patient presented to [facility] 01/28/2018 with a two-day history of nausea vomiting and diarrhea. Patient's mother/discussed at bedside stated she had just had a "stomach flu" which she has currently recovered. Mom states that the patient has become fairly dehydrated is been having some cramping of his hands. She is worried that he is getting dehydrated and his potassium might begin low. He was unable to tolerate a banana so she gave him some potassium pills p.o. which she also did not tolerate and threw up. Sober 4 weeks according to mother. Patient was noted to have a low potassium at 2.0. Creatinine of 4.0. This is in line with his previous hospitalizations for acute dehydration. Lipase was slightly elevated. Patient does have a history of seizure disorder which is not compliant with levetiracetam. ED physician was called into room because the RN believed he had a seizure. Patient was unresponsive. Mother states this was not like any seizure that she had seen. Pulses not palpable therefore CPR was initiated. Initial rhythm was V. fib. Patient received amiodarone, lidocaine, epinephrine, bicarbonate, magnesium during the 35 minute code with return of spontaneous circulation after 35 minutes. Pupils are about 9 mils bilaterally and 6. When I saw the patient patient was actively thrashing moving all 4 extremities spontaneously but not to command. Pupils are round 8 mm bilaterally and nonreactive. Brain CT revealed no acute findings. CT thorax revealed a left upper and lower lobe. CT abdomen pelvis pending at time of dictation. Likely, troponin pending. EKG revealed incomplete right bundle block with ST depression in the inferior and lateral leads. Cardiology consulted. They will evaluate after stat echocardiogram and troponins been completed. Potassium will be replaced pending [facility] 01/29: persistently in shock. following commands this AM. trop uptrended overnight and now > 40. on levo @ 10, vasopressin. bedside echo with persistence of his global severe LV systolic dysfunction. IVC dilated without respiratory variation. initially attempted therapeutic hypothermia, but became arrhythmogenic and neurologic exam improved and now following commands, so hypothermia aborted. persistently hypokalemic and hypophosphatemic this AM. in addition, remains with severe metabolic alkalosis. 01/30: Troponin trending down, continues to have severe hypokalemia and metabolic alkalosis. Creatinine continues to trend up, only produced 200 cc of urine over the past 24 hours. 01/31: Patient seen by nephrology yesterday and given bumex, urine output dramatically increased, potassium improved with aggressive repletion, pressors now off and dobutamine at 5. 02/01: No issues overnight. Patient tolerated dobutamine at 2 yesterday, discontinued this morning. Switching propofol to precedex and would like to start SBTs today. Overall improved. 02/02: Tolerated switch to precedex yesterday and was on bipap 05/06 for several hours yesterday afternoon, placed back on AC overnight to avoid respiratory fatigue. 02/03: Patient had no overnight events, tolerated SBT x 5 hours yesterday. Significantly agitated this morning during sedation vacation. 02/04: Patient still struggles with agitation when we lighten sedation. 02/05: Temp 103F this morning, no obvious source of infection. Needs to have PICC line placed today. 02/06: reintubated yesterday. overnight persistently febrile. this morning appears in distress- tachypneic on the ventilator, acidotic. potassium up to 5.8 despite medical management. bedside echo with improving LVEF and completely collapsed IVC. no pericardial effusion. lung ultrasound without effusions. 02/07: Remains sedated, orally intubated on mechanical ventilation. On propofol fentanyl and Versed drips. Transfuse 1 unit PRBCs earlier today for drop in hemoglobin. 02/08: Remains sedated, orally intubated on mechanical ventilation. On propofol fentanyl and Versed drips. Awaiting tracheostomy which is scheduled for later today. 02/09: Overnight, new onset of maculopapular rash noted. Noted discontinuation of cefepime 02/08. Received 1 dose diphenhydramine overnight. 02/10: Afebrile. Discussed with mom at bedside. Follows commands weakly bilateral upper and lower extremities. Diffuse macular papular rash improved lower extremities. Appears stable and upper thorax. On Famotidine, methylprednisolone and diphenhydramine SUBJECTIVE 02/11: Afebrile. Opens eyes to voice. Following commands weakly bilateral upper lower extremity. On propofol 50 roxanne grams per kilogram, a fentanyl drip at 250 mg of midazolam drip at 6 mg an hour due to "agitation" overnight. Will wean. Increased quetiapine to 100 twice daily. 02/12: remains on vent at this time, sedated. Follows commands all extremities weakly. RN states that she increase her sedation as the patient was tachycardic and hypotensive. I will start labetalol 200 mg twice daily and attempt sedation wean. Objective Vital Signs / I&O: Vital Signs 02/11/18 11:00 02/11/18 11:48 02/11/18 12:00 Temperature 98.6 F Pulse Rate 101 H 90 Respiratory Rate 11 L 11 L 11 L Blood Pressure 126/71 123/56 L Pulse Oximetry 99 99 98 02/11/18 13:00 02/11/18 14:00 02/11/18 15:00 Temperature Pulse Rate 117 H 97 H 93 H Respiratory Rate 18 15 18 Blood Pressure 111/56 L 125/56 L 126/68 Pulse Oximetry 97 99 99 02/11/18 16:00 02/11/18 16:09 02/11/18 17:00 Temperature 99.8 F H Pulse Rate 90 97 H Respiratory Rate 14 18 19 Blood Pressure 125/67 124/58 L Pulse Oximetry 98 98 02/11/18 18:00 02/11/18 20:00 02/11/18 20:57 Temperature 99.8 F H Pulse Rate 96 H 105 H 97 H Respiratory Rate 21 19 Blood Pressure 142/58 H Pulse Oximetry 97 02/11/18 21:00 02/11/18 22:00 02/11/18 23:20 Temperature Pulse Rate 120 H Respiratory Rate 20 22 Blood Pressure Pulse Oximetry 98 97 02/12/18 00:00 02/12/18 02:00 02/12/18 04:00 Temperature 98.4 F 99.4 F Pulse Rate 127 H 113 H 106 H Respiratory Rate 24 28 H Blood Pressure 170/65 H 164/64 H Pulse Oximetry 97 96 02/12/18 04:13 02/12/18 06:00 02/12/18 08:15 Temperature Pulse Rate 110 H 120 H Respiratory Rate 26 H 13 Blood Pressure Pulse Oximetry 97 99 02/12/18 08:17 02/12/18 08:38 Temperature Pulse Rate 106 H Respiratory Rate 13 22 Blood Pressure Pulse Oximetry Intake & Output 09/15/18 09/16/18 09/16/18 18:59 06:59 18:59 Intake Total 3686 / 3686 4788 / 4788 200 / 200 Output Total 1100 / 1100 1850 / 1850 Balance 2586 / 2586 2938 / 2938 200 / 200 Weight 94.5 kg Intake: IV 2915 / 2915 700 / 700 200 / 200 D5W Inj 1,000 ML @ 75 mls/hr IV 1000 / 1000 .CONT .[id number] GERMAINE Rx#:[id number] Versed Inj 50 mg In 50 ml @ 2 50 / 50 50 / 50 MG/HR 2 mls/hr IV.CONT TITRATE PRN Rx#:[id number] Diprivan 1000 mg/100 ml Inj 1, 400 / 400 300 / 300 100 / 100 000 mg In 100 ml @ 5 MCG/KG/MIN 2.58 mls/hr IV.CONT TITRATE PRN Rx#:[id number] Azactam Inj 1,000 MG In NS Inj 200 / 200 100 / 100 100 ML @ 200 mls/hr IV.SIG Q8H [facility] Rx#:[id number] Magnesium Sulfate 1 gm/D5W 100 200 / 200 ml Premix 100 ML @ 100 mls/hr IV.SIG Q1H [facility] Rx#:[id number] KCl 10 mEq Premix Inj 10 meq In 300 / 300 100 ml @ 100 mls/hr IV.SIG Q1H [facility] Rx#:[id number] KCl 20 mEq Premix Inj 20 meq In 100 / 100 100 ml @ 50 mls/hr IV.SIG Q2H PRN Rx#:[id number] Vancomycin Inj 1,500 MG In NS 515 / 515 Inj 500 ML @ 250 mls/hr IV.SIG Q12H [facility] Rx#:[id number] fentaNYL 10 mcg/mL Premix Drip 250 / 250 250 / 250 2,500 mcg In 250 ml @ 50 MCG/HR 5 mls/hr IV.SIG TITRATE PRN Rx #:[id number] Tube Feeding 371 / 371 503 / 503 Water Bolus Amount 400 / 400 Other 3585 / 3585 Output: Urine 100 / 100 1850 / 1850 Urine Amount (Catheter) 1000 / 1000 Straight 1000 / 1000 Other: Date of Last Bowel Movement 02/11/18 # Bowel Movements 0 Result Diagrams: 02/12/18 06:04 02/12/18 03:45 Objective Remarks: GENERAL: 32-year-old male currently on ventilator via tracheostomy HEENT: NCAT, pupils are equal round react about 3 meals bilaterally. Extraocular muscles are intact. NECK: Trachea midline. Tracheostomy site is clean dry and intact CHEST: Few coarse crackles appreciated no wheezing. CARDIOVASCULAR: RRR. S1, S2 no S4. Without murmur ABDOMEN: Soft, non-tender in all quadrants, fresh PEG tube site is clean dry and intact with no bleeding or erythema MUSCULOSKELETAL: Warm and well perfused, maculopapular rash on thorax, bilateral upper and lower extremities. 1+ bilateral upper and lower extremity peripheral edema NEUROLOGICAL: Follows commands by squeezing bilateral upper and bilateral lower extremities weakly. Positive gag and cough.. Assessment and Plan - Assessment and Plan Plan: Neuro/Psych: Seizure disorder NOS History of EtOH sober 4 weeks History of anorexia/bulimia Acute metabolic encephalopathy Sedated on propofol at 50 mcg/kg/min fentanyl drip at 250 mcg an hour, Midazolam drip at 8 mg an hour Goal of RASS -1, start weaning sedation Continue levetiracetam 500 BID (home dose) Home Quetiapine currently at 100 mg twice daily, increase to 200 twice daily. 0xycodone liquid 5 mg every 6 hours Patient has a previous history of heavy EtOH abuse and bulimia as per mother-- continue thiamine CV: In-hospital cardiac arrest V. fib arrest Cardiogenic Shock-- resolved Severe LV systolic dysfunction- resolving. Septic shock Plan is still for cardiac perfusion study when creatinine improves Echo 01/28: severe LV systolic dysfunction, EF 20-25%. mildly depressed RV function. no valvular lesions. heparin drip on hold due to bleeding continue daily ASA 325 mg daily. Continued PO thiamine supplementation for ? beriberi Resp: Acute hypoxic respiratory failure- recurrent. Left upper/lower lobe pulmonary infiltrates-- improving Extubated 02/05, reintubated 02/05 for respiratory failure Status post tracheostomy by Dr. Serna 02/08 Albuterol/ipratropium aerosols every 6 hours with albuterol aerosols every 2 hours as needed for dyspnea vent bundle, hob elevated wean fio2 for goal spo2 > 90% PSV 108 at 45%. Attempt T-piece as tolerated GI: Elevated lipase/mild pancreatitis-- resolved Left hepatic pneumobilia history of chronic pancreatitis C. Difficile Colitis restarted tube feeds today see orders after PEG tube placement. Jevity 1.5 @ 60 cc an hour per dietary recommendations IV famotidine for GI prophylaxis due to rash Docusate serum/senna 1 tablet twice daily for bowel regimen Renal/ : Acute kidney injury-- improving, slowly Nance replaced 02/04. continue for accurate i/o's. Creatinine peaked around 6, continues to improve, but slowly currently 0.86. Defer diuresis nephrology. Received 1 dose of Diuril yesterday Nephrology following Endo: Sliding scale insulin with Accu-Cheks to maintain euglycemia aspart insulin every 6 hours, IV dextrose D5 water at 75 cc an hour Heme: Leukocytosis--stable Macrocytic anemia- stable Monitor CBC daily. Follow trends. No indication for transfusion of blood products at this time ID: Septic shock-resolving C. Difficile Colitis Blood cultures on 01/28 and 01/31 showed coagulase negative staph hominis, likely contamination Sputum, UA and influenza all NGTD s/p zosyn for 7 days to treat pneumonia, d/c on 02/05 repeat blood cultures 02/05 no growth sent sputum culture urine culture 02/05 no growth,02/08 Oliva albicans started on PO Vanc 02/05 continue vancomycin p.o. and IV aztreonam. ID recommended continue vancomycin and metronidazole 02/10 Infectious disease following actively FEN: Hypernatremia Hypokalemia Replace electrolytes as clinically indicated MSK PT evaluate and treat DERM: Diffuse macular papular rash likely secondary to cefepime Scheduled diphenhydramine 25 mg every 6 hours, famotidine 20 twice daily and 1 dose of methylprednisolone succinate 125 mg IV 1 02/09. Access: - 01/29 - 02/05 right SC TLC - 02/04 Nance for urinary retention Prophylaxis -GI-famotidine -DVT SCD/heparin drip on hold due to bleeding. Subcutaneous heparin Level 2 follow-up
[2018-02-12 11:21] LABS: Bacteria,Urine Occasional /hpf; Bilirubin,Urine Negative (Negative); Clarity,Urine Clear (Clear); Color,Urine Yellow (Yellw/Straw); Glucose,Urine (UA) Negative (Negative); Leukocyte Esterase,Urine Negative (Negative); Mucus,Urine Few /lpf (Occasional); Nitrite,Urine Negative (Negative); Specific Gravity,Urine 1.011 (1.002-1.035); Squamous Epithelial Cell,Urine <1 /hpf (0-5)
[2018-02-12] MEDS: Midazolam 50 MG/50 ML Inj 50 MG/50 ML BAG IV.CONT PRN ×3 (11:21→18:32)
[2018-02-12] MEDS: QUEtiapine 100 MG Tablet NG/OG SCH (20:34)
[2018-02-12] MEDS: Labetalol 200 MG Tablet PO SCH (20:34)
[2018-02-13] MEDS: Oral Hygiene Kit OROPHARYNG SCH ×5 (00:16→23:26)
[2018-02-13] MEDS: Insulin NovoLOG Aspart Correctional Sugar Inj SQ SCH ×7 (00:16→23:48)
[2018-02-13] MEDS: Propofol 1000 mg/100 ml Inj 1,000 MG/100 ML BOTTLE IV.CONT PRN ×6 (00:18→20:03)
[2018-02-13] MEDS: Midazolam 50 MG/50 ML Inj 50 MG/50 ML BAG IV.CONT PRN ×4 (00:59→23:29)
[2018-02-13] MEDS: fentaNYL 10 mcg/mL Premix Drip 2,500 MCG/250 ML BAG IV.SIG PRN ×2 (06:05→15:47)
[2018-02-13] MEDS: Carboxymethylcellulose 0.5% Opth Drops 15 ML Bottle EACH EYE SCH ×2 (08:23→22:20)
[2018-02-13] MEDS: Labetalol 200 MG Tablet PO SCH (08:23)
[2018-02-13] MEDS: levETIRAcetam 500 MG Tablet NG/OG SCH ×2 (08:23→22:19)
[2018-02-13] MEDS: Chlorhexidine 0.12% Oral Kit 15 ML UDC OROPHARYNG SCH ×2 (08:23→22:20)
[2018-02-13] MEDS: Aspirin 325 MG Tablet PO SCH (08:23)
[2018-02-13] MEDS: Heparin - SQ 10,000 UNITS/ML Vial SQ SCH ×2 (08:23→22:19)
[2018-02-13] MEDS: Senna/Docusate Sodium 8.6/50 MG Tablet PO SCH ×2 (08:23→22:19)
[2018-02-13] MEDS: Famotidine PF Inj 20 MG/2 ML Vial IV.PUSH SCH ×2 (08:24→22:19)
[2018-02-13] MEDS: QUEtiapine 100 MG Tablet NG/OG SCH ×2 (08:24→22:18)
--- NOTE | 2018-02-13 10:38 | P.PNID ---
Subjective Remarks: Patient is sedated on the ventilator. Discussed with RN. Noted to be following commands. White blood cell count is normal. Temp spike 102.1. Diffuse maculopapular still present. Cefepime was discontinued 02/08/2018. No on Azactam. Last blood culture on 02/05/2018 as no growth. Chest x-ray shows right lung infiltrate. CT scan of the head showed no acute abnormality. Status post tracheostomy 02/08/2018. PICC placement 02/09/2018. This is a 32-year-old white male who presented to the emergency department with 2-day history of nausea, vomiting, and diarrhea. The patient ended up intubated after he went into ventricular fibrillation cardiac arrest and was resuscitated. He also was noted to have seizure activity. Antibiotics: Azactam IV Vanco IV Lines: Lines ok Past Medical History: PAST MEDICAL HISTORY: Alcohol abuse, gastroesophageal reflux disease, hernia, depression, pancreatitis, seizure disorder, left inguinal hernia repair. Allergies/Adverse Reactions: Allergies Sulfa (Sulfonamide Antibiotics) Allergy (Severe, Verified 10/11/17 07:56) hives cefepime Adverse Reaction (Intermediate, Verified 02/15/18 10:55) Rash, Generalized Objective Vital Signs 02/12/18 11:36 02/12/18 12:00 02/12/18 14:00 Temperature 99.2 F Pulse Rate 106 H 101 H Respiratory Rate 21 13 Blood Pressure 114/60 Pulse Oximetry 98 100 02/12/18 14:06 02/12/18 16:00 02/12/18 18:00 Temperature 99.2 F Pulse Rate 93 H 101 H 124 H Respiratory Rate 21 15 Blood Pressure 118/67 Pulse Oximetry 100 100 02/12/18 20:00 02/12/18 20:49 02/12/18 20:50 Temperature 99.5 F Pulse Rate 110 H 117 H Respiratory Rate 24 20 21 Blood Pressure 144/76 H Pulse Oximetry 100 100 02/12/18 22:00 02/13/18 00:00 02/13/18 00:10 Temperature 101.5 F H Pulse Rate 116 H 122 H Respiratory Rate 23 21 Blood Pressure 139/66 Pulse Oximetry 100 100 02/13/18 01:32 02/13/18 02:00 02/13/18 03:56 Temperature Pulse Rate 104 H 114 H Respiratory Rate 15 23 Blood Pressure Pulse Oximetry 02/13/18 03:58 02/13/18 04:00 02/13/18 06:00 Temperature 100.7 F H Pulse Rate 116 H 116 H Respiratory Rate 26 H 28 H Blood Pressure 144/64 H Pulse Oximetry 99 100 02/13/18 06:40 02/13/18 08:00 02/13/18 10:00 Temperature 102.1 F H Pulse Rate 109 H 109 H Respiratory Rate 19 21 Blood Pressure 132/66 Pulse Oximetry 100 Intake & Output 02/12/18 02/13/18 02/13/18 18:59 06:59 18:59 Intake Total 1893 / 1893 1549 / 1549 250 / 250 Output Total 1600 / 1600 1150 / 1150 Balance 293 / 293 399 / 399 250 / 250 Weight 94.5 kg Intake: IV 1250 / 1250 940 / 940 250 / 250 Versed Inj 50 mg In 50 ml @ 2 100 / 100 50 / 50 50 / 50 MG/HR 2 mls/hr IV.CONT TITRATE PRN Rx#:[id number] Diprivan 1000 mg/100 ml Inj 1, 300 / 300 290 / 290 100 / 100 000 mg In 100 ml @ 5 MCG/KG/MIN 2.58 mls/hr IV.CONT TITRATE PRN Rx#:[id number] Azactam Inj 1,000 MG In NS Inj 300 / 300 100 / 100 100 / 100 100 ML @ 200 mls/hr IV.SIG Q8H [facility] Rx#:[id number] KCl 20 mEq Premix Inj 20 meq In 300 / 300 100 ml @ 50 mls/hr IV.SIG Q2H PRN Rx#:[id number] fentaNYL 10 mcg/mL Premix Drip 250 / 250 500 / 500 2,500 mcg In 250 ml @ 50 MCG/HR 5 mls/hr IV.SIG TITRATE PRN Rx #:[id number] Tube Feeding 243 / 243 409 / 409 Water Bolus Amount 400 / 400 200 / 200 Output: Urine Amount (Catheter) 1600 / 1600 1150 / 1150 Indwelling Urethral Catheter 1600 / 1600 1150 / 1150 Other: Date of Last Bowel Movement 02/11/18 02/11/18 02/11/18 # Bowel Movements 0 0 02/12/18 08:30 Catheterized Urine Urine Culture - Pending 02/05/18 22:13 Blood - Peripheral Aerobic Blood Culture - Final No growth in 5 days 02/05/18 22:13 Blood - Peripheral Anaerobic Blood Culture - Final No growth in 5 days 02/05/18 22:18 Blood - Peripheral Aerobic Blood Culture - Final No growth in 5 days 02/05/18 22:18 Blood - Peripheral Anaerobic Blood Culture - Final No growth in 5 days 02/08/18 17:00 Catheterized Urine Urine Culture - Final Oliva albicans Lab - Hematology Results 02/12/18 06:04 WBC 8.3 RBC 2.26 L Hgb 7.6 L Hct 22.5 L MCV 99.6 MCH 33.8 MCHC 33.9 RDW 16.4 Plt Count 498 H MPV 8.4 Neut % (Auto) 70.6 H Lymph % (Auto) 16.3 [place] % (Auto) 9.1 H Eos % (Auto) 3.3 Baso % (Auto) 0.7 Neut # (Auto) 5.9 Lymph # (Auto) 1.3 [place] # (Auto) 0.8 Eos # (Auto) 0.3 Baso # (Auto) 0.1 WBC Differential . Differential Comment Auto diff final Lab - Chemistry Results 02/11/18 02/11/18 02/11/18 12:03 15:29 21:23 Sodium Potassium Chloride Carbon Dioxide Anion Gap BUN Creatinine Estimated GFR POC Glucose 124 H 117 H 123 H Random Glucose Calcium Phosphorus Magnesium 02/12/18 02/12/18 02/12/18 01:21 03:45 03:50 Sodium 145 Potassium 3.5 Chloride 114 H Carbon Dioxide 21.3 Anion Gap 10 BUN 20 H Creatinine 0.86 Estimated GFR Greater than 89 POC Glucose 110 114 H Random Glucose 107 H Calcium 8.1 L Phosphorus 2.7 Magnesium 1.6 02/12/18 02/12/18 02/12/18 08:40 12:22 15:38 Sodium Potassium Chloride Carbon Dioxide Anion Gap BUN Creatinine Estimated GFR POC Glucose 111 H 117 H 84 Random Glucose Calcium Phosphorus Magnesium 02/12/18 02/12/18 02/13/18 19:26 23:49 04:07 Sodium Potassium Chloride Carbon Dioxide Anion Gap BUN Creatinine Estimated GFR POC Glucose 100 103 102 Random Glucose Calcium Phosphorus Magnesium 02/13/18 07:43 Sodium Potassium Chloride Carbon Dioxide Anion Gap BUN Creatinine Estimated GFR POC Glucose 99 Random Glucose Calcium Phosphorus Magnesium Imaging: ITS Impressions Abdomen/Pelvis CT 01/28/18 00:00 CONCLUSION: 1. There is a new finding of presumed pneumobilia in the left hepatic lobe. Is there a history of recent instrumentation? Portal venous gas is not entirely excluded. 2. Mild induration of the peripancreatic fat proximally suggest mild acute pancreatitis. 3. Small fat-containing umbilical hernia. 4. Pulmonary consolidation is noted as above. 5. Mild gaseous distention of the stomach. Chest CT 01/28/18 00:00 CONCLUSION: 1. Bilateral consolidation most pronounced in the left lower lobe and left upper lobe posteriorly. Gallbladder Ultrasound 01/30/18 00:00 CONCLUSION: 1. Unremarkable study. Abdomen/Bladder Ultrasound 01/30/18 15:17 CONCLUSION: 1. Negative renal sonogram. Head CT 02/06/18 03:50 CONCLUSION: 1. No acute intracranial abnormalities. . Abdomen X-Ray 02/08/18 00:00 CONCLUSION: NG tube placement as above. Head MRI 02/09/18 00:00 CONCLUSION: 1. Normal MRI of the brain. 2. Sinusitis and mastoiditis. Chest X-Ray 02/12/18 06:00 CONCLUSION: 1. Improving airspace consolidation in the right upper lung zone. 2. Persistent patchy airspace disease in the left lower lung zone. Physical Exam: PHYSICAL EXAMINATION: GENERAL: Sedated. HEENT: Pupils are equal and reactive. No icterus. NECK: No adenopathy or swelling. LUNGS: Rhonchi at the right base. HEART: Regular S1 and S2. No murmurs heard. ABDOMEN: Bowel sounds diminished, high-pitched. Soft. No tenderness appreciated on palpation. EXTREMITIES: No clubbing, cyanosis; 2+ edema at upper extremities. SKIN: Diffuse maculopapular rash. NEUROLOGIC: Unable to fully assess. Opens eyes. PSYCHIATRIC: Unable to fully assess. Assessment and Plan - Plan IMPRESSION: 1. Possible sepsis. However cultures have been negative. Previous staph coagulase positive blood culture felt to be contamination. Subsequent cultures negative. No clear source. Temperature improved. 2. Skin rash. Likely drug related. Probably cefepime was associated. 3. Pneumonia. Suspect aspiration. 4. Status post cardiac arrest. 5. Acute respiratory failure. Patient now post tracheostomy. 6. Acute renal failure. Improved. 7. Seizure disorder. 8. Diarrhea. Questionable antibiotic associated. C. difficile toxin negative. Per mom patient has not had a history of C. difficile. 9. Oliva UTI. 10. Leukocytosis improving. RECOMMENDATIONS: 1. Stop Azactam. 2. Start Meropenem. 3. Sputum culture. 4. Start Diflucan. 5. Monitor temperature. 6. Monitor clinical status. 7. Blood culture.
[2018-02-13] MEDS: Fluconazole 100 MG Tablet PO SCH (11:59)
[2018-02-13] MEDS: Labetalol 100 MG Tablet PO SCH ×2 (13:08→22:18)
--- NOTE | 2018-02-13 13:12 | P.PNCC ---
Subjective Subjective Remarks/Hospital Course: This is a 32-year-old male. Admission 01/28/2018. Past medical history includes seizure disorder/noncompliant with levetiracetam, previous EtOH sober for 4 weeks, anorexia, gastroesophageal reflux disease and chronic pancreatitis. Patient presented to [facility] 01/28/2018 with a two-day history of nausea vomiting and diarrhea. Patient's mother/discussed at bedside stated she had just had a "stomach flu" which she has currently recovered. Mom states that the patient has become fairly dehydrated is been having some cramping of his hands. She is worried that he is getting dehydrated and his potassium might begin low. He was unable to tolerate a banana so she gave him some potassium pills p.o. which she also did not tolerate and threw up. Sober 4 weeks according to mother. Patient was noted to have a low potassium at 2.0. Creatinine of 4.0. This is in line with his previous hospitalizations for acute dehydration. Lipase was slightly elevated. Patient does have a history of seizure disorder which is not compliant with levetiracetam. ED physician was called into room because the RN believed he had a seizure. Patient was unresponsive. Mother states this was not like any seizure that she had seen. Pulses not palpable therefore CPR was initiated. Initial rhythm was V. fib. Patient received amiodarone, lidocaine, epinephrine, bicarbonate, magnesium during the 35 minute code with return of spontaneous circulation after 35 minutes. Pupils are about 9 mils bilaterally and 6. When I saw the patient patient was actively thrashing moving all 4 extremities spontaneously but not to command. Pupils are round 8 mm bilaterally and nonreactive. Brain CT revealed no acute findings. CT thorax revealed a left upper and lower lobe. CT abdomen pelvis pending at time of dictation. Likely, troponin pending. EKG revealed incomplete right bundle block with ST depression in the inferior and lateral leads. Cardiology consulted. They will evaluate after stat echocardiogram and troponins been completed. Potassium will be replaced pending [facility] 01/29: persistently in shock. following commands this AM. trop uptrended overnight and now > 40. on levo @ 10, vasopressin. bedside echo with persistence of his global severe LV systolic dysfunction. IVC dilated without respiratory variation. initially attempted therapeutic hypothermia, but became arrhythmogenic and neurologic exam improved and now following commands, so hypothermia aborted. persistently hypokalemic and hypophosphatemic this AM. in addition, remains with severe metabolic alkalosis. 01/30: Troponin trending down, continues to have severe hypokalemia and metabolic alkalosis. Creatinine continues to trend up, only produced 200 cc of urine over the past 24 hours. 01/31: Patient seen by nephrology yesterday and given bumex, urine output dramatically increased, potassium improved with aggressive repletion, pressors now off and dobutamine at 5. 02/01: No issues overnight. Patient tolerated dobutamine at 2 yesterday, discontinued this morning. Switching propofol to precedex and would like to start SBTs today. Overall improved. 02/02: Tolerated switch to precedex yesterday and was on bipap 05/06 for several hours yesterday afternoon, placed back on AC overnight to avoid respiratory fatigue. 02/03: Patient had no overnight events, tolerated SBT x 5 hours yesterday. Significantly agitated this morning during sedation vacation. 02/04: Patient still struggles with agitation when we lighten sedation. 02/05: Temp 103F this morning, no obvious source of infection. Needs to have PICC line placed today. 02/06: reintubated yesterday. overnight persistently febrile. this morning appears in distress- tachypneic on the ventilator, acidotic. potassium up to 5.8 despite medical management. bedside echo with improving LVEF and completely collapsed IVC. no pericardial effusion. lung ultrasound without effusions. 02/07: Remains sedated, orally intubated on mechanical ventilation. On propofol fentanyl and Versed drips. Transfuse 1 unit PRBCs earlier today for drop in hemoglobin. 02/08: Remains sedated, orally intubated on mechanical ventilation. On propofol fentanyl and Versed drips. Awaiting tracheostomy which is scheduled for later today. 02/09: Overnight, new onset of maculopapular rash noted. Noted discontinuation of cefepime 02/08. Received 1 dose diphenhydramine overnight. 02/10: Afebrile. Discussed with mom at bedside. Follows commands weakly bilateral upper and lower extremities. Diffuse macular papular rash improved lower extremities. Appears stable and upper thorax. On Famotidine, methylprednisolone and diphenhydramine 02/11: Afebrile. Opens eyes to voice. Following commands weakly bilateral upper lower extremity. On propofol 50 roxanne grams per kilogram, a fentanyl drip at 250 mg of midazolam drip at 6 mg an hour due to "agitation" overnight. Will wean. Increased quetiapine to 100 twice daily. 02/12: remains on vent at this time, sedated. Follows commands all extremities weakly. RN states that she increase her sedation as the patient was tachycardic and hypotensive. I will start labetalol 200 mg twice daily and attempt sedation wean. SUBJECTIVE 02/13: T-max 101.5. Remains on fentanyl drip at 250 roxanne grams an hour, midazolam drip at 7 mg an hour and fentanyl drip at 250 roxanne grams an hour. Started labetalol 200 mg twice a yesterday but now hypotensive. 2 feeds currently at 10 cc an hour. Objective Vital Signs / I&O: Vital Signs 02/12/18 14:00 02/12/18 14:06 02/12/18 16:00 Temperature 99.2 F Pulse Rate 101 H 93 H 101 H Respiratory Rate 21 15 Blood Pressure 118/67 Pulse Oximetry 100 100 02/12/18 18:00 02/12/18 20:00 02/12/18 20:49 Temperature 99.5 F Pulse Rate 124 H 110 H 117 H Respiratory Rate 24 20 Blood Pressure 144/76 H Pulse Oximetry 100 02/12/18 20:50 02/12/18 22:00 02/13/18 00:00 Temperature 101.5 F H Pulse Rate 116 H 122 H Respiratory Rate 21 23 Blood Pressure 139/66 Pulse Oximetry 100 100 02/13/18 00:10 02/13/18 01:32 02/13/18 02:00 Temperature Pulse Rate 104 H Respiratory Rate 21 15 Blood Pressure Pulse Oximetry 100 02/13/18 03:56 02/13/18 03:58 02/13/18 04:00 Temperature 100.7 F H Pulse Rate 114 H 116 H Respiratory Rate 23 26 H 28 H Blood Pressure 144/64 H Pulse Oximetry 99 100 02/13/18 06:00 02/13/18 06:40 02/13/18 08:00 Temperature 102.1 F H Pulse Rate 116 H 109 H Respiratory Rate 19 21 Blood Pressure 132/66 Pulse Oximetry 100 02/13/18 10:00 02/13/18 11:30 02/13/18 12:00 Temperature 99.2 F Pulse Rate 109 H 97 H Respiratory Rate 22 15 Blood Pressure 104/58 L Pulse Oximetry 100 100 Intake & Output 02/12/18 02/13/18 02/13/18 18:59 06:59 18:59 Intake Total 1893 / 1893 1549 / 1549 450 / 450 Output Total 1600 / 1600 1150 / 1150 Balance 293 / 293 399 / 399 450 / 450 Weight 94.5 kg Intake: IV 1250 / 1250 940 / 940 450 / 450 Versed Inj 50 mg In 50 ml @ 2 100 / 100 50 / 50 50 / 50 MG/HR 2 mls/hr IV.CONT TITRATE PRN Rx#:[id number] Diprivan 1000 mg/100 ml Inj 1, 300 / 300 290 / 290 200 / 200 000 mg In 100 ml @ 5 MCG/KG/MIN 2.58 mls/hr IV.CONT TITRATE PRN Rx#:[id number] Azactam Inj 1,000 MG In NS Inj 300 / 300 100 / 100 100 / 100 100 ML @ 200 mls/hr IV.SIG Q8H GERMAINE Rx#:[id number] Merrem Inj 1,000 MG In NS Inj 100 / 100 100 ML @ 200 mls/hr IV.SIG Q8H GERMAINE Rx#:[id number] KCl 20 mEq Premix Inj 20 meq In 300 / 300 100 ml @ 50 mls/hr IV.SIG Q2H PRN Rx#:[id number] fentaNYL 10 mcg/mL Premix Drip 250 / 250 500 / 500 2,500 mcg In 250 ml @ 50 MCG/HR 5 mls/hr IV.SIG TITRATE PRN Rx #:[id number] Tube Feeding 243 / 243 409 / 409 Water Bolus Amount 400 / 400 200 / 200 Output: Urine Amount (Catheter) 1600 / 1600 1150 / 1150 Indwelling Urethral Catheter 1600 / 1600 1150 / 1150 Other: Date of Last Bowel Movement 02/11/18 02/11/18 02/11/18 # Bowel Movements 0 0 Result Diagrams: 02/12/18 06:04 02/12/18 03:45 Other Results: Microbiology 02/05/18 22:13 Blood - Peripheral Aerobic Blood Culture - Final No growth in 5 days 02/05/18 22:13 Blood - Peripheral Anaerobic Blood Culture - Final No growth in 5 days 02/05/18 22:18 Blood - Peripheral Aerobic Blood Culture - Final No growth in 5 days 02/05/18 22:18 Blood - Peripheral Anaerobic Blood Culture - Final No growth in 5 days 02/08/18 17:00 Catheterized Urine Urine Culture - Final Oliva albicans 02/06/18 08:25 Sputum - Endotracheal Gram Stain - Final 02/06/18 08:25 Sputum - Endotracheal Sputum Culture - Final Heavy growth normal respiratory pepito 02/06/18 03:00 Catheterized Urine Urine Culture - Final No growth in 48 hours 02/05/18 10:30 Stool Stool Occult Blood (ROXANNE) - Final Hemoccult negative 01/31/18 15:00 Blood - Peripheral Aerobic Blood Culture - Final Staphylococcus epidermidis 01/31/18 15:00 Blood - Peripheral Anaerobic Blood Culture - Final No growth in 5 days 01/31/18 14:45 Blood - Peripheral Aerobic Blood Culture - Final No growth in 5 days 01/31/18 14:45 Blood - Peripheral Anaerobic Blood Culture - Final No growth in 5 days 01/28/18 17:55 Blood - Peripheral Aerobic Blood Culture - Final Staphylococcus hominis-hominis 01/28/18 17:55 Blood - Peripheral Anaerobic Blood Culture - Final No growth in 5 days 01/28/18 17:50 Blood - Peripheral Aerobic Blood Culture - Final No growth in 5 days 01/28/18 17:50 Blood - Peripheral Anaerobic Blood Culture - Final No growth in 5 days 01/30/18 16:01 Catheterized Urine Urine Culture - Final No growth in 48 hours 01/28/18 13:55 Sputum - Endotracheal Gram Stain - Final 01/28/18 13:55 Sputum - Endotracheal Sputum Culture - Final Heavy growth normal respiratory pepito 01/28/18 13:49 Urine - Catheterized Urine Legionella Antigen - Final Presumptive negative for Legionella pneumophila serogroup 1 antigen in urine, suggesting no recent or recurrent infection. Infection due to Legionella cannot be ruled out since other serogroups and species may cause disease, antigen may not be present in urine in early infection, and the level of antigen present in the urine may be below the detection limit of the test. 01/28/18 13:49 Urine - Catheterized Urine Streptococcus pneumoniae Antigen ( M - Final Presumptive negative for streptococcus pneumoniae antigen, suggesting no current or recent infection. Infection due to Streptococcus pneumoniae cannot be ruled out since the antigen present in the sample may be below the detection limit of the test. 01/28/18 13:51 Nasal Aspirate Influenza Types A,B Antigen - Final Negative for FLU A and B antigen Infection due to influenza A or B cannot be ruled out since the antigen present in the sample may be below the detection limit of the test. Imaging: Abdomen/Pelvis CT 01/28/18 00:00 CONCLUSION: 1. There is a new finding of presumed pneumobilia in the left hepatic lobe. Is there a history of recent instrumentation? Portal venous gas is not entirely excluded. 2. Mild induration of the peripancreatic fat proximally suggest mild acute pancreatitis. 3. Small fat-containing umbilical hernia. 4. Pulmonary consolidation is noted as above. 5. Mild gaseous distention of the stomach. Chest CT 01/28/18 00:00 CONCLUSION: 1. Bilateral consolidation most pronounced in the left lower lobe and left upper lobe posteriorly. Chest X-Ray 01/28/18 10:15 CONCLUSION: Endotracheal tube as above. Left lung consolidation. Head CT 01/28/18 10:19 CONCLUSION: 1. Negative CT Head non contrast. . Chest X-Ray 01/29/18 09:13 CONCLUSION: Right subclavian line as above. Gallbladder Ultrasound 01/30/18 00:00 CONCLUSION: 1. Unremarkable study. Chest X-Ray 01/30/18 05:00 CONCLUSION: Stable diffuse left lung airspace consolidation with bibasilar opacities likely representing atelectasis and possible small effusions. Abdomen/Bladder Ultrasound 01/30/18 15:17 CONCLUSION: 1. Negative renal sonogram. Chest X-Ray 02/04/18 05:00 CONCLUSION: Persistent consolidation in the lower lungs, slightly improved in the left lower lung. Chest X-Ray 02/05/18 00:00 CONCLUSION: ET tube is in excellent position. Lungs still mostly clear Chest X-Ray 02/06/18 01:30 CONCLUSION: Subsegmental airspace disease improved from February 05. Endotracheal tube and nasogastric tube in good position. Head CT 02/06/18 03:50 CONCLUSION: 1. No acute intracranial abnormalities. . Abdomen X-Ray 02/08/18 00:00 CONCLUSION: NG tube placement as above. Chest X-Ray 02/08/18 14:56 CONCLUSION: 1. Consolidating infiltrate has developed in the right midlung and left base 2. Interval placement of a tracheostomy tube and removal of endotracheal tube. 3. Otherwise stable chest. Head MRI 02/09/18 00:00 CONCLUSION: 1. Normal MRI of the brain. 2. Sinusitis and mastoiditis. Chest X-Ray 02/12/18 06:00 CONCLUSION: 1. Improving airspace consolidation in the right upper lung zone. 2. Persistent patchy airspace disease in the left lower lung zone. Objective Remarks: GENERAL: 32-year-old male currently on ventilator via tracheostomy HEENT: NCAT, pupils are equal round react about 3 meals bilaterally. Extraocular muscles are intact. NECK: Trachea midline. Tracheostomy site is clean dry and intact CHEST: Few coarse crackles appreciated no wheezing. CARDIOVASCULAR: RRR. S1, S2 no S4. Without murmur ABDOMEN: Soft, non-tender in all quadrants, fresh PEG tube site is clean dry and intact with no bleeding or erythema : Positive scrotal edema MUSCULOSKELETAL: Warm and well perfused, maculopapular rash on thorax, bilateral upper and lower extremities. 1+ bilateral upper and lower extremity peripheral edema NEUROLOGICAL: Follows commands by squeezing bilateral upper and bilateral lower extremities weakly. Positive gag and cough.. Assessment and Plan - Assessment and Plan Plan: Neuro/Psych: Seizure disorder NOS History of EtOH sober 4 weeks History of anorexia/bulimia Acute metabolic encephalopathy Sedated on propofol at 50 mcg/kg/min fentanyl drip at 250 mcg an hour, Midazolam drip at 7 mg an hour Goal of RASS -1, start weaning sedation Continue levetiracetam 500 BID (home dose) Home Quetiapine currently at 100 mg twice daily, increase to 200 twice daily. 0xycodone liquid 10 mg every 6 hours Valproic acid 250 twice daily Patient has a previous history of heavy EtOH abuse and bulimia as per mother-- continue thiamine CV: In-hospital cardiac arrest V. fib arrest Cardiogenic Shock-- resolved Severe LV systolic dysfunction- resolving. Septic shock Plan is still for cardiac perfusion study when creatinine improves Echo 01/28: severe LV systolic dysfunction, EF 20-25%. mildly depressed RV function. no valvular lesions. heparin drip on hold due to bleeding continue daily ASA 325 mg daily. Continued PO thiamine supplementation for ? beriberi We will contact Dr. Main -stated heart catheterization with creatinine normalized. Versus stress test versus outpatient follow-up. Resp: Acute hypoxic respiratory failure- recurrent. Left upper/lower lobe pulmonary infiltrates-- improving Extubated 02/05, reintubated 02/05 for respiratory failure Status post tracheostomy by Dr. Serna 02/08 Albuterol/ipratropium aerosols every 6 hours with albuterol aerosols every 2 hours as needed for dyspnea vent bundle, hob elevated wean fio2 for goal spo2 > 90% PSV 03/06 at 45%. Attempt T-piece as tolerated GI: Elevated lipase/mild pancreatitis-- resolved Left hepatic pneumobilia history of chronic pancreatitis C. Difficile Colitis restarted tube feeds today see orders after PEG tube placement. Jevity 1.5 @ 60 cc an hour per dietary recommendations IV famotidine for GI prophylaxis due to rash Docusate serum/senna 1 tablet twice daily for bowel regimen Renal/ : Acute kidney injury-- improving, slowly Nance replaced 02/04. continue for accurate i/o's. Creatinine peaked around 6, continues to improve, but slowly currently 0.86. Defer diuresis nephrology. Received 1 dose of Diuril yesterday Nephrology has signed off Endo: Sliding scale insulin with Accu-Cheks to maintain euglycemia aspart insulin every 6 hours, IV dextrose D5 water at 75 cc an hour Heme: Leukocytosis--stable Macrocytic anemia- stable Monitor CBC daily. Follow trends. No indication for transfusion of blood products at this time ID: Septic shock-resolving C. Difficile Colitis Blood cultures on 01/28 and 01/31 showed coagulase negative staph hominis, likely contamination Sputum, UA and influenza all NGTD s/p zosyn for 7 days to treat pneumonia, d/c on 02/05 repeat blood cultures 02/05 no growth sent sputum culture urine culture 02/05 no growth,02/08 Oliva albicans started on PO Vanc 02/05 continue vancomycin p.o. and IV aztreonam.= Currently on meropenem and fluconazole day #1. Pancultured again 02/13 Infectious disease following actively FEN: Hypernatremia Hypokalemia Replace electrolytes as clinically indicated MSK PT evaluate and treat DERM: Diffuse macular papular rash likely secondary to cefepime Scheduled diphenhydramine 25 mg every 6 hours, famotidine 20 twice daily and 1 dose of methylprednisolone succinate 125 mg IV 1 02/09. Discontinue diphenhydramine. Access: - 01/29 - 02/05 right SC TLC - 02/04 Nance for urinary retention Prophylaxis -GI-famotidine -DVT SCD/heparin drip on hold due to bleeding. Subcutaneous heparin Level 2 follow-up
[2018-02-13] MEDS ORDERED: Albumin Human 25% Inj 100 ML IV.SIG ONE (13:14)
[2018-02-13 14:17] LABS: Alanine Aminotransferase 14 U/L (12-78); Albumin 1.5 g/dL (3.4-5.0); Alkaline Phosphatase 147 U/L (45-117); Anion Gap 10 meq/L (5-15); Aspartate Aminotransferase 22 U/L (15-37); Blood Urea Nitrogen 17 mg/dL (7-18); Calcium 8.9 mg/dL (8.5-10.1); Carbon Dioxide 21.4 meq/L (21.0-32.0); Chloride 114 meq/L (98-107); Glomerular Filtration Rate Greater Than 89 mL/min (>89); Glucose,Random 95 mg/dL (74-106); Magnesium 1.4 mg/dL (1.5-2.5); Phosphorus 4.1 mg/dL (2.5-4.9); Potassium 4.7 meq/L (3.5-5.1); Sodium 145 meq/L (136-145); Total Protein 5.6 g/dL (6.4-8.2)
[2018-02-13] MEDS: Magnesium Sulfate Inj 2 GM in Sodium Chlor 0.9% Inj 96 ML IV.SIG PRN (18:23)
[2018-02-14] MEDS: Propofol 1000 mg/100 ml Inj 1,000 MG/100 ML BOTTLE IV.CONT PRN ×6 (00:25→21:28)
[2018-02-14] MEDS: fentaNYL 10 mcg/mL Premix Drip 2,500 MCG/250 ML BAG IV.SIG PRN ×3 (01:38→21:27)
[2018-02-14] MEDS: Midazolam 50 MG/50 ML Inj 50 MG/50 ML BAG IV.CONT PRN ×3 (04:22→17:26)
[2018-02-14] MEDS: Insulin NovoLOG Aspart Correctional Sugar Inj SQ SCH ×5 (05:07→22:01)
[2018-02-14] MEDS: Oral Hygiene Kit OROPHARYNG SCH ×3 (05:07→17:21)
--- NOTE | 2018-02-14 05:51 | XR ---
EXAM DATE: 02/14/2018 5:13 AM EDT AGE/SEX: 32 years / Male INDICATIONS: Short of breath. CLINICAL DATA: This is the patient's subsequent encounter. Patient reports that signs and symptoms h ave been present for 2 weeks and indicates a pain score of 0/10. MEDICAL/SURGICAL HISTORY: Seizures. Pancreatitis. ETOH abuse. None. COMPARISON: [facility], CHEST 1V SINGLE AP, 02/12/2018. . FINDINGS: Tracheostomy is stable and satisfactory position. Patchy bilateral infiltrates persist, not significa ntly changed. Cardiac contours are stable. No significant effusion. CONCLUSION: No significant change. Electronically signed by: Alejandro Melvin MD 02/14/2018 5:50 AM EDT
[2018-02-14 06:53] LABS: Baso # (Auto) 0.1 th/mm3 (0.0-0.2); Baso % (Auto) 0.7 % (0.0-2.0); Eos # (Auto) 0.5 th/mm3 (0.0-0.4); Lymph # (Auto) 1.7 th/mm3 (1.0-4.8); Lymph % (Auto) 17.5 % (9.0-44.0); Mean Corpuscular HGB Conc 34.8 % (32.0-36.0); Mean Corpuscular Hemoglobin 34.6 pg (27.0-34.0); Mean Corpuscular Volume 99.2 fL (80.0-100.0); Mean Platelet Volume 8.2 fL (7.0-11.0); Mono # (Auto) 0.8 th/mm3 (0.0-0.9); Mono % (Auto) 8.4 % (0.0-8.0); Neut # (Auto) 6.5 th/mm3 (1.8-7.7); Neut % (Auto) 68.4 % (16.0-70.0); Platelet Count 647 th/mm3 (150-450); Red Cell Distribution Width 16.6 % (11.6-17.2); White Blood Count 9.5 th/mm3 (4.0-11.0)
[2018-02-14 07:06] LABS: Hematocrit 20.9 % (39.0-51.0); Hemoglobin 7.3 gm/dL (13.0-17.0)
[2018-02-14 07:22] LABS: Albumin 1.6 g/dL (3.4-5.0); Anion Gap 11 meq/L (5-15); Aspartate Aminotransferase 28 U/L (15-37); Blood Urea Nitrogen 14 mg/dL (7-18); Calcium 8.5 mg/dL (8.5-10.1); Carbon Dioxide 21.4 meq/L (21.0-32.0); Chloride 111 meq/L (98-107); Glomerular Filtration Rate Greater Than 89 mL/min (>89); Glucose,Random 88 mg/dL (74-106); Magnesium 1.6 mg/dL (1.5-2.5); Potassium 4.3 meq/L (3.5-5.1); Sodium 143 meq/L (136-145)
[2018-02-14 07:27] LABS: Alanine Aminotransferase 15 U/L (12-78); Alkaline Phosphatase 130 U/L (45-117); Phosphorus 4.2 mg/dL (2.5-4.9); Total Protein 5.4 g/dL (6.4-8.2)
[2018-02-14 08:27] LABS: Eosinophils 6 % (0-4); Lymphocytes 12 % (9-44); Monocytes 4 % (0-8); Myelocytes 1 % (0-0); Promyelocyte 2 % (0-0); Toxic Granulation 1+
[2018-02-14 08:28] LABS: Platelet Morphology Normal (Normal); Stomatocytes 1+
[2018-02-14] MEDS: Famotidine PF Inj 20 MG/2 ML Vial IV.PUSH SCH (08:39)
[2018-02-14] MEDS: Heparin - SQ 10,000 UNITS/ML Vial SQ SCH ×2 (08:40→20:44)
[2018-02-14] MEDS: Senna/Docusate Sodium 8.6/50 MG Tablet PO SCH ×2 (08:41→20:46)
[2018-02-14] MEDS: Fluconazole 100 MG Tablet PO SCH (08:41)
--- NOTE | 2018-02-14 08:41 | P.PNCA ---
Subjective Interval history: on vent with trach responsive to questions per nurse Physical Exam Vital signs: Vital Signs 02/13/18 10:00 02/13/18 11:30 02/13/18 12:00 Temperature 99.2 F Pulse Rate 109 H 97 H Respiratory Rate 22 15 Blood Pressure 104/58 L Pulse Oximetry 100 100 02/13/18 14:00 02/13/18 16:00 02/13/18 16:35 Temperature 98.2 F Pulse Rate 97 H 82 96 H Respiratory Rate 28 H 24 Blood Pressure 101/61 Pulse Oximetry 99 02/13/18 16:36 02/13/18 18:00 02/13/18 20:00 Temperature 99.5 F Pulse Rate 83 83 Respiratory Rate 27 H 18 Blood Pressure 109/58 L Pulse Oximetry 100 100 02/13/18 20:32 02/13/18 22:00 02/14/18 00:00 Temperature 99.5 F Pulse Rate 82 82 91 H Respiratory Rate 21 18 Blood Pressure 103/58 L Pulse Oximetry 100 100 02/14/18 02:00 02/14/18 04:00 02/14/18 04:10 Temperature 98.9 F Pulse Rate 106 H 91 H 90 Respiratory Rate 18 20 Blood Pressure 96/60 L Pulse Oximetry 99 100 02/14/18 06:00 Temperature Pulse Rate 98 H Respiratory Rate Blood Pressure Pulse Oximetry Intake & Output 02/13/18 02/14/18 02/14/18 18:59 06:59 18:59 Intake Total 1419 / 1419 1636 / 1636 Output Total 1900 / 1900 1300 / 1300 Balance -481 / -481 336 / 336 Weight 94.5 kg Intake: IV 950 / 950 950 / 950 Versed Inj 50 mg In 50 ml @ 2 100 / 100 100 / 100 MG/HR 2 mls/hr IV.CONT TITRATE PRN Rx#:[id number] Diprivan 1000 mg/100 ml Inj 1, 300 / 300 300 / 300 000 mg In 100 ml @ 5 MCG/KG/MIN 2.58 mls/hr IV.CONT TITRATE PRN Rx#:[id number] Flexbumin 25% Inj 100 ML @ 60 100 / 100 mls/hr IV.SIG ONCE ONE Rx#: [id number] Azactam Inj 1,000 MG In NS Inj 100 / 100 100 ML @ 200 mls/hr IV.SIG Q8H GERMAINE Rx#:[id number] Magnesium Sulfate Inj 2 GM In 100 / 100 NS Inj 96 ML @ 50 mls/hr IV.SIG UNSCH PRN Rx#:[id number] Merrem Inj 1,000 MG In NS Inj 100 / 100 200 / 200 100 ML @ 200 mls/hr IV.SIG Q8H GERMAINE Rx#:[id number] fentaNYL 10 mcg/mL Premix Drip 250 / 250 250 / 250 2,500 mcg In 250 ml @ 50 MCG/HR 5 mls/hr IV.SIG TITRATE PRN Rx #:[id number] Tube Feeding 269 / 269 186 / 186 Tube Irrigant 100 / 100 Water Bolus Amount 200 / 200 400 / 400 Output: Urine 1300 / 1300 Urine Amount (Catheter) 600 / 600 1300 / 1300 Indwelling Urethral Catheter 600 / 600 1300 / 1300 Other: Date of Last Bowel Movement 02/11/18 02/14/18 # Bowel Movements 0 2 - Constitutional no acute distress - Routine Neck Exam Absent: JVD - Routine Respiratory Exam Present: CTA bilaterally - Routine Cardiovascular Exam Present: RRR - Routine Abdominal Exam Present: soft - Urinary Catheter Management Coude Cath placed during this visit: yes, but has since been removed by the nurse Reason for continuing: Decision to DC catheter Insertion date: 01/28/18 Insertion time: 13:15 Removal date: 02/03/18 Removal time: 15:15 Straight Cath placed during this visit: yes, but has since been removed by the nurse Reason for continuing: Acute urinary retention Insertion date: 02/12/18 Insertion time: 08:00 Removal date: 02/04/18 Indwelling Urethral Catheter Cath placed during this visit: yes, but has since been removed by the nurse Reason for continuing: Acute urinary retention Insertion date: 02/04/18 Insertion time: 07:00 Removal date: 02/09/18 Removal time: 14:10 Assessment and Plan - Plan Vfib arrest - cardiomyopathy + severe hypokalemia (reversible cause) elevated trop - due to hypoperfusion with arrest cardiomyopathy - stunned myocardium. repeat 2d echo limited for EF order coronary CTA when close to discharge continue medical management no further cardiac workup necessary will sign off call with questions if CTA abnormal
[2018-02-14] MEDS: Labetalol 100 MG Tablet PO SCH ×2 (08:42→20:44)
[2018-02-14] MEDS: Aspirin 325 MG Tablet PO SCH (08:42)
[2018-02-14] MEDS: levETIRAcetam 500 MG Tablet NG/OG SCH ×2 (08:43→20:44)
[2018-02-14] MEDS: Carboxymethylcellulose 0.5% Opth Drops 15 ML Bottle EACH EYE SCH ×2 (08:44→20:45)
[2018-02-14] MEDS: Chlorhexidine 0.12% Oral Kit 15 ML UDC OROPHARYNG SCH ×2 (08:45→20:46)
[2018-02-14] MEDS: QUEtiapine 100 MG Tablet NG/OG SCH ×2 (08:55→20:44)
--- NOTE | 2018-02-14 10:31 | P.PNCC ---
Subjective Subjective Remarks/Hospital Course: This is a 32-year-old male. Admission 01/28/2018. Past medical history includes seizure disorder/noncompliant with levetiracetam, previous EtOH sober for 4 weeks, anorexia, gastroesophageal reflux disease and chronic pancreatitis. Patient presented to [facility] 01/28/2018 with a two-day history of nausea vomiting and diarrhea. Patient's mother/discussed at bedside stated she had just had a "stomach flu" which she has currently recovered. Mom states that the patient has become fairly dehydrated is been having some cramping of his hands. She is worried that he is getting dehydrated and his potassium might begin low. He was unable to tolerate a banana so she gave him some potassium pills p.o. which she also did not tolerate and threw up. Sober 4 weeks according to mother. Patient was noted to have a low potassium at 2.0. Creatinine of 4.0. This is in line with his previous hospitalizations for acute dehydration. Lipase was slightly elevated. Patient does have a history of seizure disorder which is not compliant with levetiracetam. ED physician was called into room because the RN believed he had a seizure. Patient was unresponsive. Mother states this was not like any seizure that she had seen. Pulses not palpable therefore CPR was initiated. Initial rhythm was V. fib. Patient received amiodarone, lidocaine, epinephrine, bicarbonate, magnesium during the 35 minute code with return of spontaneous circulation after 35 minutes. Pupils are about 9 mils bilaterally and 6. When I saw the patient patient was actively thrashing moving all 4 extremities spontaneously but not to command. Pupils are round 8 mm bilaterally and nonreactive. Brain CT revealed no acute findings. CT thorax revealed a left upper and lower lobe. CT abdomen pelvis pending at time of dictation. Likely, troponin pending. EKG revealed incomplete right bundle block with ST depression in the inferior and lateral leads. Cardiology consulted. They will evaluate after stat echocardiogram and troponins been completed. Potassium will be replaced pending [facility] 01/29: persistently in shock. following commands this AM. trop uptrended overnight and now > 40. on levo @ 10, vasopressin. bedside echo with persistence of his global severe LV systolic dysfunction. IVC dilated without respiratory variation. initially attempted therapeutic hypothermia, but became arrhythmogenic and neurologic exam improved and now following commands, so hypothermia aborted. persistently hypokalemic and hypophosphatemic this AM. in addition, remains with severe metabolic alkalosis. 01/30: Troponin trending down, continues to have severe hypokalemia and metabolic alkalosis. Creatinine continues to trend up, only produced 200 cc of urine over the past 24 hours. 01/31: Patient seen by nephrology yesterday and given bumex, urine output dramatically increased, potassium improved with aggressive repletion, pressors now off and dobutamine at 5. 02/01: No issues overnight. Patient tolerated dobutamine at 2 yesterday, discontinued this morning. Switching propofol to precedex and would like to start SBTs today. Overall improved. 02/02: Tolerated switch to precedex yesterday and was on bipap 05/06 for several hours yesterday afternoon, placed back on AC overnight to avoid respiratory fatigue. 02/03: Patient had no overnight events, tolerated SBT x 5 hours yesterday. Significantly agitated this morning during sedation vacation. 02/04: Patient still struggles with agitation when we lighten sedation. 02/05: Temp 103F this morning, no obvious source of infection. Needs to have PICC line placed today. 02/06: reintubated yesterday. overnight persistently febrile. this morning appears in distress- tachypneic on the ventilator, acidotic. potassium up to 5.8 despite medical management. bedside echo with improving LVEF and completely collapsed IVC. no pericardial effusion. lung ultrasound without effusions. 02/07: Remains sedated, orally intubated on mechanical ventilation. On propofol fentanyl and Versed drips. Transfuse 1 unit PRBCs earlier today for drop in hemoglobin. 02/08: Remains sedated, orally intubated on mechanical ventilation. On propofol fentanyl and Versed drips. Awaiting tracheostomy which is scheduled for later today. 02/09: Overnight, new onset of maculopapular rash noted. Noted discontinuation of cefepime 02/08. Received 1 dose diphenhydramine overnight. 02/10: Afebrile. Discussed with mom at bedside. Follows commands weakly bilateral upper and lower extremities. Diffuse macular papular rash improved lower extremities. Appears stable and upper thorax. On Famotidine, methylprednisolone and diphenhydramine 02/11: Afebrile. Opens eyes to voice. Following commands weakly bilateral upper lower extremity. On propofol 50 roxanne grams per kilogram, a fentanyl drip at 250 mg of midazolam drip at 6 mg an hour due to "agitation" overnight. Will wean. Increased quetiapine to 100 twice daily. 02/12: remains on vent at this time, sedated. Follows commands all extremities weakly. RN states that she increase her sedation as the patient was tachycardic and hypotensive. I will start labetalol 200 mg twice daily and attempt sedation wean. 02/13: T-max 101.5. Remains on fentanyl drip at 250 roxanne grams an hour, midazolam drip at 7 mg an hour and fentanyl drip at 250 roxanne grams an hour. Started labetalol 200 mg twice a yesterday but now hypotensive. Tube feeds currently at 10 cc an hour. SUBJECTIVE: 02/14: T-max 100.3. Remains on fentanyl drip at 250 roxanne grams an hour, midazolam drip at 7 mg and fentanyl drip 250 mcg an hour. 2 feedings currently at [address] pulmonary antrum today per cardiology request. Will discuss some other possible transfer to [facility] today. Objective Vital Signs / I&O: Vital Signs 02/13/18 11:30 02/13/18 12:00 02/13/18 14:00 Temperature 99.2 F Pulse Rate 97 H 97 H Respiratory Rate 22 15 Blood Pressure 104/58 L Pulse Oximetry 100 100 02/13/18 16:00 02/13/18 16:35 02/13/18 16:36 Temperature 98.2 F Pulse Rate 82 96 H Respiratory Rate 28 H 24 27 H Blood Pressure 101/61 Pulse Oximetry 99 100 02/13/18 18:00 02/13/18 20:00 02/13/18 20:32 Temperature 99.5 F Pulse Rate 83 83 82 Respiratory Rate 18 21 Blood Pressure 109/58 L Pulse Oximetry 100 100 02/13/18 22:00 02/14/18 00:00 02/14/18 02:00 Temperature 99.5 F Pulse Rate 82 91 H 106 H Respiratory Rate 18 Blood Pressure 103/58 L Pulse Oximetry 100 02/14/18 04:00 02/14/18 04:10 02/14/18 06:00 Temperature 98.9 F Pulse Rate 91 H 90 98 H Respiratory Rate 18 20 Blood Pressure 96/60 L Pulse Oximetry 99 100 02/14/18 08:00 02/14/18 08:32 02/14/18 10:00 Temperature 100.3 F H Pulse Rate 111 H 107 H 100 H Respiratory Rate 25 H 26 H Blood Pressure 144/88 H Pulse Oximetry 100 100 Intake & Output 02/13/18 02/14/18 02/14/18 18:59 06:59 18:59 Intake Total 1419 / 1419 1636 / 1636 Output Total 1900 / 1900 1300 / 1300 Balance -481 / -481 336 / 336 Weight 94.5 kg Intake: IV 950 / 950 950 / 950 Versed Inj 50 mg In 50 ml @ 2 100 / 100 100 / 100 MG/HR 2 mls/hr IV.CONT TITRATE PRN Rx#:[id number] Diprivan 1000 mg/100 ml Inj 1, 300 / 300 300 / 300 000 mg In 100 ml @ 5 MCG/KG/MIN 2.58 mls/hr IV.CONT TITRATE PRN Rx#:[id number] Flexbumin 25% Inj 100 ML @ 60 100 / 100 mls/hr IV.SIG ONCE ONE Rx#: [id number] Azactam Inj 1,000 MG In NS Inj 100 / 100 100 ML @ 200 mls/hr IV.SIG Q8H GERMAINE Rx#:[id number] Magnesium Sulfate Inj 2 GM In 100 / 100 NS Inj 96 ML @ 50 mls/hr IV.SIG UNSCH PRN Rx#:[id number] Merrem Inj 1,000 MG In NS Inj 100 / 100 200 / 200 100 ML @ 200 mls/hr IV.SIG Q8H GERMAINE Rx#:[id number] fentaNYL 10 mcg/mL Premix Drip 250 / 250 250 / 250 2,500 mcg In 250 ml @ 50 MCG/HR 5 mls/hr IV.SIG TITRATE PRN Rx #:[id number] Tube Feeding 269 / 269 186 / 186 Tube Irrigant 100 / 100 Water Bolus Amount 200 / 200 400 / 400 Output: Urine 1300 / 1300 Urine Amount (Catheter) 600 / 600 1300 / 1300 Indwelling Urethral Catheter 600 / 600 1300 / 1300 Other: Date of Last Bowel Movement 02/11/18 02/14/18 02/14/18 # Bowel Movements 0 2 Result Diagrams: 02/14/18 06:26 02/14/18 06:26 Other Results: Microbiology 02/12/18 08:30 Catheterized Urine Urine Culture - Final No growth in 48 hours 02/13/18 11:35 Sputum - Endotracheal Gram Stain - Final 02/05/18 22:13 Blood - Peripheral Aerobic Blood Culture - Final No growth in 5 days 02/05/18 22:13 Blood - Peripheral Anaerobic Blood Culture - Final No growth in 5 days 02/05/18 22:18 Blood - Peripheral Aerobic Blood Culture - Final No growth in 5 days 02/05/18 22:18 Blood - Peripheral Anaerobic Blood Culture - Final No growth in 5 days 02/08/18 17:00 Catheterized Urine Urine Culture - Final Oliva albicans 02/06/18 08:25 Sputum - Endotracheal Gram Stain - Final 02/06/18 08:25 Sputum - Endotracheal Sputum Culture - Final Heavy growth normal respiratory pepito 02/06/18 03:00 Catheterized Urine Urine Culture - Final No growth in 48 hours 02/05/18 10:30 Stool Stool Occult Blood (ROXANNE) - Final Hemoccult negative 01/31/18 15:00 Blood - Peripheral Aerobic Blood Culture - Final Staphylococcus epidermidis 01/31/18 15:00 Blood - Peripheral Anaerobic Blood Culture - Final No growth in 5 days 01/31/18 14:45 Blood - Peripheral Aerobic Blood Culture - Final No growth in 5 days 01/31/18 14:45 Blood - Peripheral Anaerobic Blood Culture - Final No growth in 5 days 01/28/18 17:55 Blood - Peripheral Aerobic Blood Culture - Final Staphylococcus hominis-hominis 01/28/18 17:55 Blood - Peripheral Anaerobic Blood Culture - Final No growth in 5 days 01/28/18 17:50 Blood - Peripheral Aerobic Blood Culture - Final No growth in 5 days 01/28/18 17:50 Blood - Peripheral Anaerobic Blood Culture - Final No growth in 5 days 01/30/18 16:01 Catheterized Urine Urine Culture - Final No growth in 48 hours 01/28/18 13:55 Sputum - Endotracheal Gram Stain - Final 01/28/18 13:55 Sputum - Endotracheal Sputum Culture - Final Heavy growth normal respiratory pepito 01/28/18 13:49 Urine - Catheterized Urine Legionella Antigen - Final Presumptive negative for Legionella pneumophila serogroup 1 antigen in urine, suggesting no recent or recurrent infection. Infection due to Legionella cannot be ruled out since other serogroups and species may cause disease, antigen may not be present in urine in early infection, and the level of antigen present in the urine may be below the detection limit of the test. 01/28/18 13:49 Urine - Catheterized Urine Streptococcus pneumoniae Antigen ( M - Final Presumptive negative for streptococcus pneumoniae antigen, suggesting no current or recent infection. Infection due to Streptococcus pneumoniae cannot be ruled out since the antigen present in the sample may be below the detection limit of the test. 01/28/18 13:51 Nasal Aspirate Influenza Types A,B Antigen - Final Negative for FLU A and B antigen Infection due to influenza A or B cannot be ruled out since the antigen present in the sample may be below the detection limit of the test. Imaging: Abdomen/Pelvis CT 01/28/18 00:00 CONCLUSION: 1. There is a new finding of presumed pneumobilia in the left hepatic lobe. Is there a history of recent instrumentation? Portal venous gas is not entirely excluded. 2. Mild induration of the peripancreatic fat proximally suggest mild acute pancreatitis. 3. Small fat-containing umbilical hernia. 4. Pulmonary consolidation is noted as above. 5. Mild gaseous distention of the stomach. Chest CT 01/28/18 00:00 CONCLUSION: 1. Bilateral consolidation most pronounced in the left lower lobe and left upper lobe posteriorly. Chest X-Ray 01/28/18 10:15 CONCLUSION: Endotracheal tube as above. Left lung consolidation. Head CT 01/28/18 10:19 CONCLUSION: 1. Negative CT Head non contrast. . Chest X-Ray 01/29/18 09:13 CONCLUSION: Right subclavian line as above. Gallbladder Ultrasound 01/30/18 00:00 CONCLUSION: 1. Unremarkable study. Chest X-Ray 01/30/18 05:00 CONCLUSION: Stable diffuse left lung airspace consolidation with bibasilar opacities likely representing atelectasis and possible small effusions. Abdomen/Bladder Ultrasound 01/30/18 15:17 CONCLUSION: 1. Negative renal sonogram. Chest X-Ray 02/04/18 05:00 CONCLUSION: Persistent consolidation in the lower lungs, slightly improved in the left lower lung. Chest X-Ray 02/05/18 00:00 CONCLUSION: ET tube is in excellent position. Lungs still mostly clear Chest X-Ray 02/06/18 01:30 CONCLUSION: Subsegmental airspace disease improved from February 05. Endotracheal tube and nasogastric tube in good position. Head CT 02/06/18 03:50 CONCLUSION: 1. No acute intracranial abnormalities. . Abdomen X-Ray 02/08/18 00:00 CONCLUSION: NG tube placement as above. Chest X-Ray 02/08/18 14:56 CONCLUSION: 1. Consolidating infiltrate has developed in the right midlung and left base 2. Interval placement of a tracheostomy tube and removal of endotracheal tube. 3. Otherwise stable chest. Head MRI 02/09/18 00:00 CONCLUSION: 1. Normal MRI of the brain. 2. Sinusitis and mastoiditis. Chest X-Ray 02/12/18 06:00 CONCLUSION: 1. Improving airspace consolidation in the right upper lung zone. 2. Persistent patchy airspace disease in the left lower lung zone. Chest X-Ray 02/14/18 06:00 CONCLUSION: No significant change. Objective Remarks: GENERAL: 32-year-old male currently on ventilator via tracheostomy HEENT: NCAT, pupils are equal round react about 3 meals bilaterally. Extraocular muscles are intact. NECK: Trachea midline. Tracheostomy site is clean dry and intact CHEST: Few coarse crackles appreciated no wheezing. CARDIOVASCULAR: RRR. S1, S2 no S4. Without murmur ABDOMEN: Soft, non-tender in all quadrants, fresh PEG tube site is clean dry and intact with no bleeding or erythema : Positive scrotal edema MUSCULOSKELETAL: Warm and well perfused, maculopapular rash on thorax, bilateral upper and lower extremities. 1+ bilateral upper and lower extremity peripheral edema NEUROLOGICAL: Follows commands by squeezing bilateral upper and bilateral lower extremities weakly. Positive gag and cough.. Assessment and Plan - Assessment and Plan Plan: Neuro/Psych: Seizure disorder NOS History of EtOH sober 4 weeks History of anorexia/bulimia Acute metabolic encephalopathy Sedated on propofol at 50 mcg/kg/min fentanyl drip at 250 mcg an hour, Midazolam drip at 7 mg an hour Goal of RASS -1, start weaning sedation Continue levetiracetam 500 BID (home dose) Home Quetiapine currently at 100 mg twice daily, increase to 200 twice daily. 0xycodone liquid 10 mg every 6 hours Valproic acid 250 twice daily Patient has a previous history of heavy EtOH abuse and bulimia as per mother-- continue thiamine Continue thiamine 100 mg twice daily CV: In-hospital cardiac arrest V. fib arrest Cardiogenic Shock-- resolved Severe LV systolic dysfunction- resolving. Septic shock Plan is still for cardiac perfusion study when creatinine improves Echo 01/28: severe LV systolic dysfunction, EF 20-25%. mildly depressed RV function. no valvular lesions. heparin drip on hold due to bleeding continue daily ASA 325 mg daily. Continued PO thiamine supplementation for ? beriberi We will contact Dr. Main -stated heart catheterization with creatinine normalized. Versus stress test versus outpatient follow-up. Resp: Acute hypoxic respiratory failure- recurrent. Left upper/lower lobe pulmonary infiltrates-- improving Extubated 02/05, reintubated 02/05 for respiratory failure Status post tracheostomy by Dr. Serna 02/08 Albuterol/ipratropium aerosols every 6 hours with albuterol aerosols every 2 hours as needed for dyspnea vent bundle, hob elevated wean fio2 for goal spo2 > 90% PSV 03/06 at 45%. Attempt T-piece as tolerated. 3 hours 02/13 CT pulmonary angiogram ordered per cardiology request today. GI: Elevated lipase/mild pancreatitis-- resolved Left hepatic pneumobilia history of chronic pancreatitis C. Difficile Colitis restarted tube feeds today see orders after PEG tube placement. Jevity 1.5 @ 60 cc an hour per dietary recommendations IV famotidine for GI prophylaxis due to rash Docusate serum/senna 1 tablet twice daily for bowel regimen Renal/ : Acute kidney injury-- improving, slowly Nance replaced 02/04. continue for accurate i/o's. Creatinine peaked around 6, continues to improve, but slowly currently 0.86. Nephrology has signed off Endo: Sliding scale insulin with Accu-Cheks to maintain euglycemia aspart insulin every 6 hours, Heme: Normocytic anemia Thrombocytosis Monitor CBC daily. Follow trends. No indication for transfusion of blood products at this time ID: Septic shock-resolving C. Difficile Colitis Blood cultures on 01/28 and 01/31 showed coagulase negative staph hominis, likely contamination Sputum, UA and influenza all NGTD s/p zosyn for 7 days to treat pneumonia, d/c on 02/05 repeat blood cultures 02/05 no growth sent sputum culture urine culture 02/05 no growth,02/08 Oliva albicans started on PO Vanc 02/05-02/13 Currently on meropenem and fluconazole day #2. Pancultured again 02/13 Infectious disease following actively FEN: Replace electrolytes as clinically indicated Free water 200 cc every 6 hours MSK PT evaluate and treat DERM: Diffuse macular papular rash likely secondary to cefepime Scheduled diphenhydramine 25 mg every 6 hours, famotidine 20 twice daily and 1 dose of methylprednisolone succinate 125 mg IV 1 02/09. Discontinue diphenhydramine. Access: - 01/29 - 02/05 right SC TLC - 02/04 Nance for urinary retention Prophylaxis -GI-famotidine -DVT SCD/heparin drip on hold due to bleeding. Subcutaneous heparin Level 2 follow-up
--- NOTE | 2018-02-14 11:18 | P.PNID ---
Subjective Remarks: Patient is sedated on the ventilator. Opens eyes. Discussed with RN. Noted to be following commands. White blood cell count is normal. Afebrile Diffuse maculopapular still present but fading. Cefepime was discontinued 02/08/2018. Last blood culture on 02/05/2018 as no growth. Status post tracheostomy 02/08/2018. This is a 32-year-old white male who presented to the emergency department with 2-day history of nausea, vomiting, and diarrhea. The patient ended up intubated after he went into ventricular fibrillation cardiac arrest and was resuscitated. He also was noted to have seizure activity. Antibiotics: Meropenem Diflucan Lines: Has peripheral IV Lines ok Past Medical History: PAST MEDICAL HISTORY: Alcohol abuse, gastroesophageal reflux disease, hernia, depression, pancreatitis, seizure disorder, left inguinal hernia repair. Allergies/Adverse Reactions: Allergies Sulfa (Sulfonamide Antibiotics) Allergy (Severe, Verified 10/11/17 07:56) hives cefepime Adverse Reaction (Intermediate, Verified 02/15/18 10:55) Rash, Generalized Objective Vital Signs 02/13/18 11:30 02/13/18 12:00 02/13/18 14:00 Temperature 99.2 F Pulse Rate 97 H 97 H Respiratory Rate 22 15 Blood Pressure 104/58 L Pulse Oximetry 100 100 02/13/18 16:00 02/13/18 16:35 02/13/18 16:36 Temperature 98.2 F Pulse Rate 82 96 H Respiratory Rate 28 H 24 27 H Blood Pressure 101/61 Pulse Oximetry 99 100 02/13/18 18:00 02/13/18 20:00 02/13/18 20:32 Temperature 99.5 F Pulse Rate 83 83 82 Respiratory Rate 18 21 Blood Pressure 109/58 L Pulse Oximetry 100 100 02/13/18 22:00 02/14/18 00:00 02/14/18 02:00 Temperature 99.5 F Pulse Rate 82 91 H 106 H Respiratory Rate 18 Blood Pressure 103/58 L Pulse Oximetry 100 02/14/18 04:00 02/14/18 04:10 02/14/18 06:00 Temperature 98.9 F Pulse Rate 91 H 90 98 H Respiratory Rate 18 20 Blood Pressure 96/60 L Pulse Oximetry 99 100 02/14/18 08:00 02/14/18 08:32 02/14/18 10:00 Temperature 100.3 F H Pulse Rate 111 H 107 H 100 H Respiratory Rate 25 H 26 H Blood Pressure 144/88 H Pulse Oximetry 100 100 Intake & Output 02/13/18 02/14/18 02/14/18 18:59 06:59 18:59 Intake Total 1419 / 1419 1636 / 1636 400 / 400 Output Total 1900 / 1900 1300 / 1300 Balance -481 / -481 336 / 336 400 / 400 Weight 94.5 kg Intake: IV 950 / 950 950 / 950 400 / 400 Versed Inj 50 mg In 50 ml @ 2 100 / 100 100 / 100 50 / 50 MG/HR 2 mls/hr IV.CONT TITRATE PRN Rx#:[id number] Diprivan 1000 mg/100 ml Inj 1, 300 / 300 300 / 300 100 / 100 000 mg In 100 ml @ 5 MCG/KG/MIN 2.58 mls/hr IV.CONT TITRATE PRN Rx#:[id number] Flexbumin 25% Inj 100 ML @ 60 100 / 100 mls/hr IV.SIG ONCE ONE Rx#: [id number] Azactam Inj 1,000 MG In NS Inj 100 / 100 100 ML @ 200 mls/hr IV.SIG Q8H GERMAINE Rx#:[id number] Magnesium Sulfate Inj 2 GM In 100 / 100 NS Inj 96 ML @ 50 mls/hr IV.SIG UNSCH PRN Rx#:[id number] Merrem Inj 1,000 MG In NS Inj 100 / 100 200 / 200 100 ML @ 200 mls/hr IV.SIG Q8H GERMAINE Rx#:[id number] fentaNYL 10 mcg/mL Premix Drip 250 / 250 250 / 250 250 / 250 2,500 mcg In 250 ml @ 50 MCG/HR 5 mls/hr IV.SIG TITRATE PRN Rx #:[id number] Tube Feeding 269 / 269 186 / 186 Tube Irrigant 100 / 100 Water Bolus Amount 200 / 200 400 / 400 Output: Urine 1300 / 1300 Urine Amount (Catheter) 600 / 600 1300 / 1300 Indwelling Urethral Catheter 600 / 600 1300 / 1300 Other: Date of Last Bowel Movement 02/11/18 02/14/18 02/14/18 # Bowel Movements 0 2 02/13/18 13:16 Blood - Peripheral Aerobic Blood Culture - Preliminary No growth in 1 day 02/13/18 13:16 Blood - Peripheral Anaerobic Blood Culture - Preliminary No growth in 1 day 02/13/18 13:16 Blood - Peripheral Aerobic Blood Culture - Preliminary No growth in 1 day 02/13/18 13:16 Blood - Peripheral Anaerobic Blood Culture - Preliminary No growth in 1 day 02/12/18 08:30 Catheterized Urine Urine Culture - Final No growth in 48 hours 02/13/18 11:35 Sputum - Endotracheal Gram Stain - Final 02/13/18 11:35 Sputum - Endotracheal Sputum Culture - Pending Lab - Hematology Results 02/14/18 06:26 WBC 9.5 RBC 2.10 L Hgb 7.3 L Hct 20.9 L* MCV 99.2 MCH 34.6 H MCHC 34.8 RDW 16.6 Plt Count 647 H MPV 8.2 Prelim Diff (Auto) Slide review pending Neut % (Auto) 68.4 Lymph % (Auto) 17.5 Weber % (Auto) 8.4 H Eos % (Auto) 5.0 H Baso % (Auto) 0.7 Neut # (Auto) 6.5 Lymph # (Auto) 1.7 Weber # (Auto) 0.8 Eos # (Auto) 0.5 H Baso # (Auto) 0.1 WBC Differential Manual diff final Seg Neuts % (Manual) 72 H Band Neuts % (Manual) 3 Lymphocytes % (Manual) 12 Monocytes % (Manual) 4 Eosinophils % (Manual) 6 H Myelocytes % (Man) 1 H Promyelocytes % (Man) 2 H Abs Neuts (Manual) 7.4 Differential Comment . Toxic Granulation 1+ H Platelet Estimate High H Platelet Morphology Normal Stomatocytes 1+ H Lab - Chemistry Results 02/12/18 02/12/18 02/12/18 12:22 15:38 19:26 Sodium Potassium Chloride Carbon Dioxide Anion Gap BUN Creatinine Estimated GFR POC Glucose 117 H 84 100 Random Glucose Calcium Phosphorus Magnesium Total Bilirubin AST ALT Alkaline Phosphatase Total Protein Albumin 02/12/18 02/13/18 02/13/18 23:49 04:07 07:43 Sodium Potassium Chloride Carbon Dioxide Anion Gap BUN Creatinine Estimated GFR POC Glucose 103 102 99 Random Glucose Calcium Phosphorus Magnesium Total Bilirubin AST ALT Alkaline Phosphatase Total Protein Albumin 02/13/18 02/13/18 02/13/18 11:49 13:10 16:40 Sodium 145 Potassium 4.7 D Chloride 114 H Carbon Dioxide 21.4 Anion Gap 10 BUN 17 Creatinine 0.79 Estimated GFR Greater than 89 POC Glucose 115 H 95 Random Glucose 95 Calcium 8.9 D Phosphorus 4.1 D Magnesium 1.4 L Total Bilirubin 0.3 AST 22 ALT 14 Alkaline Phosphatase 147 H Total Protein 5.6 L Albumin 1.5 L 02/13/18 02/13/18 02/14/18 22:11 23:47 05:04 Sodium Potassium Chloride Carbon Dioxide Anion Gap BUN Creatinine Estimated GFR POC Glucose 88 112 H 120 H Random Glucose Calcium Phosphorus Magnesium Total Bilirubin AST ALT Alkaline Phosphatase Total Protein Albumin 02/14/18 02/14/18 06:26 07:41 Sodium 143 Potassium 4.3 Chloride 111 H Carbon Dioxide 21.4 Anion Gap 11 BUN 14 Creatinine 0.72 Estimated GFR Greater than 89 POC Glucose 94 Random Glucose 88 Calcium 8.5 Phosphorus 4.2 Magnesium 1.6 Total Bilirubin 0.3 AST 28 ALT 15 Alkaline Phosphatase 130 H Total Protein 5.4 L Albumin 1.6 L Imaging: ITS Impressions Abdomen/Pelvis CT 01/28/18 00:00 CONCLUSION: 1. There is a new finding of presumed pneumobilia in the left hepatic lobe. Is there a history of recent instrumentation? Portal venous gas is not entirely excluded. 2. Mild induration of the peripancreatic fat proximally suggest mild acute pancreatitis. 3. Small fat-containing umbilical hernia. 4. Pulmonary consolidation is noted as above. 5. Mild gaseous distention of the stomach. Chest CT 01/28/18 00:00 CONCLUSION: 1. Bilateral consolidation most pronounced in the left lower lobe and left upper lobe posteriorly. Gallbladder Ultrasound 01/30/18 00:00 CONCLUSION: 1. Unremarkable study. Abdomen/Bladder Ultrasound 01/30/18 15:17 CONCLUSION: 1. Negative renal sonogram. Head CT 02/06/18 03:50 CONCLUSION: 1. No acute intracranial abnormalities. . Abdomen X-Ray 02/08/18 00:00 CONCLUSION: NG tube placement as above. Head MRI 02/09/18 00:00 CONCLUSION: 1. Normal MRI of the brain. 2. Sinusitis and mastoiditis. Chest X-Ray 02/14/18 06:00 CONCLUSION: No significant change. Physical Exam: PHYSICAL EXAMINATION: GENERAL: Sedated on the ventilator. HEENT: Pupils are equal and reactive. No icterus. NECK: No adenopathy or swelling. LUNGS: No significant rhonchi. HEART: Regular S1 and S2. No murmurs heard. ABDOMEN: Bowel sounds diminished. Soft. No tenderness appreciated on palpation. EXTREMITIES: No clubbing, cyanosis; trace edema of the hands. SKIN: Diffuse maculopapular rash. NEUROLOGIC: Unable to fully assess. PSYCHIATRIC: Unable to fully assess. Assessment and Plan - Plan IMPRESSION: 1. Possible sepsis. However cultures have been negative. Previous staph coagulase positive blood culture felt to be contamination. Subsequent cultures negative. No clear source. Temperature improved. 2. Skin rash. Likely drug related. Probably cefepime was associated. 3. Pneumonia. Suspect aspiration. 4. Status post cardiac arrest. 5. Acute respiratory failure. Patient now post tracheostomy. 6. Acute renal failure. Improved. 7. Seizure disorder. 8. Diarrhea. Questionable antibiotic associated. C. difficile toxin negative. Per mom patient has not had a history of C. difficile. 9. Oliva UTI. 10. Leukocytosis improving. RECOMMENDATIONS: 1. Continue Diflucan. 2. Continue Meropenem. 3. Monitor Sputum culture. 4. Monitor temperature. 5. Monitor clinical status.
--- NOTE | 2018-02-14 13:12 | CT ---
EXAM DATE: 02/14/2018 1:03 PM EDT AGE/SEX: 32 years / Male INDICATIONS: Respiratory distress CLINICAL DATA: This is the patient's initial encounter. Patient reports that signs and symptoms have been present for 1 day and indicates a pain score of Nonresponsive. MEDICAL/SURGICAL HISTORY: Pancreatitis. Seizures. None. RADIATION DOSE: 10.69 CTDI (mGy) COMPARISON: No prior exams available for comparison. TECHNIQUE: Volumetric scanning was performed using a multi-row detector CT scanner during bolus infu ravi of 72 ml Omnipaque 350 (iohexol) nonionic water-soluble contrast as a single exam dose. The shelby a was post processed with a variety of visualization algorithms including full volume maximum intensi ty projection and sliding thin slab reformation. Using automated exposure control and adjustment of the mA and/or kV according to patient size, radiation dose was kept as low as reasonably achievable t o obtain optimal diagnostic quality images. DICOM format image data is available electronically for review and comparison. FINDINGS: Examination of the pulmonary vasculature demonstrates good filling of the main, lobar and segmental b ranches. There are no filling defects to suggest pulmonary embolism. Multiplanar reconstructions are also unremarkable. There is extensive consolidation involving the posterior segment of the right upper lobe with continu ed abnormality in the left lower lobe and lingula though this is significantly improved when compared to the prior study on the left side. Small bilateral effusions are present. Examination of the media stinum demonstrates no abnormally enlarged lymph nodes by CT criteria. No axillary or hilar abnormali ties are identified. Coronary artery calcifications are present. CONCLUSION: No evidence of pulmonary embolism. New right upper lobe pneumonia. Improving aeration on the left. Electronically signed by: Erwin Donahue MD 02/14/2018 1:11 PM EDT
--- NOTE | 2018-02-14 13:18 | ECHRPT ---
Indication: CARDIOMYOPATHY CONCLUSIONS The left ventricular systolic function is normal with an estimated ejection fraction in the range of 60-65%. Normal left ventricular size. Wall thickness is normal. No regional wall motion abnormalities are present. BP: / HR: Rhythm: MEASUREMENTS (Male / Female) Normal Values Technical Quality: 2D ECHO LV Diastolic Diameter PLAX 4.8 cm 4.2 - 5.9 / 3.9 - 5.3 cm LV Systolic Diameter PLAX 3.3 cm IVS Diastolic Thickness 0.9 cm 0.6 - 1.0 / 0.6 - 0.9 cm LVPW Diastolic Thickness 0.9 cm 0.6 - 1.0 / 0.6 - 0.9 cm LV Relative Wall Thickness 0.4 LV Ejection Fraction MOD 4C 63.4 % LV Ejection Fraction 4C AL 65.4 % DOPPLER TR Peak Velocity 219.0 cm/s TR Peak Gradient 19.2 mmHg Right Atrial Pressure 10.0 mmHg Pulmonary Artery Systolic Pressu 29.2 mmHg Right Ventricular Systolic Press 29.2 mmHg FINDINGS LEFT VENTRICLE The left ventricular systolic function is normal with an estimated ejection fraction in the range of 60-65%. Normal left ventricular size. Wall thickness is normal. No regional wall motion abnormalities are present. RIGHT VENTRICLE Normal right ventricular size and systolic function. LEFT ATRIUM The left atrial size is normal. RIGHT ATRIUM The right atrial size is normal. ATRIAL SEPTUM Normal atrial septal thickness without atrial level shunting by limited color doppler interrogation. AORTA The aortic root and proximal ascending aorta are normal in size on limited imaging. MITRAL VALVE Structurally normal mitral valve. No mitral valve stenosis or regurgitation. AORTIC VALVE Trileaflet aortic valve. No aortic valve stenosis or regurgitation. TRICUSPID VALVE Structurally normal tricuspid valve. No tricuspid valve stenosis or regurgitation. PULMONARY VALVE No pulmonary valve regurgitation or stenosis. VESSELS The inferior vena cava is normal in size. PERICARDIUM No pericardial effusion. Blue Townsend MD, FACC (Electronically Signed) Final Date:14 February 2018 13:17
[2018-02-14] MEDS ORDERED: Midazolam Inj 5 MG/ML 1 ML Vial ONE (14:05)
[2018-02-14] MEDS: Famotidine 20 MG Tablet G-TUBE SCH (20:44)
[2018-02-15] MEDS: Midazolam 50 MG/50 ML Inj 50 MG/50 ML BAG IV.CONT PRN ×5 (00:23→23:26)
[2018-02-15] MEDS: Oral Hygiene Kit OROPHARYNG SCH ×5 (00:42→23:22)
[2018-02-15] MEDS: Insulin NovoLOG Aspart Correctional Sugar Inj SQ SCH ×7 (00:42→23:22)
[2018-02-15] MEDS: Propofol 1000 mg/100 ml Inj 1,000 MG/100 ML BOTTLE IV.CONT PRN ×6 (01:37→23:25)
[2018-02-15 04:49] LABS: Baso # (Auto) 0.1 th/mm3 (0.0-0.2); Baso % (Auto) 0.7 % (0.0-2.0); Eos # (Auto) 0.6 th/mm3 (0.0-0.4); Eos % (Auto) 5.6 % (0.0-4.0); Hematocrit 21.4 % (39.0-51.0); Hemoglobin 7.4 gm/dL (13.0-17.0); Lymph # (Auto) 1.9 th/mm3 (1.0-4.8); Lymph % (Auto) 18.4 % (9.0-44.0); Mean Corpuscular HGB Conc 34.6 % (32.0-36.0); Mean Corpuscular Hemoglobin 34.3 pg (27.0-34.0); Mono % (Auto) 9.4 % (0.0-8.0); Neut # (Auto) 6.9 th/mm3 (1.8-7.7); Neut % (Auto) 65.9 % (16.0-70.0); Platelet Count 771 th/mm3 (150-450); Red Blood Count 2.16 mil/mm3 (4.50-5.90); Red Cell Distribution Width 16.4 % (11.6-17.2); White Blood Count 10.5 th/mm3 (4.0-11.0)
[2018-02-15 05:09] LABS: Anion Gap 10 meq/L (5-15); Blood Urea Nitrogen 11 mg/dL (7-18); Chloride 110 meq/L (98-107); Glomerular Filtration Rate Greater Than 89 mL/min (>89); Glucose,Random 99 mg/dL (74-106); Magnesium 1.4 mg/dL (1.5-2.5); Phosphorus 4.3 mg/dL (2.5-4.9); Potassium 4.2 meq/L (3.5-5.1); Sodium 142 meq/L (136-145)
[2018-02-15] MEDS: fentaNYL 10 mcg/mL Premix Drip 2,500 MCG/250 ML BAG IV.SIG PRN ×2 (07:23→16:40)
[2018-02-15 07:54] LABS: Eosinophils 5 % (0-4); Lymphocytes 12 % (9-44); Metamyelocytes 2 % (0-1); Monocytes 11 % (0-8); Myelocytes 1 % (0-0)
[2018-02-15] MEDS: Chlorhexidine 0.12% Oral Kit 15 ML UDC OROPHARYNG SCH ×2 (07:54→20:17)
[2018-02-15 07:55] LABS: Platelet Morphology Normal (Normal)
[2018-02-15] MEDS: Famotidine 20 MG Tablet G-TUBE SCH ×2 (08:03→20:16)
[2018-02-15] MEDS: Senna/Docusate Sodium 8.6/50 MG Tablet PO SCH ×2 (08:04→20:16)
[2018-02-15] MEDS: Aspirin 325 MG Tablet PO SCH (08:04)
[2018-02-15] MEDS: Fluconazole 100 MG Tablet PO SCH (08:04)
[2018-02-15] MEDS: QUEtiapine 100 MG Tablet NG/OG SCH ×2 (08:04→20:16)
[2018-02-15] MEDS: Labetalol 100 MG Tablet PO SCH (08:04)
[2018-02-15] MEDS: levETIRAcetam 500 MG Tablet NG/OG SCH ×2 (08:04→20:16)
[2018-02-15] MEDS: Carboxymethylcellulose 0.5% Opth Drops 15 ML Bottle EACH EYE SCH ×2 (08:04→20:16)
[2018-02-15] MEDS: Heparin - SQ 10,000 UNITS/ML Vial SQ SCH ×2 (08:05→20:17)
[2018-02-15] MEDS ORDERED: Mag Sulf 1 gm/100 ml Premix 100 ML IV.SIG ONE (10:40)
--- NOTE | 2018-02-15 10:45 | P.PNCC ---
Subjective Subjective Remarks/Hospital Course: This is a 32-year-old male. Admission 01/28/2018. Past medical history includes seizure disorder/noncompliant with levetiracetam, previous EtOH sober for 4 weeks, anorexia, gastroesophageal reflux disease and chronic pancreatitis. Patient presented to [facility] 01/28/2018 with a two-day history of nausea vomiting and diarrhea. Patient's mother/discussed at bedside stated she had just had a "stomach flu" which she has currently recovered. Mom states that the patient has become fairly dehydrated is been having some cramping of his hands. She is worried that he is getting dehydrated and his potassium might begin low. He was unable to tolerate a banana so she gave him some potassium pills p.o. which she also did not tolerate and threw up. Sober 4 weeks according to mother. Patient was noted to have a low potassium at 2.0. Creatinine of 4.0. This is in line with his previous hospitalizations for acute dehydration. Lipase was slightly elevated. Patient does have a history of seizure disorder which is not compliant with levetiracetam. ED physician was called into room because the RN believed he had a seizure. Patient was unresponsive. Mother states this was not like any seizure that she had seen. Pulses not palpable therefore CPR was initiated. Initial rhythm was V. fib. Patient received amiodarone, lidocaine, epinephrine, bicarbonate, magnesium during the 35 minute code with return of spontaneous circulation after 35 minutes. Pupils are about 9 mils bilaterally and 6. When I saw the patient patient was actively thrashing moving all 4 extremities spontaneously but not to command. Pupils are round 8 mm bilaterally and nonreactive. Brain CT revealed no acute findings. CT thorax revealed a left upper and lower lobe. CT abdomen pelvis pending at time of dictation. Likely, troponin pending. EKG revealed incomplete right bundle block with ST depression in the inferior and lateral leads. Cardiology consulted. They will evaluate after stat echocardiogram and troponins been completed. Potassium will be replaced pending [facility] 01/29: persistently in shock. following commands this AM. trop uptrended overnight and now > 40. on levo @ 10, vasopressin. bedside echo with persistence of his global severe LV systolic dysfunction. IVC dilated without respiratory variation. initially attempted therapeutic hypothermia, but became arrhythmogenic and neurologic exam improved and now following commands, so hypothermia aborted. persistently hypokalemic and hypophosphatemic this AM. in addition, remains with severe metabolic alkalosis. 01/30: Troponin trending down, continues to have severe hypokalemia and metabolic alkalosis. Creatinine continues to trend up, only produced 200 cc of urine over the past 24 hours. 01/31: Patient seen by nephrology yesterday and given bumex, urine output dramatically increased, potassium improved with aggressive repletion, pressors now off and dobutamine at 5. 02/01: No issues overnight. Patient tolerated dobutamine at 2 yesterday, discontinued this morning. Switching propofol to precedex and would like to start SBTs today. Overall improved. 02/02: Tolerated switch to precedex yesterday and was on bipap 05/06 for several hours yesterday afternoon, placed back on AC overnight to avoid respiratory fatigue. 02/03: Patient had no overnight events, tolerated SBT x 5 hours yesterday. Significantly agitated this morning during sedation vacation. 02/04: Patient still struggles with agitation when we lighten sedation. 02/05: Temp 103F this morning, no obvious source of infection. Needs to have PICC line placed today. 02/06: reintubated yesterday. overnight persistently febrile. this morning appears in distress- tachypneic on the ventilator, acidotic. potassium up to 5.8 despite medical management. bedside echo with improving LVEF and completely collapsed IVC. no pericardial effusion. lung ultrasound without effusions. 02/07: Remains sedated, orally intubated on mechanical ventilation. On propofol fentanyl and Versed drips. Transfuse 1 unit PRBCs earlier today for drop in hemoglobin. 02/08: Remains sedated, orally intubated on mechanical ventilation. On propofol fentanyl and Versed drips. Awaiting tracheostomy which is scheduled for later today. 02/09: Overnight, new onset of maculopapular rash noted. Noted discontinuation of cefepime 02/08. Received 1 dose diphenhydramine overnight. 02/10: Afebrile. Discussed with mom at bedside. Follows commands weakly bilateral upper and lower extremities. Diffuse macular papular rash improved lower extremities. Appears stable and upper thorax. On Famotidine, methylprednisolone and diphenhydramine 02/11: Afebrile. Opens eyes to voice. Following commands weakly bilateral upper lower extremity. On propofol 50 roxanne grams per kilogram, a fentanyl drip at 250 mg of midazolam drip at 6 mg an hour due to "agitation" overnight. Will wean. Increased quetiapine to 100 twice daily. 02/12: remains on vent at this time, sedated. Follows commands all extremities weakly. RN states that she increase her sedation as the patient was tachycardic and hypotensive. I will start labetalol 200 mg twice daily and attempt sedation wean. 02/13: T-max 101.5. Remains on fentanyl drip at 250 roxanne grams an hour, midazolam drip at 7 mg an hour and fentanyl drip at 250 roxanne grams an hour. Started labetalol 200 mg twice a yesterday but now hypotensive. Tube feeds currently at 10 cc an hour. 02/14: T-max 100.3. Remains on fentanyl drip at 250 roxanne grams an hour, midazolam drip at 7 mg and fentanyl drip 250 mcg an hour. 2 feedings currently at [address] pulmonary angiogram today per cardiology request. Will discuss some other possible transfer to select hospital today. SUBJECTIVE: 02/15: T-max 100.3. Tube feedings currently at [address] pulmonary angiogram revealed right upper lobe infiltrate/new. No pulmonary embolism. Opens eyes to voice. Objective Vital Signs / I&O: Vital Signs 02/14/18 12:00 02/14/18 12:45 02/14/18 13:17 Temperature 100.0 F H Pulse Rate 109 H Respiratory Rate 15 23 Blood Pressure 107/64 Pulse Oximetry 100 100 100 02/14/18 14:00 02/14/18 16:00 02/14/18 16:03 Temperature 99.4 F Pulse Rate 93 H 90 90 Respiratory Rate 18 18 Blood Pressure 95/57 L Pulse Oximetry 99 99 02/14/18 18:00 02/14/18 20:00 02/14/18 20:16 Temperature 99.9 F H Pulse Rate 105 H 95 H 101 H Respiratory Rate 18 20 Blood Pressure 144/79 H Pulse Oximetry 100 02/14/18 22:00 02/15/18 00:00 02/15/18 00:08 Temperature 98.8 F Pulse Rate 102 H 97 H Respiratory Rate 23 20 Blood Pressure 96/63 L Pulse Oximetry 100 02/15/18 04:00 02/15/18 04:06 02/15/18 06:00 Temperature 99.1 F Pulse Rate 101 H 100 H 104 H Respiratory Rate 18 20 Blood Pressure 101/56 L Pulse Oximetry 100 02/15/18 07:43 02/15/18 09:39 Temperature Pulse Rate 97 H Respiratory Rate 27 H 18 Blood Pressure Pulse Oximetry 100 Intake & Output 02/14/18 02/15/18 02/15/18 18:59 06:59 18:59 Intake Total 1323 / 1323 1567 / 1567 400 / 400 Output Total 900 / 900 1000 / 1000 Balance 423 / 423 567 / 567 400 / 400 Weight 99.1 kg Intake: IV 750 / 750 800 / 800 400 / 400 Versed Inj 50 mg In 50 ml @ 2 100 / 100 50 / 50 50 / 50 MG/HR 2 mls/hr IV.CONT TITRATE PRN Rx#:[id number] Diprivan 1000 mg/100 ml Inj 1, 300 / 300 300 / 300 100 / 100 000 mg In 100 ml @ 5 MCG/KG/MIN 2.58 mls/hr IV.CONT TITRATE PRN Rx#:[id number] Merrem Inj 1,000 MG In NS Inj 100 / 100 200 / 200 100 ML @ 200 mls/hr IV.SIG Q8H GERMAINE Rx#:[id number] fentaNYL 10 mcg/mL Premix Drip 250 / 250 250 / 250 250 / 250 2,500 mcg In 250 ml @ 50 MCG/HR 5 mls/hr IV.SIG TITRATE PRN Rx #:[id number] Tube Feeding 173 / 173 317 / 317 Tube Irrigant 50 / 50 Water Bolus Amount 400 / 400 400 / 400 Output: Urine Amount (Catheter) 900 / 900 1000 / 1000 Indwelling Urethral Catheter 900 / 900 1000 / 1000 Other: Date of Last Bowel Movement 02/14/18 02/14/18 02/14/18 # Bowel Movements 2 Result Diagrams: 02/15/18 04:28 02/15/18 04:28 Other Results: Microbiology 02/13/18 11:35 Sputum - Endotracheal Gram Stain - Final 02/13/18 11:35 Sputum - Endotracheal Sputum Culture - Preliminary Moderate growth normal respiratory pepito at 24 hours 02/13/18 13:16 Blood - Peripheral Aerobic Blood Culture - Preliminary No growth in 1 day 02/13/18 13:16 Blood - Peripheral Anaerobic Blood Culture - Preliminary No growth in 1 day 02/13/18 13:16 Blood - Peripheral Aerobic Blood Culture - Preliminary No growth in 1 day 02/13/18 13:16 Blood - Peripheral Anaerobic Blood Culture - Preliminary No growth in 1 day 02/12/18 08:30 Catheterized Urine Urine Culture - Final No growth in 48 hours 02/05/18 22:13 Blood - Peripheral Aerobic Blood Culture - Final No growth in 5 days 02/05/18 22:13 Blood - Peripheral Anaerobic Blood Culture - Final No growth in 5 days 02/05/18 22:18 Blood - Peripheral Aerobic Blood Culture - Final No growth in 5 days 02/05/18 22:18 Blood - Peripheral Anaerobic Blood Culture - Final No growth in 5 days 02/08/18 17:00 Catheterized Urine Urine Culture - Final Oliva albicans 02/06/18 08:25 Sputum - Endotracheal Gram Stain - Final 02/06/18 08:25 Sputum - Endotracheal Sputum Culture - Final Heavy growth normal respiratory pepito 02/06/18 03:00 Catheterized Urine Urine Culture - Final No growth in 48 hours 02/05/18 10:30 Stool Stool Occult Blood (ROXANNE) - Final Hemoccult negative 01/31/18 15:00 Blood - Peripheral Aerobic Blood Culture - Final Staphylococcus epidermidis 01/31/18 15:00 Blood - Peripheral Anaerobic Blood Culture - Final No growth in 5 days 01/31/18 14:45 Blood - Peripheral Aerobic Blood Culture - Final No growth in 5 days 01/31/18 14:45 Blood - Peripheral Anaerobic Blood Culture - Final No growth in 5 days 01/28/18 17:55 Blood - Peripheral Aerobic Blood Culture - Final Staphylococcus hominis-hominis 01/28/18 17:55 Blood - Peripheral Anaerobic Blood Culture - Final No growth in 5 days 01/28/18 17:50 Blood - Peripheral Aerobic Blood Culture - Final No growth in 5 days 01/28/18 17:50 Blood - Peripheral Anaerobic Blood Culture - Final No growth in 5 days 01/30/18 16:01 Catheterized Urine Urine Culture - Final No growth in 48 hours 01/28/18 13:55 Sputum - Endotracheal Gram Stain - Final 01/28/18 13:55 Sputum - Endotracheal Sputum Culture - Final Heavy growth normal respiratory pepito 01/28/18 13:49 Urine - Catheterized Urine Legionella Antigen - Final Presumptive negative for Legionella pneumophila serogroup 1 antigen in urine, suggesting no recent or recurrent infection. Infection due to Legionella cannot be ruled out since other serogroups and species may cause disease, antigen may not be present in urine in early infection, and the level of antigen present in the urine may be below the detection limit of the test. 01/28/18 13:49 Urine - Catheterized Urine Streptococcus pneumoniae Antigen ( M - Final Presumptive negative for streptococcus pneumoniae antigen, suggesting no current or recent infection. Infection due to Streptococcus pneumoniae cannot be ruled out since the antigen present in the sample may be below the detection limit of the test. 01/28/18 13:51 Nasal Aspirate Influenza Types A,B Antigen - Final Negative for FLU A and B antigen Infection due to influenza A or B cannot be ruled out since the antigen present in the sample may be below the detection limit of the test. Imaging: Abdomen/Pelvis CT 01/28/18 00:00 CONCLUSION: 1. There is a new finding of presumed pneumobilia in the left hepatic lobe. Is there a history of recent instrumentation? Portal venous gas is not entirely excluded. 2. Mild induration of the peripancreatic fat proximally suggest mild acute pancreatitis. 3. Small fat-containing umbilical hernia. 4. Pulmonary consolidation is noted as above. 5. Mild gaseous distention of the stomach. Chest CT 01/28/18 00:00 CONCLUSION: 1. Bilateral consolidation most pronounced in the left lower lobe and left upper lobe posteriorly. Chest X-Ray 01/28/18 10:15 CONCLUSION: Endotracheal tube as above. Left lung consolidation. Head CT 01/28/18 10:19 CONCLUSION: 1. Negative CT Head non contrast. . Chest X-Ray 01/29/18 09:13 CONCLUSION: Right subclavian line as above. Gallbladder Ultrasound 01/30/18 00:00 CONCLUSION: 1. Unremarkable study. Chest X-Ray 01/30/18 05:00 CONCLUSION: Stable diffuse left lung airspace consolidation with bibasilar opacities likely representing atelectasis and possible small effusions. Abdomen/Bladder Ultrasound 01/30/18 15:17 CONCLUSION: 1. Negative renal sonogram. Chest X-Ray 02/04/18 05:00 CONCLUSION: Persistent consolidation in the lower lungs, slightly improved in the left lower lung. Chest X-Ray 02/05/18 00:00 CONCLUSION: ET tube is in excellent position. Lungs still mostly clear Chest X-Ray 02/06/18 01:30 CONCLUSION: Subsegmental airspace disease improved from February 05. Endotracheal tube and nasogastric tube in good position. Head CT 02/06/18 03:50 CONCLUSION: 1. No acute intracranial abnormalities. . Abdomen X-Ray 02/08/18 00:00 CONCLUSION: NG tube placement as above. Chest X-Ray 02/08/18 14:56 CONCLUSION: 1. Consolidating infiltrate has developed in the right midlung and left base 2. Interval placement of a tracheostomy tube and removal of endotracheal tube. 3. Otherwise stable chest. Head MRI 02/09/18 00:00 CONCLUSION: 1. Normal MRI of the brain. 2. Sinusitis and mastoiditis. Chest X-Ray 02/12/18 06:00 CONCLUSION: 1. Improving airspace consolidation in the right upper lung zone. 2. Persistent patchy airspace disease in the left lower lung zone. Chest CTA 02/14/18 00:00 CONCLUSION: No evidence of pulmonary embolism. New right upper lobe pneumonia. Improving aeration on the left. Chest X-Ray 02/14/18 06:00 CONCLUSION: No significant change. Objective Remarks: GENERAL: 32-year-old male currently on ventilator via tracheostomy HEENT: NCAT, pupils are equal round react about 3 meals bilaterally. Extraocular muscles are intact. NECK: Trachea midline. Tracheostomy site is clean dry and intact CHEST: Few coarse crackles appreciated no wheezing. CARDIOVASCULAR: RRR. S1, S2 no S4. Without murmur ABDOMEN: Soft, non-tender in all quadrants, fresh PEG tube site is clean dry and intact with no bleeding or erythema : Positive scrotal edema MUSCULOSKELETAL: Warm and well perfused, maculopapular rash on thorax, bilateral upper and lower extremities. 1+ bilateral upper and lower extremity peripheral edema NEUROLOGICAL: Follows commands by squeezing bilateral upper and bilateral lower extremities weakly. Positive gag and cough.. Assessment and Plan - Assessment and Plan Plan: Neuro/Psych: Seizure disorder NOS History of EtOH sober 4 weeks History of anorexia/bulimia Acute metabolic encephalopathy Sedated on propofol at 50 mcg/kg/min fentanyl drip at 250 mcg an hour, Midazolam drip at 7 mg an hour Goal of RASS -1, start weaning sedation Continue levetiracetam 500 BID (home dose) Home Quetiapine currently at 100 mg twice daily, increase to 200 twice daily. 0xycodone liquid 10 mg every 6 hours Valproic acid 250 milligrams twice daily Patient has a previous history of heavy EtOH abuse and bulimia as per mother-- continue thiamine Continue thiamine 100 mg twice daily CV: In-hospital cardiac arrest V. fib arrest Cardiogenic Shock-- resolved Severe LV systolic dysfunction- resolving. Septic shock Evaluated by Dr. Townsend. No further cardiac workup planned at this time. Echo 01/28: severe LV systolic dysfunction, EF 20-25%. mildly depressed RV function. no valvular lesions. continue daily ASA 325 mg daily. Continued PO thiamine supplementation for ? beriberi Echocardiogram 02/14 - the left ventricular systolic function is normal with an estimated ejection fraction in the range of 60-65%. Normal left ventricular size. Wall thickness is normal. No regional wall motion abnormalities are present. . Resp: Acute hypoxic respiratory failure- recurrent. Left upper/lower lobe pulmonary infiltrates-- improving New right upper lobe infiltrate Extubated 02/05, reintubated 02/05 for respiratory failure Status post tracheostomy by Dr. Serna 02/08 Albuterol/ipratropium aerosols every 6 hours with albuterol aerosols every 2 hours as needed for dyspnea vent bundle, hob elevated wean fio2 for goal spo2 > 90% PSV 03/06 at 45%. Attempt T-piece as tolerated. 3 hours 02/13 CT pulmonary angiogram revealed right upper limits. No pulmonary embolus. GI: Elevated lipase/mild pancreatitis-- resolved Left hepatic pneumobilia history of chronic pancreatitis C. Difficile Colitis restarted tube feeds today see orders after PEG tube placement. Jevity 1.5 @ 60 cc an hour per dietary recommendations currently at 30 cc an hour By tube famotidine for GI prophylaxis due to rash Docusate serum/senna 1 tablet twice daily for bowel regimen Renal/ : Acute kidney injury-- i resolved Nance replaced 02/04. continue for accurate i/o's. Creatinine peaked around 6, continues to improve, but slowly currently 0.86. Nephrology has signed off Endo: Sliding scale insulin with Accu-Cheks to maintain euglycemia aspart insulin every 6 hours, Heme: Normocytic anemia Thrombocytosis Monitor CBC daily. Follow trends. No indication for transfusion of blood products at this time ID: Septic shock-resolving C. Difficile Colitis Blood cultures on 01/28 and 01/31 showed coagulase negative staph hominis, likely contamination Sputum, UA and influenza all NGTD s/p zosyn for 7 days to treat pneumonia, d/c on 02/05 repeat blood cultures 02/05 no growth sent sputum culture urine culture 02/05 no growth,02/08 Oliva albicans started on PO Vanc 02/05-02/13 Currently on meropenem and fluconazole day #2. Pancultured again 02/13 Infectious disease following actively FEN: Hypomagnesia Replace electrolytes as clinically indicated. 3 g mag sulfate IV 1 now. Free water 200 cc every 6 hours MSK PT evaluate and treat DERM: Diffuse macular papular rash likely secondary to cefepime resolving Scheduled diphenhydramine 25 mg every 6 hours, famotidine 20 twice daily and 1 dose of methylprednisolone succinate 125 mg IV 1 02/09. Discontinue diphenhydramine. Access: - 01/29 - 02/05 right SC TLC - 02/04 Nance for urinary retention Prophylaxis -GI-famotidine -DVT SCD/heparin drip on hold due to bleeding. Subcutaneous heparin Level 2 follow-up
[2018-02-15] MEDS: Magnesium Sulfate Inj 2 GM in Sodium Chlor 0.9% Inj 96 ML IV.SIG PRN (12:21)
--- NOTE | 2018-02-15 13:03 | P.PNID ---
Subjective Remarks: Patient is sedated on the ventilator. He had to be sedated because of agitation. Discussed with RN. Noted to be following commands. White blood cell count is normal. Temperature spiking. Diffuse maculopapular fading. He has loose stools. Microbiology confirms that the stool PCR for C. difficile was positive and that EMR documentation Is showing up in a different location than the 027 tox epid result. Cefepime was discontinued 02/08/2018. Last blood culture on 02/05/2018 as no growth. Status post tracheostomy 02/08/2018. This is a 32-year-old white male who presented to the emergency department with 2-day history of nausea, vomiting, and diarrhea. The patient ended up intubated after he went into ventricular fibrillation cardiac arrest and was resuscitated. He also was noted to have seizure activity. Antibiotics: Meropenem Diflucan Lines: Has peripheral IV Lines ok Past Medical History: PAST MEDICAL HISTORY: Alcohol abuse, gastroesophageal reflux disease, hernia, depression, pancreatitis, seizure disorder, left inguinal hernia repair. Allergies/Adverse Reactions: Allergies Sulfa (Sulfonamide Antibiotics) Allergy (Severe, Verified 10/11/17 07:56) hives cefepime Adverse Reaction (Intermediate, Verified 02/15/18 10:55) Rash, Generalized Objective Vital Signs 02/14/18 13:17 02/14/18 14:00 02/14/18 16:00 Temperature 99.4 F Pulse Rate 93 H 90 Respiratory Rate 23 18 Blood Pressure 95/57 L Pulse Oximetry 100 99 02/14/18 16:03 02/14/18 18:00 02/14/18 20:00 Temperature 99.9 F H Pulse Rate 90 105 H 95 H Respiratory Rate 18 18 Blood Pressure 144/79 H Pulse Oximetry 99 02/14/18 20:16 02/14/18 22:00 02/15/18 00:00 Temperature 98.8 F Pulse Rate 101 H 102 H 97 H Respiratory Rate 20 23 Blood Pressure 96/63 L Pulse Oximetry 100 02/15/18 00:08 02/15/18 04:00 02/15/18 04:06 Temperature 99.1 F Pulse Rate 101 H 100 H Respiratory Rate 20 18 20 Blood Pressure 101/56 L Pulse Oximetry 100 100 02/15/18 06:00 02/15/18 07:43 02/15/18 08:00 Temperature 101.6 F H Pulse Rate 104 H 117 H Respiratory Rate 27 H Blood Pressure 147/74 H Pulse Oximetry 100 100 02/15/18 09:39 02/15/18 10:00 02/15/18 12:42 Temperature Pulse Rate 97 H 92 H Respiratory Rate 18 18 Blood Pressure Pulse Oximetry 100 Intake & Output 02/14/18 02/15/18 02/15/18 18:59 06:59 18:59 Intake Total 1323 / 1323 1567 / 1567 650 / 650 Output Total 900 / 900 1000 / 1000 Balance 423 / 423 567 / 567 650 / 650 Weight 99.1 kg Intake: IV 750 / 750 800 / 800 650 / 650 Versed Inj 50 mg In 50 ml @ 2 100 / 100 50 / 50 100 / 100 MG/HR 2 mls/hr IV.CONT TITRATE PRN Rx#:[id number] Diprivan 1000 mg/100 ml Inj 1, 300 / 300 300 / 300 200 / 200 000 mg In 100 ml @ 5 MCG/KG/MIN 2.58 mls/hr IV.CONT TITRATE PRN Rx#:[id number] Magnesium Sulfate 1 gm/D5W 100 100 / 100 ml Premix 100 ML @ 100 mls/hr IV.SIG ONCE ONE Rx#:[id number] Merrem Inj 1,000 MG In NS Inj 100 / 100 200 / 200 100 ML @ 200 mls/hr IV.SIG Q8H GERMAINE Rx#:[id number] fentaNYL 10 mcg/mL Premix Drip 250 / 250 250 / 250 250 / 250 2,500 mcg In 250 ml @ 50 MCG/HR 5 mls/hr IV.SIG TITRATE PRN Rx #:[id number] Tube Feeding 173 / 173 317 / 317 Tube Irrigant 50 / 50 Water Bolus Amount 400 / 400 400 / 400 Output: Urine Amount (Catheter) 900 / 900 1000 / 1000 Indwelling Urethral Catheter 900 / 900 1000 / 1000 Other: Date of Last Bowel Movement 02/14/18 02/14/18 02/14/18 # Bowel Movements 2 02/13/18 11:35 Sputum - Endotracheal Gram Stain - Final 02/13/18 11:35 Sputum - Endotracheal Sputum Culture - Final Moderate growth normal respiratory pepito 02/13/18 13:16 Blood - Peripheral Aerobic Blood Culture - Preliminary No growth in 2 days 02/13/18 13:16 Blood - Peripheral Anaerobic Blood Culture - Preliminary No growth in 2 days 02/13/18 13:16 Blood - Peripheral Aerobic Blood Culture - Preliminary No growth in 2 days 02/13/18 13:16 Blood - Peripheral Anaerobic Blood Culture - Preliminary No growth in 2 days 02/12/18 08:30 Catheterized Urine Urine Culture - Final No growth in 48 hours Lab - Hematology Results 02/14/18 02/15/18 06:26 04:28 WBC 9.5 10.5 RBC 2.10 L 2.16 L Hgb 7.3 L 7.4 L Hct 20.9 L* 21.4 L MCV 99.2 99.0 MCH 34.6 H 34.3 H MCHC 34.8 34.6 RDW 16.6 16.4 Plt Count 647 H 771 H MPV 8.2 8.0 Prelim Diff (Auto) Slide review pending Slide review pending Neut % (Auto) 68.4 65.9 Lymph % (Auto) 17.5 18.4 Woods % (Auto) 8.4 H 9.4 H Eos % (Auto) 5.0 H 5.6 H Baso % (Auto) 0.7 0.7 Neut # (Auto) 6.5 6.9 Lymph # (Auto) 1.7 1.9 Woods # (Auto) 0.8 1.0 H Eos # (Auto) 0.5 H 0.6 H Baso # (Auto) 0.1 0.1 WBC Differential Manual diff final Manual diff final Seg Neuts % (Manual) 72 H 68 Band Neuts % (Manual) 3 1 Lymphocytes % (Manual) 12 12 Monocytes % (Manual) 4 11 H Eosinophils % (Manual) 6 H 5 H Metamyelocytes % (Man) 2 H Myelocytes % (Man) 1 H 1 H Promyelocytes % (Man) 2 H Abs Neuts (Manual) 7.4 7.6 Differential Comment . . Toxic Granulation 1+ H Platelet Estimate High H High H Platelet Morphology Normal Normal Stomatocytes 1+ H Lab - Chemistry Results 02/13/18 02/13/18 02/13/18 13:10 16:40 22:11 Sodium 145 Potassium 4.7 D Chloride 114 H Carbon Dioxide 21.4 Anion Gap 10 BUN 17 Creatinine 0.79 Estimated GFR Greater than 89 POC Glucose 95 88 Random Glucose 95 Calcium 8.9 D Phosphorus 4.1 D Magnesium 1.4 L Total Bilirubin 0.3 AST 22 ALT 14 Alkaline Phosphatase 147 H Total Protein 5.6 L Albumin 1.5 L 02/13/18 02/14/18 02/14/18 23:47 05:04 06:26 Sodium 143 Potassium 4.3 Chloride 111 H Carbon Dioxide 21.4 Anion Gap 11 BUN 14 Creatinine 0.72 Estimated GFR Greater than 89 POC Glucose 112 H 120 H Random Glucose 88 Calcium 8.5 Phosphorus 4.2 Magnesium 1.6 Total Bilirubin 0.3 AST 28 ALT 15 Alkaline Phosphatase 130 H Total Protein 5.4 L Albumin 1.6 L 02/14/18 02/14/18 02/14/18 07:41 13:18 16:24 Sodium Potassium Chloride Carbon Dioxide Anion Gap BUN Creatinine Estimated GFR POC Glucose 94 90 91 Random Glucose Calcium Phosphorus Magnesium Total Bilirubin AST ALT Alkaline Phosphatase Total Protein Albumin 02/14/18 02/15/18 02/15/18 21:05 00:25 04:28 Sodium 142 Potassium 4.2 Chloride 110 H Carbon Dioxide 22.0 Anion Gap 10 BUN 11 Creatinine 0.71 Estimated GFR Greater than 89 POC Glucose 107 87 Random Glucose 99 Calcium 9.0 Phosphorus 4.3 Magnesium 1.4 L Total Bilirubin AST ALT Alkaline Phosphatase Total Protein Albumin 02/15/18 02/15/18 07:51 12:18 Sodium Potassium Chloride Carbon Dioxide Anion Gap BUN Creatinine Estimated GFR POC Glucose 84 96 Random Glucose Calcium Phosphorus Magnesium Total Bilirubin AST ALT Alkaline Phosphatase Total Protein Albumin Imaging: ITS Impressions Abdomen/Pelvis CT 01/28/18 00:00 CONCLUSION: 1. There is a new finding of presumed pneumobilia in the left hepatic lobe. Is there a history of recent instrumentation? Portal venous gas is not entirely excluded. 2. Mild induration of the peripancreatic fat proximally suggest mild acute pancreatitis. 3. Small fat-containing umbilical hernia. 4. Pulmonary consolidation is noted as above. 5. Mild gaseous distention of the stomach. Chest CT 01/28/18 00:00 CONCLUSION: 1. Bilateral consolidation most pronounced in the left lower lobe and left upper lobe posteriorly. Gallbladder Ultrasound 01/30/18 00:00 CONCLUSION: 1. Unremarkable study. Abdomen/Bladder Ultrasound 01/30/18 15:17 CONCLUSION: 1. Negative renal sonogram. Head CT 02/06/18 03:50 CONCLUSION: 1. No acute intracranial abnormalities. . Abdomen X-Ray 02/08/18 00:00 CONCLUSION: NG tube placement as above. Head MRI 02/09/18 00:00 CONCLUSION: 1. Normal MRI of the brain. 2. Sinusitis and mastoiditis. Chest CTA 02/14/18 00:00 CONCLUSION: No evidence of pulmonary embolism. New right upper lobe pneumonia. Improving aeration on the left. Chest X-Ray 02/14/18 06:00 CONCLUSION: No significant change. Physical Exam: PHYSICAL EXAMINATION: GENERAL: Sedated on the ventilator. HEENT: Pupils are equal and reactive. No icterus. NECK: No adenopathy or swelling. LUNGS: Rhonchi at the right base. HEART: Regular S1 and S2. No murmurs heard. ABDOMEN: Bowel sounds diminished. Soft. No tenderness appreciated on palpation. EXTREMITIES: No clubbing, cyanosis; trace edema of the hands. SKIN: Fading diffuse maculopapular rash. NEUROLOGIC: Unable to fully assess. PSYCHIATRIC: Unable to fully assess. Assessment and Plan - Plan IMPRESSION: 1. Possible sepsis. However cultures have been negative. Previous staph coagulase positive blood culture felt to be contamination. Subsequent cultures negative. No clear source. Temperature improved. 2. Skin rash. Likely drug related. Probably cefepime was associated. 3. Pneumonia. Suspect aspiration. 4. Status post cardiac arrest. 5. Acute respiratory failure. Patient now post tracheostomy. 6. Acute renal failure. Improved. 7. Seizure disorder. 8. Diarrhea. Questionable antibiotic associated. 9. Oliva UTI. 10. Leukocytosis improved. 11. C. difficile colitis. I spoke to microbiology regarding the C. difficile PCR test. RECOMMENDATIONS: 1. Continue Diflucan. 2. Continue Meropenem. 3. Add intravenous Flagyl for C. difficile. 4. Add p.o. vancomycin for C. difficile. 5. Monitor Sputum culture. 6. Monitor temperature. 7. Monitor clinical status. Discussed with RN. Discussed with microbiology.
--- NOTE | 2018-02-15 15:14 | P.DIET ---
Nutritional Evaluation Type of nutrition evaluation: follow-up Nutrition consult regarding: Tube Feeding Objective - Diagnosis Vomiting - Objective % IBW: 99 (IBW = 166#) Body Weight Used for Calculations: Actual (75 kg) Energy Needs - Lower Range (kCal/kg): 25 Energy Needs - Upper Range (kCal/kg): 30 Lower Limit kCal/kg (kCals): 1,875 Upper Limit kCal/kg (kCals): 2,250 Lower Limit Protein Factor (Grams per Kg): 1.1 Upper Limit Protein Factor (Grams per Kg): 1.3 Lower Protein Needs (Protein): 83 Upper Protein Needs (Protein): 98 Dietitian Reviewed in Medical Record: Curent medications, Intake & Output, Labs , Medical history, Tube feeding Diet Order: TF'ing ONLY: Jevity 1.5 @ goal rate 60ml/hr Objective Comments: PMH Includes: Alcohol Abuse, Depression, GERD, Hernia, Pancreatitis, seizures Extubated 02/05; reintubated 02/05 02/09 PEG tube placed C-Diff colitis +2BM, +UOP 1900ml Feeding - Current Tube Feeding Tube Feeding Product: Jevity 1.5 Assessment Assessment: Pt continues at high nutrition risk r/t diagnosis and his need for TFing. TF' ing w/Jevity 1.5, as ordered, @ goal rate 60 ml/hr provides for pt's assessed needs and will offer 2160 kcal, 92g protein and 1094 ml of free water. Some additional kcal will be provided by propofol (1.1 kcal/ml). Currently receiving 25.8 ml/hr of propofol which provides 681 kcal. Wt changes noted. Additional Recs r/t Clinical Course. Recommendations: 1.TF'ing w/Jevity 1.5, as ordered, @ goal rate 60 ml/hr provides for pt's assessed needs 2. Some additional kcal will be provided by propofol (1.1 kcal/ml) 3. Additional Recs r/t Clinical Course Dietitian to Monitor: Lab values, Renal labs, Glucose level, Intake & Output, Tube feeding tolerance, Weight change, Medical course
[2018-02-15] MEDS: Magnesium Oxide 400 MG Tablet PO SCH (20:16)
[2018-02-16] MEDS: Midazolam 50 MG/50 ML Inj 50 MG/50 ML BAG IV.CONT PRN ×5 (02:21→21:50)
[2018-02-16] MEDS: fentaNYL 10 mcg/mL Premix Drip 2,500 MCG/250 ML BAG IV.SIG PRN ×3 (02:21→21:50)
[2018-02-16] MEDS: Propofol 1000 mg/100 ml Inj 1,000 MG/100 ML BOTTLE IV.CONT PRN ×5 (03:32→19:14)
[2018-02-16] MEDS: Oral Hygiene Kit OROPHARYNG SCH ×3 (03:33→15:53)
[2018-02-16 05:01] LABS: Baso # (Auto) 0.1 th/mm3 (0.0-0.2); Eos # (Auto) 0.7 th/mm3 (0.0-0.4); Eos % (Auto) 6.8 % (0.0-4.0); Hematocrit 22.6 % (39.0-51.0); Hemoglobin 7.6 gm/dL (13.0-17.0); Lymph # (Auto) 1.7 th/mm3 (1.0-4.8); Lymph % (Auto) 17.8 % (9.0-44.0); Mean Corpuscular HGB Conc 33.4 % (32.0-36.0); Mean Corpuscular Hemoglobin 33.4 pg (27.0-34.0); Mean Corpuscular Volume 99.9 fL (80.0-100.0); Mean Platelet Volume 8.1 fL (7.0-11.0); Mono % (Auto) 9.7 % (0.0-8.0); Neut # (Auto) 6.3 th/mm3 (1.8-7.7); Neut % (Auto) 64.7 % (16.0-70.0); Platelet Count 876 th/mm3 (150-450); Red Blood Count 2.27 mil/mm3 (4.50-5.90); Red Cell Distribution Width 16.1 % (11.6-17.2); White Blood Count 9.8 th/mm3 (4.0-11.0)
[2018-02-16 05:43] LABS: Anion Gap 9 meq/L (5-15); Blood Urea Nitrogen 11 mg/dL (7-18); Calcium 9.1 mg/dL (8.5-10.1); Carbon Dioxide 22.9 meq/L (21.0-32.0); Chloride 110 meq/L (98-107); Glomerular Filtration Rate Greater Than 89 mL/min (>89); Glucose,Random 99 mg/dL (74-106); Magnesium 1.6 mg/dL (1.5-2.5); Phosphorus 4.2 mg/dL (2.5-4.9); Potassium 4.1 meq/L (3.5-5.1); Sodium 142 meq/L (136-145)
[2018-02-16] MEDS: Insulin NovoLOG Aspart Correctional Sugar Inj SQ SCH ×6 (06:21→23:08)
--- NOTE | 2018-02-16 07:09 | P.PNCC ---
Subjective Subjective Remarks/Hospital Course: This is a 32-year-old male. Admission 01/28/2018. Past medical history includes seizure disorder/noncompliant with levetiracetam, previous EtOH sober for 4 weeks, anorexia, gastroesophageal reflux disease and chronic pancreatitis. Patient presented to [facility] 01/28/2018 with a two-day history of nausea vomiting and diarrhea. Patient's mother/discussed at bedside stated she had just had a "stomach flu" which she has currently recovered. Mom states that the patient has become fairly dehydrated is been having some cramping of his hands. She is worried that he is getting dehydrated and his potassium might begin low. He was unable to tolerate a banana so she gave him some potassium pills p.o. which she also did not tolerate and threw up. Sober 4 weeks according to mother. Patient was noted to have a low potassium at 2.0. Creatinine of 4.0. This is in line with his previous hospitalizations for acute dehydration. Lipase was slightly elevated. Patient does have a history of seizure disorder which is not compliant with levetiracetam. ED physician was called into room because the RN believed he had a seizure. Patient was unresponsive. Mother states this was not like any seizure that she had seen. Pulses not palpable therefore CPR was initiated. Initial rhythm was V. fib. Patient received amiodarone, lidocaine, epinephrine, bicarbonate, magnesium during the 35 minute code with return of spontaneous circulation after 35 minutes. Pupils are about 9 mils bilaterally and 6. When I saw the patient patient was actively thrashing moving all 4 extremities spontaneously but not to command. Pupils are round 8 mm bilaterally and nonreactive. Brain CT revealed no acute findings. CT thorax revealed a left upper and lower lobe. CT abdomen pelvis pending at time of dictation. Likely, troponin pending. EKG revealed incomplete right bundle block with ST depression in the inferior and lateral leads. Cardiology consulted. They will evaluate after stat echocardiogram and troponins been completed. Potassium will be replaced pending [facility] 01/29: persistently in shock. following commands this AM. trop uptrended overnight and now > 40. on levo @ 10, vasopressin. bedside echo with persistence of his global severe LV systolic dysfunction. IVC dilated without respiratory variation. initially attempted therapeutic hypothermia, but became arrhythmogenic and neurologic exam improved and now following commands, so hypothermia aborted. persistently hypokalemic and hypophosphatemic this AM. in addition, remains with severe metabolic alkalosis. 01/30: Troponin trending down, continues to have severe hypokalemia and metabolic alkalosis. Creatinine continues to trend up, only produced 200 cc of urine over the past 24 hours. 01/31: Patient seen by nephrology yesterday and given bumex, urine output dramatically increased, potassium improved with aggressive repletion, pressors now off and dobutamine at 5. 02/01: No issues overnight. Patient tolerated dobutamine at 2 yesterday, discontinued this morning. Switching propofol to precedex and would like to start SBTs today. Overall improved. 02/02: Tolerated switch to precedex yesterday and was on bipap 05/06 for several hours yesterday afternoon, placed back on AC overnight to avoid respiratory fatigue. 02/03: Patient had no overnight events, tolerated SBT x 5 hours yesterday. Significantly agitated this morning during sedation vacation. 02/04: Patient still struggles with agitation when we lighten sedation. 02/05: Temp 103F this morning, no obvious source of infection. Needs to have PICC line placed today. 02/06: reintubated yesterday. overnight persistently febrile. this morning appears in distress- tachypneic on the ventilator, acidotic. potassium up to 5.8 despite medical management. bedside echo with improving LVEF and completely collapsed IVC. no pericardial effusion. lung ultrasound without effusions. 02/07: Remains sedated, orally intubated on mechanical ventilation. On propofol fentanyl and Versed drips. Transfuse 1 unit PRBCs earlier today for drop in hemoglobin. 02/08: Remains sedated, orally intubated on mechanical ventilation. On propofol fentanyl and Versed drips. Awaiting tracheostomy which is scheduled for later today. 02/09: Overnight, new onset of maculopapular rash noted. Noted discontinuation of cefepime 02/08. Received 1 dose diphenhydramine overnight. 02/10: Afebrile. Discussed with mom at bedside. Follows commands weakly bilateral upper and lower extremities. Diffuse macular papular rash improved lower extremities. Appears stable and upper thorax. On Famotidine, methylprednisolone and diphenhydramine 02/11: Afebrile. Opens eyes to voice. Following commands weakly bilateral upper lower extremity. On propofol 50 roxanne grams per kilogram, a fentanyl drip at 250 mg of midazolam drip at 6 mg an hour due to "agitation" overnight. Will wean. Increased quetiapine to 100 twice daily. 02/12: remains on vent at this time, sedated. Follows commands all extremities weakly. RN states that she increase her sedation as the patient was tachycardic and hypotensive. I will start labetalol 200 mg twice daily and attempt sedation wean. 02/13: T-max 101.5. Remains on fentanyl drip at 250 roxanne grams an hour, midazolam drip at 7 mg an hour and fentanyl drip at 250 roxanne grams an hour. Started labetalol 200 mg twice a yesterday but now hypotensive. Tube feeds currently at 10 cc an hour. 02/14: T-max 100.3. Remains on fentanyl drip at 250 roxanne grams an hour, midazolam drip at 7 mg and fentanyl drip 250 mcg an hour. 2 feedings currently at [address] pulmonary angiogram today per cardiology request. Will discuss some other possible transfer to select hospital today. 02/15: T-max 100.3. Tube feedings currently at [address] pulmonary angiogram revealed right upper lobe infiltrate/new. No pulmonary embolism. Opens eyes to voice. SUBJECTIVE: 02/16: T-max 100.7. Arousable to voice and close his eyes. Noted increasing platelets currently 876. Will check iron studies and peripheral smear. Again continued difficulty weaning off IV sedation due to severe agitation. Objective Vital Signs / I&O: Vital Signs 02/15/18 07:43 02/15/18 08:00 02/15/18 09:39 Temperature 101.6 F H Pulse Rate 117 H 97 H Respiratory Rate 27 H 18 Blood Pressure 147/74 H Pulse Oximetry 100 100 02/15/18 10:00 02/15/18 10:30 02/15/18 11:00 Temperature Pulse Rate 92 H 89 90 Respiratory Rate Blood Pressure 84/46 L 88/52 L 123/77 Pulse Oximetry 97 100 100 02/15/18 11:30 02/15/18 12:00 02/15/18 12:30 Temperature 99.7 F H Pulse Rate 108 H 102 H 96 H Respiratory Rate Blood Pressure 106/65 97/57 L 90/54 L Pulse Oximetry 100 100 100 02/15/18 12:42 02/15/18 13:00 02/15/18 13:30 Temperature Pulse Rate 92 H 96 H Respiratory Rate 18 Blood Pressure 88/56 L 83/50 L Pulse Oximetry 100 100 100 02/15/18 14:00 02/15/18 14:30 02/15/18 15:00 Temperature Pulse Rate 97 H 92 H 86 Respiratory Rate Blood Pressure 84/55 L 84/51 L 109/61 Pulse Oximetry 100 100 100 02/15/18 15:30 02/15/18 16:00 02/15/18 16:30 Temperature 98.8 F Pulse Rate 83 82 83 Respiratory Rate Blood Pressure 100/57 L 95/59 L 92/57 L Pulse Oximetry 100 100 100 02/15/18 17:00 02/15/18 17:09 02/15/18 17:30 Temperature Pulse Rate 82 82 88 Respiratory Rate 18 Blood Pressure 116/58 L 99/62 L Pulse Oximetry 100 100 100 02/15/18 18:00 02/15/18 18:30 02/15/18 19:00 Temperature Pulse Rate 88 90 93 H Respiratory Rate 20 18 Blood Pressure 90/60 L 120/76 103/58 L Pulse Oximetry 100 100 100 02/15/18 19:30 02/15/18 20:00 02/15/18 20:30 Temperature 98.9 F Pulse Rate 94 H 93 H 93 H Respiratory Rate 17 18 23 Blood Pressure 93/59 L 93/59 L 123/77 Pulse Oximetry 100 100 100 02/15/18 20:32 02/15/18 21:00 02/15/18 21:30 Temperature Pulse Rate 94 H 98 H 99 H Respiratory Rate 18 18 18 Blood Pressure 105/55 L 100/60 Pulse Oximetry 100 100 100 02/15/18 22:00 02/15/18 22:30 02/15/18 23:00 Temperature Pulse Rate 108 H 109 H 104 H Respiratory Rate 32 H 23 24 Blood Pressure 133/82 112/66 101/59 L Pulse Oximetry 94 L 100 100 02/15/18 23:30 02/15/18 23:52 02/16/18 00:00 Temperature 98.6 F Pulse Rate 100 H 100 H Respiratory Rate 20 19 18 Blood Pressure 93/59 L 95/51 L Pulse Oximetry 100 100 100 02/16/18 00:30 02/16/18 01:00 02/16/18 01:30 Temperature Pulse Rate 97 H 108 H 112 H Respiratory Rate 20 20 24 Blood Pressure 94/51 L 125/72 117/69 Pulse Oximetry 100 100 100 02/16/18 02:00 02/16/18 02:30 02/16/18 03:00 Temperature Pulse Rate 120 H 115 H 109 H Respiratory Rate 86 H 17 20 Blood Pressure 155/105 H 128/73 113/69 Pulse Oximetry 87 L 100 02/16/18 03:24 02/16/18 03:30 02/16/18 04:00 Temperature 100.7 F H Pulse Rate 110 H 116 H 110 H Respiratory Rate 20 23 18 Blood Pressure 142/73 H 113/61 Pulse Oximetry 97 02/16/18 04:30 02/16/18 06:00 Temperature Pulse Rate 106 H 104 H Respiratory Rate 18 Blood Pressure 105/64 Pulse Oximetry 100 Intake & Output 02/15/18 02/16/18 02/16/18 18:59 06:59 18:59 Intake Total 2204 / 2204 1410 / 1410 Output Total 1999 / 1999 1500 / 1500 Balance 204 / 204 -90 / -90 Weight 94 kg Intake: IV 1350 / 1350 950 / 950 Versed Inj 50 mg In 50 ml @ 2 150 / 150 100 / 100 MG/HR 2 mls/hr IV.CONT TITRATE PRN Rx#:[id number] Diprivan 1000 mg/100 ml Inj 1, 300 / 300 200 / 200 000 mg In 100 ml @ 5 MCG/KG/MIN 2.58 mls/hr IV.CONT TITRATE PRN Rx#:[id number] Magnesium Sulfate 1 gm/D5W 100 100 / 100 ml Premix 100 ML @ 100 mls/hr IV.SIG ONCE ONE Rx#:[id number] Magnesium Sulfate Inj 2 GM In 100 / 100 NS Inj 96 ML @ 50 mls/hr IV.SIG UNSCH PRN Rx#:[id number] Merrem Inj 1,000 MG In NS Inj 100 / 100 200 / 200 100 ML @ 200 mls/hr IV.SIG Q8H GERMAINE Rx#:[id number] fentaNYL 10 mcg/mL Premix Drip 500 / 500 250 / 250 2,500 mcg In 250 ml @ 50 MCG/HR 5 mls/hr IV.SIG TITRATE PRN Rx #:[id number] Flagyl 500 MG Inj 100 ML @ 100 100 / 100 200 / 200 mls/hr IV.SIG Q6H [facility] Rx#: [id number] Tube Feeding 454 / 454 460 / 460 Water Bolus Amount 400 / 400 Output: Urine Amount (Catheter) 1999 1500 / 1500 Indwelling Urethral Catheter 1999 1500 / 1500 Other: Date of Last Bowel Movement 02/14/18 02/16/18 # Bowel Movements 1 1 Result Diagrams: 02/16/18 04:09 02/16/18 04:09 Other Results: Microbiology 02/13/18 11:35 Sputum - Endotracheal Gram Stain - Final 02/13/18 11:35 Sputum - Endotracheal Sputum Culture - Final Moderate growth normal respiratory pepito 02/13/18 13:16 Blood - Peripheral Aerobic Blood Culture - Preliminary No growth in 2 days 02/13/18 13:16 Blood - Peripheral Anaerobic Blood Culture - Preliminary No growth in 2 days 02/13/18 13:16 Blood - Peripheral Aerobic Blood Culture - Preliminary No growth in 2 days 02/13/18 13:16 Blood - Peripheral Anaerobic Blood Culture - Preliminary No growth in 2 days 02/12/18 08:30 Catheterized Urine Urine Culture - Final No growth in 48 hours 02/05/18 22:13 Blood - Peripheral Aerobic Blood Culture - Final No growth in 5 days 02/05/18 22:13 Blood - Peripheral Anaerobic Blood Culture - Final No growth in 5 days 02/05/18 22:18 Blood - Peripheral Aerobic Blood Culture - Final No growth in 5 days 02/05/18 22:18 Blood - Peripheral Anaerobic Blood Culture - Final No growth in 5 days 02/08/18 17:00 Catheterized Urine Urine Culture - Final Oliva albicans 02/06/18 08:25 Sputum - Endotracheal Gram Stain - Final 02/06/18 08:25 Sputum - Endotracheal Sputum Culture - Final Heavy growth normal respiratory pepito 02/06/18 03:00 Catheterized Urine Urine Culture - Final No growth in 48 hours 02/05/18 10:30 Stool Stool Occult Blood (ROXANNE) - Final Hemoccult negative 01/31/18 15:00 Blood - Peripheral Aerobic Blood Culture - Final Staphylococcus epidermidis 01/31/18 15:00 Blood - Peripheral Anaerobic Blood Culture - Final No growth in 5 days 01/31/18 14:45 Blood - Peripheral Aerobic Blood Culture - Final No growth in 5 days 01/31/18 14:45 Blood - Peripheral Anaerobic Blood Culture - Final No growth in 5 days 01/28/18 17:55 Blood - Peripheral Aerobic Blood Culture - Final Staphylococcus hominis-hominis 01/28/18 17:55 Blood - Peripheral Anaerobic Blood Culture - Final No growth in 5 days 01/28/18 17:50 Blood - Peripheral Aerobic Blood Culture - Final No growth in 5 days 01/28/18 17:50 Blood - Peripheral Anaerobic Blood Culture - Final No growth in 5 days 01/30/18 16:01 Catheterized Urine Urine Culture - Final No growth in 48 hours 01/28/18 13:55 Sputum - Endotracheal Gram Stain - Final 01/28/18 13:55 Sputum - Endotracheal Sputum Culture - Final Heavy growth normal respiratory pepito 01/28/18 13:49 Urine - Catheterized Urine Legionella Antigen - Final Presumptive negative for Legionella pneumophila serogroup 1 antigen in urine, suggesting no recent or recurrent infection. Infection due to Legionella cannot be ruled out since other serogroups and species may cause disease, antigen may not be present in urine in early infection, and the level of antigen present in the urine may be below the detection limit of the test. 01/28/18 13:49 Urine - Catheterized Urine Streptococcus pneumoniae Antigen ( M - Final Presumptive negative for streptococcus pneumoniae antigen, suggesting no current or recent infection. Infection due to Streptococcus pneumoniae cannot be ruled out since the antigen present in the sample may be below the detection limit of the test. 01/28/18 13:51 Nasal Aspirate Influenza Types A,B Antigen - Final Negative for FLU A and B antigen Infection due to influenza A or B cannot be ruled out since the antigen present in the sample may be below the detection limit of the test. Imaging: Abdomen/Pelvis CT 01/28/18 00:00 CONCLUSION: 1. There is a new finding of presumed pneumobilia in the left hepatic lobe. Is there a history of recent instrumentation? Portal venous gas is not entirely excluded. 2. Mild induration of the peripancreatic fat proximally suggest mild acute pancreatitis. 3. Small fat-containing umbilical hernia. 4. Pulmonary consolidation is noted as above. 5. Mild gaseous distention of the stomach. Chest CT 01/28/18 00:00 CONCLUSION: 1. Bilateral consolidation most pronounced in the left lower lobe and left upper lobe posteriorly. Chest X-Ray 01/28/18 10:15 CONCLUSION: Endotracheal tube as above. Left lung consolidation. Head CT 01/28/18 10:19 CONCLUSION: 1. Negative CT Head non contrast. . Chest X-Ray 01/29/18 09:13 CONCLUSION: Right subclavian line as above. Gallbladder Ultrasound 01/30/18 00:00 CONCLUSION: 1. Unremarkable study. Chest X-Ray 01/30/18 05:00 CONCLUSION: Stable diffuse left lung airspace consolidation with bibasilar opacities likely representing atelectasis and possible small effusions. Abdomen/Bladder Ultrasound 01/30/18 15:17 CONCLUSION: 1. Negative renal sonogram. Chest X-Ray 02/04/18 05:00 CONCLUSION: Persistent consolidation in the lower lungs, slightly improved in the left lower lung. Chest X-Ray 02/05/18 00:00 CONCLUSION: ET tube is in excellent position. Lungs still mostly clear Chest X-Ray 02/06/18 01:30 CONCLUSION: Subsegmental airspace disease improved from February 05. Endotracheal tube and nasogastric tube in good position. Head CT 02/06/18 03:50 CONCLUSION: 1. No acute intracranial abnormalities. . Abdomen X-Ray 02/08/18 00:00 CONCLUSION: NG tube placement as above. Chest X-Ray 02/08/18 14:56 CONCLUSION: 1. Consolidating infiltrate has developed in the right midlung and left base 2. Interval placement of a tracheostomy tube and removal of endotracheal tube. 3. Otherwise stable chest. Head MRI 02/09/18 00:00 CONCLUSION: 1. Normal MRI of the brain. 2. Sinusitis and mastoiditis. Chest X-Ray 02/12/18 06:00 CONCLUSION: 1. Improving airspace consolidation in the right upper lung zone. 2. Persistent patchy airspace disease in the left lower lung zone. Chest CTA 02/14/18 00:00 CONCLUSION: No evidence of pulmonary embolism. New right upper lobe pneumonia. Improving aeration on the left. Chest X-Ray 02/14/18 06:00 CONCLUSION: No significant change. Objective Remarks: GENERAL: 32-year-old male currently on ventilator via tracheostomy HEENT: NCAT, pupils are equal round react about 3 meals bilaterally. Extraocular muscles are intact. NECK: Trachea midline. Tracheostomy site is clean dry and intact CHEST: Few coarse crackles appreciated no wheezing. CARDIOVASCULAR: RRR. S1, S2 no S4. Without murmur ABDOMEN: Soft, non-tender in all quadrants, fresh PEG tube site is clean dry and intact with no bleeding or erythema : Positive scrotal edema MUSCULOSKELETAL: Warm and well perfused, maculopapular rash on thorax, bilateral upper and lower extremities. 1+ bilateral upper and lower extremity peripheral edema NEUROLOGICAL: Follows commands by squeezing bilateral upper and bilateral lower extremities weakly. Positive gag and cough.. Assessment and Plan - Assessment and Plan Plan: Neuro/Psych: Seizure disorder NOS History of EtOH sober 4 weeks History of anorexia/bulimia Acute metabolic encephalopathy Sedated on propofol at 50 mcg/kg/min fentanyl drip at 250 mcg an hour, Midazolam drip at 10 mg an hour Goal of RASS -1, start weaning sedation Continue levetiracetam 500 BID (home dose) Home Quetiapine currently at 100 mg twice daily, increase to 200 twice daily. 0xycodone liquid 10 mg every 6 hours Valproic acid 250 milligrams twice daily Patient has a previous history of heavy EtOH abuse and bulimia as per mother-- continue thiamine Continue thiamine 100 mg twice daily Adding low-dose clonidine 0 point milligrams twice daily. Monitor blood pressure closely CV: In-hospital cardiac arrest V. fib arrest Cardiogenic Shock-- resolved Severe LV systolic dysfunction- resolving. Septic shock Evaluated by Dr. Townsend. No further cardiac workup planned at this time. Echo 01/28: severe LV systolic dysfunction, EF 20-25%. mildly depressed RV function. no valvular lesions. continue daily ASA 325 mg daily. Continued PO thiamine supplementation for ? beriberi Echocardiogram 02/14 - the left ventricular systolic function is normal with an estimated ejection fraction in the range of 60-65%. Normal left ventricular size. Wall thickness is normal. No regional wall motion abnormalities are present. . Resp: Acute hypoxic respiratory failure- recurrent. Left upper/lower lobe pulmonary infiltrates-- improving New right upper lobe infiltrate Extubated 02/05, reintubated 02/05 for respiratory failure Status post tracheostomy by Dr. Serna 02/08 Albuterol/ipratropium aerosols every 6 hours with albuterol aerosols every 2 hours as needed for dyspnea vent bundle, hob elevated wean fio2 for goal spo2 > 90% PSV 10/8 at 45%. Attempt T-piece as tolerated. 3 hours 02/13 CT pulmonary angiogram revealed right upper limits. No pulmonary embolus. GI: Elevated lipase/mild pancreatitis-- resolved Left hepatic pneumobilia history of chronic pancreatitis C. Difficile Colitis restarted tube feeds today see orders after PEG tube placement. Jevity 1.5 @ 60 cc an hour per dietary recommendations. Currently at 40 cc an hour By tube famotidine for GI prophylaxis due to rash Docusate serum/senna 1 tablet twice daily for bowel regimen Renal/ : Acute kidney injury-- i resolved Nance replaced 02/04. continue for accurate i/o's. Creatinine peaked around 6, continues to improve, but slowly currently 0.86. Nephrology has signed off Endo: Sliding scale insulin with Accu-Cheks to maintain euglycemia aspart insulin every 6 hours, Heme: Normocytic anemia Thrombocytosis Monitor CBC daily. Follow trends. No indication for transfusion of blood products at this time Remains on aspirin 325 mg daily Check peripheral smear and iron studies today for elevated platelets ID: Septic shock-resolving C. Difficile Colitis Blood cultures on 01/28 and 01/31 showed coagulase negative staph hominis, likely contamination Sputum, UA and influenza all NGTD s/p zosyn for 7 days to treat pneumonia, d/c on 02/05 repeat blood cultures 02/05 no growth sent sputum culture urine culture 02/05 no growth,02/08 Oliva albicans started on PO Vanc 02/05-present. IV metronidazole added 02/15 Currently on meropenem and fluconazole day #3. Pancultured again 02/13 Infectious disease following actively FEN: Hypomagnesia Replace electrolytes as clinically indicated. 2 g mag sulfate IV 1 now. Free water 200 cc every 6 hours MSK PT evaluate and treat DERM: Diffuse macular papular rash likely secondary to cefepime resolving Treated with amlodipine, diphenhydramine and methylprednisolone succinate. Added cefepime to adverse reaction with rash Access: - 01/29 - 02/05 right SC TLC - 02/04 Nance for urinary retention Prophylaxis -GI-famotidine -DVT SCD/heparin drip on hold due to bleeding. Subcutaneous heparin Level 2 follow-up
[2018-02-16 07:53] LABS: Myelocytes 2 % (0-0)
[2018-02-16 07:55] LABS: Eosinophils 4 % (0-4); Lymphocytes 7 % (9-44); Metamyelocytes 1 % (0-1); Monocytes 10 % (0-8); Platelet Morphology Normal (Normal)
[2018-02-16] MEDS: Chlorhexidine 0.12% Oral Kit 15 ML UDC OROPHARYNG SCH ×2 (08:48→20:13)
[2018-02-16] MEDS: Mag Sulf 1 gm/100 ml Premix 100 ML IV.SIG SCH ×2 (09:01→10:05)
[2018-02-16] MEDS: Carboxymethylcellulose 0.5% Opth Drops 15 ML Bottle EACH EYE SCH ×2 (09:01→20:14)
[2018-02-16] MEDS: Heparin - SQ 10,000 UNITS/ML Vial SQ SCH ×2 (09:02→20:13)
[2018-02-16] MEDS: levETIRAcetam 500 MG Tablet NG/OG SCH ×2 (09:02→20:13)
[2018-02-16] MEDS: QUEtiapine 100 MG Tablet NG/OG SCH ×2 (09:02→20:13)
[2018-02-16] MEDS: Magnesium Oxide 400 MG Tablet PO SCH (09:02)
[2018-02-16] MEDS: Famotidine 20 MG Tablet G-TUBE SCH ×2 (09:02→20:13)
[2018-02-16] MEDS: Fluconazole 100 MG Tablet PO SCH (09:02)
[2018-02-16] MEDS: Aspirin 325 MG Tablet PO SCH (09:02)
[2018-02-16] MEDS: Senna/Docusate Sodium 8.6/50 MG Tablet PO SCH ×2 (09:03→20:13)
[2018-02-16 09:58] LABS: C-Reactive Protein 6.9 mg/dL (0.00-0.30)
--- NOTE | 2018-02-16 11:11 | P.PNID ---
Subjective Remarks: Patient is sedated on the ventilator. Sedated because of agitation. On CPAP. Discussed with RN. Opens eyes. Following commands when awake. White blood cell count is normal. Temperature spiking. 102. max He has loose stools. PCR for C. difficile was positive Diffuse maculopapular resolved. Cefepime was discontinued 02/08/2018. Blood culture has no growth. Status post tracheostomy 02/08/2018. This is a 32-year-old white male who presented to the emergency department with 2-day history of nausea, vomiting, and diarrhea. The patient ended up intubated after he went into ventricular fibrillation cardiac arrest and was resuscitated. He also was noted to have seizure activity. Antibiotics: Vanco PO Flagyl. Meropenem Diflucan Lines: Has peripheral IV Lines ok Past Medical History: PAST MEDICAL HISTORY: Alcohol abuse, gastroesophageal reflux disease, hernia, depression, pancreatitis, seizure disorder, left inguinal hernia repair. Allergies/Adverse Reactions: Allergies Sulfa (Sulfonamide Antibiotics) Allergy (Severe, Verified 10/11/17 07:56) hives cefepime Adverse Reaction (Intermediate, Verified 02/15/18 10:55) Rash, Generalized Objective Vital Signs 02/15/18 11:30 02/15/18 12:00 02/15/18 12:30 Temperature 99.7 F H Pulse Rate 108 H 102 H 96 H Respiratory Rate Blood Pressure 106/65 97/57 L 90/54 L Pulse Oximetry 100 100 100 02/15/18 12:42 02/15/18 13:00 02/15/18 13:30 Temperature Pulse Rate 92 H 96 H Respiratory Rate 18 Blood Pressure 88/56 L 83/50 L Pulse Oximetry 100 100 100 02/15/18 14:00 02/15/18 14:30 02/15/18 15:00 Temperature Pulse Rate 97 H 92 H 86 Respiratory Rate Blood Pressure 84/55 L 84/51 L 109/61 Pulse Oximetry 100 100 100 02/15/18 15:30 02/15/18 16:00 02/15/18 16:30 Temperature 98.8 F Pulse Rate 83 82 83 Respiratory Rate Blood Pressure 100/57 L 95/59 L 92/57 L Pulse Oximetry 100 100 100 02/15/18 17:00 02/15/18 17:09 02/15/18 17:30 Temperature Pulse Rate 82 82 88 Respiratory Rate 18 Blood Pressure 116/58 L 99/62 L Pulse Oximetry 100 100 100 02/15/18 18:00 02/15/18 18:30 02/15/18 19:00 Temperature Pulse Rate 88 90 93 H Respiratory Rate 20 18 Blood Pressure 90/60 L 120/76 103/58 L Pulse Oximetry 100 100 100 02/15/18 19:30 02/15/18 20:00 02/15/18 20:30 Temperature 98.9 F Pulse Rate 94 H 93 H 93 H Respiratory Rate 17 18 23 Blood Pressure 93/59 L 93/59 L 123/77 Pulse Oximetry 100 100 100 02/15/18 20:32 02/15/18 21:00 02/15/18 21:30 Temperature Pulse Rate 94 H 98 H 99 H Respiratory Rate 18 18 18 Blood Pressure 105/55 L 100/60 Pulse Oximetry 100 100 100 02/15/18 22:00 02/15/18 22:30 02/15/18 23:00 Temperature Pulse Rate 108 H 109 H 104 H Respiratory Rate 32 H 23 24 Blood Pressure 133/82 112/66 101/59 L Pulse Oximetry 94 L 100 100 02/15/18 23:30 02/15/18 23:52 02/16/18 00:00 Temperature 98.6 F Pulse Rate 100 H 100 H Respiratory Rate 20 19 18 Blood Pressure 93/59 L 95/51 L Pulse Oximetry 100 100 100 02/16/18 00:30 02/16/18 01:00 02/16/18 01:30 Temperature Pulse Rate 97 H 108 H 112 H Respiratory Rate 20 20 24 Blood Pressure 94/51 L 125/72 117/69 Pulse Oximetry 100 100 100 02/16/18 02:00 02/16/18 02:30 02/16/18 03:00 Temperature Pulse Rate 120 H 115 H 109 H Respiratory Rate 86 H 17 20 Blood Pressure 155/105 H 128/73 113/69 Pulse Oximetry 87 L 100 02/16/18 03:24 02/16/18 03:30 02/16/18 04:00 Temperature 100.7 F H Pulse Rate 110 H 116 H 110 H Respiratory Rate 20 23 18 Blood Pressure 142/73 H 113/61 Pulse Oximetry 97 02/16/18 04:30 02/16/18 06:00 02/16/18 07:54 Temperature Pulse Rate 106 H 104 H Respiratory Rate 18 21 Blood Pressure 105/64 Pulse Oximetry 100 99 02/16/18 08:00 02/16/18 09:16 02/16/18 10:00 Temperature 102.4 F H Pulse Rate 103 H 120 H 126 H Respiratory Rate 21 26 H Blood Pressure 117/72 Pulse Oximetry 99 Intake & Output 02/15/18 02/16/18 02/16/18 18:59 06:59 18:59 Intake Total 2204 / 2204 1410 / 1410 350 / 350 Output Total 1999 1500 / 1500 Balance 204 / 204 -90 / -90 350 / 350 Weight 94 kg Intake: IV 1350 / 1350 950 / 950 350 / 350 Versed Inj 50 mg In 50 ml @ 2 150 / 150 100 / 100 50 / 50 MG/HR 2 mls/hr IV.CONT TITRATE PRN Rx#:[id number] Diprivan 1000 mg/100 ml Inj 1, 300 / 300 200 / 200 100 / 100 000 mg In 100 ml @ 5 MCG/KG/MIN 2.58 mls/hr IV.CONT TITRATE PRN Rx#:[id number] Magnesium Sulfate 1 gm/D5W 100 100 / 100 100 / 100 ml Premix 100 ML @ 100 mls/hr IV.SIG Q1H GERMAINE Rx#:[id number] Magnesium Sulfate Inj 2 GM In 100 / 100 NS Inj 96 ML @ 50 mls/hr IV.SIG UNSCH PRN Rx#:[id number] Merrem Inj 1,000 MG In NS Inj 100 / 100 200 / 200 100 ML @ 200 mls/hr IV.SIG Q8H GERMAINE Rx#:[id number] fentaNYL 10 mcg/mL Premix Drip 500 / 500 250 / 250 2,500 mcg In 250 ml @ 50 MCG/HR 5 mls/hr IV.SIG TITRATE PRN Rx #:[id number] Flagyl 500 MG Inj 100 ML @ 100 100 / 100 200 / 200 100 / 100 mls/hr IV.SIG Q6H GERMAINE Rx#: [id number] Tube Feeding 454 / 454 460 / 460 Water Bolus Amount 400 / 400 Output: Urine Amount (Catheter) 1999 1500 / 1500 Indwelling Urethral Catheter 1999 1500 / 1500 Other: Date of Last Bowel Movement 02/14/18 02/16/18 02/14/18 # Bowel Movements 1 1 02/13/18 13:16 Blood - Peripheral Aerobic Blood Culture - Preliminary No growth in 3 days 02/13/18 13:16 Blood - Peripheral Anaerobic Blood Culture - Preliminary No growth in 3 days 02/13/18 13:16 Blood - Peripheral Aerobic Blood Culture - Preliminary No growth in 3 days 02/13/18 13:16 Blood - Peripheral Anaerobic Blood Culture - Preliminary No growth in 3 days 02/13/18 11:35 Sputum - Endotracheal Gram Stain - Final 02/13/18 11:35 Sputum - Endotracheal Sputum Culture - Final Moderate growth normal respiratory pepito 02/12/18 08:30 Catheterized Urine Urine Culture - Final No growth in 48 hours Lab - Hematology Results 02/15/18 02/16/18 02/16/18 04:28 04:09 04:09 WBC 10.5 9.8 RBC 2.16 L 2.27 L Hgb 7.4 L 7.6 L Hct 21.4 L 22.6 L MCV 99.0 99.9 MCH 34.3 H 33.4 MCHC 34.6 33.4 RDW 16.4 16.1 Plt Count 771 H 876 H MPV 8.0 8.1 Prelim Diff (Auto) Slide review pending Slide review pending Neut % (Auto) 65.9 64.7 Lymph % (Auto) 18.4 17.8 [place] % (Auto) 9.4 H 9.7 H Eos % (Auto) 5.6 H 6.8 H Baso % (Auto) 0.7 1.0 Neut # (Auto) 6.9 6.3 Lymph # (Auto) 1.9 1.7 [place] # (Auto) 1.0 H 1.0 H Eos # (Auto) 0.6 H 0.7 H Baso # (Auto) 0.1 0.1 WBC Differential Manual diff final Manual diff final Seg Neuts % (Manual) 68 63 Band Neuts % (Manual) 1 13 H Lymphocytes % (Manual) 12 7 L Monocytes % (Manual) 11 H 10 H Eosinophils % (Manual) 5 H 4 Metamyelocytes % (Man) 2 H 1 Myelocytes % (Man) 1 H 2 H Abs Neuts (Manual) 7.6 7.7 Differential Comment . . Platelet Estimate High H High H Platelet Morphology Normal Normal Smear Path Review Lab - Chemistry Results 02/14/18 02/14/18 02/14/18 13:18 16:24 21:05 Sodium Potassium Chloride Carbon Dioxide Anion Gap BUN Creatinine Estimated GFR POC Glucose 90 91 107 Random Glucose Calcium Phosphorus Magnesium Iron TIBC % Saturation Transferrin Ferritin C-Reactive Protein 02/15/18 02/15/18 02/15/18 00:25 04:28 07:51 Sodium 142 Potassium 4.2 Chloride 110 H Carbon Dioxide 22.0 Anion Gap 10 BUN 11 Creatinine 0.71 Estimated GFR Greater than 89 POC Glucose 87 84 Random Glucose 99 Calcium 9.0 Phosphorus 4.3 Magnesium 1.4 L Iron TIBC % Saturation Transferrin Ferritin C-Reactive Protein 02/15/18 02/15/18 02/15/18 12:18 17:24 21:56 Sodium Potassium Chloride Carbon Dioxide Anion Gap BUN Creatinine Estimated GFR POC Glucose 96 88 110 Random Glucose Calcium Phosphorus Magnesium Iron TIBC % Saturation Transferrin Ferritin C-Reactive Protein 02/15/18 02/16/18 02/16/18 23:20 04:09 04:09 Sodium 142 Potassium 4.1 Chloride 110 H Carbon Dioxide 22.9 Anion Gap 9 BUN 11 Creatinine 0.65 Estimated GFR Greater than 89 POC Glucose 104 Random Glucose 99 Calcium 9.1 Phosphorus 4.2 Magnesium 1.6 Iron 21 L TIBC 150 L % Saturation 14.0 L Transferrin 107 L Ferritin 573 H C-Reactive Protein 6.90 H 02/16/18 08:39 Sodium Potassium Chloride Carbon Dioxide Anion Gap BUN Creatinine Estimated GFR POC Glucose 104 Random Glucose Calcium Phosphorus Magnesium Iron TIBC % Saturation Transferrin Ferritin C-Reactive Protein Imaging: ITS Impressions Abdomen/Pelvis CT 01/28/18 00:00 CONCLUSION: 1. There is a new finding of presumed pneumobilia in the left hepatic lobe. Is there a history of recent instrumentation? Portal venous gas is not entirely excluded. 2. Mild induration of the peripancreatic fat proximally suggest mild acute pancreatitis. 3. Small fat-containing umbilical hernia. 4. Pulmonary consolidation is noted as above. 5. Mild gaseous distention of the stomach. Chest CT 01/28/18 00:00 CONCLUSION: 1. Bilateral consolidation most pronounced in the left lower lobe and left upper lobe posteriorly. Gallbladder Ultrasound 01/30/18 00:00 CONCLUSION: 1. Unremarkable study. Abdomen/Bladder Ultrasound 01/30/18 15:17 CONCLUSION: 1. Negative renal sonogram. Head CT 02/06/18 03:50 CONCLUSION: 1. No acute intracranial abnormalities. . Abdomen X-Ray 02/08/18 00:00 CONCLUSION: NG tube placement as above. Head MRI 02/09/18 00:00 CONCLUSION: 1. Normal MRI of the brain. 2. Sinusitis and mastoiditis. Chest CTA 02/14/18 00:00 CONCLUSION: No evidence of pulmonary embolism. New right upper lobe pneumonia. Improving aeration on the left. Chest X-Ray 02/14/18 06:00 CONCLUSION: No significant change. Physical Exam: PHYSICAL EXAMINATION: GENERAL: Sedated on the ventilator. HEENT: Pupils are equal and reactive. No icterus. NECK: No adenopathy or swelling. LUNGS: Rhonchi at both bases. HEART: Regular S1 and S2. No murmurs heard. ABDOMEN: Bowel sounds diminished. Soft. No tenderness appreciated on palpation. EXTREMITIES: No clubbing, cyanosis; 2+ edema of the hands. SKIN: No diffuse rash. NEUROLOGIC: Unable to fully assess. PSYCHIATRIC: Unable to fully assess. Assessment and Plan - Plan IMPRESSION: 1. Possible sepsis. Previous staph coagulase positive blood culture felt to be contamination. Subsequent cultures negative. 2. Skin rash. Likely drug related. Probably cefepime was associated. 3. Pneumonia. Suspect aspiration. 4. Status post cardiac arrest. 5. Acute respiratory failure. Patient now post tracheostomy. 6. Acute renal failure. Improved. 7. Seizure disorder. 8. Diarrhea. Questionable antibiotic associated. 9. Oliva UTI. 10. Leukocytosis improved. 11. C. difficile colitis. I spoke to microbiology regarding the C. difficile PCR test. 12 Fever spikes. Culture negative. RECOMMENDATIONS: 1. Continue Diflucan. 2. Continue Meropenem. 3. Continue intravenous Flagyl for C. difficile. 4. Continue p.o. vancomycin for C. difficile. 5. Monitor cultures. 6. Monitor temperature. 7. Monitor clinical status. 8. If fever persist may consider adding IV Vancomycin. Discussed with ARCHANA.
[2018-02-17] MEDS: Oral Hygiene Kit OROPHARYNG SCH ×4 (03:07→15:14)
[2018-02-17] MEDS: Midazolam 50 MG/50 ML Inj 50 MG/50 ML BAG IV.CONT PRN ×5 (03:10→21:37)
[2018-02-17] MEDS: Insulin NovoLOG Aspart Correctional Sugar Inj SQ SCH ×5 (03:53→21:15)
[2018-02-17] MEDS: Propofol 1000 mg/100 ml Inj 1,000 MG/100 ML BOTTLE IV.CONT PRN ×6 (05:43→23:37)
--- NOTE | 2018-02-17 06:43 | XR ---
EXAM DATE: 02/17/2018 6:28 AM EDT AGE/SEX: 32 years / Male INDICATIONS: Shortness of breath CLINICAL DATA: This is the patient's subsequent encounter. Patient reports that signs and symptoms h ave been present for 2 weeks and indicates a pain score of Nonresponsive. MEDICAL/SURGICAL HISTORY: Seizures. Pancreatitis. None. COMPARISON: [facility] [place] 02/14/2018. . FINDINGS: Infiltrate in the right upper lobe and left midlung not significantly changed. No large effusion seen . No pneumothorax. Heart size stable, within normal limits. Tracheostomy tube again seen. CONCLUSION: No significant change right upper lobe and left midlung pneumonia. Electronically signed by: Alejandro Lawson MD 02/17/2018 6:42 AM EDT
[2018-02-17 07:06] LABS: Baso # (Auto) 0.1 th/mm3 (0.0-0.2); Eos # (Auto) 0.8 th/mm3 (0.0-0.4); Eos % (Auto) 8.3 % (0.0-4.0); Hematocrit 21.4 % (39.0-51.0); Hemoglobin 7.4 gm/dL (13.0-17.0); Lymph # (Auto) 1.7 th/mm3 (1.0-4.8); Lymph % (Auto) 18.7 % (9.0-44.0); Mean Corpuscular HGB Conc 34.8 % (32.0-36.0); Mean Corpuscular Hemoglobin 33.7 pg (27.0-34.0); Mean Platelet Volume 7.6 fL (7.0-11.0); Mono # (Auto) 1.1 th/mm3 (0.0-0.9); Mono % (Auto) 11.8 % (0.0-8.0); Neut # (Auto) 5.5 th/mm3 (1.8-7.7); Neut % (Auto) 60.2 % (16.0-70.0); Platelet Count 954 th/mm3 (150-450); Red Cell Distribution Width 16.3 % (11.6-17.2); White Blood Count 9.2 th/mm3 (4.0-11.0)
[2018-02-17 07:20] LABS: Anion Gap 9 meq/L (5-15); Blood Urea Nitrogen 10 mg/dL (7-18); Calcium 9.3 mg/dL (8.5-10.1); Carbon Dioxide 23.6 meq/L (21.0-32.0); Chloride 108 meq/L (98-107); Glomerular Filtration Rate Greater Than 89 mL/min (>89); Glucose,Random 115 mg/dL (74-106); Magnesium 1.3 mg/dL (1.5-2.5); Potassium 3.9 meq/L (3.5-5.1); Sodium 141 meq/L (136-145)
[2018-02-17 07:21] LABS: Phosphorus 3.9 mg/dL (2.5-4.9)
[2018-02-17] MEDS: Carboxymethylcellulose 0.5% Opth Drops 15 ML Bottle EACH EYE SCH ×2 (08:10→21:50)
[2018-02-17] MEDS: fentaNYL 10 mcg/mL Premix Drip 2,500 MCG/250 ML BAG IV.SIG PRN ×2 (08:11→17:56)
[2018-02-17] MEDS: Aspirin 325 MG Tablet PO SCH (08:12)
[2018-02-17] MEDS: Senna/Docusate Sodium 8.6/50 MG Tablet PO SCH ×2 (08:12→21:48)
[2018-02-17] MEDS: Famotidine 20 MG Tablet G-TUBE SCH ×2 (08:12→21:14)
[2018-02-17] MEDS: levETIRAcetam 500 MG Tablet NG/OG SCH ×2 (08:12→21:14)
[2018-02-17] MEDS: QUEtiapine 100 MG Tablet NG/OG SCH ×2 (08:13→21:14)
[2018-02-17] MEDS: Heparin - SQ 10,000 UNITS/ML Vial SQ SCH ×2 (08:13→21:14)
[2018-02-17] MEDS: Fluconazole 100 MG Tablet PO SCH (08:13)
[2018-02-17] MEDS: Chlorhexidine 0.12% Oral Kit 15 ML UDC OROPHARYNG SCH ×2 (08:14→21:15)
[2018-02-17 09:38] LABS: Eosinophils 8 % (0-4); Lymphocytes 13 % (9-44); Metamyelocytes 4 % (0-1); Monocytes 9 % (0-8); Myelocytes 8 % (0-0); Platelet Morphology Normal (Normal)
--- NOTE | 2018-02-17 12:31 | P.PNID ---
Subjective Remarks: Patient is sedated on the ventilator. He has to be sedated because of agitation. Discussed with RN. Still has fever. WBC normal. CXR showing continued infiltrate in RUL and left lower. Diffuse maculopapular resolved. He has loose stools. Blood culture is negative. Cefepime was discontinued 02/08/2018. Status post tracheostomy 02/08/2018. This is a 32-year-old white male who presented to the emergency department with 2-day history of nausea, vomiting, and diarrhea. The patient ended up intubated after he went into ventricular fibrillation cardiac arrest and was resuscitated. He also was noted to have seizure activity. Antibiotics: Meropenem Diflucan Lines: Has peripheral IV Lines ok Past Medical History: PAST MEDICAL HISTORY: Alcohol abuse, gastroesophageal reflux disease, hernia, depression, pancreatitis, seizure disorder, left inguinal hernia repair. Allergies/Adverse Reactions: Allergies Sulfa (Sulfonamide Antibiotics) Allergy (Severe, Verified 10/11/17 07:56) hives cefepime Adverse Reaction (Intermediate, Verified 02/15/18 10:55) Rash, Generalized Objective Vital Signs 02/16/18 12:30 02/16/18 13:00 02/16/18 13:30 Temperature Pulse Rate 101 H 98 H 102 H Respiratory Rate 14 10 L 9 L Blood Pressure 90/56 L 91/50 L 98/60 L Pulse Oximetry 100 100 100 02/16/18 14:00 02/16/18 14:30 02/16/18 15:00 Temperature Pulse Rate 95 H 91 H 87 Respiratory Rate 14 10 L 10 L Blood Pressure 81/51 L 103/57 L 99/66 L Pulse Oximetry 100 100 100 02/16/18 15:33 02/16/18 15:41 02/16/18 16:00 Temperature 99.0 F Pulse Rate 101 H 108 H 99 H Respiratory Rate 22 18 10 L Blood Pressure 117/71 105/63 Pulse Oximetry 100 100 100 02/16/18 16:30 02/16/18 17:00 02/16/18 17:30 Temperature Pulse Rate 101 H 99 H 93 H Respiratory Rate 14 18 10 L Blood Pressure 102/68 127/69 112/71 Pulse Oximetry 100 100 100 02/16/18 18:00 02/16/18 18:30 02/16/18 19:00 Temperature Pulse Rate 92 H 97 H 95 H Respiratory Rate 13 14 10 L Blood Pressure 110/70 121/74 107/66 Pulse Oximetry 100 100 100 02/16/18 19:30 02/16/18 20:00 02/16/18 20:01 Temperature 98.8 F Pulse Rate 91 H 97 H 104 H Respiratory Rate 13 26 H 25 H Blood Pressure 101/66 138/77 Pulse Oximetry 100 100 100 02/16/18 20:30 02/16/18 21:00 02/16/18 21:07 Temperature Pulse Rate 98 H 96 H 96 H Respiratory Rate 11 L 14 19 Blood Pressure 112/65 101/57 L Pulse Oximetry 100 100 100 02/16/18 21:30 02/16/18 22:00 02/16/18 22:30 Temperature Pulse Rate 93 H 90 88 Respiratory Rate 14 14 13 Blood Pressure 89/55 L 107/60 100/61 Pulse Oximetry 100 100 100 02/16/18 23:00 02/16/18 23:30 02/17/18 00:00 Temperature 100.7 F H Pulse Rate 114 H 113 H 107 H Respiratory Rate 19 13 15 Blood Pressure 120/72 98/56 L 97/62 L Pulse Oximetry 99 100 100 02/17/18 00:30 02/17/18 00:35 02/17/18 01:00 Temperature Pulse Rate 112 H 104 H Respiratory Rate 17 18 14 Blood Pressure 102/67 105/67 Pulse Oximetry 100 100 100 02/17/18 01:30 02/17/18 02:00 02/17/18 02:30 Temperature Pulse Rate 110 H 115 H 108 H Respiratory Rate 16 20 14 Blood Pressure 128/77 115/71 107/65 Pulse Oximetry 100 98 100 02/17/18 03:00 02/17/18 03:30 02/17/18 04:00 Temperature 100 F H Pulse Rate 103 H 100 H 99 H Respiratory Rate 14 13 14 Blood Pressure 103/66 100/61 101/63 Pulse Oximetry 100 100 100 02/17/18 05:05 02/17/18 06:00 02/17/18 06:11 Temperature Pulse Rate 112 H 112 H Respiratory Rate 31 H 14 Blood Pressure Pulse Oximetry 100 100 02/17/18 08:28 02/17/18 09:08 02/17/18 11:32 Temperature Pulse Rate 120 H Respiratory Rate 23 22 18 Blood Pressure Pulse Oximetry 100 95 Intake & Output 02/16/18 02/17/18 02/17/18 18:59 06:59 18:59 Intake Total 1980 / 1980 1493 / 1493 650 / 650 Output Total 1799 / 1799 1800 / 1800 Balance 181 / 181 -307 / -307 650 / 650 Weight 89.5 kg Intake: IV 1200 / 1200 950 / 950 650 / 650 Versed Inj 50 mg In 50 ml @ 2 150 / 150 100 / 100 100 / 100 MG/HR 2 mls/hr IV.CONT TITRATE PRN Rx#:[id number] Diprivan 1000 mg/100 ml Inj 1, 300 / 300 200 / 200 200 / 200 000 mg In 100 ml @ 5 MCG/KG/MIN 2.58 mls/hr IV.CONT TITRATE PRN Rx#:[id number] Magnesium Sulfate 1 gm/D5W 100 200 / 200 ml Premix 100 ML @ 100 mls/hr IV.SIG Q1H GERMAINE Rx#:[id number] Merrem Inj 1,000 MG In NS Inj 100 / 100 200 / 200 100 ML @ 200 mls/hr IV.SIG Q8H GERMAINE Rx#:[id number] fentaNYL 10 mcg/mL Premix Drip 250 / 250 250 / 250 250 / 250 2,500 mcg In 250 ml @ 50 MCG/HR 5 mls/hr IV.SIG TITRATE PRN Rx #:[id number] Flagyl 500 MG Inj 100 ML @ 100 200 / 200 200 / 200 100 / 100 mls/hr IV.SIG Q6H GERMAINE Rx#: [id number] Tube Feeding 381 / 381 543 / 543 Water Bolus Amount 400 / 400 Output: Urine Amount (Catheter) 1800 / 1800 1800 / 1800 Indwelling Urethral Catheter 1800 / 1800 1800 / 1800 Other: Date of Last Bowel Movement 02/14/18 02/16/18 02/16/18 # Bowel Movements 1 02/13/18 13:16 Blood - Peripheral Aerobic Blood Culture - Preliminary No growth in 4 days 02/13/18 13:16 Blood - Peripheral Anaerobic Blood Culture - Preliminary No growth in 4 days 02/13/18 13:16 Blood - Peripheral Aerobic Blood Culture - Preliminary No growth in 4 days 02/13/18 13:16 Blood - Peripheral Anaerobic Blood Culture - Preliminary No growth in 4 days 02/13/18 11:35 Sputum - Endotracheal Gram Stain - Final 02/13/18 11:35 Sputum - Endotracheal Sputum Culture - Final Moderate growth normal respiratory pepito 02/12/18 08:30 Catheterized Urine Urine Culture - Final No growth in 48 hours Lab - Hematology Results 02/16/18 02/16/18 02/17/18 04:09 04:09 06:36 WBC 9.8 9.2 RBC 2.27 L 2.20 L Hgb 7.6 L 7.4 L Hct 22.6 L 21.4 L MCV 99.9 97.0 MCH 33.4 33.7 MCHC 33.4 34.8 RDW 16.1 16.3 Plt Count 876 H 954 H MPV 8.1 7.6 Prelim Diff (Auto) Slide review pending Slide review pending Neut % (Auto) 64.7 60.2 Lymph % (Auto) 17.8 18.7 [place] % (Auto) 9.7 H 11.8 H Eos % (Auto) 6.8 H 8.3 H Baso % (Auto) 1.0 1.0 Neut # (Auto) 6.3 5.5 Lymph # (Auto) 1.7 1.7 [place] # (Auto) 1.0 H 1.1 H Eos # (Auto) 0.7 H 0.8 H Baso # (Auto) 0.1 0.1 WBC Differential Manual diff final Manual diff final Seg Neuts % (Manual) 63 45 Band Neuts % (Manual) 13 H 12 H Lymphocytes % (Manual) 7 L 13 Monocytes % (Manual) 10 H 9 H Eosinophils % (Manual) 4 8 H Basophils % (Manual) 1 Metamyelocytes % (Man) 1 4 H Myelocytes % (Man) 2 H 8 H Abs Neuts (Manual) 7.7 6.3 Differential Comment . . Platelet Estimate High H High H Platelet Morphology Normal Normal Smear Path Review Lab - Chemistry Results 02/15/18 02/15/18 02/15/18 17:24 21:56 23:20 Sodium Potassium Chloride Carbon Dioxide Anion Gap BUN Creatinine Estimated GFR POC Glucose 88 110 104 Random Glucose Calcium Phosphorus Magnesium Iron TIBC % Saturation Transferrin Ferritin C-Reactive Protein 02/16/18 02/16/18 02/16/18 04:09 04:09 08:39 Sodium 142 Potassium 4.1 Chloride 110 H Carbon Dioxide 22.9 Anion Gap 9 BUN 11 Creatinine 0.65 Estimated GFR Greater than 89 POC Glucose 104 Random Glucose 99 Calcium 9.1 Phosphorus 4.2 Magnesium 1.6 Iron 21 L TIBC 150 L % Saturation 14.0 L Transferrin 107 L Ferritin 573 H C-Reactive Protein 6.90 H 02/16/18 02/16/18 02/16/18 11:58 15:44 19:58 Sodium Potassium Chloride Carbon Dioxide Anion Gap BUN Creatinine Estimated GFR POC Glucose 102 86 96 Random Glucose Calcium Phosphorus Magnesium Iron TIBC % Saturation Transferrin Ferritin C-Reactive Protein 02/16/18 02/17/18 02/17/18 23:04 06:36 08:17 Sodium 141 Potassium 3.9 Chloride 108 H Carbon Dioxide 23.6 Anion Gap 9 BUN 10 Creatinine 0.64 Estimated GFR Greater than 89 POC Glucose 107 101 Random Glucose 115 H Calcium 9.3 Phosphorus 3.9 Magnesium 1.3 L Iron TIBC % Saturation Transferrin Ferritin C-Reactive Protein 02/17/18 12:01 Sodium Potassium Chloride Carbon Dioxide Anion Gap BUN Creatinine Estimated GFR POC Glucose 98 Random Glucose Calcium Phosphorus Magnesium Iron TIBC % Saturation Transferrin Ferritin C-Reactive Protein Imaging: ITS Impressions Abdomen/Pelvis CT 01/28/18 00:00 CONCLUSION: 1. There is a new finding of presumed pneumobilia in the left hepatic lobe. Is there a history of recent instrumentation? Portal venous gas is not entirely excluded. 2. Mild induration of the peripancreatic fat proximally suggest mild acute pancreatitis. 3. Small fat-containing umbilical hernia. 4. Pulmonary consolidation is noted as above. 5. Mild gaseous distention of the stomach. Chest CT 01/28/18 00:00 CONCLUSION: 1. Bilateral consolidation most pronounced in the left lower lobe and left upper lobe posteriorly. Gallbladder Ultrasound 01/30/18 00:00 CONCLUSION: 1. Unremarkable study. Abdomen/Bladder Ultrasound 01/30/18 15:17 CONCLUSION: 1. Negative renal sonogram. Head CT 02/06/18 03:50 CONCLUSION: 1. No acute intracranial abnormalities. . Abdomen X-Ray 02/08/18 00:00 CONCLUSION: NG tube placement as above. Head MRI 02/09/18 00:00 CONCLUSION: 1. Normal MRI of the brain. 2. Sinusitis and mastoiditis. Chest CTA 02/14/18 00:00 CONCLUSION: No evidence of pulmonary embolism. New right upper lobe pneumonia. Improving aeration on the left. Chest X-Ray 02/17/18 06:00 CONCLUSION: No significant change right upper lobe and left midlung pneumonia. Physical Exam: PHYSICAL EXAMINATION: GENERAL: Sedated on the ventilator. HEENT: Pupils are equal and reactive. No icterus. NECK: No adenopathy or swelling. LUNGS: Bilateral basilar rhonchi. HEART: Regular S1 and S2. No murmurs heard. ABDOMEN: Bowel sounds present. Soft. No tenderness appreciated. EXTREMITIES: No clubbing, cyanosis; edema of the hands. SKIN: resolved rash. NEUROLOGIC: Unable to fully assess. PSYCHIATRIC: Unable to fully assess. Assessment and Plan - Plan IMPRESSION: 1. Possible sepsis. However cultures have been negative. Previous staph coagulase positive blood culture felt to be contamination. Subsequent cultures negative. No clear source. Temperature improved. 2. Skin rash. Likely drug related. Probably cefepime was associated. 3. Pneumonia. Suspect aspiration. 4. Status post cardiac arrest. 5. Acute respiratory failure. Patient now post tracheostomy. 6. Acute renal failure. Improved. 7. Seizure disorder. 8. Diarrhea. Questionable antibiotic associated. 9. Oliva UTI. 10. Leukocytosis improved. 11. C. difficile colitis. I spoke to microbiology regarding the C. difficile PCR test. RECOMMENDATIONS: 1. Continue Diflucan. 2. Continue Meropenem. 3. Continue intravenous Flagyl for C. difficile. 4. Continue p.o. vancomycin for C. difficile. 5. Consider bronchoscopy for deep respiratory cultures. Discussed with Dr Bird. 6. Monitor temperature. and WBC. 7. Monitor clinical status. Discussed with
[2018-02-17] MEDS ORDERED: Etomidate Inj 40 MG/20 ML Vial IV.PUSH ONE (12:42)
--- NOTE | 2018-02-17 12:51 | P.PNCC ---
Subjective Subjective Remarks/Hospital Course: This is a 32-year-old male. Admission 01/28/2018. Past medical history includes seizure disorder/noncompliant with levetiracetam, previous EtOH sober for 4 weeks, anorexia, gastroesophageal reflux disease and chronic pancreatitis. Patient presented to [facility] 01/28/2018 with a two-day history of nausea vomiting and diarrhea. Patient's mother/discussed at bedside stated she had just had a "stomach flu" which she has currently recovered. Mom states that the patient has become fairly dehydrated is been having some cramping of his hands. She is worried that he is getting dehydrated and his potassium might begin low. He was unable to tolerate a banana so she gave him some potassium pills p.o. which she also did not tolerate and threw up. Sober 4 weeks according to mother. Patient was noted to have a low potassium at 2.0. Creatinine of 4.0. This is in line with his previous hospitalizations for acute dehydration. Lipase was slightly elevated. Patient does have a history of seizure disorder which is not compliant with levetiracetam. ED physician was called into room because the RN believed he had a seizure. Patient was unresponsive. Mother states this was not like any seizure that she had seen. Pulses not palpable therefore CPR was initiated. Initial rhythm was V. fib. Patient received amiodarone, lidocaine, epinephrine, bicarbonate, magnesium during the 35 minute code with return of spontaneous circulation after 35 minutes. Pupils are about 9 mils bilaterally and 6. When I saw the patient patient was actively thrashing moving all 4 extremities spontaneously but not to command. Pupils are round 8 mm bilaterally and nonreactive. Brain CT revealed no acute findings. CT thorax revealed a left upper and lower lobe. CT abdomen pelvis pending at time of dictation. Likely, troponin pending. EKG revealed incomplete right bundle block with ST depression in the inferior and lateral leads. Cardiology consulted. They will evaluate after stat echocardiogram and troponins been completed. Potassium will be replaced pending [facility] 01/29: persistently in shock. following commands this AM. trop uptrended overnight and now > 40. on levo @ 10, vasopressin. bedside echo with persistence of his global severe LV systolic dysfunction. IVC dilated without respiratory variation. initially attempted therapeutic hypothermia, but became arrhythmogenic and neurologic exam improved and now following commands, so hypothermia aborted. persistently hypokalemic and hypophosphatemic this AM. in addition, remains with severe metabolic alkalosis. 01/30: Troponin trending down, continues to have severe hypokalemia and metabolic alkalosis. Creatinine continues to trend up, only produced 200 cc of urine over the past 24 hours. 01/31: Patient seen by nephrology yesterday and given bumex, urine output dramatically increased, potassium improved with aggressive repletion, pressors now off and dobutamine at 5. 02/01: No issues overnight. Patient tolerated dobutamine at 2 yesterday, discontinued this morning. Switching propofol to precedex and would like to start SBTs today. Overall improved. 02/02: Tolerated switch to precedex yesterday and was on bipap 05/06 for several hours yesterday afternoon, placed back on AC overnight to avoid respiratory fatigue. 02/03: Patient had no overnight events, tolerated SBT x 5 hours yesterday. Significantly agitated this morning during sedation vacation. 02/04: Patient still struggles with agitation when we lighten sedation. 02/05: Temp 103F this morning, no obvious source of infection. Needs to have PICC line placed today. 02/06: reintubated yesterday. overnight persistently febrile. this morning appears in distress- tachypneic on the ventilator, acidotic. potassium up to 5.8 despite medical management. bedside echo with improving LVEF and completely collapsed IVC. no pericardial effusion. lung ultrasound without effusions. 02/07: Remains sedated, orally intubated on mechanical ventilation. On propofol fentanyl and Versed drips. Transfuse 1 unit PRBCs earlier today for drop in hemoglobin. 02/08: Remains sedated, orally intubated on mechanical ventilation. On propofol fentanyl and Versed drips. Awaiting tracheostomy which is scheduled for later today. 02/09: Overnight, new onset of maculopapular rash noted. Noted discontinuation of cefepime 02/08. Received 1 dose diphenhydramine overnight. 02/10: Afebrile. Discussed with mom at bedside. Follows commands weakly bilateral upper and lower extremities. Diffuse macular papular rash improved lower extremities. Appears stable and upper thorax. On Famotidine, methylprednisolone and diphenhydramine 02/11: Afebrile. Opens eyes to voice. Following commands weakly bilateral upper lower extremity. On propofol 50 roxanne grams per kilogram, a fentanyl drip at 250 mg of midazolam drip at 6 mg an hour due to "agitation" overnight. Will wean. Increased quetiapine to 100 twice daily. 02/12: remains on vent at this time, sedated. Follows commands all extremities weakly. RN states that she increase her sedation as the patient was tachycardic and hypotensive. I will start labetalol 200 mg twice daily and attempt sedation wean. 02/13: T-max 101.5. Remains on fentanyl drip at 250 roxanne grams an hour, midazolam drip at 7 mg an hour and fentanyl drip at 250 roxanne grams an hour. Started labetalol 200 mg twice a yesterday but now hypotensive. Tube feeds currently at 10 cc an hour. 02/14: T-max 100.3. Remains on fentanyl drip at 250 roxanne grams an hour, midazolam drip at 7 mg and fentanyl drip 250 mcg an hour. 2 feedings currently at [address] pulmonary angiogram today per cardiology request. Will discuss some other possible transfer to select hospital today. 02/15: T-max 100.3. Tube feedings currently at [address] pulmonary angiogram revealed right upper lobe infiltrate/new. No pulmonary embolism. Opens eyes to voice. 02/16: T-max 100.7. Arousable to voice and close his eyes. Noted increasing platelets currently 876. Will check iron studies and peripheral smear. Again continued difficulty weaning off IV sedation due to severe agitation. SUBJECTIVE: 02/17: Remains febrile. Plan for bronchoscopy right upper lobe infiltrate. Please continue to increase. Tolerating tube feeds at 50 cc an hour. Positive BM. Objective Vital Signs / I&O: Vital Signs 02/16/18 13:00 02/16/18 13:30 02/16/18 14:00 Temperature Pulse Rate 98 H 102 H 95 H Respiratory Rate 10 L 9 L 14 Blood Pressure 91/50 L 98/60 L 81/51 L Pulse Oximetry 100 100 100 02/16/18 14:30 02/16/18 15:00 02/16/18 15:33 Temperature Pulse Rate 91 H 87 101 H Respiratory Rate 10 L 10 L 22 Blood Pressure 103/57 L 99/66 L 117/71 Pulse Oximetry 100 100 100 02/16/18 15:41 02/16/18 16:00 02/16/18 16:30 Temperature 99.0 F Pulse Rate 108 H 99 H 101 H Respiratory Rate 18 10 L 14 Blood Pressure 105/63 102/68 Pulse Oximetry 100 100 100 02/16/18 17:00 02/16/18 17:30 02/16/18 18:00 Temperature Pulse Rate 99 H 93 H 92 H Respiratory Rate 18 10 L 13 Blood Pressure 127/69 112/71 110/70 Pulse Oximetry 100 100 100 02/16/18 18:30 02/16/18 19:00 02/16/18 19:30 Temperature Pulse Rate 97 H 95 H 91 H Respiratory Rate 14 10 L 13 Blood Pressure 121/74 107/66 101/66 Pulse Oximetry 100 100 100 02/16/18 20:00 02/16/18 20:01 02/16/18 20:30 Temperature 98.8 F Pulse Rate 97 H 104 H 98 H Respiratory Rate 26 H 25 H 11 L Blood Pressure 138/77 112/65 Pulse Oximetry 100 100 100 02/16/18 21:00 02/16/18 21:07 02/16/18 21:30 Temperature Pulse Rate 96 H 96 H 93 H Respiratory Rate 14 19 14 Blood Pressure 101/57 L 89/55 L Pulse Oximetry 100 100 100 02/16/18 22:00 02/16/18 22:30 02/16/18 23:00 Temperature Pulse Rate 90 88 114 H Respiratory Rate 14 13 19 Blood Pressure 107/60 100/61 120/72 Pulse Oximetry 100 100 99 02/16/18 23:30 02/17/18 00:00 02/17/18 00:30 Temperature 100.7 F H Pulse Rate 113 H 107 H 112 H Respiratory Rate 13 15 17 Blood Pressure 98/56 L 97/62 L 102/67 Pulse Oximetry 100 100 100 02/17/18 00:35 02/17/18 01:00 02/17/18 01:30 Temperature Pulse Rate 104 H 110 H Respiratory Rate 18 14 16 Blood Pressure 105/67 128/77 Pulse Oximetry 100 100 100 02/17/18 02:00 02/17/18 02:30 02/17/18 03:00 Temperature Pulse Rate 115 H 108 H 103 H Respiratory Rate 20 14 14 Blood Pressure 115/71 107/65 103/66 Pulse Oximetry 98 100 100 02/17/18 03:30 02/17/18 04:00 02/17/18 05:05 Temperature 100 F H Pulse Rate 100 H 99 H 112 H Respiratory Rate 13 14 31 H Blood Pressure 100/61 101/63 Pulse Oximetry 100 100 100 02/17/18 06:00 02/17/18 06:11 02/17/18 08:28 Temperature Pulse Rate 112 H Respiratory Rate 14 23 Blood Pressure Pulse Oximetry 100 100 02/17/18 09:08 02/17/18 11:32 Temperature Pulse Rate 120 H Respiratory Rate 22 18 Blood Pressure Pulse Oximetry 95 Intake & Output 02/16/18 02/17/18 02/17/18 18:59 06:59 18:59 Intake Total 1980 / 1980 1493 / 1493 650 / 650 Output Total 1799 / 1799 1799 / 1799 Balance 181 / 181 -307 / -307 650 / 650 Weight 89.5 kg Intake: IV 1200 / 1200 950 / 950 650 / 650 Versed Inj 50 mg In 50 ml @ 2 150 / 150 100 / 100 100 / 100 MG/HR 2 mls/hr IV.CONT TITRATE PRN Rx#:[id number] Diprivan 1000 mg/100 ml Inj 1, 300 / 300 200 / 200 200 / 200 000 mg In 100 ml @ 5 MCG/KG/MIN 2.58 mls/hr IV.CONT TITRATE PRN Rx#:[id number] Magnesium Sulfate 1 gm/D5W 100 200 / 200 ml Premix 100 ML @ 100 mls/hr IV.SIG Q1H GERMAINE Rx#:[id number] Merrem Inj 1,000 MG In NS Inj 100 / 100 200 / 200 100 ML @ 200 mls/hr IV.SIG Q8H GERMAINE Rx#:[id number] fentaNYL 10 mcg/mL Premix Drip 250 / 250 250 / 250 250 / 250 2,500 mcg In 250 ml @ 50 MCG/HR 5 mls/hr IV.SIG TITRATE PRN Rx #:[id number] Flagyl 500 MG Inj 100 ML @ 100 200 / 200 200 / 200 100 / 100 mls/hr IV.SIG Q6H GERMAINE Rx#: [id number] Tube Feeding 381 / 381 543 / 543 Water Bolus Amount 400 / 400 Output: Urine Amount (Catheter) 1800 / 1800 1800 / 1800 Indwelling Urethral Catheter 1800 / 1800 1800 / 1800 Other: Date of Last Bowel Movement 02/14/18 02/16/18 02/16/18 # Bowel Movements 1 Result Diagrams: 02/17/18 06:36 02/17/18 06:36 Other Results: Microbiology 02/13/18 13:16 Blood - Peripheral Aerobic Blood Culture - Preliminary No growth in 4 days 02/13/18 13:16 Blood - Peripheral Anaerobic Blood Culture - Preliminary No growth in 4 days 02/13/18 13:16 Blood - Peripheral Aerobic Blood Culture - Preliminary No growth in 4 days 02/13/18 13:16 Blood - Peripheral Anaerobic Blood Culture - Preliminary No growth in 4 days 02/13/18 11:35 Sputum - Endotracheal Gram Stain - Final 02/13/18 11:35 Sputum - Endotracheal Sputum Culture - Final Moderate growth normal respiratory pepito 02/12/18 08:30 Catheterized Urine Urine Culture - Final No growth in 48 hours 02/05/18 22:13 Blood - Peripheral Aerobic Blood Culture - Final No growth in 5 days 02/05/18 22:13 Blood - Peripheral Anaerobic Blood Culture - Final No growth in 5 days 02/05/18 22:18 Blood - Peripheral Aerobic Blood Culture - Final No growth in 5 days 02/05/18 22:18 Blood - Peripheral Anaerobic Blood Culture - Final No growth in 5 days 02/08/18 17:00 Catheterized Urine Urine Culture - Final Oliva albicans 02/06/18 08:25 Sputum - Endotracheal Gram Stain - Final 02/06/18 08:25 Sputum - Endotracheal Sputum Culture - Final Heavy growth normal respiratory pepito 02/06/18 03:00 Catheterized Urine Urine Culture - Final No growth in 48 hours 02/05/18 10:30 Stool Stool Occult Blood (ROXANNE) - Final Hemoccult negative 01/31/18 15:00 Blood - Peripheral Aerobic Blood Culture - Final Staphylococcus epidermidis 01/31/18 15:00 Blood - Peripheral Anaerobic Blood Culture - Final No growth in 5 days 01/31/18 14:45 Blood - Peripheral Aerobic Blood Culture - Final No growth in 5 days 01/31/18 14:45 Blood - Peripheral Anaerobic Blood Culture - Final No growth in 5 days 01/28/18 17:55 Blood - Peripheral Aerobic Blood Culture - Final Staphylococcus hominis-hominis 01/28/18 17:55 Blood - Peripheral Anaerobic Blood Culture - Final No growth in 5 days 01/28/18 17:50 Blood - Peripheral Aerobic Blood Culture - Final No growth in 5 days 01/28/18 17:50 Blood - Peripheral Anaerobic Blood Culture - Final No growth in 5 days 01/30/18 16:01 Catheterized Urine Urine Culture - Final No growth in 48 hours 01/28/18 13:55 Sputum - Endotracheal Gram Stain - Final 01/28/18 13:55 Sputum - Endotracheal Sputum Culture - Final Heavy growth normal respiratory pepito 01/28/18 13:49 Urine - Catheterized Urine Legionella Antigen - Final Presumptive negative for Legionella pneumophila serogroup 1 antigen in urine, suggesting no recent or recurrent infection. Infection due to Legionella cannot be ruled out since other serogroups and species may cause disease, antigen may not be present in urine in early infection, and the level of antigen present in the urine may be below the detection limit of the test. 01/28/18 13:49 Urine - Catheterized Urine Streptococcus pneumoniae Antigen ( M - Final Presumptive negative for streptococcus pneumoniae antigen, suggesting no current or recent infection. Infection due to Streptococcus pneumoniae cannot be ruled out since the antigen present in the sample may be below the detection limit of the test. 01/28/18 13:51 Nasal Aspirate Influenza Types A,B Antigen - Final Negative for FLU A and B antigen Infection due to influenza A or B cannot be ruled out since the antigen present in the sample may be below the detection limit of the test. Imaging: Abdomen/Pelvis CT 01/28/18 00:00 CONCLUSION: 1. There is a new finding of presumed pneumobilia in the left hepatic lobe. Is there a history of recent instrumentation? Portal venous gas is not entirely excluded. 2. Mild induration of the peripancreatic fat proximally suggest mild acute pancreatitis. 3. Small fat-containing umbilical hernia. 4. Pulmonary consolidation is noted as above. 5. Mild gaseous distention of the stomach. Chest CT 01/28/18 00:00 CONCLUSION: 1. Bilateral consolidation most pronounced in the left lower lobe and left upper lobe posteriorly. Chest X-Ray 01/28/18 10:15 CONCLUSION: Endotracheal tube as above. Left lung consolidation. Head CT 01/28/18 10:19 CONCLUSION: 1. Negative CT Head non contrast. . Chest X-Ray 01/29/18 09:13 CONCLUSION: Right subclavian line as above. Gallbladder Ultrasound 01/30/18 00:00 CONCLUSION: 1. Unremarkable study. Chest X-Ray 01/30/18 05:00 CONCLUSION: Stable diffuse left lung airspace consolidation with bibasilar opacities likely representing atelectasis and possible small effusions. Abdomen/Bladder Ultrasound 01/30/18 15:17 CONCLUSION: 1. Negative renal sonogram. Chest X-Ray 02/04/18 05:00 CONCLUSION: Persistent consolidation in the lower lungs, slightly improved in the left lower lung. Chest X-Ray 02/05/18 00:00 CONCLUSION: ET tube is in excellent position. Lungs still mostly clear Chest X-Ray 02/06/18 01:30 CONCLUSION: Subsegmental airspace disease improved from February 05. Endotracheal tube and nasogastric tube in good position. Head CT 02/06/18 03:50 CONCLUSION: 1. No acute intracranial abnormalities. . Abdomen X-Ray 02/08/18 00:00 CONCLUSION: NG tube placement as above. Chest X-Ray 02/08/18 14:56 CONCLUSION: 1. Consolidating infiltrate has developed in the right midlung and left base 2. Interval placement of a tracheostomy tube and removal of endotracheal tube. 3. Otherwise stable chest. Head MRI 02/09/18 00:00 CONCLUSION: 1. Normal MRI of the brain. 2. Sinusitis and mastoiditis. Chest X-Ray 02/12/18 06:00 CONCLUSION: 1. Improving airspace consolidation in the right upper lung zone. 2. Persistent patchy airspace disease in the left lower lung zone. Chest CTA 02/14/18 00:00 CONCLUSION: No evidence of pulmonary embolism. New right upper lobe pneumonia. Improving aeration on the left. Chest X-Ray 02/14/18 06:00 CONCLUSION: No significant change. Chest X-Ray 02/17/18 06:00 CONCLUSION: No significant change right upper lobe and left midlung pneumonia. Objective Remarks: GENERAL: 32-year-old male currently on ventilator via tracheostomy 8.0 Shiley HEENT: NCAT, pupils are equal round react about 3 meals bilaterally. Extraocular muscles are intact. NECK: Trachea midline. Tracheostomy site is clean dry and intact CHEST: Few coarse crackles appreciated no wheezing. CARDIOVASCULAR: RRR. S1, S2 no S4. Without murmur ABDOMEN: Soft, non-tender in all quadrants, fresh PEG tube site is clean dry and intact with no bleeding or erythema : Positive scrotal edema MUSCULOSKELETAL: Warm and well perfused, maculopapular rash on thorax, bilateral upper and lower extremities. 1+ bilateral upper and lower extremity peripheral edema NEUROLOGICAL: Follows commands by squeezing bilateral upper and bilateral lower extremities weakly. Positive gag and cough. Talks over trach. Assessment and Plan - Assessment and Plan Plan: Neuro/Psych: Seizure disorder NOS History of EtOH sober 4 weeks History of anorexia/bulimia Acute metabolic encephalopathy Sedated on propofol at 50 mcg/kg/min fentanyl drip at 250 mcg an hour, Midazolam drip at 10 mg an hour Goal of RASS 0, start weaning sedation Continue levetiracetam 500 BID (home dose) Home Quetiapine currently at 100 mg twice daily, increase to 200 twice daily. 0xycodone liquid 15 mg every 6 hours Valproic acid 250 milligrams twice daily Patient has a previous history of heavy EtOH abuse and bulimia as per mother-- continue thiamine Continue thiamine 100 mg twice daily Adding low-dose clonidine 0 point milligrams twice daily. Monitor blood pressure closely CV: In-hospital cardiac arrest V. fib arrest Cardiogenic Shock-- resolved Severe LV systolic dysfunction- resolving. Septic shock Evaluated by Dr. Townsend. No further cardiac workup planned at this time. Echo 01/28: severe LV systolic dysfunction, EF 20-25%. mildly depressed RV function. no valvular lesions. continue daily ASA 325 mg daily. Continued PO thiamine supplementation for ? beriberi Echocardiogram 02/14 - the left ventricular systolic function is normal with an estimated ejection fraction in the range of 60-65%. Normal left ventricular size. Wall thickness is normal. No regional wall motion abnormalities are present. . Resp: Acute hypoxic respiratory failure- recurrent. Left upper/lower lobe pulmonary infiltrates-- improving New right upper lobe infiltrate Extubated 02/05, reintubated 02/05 for respiratory failure Status post tracheostomy by Dr. Serna 02/08 Albuterol/ipratropium aerosols every 6 hours with albuterol aerosols every 2 hours as needed for dyspnea vent bundle, hob elevated wean fio2 for goal spo2 > 90% PSV 03/06 at 45%. Attempt T-piece as tolerated. 3 hours 02/13 CT pulmonary angiogram revealed right upper limits. No pulmonary embolus. GI: Elevated lipase/mild pancreatitis-- resolved Left hepatic pneumobilia history of chronic pancreatitis C. Difficile Colitis restarted tube feeds today see orders after PEG tube placement. Jevity 1.5 @ 60 cc an hour per dietary recommendations. Currently at 50 cc an hour By tube famotidine for GI prophylaxis due to rash Docusate serum/senna 1 tablet twice daily for bowel regimen Renal/ : Acute kidney injury-- i resolved Nance replaced 02/04. continue for accurate i/o's. Creatinine peaked around 6, continues to improve, but slowly currently 0.86. Nephrology has signed off Endo: Sliding scale insulin with Accu-Cheks to maintain euglycemia aspart insulin every 6 hours, Heme: Normocytic anemia Thrombocytosis Monitor CBC daily. Follow trends. No indication for transfusion of blood products at this time Remains on aspirin 325 mg daily Check peripheral smear. Iron studies revealed low FE/TIBC and elevated ferritin. Likely this is reactive thrombocytosis. Currently on aspirin. If continues to rise we will consider hematology consult ID: Septic shock-resolving C. Difficile Colitis Blood cultures on 01/28 and 01/31 showed coagulase negative staph hominis, likely contamination Sputum, UA and influenza all NGTD s/p zosyn for 7 days to treat pneumonia, d/c on 02/05 repeat blood cultures 02/05 no growth sent sputum culture urine culture 02/05 no growth,02/08 Oliva albicans started on PO Vanc 02/05-present. IV metronidazole added 02/15 Currently on meropenem and fluconazole day #3. Pancultured again 02/13 Infectious disease following actively FEN: Hypomagnesia Replace electrolytes as clinically indicated. 4g mag sulfate IV 1 now. Free water 100 cc every 6 hours MSK PT evaluate and treat DERM: Diffuse macular papular rash likely secondary to cefepime resolving Treated with amlodipine, diphenhydramine and methylprednisolone succinate. Added cefepime to adverse reaction with rash Access: - 01/29 - 02/05 right SC TLC - 02/04 Nance for urinary retention Prophylaxis -GI-famotidine -DVT SCD/heparin drip on hold due to bleeding. Subcutaneous heparin Level 2 follow-up
[2018-02-17] MEDS ORDERED: Magnesium Sulfate Inj 4 GM in Sodium Chlor 0.9% Inj 92 ML IV.SIG ONE (14:00)
[2018-02-17] MEDS ORDERED: Phenylephrine Inj 160 MG in Sodium Chlor 0.9% Inj 484 ML IV.CONT PRN (14:00)
--- NOTE | 2018-02-17 14:35 | XR ---
EXAM DATE: 02/17/2018 2:09 PM EDT AGE/SEX: 32 years / Male INDICATIONS: Status post bronchoscopy. CLINICAL DATA: This is the patient's subsequent encounter. Patient reports that signs and symptoms h ave been present for 1 week and indicates a pain score of Nonresponsive. MEDICAL/SURGICAL HISTORY: Non-responsive. Non-responsive. COMPARISON: [facility] – [place], CHEST 1V SINGLE AP, 02/17/2018. . FINDINGS: Persistent patchy opacities are noted within the right upper lung and left lung base consistent with probable pneumonia. Tracheostomy tube has its tip 3 cm above the matt. The heart is stable. CONCLUSION: Persistent patchy opacities within the right upper lung and left lung base consistent with probable p neumonia. Electronically signed by: Bradford Cardoso MD 02/17/2018 2:34 PM EDT
--- NOTE | 2018-02-17 14:35 | P.PCN ---
Date of procedure: 02/17/18 Pre-op diagnosis: Acute respiratory failure/fever Post-op diagnosis: same Procedure: DATE: 02/17/2018 Fiberoptic Bronchoscopy/diagnostic and therapeutic INDICATION: Persistent fevers, right upper lobe infiltrate CONSENT Informed consent for procedure was obtained from mother. DESCRIPTION OF THE PROCEDURE The patient was placed in supine position. Patient is currently on full drip at 50 mcg/kg/min, total drip at 1050 roxanne grams an hour and midazolam drip at 10 mg an hour. ACV ventilation with FiO2 at 100%. Patient received 20 mg etomidate and 50 mg rocuronium. I entered the #8 Shiley tracheostomy tube with fiberoptic bronchoscope. Thick secretions noted through the cannula. These were suctioned clear. At the right mainstem, thick copious secretions noted. The right upper lobe and lavaged with 30 cc sterile saline which was sent in a Lukens trap for sample evaluation see orders. The right middle lobe and lower lobe were suctioned thick white creamy secretions. The scope was withdrawn to matt and evaluate the lingula/left upper lobe and left lower lobe. Mucosa was normal. No bleeding or masses are noted. The scope was withdrawn. Saturations remained about 100% at all times. No complications noted.. ESTIMATED BLOOD LOSS: Minimal COMPLICATIONS: No apparent complications. STAT chest x-ray no pneumothorax
[2018-02-18] MEDS: Insulin NovoLOG Aspart Correctional Sugar Inj SQ SCH ×6 (01:01→21:52)
[2018-02-18] MEDS: Oral Hygiene Kit OROPHARYNG SCH ×4 (01:01→16:33)
[2018-02-18] MEDS: Midazolam 50 MG/50 ML Inj 50 MG/50 ML BAG IV.CONT PRN ×4 (03:04→20:34)
[2018-02-18] MEDS: Propofol 1000 mg/100 ml Inj 1,000 MG/100 ML BOTTLE IV.CONT PRN ×5 (03:41→20:03)
[2018-02-18] MEDS: fentaNYL 10 mcg/mL Premix Drip 2,500 MCG/250 ML BAG IV.SIG PRN ×2 (03:42→12:44)
[2018-02-18 06:17] LABS: Baso # (Auto) 0.1 th/mm3 (0.0-0.2); Baso % (Auto) 1.5 % (0.0-2.0); Eos # (Auto) 0.6 th/mm3 (0.0-0.4); Eos % (Auto) 6.6 % (0.0-4.0); Hematocrit 22.4 % (39.0-51.0); Hemoglobin 7.5 gm/dL (13.0-17.0); Lymph # (Auto) 1.5 th/mm3 (1.0-4.8); Lymph % (Auto) 16.8 % (9.0-44.0); Mean Corpuscular HGB Conc 33.7 % (32.0-36.0); Mean Corpuscular Hemoglobin 33.3 pg (27.0-34.0); Mean Corpuscular Volume 98.9 fL (80.0-100.0); Mean Platelet Volume 7.6 fL (7.0-11.0); Mono # (Auto) 1.1 th/mm3 (0.0-0.9); Mono % (Auto) 11.6 % (0.0-8.0); Neut # (Auto) 5.8 th/mm3 (1.8-7.7); Neut % (Auto) 63.5 % (16.0-70.0); Platelet Count 1063 th/mm3 (150-450); Red Blood Count 2.26 mil/mm3 (4.50-5.90); Red Cell Distribution Width 16.3 % (11.6-17.2); White Blood Count 9.1 th/mm3 (4.0-11.0)
[2018-02-18 06:32] LABS: Anion Gap 11 meq/L (5-15); Blood Urea Nitrogen 8 mg/dL (7-18); Calcium 9.4 mg/dL (8.5-10.1); Carbon Dioxide 24.4 meq/L (21.0-32.0); Chloride 107 meq/L (98-107); Glomerular Filtration Rate Greater Than 89 mL/min (>89); Glucose,Random 107 mg/dL (74-106); Magnesium 1.8 mg/dL (1.5-2.5); Phosphorus 4.2 mg/dL (2.5-4.9); Sodium 142 meq/L (136-145)
[2018-02-18 07:32] LABS: Eosinophils 5 % (0-4); Lymphocytes 10 % (9-44); Monocytes 9 % (0-8); Myelocytes 5 % (0-0); Platelet Morphology Normal (Normal)
[2018-02-18] MEDS: Chlorhexidine 0.12% Oral Kit 15 ML UDC OROPHARYNG SCH ×2 (07:44→20:02)
[2018-02-18] MEDS: Senna/Docusate Sodium 8.6/50 MG Tablet PO SCH ×2 (08:23→21:55)
[2018-02-18] MEDS: Famotidine 20 MG Tablet G-TUBE SCH ×2 (08:23→20:00)
[2018-02-18] MEDS: levETIRAcetam 500 MG Tablet NG/OG SCH ×2 (08:23→20:00)
[2018-02-18] MEDS: Heparin - SQ 10,000 UNITS/ML Vial SQ SCH ×2 (08:23→20:03)
[2018-02-18] MEDS: QUEtiapine 100 MG Tablet NG/OG SCH ×2 (08:23→20:00)
[2018-02-18] MEDS: Aspirin 325 MG Tablet PO SCH (08:23)
[2018-02-18] MEDS: Fluconazole 100 MG Tablet PO SCH (08:25)
[2018-02-18] MEDS: Carboxymethylcellulose 0.5% Opth Drops 15 ML Bottle EACH EYE SCH ×2 (08:26→21:56)
--- NOTE | 2018-02-18 11:12 | P.PNCC ---
Subjective Subjective Remarks/Hospital Course: This is a 32-year-old male. Admission 01/28/2018. Past medical history includes seizure disorder/noncompliant with levetiracetam, previous EtOH sober for 4 weeks, anorexia, gastroesophageal reflux disease and chronic pancreatitis. Patient presented to [facility] 01/28/2018 with a two-day history of nausea vomiting and diarrhea. Patient's mother/discussed at bedside stated she had just had a "stomach flu" which she has currently recovered. Mom states that the patient has become fairly dehydrated is been having some cramping of his hands. She is worried that he is getting dehydrated and his potassium might begin low. He was unable to tolerate a banana so she gave him some potassium pills p.o. which she also did not tolerate and threw up. Sober 4 weeks according to mother. Patient was noted to have a low potassium at 2.0. Creatinine of 4.0. This is in line with his previous hospitalizations for acute dehydration. Lipase was slightly elevated. Patient does have a history of seizure disorder which is not compliant with levetiracetam. ED physician was called into room because the RN believed he had a seizure. Patient was unresponsive. Mother states this was not like any seizure that she had seen. Pulses not palpable therefore CPR was initiated. Initial rhythm was V. fib. Patient received amiodarone, lidocaine, epinephrine, bicarbonate, magnesium during the 35 minute code with return of spontaneous circulation after 35 minutes. Pupils are about 9 mils bilaterally and 6. When I saw the patient patient was actively thrashing moving all 4 extremities spontaneously but not to command. Pupils are round 8 mm bilaterally and nonreactive. Brain CT revealed no acute findings. CT thorax revealed a left upper and lower lobe. CT abdomen pelvis pending at time of dictation. Likely, troponin pending. EKG revealed incomplete right bundle block with ST depression in the inferior and lateral leads. Cardiology consulted. They will evaluate after stat echocardiogram and troponins been completed. Potassium will be replaced pending [facility] 01/29: persistently in shock. following commands this AM. trop uptrended overnight and now > 40. on levo @ 10, vasopressin. bedside echo with persistence of his global severe LV systolic dysfunction. IVC dilated without respiratory variation. initially attempted therapeutic hypothermia, but became arrhythmogenic and neurologic exam improved and now following commands, so hypothermia aborted. persistently hypokalemic and hypophosphatemic this AM. in addition, remains with severe metabolic alkalosis. 01/30: Troponin trending down, continues to have severe hypokalemia and metabolic alkalosis. Creatinine continues to trend up, only produced 200 cc of urine over the past 24 hours. 01/31: Patient seen by nephrology yesterday and given bumex, urine output dramatically increased, potassium improved with aggressive repletion, pressors now off and dobutamine at 5. 02/01: No issues overnight. Patient tolerated dobutamine at 2 yesterday, discontinued this morning. Switching propofol to precedex and would like to start SBTs today. Overall improved. 02/02: Tolerated switch to precedex yesterday and was on bipap 05/06 for several hours yesterday afternoon, placed back on AC overnight to avoid respiratory fatigue. 02/03: Patient had no overnight events, tolerated SBT x 5 hours yesterday. Significantly agitated this morning during sedation vacation. 02/04: Patient still struggles with agitation when we lighten sedation. 02/05: Temp 103F this morning, no obvious source of infection. Needs to have PICC line placed today. 02/06: reintubated yesterday. overnight persistently febrile. this morning appears in distress- tachypneic on the ventilator, acidotic. potassium up to 5.8 despite medical management. bedside echo with improving LVEF and completely collapsed IVC. no pericardial effusion. lung ultrasound without effusions. 02/07: Remains sedated, orally intubated on mechanical ventilation. On propofol fentanyl and Versed drips. Transfuse 1 unit PRBCs earlier today for drop in hemoglobin. 02/08: Remains sedated, orally intubated on mechanical ventilation. On propofol fentanyl and Versed drips. Awaiting tracheostomy which is scheduled for later today. 02/09: Overnight, new onset of maculopapular rash noted. Noted discontinuation of cefepime 02/08. Received 1 dose diphenhydramine overnight. 02/10: Afebrile. Discussed with mom at bedside. Follows commands weakly bilateral upper and lower extremities. Diffuse macular papular rash improved lower extremities. Appears stable and upper thorax. On Famotidine, methylprednisolone and diphenhydramine 02/11: Afebrile. Opens eyes to voice. Following commands weakly bilateral upper lower extremity. On propofol 50 roxanne grams per kilogram, a fentanyl drip at 250 mg of midazolam drip at 6 mg an hour due to "agitation" overnight. Will wean. Increased quetiapine to 100 twice daily. 02/12: remains on vent at this time, sedated. Follows commands all extremities weakly. RN states that she increase her sedation as the patient was tachycardic and hypotensive. I will start labetalol 200 mg twice daily and attempt sedation wean. 02/13: T-max 101.5. Remains on fentanyl drip at 250 roxanne grams an hour, midazolam drip at 7 mg an hour and fentanyl drip at 250 roxanne grams an hour. Started labetalol 200 mg twice a yesterday but now hypotensive. Tube feeds currently at 10 cc an hour. 02/14: T-max 100.3. Remains on fentanyl drip at 250 roxanne grams an hour, midazolam drip at 7 mg and fentanyl drip 250 mcg an hour. 2 feedings currently at [address] pulmonary angiogram today per cardiology request. Will discuss some other possible transfer to select hospital today. 02/15: T-max 100.3. Tube feedings currently at [address] pulmonary angiogram revealed right upper lobe infiltrate/new. No pulmonary embolism. Opens eyes to voice. 02/16: T-max 100.7. Arousable to voice and close his eyes. Noted increasing platelets currently 876. Will check iron studies and peripheral smear. Again continued difficulty weaning off IV sedation due to severe agitation. 02/17: Remains febrile. Plan for bronchoscopy right upper lobe infiltrate. Please continue to increase. Tolerating tube feeds at 50 cc an hour. Positive BM. SUBJECTIVE: 02/18: T-max 103.2. Currently afebrile. Bronchoscopy yesterday Gram stain negative. Tube feeds at goal. Objective Vital Signs / I&O: Vital Signs 02/17/18 11:32 02/17/18 12:00 02/17/18 13:29 Temperature 99.5 F Pulse Rate 95 H Respiratory Rate 18 17 Blood Pressure 84/52 L Pulse Oximetry 95 99 100 02/17/18 14:00 02/17/18 15:00 02/17/18 15:53 Temperature Pulse Rate 102 H 100 H Respiratory Rate 14 14 Blood Pressure Pulse Oximetry 100 02/17/18 16:00 02/17/18 18:00 02/17/18 20:00 Temperature 99.2 F 103.2 F H Pulse Rate 99 H 104 H 125 H Respiratory Rate 16 21 Blood Pressure 95/65 L 163/88 H Pulse Oximetry 100 100 02/17/18 21:04 02/17/18 22:00 02/18/18 00:00 Temperature 102.4 F H Pulse Rate 121 H 123 H 109 H Respiratory Rate 26 H 20 Blood Pressure 97/54 L Pulse Oximetry 97 100 02/18/18 00:56 02/18/18 02:00 02/18/18 04:00 Temperature 99.9 F H Pulse Rate 112 H 104 H Respiratory Rate 17 17 Blood Pressure 96/66 L Pulse Oximetry 100 100 02/18/18 04:14 02/18/18 06:00 02/18/18 08:00 Temperature 99.0 F Pulse Rate 103 H 114 H 114 H Respiratory Rate 24 18 Blood Pressure 117/77 Pulse Oximetry 100 100 02/18/18 10:00 02/18/18 10:10 Temperature Pulse Rate 114 H Respiratory Rate 24 Blood Pressure Pulse Oximetry 100 Intake & Output 02/17/18 02/18/18 02/18/18 18:59 06:59 18:59 Intake Total 1471 / 1471 2600 / 2600 250 / 250 Output Total 1300 / 1300 1800 / 1800 Balance 171 / 171 800 / 800 250 / 250 Weight 86.5 kg Intake: IV 1250 / 1250 1150 / 1150 250 / 250 Versed Inj 50 mg In 50 ml @ 2 150 / 150 100 / 100 50 / 50 MG/HR 2 mls/hr IV.CONT TITRATE PRN Rx#:[id number] Diprivan 1000 mg/100 ml Inj 1, 300 / 300 300 / 300 100 / 100 000 mg In 100 ml @ 5 MCG/KG/MIN 2.58 mls/hr IV.CONT TITRATE PRN Rx#:[id number] Magnesium Sulfate Inj 4 GM In 100 / 100 NS Inj 92 ML @ 25 mls/hr IV.SIG ONCE ONE Rx#:[id number] Merrem Inj 1,000 MG In NS Inj 100 / 100 200 / 200 100 ML @ 200 mls/hr IV.SIG Q8H GERMAINE Rx#:[id number] fentaNYL 10 mcg/mL Premix Drip 500 / 500 250 / 250 2,500 mcg In 250 ml @ 50 MCG/HR 5 mls/hr IV.SIG TITRATE PRN Rx #:[id number] Flagyl 500 MG Inj 100 ML @ 100 200 / 200 200 / 200 100 / 100 mls/hr IV.SIG Q6H GERMAINE Rx#: [id number] Oral 342 / 342 Tube Feeding 221 / 221 658 / 658 Tube Irrigant 50 / 50 Water Bolus Amount 400 / 400 Output: Urine 1800 / 1800 Urine Amount (Catheter) 1300 / 1300 Indwelling Urethral Catheter 1300 / 1300 Other: Date of Last Bowel Movement 02/17/18 02/17/18 02/17/18 # Bowel Movements 1 # Incontinent Bowel Movements 3 Result Diagrams: 02/18/18 05:22 02/18/18 05:22 Other Results: Microbiology 02/13/18 13:16 Blood - Peripheral Aerobic Blood Culture - Final No growth in 5 days 02/13/18 13:16 Blood - Peripheral Anaerobic Blood Culture - Final No growth in 5 days 02/13/18 13:16 Blood - Peripheral Aerobic Blood Culture - Final No growth in 5 days 02/13/18 13:16 Blood - Peripheral Anaerobic Blood Culture - Final No growth in 5 days 02/17/18 13:20 Bronchial Washings - Right Upper Lobe Fungal Smear - Final No fungal elements seen 02/17/18 13:20 Bronchial - Right Upper Lobe Gram Stain - Final 02/13/18 11:35 Sputum - Endotracheal Gram Stain - Final 02/13/18 11:35 Sputum - Endotracheal Sputum Culture - Final Moderate growth normal respiratory pepito 02/12/18 08:30 Catheterized Urine Urine Culture - Final No growth in 48 hours 02/05/18 22:13 Blood - Peripheral Aerobic Blood Culture - Final No growth in 5 days 02/05/18 22:13 Blood - Peripheral Anaerobic Blood Culture - Final No growth in 5 days 02/05/18 22:18 Blood - Peripheral Aerobic Blood Culture - Final No growth in 5 days 02/05/18 22:18 Blood - Peripheral Anaerobic Blood Culture - Final No growth in 5 days 02/08/18 17:00 Catheterized Urine Urine Culture - Final Oliva albicans 02/06/18 08:25 Sputum - Endotracheal Gram Stain - Final 02/06/18 08:25 Sputum - Endotracheal Sputum Culture - Final Heavy growth normal respiratory pepito 02/06/18 03:00 Catheterized Urine Urine Culture - Final No growth in 48 hours 02/05/18 10:30 Stool Stool Occult Blood (ROXANNE) - Final Hemoccult negative 01/31/18 15:00 Blood - Peripheral Aerobic Blood Culture - Final Staphylococcus epidermidis 01/31/18 15:00 Blood - Peripheral Anaerobic Blood Culture - Final No growth in 5 days 01/31/18 14:45 Blood - Peripheral Aerobic Blood Culture - Final No growth in 5 days 01/31/18 14:45 Blood - Peripheral Anaerobic Blood Culture - Final No growth in 5 days 01/28/18 17:55 Blood - Peripheral Aerobic Blood Culture - Final Staphylococcus hominis-hominis 01/28/18 17:55 Blood - Peripheral Anaerobic Blood Culture - Final No growth in 5 days 01/28/18 17:50 Blood - Peripheral Aerobic Blood Culture - Final No growth in 5 days 01/28/18 17:50 Blood - Peripheral Anaerobic Blood Culture - Final No growth in 5 days 01/30/18 16:01 Catheterized Urine Urine Culture - Final No growth in 48 hours 01/28/18 13:55 Sputum - Endotracheal Gram Stain - Final 01/28/18 13:55 Sputum - Endotracheal Sputum Culture - Final Heavy growth normal respiratory pepito 01/28/18 13:49 Urine - Catheterized Urine Legionella Antigen - Final Presumptive negative for Legionella pneumophila serogroup 1 antigen in urine, suggesting no recent or recurrent infection. Infection due to Legionella cannot be ruled out since other serogroups and species may cause disease, antigen may not be present in urine in early infection, and the level of antigen present in the urine may be below the detection limit of the test. 01/28/18 13:49 Urine - Catheterized Urine Streptococcus pneumoniae Antigen ( M - Final Presumptive negative for streptococcus pneumoniae antigen, suggesting no current or recent infection. Infection due to Streptococcus pneumoniae cannot be ruled out since the antigen present in the sample may be below the detection limit of the test. 01/28/18 13:51 Nasal Aspirate Influenza Types A,B Antigen - Final Negative for FLU A and B antigen Infection due to influenza A or B cannot be ruled out since the antigen present in the sample may be below the detection limit of the test. Imaging: Abdomen/Pelvis CT 01/28/18 00:00 CONCLUSION: 1. There is a new finding of presumed pneumobilia in the left hepatic lobe. Is there a history of recent instrumentation? Portal venous gas is not entirely excluded. 2. Mild induration of the peripancreatic fat proximally suggest mild acute pancreatitis. 3. Small fat-containing umbilical hernia. 4. Pulmonary consolidation is noted as above. 5. Mild gaseous distention of the stomach. Chest CT 01/28/18 00:00 CONCLUSION: 1. Bilateral consolidation most pronounced in the left lower lobe and left upper lobe posteriorly. Chest X-Ray 01/28/18 10:15 CONCLUSION: Endotracheal tube as above. Left lung consolidation. Head CT 01/28/18 10:19 CONCLUSION: 1. Negative CT Head non contrast. . Chest X-Ray 01/29/18 09:13 CONCLUSION: Right subclavian line as above. Gallbladder Ultrasound 01/30/18 00:00 CONCLUSION: 1. Unremarkable study. Chest X-Ray 01/30/18 05:00 CONCLUSION: Stable diffuse left lung airspace consolidation with bibasilar opacities likely representing atelectasis and possible small effusions. Abdomen/Bladder Ultrasound 01/30/18 15:17 CONCLUSION: 1. Negative renal sonogram. Chest X-Ray 02/04/18 05:00 CONCLUSION: Persistent consolidation in the lower lungs, slightly improved in the left lower lung. Chest X-Ray 02/05/18 00:00 CONCLUSION: ET tube is in excellent position. Lungs still mostly clear Chest X-Ray 02/06/18 01:30 CONCLUSION: Subsegmental airspace disease improved from February 05. Endotracheal tube and nasogastric tube in good position. Head CT 02/06/18 03:50 CONCLUSION: 1. No acute intracranial abnormalities. . Abdomen X-Ray 02/08/18 00:00 CONCLUSION: NG tube placement as above. Chest X-Ray 02/08/18 14:56 CONCLUSION: 1. Consolidating infiltrate has developed in the right midlung and left base 2. Interval placement of a tracheostomy tube and removal of endotracheal tube. 3. Otherwise stable chest. Head MRI 02/09/18 00:00 CONCLUSION: 1. Normal MRI of the brain. 2. Sinusitis and mastoiditis. Chest X-Ray 02/12/18 06:00 CONCLUSION: 1. Improving airspace consolidation in the right upper lung zone. 2. Persistent patchy airspace disease in the left lower lung zone. Chest CTA 02/14/18 00:00 CONCLUSION: No evidence of pulmonary embolism. New right upper lobe pneumonia. Improving aeration on the left. Chest X-Ray 02/14/18 06:00 CONCLUSION: No significant change. Chest X-Ray 02/17/18 00:00 CONCLUSION: Persistent patchy opacities within the right upper lung and left lung base consistent with probable pneumonia. Chest X-Ray 02/17/18 06:00 CONCLUSION: No significant change right upper lobe and left midlung pneumonia. Objective Remarks: GENERAL: 32-year-old male currently on ventilator via tracheostomy 8.0 Shiley HEENT: NCAT, pupils are equal round react about 3 meals bilaterally. Extraocular muscles are intact. NECK: Trachea midline. Tracheostomy site is clean dry and intact CHEST: Few coarse crackles appreciated no wheezing. CARDIOVASCULAR: RRR. S1, S2 no S4. Without murmur ABDOMEN: Soft, non-tender in all quadrants, fresh PEG tube site is clean dry and intact with no bleeding or erythema : Positive scrotal edema MUSCULOSKELETAL: Warm and well perfused, maculopapular rash on thorax, bilateral upper and lower extremities. 1+ bilateral upper and lower extremity peripheral edema NEUROLOGICAL: Follows commands by squeezing bilateral upper and bilateral lower extremities weakly. Positive gag and cough. Talks over trach. Assessment and Plan - Assessment and Plan Plan: Neuro/Psych: Seizure disorder NOS History of EtOH sober 4 weeks History of anorexia/bulimia Acute metabolic encephalopathy Sedated on propofol at 50 mcg/kg/min fentanyl drip at 250 mcg an hour, Midazolam drip at 10 mg an hour Goal of RASS 0, start weaning sedation Continue levetiracetam 500 BID (home dose) Home Quetiapine currently at 100 mg twice daily, increase to 200 twice daily. 0xycodone liquid 15 mg every 6 hours Valproic acid 250 milligrams twice daily Patient has a previous history of heavy EtOH abuse and bulimia as per mother-- continue thiamine Continue thiamine 100 mg twice daily Adding low-dose clonidine 0 point milligrams twice daily. Monitor blood pressure closely CV: In-hospital cardiac arrest V. fib arrest Cardiogenic Shock-- resolved Severe LV systolic dysfunction- resolving. Septic shock Evaluated by Dr. Townsend. No further cardiac workup planned at this time. Echo 01/28: severe LV systolic dysfunction, EF 20-25%. mildly depressed RV function. no valvular lesions. continue daily ASA 325 mg daily. Continued PO thiamine supplementation for ? beriberi Echocardiogram 02/14 - the left ventricular systolic function is normal with an estimated ejection fraction in the range of 60-65%. Normal left ventricular size. Wall thickness is normal. No regional wall motion abnormalities are present. . Resp: Acute hypoxic respiratory failure- recurrent. Left upper/lower lobe pulmonary infiltrates-- improving New right upper lobe infiltrate Extubated 02/05, reintubated 02/05 for respiratory failure Status post tracheostomy by Dr. Serna 02/08 Albuterol/ipratropium aerosols every 6 hours with albuterol aerosols every 2 hours as needed for dyspnea vent bundle, hob elevated wean fio2 for goal spo2 > 90% PSV 03/06 at 45%. Attempt T-piece as tolerated. 3 hours 02/13 CT pulmonary angiogram revealed right upper limits. No pulmonary embolus. GI: Elevated lipase/mild pancreatitis-- resolved Left hepatic pneumobilia history of chronic pancreatitis C. Difficile Colitis restarted tube feeds today see orders after PEG tube placement. Jevity 1.5 @ 60 cc an hour per dietary recommendations. Currently at 50 cc an hour By tube famotidine for GI prophylaxis due to rash Docusate serum/senna 1 tablet twice daily for bowel regimen Renal/ : Acute kidney injury-- i resolved Nance replaced 02/04. continue for accurate i/o's. Creatinine peaked around 6, continues to improve, but slowly currently 0.86. Nephrology has signed off Endo: Sliding scale insulin with Accu-Cheks to maintain euglycemia aspart insulin every 6 hours, Heme: Normocytic anemia Thrombocytosis Monitor CBC daily. Follow trends. No indication for transfusion of blood products at this time Remains on aspirin 325 mg daily Check peripheral smear. Iron studies revealed low FE/TIBC and elevated ferritin. Likely this is reactive thrombocytosis. Currently on aspirin. If continues to rise we will consider hematology consult ID: Septic shock-resolving C. Difficile Colitis Blood cultures on 01/28 and 01/31 showed coagulase negative staph hominis, likely contamination Sputum, UA and influenza all NGTD s/p zosyn for 7 days to treat pneumonia, d/c on 02/05 repeat blood cultures 02/05 no growth sent sputum culture urine culture 02/05 no growth,02/08 Oliva albicans Bronc samples 02/17 follow-up started on PO Vanc 02/05-present. IV metronidazole added 02/15 Currently on meropenem and fluconazole day #4. Pancultured again 02/13 Infectious disease following actively FEN: Hypomagnesia Replace electrolytes as clinically indicated. 2g mag sulfate IV 1 now. Free water 100 cc every 6 hours MSK PT evaluate and treat DERM: Diffuse macular papular rash likely secondary to cefepime resolving Treated with amlodipine, diphenhydramine and methylprednisolone succinate. Added cefepime to adverse reaction with rash Access: - 01/29 - 02/05 right SC TLC - 02/04 Nance for urinary retention Prophylaxis -GI-famotidine -DVT SCD/heparin drip on hold due to bleeding. Subcutaneous heparin Level 2 follow-up
[2018-02-18] MEDS: Mag Sulf 1 gm/100 ml Premix 100 ML IV.SIG SCH ×2 (12:39→13:50)
--- NOTE | 2018-02-18 15:36 | P.PNID ---
Subjective Remarks: ID Coverage This is a 32-year-old white male who presented to the emergency department with 2-day history of nausea, vomiting, and diarrhea. The patient ended up intubated after he went into ventricular fibrillation cardiac arrest and was resuscitated. He also was noted to have seizure activity. S/P trach 02/08 Notes reviewed Febrile BP ok Sedated on the vent, on CPAP Cultures reviewed Had bronch done yesterday, results pending White blood cell count is normal. He has loose stools. Stool C diff (+) Antibiotics: IV Flagyl PO Vanco Meropenem Diflucan Lines: Has peripheral IV Lines ok Past Medical History: PAST MEDICAL HISTORY: Alcohol abuse, gastroesophageal reflux disease, hernia, depression, pancreatitis, seizure disorder, left inguinal hernia repair. Allergies/Adverse Reactions: Allergies Sulfa (Sulfonamide Antibiotics) Allergy (Severe, Verified 10/11/17 07:56) hives cefepime Adverse Reaction (Intermediate, Verified 02/15/18 10:55) Rash, Generalized Objective Vital Signs 02/17/18 15:53 02/17/18 16:00 02/17/18 18:00 Temperature 99.2 F Pulse Rate 99 H 104 H Respiratory Rate 14 16 Blood Pressure 95/65 L Pulse Oximetry 100 100 02/17/18 20:00 02/17/18 21:04 02/17/18 22:00 Temperature 103.2 F H Pulse Rate 125 H 121 H 123 H Respiratory Rate 21 26 H Blood Pressure 163/88 H Pulse Oximetry 100 97 02/18/18 00:00 02/18/18 00:56 02/18/18 02:00 Temperature 102.4 F H Pulse Rate 109 H 112 H Respiratory Rate 20 17 Blood Pressure 97/54 L Pulse Oximetry 100 100 02/18/18 04:00 02/18/18 04:14 02/18/18 06:00 Temperature 99.9 F H Pulse Rate 104 H 103 H 114 H Respiratory Rate 17 24 Blood Pressure 96/66 L Pulse Oximetry 100 100 02/18/18 08:00 02/18/18 10:00 02/18/18 10:10 Temperature 99.0 F Pulse Rate 114 H 114 H Respiratory Rate 18 24 Blood Pressure 117/77 Pulse Oximetry 100 100 02/18/18 12:00 02/18/18 14:00 02/18/18 14:03 Temperature 100.2 F H Pulse Rate 118 H 93 H Respiratory Rate 19 18 Blood Pressure 120/69 Pulse Oximetry 100 100 02/18/18 15:27 Temperature Pulse Rate 111 H Respiratory Rate 24 Blood Pressure Pulse Oximetry Intake & Output 02/17/18 02/18/18 02/18/18 18:59 06:59 18:59 Intake Total 1471 / 1471 2600 / 2600 750 / 750 Output Total 1300 / 1300 1800 / 1800 Balance 171 / 171 800 / 800 750 / 750 Weight 86.5 kg Intake: IV 1250 / 1250 1150 / 1150 750 / 750 Versed Inj 50 mg In 50 ml @ 2 150 / 150 100 / 100 100 / 100 MG/HR 2 mls/hr IV.CONT TITRATE PRN Rx#:[id number] Diprivan 1000 mg/100 ml Inj 1, 300 / 300 300 / 300 200 / 200 000 mg In 100 ml @ 5 MCG/KG/MIN 2.58 mls/hr IV.CONT TITRATE PRN Rx#:[id number] Magnesium Sulfate 1 gm/D5W 100 100 / 100 ml Premix 100 ML @ 100 mls/hr IV.SIG Q1H GERMAINE Rx#:[id number] Magnesium Sulfate Inj 4 GM In 100 / 100 NS Inj 92 ML @ 25 mls/hr IV.SIG ONCE ONE Rx#:[id number] Merrem Inj 1,000 MG In NS Inj 100 / 100 200 / 200 100 ML @ 200 mls/hr IV.SIG Q8H GERMAINE Rx#:[id number] fentaNYL 10 mcg/mL Premix Drip 500 / 500 250 / 250 250 / 250 2,500 mcg In 250 ml @ 50 MCG/HR 5 mls/hr IV.SIG TITRATE PRN Rx #:[id number] Flagyl 500 MG Inj 100 ML @ 100 200 / 200 200 / 200 100 / 100 mls/hr IV.SIG Q6H GERMAINE Rx#: [id number] Oral 342 / 342 Tube Feeding 221 / 221 658 / 658 Tube Irrigant 50 / 50 Water Bolus Amount 400 / 400 Output: Urine 1800 / 1800 Urine Amount (Catheter) 1300 / 1300 Indwelling Urethral Catheter 1300 / 1300 Other: Date of Last Bowel Movement 02/17/18 02/17/18 02/17/18 # Bowel Movements 1 # Incontinent Bowel Movements 3 02/17/18 13:20 Bronchial - Right Upper Lobe Gram Stain - Final 02/17/18 13:20 Bronchial - Right Upper Lobe Bronchial Culture - Preliminary No growth in 24 hours 02/13/18 13:16 Blood - Peripheral Aerobic Blood Culture - Final No growth in 5 days 02/13/18 13:16 Blood - Peripheral Anaerobic Blood Culture - Final No growth in 5 days 02/13/18 13:16 Blood - Peripheral Aerobic Blood Culture - Final No growth in 5 days 02/13/18 13:16 Blood - Peripheral Anaerobic Blood Culture - Final No growth in 5 days 02/17/18 13:20 Bronchial Washings - Right Upper Lobe Fungal Smear - Final No fungal elements seen 02/17/18 13:20 Bronchial Washings - Right Upper Lobe Fungal Culture - Pending 02/17/18 13:20 Bronchial Washings - Right Upper Lobe Acid Fast Bacilli Smear - Pending 02/17/18 13:20 Bronchial Washings - Right Upper Lobe Mycobacterial Culture - Pending Lab - Hematology Results 02/17/18 02/18/18 06:36 05:22 WBC 9.2 9.1 RBC 2.20 L 2.26 L Hgb 7.4 L 7.5 L Hct 21.4 L 22.4 L MCV 97.0 98.9 MCH 33.7 33.3 MCHC 34.8 33.7 RDW 16.3 16.3 Plt Count 954 H 1063 H MPV 7.6 7.6 Prelim Diff (Auto) Slide review pending Slide review pending Neut % (Auto) 60.2 63.5 Lymph % (Auto) 18.7 16.8 [place] % (Auto) 11.8 H 11.6 H Eos % (Auto) 8.3 H 6.6 H Baso % (Auto) 1.0 1.5 Neut # (Auto) 5.5 5.8 Lymph # (Auto) 1.7 1.5 [place] # (Auto) 1.1 H 1.1 H Eos # (Auto) 0.8 H 0.6 H Baso # (Auto) 0.1 0.1 WBC Differential Manual diff final Manual diff final Seg Neuts % (Manual) 45 59 Band Neuts % (Manual) 12 H 10 H Lymphocytes % (Manual) 13 10 Monocytes % (Manual) 9 H 9 H Eosinophils % (Manual) 8 H 5 H Basophils % (Manual) 1 2 Metamyelocytes % (Man) 4 H Myelocytes % (Man) 8 H 5 H Abs Neuts (Manual) 6.3 6.7 Differential Comment . . Platelet Estimate High H High H Platelet Morphology Normal Normal Lab - Chemistry Results 02/16/18 02/16/18 02/16/18 15:44 19:58 23:04 Sodium Potassium Chloride Carbon Dioxide Anion Gap BUN Creatinine Estimated GFR POC Glucose 86 96 107 Random Glucose Calcium Phosphorus Magnesium 02/17/18 02/17/18 02/17/18 06:36 08:17 12:01 Sodium 141 Potassium 3.9 Chloride 108 H Carbon Dioxide 23.6 Anion Gap 9 BUN 10 Creatinine 0.64 Estimated GFR Greater than 89 POC Glucose 101 98 Random Glucose 115 H Calcium 9.3 Phosphorus 3.9 Magnesium 1.3 L 02/17/18 02/17/18 02/18/18 15:26 21:05 00:52 Sodium Potassium Chloride Carbon Dioxide Anion Gap BUN Creatinine Estimated GFR POC Glucose 83 90 98 Random Glucose Calcium Phosphorus Magnesium 02/18/18 02/18/18 02/18/18 04:48 05:22 07:42 Sodium 142 Potassium 4.0 Chloride 107 Carbon Dioxide 24.4 Anion Gap 11 BUN 8 Creatinine 0.65 Estimated GFR Greater than 89 POC Glucose 113 H 101 Random Glucose 107 H Calcium 9.4 Phosphorus 4.2 Magnesium 1.8 02/18/18 12:48 Sodium Potassium Chloride Carbon Dioxide Anion Gap BUN Creatinine Estimated GFR POC Glucose 108 Random Glucose Calcium Phosphorus Magnesium Imaging: ITS Impressions Abdomen/Pelvis CT 01/28/18 00:00 CONCLUSION: 1. There is a new finding of presumed pneumobilia in the left hepatic lobe. Is there a history of recent instrumentation? Portal venous gas is not entirely excluded. 2. Mild induration of the peripancreatic fat proximally suggest mild acute pancreatitis. 3. Small fat-containing umbilical hernia. 4. Pulmonary consolidation is noted as above. 5. Mild gaseous distention of the stomach. Chest CT 01/28/18 00:00 CONCLUSION: 1. Bilateral consolidation most pronounced in the left lower lobe and left upper lobe posteriorly. Gallbladder Ultrasound 01/30/18 00:00 CONCLUSION: 1. Unremarkable study. Abdomen/Bladder Ultrasound 01/30/18 15:17 CONCLUSION: 1. Negative renal sonogram. Head CT 02/06/18 03:50 CONCLUSION: 1. No acute intracranial abnormalities. . Abdomen X-Ray 02/08/18 00:00 CONCLUSION: NG tube placement as above. Head MRI 02/09/18 00:00 CONCLUSION: 1. Normal MRI of the brain. 2. Sinusitis and mastoiditis. Chest CTA 02/14/18 00:00 CONCLUSION: No evidence of pulmonary embolism. New right upper lobe pneumonia. Improving aeration on the left. Chest X-Ray 02/17/18 06:00 CONCLUSION: No significant change right upper lobe and left midlung pneumonia. Physical Exam: GENERAL: Sedated on the ventilator. On CPAP. NAD HEENT: [place] conjunctiva, no icterus, moist [place] NECK: Trach site ok LUNGS: Decreased at bases. Rhonchi at the right base. HEART: Regular S1 and S2. No murmurs heard. ABDOMEN: Bowel sounds diminished. Soft. No reaction to palpation. EXTREMITIES: No clubbing, cyanosis; UE edematous, pitting edema both feet SKIN: rash not evident NEUROLOGIC: Sedated PSYCHIATRIC: Unable to fully assess. : Cath in place Assessment and Plan - Plan IMPRESSION: 1. Possible sepsis. However cultures have been negative. Previous staph coagulase positive blood culture felt to be contamination. Subsequent cultures negative. No clear source. Temperature improved. 2. Skin rash. Likely drug related. Probably cefepime was associated. 3. Pneumonia. Suspect aspiration. 4. Status post cardiac arrest. 5. Acute respiratory failure. Patient now post tracheostomy. 6. Acute renal failure. Improved. 7. Seizure disorder. 8. Diarrhea. Questionable antibiotic associated. 9. Oliva UTI. 10. Leukocytosis improved. 11. C. difficile colitis. RECOMMENDATIONS: Continue Diflucan. Continue Meropenem. On intravenous Flagyl for C. difficile. Continue p.o. vancomycin for C. difficile. Follow C/S - if nothing else on C/S, will deescalate Abx and just continue Rx for C diff Monitor progress Follow temps
[2018-02-19] MEDS: Propofol 1000 mg/100 ml Inj 1,000 MG/100 ML BOTTLE IV.CONT PRN ×2 (00:02→03:32)
[2018-02-19] MEDS: Insulin NovoLOG Aspart Correctional Sugar Inj SQ SCH ×6 (00:03→20:34)
[2018-02-19] MEDS: Oral Hygiene Kit OROPHARYNG SCH ×4 (00:04→17:09)
--- NOTE | 2018-02-19 04:04 | MB ---
cc: Rich Pruitt MD DATE: 02/18/2018 REASON FOR CONSULTATION: Consult requested by Dr. Bird for evaluation of thrombocytosis. HISTORY OF PRESENT ILLNESS: Srinivas is a 32-year-old male. He has a tracheostomy and on the ventilator. He is unable to give any history. History is obtained through the review of the records. The patient came into the hospital on 01/28/2018 with nausea, vomiting, diarrhea, duration 2 days. In the emergency room, the patient had a cardiac arrest and he was successfully resuscitated. He was intubated. The patient was unable to wean off of the ventilator. One time, he was extubated and needed reintubation. He now has a tracheostomy tube. The patient has multiple problems since he has been in the hospital. He has Clostridium difficile colitis and has been on the medication. ID is on the case. His platelet count went up to more than 1 million today. I have been asked to see him for further evaluation. The patient is unable to give any history. When the patient came into the hospital on 01/28/2018, his platelet count was normal. The platelet count went down for a few days and then became normal up until 02/10/2018. Since then, the patient's platelet count continues to rise and now it is 1063. The patient's mother was present at bedside. She denies any previous history of thrombocytosis. REVIEW OF SYSTEMS: Not possible. PAST MEDICAL HISTORY: Seizure disorder, alcoholism, depression, gastroesophageal reflux disease, pancreatitis. PAST SURGICAL HISTORY: Left inguinal hernia repair. ALLERGIES: NONE REPORTED. FAMILY HISTORY: No blood disorder. SOCIAL HISTORY: The patient does not smoke cigarettes. He drinks alcohol. PHYSICAL EXAMINATION: GENERAL: He is a well-developed, chronically ill-appearing male, who is on the ventilator. VITAL SIGNS: Temperature 98.9, heart rate is 113. Blood pressure 126/76. HEENT: Sclerae are anicteric. Oral mucosa is dry. NECK: Tracheostomy tube noted. LUNGS: Clear to auscultation anteriorly. HEART: Tachycardia with no murmur. ABDOMEN: Soft. EXTREMITIES: No edema. NEUROLOGIC: The patient gets agitated when he wakes up, according to the patient's nurse. SKIN: No significant lesions noted. ASSESSMENT: 1. Thrombocytosis. This is most likely reactive thrombocytosis due to severe colitis and pneumonia. I do not think that he has essential thrombocythemia. 2. Clostridium difficile colitis. 3. Pneumonia PLAN: I have reviewed his available records, and I have discussed with the patient's mother regarding the causes of thrombocytosis. When the patient came into the hospital on 01/28/2018, his platelet count was 387. The platelet count after a couple of days went down slightly to 129 and then it recovered and remained completely normal until 02/10/2018. Since then, the platelets continue to go up. Yesterday, they were 954 and today they are 1063. Looking at this pattern, this is most likely reactive thrombocytosis. I do not think that he has essential thrombocythemia. I do not recommend any cytoreductive therapy to bring down the platelets, as this is not from essential thrombocythemia. The most likely cause of reactive thrombocytosis is severe colitis and pneumonia. The patient is on the antibiotics. Once the underlying condition improves, then the platelet count will also improve. I will check the C-reactive protein, sedimentation rate, and JAK2 mutation. The patient's mom stated that her mother is retired RN and she wanted to know the cause of thrombocytosis. I explained to her both conditions, reactive thrombocytosis versus essential thrombocythemia. She wrote both conditions and she will talk to her mother, who is a retired RN. Recommendation is to monitor CBC. I have discussed the case with the patient's nurse. Thank you for asking my opinion. MD LUCITA Moreno/sugey , 12:11 AM , 12:24 AM MARTIN
[2018-02-19 05:03] LABS: Anion Gap 10 meq/L (5-15); Blood Urea Nitrogen 7 mg/dL (7-18); Calcium 9.4 mg/dL (8.5-10.1); Carbon Dioxide 25.2 meq/L (21.0-32.0); Chloride 105 meq/L (98-107); Glomerular Filtration Rate Greater Than 89 mL/min (>89); Glucose,Random 102 mg/dL (74-106); Magnesium 1.6 mg/dL (1.5-2.5); Phosphorus 3.4 mg/dL (2.5-4.9); Sodium 140 meq/L (136-145)
[2018-02-19 05:20] LABS: Potassium 4.4 meq/L (3.5-5.1)
[2018-02-19] MEDS: Chlorhexidine 0.12% Oral Kit 15 ML UDC OROPHARYNG SCH ×2 (07:59→20:34)
--- NOTE | 2018-02-19 09:16 | P.PNID ---
Subjective Remarks: ID Coverage This is a 32-year-old white male who presented to the emergency department with 2-day history of nausea, vomiting, and diarrhea. The patient ended up intubated after he went into ventricular fibrillation cardiac arrest and was resuscitated. He also was noted to have seizure activity. S/P trach 02/08 Notes reviewed D/W RN temps better He is off sedation - very restless, has wrist restraints On T-piece BP ok Cultures reviewed Had bronch done yesterday, results pending White blood cell count is normal. He has loose stools. Stool C diff (+) Antibiotics: IV Flagyl PO Vanco Meropenem Diflucan Lines: Has peripheral IV Lines ok Past Medical History: PAST MEDICAL HISTORY: Alcohol abuse, gastroesophageal reflux disease, hernia, depression, pancreatitis, seizure disorder, left inguinal hernia repair. Allergies/Adverse Reactions: Allergies Sulfa (Sulfonamide Antibiotics) Allergy (Severe, Verified 10/11/17 07:56) hives cefepime Adverse Reaction (Intermediate, Verified 02/15/18 10:55) Rash, Generalized Objective Vital Signs 02/18/18 10:00 02/18/18 10:10 02/18/18 12:00 Temperature 100.2 F H Pulse Rate 114 H 118 H Respiratory Rate 24 19 Blood Pressure 120/69 Pulse Oximetry 100 100 02/18/18 14:00 02/18/18 14:03 02/18/18 15:27 Temperature Pulse Rate 93 H 111 H Respiratory Rate 18 24 Blood Pressure Pulse Oximetry 100 02/18/18 16:00 02/18/18 16:08 02/18/18 18:00 Temperature 98.9 F Pulse Rate 113 H 113 H Respiratory Rate 19 13 Blood Pressure 126/76 Pulse Oximetry 100 100 02/18/18 19:12 02/18/18 20:00 02/18/18 20:23 Temperature 99.6 F Pulse Rate 110 H 112 H Respiratory Rate 26 H 22 26 H Blood Pressure 107/63 Pulse Oximetry 99 100 02/18/18 22:00 02/18/18 22:14 02/19/18 00:00 Temperature 100.6 F H Pulse Rate 109 H 118 H Respiratory Rate 22 21 Blood Pressure 109/72 Pulse Oximetry 100 100 02/19/18 01:27 02/19/18 02:00 02/19/18 03:36 Temperature Pulse Rate 122 H 118 H Respiratory Rate 23 23 Blood Pressure Pulse Oximetry 100 02/19/18 04:00 02/19/18 04:30 02/19/18 06:00 Temperature 101.4 F H Pulse Rate 125 H 129 H Respiratory Rate 22 27 H Blood Pressure 120/87 Pulse Oximetry 100 100 02/19/18 08:00 02/19/18 08:59 Temperature Pulse Rate 135 H Respiratory Rate 30 H Blood Pressure Pulse Oximetry 97 99 Intake & Output 02/18/18 02/19/18 02/19/18 18:59 06:59 18:59 Intake Total 2038 / 2038 1701 / 1701 50 / 50 Output Total 1100 / 1100 900 / 900 Balance 938 / 938 801 / 801 50 / 50 Weight 85.5 kg Intake: IV 1150 / 1150 750 / 750 50 / 50 Versed Inj 50 mg In 50 ml @ 2 100 / 100 50 / 50 50 / 50 MG/HR 2 mls/hr IV.CONT TITRATE PRN Rx#:[id number] Diprivan 1000 mg/100 ml Inj 1, 300 / 300 300 / 300 000 mg In 100 ml @ 5 MCG/KG/MIN 2.58 mls/hr IV.CONT TITRATE PRN Rx#:[id number] Magnesium Sulfate 1 gm/D5W 100 200 / 200 ml Premix 100 ML @ 100 mls/hr IV.SIG Q1H GERMAINE Rx#:[id number] Merrem Inj 1,000 MG In NS Inj 100 / 100 200 / 200 100 ML @ 200 mls/hr IV.SIG Q8H GERMAINE Rx#:[id number] fentaNYL 10 mcg/mL Premix Drip 250 / 250 2,500 mcg In 250 ml @ 50 MCG/HR 5 mls/hr IV.SIG TITRATE PRN Rx #:[id number] Flagyl 500 MG Inj 100 ML @ 100 200 / 200 200 / 200 mls/hr IV.SIG Q6H GERMAINE Rx#: [id number] Tube Feeding 428 / 428 451 / 451 Tube Irrigant 60 / 60 100 / 100 Water Bolus Amount 400 / 400 400 / 400 Output: Urine 1100 / 1100 900 / 900 Other: # Voids 3 # Incontinent Voids 3 Date of Last Bowel Movement 02/18/18 02/19/18 # Bowel Movements 2 # Incontinent Bowel Movements 3 02/17/18 13:20 Bronchial - Right Upper Lobe Gram Stain - Final 02/17/18 13:20 Bronchial - Right Upper Lobe Bronchial Culture - Preliminary No growth in 24 hours 02/13/18 13:16 Blood - Peripheral Aerobic Blood Culture - Final No growth in 5 days 02/13/18 13:16 Blood - Peripheral Anaerobic Blood Culture - Final No growth in 5 days 02/13/18 13:16 Blood - Peripheral Aerobic Blood Culture - Final No growth in 5 days 02/13/18 13:16 Blood - Peripheral Anaerobic Blood Culture - Final No growth in 5 days 02/17/18 13:20 Bronchial Washings - Right Upper Lobe Fungal Smear - Final No fungal elements seen 02/17/18 13:20 Bronchial Washings - Right Upper Lobe Fungal Culture - Pending 02/17/18 13:20 Bronchial Washings - Right Upper Lobe Acid Fast Bacilli Smear - Pending 02/17/18 13:20 Bronchial Washings - Right Upper Lobe Mycobacterial Culture - Pending Lab - Hematology Results 02/17/18 02/18/18 02/18/18 06:36 05:22 20:54 WBC 9.1 RBC 2.26 L Hgb 7.5 L Hct 22.4 L MCV 98.9 MCH 33.3 MCHC 33.7 RDW 16.3 Plt Count 1063 H MPV 7.6 Prelim Diff (Auto) Slide review pending Neut % (Auto) 63.5 Lymph % (Auto) 16.8 [place] % (Auto) 11.6 H Eos % (Auto) 6.6 H Baso % (Auto) 1.5 Neut # (Auto) 5.8 Lymph # (Auto) 1.5 [place] # (Auto) 1.1 H Eos # (Auto) 0.6 H Baso # (Auto) 0.1 WBC Differential Manual diff final Manual diff final Seg Neuts % (Manual) 45 59 Band Neuts % (Manual) 12 H 10 H Lymphocytes % (Manual) 13 10 Monocytes % (Manual) 9 H 9 H Eosinophils % (Manual) 8 H 5 H Basophils % (Manual) 1 2 Metamyelocytes % (Man) 4 H Myelocytes % (Man) 8 H 5 H Abs Neuts (Manual) 6.3 6.7 Differential Comment . Platelet Estimate High H High H Platelet Morphology Normal Normal ESR Greater than 140 H Lab - Chemistry Results 02/17/18 02/17/18 02/17/18 12:01 15:26 21:05 Sodium Potassium Chloride Carbon Dioxide Anion Gap BUN Creatinine Estimated GFR POC Glucose 98 83 90 Random Glucose Calcium Phosphorus Magnesium C-Reactive Protein 02/18/18 02/18/18 02/18/18 00:52 04:48 05:22 Sodium 142 Potassium 4.0 Chloride 107 Carbon Dioxide 24.4 Anion Gap 11 BUN 8 Creatinine 0.65 Estimated GFR Greater than 89 POC Glucose 98 113 H Random Glucose 107 H Calcium 9.4 Phosphorus 4.2 Magnesium 1.8 C-Reactive Protein 02/18/18 02/18/18 02/18/18 07:42 12:48 17:20 Sodium Potassium Chloride Carbon Dioxide Anion Gap BUN Creatinine Estimated GFR POC Glucose 101 108 93 Random Glucose Calcium Phosphorus Magnesium C-Reactive Protein 02/18/18 02/18/18 02/19/18 20:26 20:54 00:03 Sodium Potassium Chloride Carbon Dioxide Anion Gap BUN Creatinine Estimated GFR POC Glucose 90 135 H Random Glucose Calcium Phosphorus Magnesium C-Reactive Protein 11.00 H 02/19/18 02/19/18 02/19/18 04:07 05:05 08:16 Sodium 140 Potassium 4.4 Chloride 105 Carbon Dioxide 25.2 Anion Gap 10 BUN 7 Creatinine 0.64 Estimated GFR Greater than 89 POC Glucose 125 H 130 H Random Glucose 102 Calcium 9.4 Phosphorus 3.4 Magnesium 1.6 C-Reactive Protein Imaging: ITS Impressions Abdomen/Pelvis CT 01/28/18 00:00 CONCLUSION: 1. There is a new finding of presumed pneumobilia in the left hepatic lobe. Is there a history of recent instrumentation? Portal venous gas is not entirely excluded. 2. Mild induration of the peripancreatic fat proximally suggest mild acute pancreatitis. 3. Small fat-containing umbilical hernia. 4. Pulmonary consolidation is noted as above. 5. Mild gaseous distention of the stomach. Chest CT 01/28/18 00:00 CONCLUSION: 1. Bilateral consolidation most pronounced in the left lower lobe and left upper lobe posteriorly. Gallbladder Ultrasound 01/30/18 00:00 CONCLUSION: 1. Unremarkable study. Abdomen/Bladder Ultrasound 01/30/18 15:17 CONCLUSION: 1. Negative renal sonogram. Head CT 02/06/18 03:50 CONCLUSION: 1. No acute intracranial abnormalities. . Abdomen X-Ray 02/08/18 00:00 CONCLUSION: NG tube placement as above. Head MRI 02/09/18 00:00 CONCLUSION: 1. Normal MRI of the brain. 2. Sinusitis and mastoiditis. Chest CTA 02/14/18 00:00 CONCLUSION: No evidence of pulmonary embolism. New right upper lobe pneumonia. Improving aeration on the left. Chest X-Ray 02/17/18 06:00 CONCLUSION: No significant change right upper lobe and left midlung pneumonia. Physical Exam: GENERAL: Awake, agitated, on stretcher chair, has wrist restraints, moving a lot. On T-piece. NAD HEENT: [place] conjunctiva, no icterus, moist [place] NECK: Trach site ok LUNGS: Coarse breath sounds bilaterally HEART: Regular S1 and S2. No murmurs heard. ABDOMEN: Bowel sounds diminished. Soft. Not guarding EXTREMITIES: No clubbing, cyanosis; UE edematous better, pitting edema both feet SKIN: rash not evident NEUROLOGIC: Awake, focusing. Moving all extremities PSYCHIATRIC: Agitated. Per RN he was spitting earlier : Cath in place Assessment and Plan - Plan IMPRESSION: 1. Possible sepsis. However cultures have been negative. Previous staph coagulase positive blood culture felt to be contamination. Subsequent cultures negative. No clear source. Temperature improved. 2. Skin rash. Likely drug related. Probably cefepime was associated. 3. Pneumonia. Suspect aspiration. 4. Status post cardiac arrest. 5. Acute respiratory failure. Patient now post tracheostomy. 6. Acute renal failure. Improved. 7. Seizure disorder. 8. Diarrhea. Questionable antibiotic associated. 9. [place] UTI. 10. Leukocytosis improved. 11. C. difficile colitis. RECOMMENDATIONS: Continue Diflucan. Continue Meropenem. - if C/S negative, likely deescalate On intravenous Flagyl for C. difficile. Continue p.o. vancomycin for C. difficile. 5. Follow C/S - if nothing else on C/S, will deescalate Abx and just continue Rx for C diff Monitor progress Follow temps Weaning per CCM D/W RN
--- NOTE | 2018-02-19 09:18 | P.PNONC ---
Subjective Interval history: T-max 101.4 overnight Per respiratory therapist she has just recently placed him on trach collar Per [employer]ATOR patient remains occasionally combative and intermittently follows commands; precedex gtt recently started Upon my exam he is calm, sitting up in stretcher chair. Occasional cough. Objective Vital Signs/Intake & Output: Vital Signs 02/18/18 10:00 02/18/18 10:10 02/18/18 12:00 Temperature 100.2 F H Pulse Rate 114 H 118 H Respiratory Rate 24 19 Blood Pressure 120/69 Pulse Oximetry 100 100 02/18/18 14:00 02/18/18 14:03 02/18/18 15:27 Temperature Pulse Rate 93 H 111 H Respiratory Rate 18 24 Blood Pressure Pulse Oximetry 100 02/18/18 16:00 02/18/18 16:08 02/18/18 18:00 Temperature 98.9 F Pulse Rate 113 H 113 H Respiratory Rate 19 13 Blood Pressure 126/76 Pulse Oximetry 100 100 02/18/18 19:12 02/18/18 20:00 02/18/18 20:23 Temperature 99.6 F Pulse Rate 110 H 112 H Respiratory Rate 26 H 22 26 H Blood Pressure 107/63 Pulse Oximetry 99 100 02/18/18 22:00 02/18/18 22:14 02/19/18 00:00 Temperature 100.6 F H Pulse Rate 109 H 118 H Respiratory Rate 22 21 Blood Pressure 109/72 Pulse Oximetry 100 100 02/19/18 01:27 02/19/18 02:00 02/19/18 03:36 Temperature Pulse Rate 122 H 118 H Respiratory Rate 23 23 Blood Pressure Pulse Oximetry 100 02/19/18 04:00 02/19/18 04:30 02/19/18 06:00 Temperature 101.4 F H Pulse Rate 125 H 129 H Respiratory Rate 22 27 H Blood Pressure 120/87 Pulse Oximetry 100 100 02/19/18 08:00 02/19/18 08:59 Temperature Pulse Rate 135 H Respiratory Rate 30 H Blood Pressure Pulse Oximetry 97 99 Intake & Output 02/18/18 02/19/18 02/19/18 18:59 06:59 18:59 Intake Total 2038 / 2038 1701 / 1701 50 / 50 Output Total 1100 / 1100 900 / 900 Balance 938 / 938 801 / 801 50 / 50 Weight 188 lb 7.924 oz Intake: IV 1150 / 1150 750 / 750 50 / 50 Versed Inj 50 mg In 50 ml @ 2 100 / 100 50 / 50 50 / 50 MG/HR 2 mls/hr IV.CONT TITRATE PRN Rx#:[id number] Diprivan 1000 mg/100 ml Inj 1, 300 / 300 300 / 300 000 mg In 100 ml @ 5 MCG/KG/MIN 2.58 mls/hr IV.CONT TITRATE PRN Rx#:[id number] Magnesium Sulfate 1 gm/D5W 100 200 / 200 ml Premix 100 ML @ 100 mls/hr IV.SIG Q1H EFREN Rx#:[id number] Merrem Inj 1,000 MG In NS Inj 100 / 100 200 / 200 100 ML @ 200 mls/hr IV.SIG Q8H EFREN Rx#:[id number] fentaNYL 10 mcg/mL Premix Drip 250 / 250 2,500 mcg In 250 ml @ 50 MCG/HR 5 mls/hr IV.SIG TITRATE PRN Rx #:[id number] Flagyl 500 MG Inj 100 ML @ 100 200 / 200 200 / 200 mls/hr IV.SIG Q6H EFREN Rx#: [id number] Tube Feeding 428 / 428 451 / 451 Tube Irrigant 60 / 60 100 / 100 Water Bolus Amount 400 / 400 400 / 400 Output: Urine 1100 / 1100 900 / 900 Other: # Voids 3 # Incontinent Voids 3 Date of Last Bowel Movement 02/18/18 02/19/18 # Bowel Movements 2 # Incontinent Bowel Movements 3 Result Diagrams: 02/19/18 08:40 02/19/18 04:07 Laboratory Results: Laboratory Results - last 24 hr 02/18/18 02/18/18 02/18/18 12:48 17:20 20:26 ESR Sodium Potassium Chloride Carbon Dioxide Anion Gap BUN Creatinine Estimated GFR POC Glucose 108 93 90 Random Glucose Calcium Phosphorus Magnesium C-Reactive Protein 02/18/18 02/18/18 02/19/18 20:54 20:54 00:03 ESR Greater than 140 H Sodium Potassium Chloride Carbon Dioxide Anion Gap BUN Creatinine Estimated GFR POC Glucose 135 H Random Glucose Calcium Phosphorus Magnesium C-Reactive Protein 11.00 H 02/19/18 02/19/18 02/19/18 04:07 05:05 08:16 ESR Sodium 140 Potassium 4.4 Chloride 105 Carbon Dioxide 25.2 Anion Gap 10 BUN 7 Creatinine 0.64 Estimated GFR Greater than 89 POC Glucose 125 H 130 H Random Glucose 102 Calcium 9.4 Phosphorus 3.4 Magnesium 1.6 C-Reactive Protein Culture Results: Microbiology 02/17/18 13:20 Gram Stain - Final Bronchial - Right Upper Lobe Bronchial Culture - Preliminary No growth in 24 hours 02/13/18 13:16 Aerobic Blood Culture - Final Blood - Peripheral No growth in 5 days Anaerobic Blood Culture - Final No growth in 5 days 02/13/18 13:16 Aerobic Blood Culture - Final Blood - Peripheral No growth in 5 days Anaerobic Blood Culture - Final No growth in 5 days 02/17/18 13:20 Fungal Smear - Final Bronchial Washings - Right Upper Lobe No fungal elements seen Medications: Active Medications Generic Name Dose Route Start Last Admin Trade Name Freq PRN Reason Stop Dose Admin Acetaminophen 650 mg 01/28/18 15:00 02/19/18 07:58 Tylenol Liq NG/OG 650 mg Q6H PRN Administration FEVER Albuterol 2.5 mg 01/28/18 10:35 02/02/18 20:03 Albuterol Neb (Prn) NEB 2.5 mg Q2HR NEB PRN Administration SHORTNESS OF BREATH/WHEEZING Albuterol 1 ampul 02/17/18 16:00 02/19/18 08:04 Duoneb Neb (Efren) NEB 1 ampul Q6HR NEB EFREN Administration Artificial Tears 1 drop 02/09/18 21:00 02/18/18 21:56 Refresh Tears 0.5% Opth Drops EACH EYE 1 drop BID EFREN Administration Aspirin 325 mg 01/30/18 09:00 02/18/18 08:23 Aspirin PO 325 mg DAILY EFREN Administration Chlorhexidine Gluconate 15 ml 01/28/18 20:00 02/19/18 07:59 Peridex 0.12% Oral Kit OROPHARYNG 15 ml BID@0800,2000 FEREN Administration Clonidine HCl 0.1 mg 02/16/18 09:00 02/18/18 20:00 Catapres PO 0.1 mg Q12HR EFREN Administration Dextrose 50 ml 01/28/18 10:39 01/30/18 04:15 D50w Vial IV.PUSH 50 ml UNSCH PRN Administration PER HYPOGLYCEMIA PROTOCOL Famotidine 20 mg 02/14/18 21:00 02/18/18 20:00 Pepcid G-TUBE 20 mg BID EFREN Administration Fluconazole 100 mg 02/13/18 11:00 02/18/18 08:25 Diflucan PO 100 mg DAILY EFREN Administration Heparin Sodium (Porcine) 5,000 units 02/06/18 21:00 02/18/18 20:03 Heparin Inj SQ 5,000 units Q12HR EFREN Administration Fentanyl 2,500 mcg in 250 mls @ 5 mls/hr 02/05/18 18:58 02/19/18 03:32 Fentanyl 10 Mcg/Ml Premix Drip IV.SIG 0 mcg/hr TITRATE PRN 0 mls/hr Per Protocol Titration Protocol 50 MCG/HR Propofol 1,000 mg in 100 mls @ 2.58 mls/hr 02/05/18 18:59 02/19/18 03:32 Diprivan 1000 Mg/100 Ml Inj IV.CONT 50 mcg/kg/min TITRATE PRN 25.8 mls/hr Per Protocol Administration Protocol 5 MCG/KG/MIN Midazolam HCl 50 mg in 50 mls @ 2 mls/hr 02/07/18 13:49 02/19/18 07:58 Versed Inj IV.CONT Infused TITRATE PRN Titration Per Protocol Protocol 2 MG/HR Magnesium Sulfate Inj 2 gm/ 100 mls @ 50 mls/hr 02/12/18 03:02 02/15/18 14:21 Sodium Chloride IV.SIG Infused UNSCH PRN Infusion For Magnesium 1.2 - 1.6 mg/dL Potassium Chloride 20 meq in 100 mls @ 50 mls/hr 02/12/18 03:02 02/12/18 14: 46 Kcl 20 Meq Premix Inj IV.SIG Infused Q2H PRN Infusion For Potassium 3.3 - 3.5 mEq/L Potassium Chloride 20 meq in 100 mls @ 50 mls/hr 02/12/18 03:02 02/12/18 10: 45 Kcl 20 Meq Premix Inj IV.SIG Infused Q2H PRN Infusion For Potassium 2.8 - 3.2 mEq/L Meropenem 1,000 mg/ Sodium 100 mls @ 200 mls/hr 02/13/18 12:00 02/19/18 06:48 Chloride IV.SIG Infused Q8H EFREN Infusion Metronidazole/Sodium Chloride 100 mls @ 100 mls/hr 02/15/18 14:00 02/19/18 07 :59 Flagyl 500 Mg Inj IV.SIG 100 mls/hr Q6H EFREN Administration Insulin Aspart 0 unit 01/29/18 16:00 02/19/18 08:47 Novolog Insulin Correctional Sugar Inj SQ Not Given Q4HR [facility] Protocol Levetiracetam 500 mg 02/03/18 21:00 02/18/18 20:00 Keppra NG/OG 500 mg BID EFREN Administration Magnesium Oxide 800 mg 02/12/18 03:02 02/12/18 09:55 Mag-Ox PO 800 mg UNSCH PRN Administration For Magnesium 1.2 - 1.6 mg/dL Multivitamins 1 tab 02/04/18 11:00 02/18/18 08:25 Theragran NG/OG 1 tab DAILY EFREN Administration Ondansetron HCl 4 mg 01/28/18 10:35 02/19/18 08:46 Zofran Inj IV.PUSH 4 mg Q6H PRN Administration NAUSEA OR VOMITING Oxycodone HCl 15 mg 02/17/18 14:00 02/19/18 07:58 Roxicodone Intensol Liq PO 15 mg Q6H EFREN Administration Quetiapine Fumarate 200 mg 02/12/18 10:54 02/18/18 20:00 Seroquel NG/OG 200 mg BID EFREN Administration Senna/Docusate Sodium 1 tab 01/28/18 21:00 02/18/18 21:55 Hiral-Colace PO Not Given BID EFREN Sennosides 17.2 mg 01/28/18 10:35 01/31/18 08:30 Senokot PO 17.2 mg Q12H PRN Administration Moderate Constipation Sodium Chloride 2 ml 01/28/18 21:00 02/19/18 08:47 Ns Flush IV.FLUSH 2 ml BID EFREN Administration Sodium Chloride 2 ml 01/28/18 14:54 02/05/18 09:19 Ns Flush IV.FLUSH 2 ml PRN PRN Administration FLUSH AFTER USING IV ACCESS Sterile Water 100 ml 02/17/18 13:00 02/19/18 05:03 Free Water G-TUBE 100 ml Q6HR EFREN Administration Thiamine HCl 100 mg 02/04/18 21:00 02/18/18 20:00 Vitamin B1 PO 100 mg BID EFREN Administration Valproate Sodium 250 mg 02/13/18 21:00 02/18/18 20:00 Depakene Liq PO 250 mg BID EFREN Administration Vancomycin HCl 250 mg 02/15/18 13:00 02/18/18 20:00 Vancomycin Po PO 250 mg QID EFREN Administration Objective Remarks: GENERAL: Chronically ill-appearing younger male sitting up in stretcher chair in no obvious distress SKIN: Warm and dry. HEAD: Normocephalic. EYES: No scleral icterus. No injection or drainage. NECK: Supple, trachea midline. No JVD or lymphadenopathy. CARDIOVASCULAR: + S1/S2. Tachycardic. RESPIRATORY: Clear anteriorly. O2 via trach collar GASTROINTESTINAL: Abdomen soft, non-tender, nondistended. PEG tube in place EXTREMITIES: No cyanosis. Pitting edema to bilateral feet MUSCULOSKELETAL: Generalized weakness NEUROLOGICAL: Makes good eye contact; sedated with Precedex. Assessment/Plan - Plan 32-year-old male with history of EtOH, seizures, noncompliant with his medications admitted with nausea vomiting and diarrhea. Patient subsequently had a cardiac arrest and was successfully resuscitated. He now has tracheostomy tube. He is being treated for Clostridium difficile. Hematology consulted for thrombocytosis. 1. Continue to monitor CBC. Currently pending today. 2. No treatment necessary for thrombocytosis. Await Warren 2 results which is unlikely to be positive. 3. Continue treatment for Clostridium difficile; supportive care. - Attending Statement The exam, history, and the medical decision-making described in the above note were completed with the assistance of the mid-level provider. I reviewed and agree with the findings presented. I attest that I had a [id number] encounter with the patient on the same day, and personally performed and documented my assessment and findings in the medical record. Patient is now on trach collar Mom is present at the bedside Patient noticed to be agitated on and off Platelets remains high. Most likely he has reactive thrombocytosis. Sed rate and C reactive protein both are very high. This is indicative of severe inflammation which is causing thrombocytosis. Once the underlying condition improves then the platelet count will also improve. Cytoreductive therapy is not indicated to bring down the platelets as this is not essential thrombocythemia. Warren 2 mutation is still pending Discussed with patient's RN
[2018-02-19 09:24] LABS: Baso # (Auto) 0.2 th/mm3 (0.0-0.2); Baso % (Auto) 1.6 % (0.0-2.0); Eos # (Auto) 0.3 th/mm3 (0.0-0.4); Eos % (Auto) 2.9 % (0.0-4.0); Hemoglobin 7.4 gm/dL (13.0-17.0); Lymph # (Auto) 1.6 th/mm3 (1.0-4.8); Lymph % (Auto) 15.7 % (9.0-44.0); Mean Corpuscular HGB Conc 33.7 % (32.0-36.0); Mean Corpuscular Hemoglobin 32.9 pg (27.0-34.0); Mean Corpuscular Volume 97.5 fL (80.0-100.0); Mean Platelet Volume 7.5 fL (7.0-11.0); Mono # (Auto) 0.6 th/mm3 (0.0-0.9); Mono % (Auto) 6.2 % (0.0-8.0); Neut # (Auto) 7.6 th/mm3 (1.8-7.7); Neut % (Auto) 73.6 % (16.0-70.0); Platelet Count 1054 th/mm3 (150-450); Red Blood Count 2.26 mil/mm3 (4.50-5.90); Red Cell Distribution Width 15.7 % (11.6-17.2); White Blood Count 10.3 th/mm3 (4.0-11.0)
[2018-02-19] MEDS: Dexmedetomidine Inj 200 MCG in Sodium Chlor 0.9% Inj 48 ML IV.CONT PRN ×5 (09:44→19:21)
[2018-02-19 10:00] LABS: Eosinophils 2 % (0-4); Lymphocytes 9 % (9-44); Metamyelocytes 2 % (0-1); Monocytes 5 % (0-8); Platelet Morphology Normal (Normal)
[2018-02-19] MEDS: Aspirin 325 MG Tablet PO SCH (10:02)
[2018-02-19] MEDS: levETIRAcetam 500 MG Tablet NG/OG SCH ×2 (10:03→20:29)
[2018-02-19] MEDS: Fluconazole 100 MG Tablet PO SCH (10:03)
[2018-02-19] MEDS: QUEtiapine 100 MG Tablet NG/OG SCH ×2 (10:03→20:29)
[2018-02-19] MEDS: Famotidine 20 MG Tablet G-TUBE SCH ×2 (10:04→20:29)
[2018-02-19] MEDS: Carboxymethylcellulose 0.5% Opth Drops 15 ML Bottle EACH EYE SCH ×2 (10:05→20:35)
[2018-02-19] MEDS: Senna/Docusate Sodium 8.6/50 MG Tablet PO SCH ×2 (10:05→20:29)
[2018-02-19] MEDS: Heparin - SQ 10,000 UNITS/ML Vial SQ SCH ×2 (10:05→20:32)
[2018-02-19] MEDS ORDERED: Magnesium Sulfate Inj 4 GM in Sodium Chlor 0.9% Inj 92 ML IV.SIG ONE (12:44)
--- NOTE | 2018-02-19 12:47 | P.PNCC ---
Subjective Subjective Remarks/Hospital Course: This is a 32-year-old male. Admission 01/28/2018. Past medical history includes seizure disorder/noncompliant with levetiracetam, previous EtOH sober for 4 weeks, anorexia, gastroesophageal reflux disease and chronic pancreatitis. Patient presented to [facility] 01/28/2018 with a two-day history of nausea vomiting and diarrhea. Patient's mother/discussed at bedside stated she had just had a "stomach flu" which she has currently recovered. Mom states that the patient has become fairly dehydrated is been having some cramping of his hands. She is worried that he is getting dehydrated and his potassium might begin low. He was unable to tolerate a banana so she gave him some potassium pills p.o. which she also did not tolerate and threw up. Sober 4 weeks according to mother. Patient was noted to have a low potassium at 2.0. Creatinine of 4.0. This is in line with his previous hospitalizations for acute dehydration. Lipase was slightly elevated. Patient does have a history of seizure disorder which is not compliant with levetiracetam. ED physician was called into room because the RN believed he had a seizure. Patient was unresponsive. Mother states this was not like any seizure that she had seen. Pulses not palpable therefore CPR was initiated. Initial rhythm was V. fib. Patient received amiodarone, lidocaine, epinephrine, bicarbonate, magnesium during the 35 minute code with return of spontaneous circulation after 35 minutes. Pupils are about 9 mils bilaterally and 6. When I saw the patient patient was actively thrashing moving all 4 extremities spontaneously but not to command. Pupils are round 8 mm bilaterally and nonreactive. Brain CT revealed no acute findings. CT thorax revealed a left upper and lower lobe. CT abdomen pelvis pending at time of dictation. Likely, troponin pending. EKG revealed incomplete right bundle block with ST depression in the inferior and lateral leads. Cardiology consulted. They will evaluate after stat echocardiogram and troponins been completed. Potassium will be replaced pending [facility] 01/29: persistently in shock. following commands this AM. trop uptrended overnight and now > 40. on levo @ 10, vasopressin. bedside echo with persistence of his global severe LV systolic dysfunction. IVC dilated without respiratory variation. initially attempted therapeutic hypothermia, but became arrhythmogenic and neurologic exam improved and now following commands, so hypothermia aborted. persistently hypokalemic and hypophosphatemic this AM. in addition, remains with severe metabolic alkalosis. 01/30: Troponin trending down, continues to have severe hypokalemia and metabolic alkalosis. Creatinine continues to trend up, only produced 200 cc of urine over the past 24 hours. 01/31: Patient seen by nephrology yesterday and given bumex, urine output dramatically increased, potassium improved with aggressive repletion, pressors now off and dobutamine at 5. 02/01: No issues overnight. Patient tolerated dobutamine at 2 yesterday, discontinued this morning. Switching propofol to precedex and would like to start SBTs today. Overall improved. 02/02: Tolerated switch to precedex yesterday and was on bipap 05/06 for several hours yesterday afternoon, placed back on AC overnight to avoid respiratory fatigue. 02/03: Patient had no overnight events, tolerated SBT x 5 hours yesterday. Significantly agitated this morning during sedation vacation. 02/04: Patient still struggles with agitation when we lighten sedation. 02/05: Temp 103F this morning, no obvious source of infection. Needs to have PICC line placed today. 02/06: reintubated yesterday. overnight persistently febrile. this morning appears in distress- tachypneic on the ventilator, acidotic. potassium up to 5.8 despite medical management. bedside echo with improving LVEF and completely collapsed IVC. no pericardial effusion. lung ultrasound without effusions. 02/07: Remains sedated, orally intubated on mechanical ventilation. On propofol fentanyl and Versed drips. Transfuse 1 unit PRBCs earlier today for drop in hemoglobin. 02/08: Remains sedated, orally intubated on mechanical ventilation. On propofol fentanyl and Versed drips. Awaiting tracheostomy which is scheduled for later today. 02/09: Overnight, new onset of maculopapular rash noted. Noted discontinuation of cefepime 02/08. Received 1 dose diphenhydramine overnight. 02/10: Afebrile. Discussed with mom at bedside. Follows commands weakly bilateral upper and lower extremities. Diffuse macular papular rash improved lower extremities. Appears stable and upper thorax. On Famotidine, methylprednisolone and diphenhydramine 02/11: Afebrile. Opens eyes to voice. Following commands weakly bilateral upper lower extremity. On propofol 50 roxanne grams per kilogram, a fentanyl drip at 250 mg of midazolam drip at 6 mg an hour due to "agitation" overnight. Will wean. Increased quetiapine to 100 twice daily. 02/12: remains on vent at this time, sedated. Follows commands all extremities weakly. RN states that she increase her sedation as the patient was tachycardic and hypotensive. I will start labetalol 200 mg twice daily and attempt sedation wean. 02/13: T-max 101.5. Remains on fentanyl drip at 250 roxanne grams an hour, midazolam drip at 7 mg an hour and fentanyl drip at 250 roxanne grams an hour. Started labetalol 200 mg twice a yesterday but now hypotensive. Tube feeds currently at 10 cc an hour. 02/14: T-max 100.3. Remains on fentanyl drip at 250 roxanne grams an hour, midazolam drip at 7 mg and fentanyl drip 250 mcg an hour. 2 feedings currently at [address] pulmonary angiogram today per cardiology request. Will discuss some other possible transfer to select hospital today. 02/15: T-max 100.3. Tube feedings currently at [address] pulmonary angiogram revealed right upper lobe infiltrate/new. No pulmonary embolism. Opens eyes to voice. 02/16: T-max 100.7. Arousable to voice and close his eyes. Noted increasing platelets currently 876. Will check iron studies and peripheral smear. Again continued difficulty weaning off IV sedation due to severe agitation. 02/17: Remains febrile. Plan for bronchoscopy right upper lobe infiltrate. Please continue to increase. Tolerating tube feeds at 50 cc an hour. Positive BM. 02/18: T-max 103.2. Currently afebrile. Bronchoscopy yesterday Gram stain negative. Tube feeds at goal. SUBJECTIVE: 02/19: T-max 101.4. Currently sitting in chair on trach collar on dexmedetomidine drip at 1.5 mcg/kg/h Objective Vital Signs / I&O: Vital Signs 02/18/18 14:00 02/18/18 14:03 02/18/18 15:27 Temperature Pulse Rate 93 H 111 H Respiratory Rate 18 24 Blood Pressure Pulse Oximetry 100 02/18/18 16:00 02/18/18 16:08 02/18/18 18:00 Temperature 98.9 F Pulse Rate 113 H 113 H Respiratory Rate 19 13 Blood Pressure 126/76 Pulse Oximetry 100 100 02/18/18 19:12 02/18/18 20:00 02/18/18 20:23 Temperature 99.6 F Pulse Rate 110 H 112 H Respiratory Rate 26 H 22 26 H Blood Pressure 107/63 Pulse Oximetry 99 100 02/18/18 22:00 02/18/18 22:14 02/19/18 00:00 Temperature 100.6 F H Pulse Rate 109 H 118 H Respiratory Rate 22 21 Blood Pressure 109/72 Pulse Oximetry 100 100 02/19/18 01:27 02/19/18 02:00 02/19/18 03:36 Temperature Pulse Rate 122 H 118 H Respiratory Rate 23 23 Blood Pressure Pulse Oximetry 100 02/19/18 04:00 02/19/18 04:30 02/19/18 06:00 Temperature 101.4 F H Pulse Rate 125 H 129 H Respiratory Rate 22 27 H Blood Pressure 120/87 Pulse Oximetry 100 100 02/19/18 08:00 02/19/18 08:59 02/19/18 10:00 Temperature 101.3 F H Pulse Rate 139 H 119 H Respiratory Rate 25 H Blood Pressure 134/86 Pulse Oximetry 97 99 Intake & Output 02/18/18 02/19/18 02/19/18 18:59 06:59 18:59 Intake Total 2038 / 2038 1701 / 1701 200 / 200 Output Total 1100 / 1100 900 / 900 Balance 938 / 938 801 / 801 200 / 200 Weight 85.5 kg Intake: IV 1150 / 1150 750 / 750 200 / 200 Precedex Inj 200 MCG In NS Inj 50 / 50 48 ML @ 0.2 MCG/KG/HR 4.27 mls/ hr IV.CONT TITRATE PRN Rx#: [id number] Versed Inj 50 mg In 50 ml @ 2 100 / 100 50 / 50 50 / 50 MG/HR 2 mls/hr IV.CONT TITRATE PRN Rx#:[id number] Diprivan 1000 mg/100 ml Inj 1, 300 / 300 300 / 300 000 mg In 100 ml @ 5 MCG/KG/MIN 2.58 mls/hr IV.CONT TITRATE PRN Rx#:[id number] Magnesium Sulfate 1 gm/D5W 100 200 / 200 ml Premix 100 ML @ 100 mls/hr IV.SIG Q1H [facility] Rx#:[id number] Merrem Inj 1,000 MG In NS Inj 100 / 100 200 / 200 100 ML @ 200 mls/hr IV.SIG Q8H [facility] Rx#:[id number] fentaNYL 10 mcg/mL Premix Drip 250 / 250 2,500 mcg In 250 ml @ 50 MCG/HR 5 mls/hr IV.SIG TITRATE PRN Rx #:[id number] Flagyl 500 MG Inj 100 ML @ 100 200 / 200 200 / 200 100 / 100 mls/hr IV.SIG Q6H [facility] Rx#: [id number] Tube Feeding 428 / 428 451 / 451 Tube Irrigant 60 / 60 100 / 100 Water Bolus Amount 400 / 400 400 / 400 Output: Urine 1100 / 1100 900 / 900 Other: # Voids 3 # Incontinent Voids 3 Date of Last Bowel Movement 02/18/18 02/19/18 02/19/18 # Bowel Movements 2 # Incontinent Bowel Movements 3 Result Diagrams: 02/19/18 08:40 02/19/18 04:07 Other Results: Microbiology 02/17/18 13:20 Bronchial - Right Upper Lobe Gram Stain - Final 02/17/18 13:20 Bronchial - Right Upper Lobe Bronchial Culture - Final Moderate growth normal respiratory pepito 02/13/18 13:16 Blood - Peripheral Aerobic Blood Culture - Final No growth in 5 days 02/13/18 13:16 Blood - Peripheral Anaerobic Blood Culture - Final No growth in 5 days 02/13/18 13:16 Blood - Peripheral Aerobic Blood Culture - Final No growth in 5 days 02/13/18 13:16 Blood - Peripheral Anaerobic Blood Culture - Final No growth in 5 days 02/17/18 13:20 Bronchial Washings - Right Upper Lobe Fungal Smear - Final No fungal elements seen 02/13/18 11:35 Sputum - Endotracheal Gram Stain - Final 02/13/18 11:35 Sputum - Endotracheal Sputum Culture - Final Moderate growth normal respiratory pepito 02/12/18 08:30 Catheterized Urine Urine Culture - Final No growth in 48 hours 02/05/18 22:13 Blood - Peripheral Aerobic Blood Culture - Final No growth in 5 days 02/05/18 22:13 Blood - Peripheral Anaerobic Blood Culture - Final No growth in 5 days 02/05/18 22:18 Blood - Peripheral Aerobic Blood Culture - Final No growth in 5 days 02/05/18 22:18 Blood - Peripheral Anaerobic Blood Culture - Final No growth in 5 days 02/08/18 17:00 Catheterized Urine Urine Culture - Final Oliva albicans 02/06/18 08:25 Sputum - Endotracheal Gram Stain - Final 02/06/18 08:25 Sputum - Endotracheal Sputum Culture - Final Heavy growth normal respiratory pepito 02/06/18 03:00 Catheterized Urine Urine Culture - Final No growth in 48 hours 02/05/18 10:30 Stool Stool Occult Blood (ROXANNE) - Final Hemoccult negative 01/31/18 15:00 Blood - Peripheral Aerobic Blood Culture - Final Staphylococcus epidermidis 01/31/18 15:00 Blood - Peripheral Anaerobic Blood Culture - Final No growth in 5 days 01/31/18 14:45 Blood - Peripheral Aerobic Blood Culture - Final No growth in 5 days 01/31/18 14:45 Blood - Peripheral Anaerobic Blood Culture - Final No growth in 5 days 01/28/18 17:55 Blood - Peripheral Aerobic Blood Culture - Final Staphylococcus hominis-hominis 01/28/18 17:55 Blood - Peripheral Anaerobic Blood Culture - Final No growth in 5 days 01/28/18 17:50 Blood - Peripheral Aerobic Blood Culture - Final No growth in 5 days 01/28/18 17:50 Blood - Peripheral Anaerobic Blood Culture - Final No growth in 5 days 01/30/18 16:01 Catheterized Urine Urine Culture - Final No growth in 48 hours 01/28/18 13:55 Sputum - Endotracheal Gram Stain - Final 01/28/18 13:55 Sputum - Endotracheal Sputum Culture - Final Heavy growth normal respiratory pepito 01/28/18 13:49 Urine - Catheterized Urine Legionella Antigen - Final Presumptive negative for Legionella pneumophila serogroup 1 antigen in urine, suggesting no recent or recurrent infection. Infection due to Legionella cannot be ruled out since other serogroups and species may cause disease, antigen may not be present in urine in early infection, and the level of antigen present in the urine may be below the detection limit of the test. 01/28/18 13:49 Urine - Catheterized Urine Streptococcus pneumoniae Antigen ( M - Final Presumptive negative for streptococcus pneumoniae antigen, suggesting no current or recent infection. Infection due to Streptococcus pneumoniae cannot be ruled out since the antigen present in the sample may be below the detection limit of the test. 01/28/18 13:51 Nasal Aspirate Influenza Types A,B Antigen - Final Negative for FLU A and B antigen Infection due to influenza A or B cannot be ruled out since the antigen present in the sample may be below the detection limit of the test. Imaging: Abdomen/Pelvis CT 01/28/18 00:00 CONCLUSION: 1. There is a new finding of presumed pneumobilia in the left hepatic lobe. Is there a history of recent instrumentation? Portal venous gas is not entirely excluded. 2. Mild induration of the peripancreatic fat proximally suggest mild acute pancreatitis. 3. Small fat-containing umbilical hernia. 4. Pulmonary consolidation is noted as above. 5. Mild gaseous distention of the stomach. Chest CT 01/28/18 00:00 CONCLUSION: 1. Bilateral consolidation most pronounced in the left lower lobe and left upper lobe posteriorly. Chest X-Ray 01/28/18 10:15 CONCLUSION: Endotracheal tube as above. Left lung consolidation. Head CT 01/28/18 10:19 CONCLUSION: 1. Negative CT Head non contrast. . Chest X-Ray 01/29/18 09:13 CONCLUSION: Right subclavian line as above. Gallbladder Ultrasound 01/30/18 00:00 CONCLUSION: 1. Unremarkable study. Chest X-Ray 01/30/18 05:00 CONCLUSION: Stable diffuse left lung airspace consolidation with bibasilar opacities likely representing atelectasis and possible small effusions. Abdomen/Bladder Ultrasound 01/30/18 15:17 CONCLUSION: 1. Negative renal sonogram. Chest X-Ray 02/04/18 05:00 CONCLUSION: Persistent consolidation in the lower lungs, slightly improved in the left lower lung. Chest X-Ray 02/05/18 00:00 CONCLUSION: ET tube is in excellent position. Lungs still mostly clear Chest X-Ray 02/06/18 01:30 CONCLUSION: Subsegmental airspace disease improved from February 05. Endotracheal tube and nasogastric tube in good position. Head CT 02/06/18 03:50 CONCLUSION: 1. No acute intracranial abnormalities. . Abdomen X-Ray 02/08/18 00:00 CONCLUSION: NG tube placement as above. Chest X-Ray 02/08/18 14:56 CONCLUSION: 1. Consolidating infiltrate has developed in the right midlung and left base 2. Interval placement of a tracheostomy tube and removal of endotracheal tube. 3. Otherwise stable chest. Head MRI 02/09/18 00:00 CONCLUSION: 1. Normal MRI of the brain. 2. Sinusitis and mastoiditis. Chest X-Ray 02/12/18 06:00 CONCLUSION: 1. Improving airspace consolidation in the right upper lung zone. 2. Persistent patchy airspace disease in the left lower lung zone. Chest CTA 02/14/18 00:00 CONCLUSION: No evidence of pulmonary embolism. New right upper lobe pneumonia. Improving aeration on the left. Chest X-Ray 02/14/18 06:00 CONCLUSION: No significant change. Chest X-Ray 02/17/18 00:00 CONCLUSION: Persistent patchy opacities within the right upper lung and left lung base consistent with probable pneumonia. Chest X-Ray 02/17/18 06:00 CONCLUSION: No significant change right upper lobe and left midlung pneumonia. Objective Remarks: GENERAL: 32-year-old male currently on ventilator via tracheostomy 8.0 Shiley HEENT: NCAT, pupils are equal round react about 3 meals bilaterally. Extraocular muscles are intact. NECK: Trachea midline. Tracheostomy site is clean dry and intact CHEST: Few coarse crackles appreciated no wheezing. CARDIOVASCULAR: RRR. S1, S2 no S4. Without murmur ABDOMEN: Soft, non-tender in all quadrants, fresh PEG tube site is clean dry and intact with no bleeding or erythema : Positive scrotal edema MUSCULOSKELETAL: Warm and well perfused, maculopapular rash on thorax, bilateral upper and lower extremities. 1+ bilateral upper and lower extremity peripheral edema NEUROLOGICAL: Follows commands by squeezing bilateral upper and bilateral lower extremities weakly. Positive gag and cough. Talks over trach. Assessment and Plan - Assessment and Plan Plan: Neuro/Psych: Seizure disorder NOS History of EtOH sober 4 weeks History of anorexia/bulimia Acute metabolic encephalopathy Currently on dexmedetomidine drip at 1.5 mcg/kg/h Goal of RASS 0, start weaning sedation Continue levetiracetam 500 BID (home dose) Home Quetiapine currently at 100 mg twice daily, increase to 200 twice daily. 0xycodone liquid 15 mg every 6 hours Valproic acid 250 milligrams twice daily Patient has a previous history of heavy EtOH abuse and bulimia as per mother-- continue thiamine Continue thiamine 100 mg twice daily Adding low-dose clonidine 0 point milligrams twice daily. Monitor blood pressure closely CV: In-hospital cardiac arrest V. fib arrest Cardiogenic Shock-- resolved Severe LV systolic dysfunction- resolving. Septic shock Evaluated by Dr. Townsend. No further cardiac workup planned at this time. Echo 01/28: severe LV systolic dysfunction, EF 20-25%. mildly depressed RV function. no valvular lesions. continue daily ASA 325 mg daily. Continued PO thiamine supplementation for ? beriberi Echocardiogram 02/14 - the left ventricular systolic function is normal with an estimated ejection fraction in the range of 60-65%. Normal left ventricular size. Wall thickness is normal. No regional wall motion abnormalities are present. . Resp: Acute hypoxic respiratory failure- recurrent. Left upper/lower lobe pulmonary infiltrates-- improving New right upper lobe infiltrate Extubated 02/05, reintubated 02/05 for respiratory failure Status post tracheostomy by Dr. Serna 02/08 Albuterol/ipratropium aerosols every 6 hours with albuterol aerosols every 2 hours as needed for dyspnea vent bundle, hob elevated wean fio2 for goal spo2 > 90% PSV 03/06 at 45%. Attempt to call her/T-piece as tolerated. CT pulmonary angiogram revealed right upper limits. No pulmonary embolus. GI: Elevated lipase/mild pancreatitis-- resolved Left hepatic pneumobilia history of chronic pancreatitis C. Difficile Colitis Jevity 1.5 @ 60 cc an hour per dietary recommendations. Currently at 50 cc an hour By tube famotidine for GI prophylaxis due to rash Docusate serum/senna 1 tablet twice daily for bowel regimen Renal/ : Acute kidney injury-- i resolved Nance replaced 02/04. continue for accurate i/o's. Creatinine peaked around 6, continues to improve, but slowly currently 0.86. Nephrology has signed off Endo: Sliding scale insulin with Accu-Cheks to maintain euglycemia aspart insulin every 6 hours, Heme: Normocytic anemia Thrombocytosis Monitor CBC daily. Follow trends. No indication for transfusion of blood products at this time Remains on aspirin 325 mg daily Check peripheral smear. Iron studies revealed low FE/TIBC and elevated ferritin. Likely this is reactive thrombocytosis. Currently on aspirin. Appreciate hematology input and recommendations. ID: Septic shock-resolving C. Difficile Colitis Blood cultures on 01/28 and 01/31 showed coagulase negative staph hominis, likely contamination Sputum, UA and influenza all NGTD s/p zosyn for 7 days to treat pneumonia, d/c on 02/05 repeat blood cultures 02/05 no growth sent sputum culture urine culture 02/05 no growth,02/08 Oliva albicans Bronc samples 02/17 follow-up started on PO Vanc 02/05-present. IV metronidazole added 02/15 Currently on meropenem and fluconazole day #4. Pancultured again 02/13 Infectious disease following actively FEN: Hypomagnesia Replace electrolytes as clinically indicated. 4g mag sulfate IV 1 now. Free water 100 cc every 6 hours MSK PT evaluate and treat DERM: Diffuse macular papular rash likely secondary to cefepime resolving Treated with amlodipine, diphenhydramine and methylprednisolone succinate. Added cefepime to adverse reaction with rash Access: - 01/29 - 02/05 right SC TLC - 02/04 Nance for urinary retention Prophylaxis -GI-famotidine -DVT SCD/ Subcutaneous heparin Level 2 follow-up Code Status: Full code Discussed Condition With: Discussed with mother at bedside. Care plan discussed and all questions answered.
[2018-02-19] MEDS: Dexmedetomidine Inj 1,000 MCG in Sodium Chlor 0.9% Inj 240 ML IV.CONT PRN (21:33)
[2018-02-20] MEDS: Insulin NovoLOG Aspart Correctional Sugar Inj SQ SCH ×6 (01:35→20:31)
[2018-02-20] MEDS: Oral Hygiene Kit OROPHARYNG SCH ×4 (01:35→16:46)
[2018-02-20] MEDS: Dexmedetomidine Inj 1,000 MCG in Sodium Chlor 0.9% Inj 240 ML IV.CONT PRN ×3 (06:27→23:03)
[2018-02-20 07:17] LABS: Baso # (Auto) 0.1 th/mm3 (0.0-0.2); Baso % (Auto) 0.9 % (0.0-2.0); Eos % (Auto) 0.2 % (0.0-4.0); Lymph # (Auto) 1.4 th/mm3 (1.0-4.8); Lymph % (Auto) 12.8 % (9.0-44.0); Mean Corpuscular Hemoglobin 34.4 pg (27.0-34.0); Mean Corpuscular Volume 95.1 fL (80.0-100.0); Mean Platelet Volume 7.2 fL (7.0-11.0); Mono # (Auto) 0.7 th/mm3 (0.0-0.9); Mono % (Auto) 6.2 % (0.0-8.0); Neut # (Auto) 8.8 th/mm3 (1.8-7.7); Neut % (Auto) 79.9 % (16.0-70.0); Platelet Count 1023 th/mm3 (150-450); Red Blood Count 1.98 mil/mm3 (4.50-5.90); Red Cell Distribution Width 16.1 % (11.6-17.2)
[2018-02-20 07:30] LABS: Mean Corpuscular HGB Conc 36.1 % (32.0-36.0)
[2018-02-20 07:32] LABS: Hematocrit 18.9 % (39.0-51.0); Hemoglobin 6.8 gm/dL (13.0-17.0)
[2018-02-20 08:00] LABS: Anion Gap 9 meq/L (5-15); Blood Urea Nitrogen 7 mg/dL (7-18); Calcium 9.2 mg/dL (8.5-10.1); Carbon Dioxide 25.5 meq/L (21.0-32.0); Chloride 107 meq/L (98-107); Glomerular Filtration Rate Greater Than 89 mL/min (>89); Glucose,Random 130 mg/dL (74-106); Magnesium 1.6 mg/dL (1.5-2.5); Phosphorus 2.7 mg/dL (2.5-4.9); Potassium 3.2 meq/L (3.5-5.1); Sodium 141 meq/L (136-145)
[2018-02-20 08:47] LABS: Lymphocytes 4 % (9-44); Monocytes 5 % (0-8); Myelocytes 2 % (0-0); Platelet Morphology Normal (Normal)
[2018-02-20] MEDS: Heparin - SQ 10,000 UNITS/ML Vial SQ SCH ×2 (08:51→20:34)
[2018-02-20] MEDS: Famotidine 20 MG Tablet G-TUBE SCH ×2 (08:53→20:35)
[2018-02-20] MEDS: QUEtiapine 100 MG Tablet NG/OG SCH (08:53)
[2018-02-20] MEDS: Fluconazole 100 MG Tablet PO SCH (08:53)
[2018-02-20] MEDS: levETIRAcetam 500 MG Tablet NG/OG SCH ×2 (08:54→20:35)
[2018-02-20] MEDS: Aspirin 325 MG Tablet PO SCH (08:54)
[2018-02-20] MEDS: Carboxymethylcellulose 0.5% Opth Drops 15 ML Bottle EACH EYE SCH ×2 (08:55→20:36)
[2018-02-20] MEDS: Chlorhexidine 0.12% Oral Kit 15 ML UDC OROPHARYNG SCH ×2 (08:55→20:32)
[2018-02-20] MEDS: Senna/Docusate Sodium 8.6/50 MG Tablet PO SCH ×2 (08:55→20:35)
[2018-02-20] MEDS ORDERED: Diatrizoate Meglum/Diatrizoate Sod Liq 9 ML UDC PO ONE (09:00)
[2018-02-20] MEDS ORDERED: Potassium Chloride 25 MEQ Effervescent Tablet G-TUBE ONE (09:15)
[2018-02-20] MEDS ORDERED: Magnesium Sulfate Inj 4 GM in Sodium Chlor 0.9% Inj 92 ML IV.SIG ONE (10:00)
--- NOTE | 2018-02-20 10:16 | P.PNCC ---
Subjective Subjective Remarks/Hospital Course: This is a 32-year-old male. Admission 01/28/2018. Past medical history includes seizure disorder/noncompliant with levetiracetam, previous EtOH sober for 4 weeks, anorexia, gastroesophageal reflux disease and chronic pancreatitis. Patient presented to [facility] 01/28/2018 with a two-day history of nausea vomiting and diarrhea. Patient's mother/discussed at bedside stated she had just had a "stomach flu" which she has currently recovered. Mom states that the patient has become fairly dehydrated is been having some cramping of his hands. She is worried that he is getting dehydrated and his potassium might begin low. He was unable to tolerate a banana so she gave him some potassium pills p.o. which she also did not tolerate and threw up. Sober 4 weeks according to mother. Patient was noted to have a low potassium at 2.0. Creatinine of 4.0. This is in line with his previous hospitalizations for acute dehydration. Lipase was slightly elevated. Patient does have a history of seizure disorder which is not compliant with levetiracetam. ED physician was called into room because the RN believed he had a seizure. Patient was unresponsive. Mother states this was not like any seizure that she had seen. Pulses not palpable therefore CPR was initiated. Initial rhythm was V. fib. Patient received amiodarone, lidocaine, epinephrine, bicarbonate, magnesium during the 35 minute code with return of spontaneous circulation after 35 minutes. Pupils are about 9 mils bilaterally and 6. When I saw the patient patient was actively thrashing moving all 4 extremities spontaneously but not to command. Pupils are round 8 mm bilaterally and nonreactive. Brain CT revealed no acute findings. CT thorax revealed a left upper and lower lobe. CT abdomen pelvis pending at time of dictation. Likely, troponin pending. EKG revealed incomplete right bundle block with ST depression in the inferior and lateral leads. Cardiology consulted. They will evaluate after stat echocardiogram and troponins been completed. Potassium will be replaced pending [facility] 01/29: persistently in shock. following commands this AM. trop uptrended overnight and now > 40. on levo @ 10, vasopressin. bedside echo with persistence of his global severe LV systolic dysfunction. IVC dilated without respiratory variation. initially attempted therapeutic hypothermia, but became arrhythmogenic and neurologic exam improved and now following commands, so hypothermia aborted. persistently hypokalemic and hypophosphatemic this AM. in addition, remains with severe metabolic alkalosis. 01/30: Troponin trending down, continues to have severe hypokalemia and metabolic alkalosis. Creatinine continues to trend up, only produced 200 cc of urine over the past 24 hours. 01/31: Patient seen by nephrology yesterday and given bumex, urine output dramatically increased, potassium improved with aggressive repletion, pressors now off and dobutamine at 5. 02/01: No issues overnight. Patient tolerated dobutamine at 2 yesterday, discontinued this morning. Switching propofol to precedex and would like to start SBTs today. Overall improved. 02/02: Tolerated switch to precedex yesterday and was on bipap 05/06 for several hours yesterday afternoon, placed back on AC overnight to avoid respiratory fatigue. 02/03: Patient had no overnight events, tolerated SBT x 5 hours yesterday. Significantly agitated this morning during sedation vacation. 02/04: Patient still struggles with agitation when we lighten sedation. 02/05: Temp 103F this morning, no obvious source of infection. Needs to have PICC line placed today. 02/06: reintubated yesterday. overnight persistently febrile. this morning appears in distress- tachypneic on the ventilator, acidotic. potassium up to 5.8 despite medical management. bedside echo with improving LVEF and completely collapsed IVC. no pericardial effusion. lung ultrasound without effusions. 02/07: Remains sedated, orally intubated on mechanical ventilation. On propofol fentanyl and Versed drips. Transfuse 1 unit PRBCs earlier today for drop in hemoglobin. 02/08: Remains sedated, orally intubated on mechanical ventilation. On propofol fentanyl and Versed drips. Awaiting tracheostomy which is scheduled for later today. 02/09: Overnight, new onset of maculopapular rash noted. Noted discontinuation of cefepime 02/08. Received 1 dose diphenhydramine overnight. 02/10: Afebrile. Discussed with mom at bedside. Follows commands weakly bilateral upper and lower extremities. Diffuse macular papular rash improved lower extremities. Appears stable and upper thorax. On Famotidine, methylprednisolone and diphenhydramine 02/11: Afebrile. Opens eyes to voice. Following commands weakly bilateral upper lower extremity. On propofol 50 roxanne grams per kilogram, a fentanyl drip at 250 mg of midazolam drip at 6 mg an hour due to "agitation" overnight. Will wean. Increased quetiapine to 100 twice daily. 02/12: remains on vent at this time, sedated. Follows commands all extremities weakly. RN states that she increase her sedation as the patient was tachycardic and hypotensive. I will start labetalol 200 mg twice daily and attempt sedation wean. 02/13: T-max 101.5. Remains on fentanyl drip at 250 roxanne grams an hour, midazolam drip at 7 mg an hour and fentanyl drip at 250 roxanne grams an hour. Started labetalol 200 mg twice a yesterday but now hypotensive. Tube feeds currently at 10 cc an hour. 02/14: T-max 100.3. Remains on fentanyl drip at 250 roxanne grams an hour, midazolam drip at 7 mg and fentanyl drip 250 mcg an hour. 2 feedings currently at [address] pulmonary angiogram today per cardiology request. Will discuss some other possible transfer to select hospital today. 02/15: T-max 100.3. Tube feedings currently at [address] pulmonary angiogram revealed right upper lobe infiltrate/new. No pulmonary embolism. Opens eyes to voice. 02/16: T-max 100.7. Arousable to voice and close his eyes. Noted increasing platelets currently 876. Will check iron studies and peripheral smear. Again continued difficulty weaning off IV sedation due to severe agitation. 02/17: Remains febrile. Plan for bronchoscopy right upper lobe infiltrate. Please continue to increase. Tolerating tube feeds at 50 cc an hour. Positive BM. 02/18: T-max 103.2. Currently afebrile. Bronchoscopy yesterday Gram stain negative. Tube feeds at goal. 02/19: T-max 101.4. Currently sitting in chair on trach collar on dexmedetomidine drip at 1.5 mcg/kg/h SUBJECTIVE: 02/20: Last fever at noon yesterday. Currently afebrile. Currently on dexmedetomidine drip at 1.3 mg/kg/h. Increasing quetiapine to 300 mg twice daily. Transfusing 1 unit PRBCs today. Replace potassium magnesium see orders. Agitated. Out of bed to chair yesterday on trach collar currently. Objective Vital Signs / I&O: Vital Signs 02/19/18 11:00 02/19/18 12:00 02/19/18 13:00 Temperature 100.0 F H Pulse Rate 108 H 101 H 102 H Respiratory Rate 33 H 34 H 30 H Blood Pressure 128/78 132/79 131/77 Pulse Oximetry 98 96 02/19/18 14:00 02/19/18 15:00 02/19/18 15:30 Temperature Pulse Rate 110 H 113 H 107 H Respiratory Rate 31 H 31 H 20 Blood Pressure 138/80 144/90 H Pulse Oximetry 96 02/19/18 16:00 02/19/18 17:00 02/19/18 17:01 Temperature 99.0 F Pulse Rate 109 H 119 H 113 H Respiratory Rate 32 H 35 H 33 H Blood Pressure 131/81 129/84 Pulse Oximetry 95 96 02/19/18 18:00 02/19/18 18:02 02/19/18 19:00 Temperature Pulse Rate 101 H 100 H 102 H Respiratory Rate 30 H 22 28 H Blood Pressure 83/60 L 130/82 Pulse Oximetry 97 95 97 02/19/18 20:00 02/19/18 20:16 02/19/18 21:00 Temperature 99.5 F Pulse Rate 106 H 116 H Respiratory Rate 31 H 31 H Blood Pressure 127/80 123/76 Pulse Oximetry 96 95 97 02/19/18 21:20 02/19/18 22:00 02/19/18 23:00 Temperature Pulse Rate 110 H 113 H 108 H Respiratory Rate 18 24 39 H Blood Pressure 130/80 113/76 Pulse Oximetry 98 02/20/18 00:00 02/20/18 01:00 02/20/18 02:00 Temperature 99.2 F Pulse Rate 122 H 117 H 116 H Respiratory Rate 45 H Blood Pressure 143/95 H 147/78 H Pulse Oximetry 98 02/20/18 02:01 02/20/18 03:00 02/20/18 03:49 Temperature Pulse Rate 122 H 125 H 124 H Respiratory Rate 18 Blood Pressure 142/75 H 137/84 Pulse Oximetry 99 98 02/20/18 04:00 02/20/18 06:00 Temperature 99.6 F Pulse Rate 130 H 111 H Respiratory Rate 28 H Blood Pressure 150/90 H Pulse Oximetry 95 Intake & Output 02/19/18 02/20/18 02/20/18 18:59 06:59 18:59 Intake Total 1232 / 1232 1588 / 1588 Output Total 1800 / 1800 900 / 900 Balance -568 / -568 688 / 688 Weight 86.6 kg Intake: IV 650 / 650 700 / 700 Precedex Inj 1,000 MCG In NS 250 / 250 Inj 240 ML @ 0.2 MCG/KG/HR 4.27 mls/hr IV.CONT TITRATE PRN Rx# :[id number] Precedex Inj 200 MCG In NS Inj 200 / 200 50 / 50 48 ML @ 0.2 MCG/KG/HR 4.27 mls/ hr IV.CONT TITRATE PRN Rx#: [id number] Versed Inj 50 mg In 50 ml @ 2 50 / 50 MG/HR 2 mls/hr IV.CONT TITRATE PRN Rx#:[id number] Magnesium Sulfate Inj 4 GM In 100 / 100 NS Inj 92 ML @ 25 mls/hr IV.SIG ONCE ONE Rx#:[id number] Merrem Inj 1,000 MG In NS Inj 100 / 100 200 / 200 100 ML @ 200 mls/hr IV.SIG Q8H GERMAINE Rx#:[id number] Flagyl 500 MG Inj 100 ML @ 100 200 / 200 200 / 200 mls/hr IV.SIG Q6H GERMAINE Rx#: [id number] Tube Feeding 122 / 122 548 / 548 Tube Irrigant 60 / 60 300 / 300 Water Bolus Amount 400 / 400 Other 40 / 40 Output: Urine 1800 / 1800 900 / 900 Other: # Incontinent Voids 4 Date of Last Bowel Movement 02/19/18 02/20/18 # Incontinent Bowel Movements 5 2 Result Diagrams: 02/20/18 06:45 02/20/18 06:45 Other Results: Microbiology 02/17/18 13:20 Bronchial - Right Upper Lobe Gram Stain - Final 02/17/18 13:20 Bronchial - Right Upper Lobe Bronchial Culture - Final Moderate growth normal respiratory pepito 02/13/18 13:16 Blood - Peripheral Aerobic Blood Culture - Final No growth in 5 days 02/13/18 13:16 Blood - Peripheral Anaerobic Blood Culture - Final No growth in 5 days 02/13/18 13:16 Blood - Peripheral Aerobic Blood Culture - Final No growth in 5 days 02/13/18 13:16 Blood - Peripheral Anaerobic Blood Culture - Final No growth in 5 days 02/17/18 13:20 Bronchial Washings - Right Upper Lobe Fungal Smear - Final No fungal elements seen 02/13/18 11:35 Sputum - Endotracheal Gram Stain - Final 02/13/18 11:35 Sputum - Endotracheal Sputum Culture - Final Moderate growth normal respiratory pepito 02/12/18 08:30 Catheterized Urine Urine Culture - Final No growth in 48 hours 02/05/18 22:13 Blood - Peripheral Aerobic Blood Culture - Final No growth in 5 days 02/05/18 22:13 Blood - Peripheral Anaerobic Blood Culture - Final No growth in 5 days 02/05/18 22:18 Blood - Peripheral Aerobic Blood Culture - Final No growth in 5 days 02/05/18 22:18 Blood - Peripheral Anaerobic Blood Culture - Final No growth in 5 days 02/08/18 17:00 Catheterized Urine Urine Culture - Final Oliva albicans 02/06/18 08:25 Sputum - Endotracheal Gram Stain - Final 02/06/18 08:25 Sputum - Endotracheal Sputum Culture - Final Heavy growth normal respiratory pepito 02/06/18 03:00 Catheterized Urine Urine Culture - Final No growth in 48 hours 02/05/18 10:30 Stool Stool Occult Blood (ROXANNE) - Final Hemoccult negative 01/31/18 15:00 Blood - Peripheral Aerobic Blood Culture - Final Staphylococcus epidermidis 01/31/18 15:00 Blood - Peripheral Anaerobic Blood Culture - Final No growth in 5 days 01/31/18 14:45 Blood - Peripheral Aerobic Blood Culture - Final No growth in 5 days 01/31/18 14:45 Blood - Peripheral Anaerobic Blood Culture - Final No growth in 5 days 01/28/18 17:55 Blood - Peripheral Aerobic Blood Culture - Final Staphylococcus hominis-hominis 01/28/18 17:55 Blood - Peripheral Anaerobic Blood Culture - Final No growth in 5 days 01/28/18 17:50 Blood - Peripheral Aerobic Blood Culture - Final No growth in 5 days 01/28/18 17:50 Blood - Peripheral Anaerobic Blood Culture - Final No growth in 5 days 01/30/18 16:01 Catheterized Urine Urine Culture - Final No growth in 48 hours 01/28/18 13:55 Sputum - Endotracheal Gram Stain - Final 01/28/18 13:55 Sputum - Endotracheal Sputum Culture - Final Heavy growth normal respiratory pepito 01/28/18 13:49 Urine - Catheterized Urine Legionella Antigen - Final Presumptive negative for Legionella pneumophila serogroup 1 antigen in urine, suggesting no recent or recurrent infection. Infection due to Legionella cannot be ruled out since other serogroups and species may cause disease, antigen may not be present in urine in early infection, and the level of antigen present in the urine may be below the detection limit of the test. 01/28/18 13:49 Urine - Catheterized Urine Streptococcus pneumoniae Antigen ( M - Final Presumptive negative for streptococcus pneumoniae antigen, suggesting no current or recent infection. Infection due to Streptococcus pneumoniae cannot be ruled out since the antigen present in the sample may be below the detection limit of the test. 01/28/18 13:51 Nasal Aspirate Influenza Types A,B Antigen - Final Negative for FLU A and B antigen Infection due to influenza A or B cannot be ruled out since the antigen present in the sample may be below the detection limit of the test. Imaging: Abdomen/Pelvis CT 01/28/18 00:00 CONCLUSION: 1. There is a new finding of presumed pneumobilia in the left hepatic lobe. Is there a history of recent instrumentation? Portal venous gas is not entirely excluded. 2. Mild induration of the peripancreatic fat proximally suggest mild acute pancreatitis. 3. Small fat-containing umbilical hernia. 4. Pulmonary consolidation is noted as above. 5. Mild gaseous distention of the stomach. Chest CT 01/28/18 00:00 CONCLUSION: 1. Bilateral consolidation most pronounced in the left lower lobe and left upper lobe posteriorly. Chest X-Ray 01/28/18 10:15 CONCLUSION: Endotracheal tube as above. Left lung consolidation. Head CT 01/28/18 10:19 CONCLUSION: 1. Negative CT Head non contrast. . Chest X-Ray 01/29/18 09:13 CONCLUSION: Right subclavian line as above. Gallbladder Ultrasound 01/30/18 00:00 CONCLUSION: 1. Unremarkable study. Chest X-Ray 01/30/18 05:00 CONCLUSION: Stable diffuse left lung airspace consolidation with bibasilar opacities likely representing atelectasis and possible small effusions. Abdomen/Bladder Ultrasound 01/30/18 15:17 CONCLUSION: 1. Negative renal sonogram. Chest X-Ray 02/04/18 05:00 CONCLUSION: Persistent consolidation in the lower lungs, slightly improved in the left lower lung. Chest X-Ray 02/05/18 00:00 CONCLUSION: ET tube is in excellent position. Lungs still mostly clear Chest X-Ray 02/06/18 01:30 CONCLUSION: Subsegmental airspace disease improved from February 05. Endotracheal tube and nasogastric tube in good position. Head CT 02/06/18 03:50 CONCLUSION: 1. No acute intracranial abnormalities. . Abdomen X-Ray 02/08/18 00:00 CONCLUSION: NG tube placement as above. Chest X-Ray 02/08/18 14:56 CONCLUSION: 1. Consolidating infiltrate has developed in the right midlung and left base 2. Interval placement of a tracheostomy tube and removal of endotracheal tube. 3. Otherwise stable chest. Head MRI 02/09/18 00:00 CONCLUSION: 1. Normal MRI of the brain. 2. Sinusitis and mastoiditis. Chest X-Ray 02/12/18 06:00 CONCLUSION: 1. Improving airspace consolidation in the right upper lung zone. 2. Persistent patchy airspace disease in the left lower lung zone. Chest CTA 02/14/18 00:00 CONCLUSION: No evidence of pulmonary embolism. New right upper lobe pneumonia. Improving aeration on the left. Chest X-Ray 02/14/18 06:00 CONCLUSION: No significant change. Chest X-Ray 02/17/18 00:00 CONCLUSION: Persistent patchy opacities within the right upper lung and left lung base consistent with probable pneumonia. Chest X-Ray 02/17/18 06:00 CONCLUSION: No significant change right upper lobe and left midlung pneumonia. Objective Remarks: GENERAL: 32-year-old male currently on tracheostomy collar via tracheostomy 8.0 Shiley HEENT: NCAT, pupils are equal round react about 3 meals bilaterally. Extraocular muscles are intact. NECK: Trachea midline. Tracheostomy site is clean dry and intact CHEST: Few coarse crackles appreciated no wheezing. CARDIOVASCULAR: RRR. S1, S2 no S4. Without murmur ABDOMEN: Soft, non-tender in all quadrants, fresh PEG tube site is clean dry and intact with no bleeding or erythema : Positive scrotal edema MUSCULOSKELETAL: Warm and well perfused, maculopapular rash on thorax, bilateral upper and lower extremities. 1+ bilateral upper and lower extremity peripheral edema NEUROLOGICAL: Follows commands by squeezing bilateral upper and bilateral lower extremities weakly. Positive gag and cough. Talks over trach. Assessment and Plan - Assessment and Plan Plan: Neuro/Psych: Seizure disorder NOS History of EtOH sober 4 weeks History of anorexia/bulimia Acute metabolic encephalopathy Currently on dexmedetomidine drip at 1.3 mcg/kg/h Goal of RASS 0, start weaning sedation Continue levetiracetam 500 BID (home dose) Home Quetiapine currently at 100 mg twice daily, increase to 300 twice daily. 0xycodone liquid 15 mg every 6 hours Valproic acid 250 milligrams twice daily Patient has a previous history of heavy EtOH abuse and bulimia as per mother-- continue thiamine Continue thiamine 100 mg twice daily Adding low-dose clonidine 0 point milligrams twice daily. Monitor blood pressure closely CV: In-hospital cardiac arrest V. fib arrest Cardiogenic Shock-- resolved Severe LV systolic dysfunction- resolving. Septic shock Evaluated by Dr. Townsend. No further cardiac workup planned at this time. Echo 01/28: severe LV systolic dysfunction, EF 20-25%. mildly depressed RV function. no valvular lesions. continue daily ASA 325 mg daily. Continued PO thiamine supplementation for ? beriberi Echocardiogram 02/14 - the left ventricular systolic function is normal with an estimated ejection fraction in the range of 60-65%. Normal left ventricular size. Wall thickness is normal. No regional wall motion abnormalities are present. . Resp: Acute hypoxic respiratory failure- recurrent. Left upper/lower lobe pulmonary infiltrates-- improving New right upper lobe infiltrate Extubated 02/05, reintubated 02/05 for respiratory failure Status post tracheostomy by Dr. Serna 02/08 Albuterol/ipratropium aerosols every 6 hours with albuterol aerosols every 2 hours as needed for dyspnea vent bundle, hob elevated wean fio2 for goal spo2 > 90% Currently on trach collar 40%. CT pulmonary angiogram revealed right upper limits. No pulmonary embolus. GI: Elevated lipase/mild pancreatitis-- resolved Left hepatic pneumobilia history of chronic pancreatitis C. Difficile Colitis Jevity 1.5 @ 60 cc an hour per dietary recommendations. Currently at 50 cc an hour By tube famotidine for GI prophylaxis due to rash Docusate serum/senna 1 tablet twice daily for bowel regimen Renal/ : Acute kidney injury-- resolved Nance replaced 02/04. continue for accurate i/o's. Creatinine peaked around 6, continues to improve, but slowly currently 0.86. Nephrology has signed off Endo: Sliding scale insulin with Accu-Cheks to maintain euglycemia aspart insulin every 6 hours, Heme: Normocytic anemia Thrombocytosis Monitor CBC daily. Follow trends. No indication for transfusion of blood products at this time Remains on aspirin 325 mg daily Check peripheral smear. Iron studies revealed low FE/TIBC and elevated ferritin. Likely this is reactive thrombocytosis. Currently on aspirin. Appreciate hematology input and recommendations. ID: Septic shock-resolving C. Difficile Colitis Blood cultures on 01/28 and 01/31 showed coagulase negative staph hominis, likely contamination Sputum, UA and influenza all NGTD s/p zosyn for 7 days to treat pneumonia, d/c on 02/05 repeat blood cultures 02/05 no growth sent sputum culture urine culture 02/05 no growth,02/08 Oliva albicans Bronc samples 02/17 follow-up started on PO Vanc 02/05-present. IV metronidazole added 02/15 Currently on meropenem and fluconazole day #5 Pancultured again 02/13 Infectious disease following actively FEN: Hypomagnesia Hypopotassemia Replace electrolytes as clinically indicated. 80 mEq potassium chloride. 4g mag sulfate IV 1 now. Free water 100 cc every 6 hours MSK PT evaluate and treat DERM: Diffuse macular papular rash likely secondary to cefepime resolving Treated with amlodipine, diphenhydramine and methylprednisolone succinate. Added cefepime to adverse reaction with rash Access: - 01/29 - 02/05 right SC TLC - 02/04 Nance for urinary retention Prophylaxis -GI-famotidine -DVT SCD/ Subcutaneous heparin Level 2 follow-up
--- NOTE | 2018-02-20 11:43 | P.PNONC ---
Subjective Interval history: T-max 103 F. Awake, appears anxious on approach. RN at the bedside. Patient requests a cover, per RN she is awaiting for his temperature to decrease. Objective Vital Signs/Intake & Output: Vital Signs 02/19/18 12:00 02/19/18 13:00 02/19/18 14:00 Temperature 100.0 F H Pulse Rate 101 H 102 H 110 H Respiratory Rate 34 H 30 H 31 H Blood Pressure 132/79 131/77 138/80 Pulse Oximetry 96 96 02/19/18 15:00 02/19/18 15:30 02/19/18 16:00 Temperature 99.0 F Pulse Rate 113 H 107 H 109 H Respiratory Rate 31 H 20 32 H Blood Pressure 144/90 H 131/81 Pulse Oximetry 02/19/18 17:00 02/19/18 17:01 02/19/18 18:00 Temperature Pulse Rate 119 H 113 H 101 H Respiratory Rate 35 H 33 H 30 H Blood Pressure 129/84 Pulse Oximetry 95 96 97 02/19/18 18:02 02/19/18 19:00 02/19/18 20:00 Temperature 99.5 F Pulse Rate 100 H 102 H 106 H Respiratory Rate 22 28 H 31 H Blood Pressure 83/60 L 130/82 127/80 Pulse Oximetry 95 97 96 02/19/18 20:16 02/19/18 21:00 02/19/18 21:20 Temperature Pulse Rate 116 H 110 H Respiratory Rate 31 H 18 Blood Pressure 123/76 Pulse Oximetry 95 97 02/19/18 22:00 02/19/18 23:00 02/20/18 00:00 Temperature 99.2 F Pulse Rate 113 H 108 H 122 H Respiratory Rate 24 39 H 45 H Blood Pressure 130/80 113/76 143/95 H Pulse Oximetry 98 02/20/18 01:00 02/20/18 02:00 02/20/18 02:01 Temperature Pulse Rate 117 H 116 H 122 H Respiratory Rate Blood Pressure 147/78 H 142/75 H Pulse Oximetry 98 99 02/20/18 03:00 02/20/18 03:49 02/20/18 04:00 Temperature 99.6 F Pulse Rate 125 H 124 H 130 H Respiratory Rate 18 39 H Blood Pressure 137/84 150/90 H Pulse Oximetry 98 95 02/20/18 05:00 02/20/18 06:00 02/20/18 07:00 Temperature Pulse Rate 111 H 113 H 130 H Respiratory Rate 27 H 35 H 54 H Blood Pressure 136/82 142/88 H Pulse Oximetry 02/20/18 07:01 02/20/18 08:00 02/20/18 09:00 Temperature 103 F H 102.3 F H Pulse Rate 127 H 130 H 120 H Respiratory Rate 49 H 61 H 18 Blood Pressure 154/66 H 152/88 H 149/86 H Pulse Oximetry 78 L 93 L 02/20/18 10:00 02/20/18 10:01 02/20/18 10:48 Temperature Pulse Rate 129 H 132 H Respiratory Rate 36 H 43 H Blood Pressure 137/76 Pulse Oximetry 95 Intake & Output 02/19/18 02/20/18 02/20/18 18:59 06:59 18:59 Intake Total 1232 / 1232 1588 / 1588 Output Total 1800 / 1800 900 / 900 Balance -568 / -568 688 / 688 Weight 86.6 kg Intake: IV 650 / 650 700 / 700 Precedex Inj 1,000 MCG In NS 250 / 250 Inj 240 ML @ 0.2 MCG/KG/HR 4.27 mls/hr IV.CONT TITRATE PRN Rx# :[id number] Precedex Inj 200 MCG In NS Inj 200 / 200 50 / 50 48 ML @ 0.2 MCG/KG/HR 4.27 mls/ hr IV.CONT TITRATE PRN Rx#: [id number] Versed Inj 50 mg In 50 ml @ 2 50 / 50 MG/HR 2 mls/hr IV.CONT TITRATE PRN Rx#:[id number] Magnesium Sulfate Inj 4 GM In 100 / 100 NS Inj 92 ML @ 25 mls/hr IV.SIG ONCE ONE Rx#:[id number] Merrem Inj 1,000 MG In NS Inj 100 / 100 200 / 200 100 ML @ 200 mls/hr IV.SIG Q8H EFREN Rx#:[id number] Flagyl 500 MG Inj 100 ML @ 100 200 / 200 200 / 200 mls/hr IV.SIG Q6H E[facility] Rx#: [id number] Tube Feeding 122 / 122 548 / 548 Tube Irrigant 60 / 60 300 / 300 Water Bolus Amount 400 / 400 Other 40 / 40 Output: Urine 1800 / 1800 900 / 900 Other: # Incontinent Voids 4 Date of Last Bowel Movement 02/19/18 02/20/18 02/20/18 # Incontinent Bowel Movements 5 2 Result Diagrams: 02/20/18 06:45 02/20/18 06:45 Laboratory Results: Laboratory Results - last 24 hr 02/19/18 02/19/18 02/19/18 12:51 17:02 20:26 WBC RBC Hgb Hct MCV MCH MCHC RDW Plt Count MPV Prelim Diff (Auto) Neut % (Auto) Lymph % (Auto) [place] % (Auto) Eos % (Auto) Baso % (Auto) Neut # (Auto) Lymph # (Auto) [place] # (Auto) Eos # (Auto) Baso # (Auto) WBC Differential Seg Neuts % (Manual) Band Neuts % (Manual) Lymphocytes % (Manual) Monocytes % (Manual) Myelocytes % (Man) Abs Neuts (Manual) Differential Comment Platelet Estimate Platelet Morphology Sodium Potassium Chloride Carbon Dioxide Anion Gap BUN Creatinine Estimated GFR POC Glucose 125 H 132 H 146 H Random Glucose Calcium Phosphorus Magnesium Blood Type Antibody Screen MTS Gel Crossmatch 02/20/18 02/20/18 02/20/18 01:34 04:08 06:45 WBC 11.0 RBC 1.98 L Hgb 6.8 L* Hct 18.9 L* MCV 95.1 MCH 34.4 H MCHC 36.1 H RDW 16.1 Plt Count 1023 H MPV 7.2 Prelim Diff (Auto) Slide review pending Neut % (Auto) 79.9 H Lymph % (Auto) 12.8 [place] % (Auto) 6.2 Eos % (Auto) 0.2 Baso % (Auto) 0.9 Neut # (Auto) 8.8 H Lymph # (Auto) 1.4 [place] # (Auto) 0.7 Eos # (Auto) 0.0 Baso # (Auto) 0.1 WBC Differential Manual diff final Seg Neuts % (Manual) 68 Band Neuts % (Manual) 21 H Lymphocytes % (Manual) 4 L Monocytes % (Manual) 5 Myelocytes % (Man) 2 H Abs Neuts (Manual) 10.0 H Differential Comment . Platelet Estimate High H Platelet Morphology Normal Sodium Potassium Chloride Carbon Dioxide Anion Gap BUN Creatinine Estimated GFR POC Glucose 136 H 141 H Random Glucose Calcium Phosphorus Magnesium Blood Type Antibody Screen MTS Gel Crossmatch 09/02/20/18 02/20/18 06:45 08:38 10:15 WBC RBC Hgb Hct MCV MCH MCHC RDW Plt Count MPV Prelim Diff (Auto) Neut % (Auto) Lymph % (Auto) [place] % (Auto) Eos % (Auto) Baso % (Auto) Neut # (Auto) Lymph # (Auto) [place] # (Auto) Eos # (Auto) Baso # (Auto) WBC Differential Seg Neuts % (Manual) Band Neuts % (Manual) Lymphocytes % (Manual) Monocytes % (Manual) Myelocytes % (Man) Abs Neuts (Manual) Differential Comment Platelet Estimate Platelet Morphology Sodium 141 Potassium 3.2 L D Chloride 107 Carbon Dioxide 25.5 Anion Gap 9 BUN 7 Creatinine 0.70 Estimated GFR Greater than 89 POC Glucose 150 H Random Glucose 130 H Calcium 9.2 Phosphorus 2.7 Magnesium 1.6 Blood Type O Positive Antibody Screen Negative MTS Gel Crossmatch See Detail Culture Results: Microbiology 02/17/18 13:20 Gram Stain - Final Bronchial - Right Upper Lobe Bronchial Culture - Final Moderate growth normal respiratory pepito 02/13/18 13:16 Aerobic Blood Culture - Final Blood - Peripheral No growth in 5 days Anaerobic Blood Culture - Final No growth in 5 days 02/13/18 13:16 Aerobic Blood Culture - Final Blood - Peripheral No growth in 5 days Anaerobic Blood Culture - Final No growth in 5 days 02/17/18 13:20 Fungal Smear - Final Bronchial Washings - Right Upper Lobe No fungal elements seen Medications: Active Medications Generic Name Dose Route Start Last Admin Trade Name Freq PRN Reason Stop Dose Admin Acetaminophen 650 mg 01/28/18 15:00 02/19/18 07:58 Tylenol Liq NG/OG 650 mg Q6H PRN Administration FEVER Albuterol 2.5 mg 01/28/18 10:35 02/02/18 20:03 Albuterol Neb (Prn) NEB 2.5 mg Q2HR NEB PRN Administration SHORTNESS OF BREATH/WHEEZING Albuterol 1 ampul 02/17/18 16:00 02/20/18 10:46 Duoneb Neb (Efren) NEB 1 ampul Q6HR NEB EFREN Administration Artificial Tears 1 drop 02/09/18 21:00 02/20/18 08:55 Refresh Tears 0.5% Opth Drops EACH EYE 1 drop BID EFREN Administration Aspirin 325 mg 01/30/18 09:00 02/20/18 08:54 Aspirin PO 325 mg DAILY EFREN Administration Chlorhexidine Gluconate 15 ml 01/28/18 20:00 02/20/18 08:55 Peridex 0.12% Oral Kit OROPHARYNG 15 ml BID@0800,2000 EFREN Administration Clonidine HCl 0.1 mg 02/16/18 09:00 02/20/18 08:53 Catapres PO 0.1 mg Q12HR EFREN Administration Dextrose 50 ml 01/28/18 10:39 01/30/18 04:15 D50w Vial IV.PUSH 50 ml UNSCH PRN Administration PER HYPOGLYCEMIA PROTOCOL Famotidine 20 mg 02/14/18 21:00 02/20/18 08:53 Pepcid G-TUBE 20 mg BID EFREN Administration Fluconazole 100 mg 02/13/18 11:00 02/20/18 08:53 Diflucan PO 100 mg DAILY EFREN Administration Heparin Sodium (Porcine) 5,000 units 02/06/18 21:00 02/20/18 08:51 Heparin Inj SQ 5,000 units Q12HR EFREN Administration Magnesium Sulfate Inj 2 gm/ 100 mls @ 50 mls/hr 02/12/18 03:02 02/15/18 14:21 Sodium Chloride IV.SIG Infused UNSCH PRN Infusion For Magnesium 1.2 - 1.6 mg/dL Potassium Chloride 20 meq in 100 mls @ 50 mls/hr 02/12/18 03:02 02/12/18 14: 46 Kcl 20 Meq Premix Inj IV.SIG Infused Q2H PRN Infusion For Potassium 3.3 - 3.5 mEq/L Potassium Chloride 20 meq in 100 mls @ 50 mls/hr 02/12/18 03:02 02/12/18 10: 45 Kcl 20 Meq Premix Inj IV.SIG Infused Q2H PRN Infusion For Potassium 2.8 - 3.2 mEq/L Meropenem 1,000 mg/ Sodium 100 mls @ 200 mls/hr 02/13/18 12:00 02/20/18 05:15 Chloride IV.SIG Infused Q8H EFREN Infusion Metronidazole/Sodium Chloride 100 mls @ 100 mls/hr 02/15/18 14:00 02/20/18 08 :46 Flagyl 500 Mg Inj IV.SIG 100 mls/hr Q6H EFREN Administration Dexmedetomidine HCl 1,000 mcg/ 250 mls @ 4.27 mls/hr 02/19/18 21:08 02/20/18 06:27 Sodium Chloride IV.CONT 1.3 mcg/kg/hr TITRATE PRN 27.78 mls/hr Per Protocol Administration Protocol 0.2 MCG/KG/HR Insulin Aspart 0 unit 01/29/18 16:00 02/20/18 08:49 Novolog Insulin Correctional Sugar Inj SQ 5 unit Q4HR EFREN Administration Protocol Levetiracetam 500 mg 02/03/18 21:00 02/20/18 08:54 Keppra NG/OG 500 mg BID EFREN Administration Magnesium Oxide 800 mg 02/12/18 03:02 02/12/18 09:55 Mag-Ox PO 800 mg UNSCH PRN Administration For Magnesium 1.2 - 1.6 mg/dL Multivitamins 1 tab 02/04/18 11:00 02/20/18 08:54 Theragran NG/OG 1 tab DAILY EFREN Administration Ondansetron HCl 4 mg 01/28/18 10:35 02/19/18 08:46 Zofran Inj IV.PUSH 4 mg Q6H PRN Administration NAUSEA OR VOMITING Oxycodone HCl 15 mg 02/17/18 14:00 02/20/18 08:54 Roxicodone Intensol Liq PO 15 mg Q6H EFREN Administration Senna/Docusate Sodium 1 tab 01/28/18 21:00 02/20/18 08:55 Hiral-Colace PO Not Given BID EFREN Sennosides 17.2 mg 01/28/18 10:35 01/31/18 08:30 Senokot PO 17.2 mg Q12H PRN Administration Moderate Constipation Sodium Chloride 2 ml 01/28/18 21:00 02/20/18 08:55 Ns Flush IV.FLUSH 2 ml BID EFREN Administration Sodium Chloride 2 ml 01/28/18 14:54 02/05/18 09:19 Ns Flush IV.FLUSH 2 ml PRN PRN Administration FLUSH AFTER USING IV ACCESS Sterile Water 100 ml 02/17/18 13:00 02/20/18 05:48 Free Water G-TUBE 100 ml Q6HR EFREN Administration Thiamine HCl 100 mg 02/04/18 21:00 02/20/18 08:54 Vitamin B1 PO 100 mg BID EFREN Administration Valproate Sodium 250 mg 02/13/18 21:00 02/20/18 08:51 Depakene Liq PO 250 mg BID EFREN Administration Vancomycin HCl 250 mg 02/15/18 13:00 02/20/18 08:51 Vancomycin Po PO 250 mg QID EFREN Administration Objective Remarks: GENERAL: Chronically ill-appearing younger male patient, lying in bed. Anxious. SKIN: Pale, warm and dry. HEAD: Normocephalic. EYES: No scleral icterus. No injection or drainage. NECK: Supple, trachea midline. CARDIOVASCULAR: + S1/S2. Tachycardic. RESPIRATORY: Clear anteriorly. O2 via trach collar GASTROINTESTINAL: Abdomen soft, non-tender, nondistended. PEG tube in place EXTREMITIES: No cyanosis. 1+ Pitting edema to bilateral feet. MUSCULOSKELETAL: Generalized weakness NEUROLOGICAL: Makes good eye contact, mouth's words. Anxious. Assessment/Plan - Plan 32-year-old male with history of EtOH, seizures, noncompliant with his medications admitted with nausea vomiting and diarrhea. Patient subsequently had a cardiac arrest and was successfully resuscitated. He now has tracheostomy tube. He is being treated for Clostridium difficile. Hematology consulted for thrombocytosis. 1. Hemoglobin 6.8 today. 1 unit of PRBCs have been ordered by attending. 2. No treatment necessary for thrombocytosis. Await Warren 2 results which is unlikely to be positive. Pending 3. Continue treatment for Clostridium difficile; supportive care. - Attending Statement The exam, history, and the medical decision-making described in the above note were completed with the assistance of the mid-level provider. I reviewed and agree with the findings presented. I attest that I had a [id number] encounter with the patient on the same day, and personally performed and documented my assessment and findings in the medical record. No new complaints Patient has fever, ID is on the case Hemoglobin drop and will receive 1 unit of packed RBC Platelets remains elevated but stable Warren 2 mutation is still pending Monitor CBC
[2018-02-20] MEDS: Potassium Chlor 10 mEq Premix 10 MEQ/100 ML PIGGYBACK IV.SIG SCH ×3 (11:55→13:56)
--- NOTE | 2018-02-20 12:01 | P.PNID ---
Subjective Remarks: Patient is on T-piece. Trying to verbally communicate but difficult to understand. Temp of 103. Still has fever. WBC normal. Bronchoscopy culture is negative. Blood culture is negative. Status post tracheostomy 02/08/2018. This is a 32-year-old white male who presented to the emergency department with 2-day history of nausea, vomiting, and diarrhea. The patient ended up intubated after he went into ventricular fibrillation cardiac arrest and was resuscitated. He also was noted to have seizure activity. Antibiotics: IV Flagyl PO Vanco Meropenem Diflucan Lines: Has peripheral IV Lines ok Past Medical History: PAST MEDICAL HISTORY: Alcohol abuse, gastroesophageal reflux disease, hernia, depression, pancreatitis, seizure disorder, left inguinal hernia repair. Allergies/Adverse Reactions: Allergies Sulfa (Sulfonamide Antibiotics) Allergy (Severe, Verified 10/11/17 07:56) hives cefepime Adverse Reaction (Intermediate, Verified 02/15/18 10:55) Rash, Generalized Objective Vital Signs 02/19/18 12:00 02/19/18 13:00 02/19/18 14:00 Temperature 100.0 F H Pulse Rate 101 H 102 H 110 H Respiratory Rate 34 H 30 H 31 H Blood Pressure 132/79 131/77 138/80 Pulse Oximetry 96 96 02/19/18 15:00 02/19/18 15:30 02/19/18 16:00 Temperature 99.0 F Pulse Rate 113 H 107 H 109 H Respiratory Rate 31 H 20 32 H Blood Pressure 144/90 H 131/81 Pulse Oximetry 02/19/18 17:00 02/19/18 17:01 02/19/18 18:00 Temperature Pulse Rate 119 H 113 H 101 H Respiratory Rate 35 H 33 H 30 H Blood Pressure 129/84 Pulse Oximetry 95 96 97 02/19/18 18:02 02/19/18 19:00 02/19/18 20:00 Temperature 99.5 F Pulse Rate 100 H 102 H 106 H Respiratory Rate 22 28 H 31 H Blood Pressure 83/60 L 130/82 127/80 Pulse Oximetry 95 97 96 02/19/18 20:16 02/19/18 21:00 02/19/18 21:20 Temperature Pulse Rate 116 H 110 H Respiratory Rate 31 H 18 Blood Pressure 123/76 Pulse Oximetry 95 97 02/19/18 22:00 02/19/18 23:00 02/20/18 00:00 Temperature 99.2 F Pulse Rate 113 H 108 H 122 H Respiratory Rate 24 39 H 45 H Blood Pressure 130/80 113/76 143/95 H Pulse Oximetry 98 02/20/18 01:00 02/20/18 02:00 02/20/18 02:01 Temperature Pulse Rate 117 H 116 H 122 H Respiratory Rate Blood Pressure 147/78 H 142/75 H Pulse Oximetry 98 99 02/20/18 03:00 02/20/18 03:49 02/20/18 04:00 Temperature 99.6 F Pulse Rate 125 H 124 H 130 H Respiratory Rate 18 39 H Blood Pressure 137/84 150/90 H Pulse Oximetry 98 95 02/20/18 05:00 02/20/18 06:00 02/20/18 07:00 Temperature Pulse Rate 111 H 113 H 130 H Respiratory Rate 27 H 35 H 54 H Blood Pressure 136/82 142/88 H Pulse Oximetry 02/20/18 07:01 02/20/18 08:00 02/20/18 09:00 Temperature 103 F H 102.3 F H Pulse Rate 127 H 130 H 120 H Respiratory Rate 49 H 61 H 18 Blood Pressure 154/66 H 152/88 H 149/86 H Pulse Oximetry 78 L 93 L 02/20/18 10:00 02/20/18 10:01 02/20/18 10:48 Temperature Pulse Rate 129 H 132 H Respiratory Rate 36 H 43 H Blood Pressure 137/76 Pulse Oximetry 95 Intake & Output 02/19/18 02/20/18 02/20/18 18:59 06:59 18:59 Intake Total 1232 / 1232 1588 / 1588 Output Total 1800 / 1800 900 / 900 Balance -568 / -568 688 / 688 Weight 86.6 kg Intake: IV 650 / 650 700 / 700 Precedex Inj 1,000 MCG In NS 250 / 250 Inj 240 ML @ 0.2 MCG/KG/HR 4.27 mls/hr IV.CONT TITRATE PRN Rx# :[id number] Precedex Inj 200 MCG In NS Inj 200 / 200 50 / 50 48 ML @ 0.2 MCG/KG/HR 4.27 mls/ hr IV.CONT TITRATE PRN Rx#: [id number] Versed Inj 50 mg In 50 ml @ 2 50 / 50 MG/HR 2 mls/hr IV.CONT TITRATE PRN Rx#:[id number] Magnesium Sulfate Inj 4 GM In 100 / 100 NS Inj 92 ML @ 25 mls/hr IV.SIG ONCE ONE Rx#:[id number] Merrem Inj 1,000 MG In NS Inj 100 / 100 200 / 200 100 ML @ 200 mls/hr IV.SIG Q8H [facility] Rx#:[id number] Flagyl 500 MG Inj 100 ML @ 100 200 / 200 200 / 200 mls/hr IV.SIG Q6H [facility] Rx#: [id number] Tube Feeding 122 / 122 548 / 548 Tube Irrigant 60 / 60 300 / 300 Water Bolus Amount 400 / 400 Other 40 / 40 Output: Urine 1800 / 1800 900 / 900 Other: # Incontinent Voids 4 Date of Last Bowel Movement 02/19/18 02/20/18 02/20/18 # Incontinent Bowel Movements 5 2 02/17/18 13:20 Bronchial - Right Upper Lobe Gram Stain - Final 02/17/18 13:20 Bronchial - Right Upper Lobe Bronchial Culture - Final Moderate growth normal respiratory pepito 02/13/18 13:16 Blood - Peripheral Aerobic Blood Culture - Final No growth in 5 days 02/13/18 13:16 Blood - Peripheral Anaerobic Blood Culture - Final No growth in 5 days 02/13/18 13:16 Blood - Peripheral Aerobic Blood Culture - Final No growth in 5 days 02/13/18 13:16 Blood - Peripheral Anaerobic Blood Culture - Final No growth in 5 days 02/17/18 13:20 Bronchial Washings - Right Upper Lobe Fungal Smear - Final No fungal elements seen 02/17/18 13:20 Bronchial Washings - Right Upper Lobe Fungal Culture - Pending 02/17/18 13:20 Bronchial Washings - Right Upper Lobe Acid Fast Bacilli Smear - Pending 02/17/18 13:20 Bronchial Washings - Right Upper Lobe Mycobacterial Culture - Pending Lab - Hematology Results 02/18/18 02/19/18 02/20/18 20:54 08:40 06:45 WBC 10.3 11.0 RBC 2.26 L 1.98 L Hgb 7.4 L 6.8 L* Hct 22.0 L 18.9 L* MCV 97.5 95.1 MCH 32.9 34.4 H MCHC 33.7 36.1 H RDW 15.7 16.1 Plt Count 1054 H 1023 H MPV 7.5 7.2 Prelim Diff (Auto) Slide review pending Slide review pending Neut % (Auto) 73.6 H 79.9 H Lymph % (Auto) 15.7 12.8 [place] % (Auto) 6.2 6.2 Eos % (Auto) 2.9 0.2 Baso % (Auto) 1.6 0.9 Neut # (Auto) 7.6 8.8 H Lymph # (Auto) 1.6 1.4 [place] # (Auto) 0.6 0.7 Eos # (Auto) 0.3 0.0 Baso # (Auto) 0.2 0.1 WBC Differential Manual diff final Manual diff final Seg Neuts % (Manual) 67 68 Band Neuts % (Manual) 14 H 21 H Lymphocytes % (Manual) 9 4 L Monocytes % (Manual) 5 5 Eosinophils % (Manual) 2 Basophils % (Manual) 1 Metamyelocytes % (Man) 2 H Myelocytes % (Man) 2 H Abs Neuts (Manual) 8.5 H 10.0 H Differential Comment . . Platelet Estimate High H High H Platelet Morphology Normal Normal ESR Greater than 140 H Lab - Chemistry Results 02/18/18 02/18/18 02/18/18 12:48 17:20 20:26 Sodium Potassium Chloride Carbon Dioxide Anion Gap BUN Creatinine Estimated GFR POC Glucose 108 93 90 Random Glucose Calcium Phosphorus Magnesium C-Reactive Protein 02/18/18 02/19/18 02/19/18 20:54 00:03 04:07 Sodium 140 Potassium 4.4 Chloride 105 Carbon Dioxide 25.2 Anion Gap 10 BUN 7 Creatinine 0.64 Estimated GFR Greater than 89 POC Glucose 135 H Random Glucose 102 Calcium 9.4 Phosphorus 3.4 Magnesium 1.6 C-Reactive Protein 11.00 H 02/19/18 02/19/18 02/19/18 05:05 08:16 12:51 Sodium Potassium Chloride Carbon Dioxide Anion Gap BUN Creatinine Estimated GFR POC Glucose 125 H 130 H 125 H Random Glucose Calcium Phosphorus Magnesium C-Reactive Protein 02/19/18 02/19/18 02/20/18 17:02 20:26 01:34 Sodium Potassium Chloride Carbon Dioxide Anion Gap BUN Creatinine Estimated GFR POC Glucose 132 H 146 H 136 H Random Glucose Calcium Phosphorus Magnesium C-Reactive Protein 02/20/18 02/20/18 02/20/18 04:08 06:45 08:38 Sodium 141 Potassium 3.2 L D Chloride 107 Carbon Dioxide 25.5 Anion Gap 9 BUN 7 Creatinine 0.70 Estimated GFR Greater than 89 POC Glucose 141 H 150 H Random Glucose 130 H Calcium 9.2 Phosphorus 2.7 Magnesium 1.6 C-Reactive Protein Imaging: ITS Impressions Abdomen/Pelvis CT 01/28/18 00:00 CONCLUSION: 1. There is a new finding of presumed pneumobilia in the left hepatic lobe. Is there a history of recent instrumentation? Portal venous gas is not entirely excluded. 2. Mild induration of the peripancreatic fat proximally suggest mild acute pancreatitis. 3. Small fat-containing umbilical hernia. 4. Pulmonary consolidation is noted as above. 5. Mild gaseous distention of the stomach. Chest CT 01/28/18 00:00 CONCLUSION: 1. Bilateral consolidation most pronounced in the left lower lobe and left upper lobe posteriorly. Gallbladder Ultrasound 01/30/18 00:00 CONCLUSION: 1. Unremarkable study. Abdomen/Bladder Ultrasound 01/30/18 15:17 CONCLUSION: 1. Negative renal sonogram. Head CT 02/06/18 03:50 CONCLUSION: 1. No acute intracranial abnormalities. . Abdomen X-Ray 02/08/18 00:00 CONCLUSION: NG tube placement as above. Head MRI 02/09/18 00:00 CONCLUSION: 1. Normal MRI of the brain. 2. Sinusitis and mastoiditis. Chest CTA 02/14/18 00:00 CONCLUSION: No evidence of pulmonary embolism. New right upper lobe pneumonia. Improving aeration on the left. Chest X-Ray 02/17/18 06:00 CONCLUSION: No significant change right upper lobe and left midlung pneumonia. Physical Exam: PHYSICAL EXAMINATION: GENERAL: Awake. On T- piece. No distress. HEENT: Pupils are equal and reactive. No icterus. NECK: No adenopathy or swelling. LUNGS: Decreased breath sounds. HEART: Regular S1 and S2. No murmurs heard. ABDOMEN: Bowel sounds present. Soft. No tenderness appreciated. EXTREMITIES: No clubbing, cyanosis; edema of the hands. SKIN: resolved rash. NEUROLOGIC: Non focal. PSYCHIATRIC: Unable to fully assess. Assessment and Plan - Plan IMPRESSION: 1. Possible sepsis. However cultures have been negative. Previous staph coagulase positive blood culture felt to be contamination. Subsequent cultures negative. No clear source. 2. Skin rash. Likely drug related. Probably cefepime was associated. 3. Pneumonia. Suspect aspiration. 4. Status post cardiac arrest. 5. Acute respiratory failure. Patient now post tracheostomy. 6. Acute renal failure. Improved. 7. Seizure disorder. 8. Diarrhea. Questionable antibiotic associated. 9. Oliva UTI. 10. Leukocytosis improved. 11. C. difficile colitis. I spoke to microbiology regarding the C. difficile PCR test. 12. Still having fever. ? drug. RECOMMENDATIONS: 1. Continue Diflucan. 2. Stop Meropenem and follow temperature. 3. Continue intravenous Flagyl for C. difficile. 4. Continue p.o. vancomycin for C. difficile. 5. Monitor clinical status.
--- NOTE | 2018-02-20 18:29 | CT ---
EXAM DATE: 02/20/2018 6:15 PM EDT AGE/SEX: 32 years / Male INDICATIONS: Abdominal pain. CLINICAL DATA: This is the patient's initial encounter. Patient reports that signs and symptoms have been present for 1 day and indicates a pain score of Nonresponsive. MEDICAL/SURGICAL HISTORY: Gastroesophageal reflux disease. Pancreatitis. Seizures. None. ORAL CONTRAST: Prescribed oral contrast ingested. RADIATION DOSE: 14.02 CTDI (mGy) COMPARISON: [facility] [place], CT ABDOMEN & PELVIS W CONTRAST, 05/02/2016. [facility] [place], CT ABDOMEN & PELVIS W/O CONTRA ST, 01/28/2018. . TECHNIQUE: Multiple contiguous axial images were obtained through the abdomen and pelvis following b olus infusion of 80 ml Omnipaque 350 (iohexol) nonionic water-soluble contrast as a single exam dos e. Prescribed oral contrast ingested. Using automated exposure control and adjustment of the mA and/ or kV according to patient size, radiation dose was kept as low as reasonably achievable to obtain op timal diagnostic quality images. DICOM format image data is available electronically for review and comparison. FINDINGS: Lower Lungs: There is a new right-sided pleural effusion measuring up to 4 cm thickness. Previously n oted left pleural effusion has decreased in size and measures forceps 4 cm. There is compressive atel ectasis adjacent to both pleural effusions and patchy subsegmental infiltrates in the anterior right lower lung and stable patchy infiltrates in the left lower.. Liver: The liver has a homogeneous density without space-occupying lesion. There is no dilation of th e biliary tree. No calcified stones in a contracted gallbladder. Spleen: Homogeneous density without enlargement. Pancreas: There is a new 6 cm oval fluid collection adjacent to the tail of the pancreas, a new find ing when compared to 01/28/2018. The head and body of the pancreas have a normal configuration. No panc reatic ductal dilatation seen. Kidneys: Normal in size and shape. No evidence of mass or hydronephrosis. Adrenal Glands: Unremarkable. Aorta: The aorta and proximal iliac vessels are grossly unremarkable without aneurysmal dilation. Bowel/Mesentery: Percutaneous gastrostomy in place. There is thickening of the posterior gastric wal l in the fundus. No dilated loops of small bowel. Oral contrast passes through to the rectum stop no evidence of free fluid in the dependent pelvis. Abdominal Wall: Intact. Interval development of thickening and subcutaneous edema about the lateral abdominal and pelvic wall. Retroperitoneum: No evidence of adenopathy in the retrocrural, para-aortic, or deep pelvic regions. Bladder: Contours are smooth. Reproductive Organs: No abnormal masses or calcifications seen. Inguinal: The inguinal region is unremarkable without evidence of adenopathy. Bony Structures: Unremarkable. CONCLUSION: 1. Interval development of 6 cm smooth margin low density cystic structure about the tail of the coto creas suggesting possible pseudocyst formation. 2. Percutaneous gastrostomy in place. No evidence of free intraperitoneal gas or free fluid. 3. Development of diffuse anasarca. 4. Interval development development of moderate-sized right pleural effusion and multifocal subsegme ntal areas of infiltrate in the right lower lung and decrease in size of left pleural effusion. Electronically signed by: Chad Humphries MD 02/20/2018 6:28 PM EDT
[2018-02-21] MEDS: Insulin NovoLOG Aspart Correctional Sugar Inj SQ SCH ×6 (00:36→20:16)
[2018-02-21] MEDS: Oral Hygiene Kit OROPHARYNG SCH ×4 (00:36→17:06)
[2018-02-21] MEDS ORDERED: Midazolam Inj 5 MG/ML 1 ML Vial IV.PUSH SCH (04:55)
--- NOTE | 2018-02-21 06:11 | XR ---
EXAM DATE: 02/21/2018 6:06 AM EDT AGE/SEX: 32 years / Male INDICATIONS: Short of breath. CLINICAL DATA: This is the patient's subsequent encounter. Patient reports that signs and symptoms h ave been present for 1 week and indicates a pain score of 0/10. MEDICAL/SURGICAL HISTORY: Non-responsive. Non-responsive. COMPARISON: [facility] [place], CHEST 1V SINGLE AP, 02/17/2018. . FINDINGS: Single AP view the chest. Tracheostomy tube remains in place. Increase in extent and severity of bila teral pulmonary parenchymal opacity. The opacity is now diffuse. No evidence of pleural effusion or p neumothorax. Cardiomediastinal silhouette unchanged. CONCLUSION: Marked increase in bilateral pulmonary parenchymal opacity, now diffuse. Differential diagnosis inclu thomas pulmonary edema and infection. Electronically signed by: Ruddy Coleman MD 02/21/2018 6:09 AM EDT
[2018-02-21] MEDS: Dexmedetomidine Inj 1,000 MCG in Sodium Chlor 0.9% Inj 240 ML IV.CONT PRN ×2 (06:57→17:17)
[2018-02-21 07:38] LABS: Baso # (Auto) 0.2 th/mm3 (0.0-0.2); Baso % (Auto) 0.8 % (0.0-2.0); Hemoglobin 7.7 gm/dL (13.0-17.0); Lymph # (Auto) 1.3 th/mm3 (1.0-4.8); Mean Corpuscular HGB Conc 33.5 % (32.0-36.0); Mean Corpuscular Volume 95.5 fL (80.0-100.0); Mean Platelet Volume 7.3 fL (7.0-11.0); Mono # (Auto) 1.7 th/mm3 (0.0-0.9); Mono % (Auto) 7.6 % (0.0-8.0); Neut # (Auto) 18.9 th/mm3 (1.8-7.7); Neut % (Auto) 85.6 % (16.0-70.0); Platelet Count 869 th/mm3 (150-450); Red Blood Count 2.41 mil/mm3 (4.50-5.90); Red Cell Distribution Width 16.6 % (11.6-17.2)
[2018-02-21 08:32] LABS: Alanine Aminotransferase 16 U/L (12-78); Albumin 1.8 g/dL (3.4-5.0); Alkaline Phosphatase 107 U/L (45-117); Anion Gap 13 meq/L (5-15); Blood Urea Nitrogen 10 mg/dL (7-18); Carbon Dioxide 25.1 meq/L (21.0-32.0); Chloride 107 meq/L (98-107); Glomerular Filtration Rate Greater Than 89 mL/min (>89); Glucose,Random 115 mg/dL (74-106); Magnesium 1.9 mg/dL (1.5-2.5); Phosphorus 3.2 mg/dL (2.5-4.9); Sodium 145 meq/L (136-145); Total Protein 5.9 g/dL (6.4-8.2)
[2018-02-21 09:08] LABS: Aspartate Aminotransferase 38 U/L (15-37); Potassium 3.7 meq/L (3.5-5.1)
[2018-02-21] MEDS: Famotidine 20 MG Tablet G-TUBE SCH ×2 (09:42→20:26)
[2018-02-21] MEDS: Aspirin 325 MG Tablet PO SCH (09:43)
[2018-02-21] MEDS: Fluconazole 100 MG Tablet PO SCH (09:43)
[2018-02-21] MEDS: levETIRAcetam 500 MG Tablet NG/OG SCH ×2 (09:43→20:21)
[2018-02-21] MEDS: Carboxymethylcellulose 0.5% Opth Drops 15 ML Bottle EACH EYE SCH ×2 (09:44→20:23)
[2018-02-21] MEDS: Magnesium Oxide 400 MG Tablet PO SCH ×2 (09:44→20:22)
[2018-02-21] MEDS: Heparin - SQ 10,000 UNITS/ML Vial SQ SCH ×2 (09:44→20:20)
[2018-02-21] MEDS: Senna/Docusate Sodium 8.6/50 MG Tablet PO SCH ×2 (09:45→20:22)
[2018-02-21] MEDS: Chlorhexidine 0.12% Oral Kit 15 ML UDC OROPHARYNG SCH ×2 (09:45→20:17)
--- NOTE | 2018-02-21 09:59 | P.PNCC ---
Subjective Subjective Remarks/Hospital Course: This is a 32-year-old male. Admission 01/28/2018. Past medical history includes seizure disorder/noncompliant with levetiracetam, previous EtOH sober for 4 weeks, anorexia, gastroesophageal reflux disease and chronic pancreatitis. Patient presented to [facility] 01/28/2018 with a two-day history of nausea vomiting and diarrhea. Patient's mother/discussed at bedside stated she had just had a "stomach flu" which she has currently recovered. Mom states that the patient has become fairly dehydrated is been having some cramping of his hands. She is worried that he is getting dehydrated and his potassium might begin low. He was unable to tolerate a banana so she gave him some potassium pills p.o. which she also did not tolerate and threw up. Sober 4 weeks according to mother. Patient was noted to have a low potassium at 2.0. Creatinine of 4.0. This is in line with his previous hospitalizations for acute dehydration. Lipase was slightly elevated. Patient does have a history of seizure disorder which is not compliant with levetiracetam. ED physician was called into room because the RN believed he had a seizure. Patient was unresponsive. Mother states this was not like any seizure that she had seen. Pulses not palpable therefore CPR was initiated. Initial rhythm was V. fib. Patient received amiodarone, lidocaine, epinephrine, bicarbonate, magnesium during the 35 minute code with return of spontaneous circulation after 35 minutes. Pupils are about 9 mils bilaterally and 6. When I saw the patient patient was actively thrashing moving all 4 extremities spontaneously but not to command. Pupils are round 8 mm bilaterally and nonreactive. Brain CT revealed no acute findings. CT thorax revealed a left upper and lower lobe. CT abdomen pelvis pending at time of dictation. Likely, troponin pending. EKG revealed incomplete right bundle block with ST depression in the inferior and lateral leads. Cardiology consulted. They will evaluate after stat echocardiogram and troponins been completed. Potassium will be replaced pending [facility] 01/29: persistently in shock. following commands this AM. trop uptrended overnight and now > 40. on levo @ 10, vasopressin. bedside echo with persistence of his global severe LV systolic dysfunction. IVC dilated without respiratory variation. initially attempted therapeutic hypothermia, but became arrhythmogenic and neurologic exam improved and now following commands, so hypothermia aborted. persistently hypokalemic and hypophosphatemic this AM. in addition, remains with severe metabolic alkalosis. 01/30: Troponin trending down, continues to have severe hypokalemia and metabolic alkalosis. Creatinine continues to trend up, only produced 200 cc of urine over the past 24 hours. 01/31: Patient seen by nephrology yesterday and given bumex, urine output dramatically increased, potassium improved with aggressive repletion, pressors now off and dobutamine at 5. 02/01: No issues overnight. Patient tolerated dobutamine at 2 yesterday, discontinued this morning. Switching propofol to precedex and would like to start SBTs today. Overall improved. 02/02: Tolerated switch to precedex yesterday and was on bipap 05/06 for several hours yesterday afternoon, placed back on AC overnight to avoid respiratory fatigue. 02/03: Patient had no overnight events, tolerated SBT x 5 hours yesterday. Significantly agitated this morning during sedation vacation. 02/04: Patient still struggles with agitation when we lighten sedation. 02/05: Temp 103F this morning, no obvious source of infection. Needs to have PICC line placed today. 02/06: reintubated yesterday. overnight persistently febrile. this morning appears in distress- tachypneic on the ventilator, acidotic. potassium up to 5.8 despite medical management. bedside echo with improving LVEF and completely collapsed IVC. no pericardial effusion. lung ultrasound without effusions. 02/07: Remains sedated, orally intubated on mechanical ventilation. On propofol fentanyl and Versed drips. Transfuse 1 unit PRBCs earlier today for drop in hemoglobin. 02/08: Remains sedated, orally intubated on mechanical ventilation. On propofol fentanyl and Versed drips. Awaiting tracheostomy which is scheduled for later today. 02/09: Overnight, new onset of maculopapular rash noted. Noted discontinuation of cefepime 02/08. Received 1 dose diphenhydramine overnight. 02/10: Afebrile. Discussed with mom at bedside. Follows commands weakly bilateral upper and lower extremities. Diffuse macular papular rash improved lower extremities. Appears stable and upper thorax. On Famotidine, methylprednisolone and diphenhydramine 02/11: Afebrile. Opens eyes to voice. Following commands weakly bilateral upper lower extremity. On propofol 50 roxanne grams per kilogram, a fentanyl drip at 250 mg of midazolam drip at 6 mg an hour due to "agitation" overnight. Will wean. Increased quetiapine to 100 twice daily. 02/12: remains on vent at this time, sedated. Follows commands all extremities weakly. RN states that she increase her sedation as the patient was tachycardic and hypotensive. I will start labetalol 200 mg twice daily and attempt sedation wean. 02/13: T-max 101.5. Remains on fentanyl drip at 250 roxanne grams an hour, midazolam drip at 7 mg an hour and fentanyl drip at 250 roxanne grams an hour. Started labetalol 200 mg twice a yesterday but now hypotensive. Tube feeds currently at 10 cc an hour. 02/14: T-max 100.3. Remains on fentanyl drip at 250 roxanne grams an hour, midazolam drip at 7 mg and fentanyl drip 250 mcg an hour. 2 feedings currently at [address] pulmonary angiogram today per cardiology request. Will discuss some other possible transfer to select hospital today. 02/15: T-max 100.3. Tube feedings currently at [address] pulmonary angiogram revealed right upper lobe infiltrate/new. No pulmonary embolism. Opens eyes to voice. 02/16: T-max 100.7. Arousable to voice and close his eyes. Noted increasing platelets currently 876. Will check iron studies and peripheral smear. Again continued difficulty weaning off IV sedation due to severe agitation. 02/17: Remains febrile. Plan for bronchoscopy right upper lobe infiltrate. Please continue to increase. Tolerating tube feeds at 50 cc an hour. Positive BM. 02/18: T-max 103.2. Currently afebrile. Bronchoscopy yesterday Gram stain negative. Tube feeds at goal. 02/19: T-max 101.4. Currently sitting in chair on trach collar on dexmedetomidine drip at 1.5 mcg/kg/h SUBJECTIVE: 02/20: Last fever at noon yesterday. Currently afebrile. Currently on dexmedetomidine drip at 1.3 mg/kg/h. Increasing quetiapine to 300 mg twice daily. Transfusing 1 unit PRBCs today. Replace potassium magnesium see orders. Agitated. Out of bed to chair yesterday on trach collar currently. 02/21: Acute change in status overnight became acutely short of breath was placed back on the ventilator. Chest x-ray done today a.m. shows diffuse worsening bilateral pulmonary infiltrates pulmonary edema/ARDS. Recent bronch and blood cultures have been negative. Appears to be developing severe sepsis with probable ARDS. Received 60 mg IV Lasix overnight Objective Vital Signs / I&O: Vital Signs 02/20/18 10:00 02/20/18 10:01 02/20/18 10:48 Temperature Pulse Rate 129 H 132 H Respiratory Rate 36 H 43 H Blood Pressure 137/76 Pulse Oximetry 95 02/20/18 11:00 02/20/18 12:00 02/20/18 12:13 Temperature 103.2 F H Pulse Rate 121 H 112 H 114 H Respiratory Rate 40 H 32 H 25 H Blood Pressure 121/72 148/88 H 141/92 H Pulse Oximetry 80 L 97 02/20/18 12:23 02/20/18 12:39 02/20/18 13:00 Temperature 103.8 F H 102.9 F H Pulse Rate 117 H 104 H 107 H Respiratory Rate 40 H 30 H 44 H Blood Pressure 141/92 H 130/74 137/80 Pulse Oximetry 96 96 80 L 02/20/18 13:02 02/20/18 14:00 02/20/18 15:00 Temperature Pulse Rate 104 H 106 H 101 H Respiratory Rate 44 H 43 H 45 H Blood Pressure 130/74 135/83 137/96 H Pulse Oximetry 94 L 95 87 L 02/20/18 16:00 02/20/18 18:00 02/20/18 20:00 Temperature 102.8 F H 102.4 F H Pulse Rate 111 H 116 H 124 H Respiratory Rate 50 H 38 H Blood Pressure 146/90 H 158/106 H Pulse Oximetry 83 L 90 L 02/20/18 20:40 02/20/18 21:08 02/20/18 22:00 Temperature Pulse Rate 119 H 112 H Respiratory Rate 36 H 38 H Blood Pressure Pulse Oximetry 93 L 02/21/18 00:00 02/21/18 02:00 02/21/18 02:35 Temperature 101.2 F H Pulse Rate 123 H 123 H Respiratory Rate 40 H 40 H Blood Pressure 141/91 H Pulse Oximetry 92 L 02/21/18 03:55 02/21/18 04:00 02/21/18 04:09 Temperature 101.4 F H Pulse Rate 136 H 130 H Respiratory Rate 40 H 45 H 40 H Blood Pressure 144/97 H Pulse Oximetry 86 L 95 02/21/18 05:54 02/21/18 06:00 02/21/18 07:50 Temperature Pulse Rate 135 H Respiratory Rate 50 H 42 H Blood Pressure Pulse Oximetry 94 L 96 02/21/18 09:09 02/21/18 09:34 Temperature Pulse Rate 116 H Respiratory Rate 51 H 29 H Blood Pressure Pulse Oximetry 100 Intake & Output 02/20/18 02/21/18 02/21/18 18:59 06:59 18:59 Intake Total 1997 / 1997 1735 / 1735 Output Total 525 / 525 1850 / 1850 Balance 1473 / 1473 -115 / -115 Weight 86.8 kg Intake: IV 750 / 750 1000 / 1000 Precedex Inj 1,000 MCG In NS 250 / 250 500 / 500 Inj 240 ML @ 0.2 MCG/KG/HR 4.27 mls/hr IV.CONT TITRATE PRN Rx# :[id number] Diprivan 1000 mg/100 ml Inj 1, 100 / 100 000 mg In 100 ml @ 5 MCG/KG/MIN 2.58 mls/hr IV.CONT TITRATE PRN Rx#:[id number] Magnesium Sulfate Inj 4 GM In 100 / 100 NS Inj 92 ML @ 25 mls/hr IV.SIG ONCE ONE Rx#:[id number] KCl 10 mEq Premix Inj 10 meq In 200 / 200 100 / 100 100 ml @ 100 mls/hr IV.SIG Q1H GERMAINE Rx#:[id number] fentaNYL 10 mcg/mL Premix Drip 100 / 100 2,500 mcg In 250 ml @ 50 MCG/HR 5 mls/hr IV.SIG TITRATE PRN Rx #:[id number] Flagyl 500 MG Inj 100 ML @ 100 200 / 200 200 / 200 mls/hr IV.SIG Q6H GERMAINE Rx#: [id number] Tube Feeding 258 / 258 535 / 535 Tube Irrigant 240 / 240 Water Bolus Amount 750 / 750 200 / 200 Intake (Blood Product) Amt 0 / 0 Rbc As-3 Leukoreduced Unit 0 / 0 [id number] Output: Urine 525 / 525 1850 / 1850 Other: # Voids 2 1 Date of Last Bowel Movement 02/20/18 02/21/18 # Bowel Movements 1 4 Result Diagrams: 02/21/18 06:53 02/21/18 06:53 Objective Remarks: GENERAL: 32-year-old male currently on CPAP via tracheostomy 8.0 Shiley, tachypneic respiratory rate 50/mt HEENT: NCAT, pupils are equal round react about 3 meals bilaterally. Extraocular muscles are intact. NECK: Trachea midline. Tracheostomy site is clean dry and intact CHEST: Bilateral coarse crackles and rhonchi. Change from CPAP to PRVC for vent support with slight improvement in respiratory rate to 40/min CARDIOVASCULAR: RRR. S1, S2 no S4. Without murmur ABDOMEN: Soft, non-tender in all quadrants, PEG tube site is clean dry and intact with no bleeding or erythema : Positive scrotal edema MUSCULOSKELETAL: Warm and well perfused, maculopapular rash on thorax, bilateral upper and lower extremities. 1+ bilateral upper and lower extremity peripheral edema NEUROLOGICAL: Follows commands by squeezing bilateral upper and bilateral lower extremities weakly.Talks over trach. Assessment and Plan - Assessment and Plan Plan: Neuro/Psych: Seizure disorder NOS History of EtOH sober 4 weeks History of anorexia/bulimia Acute metabolic encephalopathy Currently on dexmedetomidine drip at 1.5 mcg/kg/h. At propofol due to acute change in respiratory status for vent synchrony Goal of RASS -2 Continue levetiracetam 500 BID (home dose) Quetiapine 300 twice daily. Oxycodone liquid 15 mg every 6 hours Valproic acid 250 milligrams twice daily Patient has a previous history of heavy EtOH abuse and bulimia as per mother-- continue thiamine Continue thiamine 100 mg twice daily Low-dose clonidine 0.1 point milligrams twice daily. Monitor blood pressure closely CV: In-hospital cardiac arrest V. fib arrest Cardiogenic Shock-- resolved Severe LV systolic dysfunction- resolving. Septic shock New onset pulmonary edema cardiogenic versus ARDS Evaluated by Dr. Townsend. No further cardiac workup planned at this time. Echo 01/28: severe LV systolic dysfunction, EF 20-25%. mildly depressed RV function. no valvular lesions. Repeat limited echo due to new onset pulmonary edema Received 60 mg of Lasix placed on 20 mg IV every 8 hours, with potassium supplement Continue daily ASA 325 mg daily. Continued PO thiamine supplementation for ? beriberi Echocardiogram 02/14 - the left ventricular systolic function normal with an estimated EF in the range of 60-65%. Normal left ventricular size. Wall thickness is normal. No RWMA Resp: Acute hypoxic respiratory failure- recurrent. Left upper/lower lobe pulmonary infiltrates- improving New onset bilateral extensive infiltrates/pulmonary edema Probable ARDS Was tolerating trach collar overnight developed severe pulmonary edema placed back on ventilator CT of the chest ordered to evaluate infiltrates and effusion Extubated 02/05, reintubated 02/05 for respiratory failure. Status post tracheostomy by Dr. Serna 02/08 Albuterol/ipratropium aerosols every 6 hours with albuterol aerosols every 2 hours as needed for dyspnea Vent bundle, hob elevated. wean fio2 for goal spo2 > 90%. Currently on trach collar 40%. CT pulmonary angiogram revealed right upper limits. No pulmonary embolus. GI: Elevated lipase/mild pancreatitis-- resolved Left hepatic pneumobilia history of chronic pancreatitis C. Difficile Colitis Jevity 1.5 @ 60 cc an hour per dietary recommendations. Currently at 50 cc an hour By tube famotidine for GI prophylaxis due to rash Docusate serum/senna 1 tablet twice daily for bowel regimen Renal/ : Acute kidney injury-- resolved Nance replaced 02/04. continue for accurate i/o's. Creatinine peaked around 6, continues to improve, but slowly currently 0.86. Nephrology has signed off IV Lasix as above Endo: Sliding scale insulin with Accu-Cheks to maintain euglycemia aspart insulin every 6 hours, Heme: Normocytic anemia Thrombocytosis Monitor CBC daily. Follow trends. No indication for transfusion of blood products at this time Remains on aspirin 325 mg daily Iron studies revealed low FE/TIBC and elevated ferritin. Likely this is reactive thrombocytosis. Currently on aspirin. Appreciate hematology input and recommendations. ID: Severe sepsis C. Difficile Colitis Repeat sputum blood and urine culture today CT chest to evaluate for infiltrate Blood cultures on 01/28 and 01/31 showed coagulase negative staph hominis, likely contamination Sputum, UA and influenza all NGTD s/p zosyn for 7 days to treat pneumonia, d/c on 02/05 started on PO Vanc 02/05-present. IV metronidazole added 02/15 Currently on meropenem and fluconazole day #6 Pancultured again 02/13 Infectious disease following actively repeat blood cultures 02/05 no growth sent sputum culture urine culture 02/05 no growth,02/08 Oliva albicans Bronc samples 02/17 follow-up FEN: Hypomagnesia Hypopotassemia Replace electrolytes as clinically indicated. 80 mEq potassium chloride. 4g mag sulfate IV 1 now. Free water 100 cc every 6 hours MSK PT evaluate and treat DERM: Diffuse macular papular rash likely secondary to cefepime resolving Treated with amlodipine, diphenhydramine and methylprednisolone succinate. Added cefepime to adverse reaction with rash Access: - 01/29 - 02/05 right SC TLC - 02/04 Nance for urinary retention Prophylaxis -GI-famotidine -DVT SCD/ Subcutaneous heparin CCT 45 Patient condition acutely worsened overnight with severe hypoxemic respiratory failure, severe pulmonary edema requiring mechanical ventilatory support. Further workup as above. Clinically unstable and critically ill Code Status: Full
[2018-02-21 10:41] LABS: ABG Base Excess 5.5 mmol/L (-2-2); ABG PCO2 28 mmHg (38-42); ABG PO2 83 mmHG (61-120)
[2018-02-21] MEDS: Potassium Chloride 25 MEQ Effervescent Tablet NG/OG SCH ×2 (11:48→20:21)
--- NOTE | 2018-02-21 11:48 | P.PNID ---
Subjective Remarks: Back on the vent. Awakens and communicating despite sedation. Temperature continues to spike and is more sustained. WBC increased. Bronchoscopy culture is negative. New cultures pending. Worsened diffuse bilateral lung infiltrate. Status post tracheostomy 02/08/2018. This is a 32-year-old white male who presented to the emergency department with 2-day history of nausea, vomiting, and diarrhea. The patient ended up intubated after he went into ventricular fibrillation cardiac arrest and was resuscitated. He also was noted to have seizure activity. Antibiotics: IV Flagyl PO Vanco Diflucan Lines: Has peripheral IV Lines ok Past Medical History: PAST MEDICAL HISTORY: Alcohol abuse, gastroesophageal reflux disease, hernia, depression, pancreatitis, seizure disorder, left inguinal hernia repair. Allergies/Adverse Reactions: Allergies Sulfa (Sulfonamide Antibiotics) Allergy (Severe, Verified 10/11/17 07:56) hives cefepime Adverse Reaction (Intermediate, Verified 02/15/18 10:55) Rash, Generalized Objective Vital Signs 02/20/18 12:00 02/20/18 12:13 02/20/18 12:23 Temperature 103.2 F H 103.8 F H Pulse Rate 112 H 114 H 117 H Respiratory Rate 32 H 25 H 40 H Blood Pressure 148/88 H 141/92 H 141/92 H Pulse Oximetry 97 96 02/20/18 12:39 02/20/18 13:00 02/20/18 13:02 Temperature 102.9 F H Pulse Rate 104 H 107 H 104 H Respiratory Rate 30 H 44 H 44 H Blood Pressure 130/74 137/80 130/74 Pulse Oximetry 96 80 L 94 L 02/20/18 14:00 02/20/18 15:00 02/20/18 16:00 Temperature 102.8 F H Pulse Rate 106 H 101 H 111 H Respiratory Rate 43 H 45 H 50 H Blood Pressure 135/83 137/96 H 146/90 H Pulse Oximetry 95 87 L 83 L 02/20/18 18:00 02/20/18 20:00 02/20/18 20:40 Temperature 102.4 F H Pulse Rate 116 H 124 H 119 H Respiratory Rate 38 H 36 H Blood Pressure 158/106 H Pulse Oximetry 90 L 93 L 02/20/18 21:08 02/20/18 22:00 02/21/18 00:00 Temperature 101.2 F H Pulse Rate 112 H 123 H Respiratory Rate 38 H 40 H Blood Pressure 141/91 H Pulse Oximetry 92 L 02/21/18 02:00 02/21/18 02:35 02/21/18 03:55 Temperature Pulse Rate 123 H 136 H Respiratory Rate 40 H 40 H Blood Pressure Pulse Oximetry 02/21/18 04:00 02/21/18 04:09 02/21/18 05:01 Temperature 101.4 F H Pulse Rate 130 H 133 H Respiratory Rate 45 H 40 H 59 H Blood Pressure 144/97 H 178/110 H Pulse Oximetry 86 L 95 82 L 02/21/18 05:27 02/21/18 05:30 02/21/18 05:45 Temperature Pulse Rate 133 H 133 H 144 H Respiratory Rate 46 H 48 H 53 H Blood Pressure 136/80 122/76 122/79 Pulse Oximetry 91 L 92 L 93 L 02/21/18 05:54 02/21/18 06:00 02/21/18 06:15 Temperature Pulse Rate 135 H 135 H Respiratory Rate 50 H 52 H 55 H Blood Pressure 105/64 117/61 Pulse Oximetry 94 L 94 L 96 02/21/18 06:30 02/21/18 06:45 02/21/18 07:00 Temperature Pulse Rate 118 H 119 H 112 H Respiratory Rate 53 H 51 H 50 H Blood Pressure 110/60 108/58 L 107/67 Pulse Oximetry 96 96 95 02/21/18 07:15 02/21/18 07:30 02/21/18 07:45 Temperature Pulse Rate 110 H 106 H 109 H Respiratory Rate 43 H 41 H 41 H Blood Pressure 112/68 112/69 114/71 Pulse Oximetry 95 95 96 02/21/18 07:50 02/21/18 08:00 02/21/18 08:15 Temperature 102.8 F H Pulse Rate 108 H 112 H Respiratory Rate 42 H 42 H 44 H Blood Pressure 114/73 112/73 Pulse Oximetry 96 96 97 02/21/18 08:30 02/21/18 08:45 02/21/18 09:00 Temperature Pulse Rate 127 H 117 H 118 H Respiratory Rate 51 H 53 H 53 H Blood Pressure 118/79 112/74 112/76 Pulse Oximetry 85 L 02/21/18 09:09 02/21/18 09:15 02/21/18 09:30 Temperature Pulse Rate 116 H 114 H 111 H Respiratory Rate 51 H 34 H 33 H Blood Pressure 111/76 117/76 Pulse Oximetry 100 99 02/21/18 09:34 02/21/18 09:45 02/21/18 10:00 Temperature Pulse Rate 115 H 113 H Respiratory Rate 29 H 33 H 27 H Blood Pressure 118/75 115/72 Pulse Oximetry 100 98 98 02/21/18 10:15 02/21/18 10:30 02/21/18 10:45 Temperature Pulse Rate 112 H 110 H 101 H Respiratory Rate 30 H 29 H 25 H Blood Pressure 108/66 105/63 110/66 Pulse Oximetry 98 98 100 02/21/18 11:00 02/21/18 11:33 Temperature Pulse Rate 101 H Respiratory Rate 28 H 28 H Blood Pressure 106/63 Pulse Oximetry 99 100 Intake & Output 02/20/18 02/21/18 02/21/18 18:59 06:59 18:59 Intake Total 1997 / 1997 1735 / 1735 Output Total 525 / 525 1850 / 1850 Balance 1473 / 1473 -115 / -115 Weight 86.8 kg Intake: IV 750 / 750 1000 / 1000 Precedex Inj 1,000 MCG In NS 250 / 250 500 / 500 Inj 240 ML @ 0.2 MCG/KG/HR 4.27 mls/hr IV.CONT TITRATE PRN Rx# :[id number] Diprivan 1000 mg/100 ml Inj 1, 100 / 100 000 mg In 100 ml @ 5 MCG/KG/MIN 2.58 mls/hr IV.CONT TITRATE PRN Rx#:[id number] Magnesium Sulfate Inj 4 GM In 100 / 100 NS Inj 92 ML @ 25 mls/hr IV.SIG ONCE ONE Rx#:[id number] KCl 10 mEq Premix Inj 10 meq In 200 / 200 100 / 100 100 ml @ 100 mls/hr IV.SIG Q1H GERMAINE Rx#:[id number] fentaNYL 10 mcg/mL Premix Drip 100 / 100 2,500 mcg In 250 ml @ 50 MCG/HR 5 mls/hr IV.SIG TITRATE PRN Rx #:[id number] Flagyl 500 MG Inj 100 ML @ 100 200 / 200 200 / 200 mls/hr IV.SIG Q6H GERMAINE Rx#: [id number] Tube Feeding 258 / 258 535 / 535 Tube Irrigant 240 / 240 Water Bolus Amount 750 / 750 200 / 200 Intake (Blood Product) Amt 0 / 0 Rbc As-3 Leukoreduced Unit 0 / 0 [id number] Output: Urine 525 / 525 1850 / 1850 Other: # Voids 2 1 Date of Last Bowel Movement 02/20/18 02/21/18 02/21/18 # Bowel Movements 1 4 02/21/18 10:44 Blood - Peripheral Aerobic Blood Culture - Pending 02/21/18 10:44 Blood - Peripheral Anaerobic Blood Culture - Pending 02/21/18 09:30 Sputum - Endotracheal Gram Stain - Pending 02/21/18 09:30 Sputum - Endotracheal Sputum Culture - Pending 02/21/18 10:23 Blood - Peripheral Aerobic Blood Culture - Pending 02/21/18 10:23 Blood - Peripheral Anaerobic Blood Culture - Pending 02/17/18 13:20 Bronchial Washings - Right Upper Lobe Acid Fast Bacilli Smear - Final No acid fast bacilli seen 02/17/18 13:20 Bronchial Washings - Right Upper Lobe Mycobacterial Culture - Pending 02/17/18 13:20 Bronchial - Right Upper Lobe Gram Stain - Final 02/17/18 13:20 Bronchial - Right Upper Lobe Bronchial Culture - Final Moderate growth normal respiratory pepito 02/13/18 13:16 Blood - Peripheral Aerobic Blood Culture - Final No growth in 5 days 02/13/18 13:16 Blood - Peripheral Anaerobic Blood Culture - Final No growth in 5 days 02/13/18 13:16 Blood - Peripheral Aerobic Blood Culture - Final No growth in 5 days 02/13/18 13:16 Blood - Peripheral Anaerobic Blood Culture - Final No growth in 5 days 02/17/18 13:20 Bronchial Washings - Right Upper Lobe Fungal Smear - Final No fungal elements seen 02/17/18 13:20 Bronchial Washings - Right Upper Lobe Fungal Culture - Pending Lab - Hematology Results 02/20/18 02/21/18 06:45 06:53 WBC 11.0 22.0 H RBC 1.98 L 2.41 L Hgb 6.8 L* 7.7 L Hct 18.9 L* 23.0 L MCV 95.1 95.5 MCH 34.4 H 32.0 MCHC 36.1 H 33.5 RDW 16.1 16.6 Plt Count 1023 H 869 H MPV 7.2 7.3 Prelim Diff (Auto) Slide review pending Neut % (Auto) 79.9 H 85.6 H Lymph % (Auto) 12.8 6.0 L [place] % (Auto) 6.2 7.6 Eos % (Auto) 0.2 0.0 Baso % (Auto) 0.9 0.8 Neut # (Auto) 8.8 H 18.9 H Lymph # (Auto) 1.4 1.3 [place] # (Auto) 0.7 1.7 H Eos # (Auto) 0.0 0.0 Baso # (Auto) 0.1 0.2 WBC Differential Manual diff final . Seg Neuts % (Manual) 68 Band Neuts % (Manual) 21 H Lymphocytes % (Manual) 4 L Monocytes % (Manual) 5 Myelocytes % (Man) 2 H Abs Neuts (Manual) 10.0 H Differential Comment . Auto diff final Platelet Estimate High H Platelet Morphology Normal Lab - Chemistry Results 02/19/18 02/19/18 02/19/18 12:51 17:02 20:26 Sodium Potassium Chloride Carbon Dioxide Anion Gap BUN Creatinine Estimated GFR POC Glucose 125 H 132 H 146 H Random Glucose Lactic Acid Calcium Phosphorus Magnesium Total Bilirubin AST ALT Alkaline Phosphatase Total Protein Albumin 02/20/18 02/20/18 02/20/18 01:34 04:08 06:45 Sodium 141 Potassium 3.2 L D Chloride 107 Carbon Dioxide 25.5 Anion Gap 9 BUN 7 Creatinine 0.70 Estimated GFR Greater than 89 POC Glucose 136 H 141 H Random Glucose 130 H Lactic Acid Calcium 9.2 Phosphorus 2.7 Magnesium 1.6 Total Bilirubin AST ALT Alkaline Phosphatase Total Protein Albumin 02/20/18 02/20/18 02/20/18 08:38 12:27 16:44 Sodium Potassium Chloride Carbon Dioxide Anion Gap BUN Creatinine Estimated GFR POC Glucose 150 H 120 H 120 H Random Glucose Lactic Acid Calcium Phosphorus Magnesium Total Bilirubin AST ALT Alkaline Phosphatase Total Protein Albumin 02/20/18 02/20/18 02/21/18 19:27 23:55 03:39 Sodium Potassium Chloride Carbon Dioxide Anion Gap BUN Creatinine Estimated GFR POC Glucose 130 H 147 H 177 H Random Glucose Lactic Acid Calcium Phosphorus Magnesium Total Bilirubin AST ALT Alkaline Phosphatase Total Protein Albumin 02/21/18 02/21/18 02/21/18 06:53 09:39 10:23 Sodium 145 Potassium 3.7 Chloride 107 Carbon Dioxide 25.1 Anion Gap 13 BUN 10 Creatinine 0.85 Estimated GFR Greater than 89 POC Glucose 133 H Random Glucose 115 H Lactic Acid 0.8 Calcium 8.0 L D Phosphorus 3.2 Magnesium 1.9 Total Bilirubin 0.3 AST 38 H ALT 16 Alkaline Phosphatase 107 Total Protein 5.9 L Albumin 1.8 L Imaging: ITS Impressions Chest CT 01/28/18 00:00 CONCLUSION: 1. Bilateral consolidation most pronounced in the left lower lobe and left upper lobe posteriorly. Gallbladder Ultrasound 01/30/18 00:00 CONCLUSION: 1. Unremarkable study. Abdomen/Bladder Ultrasound 01/30/18 15:17 CONCLUSION: 1. Negative renal sonogram. Head CT 02/06/18 03:50 CONCLUSION: 1. No acute intracranial abnormalities. . Abdomen X-Ray 02/08/18 00:00 CONCLUSION: NG tube placement as above. Head MRI 02/09/18 00:00 CONCLUSION: 1. Normal MRI of the brain. 2. Sinusitis and mastoiditis. Chest CTA 02/14/18 00:00 CONCLUSION: No evidence of pulmonary embolism. New right upper lobe pneumonia. Improving aeration on the left. Abdomen/Pelvis CT 02/20/18 00:00 CONCLUSION: 1. Interval development of 6 cm smooth margin low density cystic structure about the tail of the pancreas suggesting possible pseudocyst formation. 2. Percutaneous gastrostomy in place. No evidence of free intraperitoneal gas or free fluid. 3. Development of diffuse anasarca. 4. Interval development development of moderate-sized right pleural effusion and multifocal subsegmental areas of infiltrate in the right lower lung and decrease in size of left pleural effusion. Chest X-Ray 02/21/18 06:00 CONCLUSION: Marked increase in bilateral pulmonary parenchymal opacity, now diffuse. Differential diagnosis includes pulmonary edema and infection. Physical Exam: PHYSICAL EXAMINATION: GENERAL: Awake. No distress. On vent. HEENT: Pupils are equal and reactive. No icterus. NECK: No adenopathy or swelling. LUNGS: Coarse breath sounds. HEART: Regular S1 and S2. No murmurs heard. ABDOMEN: Bowel sounds present. Soft. No tenderness appreciated. No mass palpable. EXTREMITIES: No clubbing, cyanosis. edema of the hands. Swelling at RUE. SKIN: No rash. NEUROLOGIC: Non focal. PSYCHIATRIC: Unable to fully assess. Assessment and Plan - Plan IMPRESSION: 1. Possible sepsis. However cultures have been negative. Previous staph coagulase positive blood culture felt to be contamination. Subsequent cultures negative. No clear source. 2. Skin rash. Likely drug related. Probably cefepime was associated. 3. Pneumonia. Suspect aspiration. 4. Status post cardiac arrest. 5. Acute respiratory failure. Patient now post tracheostomy. 6. Acute renal failure. Improved. 7. Seizure disorder. 8. Diarrhea. Questionable antibiotic associated. 9. Oliva UTI. 10. Leukocytosis improved. 11. C. difficile colitis. I spoke to microbiology regarding the C. difficile PCR test. 12. Still having fever. ? etiology. Worsened lung infiltrates. RECOMMENDATIONS: 1. Stop Diflucan. 2. Start Zyvox. 3. Start Micafungin. 4. Start Aztreonam. 5. Continue intravenous Flagyl for C. difficile. 5. Continue p.o. vancomycin for C. difficile. 6. Monitor new sputum, blood and urine culture. 7. Monitor temp. 8. Follow chest CT.
[2018-02-21 12:57] LABS: Bilirubin,Urine Negative (Negative); Clarity,Urine Clear (Clear); Color,Urine Straw (Yellw/Straw); Glucose,Urine (UA) Negative (Negative); Leukocyte Esterase,Urine Negative (Negative); Mucus,Urine Few /lpf (Occasional); Nitrite,Urine Negative (Negative); Squamous Epithelial Cell,Urine <1 /hpf (0-5)
[2018-02-21] MEDS: Propofol 1000 mg/100 ml Inj 1,000 MG/100 ML BOTTLE IV.CONT PRN ×4 (12:59→20:53)
--- NOTE | 2018-02-21 15:44 | ECHRPT ---
Indication: NEW ONSET PULM DONTAE CONCLUSIONS Moderately dilated left ventricle. Wall thickness is normal. The left ventricular systolic function is moderately reduced with an estimated ejection fraction 40% . There is trace tricuspid valve regurgitation. The estimated pulmonary arterial pressure is 23 mmHg. BP: / HR: Rhythm: MEASUREMENTS (Male / Female) Normal Values Technical Quality: 2D ECHO LV Diastolic Diameter PLAX 5.0 cm 4.2 - 5.9 / 3.9 - 5.3 cm LV Systolic Diameter PLAX 3.9 cm IVS Diastolic Thickness 0.9 cm 0.6 - 1.0 / 0.6 - 0.9 cm LVPW Diastolic Thickness 1.0 cm 0.6 - 1.0 / 0.6 - 0.9 cm LV Relative Wall Thickness 0.4 RV Internal Dim ED PLAX 2.8 cm LVOT Diameter 1.8 cm DOPPLER AV Peak Velocity 148.0 cm/s AV Peak Gradient 8.8 mmHg Mitral E Point Velocity 82.9 cm/s Mitral A Point Velocity 39.0 cm/s Mitral E to A Ratio 2.1 TV Peak Velocity 241.0 cm/s TR Peak Velocity 179.0 cm/s TR Peak Gradient 12.8 mmHg Right Atrial Pressure 10.0 mmHg Pulmonary Artery Systolic Pressu 22.8 mmHg Right Ventricular Systolic Press 22.8 mmHg PV Peak Velocity 107.0 cm/s PV Peak Gradient 4.6 mmHg FINDINGS LEFT VENTRICLE Moderately dilated left ventricle. Wall thickness is normal. The left ventricular systolic function is moderately reduced with an estimated ejection fraction in the range of 40-45%. RIGHT VENTRICLE Normal right ventricular size and systolic function. LEFT ATRIUM The left atrial size is normal. RIGHT ATRIUM The right atrial size is normal. ATRIAL SEPTUM Normal atrial septal thickness without atrial level shunting by limited color doppler interrogation. AORTA The aortic root and proximal ascending aorta are normal in size on limited imaging. MITRAL VALVE Structurally normal mitral valve. No mitral valve stenosis or regurgitation. AORTIC VALVE Trileaflet aortic valve. No aortic valve stenosis or regurgitation. TRICUSPID VALVE There is trace tricuspid valve regurgitation. The estimated pulmonary arterial pressure is 23 mmHg. PULMONARY VALVE No pulmonary valve regurgitation or stenosis. VESSELS The inferior vena cava is normal in size. PERICARDIUM No pericardial effusion. Shantanu Albrecht MD (Electronically Signed) Final Date:21 February 2018 15:43
--- NOTE | 2018-02-21 16:36 | CT ---
EXAM DATE: 02/21/2018 3:06 PM EDT AGE/SEX: 32 years / Male INDICATIONS: Bilateral infiltrate CLINICAL DATA: This is the patient's initial encounter. Patient reports that signs and symptoms have been present for 1 day and indicates a pain score of 0/10. MEDICAL/SURGICAL HISTORY: Pancreatitis. Seizures. . Hernia repair RADIATION DOSE: 11.35 CTDI (mGy) COMPARISON: [facility] [place], CT ABDOMEN & PELVIS W CONTRAST, 02/20/2018. . TECHNIQUE: Multiple contiguous axial images were obtained through the chest without contrast. Image s were obtained in suspended respiration using multiple row detector helical technique. Using automa molly exposure control and adjustment of the mA and/or kV according to patient size, radiation dose was kept as low as reasonably achievable to obtain optimal diagnostic quality images. DICOM format imag e data is available electronically for review and comparison. FINDINGS: Comparison is February 14. Small bilateral pleural effusions are present. These have increased in si ze slightly since February 14. Overall patchy airspace consolidation in both lungs has worsened efrain cially near the apices and along the anterior aspect of the lungs. No significant adenopathy is identified. Tracheostomy tube remains in satisfactory position. No signi ficant pericardial effusion. Upper abdomen reveals NG tube tip in the left rectus muscle with a sinus tract leading towards the st omach. CONCLUSION: 1. G-tube is within the anterior abdominal wall left rectus muscle with a sinus tract extending to t he stomach. Findings called to Dr. Allen at the time of dictation. 2. Slight worsening of bilateral patchy airspace consolidation and bilateral effusions since Septemb er 24. 3. Tracheostomy in good position. Electronically signed by: Gatito Angel MD 02/21/2018 4:34 PM EDT
[2018-02-21] MEDS: Micafungin Inj 150 MG in Sodium Chlor 0.9% Inj 100 ML IV.SIG SCH (17:06)
[2018-02-21] MEDS: Aztreonam Inj 2 GM in Sodium Chloride 0.9% Inj 100 ML IV.SIG SCH ×2 (17:07→21:18)
--- NOTE | 2018-02-21 17:26 | P.PNGI ---
Subjective Interval history: Reconsulted for possible peg leak with peritonitis Physical Exam Vital signs: Vital Signs 02/20/18 18:00 02/20/18 20:00 02/20/18 20:40 Temperature 102.4 F H Pulse Rate 116 H 124 H 119 H Respiratory Rate 38 H 36 H Blood Pressure 158/106 H Pulse Oximetry 90 L 93 L 02/20/18 21:08 02/20/18 22:00 02/21/18 00:00 Temperature 101.2 F H Pulse Rate 112 H 123 H Respiratory Rate 38 H 40 H Blood Pressure 141/91 H Pulse Oximetry 92 L 02/21/18 02:00 02/21/18 02:35 02/21/18 03:55 Temperature Pulse Rate 123 H 136 H Respiratory Rate 40 H 40 H Blood Pressure Pulse Oximetry 02/21/18 04:00 02/21/18 04:09 02/21/18 05:01 Temperature 101.4 F H Pulse Rate 130 H 133 H Respiratory Rate 45 H 40 H 59 H Blood Pressure 144/97 H 178/110 H Pulse Oximetry 86 L 95 82 L 02/21/18 05:27 02/21/18 05:30 02/21/18 05:45 Temperature Pulse Rate 133 H 133 H 144 H Respiratory Rate 46 H 48 H 53 H Blood Pressure 136/80 122/76 122/79 Pulse Oximetry 91 L 92 L 93 L 02/21/18 05:54 02/21/18 06:00 02/21/18 06:15 Temperature Pulse Rate 135 H 135 H Respiratory Rate 50 H 52 H 55 H Blood Pressure 105/64 117/61 Pulse Oximetry 94 L 94 L 96 02/21/18 06:30 02/21/18 06:45 02/21/18 07:00 Temperature Pulse Rate 118 H 119 H 112 H Respiratory Rate 53 H 51 H 50 H Blood Pressure 110/60 108/58 L 107/67 Pulse Oximetry 96 96 95 02/21/18 07:15 02/21/18 07:30 02/21/18 07:45 Temperature Pulse Rate 110 H 106 H 109 H Respiratory Rate 43 H 41 H 41 H Blood Pressure 112/68 112/69 114/71 Pulse Oximetry 95 95 96 02/21/18 07:50 02/21/18 08:00 02/21/18 08:15 Temperature 102.8 F H Pulse Rate 108 H 112 H Respiratory Rate 42 H 42 H 44 H Blood Pressure 114/73 112/73 Pulse Oximetry 96 96 97 02/21/18 08:30 02/21/18 08:45 02/21/18 09:00 Temperature Pulse Rate 127 H 117 H 118 H Respiratory Rate 51 H 53 H 53 H Blood Pressure 118/79 112/74 112/76 Pulse Oximetry 85 L 02/21/18 09:09 02/21/18 09:15 02/21/18 09:30 Temperature Pulse Rate 116 H 114 H 111 H Respiratory Rate 51 H 34 H 33 H Blood Pressure 111/76 117/76 Pulse Oximetry 100 99 02/21/18 09:34 02/21/18 09:45 02/21/18 10:00 Temperature Pulse Rate 115 H 113 H Respiratory Rate 29 H 33 H 27 H Blood Pressure 118/75 115/72 Pulse Oximetry 100 98 98 02/21/18 10:15 02/21/18 10:30 02/21/18 10:45 Temperature Pulse Rate 112 H 110 H 101 H Respiratory Rate 30 H 29 H 25 H Blood Pressure 108/66 105/63 110/66 Pulse Oximetry 98 98 100 02/21/18 11:00 02/21/18 11:15 02/21/18 11:30 Temperature Pulse Rate 101 H 100 H 95 H Respiratory Rate 28 H 30 H 28 H Blood Pressure 106/63 111/65 106/68 Pulse Oximetry 99 100 100 02/21/18 11:33 02/21/18 11:45 02/21/18 12:00 Temperature 100 F H Pulse Rate 94 H 91 H Respiratory Rate 28 H 30 H 29 H Blood Pressure 103/68 105/68 Pulse Oximetry 100 100 100 02/21/18 12:15 02/21/18 12:30 02/21/18 12:45 Temperature Pulse Rate 101 H 99 H 103 H Respiratory Rate 37 H 37 H 42 H Blood Pressure 108/69 100/64 111/73 Pulse Oximetry 100 100 99 02/21/18 13:00 02/21/18 13:15 02/21/18 13:30 Temperature Pulse Rate 94 H 94 H 95 H Respiratory Rate 32 H 35 H 37 H Blood Pressure 106/63 108/65 107/67 Pulse Oximetry 100 65 L 02/21/18 14:00 02/21/18 16:13 02/21/18 16:15 Temperature Pulse Rate 92 H 95 H Respiratory Rate 27 H 28 H Blood Pressure Pulse Oximetry 97 Intake & Output 02/20/18 02/21/18 02/21/18 18:59 06:59 18:59 Intake Total 1997 1735 / 1735 550 / 550 Output Total 525 / 525 1850 / 1850 Balance 1473 / 1473 -115 / -115 550 / 550 Weight 86.8 kg Intake: IV 750 / 750 1000 / 1000 550 / 550 Precedex Inj 1,000 MCG In NS 250 / 250 500 / 500 250 / 250 Inj 240 ML @ 0.2 MCG/KG/HR 4.27 mls/hr IV.CONT TITRATE PRN Rx# :[id number] Diprivan 1000 mg/100 ml Inj 1, 100 / 100 200 / 200 000 mg In 100 ml @ 5 MCG/KG/MIN 2.604 mls/hr IV.CONT TITRATE PRN Rx#:[id number] Magnesium Sulfate Inj 4 GM In 100 / 100 NS Inj 92 ML @ 25 mls/hr IV.SIG ONCE ONE Rx#:[id number] KCl 10 mEq Premix Inj 10 meq In 200 / 200 100 / 100 100 ml @ 100 mls/hr IV.SIG Q1H GERMAINE Rx#:[id number] fentaNYL 10 mcg/mL Premix Drip 100 / 100 2,500 mcg In 250 ml @ 50 MCG/HR 5 mls/hr IV.SIG TITRATE PRN Rx #:[id number] Flagyl 500 MG Inj 100 ML @ 100 200 / 200 200 / 200 100 / 100 mls/hr IV.SIG Q6H GERMAINE Rx#: [id number] Tube Feeding 258 / 258 535 / 535 Tube Irrigant 240 / 240 Water Bolus Amount 750 / 750 200 / 200 Intake (Blood Product) Amt 0 / 0 Rbc As-3 Leukoreduced Unit 0 / 0 [id number] Output: Urine 525 / 525 1850 / 1850 Other: # Voids 2 1 Date of Last Bowel Movement 02/20/18 02/21/18 02/21/18 # Bowel Movements 1 4 - Routine Respiratory Exam Present: rales - Routine Cardiovascular Exam Present: RRR - Routine Abdominal Exam Present: soft, normoactive bowel sounds - Urinary Catheter Management Coude Cath placed during this visit: yes, but has since been removed by the nurse Reason for continuing: Decision to DC catheter Insertion date: 01/28/18 Insertion time: 13:15 Removal date: 02/03/18 Removal time: 15:15 Straight Cath placed during this visit: yes, but has since been removed by the nurse Reason for continuing: Acute urinary retention Insertion date: 02/12/18 Insertion time: 08:00 Removal date: 02/04/18 Indwelling Urethral Catheter Cath placed during this visit: yes, but has since been removed by the nurse Reason for continuing: Decision to DC catheter Insertion date: 02/12/18 Insertion time: 07:00 Removal date: 02/17/18 Removal time: 15:10 Results - Labs CBC & Chem 7: 02/21/18 06:53 02/21/18 06:53 Laboratory Results - last 24 hr 02/20/18 02/20/18 02/20/18 10:15 19:27 23:55 WBC RBC Hgb Hct MCV MCH MCHC RDW Plt Count MPV Neut % (Auto) Lymph % (Auto) Sanders % (Auto) Eos % (Auto) Baso % (Auto) Neut # (Auto) Lymph # (Auto) Sanders # (Auto) Eos # (Auto) Baso # (Auto) WBC Differential Differential Comment Puncture Site Patient Temperature O2 Saturation ABG pH ABG pCO2 ABG pO2 ABG HCO3 ABG O2 Content ABG Base Excess ABG Methemoglobin Pérez Test Hemoglobin Carboxyhemoglobin O2 Delivery Device Vent Setting Inspired O2 Critical Value Sodium Potassium Chloride Carbon Dioxide Anion Gap BUN Creatinine Estimated GFR POC Glucose 130 H 147 H Random Glucose Lactic Acid Calcium Phosphorus Magnesium Total Bilirubin AST ALT Alkaline Phosphatase B-Natriuretic Peptide Total Protein Albumin Urine Color Urine Clarity Urine pH Ur Specific [place] Urine Protein Urine Glucose (UA) Urine Ketones Urine Occult Blood Urine Nitrate Urine Bilirubin Urine Urobilinogen Ur Leukocyte Esterase Urine RBC Urine WBC Ur Squamous Epith Cells Urine Mucus Micro UA Comment Ur Microscopic Review Urine Culture Comments MTS Gel Crossmatch See Detail 02/21/18 02/21/18 02/21/18 03:39 06:53 06:53 WBC 22.0 H RBC 2.41 L Hgb 7.7 L Hct 23.0 L MCV 95.5 MCH 32.0 MCHC 33.5 RDW 16.6 Plt Count 869 H MPV 7.3 Neut % (Auto) 85.6 H Lymph % (Auto) 6.0 L Sanders % (Auto) 7.6 Eos % (Auto) 0.0 Baso % (Auto) 0.8 Neut # (Auto) 18.9 H Lymph # (Auto) 1.3 Sanders # (Auto) 1.7 H Eos # (Auto) 0.0 Baso # (Auto) 0.2 WBC Differential . Differential Comment Auto diff final Puncture Site Patient Temperature O2 Saturation ABG pH ABG pCO2 ABG pO2 ABG HCO3 ABG O2 Content ABG Base Excess ABG Methemoglobin Pérez Test Hemoglobin Carboxyhemoglobin O2 Delivery Device Vent Setting Inspired O2 Critical Value Sodium 145 Potassium 3.7 Chloride 107 Carbon Dioxide 25.1 Anion Gap 13 BUN 10 Creatinine 0.85 Estimated GFR Greater than 89 POC Glucose 177 H Random Glucose 115 H Lactic Acid Calcium 8.0 L D Phosphorus 3.2 Magnesium 1.9 Total Bilirubin 0.3 AST 38 H ALT 16 Alkaline Phosphatase 107 B-Natriuretic Peptide Total Protein 5.9 L Albumin 1.8 L Urine Color Urine Clarity Urine pH Ur Specific [place] Urine Protein Urine Glucose (UA) Urine Ketones Urine Occult Blood Urine Nitrate Urine Bilirubin Urine Urobilinogen Ur Leukocyte Esterase Urine RBC Urine WBC Ur Squamous Epith Cells Urine Mucus Micro UA Comment Ur Microscopic Review Urine Culture Comments MTS Gel Crossmatch 02/21/18 02/21/18 02/21/18 06:53 09:39 10:23 WBC RBC Hgb Hct MCV MCH MCHC RDW Plt Count MPV Neut % (Auto) Lymph % (Auto) Sanders % (Auto) Eos % (Auto) Baso % (Auto) Neut # (Auto) Lymph # (Auto) Sanders # (Auto) Eos # (Auto) Baso # (Auto) WBC Differential Differential Comment Puncture Site Patient Temperature O2 Saturation ABG pH ABG pCO2 ABG pO2 ABG HCO3 ABG O2 Content ABG Base Excess ABG Methemoglobin Pérez Test Hemoglobin Carboxyhemoglobin O2 Delivery Device Vent Setting Inspired O2 Critical Value Sodium Potassium Chloride Carbon Dioxide Anion Gap BUN Creatinine Estimated GFR POC Glucose 133 H Random Glucose Lactic Acid 0.8 Calcium Phosphorus Magnesium Total Bilirubin AST ALT Alkaline Phosphatase B-Natriuretic Peptide 1645 H Total Protein Albumin Urine Color Urine Clarity Urine pH Ur Specific [place] Urine Protein Urine Glucose (UA) Urine Ketones Urine Occult Blood Urine Nitrate Urine Bilirubin Urine Urobilinogen Ur Leukocyte Esterase Urine RBC Urine WBC Ur Squamous Epith Cells Urine Mucus Micro UA Comment Ur Microscopic Review Urine Culture Comments MTS Gel Crossmatch 02/21/18 02/21/1818 10:36 11:45 11:47 WBC RBC Hgb Hct MCV MCH MCHC RDW Plt Count MPV Neut % (Auto) Lymph % (Auto) Sanders % (Auto) Eos % (Auto) Baso % (Auto) Neut # (Auto) Lymph # (Auto) Sanders # (Auto) Eos # (Auto) Baso # (Auto) WBC Differential Differential Comment Puncture Site Right radial Patient Temperature 98.6 O2 Saturation 95 ABG pH 7.60 H* ABG pCO2 28 L ABG pO2 83 ABG HCO3 28 H ABG O2 Content 10.1 L ABG Base Excess 5.5 H ABG Methemoglobin 1.4 Pérez Test Present Hemoglobin 7.5 L* Carboxyhemoglobin 1.3 O2 Delivery Device Ventilator Vent Setting Prvc/ac Inspired O2 50 Critical Value Yes Sodium Potassium Chloride Carbon Dioxide Anion Gap BUN Creatinine Estimated GFR POC Glucose 132 H Random Glucose Lactic Acid Calcium Phosphorus Magnesium Total Bilirubin AST ALT Alkaline Phosphatase B-Natriuretic Peptide Total Protein Albumin Urine Color Straw Urine Clarity Clear Urine pH 6.0 Ur Specific [place] 1.010 Urine Protein Negative Urine Glucose (UA) Negative Urine Ketones Negative Urine Occult Blood Small H Urine Nitrate Negative Urine Bilirubin Negative Urine Urobilinogen Less than 2 Ur Leukocyte Esterase Negative Urine RBC 3 Urine WBC 3 Ur Squamous Epith Cells <1 Urine Mucus Few H Micro UA Comment Culture not ind Ur Microscopic Review Not Reportable Urine Culture Comments Culture not ind MTS Gel Crossmatch Microbiology 02/21/18 09:30 Sputum - Endotracheal Gram Stain - Final 02/17/18 13:20 Bronchial Washings - Right Upper Lobe Acid Fast Bacilli Smear - Final No acid fast bacilli seen - Imaging Impressions Abdomen/Pelvis CT 02/20/18 00:00 CONCLUSION: 1. Interval development of 6 cm smooth margin low density cystic structure about the tail of the pancreas suggesting possible pseudocyst formation. 2. Percutaneous gastrostomy in place. No evidence of free intraperitoneal gas or free fluid. 3. Development of diffuse anasarca. 4. Interval development development of moderate-sized right pleural effusion and multifocal subsegmental areas of infiltrate in the right lower lung and decrease in size of left pleural effusion. Chest CT 02/21/18 00:00 CONCLUSION: 1. G-tube is within the anterior abdominal wall left rectus muscle with a sinus tract extending to the stomach. Findings called to Dr. Allen at the time of dictation. 2. Slight worsening of bilateral patchy airspace consolidation and bilateral effusions since February 20. 3. Tracheostomy in good position. Chest X-Ray 02/21/18 06:00 CONCLUSION: Marked increase in bilateral pulmonary parenchymal opacity, now diffuse. Differential diagnosis includes pulmonary edema and infection. Assessment and Plan - Plan Reconsulted by Dr Santiago for possible peg displacement and peritonitis. Pts CT abd/pelvis from yesterday and CT chest from today reviewed. Abdomen is soft and non tender. Peg tube appears to be in place. STAT gastrografin through G tube ordered. Discussed with Dr Watt and Pamela. Possible OR tonite with debriedment. Antibiotics. Discussed with Mom at the bedside. Thank you
[2018-02-21] MEDS ORDERED: Diatrizoate Meglum/Diatrizoate Sod Liq 120 ML Bottle (for RAD diag) G-TUBE ONE (17:30)
--- NOTE | 2018-02-21 18:02 | XR ---
EXAM DATE: 02/21/2018 5:10 PM EDT AGE/SEX: 32 years / Male INDICATIONS: PEG tube placement, evaluate for leak. CLINICAL DATA: This is the patient's initial encounter. Patient reports that signs and symptoms have been present for 1 day and indicates a pain score of Nonresponsive. MEDICAL/SURGICAL HISTORY: Non-responsive. Non-responsive. COMPARISON: [facility] – [place], ABDOMEN 1V KUB, 02/08/2018. . FINDINGS: Gastrografin was injected bedside. There is free flow of contrast through the G-tube into the stomach and into small bowel. No peritoneal leakage is identified on this exam. Consolidation noted at the l melvina bases. CONCLUSION: No peritoneal leakage identified with Gastrografin injection. Electronically signed by: Gatito Angel MD 02/21/2018 6:00 PM EDT
--- NOTE | 2018-02-21 18:04 | P.CON ---
History of Present Illness Consult date: 02/21/18 Reason for Consult: Dislodged PEG tube Primary Care Provider: UNKNOWN Chief Complaint: CODE BLUE History of Present Illness: Patient is an unfortunate 32-year-old male who was admitted on 2017 with sepsis. Patient was intubated and had tracheostomy placed approximately 1 week ago. (02/08) Patient had PEG tube placed on 02/09/2018. He was placed on trickle feeds and was apparently tolerating these quite well. Patient began to have problems with increased ventilator requirements and appeared to becoming septic again. Patient underwent CT scan which demonstrates G-tube dislodgment. There was a tract noted however, and patient just underwent fluoroscopy which demonstrates no active extravasation or leakage. I have discussed this with Dr. Sarabia and we will likely attempt to have a new tube placed tomorrow morning and restart tube feedings. If this is unsuccessful where there is a leak, patient may require operative intervention. He continues to have fever and a right upper lobe infiltrate as well as a pancreatic pseudocyst in the tail of the pancreas. Review of Systems All other systems reviewed negative except as stated in HPI PMFSH - History History Provided By: Patient - Medical History Medical History: Medical History (Last Reviewed 02/21/18 @ 17:59 by Robby Watt MD) Depression GERD (gastroesophageal reflux disease) Alcohol abuse Hernia Pancreatitis Seizures - Surgical History Surgical History: Surgical History (Last Reviewed 02/21/18 @ 17:59 by Robby Watt MD) History of left inguinal hernia repair - Family History Family History: Family History (Last Updated 01/28/18 @ 11:46 by Anand Bird MD) Other Family history non-contributory - Social History I have reviewed the patient's Social History: Yes - Tobacco History Second Hand Smoke Exposure: No Tobacco Use In Past 30 Days: No Smoking Status: Former smoker Tobacco Type: Cigarettes - Alcohol History How Often Do You Have a Drink Containing Alcohol: 2 to 4 times a month - Substance Use History Substance History: Active Abuse - Substance Use Type Alcohol Status: Early Remission Route Used: By Mouth Frequency: Was a heavy daily user, quit 4 weeks ago Reason for Use: Calm Down - Travel History History of Recent Travel: No Recent Travel in the [place] Within the Last 8 Weeks: No Recent Travel Out of the Country Within the Last 8 Weeks: No - Immunization History Tetanus Immunization: <5 Years Hx Influenza Vaccine This Season: Yes Medications and Allergies Active Medications: Active Medications Acetaminophen (Tylenol Liq) 650 mg NG/OG Q6H PRN PRN Reason: FEVER Last Admin: 02/21/18 03:39 Dose: 650 mg Al Hydroxide/Mg Hydroxide (Milk Of Magnesia Liq) 30 ml PO Q12H PRN PRN Reason: Mild Constipation Albuterol (Albuterol Neb (Prn)) 2.5 mg NEB Q2HR NEB PRN PRN Reason: SHORTNESS OF BREATH/WHEEZING Last Admin: 02/02/18 20:03 Dose: 2.5 mg Albuterol (Duoneb Neb ([facility])) 1 ampul NEB Q6HR NEB [facility] Last Admin: 02/21/18 16:14 Dose: 1 ampul Artificial Tears (Refresh Tears 0.5% Opth Drops) 1 drop EACH EYE BID [facility] Last Admin: 02/21/18 09:44 Dose: 1 drop Aspirin (Aspirin) 325 mg PO DAILY [facility] Last Admin: 02/21/18 09:43 Dose: 325 mg Bisacodyl (Dulcolax Supp) 10 mg RECTAL DAILY PRN PRN Reason: SEVERE CONSITIPATION Chlorhexidine Gluconate (Peridex 0.12% Oral Kit) 15 ml OROPHARYNG BID@0800, 2000 [facility] Last Admin: 02/21/18 09:45 Dose: 15 ml Clonidine HCl (Catapres) 0.1 mg PO Q12HR [facility] Last Admin: 02/21/18 09:43 Dose: 0.1 mg Dextrose (D50w Vial) 50 ml IV.PUSH UNSCH PRN PRN Reason: PER HYPOGLYCEMIA PROTOCOL Last Admin: 01/30/18 04:15 Dose: 50 ml Famotidine (Pepcid) 20 mg G-TUBE BID [facility] Last Admin: 02/21/18 09:42 Dose: 20 mg Glucagon (Glucagon Inj) 1 mg OTHER PRN PRN PRN Reason: for Hypoglycemia Protocol Haloperidol (Haldol) 2 mg PO BID [facility] Last Admin: 02/21/18 09:48 Dose: 2 mg Heparin Sodium (Porcine) (Heparin Inj) 5,000 units SQ Q12HR [facility] Last Admin: 02/21/18 09:44 Dose: 5,000 units Magnesium Sulfate Inj 4 gm/ (Sodium Chloride) 100 mls @ 50 mls/hr IV.SIG UNSCH PRN PRN Reason: For Magnesium 0.9 - 1.1 mg/dL Magnesium Sulfate Inj 2 gm/ (Sodium Chloride) 100 mls @ 50 mls/hr IV.SIG UNSCH PRN PRN Reason: For Magnesium 1.2 - 1.6 mg/dL Last Infusion: 02/15/18 14:21 Dose: Infused Potassium Chloride (Kcl 40 Meq Premix Inj) 40 meq in 100 mls @ 25 mls/hr IV.SIG Q2H PRN PRN Reason: For Potassium 2.8 - 3.2 mEq/L Potassium Chloride (Kcl 20 Meq Premix Inj) 20 meq in 100 mls @ 50 mls/hr IV.SIG Q2H PRN PRN Reason: For Potassium 3.3 - 3.5 mEq/L Last Infusion: 02/12/18 14:46 Dose: Infused Potassium Chloride (Kcl 40 Meq Premix Inj) 40 meq in 100 mls @ 25 mls/hr IV.SIG UNSCH PRN PRN Reason: For Potassium 3.3 - 3.5 mEq/L Potassium Chloride (Kcl 20 Meq Premix Inj) 20 meq in 100 mls @ 50 mls/hr IV.SIG Q2H PRN PRN Reason: For Potassium 2.8 - 3.2 mEq/L Last Infusion: 02/12/18 10:45 Dose: Infused Potassium Phosphate 30 mmol/ (Sodium Chloride) 260 mls @ 42 mls/hr IV.SIG UNSCH PRN PRN Reason: SEE LABEL COMMENTS Sodium Phosphate 30 mmol/ (Sodium Chloride) 260 mls @ 42 mls/hr IV.SIG UNSCH PRN PRN Reason: For Phosphorus < 2.5 mg/dL Metronidazole/Sodium Chloride (Flagyl 500 Mg Inj) 100 mls @ 100 mls/hr IV.SIG Q6H [facility] Last Admin: 02/21/18 14:46 Dose: 100 mls/hr Phenylephrine HCl 160 mg/ (Sodium Chloride) 500 mls @ 7.5 mls/hr IV.CONT TITRATE PRN; Protocol PRN Reason: See protol Dexmedetomidine HCl 1,000 mcg/ (Sodium Chloride) 250 mls @ 4.27 mls/hr IV.CONT TITRATE PRN; Protocol PRN Reason: Per Protocol Last Admin: 02/21/18 17:17 Dose: 1.5 mcg/kg/hr, 32.06 mls/hr Propofol (Diprivan 1000 Mg/100 Ml Inj) 1,000 mg in 100 mls @ 2.604 mls/hr IV.CONT TITRATE PRN; Protocol PRN Reason: Per Protocol Last Admin: 02/21/18 17:16 Dose: 50 mcg/kg/min, 26.04 mls/hr Linezolid (Zyvox 600 Mg Premix) 300 mls @ 300 mls/hr IV.SIG Q12H [facility] Last Admin: 02/21/18 14:46 Dose: 300 mls/hr Micafungin Sodium 150 mg/ (Sodium Chloride) 100 mls @ 100 mls/hr IV.SIG Q24H [facility] Last Admin: 02/21/18 17:06 Dose: 100 mls/hr Aztreonam 2 gm/ Sodium (Chloride) 100 mls @ 200 mls/hr IV.SIG Q8H [facility] Last Admin: 02/21/18 17:07 Dose: 200 mls/hr Insulin Aspart (Novolog Insulin Correctional Sugar Inj) 0 unit SQ Q4HR [facility]; Protocol Last Admin: 02/21/18 17:06 Dose: 5 unit Levetiracetam (Keppra) 500 mg NG/OG BID [facility] Last Admin: 02/21/18 09:43 Dose: 500 mg Magnesium Oxide (Mag-Ox) 800 mg PO UNSCH PRN PRN Reason: For Magnesium 1.2 - 1.6 mg/dL Last Admin: 02/12/18 09:55 Dose: 800 mg Magnesium Oxide (Mag-Ox) 400 mg PO BID [facility] Last Admin: 02/21/18 09:44 Dose: 400 mg Miscellaneous Information ([facility] [place] Iv Meds In Ns) 1 each MISCELLANE UNSCH [facility] Miscellaneous Information ([facility] Ordered Lab Info) 0 each OTHER ONCE [facility] Multivitamins (Theragran) 1 tab NG/OG DAILY [facility] Last Admin: 02/21/18 09:42 Dose: 1 tab Ondansetron HCl (Zofran Inj) 4 mg IV.PUSH Q6H PRN PRN Reason: NAUSEA OR VOMITING Last Admin: 02/19/18 08:46 Dose: 4 mg Oxycodone HCl (Roxicodone Intensol Liq) 15 mg PO Q6H [facility] Last Admin: 02/21/18 14:46 Dose: 15 mg Potassium Bicarb/Potassium Chloride (K-Lyte Cl Eff) 50 meq PO UNSCH PRN PRN Reason: For Potassium 3.3 - 3.5 mEq/L Potassium Bicarb/Potassium Chloride (K-Lyte Cl Eff) 25 meq NG/OG BID [facility] Last Admin: 02/21/18 11:48 Dose: 25 meq Potassium Phosphate (K-Phos Original) 2,000 mg PO Q4H PRN PRN Reason: Phosphorus Less Than 2.5 mg/dL Potassium Phosphate (K-Phos Original) 2,000 mg PO UNSCH PRN PRN Reason: SEE LABEL COMMENTS Quetiapine Fumarate (Seroquel) 300 mg NG/OG BID [facility] Last Admin: 02/21/18 09:43 Dose: 300 mg Senna/Docusate Sodium (Hiral-Colace) 1 tab PO BID [facility] Last Admin: 02/21/18 09:45 Dose: Not Given Sennosides (Senokot) 17.2 mg PO Q12H PRN PRN Reason: Moderate Constipation Last Admin: 01/31/18 08:30 Dose: 17.2 mg Sodium Chloride (Ns Flush) 2 ml IV.FLUSH BID [facility] Last Admin: 02/21/18 09:45 Dose: 2 ml Sodium Chloride (Ns Flush) 2 ml IV.FLUSH PRN PRN PRN Reason: FLUSH AFTER USING IV ACCESS Last Admin: 02/05/18 09:19 Dose: 2 ml Sterile Water (Free Water) 100 ml G-TUBE Q6HR [facility] Last Admin: 02/21/18 17:05 Dose: Not Given Terbutaline Sulfate (Brethine Inj) 1 mg SQ UNSCH PRN PRN Reason: For Extravasation Thiamine HCl (Vitamin B1) 100 mg PO BID [facility] Last Admin: 02/21/18 09:43 Dose: 100 mg Valproate Sodium (Depakene Liq) 250 mg PO BID [facility] Last Admin: 02/21/18 09:43 Dose: 250 mg Vancomycin HCl (Vancomycin Po) 250 mg PO QID [facility] Last Admin: 02/21/18 17:05 Dose: Not Given Allergies Allergy/AdvReac Type Severity Reaction Status Date / Time Sulfa (Sulfonamide Allergy Severe hives Verified 10/11/17 07:56 Antibiotics) cefepime AdvReac Intermediate Rash, Verified 02/15/18 10:55 Generalized Home Medications Medication Instructions Recorded Confirmed Type levetiracetam [Keppra] 500 mg PO Q12H 01/28/18 01/28/18 History pantoprazole [Protonix] 40 mg PO BID 01/28/18 01/28/18 History quetiapine [Seroquel] 50 mg PO TID 01/28/18 01/28/18 History Physical Exam Vital signs: Vital Signs 02/20/18 18:00 02/20/18 20:00 02/20/18 20:40 Temperature 102.4 F H Pulse Rate 116 H 124 H 119 H Respiratory Rate 38 H 36 H Blood Pressure 158/106 H Pulse Oximetry 90 L 93 L 02/20/18 21:08 02/20/18 22:00 02/21/18 00:00 Temperature 101.2 F H Pulse Rate 112 H 123 H Respiratory Rate 38 H 40 H Blood Pressure 141/91 H Pulse Oximetry 92 L 02/21/18 02:00 02/21/18 02:35 02/21/18 03:55 Temperature Pulse Rate 123 H 136 H Respiratory Rate 40 H 40 H Blood Pressure Pulse Oximetry 02/21/18 04:00 02/21/18 04:09 02/21/18 05:01 Temperature 101.4 F H Pulse Rate 130 H 133 H Respiratory Rate 45 H 40 H 59 H Blood Pressure 144/97 H 178/110 H Pulse Oximetry 86 L 95 82 L 02/21/18 05:27 02/21/18 05:30 02/21/18 05:45 Temperature Pulse Rate 133 H 133 H 144 H Respiratory Rate 46 H 48 H 53 H Blood Pressure 136/80 122/76 122/79 Pulse Oximetry 91 L 92 L 93 L 02/21/18 05:54 02/21/18 06:00 02/21/18 06:15 Temperature Pulse Rate 135 H 135 H Respiratory Rate 50 H 52 H 55 H Blood Pressure 105/64 117/61 Pulse Oximetry 94 L 94 L 96 02/21/18 06:30 02/21/18 06:45 02/21/18 07:00 Temperature Pulse Rate 118 H 119 H 112 H Respiratory Rate 53 H 51 H 50 H Blood Pressure 110/60 108/58 L 107/67 Pulse Oximetry 96 96 95 02/21/18 07:15 02/21/18 07:30 02/21/18 07:45 Temperature Pulse Rate 110 H 106 H 109 H Respiratory Rate 43 H 41 H 41 H Blood Pressure 112/68 112/69 114/71 Pulse Oximetry 95 95 96 02/21/18 07:50 02/21/18 08:00 02/21/18 08:15 Temperature 102.8 F H Pulse Rate 108 H 112 H Respiratory Rate 42 H 42 H 44 H Blood Pressure 114/73 112/73 Pulse Oximetry 96 96 97 02/21/18 08:30 02/21/18 08:45 02/21/18 09:00 Temperature Pulse Rate 127 H 117 H 118 H Respiratory Rate 51 H 53 H 53 H Blood Pressure 118/79 112/74 112/76 Pulse Oximetry 85 L 02/21/18 09:09 02/21/18 09:15 02/21/18 09:30 Temperature Pulse Rate 116 H 114 H 111 H Respiratory Rate 51 H 34 H 33 H Blood Pressure 111/76 117/76 Pulse Oximetry 100 99 02/21/18 09:34 02/21/18 09:45 02/21/18 10:00 Temperature Pulse Rate 115 H 113 H Respiratory Rate 29 H 33 H 27 H Blood Pressure 118/75 115/72 Pulse Oximetry 100 98 98 02/21/18 10:15 02/21/18 10:30 02/21/18 10:45 Temperature Pulse Rate 112 H 110 H 101 H Respiratory Rate 30 H 29 H 25 H Blood Pressure 108/66 105/63 110/66 Pulse Oximetry 98 98 100 02/21/18 11:00 02/21/18 11:15 02/21/18 11:30 Temperature Pulse Rate 101 H 100 H 95 H Respiratory Rate 28 H 30 H 28 H Blood Pressure 106/63 111/65 106/68 Pulse Oximetry 99 100 100 02/21/18 11:33 02/21/18 11:45 02/21/18 12:00 Temperature 100 F H Pulse Rate 94 H 91 H Respiratory Rate 28 H 30 H 29 H Blood Pressure 103/68 105/68 Pulse Oximetry 100 100 100 02/21/18 12:15 02/21/18 12:30 02/21/18 12:45 Temperature Pulse Rate 101 H 99 H 103 H Respiratory Rate 37 H 37 H 42 H Blood Pressure 108/69 100/64 111/73 Pulse Oximetry 100 100 99 02/21/18 13:00 02/21/18 13:15 02/21/18 13:30 Temperature Pulse Rate 94 H 94 H 95 H Respiratory Rate 32 H 35 H 37 H Blood Pressure 106/63 108/65 107/67 Pulse Oximetry 100 65 L 02/21/18 13:45 02/21/18 14:00 02/21/18 14:15 Temperature Pulse Rate 94 H 92 H 86 Respiratory Rate 25 H 32 H 26 H Blood Pressure 108/71 107/72 109/72 Pulse Oximetry 96 97 95 02/21/18 14:30 02/21/18 14:45 02/21/18 15:00 Temperature Pulse Rate 84 83 80 Respiratory Rate 27 H 26 H 28 H Blood Pressure 112/73 109/74 110/71 Pulse Oximetry 96 95 96 02/21/18 15:15 02/21/18 15:30 02/21/18 15:47 Temperature Pulse Rate 81 81 91 H Respiratory Rate 27 H 30 H 34 H Blood Pressure 109/71 105/70 96/67 L Pulse Oximetry 94 L 95 98 02/21/18 16:00 02/21/18 16:11 02/21/18 16:13 Temperature 98.8 F Pulse Rate 113 H 100 H Respiratory Rate 39 H 38 H 27 H Blood Pressure 101/59 L 93/72 L Pulse Oximetry 99 97 02/21/18 16:15 02/21/18 17:00 Temperature Pulse Rate 95 H 75 Respiratory Rate 28 H 24 Blood Pressure 102/72 Pulse Oximetry 92 L Intake & Output 02/20/18 02/21/18 02/21/18 18:59 06:59 18:59 Intake Total 1997 1735 / 1735 550 / 550 Output Total 525 / 525 1850 / 1850 Balance 1473 / 1473 -115 / -115 550 / 550 Weight 86.8 kg Intake: IV 750 / 750 1000 / 1000 550 / 550 Precedex Inj 1,000 MCG In NS 250 / 250 500 / 500 250 / 250 Inj 240 ML @ 0.2 MCG/KG/HR 4.27 mls/hr IV.CONT TITRATE PRN Rx# :[id number] Diprivan 1000 mg/100 ml Inj 1, 100 / 100 200 / 200 000 mg In 100 ml @ 5 MCG/KG/MIN 2.604 mls/hr IV.CONT TITRATE PRN Rx#:[id number] Magnesium Sulfate Inj 4 GM In 100 / 100 NS Inj 92 ML @ 25 mls/hr IV.SIG ONCE ONE Rx#:[id number] KCl 10 mEq Premix Inj 10 meq In 200 / 200 100 / 100 100 ml @ 100 mls/hr IV.SIG Q1H [facility]ER[facility] Rx#:[id number] fentaNYL 10 mcg/mL Premix Drip 100 / 100 2,500 mcg In 250 ml @ 50 MCG/HR 5 mls/hr IV.SIG TITRATE PRN Rx #:[id number] Flagyl 500 MG Inj 100 ML @ 100 200 / 200 200 / 200 100 / 100 mls/hr IV.SIG Q6H [facility] Rx#: [id number] Tube Feeding 258 / 258 535 / 535 Tube Irrigant 240 / 240 Water Bolus Amount 750 / 750 200 / 200 Intake (Blood Product) Amt 0 / 0 Rbc As-3 Leukoreduced Unit 0 / 0 [id number] Output: Urine 525 / 525 1850 / 1850 Other: # Voids 2 1 Date of Last Bowel Movement 02/20/18 02/21/18 02/21/18 # Bowel Movements 1 4 - Constitutional no acute distress - Routine Abdominal Exam Present: soft Comments: No tenderness or grimacing with deep palpation. PEG tube extruded from skin in the left upper abdomen near the costal margin - Urinary Catheter Management Coude Cath placed during this visit: yes, but has since been removed by the nurse Reason for continuing: Decision to DC catheter Insertion date: 01/28/18 Insertion time: 13:15 Removal date: 02/03/18 Removal time: 15:15 Straight Cath placed during this visit: yes, but has since been removed by the nurse Reason for continuing: Acute urinary retention Insertion date: 02/12/18 Insertion time: 08:00 Removal date: 02/04/18 Indwelling Urethral Catheter Cath placed during this visit: yes, but has since been removed by the nurse Reason for continuing: Decision to DC catheter Insertion date: 02/12/18 Insertion time: 07:00 Removal date: 02/17/18 Removal time: 15:10 Assessment and Plan - Assessment (1) Sepsis Code(s): A41.9 - Sepsis, unspecified organism Status: Acute (2) Complication of feeding tube Code(s): K94.23 - Gastrostomy malfunction Status: Acute Plan: Feeding tube dislodged but tracked well formed. Discussed with Dr. dayna tubbs. We will hold on any operative intervention at this time. GI service will attempt to replace the feeding tube. If they are unable to do so and radiology is unable to place a new tube, he will require operative intervention. I discussed this with the patient's mother and she is agreeable to the above plan. (3) Acute kidney failure Code(s): N17.9 - Acute kidney failure, unspecified Status: Acute - Attending Attestation I attest that I had a [id number] encounter with the patient on the same day, and personally performed and documented my assessment and findings in the medical record. The following services were provided during this hospital visit: Chart data review, vital sign assessments/reviewing monitor data Review of consultation notes if present Medication orders/review and/or management Ordering and/or reviewing lab tests Ordering and/or interpreting/reviewing x-rays and/or diagnostic studies Care of the patient and discussion of the patient with the care team Documentation time To help prompt me to consider important information that might be impacting today's encounter and assessment, Information from prior notes written by myself or my colleagues may have been "brought forward/copy and pasted" into today's note.
[2018-02-22] MEDS: Oral Hygiene Kit OROPHARYNG SCH ×5 (00:03→23:12)
[2018-02-22] MEDS: Insulin NovoLOG Aspart Correctional Sugar Inj SQ SCH ×6 (00:03→20:44)
[2018-02-22] MEDS: Dexmedetomidine Inj 1,000 MCG in Sodium Chlor 0.9% Inj 240 ML IV.CONT PRN ×3 (00:31→18:31)
[2018-02-22] MEDS: Propofol 1000 mg/100 ml Inj 1,000 MG/100 ML BOTTLE IV.CONT PRN ×5 (00:57→20:52)
--- NOTE | 2018-02-22 04:04 | XR ---
EXAM DATE: 02/22/2018 6:00 AM EDT AGE/SEX: 32 years / Male INDICATIONS: Short of breath. CLINICAL DATA: This is the patient's subsequent encounter. Patient reports that signs and symptoms h ave been present for 1 week and indicates a pain score of 0/10. MEDICAL/SURGICAL HISTORY: Non-responsive. Non-responsive. COMPARISON: [facility] – [place]ST 1V SINGLE AP, 02/21/2018. . FINDINGS: Single AP view the chest. Tracheostomy tube remains in place. Persistent bilateral diffuse pulmonary opacity. No significant interval change. No change in the cardiomediastinal silhouette. No evidence o f pleural effusion or pneumothorax. CONCLUSION: No significant interval change. Persistent bilateral diffuse pulmonary parenchymal opacity. Electronically signed by: Ruddy Coleman MD 02/22/2018 4:03 AM EDT
[2018-02-22] MEDS: Aztreonam Inj 2 GM in Sodium Chloride 0.9% Inj 100 ML IV.SIG SCH ×3 (05:24→23:11)
[2018-02-22 05:32] LABS: Hematocrit 22.4 % (39.0-51.0); Hemoglobin 7.6 gm/dL (13.0-17.0); Mean Corpuscular HGB Conc 33.9 % (32.0-36.0); Mean Corpuscular Hemoglobin 32.4 pg (27.0-34.0); Mean Corpuscular Volume 95.5 fL (80.0-100.0); Mean Platelet Volume 6.8 fL (7.0-11.0); Platelet Count 811 th/mm3 (150-450); Red Blood Count 2.34 mil/mm3 (4.50-5.90); Red Cell Distribution Width 16.1 % (11.6-17.2)
[2018-02-22 05:55] LABS: Albumin 1.7 g/dL (3.4-5.0); Anion Gap 9 meq/L (5-15); Aspartate Aminotransferase 30 U/L (15-37); Blood Urea Nitrogen 13 mg/dL (7-18); Calcium 8.2 mg/dL (8.5-10.1); Carbon Dioxide 27.3 meq/L (21.0-32.0); Chloride 107 meq/L (98-107); Glomerular Filtration Rate Greater Than 89 mL/min (>89); Glucose,Random 123 mg/dL (74-106); Magnesium 1.7 mg/dL (1.5-2.5); Potassium 3.2 meq/L (3.5-5.1); Sodium 143 meq/L (136-145)
[2018-02-22 05:57] LABS: Alanine Aminotransferase 16 U/L (12-78)
[2018-02-22 05:59] LABS: Alkaline Phosphatase 94 U/L (45-117); Total Protein 5.8 g/dL (6.4-8.2)
[2018-02-22] MEDS: Carboxymethylcellulose 0.5% Opth Drops 15 ML Bottle EACH EYE SCH ×2 (09:08→23:10)
[2018-02-22] MEDS: Chlorhexidine 0.12% Oral Kit 15 ML UDC OROPHARYNG SCH ×2 (09:12→23:07)
--- NOTE | 2018-02-22 11:35 | P.PNGI ---
Subjective Interval history: Pt resting in bed, on sedation but awake and able to answer questions appropriately. Complaining of some pain with palpation around PEG site. Tube feeding remain off. RN at bedside. <Jennifer Carl - Last Filed: 02/22/18 11:29> Interval history: Seen and examined with DIE SIZER, doing better today. Strict NPO including TF and meds. EGD/Peg replacement tomorrow. Discussed with Mom. The exam, history, and the medical decision-making described in the above note were completed with the assistance of the mid-level provider. I reviewed and agree with the findings presented. I attest that I had a [id number] encounter with the patient on the same day, and personally performed and documented my assessment and findings in the medical record. <Carole Sarabia - Last Filed: 02/22/18 15:57> Physical Exam Vital signs: Vital Signs 02/21/18 11:30 02/21/18 11:33 02/21/18 11:45 Temperature Pulse Rate 95 H 94 H Respiratory Rate 28 H 28 H 30 H Blood Pressure 106/68 103/68 Pulse Oximetry 100 100 100 02/21/18 12:00 02/21/18 12:15 02/21/18 12:30 Temperature 100 F H Pulse Rate 91 H 101 H 99 H Respiratory Rate 29 H 37 H 37 H Blood Pressure 105/68 108/69 100/64 Pulse Oximetry 100 100 100 02/21/18 12:45 02/21/18 13:00 02/21/18 13:15 Temperature Pulse Rate 103 H 94 H 94 H Respiratory Rate 42 H 32 H 35 H Blood Pressure 111/73 106/63 108/65 Pulse Oximetry 99 100 02/21/18 13:30 02/21/18 13:45 02/21/18 14:00 Temperature Pulse Rate 95 H 94 H 92 H Respiratory Rate 37 H 25 H 32 H Blood Pressure 107/67 108/71 107/72 Pulse Oximetry 65 L 96 97 02/21/18 14:15 02/21/18 14:30 02/21/18 14:45 Temperature Pulse Rate 86 84 83 Respiratory Rate 26 H 27 H 26 H Blood Pressure 109/72 112/73 109/74 Pulse Oximetry 95 96 95 02/21/18 15:00 02/21/18 15:15 02/21/18 15:30 Temperature Pulse Rate 80 81 81 Respiratory Rate 28 H 27 H 30 H Blood Pressure 110/71 109/71 105/70 Pulse Oximetry 96 94 L 95 02/21/18 15:47 02/21/18 16:00 02/21/18 16:11 Temperature 98.8 F Pulse Rate 91 H 113 H 100 H Respiratory Rate 34 H 39 H 38 H Blood Pressure 96/67 L 101/59 L 93/72 L Pulse Oximetry 98 99 02/21/18 16:13 02/21/18 16:15 02/21/18 17:00 Temperature Pulse Rate 95 H 75 Respiratory Rate 27 H 28 H 24 Blood Pressure 102/72 Pulse Oximetry 97 92 L 02/21/18 18:00 02/21/18 19:41 02/21/18 20:00 Temperature 98.7 F Pulse Rate 73 71 76 Respiratory Rate 24 25 H Blood Pressure 107/70 Pulse Oximetry 94 L 94 L 02/21/18 20:53 02/21/18 22:00 02/21/18 23:55 Temperature Pulse Rate 68 Respiratory Rate 25 H 32 H Blood Pressure Pulse Oximetry 94 L 02/22/18 00:00 02/22/18 02:00 02/22/18 02:24 Temperature 98.6 F Pulse Rate 81 82 Respiratory Rate 22 25 H Blood Pressure 102/57 L Pulse Oximetry 97 02/22/18 04:00 02/22/18 06:00 02/22/18 07:43 Temperature 98.8 F Pulse Rate 64 72 Respiratory Rate 23 23 Blood Pressure 112/76 Pulse Oximetry 96 99 02/22/18 07:47 02/22/18 11:11 Temperature Pulse Rate 75 Respiratory Rate 26 H 28 H Blood Pressure Pulse Oximetry 98 Intake & Output 02/21/18 02/22/18 02/22/18 18:59 06:59 18:59 Intake Total 1812 / 1812 1250 / 1250 100 / 100 Output Total 2525 / 2525 800 / 800 Balance -713 / -713 450 / 450 100 / 100 Weight 84 kg Intake: IV 1150 / 1150 1250 / 1250 100 / 100 Precedex Inj 1,000 MCG In NS 250 / 250 250 / 250 Inj 240 ML @ 0.2 MCG/KG/HR 4.27 mls/hr IV.CONT TITRATE PRN Rx# :[id number] Diprivan 1000 mg/100 ml Inj 1, 200 / 200 300 / 300 100 / 100 000 mg In 100 ml @ 5 MCG/KG/MIN 2.604 mls/hr IV.CONT TITRATE PRN Rx#:[id number] Azactam Inj 2 GM In NS Inj 100 100 / 100 200 / 200 ML @ 200 mls/hr IV.SIG Q8H GERMAINE Rx#:[id number] Zyvox 600 mg Premix 300 ML @ 300 / 300 300 / 300 300 mls/hr IV.SIG Q12H GERMAINE Rx#: [id number] Mycamine Inj 150 MG In NS Inj 100 / 100 100 ML @ 100 mls/hr IV.SIG Q24H GERMAINE Rx#:[id number] Flagyl 500 MG Inj 100 ML @ 100 200 / 200 200 / 200 mls/hr IV.SIG Q6H GERMAINE Rx#: [id number] Tube Feeding 382 / 382 Tube Irrigant 180 / 180 Water Bolus Amount 100 / 100 Output: Urine 2525 / 2525 800 / 800 Other: Date of Last Bowel Movement 02/21/18 02/20/18 - Constitutional no acute distress - Routine HEENT Exam Head: Present: normocephalic, atraumatic - Routine Respiratory Exam Present: patient mechanically ventilated - Routine Abdominal Exam Present: soft, normoactive bowel sounds, tenderness. Absent: distended Comments: tenderness to palpation around PEG site, small amount of purulent drainage, bumper approximately 2 cm from skin, PEG tube clamped - Routine Skin Exam Present: dry, warm - Routine Neurological Exam Present: alert, oriented X3 - Urinary Catheter Management Coude Cath placed during this visit: yes, but has since been removed by the nurse Reason for continuing: Decision to DC catheter Insertion date: 01/28/18 Insertion time: 13:15 Removal date: 02/03/18 Removal time: 15:15 Straight Cath placed during this visit: yes, but has since been removed by the nurse Reason for continuing: Acute urinary retention Insertion date: 02/12/18 Insertion time: 08:00 Removal date: 02/04/18 Indwelling Urethral Catheter Cath placed during this visit: yes, but has since been removed by the nurse Reason for continuing: Decision to DC catheter Insertion date: 02/12/18 Insertion time: 07:00 Removal date: 02/17/18 Removal time: 15:10 <[email or web address] - Last Filed: 02/22/18 11:29> Vital signs: Vital Signs 02/21/18 16:00 02/21/18 16:11 02/21/18 16:13 Temperature 98.8 F Pulse Rate 113 H 100 H Respiratory Rate 39 H 38 H 27 H Blood Pressure 101/59 L 93/72 L Pulse Oximetry 99 97 02/21/18 16:15 02/21/18 17:00 02/21/18 18:00 Temperature Pulse Rate 95 H 75 73 Respiratory Rate 28 H 24 Blood Pressure 102/72 Pulse Oximetry 92 L 02/21/18 19:41 02/21/18 20:00 02/21/18 20:53 Temperature 98.7 F Pulse Rate 71 76 Respiratory Rate 24 25 H 25 H Blood Pressure 107/70 Pulse Oximetry 94 L 94 L 02/21/18 22:00 02/21/18 23:55 02/22/18 00:00 Temperature 98.6 F Pulse Rate 68 81 Respiratory Rate 32 H 22 Blood Pressure 102/57 L Pulse Oximetry 94 L 97 02/22/18 02:00 02/22/18 02:24 02/22/18 04:00 Temperature 98.8 F Pulse Rate 82 64 Respiratory Rate 25 H 23 Blood Pressure 112/76 Pulse Oximetry 96 02/22/18 06:00 02/22/18 07:43 02/22/18 07:47 Temperature Pulse Rate 72 75 Respiratory Rate 23 26 H Blood Pressure Pulse Oximetry 99 02/22/18 11:11 02/22/18 12:26 02/22/18 15:00 Temperature Pulse Rate 89 88 Respiratory Rate 28 H 32 H 36 H Blood Pressure Pulse Oximetry 98 02/22/18 15:39 Temperature Pulse Rate Respiratory Rate 35 H Blood Pressure Pulse Oximetry 98 Intake & Output 02/21/18 02/22/18 02/22/18 18:59 06:59 18:59 Intake Total 1812 / 1812 1250 / 1250 450 / 450 Output Total 2525 / 2525 800 / 800 Balance -713 / -713 450 / 450 450 / 450 Weight 84 kg Intake: IV 1150 / 1150 1250 / 1250 450 / 450 Precedex Inj 1,000 MCG In NS 250 / 250 250 / 250 250 / 250 Inj 240 ML @ 0.2 MCG/KG/HR 4.27 mls/hr IV.CONT TITRATE PRN Rx# :[id number] Diprivan 1000 mg/100 ml Inj 1, 200 / 200 300 / 300 100 / 100 000 mg In 100 ml @ 5 MCG/KG/MIN 2.604 mls/hr IV.CONT TITRATE PRN Rx#:[id number] Azactam Inj 2 GM In NS Inj 100 100 / 100 200 / 200 ML @ 200 mls/hr IV.SIG Q8H GERMAINE Rx#:[id number] Zyvox 600 mg Premix 300 ML @ 300 / 300 300 / 300 300 mls/hr IV.SIG Q12H GERMAINE Rx#: [id number] Mycamine Inj 150 MG In NS Inj 100 / 100 100 ML @ 100 mls/hr IV.SIG Q24H GERMAINE Rx#:[id number] Flagyl 500 MG Inj 100 ML @ 100 200 / 200 200 / 200 100 / 100 mls/hr IV.SIG Q6H GERMAINE Rx#: [id number] Tube Feeding 382 / 382 Tube Irrigant 180 / 180 Water Bolus Amount 100 / 100 Output: Urine 2525 / 2525 800 / 800 Other: Date of Last Bowel Movement 02/21/18 02/20/18 - Urinary Catheter Management Coude Cath placed during this visit: no Straight Cath placed during this visit: no Indwelling Urethral Catheter Cath placed during this visit: no <Carole Sarabia - Last Filed: 02/22/18 15:57> Results - Labs CBC & Chem 7: 02/22/18 05:21 02/22/18 05:21 Laboratory Results - last 24 hr 02/21/18 02/21/18 02/21/18 06:53 11:45 11:47 WBC RBC Hgb Hct MCV MCH MCHC RDW Plt Count MPV Sodium Potassium Chloride Carbon Dioxide Anion Gap BUN Creatinine Estimated GFR POC Glucose 132 H Random Glucose Calcium Magnesium Total Bilirubin AST ALT Alkaline Phosphatase B-Natriuretic Peptide 1645 H Total Protein Albumin Urine Color Straw Urine Clarity Clear Urine pH 6.0 Ur Specific Rogers 1.010 Urine Protein Negative Urine Glucose (UA) Negative Urine Ketones Negative Urine Occult Blood Small H Urine Nitrate Negative Urine Bilirubin Negative Urine Urobilinogen Less than 2 Ur Leukocyte Esterase Negative Urine RBC 3 Urine WBC 3 Ur Squamous Epith Cells <1 Urine Mucus Few H Micro UA Comment Culture not ind Ur Microscopic Review Not Reportable Urine Culture Comments Culture not ind 02/21/18 02/21/18 02/21/18 17:04 19:51 23:53 WBC RBC Hgb Hct MCV MCH MCHC RDW Plt Count MPV Sodium Potassium Chloride Carbon Dioxide Anion Gap BUN Creatinine Estimated GFR POC Glucose 156 H 80 129 H Random Glucose Calcium Magnesium Total Bilirubin AST ALT Alkaline Phosphatase B-Natriuretic Peptide Total Protein Albumin Urine Color Urine Clarity Urine pH Ur Specific Rogers Urine Protein Urine Glucose (UA) Urine Ketones Urine Occult Blood Urine Nitrate Urine Bilirubin Urine Urobilinogen Ur Leukocyte Esterase Urine RBC Urine WBC Ur Squamous Epith Cells Urine Mucus Micro UA Comment Ur Microscopic Review Urine Culture Comments 02/22/18 02/22/18 02/22/18 05:21 05:21 09:11 WBC 10.0 D RBC 2.34 L Hgb 7.6 L Hct 22.4 L MCV 95.5 MCH 32.4 MCHC 33.9 RDW 16.1 Plt Count 811 H MPV 6.8 L Sodium 143 Potassium 3.2 L Chloride 107 Carbon Dioxide 27.3 Anion Gap 9 BUN 13 Creatinine 0.76 Estimated GFR Greater than 89 POC Glucose 68 Random Glucose 123 H Calcium 8.2 L Magnesium 1.7 Total Bilirubin 0.3 AST 30 ALT 16 Alkaline Phosphatase 94 B-Natriuretic Peptide Total Protein 5.8 L Albumin 1.7 L Urine Color Urine Clarity Urine pH Ur Specific Rogers Urine Protein Urine Glucose (UA) Urine Ketones Urine Occult Blood Urine Nitrate Urine Bilirubin Urine Urobilinogen Ur Leukocyte Esterase Urine RBC Urine WBC Ur Squamous Epith Cells Urine Mucus Micro UA Comment Ur Microscopic Review Urine Culture Comments 02/22/18 09:29 WBC RBC Hgb Hct MCV MCH MCHC RDW Plt Count MPV Sodium Potassium Chloride Carbon Dioxide Anion Gap BUN Creatinine Estimated GFR POC Glucose 154 H Random Glucose Calcium Magnesium Total Bilirubin AST ALT Alkaline Phosphatase B-Natriuretic Peptide Total Protein Albumin Urine Color Urine Clarity Urine pH Ur Specific Rogers Urine Protein Urine Glucose (UA) Urine Ketones Urine Occult Blood Urine Nitrate Urine Bilirubin Urine Urobilinogen Ur Leukocyte Esterase Urine RBC Urine WBC Ur Squamous Epith Cells Urine Mucus Micro UA Comment Ur Microscopic Review Urine Culture Comments Microbiology 02/21/18 10:44 Blood - Peripheral Aerobic Blood Culture - Preliminary No growth in 1 day 02/21/18 10:44 Blood - Peripheral Anaerobic Blood Culture - Preliminary No growth in 1 day 02/21/18 10:23 Blood - Peripheral Aerobic Blood Culture - Preliminary No growth in 1 day 02/21/18 10:23 Blood - Peripheral Anaerobic Blood Culture - Preliminary No growth in 1 day 02/21/18 09:30 Sputum - Endotracheal Gram Stain - Final - Imaging Impressions Chest CT 02/21/18 00:00 CONCLUSION: 1. G-tube is within the anterior abdominal wall left rectus muscle with a sinus tract extending to the stomach. Findings called to Dr. Allen at the time of dictation. 2. Slight worsening of bilateral patchy airspace consolidation and bilateral effusions since February 20. 3. Tracheostomy in good position. Abdomen X-Ray 02/21/18 17:10 CONCLUSION: No peritoneal leakage identified with Gastrografin injection. Chest X-Ray 02/22/18 06:00 CONCLUSION: No significant interval change. Persistent bilateral diffuse pulmonary parenchymal opacity. <Jennifer Carl - Last Filed: 02/22/18 11:29> - Labs CBC & Chem 7: 02/22/18 05:21 02/22/18 05:21 Laboratory Results - last 24 hr 02/21/18 02/21/18 02/21/18 17:04 19:51 23:53 WBC RBC Hgb Hct MCV MCH MCHC RDW Plt Count MPV Sodium Potassium Chloride Carbon Dioxide Anion Gap BUN Creatinine Estimated GFR POC Glucose 156 H 80 129 H Random Glucose Calcium Magnesium Total Bilirubin AST ALT Alkaline Phosphatase Total Protein Albumin 02/22/18 02/22/18 02/22/18 05:21 05:21 09:11 WBC 10.0 D RBC 2.34 L Hgb 7.6 L Hct 22.4 L MCV 95.5 MCH 32.4 MCHC 33.9 RDW 16.1 Plt Count 811 H MPV 6.8 L Sodium 143 Potassium 3.2 L Chloride 107 Carbon Dioxide 27.3 Anion Gap 9 BUN 13 Creatinine 0.76 Estimated GFR Greater than 89 POC Glucose 68 Random Glucose 123 H Calcium 8.2 L Magnesium 1.7 Total Bilirubin 0.3 AST 30 ALT 16 Alkaline Phosphatase 94 Total Protein 5.8 L Albumin 1.7 L 02/22/18 02/22/18 09:29 11:15 WBC RBC Hgb Hct MCV MCH MCHC RDW Plt Count MPV Sodium Potassium Chloride Carbon Dioxide Anion Gap BUN Creatinine Estimated GFR POC Glucose 154 H 118 H Random Glucose Calcium Magnesium Total Bilirubin AST ALT Alkaline Phosphatase Total Protein Albumin Microbiology 02/21/18 09:30 Sputum - Endotracheal Gram Stain - Final 02/21/18 09:30 Sputum - Endotracheal Sputum Culture - Preliminary Heavy growth normal respiratory pepito at 24 hours 02/17/18 13:20 Bronchial Washings - Right Upper Lobe Fungal Smear - Final No fungal elements seen 02/17/18 13:20 Bronchial Washings - Right Upper Lobe Fungal Culture - Preliminary 02/21/18 10:44 Blood - Peripheral Aerobic Blood Culture - Preliminary No growth in 1 day 02/21/18 10:44 Blood - Peripheral Anaerobic Blood Culture - Preliminary No growth in 1 day 02/21/18 10:23 Blood - Peripheral Aerobic Blood Culture - Preliminary No growth in 1 day 02/21/18 10:23 Blood - Peripheral Anaerobic Blood Culture - Preliminary No growth in 1 day - Imaging Impressions Chest CT 02/21/18 00:00 CONCLUSION: 1. G-tube is within the anterior abdominal wall left rectus muscle with a sinus tract extending to the stomach. Findings called to Dr. Allen at the time of dictation. 2. Slight worsening of bilateral patchy airspace consolidation and bilateral effusions since February 20. 3. Tracheostomy in good position. Abdomen X-Ray 02/21/18 17:10 CONCLUSION: No peritoneal leakage identified with Gastrografin injection. Chest X-Ray 02/22/18 06:00 CONCLUSION: No significant interval change. Persistent bilateral diffuse pulmonary parenchymal opacity. <Carole Sarabia - Last Filed: 02/22/18 15:57> Assessment and Plan - Plan Assessment: - Possible peritonitis secondary to track formation from PEG tube EGD with PEG (02/09) 22 Fr PEG placed successfully, otherwise normal exam Leukocytosis yesterday, resolved today Afebrile, blood pressure stable, not on pressors Plan: EGD with possible PEG replacement Timing TBD based on scheduling availability Obtain consent No feedings through PEG Further recommendations to follow Discussed with RN Discussed with Dr. Allen Pt has been seen and examined by myself and Dr. Sarabia and this note is written on his behalf <Jennifer Carl - Last Filed: 02/22/18 11:29>
--- NOTE | 2018-02-22 11:46 | P.PNID ---
Subjective Remarks: Events noted. PEG tube malpositioned and track formed into peritoneum. Temp is lower. WBC has decreased. Patient on the vent. Awakens and communicating despite sedation. New cultures pending. Worsened diffuse bilateral lung infiltrate yesterday. Status post tracheostomy 02/08/2018. This is a 32-year-old white male who presented to the emergency department with 2-day history of nausea, vomiting, and diarrhea. The patient ended up intubated after he went into ventricular fibrillation cardiac arrest and was resuscitated. He also was noted to have seizure activity. Antibiotics: IV Flagyl PO Vanco Micafungin. Aztreonam. Zyvox. Lines: Has peripheral IV Lines ok Past Medical History: PAST MEDICAL HISTORY: Alcohol abuse, gastroesophageal reflux disease, hernia, depression, pancreatitis, seizure disorder, left inguinal hernia repair. Allergies/Adverse Reactions: Allergies Sulfa (Sulfonamide Antibiotics) Allergy (Severe, Verified 10/11/17 07:56) hives cefepime Adverse Reaction (Intermediate, Verified 02/15/18 10:55) Rash, Generalized Objective Vital Signs 02/21/18 11:45 02/21/18 12:00 02/21/18 12:15 Temperature 100 F H Pulse Rate 94 H 91 H 101 H Respiratory Rate 30 H 29 H 37 H Blood Pressure 103/68 105/68 108/69 Pulse Oximetry 100 100 100 02/21/18 12:30 02/21/18 12:45 02/21/18 13:00 Temperature Pulse Rate 99 H 103 H 94 H Respiratory Rate 37 H 42 H 32 H Blood Pressure 100/64 111/73 106/63 Pulse Oximetry 100 99 100 02/21/18 13:15 02/21/18 13:30 02/21/18 13:45 Temperature Pulse Rate 94 H 95 H 94 H Respiratory Rate 35 H 37 H 25 H Blood Pressure 108/65 107/67 108/71 Pulse Oximetry 65 L 96 02/21/18 14:00 02/21/18 14:15 02/21/18 14:30 Temperature Pulse Rate 92 H 86 84 Respiratory Rate 32 H 26 H 27 H Blood Pressure 107/72 109/72 112/73 Pulse Oximetry 97 95 96 02/21/18 14:45 02/21/18 15:00 02/21/18 15:15 Temperature Pulse Rate 83 80 81 Respiratory Rate 26 H 28 H 27 H Blood Pressure 109/74 110/71 109/71 Pulse Oximetry 95 96 94 L 02/21/18 15:30 02/21/18 15:47 02/21/18 16:00 Temperature 98.8 F Pulse Rate 81 91 H 113 H Respiratory Rate 30 H 34 H 39 H Blood Pressure 105/70 96/67 L 101/59 L Pulse Oximetry 95 98 02/21/18 16:11 02/21/18 16:13 02/21/18 16:15 Temperature Pulse Rate 100 H 95 H Respiratory Rate 38 H 27 H 28 H Blood Pressure 93/72 L Pulse Oximetry 99 97 02/21/18 17:00 02/21/18 18:00 02/21/18 19:41 Temperature Pulse Rate 75 73 71 Respiratory Rate 24 24 Blood Pressure 102/72 Pulse Oximetry 92 L 94 L 02/21/18 20:00 02/21/18 20:53 02/21/18 22:00 Temperature 98.7 F Pulse Rate 76 68 Respiratory Rate 25 H 25 H Blood Pressure 107/70 Pulse Oximetry 94 L 02/21/18 23:55 02/22/18 00:00 02/22/18 02:00 Temperature 98.6 F Pulse Rate 81 82 Respiratory Rate 32 H 22 Blood Pressure 102/57 L Pulse Oximetry 94 L 97 02/22/18 02:24 02/22/18 04:00 02/22/18 06:00 Temperature 98.8 F Pulse Rate 64 72 Respiratory Rate 25 H 23 Blood Pressure 112/76 Pulse Oximetry 96 02/22/18 07:43 02/22/18 07:47 02/22/18 11:11 Temperature Pulse Rate 75 Respiratory Rate 23 26 H 28 H Blood Pressure Pulse Oximetry 99 98 Intake & Output 02/21/18 02/22/18 02/22/18 18:59 06:59 18:59 Intake Total 1812 / 1812 1250 / 1250 100 / 100 Output Total 2525 / 2525 800 / 800 Balance -713 / -713 450 / 450 100 / 100 Weight 84 kg Intake: IV 1150 / 1150 1250 / 1250 100 / 100 Precedex Inj 1,000 MCG In NS 250 / 250 250 / 250 Inj 240 ML @ 0.2 MCG/KG/HR 4.27 mls/hr IV.CONT TITRATE PRN Rx# :[id number] Diprivan 1000 mg/100 ml Inj 1, 200 / 200 300 / 300 100 / 100 000 mg In 100 ml @ 5 MCG/KG/MIN 2.604 mls/hr IV.CONT TITRATE PRN Rx#:[id number] Azactam Inj 2 GM In NS Inj 100 100 / 100 200 / 200 ML @ 200 mls/hr IV.SIG Q8H GERMAINE Rx#:[id number] Zyvox 600 mg Premix 300 ML @ 300 / 300 300 / 300 300 mls/hr IV.SIG Q12H GERMAINE Rx#: [id number] Mycamine Inj 150 MG In NS Inj 100 / 100 100 ML @ 100 mls/hr IV.SIG Q24H GERMAINE Rx#:[id number] Flagyl 500 MG Inj 100 ML @ 100 200 / 200 200 / 200 mls/hr IV.SIG Q6H GERMAINE Rx#: [id number] Tube Feeding 382 / 382 Tube Irrigant 180 / 180 Water Bolus Amount 100 / 100 Output: Urine 2525 / 2525 800 / 800 Other: Date of Last Bowel Movement 02/21/18 02/20/18 02/21/18 10:44 Blood - Peripheral Aerobic Blood Culture - Preliminary No growth in 1 day 02/21/18 10:44 Blood - Peripheral Anaerobic Blood Culture - Preliminary No growth in 1 day 02/21/18 10:23 Blood - Peripheral Aerobic Blood Culture - Preliminary No growth in 1 day 02/21/18 10:23 Blood - Peripheral Anaerobic Blood Culture - Preliminary No growth in 1 day 02/21/18 09:30 Sputum - Endotracheal Gram Stain - Final 02/21/18 09:30 Sputum - Endotracheal Sputum Culture - Pending 02/17/18 13:20 Bronchial Washings - Right Upper Lobe Acid Fast Bacilli Smear - Final No acid fast bacilli seen 02/17/18 13:20 Bronchial Washings - Right Upper Lobe Mycobacterial Culture - Pending 02/17/18 13:20 Bronchial - Right Upper Lobe Gram Stain - Final 02/17/18 13:20 Bronchial - Right Upper Lobe Bronchial Culture - Final Moderate growth normal respiratory pepito Lab - Hematology Results 02/21/18 02/22/18 06:53 05:21 WBC 22.0 H 10.0 D RBC 2.41 L 2.34 L Hgb 7.7 L 7.6 L Hct 23.0 L 22.4 L MCV 95.5 95.5 MCH 32.0 32.4 MCHC 33.5 33.9 RDW 16.6 16.1 Plt Count 869 H 811 H MPV 7.3 6.8 L Neut % (Auto) 85.6 H Lymph % (Auto) 6.0 L Swain % (Auto) 7.6 Eos % (Auto) 0.0 Baso % (Auto) 0.8 Neut # (Auto) 18.9 H Lymph # (Auto) 1.3 Swain # (Auto) 1.7 H Eos # (Auto) 0.0 Baso # (Auto) 0.2 WBC Differential . Differential Comment Auto diff final Lab - Chemistry Results 02/20/18 02/20/18 02/20/18 12:27 16:44 19:27 Sodium Potassium Chloride Carbon Dioxide Anion Gap BUN Creatinine Estimated GFR POC Glucose 120 H 120 H 130 H Random Glucose Lactic Acid Calcium Phosphorus Magnesium Total Bilirubin AST ALT Alkaline Phosphatase B-Natriuretic Peptide Total Protein Albumin 02/20/18 02/21/18 02/21/18 23:55 03:39 06:53 Sodium 145 Potassium 3.7 Chloride 107 Carbon Dioxide 25.1 Anion Gap 13 BUN 10 Creatinine 0.85 Estimated GFR Greater than 89 POC Glucose 147 H 177 H Random Glucose 115 H Lactic Acid Calcium 8.0 L D Phosphorus 3.2 Magnesium 1.9 Total Bilirubin 0.3 AST 38 H ALT 16 Alkaline Phosphatase 107 B-Natriuretic Peptide Total Protein 5.9 L Albumin 1.8 L 02/21/18 02/21/18 02/21/18 06:53 09:39 10:23 Sodium Potassium Chloride Carbon Dioxide Anion Gap BUN Creatinine Estimated GFR POC Glucose 133 H Random Glucose Lactic Acid 0.8 Calcium Phosphorus Magnesium Total Bilirubin AST ALT Alkaline Phosphatase B-Natriuretic Peptide 1645 H Total Protein Albumin 02/21/18 02/21/18 02/21/18 11:47 17:04 19:51 Sodium Potassium Chloride Carbon Dioxide Anion Gap BUN Creatinine Estimated GFR POC Glucose 132 H 156 H 80 Random Glucose Lactic Acid Calcium Phosphorus Magnesium Total Bilirubin AST ALT Alkaline Phosphatase B-Natriuretic Peptide Total Protein Albumin 02/21/18 02/22/18 02/22/18 23:53 05:21 09:11 Sodium 143 Potassium 3.2 L Chloride 107 Carbon Dioxide 27.3 Anion Gap 9 BUN 13 Creatinine 0.76 Estimated GFR Greater than 89 POC Glucose 129 H 68 Random Glucose 123 H Lactic Acid Calcium 8.2 L Phosphorus Magnesium 1.7 Total Bilirubin 0.3 AST 30 ALT 16 Alkaline Phosphatase 94 B-Natriuretic Peptide Total Protein 5.8 L Albumin 1.7 L 02/22/18 02/22/18 09:29 11:15 Sodium Potassium Chloride Carbon Dioxide Anion Gap BUN Creatinine Estimated GFR POC Glucose 154 H 118 H Random Glucose Lactic Acid Calcium Phosphorus Magnesium Total Bilirubin AST ALT Alkaline Phosphatase B-Natriuretic Peptide Total Protein Albumin Imaging: ITS Impressions Gallbladder Ultrasound 01/30/18 00:00 CONCLUSION: 1. Unremarkable study. Abdomen/Bladder Ultrasound 01/30/18 15:17 CONCLUSION: 1. Negative renal sonogram. Head CT 02/06/18 03:50 CONCLUSION: 1. No acute intracranial abnormalities. . Head MRI 02/09/18 00:00 CONCLUSION: 1. Normal MRI of the brain. 2. Sinusitis and mastoiditis. Chest CTA 02/14/18 00:00 CONCLUSION: No evidence of pulmonary embolism. New right upper lobe pneumonia. Improving aeration on the left. Abdomen/Pelvis CT 02/20/18 00:00 CONCLUSION: 1. Interval development of 6 cm smooth margin low density cystic structure about the tail of the pancreas suggesting possible pseudocyst formation. 2. Percutaneous gastrostomy in place. No evidence of free intraperitoneal gas or free fluid. 3. Development of diffuse anasarca. 4. Interval development development of moderate-sized right pleural effusion and multifocal subsegmental areas of infiltrate in the right lower lung and decrease in size of left pleural effusion. Chest CT 02/21/18 00:00 CONCLUSION: 1. G-tube is within the anterior abdominal wall left rectus muscle with a sinus tract extending to the stomach. Findings called to Dr. Allen at the time of dictation. 2. Slight worsening of bilateral patchy airspace consolidation and bilateral effusions since February 20. 3. Tracheostomy in good position. Abdomen X-Ray 02/21/18 17:10 CONCLUSION: No peritoneal leakage identified with Gastrografin injection. Chest X-Ray 02/22/18 06:00 CONCLUSION: No significant interval change. Persistent bilateral diffuse pulmonary parenchymal opacity. Physical Exam: PHYSICAL EXAMINATION: GENERAL: Awake. No distress. On vent. HEENT: Pupils are equal and reactive. No icterus. NECK: No adenopathy or swelling. LUNGS: Coarse breath sounds. HEART: Regular S1 and S2. No murmurs heard. ABDOMEN: Bowel sounds present. Soft. No tenderness appreciated. No mass palpable. EXTREMITIES: No clubbing, cyanosis. edema of the hands. Swelling at RUE. SKIN: No rash. NEUROLOGIC: Non focal. PSYCHIATRIC: Unable to fully assess. Assessment and Plan - Plan IMPRESSION: 1. Possible sepsis. However cultures have been negative. Previous staph coagulase positive blood culture felt to be contamination. Subsequent cultures negative. No clear source. 2. Skin rash. Likely drug related. Probably cefepime was associated. 3. Pneumonia. Suspect aspiration. 4. Status post cardiac arrest. 5. Acute respiratory failure. Patient now post tracheostomy. 6. Acute renal failure. Improved. 7. Seizure disorder. 8. Diarrhea. Questionable antibiotic associated. 9. Oliva UTI. 10. Leukocytosis improved. 11. C. difficile colitis. I spoke to microbiology regarding the C. difficile PCR test. 12. Still having fever. ? etiology. Worsened lung infiltrates. ay have peritonitis secondary to peg tube migrating into peritoneum. RECOMMENDATIONS: 1. Continue Zyvox. 2. Continue Micafungin. 3. Continue Aztreonam. 4. Continue intravenous Flagyl for C. difficile. 5. Continue p.o. vancomycin for C. difficile. 6. Monitor cultures. 7. Monitor temp and WBC. 8. Will plan on deescalating abx depending on cultures or clinical state.
[2018-02-22] MEDS: Aspirin 325 MG Tablet PO SCH (11:47)
[2018-02-22] MEDS: Famotidine 20 MG Tablet G-TUBE SCH ×2 (11:48→23:10)
[2018-02-22] MEDS: levETIRAcetam 500 MG Tablet NG/OG SCH ×2 (11:48→23:09)
[2018-02-22] MEDS: Potassium Chloride 25 MEQ Effervescent Tablet NG/OG SCH ×2 (11:48→23:09)
[2018-02-22] MEDS: Magnesium Oxide 400 MG Tablet PO SCH ×2 (11:48→23:09)
[2018-02-22] MEDS: Heparin - SQ 10,000 UNITS/ML Vial SQ SCH ×2 (11:48→20:32)
[2018-02-22] MEDS: Senna/Docusate Sodium 8.6/50 MG Tablet PO SCH ×2 (11:49→23:10)
[2018-02-22] MEDS: Dextrose 5%/NaCl 0.9% Inj 1,000 ML IV.SIG SCH (11:52)
--- NOTE | 2018-02-22 13:02 | P.PNCC ---
Subjective Subjective Remarks/Hospital Course: This is a 32-year-old male. Admission 01/28/2018. Past medical history includes seizure disorder/noncompliant with levetiracetam, previous EtOH sober for 4 weeks, anorexia, gastroesophageal reflux disease and chronic pancreatitis. Patient presented to [facility] 01/28/2018 with a two-day history of nausea vomiting and diarrhea. Patient's mother/discussed at bedside stated she had just had a "stomach flu" which she has currently recovered. Mom states that the patient has become fairly dehydrated is been having some cramping of his hands. She is worried that he is getting dehydrated and his potassium might begin low. He was unable to tolerate a banana so she gave him some potassium pills p.o. which she also did not tolerate and threw up. Sober 4 weeks according to mother. Patient was noted to have a low potassium at 2.0. Creatinine of 4.0. This is in line with his previous hospitalizations for acute dehydration. Lipase was slightly elevated. Patient does have a history of seizure disorder which is not compliant with levetiracetam. ED physician was called into room because the RN believed he had a seizure. Patient was unresponsive. Mother states this was not like any seizure that she had seen. Pulses not palpable therefore CPR was initiated. Initial rhythm was V. fib. Patient received amiodarone, lidocaine, epinephrine, bicarbonate, magnesium during the 35 minute code with return of spontaneous circulation after 35 minutes. Pupils are about 9 mils bilaterally and 6. When I saw the patient patient was actively thrashing moving all 4 extremities spontaneously but not to command. Pupils are round 8 mm bilaterally and nonreactive. Brain CT revealed no acute findings. CT thorax revealed a left upper and lower lobe. CT abdomen pelvis pending at time of dictation. Likely, troponin pending. EKG revealed incomplete right bundle block with ST depression in the inferior and lateral leads. Cardiology consulted. They will evaluate after stat echocardiogram and troponins been completed. Potassium will be replaced pending [facility] 01/29: persistently in shock. following commands this AM. trop uptrended overnight and now > 40. on levo @ 10, vasopressin. bedside echo with persistence of his global severe LV systolic dysfunction. IVC dilated without respiratory variation. initially attempted therapeutic hypothermia, but became arrhythmogenic and neurologic exam improved and now following commands, so hypothermia aborted. persistently hypokalemic and hypophosphatemic this AM. in addition, remains with severe metabolic alkalosis. 01/30: Troponin trending down, continues to have severe hypokalemia and metabolic alkalosis. Creatinine continues to trend up, only produced 200 cc of urine over the past 24 hours. 01/31: Patient seen by nephrology yesterday and given bumex, urine output dramatically increased, potassium improved with aggressive repletion, pressors now off and dobutamine at 5. 02/01: No issues overnight. Patient tolerated dobutamine at 2 yesterday, discontinued this morning. Switching propofol to precedex and would like to start SBTs today. Overall improved. 02/02: Tolerated switch to precedex yesterday and was on bipap 05/06 for several hours yesterday afternoon, placed back on AC overnight to avoid respiratory fatigue. 02/03: Patient had no overnight events, tolerated SBT x 5 hours yesterday. Significantly agitated this morning during sedation vacation. 02/04: Patient still struggles with agitation when we lighten sedation. 02/05: Temp 103F this morning, no obvious source of infection. Needs to have PICC line placed today. 02/06: reintubated yesterday. overnight persistently febrile. this morning appears in distress- tachypneic on the ventilator, acidotic. potassium up to 5.8 despite medical management. bedside echo with improving LVEF and completely collapsed IVC. no pericardial effusion. lung ultrasound without effusions. 02/07: Remains sedated, orally intubated on mechanical ventilation. On propofol fentanyl and Versed drips. Transfuse 1 unit PRBCs earlier today for drop in hemoglobin. 02/08: Remains sedated, orally intubated on mechanical ventilation. On propofol fentanyl and Versed drips. Awaiting tracheostomy which is scheduled for later today. 02/09: Overnight, new onset of maculopapular rash noted. Noted discontinuation of cefepime 02/08. Received 1 dose diphenhydramine overnight. 02/10: Afebrile. Discussed with mom at bedside. Follows commands weakly bilateral upper and lower extremities. Diffuse macular papular rash improved lower extremities. Appears stable and upper thorax. On Famotidine, methylprednisolone and diphenhydramine 02/11: Afebrile. Opens eyes to voice. Following commands weakly bilateral upper lower extremity. On propofol 50 roxanne grams per kilogram, a fentanyl drip at 250 mg of midazolam drip at 6 mg an hour due to "agitation" overnight. Will wean. Increased quetiapine to 100 twice daily. 02/12: remains on vent at this time, sedated. Follows commands all extremities weakly. RN states that she increase her sedation as the patient was tachycardic and hypotensive. I will start labetalol 200 mg twice daily and attempt sedation wean. 02/13: T-max 101.5. Remains on fentanyl drip at 250 roxanne grams an hour, midazolam drip at 7 mg an hour and fentanyl drip at 250 roxanne grams an hour. Started labetalol 200 mg twice a yesterday but now hypotensive. Tube feeds currently at 10 cc an hour. 02/14: T-max 100.3. Remains on fentanyl drip at 250 roxanne grams an hour, midazolam drip at 7 mg and fentanyl drip 250 mcg an hour. 2 feedings currently at [address] pulmonary angiogram today per cardiology request. Will discuss some other possible transfer to select hospital today. 02/15: T-max 100.3. Tube feedings currently at [address] pulmonary angiogram revealed right upper lobe infiltrate/new. No pulmonary embolism. Opens eyes to voice. 02/16: T-max 100.7. Arousable to voice and close his eyes. Noted increasing platelets currently 876. Will check iron studies and peripheral smear. Again continued difficulty weaning off IV sedation due to severe agitation. 02/17: Remains febrile. Plan for bronchoscopy right upper lobe infiltrate. Please continue to increase. Tolerating tube feeds at 50 cc an hour. Positive BM. 02/18: T-max 103.2. Currently afebrile. Bronchoscopy yesterday Gram stain negative. Tube feeds at goal. 02/19: T-max 101.4. Currently sitting in chair on trach collar on dexmedetomidine drip at 1.5 mcg/kg/h SUBJECTIVE: 02/20: Last fever at noon yesterday. Currently afebrile. Currently on dexmedetomidine drip at 1.3 mg/kg/h. Increasing quetiapine to 300 mg twice daily. Transfusing 1 unit PRBCs today. Replace potassium magnesium see orders. Agitated. Out of bed to chair yesterday on trach collar currently. 02/21: Acute change in status overnight became acutely short of breath was placed back on the ventilator. Chest x-ray done today a.m. shows diffuse worsening bilateral pulmonary infiltrates pulmonary edema/ARDS. Recent bronch and blood cultures have been negative. Appears to be developing severe sepsis with probable ARDS. Received 60 mg IV Lasix overnight 02/22: Remains on the ventilator tachypneic on CPAP. WBC count has improved but chest x-ray with persistent bilateral infiltrates. I will restart IV Lasix for aggressive diuresis monitoring creatinine. On broad-spectrum antibiotics per ID however cultures are pending at this time. Abdominal x-ray after Gastrografin injection did not show any leakage into the peritoneum. Continue medical management for sepsis closely monitor this pancreatic pseudocyst. PEG tube to be replaced today Objective Vital Signs / I&O: Vital Signs 02/21/18 12:45 02/21/18 13:00 02/21/18 13:15 Temperature Pulse Rate 103 H 94 H 94 H Respiratory Rate 42 H 32 H 35 H Blood Pressure 111/73 106/63 108/65 Pulse Oximetry 99 100 02/21/18 13:30 02/21/18 13:45 02/21/18 14:00 Temperature Pulse Rate 95 H 94 H 92 H Respiratory Rate 37 H 25 H 32 H Blood Pressure 107/67 108/71 107/72 Pulse Oximetry 65 L 96 97 02/21/18 14:15 02/21/18 14:30 02/21/18 14:45 Temperature Pulse Rate 86 84 83 Respiratory Rate 26 H 27 H 26 H Blood Pressure 109/72 112/73 109/74 Pulse Oximetry 95 96 95 02/21/18 15:00 02/21/18 15:15 02/21/18 15:30 Temperature Pulse Rate 80 81 81 Respiratory Rate 28 H 27 H 30 H Blood Pressure 110/71 109/71 105/70 Pulse Oximetry 96 94 L 95 02/21/18 15:47 02/21/18 16:00 02/21/18 16:11 Temperature 98.8 F Pulse Rate 91 H 113 H 100 H Respiratory Rate 34 H 39 H 38 H Blood Pressure 96/67 L 101/59 L 93/72 L Pulse Oximetry 98 99 02/21/18 16:13 02/21/18 16:15 02/21/18 17:00 Temperature Pulse Rate 95 H 75 Respiratory Rate 27 H 28 H 24 Blood Pressure 102/72 Pulse Oximetry 97 92 L 02/21/18 18:00 02/21/18 19:41 02/21/18 20:00 Temperature 98.7 F Pulse Rate 73 71 76 Respiratory Rate 24 25 H Blood Pressure 107/70 Pulse Oximetry 94 L 94 L 02/21/18 20:53 02/21/18 22:00 02/21/18 23:55 Temperature Pulse Rate 68 Respiratory Rate 25 H 32 H Blood Pressure Pulse Oximetry 94 L 02/22/18 00:00 02/22/18 02:00 02/22/18 02:24 Temperature 98.6 F Pulse Rate 81 82 Respiratory Rate 22 25 H Blood Pressure 102/57 L Pulse Oximetry 97 02/22/18 04:00 02/22/18 06:00 02/22/18 07:43 Temperature 98.8 F Pulse Rate 64 72 Respiratory Rate 23 23 Blood Pressure 112/76 Pulse Oximetry 96 99 02/22/18 07:47 02/22/18 11:11 02/22/18 12:26 Temperature Pulse Rate 75 89 Respiratory Rate 26 H 28 H 32 H Blood Pressure Pulse Oximetry 98 Intake & Output 02/21/18 02/22/18 02/22/18 18:59 06:59 18:59 Intake Total 1812 / 1812 1250 / 1250 100 / 100 Output Total 2525 / 2525 800 / 800 Balance -713 / -713 450 / 450 100 / 100 Weight 84 kg Intake: IV 1150 / 1150 1250 / 1250 100 / 100 Precedex Inj 1,000 MCG In NS 250 / 250 250 / 250 Inj 240 ML @ 0.2 MCG/KG/HR 4.27 mls/hr IV.CONT TITRATE PRN Rx# :[id number] Diprivan 1000 mg/100 ml Inj 1, 200 / 200 300 / 300 100 / 100 000 mg In 100 ml @ 5 MCG/KG/MIN 2.604 mls/hr IV.CONT TITRATE PRN Rx#:[id number] Azactam Inj 2 GM In NS Inj 100 100 / 100 200 / 200 ML @ 200 mls/hr IV.SIG Q8H GERMAINE Rx#:[id number] Zyvox 600 mg Premix 300 ML @ 300 / 300 300 / 300 300 mls/hr IV.SIG Q12H GERMAINE Rx#: [id number] Mycamine Inj 150 MG In NS Inj 100 / 100 100 ML @ 100 mls/hr IV.SIG Q24H GERMAINE Rx#:[id number] Flagyl 500 MG Inj 100 ML @ 100 200 / 200 200 / 200 mls/hr IV.SIG Q6H GERMAINE Rx#: [id number] Tube Feeding 382 / 382 Tube Irrigant 180 / 180 Water Bolus Amount 100 / 100 Output: Urine 2525 / 2525 800 / 800 Other: Date of Last Bowel Movement 02/21/18 02/20/18 Result Diagrams: 02/22/18 05:21 02/22/18 05:21 Objective Remarks: GENERAL: 32-year-old male currently on CPAP via tracheostomy 8.0 Shiley, tachypneic respiratory rate 40/mt when CPAP attempted HEENT: NCAT, pupils are equal round react about 3 meals bilaterally. Extraocular muscles are intact. NECK: Trachea midline. Tracheostomy site is clean dry and intact CHEST: Bilateral coarse crackles and rhonchi. PRVC CARDIOVASCULAR: RRR. S1, S2 no S4. Without murmur ABDOMEN: Soft, mild diffuse tenderness on palpation, PEG tube site is clean dry and intact with no bleeding or erythema : Positive scrotal edema MUSCULOSKELETAL: Warm and well perfused, maculopapular rash on thorax, bilateral upper and lower extremities. 1+ bilateral upper and lower extremity peripheral edema NEUROLOGICAL: Follows commands by squeezing bilateral upper and bilateral lower extremities weakly.Talks over trach. Assessment and Plan - Assessment and Plan Plan: Neuro/Psych: Seizure disorder NOS History of EtOH sober 4 -6weeks History of anorexia/bulimia Acute metabolic encephalopathy Currently on dexmedetomidine and propofol drips for vent synchrony Goal of RASS -2 Continue levetiracetam 500 BID (home dose) Quetiapine 300 twice daily. Oxycodone liquid 15 mg every 6 hours Valproic acid 250 milligrams twice daily Patient has a previous history of heavy EtOH abuse and bulimia as per mother-- continue thiamine Continue thiamine 100 mg twice daily Low-dose clonidine 0.1 point milligrams twice daily. Monitor blood pressure closely CV: In-hospital cardiac arrest V. fib arrest Cardiogenic Shock-- resolved Severe LV systolic dysfunction- resolving. Septic shock New onset pulmonary edema cardiogenic versus ARDS Evaluated by Dr. Townsend. No further cardiac workup planned at this time. Echo 01/28: severe LV systolic dysfunction, EF 20-25%. mildly depressed RV function. no valvular lesions. Repeat limited echo due to new onset pulmonary edema- Moderately dilated left ventricle. LV ejection fraction 40%. Echocardiogram 02/14 - the left ventricular systolic function normal with an estimated EF in the range of 60-65%. Normal left ventricular size. Wall thickness is normal. No RWMA Received 60 mg of Lasix placed on 20 mg IV every 8 hours, with potassium supplement started yesterday 02/21/2018 but held due to sepsis Restart diuresis with IV Lasix 20 mg every 12 02/22/2018 Continue daily ASA 325 mg daily. Continued PO thiamine supplementation for ? beriberi Resp: Acute hypoxic respiratory failure- recurrent. Probable ARDS Extensive bilateral infiltrates/pulmonary edema Developed severe pulmonary edema placed back on ventilator 02/[address] of the chest ordered to evaluate infiltrates and effusion-interval worsening of infiltrates and effusion Aggressive diuresis as above Extubated 02/05, reintubated 02/05 for respiratory failure. Status post tracheostomy by Dr. Serna 02/08 Albuterol/ipratropium aerosols every 6 hours with albuterol aerosols every 2 hours as needed for dyspnea Vent bundle, hob elevated. wean fio2 for goal spo2 > 90%. Currently on trach collar 40%. CT pulmonary angiogram revealed right upper limits. No pulmonary embolus. See ID section for antibiotics GI: Dislodged G-tube without peritonitis Pancreatic pseudocyst on CT 02/21 Elevated lipase/mild pancreatitis-- resolved Left hepatic pneumobilia history of chronic pancreatitis C. Difficile Colitis Strict n.p.o. continue IV fluids Gastrografin study did not show any leakage into the peritoneum Displaced G-tube to be replaced by Dr. Horn Discussed extensively on 02/21/[address] Watt and Dr. Horn By tube famotidine for GI prophylaxis due to rash Docusate serum/senna 1 tablet twice daily for bowel regimen Renal/ : Acute kidney injury-- resolved Creatinine peaked around 6, continues to improve, but slowly normalized Nephrology has signed off IV Lasix as above Endo: Sliding scale insulin with Accu-Cheks to maintain euglycemia aspart insulin every 6 hours, Heme: Normocytic anemia Thrombocytosis Monitor CBC daily. Follow trends. No indication for transfusion of blood products at this time Remains on aspirin 325 mg daily Iron studies revealed low FE/TIBC and elevated ferritin. Likely this is reactive thrombocytosis. Currently on aspirin. Appreciate hematology input and recommendations. ID: Severe sepsis C. Difficile Colitis F/u sputum blood and urine culture from 02/21 Dislodged G-tube without evidence of peritonitis Blood cultures on 01/28 and 01/31 showed coagulase negative staph hominis, likely contamination Sputum, UA and influenza all NGTD Continue ABX per ID Continue Zyvox, Micafungin, Aztreonam, IV Flagyl for C. difficile. Continue p.o. vancomycin for C. difficile. s/p zosyn for 7 days to treat pneumonia, d/c on 02/05 02/08 Oliva albicans Bronc samples 02/17 follow-up FEN: Hypomagnesia Hypopotassemia Replace electrolytes as clinically indicated. MSK PT evaluate and treat DERM: Diffuse macular papular rash likely secondary to cefepime resolved Treated with H2 viviana, diphenhydramine and methylprednisolone succinate. Added cefepime to adverse reaction with rash Access: - 01/29 - 02/05 right SC TLC - 02/04 Nance for urinary retention-DC if retention resolved Prophylaxis -GI-famotidine -DVT SCD/ Subcutaneous heparin CCT 35 Patient condition critical with with severe hypoxemic respiratory failure, severe pulmonary edema requiring mechanical ventilatory support. Further workup as above.
--- NOTE | 2018-02-22 16:15 | P.PNGS ---
Subjective Interval history: Resting in bed Physical Exam Vital signs: Vital Signs 02/21/18 16:11 02/21/18 16:13 02/21/18 16:15 Temperature Pulse Rate 100 H 95 H Respiratory Rate 38 H 27 H 28 H Blood Pressure 93/72 L Pulse Oximetry 99 97 02/21/18 17:00 02/21/18 18:00 02/21/18 19:41 Temperature Pulse Rate 75 73 71 Respiratory Rate 24 24 Blood Pressure 102/72 Pulse Oximetry 92 L 94 L 02/21/18 20:00 02/21/18 20:53 02/21/18 22:00 Temperature 98.7 F Pulse Rate 76 68 Respiratory Rate 25 H 25 H Blood Pressure 107/70 Pulse Oximetry 94 L 02/21/18 23:55 02/22/18 00:00 02/22/18 02:00 Temperature 98.6 F Pulse Rate 81 82 Respiratory Rate 32 H 22 Blood Pressure 102/57 L Pulse Oximetry 94 L 97 02/22/18 02:24 02/22/18 04:00 02/22/18 06:00 Temperature 98.8 F Pulse Rate 64 72 Respiratory Rate 25 H 23 Blood Pressure 112/76 Pulse Oximetry 96 02/22/18 07:43 02/22/18 07:47 02/22/18 11:11 Temperature Pulse Rate 75 Respiratory Rate 23 26 H 28 H Blood Pressure Pulse Oximetry 99 98 02/22/18 12:26 02/22/18 15:00 02/22/18 15:39 Temperature Pulse Rate 89 88 Respiratory Rate 32 H 36 H 35 H Blood Pressure Pulse Oximetry 98 Intake & Output 02/21/18 02/22/18 02/22/18 18:59 06:59 18:59 Intake Total 1812 / 1812 1250 / 1250 450 / 450 Output Total 2525 / 2525 800 / 800 Balance -713 / -713 450 / 450 450 / 450 Weight 84 kg Intake: IV 1150 / 1150 1250 / 1250 450 / 450 Precedex Inj 1,000 MCG In NS 250 / 250 250 / 250 250 / 250 Inj 240 ML @ 0.2 MCG/KG/HR 4.27 mls/hr IV.CONT TITRATE PRN Rx# :[id number] Diprivan 1000 mg/100 ml Inj 1, 200 / 200 300 / 300 100 / 100 000 mg In 100 ml @ 5 MCG/KG/MIN 2.604 mls/hr IV.CONT TITRATE PRN Rx#:[id number] Azactam Inj 2 GM In NS Inj 100 100 / 100 200 / 200 ML @ 200 mls/hr IV.SIG Q8H GERMAINE Rx#:[id number] Zyvox 600 mg Premix 300 ML @ 300 / 300 300 / 300 300 mls/hr IV.SIG Q12H GERMAINE Rx#: [id number] Mycamine Inj 150 MG In NS Inj 100 / 100 100 ML @ 100 mls/hr IV.SIG Q24H GERMAINE Rx#:[id number] Flagyl 500 MG Inj 100 ML @ 100 200 / 200 200 / 200 100 / 100 mls/hr IV.SIG Q6H GERMAINE Rx#: [id number] Tube Feeding 382 / 382 Tube Irrigant 180 / 180 Water Bolus Amount 100 / 100 Output: Urine 2525 / 2525 800 / 800 Other: Date of Last Bowel Movement 02/21/18 02/20/18 Narrative: Alert and awake Abd soft - Urinary Catheter Management Coude Cath placed during this visit: yes, but has since been removed by the nurse Reason for continuing: Decision to DC catheter Insertion date: 01/28/18 Insertion time: 13:15 Removal date: 02/03/18 Removal time: 15:15 Straight Cath placed during this visit: yes, but has since been removed by the nurse Reason for continuing: Acute urinary retention Insertion date: 02/12/18 Insertion time: 08:00 Removal date: 02/04/18 Indwelling Urethral Catheter Cath placed during this visit: yes, but has since been removed by the nurse Reason for continuing: Decision to DC catheter Insertion date: 02/12/18 Insertion time: 07:00 Removal date: 02/17/18 Removal time: 15:10 Results - Labs 02/23/18 06:06 02/23/18 06:06 Laboratory Results - last 24 hr 02/21/18 02/21/18 02/21/18 17:04 19:51 23:53 WBC RBC Hgb Hct MCV MCH MCHC RDW Plt Count MPV Sodium Potassium Chloride Carbon Dioxide Anion Gap BUN Creatinine Estimated GFR POC Glucose 156 H 80 129 H Random Glucose Calcium Magnesium Total Bilirubin AST ALT Alkaline Phosphatase Total Protein Albumin 02/22/18 02/22/18 02/22/18 05:21 05:21 09:11 WBC 10.0 D RBC 2.34 L Hgb 7.6 L Hct 22.4 L MCV 95.5 MCH 32.4 MCHC 33.9 RDW 16.1 Plt Count 811 H MPV 6.8 L Sodium 143 Potassium 3.2 L Chloride 107 Carbon Dioxide 27.3 Anion Gap 9 BUN 13 Creatinine 0.76 Estimated GFR Greater than 89 POC Glucose 68 Random Glucose 123 H Calcium 8.2 L Magnesium 1.7 Total Bilirubin 0.3 AST 30 ALT 16 Alkaline Phosphatase 94 Total Protein 5.8 L Albumin 1.7 L 02/22/18 02/22/18 09:29 11:15 WBC RBC Hgb Hct MCV MCH MCHC RDW Plt Count MPV Sodium Potassium Chloride Carbon Dioxide Anion Gap BUN Creatinine Estimated GFR POC Glucose 154 H 118 H Random Glucose Calcium Magnesium Total Bilirubin AST ALT Alkaline Phosphatase Total Protein Albumin - Imaging Imaging: ITS Impressions Gallbladder Ultrasound 01/30/18 00:00 CONCLUSION: 1. Unremarkable study. Abdomen/Bladder Ultrasound 01/30/18 15:17 CONCLUSION: 1. Negative renal sonogram. Head CT 02/06/18 03:50 CONCLUSION: 1. No acute intracranial abnormalities. . Head MRI 02/09/18 00:00 CONCLUSION: 1. Normal MRI of the brain. 2. Sinusitis and mastoiditis. Chest CTA 02/14/18 00:00 CONCLUSION: No evidence of pulmonary embolism. New right upper lobe pneumonia. Improving aeration on the left. Abdomen/Pelvis CT 02/20/18 00:00 CONCLUSION: 1. Interval development of 6 cm smooth margin low density cystic structure about the tail of the pancreas suggesting possible pseudocyst formation. 2. Percutaneous gastrostomy in place. No evidence of free intraperitoneal gas or free fluid. 3. Development of diffuse anasarca. 4. Interval development development of moderate-sized right pleural effusion and multifocal subsegmental areas of infiltrate in the right lower lung and decrease in size of left pleural effusion. Chest CT 02/21/18 00:00 CONCLUSION: 1. G-tube is within the anterior abdominal wall left rectus muscle with a sinus tract extending to the stomach. Findings called to Dr. Allen at the time of dictation. 2. Slight worsening of bilateral patchy airspace consolidation and bilateral effusions since February 20. 3. Tracheostomy in good position. Abdomen X-Ray 02/21/18 17:10 CONCLUSION: No peritoneal leakage identified with Gastrografin injection. Chest X-Ray 02/22/18 06:00 CONCLUSION: No significant interval change. Persistent bilateral diffuse pulmonary parenchymal opacity. Assessment and Plan - Assessment (1) Sepsis Code(s): A41.9 - Sepsis, unspecified organism Status: Acute (2) Complication of feeding tube Code(s): K94.23 - Gastrostomy malfunction Status: Acute Plan: 32 year old male with multiple medical problems; displaced PEG tube -GI to replace PEG tomorrow -Hold feedings -No surgical intervention needed at this time Tube site stable with no drainage; patient hemodynamically stable The exam, history, and the medical decision-making described in the above note were completed with the assistance of the mid-level provider. I reviewed and agree with the findings presented. I attest that I had a [id number] encounter with the patient on the same day, and personally performed and documented my assessment and findings in the medical record. (3) Acute kidney failure Code(s): N17.9 - Acute kidney failure, unspecified Status: Acute
[2018-02-22] MEDS: Micafungin Inj 150 MG in Sodium Chlor 0.9% Inj 100 ML IV.SIG SCH (17:00)
--- NOTE | 2018-02-22 17:17 | P.DIET ---
Nutritional Evaluation Type of nutrition evaluation: follow-up Nutrition consult regarding: Tube Feeding Subjective Subjective Comments: N/V/D prior to admission. Objective - Diagnosis Vomiting - Objective % IBW: 99 (IBW = 166#) Body Weight Used for Calculations: Actual (75 kg) Energy Needs - Lower Range (kCal/kg): 25 Energy Needs - Upper Range (kCal/kg): 30 Lower Limit kCal/kg (kCals): 1,875 Upper Limit kCal/kg (kCals): 2,250 Lower Limit Protein Factor (Grams per Kg): 1.1 Upper Limit Protein Factor (Grams per Kg): 1.3 Lower Protein Needs (Protein): 83 Upper Protein Needs (Protein): 98 Dietitian Reviewed in Medical Record: Curent medications, Intake & Output, Labs , Medical history, Tube feeding Diet Order: NPO Objective Comments: PMH Includes: Alcohol Abuse, Depression, GERD, Hernia, Pancreatitis, seizures, h /o anorexia/bulimia Extubated 02/05; reintubated 02/05 02/09 PEG tube placed C-Diff colitis Random GLucose 123, POC Glucose 68, 154, 118 LBM,02/20, +UOP 3325ml Feeding - Current Tube Feeding Tube Feeding Product: Jevity 1.5 Assessment Assessment: Pt continues at high nutrition risk r/t diagnosis and his need for TFing. TF' ing on hold r/t displaced g-tube; GI plan for PEG tube replacement tomorrow . When TF'ing can be restarted, Rec Jevity 1.5 @ goal rate 60 ml/hr to offer 2160 kcal, 92g protein and 1094 ml of free water. Wt changes noted. Additional Recs r/t Clinical Course. Recommendations: 1. When TF'ing can be restarted, Rec Jevity 1.5 @ goal rate 60 ml/hr 2. Additional Recs r/t Clinical Course Dietitian to Monitor: Lab values, Glucose level, Intake & Output, Tube feeding tolerance, Weight change, Medical course
[2018-02-22] MEDS: Potassium Chlor 20 mEq Premix 20 MEQ/100 ML PIGGYBACK IV.SIG PRN ×3 (17:59→18:52)
[2018-02-23] MEDS: Dextrose 5%/NaCl 0.9% Inj 1,000 ML IV.SIG SCH ×2 (00:46→16:53)
[2018-02-23] MEDS: Insulin NovoLOG Aspart Correctional Sugar Inj SQ SCH ×6 (00:46→19:48)
[2018-02-23] MEDS: Propofol 1000 mg/100 ml Inj 1,000 MG/100 ML BOTTLE IV.CONT PRN ×5 (04:57→21:25)
--- NOTE | 2018-02-23 05:06 | XR ---
EXAM DATE: 02/23/2018 6:00 AM EDT AGE/SEX: 32 years / Male INDICATIONS: Shortness of breath, possible pulmonary disease. CLINICAL DATA: This is the patient's subsequent encounter. Patient reports that signs and symptoms h ave been present for 3 weeks and indicates a pain score of Nonresponsive. MEDICAL/SURGICAL HISTORY: . Alcohol abuse. Depression. Pancreatitis. Seizures None. COMPARISON: [facility] [place] 1V SINGLE AP, 02/22/2018. . FINDINGS: Single AP view the chest. Tracheostomy tube remains in place. No significant interval change in bilat eral diffuse pulmonary parenchymal opacity. Cardiomediastinal silhouette unchanged. No evidence of pl eural effusion or pneumothorax. CONCLUSION: No significant interval change with persistent bilateral diffuse pulmonary opacity. Electronically signed by: Ruddy Coleman MD 02/23/2018 5:05 AM EDT
[2018-02-23] MEDS: Oral Hygiene Kit OROPHARYNG SCH ×4 (05:49→16:43)
[2018-02-23] MEDS: Dexmedetomidine Inj 1,000 MCG in Sodium Chlor 0.9% Inj 240 ML IV.CONT PRN ×3 (06:00→18:32)
[2018-02-23 06:19] LABS: Hematocrit 21.7 % (39.0-51.0); Hemoglobin 7.1 gm/dL (13.0-17.0); Mean Corpuscular HGB Conc 32.9 % (32.0-36.0); Mean Corpuscular Volume 97.3 fL (80.0-100.0); Mean Platelet Volume 6.8 fL (7.0-11.0); Platelet Count 776 th/mm3 (150-450); Red Blood Count 2.23 mil/mm3 (4.50-5.90); Red Cell Distribution Width 16.2 % (11.6-17.2)
[2018-02-23] MEDS: Aztreonam Inj 2 GM in Sodium Chloride 0.9% Inj 100 ML IV.SIG SCH ×3 (06:39→22:51)
[2018-02-23 06:42] LABS: Albumin 1.6 g/dL (3.4-5.0); Anion Gap 9 meq/L (5-15); Aspartate Aminotransferase 25 U/L (15-37); Blood Urea Nitrogen 10 mg/dL (7-18); Calcium 8.2 mg/dL (8.5-10.1); Carbon Dioxide 24.8 meq/L (21.0-32.0); Chloride 110 meq/L (98-107); Glomerular Filtration Rate Greater Than 89 mL/min (>89); Glucose,Random 107 mg/dL (74-106); Magnesium 1.6 mg/dL (1.5-2.5); Potassium 3.7 meq/L (3.5-5.1); Sodium 144 meq/L (136-145)
[2018-02-23 06:43] LABS: Alanine Aminotransferase 15 U/L (12-78)
[2018-02-23 06:46] LABS: Alkaline Phosphatase 92 U/L (45-117); Total Protein 5.7 g/dL (6.4-8.2)
[2018-02-23] MEDS: Chlorhexidine 0.12% Oral Kit 15 ML UDC OROPHARYNG SCH ×2 (08:14→19:50)
--- NOTE | 2018-02-23 09:58 | P.PNCC ---
Subjective Subjective Remarks/Hospital Course: This is a 32-year-old male. Admission 01/28/2018. Past medical history includes seizure disorder/noncompliant with levetiracetam, previous EtOH sober for 4 weeks, anorexia, gastroesophageal reflux disease and chronic pancreatitis. Patient presented to [facility] 01/28/2018 with a two-day history of nausea vomiting and diarrhea. Patient's mother/discussed at bedside stated she had just had a "stomach flu" which she has currently recovered. Mom states that the patient has become fairly dehydrated is been having some cramping of his hands. She is worried that he is getting dehydrated and his potassium might begin low. He was unable to tolerate a banana so she gave him some potassium pills p.o. which she also did not tolerate and threw up. Sober 4 weeks according to mother. Patient was noted to have a low potassium at 2.0. Creatinine of 4.0. This is in line with his previous hospitalizations for acute dehydration. Lipase was slightly elevated. Patient does have a history of seizure disorder which is not compliant with levetiracetam. ED physician was called into room because the RN believed he had a seizure. Patient was unresponsive. Mother states this was not like any seizure that she had seen. Pulses not palpable therefore CPR was initiated. Initial rhythm was V. fib. Patient received amiodarone, lidocaine, epinephrine, bicarbonate, magnesium during the 35 minute code with return of spontaneous circulation after 35 minutes. Pupils are about 9 mils bilaterally and 6. When I saw the patient patient was actively thrashing moving all 4 extremities spontaneously but not to command. Pupils are round 8 mm bilaterally and nonreactive. Brain CT revealed no acute findings. CT thorax revealed a left upper and lower lobe. CT abdomen pelvis pending at time of dictation. Likely, troponin pending. EKG revealed incomplete right bundle block with ST depression in the inferior and lateral leads. Cardiology consulted. They will evaluate after stat echocardiogram and troponins been completed. Potassium will be replaced pending [facility] 01/29: persistently in shock. following commands this AM. trop uptrended overnight and now > 40. on levo @ 10, vasopressin. bedside echo with persistence of his global severe LV systolic dysfunction. IVC dilated without respiratory variation. initially attempted therapeutic hypothermia, but became arrhythmogenic and neurologic exam improved and now following commands, so hypothermia aborted. persistently hypokalemic and hypophosphatemic this AM. in addition, remains with severe metabolic alkalosis. 01/30: Troponin trending down, continues to have severe hypokalemia and metabolic alkalosis. Creatinine continues to trend up, only produced 200 cc of urine over the past 24 hours. 01/31: Patient seen by nephrology yesterday and given bumex, urine output dramatically increased, potassium improved with aggressive repletion, pressors now off and dobutamine at 5. 02/01: No issues overnight. Patient tolerated dobutamine at 2 yesterday, discontinued this morning. Switching propofol to precedex and would like to start SBTs today. Overall improved. 02/02: Tolerated switch to precedex yesterday and was on bipap 05/06 for several hours yesterday afternoon, placed back on AC overnight to avoid respiratory fatigue. 02/03: Patient had no overnight events, tolerated SBT x 5 hours yesterday. Significantly agitated this morning during sedation vacation. 02/04: Patient still struggles with agitation when we lighten sedation. 02/05: Temp 103F this morning, no obvious source of infection. Needs to have PICC line placed today. 02/06: reintubated yesterday. overnight persistently febrile. this morning appears in distress- tachypneic on the ventilator, acidotic. potassium up to 5.8 despite medical management. bedside echo with improving LVEF and completely collapsed IVC. no pericardial effusion. lung ultrasound without effusions. 02/07: Remains sedated, orally intubated on mechanical ventilation. On propofol fentanyl and Versed drips. Transfuse 1 unit PRBCs earlier today for drop in hemoglobin. 02/08: Remains sedated, orally intubated on mechanical ventilation. On propofol fentanyl and Versed drips. Awaiting tracheostomy which is scheduled for later today. 02/09: Overnight, new onset of maculopapular rash noted. Noted discontinuation of cefepime 02/08. Received 1 dose diphenhydramine overnight. 02/10: Afebrile. Discussed with mom at bedside. Follows commands weakly bilateral upper and lower extremities. Diffuse macular papular rash improved lower extremities. Appears stable and upper thorax. On Famotidine, methylprednisolone and diphenhydramine 02/11: Afebrile. Opens eyes to voice. Following commands weakly bilateral upper lower extremity. On propofol 50 roxanne grams per kilogram, a fentanyl drip at 250 mg of midazolam drip at 6 mg an hour due to "agitation" overnight. Will wean. Increased quetiapine to 100 twice daily. 02/12: remains on vent at this time, sedated. Follows commands all extremities weakly. RN states that she increase her sedation as the patient was tachycardic and hypotensive. I will start labetalol 200 mg twice daily and attempt sedation wean. 02/13: T-max 101.5. Remains on fentanyl drip at 250 roxanne grams an hour, midazolam drip at 7 mg an hour and fentanyl drip at 250 roxanne grams an hour. Started labetalol 200 mg twice a yesterday but now hypotensive. Tube feeds currently at 10 cc an hour. 02/14: T-max 100.3. Remains on fentanyl drip at 250 roxanne grams an hour, midazolam drip at 7 mg and fentanyl drip 250 mcg an hour. 2 feedings currently at [address] pulmonary angiogram today per cardiology request. Will discuss some other possible transfer to select hospital today. 02/15: T-max 100.3. Tube feedings currently at [address] pulmonary angiogram revealed right upper lobe infiltrate/new. No pulmonary embolism. Opens eyes to voice. 02/16: T-max 100.7. Arousable to voice and close his eyes. Noted increasing platelets currently 876. Will check iron studies and peripheral smear. Again continued difficulty weaning off IV sedation due to severe agitation. 02/17: Remains febrile. Plan for bronchoscopy right upper lobe infiltrate. Please continue to increase. Tolerating tube feeds at 50 cc an hour. Positive BM. 02/18: T-max 103.2. Currently afebrile. Bronchoscopy yesterday Gram stain negative. Tube feeds at goal. 02/19: T-max 101.4. Currently sitting in chair on trach collar on dexmedetomidine drip at 1.5 mcg/kg/h SUBJECTIVE: 02/20: Last fever at noon yesterday. Currently afebrile. Currently on dexmedetomidine drip at 1.3 mg/kg/h. Increasing quetiapine to 300 mg twice daily. Transfusing 1 unit PRBCs today. Replace potassium magnesium see orders. Agitated. Out of bed to chair yesterday on trach collar currently. 02/21: Acute change in status overnight became acutely short of breath was placed back on the ventilator. Chest x-ray done today a.m. shows diffuse worsening bilateral pulmonary infiltrates pulmonary edema/ARDS. Recent bronch and blood cultures have been negative. Appears to be developing severe sepsis with probable ARDS. Received 60 mg IV Lasix overnight 02/22: Remains on the ventilator tachypneic on CPAP. WBC count has improved but chest x-ray with persistent bilateral infiltrates. I will restart IV Lasix for aggressive diuresis monitoring creatinine. On broad-spectrum antibiotics per ID however cultures are pending at this time. Abdominal x-ray after Gastrografin injection did not show any leakage into the peritoneum. Continue medical management for sepsis closely monitor this pancreatic pseudocyst. PEG tube to be replaced today 02/23: Clinically improving, WBC count normal. Hemoglobin 7.1 will transfuse 1 unit PRBC. GI planning to replace dislodged G-tube today. Clinically sepsis seems to be improving. Chest x-ray shows slight improvement in bilateral infiltrates. I will increase Lasix to 20 mg every 6 hours Objective Vital Signs / I&O: Vital Signs 02/22/18 10:00 02/22/18 11:00 02/22/18 11:11 Temperature Pulse Rate 78 79 Respiratory Rate 26 H 32 H 28 H Blood Pressure 124/79 124/79 Pulse Oximetry 100 98 98 02/22/18 12:00 02/22/18 12:26 02/22/18 13:00 Temperature 98.9 F Pulse Rate 85 89 87 Respiratory Rate 32 H 31 H Blood Pressure 133/75 125/76 Pulse Oximetry 99 97 02/22/18 14:00 02/22/18 15:00 02/22/18 15:39 Temperature Pulse Rate 83 85 Respiratory Rate 33 H 31 H 35 H Blood Pressure 128/82 126/82 Pulse Oximetry 83 L 98 02/22/18 16:00 02/22/18 17:00 02/22/18 18:00 Temperature 97.5 F L Pulse Rate 87 87 83 Respiratory Rate 30 H 28 H 29 H Blood Pressure 120/79 116/77 110/75 Pulse Oximetry 02/22/18 19:00 02/22/18 20:00 02/22/18 20:15 Temperature 99.1 F Pulse Rate 82 71 Respiratory Rate 31 H 29 H 29 H Blood Pressure 117/81 117/80 Pulse Oximetry 92 L 92 L 02/22/18 20:20 02/22/18 21:00 02/22/18 22:00 Temperature Pulse Rate 75 76 79 Respiratory Rate 25 H 30 H 20 Blood Pressure 119/83 119/83 Pulse Oximetry 99 99 02/22/18 22:40 02/22/18 23:00 02/23/18 00:00 Temperature 99.6 F Pulse Rate 71 62 Respiratory Rate 28 H 20 26 H Blood Pressure 113/76 112/70 Pulse Oximetry 100 100 99 02/23/18 01:00 02/23/18 02:00 02/23/18 02:16 Temperature Pulse Rate 61 57 L Respiratory Rate 26 H 27 H 24 Blood Pressure 111/77 112/74 Pulse Oximetry 100 100 99 02/23/18 03:00 02/23/18 03:01 02/23/18 03:58 Temperature Pulse Rate 63 63 58 L Respiratory Rate 28 H 29 H 27 H Blood Pressure 126/80 Pulse Oximetry 02/23/18 04:00 02/23/18 05:00 02/23/18 05:15 Temperature 98.2 F Pulse Rate 58 L 80 Respiratory Rate 27 H 18 28 H Blood Pressure 116/75 118/74 Pulse Oximetry 98 98 99 02/23/18 06:00 02/23/18 06:01 02/23/18 07:00 Temperature Pulse Rate 71 71 61 Respiratory Rate 28 H 28 H 24 Blood Pressure 137/81 122/80 Pulse Oximetry 02/23/18 07:22 02/23/18 08:00 02/23/18 09:00 Temperature 98.8 F Pulse Rate 63 61 Respiratory Rate 24 22 24 Blood Pressure 122/83 122/81 Pulse Oximetry 96 98 02/23/18 09:10 02/23/18 09:27 02/23/18 09:30 Temperature Pulse Rate 73 62 66 Respiratory Rate 23 15 26 H Blood Pressure 131/89 127/85 Pulse Oximetry 91 L 96 Intake & Output 02/22/18 02/23/18 02/23/18 18:59 06:59 18:59 Intake Total 1400 / 1400 2570 / 2570 80 / 80 Output Total 1800 / 1800 1700 / 1700 Balance -400 / -400 870 / 870 80 / 80 Weight 86.4 kg Intake: IV 1400 / 1400 2570 / 2570 80 / 80 Precedex Inj 1,000 MCG In NS 500 / 500 250 / 250 Inj 240 ML @ 0.2 MCG/KG/HR 4.27 mls/hr IV.CONT TITRATE PRN Rx# :[id number] Diprivan 1000 mg/100 ml Inj 1, 200 / 200 120 / 120 80 / 80 000 mg In 100 ml @ 5 MCG/KG/MIN 2.604 mls/hr IV.CONT TITRATE PRN Rx#:[id number] Azactam Inj 2 GM In NS Inj 100 100 / 100 100 / 100 ML @ 200 mls/hr IV.SIG Q8H GERMAINE Rx#:[id number] D5W/Normal Saline Inj 1,000 ML 1200 / 1200 @ 75 mls/hr IV.SIG .[id number] GERMAINE Rx#:[id number] Zyvox 600 mg Premix 300 ML @ 600 / 600 300 mls/hr IV.SIG Q12H GERMAINE Rx#: [id number] Mycamine Inj 150 MG In NS Inj 100 / 100 100 ML @ 100 mls/hr IV.SIG Q24H GERMAINE Rx#:[id number] KCl 20 mEq Premix Inj 20 meq In 300 / 300 100 / 100 100 ml @ 50 mls/hr IV.SIG Q2H PRN Rx#:[id number] Flagyl 500 MG Inj 100 ML @ 100 200 / 200 200 / 200 mls/hr IV.SIG Q6H GERMAINE Rx#: [id number] Output: Urine 1800 / 1800 1700 / 1700 Other: Date of Last Bowel Movement 02/20/18 02/22/18 02/22/18 # Bowel Movements 3 # Incontinent Bowel Movements 2 Result Diagrams: 02/23/18 06:06 02/23/18 06:06 Objective Remarks: GENERAL: 32-year-old male currently on PRVC via tracheostomy 8.0 Shiley HEENT: NCAT, pupils are equal round react about 3 meals bilaterally. Extraocular muscles are intact. NECK: Trachea midline. Tracheostomy site is clean dry and intact CHEST: Bilateral coarse crackles and rhonchi. PRVC CARDIOVASCULAR: RRR. S1, S2 no S4. Without murmur ABDOMEN: Soft, mild tenderness on palpation, PEG tube site is clean dry : Positive scrotal edema MUSCULOSKELETAL: Warm and well perfused, maculopapular rash on thorax, bilateral upper and lower extremities resolving. 1+ bilateral upper and lower extremity peripheral edema NEUROLOGICAL: Follows commands by squeezing bilateral upper and bilateral lower extremities weakly.Talks over trach. Assessment and Plan - Assessment and Plan Plan: Neuro/Psych: Seizure disorder NOS History of EtOH sober 4 -6weeks History of anorexia/bulimia Acute metabolic encephalopathy Currently on dexmedetomidine and propofol drips for vent synchrony. Goal of RASS -2 Start lowering sedation after PEG tube replacement Continue levetiracetam 500 BID (home dose) Quetiapine 300 twice daily. Oxycodone liquid 15 mg every 6 hours. Valproic acid 250 milligrams twice daily Patient has a previous history of heavy EtOH abuse and bulimia as per mother Continue thiamine 100 mg twice daily Low-dose clonidine 0.1 point milligrams twice daily. Monitor blood pressure closely CV: In-hospital cardiac arrest V. fib arrest Cardiogenic Shock-- resolved Severe LV systolic dysfunction- resolving. Septic shock-resolving New onset pulmonary edema cardiogenic versus ARDS Evaluated by Dr. Townsend. No further cardiac workup planned at this time. Echo 01/28: severe LV systolic dysfunction, EF 20-25%. mildly depressed RV function. no valvular lesions. 02/21: Repeat limited echo Moderately dilated left ventricle. LV ejection fraction 40%. Echocardiogram 02/14 - the left ventricular systolic function normal with an estimated EF in the range of 60-65%. Normal left ventricular size. Wall thickness is normal. No RWMA Received 60 mg of Lasix placed on 20 mg IV every 8 hours, with potassium supplement started yesterday 02/21/2018 but held due to sepsis Restart diuresis with IV Lasix 20 mg every 12 02/22/2018, increase to q6h Continue daily ASA 325 mg daily. Continued PO thiamine supplementation for ? beriberi Resp: Acute hypoxic respiratory failure- recurrent. Probable ARDS Extensive bilateral infiltrates/pulmonary edema Developed severe pulmonary edema placed back on ventilator 02/[address] of the chest ordered to evaluate infiltrates and effusion-interval worsening of infiltrates and effusion Aggressive diuresis as above Extubated 02/05, reintubated 02/05 for respiratory failure. Status post tracheostomy by Dr. Serna 02/08 Albuterol/ipratropium aerosols every 6 hours with albuterol aerosols every 2 hours as needed for dyspnea Vent bundle, hob elevated. wean fio2 for goal spo2 > 90%. Currently on trach collar 40%. CT pulmonary angiogram revealed no o pulmonary embolus. See ID section for antibiotics GI: Dislodged G-tube without evidence of peritoneal leak Pancreatic pseudocyst on CT 02/21 Elevated lipase/mild pancreatitis-- resolved Left hepatic pneumobilia history of chronic pancreatitis C. Difficile Colitis Strict n.p.o. continue IV fluids Gastrografin study did not show any leakage into the peritoneum Displaced G-tube to be replaced today by Dr. Horn Discussed extensively on 02/21/[address] Watt and Dr. Horn Docusate serum/senna 1 tablet twice daily for bowel regimen when p.o. permitted Renal/ : Acute kidney injury-- resolved Creatinine peaked around 6, slowly normalized Nephrology has signed off IV Lasix as above Endo: Sliding scale insulin with Accu-Cheks to maintain euglycemia aspart insulin every 6 hours, Heme: Normocytic anemia Thrombocytosis Monitor CBC daily. Follow trends. Transfuse 1 unit of PRBC today 02/23/2018 Restart aspirin when p.o. permitted Iron studies revealed low FE/TIBC and elevated ferritin. Likely this is reactive thrombocytosis. Currently on aspirin. Appreciate hematology input and recommendations. ID: Severe sepsis C. Difficile Colitis F/u sputum blood and urine culture from 02/21-negative to date Dislodged G-tube without evidence of peritonitis Blood cultures on 01/28 and 01/31 showed coagulase negative staph hominis, likely contamination Sputum, UA and influenza all NGTD Continue ABX per ID. Continue Zyvox, Micafungin, Aztreonam, IV Flagyl for C. difficile. Continue p.o. vancomycin for C. difficile. s/p zosyn for 7 days to treat pneumonia, d/c on 02/05 02/08 Oliva albicans Bronc samples 02/17 follow-up FEN: Hypomagnesia Hypopotassemia Replace electrolytes as clinically indicated. MSK PT evaluate and treat DERM: Diffuse macular papular rash likely secondary to cefepime resolved Treated with H2 viviana, diphenhydramine and methylprednisolone succinate. Added cefepime to adverse reaction with rash Access: - 01/29 - 02/05 right SC TLC - 02/04 Nance for urinary retention-DC if retention resolved Prophylaxis -GI-famotidine -DVT SCD/ Subcutaneous heparin Level 3 Patient condition critical with with severe hypoxemic respiratory failure, severe pulmonary edema requiring mechanical ventilatory support. Further workup as above. Code Status: Full
[2018-02-23] MEDS ORDERED: Sodium Chlor 0.9% Inj 250 ML IV.SIG SCH (10:00)
[2018-02-23] MEDS: Heparin - SQ 10,000 UNITS/ML Vial SQ SCH ×2 (10:31→22:03)
[2018-02-23] MEDS: Potassium Chloride 25 MEQ Effervescent Tablet NG/OG SCH ×2 (10:31→22:05)
[2018-02-23] MEDS: Aspirin 325 MG Tablet PO SCH (10:31)
[2018-02-23] MEDS: Famotidine 20 MG Tablet G-TUBE SCH ×2 (10:32→22:04)
[2018-02-23] MEDS: levETIRAcetam 500 MG Tablet NG/OG SCH ×2 (10:32→22:05)
[2018-02-23] MEDS: Magnesium Oxide 400 MG Tablet PO SCH ×2 (10:32→22:05)
[2018-02-23] MEDS: Carboxymethylcellulose 0.5% Opth Drops 15 ML Bottle EACH EYE SCH ×2 (10:33→22:04)
[2018-02-23] MEDS: Senna/Docusate Sodium 8.6/50 MG Tablet PO SCH ×2 (10:33→22:04)
--- NOTE | 2018-02-23 10:45 | MR ---
cc: Carole Sarabia MD, Sinoj K MD DATE: 02/23/2018 PROCEDURE PERFORMED: Esophagogastroduodenoscopy with PEG tube replacement. Patient of Dr. Pamela Allen. PROCEDURE IN DETAIL: After informed consent was obtained from the patient's mother, Mr. Low was sedated with the help of anesthesia. Upper endoscope was advanced from the mouth into the stomach. The previously placed PEG tube bumper was visible through the gastric wall, but it appeared to have been pulled out of the stomach. Under direct vision, a guidewire was advanced into the stomach. This was grabbed with this forceps and pulled through the mouth. Over this guidewire, a new feeding tube was then placed using the same tract into the body of the stomach. Prior to this, the previous feeding tube was removed with traction. Position was verified endoscopically. No photodocumentation was able to be obtained due to a glitch in the system, but the position of the new feeding tube was verified very carefully endoscopically. IMPRESSION: Successful percutaneous endoscopic gastrostomy tube replacement. RECOMMENDATIONS: 1. Resume previous feeding and medicine orders. 2. Monitor for signs of fever, chills, abdominal pain. This has been discussed with the nurse. Carole Sarabia MD HZ/meche , 09:51 AM , 09:57 AM
--- NOTE | 2018-02-23 12:30 | P.PNID ---
Subjective Remarks: Events noted. PEG tube malpositioned and track formed into peritoneum. Patient in no distress. PEG tube reinserted today. WBC is normal. Patient on the vent. Awake and responsive. Culture has no growth. Worsened diffuse bilateral lung infiltrate 02/21. Status post tracheostomy 02/08/2018. This is a 32-year-old white male who presented to the emergency department with 2-day history of nausea, vomiting, and diarrhea. The patient ended up intubated after he went into ventricular fibrillation cardiac arrest and was resuscitated. He also was noted to have seizure activity. Antibiotics: IV Flagyl PO Vanco Micafungin. Aztreonam. Zyvox. Lines: Has peripheral IV Lines ok Past Medical History: PAST MEDICAL HISTORY: Alcohol abuse, gastroesophageal reflux disease, hernia, depression, pancreatitis, seizure disorder, left inguinal hernia repair. Allergies/Adverse Reactions: Allergies Sulfa (Sulfonamide Antibiotics) Allergy (Severe, Verified 10/11/17 07:56) hives cefepime Adverse Reaction (Intermediate, Verified 02/15/18 10:55) Rash, Generalized Objective Vital Signs 02/22/18 12:26 02/22/18 13:00 02/22/18 14:00 Temperature Pulse Rate 89 87 83 Respiratory Rate 32 H 31 H 33 H Blood Pressure 125/76 128/82 Pulse Oximetry 97 83 L 02/22/18 15:00 02/22/18 15:39 02/22/18 16:00 Temperature 97.5 F L Pulse Rate 85 87 Respiratory Rate 31 H 35 H 30 H Blood Pressure 126/82 120/79 Pulse Oximetry 98 02/22/18 17:00 02/22/18 18:00 02/22/18 19:00 Temperature Pulse Rate 87 83 82 Respiratory Rate 28 H 29 H 31 H Blood Pressure 116/77 110/75 117/81 Pulse Oximetry 02/22/18 20:00 02/22/18 20:15 02/22/18 20:20 Temperature 99.1 F Pulse Rate 71 75 Respiratory Rate 29 H 29 H 25 H Blood Pressure 117/80 Pulse Oximetry 92 L 92 L 02/22/18 21:00 02/22/18 22:00 02/22/18 22:40 Temperature Pulse Rate 76 79 Respiratory Rate 30 H 20 28 H Blood Pressure 119/83 119/83 Pulse Oximetry 99 99 100 02/22/18 23:00 02/23/18 00:00 02/23/18 01:00 Temperature 99.6 F Pulse Rate 71 62 61 Respiratory Rate 20 26 H 26 H Blood Pressure 113/76 112/70 111/77 Pulse Oximetry 100 99 100 02/23/18 02:00 02/23/18 02:16 02/23/18 03:00 Temperature Pulse Rate 57 L 63 Respiratory Rate 27 H 24 28 H Blood Pressure 112/74 Pulse Oximetry 100 99 02/23/18 03:01 02/23/18 03:58 02/23/18 04:00 Temperature 98.2 F Pulse Rate 63 58 L 58 L Respiratory Rate 29 H 27 H 27 H Blood Pressure 126/80 116/75 Pulse Oximetry 98 02/23/18 05:00 02/23/18 05:15 02/23/18 06:00 Temperature Pulse Rate 80 71 Respiratory Rate 18 28 H 28 H Blood Pressure 118/74 Pulse Oximetry 98 99 02/23/18 06:01 02/23/18 07:00 02/23/18 07:22 Temperature Pulse Rate 71 61 Respiratory Rate 28 H 24 24 Blood Pressure 137/81 122/80 Pulse Oximetry 96 02/23/18 08:00 02/23/18 09:00 02/23/18 09:10 Temperature 98.8 F Pulse Rate 63 61 73 Respiratory Rate 22 24 23 Blood Pressure 122/83 122/81 Pulse Oximetry 98 02/23/18 09:27 02/23/18 09:30 02/23/18 10:00 Temperature Pulse Rate 62 66 55 L Respiratory Rate 15 26 H Blood Pressure 131/89 127/85 Pulse Oximetry 91 L 96 Intake & Output 02/22/18 02/23/18 02/23/18 18:59 06:59 18:59 Intake Total 1400 / 1400 2570 / 2570 330 / 330 Output Total 1800 / 1800 1700 / 1700 Balance -400 / -400 870 / 870 330 / 330 Weight 86.4 kg Intake: IV 1400 / 1400 2570 / 2570 330 / 330 Precedex Inj 1,000 MCG In NS 500 / 500 250 / 250 250 / 250 Inj 240 ML @ 0.2 MCG/KG/HR 4.27 mls/hr IV.CONT TITRATE PRN Rx# :[id number] Diprivan 1000 mg/100 ml Inj 1, 200 / 200 120 / 120 80 / 80 000 mg In 100 ml @ 5 MCG/KG/MIN 2.604 mls/hr IV.CONT TITRATE PRN Rx#:[id number] Azactam Inj 2 GM In NS Inj 100 100 / 100 100 / 100 ML @ 200 mls/hr IV.SIG Q8H GERMAINE Rx#:[id number] D5W/Normal Saline Inj 1,000 ML 1200 / 1200 @ 75 mls/hr IV.SIG .[id number] GERMAINE Rx#:[id number] Zyvox 600 mg Premix 300 ML @ 600 / 600 300 mls/hr IV.SIG Q12H GERMAINE Rx#: [id number] Mycamine Inj 150 MG In NS Inj 100 / 100 100 ML @ 100 mls/hr IV.SIG Q24H GERMAINE Rx#:[id number] KCl 20 mEq Premix Inj 20 meq In 300 / 300 100 / 100 100 ml @ 50 mls/hr IV.SIG Q2H PRN Rx#:[id number] Flagyl 500 MG Inj 100 ML @ 100 200 / 200 200 / 200 mls/hr IV.SIG Q6H [facility] Rx#: [id number] Output: Urine 1800 / 1800 1700 / 1700 Other: Date of Last Bowel Movement 02/20/18 02/22/18 02/22/18 # Bowel Movements 3 # Incontinent Bowel Movements 2 02/21/18 10:44 Blood - Peripheral Aerobic Blood Culture - Preliminary No growth in 2 days 02/21/18 10:44 Blood - Peripheral Anaerobic Blood Culture - Preliminary No growth in 2 days 02/21/18 10:23 Blood - Peripheral Aerobic Blood Culture - Preliminary No growth in 2 days 02/21/18 10:23 Blood - Peripheral Anaerobic Blood Culture - Preliminary No growth in 2 days 02/21/18 09:30 Sputum - Endotracheal Gram Stain - Final 02/21/18 09:30 Sputum - Endotracheal Sputum Culture - Preliminary Heavy growth normal respiratory pepito at 24 hours 02/17/18 13:20 Bronchial Washings - Right Upper Lobe Fungal Smear - Final No fungal elements seen 02/17/18 13:20 Bronchial Washings - Right Upper Lobe Fungal Culture - Preliminary 02/17/18 13:20 Bronchial Washings - Right Upper Lobe Acid Fast Bacilli Smear - Final No acid fast bacilli seen 02/17/18 13:20 Bronchial Washings - Right Upper Lobe Mycobacterial Culture - Pending Lab - Hematology Results 02/22/18 02/23/18 05:21 06:06 WBC 10.0 D 9.0 RBC 2.34 L 2.23 L Hgb 7.6 L 7.1 L Hct 22.4 L 21.7 L MCV 95.5 97.3 MCH 32.4 32.0 MCHC 33.9 32.9 RDW 16.1 16.2 Plt Count 811 H 776 H MPV 6.8 L 6.8 L Lab - Chemistry Results 02/21/18 02/21/18 02/21/18 06:53 17:04 19:51 Sodium Potassium Chloride Carbon Dioxide Anion Gap BUN Creatinine Estimated GFR POC Glucose 156 H 80 Random Glucose Calcium Magnesium Total Bilirubin AST ALT Alkaline Phosphatase B-Natriuretic Peptide 1645 H Total Protein Albumin 02/21/18 02/22/18 02/22/18 23:53 05:21 09:11 Sodium 143 Potassium 3.2 L Chloride 107 Carbon Dioxide 27.3 Anion Gap 9 BUN 13 Creatinine 0.76 Estimated GFR Greater than 89 POC Glucose 129 H 68 Random Glucose 123 H Calcium 8.2 L Magnesium 1.7 Total Bilirubin 0.3 AST 30 ALT 16 Alkaline Phosphatase 94 B-Natriuretic Peptide Total Protein 5.8 L Albumin 1.7 L 02/22/18 02/22/18 02/22/18 09:29 11:15 16:24 Sodium Potassium Chloride Carbon Dioxide Anion Gap BUN Creatinine Estimated GFR POC Glucose 154 H 118 H 146 H Random Glucose Calcium Magnesium Total Bilirubin AST ALT Alkaline Phosphatase B-Natriuretic Peptide Total Protein Albumin 02/22/18 02/23/18 02/23/18 20:23 00:42 04:21 Sodium Potassium Chloride Carbon Dioxide Anion Gap BUN Creatinine Estimated GFR POC Glucose 125 H 136 H 155 H Random Glucose Calcium Magnesium Total Bilirubin AST ALT Alkaline Phosphatase B-Natriuretic Peptide Total Protein Albumin 02/23/18 02/23/18 02/23/18 06:06 08:10 11:40 Sodium 144 Potassium 3.7 Chloride 110 H Carbon Dioxide 24.8 Anion Gap 9 BUN 10 Creatinine 0.65 Estimated GFR Greater than 89 POC Glucose 120 H 124 H Random Glucose 107 H Calcium 8.2 L Magnesium 1.6 Total Bilirubin 0.3 AST 25 ALT 15 Alkaline Phosphatase 92 B-Natriuretic Peptide Total Protein 5.7 L Albumin 1.6 L Imaging: ITS Impressions Gallbladder Ultrasound 01/30/18 00:00 CONCLUSION: 1. Unremarkable study. Abdomen/Bladder Ultrasound 01/30/18 15:17 CONCLUSION: 1. Negative renal sonogram. Head CT 02/06/18 03:50 CONCLUSION: 1. No acute intracranial abnormalities. . Head MRI 02/09/18 00:00 CONCLUSION: 1. Normal MRI of the brain. 2. Sinusitis and mastoiditis. Chest CTA 02/14/18 00:00 CONCLUSION: No evidence of pulmonary embolism. New right upper lobe pneumonia. Improving aeration on the left. Abdomen/Pelvis CT 02/20/18 00:00 CONCLUSION: 1. Interval development of 6 cm smooth margin low density cystic structure about the tail of the pancreas suggesting possible pseudocyst formation. 2. Percutaneous gastrostomy in place. No evidence of free intraperitoneal gas or free fluid. 3. Development of diffuse anasarca. 4. Interval development development of moderate-sized right pleural effusion and multifocal subsegmental areas of infiltrate in the right lower lung and decrease in size of left pleural effusion. Chest CT 02/21/18 00:00 CONCLUSION: 1. G-tube is within the anterior abdominal wall left rectus muscle with a sinus tract extending to the stomach. Findings called to Dr. Allen at the time of dictation. 2. Slight worsening of bilateral patchy airspace consolidation and bilateral effusions since February 20. 3. Tracheostomy in good position. Abdomen X-Ray 02/21/18 17:10 CONCLUSION: No peritoneal leakage identified with Gastrografin injection. Chest X-Ray 02/23/18 06:00 CONCLUSION: No significant interval change with persistent bilateral diffuse pulmonary opacity. Physical Exam: PHYSICAL EXAMINATION: GENERAL: Awake. No distress. On vent. HEENT: Pupils are equal and reactive. No icterus. NECK: No adenopathy or swelling. LUNGS: Slight basilar rhonchi. HEART: Regular S1 and S2. No murmurs heard. ABDOMEN: Bowel sounds present. Soft. No tenderness appreciated. No mass palpable. EXTREMITIES: No clubbing, cyanosis. edema of the hands. Swelling at RUE is decreased. SKIN: No rash. NEUROLOGIC: Non focal. PSYCHIATRIC: Unable to fully assess. Assessment and Plan - Plan IMPRESSION: 1. Possible sepsis. However cultures have been negative. Previous staph coagulase positive blood culture felt to be contamination. Subsequent cultures negative. No clear source. 2. Skin rash. Likely drug related. Probably cefepime was associated. 3. Pneumonia. Suspect aspiration. 4. Status post cardiac arrest. 5. Acute respiratory failure. Patient now post tracheostomy. 6. Acute renal failure. Improved. 7. Seizure disorder. 8. Diarrhea. Questionable antibiotic associated. 9. Oliva UTI. 10. Leukocytosis improved. 11. C. difficile colitis. I spoke to microbiology regarding the C. difficile PCR test. 12. Fever. ? etiology. Worsened lung infiltrates. may have peritonitis secondary to peg tube migrating into peritoneum. ? aspiration. Temp lower. RECOMMENDATIONS: 1. Stop Zyvox. 2. Stop Micafungin. 3. Continue Aztreonam. 4. Continue intravenous Flagyl for C. difficile. 5. Continue p.o. vancomycin for C. difficile. 6. Monitor cultures. 7. Monitor temp and WBC.
--- NOTE | 2018-02-23 14:15 | P.PNGS ---
Subjective Interval history: Resting in bed Smiling No issues Physical Exam Vital signs: Vital Signs 02/22/18 15:00 02/22/18 15:39 02/22/18 16:00 Temperature 97.5 F L Pulse Rate 85 87 Respiratory Rate 31 H 35 H 30 H Blood Pressure 126/82 120/79 Pulse Oximetry 98 02/22/18 17:00 02/22/18 18:00 02/22/18 19:00 Temperature Pulse Rate 87 83 82 Respiratory Rate 28 H 29 H 31 H Blood Pressure 116/77 110/75 117/81 Pulse Oximetry 02/22/18 20:00 02/22/18 20:15 02/22/18 20:20 Temperature 99.1 F Pulse Rate 71 75 Respiratory Rate 29 H 29 H 25 H Blood Pressure 117/80 Pulse Oximetry 92 L 92 L 02/22/18 21:00 02/22/18 22:00 02/22/18 22:40 Temperature Pulse Rate 76 79 Respiratory Rate 30 H 20 28 H Blood Pressure 119/83 119/83 Pulse Oximetry 99 99 100 02/22/18 23:00 02/23/18 00:00 02/23/18 01:00 Temperature 99.6 F Pulse Rate 71 62 61 Respiratory Rate 20 26 H 26 H Blood Pressure 113/76 112/70 111/77 Pulse Oximetry 100 99 100 02/23/18 02:00 02/23/18 02:16 02/23/18 03:00 Temperature Pulse Rate 57 L 63 Respiratory Rate 27 H 24 28 H Blood Pressure 112/74 Pulse Oximetry 100 99 02/23/18 03:01 02/23/18 03:58 02/23/18 04:00 Temperature 98.2 F Pulse Rate 63 58 L 58 L Respiratory Rate 29 H 27 H 27 H Blood Pressure 126/80 116/75 Pulse Oximetry 98 02/23/18 05:00 02/23/18 05:15 02/23/18 06:00 Temperature Pulse Rate 80 71 Respiratory Rate 18 28 H 28 H Blood Pressure 118/74 Pulse Oximetry 98 99 02/23/18 06:01 02/23/18 07:00 02/23/18 07:22 Temperature Pulse Rate 71 61 Respiratory Rate 28 H 24 24 Blood Pressure 137/81 122/80 Pulse Oximetry 96 02/23/18 08:00 02/23/18 09:00 02/23/18 09:10 Temperature 98.8 F Pulse Rate 63 61 73 Respiratory Rate 22 24 23 Blood Pressure 122/83 122/81 Pulse Oximetry 98 02/23/18 09:27 02/23/18 09:30 02/23/18 10:00 Temperature Pulse Rate 62 66 55 L Respiratory Rate 15 26 H Blood Pressure 131/89 127/85 Pulse Oximetry 91 L 96 02/23/18 12:00 02/23/18 12:27 02/23/18 13:30 Temperature 98.5 F Pulse Rate 57 L 57 L Respiratory Rate 25 H 27 H Blood Pressure Pulse Oximetry 100 100 Intake & Output 02/22/18 02/23/18 02/23/18 18:59 06:59 18:59 Intake Total 1400 / 1400 2570 / 2570 780 / 780 Output Total 1800 / 1800 1700 / 1700 Balance -400 / -400 870 / 870 780 / 780 Weight 86.4 kg Intake: IV 1400 / 1400 2570 / 2570 630 / 630 Precedex Inj 1,000 MCG In NS 500 / 500 250 / 250 250 / 250 Inj 240 ML @ 0.2 MCG/KG/HR 4.27 mls/hr IV.CONT TITRATE PRN Rx# :[id number] Diprivan 1000 mg/100 ml Inj 1, 200 / 200 120 / 120 180 / 180 000 mg In 100 ml @ 5 MCG/KG/MIN 2.604 mls/hr IV.CONT TITRATE PRN Rx#:[id number] Azactam Inj 2 GM In NS Inj 100 100 / 100 100 / 100 100 / 100 ML @ 200 mls/hr IV.SIG Q8H GERMAINE Rx#:[id number] D5W/Normal Saline Inj 1,000 ML 1200 / 1200 @ 75 mls/hr IV.SIG .[id number] GERMAINE Rx#:[id number] Zyvox 600 mg Premix 300 ML @ 600 / 600 300 mls/hr IV.SIG Q12H GERMAINE Rx#: [id number] Mycamine Inj 150 MG In NS Inj 100 / 100 100 ML @ 100 mls/hr IV.SIG Q24H GERMAINE Rx#:[id number] KCl 20 mEq Premix Inj 20 meq In 300 / 300 100 / 100 100 ml @ 50 mls/hr IV.SIG Q2H PRN Rx#:[id number] Flagyl 500 MG Inj 100 ML @ 100 200 / 200 200 / 200 100 / 100 mls/hr IV.SIG Q6H GERMAINE Rx#: [id number] Intake (Blood Product) Amt 150 / 150 Rbc As-3 Leukoreduced Unit 150 / 150 [id number] Output: Urine 1800 / 1800 1700 / 1700 Other: Date of Last Bowel Movement 02/20/18 02/22/18 02/22/18 # Bowel Movements 3 # Incontinent Bowel Movements 2 Narrative: Alert Abd: soft; non tender; new PEG in place - Urinary Catheter Management Coude Cath placed during this visit: yes, but has since been removed by the nurse Reason for continuing: Decision to DC catheter Insertion date: 01/28/18 Insertion time: 13:15 Removal date: 02/03/18 Removal time: 15:15 Straight Cath placed during this visit: yes, but has since been removed by the nurse Reason for continuing: Acute urinary retention Insertion date: 02/12/18 Insertion time: 08:00 Removal date: 02/04/18 Indwelling Urethral Catheter Cath placed during this visit: yes, but has since been removed by the nurse Reason for continuing: Decision to DC catheter Insertion date: 02/12/18 Insertion time: 07:00 Removal date: 02/17/18 Removal time: 15:10 Results - Labs 02/23/18 06:06 02/23/18 06:06 Laboratory Results - last 24 hr 02/20/18 02/22/18 02/22/18 10:15 16:24 20:23 WBC RBC Hgb Hct MCV MCH MCHC RDW Plt Count MPV Sodium Potassium Chloride Carbon Dioxide Anion Gap BUN Creatinine Estimated GFR POC Glucose 146 H 125 H Random Glucose Calcium Magnesium Total Bilirubin AST ALT Alkaline Phosphatase Total Protein Albumin Blood Type Antibody Screen MTS Gel Crossmatch See Detail 02/23/18 02/23/18 02/23/18 00:42 04:21 06:06 WBC 9.0 RBC 2.23 L Hgb 7.1 L Hct 21.7 L MCV 97.3 MCH 32.0 MCHC 32.9 RDW 16.2 Plt Count 776 H MPV 6.8 L Sodium Potassium Chloride Carbon Dioxide Anion Gap BUN Creatinine Estimated GFR POC Glucose 136 H 155 H Random Glucose Calcium Magnesium Total Bilirubin AST ALT Alkaline Phosphatase Total Protein Albumin Blood Type Antibody Screen MTS Gel Crossmatch 02/23/18 02/23/18 02/23/18 06:06 08:10 10:34 WBC RBC Hgb Hct MCV MCH MCHC RDW Plt Count MPV Sodium 144 Potassium 3.7 Chloride 110 H Carbon Dioxide 24.8 Anion Gap 9 BUN 10 Creatinine 0.65 Estimated GFR Greater than 89 POC Glucose 120 H Random Glucose 107 H Calcium 8.2 L Magnesium 1.6 Total Bilirubin 0.3 AST 25 ALT 15 Alkaline Phosphatase 92 Total Protein 5.7 L Albumin 1.6 L Blood Type O Positive Antibody Screen Negative MTS Gel Crossmatch See Detail 02/23/18 11:40 WBC RBC Hgb Hct MCV MCH MCHC RDW Plt Count MPV Sodium Potassium Chloride Carbon Dioxide Anion Gap BUN Creatinine Estimated GFR POC Glucose 124 H Random Glucose Calcium Magnesium Total Bilirubin AST ALT Alkaline Phosphatase Total Protein Albumin Blood Type Antibody Screen MTS Gel Crossmatch - Imaging Imaging: ITS Impressions Gallbladder Ultrasound 01/30/18 00:00 CONCLUSION: 1. Unremarkable study. Abdomen/Bladder Ultrasound 01/30/18 15:17 CONCLUSION: 1. Negative renal sonogram. Head CT 02/06/18 03:50 CONCLUSION: 1. No acute intracranial abnormalities. . Head MRI 02/09/18 00:00 CONCLUSION: 1. Normal MRI of the brain. 2. Sinusitis and mastoiditis. Chest CTA 02/14/18 00:00 CONCLUSION: No evidence of pulmonary embolism. New right upper lobe pneumonia. Improving aeration on the left. Abdomen/Pelvis CT 02/20/18 00:00 CONCLUSION: 1. Interval development of 6 cm smooth margin low density cystic structure about the tail of the pancreas suggesting possible pseudocyst formation. 2. Percutaneous gastrostomy in place. No evidence of free intraperitoneal gas or free fluid. 3. Development of diffuse anasarca. 4. Interval development development of moderate-sized right pleural effusion and multifocal subsegmental areas of infiltrate in the right lower lung and decrease in size of left pleural effusion. Chest CT 02/21/18 00:00 CONCLUSION: 1. G-tube is within the anterior abdominal wall left rectus muscle with a sinus tract extending to the stomach. Findings called to Dr. Allen at the time of dictation. 2. Slight worsening of bilateral patchy airspace consolidation and bilateral effusions since February 20. 3. Tracheostomy in good position. Abdomen X-Ray 02/21/18 17:10 CONCLUSION: No peritoneal leakage identified with Gastrografin injection. Chest X-Ray 02/23/18 06:00 CONCLUSION: No significant interval change with persistent bilateral diffuse pulmonary opacity. Assessment and Plan - Assessment (1) Sepsis Code(s): A41.9 - Sepsis, unspecified organism Status: Acute (2) Complication of feeding tube Code(s): K94.23 - Gastrostomy malfunction Status: Acute Plan: 32 year old male with multiple medical problems; displaced PEG tube -PEG replaced today by GI -GS will sign off PEG tube replaced; will see as needed. The exam, history, and the medical decision-making described in the above note were completed with the assistance of the mid-level provider. I reviewed and agree with the findings presented. I attest that I had a [id number] encounter with the patient on the same day, and personally performed and documented my assessment and findings in the medical record. (3) Acute kidney failure Code(s): N17.9 - Acute kidney failure, unspecified Status: Acute
[2018-02-23] MEDS: Micafungin Inj 150 MG in Sodium Chlor 0.9% Inj 100 ML IV.SIG SCH (16:53)
[2018-02-23 21:26] LABS: Hematocrit 25.8 % (39.0-51.0); Hemoglobin 8.7 gm/dL (13.0-17.0)
[2018-02-24] MEDS: Propofol 1000 mg/100 ml Inj 1,000 MG/100 ML BOTTLE IV.CONT PRN ×6 (00:33→20:15)
[2018-02-24] MEDS: Insulin NovoLOG Aspart Correctional Sugar Inj SQ SCH ×6 (00:33→21:29)
[2018-02-24] MEDS: Oral Hygiene Kit OROPHARYNG SCH ×4 (00:34→16:09)
[2018-02-24] MEDS: Dexmedetomidine Inj 1,000 MCG in Sodium Chlor 0.9% Inj 240 ML IV.CONT PRN ×3 (03:09→21:31)
[2018-02-24] MEDS: Dextrose 5%/NaCl 0.9% Inj 1,000 ML IV.SIG SCH ×2 (04:07→16:09)
[2018-02-24] MEDS: Aztreonam Inj 2 GM in Sodium Chloride 0.9% Inj 100 ML IV.SIG SCH ×3 (06:32→22:46)
[2018-02-24] MEDS: Chlorhexidine 0.12% Oral Kit 15 ML UDC OROPHARYNG SCH ×2 (08:58→20:54)
[2018-02-24] MEDS: Aspirin 325 MG Tablet PO SCH (08:59)
[2018-02-24] MEDS: Heparin - SQ 10,000 UNITS/ML Vial SQ SCH ×2 (09:00→20:54)
[2018-02-24] MEDS: Magnesium Oxide 400 MG Tablet PO SCH ×2 (09:01→20:27)
[2018-02-24] MEDS: levETIRAcetam 500 MG Tablet NG/OG SCH ×2 (09:01→20:28)
[2018-02-24] MEDS: Potassium Chloride 25 MEQ Effervescent Tablet NG/OG SCH ×2 (09:01→20:28)
[2018-02-24] MEDS: Senna/Docusate Sodium 8.6/50 MG Tablet PO SCH ×2 (09:02→20:28)
[2018-02-24] MEDS: Carboxymethylcellulose 0.5% Opth Drops 15 ML Bottle EACH EYE SCH ×2 (09:02→20:55)
[2018-02-24] MEDS: Famotidine 20 MG Tablet G-TUBE SCH ×2 (09:02→20:28)
--- NOTE | 2018-02-24 10:50 | P.PNGI ---
Subjective Interval history: Pt resting in bed, on sedation but awake. Some minimal pain around PEG site with palpation. Small amount of purulent drainage. Gauze covering site is clean and dry. <Jennifer Carl - Last Filed: 02/24/18 10:47> Physical Exam Vital signs: Vital Signs 02/23/18 12:00 02/23/18 12:27 02/23/18 13:30 Temperature 98.5 F Pulse Rate 57 L 57 L Respiratory Rate 22 25 H 27 H Blood Pressure Pulse Oximetry 100 100 02/23/18 14:00 02/23/18 15:06 02/23/18 15:09 Temperature Pulse Rate 57 L 61 56 L Respiratory Rate 26 H 25 H Blood Pressure 111/78 116/79 Pulse Oximetry 75 L 99 02/23/18 15:12 02/23/18 15:15 02/23/18 15:18 Temperature Pulse Rate 58 L 59 L 58 L Respiratory Rate 28 H 26 H 26 H Blood Pressure 113/79 113/76 113/77 Pulse Oximetry 95 94 L 94 L 02/23/18 15:21 02/23/18 15:24 02/23/18 15:27 Temperature Pulse Rate 58 L 57 L 58 L Respiratory Rate 26 H 26 H 25 H Blood Pressure 116/76 113/74 117/75 Pulse Oximetry 94 L 94 L 94 L 02/23/18 15:30 02/23/18 15:33 02/23/18 15:36 Temperature Pulse Rate 57 L 56 L 57 L Respiratory Rate 25 H 26 H 25 H Blood Pressure 116/74 114/75 117/76 Pulse Oximetry 94 L 94 L 94 L 02/23/18 15:39 02/23/18 15:42 02/23/18 15:45 Temperature Pulse Rate 57 L 56 L 57 L Respiratory Rate 22 24 23 Blood Pressure 114/78 117/79 118/78 Pulse Oximetry 94 L 93 L 95 02/23/18 15:48 02/23/18 15:51 02/23/18 15:54 Temperature Pulse Rate 56 L 55 L 55 L Respiratory Rate 25 H 22 24 Blood Pressure 118/78 118/79 117/82 Pulse Oximetry 94 L 94 L 94 L 02/23/18 15:57 02/23/18 15:59 02/23/18 16:00 Temperature 98.1 F Pulse Rate 60 59 L 60 Respiratory Rate 23 22 22 Blood Pressure 120/82 119/81 Pulse Oximetry 95 95 95 02/23/18 16:03 02/23/18 16:06 02/23/18 16:09 Temperature Pulse Rate 58 L 58 L 59 L Respiratory Rate 25 H 24 25 H Blood Pressure 118/81 117/80 118/78 Pulse Oximetry 94 L 94 L 94 L 02/23/18 16:12 02/23/18 16:15 02/23/18 16:18 Temperature 98.2 F Pulse Rate 59 L 74 57 L Respiratory Rate 26 H 21 26 H Blood Pressure 117/77 116/74 118/70 Pulse Oximetry 94 L 88 L 100 02/23/18 18:00 02/23/18 20:00 02/23/18 20:43 Temperature 98.8 F Pulse Rate 66 79 Respiratory Rate 25 H 34 H Blood Pressure Pulse Oximetry 99 02/23/18 20:50 02/23/18 21:21 02/23/18 21:24 Temperature Pulse Rate 80 68 68 Respiratory Rate 32 H 14 0 L Blood Pressure 118/70 119/74 Pulse Oximetry 100 100 02/23/18 21:27 02/23/18 21:30 02/23/18 21:33 Temperature Pulse Rate 78 83 76 Respiratory Rate 15 22 10 L Blood Pressure 119/76 111/71 116/74 Pulse Oximetry 100 99 94 L 02/23/18 21:36 02/23/18 21:39 02/23/18 21:42 Temperature Pulse Rate 68 76 68 Respiratory Rate 8 L 14 3 L Blood Pressure 114/72 111/72 115/71 Pulse Oximetry 95 95 95 02/23/18 21:45 02/23/18 21:52 02/23/18 21:54 Temperature Pulse Rate 67 76 67 Respiratory Rate 0 L 14 7 L Blood Pressure 118/71 117/80 117/76 Pulse Oximetry 94 L 94 L 93 L 02/23/18 21:57 02/23/18 22:00 02/23/18 22:03 Temperature Pulse Rate 70 77 73 Respiratory Rate 10 L 10 L 4 L Blood Pressure 116/78 111/71 115/73 Pulse Oximetry 92 L 93 L 93 L 02/23/18 22:06 02/23/18 22:09 02/23/18 22:12 Temperature Pulse Rate 81 78 75 Respiratory Rate 25 H 10 L 7 L Blood Pressure 110/72 115/71 116/70 Pulse Oximetry 93 L 91 L 95 02/23/18 22:15 02/23/18 22:19 02/23/18 22:22 Temperature Pulse Rate 74 84 87 Respiratory Rate 0 L 24 23 Blood Pressure 116/68 111/56 L 112/57 L Pulse Oximetry 92 L 95 94 L 02/23/18 22:26 02/23/18 22:27 02/23/18 22:30 Temperature Pulse Rate 81 81 82 Respiratory Rate 27 H 20 14 Blood Pressure 132/62 120/73 113/68 Pulse Oximetry 91 L 94 L 02/23/18 22:33 02/23/18 22:36 02/23/18 23:39 Temperature Pulse Rate 78 80 Respiratory Rate 18 25 H 28 H Blood Pressure 114/70 114/67 Pulse Oximetry 96 02/23/18 23:42 02/23/18 23:45 02/23/18 23:48 Temperature Pulse Rate 72 68 Respiratory Rate 15 12 Blood Pressure 114/80 119/82 116/80 Pulse Oximetry 93 L 87 L 02/23/18 23:51 02/23/18 23:54 02/23/18 23:57 Temperature Pulse Rate 68 71 76 Respiratory Rate 15 23 24 Blood Pressure 115/77 115/75 117/79 Pulse Oximetry 86 L 90 L 95 02/24/18 00:00 02/24/18 00:03 02/24/18 00:06 Temperature 98.6 F Pulse Rate 70 76 67 Respiratory Rate 23 26 H 22 Blood Pressure 114/77 116/77 116/77 Pulse Oximetry 90 L 90 L 90 L 02/24/18 00:09 02/24/18 00:12 02/24/18 00:15 Temperature Pulse Rate 73 69 69 Respiratory Rate 20 23 22 Blood Pressure 117/75 116/72 117/76 Pulse Oximetry 93 L 90 L 90 L 02/24/18 00:18 02/24/18 00:21 02/24/18 00:24 Temperature Pulse Rate 74 69 71 Respiratory Rate 23 23 21 Blood Pressure 118/78 119/76 116/74 Pulse Oximetry 90 L 87 L 89 L 02/24/18 00:27 02/24/18 00:30 02/24/18 00:33 Temperature Pulse Rate 76 67 64 Respiratory Rate 13 21 21 Blood Pressure 118/77 120/81 120/78 Pulse Oximetry 83 L 86 L 85 L 02/24/18 00:36 02/24/18 00:39 02/24/18 00:45 Temperature Pulse Rate 66 68 65 Respiratory Rate 21 23 16 Blood Pressure 121/82 125/81 120/78 Pulse Oximetry 88 L 88 L 81 L 02/24/18 00:48 02/24/18 00:51 02/24/18 00:54 Temperature Pulse Rate 76 66 71 Respiratory Rate 17 22 19 Blood Pressure 114/78 119/81 122/83 Pulse Oximetry 87 L 85 L 99 02/24/18 00:57 02/24/18 01:00 02/24/18 02:00 Temperature Pulse Rate 69 66 75 Respiratory Rate 25 H 24 Blood Pressure 120/81 Pulse Oximetry 92 L 93 L 02/24/18 02:48 02/24/18 02:51 02/24/18 02:54 Temperature Pulse Rate 71 74 74 Respiratory Rate 23 21 27 H Blood Pressure 114/70 116/71 117/75 Pulse Oximetry 02/24/18 02:57 02/24/18 03:00 02/24/18 03:03 Temperature Pulse Rate 79 70 76 Respiratory Rate 27 H 19 19 Blood Pressure 118/74 119/76 121/76 Pulse Oximetry 97 97 02/24/18 03:06 02/24/18 03:10 02/24/18 03:12 Temperature Pulse Rate 70 72 68 Respiratory Rate 18 20 15 Blood Pressure 122/77 110/88 116/90 Pulse Oximetry 97 97 97 02/24/18 03:15 02/24/18 03:18 02/24/18 03:21 Temperature Pulse Rate 70 70 67 Respiratory Rate 11 L 16 14 Blood Pressure 121/88 122/86 125/85 Pulse Oximetry 98 98 98 02/24/18 03:24 02/24/18 03:27 02/24/18 03:30 Temperature Pulse Rate 71 68 67 Respiratory Rate 15 19 15 Blood Pressure 121/83 122/79 121/80 Pulse Oximetry 98 97 97 02/24/18 03:33 02/24/18 03:36 02/24/18 03:39 Temperature Pulse Rate 68 75 82 Respiratory Rate 15 20 22 Blood Pressure 121/78 122/78 118/71 Pulse Oximetry 96 99 98 02/24/18 03:42 02/24/18 03:45 02/24/18 03:48 Temperature Pulse Rate 70 70 73 Respiratory Rate 23 24 24 Blood Pressure 122/82 124/83 124/80 Pulse Oximetry 97 98 99 02/24/18 03:51 02/24/18 03:54 02/24/18 03:57 Temperature Pulse Rate 68 72 69 Respiratory Rate 8 L 22 21 Blood Pressure 128/83 123/86 121/81 Pulse Oximetry 97 97 97 02/24/18 03:58 02/24/18 04:00 02/24/18 04:07 Temperature 98.8 F Pulse Rate 82 69 Respiratory Rate 25 H 25 H 24 Blood Pressure 123/88 Pulse Oximetry 98 98 02/24/18 06:00 02/24/18 07:34 02/24/18 09:05 Temperature Pulse Rate 85 95 H Respiratory Rate 31 H 29 H Blood Pressure Pulse Oximetry 96 Intake & Output 02/23/18 02/24/18 02/24/18 18:59 06:59 18:59 Intake Total 3384 / 3384 2538 / 2538 100 / 100 Output Total 4025 / 4025 3650 / 3650 Balance -641 / -641 -1112 / -1112 100 / 100 Weight 54 kg Intake: IV 2380 / 2380 2100 / 2100 100 / 100 Precedex Inj 1,000 MCG In NS 500 / 500 250 / 250 Inj 240 ML @ 0.2 MCG/KG/HR 4.27 mls/hr IV.CONT TITRATE PRN Rx# :[id number] Diprivan 1000 mg/100 ml Inj 1, 280 / 280 300 / 300 100 / 100 000 mg In 100 ml @ 5 MCG/KG/MIN 2.604 mls/hr IV.CONT TITRATE PRN Rx#:[id number] Azactam Inj 2 GM In NS Inj 100 200 / 200 100 / 100 ML @ 200 mls/hr IV.SIG Q8H GERMAINE Rx#:[id number] D5W/Normal Saline Inj 1,000 ML 800 / 800 950 / 950 @ 75 mls/hr IV.SIG .[id number] GERMAINE Rx#:[id number] Zyvox 600 mg Premix 300 ML @ 300 / 300 300 / 300 300 mls/hr IV.SIG Q12H GERMAINE Rx#: [id number] Mycamine Inj 150 MG In NS Inj 100 / 100 100 ML @ 100 mls/hr IV.SIG Q24H GERMAINE Rx#:[id number] Flagyl 500 MG Inj 100 ML @ 100 200 / 200 200 / 200 mls/hr IV.SIG Q6H GERMAINE Rx#: [id number] Tube Feeding 204 / 204 238 / 238 Tube Irrigant 60 / 60 Water Bolus Amount 100 / 100 Other 400 / 400 40 / 40 Rbc As-3 Leukoreduced Unit 400 / 400 [id number] Intake (Blood Product) Amt 400 / 400 Rbc As-3 Leukoreduced Unit 400 / 400 [id number] Output: Urine 4025 / 4025 3650 / 3650 Other: Other Intake Source Saline Solution Date of Last Bowel Movement 02/22/18 02/22/18 - Constitutional no acute distress - Routine HEENT Exam Head: Present: normocephalic, atraumatic - Routine Respiratory Exam Absent: accessory muscle use - Routine Abdominal Exam Present: soft, normoactive bowel sounds, tenderness (mild tenderness to PEG site ). Absent: distended Comments: PEG clamped - Routine Skin Exam Present: dry, warm - Routine Neurological Exam Present: alert - Urinary Catheter Management Coude Cath placed during this visit: yes, but has since been removed by the nurse Reason for continuing: Decision to DC catheter Insertion date: 01/28/18 Insertion time: 13:15 Removal date: 02/03/18 Removal time: 15:15 Straight Cath placed during this visit: yes, but has since been removed by the nurse Reason for continuing: Acute urinary retention Insertion date: 02/12/18 Insertion time: 08:00 Removal date: 02/04/18 Indwelling Urethral Catheter Cath placed during this visit: yes, but has since been removed by the nurse Reason for continuing: Decision to DC catheter Insertion date: 02/12/18 Insertion time: 07:00 Removal date: 02/17/18 Removal time: 15:10 <Jennifer Carl - Last Filed: 02/24/18 10:47> Vital signs: Vital Signs 02/23/18 12:27 02/23/18 13:30 02/23/18 14:00 Temperature 98.5 F Pulse Rate 57 L 57 L Respiratory Rate 25 H 27 H Blood Pressure Pulse Oximetry 100 100 02/23/18 15:06 02/23/18 15:09 02/23/18 15:12 Temperature Pulse Rate 61 56 L 58 L Respiratory Rate 26 H 25 H 28 H Blood Pressure 111/78 116/79 113/79 Pulse Oximetry 75 L 99 95 02/23/18 15:15 02/23/18 15:18 02/23/18 15:21 Temperature Pulse Rate 59 L 58 L 58 L Respiratory Rate 26 H 26 H 26 H Blood Pressure 113/76 113/77 116/76 Pulse Oximetry 94 L 94 L 94 L 02/23/18 15:24 02/23/18 15:27 02/23/18 15:30 Temperature Pulse Rate 57 L 58 L 57 L Respiratory Rate 26 H 25 H 25 H Blood Pressure 113/74 117/75 116/74 Pulse Oximetry 94 L 94 L 94 L 02/23/18 15:33 02/23/18 15:36 02/23/18 15:39 Temperature Pulse Rate 56 L 57 L 57 L Respiratory Rate 26 H 25 H 22 Blood Pressure 114/75 117/76 114/78 Pulse Oximetry 94 L 94 L 94 L 02/23/18 15:42 02/23/18 15:45 02/23/18 15:48 Temperature Pulse Rate 56 L 57 L 56 L Respiratory Rate 24 23 25 H Blood Pressure 117/79 118/78 118/78 Pulse Oximetry 93 L 95 94 L 02/23/18 15:51 02/23/18 15:54 02/23/18 15:57 Temperature Pulse Rate 55 L 55 L 60 Respiratory Rate 22 24 23 Blood Pressure 118/79 117/82 120/82 Pulse Oximetry 94 L 94 L 95 02/23/18 15:59 02/23/18 16:00 02/23/18 16:03 Temperature 98.1 F Pulse Rate 59 L 60 58 L Respiratory Rate 22 22 25 H Blood Pressure 119/81 118/81 Pulse Oximetry 95 95 94 L 02/23/18 16:06 02/23/18 16:09 02/23/18 16:12 Temperature Pulse Rate 58 L 59 L 59 L Respiratory Rate 24 25 H 26 H Blood Pressure 117/80 118/78 117/77 Pulse Oximetry 94 L 94 L 94 L 02/23/18 16:15 02/23/18 16:18 02/23/18 18:00 Temperature 98.2 F Pulse Rate 74 57 L 66 Respiratory Rate 21 26 H Blood Pressure 116/74 118/70 Pulse Oximetry 88 L 100 02/23/18 20:00 02/23/18 20:43 02/23/18 20:50 Temperature 98.8 F Pulse Rate 79 80 Respiratory Rate 25 H 34 H 32 H Blood Pressure Pulse Oximetry 99 02/23/18 21:21 02/23/18 21:24 02/23/18 21:27 Temperature Pulse Rate 68 68 78 Respiratory Rate 14 0 L 15 Blood Pressure 118/70 119/74 119/76 Pulse Oximetry 100 100 100 02/23/18 21:30 02/23/18 21:33 02/23/18 21:36 Temperature Pulse Rate 83 76 68 Respiratory Rate 22 10 L 8 L Blood Pressure 111/71 116/74 114/72 Pulse Oximetry 99 94 L 95 02/23/18 21:39 02/23/18 21:42 02/23/18 21:45 Temperature Pulse Rate 76 68 67 Respiratory Rate 14 3 L 0 L Blood Pressure 111/72 115/71 118/71 Pulse Oximetry 95 95 94 L 02/23/18 21:52 02/23/18 21:54 02/23/18 21:57 Temperature Pulse Rate 76 67 70 Respiratory Rate 14 7 L 10 L Blood Pressure 117/80 117/76 116/78 Pulse Oximetry 94 L 93 L 92 L 02/23/18 22:00 02/23/18 22:03 02/23/18 22:06 Temperature Pulse Rate 77 73 81 Respiratory Rate 10 L 4 L 25 H Blood Pressure 111/71 115/73 110/72 Pulse Oximetry 93 L 93 L 93 L 02/23/18 22:09 02/23/18 22:12 02/23/18 22:15 Temperature Pulse Rate 78 75 74 Respiratory Rate 10 L 7 L 0 L Blood Pressure 115/71 116/70 116/68 Pulse Oximetry 91 L 95 92 L 02/23/18 22:19 02/23/18 22:22 02/23/18 22:26 Temperature Pulse Rate 84 87 81 Respiratory Rate 24 23 27 H Blood Pressure 111/56 L 112/57 L 132/62 Pulse Oximetry 95 94 L 91 L 02/23/18 22:27 02/23/18 22:30 02/23/18 22:33 Temperature Pulse Rate 81 82 78 Respiratory Rate 20 14 18 Blood Pressure 120/73 113/68 114/70 Pulse Oximetry 94 L 02/23/18 22:36 02/23/18 23:39 02/23/18 23:42 Temperature Pulse Rate 80 Respiratory Rate 25 H 28 H Blood Pressure 114/67 114/80 Pulse Oximetry 96 02/23/18 23:45 02/23/18 23:48 02/23/18 23:51 Temperature Pulse Rate 72 68 68 Respiratory Rate 15 12 15 Blood Pressure 119/82 116/80 115/77 Pulse Oximetry 93 L 87 L 86 L 02/23/18 23:54 02/23/18 23:57 02/24/18 00:00 Temperature 98.6 F Pulse Rate 71 76 70 Respiratory Rate 23 24 23 Blood Pressure 115/75 117/79 114/77 Pulse Oximetry 90 L 95 90 L 02/24/18 00:03 02/24/18 00:06 02/24/18 00:09 Temperature Pulse Rate 76 67 73 Respiratory Rate 26 H 22 20 Blood Pressure 116/77 116/77 117/75 Pulse Oximetry 90 L 90 L 93 L 02/24/18 00:12 02/24/18 00:15 02/24/18 00:18 Temperature Pulse Rate 69 69 74 Respiratory Rate 23 22 23 Blood Pressure 116/72 117/76 118/78 Pulse Oximetry 90 L 90 L 90 L 02/24/18 00:21 02/24/18 00:24 02/24/18 00:27 Temperature Pulse Rate 69 71 76 Respiratory Rate 23 21 13 Blood Pressure 119/76 116/74 118/77 Pulse Oximetry 87 L 89 L 83 L 02/24/18 00:30 02/24/18 00:33 02/24/18 00:36 Temperature Pulse Rate 67 64 66 Respiratory Rate 21 21 21 Blood Pressure 120/81 120/78 121/82 Pulse Oximetry 86 L 85 L 88 L 02/24/18 00:39 02/24/18 00:45 02/24/18 00:48 Temperature Pulse Rate 68 65 76 Respiratory Rate 23 16 17 Blood Pressure 125/81 120/78 114/78 Pulse Oximetry 88 L 81 L 87 L 02/24/18 00:51 02/24/18 00:54 02/24/18 00:57 Temperature Pulse Rate 66 71 69 Respiratory Rate 22 19 25 H Blood Pressure 119/81 122/83 120/81 Pulse Oximetry 85 L 99 92 L 02/24/18 01:00 02/24/18 02:00 02/24/18 02:48 Temperature Pulse Rate 66 75 71 Respiratory Rate 24 23 Blood Pressure 114/70 Pulse Oximetry 93 L 02/24/18 02:51 02/24/18 02:54 02/24/18 02:57 Temperature Pulse Rate 74 74 79 Respiratory Rate 21 27 H 27 H Blood Pressure 116/71 117/75 118/74 Pulse Oximetry 02/24/18 03:00 02/24/18 03:03 02/24/18 03:06 Temperature Pulse Rate 70 76 70 Respiratory Rate 19 19 18 Blood Pressure 119/76 121/76 122/77 Pulse Oximetry 97 97 97 02/24/18 03:10 02/24/18 03:12 02/24/18 03:15 Temperature Pulse Rate 72 68 70 Respiratory Rate 20 15 11 L Blood Pressure 110/88 116/90 121/88 Pulse Oximetry 97 97 98 02/24/18 03:18 02/24/18 03:21 02/24/18 03:24 Temperature Pulse Rate 70 67 71 Respiratory Rate 16 14 15 Blood Pressure 122/86 125/85 121/83 Pulse Oximetry 98 98 98 02/24/18 03:27 02/24/18 03:30 02/24/18 03:33 Temperature Pulse Rate 68 67 68 Respiratory Rate 19 15 15 Blood Pressure 122/79 121/80 121/78 Pulse Oximetry 97 97 96 02/24/18 03:36 02/24/18 03:39 02/24/18 03:42 Temperature Pulse Rate 75 82 70 Respiratory Rate 20 22 23 Blood Pressure 122/78 118/71 122/82 Pulse Oximetry 99 98 97 02/24/18 03:45 02/24/18 03:48 02/24/18 03:51 Temperature Pulse Rate 70 73 68 Respiratory Rate 24 24 8 L Blood Pressure 124/83 124/80 128/83 Pulse Oximetry 98 99 97 02/24/18 03:54 02/24/18 03:57 02/24/18 03:58 Temperature Pulse Rate 72 69 Respiratory Rate 22 21 25 H Blood Pressure 123/86 121/81 Pulse Oximetry 97 97 98 02/24/18 04:00 02/24/18 04:03 02/24/18 04:06 Temperature 98.8 F Pulse Rate 82 70 72 Respiratory Rate 25 H 32 H 25 H Blood Pressure 123/88 121/81 126/82 Pulse Oximetry 98 100 99 02/24/18 04:07 02/24/18 04:09 02/24/18 04:12 Temperature Pulse Rate 69 76 78 Respiratory Rate 24 28 H 23 Blood Pressure 123/80 117/85 Pulse Oximetry 98 99 02/24/18 04:15 02/24/18 04:18 02/24/18 04:21 Temperature Pulse Rate 82 83 91 H Respiratory Rate 27 H 14 25 H Blood Pressure 116/79 120/81 118/81 Pulse Oximetry 98 98 96 02/24/18 04:24 02/24/18 04:27 02/24/18 04:30 Temperature Pulse Rate 88 91 H 90 Respiratory Rate 36 H 30 H 31 H Blood Pressure 123/75 120/77 127/76 Pulse Oximetry 89 L 93 L 94 L 02/24/18 04:33 02/24/18 04:36 02/24/18 04:41 Temperature Pulse Rate 90 96 H 82 Respiratory Rate 24 31 H 22 Blood Pressure 126/74 139/99 H 140/91 H Pulse Oximetry 96 95 89 L 02/24/18 05:00 02/24/18 06:00 02/24/18 07:00 Temperature Pulse Rate 84 85 83 Respiratory Rate 22 16 17 Blood Pressure Pulse Oximetry 85 L 95 95 02/24/18 07:34 02/24/18 08:00 02/24/18 08:04 Temperature 100.7 F H Pulse Rate 78 87 Respiratory Rate 31 H 22 32 H Blood Pressure 145/107 H 145/107 H Pulse Oximetry 96 95 98 02/24/18 09:00 02/24/18 09:05 02/24/18 10:00 Temperature Pulse Rate 93 H 95 H 97 H Respiratory Rate 36 H 29 H 23 Blood Pressure 171/83 H 125/60 Pulse Oximetry 94 L 02/24/18 11:00 02/24/18 11:30 Temperature Pulse Rate 81 Respiratory Rate 17 24 Blood Pressure 123/70 Pulse Oximetry 97 96 Intake & Output 02/23/18 02/24/18 02/24/18 18:59 06:59 18:59 Intake Total 3384 / 3384 2538 / 2538 650 / 650 Output Total 4025 / 4025 3650 / 3650 Balance -641 / -641 -1112 / -1112 650 / 650 Weight 54 kg Intake: IV 2380 / 2380 2100 / 2100 650 / 650 Precedex Inj 1,000 MCG In NS 500 / 500 250 / 250 250 / 250 Inj 240 ML @ 0.2 MCG/KG/HR 4.27 mls/hr IV.CONT TITRATE PRN Rx# :[id number] Diprivan 1000 mg/100 ml Inj 1, 280 / 280 300 / 300 200 / 200 000 mg In 100 ml @ 5 MCG/KG/MIN 2.604 mls/hr IV.CONT TITRATE PRN Rx#:[id number] Azactam Inj 2 GM In NS Inj 100 200 / 200 100 / 100 100 / 100 ML @ 200 mls/hr IV.SIG Q8H GERMAINE Rx#:[id number] D5W/Normal Saline Inj 1,000 ML 800 / 800 950 / 950 @ 75 mls/hr IV.SIG .[id number] GERMAINE Rx#:[id number] Zyvox 600 mg Premix 300 ML @ 300 / 300 300 / 300 300 mls/hr IV.SIG Q12H GERMAINE Rx#: [id number] Mycamine Inj 150 MG In NS Inj 100 / 100 100 ML @ 100 mls/hr IV.SIG Q24H GERMAINE Rx#:[id number] Flagyl 500 MG Inj 100 ML @ 100 200 / 200 200 / 200 100 / 100 mls/hr IV.SIG Q6H GERMAINE Rx#: [id number] Tube Feeding 204 / 204 238 / 238 Tube Irrigant 60 / 60 Water Bolus Amount 100 / 100 Other 400 / 400 40 / 40 Rbc As-3 Leukoreduced Unit 400 / 400 [id number] Intake (Blood Product) Amt 400 / 400 Rbc As-3 Leukoreduced Unit 400 / 400 [id number] Output: Urine 4025 / 4025 3650 / 3650 Other: Other Intake Source Saline Solution Date of Last Bowel Movement 02/22/18 02/22/18 02/24/18 - Urinary Catheter Management Coude Cath placed during this visit: no Straight Cath placed during this visit: no Indwelling Urethral Catheter Cath placed during this visit: no <Carole Sarabia - Last Filed: 02/24/18 12:03> Results - Labs CBC & Chem 7: 02/23/18 20:40 02/23/18 06:06 Laboratory Results - last 24 hr 02/20/18 02/23/18 02/23/18 10:15 10:34 11:40 Hgb Hct POC Glucose 124 H Blood Type O Positive Antibody Screen Negative MTS Gel Crossmatch See Detail See Detail 02/23/18 02/23/18 02/23/18 16:33 19:40 20:40 Hgb 8.7 L Hct 25.8 L POC Glucose 116 H 111 H Blood Type Antibody Screen MTS Gel Crossmatch 02/23/18 02/24/18 02/24/18 23:59 04:03 08:18 Hgb Hct POC Glucose 116 H 96 98 Blood Type Antibody Screen MTS Gel Crossmatch Microbiology 02/21/18 09:30 Sputum - Endotracheal Gram Stain - Final 02/21/18 09:30 Sputum - Endotracheal Sputum Culture - Final Heavy growth normal respiratory pepito 02/21/18 10:44 Blood - Peripheral Aerobic Blood Culture - Preliminary No growth in 2 days 02/21/18 10:44 Blood - Peripheral Anaerobic Blood Culture - Preliminary No growth in 2 days 02/21/18 10:23 Blood - Peripheral Aerobic Blood Culture - Preliminary No growth in 2 days 02/21/18 10:23 Blood - Peripheral Anaerobic Blood Culture - Preliminary No growth in 2 days <Jennifer Carl - Last Filed: 02/24/18 10:47> - Labs CBC & Chem 7: 02/23/18 20:40 02/23/18 06:06 Laboratory Results - last 24 hr 02/20/18 02/23/18 02/23/18 10:15 10:34 16:33 Hgb Hct POC Glucose 116 H Blood Type O Positive Antibody Screen Negative MTS Gel Crossmatch See Detail See Detail 02/23/18 02/23/18 02/23/18 19:40 20:40 23:59 Hgb 8.7 L Hct 25.8 L POC Glucose 111 H 116 H Blood Type Antibody Screen MTS Gel Crossmatch 02/24/18 02/24/18 04:03 08:18 Hgb Hct POC Glucose 96 98 Blood Type Antibody Screen MTS Gel Crossmatch Microbiology 02/21/18 10:44 Blood - Peripheral Aerobic Blood Culture - Preliminary No growth in 3 days 02/21/18 10:44 Blood - Peripheral Anaerobic Blood Culture - Preliminary No growth in 3 days 02/21/18 10:23 Blood - Peripheral Aerobic Blood Culture - Preliminary No growth in 3 days 02/21/18 10:23 Blood - Peripheral Anaerobic Blood Culture - Preliminary No growth in 3 days 02/21/18 09:30 Sputum - Endotracheal Gram Stain - Final 02/21/18 09:30 Sputum - Endotracheal Sputum Culture - Final Heavy growth normal respiratory pepito - Imaging Impressions Venous Doppler Study 02/24/18 00:00 CONCLUSION: 1. There is occlusive thrombus within the proximal right basilic vein. 2. The remaining veins in the right upper extremity are patent. <Carole Sarabia - Last Filed: 02/24/18 12:03> Assessment and Plan - Plan Assessment: - Possible peritonitis secondary to track formation from PEG tube EGD with PEG (02/09) 22 Fr PEG placed successfully, otherwise normal exam Leukocytosis yesterday, resolved today Afebrile, blood pressure stable, not on pressors (02/24) S/P EGD with PEG replacement yesterday. Plan: OK to restart TF Flush PEG q 6hrs and after medications and feedings Monitor site for any drainage Continue treatment for C. Diff Our service will sign off, please reconsult as needed Have pt follow up with GI after DC Pt has been seen and examined by myself and Dr. Sarabia and this note is written on his behalf <Jennifer Carl - Last Filed: 02/24/18 10:47> - Plan Seen and examined with [employer]AS[employer], peg tube changed endoscopically yesterday. Start TF. monitor for infection. GI will sign off, reconsult as needed. Thank you The exam, history, and the medical decision-making described in the above note were completed with the assistance of the mid-level provider. I reviewed and agree with the findings presented. I attest that I had a [id number] encounter with the patient on the same day, and personally performed and documented my assessment and findings in the medical record. <Carole Sarabia - Last Filed: 02/24/18 12:03>
--- NOTE | 2018-02-24 11:35 | P.PNID ---
Subjective Remarks: Patient in is awake and alert. Discussed with RN. Noted to be visually hallucinating earlier. Pulled out his IV line. Communicating by writing. No distress. Noted to have loose stools. Also on tube feedings. Low grade fever. Patient on the vent. Gilmore secretions. Culture has no growth. Status post tracheostomy 02/08/2018. This is a 32-year-old white male who presented to the emergency department with 2-day history of nausea, vomiting, and diarrhea. The patient ended up intubated after he went into ventricular fibrillation cardiac arrest and was resuscitated. He also was noted to have seizure activity. Antibiotics: IV Flagyl PO Vanco Aztreonam. Zyvox. Past Medical History: PAST MEDICAL HISTORY: Alcohol abuse, gastroesophageal reflux disease, hernia, depression, pancreatitis, seizure disorder, left inguinal hernia repair. Allergies/Adverse Reactions: Allergies Sulfa (Sulfonamide Antibiotics) Allergy (Severe, Verified 10/11/17 07:56) hives cefepime Adverse Reaction (Intermediate, Verified 02/15/18 10:55) Rash, Generalized Objective Vital Signs 02/23/18 12:00 02/23/18 12:27 02/23/18 13:30 Temperature 98.5 F Pulse Rate 57 L 57 L Respiratory Rate 22 25 H 27 H Blood Pressure Pulse Oximetry 100 100 02/23/18 14:00 02/23/18 15:06 02/23/18 15:09 Temperature Pulse Rate 57 L 61 56 L Respiratory Rate 26 H 25 H Blood Pressure 111/78 116/79 Pulse Oximetry 75 L 99 02/23/18 15:12 02/23/18 15:15 02/23/18 15:18 Temperature Pulse Rate 58 L 59 L 58 L Respiratory Rate 28 H 26 H 26 H Blood Pressure 113/79 113/76 113/77 Pulse Oximetry 95 94 L 94 L 02/23/18 15:21 02/23/18 15:24 02/23/18 15:27 Temperature Pulse Rate 58 L 57 L 58 L Respiratory Rate 26 H 26 H 25 H Blood Pressure 116/76 113/74 117/75 Pulse Oximetry 94 L 94 L 94 L 02/23/18 15:30 02/23/18 15:33 02/23/18 15:36 Temperature Pulse Rate 57 L 56 L 57 L Respiratory Rate 25 H 26 H 25 H Blood Pressure 116/74 114/75 117/76 Pulse Oximetry 94 L 94 L 94 L 02/23/18 15:39 02/23/18 15:42 02/23/18 15:45 Temperature Pulse Rate 57 L 56 L 57 L Respiratory Rate 22 24 23 Blood Pressure 114/78 117/79 118/78 Pulse Oximetry 94 L 93 L 95 02/23/18 15:48 02/23/18 15:51 02/23/18 15:54 Temperature Pulse Rate 56 L 55 L 55 L Respiratory Rate 25 H 22 24 Blood Pressure 118/78 118/79 117/82 Pulse Oximetry 94 L 94 L 94 L 02/23/18 15:57 02/23/18 15:59 02/23/18 16:00 Temperature 98.1 F Pulse Rate 60 59 L 60 Respiratory Rate 23 22 22 Blood Pressure 120/82 119/81 Pulse Oximetry 95 95 95 02/23/18 16:03 02/23/18 16:06 02/23/18 16:09 Temperature Pulse Rate 58 L 58 L 59 L Respiratory Rate 25 H 24 25 H Blood Pressure 118/81 117/80 118/78 Pulse Oximetry 94 L 94 L 94 L 02/23/18 16:12 02/23/18 16:15 02/23/18 16:18 Temperature 98.2 F Pulse Rate 59 L 74 57 L Respiratory Rate 26 H 21 26 H Blood Pressure 117/77 116/74 118/70 Pulse Oximetry 94 L 88 L 100 02/23/18 18:00 02/23/18 20:00 02/23/18 20:43 Temperature 98.8 F Pulse Rate 66 79 Respiratory Rate 25 H 34 H Blood Pressure Pulse Oximetry 99 02/23/18 20:50 02/23/18 21:21 02/23/18 21:24 Temperature Pulse Rate 80 68 68 Respiratory Rate 32 H 14 0 L Blood Pressure 118/70 119/74 Pulse Oximetry 100 100 02/23/18 21:27 02/23/18 21:30 02/23/18 21:33 Temperature Pulse Rate 78 83 76 Respiratory Rate 15 22 10 L Blood Pressure 119/76 111/71 116/74 Pulse Oximetry 100 99 94 L 02/23/18 21:36 02/23/18 21:39 02/23/18 21:42 Temperature Pulse Rate 68 76 68 Respiratory Rate 8 L 14 3 L Blood Pressure 114/72 111/72 115/71 Pulse Oximetry 95 95 95 02/23/18 21:45 02/23/18 21:52 02/23/18 21:54 Temperature Pulse Rate 67 76 67 Respiratory Rate 0 L 14 7 L Blood Pressure 118/71 117/80 117/76 Pulse Oximetry 94 L 94 L 93 L 02/23/18 21:57 02/23/18 22:00 02/23/18 22:03 Temperature Pulse Rate 70 77 73 Respiratory Rate 10 L 10 L 4 L Blood Pressure 116/78 111/71 115/73 Pulse Oximetry 92 L 93 L 93 L 02/23/18 22:06 02/23/18 22:09 02/23/18 22:12 Temperature Pulse Rate 81 78 75 Respiratory Rate 25 H 10 L 7 L Blood Pressure 110/72 115/71 116/70 Pulse Oximetry 93 L 91 L 95 02/23/18 22:15 02/23/18 22:19 02/23/18 22:22 Temperature Pulse Rate 74 84 87 Respiratory Rate 0 L 24 23 Blood Pressure 116/68 111/56 L 112/57 L Pulse Oximetry 92 L 95 94 L 02/23/18 22:26 02/23/18 22:27 02/23/18 22:30 Temperature Pulse Rate 81 81 82 Respiratory Rate 27 H 20 14 Blood Pressure 132/62 120/73 113/68 Pulse Oximetry 91 L 94 L 02/23/18 22:33 02/23/18 22:36 02/23/18 23:39 Temperature Pulse Rate 78 80 Respiratory Rate 18 25 H 28 H Blood Pressure 114/70 114/67 Pulse Oximetry 96 02/23/18 23:42 02/23/18 23:45 02/23/18 23:48 Temperature Pulse Rate 72 68 Respiratory Rate 15 12 Blood Pressure 114/80 119/82 116/80 Pulse Oximetry 93 L 87 L 02/23/18 23:51 02/23/18 23:54 02/23/18 23:57 Temperature Pulse Rate 68 71 76 Respiratory Rate 15 23 24 Blood Pressure 115/77 115/75 117/79 Pulse Oximetry 86 L 90 L 95 02/24/18 00:00 02/24/18 00:03 02/24/18 00:06 Temperature 98.6 F Pulse Rate 70 76 67 Respiratory Rate 23 26 H 22 Blood Pressure 114/77 116/77 116/77 Pulse Oximetry 90 L 90 L 90 L 02/24/18 00:09 02/24/18 00:12 02/24/18 00:15 Temperature Pulse Rate 73 69 69 Respiratory Rate 20 23 22 Blood Pressure 117/75 116/72 117/76 Pulse Oximetry 93 L 90 L 90 L 02/24/18 00:18 02/24/18 00:21 02/24/18 00:24 Temperature Pulse Rate 74 69 71 Respiratory Rate 23 23 21 Blood Pressure 118/78 119/76 116/74 Pulse Oximetry 90 L 87 L 89 L 02/24/18 00:27 02/24/18 00:30 02/24/18 00:33 Temperature Pulse Rate 76 67 64 Respiratory Rate 13 21 21 Blood Pressure 118/77 120/81 120/78 Pulse Oximetry 83 L 86 L 85 L 02/24/18 00:36 02/24/18 00:39 02/24/18 00:45 Temperature Pulse Rate 66 68 65 Respiratory Rate 21 23 16 Blood Pressure 121/82 125/81 120/78 Pulse Oximetry 88 L 88 L 81 L 02/24/18 00:48 02/24/18 00:51 02/24/18 00:54 Temperature Pulse Rate 76 66 71 Respiratory Rate 17 22 19 Blood Pressure 114/78 119/81 122/83 Pulse Oximetry 87 L 85 L 99 02/24/18 00:57 02/24/18 01:00 02/24/18 02:00 Temperature Pulse Rate 69 66 75 Respiratory Rate 25 H 24 Blood Pressure 120/81 Pulse Oximetry 92 L 93 L 02/24/18 02:48 02/24/18 02:51 02/24/18 02:54 Temperature Pulse Rate 71 74 74 Respiratory Rate 23 21 27 H Blood Pressure 114/70 116/71 117/75 Pulse Oximetry 02/24/18 02:57 02/24/18 03:00 02/24/18 03:03 Temperature Pulse Rate 79 70 76 Respiratory Rate 27 H 19 19 Blood Pressure 118/74 119/76 121/76 Pulse Oximetry 97 97 02/24/18 03:06 02/24/18 03:10 02/24/18 03:12 Temperature Pulse Rate 70 72 68 Respiratory Rate 18 20 15 Blood Pressure 122/77 110/88 116/90 Pulse Oximetry 97 97 97 02/24/18 03:15 02/24/18 03:18 02/24/18 03:21 Temperature Pulse Rate 70 70 67 Respiratory Rate 11 L 16 14 Blood Pressure 121/88 122/86 125/85 Pulse Oximetry 98 98 98 02/24/18 03:24 02/24/18 03:27 02/24/18 03:30 Temperature Pulse Rate 71 68 67 Respiratory Rate 15 19 15 Blood Pressure 121/83 122/79 121/80 Pulse Oximetry 98 97 97 02/24/18 03:33 02/24/18 03:36 02/24/18 03:39 Temperature Pulse Rate 68 75 82 Respiratory Rate 15 20 22 Blood Pressure 121/78 122/78 118/71 Pulse Oximetry 96 99 98 02/24/18 03:42 02/24/18 03:45 02/24/18 03:48 Temperature Pulse Rate 70 70 73 Respiratory Rate 23 24 24 Blood Pressure 122/82 124/83 124/80 Pulse Oximetry 97 98 99 02/24/18 03:51 02/24/18 03:54 02/24/18 03:57 Temperature Pulse Rate 68 72 69 Respiratory Rate 8 L 22 21 Blood Pressure 128/83 123/86 121/81 Pulse Oximetry 97 97 97 02/24/18 03:58 02/24/18 04:00 02/24/18 04:03 Temperature 98.8 F Pulse Rate 82 70 Respiratory Rate 25 H 25 H 32 H Blood Pressure 123/88 121/81 Pulse Oximetry 98 98 100 02/24/18 04:06 02/24/18 04:07 02/24/18 04:09 Temperature Pulse Rate 72 69 76 Respiratory Rate 25 H 24 28 H Blood Pressure 126/82 123/80 Pulse Oximetry 99 98 02/24/18 04:12 02/24/18 04:15 02/24/18 04:18 Temperature Pulse Rate 78 82 83 Respiratory Rate 23 27 H 14 Blood Pressure 117/85 116/79 120/81 Pulse Oximetry 99 98 98 02/24/18 04:21 02/24/18 04:24 02/24/18 04:27 Temperature Pulse Rate 91 H 88 91 H Respiratory Rate 25 H 36 H 30 H Blood Pressure 118/81 123/75 120/77 Pulse Oximetry 96 89 L 93 L 02/24/18 04:30 02/24/18 04:33 02/24/18 04:36 Temperature Pulse Rate 90 90 96 H Respiratory Rate 31 H 24 31 H Blood Pressure 127/76 126/74 139/99 H Pulse Oximetry 94 L 96 95 02/24/18 04:41 02/24/18 05:00 02/24/18 06:00 Temperature Pulse Rate 82 84 85 Respiratory Rate 22 22 16 Blood Pressure 140/91 H Pulse Oximetry 89 L 85 L 95 02/24/18 07:00 02/24/18 07:34 02/24/18 08:00 Temperature 100.7 F H Pulse Rate 83 78 Respiratory Rate 17 31 H 22 Blood Pressure 145/107 H Pulse Oximetry 95 96 95 02/24/18 08:04 02/24/18 09:00 02/24/18 09:05 Temperature Pulse Rate 87 93 H 95 H Respiratory Rate 32 H 36 H 29 H Blood Pressure 145/107 H 171/83 H Pulse Oximetry 98 02/24/18 10:00 02/24/18 11:00 Temperature Pulse Rate 97 H 81 Respiratory Rate 23 17 Blood Pressure 125/60 123/70 Pulse Oximetry 94 L 97 Intake & Output 02/23/18 02/24/18 02/24/18 18:59 06:59 18:59 Intake Total 3384 / 3384 2538 / 2538 350 / 350 Output Total 4025 / 4025 3650 / 3650 Balance -641 / -641 -1112 / -1112 350 / 350 Weight 54 kg Intake: IV 2380 / 2380 2100 / 2100 350 / 350 Precedex Inj 1,000 MCG In NS 500 / 500 250 / 250 250 / 250 Inj 240 ML @ 0.2 MCG/KG/HR 4.27 mls/hr IV.CONT TITRATE PRN Rx# :[id number] Diprivan 1000 mg/100 ml Inj 1, 280 / 280 300 / 300 100 / 100 000 mg In 100 ml @ 5 MCG/KG/MIN 2.604 mls/hr IV.CONT TITRATE PRN Rx#:[id number] Azactam Inj 2 GM In NS Inj 100 200 / 200 100 / 100 ML @ 200 mls/hr IV.SIG Q8H GERMAINE Rx#:[id number] D5W/Normal Saline Inj 1,000 ML 800 / 800 950 / 950 @ 75 mls/hr IV.SIG .[id number] GERMAINE Rx#:[id number] Zyvox 600 mg Premix 300 ML @ 300 / 300 300 / 300 300 mls/hr IV.SIG Q12H [facility] Rx#: [id number] Mycamine Inj 150 MG In NS Inj 100 / 100 100 ML @ 100 mls/hr IV.SIG Q24H [facility] Rx#:[id number] Flagyl 500 MG Inj 100 ML @ 100 200 / 200 200 / 200 mls/hr IV.SIG Q6H [facility] Rx#: [id number] Tube Feeding 204 / 204 238 / 238 Tube Irrigant 60 / 60 Water Bolus Amount 100 / 100 Other 400 / 400 40 / 40 Rbc As-3 Leukoreduced Unit 400 / 400 [id number] Intake (Blood Product) Amt 400 / 400 Rbc As-3 Leukoreduced Unit 400 / 400 [id number] Output: Urine 4025 / 4025 3650 / 3650 Other: Other Intake Source Saline Solution Date of Last Bowel Movement 02/22/18 02/22/18 02/24/18 02/21/18 10:44 Blood - Peripheral Aerobic Blood Culture - Preliminary No growth in 3 days 02/21/18 10:44 Blood - Peripheral Anaerobic Blood Culture - Preliminary No growth in 3 days 02/21/18 10:23 Blood - Peripheral Aerobic Blood Culture - Preliminary No growth in 3 days 02/21/18 10:23 Blood - Peripheral Anaerobic Blood Culture - Preliminary No growth in 3 days 02/21/18 09:30 Sputum - Endotracheal Gram Stain - Final 02/21/18 09:30 Sputum - Endotracheal Sputum Culture - Final Heavy growth normal respiratory pepito 02/17/18 13:20 Bronchial Washings - Right Upper Lobe Fungal Smear - Final No fungal elements seen 02/17/18 13:20 Bronchial Washings - Right Upper Lobe Fungal Culture - Preliminary Lab - Hematology Results 02/23/18 02/23/18 06:06 20:40 WBC 9.0 RBC 2.23 L Hgb 7.1 L 8.7 L Hct 21.7 L 25.8 L MCV 97.3 MCH 32.0 MCHC 32.9 RDW 16.2 Plt Count 776 H MPV 6.8 L Lab - Chemistry Results 02/22/18 02/22/18 02/22/18 11:15 16:24 20:23 Sodium Potassium Chloride Carbon Dioxide Anion Gap BUN Creatinine Estimated GFR POC Glucose 118 H 146 H 125 H Random Glucose Calcium Magnesium Total Bilirubin AST ALT Alkaline Phosphatase Total Protein Albumin 02/23/18 02/23/18 02/23/18 00:42 04:21 06:06 Sodium 144 Potassium 3.7 Chloride 110 H Carbon Dioxide 24.8 Anion Gap 9 BUN 10 Creatinine 0.65 Estimated GFR Greater than 89 POC Glucose 136 H 155 H Random Glucose 107 H Calcium 8.2 L Magnesium 1.6 Total Bilirubin 0.3 AST 25 ALT 15 Alkaline Phosphatase 92 Total Protein 5.7 L Albumin 1.6 L 02/23/18 02/23/18 02/23/18 08:10 11:40 16:33 Sodium Potassium Chloride Carbon Dioxide Anion Gap BUN Creatinine Estimated GFR POC Glucose 120 H 124 H 116 H Random Glucose Calcium Magnesium Total Bilirubin AST ALT Alkaline Phosphatase Total Protein Albumin 02/23/18 02/23/18 02/24/18 19:40 23:59 04:03 Sodium Potassium Chloride Carbon Dioxide Anion Gap BUN Creatinine Estimated GFR POC Glucose 111 H 116 H 96 Random Glucose Calcium Magnesium Total Bilirubin AST ALT Alkaline Phosphatase Total Protein Albumin 02/24/18 08:18 Sodium Potassium Chloride Carbon Dioxide Anion Gap BUN Creatinine Estimated GFR POC Glucose 98 Random Glucose Calcium Magnesium Total Bilirubin AST ALT Alkaline Phosphatase Total Protein Albumin Imaging: ITS Impressions Gallbladder Ultrasound 01/30/18 00:00 CONCLUSION: 1. Unremarkable study. Abdomen/Bladder Ultrasound 01/30/18 15:17 CONCLUSION: 1. Negative renal sonogram. Head CT 02/06/18 03:50 CONCLUSION: 1. No acute intracranial abnormalities. . Head MRI 02/09/18 00:00 CONCLUSION: 1. Normal MRI of the brain. 2. Sinusitis and mastoiditis. Chest CTA 02/14/18 00:00 CONCLUSION: No evidence of pulmonary embolism. New right upper lobe pneumonia. Improving aeration on the left. Abdomen/Pelvis CT 02/20/18 00:00 CONCLUSION: 1. Interval development of 6 cm smooth margin low density cystic structure about the tail of the pancreas suggesting possible pseudocyst formation. 2. Percutaneous gastrostomy in place. No evidence of free intraperitoneal gas or free fluid. 3. Development of diffuse anasarca. 4. Interval development development of moderate-sized right pleural effusion and multifocal subsegmental areas of infiltrate in the right lower lung and decrease in size of left pleural effusion. Chest CT 02/21/18 00:00 CONCLUSION: 1. G-tube is within the anterior abdominal wall left rectus muscle with a sinus tract extending to the stomach. Findings called to Dr. Allen at the time of dictation. 2. Slight worsening of bilateral patchy airspace consolidation and bilateral effusions since February 20. 3. Tracheostomy in good position. Abdomen X-Ray 02/21/18 17:10 CONCLUSION: No peritoneal leakage identified with Gastrografin injection. Chest X-Ray 02/23/18 06:00 CONCLUSION: No significant interval change with persistent bilateral diffuse pulmonary opacity. Physical Exam: PHYSICAL EXAMINATION: GENERAL: Awake. No distress. On vent. HEENT: Pupils are equal and reactive. No icterus. NECK: No adenopathy or swelling. LUNGS: Coarse rhonchi bilateral and mild wheezing. HEART: Regular S1 and S2. No murmurs heard. ABDOMEN: Bowel sounds present. Soft. No tenderness appreciated. No mass palpable. EXTREMITIES: No clubbing, cyanosis. edema of the hands. Swelling at RUE is decreased. SKIN: No rash. NEUROLOGIC: Non focal. Assessment and Plan - Plan IMPRESSION: 1. Possible sepsis. However cultures have been negative. Previous staph coagulase positive blood culture felt to be contamination. Subsequent cultures negative. No clear source. 2. Skin rash. Likely drug related. Probably cefepime was associated. 3. Pneumonia. Suspect aspiration. 4. Status post cardiac arrest. 5. Acute respiratory failure. Patient now post tracheostomy. 6. Acute renal failure. Improved. 7. Seizure disorder. 8. Diarrhea. Questionable antibiotic associated. 9. Oliva UTI. 10. Leukocytosis improved. 11. C. difficile colitis. 12. Fever. ? etiology. Worsened lung infiltrates. may have peritonitis secondary to peg tube migrating into peritoneum. ? aspiration. Temp lower. RECOMMENDATIONS: 1. Continue Aztreonam. 2. Continue intravenous Flagyl for C. difficile. Day #9. 3. Continue p.o. vancomycin for C. difficile. Day #9. 4. Monitor temp and WBC. 5. Monitor clinical status. [facility]
--- NOTE | 2018-02-24 11:40 | US ---
EXAM DATE: 02/24/2018 12:00 AM EDT AGE/SEX: 32 years / Male INDICATIONS: Right arm pain. CLINICAL DATA: This is the patient's initial encounter. Patient reports that signs and symptoms have been present for 1 day and indicates a pain score of 5/10. MEDICAL/SURGICAL HISTORY: . ETOH. GERD. Hernia. Pancreatitis. Seizures. . Left inguinal he rnia repair. COMPARISON: No prior exams available for comparison. FINDINGS: There are abnormal intraluminal echoes within the proximal right basilic vein. This vessel also demonstrates lack of normal blood flow and compressibility. Remaining veins of the right upper extremity including the internal jugular vein are patent. Other: None. CONCLUSION: 1. There is occlusive thrombus within the proximal right basilic vein. 2. The remaining veins in the right upper extremity are patent. Electronically signed by: Alejandro Pate MD 02/24/2018 11:39 AM EDT
--- NOTE | 2018-02-24 12:40 | P.PNCC ---
Subjective Subjective Remarks/Hospital Course: This is a 32-year-old male. Admission 01/28/2018. Past medical history includes seizure disorder/noncompliant with levetiracetam, previous EtOH sober for 4 weeks, anorexia, gastroesophageal reflux disease and chronic pancreatitis. Patient presented to [facility] 01/28/2018 with a two-day history of nausea vomiting and diarrhea. Patient's mother/discussed at bedside stated she had just had a "stomach flu" which she has currently recovered. Mom states that the patient has become fairly dehydrated is been having some cramping of his hands. She is worried that he is getting dehydrated and his potassium might begin low. He was unable to tolerate a banana so she gave him some potassium pills p.o. which she also did not tolerate and threw up. Sober 4 weeks according to mother. Patient was noted to have a low potassium at 2.0. Creatinine of 4.0. This is in line with his previous hospitalizations for acute dehydration. Lipase was slightly elevated. Patient does have a history of seizure disorder which is not compliant with levetiracetam. ED physician was called into room because the RN believed he had a seizure. Patient was unresponsive. Mother states this was not like any seizure that she had seen. Pulses not palpable therefore CPR was initiated. Initial rhythm was V. fib. Patient received amiodarone, lidocaine, epinephrine, bicarbonate, magnesium during the 35 minute code with return of spontaneous circulation after 35 minutes. Pupils are about 9 mils bilaterally and 6. When I saw the patient patient was actively thrashing moving all 4 extremities spontaneously but not to command. Pupils are round 8 mm bilaterally and nonreactive. Brain CT revealed no acute findings. CT thorax revealed a left upper and lower lobe. CT abdomen pelvis pending at time of dictation. Likely, troponin pending. EKG revealed incomplete right bundle block with ST depression in the inferior and lateral leads. Cardiology consulted. They will evaluate after stat echocardiogram and troponins been completed. Potassium will be replaced pending [facility] 01/29: persistently in shock. following commands this AM. trop uptrended overnight and now > 40. on levo @ 10, vasopressin. bedside echo with persistence of his global severe LV systolic dysfunction. IVC dilated without respiratory variation. initially attempted therapeutic hypothermia, but became arrhythmogenic and neurologic exam improved and now following commands, so hypothermia aborted. persistently hypokalemic and hypophosphatemic this AM. in addition, remains with severe metabolic alkalosis. 01/30: Troponin trending down, continues to have severe hypokalemia and metabolic alkalosis. Creatinine continues to trend up, only produced 200 cc of urine over the past 24 hours. 01/31: Patient seen by nephrology yesterday and given bumex, urine output dramatically increased, potassium improved with aggressive repletion, pressors now off and dobutamine at 5. 02/01: No issues overnight. Patient tolerated dobutamine at 2 yesterday, discontinued this morning. Switching propofol to precedex and would like to start SBTs today. Overall improved. 02/02: Tolerated switch to precedex yesterday and was on bipap 05/06 for several hours yesterday afternoon, placed back on AC overnight to avoid respiratory fatigue. 02/03: Patient had no overnight events, tolerated SBT x 5 hours yesterday. Significantly agitated this morning during sedation vacation. 02/04: Patient still struggles with agitation when we lighten sedation. 02/05: Temp 103F this morning, no obvious source of infection. Needs to have PICC line placed today. 02/06: reintubated yesterday. overnight persistently febrile. this morning appears in distress- tachypneic on the ventilator, acidotic. potassium up to 5.8 despite medical management. bedside echo with improving LVEF and completely collapsed IVC. no pericardial effusion. lung ultrasound without effusions. 02/07: Remains sedated, orally intubated on mechanical ventilation. On propofol fentanyl and Versed drips. Transfuse 1 unit PRBCs earlier today for drop in hemoglobin. 02/08: Remains sedated, orally intubated on mechanical ventilation. On propofol fentanyl and Versed drips. Awaiting tracheostomy which is scheduled for later today. 02/09: Overnight, new onset of maculopapular rash noted. Noted discontinuation of cefepime 02/08. Received 1 dose diphenhydramine overnight. 02/10: Afebrile. Discussed with mom at bedside. Follows commands weakly bilateral upper and lower extremities. Diffuse macular papular rash improved lower extremities. Appears stable and upper thorax. On Famotidine, methylprednisolone and diphenhydramine 02/11: Afebrile. Opens eyes to voice. Following commands weakly bilateral upper lower extremity. On propofol 50 roxanne grams per kilogram, a fentanyl drip at 250 mg of midazolam drip at 6 mg an hour due to "agitation" overnight. Will wean. Increased quetiapine to 100 twice daily. 02/12: remains on vent at this time, sedated. Follows commands all extremities weakly. RN states that she increase her sedation as the patient was tachycardic and hypotensive. I will start labetalol 200 mg twice daily and attempt sedation wean. 02/13: T-max 101.5. Remains on fentanyl drip at 250 roxanne grams an hour, midazolam drip at 7 mg an hour and fentanyl drip at 250 roxanne grams an hour. Started labetalol 200 mg twice a yesterday but now hypotensive. Tube feeds currently at 10 cc an hour. 02/14: T-max 100.3. Remains on fentanyl drip at 250 roxanne grams an hour, midazolam drip at 7 mg and fentanyl drip 250 mcg an hour. 2 feedings currently at [address] pulmonary angiogram today per cardiology request. Will discuss some other possible transfer to select hospital today. 02/15: T-max 100.3. Tube feedings currently at [address] pulmonary angiogram revealed right upper lobe infiltrate/new. No pulmonary embolism. Opens eyes to voice. 02/16: T-max 100.7. Arousable to voice and close his eyes. Noted increasing platelets currently 876. Will check iron studies and peripheral smear. Again continued difficulty weaning off IV sedation due to severe agitation. 02/17: Remains febrile. Plan for bronchoscopy right upper lobe infiltrate. Please continue to increase. Tolerating tube feeds at 50 cc an hour. Positive BM. 02/18: T-max 103.2. Currently afebrile. Bronchoscopy yesterday Gram stain negative. Tube feeds at goal. 02/19: T-max 101.4. Currently sitting in chair on trach collar on dexmedetomidine drip at 1.5 mcg/kg/h SUBJECTIVE: 02/20: Last fever at noon yesterday. Currently afebrile. Currently on dexmedetomidine drip at 1.3 mg/kg/h. Increasing quetiapine to 300 mg twice daily. Transfusing 1 unit PRBCs today. Replace potassium magnesium see orders. Agitated. Out of bed to chair yesterday on trach collar currently. 02/21: Acute change in status overnight became acutely short of breath was placed back on the ventilator. Chest x-ray done today a.m. shows diffuse worsening bilateral pulmonary infiltrates pulmonary edema/ARDS. Recent bronch and blood cultures have been negative. Appears to be developing severe sepsis with probable ARDS. Received 60 mg IV Lasix overnight 02/22: Remains on the ventilator tachypneic on CPAP. WBC count has improved but chest x-ray with persistent bilateral infiltrates. I will restart IV Lasix for aggressive diuresis monitoring creatinine. On broad-spectrum antibiotics per ID however cultures are pending at this time. Abdominal x-ray after Gastrografin injection did not show any leakage into the peritoneum. Continue medical management for sepsis closely monitor this pancreatic pseudocyst. PEG tube to be replaced today 02/23: Clinically improving, WBC count normal. Hemoglobin 7.1 will transfuse 1 unit PRBC. GI planning to replace dislodged G-tube today. Clinically sepsis seems to be improving. Chest x-ray shows slight improvement in bilateral infiltrates. I will increase Lasix to 20 mg every 6 hours 02/24: Breathing more comfortably on vent support. Urine output excellent more than 7 L with diuresis. We will follow-up chest x-ray in a.m. PEG tube replaced yesterday, start tube feeds if cleared by GI Objective Vital Signs / I&O: Vital Signs 02/23/18 12:27 02/23/18 13:30 02/23/18 14:00 Temperature 98.5 F Pulse Rate 57 L 57 L Respiratory Rate 25 H 27 H Blood Pressure Pulse Oximetry 100 100 02/23/18 15:06 02/23/18 15:02/23/18 15:12 Temperature Pulse Rate 61 56 L 58 L Respiratory Rate 26 H 25 H 28 H Blood Pressure 111/78 116/79 113/79 Pulse Oximetry 75 L 99 95 02/23/18 15:15 02/23/18 15:18 02/23/18 15:21 Temperature Pulse Rate 59 L 58 L 58 L Respiratory Rate 26 H 26 H 26 H Blood Pressure 113/76 113/77 116/76 Pulse Oximetry 94 L 94 L 94 L 02/23/18 15:24 02/23/18 15:27 02/23/18 15:30 Temperature Pulse Rate 57 L 58 L 57 L Respiratory Rate 26 H 25 H 25 H Blood Pressure 113/74 117/75 116/74 Pulse Oximetry 94 L 94 L 94 L 02/23/18 15:33 02/23/18 15:36 02/23/18 15:39 Temperature Pulse Rate 56 L 57 L 57 L Respiratory Rate 26 H 25 H 22 Blood Pressure 114/75 117/76 114/78 Pulse Oximetry 94 L 94 L 94 L 02/23/18 15:42 02/23/18 15:45 02/23/18 15:48 Temperature Pulse Rate 56 L 57 L 56 L Respiratory Rate 24 23 25 H Blood Pressure 117/79 118/78 118/78 Pulse Oximetry 93 L 95 94 L 02/23/18 15:51 02/23/18 15:54 02/23/18 15:57 Temperature Pulse Rate 55 L 55 L 60 Respiratory Rate 22 24 23 Blood Pressure 118/79 117/82 120/82 Pulse Oximetry 94 L 94 L 95 02/23/18 15:59 02/23/18 16:00 02/23/18 16:03 Temperature 98.1 F Pulse Rate 59 L 60 58 L Respiratory Rate 22 22 25 H Blood Pressure 119/81 118/81 Pulse Oximetry 95 95 94 L 02/23/18 16:06 02/23/18 16:09 02/23/18 16:12 Temperature Pulse Rate 58 L 59 L 59 L Respiratory Rate 24 25 H 26 H Blood Pressure 117/80 118/78 117/77 Pulse Oximetry 94 L 94 L 94 L 02/23/18 16:15 02/23/18 16:18 02/23/18 18:00 Temperature 98.2 F Pulse Rate 74 57 L 66 Respiratory Rate 21 26 H Blood Pressure 116/74 118/70 Pulse Oximetry 88 L 100 02/23/18 20:00 02/23/18 20:43 02/23/18 20:50 Temperature 98.8 F Pulse Rate 79 80 Respiratory Rate 25 H 34 H 32 H Blood Pressure Pulse Oximetry 99 02/23/18 21:21 02/23/18 21:24 02/23/18 21:27 Temperature Pulse Rate 68 68 78 Respiratory Rate 14 0 L 15 Blood Pressure 118/70 119/74 119/76 Pulse Oximetry 100 100 100 02/23/18 21:30 02/23/18 21:33 02/23/18 21:36 Temperature Pulse Rate 83 76 68 Respiratory Rate 22 10 L 8 L Blood Pressure 111/71 116/74 114/72 Pulse Oximetry 99 94 L 95 02/23/18 21:39 02/23/18 21:42 02/23/18 21:45 Temperature Pulse Rate 76 68 67 Respiratory Rate 14 3 L 0 L Blood Pressure 111/72 115/71 118/71 Pulse Oximetry 95 95 94 L 02/23/18 21:52 02/23/18 21:54 02/23/18 21:57 Temperature Pulse Rate 76 67 70 Respiratory Rate 14 7 L 10 L Blood Pressure 117/80 117/76 116/78 Pulse Oximetry 94 L 93 L 92 L 02/23/18 22:00 02/23/18 22:03 02/23/18 22:06 Temperature Pulse Rate 77 73 81 Respiratory Rate 10 L 4 L 25 H Blood Pressure 111/71 115/73 110/72 Pulse Oximetry 93 L 93 L 93 L 02/23/18 22:09 02/23/18 22:12 02/23/18 22:15 Temperature Pulse Rate 78 75 74 Respiratory Rate 10 L 7 L 0 L Blood Pressure 115/71 116/70 116/68 Pulse Oximetry 91 L 95 92 L 02/23/18 22:19 02/23/18 22:22 02/23/18 22:26 Temperature Pulse Rate 84 87 81 Respiratory Rate 24 23 27 H Blood Pressure 111/56 L 112/57 L 132/62 Pulse Oximetry 95 94 L 91 L 02/23/18 22:27 02/23/18 22:30 02/23/18 22:33 Temperature Pulse Rate 81 82 78 Respiratory Rate 20 14 18 Blood Pressure 120/73 113/68 114/70 Pulse Oximetry 94 L 02/23/18 22:36 02/23/18 23:39 02/23/18 23:42 Temperature Pulse Rate 80 Respiratory Rate 25 H 28 H Blood Pressure 114/67 114/80 Pulse Oximetry 96 02/23/18 23:45 02/23/18 23:48 02/23/18 23:51 Temperature Pulse Rate 72 68 68 Respiratory Rate 15 12 15 Blood Pressure 119/82 116/80 115/77 Pulse Oximetry 93 L 87 L 86 L 02/23/18 23:54 02/23/18 23:57 02/24/18 00:00 Temperature 98.6 F Pulse Rate 71 76 70 Respiratory Rate 23 24 23 Blood Pressure 115/75 117/79 114/77 Pulse Oximetry 90 L 95 90 L 02/24/18 00:03 02/24/18 00:06 02/24/18 00:09 Temperature Pulse Rate 76 67 73 Respiratory Rate 26 H 22 20 Blood Pressure 116/77 116/77 117/75 Pulse Oximetry 90 L 90 L 93 L 02/24/18 00:12 02/24/18 00:15 02/24/18 00:18 Temperature Pulse Rate 69 69 74 Respiratory Rate 23 22 23 Blood Pressure 116/72 117/76 118/78 Pulse Oximetry 90 L 90 L 90 L 02/24/18 00:21 02/24/18 00:24 02/24/18 00:27 Temperature Pulse Rate 69 71 76 Respiratory Rate 23 21 13 Blood Pressure 119/76 116/74 118/77 Pulse Oximetry 87 L 89 L 83 L 02/24/18 00:30 02/24/18 00:33 02/24/18 00:36 Temperature Pulse Rate 67 64 66 Respiratory Rate 21 21 21 Blood Pressure 120/81 120/78 121/82 Pulse Oximetry 86 L 85 L 88 L 02/24/18 00:39 02/24/18 00:45 02/24/18 00:48 Temperature Pulse Rate 68 65 76 Respiratory Rate 23 16 17 Blood Pressure 125/81 120/78 114/78 Pulse Oximetry 88 L 81 L 87 L 02/24/18 00:51 02/24/18 00:54 02/24/18 00:57 Temperature Pulse Rate 66 71 69 Respiratory Rate 22 19 25 H Blood Pressure 119/81 122/83 120/81 Pulse Oximetry 85 L 99 92 L 02/24/18 01:00 02/24/18 02:00 02/24/18 02:48 Temperature Pulse Rate 66 75 71 Respiratory Rate 24 23 Blood Pressure 114/70 Pulse Oximetry 93 L 02/24/18 02:51 02/24/18 02:54 02/24/18 02:57 Temperature Pulse Rate 74 74 79 Respiratory Rate 21 27 H 27 H Blood Pressure 116/71 117/75 118/74 Pulse Oximetry 02/24/18 03:00 02/24/18 03:03 02/24/18 03:06 Temperature Pulse Rate 70 76 70 Respiratory Rate 19 19 18 Blood Pressure 119/76 121/76 122/77 Pulse Oximetry 97 97 97 02/24/18 03:10 02/24/18 03:12 02/24/18 03:15 Temperature Pulse Rate 72 68 70 Respiratory Rate 20 15 11 L Blood Pressure 110/88 116/90 121/88 Pulse Oximetry 97 97 98 02/24/18 03:18 02/24/18 03:21 02/24/18 03:24 Temperature Pulse Rate 70 67 71 Respiratory Rate 16 14 15 Blood Pressure 122/86 125/85 121/83 Pulse Oximetry 98 98 98 02/24/18 03:27 02/24/18 03:30 02/24/18 03:33 Temperature Pulse Rate 68 67 68 Respiratory Rate 19 15 15 Blood Pressure 122/79 121/80 121/78 Pulse Oximetry 97 97 96 02/24/18 03:36 02/24/18 03:39 02/24/18 03:42 Temperature Pulse Rate 75 82 70 Respiratory Rate 20 22 23 Blood Pressure 122/78 118/71 122/82 Pulse Oximetry 99 98 97 02/24/18 03:45 02/24/18 03:48 02/24/18 03:51 Temperature Pulse Rate 70 73 68 Respiratory Rate 24 24 8 L Blood Pressure 124/83 124/80 128/83 Pulse Oximetry 98 99 97 02/24/18 03:54 02/24/18 03:57 02/24/18 03:58 Temperature Pulse Rate 72 69 Respiratory Rate 22 21 25 H Blood Pressure 123/86 121/81 Pulse Oximetry 97 97 98 02/24/18 04:00 02/24/18 04:03 02/24/18 04:06 Temperature 98.8 F Pulse Rate 82 70 72 Respiratory Rate 25 H 32 H 25 H Blood Pressure 123/88 121/81 126/82 Pulse Oximetry 98 100 99 02/24/18 04:07 02/24/18 04:09 02/24/18 04:12 Temperature Pulse Rate 69 76 78 Respiratory Rate 24 28 H 23 Blood Pressure 123/80 117/85 Pulse Oximetry 98 99 02/24/18 04:15 02/24/18 04:18 02/24/18 04:21 Temperature Pulse Rate 82 83 91 H Respiratory Rate 27 H 14 25 H Blood Pressure 116/79 120/81 118/81 Pulse Oximetry 98 98 96 02/24/18 04:24 02/24/18 04:27 02/24/18 04:30 Temperature Pulse Rate 88 91 H 90 Respiratory Rate 36 H 30 H 31 H Blood Pressure 123/75 120/77 127/76 Pulse Oximetry 89 L 93 L 94 L 02/24/18 04:33 02/24/18 04:36 02/24/18 04:41 Temperature Pulse Rate 90 96 H 82 Respiratory Rate 24 31 H 22 Blood Pressure 126/74 139/99 H 140/91 H Pulse Oximetry 96 95 89 L 02/24/18 05:00 02/24/18 06:00 02/24/18 07:00 Temperature Pulse Rate 84 85 83 Respiratory Rate 22 16 17 Blood Pressure Pulse Oximetry 85 L 95 95 02/24/18 07:34 02/24/18 08:00 02/24/18 08:04 Temperature 100.7 F H Pulse Rate 78 87 Respiratory Rate 31 H 22 32 H Blood Pressure 145/107 H 145/107 H Pulse Oximetry 96 95 98 02/24/18 09:00 02/24/18 09:05 02/24/18 10:00 Temperature Pulse Rate 93 H 95 H 97 H Respiratory Rate 36 H 29 H 23 Blood Pressure 171/83 H 125/60 Pulse Oximetry 94 L 02/24/18 11:00 02/24/18 11:30 Temperature Pulse Rate 81 Respiratory Rate 17 24 Blood Pressure 123/70 Pulse Oximetry 97 96 Intake & Output 02/23/18 02/24/18 02/24/18 18:59 06:59 18:59 Intake Total 3384 / 3384 2538 / 2538 650 / 650 Output Total 4025 / 4025 3650 / 3650 Balance -641 / -641 -1112 / -1112 650 / 650 Weight 54 kg Intake: IV 2380 / 2380 2100 / 2100 650 / 650 Precedex Inj 1,000 MCG In NS 500 / 500 250 / 250 250 / 250 Inj 240 ML @ 0.2 MCG/KG/HR 4.27 mls/hr IV.CONT TITRATE PRN Rx# :[id number] Diprivan 1000 mg/100 ml Inj 1, 280 / 280 300 / 300 200 / 200 000 mg In 100 ml @ 5 MCG/KG/MIN 2.604 mls/hr IV.CONT TITRATE PRN Rx#:[id number] Azactam Inj 2 GM In NS Inj 100 200 / 200 100 / 100 100 / 100 ML @ 200 mls/hr IV.SIG Q8H GERMAINE Rx#:[id number] D5W/Normal Saline Inj 1,000 ML 800 / 800 950 / 950 @ 75 mls/hr IV.SIG .[id number] GERMAINE Rx#:[id number] Zyvox 600 mg Premix 300 ML @ 300 / 300 300 / 300 300 mls/hr IV.SIG Q12H GERMAINE Rx#: [id number] Mycamine Inj 150 MG In NS Inj 100 / 100 100 ML @ 100 mls/hr IV.SIG Q24H GERMAINE Rx#:[id number] Flagyl 500 MG Inj 100 ML @ 100 200 / 200 200 / 200 100 / 100 mls/hr IV.SIG Q6H GERMAINE Rx#: [id number] Tube Feeding 204 / 204 238 / 238 Tube Irrigant 60 / 60 Water Bolus Amount 100 / 100 Other 400 / 400 40 / 40 Rbc As-3 Leukoreduced Unit 400 / 400 [id number] Intake (Blood Product) Amt 400 / 400 Rbc As-3 Leukoreduced Unit 400 / 400 [id number] Output: Urine 4025 / 4025 3650 / 3650 Other: Other Intake Source Saline Solution Date of Last Bowel Movement 02/22/18 02/22/18 02/24/18 Result Diagrams: 02/23/18 20:40 02/23/18 06:06 Objective Remarks: GENERAL: 32-year-old male currently on PRVC via tracheostomy 8.0 Shiley HEENT: NCAT, pupils are equal round react about 3 mm bilaterally. Extraocular muscles are intact. NECK: Trachea midline. Tracheostomy site is clean dry and intact CHEST: Bilateral coarse crackles and rhonchi. PRVC CARDIOVASCULAR: RRR. S1, S2 no S4. Without murmur ABDOMEN: Soft, mild tenderness on palpation, new PEG tube site is clean dry : Positive scrotal edema MUSCULOSKELETAL: Warm and well perfused, maculopapular rash on thorax, bilateral upper and lower extremities resolving. 1+ bilateral upper and lower extremity peripheral edema NEUROLOGICAL: Follows commands by squeezing bilateral upper and bilateral lower extremities weakly.Talks over trach. No obvious focal deficits Assessment and Plan - Assessment and Plan Plan: Neuro/Psych: Seizure disorder NOS History of EtOH sober 4 -6weeks History of anorexia/bulimia Acute metabolic encephalopathy Currently on dexmedetomidine and propofol drips for vent synchrony. Goal of RASS -2 Start lowering sedation, daily sedation location Continue levetiracetam 500 BID (home dose) Quetiapine 300 twice daily. Oxycodone liquid 15 mg every 6 hours. Valproic acid 250 milligrams twice daily Patient has a previous history of heavy EtOH abuse and bulimia as per mother Continue thiamine 100 mg twice daily Low-dose clonidine 0.1 point milligrams twice daily. CV: In-hospital cardiac arrest V. fib arrest Cardiogenic Shock-- resolved Severe LV systolic dysfunction- resolving. Septic shock-resolving New onset pulmonary edema cardiogenic versus ARDS Evaluated by Dr. Townsend. No further cardiac workup planned at this time. Echo 01/28: severe LV systolic dysfunction, EF 20-25%. mildly depressed RV function. no valvular lesions. Echocardiogram 02/14 - the left ventricular systolic function normal with an estimated EF in the range of 60-65%. Normal left ventricular size. Wall thickness is normal. No RWMA 02/21: Repeat limited echo Moderately dilated left ventricle. LV ejection fraction 40%. Diuresis with IV Lasix 20 mg every q6h Continue daily ASA 325 mg daily. Continued PO thiamine supplementation for ? beriberi Resp: Acute hypoxic respiratory failure- recurrent. Probable ARDS Extensive bilateral infiltrates/pulmonary edema Developed severe pulmonary edema placed back on ventilator 02/[address] of the chest ordered to evaluate infiltrates and effusion-interval worsening of infiltrates and effusion Aggressive diuresis as above Extubated 02/05, reintubated 02/05 for respiratory failure. Status post tracheostomy by Dr. Serna 02/08 Albuterol/ipratropium aerosols every 6 hours with albuterol aerosols every 2 hours as needed for dyspnea Vent bundle, hob elevated. wean fio2 for goal spo2 > 90%. CT pulmonary angiogram revealed no o pulmonary embolus. See ID section for antibiotics GI: Dislodged G-tube without evidence of peritoneal leak Pancreatic pseudocyst on CT 02/21 Elevated lipase/mild pancreatitis-- resolved Left hepatic pneumobilia history of chronic pancreatitis C. Difficile Colitis G-tube replaced yesterday, start tube feeds if cleared by GI Gastrografin study did not show any leakage into the peritoneum Displaced G-tube to be replaced today by Dr. Horn Discussed extensively on 02/21/[address] Watt and Dr. Horn Docusate serum/senna 1 tablet twice daily for bowel regimen when p.o. permitted Renal/ : Acute kidney injury-- resolved Creatinine peaked around 6, slowly normalized Nephrology has signed off IV Lasix as above Endo: Sliding scale insulin with Accu-Cheks to maintain euglycemia aspart insulin every 6 hours, Heme: Normocytic anemia Thrombocytosis Monitor CBC daily. Follow trends. s/p 1 unit of PRBC 02/23/2018 Restart aspirin when p.o. permitted Iron studies revealed low FE/TIBC and elevated ferritin. Likely this is reactive thrombocytosis. Currently on aspirin. ID: Severe sepsis C. Difficile Colitis F/u sputum blood and urine culture from 02/21-negative to date Dislodged G-tube without evidence of peritonitis Blood cultures on 01/28 and 01/31 showed coagulase negative staph hominis, likely contamination Sputum, UA and influenza all NGTD Continue ABX per ID. Continue Zyvox, Micafungin, Aztreonam, also on IV Flagyl for and p.o. vancomycin for C. difficile. s/p zosyn for 7 days to treat pneumonia, d/c on 02/05 02/08 Oliva albicans Bronc samples 02/17 follow-up FEN: Hypomagnesia Hypopotassemia Replace electrolytes as clinically indicated. MSK PT evaluate and treat DERM: Diffuse macular papular rash likely secondary to cefepime resolved Treated with H2 viviana, diphenhydramine and methylprednisolone succinate. Added cefepime to adverse reaction with rash Access: - 01/29 - 02/05 right SC TLC - 02/04 Nance for urinary retention-DC if retention resolved Prophylaxis -GI-famotidine -DVT SCD/ Subcutaneous heparin Level 3 Patient condition critical with with severe hypoxemic respiratory failure, severe pulmonary edema requiring mechanical ventilatory support. Further workup as above. Code Status: Full
[2018-02-24 13:05] LABS: Alanine Aminotransferase 16 U/L (12-78); Albumin 1.7 g/dL (3.4-5.0); Anion Gap 9 meq/L (5-15); Aspartate Aminotransferase 27 U/L (15-37); Blood Urea Nitrogen 8 mg/dL (7-18); Calcium 8.1 mg/dL (8.5-10.1); Carbon Dioxide 27.6 meq/L (21.0-32.0); Chloride 110 meq/L (98-107); Glomerular Filtration Rate Greater Than 89 mL/min (>89); Glucose,Random 107 mg/dL (74-106); Potassium 3.5 meq/L (3.5-5.1); Sodium 147 meq/L (136-145)
[2018-02-24 13:08] LABS: Alkaline Phosphatase 98 U/L (45-117); Total Protein 5.5 g/dL (6.4-8.2)
[2018-02-24] MEDS: Micafungin Inj 150 MG in Sodium Chlor 0.9% Inj 100 ML IV.SIG SCH (16:08)
--- NOTE | 2018-02-24 18:22 | P.PNONC ---
Subjective Interval history: on vent Objective Vital Signs/Intake & Output: Vital Signs 02/23/18 20:00 02/23/18 20:43 02/23/18 20:50 Temperature 98.8 F Pulse Rate 79 80 Respiratory Rate 25 H 34 H 32 H Blood Pressure Pulse Oximetry 99 02/23/18 21:21 02/23/18 21:24 02/23/18 21:27 Temperature Pulse Rate 68 68 78 Respiratory Rate 14 0 L 15 Blood Pressure 118/70 119/74 119/76 Pulse Oximetry 100 100 100 02/23/18 21:30 02/23/18 21:33 02/23/18 21:36 Temperature Pulse Rate 83 76 68 Respiratory Rate 22 10 L 8 L Blood Pressure 111/71 116/74 114/72 Pulse Oximetry 99 94 L 95 02/23/18 21:39 02/23/18 21:42 02/23/18 21:45 Temperature Pulse Rate 76 68 67 Respiratory Rate 14 3 L 0 L Blood Pressure 111/72 115/71 118/71 Pulse Oximetry 95 95 94 L 02/23/18 21:52 02/23/18 21:54 02/23/18 21:57 Temperature Pulse Rate 76 67 70 Respiratory Rate 14 7 L 10 L Blood Pressure 117/80 117/76 116/78 Pulse Oximetry 94 L 93 L 92 L 02/23/18 22:00 02/23/18 22:03 02/23/18 22:06 Temperature Pulse Rate 77 73 81 Respiratory Rate 10 L 4 L 25 H Blood Pressure 111/71 115/73 110/72 Pulse Oximetry 93 L 93 L 93 L 02/23/18 22:09 02/23/18 22:12 02/23/18 22:15 Temperature Pulse Rate 78 75 74 Respiratory Rate 10 L 7 L 0 L Blood Pressure 115/71 116/70 116/68 Pulse Oximetry 91 L 95 92 L 02/23/18 22:19 02/23/18 22:22 02/23/18 22:26 Temperature Pulse Rate 84 87 81 Respiratory Rate 24 23 27 H Blood Pressure 111/56 L 112/57 L 132/62 Pulse Oximetry 95 94 L 91 L 02/23/18 22:27 02/23/18 22:30 02/23/18 22:33 Temperature Pulse Rate 81 82 78 Respiratory Rate 20 14 18 Blood Pressure 120/73 113/68 114/70 Pulse Oximetry 94 L 02/23/18 22:36 02/23/18 23:39 02/23/18 23:42 Temperature Pulse Rate 80 Respiratory Rate 25 H 28 H Blood Pressure 114/67 114/80 Pulse Oximetry 96 02/23/18 23:45 02/23/18 23:48 02/23/18 23:51 Temperature Pulse Rate 72 68 68 Respiratory Rate 15 12 15 Blood Pressure 119/82 116/80 115/77 Pulse Oximetry 93 L 87 L 86 L 02/23/18 23:54 02/23/18 23:57 02/24/18 00:00 Temperature 98.6 F Pulse Rate 71 76 70 Respiratory Rate 23 24 23 Blood Pressure 115/75 117/79 114/77 Pulse Oximetry 90 L 95 90 L 02/24/18 00:03 02/24/18 00:06 02/24/18 00:09 Temperature Pulse Rate 76 67 73 Respiratory Rate 26 H 22 20 Blood Pressure 116/77 116/77 117/75 Pulse Oximetry 90 L 90 L 93 L 02/24/18 00:12 02/24/18 00:15 02/24/18 00:18 Temperature Pulse Rate 69 69 74 Respiratory Rate 23 22 23 Blood Pressure 116/72 117/76 118/78 Pulse Oximetry 90 L 90 L 90 L 02/24/18 00:21 02/24/18 00:24 02/24/18 00:27 Temperature Pulse Rate 69 71 76 Respiratory Rate 23 21 13 Blood Pressure 119/76 116/74 118/77 Pulse Oximetry 87 L 89 L 83 L 02/24/18 00:30 02/24/18 00:33 02/24/18 00:36 Temperature Pulse Rate 67 64 66 Respiratory Rate 21 21 21 Blood Pressure 120/81 120/78 121/82 Pulse Oximetry 86 L 85 L 88 L 02/24/18 00:39 02/24/18 00:45 02/24/18 00:48 Temperature Pulse Rate 68 65 76 Respiratory Rate 23 16 17 Blood Pressure 125/81 120/78 114/78 Pulse Oximetry 88 L 81 L 87 L 02/24/18 00:51 02/24/18 00:54 02/24/18 00:57 Temperature Pulse Rate 66 71 69 Respiratory Rate 22 19 25 H Blood Pressure 119/81 122/83 120/81 Pulse Oximetry 85 L 99 92 L 02/24/18 01:00 02/24/18 02:00 02/24/18 02:48 Temperature Pulse Rate 66 75 71 Respiratory Rate 24 23 Blood Pressure 114/70 Pulse Oximetry 93 L 02/24/18 02:51 02/24/18 02:54 02/24/18 02:57 Temperature Pulse Rate 74 74 79 Respiratory Rate 21 27 H 27 H Blood Pressure 116/71 117/75 118/74 Pulse Oximetry 02/24/18 03:00 02/24/18 03:03 02/24/18 03:06 Temperature Pulse Rate 70 76 70 Respiratory Rate 19 19 18 Blood Pressure 119/76 121/76 122/77 Pulse Oximetry 97 97 97 02/24/18 03:10 02/24/18 03:12 02/24/18 03:15 Temperature Pulse Rate 72 68 70 Respiratory Rate 20 15 11 L Blood Pressure 110/88 116/90 121/88 Pulse Oximetry 97 97 98 02/24/18 03:18 02/24/18 03:21 02/24/18 03:24 Temperature Pulse Rate 70 67 71 Respiratory Rate 16 14 15 Blood Pressure 122/86 125/85 121/83 Pulse Oximetry 98 98 98 02/24/18 03:27 02/24/18 03:30 02/24/18 03:33 Temperature Pulse Rate 68 67 68 Respiratory Rate 19 15 15 Blood Pressure 122/79 121/80 121/78 Pulse Oximetry 97 97 96 02/24/18 03:36 02/24/18 03:39 02/24/18 03:42 Temperature Pulse Rate 75 82 70 Respiratory Rate 20 22 23 Blood Pressure 122/78 118/71 122/82 Pulse Oximetry 99 98 97 02/24/18 03:45 02/24/18 03:48 02/24/18 03:51 Temperature Pulse Rate 70 73 68 Respiratory Rate 24 24 8 L Blood Pressure 124/83 124/80 128/83 Pulse Oximetry 98 99 97 02/24/18 03:54 02/24/18 03:57 02/24/18 03:58 Temperature Pulse Rate 72 69 Respiratory Rate 22 21 25 H Blood Pressure 123/86 121/81 Pulse Oximetry 97 97 98 02/24/18 04:00 02/24/18 04:03 02/24/18 04:06 Temperature 98.8 F Pulse Rate 82 70 72 Respiratory Rate 25 H 32 H 25 H Blood Pressure 123/88 121/81 126/82 Pulse Oximetry 98 100 99 02/24/18 04:07 02/24/18 04:09 02/24/18 04:12 Temperature Pulse Rate 69 76 78 Respiratory Rate 24 28 H 23 Blood Pressure 123/80 117/85 Pulse Oximetry 98 99 02/24/18 04:15 02/24/18 04:18 02/24/18 04:21 Temperature Pulse Rate 82 83 91 H Respiratory Rate 27 H 14 25 H Blood Pressure 116/79 120/81 118/81 Pulse Oximetry 98 98 96 02/24/18 04:24 02/24/18 04:27 02/24/18 04:30 Temperature Pulse Rate 88 91 H 90 Respiratory Rate 36 H 30 H 31 H Blood Pressure 123/75 120/77 127/76 Pulse Oximetry 89 L 93 L 94 L 02/24/18 04:33 02/24/18 04:36 02/24/18 04:41 Temperature Pulse Rate 90 96 H 82 Respiratory Rate 24 31 H 22 Blood Pressure 126/74 139/99 H 140/91 H Pulse Oximetry 96 95 89 L 02/24/18 05:00 02/24/18 06:00 02/24/18 07:00 Temperature Pulse Rate 84 85 83 Respiratory Rate 22 16 17 Blood Pressure Pulse Oximetry 85 L 95 95 02/24/18 07:34 02/24/18 08:00 02/24/18 08:04 Temperature 100.7 F H Pulse Rate 78 87 Respiratory Rate 31 H 22 32 H Blood Pressure 145/107 H 145/107 H Pulse Oximetry 96 95 98 02/24/18 09:00 02/24/18 09:05 02/24/18 10:00 Temperature Pulse Rate 93 H 95 H 97 H Respiratory Rate 36 H 29 H 23 Blood Pressure 171/83 H 125/60 Pulse Oximetry 94 L 02/24/18 11:00 02/24/18 11:30 02/24/18 12:00 Temperature 97.9 F Pulse Rate 81 73 Respiratory Rate 17 24 21 Blood Pressure 123/70 136/81 Pulse Oximetry 97 96 97 02/24/18 13:00 02/24/18 14:00 02/24/18 15:00 Temperature Pulse Rate 78 73 58 L Respiratory Rate 16 21 19 Blood Pressure 138/80 151/108 H 147/79 H Pulse Oximetry 100 97 02/24/18 15:26 02/24/18 16:00 Temperature 97.8 F Pulse Rate 66 85 Respiratory Rate 18 24 Blood Pressure 134/66 Pulse Oximetry 97 Intake & Output 02/23/18 02/24/18 02/24/18 18:59 06:59 18:59 Intake Total 3384 / 3384 2788 / 2788 2250 / 2250 Output Total 4025 / 4025 3650 / 3650 4075 / 4075 Balance -641 / -641 -862 / -862 -1825 / -1825 Weight 54 kg Intake: IV 2380 / 2380 2350 / 2350 2250 / 2250 Precedex Inj 1,000 MCG In NS 500 / 500 250 / 250 250 / 250 Inj 240 ML @ 0.2 MCG/KG/HR 4.27 mls/hr IV.CONT TITRATE PRN Rx# :[id number] Diprivan 1000 mg/100 ml Inj 1, 280 / 280 300 / 300 300 / 300 000 mg In 100 ml @ 5 MCG/KG/MIN 2.604 mls/hr IV.CONT TITRATE PRN Rx#:[id number] Azactam Inj 2 GM In NS Inj 100 200 / 200 100 / 100 200 / 200 ML @ 200 mls/hr IV.SIG Q8H EFREN Rx#:[id number] D5W/Normal Saline Inj 1,000 ML 800 / 800 950 / 950 1000 / 1000 @ 75 mls/hr IV.SIG .[id number] EFREN Rx#:[id number] Zyvox 600 mg Premix 300 ML @ 300 / 300 300 / 300 300 / 300 300 mls/hr IV.SIG Q12H EFREN Rx#: [id number] Mycamine Inj 150 MG In NS Inj 100 / 100 100 ML @ 100 mls/hr IV.SIG Q24H EFREN Rx#:[id number] Flagyl 500 MG Inj 100 ML @ 100 200 / 200 200 / 200 200 / 200 mls/hr IV.SIG Q6H EFREN Rx#: [id number] Tube Feeding 204 / 204 238 / 238 Tube Irrigant 60 / 60 Water Bolus Amount 100 / 100 Other 400 / 400 40 / 40 Rbc As-3 Leukoreduced Unit 400 / 400 [id number] Intake (Blood Product) Amt 400 / 400 Rbc As-3 Leukoreduced Unit 400 / 400 [id number] Output: Urine 4025 / 4025 3650 / 3650 4075 / 4075 Other: Other Intake Source Saline Solution Date of Last Bowel Movement 02/22/18 02/22/18 02/24/18 # Bowel Movements 1 Result Diagrams: 02/23/18 20:40 02/24/18 12:37 Laboratory Results: Laboratory Results - last 24 hr 02/23/18 02/23/18 02/23/18 10:34 19:40 20:40 Hgb 8.7 L Hct 25.8 L Sodium Potassium Chloride Carbon Dioxide Anion Gap BUN Creatinine Estimated GFR POC Glucose 111 H Random Glucose Calcium Total Bilirubin AST ALT Alkaline Phosphatase Total Protein Albumin MTS Gel Crossmatch See Detail 02/23/18 02/24/18 02/24/18 23:59 04:03 08:18 Hgb Hct Sodium Potassium Chloride Carbon Dioxide Anion Gap BUN Creatinine Estimated GFR POC Glucose 116 H 96 98 Random Glucose Calcium Total Bilirubin AST ALT Alkaline Phosphatase Total Protein Albumin MTS Gel Crossmatch 02/24/18 02/24/18 02/24/18 12:26 12:37 16:38 Hgb Hct Sodium 147 H Potassium 3.5 Chloride 110 H Carbon Dioxide 27.6 Anion Gap 9 BUN 8 Creatinine 0.58 L Estimated GFR Greater than 89 POC Glucose 119 H 107 Random Glucose 107 H Calcium 8.1 L Total Bilirubin 0.3 AST 27 ALT 16 Alkaline Phosphatase 98 Total Protein 5.5 L Albumin 1.7 L MTS Gel Crossmatch Culture Results: Microbiology 02/17/18 13:20 Acid Fast Bacilli Smear - Final Bronchial Washings - Right Upper Lobe No acid fast bacilli seen Mycobacterial Culture - Preliminary No growth in 1 week 02/21/18 10:44 Aerobic Blood Culture - Preliminary Blood - Peripheral No growth in 3 days Anaerobic Blood Culture - Preliminary No growth in 3 days 02/21/18 10:23 Aerobic Blood Culture - Preliminary Blood - Peripheral No growth in 3 days Anaerobic Blood Culture - Preliminary No growth in 3 days 02/21/18 09:30 Gram Stain - Final Sputum - Endotracheal Sputum Culture - Final Heavy growth normal respiratory pepito 02/17/18 13:20 Fungal Smear - Final Bronchial Washings - Right Upper Lobe No fungal elements seen Fungal Culture - Preliminary Imaging Studies: Impressions Venous Doppler Study 02/24/18 00:00 CONCLUSION: 1. There is occlusive thrombus within the proximal right basilic vein. 2. The remaining veins in the right upper extremity are patent. Medications: Active Medications Generic Name Dose Route Start Last Admin Trade Name Freq PRN Reason Stop Dose Admin Acetaminophen 650 mg 01/28/18 15:00 02/21/18 03:39 Tylenol Liq NG/OG 650 mg Q6H PRN Administration FEVER Albuterol 2.5 mg 01/28/18 10:35 02/22/18 12:26 Albuterol Neb (Prn) NEB 2.5 mg Q2HR NEB PRN Administration SHORTNESS OF BREATH/WHEEZING Albuterol 1 ampul 02/17/18 16:00 02/24/18 15:26 Duoneb Neb (Efren) NEB 1 ampul Q6HR NEB EFREN Administration Artificial Tears 1 drop 02/09/18 21:00 02/24/18 09:02 Refresh Tears 0.5% Opth Drops EACH EYE 1 drop BID EFREN Administration Aspirin 325 mg 01/30/18 09:00 02/24/18 08:59 Aspirin PO 325 mg DAILY EFREN Administration Chlorhexidine Gluconate 15 ml 01/28/18 20:00 02/24/18 08:58 Peridex 0.12% Oral Kit OROPHARYNG 15 ml BID@0800,2000 EFREN Administration Clonidine HCl 0.1 mg 02/16/18 09:00 02/24/18 09:00 Catapres PO 0.1 mg Q12HR EFREN Administration Dextrose 50 ml 01/28/18 10:39 01/30/18 04:15 D50w Vial IV.PUSH 50 ml UNSCH PRN Administration PER HYPOGLYCEMIA PROTOCOL Famotidine 20 mg 02/14/18 21:00 02/24/18 09:02 Pepcid G-TUBE 20 mg BID EFREN Administration Furosemide 20 mg 02/23/18 11:00 02/24/18 16:09 Lasix Inj IV.PUSH 20 mg Q6H EFREN Administration Haloperidol 2 mg 02/20/18 12:30 02/24/18 09:27 Haldol PO 2 mg BID EFREN Administration Heparin Sodium (Porcine) 5,000 units 02/06/18 21:00 02/24/18 09:00 Heparin Inj SQ 5,000 units Q12HR EFREN Administration Magnesium Sulfate Inj 2 gm/ 100 mls @ 50 mls/hr 02/12/18 03:02 02/15/18 14:21 Sodium Chloride IV.SIG Infused UNSCH PRN Infusion For Magnesium 1.2 - 1.6 mg/dL Potassium Chloride 20 meq in 100 mls @ 50 mls/hr 02/12/18 03:02 02/22/18 20: 52 Kcl 20 Meq Premix Inj IV.SIG Infused Q2H PRN Infusion For Potassium 3.3 - 3.5 mEq/L Potassium Chloride 20 meq in 100 mls @ 50 mls/hr 02/12/18 03:02 02/12/18 10: 45 Kcl 20 Meq Premix Inj IV.SIG Infused Q2H PRN Infusion For Potassium 2.8 - 3.2 mEq/L Metronidazole/Sodium Chloride 100 mls @ 100 mls/hr 02/15/18 14:00 02/24/18 15 :45 Flagyl 500 Mg Inj IV.SIG Infused Q6H EFREN Infusion Dexmedetomidine HCl 1,000 mcg/ 250 mls @ 4.27 mls/hr 02/19/18 21:08 02/24/18 11:20 Sodium Chloride IV.CONT 1.5 mcg/kg/hr TITRATE PRN 32.06 mls/hr Per Protocol Administration Protocol 0.2 MCG/KG/HR Propofol 1,000 mg in 100 mls @ 2.604 mls/hr 02/21/18 10:08 02/24/18 16:10 Diprivan 1000 Mg/100 Ml Inj IV.CONT 50 mcg/kg/min TITRATE PRN 26.04 mls/hr Per Protocol Administration Protocol 5 MCG/KG/MIN Linezolid 300 mls @ 300 mls/hr 02/21/18 13:00 02/24/18 14:00 Zyvox 600 Mg Premix IV.SIG Infused Q12H EFREN Infusion Micafungin Sodium 150 mg/ 100 mls @ 100 mls/hr 02/21/18 15:00 02/24/18 16:08 Sodium Chloride IV.SIG 100 mls/hr Q24H EFREN Administration Aztreonam 2 gm/ Sodium 100 mls @ 200 mls/hr 02/21/18 14:00 02/24/18 15:00 Chloride IV.SIG Infused Q8H EFREN Infusion Dextrose/Sodium Chloride 1,000 mls @ 75 mls/hr 02/22/18 10:45 02/24/18 16:09 D5w/Normal Saline Inj IV.SIG 75 mls/hr .[id number] EFREN Administration Insulin Aspart 0 unit 01/29/18 16:00 02/24/18 16:48 Novolog Insulin Correctional Sugar Inj SQ Not Given Q4HR [facility] Protocol Levetiracetam 500 mg 02/03/18 21:00 02/24/18 09:01 Keppra NG/OG 500 mg BID EFREN Administration Magnesium Oxide 800 mg 02/12/18 03:02 02/12/18 09:55 Mag-Ox PO 800 mg UNSCH PRN Administration For Magnesium 1.2 - 1.6 mg/dL Magnesium Oxide 400 mg 02/21/18 09:00 02/24/18 09:01 Mag-Ox PO 400 mg BID EFREN Administration Multivitamins 1 tab 02/04/18 11:00 02/24/18 09:02 Theragran NG/OG 1 tab DAILY EFREN Administration Ondansetron HCl 4 mg 01/28/18 10:35 02/19/18 08:46 Zofran Inj IV.PUSH 4 mg Q6H PRN Administration NAUSEA OR VOMITING Oxycodone HCl 15 mg 02/17/18 14:00 02/24/18 14:00 Roxicodone Intensol Liq PO 15 mg Q6H EFREN Administration Potassium Bicarb/Potassium Chloride 25 meq 02/21/18 10:30 02/24/18 09:01 K-Lyte Cl Eff NG/OG 25 meq BID EFREN Administration Quetiapine Fumarate 300 mg 02/20/18 21:00 02/24/18 09:02 Seroquel NG/OG 300 mg BID EFREN Administration Senna/Docusate Sodium 1 tab 01/28/18 21:00 02/24/18 09:02 Hiral-Colace PO 1 tab BID EFREN Administration Sennosides 17.2 mg 01/28/18 10:35 01/31/18 08:30 Senokot PO 17.2 mg Q12H PRN Administration Moderate Constipation Sodium Chloride 2 ml 01/28/18 21:00 02/24/18 09:01 Ns Flush IV.FLUSH 2 ml BID EFREN Administration Sodium Chloride 2 ml 01/28/18 14:54 02/05/18 09:19 Ns Flush IV.FLUSH 2 ml PRN PRN Administration FLUSH AFTER USING IV ACCESS Sterile Water 100 ml 02/17/18 13:00 02/24/18 17:14 Free Water G-TUBE 100 ml Q6HR EFREN Administration Thiamine HCl 100 mg 02/04/18 21:00 02/24/18 09:02 Vitamin B1 PO 100 mg BID EFREN Administration Valproate Sodium 250 mg 02/13/18 21:00 02/24/18 09:00 Depakene Liq PO 250 mg BID EFREN Administration Vancomycin HCl 250 mg 02/15/18 13:00 02/24/18 17:14 Vancomycin Po PO 250 mg QID EFREN Administration Objective Remarks: GENERAL: young ill patient. SKIN: Warm and dry. HEAD: Normocephalic. EYES: No scleral icterus. No injection or drainage. NECK: Trach LYMPHATIC: No adenopathy. CARDIOVASCULAR: Regular rate and rhythm without murmurs. RESPIRATORY: Breath sounds equal bilaterally. No accessory muscle use. GASTROINTESTINAL: Abdomen soft, non-tender, nondistended. EXTREMITIES: No cyanosis, or edema. MUSCULOSKELETAL: Adequate muscle tone. NEUROLOGICAL: on vent sedated. Assessment/Plan - Plan 32-year-old male with history of EtOH, seizures, noncompliant with his medications admitted with nausea vomiting and diarrhea. Patient subsequently had a cardiac arrest and was successfully resuscitated. He now has tracheostomy tube. He is being treated for Clostridium difficile. Hematology consulted for thrombocytosis. 1. Hemoglobin 6.8 today. 1 unit of PRBCs have been ordered by attending. 2. No treatment necessary for thrombocytosis. Await [place] 2 results which is unlikely to be positive. Pending 3. Continue treatment for Clostridium difficile; supportive care. 02/24/18 Plat are coming down. He has reactive thrombocytosis. nothing else to add validation intern back if needed.
[2018-02-25] MEDS: Oral Hygiene Kit OROPHARYNG SCH ×4 (01:54→17:54)
[2018-02-25] MEDS: Insulin NovoLOG Aspart Correctional Sugar Inj SQ SCH ×6 (01:54→21:08)
--- NOTE | 2018-02-25 03:37 | XR ---
EXAM DATE: 02/25/2018 6:00 AM EDT AGE/SEX: 32 years / Male INDICATIONS: shortness of breath, possible pulmonary disease. CLINICAL DATA: This is the patient's subsequent encounter. Patient reports that signs and symptoms h ave been present for 3 weeks and indicates a pain score of Nonresponsive. MEDICAL/SURGICAL HISTORY: Gastroesophageal reflux disease. Pancreatitis. Seizures. ETOH. In guinal hernia repair. COMPARISON: [facility] – [place], CHEST 1V SINGLE AP, 02/23/2018. . FINDINGS: There is a tracheostomy tube in place. The heart size is normal. There is mild increased density seen throughout the right lung and at the periphery of the left lung. A significant effusion is not clear ly seen. CONCLUSION: Mild fairly diffuse consolidation likely related to underlying processes such as edema. Electronically signed by: Alejandro Hogan MD 02/25/2018 3:35 AM EDT
[2018-02-25] MEDS: Propofol 1000 mg/100 ml Inj 1,000 MG/100 ML BOTTLE IV.CONT PRN ×2 (04:06→08:51)
[2018-02-25] MEDS: Dexmedetomidine Inj 1,000 MCG in Sodium Chlor 0.9% Inj 240 ML IV.CONT PRN ×2 (04:07→21:53)
[2018-02-25] MEDS: Aztreonam Inj 2 GM in Sodium Chloride 0.9% Inj 100 ML IV.SIG SCH ×3 (05:04→22:18)
[2018-02-25 05:17] LABS: Alanine Aminotransferase 15 U/L (12-78); Albumin 1.6 g/dL (3.4-5.0); Anion Gap 10 meq/L (5-15); Aspartate Aminotransferase 28 U/L (15-37); Blood Urea Nitrogen 9 mg/dL (7-18); Calcium 8.1 mg/dL (8.5-10.1); Carbon Dioxide 25.6 meq/L (21.0-32.0); Chloride 109 meq/L (98-107); Glomerular Filtration Rate Greater Than 89 mL/min (>89); Glucose,Random 112 mg/dL (74-106); Magnesium 1.3 mg/dL (1.5-2.5); Potassium 3.8 meq/L (3.5-5.1); Sodium 145 meq/L (136-145)
[2018-02-25 05:19] LABS: Alkaline Phosphatase 106 U/L (45-117); Total Protein 5.5 g/dL (6.4-8.2)
[2018-02-25] MEDS: Dextrose 5%/NaCl 0.9% Inj 1,000 ML IV.SIG SCH (08:34)
[2018-02-25] MEDS: Aspirin 325 MG Tablet PO SCH (08:35)
[2018-02-25] MEDS: Chlorhexidine 0.12% Oral Kit 15 ML UDC OROPHARYNG SCH ×2 (08:35→21:09)
[2018-02-25] MEDS: Heparin - SQ 10,000 UNITS/ML Vial SQ SCH ×2 (08:36→21:19)
[2018-02-25] MEDS: Potassium Chloride 25 MEQ Effervescent Tablet NG/OG SCH ×2 (08:36→21:18)
[2018-02-25] MEDS: Magnesium Oxide 400 MG Tablet PO SCH ×2 (08:36→21:19)
[2018-02-25] MEDS: levETIRAcetam 500 MG Tablet NG/OG SCH ×2 (08:36→21:19)
[2018-02-25] MEDS: Famotidine 20 MG Tablet G-TUBE SCH ×2 (08:36→21:20)
[2018-02-25] MEDS: Carboxymethylcellulose 0.5% Opth Drops 15 ML Bottle EACH EYE SCH ×2 (08:37→21:21)
[2018-02-25] MEDS: Senna/Docusate Sodium 8.6/50 MG Tablet PO SCH ×2 (08:37→21:21)
--- NOTE | 2018-02-25 10:44 | P.PNCC ---
Subjective Subjective Remarks/Hospital Course: This is a 32-year-old male. Admission 01/28/2018. Past medical history includes seizure disorder/noncompliant with levetiracetam, previous EtOH sober for 4 weeks, anorexia, gastroesophageal reflux disease and chronic pancreatitis. Patient presented to [facility] 01/28/2018 with a two-day history of nausea vomiting and diarrhea. Patient's mother/discussed at bedside stated she had just had a "stomach flu" which she has currently recovered. Mom states that the patient has become fairly dehydrated is been having some cramping of his hands. She is worried that he is getting dehydrated and his potassium might begin low. He was unable to tolerate a banana so she gave him some potassium pills p.o. which she also did not tolerate and threw up. Sober 4 weeks according to mother. Patient was noted to have a low potassium at 2.0. Creatinine of 4.0. This is in line with his previous hospitalizations for acute dehydration. Lipase was slightly elevated. Patient does have a history of seizure disorder which is not compliant with levetiracetam. ED physician was called into room because the RN believed he had a seizure. Patient was unresponsive. Mother states this was not like any seizure that she had seen. Pulses not palpable therefore CPR was initiated. Initial rhythm was V. fib. Patient received amiodarone, lidocaine, epinephrine, bicarbonate, magnesium during the 35 minute code with return of spontaneous circulation after 35 minutes. Pupils are about 9 mils bilaterally and 6. When I saw the patient patient was actively thrashing moving all 4 extremities spontaneously but not to command. Pupils are round 8 mm bilaterally and nonreactive. Brain CT revealed no acute findings. CT thorax revealed a left upper and lower lobe. CT abdomen pelvis pending at time of dictation. Likely, troponin pending. EKG revealed incomplete right bundle block with ST depression in the inferior and lateral leads. Cardiology consulted. They will evaluate after stat echocardiogram and troponins been completed. Potassium will be replaced pending [facility] 01/29: persistently in shock. following commands this AM. trop uptrended overnight and now > 40. on levo @ 10, vasopressin. bedside echo with persistence of his global severe LV systolic dysfunction. IVC dilated without respiratory variation. initially attempted therapeutic hypothermia, but became arrhythmogenic and neurologic exam improved and now following commands, so hypothermia aborted. persistently hypokalemic and hypophosphatemic this AM. in addition, remains with severe metabolic alkalosis. 01/30: Troponin trending down, continues to have severe hypokalemia and metabolic alkalosis. Creatinine continues to trend up, only produced 200 cc of urine over the past 24 hours. 01/31: Patient seen by nephrology yesterday and given bumex, urine output dramatically increased, potassium improved with aggressive repletion, pressors now off and dobutamine at 5. 02/01: No issues overnight. Patient tolerated dobutamine at 2 yesterday, discontinued this morning. Switching propofol to precedex and would like to start SBTs today. Overall improved. 02/02: Tolerated switch to precedex yesterday and was on bipap 05/06 for several hours yesterday afternoon, placed back on AC overnight to avoid respiratory fatigue. 02/03: Patient had no overnight events, tolerated SBT x 5 hours yesterday. Significantly agitated this morning during sedation vacation. 02/04: Patient still struggles with agitation when we lighten sedation. 02/05: Temp 103F this morning, no obvious source of infection. Needs to have PICC line placed today. 02/06: reintubated yesterday. overnight persistently febrile. this morning appears in distress- tachypneic on the ventilator, acidotic. potassium up to 5.8 despite medical management. bedside echo with improving LVEF and completely collapsed IVC. no pericardial effusion. lung ultrasound without effusions. 02/07: Remains sedated, orally intubated on mechanical ventilation. On propofol fentanyl and Versed drips. Transfuse 1 unit PRBCs earlier today for drop in hemoglobin. 02/08: Remains sedated, orally intubated on mechanical ventilation. On propofol fentanyl and Versed drips. Awaiting tracheostomy which is scheduled for later today. 02/09: Overnight, new onset of maculopapular rash noted. Noted discontinuation of cefepime 02/08. Received 1 dose diphenhydramine overnight. 02/10: Afebrile. Discussed with mom at bedside. Follows commands weakly bilateral upper and lower extremities. Diffuse macular papular rash improved lower extremities. Appears stable and upper thorax. On Famotidine, methylprednisolone and diphenhydramine 02/11: Afebrile. Opens eyes to voice. Following commands weakly bilateral upper lower extremity. On propofol 50 roxanne grams per kilogram, a fentanyl drip at 250 mg of midazolam drip at 6 mg an hour due to "agitation" overnight. Will wean. Increased quetiapine to 100 twice daily. 02/12: remains on vent at this time, sedated. Follows commands all extremities weakly. RN states that she increase her sedation as the patient was tachycardic and hypotensive. I will start labetalol 200 mg twice daily and attempt sedation wean. 02/13: T-max 101.5. Remains on fentanyl drip at 250 roxanne grams an hour, midazolam drip at 7 mg an hour and fentanyl drip at 250 roxanne grams an hour. Started labetalol 200 mg twice a yesterday but now hypotensive. Tube feeds currently at 10 cc an hour. 02/14: T-max 100.3. Remains on fentanyl drip at 250 roxanne grams an hour, midazolam drip at 7 mg and fentanyl drip 250 mcg an hour. 2 feedings currently at [address] pulmonary angiogram today per cardiology request. Will discuss some other possible transfer to select hospital today. 02/15: T-max 100.3. Tube feedings currently at [address] pulmonary angiogram revealed right upper lobe infiltrate/new. No pulmonary embolism. Opens eyes to voice. 02/16: T-max 100.7. Arousable to voice and close his eyes. Noted increasing platelets currently 876. Will check iron studies and peripheral smear. Again continued difficulty weaning off IV sedation due to severe agitation. 02/17: Remains febrile. Plan for bronchoscopy right upper lobe infiltrate. Please continue to increase. Tolerating tube feeds at 50 cc an hour. Positive BM. 02/18: T-max 103.2. Currently afebrile. Bronchoscopy yesterday Gram stain negative. Tube feeds at goal. 02/19: T-max 101.4. Currently sitting in chair on trach collar on dexmedetomidine drip at 1.5 mcg/kg/h SUBJECTIVE: 02/20: Last fever at noon yesterday. Currently afebrile. Currently on dexmedetomidine drip at 1.3 mg/kg/h. Increasing quetiapine to 300 mg twice daily. Transfusing 1 unit PRBCs today. Replace potassium magnesium see orders. Agitated. Out of bed to chair yesterday on trach collar currently. 02/21: Acute change in status overnight became acutely short of breath was placed back on the ventilator. Chest x-ray done today a.m. shows diffuse worsening bilateral pulmonary infiltrates pulmonary edema/ARDS. Recent bronch and blood cultures have been negative. Appears to be developing severe sepsis with probable ARDS. Received 60 mg IV Lasix overnight 02/22: Remains on the ventilator tachypneic on CPAP. WBC count has improved but chest x-ray with persistent bilateral infiltrates. I will restart IV Lasix for aggressive diuresis monitoring creatinine. On broad-spectrum antibiotics per ID however cultures are pending at this time. Abdominal x-ray after Gastrografin injection did not show any leakage into the peritoneum. Continue medical management for sepsis closely monitor this pancreatic pseudocyst. PEG tube to be replaced today 02/23: Clinically improving, WBC count normal. Hemoglobin 7.1 will transfuse 1 unit PRBC. GI planning to replace dislodged G-tube today. Clinically sepsis seems to be improving. Chest x-ray shows slight improvement in bilateral infiltrates. I will increase Lasix to 20 mg every 6 hours 02/24: Breathing more comfortably on vent support. Urine output excellent more than 7 L with diuresis. We will follow-up chest x-ray in a.m. PEG tube replaced yesterday, start tube feeds if cleared by GI 02/25: Remains on full ventilator support. Sedated with propofol and Precedex. Chest x-ray shows interval improvement, continues to have excellent diuresis with Lasix 7.5 L approximately out. Creatinine remains stable Objective Vital Signs / I&O: Vital Signs 02/24/18 11:00 02/24/18 11:30 02/24/18 12:00 Temperature 97.9 F Pulse Rate 81 73 Respiratory Rate 17 24 21 Blood Pressure 123/70 136/81 Pulse Oximetry 97 96 97 02/24/18 13:00 02/24/18 14:00 02/24/18 15:00 Temperature Pulse Rate 78 73 58 L Respiratory Rate 16 21 19 Blood Pressure 138/80 151/108 H 147/79 H Pulse Oximetry 100 97 02/24/18 15:26 02/24/18 16:00 02/24/18 17:00 Temperature 97.8 F Pulse Rate 66 85 79 Respiratory Rate 18 24 24 Blood Pressure 134/66 136/74 Pulse Oximetry 97 02/24/18 18:00 02/24/18 19:00 02/24/18 19:50 Temperature Pulse Rate 60 62 Respiratory Rate 20 19 33 H Blood Pressure 140/76 153/91 H Pulse Oximetry 97 02/24/18 20:00 02/24/18 20:18 02/24/18 21:00 Temperature 99.1 F Pulse Rate 75 82 87 Respiratory Rate 31 H 33 H 25 H Blood Pressure 156/79 H 143/66 H Pulse Oximetry 02/24/18 22:00 02/24/18 22:30 02/24/18 23:00 Temperature Pulse Rate 67 67 Respiratory Rate 21 20 22 Blood Pressure 116/58 L 123/67 Pulse Oximetry 97 02/25/18 00:00 02/25/18 01:00 02/25/18 01:18 Temperature Pulse Rate 77 62 Respiratory Rate 21 19 16 Blood Pressure 123/67 132/80 Pulse Oximetry 97 02/25/18 02:00 02/25/18 03:00 02/25/18 04:00 Temperature Pulse Rate 63 74 59 L Respiratory Rate 8 L 21 19 Blood Pressure 144/84 H 140/65 140/83 Pulse Oximetry 98 97 02/25/18 04:09 02/25/18 04:46 02/25/18 06:00 Temperature Pulse Rate 59 L 70 Respiratory Rate 19 19 Blood Pressure 140/83 Pulse Oximetry 97 97 02/25/18 08:00 02/25/18 08:14 02/25/18 10:00 Temperature 98.1 F Pulse Rate 54 L 60 64 Respiratory Rate 20 18 Blood Pressure 151/77 H Pulse Oximetry 96 Intake & Output 02/24/18 02/25/18 02/25/18 18:59 06:59 18:59 Intake Total 2613 / 2613 2948 / 2948 100 / 100 Output Total 5475 / 5475 2525 / 2525 Balance -2862 / -2862 423 / 423 100 / 100 Weight 78.5 kg Intake: IV 2250 / 2250 2480 / 2480 100 / 100 Precedex Inj 1,000 MCG In NS 250 / 250 500 / 500 Inj 240 ML @ 0.2 MCG/KG/HR 4.27 mls/hr IV.CONT TITRATE PRN Rx# :[id number] Diprivan 1000 mg/100 ml Inj 1, 300 / 300 180 / 180 100 / 100 000 mg In 100 ml @ 5 MCG/KG/MIN 2.604 mls/hr IV.CONT TITRATE PRN Rx#:[id number] Azactam Inj 2 GM In NS Inj 100 200 / 200 200 / 200 ML @ 200 mls/hr IV.SIG Q8H GERMAINE Rx#:[id number] D5W/Normal Saline Inj 1,000 ML 1000 / 1000 1000 / 1000 @ 75 mls/hr IV.SIG .[id number] GERMAINE Rx#:[id number] Zyvox 600 mg Premix 300 ML @ 300 / 300 300 / 300 300 mls/hr IV.SIG Q12H GERMAINE Rx#: [id number] Mycamine Inj 150 MG In NS Inj 100 / 100 100 ML @ 100 mls/hr IV.SIG Q24H GERMAINE Rx#:[id number] Flagyl 500 MG Inj 100 ML @ 100 200 / 200 200 / 200 mls/hr IV.SIG Q6H GERMAINE Rx#: [id number] Tube Feeding 363 / 363 268 / 268 Tube Irrigant 200 / 200 Output: Urine 5475 / 5475 2024 / 2024 Stool 500 / 500 Other: # Incontinent Voids 2 Date of Last Bowel Movement 02/24/18 02/24/18 02/24/18 # Bowel Movements 1 1 Result Diagrams: 02/23/18 20:40 02/25/18 04:19 Objective Remarks: GENERAL: 32-year-old male currently on PRVC via tracheostomy 8.0 Shiley HEENT: NCAT, pupils are equal round react about 3 mm bilaterally. Extraocular muscles are intact. NECK: Trachea midline. Tracheostomy site is clean dry and intact CHEST: Bilateral coarse crackles and rhonchi. PRVC CARDIOVASCULAR: RRR. S1, S2 no S4. Without murmur ABDOMEN: Soft, mild tenderness on palpation, new PEG tube site is clean dry : Positive scrotal edema MUSCULOSKELETAL: Warm and well perfused, maculopapular rash on thorax, bilateral upper and lower extremities resolving. 1+ bilateral upper and lower extremity peripheral edema NEUROLOGICAL: Follows commands by squeezing bilateral upper and bilateral lower extremities weakly.Talks over trach. No obvious focal deficits Assessment and Plan - Assessment and Plan Plan: Neuro/Psych: Seizure disorder NOS History of EtOH sober 4 -6weeks History of anorexia/bulimia Acute metabolic encephalopathy Currently on dexmedetomidine and propofol drips for vent synchrony. Goal of RASS -2 Discontinue propofol to facilitate CPAP/T-piece Continue levetiracetam 500 BID (home dose) Quetiapine 300 twice daily. Oxycodone liquid 15 mg every 6 hours. Valproic acid 250 milligrams twice daily Patient has a previous history of heavy EtOH abuse and bulimia as per mother Continue thiamine 100 mg twice daily Low-dose clonidine 0.1 point milligrams twice daily.-Increase to 0.2 mg twice daily CV: In-hospital cardiac arrest V. fib arrest Cardiogenic Shock-- resolved Severe LV systolic dysfunction- resolving. Septic shock-resolving New onset pulmonary edema cardiogenic versus ARDS Evaluated by Dr. Townsend. No further cardiac workup planned at this time. Echo 01/28: severe LV systolic dysfunction, EF 20-25%. mildly depressed RV function. no valvular lesions. Echocardiogram 02/14 - the left ventricular systolic function normal with an estimated EF in the range of 60-65%. Normal left ventricular size. Wall thickness is normal. No RWMA 02/21: Repeat limited echo Moderately dilated left ventricle. LV ejection fraction 40%. Diuresis with IV Lasix 20 mg every q6h Continue daily ASA 325 mg daily. Continued PO thiamine supplementation for ? beriberi Resp: Acute hypoxic respiratory failure- recurrent. Probable ARDS Extensive bilateral infiltrates/pulmonary edema Developed severe pulmonary edema placed back on ventilator 02/[address] of the chest ordered to evaluate infiltrates and effusion-interval worsening of infiltrates and effusion Aggressive diuresis as above Extubated 02/05, reintubated 02/05 for respiratory failure. Status post tracheostomy by Dr. Serna 02/08 Albuterol/ipratropium aerosols every 6 hours with albuterol aerosols every 2 hours as needed for dyspnea Vent bundle, hob elevated. wean fio2 for goal spo2 > 90%. CT pulmonary angiogram revealed no o pulmonary embolus. See ID section for antibiotics Improving chest x-ray and oxygenation, start CPAP trials and T-piece today GI: Dislodged G-tube without evidence of peritoneal leak Pancreatic pseudocyst on CT 02/21 Elevated lipase/mild pancreatitis-- resolved Left hepatic pneumobilia history of chronic pancreatitis C. Difficile Colitis G-tube replaced 02/23, tolerating tube feeds Gastrografin study did not show any leakage into the peritoneum Discussed extensively on 02/21/[address] Watt and Dr. Horn Docusate serum/senna 1 tablet twice daily for bowel regimen when p.o. permitted Renal/ : Acute kidney injury-- resolved Creatinine peaked around 6, slowly normalized Nephrology has signed off IV Lasix as above, creatinine remains normal with aggressive diuresis Endo: Sliding scale insulin with Accu-Cheks to maintain euglycemia aspart insulin every 6 hours, Heme: Normocytic anemia Thrombocytosis Monitor CBC daily. Follow trends. s/p 1 unit of PRBC 02/23/2018 Restart aspirin Iron studies revealed low FE/TIBC and elevated ferritin. Likely this is reactive thrombocytosis. Currently on aspirin. ID: Severe sepsis-improving C. Difficile Colitis F/u sputum blood and urine culture from 02/21-negative to date Dislodged G-tube without evidence of peritonitis Blood cultures on 01/28 and 01/31 showed coagulase negative staph hominis, likely contamination Sputum, UA and influenza all NGTD Continue ABX per ID. Continue Zyvox, Micafungin, Aztreonam, also on IV Flagyl for and p.o. vancomycin for C. difficile. s/p zosyn for 7 days to treat pneumonia, d/c on 02/05 02/08 Oliva albicans Bronc samples 02/17 follow-up FEN: Hypomagnesia Hypopotassemia Replace electrolytes as clinically indicated. MSK PT evaluate and treat DERM: Diffuse macular papular rash likely secondary to cefepime resolved Treated with H2 viviana, diphenhydramine and methylprednisolone succinate. Added cefepime to adverse reaction with rash Access: - 01/29 - 02/05 right SC TLC - 02/04 Nance for urinary retention-DC if retention resolved Prophylaxis -GI-famotidine -DVT SCD/ Subcutaneous heparin Level 3 Patient condition critical with with severe hypoxemic respiratory failure, severe pulmonary edema requiring mechanical ventilatory support. Showing some signs of clinical improvement. Continue to monitor closely
--- NOTE | 2018-02-25 11:43 | P.PNID ---
Subjective Remarks: Patient in is awake and alert. No complaints. Currently being changed to T-piece No distress. Noted to have loose stools. Also on tube feedings. Temperature is lower. Culture has no growth. Occlusive thrombus of the right basilic vein noted on ultrasound. Status post tracheostomy 02/08/2018. This is a 32-year-old white male who presented to the emergency department with 2-day history of nausea, vomiting, and diarrhea. The patient ended up intubated after he went into ventricular fibrillation cardiac arrest and was resuscitated. He also was noted to have seizure activity. Antibiotics: IV Flagyl PO Vanco Aztreonam. Lines: Has peripheral IV Lines ok Past Medical History: PAST MEDICAL HISTORY: Alcohol abuse, gastroesophageal reflux disease, hernia, depression, pancreatitis, seizure disorder, left inguinal hernia repair. Allergies/Adverse Reactions: Allergies Sulfa (Sulfonamide Antibiotics) Allergy (Severe, Verified 10/11/17 07:56) hives cefepime Adverse Reaction (Intermediate, Verified 02/15/18 10:55) Rash, Generalized Objective Vital Signs 02/24/18 12:00 02/24/18 13:00 02/24/18 14:00 Temperature 97.9 F Pulse Rate 73 78 73 Respiratory Rate 21 16 21 Blood Pressure 136/81 138/80 151/108 H Pulse Oximetry 97 100 02/24/18 15:00 02/24/18 15:26 02/24/18 16:00 Temperature 97.8 F Pulse Rate 58 L 66 85 Respiratory Rate 19 18 24 Blood Pressure 147/79 H 134/66 Pulse Oximetry 97 97 02/24/18 17:00 02/24/18 18:00 02/24/18 19:00 Temperature Pulse Rate 79 60 62 Respiratory Rate 24 20 19 Blood Pressure 136/74 140/76 153/91 H Pulse Oximetry 02/24/18 19:50 02/24/18 20:00 02/24/18 20:18 Temperature 99.1 F Pulse Rate 75 82 Respiratory Rate 33 H 31 H 33 H Blood Pressure 156/79 H Pulse Oximetry 97 02/24/18 21:00 02/24/18 22:00 02/24/18 22:30 Temperature Pulse Rate 87 67 Respiratory Rate 25 H 21 20 Blood Pressure 143/66 H 116/58 L Pulse Oximetry 97 02/24/18 23:00 02/25/18 00:00 02/25/18 01:00 Temperature Pulse Rate 67 77 62 Respiratory Rate 22 21 19 Blood Pressure 123/67 123/67 132/80 Pulse Oximetry 02/25/18 01:18 02/25/18 02:00 02/25/18 03:00 Temperature Pulse Rate 63 74 Respiratory Rate 16 8 L 21 Blood Pressure 144/84 H 140/65 Pulse Oximetry 97 98 02/25/18 04:00 02/25/18 04:09 02/25/18 04:46 Temperature Pulse Rate 59 L 59 L Respiratory Rate 19 19 19 Blood Pressure 140/83 140/83 Pulse Oximetry 97 97 97 02/25/18 06:00 02/25/18 08:00 02/25/18 08:14 Temperature 98.1 F Pulse Rate 70 54 L 60 Respiratory Rate 20 18 Blood Pressure 151/77 H Pulse Oximetry 96 02/25/18 10:00 Temperature Pulse Rate 64 Respiratory Rate Blood Pressure Pulse Oximetry Intake & Output 02/24/18 02/25/18 02/25/18 18:59 06:59 18:59 Intake Total 2613 / 2613 2948 / 2948 100 / 100 Output Total 5475 / 5475 2525 / 2525 Balance -2862 / -2862 423 / 423 100 / 100 Weight 78.5 kg Intake: IV 2250 / 2250 2480 / 2480 100 / 100 Precedex Inj 1,000 MCG In NS 250 / 250 500 / 500 Inj 240 ML @ 0.2 MCG/KG/HR 4.27 mls/hr IV.CONT TITRATE PRN Rx# :[id number] Diprivan 1000 mg/100 ml Inj 1, 300 / 300 180 / 180 100 / 100 000 mg In 100 ml @ 5 MCG/KG/MIN 2.604 mls/hr IV.CONT TITRATE PRN Rx#:[id number] Azactam Inj 2 GM In NS Inj 100 200 / 200 200 / 200 ML @ 200 mls/hr IV.SIG Q8H GERMAINE Rx#:[id number] D5W/Normal Saline Inj 1,000 ML 1000 / 1000 1000 / 1000 @ 75 mls/hr IV.SIG .[id number] GERMAINE Rx#:[id number] Zyvox 600 mg Premix 300 ML @ 300 / 300 300 / 300 300 mls/hr IV.SIG Q12H GERMAINE Rx#: [id number] Mycamine Inj 150 MG In NS Inj 100 / 100 100 ML @ 100 mls/hr IV.SIG Q24H GERMAINE Rx#:[id number] Flagyl 500 MG Inj 100 ML @ 100 200 / 200 200 / 200 mls/hr IV.SIG Q6H GERMAINE Rx#: [id number] Tube Feeding 363 / 363 268 / 268 Tube Irrigant 200 / 200 Output: Urine 5475 / 5475 2024 / 2024 Stool 500 / 500 Other: # Incontinent Voids 2 Date of Last Bowel Movement 02/24/18 02/24/18 02/24/18 # Bowel Movements 1 1 02/21/18 10:44 Blood - Peripheral Aerobic Blood Culture - Preliminary No growth in 4 days 02/21/18 10:44 Blood - Peripheral Anaerobic Blood Culture - Preliminary No growth in 4 days 02/21/18 10:23 Blood - Peripheral Aerobic Blood Culture - Preliminary No growth in 4 days 02/21/18 10:23 Blood - Peripheral Anaerobic Blood Culture - Preliminary No growth in 4 days 02/17/18 13:20 Bronchial Washings - Right Upper Lobe Acid Fast Bacilli Smear - Final No acid fast bacilli seen 02/17/18 13:20 Bronchial Washings - Right Upper Lobe Mycobacterial Culture - Preliminary No growth in 1 week 02/21/18 09:30 Sputum - Endotracheal Gram Stain - Final 02/21/18 09:30 Sputum - Endotracheal Sputum Culture - Final Heavy growth normal respiratory pepito 02/17/18 13:20 Bronchial Washings - Right Upper Lobe Fungal Smear - Final No fungal elements seen 02/17/18 13:20 Bronchial Washings - Right Upper Lobe Fungal Culture - Preliminary Lab - Hematology Results 02/23/18 20:40 Hgb 8.7 L Hct 25.8 L Lab - Chemistry Results 02/23/18 02/23/18 02/23/18 11:40 16:33 19:40 Sodium Potassium Chloride Carbon Dioxide Anion Gap BUN Creatinine Estimated GFR POC Glucose 124 H 116 H 111 H Random Glucose Calcium Magnesium Total Bilirubin AST ALT Alkaline Phosphatase Total Protein Albumin 02/23/18 02/24/18 02/24/18 23:59 04:03 08:18 Sodium Potassium Chloride Carbon Dioxide Anion Gap BUN Creatinine Estimated GFR POC Glucose 116 H 96 98 Random Glucose Calcium Magnesium Total Bilirubin AST ALT Alkaline Phosphatase Total Protein Albumin 02/24/18 02/24/18 02/24/18 12:26 12:37 16:38 Sodium 147 H Potassium 3.5 Chloride 110 H Carbon Dioxide 27.6 Anion Gap 9 BUN 8 Creatinine 0.58 L Estimated GFR Greater than 89 POC Glucose 119 H 107 Random Glucose 107 H Calcium 8.1 L Magnesium Total Bilirubin 0.3 AST 27 ALT 16 Alkaline Phosphatase 98 Total Protein 5.5 L Albumin 1.7 L 02/24/18 02/25/18 02/25/18 21:28 01:25 04:19 Sodium 145 Potassium 3.8 Chloride 109 H Carbon Dioxide 25.6 Anion Gap 10 BUN 9 Creatinine 0.59 L Estimated GFR Greater than 89 POC Glucose 118 H 127 H Random Glucose 112 H Calcium 8.1 L Magnesium 1.3 L Total Bilirubin 0.2 AST 28 ALT 15 Alkaline Phosphatase 106 Total Protein 5.5 L Albumin 1.6 L 02/25/18 08:29 Sodium Potassium Chloride Carbon Dioxide Anion Gap BUN Creatinine Estimated GFR POC Glucose 119 H Random Glucose Calcium Magnesium Total Bilirubin AST ALT Alkaline Phosphatase Total Protein Albumin Imaging: ITS Impressions Gallbladder Ultrasound 01/30/18 00:00 CONCLUSION: 1. Unremarkable study. Abdomen/Bladder Ultrasound 01/30/18 15:17 CONCLUSION: 1. Negative renal sonogram. Head CT 02/06/18 03:50 CONCLUSION: 1. No acute intracranial abnormalities. . Head MRI 02/09/18 00:00 CONCLUSION: 1. Normal MRI of the brain. 2. Sinusitis and mastoiditis. Chest CTA 02/14/18 00:00 CONCLUSION: No evidence of pulmonary embolism. New right upper lobe pneumonia. Improving aeration on the left. Abdomen/Pelvis CT 02/20/18 00:00 CONCLUSION: 1. Interval development of 6 cm smooth margin low density cystic structure about the tail of the pancreas suggesting possible pseudocyst formation. 2. Percutaneous gastrostomy in place. No evidence of free intraperitoneal gas or free fluid. 3. Development of diffuse anasarca. 4. Interval development development of moderate-sized right pleural effusion and multifocal subsegmental areas of infiltrate in the right lower lung and decrease in size of left pleural effusion. Chest CT 02/21/18 00:00 CONCLUSION: 1. G-tube is within the anterior abdominal wall left rectus muscle with a sinus tract extending to the stomach. Findings called to Dr. Allen at the time of dictation. 2. Slight worsening of bilateral patchy airspace consolidation and bilateral effusions since February 20. 3. Tracheostomy in good position. Abdomen X-Ray 02/21/18 17:10 CONCLUSION: No peritoneal leakage identified with Gastrografin injection. Venous Doppler Study 02/24/18 00:00 CONCLUSION: 1. There is occlusive thrombus within the proximal right basilic vein. 2. The remaining veins in the right upper extremity are patent. Chest X-Ray 02/25/18 06:00 CONCLUSION: Mild fairly diffuse consolidation likely related to underlying processes such as edema. Physical Exam: PHYSICAL EXAMINATION: GENERAL: Awake. No distress. HEENT: Pupils are equal and reactive. No icterus. NECK: No adenopathy or swelling. LUNGS: Coarse rhonchi bilateral. HEART: Regular S1 and S2. No murmurs heard. ABDOMEN: Bowel sounds present. Soft. No tenderness. No mass palpable. EXTREMITIES: No clubbing, cyanosis. edema of the hands. Swelling at RUE is decreased. SKIN: No rash. NEUROLOGIC: Non focal. Assessment and Plan - Plan IMPRESSION: 1. Possible sepsis. However cultures have been negative. Previous staph coagulase positive blood culture felt to be contamination. Subsequent cultures negative. No clear source. 2. Skin rash. Likely drug related. Probably cefepime was associated. 3. Pneumonia. Suspect aspiration. 4. Status post cardiac arrest. 5. Acute respiratory failure. Patient now post tracheostomy. 6. Acute renal failure. Improved. 7. Seizure disorder. 8. Diarrhea. Questionable antibiotic associated. 9. Oliva UTI. 10. Leukocytosis improved. 11. C. difficile colitis. 12. Fever. ? etiology. Worsened lung infiltrates. may have peritonitis secondary to peg tube migrating into peritoneum. ? aspiration. Temp lower. RECOMMENDATIONS: 1. Continue Aztreonam. 2. Continue intravenous Flagyl for C. difficile. Day #10. 3. Continue p.o. vancomycin for C. difficile. Day #10. 4. Monitor temp and WBC. 5. Monitor clinical status.
[2018-02-25 11:49] LABS: Hematocrit 27.5 % (39.0-51.0); Hemoglobin 9.2 gm/dL (13.0-17.0); Mean Corpuscular HGB Conc 33.5 % (32.0-36.0); Mean Corpuscular Volume 92.6 fL (80.0-100.0); Mean Platelet Volume 6.7 fL (7.0-11.0); Platelet Count 768 th/mm3 (150-450); Red Blood Count 2.97 mil/mm3 (4.50-5.90); Red Cell Distribution Width 18.8 % (11.6-17.2); White Blood Count 8.2 th/mm3 (4.0-11.0)
[2018-02-25] MEDS: Morphine Inj 4 MG/ML Vial IV.PUSH PRN ×2 (15:05→21:40)
[2018-02-25] MEDS: Micafungin Inj 150 MG in Sodium Chlor 0.9% Inj 100 ML IV.SIG SCH (15:30)
[2018-02-25] MEDS: Magnesium Oxide 400 MG Tablet PO PRN (17:57)
[2018-02-26] MEDS: Oral Hygiene Kit OROPHARYNG SCH ×4 (00:56→18:51)
[2018-02-26] MEDS: Insulin NovoLOG Aspart Correctional Sugar Inj SQ SCH ×6 (00:56→20:32)
[2018-02-26] MEDS: Morphine Inj 4 MG/ML Vial IV.PUSH PRN ×4 (01:03→20:37)
[2018-02-26] MEDS: Dexmedetomidine Inj 1,000 MCG in Sodium Chlor 0.9% Inj 240 ML IV.CONT PRN ×3 (04:56→22:06)
[2018-02-26 05:41] LABS: Alanine Aminotransferase 19 U/L (12-78); Albumin 1.8 g/dL (3.4-5.0); Anion Gap 8 meq/L (5-15); Aspartate Aminotransferase 30 U/L (15-37); Blood Urea Nitrogen 8 mg/dL (7-18); Carbon Dioxide 31.9 meq/L (21.0-32.0); Chloride 104 meq/L (98-107); Glomerular Filtration Rate Greater Than 89 mL/min (>89); Glucose,Random 110 mg/dL (74-106); Potassium 3.7 meq/L (3.5-5.1); Sodium 144 meq/L (136-145)
[2018-02-26 05:43] LABS: Alkaline Phosphatase 117 U/L (45-117); Calcium 8.3 mg/dL (8.5-10.1); Total Protein 5.9 g/dL (6.4-8.2)
[2018-02-26] MEDS: Aztreonam Inj 2 GM in Sodium Chloride 0.9% Inj 100 ML IV.SIG SCH ×3 (06:25→21:22)
[2018-02-26] MEDS: Aspirin 325 MG Tablet PO SCH (08:39)
[2018-02-26] MEDS: Potassium Chloride 25 MEQ Effervescent Tablet NG/OG SCH ×2 (08:39→21:18)
[2018-02-26] MEDS: Famotidine 20 MG Tablet G-TUBE SCH ×2 (08:39→20:34)
[2018-02-26] MEDS: Magnesium Oxide 400 MG Tablet PO SCH ×2 (08:40→20:35)
[2018-02-26] MEDS: levETIRAcetam 500 MG Tablet NG/OG SCH ×2 (08:40→21:19)
[2018-02-26] MEDS: Carboxymethylcellulose 0.5% Opth Drops 15 ML Bottle EACH EYE SCH ×2 (08:40→20:36)
[2018-02-26] MEDS: Chlorhexidine 0.12% Oral Kit 15 ML UDC OROPHARYNG SCH ×2 (08:41→20:32)
[2018-02-26] MEDS: Senna/Docusate Sodium 8.6/50 MG Tablet PO SCH ×2 (08:42→20:34)
[2018-02-26] MEDS: Heparin - SQ 10,000 UNITS/ML Vial SQ SCH ×2 (08:42→20:35)
--- NOTE | 2018-02-26 09:47 | P.PNCC ---
Subjective Subjective Remarks/Hospital Course: This is a 32-year-old male. Admission 01/28/2018. Past medical history includes seizure disorder/noncompliant with levetiracetam, previous EtOH sober for 4 weeks, anorexia, gastroesophageal reflux disease and chronic pancreatitis. Patient presented to [facility] 01/28/2018 with a two-day history of nausea vomiting and diarrhea. Patient's mother/discussed at bedside stated she had just had a "stomach flu" which she has currently recovered. Mom states that the patient has become fairly dehydrated is been having some cramping of his hands. She is worried that he is getting dehydrated and his potassium might begin low. He was unable to tolerate a banana so she gave him some potassium pills p.o. which she also did not tolerate and threw up. Sober 4 weeks according to mother. Patient was noted to have a low potassium at 2.0. Creatinine of 4.0. This is in line with his previous hospitalizations for acute dehydration. Lipase was slightly elevated. Patient does have a history of seizure disorder which is not compliant with levetiracetam. ED physician was called into room because the RN believed he had a seizure. Patient was unresponsive. Mother states this was not like any seizure that she had seen. Pulses not palpable therefore CPR was initiated. Initial rhythm was V. fib. Patient received amiodarone, lidocaine, epinephrine, bicarbonate, magnesium during the 35 minute code with return of spontaneous circulation after 35 minutes. Pupils are about 9 mils bilaterally and 6. When I saw the patient patient was actively thrashing moving all 4 extremities spontaneously but not to command. Pupils are round 8 mm bilaterally and nonreactive. Brain CT revealed no acute findings. CT thorax revealed a left upper and lower lobe. CT abdomen pelvis pending at time of dictation. Likely, troponin pending. EKG revealed incomplete right bundle block with ST depression in the inferior and lateral leads. Cardiology consulted. They will evaluate after stat echocardiogram and troponins been completed. Potassium will be replaced pending [facility] 01/29: persistently in shock. following commands this AM. trop uptrended overnight and now > 40. on levo @ 10, vasopressin. bedside echo with persistence of his global severe LV systolic dysfunction. IVC dilated without respiratory variation. initially attempted therapeutic hypothermia, but became arrhythmogenic and neurologic exam improved and now following commands, so hypothermia aborted. persistently hypokalemic and hypophosphatemic this AM. in addition, remains with severe metabolic alkalosis. 01/30: Troponin trending down, continues to have severe hypokalemia and metabolic alkalosis. Creatinine continues to trend up, only produced 200 cc of urine over the past 24 hours. 01/31: Patient seen by nephrology yesterday and given bumex, urine output dramatically increased, potassium improved with aggressive repletion, pressors now off and dobutamine at 5. 02/01: No issues overnight. Patient tolerated dobutamine at 2 yesterday, discontinued this morning. Switching propofol to precedex and would like to start SBTs today. Overall improved. 02/02: Tolerated switch to precedex yesterday and was on bipap 05/06 for several hours yesterday afternoon, placed back on AC overnight to avoid respiratory fatigue. 02/03: Patient had no overnight events, tolerated SBT x 5 hours yesterday. Significantly agitated this morning during sedation vacation. 02/04: Patient still struggles with agitation when we lighten sedation. 02/05: Temp 103F this morning, no obvious source of infection. Needs to have PICC line placed today. 02/06: reintubated yesterday. overnight persistently febrile. this morning appears in distress- tachypneic on the ventilator, acidotic. potassium up to 5.8 despite medical management. bedside echo with improving LVEF and completely collapsed IVC. no pericardial effusion. lung ultrasound without effusions. 02/07: Remains sedated, orally intubated on mechanical ventilation. On propofol fentanyl and Versed drips. Transfuse 1 unit PRBCs earlier today for drop in hemoglobin. 02/08: Remains sedated, orally intubated on mechanical ventilation. On propofol fentanyl and Versed drips. Awaiting tracheostomy which is scheduled for later today. 02/09: Overnight, new onset of maculopapular rash noted. Noted discontinuation of cefepime 02/08. Received 1 dose diphenhydramine overnight. 02/10: Afebrile. Discussed with mom at bedside. Follows commands weakly bilateral upper and lower extremities. Diffuse macular papular rash improved lower extremities. Appears stable and upper thorax. On Famotidine, methylprednisolone and diphenhydramine 02/11: Afebrile. Opens eyes to voice. Following commands weakly bilateral upper lower extremity. On propofol 50 roxanne grams per kilogram, a fentanyl drip at 250 mg of midazolam drip at 6 mg an hour due to "agitation" overnight. Will wean. Increased quetiapine to 100 twice daily. 02/12: remains on vent at this time, sedated. Follows commands all extremities weakly. RN states that she increase her sedation as the patient was tachycardic and hypotensive. I will start labetalol 200 mg twice daily and attempt sedation wean. 02/13: T-max 101.5. Remains on fentanyl drip at 250 roxanne grams an hour, midazolam drip at 7 mg an hour and fentanyl drip at 250 roxanne grams an hour. Started labetalol 200 mg twice a yesterday but now hypotensive. Tube feeds currently at 10 cc an hour. 02/14: T-max 100.3. Remains on fentanyl drip at 250 roxanne grams an hour, midazolam drip at 7 mg and fentanyl drip 250 mcg an hour. 2 feedings currently at [address] pulmonary angiogram today per cardiology request. Will discuss some other possible transfer to select hospital today. 02/15: T-max 100.3. Tube feedings currently at [address] pulmonary angiogram revealed right upper lobe infiltrate/new. No pulmonary embolism. Opens eyes to voice. 02/16: T-max 100.7. Arousable to voice and close his eyes. Noted increasing platelets currently 876. Will check iron studies and peripheral smear. Again continued difficulty weaning off IV sedation due to severe agitation. 02/17: Remains febrile. Plan for bronchoscopy right upper lobe infiltrate. Please continue to increase. Tolerating tube feeds at 50 cc an hour. Positive BM. 02/18: T-max 103.2. Currently afebrile. Bronchoscopy yesterday Gram stain negative. Tube feeds at goal. 02/19: T-max 101.4. Currently sitting in chair on trach collar on dexmedetomidine drip at 1.5 mcg/kg/h SUBJECTIVE: 02/20: Last fever at noon yesterday. Currently afebrile. Currently on dexmedetomidine drip at 1.3 mg/kg/h. Increasing quetiapine to 300 mg twice daily. Transfusing 1 unit PRBCs today. Replace potassium magnesium see orders. Agitated. Out of bed to chair yesterday on trach collar currently. 02/21: Acute change in status overnight became acutely short of breath was placed back on the ventilator. Chest x-ray done today a.m. shows diffuse worsening bilateral pulmonary infiltrates pulmonary edema/ARDS. Recent bronch and blood cultures have been negative. Appears to be developing severe sepsis with probable ARDS. Received 60 mg IV Lasix overnight 02/22: Remains on the ventilator tachypneic on CPAP. WBC count has improved but chest x-ray with persistent bilateral infiltrates. I will restart IV Lasix for aggressive diuresis monitoring creatinine. On broad-spectrum antibiotics per ID however cultures are pending at this time. Abdominal x-ray after Gastrografin injection did not show any leakage into the peritoneum. Continue medical management for sepsis closely monitor this pancreatic pseudocyst. PEG tube to be replaced today 02/23: Clinically improving, WBC count normal. Hemoglobin 7.1 will transfuse 1 unit PRBC. GI planning to replace dislodged G-tube today. Clinically sepsis seems to be improving. Chest x-ray shows slight improvement in bilateral infiltrates. I will increase Lasix to 20 mg every 6 hours 02/24: Breathing more comfortably on vent support. Urine output excellent more than 7 L with diuresis. We will follow-up chest x-ray in a.m. PEG tube replaced yesterday, start tube feeds if cleared by GI 02/25: Remains on full ventilator support. Sedated with propofol and Precedex. Chest x-ray shows interval improvement, continues to have excellent diuresis with Lasix 7.5 L approximately out. Creatinine remains stable 02/26: Tolerated T piece for several hours yesterday. Currently just placed on T -piece again. Yesterday evening patient apparently panicked and needed vent support. Small amount of discharge surrounding PEG tube insertion site. ID following. Creatinine remains stable. Excellent urine output with IV Lasix. Respiratory status stable improving. Start scheduled p.o. Ativan, increase clonidine p.o. in an attempt to wean Precedex Objective Vital Signs / I&O: Vital Signs 02/25/18 10:00 02/25/18 12:00 02/25/18 12:01 Temperature 101.8 F H Pulse Rate 64 94 H 93 H Respiratory Rate 39 H 35 H Blood Pressure 119/59 L 119/59 L Pulse Oximetry 93 L 92 L 02/25/18 14:00 02/25/18 16:00 09/29/18 18:00 Temperature 98.3 F Pulse Rate 79 82 88 Respiratory Rate 33 H Blood Pressure 148/82 H Pulse Oximetry 86 L 02/25/18 20:00 02/25/18 20:12 02/25/18 22:00 Temperature 97.6 F Pulse Rate 69 84 Respiratory Rate 20 24 Blood Pressure 159/88 H Pulse Oximetry 98 99 02/26/18 00:00 02/26/18 00:20 02/26/18 02:00 Temperature 98.3 F Pulse Rate 75 70 Respiratory Rate 18 19 Blood Pressure 158/75 H Pulse Oximetry 100 100 02/26/18 04:00 02/26/18 04:50 02/26/18 06:00 Temperature 99.0 F Pulse Rate 63 63 Respiratory Rate 18 20 Blood Pressure 163/82 H Pulse Oximetry 100 100 02/26/18 08:33 Temperature Pulse Rate Respiratory Rate Blood Pressure Pulse Oximetry 94 L Intake & Output 02/25/18 02/26/18 02/26/18 18:59 06:59 18:59 Intake Total 1999 1829 / 1829 Output Total 5000 / 5000 4450 / 4450 Balance -3000 / -3000 -2621 / -2621 Weight 78 kg Intake: IV 1999 850 / 850 Precedex Inj 1,000 MCG In NS 250 / 250 250 / 250 Inj 240 ML @ 0.2 MCG/KG/HR 4.27 mls/hr IV.CONT TITRATE PRN Rx# :[id number] Diprivan 1000 mg/100 ml Inj 1, 200 / 200 000 mg In 100 ml @ 5 MCG/KG/MIN 2.604 mls/hr IV.CONT TITRATE PRN Rx#:[id number] Azactam Inj 2 GM In NS Inj 100 100 / 100 100 / 100 ML @ 200 mls/hr IV.SIG Q8H GERMAINE Rx#:[id number] D5W/Normal Saline Inj 1,000 ML 850 / 850 @ 75 mls/hr IV.SIG .[id number] GERMAINE Rx#:[id number] Zyvox 600 mg Premix 300 ML @ 300 / 300 300 / 300 300 mls/hr IV.SIG Q12H GERMAINE Rx#: [id number] Mycamine Inj 150 MG In NS Inj 100 / 100 100 ML @ 100 mls/hr IV.SIG Q24H GERMAINE Rx#:[id number] Flagyl 500 MG Inj 100 ML @ 100 200 / 200 200 / 200 mls/hr IV.SIG Q6H [facility] Rx#: [id number] Tube Feeding 679 / 679 Water Bolus Amount 300 / 300 Output: Urine 5000 / 5000 4250 / 4250 Urine/Stool Mix 200 / 200 Other: Date of Last Bowel Movement 02/24/18 02/26/18 # Bowel Movements 1 Result Diagrams: 02/25/18 11:09 02/26/18 04:13 Objective Remarks: GENERAL: 32-year-old [facility] HEENT: NCAT, pupils are equal round react about 3 mm bilaterally. Extraocular muscles are intact. NECK: Trachea midline. Tracheostomy site is clean dry and intact CHEST: Bilateral coarse crackles and rhonchi. TP CARDIOVASCULAR: RRR. S1, S2 no S4. Without murmur ABDOMEN: Soft, mild tenderness on palpation, new PEG tube site with minimal yellowish white discharge : Positive scrotal edema MUSCULOSKELETAL: Warm and well perfused, maculopapular rash on thorax, bilateral upper and lower extremities resolving. 1+ bilateral upper and lower extremity peripheral edema NEUROLOGICAL: Follows commands by squeezing bilateral upper and bilateral lower extremities weakly.Talks over trach. No obvious focal deficits Assessment and Plan - Assessment and Plan Plan: Neuro/Psych: Seizure disorder NOS History of EtOH sober 4 -6weeks History of anorexia/bulimia Acute metabolic encephalopathy Currently on dexmedetomidine-attempt wean to DC Continue levetiracetam 500 BID (home dose) Quetiapine 300 twice daily, Haldol 2 mg p.o. twice daily. Oxycodone liquid 15 mg every 6 hours. Valproic acid 250 milligrams twice daily Start Ativan 0.5 mg p.o. every 6 hours Increase clonidine to 0.2 mg p.o. every 8 hours Patient has a previous history of heavy EtOH abuse and bulimia as per mother Continue thiamine 100 mg twice daily CV: Pulmonary edema In-hospital cardiac arrest V. fib arrest Cardiogenic Shock-- resolved Severe LV systolic dysfunction- resolving. Septic shock-resolved Evaluated by Dr. Townsend. No further cardiac workup planned at this time. Echo 01/28: severe LV systolic dysfunction, EF 20-25%. mildly depressed RV function. no valvular lesions. Echocardiogram 02/14 - the left ventricular systolic function normal with an estimated EF in the range of 60-65%. No RWMA 02/21: Repeat limited echo Moderately dilated left ventricle. LV ejection fraction 40%. Diuresis with IV Lasix 20 mg every q6h change to q12 Continue daily ASA 325 mg daily. Continued PO thiamine supplementation for ? beriberi Resp: Acute hypoxic respiratory failure- recurrent. Probable ARDS Pulmonary edema Developed severe pulmonary edema placed back on ventilator 02/20 night Since yesterday tolerating intermittent T-piece. Attempt T-piece 24 7 as tolerated from today Aggressive diuresis as above Extubated 02/05, reintubated 02/05 for respiratory failure. Status post tracheostomy by Dr. Serna 02/08 Albuterol/ipratropium aerosols every 6 hours with albuterol aerosols every 2 hours as needed for dyspnea Vent bundle, hob elevated. wean fio2 for goal spo2 > 90%. CT pulmonary angiogram revealed no o pulmonary embolus. See ID section for antibiotics Improving chest x-ray and oxygenation GI: Dislodged G-tube without evidence of peritoneal leak Pancreatic pseudocyst on CT 02/21 Elevated lipase/mild pancreatitis-- resolved Left hepatic pneumobilia history of chronic pancreatitis C. Difficile Colitis G-tube replaced 02/23, tolerating tube feeds Gastrografin study did not show any leakage into the peritoneum Discussed extensively on 02/21/[address] Watt and Dr. Horn Docusate serum/senna 1 tablet twice daily for bowel regimen Renal/ : Acute kidney injury-- resolved Creatinine peaked around 6, slowly normalized Nephrology has signed off IV Lasix as above, creatinine remains normal with aggressive diuresis Endo: Sliding scale insulin with Accu-Cheks to maintain euglycemia aspart insulin every 6 hours, Heme: Normocytic anemia Thrombocytosis Monitor CBC daily. Follow trends. s/p 1 unit of PRBC 02/23/2018 Continue aspirin Iron studies revealed low FE/TIBC and elevated ferritin. Likely this is reactive thrombocytosis. ID: Severe sepsis-improving C. Difficile Colitis F/u sputum blood and urine culture from 02/21-negative to date Dislodged G-tube without evidence of peritonitis GI reconsulted to evaluate PEG site for infection Blood cultures on 01/28 and 01/31 showed coagulase negative staph hominis, likely contamination Sputum, UA and influenza all NGTD Continue ABX per ID. On Zyvox, Micafungin, Aztreonam, also on IV Flagyl for and p.o. vancomycin for C. difficile. s/p Zosyn for 7 days to treat pneumonia, d/c on 02/05 02/08 Oliva albicans Bronc samples 02/17 follow-up FEN: Hypomagnesia Hypopotassemia Replace electrolytes as clinically indicated. MSK PT evaluate and treat DERM: Diffuse macular papular rash likely secondary to cefepime resolved Treated with H2 viviana, diphenhydramine and methylprednisolone succinate. Added cefepime to adverse reaction with rash Access: - 01/29 - 02/05 right SC TLC Prophylaxis -GI-famotidine -DVT SCD/ Subcutaneous heparin Level 3 Patient with with severe hypoxemic respiratory failure, severe pulmonary edema requiring mechanical ventilatory support. Showing some signs of clinical improvement. Continue to monitor closely
--- NOTE | 2018-02-26 10:28 | P.PNID ---
Subjective Remarks: Patient in is awake and alert. Notes pain in head, neck, abdomen. RN reports drainage around the PEG tube. On trach collar. Off vent. No distress. Noted to have loose stools. Also on tube feedings. Temperature of 101.8 yesterday. Culture has no growth. Occlusive thrombus of the right basilic vein noted on ultrasound. Status post tracheostomy 02/08/2018. This is a 32-year-old white male who presented to the emergency department with 2-day history of nausea, vomiting, and diarrhea. The patient ended up intubated after he went into ventricular fibrillation cardiac arrest and was resuscitated. He also was noted to have seizure activity. Antibiotics: IV Flagyl PO Vanco Aztreonam. Lines: Has peripheral IV Lines ok Past Medical History: PAST MEDICAL HISTORY: Alcohol abuse, gastroesophageal reflux disease, hernia, depression, pancreatitis, seizure disorder, left inguinal hernia repair. Allergies/Adverse Reactions: Allergies Sulfa (Sulfonamide Antibiotics) Allergy (Severe, Verified 10/11/17 07:56) hives cefepime Adverse Reaction (Intermediate, Verified 02/15/18 10:55) Rash, Generalized Objective Vital Signs 02/25/18 12:00 02/25/18 12:01 02/25/18 14:00 Temperature 101.8 F H Pulse Rate 94 H 93 H 79 Respiratory Rate 39 H 35 H Blood Pressure 119/59 L 119/59 L Pulse Oximetry 93 L 92 L 02/25/18 16:00 02/25/18 18:00 02/25/18 20:00 Temperature 98.3 F 97.6 F Pulse Rate 82 88 69 Respiratory Rate 33 H 20 Blood Pressure 148/82 H 159/88 H Pulse Oximetry 86 L 98 02/25/18 20:12 02/25/18 22:00 02/26/18 00:00 Temperature 98.3 F Pulse Rate 84 75 Respiratory Rate 24 18 Blood Pressure 158/75 H Pulse Oximetry 99 100 02/26/18 00:20 02/26/18 02:00 02/26/18 04:00 Temperature 99.0 F Pulse Rate 70 63 Respiratory Rate 19 18 Blood Pressure 163/82 H Pulse Oximetry 100 100 02/26/18 04:50 02/26/18 06:00 02/26/18 08:00 Temperature Pulse Rate 63 63 Respiratory Rate 20 Blood Pressure Pulse Oximetry 100 02/26/18 08:33 Temperature Pulse Rate Respiratory Rate Blood Pressure Pulse Oximetry 94 L Intake & Output 02/25/18 02/26/18 02/26/18 18:59 06:59 18:59 Intake Total 1999 1829 / 1829 Output Total 5000 / 5000 4450 / 4450 Balance -3000 / -3000 -2621 / -2621 Weight 78 kg Intake: IV 1999 850 / 850 Precedex Inj 1,000 MCG In NS 250 / 250 250 / 250 Inj 240 ML @ 0.2 MCG/KG/HR 4.27 mls/hr IV.CONT TITRATE PRN Rx# :[id number] Diprivan 1000 mg/100 ml Inj 1, 200 / 200 000 mg In 100 ml @ 5 MCG/KG/MIN 2.604 mls/hr IV.CONT TITRATE PRN Rx#:[id number] Azactam Inj 2 GM In NS Inj 100 100 / 100 100 / 100 ML @ 200 mls/hr IV.SIG Q8H [facility] Rx#:[id number] D5W/Normal Saline Inj 1,000 ML 850 / 850 @ 75 mls/hr IV.SIG .[id number] [facility] Rx#:[id number] Zyvox 600 mg Premix 300 ML @ 300 / 300 300 / 300 300 mls/hr IV.SIG Q12H [facility] Rx#: [id number] Mycamine Inj 150 MG In NS Inj 100 / 100 100 ML @ 100 mls/hr IV.SIG Q24H [facility] Rx#:[id number] Flagyl 500 MG Inj 100 ML @ 100 200 / 200 200 / 200 mls/hr IV.SIG Q6H [facility] Rx#: [id number] Tube Feeding 679 / 679 Water Bolus Amount 300 / 300 Output: Urine 5000 / 5000 4250 / 4250 Urine/Stool Mix 200 / 200 Other: Date of Last Bowel Movement 02/24/18 02/26/18 02/26/18 # Bowel Movements 1 02/21/18 10:44 Blood - Peripheral Aerobic Blood Culture - Preliminary No growth in 4 days 02/21/18 10:44 Blood - Peripheral Anaerobic Blood Culture - Preliminary No growth in 4 days 02/21/18 10:23 Blood - Peripheral Aerobic Blood Culture - Preliminary No growth in 4 days 02/21/18 10:23 Blood - Peripheral Anaerobic Blood Culture - Preliminary No growth in 4 days 02/17/18 13:20 Bronchial Washings - Right Upper Lobe Acid Fast Bacilli Smear - Final No acid fast bacilli seen 02/17/18 13:20 Bronchial Washings - Right Upper Lobe Mycobacterial Culture - Preliminary No growth in 1 week 02/21/18 09:30 Sputum - Endotracheal Gram Stain - Final 02/21/18 09:30 Sputum - Endotracheal Sputum Culture - Final Heavy growth normal respiratory pepito Lab - Hematology Results 02/25/18 11:09 WBC 8.2 RBC 2.97 L Hgb 9.2 L Hct 27.5 L MCV 92.6 D MCH 31.0 MCHC 33.5 RDW 18.8 H D Plt Count 768 H MPV 6.7 L Lab - Chemistry Results 02/24/18 02/24/18 02/24/18 12:26 12:37 16:38 Sodium 147 H Potassium 3.5 Chloride 110 H Carbon Dioxide 27.6 Anion Gap 9 BUN 8 Creatinine 0.58 L Estimated GFR Greater than 89 POC Glucose 119 H 107 Random Glucose 107 H Calcium 8.1 L Magnesium Total Bilirubin 0.3 AST 27 ALT 16 Alkaline Phosphatase 98 Total Protein 5.5 L Albumin 1.7 L 02/24/18 02/25/18 02/25/18 21:28 01:25 04:19 Sodium 145 Potassium 3.8 Chloride 109 H Carbon Dioxide 25.6 Anion Gap 10 BUN 9 Creatinine 0.59 L Estimated GFR Greater than 89 POC Glucose 118 H 127 H Random Glucose 112 H Calcium 8.1 L Magnesium 1.3 L Total Bilirubin 0.2 AST 28 ALT 15 Alkaline Phosphatase 106 Total Protein 5.5 L Albumin 1.6 L 02/25/18 02/25/18 02/25/18 08:29 12:14 17:03 Sodium Potassium Chloride Carbon Dioxide Anion Gap BUN Creatinine Estimated GFR POC Glucose 119 H 142 H 128 H Random Glucose Calcium Magnesium Total Bilirubin AST ALT Alkaline Phosphatase Total Protein Albumin 02/25/18 02/26/18 02/26/18 21:06 00:52 04:13 Sodium 144 Potassium 3.7 Chloride 104 Carbon Dioxide 31.9 Anion Gap 8 BUN 8 Creatinine 0.63 Estimated GFR Greater than 89 POC Glucose 118 H 123 H Random Glucose 110 H Calcium 8.3 L Magnesium Total Bilirubin 0.2 AST 30 ALT 19 Alkaline Phosphatase 117 Total Protein 5.9 L Albumin 1.8 L 02/26/18 02/26/18 05:27 08:31 Sodium Potassium Chloride Carbon Dioxide Anion Gap BUN Creatinine Estimated GFR POC Glucose 128 H 117 H Random Glucose Calcium Magnesium Total Bilirubin AST ALT Alkaline Phosphatase Total Protein Albumin Imaging: ITS Impressions Gallbladder Ultrasound 01/30/18 00:00 CONCLUSION: 1. Unremarkable study. Abdomen/Bladder Ultrasound 01/30/18 15:17 CONCLUSION: 1. Negative renal sonogram. Head CT 02/06/18 03:50 CONCLUSION: 1. No acute intracranial abnormalities. . Head MRI 02/09/18 00:00 CONCLUSION: 1. Normal MRI of the brain. 2. Sinusitis and mastoiditis. Chest CTA 02/14/18 00:00 CONCLUSION: No evidence of pulmonary embolism. New right upper lobe pneumonia. Improving aeration on the left. Abdomen/Pelvis CT 02/20/18 00:00 CONCLUSION: 1. Interval development of 6 cm smooth margin low density cystic structure about the tail of the pancreas suggesting possible pseudocyst formation. 2. Percutaneous gastrostomy in place. No evidence of free intraperitoneal gas or free fluid. 3. Development of diffuse anasarca. 4. Interval development development of moderate-sized right pleural effusion and multifocal subsegmental areas of infiltrate in the right lower lung and decrease in size of left pleural effusion. Chest CT 02/21/18 00:00 CONCLUSION: 1. G-tube is within the anterior abdominal wall left rectus muscle with a sinus tract extending to the stomach. Findings called to Dr. Allen at the time of dictation. 2. Slight worsening of bilateral patchy airspace consolidation and bilateral effusions since February 20. 3. Tracheostomy in good position. Abdomen X-Ray 02/21/18 17:10 CONCLUSION: No peritoneal leakage identified with Gastrografin injection. Venous Doppler Study 02/24/18 00:00 CONCLUSION: 1. There is occlusive thrombus within the proximal right basilic vein. 2. The remaining veins in the right upper extremity are patent. Chest X-Ray 02/25/18 06:00 CONCLUSION: Mild fairly diffuse consolidation likely related to underlying processes such as edema. Physical Exam: PHYSICAL EXAMINATION: GENERAL: Awake. No distress. HEENT: Pupils are equal and reactive. No icterus. NECK: No adenopathy or swelling. LUNGS: Coarse rhonchi bilateral. HEART: Regular S1 and S2. No murmurs heard. ABDOMEN: Bowel sounds present. Soft. No tenderness. No mass palpable. EXTREMITIES: No clubbing, cyanosis. edema of the hands. Swelling at RUE is decreased. SKIN: No rash. NEUROLOGIC: Non focal. Assessment and Plan - Plan IMPRESSION: 1. Possible sepsis. However cultures have been negative. Previous staph coagulase positive blood culture felt to be contamination. Subsequent cultures negative. No clear source. 2. Skin rash. Likely drug related. Probably cefepime was associated. Resolved. 3. Pneumonia. Suspect aspiration. 4. Status post cardiac arrest. 5. Acute respiratory failure. Patient now post tracheostomy. 6. Acute renal failure. Improved. 7. Seizure disorder. 8. Oliva UTI. Treated. 9. Leukocytosis improved. 10. C. difficile colitis. 11. Fever. ? etiology. Worsened lung infiltrates. May have peritonitis secondary to peg tube migrating into peritoneum. ? aspiration. Temp lower. 12. Occlusive thrombus of the right basilic vein noted on ultrasound. RECOMMENDATIONS: 1. Continue Aztreonam. 2. Continue intravenous Flagyl for C. difficile. 3. Continue p.o. vancomycin for C. difficile. 4. Culture peg site drainage. 5. Monitor temp and WBC. 6. Culture PEg drainage. 7. Monitor clinical status.
[2018-02-26] MEDS: LORazepam 0.5 MG Tablet PO SCH ×2 (11:45→18:50)
[2018-02-27] MEDS: LORazepam 0.5 MG Tablet PO SCH ×5 (00:33→23:58)
[2018-02-27] MEDS: Insulin NovoLOG Aspart Correctional Sugar Inj SQ SCH ×7 (00:33→23:58)
[2018-02-27] MEDS: Oral Hygiene Kit OROPHARYNG SCH ×5 (00:33→23:58)
[2018-02-27] MEDS: Morphine Inj 4 MG/ML Vial IV.PUSH PRN ×2 (03:16→20:02)
--- NOTE | 2018-02-27 04:35 | XR ---
EXAM DATE: 02/27/2018 6:00 AM EDT AGE/SEX: 32 years / Male INDICATIONS: Shortness of breath, possible pulmonary disease. CLINICAL DATA: This is the patient's subsequent encounter. Patient reports that signs and symptoms h ave been present for 3 weeks and indicates a pain score of Nonresponsive. MEDICAL/SURGICAL HISTORY: Gastroesophageal reflux disease. Pancreatitis. Seizures. ETOH. In guinal hernia repair. [place] [facility] [place]. . FINDINGS: Stable tracheostomy. Improving patchy bilateral interstitial and airspace opacities, particularly in the right mid to lower lung zone. Cardiomediastinal contours are stable. Remainder of the exam is unc hanged. CONCLUSION: 1. Improving pulmonary edema pattern of patchy airspace and interstitial opacities. Electronically signed by: Naun Payne MD 02/27/2018 4:33 AM EDT
[2018-02-27] MEDS: Aztreonam Inj 2 GM in Sodium Chloride 0.9% Inj 100 ML IV.SIG SCH (05:43)
[2018-02-27] MEDS: Dexmedetomidine Inj 1,000 MCG in Sodium Chlor 0.9% Inj 240 ML IV.CONT PRN (06:29)
[2018-02-27 06:59] LABS: Hematocrit 29.4 % (39.0-51.0); Hemoglobin 10.1 gm/dL (13.0-17.0); Mean Corpuscular HGB Conc 34.5 % (32.0-36.0); Mean Corpuscular Volume 92.8 fL (80.0-100.0); Mean Platelet Volume 7.1 fL (7.0-11.0); Platelet Count 798 th/mm3 (150-450); Red Blood Count 3.17 mil/mm3 (4.50-5.90); Red Cell Distribution Width 18.4 % (11.6-17.2); White Blood Count 11.4 th/mm3 (4.0-11.0)
[2018-02-27 07:14] LABS: Alanine Aminotransferase 23 U/L (12-78); Anion Gap 8 meq/L (5-15); Aspartate Aminotransferase 46 U/L (15-37); Blood Urea Nitrogen 12 mg/dL (7-18); Carbon Dioxide 31.6 meq/L (21.0-32.0); Chloride 102 meq/L (98-107); Glomerular Filtration Rate Greater Than 89 mL/min (>89); Glucose,Random 109 mg/dL (74-106); Magnesium 1.5 mg/dL (1.5-2.5); Potassium 4.1 meq/L (3.5-5.1); Sodium 142 meq/L (136-145)
[2018-02-27 07:17] LABS: Alkaline Phosphatase 130 U/L (45-117); Total Protein 6.2 g/dL (6.4-8.2)
[2018-02-27] MEDS: Famotidine 20 MG Tablet G-TUBE SCH ×2 (09:15→20:53)
[2018-02-27] MEDS: Aspirin 325 MG Tablet PO SCH (09:15)
[2018-02-27] MEDS: Magnesium Oxide 400 MG Tablet PO SCH ×2 (09:15→20:55)
[2018-02-27] MEDS: Heparin - SQ 10,000 UNITS/ML Vial SQ SCH ×2 (09:16→20:50)
[2018-02-27] MEDS: Chlorhexidine 0.12% Oral Kit 15 ML UDC OROPHARYNG SCH ×2 (09:16→20:01)
[2018-02-27] MEDS: levETIRAcetam 500 MG Tablet NG/OG SCH ×2 (09:17→20:54)
[2018-02-27] MEDS: Potassium Chloride 25 MEQ Effervescent Tablet NG/OG SCH ×2 (09:17→20:58)
[2018-02-27] MEDS: Senna/Docusate Sodium 8.6/50 MG Tablet PO SCH ×2 (09:17→21:09)
[2018-02-27] MEDS: Carboxymethylcellulose 0.5% Opth Drops 15 ML Bottle EACH EYE SCH ×2 (09:18→21:00)
--- NOTE | 2018-02-27 10:43 | P.PNGI ---
Subjective Interval history: This is a reconsult for leaking around PEG tube site. Pt is vented via trach, not able to communicate, but able to nod yes or no, he denies nausea, vomiting or abd pain, tolerating TF okay. Nurse hasn't noticed any drainage today, no residuals. <Maya Butler - Last Filed: 02/27/18 10:30> Physical Exam Vital signs: Vital Signs 02/26/18 10:43 02/26/18 11:00 02/26/18 12:00 Temperature 98.4 F Pulse Rate 63 72 Respiratory Rate 30 H 24 27 H Blood Pressure 148/83 H 145/78 H Pulse Oximetry 99 94 L 02/26/18 13:00 02/26/18 14:00 02/26/18 15:00 Temperature Pulse Rate 78 59 L 65 Respiratory Rate 32 H 22 22 Blood Pressure 145/83 H 156/88 H 153/87 H Pulse Oximetry 98 100 97 02/26/18 16:00 02/26/18 17:00 02/26/18 18:00 Temperature 98.3 F Pulse Rate 69 62 59 L Respiratory Rate 29 H 25 H 24 Blood Pressure 177/82 H 156/86 H Pulse Oximetry 95 97 97 02/26/18 19:00 02/26/18 20:00 02/26/18 20:48 Temperature 98.9 F Pulse Rate 75 60 Respiratory Rate 30 H 24 Blood Pressure 153/82 H Pulse Oximetry 97 98 98 02/26/18 22:00 02/27/18 00:00 02/27/18 02:00 Temperature 97.6 F Pulse Rate 79 62 64 Respiratory Rate 24 Blood Pressure 149/83 H Pulse Oximetry 97 02/27/18 04:00 02/27/18 05:27 02/27/18 06:00 Temperature 98.5 F Pulse Rate 68 73 Respiratory Rate 23 Blood Pressure 173/85 H Pulse Oximetry 99 97 Intake & Output 02/26/18 02/27/18 02/27/18 18:59 06:59 18:59 Intake Total 1735 / 1735 1432 / 1432 Output Total 3600 / 3600 2300 / 2300 Balance -1865 / -1865 -868 / -868 Weight 73 kg Intake: IV 550 / 550 800 / 800 Precedex Inj 1,000 MCG In NS 250 / 250 500 / 500 Inj 240 ML @ 0.2 MCG/KG/HR 4.27 mls/hr IV.CONT TITRATE PRN Rx# :[id number] Azactam Inj 2 GM In NS Inj 100 100 / 100 100 / 100 ML @ 200 mls/hr IV.SIG Q8H GERMAINE Rx#:[id number] Flagyl 500 MG Inj 100 ML @ 100 200 / 200 200 / 200 mls/hr IV.SIG Q6H GERMAINE Rx#: [id number] Oral 0 / 0 0 / 0 Tube Feeding 870 / 870 632 / 632 Tube Irrigant 200 / 200 Water Bolus Amount 75 / 75 Other 40 / 40 Output: Urine 3600 / 3600 2100 / 2100 Stool 0 / 0 200 / 200 Urine/Stool Mix 0 / 0 Other: Other Intake Source Saline Solution # Voids 0 # Incontinent Voids 0 Date of Last Bowel Movement 02/26/18 02/27/18 # Bowel Movements 1 # Incontinent Bowel Movements 0 Narrative: Alert Abd: soft; non tender; new PEG in place - Constitutional no acute distress - Routine HEENT Exam Head: Present: normocephalic - Routine Neck Exam Comments: trach in place - Routine Respiratory Exam Present: patient mechanically ventilated, CTA bilaterally - Routine Cardiovascular Exam Present: RRR - Routine Abdominal Exam Present: soft, normoactive bowel sounds. Absent: tenderness, distended Comments: PEG tube in place, dry gauze - Routine Skin Exam Present: intact, dry. Absent: jaundice - Routine Neurological Exam Present: alert - Urinary Catheter Management Coude Cath placed during this visit: yes, but has since been removed by the nurse Reason for continuing: Decision to DC catheter Insertion date: 01/28/18 Insertion time: 13:15 Removal date: 02/03/18 Removal time: 15:15 Straight Cath placed during this visit: yes, but has since been removed by the nurse Reason for continuing: Acute urinary retention Insertion date: 02/12/18 Insertion time: 08:00 Removal date: 02/04/18 Indwelling Urethral Catheter Cath placed during this visit: yes, but has since been removed by the nurse Reason for continuing: Decision to DC catheter Insertion date: 02/12/18 Insertion time: 07:00 Removal date: 02/17/18 Removal time: 15:10 <Maya Butler - Last Filed: 02/27/18 10:30> Vital signs: Vital Signs 02/26/18 22:00 02/27/18 00:00 02/27/18 02:00 Temperature 97.6 F Pulse Rate 79 62 64 Respiratory Rate 24 Blood Pressure 149/83 H Pulse Oximetry 97 02/27/18 04:00 02/27/18 05:27 02/27/18 06:00 Temperature 98.5 F Pulse Rate 68 73 Respiratory Rate 23 Blood Pressure 173/85 H Pulse Oximetry 99 97 02/27/18 08:00 02/27/18 09:00 02/27/18 10:00 Temperature 98.5 F Pulse Rate 62 68 78 Respiratory Rate 28 H 32 H 29 H Blood Pressure 170/86 H 178/92 H Pulse Oximetry 100 95 96 02/27/18 10:01 02/27/18 11:00 02/27/18 12:00 Temperature 98.3 F Pulse Rate 89 69 77 Respiratory Rate 38 H 27 H 29 H Blood Pressure 145/67 H 168/81 H 148/70 H Pulse Oximetry 96 99 99 02/27/18 13:00 02/27/18 13:43 02/27/18 14:00 Temperature Pulse Rate 70 66 Respiratory Rate 27 H 16 28 H Blood Pressure 150/72 H 143/80 H Pulse Oximetry 99 99 02/27/18 14:36 02/27/18 15:00 02/27/18 16:00 Temperature Pulse Rate 67 72 Respiratory Rate 26 H 28 H Blood Pressure 155/78 H 151/85 H Pulse Oximetry 96 98 100 02/27/18 17:00 02/27/18 18:00 02/27/18 20:00 Temperature Pulse Rate 75 94 H 102 H Respiratory Rate 26 H Blood Pressure 140/80 Pulse Oximetry 99 02/27/18 21:37 Temperature Pulse Rate Respiratory Rate Blood Pressure Pulse Oximetry 100 Intake & Output 02/27/18 02/27/18 02/28/18 06:59 18:59 06:59 Intake Total 1432 / 1432 400 / 400 Output Total 2300 / 2300 3450 / 3450 Balance -868 / -868 -3050 / -3050 Weight 73 kg Intake: IV 800 / 800 200 / 200 Precedex Inj 1,000 MCG In NS 500 / 500 Inj 240 ML @ 0.2 MCG/KG/HR 4.27 mls/hr IV.CONT TITRATE PRN Rx# :[id number] Azactam Inj 2 GM In NS Inj 100 100 / 100 100 / 100 ML @ 200 mls/hr IV.SIG Q8H GERMAINE Rx#:[id number] Flagyl 500 MG Inj 100 ML @ 100 200 / 200 100 / 100 mls/hr IV.SIG Q6H [facility] Rx#: [id number] Oral 0 / 0 Tube Feeding 632 / 632 Water Bolus Amount 200 / 200 Output: Urine 2100 / 2100 3450 / 3450 Stool 200 / 200 Other: Date of Last Bowel Movement 02/27/18 02/27/18 # Bowel Movements 5 - Urinary Catheter Management Coude Cath placed during this visit: no Straight Cath placed during this visit: no Indwelling Urethral Catheter Cath placed during this visit: no <Marino Morgan - Last Filed: 02/27/18 21:40> Results - Labs CBC & Chem 7: 02/27/18 05:55 02/27/18 05:55 Laboratory Results - last 24 hr 02/26/18 02/26/18 02/26/18 11:41 16:31 19:50 WBC RBC Hgb Hct MCV MCH MCHC RDW Plt Count MPV Sodium Potassium Chloride Carbon Dioxide Anion Gap BUN Creatinine Estimated GFR POC Glucose 107 124 H 128 H Random Glucose Calcium Magnesium Total Bilirubin AST ALT Alkaline Phosphatase Total Protein Albumin 02/27/18 02/27/18 02/27/18 00:19 05:32 05:55 WBC 11.4 H RBC 3.17 L Hgb 10.1 L Hct 29.4 L MCV 92.8 MCH 32.0 MCHC 34.5 RDW 18.4 H Plt Count 798 H MPV 7.1 Sodium Potassium Chloride Carbon Dioxide Anion Gap BUN Creatinine Estimated GFR POC Glucose 118 H 96 Random Glucose Calcium Magnesium Total Bilirubin AST ALT Alkaline Phosphatase Total Protein Albumin 02/27/18 05:55 WBC RBC Hgb Hct MCV MCH MCHC RDW Plt Count MPV Sodium 142 Potassium 4.1 Chloride 102 Carbon Dioxide 31.6 Anion Gap 8 BUN 12 Creatinine 0.58 L Estimated GFR Greater than 89 POC Glucose Random Glucose 109 H Calcium 9.0 Magnesium 1.5 Total Bilirubin 0.2 AST 46 H ALT 23 Alkaline Phosphatase 130 H Total Protein 6.2 L Albumin 2.0 L Microbiology 02/21/18 10:44 Blood - Peripheral Aerobic Blood Culture - Final No growth in 5 days 02/21/18 10:44 Blood - Peripheral Anaerobic Blood Culture - Final No growth in 5 days 02/21/18 10:23 Blood - Peripheral Aerobic Blood Culture - Final No growth in 5 days 02/21/18 10:23 Blood - Peripheral Anaerobic Blood Culture - Final No growth in 5 days - Imaging Impressions Chest X-Ray 02/27/18 06:00 CONCLUSION: 1. Improving pulmonary edema pattern of patchy airspace and interstitial opacities. <Maya Butler - Last Filed: 02/27/18 10:30> - Labs CBC & Chem 7: 02/27/18 05:55 02/27/18 05:55 Laboratory Results - last 24 hr 02/18/18 02/27/18 02/27/18 20:54 00:19 05:32 WBC RBC Hgb Hct MCV MCH MCHC RDW Plt Count MPV Sodium Potassium Chloride Carbon Dioxide Anion Gap BUN Creatinine Estimated GFR POC Glucose 118 H 96 Random Glucose Calcium Magnesium Total Bilirubin AST ALT Alkaline Phosphatase Total Protein Albumin JAK2 Mutation (PCR) 02/27/18 02/27/18 02/27/18 05:55 05:55 12:35 WBC 11.4 H RBC 3.17 L Hgb 10.1 L Hct 29.4 L MCV 92.8 MCH 32.0 MCHC 34.5 RDW 18.4 H Plt Count 798 H MPV 7.1 Sodium 142 Potassium 4.1 Chloride 102 Carbon Dioxide 31.6 Anion Gap 8 BUN 12 Creatinine 0.58 L Estimated GFR Greater than 89 POC Glucose 112 H Random Glucose 109 H Calcium 9.0 Magnesium 1.5 Total Bilirubin 0.2 AST 46 H ALT 23 Alkaline Phosphatase 130 H Total Protein 6.2 L Albumin 2.0 L JAK2 Mutation (PCR) 02/27/18 19:59 WBC RBC Hgb Hct MCV MCH MCHC RDW Plt Count MPV Sodium Potassium Chloride Carbon Dioxide Anion Gap BUN Creatinine Estimated GFR POC Glucose 87 Random Glucose Calcium Magnesium Total Bilirubin AST ALT Alkaline Phosphatase Total Protein Albumin JAK2 Mutation (PCR) Microbiology 02/26/18 12:15 Fluid - Other Gram Stain - Final 02/26/18 12:15 Fluid - Other Wound Culture - Preliminary No growth in 24 hours - Imaging Impressions Chest X-Ray 02/27/18 06:00 CONCLUSION: 1. Improving pulmonary edema pattern of patchy airspace and interstitial opacities. <Marino Morgan - Last Filed: 02/27/18 21:40> Assessment and Plan - Plan - Dysphagia- S/P EGD with PEG replacement 02/23/18 Reconsulted today for leak around PEG tube. Pt is vented via trach, not able to communicate, but able to nod yes or no, he denies nausea, vomiting or abd pain, tolerating TF okay. Nurse hasn't noticed any drainage today, no residuals. Plan: Cont. TF Flush PEG q 6hrs and after medications and feedings Monitor site for any drainage Monitor of residuals if there's signs of drainage or residuals, order KUB with Gastrografin Pt was seen and examined by myself and Dr. Morgan and this note is written on his behalf <Maya Butler - Last Filed: 02/27/18 10:30> - Plan Patient seen and examined Agree with above Continue with current supportive care Monitor labs PEG site appears to be clean and dry free of infection very small amounts of mucus noted this is to be expected and normal I would just use simple cleaning measures at this point not much to add from a GI perspective we will sign off <Marino Morgan - Last Filed: 02/27/18 21:40>
--- NOTE | 2018-02-27 12:15 | P.PNCC ---
Subjective Subjective Remarks/Hospital Course: This is a 32-year-old male. Admission 01/28/2018. Past medical history includes seizure disorder/noncompliant with levetiracetam, previous EtOH sober for 4 weeks, anorexia, gastroesophageal reflux disease and chronic pancreatitis. Patient presented to [facility] 01/28/2018 with a two-day history of nausea vomiting and diarrhea. Patient's mother/discussed at bedside stated she had just had a "stomach flu" which she has currently recovered. Mom states that the patient has become fairly dehydrated is been having some cramping of his hands. She is worried that he is getting dehydrated and his potassium might begin low. He was unable to tolerate a banana so she gave him some potassium pills p.o. which she also did not tolerate and threw up. Sober 4 weeks according to mother. Patient was noted to have a low potassium at 2.0. Creatinine of 4.0. This is in line with his previous hospitalizations for acute dehydration. Lipase was slightly elevated. Patient does have a history of seizure disorder which is not compliant with levetiracetam. ED physician was called into room because the RN believed he had a seizure. Patient was unresponsive. Mother states this was not like any seizure that she had seen. Pulses not palpable therefore CPR was initiated. Initial rhythm was V. fib. Patient received amiodarone, lidocaine, epinephrine, bicarbonate, magnesium during the 35 minute code with return of spontaneous circulation after 35 minutes. Pupils are about 9 mils bilaterally and 6. When I saw the patient patient was actively thrashing moving all 4 extremities spontaneously but not to command. Pupils are round 8 mm bilaterally and nonreactive. Brain CT revealed no acute findings. CT thorax revealed a left upper and lower lobe. CT abdomen pelvis pending at time of dictation. Likely, troponin pending. EKG revealed incomplete right bundle block with ST depression in the inferior and lateral leads. Cardiology consulted. They will evaluate after stat echocardiogram and troponins been completed. Potassium will be replaced pending [facility] 01/29: persistently in shock. following commands this AM. trop uptrended overnight and now > 40. on levo @ 10, vasopressin. bedside echo with persistence of his global severe LV systolic dysfunction. IVC dilated without respiratory variation. initially attempted therapeutic hypothermia, but became arrhythmogenic and neurologic exam improved and now following commands, so hypothermia aborted. persistently hypokalemic and hypophosphatemic this AM. in addition, remains with severe metabolic alkalosis. 01/30: Troponin trending down, continues to have severe hypokalemia and metabolic alkalosis. Creatinine continues to trend up, only produced 200 cc of urine over the past 24 hours. 01/31: Patient seen by nephrology yesterday and given bumex, urine output dramatically increased, potassium improved with aggressive repletion, pressors now off and dobutamine at 5. 02/01: No issues overnight. Patient tolerated dobutamine at 2 yesterday, discontinued this morning. Switching propofol to precedex and would like to start SBTs today. Overall improved. 02/02: Tolerated switch to precedex yesterday and was on bipap 05/06 for several hours yesterday afternoon, placed back on AC overnight to avoid respiratory fatigue. 02/03: Patient had no overnight events, tolerated SBT x 5 hours yesterday. Significantly agitated this morning during sedation vacation. 02/04: Patient still struggles with agitation when we lighten sedation. 02/05: Temp 103F this morning, no obvious source of infection. Needs to have PICC line placed today. 02/06: reintubated yesterday. overnight persistently febrile. this morning appears in distress- tachypneic on the ventilator, acidotic. potassium up to 5.8 despite medical management. bedside echo with improving LVEF and completely collapsed IVC. no pericardial effusion. lung ultrasound without effusions. 02/07: Remains sedated, orally intubated on mechanical ventilation. On propofol fentanyl and Versed drips. Transfuse 1 unit PRBCs earlier today for drop in hemoglobin. 02/08: Remains sedated, orally intubated on mechanical ventilation. On propofol fentanyl and Versed drips. Awaiting tracheostomy which is scheduled for later today. 02/09: Overnight, new onset of maculopapular rash noted. Noted discontinuation of cefepime 02/08. Received 1 dose diphenhydramine overnight. 02/10: Afebrile. Discussed with mom at bedside. Follows commands weakly bilateral upper and lower extremities. Diffuse macular papular rash improved lower extremities. Appears stable and upper thorax. On Famotidine, methylprednisolone and diphenhydramine 02/11: Afebrile. Opens eyes to voice. Following commands weakly bilateral upper lower extremity. On propofol 50 roxanne grams per kilogram, a fentanyl drip at 250 mg of midazolam drip at 6 mg an hour due to "agitation" overnight. Will wean. Increased quetiapine to 100 twice daily. 02/12: remains on vent at this time, sedated. Follows commands all extremities weakly. RN states that she increase her sedation as the patient was tachycardic and hypotensive. I will start labetalol 200 mg twice daily and attempt sedation wean. 02/13: T-max 101.5. Remains on fentanyl drip at 250 roxanne grams an hour, midazolam drip at 7 mg an hour and fentanyl drip at 250 roxanne grams an hour. Started labetalol 200 mg twice a yesterday but now hypotensive. Tube feeds currently at 10 cc an hour. 02/14: T-max 100.3. Remains on fentanyl drip at 250 roxanne grams an hour, midazolam drip at 7 mg and fentanyl drip 250 mcg an hour. 2 feedings currently at [address] pulmonary angiogram today per cardiology request. Will discuss some other possible transfer to [facility] hospital today. 02/15: T-max 100.3. Tube feedings currently at [address] pulmonary angiogram revealed right upper lobe infiltrate/new. No pulmonary embolism. Opens eyes to voice. 02/16: T-max 100.7. Arousable to voice and close his eyes. Noted increasing platelets currently 876. Will check iron studies and peripheral smear. Again continued difficulty weaning off IV sedation due to severe agitation. 02/17: Remains febrile. Plan for bronchoscopy right upper lobe infiltrate. Please continue to increase. Tolerating tube feeds at 50 cc an hour. Positive BM. 02/18: T-max 103.2. Currently afebrile. Bronchoscopy yesterday Gram stain negative. Tube feeds at goal. 02/19: T-max 101.4. Currently sitting in chair on trach collar on dexmedetomidine drip at 1.5 mcg/kg/h SUBJECTIVE: 02/20: Last fever at noon yesterday. Currently afebrile. Currently on dexmedetomidine drip at 1.3 mg/kg/h. Increasing quetiapine to 300 mg twice daily. Transfusing 1 unit PRBCs today. Replace potassium magnesium see orders. Agitated. Out of bed to chair yesterday on trach collar currently. 02/21: Acute change in status overnight became acutely short of breath was placed back on the ventilator. Chest x-ray done today a.m. shows diffuse worsening bilateral pulmonary infiltrates pulmonary edema/ARDS. Recent bronch and blood cultures have been negative. Appears to be developing severe sepsis with probable ARDS. Received 60 mg IV Lasix overnight 02/22: Remains on the ventilator tachypneic on CPAP. WBC count has improved but chest x-ray with persistent bilateral infiltrates. I will restart IV Lasix for aggressive diuresis monitoring creatinine. On broad-spectrum antibiotics per ID however cultures are pending at this time. Abdominal x-ray after Gastrografin injection did not show any leakage into the peritoneum. Continue medical management for sepsis closely monitor this pancreatic pseudocyst. PEG tube to be replaced today 02/23: Clinically improving, WBC count normal. Hemoglobin 7.1 will transfuse 1 unit PRBC. GI planning to replace dislodged G-tube today. Clinically sepsis seems to be improving. Chest x-ray shows slight improvement in bilateral infiltrates. I will increase Lasix to 20 mg every 6 hours 02/24: Breathing more comfortably on vent support. Urine output excellent more than 7 L with diuresis. We will follow-up chest x-ray in a.m. PEG tube replaced yesterday, start tube feeds if cleared by GI 02/25: Remains on full ventilator support. Sedated with propofol and Precedex. Chest x-ray shows interval improvement, continues to have excellent diuresis with Lasix 7.5 L approximately out. Creatinine remains stable 02/26: Tolerated T piece for several hours yesterday. Currently just placed on T -piece again. Yesterday evening patient apparently panicked and needed vent support. Small amount of discharge surrounding PEG tube insertion site. ID following. Creatinine remains stable. Excellent urine output with IV Lasix. Respiratory status stable improving. Start scheduled p.o. Ativan, increase clonidine p.o. in an attempt to wean Precedex 02/27: Clinically improved tolerated T piece since yesterday morning remains off vent now more than 24 hours. Remains on Precedex but less anxious breathing comfortably. Communicative. Denies abdominal pain or shortness of breath. Writes down that pain and anxiety are his main problems now. Chest x-ray improving pulmonary edema Objective Vital Signs / I&O: Vital Signs 02/26/18 13:00 02/26/18 14:00 02/26/18 15:00 Temperature Pulse Rate 78 59 L 65 Respiratory Rate 32 H 22 22 Blood Pressure 145/83 H 156/88 H 153/87 H Pulse Oximetry 98 100 97 02/26/18 16:00 02/26/18 17:00 02/26/18 18:00 Temperature 98.3 F Pulse Rate 69 62 59 L Respiratory Rate 29 H 25 H 24 Blood Pressure 177/82 H 156/86 H Pulse Oximetry 95 97 97 02/26/18 19:00 02/26/18 20:00 02/26/18 20:48 Temperature 98.9 F Pulse Rate 75 60 Respiratory Rate 30 H 24 Blood Pressure 153/82 H Pulse Oximetry 97 98 98 02/26/18 22:00 02/27/18 00:00 02/27/18 02:00 Temperature 97.6 F Pulse Rate 79 62 64 Respiratory Rate 24 Blood Pressure 149/83 H Pulse Oximetry 97 02/27/18 04:00 02/27/18 05:27 02/27/18 06:00 Temperature 98.5 F Pulse Rate 68 73 Respiratory Rate 23 Blood Pressure 173/85 H Pulse Oximetry 99 97 Intake & Output 02/26/18 02/27/18 02/27/18 18:59 06:59 18:59 Intake Total 1735 / 1735 1432 / 1432 Output Total 3600 / 3600 2300 / 2300 Balance -1865 / -1865 -868 / -868 Weight 73 kg Intake: IV 550 / 550 800 / 800 Precedex Inj 1,000 MCG In NS 250 / 250 500 / 500 Inj 240 ML @ 0.2 MCG/KG/HR 4.27 mls/hr IV.CONT TITRATE PRN Rx# :[id number] Azactam Inj 2 GM In NS Inj 100 100 / 100 100 / 100 ML @ 200 mls/hr IV.SIG Q8H GERMAINE Rx#:[id number] Flagyl 500 MG Inj 100 ML @ 100 200 / 200 200 / 200 mls/hr IV.SIG Q6H GERMAINE Rx#: [id number] Oral 0 / 0 0 / 0 Tube Feeding 870 / 870 632 / 632 Tube Irrigant 200 / 200 Water Bolus Amount 75 / 75 Other 40 / 40 Output: Urine 3600 / 3600 2100 / 2100 Stool 0 / 0 200 / 200 Urine/Stool Mix 0 / 0 Other: Other Intake Source Saline Solution # Voids 0 # Incontinent Voids 0 Date of Last Bowel Movement 02/26/18 02/27/18 # Bowel Movements 1 # Incontinent Bowel Movements 0 Result Diagrams: 02/27/18 05:55 02/27/18 05:55 Objective Remarks: GENERAL: 32-year-old male currently on TP via tracheostomy 8.0 Shiley HEENT: NCAT, pupils are equal round react about 3 mm bilaterally. Extraocular muscles are intact. NECK: Trachea midline. Tracheostomy site is clean dry and intact CHEST: Air entry equal bilaterally, improving rhonchi. TP CARDIOVASCULAR: RRR. S1, S2 no S4. Without murmur ABDOMEN: Soft, mild tenderness on palpation, new PEG tube site with minimal yellowish white discharge : Positive scrotal edema MUSCULOSKELETAL: Warm and well perfused, maculopapular rash on thorax, bilateral upper and lower extremities resolving. 1+ bilateral upper and lower extremity peripheral edema NEUROLOGICAL: Follows commands by squeezing bilateral upper and bilateral lower extremities weakly.Talks over trach. No obvious focal deficits Assessment and Plan - Assessment and Plan Plan: Neuro/Psych: Seizure disorder NOS History of EtOH sober 4 -6weeks History of anorexia/bulimia Acute metabolic encephalopathy Currently on dexmedetomidine- wean to DC. USe IV Ativan PRN for anxiety Continue levetiracetam 500 BID (home dose) Quetiapine 300 twice daily, Haldol 2 mg p.o. twice daily. Oxycodone liquid 15 mg every 6 hours. Valproic acid 250 milligrams twice daily Started on Ativan 0.5 mg p.o. every 6 hours 02/26 clonidine to 0.2 mg p.o. every 8 hours Patient has a previous history of heavy EtOH abuse and bulimia as per mother Continue thiamine 100 mg twice daily CV: Pulmonary edema-resolving In-hospital cardiac arrest V. fib arrest Cardiogenic Shock-- resolved Severe LV systolic dysfunction- resolving. Septic shock-resolved Evaluated by Dr. Townsend. No further cardiac workup planned at this time. Echo 01/28: severe LV systolic dysfunction, EF 20-25%. mildly depressed RV function. no valvular lesions. Echocardiogram 02/14 - the left ventricular systolic function normal with an estimated EF in the range of 60-65%. No RWMA 02/21: Repeat limited echo Moderately dilated left ventricle. LV ejection fraction 40%. Diuresis with IV Lasix 20 mg every q6h changed to q12 Continue daily ASA 325 mg daily. Continued PO thiamine supplementation for ? beriberi Resp: Acute hypoxic respiratory failure- recurrent, now resolved Probable ARDS Pulmonary edema Developed severe pulmonary edema placed back on ventilator 02/20 night Now remains of the ventilator last 24 hours. Continue T-piece Aggressive diuresis as above Extubated 02/05, reintubated 02/05 for respiratory failure. Status post tracheostomy by Dr. Serna 02/08 Albuterol/ipratropium aerosols every 6 hours with albuterol aerosols every 2 hours as needed for dyspnea Vent bundle, hob elevated. wean fio2 for goal spo2 > 90%. CT pulmonary angiogram revealed no o pulmonary embolus. See ID section for antibiotics Improving chest x-ray and oxygenation GI: Dislodged G-tube without evidence of peritoneal leak Pancreatic pseudocyst on CT 02/21 Elevated lipase/mild pancreatitis-- resolved Left hepatic pneumobilia history of chronic pancreatitis C. Difficile Colitis G-tube replaced 02/23, tolerating tube feeds Gastrografin study did not show any leakage into the peritoneum Discussed extensively on 02/21/[address] Watt and Dr. Horn Docusate serum/senna 1 tablet twice daily for bowel regimen Renal/ : Acute kidney injury-- resolved Creatinine peaked around 6, slowly normalized Nephrology has signed off IV Lasix as above, creatinine remains normal with aggressive diuresis Endo: Sliding scale insulin with Accu-Cheks to maintain euglycemia aspart insulin every 6 hours, Heme: Normocytic anemia Thrombocytosis Monitor CBC daily. Follow trends. s/p 1 unit of PRBC 02/23/2018 Continue aspirin Iron studies revealed low FE/TIBC and elevated ferritin. Likely this is reactive thrombocytosis. ID: Severe sepsis-improving C. Difficile Colitis F/u sputum blood and urine culture from 02/21-negative to date Dislodged G-tube without evidence of peritonitis GI reconsulted to evaluate PEG site for infection Blood cultures on 01/28 and 01/31 showed coagulase negative staph hominis, likely contamination Sputum, UA and influenza all NGTD Continue ABX per ID. On Zyvox, Micafungin, Aztreonam, also on IV Flagyl for and p.o. vancomycin for C. difficile. s/p Zosyn for 7 days to treat pneumonia, d/c on 02/05 02/08 Oliva albicans Bronc samples 02/17 follow-up FEN: Hypomagnesia Hypopotassemia Replace electrolytes as clinically indicated. MSK PT evaluate and treat DERM: Diffuse macular papular rash likely secondary to cefepime resolved Treated with H2 viviana, diphenhydramine and methylprednisolone succinate. Added cefepime to adverse reaction with rash Access: - 01/29 - 02/05 right SC TLC Prophylaxis -GI-famotidine -DVT SCD/ Subcutaneous heparin Level 2 Clinically improving off ventilator. Chest x-ray showing improvement. Consult placed to hospitalist to assume care in a.m. Patient is cleared from critical care standpoint for transfer to select/LTAC facility Code Status: Full
--- NOTE | 2018-02-27 12:36 | P.PNID ---
Subjective Remarks: Patient is awake and alert. Notes anxiety. On Trach collar. No distress. Noted to have loose stools. Also on tube feedings. Afebrile. Occlusive thrombus of the right basilic vein noted on ultrasound. Status post tracheostomy 02/08/2018. This is a 32-year-old white male who presented to the emergency department with 2-day history of nausea, vomiting, and diarrhea. The patient ended up intubated after he went into ventricular fibrillation cardiac arrest and was resuscitated. He also was noted to have seizure activity. Antibiotics: IV Flagyl PO Vanco Aztreonam. Lines: Has peripheral IV Lines ok Past Medical History: PAST MEDICAL HISTORY: Alcohol abuse, gastroesophageal reflux disease, hernia, depression, pancreatitis, seizure disorder, left inguinal hernia repair. Allergies/Adverse Reactions: Allergies Sulfa (Sulfonamide Antibiotics) Allergy (Severe, Verified 10/11/17 07:56) hives cefepime Adverse Reaction (Intermediate, Verified 02/15/18 10:55) Rash, Generalized Objective Vital Signs 02/26/18 13:00 02/26/18 14:00 02/26/18 15:00 Temperature Pulse Rate 78 59 L 65 Respiratory Rate 32 H 22 22 Blood Pressure 145/83 H 156/88 H 153/87 H Pulse Oximetry 98 100 97 02/26/18 16:00 02/26/18 17:00 02/26/18 18:00 Temperature 98.3 F Pulse Rate 69 62 59 L Respiratory Rate 29 H 25 H 24 Blood Pressure 177/82 H 156/86 H Pulse Oximetry 95 97 97 02/26/18 19:00 02/26/18 20:00 02/26/18 20:48 Temperature 98.9 F Pulse Rate 75 60 Respiratory Rate 30 H 24 Blood Pressure 153/82 H Pulse Oximetry 97 98 98 02/26/18 22:00 02/27/18 00:00 02/27/18 02:00 Temperature 97.6 F Pulse Rate 79 62 64 Respiratory Rate 24 Blood Pressure 149/83 H Pulse Oximetry 97 02/27/18 04:00 02/27/18 05:27 02/27/18 06:00 Temperature 98.5 F Pulse Rate 68 73 Respiratory Rate 23 Blood Pressure 173/85 H Pulse Oximetry 99 97 Intake & Output 02/26/18 02/27/18 02/27/18 18:59 06:59 18:59 Intake Total 1735 / 1735 1432 / 1432 Output Total 3600 / 3600 2300 / 2300 Balance -1865 / -1865 -868 / -868 Weight 73 kg Intake: IV 550 / 550 800 / 800 Precedex Inj 1,000 MCG In NS 250 / 250 500 / 500 Inj 240 ML @ 0.2 MCG/KG/HR 4.27 mls/hr IV.CONT TITRATE PRN Rx# :[id number] Azactam Inj 2 GM In NS Inj 100 100 / 100 100 / 100 ML @ 200 mls/hr IV.SIG Q8H GERMAINE Rx#:[id number] Flagyl 500 MG Inj 100 ML @ 100 200 / 200 200 / 200 mls/hr IV.SIG Q6H GERMAINE Rx#: [id number] Oral 0 / 0 0 / 0 Tube Feeding 870 / 870 632 / 632 Tube Irrigant 200 / 200 Water Bolus Amount 75 / 75 Other 40 / 40 Output: Urine 3600 / 3600 2100 / 2100 Stool 0 / 0 200 / 200 Urine/Stool Mix 0 / 0 Other: Other Intake Source Saline Solution # Voids 0 # Incontinent Voids 0 Date of Last Bowel Movement 02/26/18 02/27/18 # Bowel Movements 1 # Incontinent Bowel Movements 0 02/26/18 12:15 Fluid - Other Gram Stain - Final 02/26/18 12:15 Fluid - Other Wound Culture - Pending 02/21/18 10:44 Blood - Peripheral Aerobic Blood Culture - Final No growth in 5 days 02/21/18 10:44 Blood - Peripheral Anaerobic Blood Culture - Final No growth in 5 days 02/21/18 10:23 Blood - Peripheral Aerobic Blood Culture - Final No growth in 5 days 02/21/18 10:23 Blood - Peripheral Anaerobic Blood Culture - Final No growth in 5 days 02/17/18 13:20 Bronchial Washings - Right Upper Lobe Acid Fast Bacilli Smear - Final No acid fast bacilli seen 02/17/18 13:20 Bronchial Washings - Right Upper Lobe Mycobacterial Culture - Preliminary No growth in 1 week Lab - Hematology Results 02/27/18 05:55 WBC 11.4 H RBC 3.17 L Hgb 10.1 L Hct 29.4 L MCV 92.8 MCH 32.0 MCHC 34.5 RDW 18.4 H Plt Count 798 H MPV 7.1 Lab - Chemistry Results 02/25/18 02/25/18 02/26/18 17:03 21:06 00:52 Sodium Potassium Chloride Carbon Dioxide Anion Gap BUN Creatinine Estimated GFR POC Glucose 128 H 118 H 123 H Random Glucose Calcium Magnesium Total Bilirubin AST ALT Alkaline Phosphatase Total Protein Albumin 02/26/18 02/26/18 02/26/18 04:13 05:27 08:31 Sodium 144 Potassium 3.7 Chloride 104 Carbon Dioxide 31.9 Anion Gap 8 BUN 8 Creatinine 0.63 Estimated GFR Greater than 89 POC Glucose 128 H 117 H Random Glucose 110 H Calcium 8.3 L Magnesium Total Bilirubin 0.2 AST 30 ALT 19 Alkaline Phosphatase 117 Total Protein 5.9 L Albumin 1.8 L 02/26/18 02/26/18 02/26/18 11:41 16:31 19:50 Sodium Potassium Chloride Carbon Dioxide Anion Gap BUN Creatinine Estimated GFR POC Glucose 107 124 H 128 H Random Glucose Calcium Magnesium Total Bilirubin AST ALT Alkaline Phosphatase Total Protein Albumin 02/27/18 02/27/18 02/27/18 00:19 05:32 05:55 Sodium 142 Potassium 4.1 Chloride 102 Carbon Dioxide 31.6 Anion Gap 8 BUN 12 Creatinine 0.58 L Estimated GFR Greater than 89 POC Glucose 118 H 96 Random Glucose 109 H Calcium 9.0 Magnesium 1.5 Total Bilirubin 0.2 AST 46 H ALT 23 Alkaline Phosphatase 130 H Total Protein 6.2 L Albumin 2.0 L Imaging: ITS Impressions Gallbladder Ultrasound 01/30/18 00:00 CONCLUSION: 1. Unremarkable study. Abdomen/Bladder Ultrasound 01/30/18 15:17 CONCLUSION: 1. Negative renal sonogram. Head CT 02/06/18 03:50 CONCLUSION: 1. No acute intracranial abnormalities. . Head MRI 02/09/18 00:00 CONCLUSION: 1. Normal MRI of the brain. 2. Sinusitis and mastoiditis. Chest CTA 02/14/18 00:00 CONCLUSION: No evidence of pulmonary embolism. New right upper lobe pneumonia. Improving aeration on the left. Abdomen/Pelvis CT 02/20/18 00:00 CONCLUSION: 1. Interval development of 6 cm smooth margin low density cystic structure about the tail of the pancreas suggesting possible pseudocyst formation. 2. Percutaneous gastrostomy in place. No evidence of free intraperitoneal gas or free fluid. 3. Development of diffuse anasarca. 4. Interval development development of moderate-sized right pleural effusion and multifocal subsegmental areas of infiltrate in the right lower lung and decrease in size of left pleural effusion. Chest CT 02/21/18 00:00 CONCLUSION: 1. G-tube is within the anterior abdominal wall left rectus muscle with a sinus tract extending to the stomach. Findings called to Dr. Allen at the time of dictation. 2. Slight worsening of bilateral patchy airspace consolidation and bilateral effusions since February 20. 3. Tracheostomy in good position. Abdomen X-Ray 02/21/18 17:10 CONCLUSION: No peritoneal leakage identified with Gastrografin injection. Venous Doppler Study 02/24/18 00:00 CONCLUSION: 1. There is occlusive thrombus within the proximal right basilic vein. 2. The remaining veins in the right upper extremity are patent. Chest X-Ray 02/27/18 06:00 CONCLUSION: 1. Improving pulmonary edema pattern of patchy airspace and interstitial opacities. Physical Exam: PHYSICAL EXAMINATION: GENERAL: Awake. No distress. HEENT: Pupils are equal and reactive. EOMI. No icterus. NECK: No adenopathy or swelling. LUNGS: Decreased breath sounds. HEART: Regular S1 and S2. No murmurs heard. ABDOMEN: Bowel sounds present. Soft. No tenderness. No mass palpable. EXTREMITIES: No clubbing, cyanosis. edema of the hands. Swelling at RUE is decreased. SKIN: No rash. NEUROLOGIC: Non focal. Assessment and Plan - Plan IMPRESSION: 1. Possible sepsis. However cultures have been negative. Previous staph coagulase positive blood culture felt to be contamination. Subsequent cultures negative. No clear source. 2. Skin rash. Likely drug related. Probably cefepime was associated. Resolved. 3. Pneumonia. Suspect aspiration. now with suspected CHF. 4. Status post cardiac arrest. 5. Acute respiratory failure. Patient now post tracheostomy. 6. Acute renal failure. Improved. 7. Seizure disorder. 8. Oliva UTI. Treated. 9. Leukocytosis improved. 10. C. difficile colitis. 11. Fever. ? etiology. Worsened lung infiltrates. May have peritonitis secondary to peg tube migrating into peritoneum. ? aspiration. Temp improved. 12. Occlusive thrombus of the right basilic vein noted on ultrasound. Doing well and stools improved. RECOMMENDATIONS: 1. Stop Aztreonam. 2. Stop Flagyl. 3. Continue p.o. vancomycin for C. difficile until 03/09. I will sign off now. I will be off 02/28 through 03/07. Please reconsult ID if further input is needed.
[2018-02-28] MEDS: Morphine Inj 4 MG/ML Vial IV.PUSH PRN ×2 (02:11→10:15)
[2018-02-28] MEDS: Oral Hygiene Kit OROPHARYNG SCH (04:52)
[2018-02-28] MEDS: Insulin NovoLOG Aspart Correctional Sugar Inj SQ SCH ×2 (04:52→08:25)
[2018-02-28] MEDS: LORazepam 0.5 MG Tablet PO SCH (05:55)
[2018-02-28] MEDS: Chlorhexidine 0.12% Oral Kit 15 ML UDC OROPHARYNG SCH (08:25)
[2018-02-28] MEDS: Famotidine 20 MG Tablet G-TUBE SCH (10:23)
[2018-02-28] MEDS: Magnesium Oxide 400 MG Tablet PO SCH (10:23)
[2018-02-28] MEDS: Aspirin 325 MG Tablet PO SCH (10:25)
[2018-02-28] MEDS: Heparin - SQ 10,000 UNITS/ML Vial SQ SCH (10:26)
[2018-02-28] MEDS: levETIRAcetam 500 MG Tablet NG/OG SCH (10:26)
[2018-02-28] MEDS: Senna/Docusate Sodium 8.6/50 MG Tablet PO SCH (10:29)
[2018-02-28] MEDS: Carboxymethylcellulose 0.5% Opth Drops 15 ML Bottle EACH EYE SCH (10:29)
[2018-02-28] MEDS: Potassium Chloride 25 MEQ Effervescent Tablet NG/OG SCH (10:31)
--- NOTE | 2018-02-28 10:43 | P.PNIM ---
Subjective Interval history: pt doing well. asking for pain meds. Physical Exam Vital signs: Vital Signs 02/27/18 11:00 02/27/18 12:00 02/27/18 13:00 Temperature 98.3 F Pulse Rate 69 77 70 Respiratory Rate 27 H 29 H 27 H Blood Pressure 168/81 H 148/70 H 150/72 H Pulse Oximetry 99 99 99 02/27/18 13:43 02/27/18 14:00 02/27/18 14:36 Temperature Pulse Rate 66 Respiratory Rate 16 28 H Blood Pressure 143/80 H Pulse Oximetry 99 96 02/27/18 15:00 02/27/18 16:00 02/27/18 17:00 Temperature Pulse Rate 67 72 75 Respiratory Rate 26 H 28 H 26 H Blood Pressure 155/78 H 151/85 H 140/80 Pulse Oximetry 98 100 99 02/27/18 18:00 02/27/18 19:00 02/27/18 20:00 Temperature 99.3 F Pulse Rate 94 H 98 H 102 H Respiratory Rate 36 H 36 H 29 H Blood Pressure 154/77 H 159/90 H 147/87 H Pulse Oximetry 97 91 L 97 02/27/18 21:00 02/27/18 21:37 02/27/18 22:00 Temperature Pulse Rate 106 H 140 H Respiratory Rate 22 30 H Blood Pressure 146/77 H Pulse Oximetry 96 100 98 02/27/18 22:01 02/27/18 22:09 02/27/18 23:00 Temperature Pulse Rate 138 H 133 H 115 H Respiratory Rate 30 H 26 H 21 Blood Pressure 102/58 L 125/63 123/60 Pulse Oximetry 98 98 98 02/28/18 00:00 02/28/18 02:00 02/28/18 04:00 Temperature 98.6 F 99.3 F Pulse Rate 94 H 100 H 94 H Respiratory Rate 20 Blood Pressure 132/71 Pulse Oximetry 91 L 02/28/18 06:00 02/28/18 08:00 Temperature Pulse Rate 96 H Respiratory Rate Blood Pressure Pulse Oximetry 97 Intake & Output 02/27/18 02/28/18 02/28/18 18:59 06:59 18:59 Intake Total 400 / 400 677 / 677 Output Total 3450 / 3450 1070 / 1070 250 / 250 Balance -3050 / -3050 -393 / -393 -250 / -250 Weight 71 kg Intake: IV 200 / 200 200 / 200 Precedex Inj 1,000 MCG In NS 200 / 200 Inj 240 ML @ 0.2 MCG/KG/HR 4.27 mls/hr IV.CONT TITRATE PRN Rx# :[id number] Azactam Inj 2 GM In NS Inj 100 100 / 100 ML @ 200 mls/hr IV.SIG Q8H GERMAINE Rx#:[id number] Flagyl 500 MG Inj 100 ML @ 100 100 / 100 mls/hr IV.SIG Q6H GERMAINE Rx#: [id number] Oral 60 / 60 Tube Feeding 217 / 217 Water Bolus Amount 200 / 200 200 / 200 Output: Urine 3450 / 3450 1070 / 1070 250 / 250 Other: # Voids 3 Date of Last Bowel Movement 02/27/18 02/27/18 # Bowel Movements 5 trach .35% heart reg lung course bs abd peg. ext no edema - Urinary Catheter Management Coude Cath placed during this visit: yes, but has since been removed by the nurse Reason for continuing: Decision to DC catheter Insertion date: 01/28/18 Insertion time: 13:15 Removal date: 02/03/18 Removal time: 15:15 Straight Cath placed during this visit: yes, but has since been removed by the nurse Reason for continuing: Acute urinary retention Insertion date: 02/12/18 Insertion time: 08:00 Removal date: 02/04/18 Indwelling Urethral Catheter Cath placed during this visit: yes, but has since been removed by the nurse Reason for continuing: Decision to DC catheter Insertion date: 02/12/18 Insertion time: 07:00 Removal date: 02/17/18 Removal time: 15:10 Results - Labs CBC & Chem 7: 02/27/18 05:55 02/27/18 05:55 Laboratory Results - last 24 hr 02/18/18 02/27/18 02/27/18 20:54 12:35 19:59 POC Glucose 112 H 87 JAK2 Mutation (PCR) 02/27/18 02/28/18 23:56 04:48 POC Glucose 106 105 JAK2 Mutation (PCR) Microbiology 02/26/18 12:15 Fluid - Other Gram Stain - Final 02/26/18 12:15 Fluid - Other Wound Culture - Preliminary Assessment and Plan - Assessment (1) Cardiac arrest with ventricular fibrillation Code(s): I46.9 - Cardiac arrest, cause unspecified; I49.01 - Ventricular fibrillation Status: Acute Plan: Assessment and Plan CV: In-hospital cardiac arrest Pulmonary edema-resolving V. fib arrest Cardiogenic Shock-- resolved Severe LV systolic dysfunction- resolving. Septic shock-resolved Evaluated by Dr. Townsend. felt to be stunned myocardia from severe hypokalemia Echo 01/28: severe LV systolic dysfunction, EF 20-25%. mildly depressed RV function. no valvular lesions. Echocardiogram 02/14 - the left ventricular systolic function normal with an estimated EF in the range of 60-65%. No RWMA 02/21: Repeat limited echo Moderately dilated left ventricle. LV ejection fraction 40%. pt has been getting diuresis. monitor bmp at rehab. Continue daily ASA 325 mg daily. Seizure disorder NOS History of EtOH sober 4 -6weeks History of anorexia/bulimia Acute metabolic encephalopathy Currently off dexmedetomidine- Continue levetiracetam 500 BID (home dose) Quetiapine 300 twice daily, Haldol 2 mg p.o. twice daily. Oxycodone liquid 15 mg every 6 hours. Valproic acid 250 milligrams twice daily Started on Ativan 0.5 mg p.o. every 6 hours 02/26 clonidine to 0.2 mg p.o. every 8 hours Patient has a previous history of heavy EtOH abuse and bulimia as per mother Continue thiamine 100 mg twice daily Acute hypoxic respiratory failure- recurrent, now resolved Probable ARDS Pulmonary edema Developed severe pulmonary edema placed back on ventilator 02/20 night Extubated 02/05, reintubated 02/05 for respiratory failure. Status post tracheostomy by Dr. Serna 02/08 Albuterol/ipratropium aerosols every 6 hours with albuterol aerosols every 2 hours as needed for dyspnea CT pulmonary angiogram revealed no o pulmonary embolus. Dislodged G-tube without evidence of peritoneal leak Pancreatic pseudocyst on CT 02/21 Elevated lipase/mild pancreatitis-- resolved Left hepatic pneumobilia history of chronic pancreatitis C. Difficile Colitis G-tube replaced 02/23, tolerating tube feeds Gastrografin study did not show any leakage into the peritoneum Discussed extensively on 02/21/[address] Watt and Dr. Horn Acute kidney injury-- resolved Creatinine peaked around 6, slowly normalized Nephrology has signed off Severe sepsis-improving C. Difficile Colitis F/u sputum blood and urine culture from 02/21-negative to date Dislodged G-tube without evidence of peritonitis GI reconsulted to evaluate PEG site for infection. no infection per GI Blood cultures on 01/28 and 01/31 showed coagulase negative staph hominis, likely contamination Sputum, UA and influenza all NGTD s/p Zosyn for 7 days to treat pneumonia, d/c on 02/05 Pt to complete vanco for cdiff on 03/09 per ID Diffuse macular papular rash likely secondary to cefepime resolved Treated with H2 viviana, diphenhydramine and methylprednisolone succinate. Added cefepime to adverse reaction with rash (2) Alcohol abuse Code(s): F10.10 - Alcohol abuse, uncomplicated Status: Acute (3) Hypokalemia due to inadequate potassium intake Code(s): E87.6 - Hypokalemia Status: Acute (4) Cardiomyopathy Code(s): I42.9 - Cardiomyopathy, unspecified Status: Acute
[2018-02-28 11:18] VITALS: BP 169/91; PULSE 82; RESP 22; TEMP 98.9; O2SAT 84
--- NOTE | 2018-02-28 12:50 | XR ---
EXAM DATE: 02/28/2018 12:00 AM EDT AGE/SEX: 32 years / Male INDICATIONS: Tracheostomy placement CLINICAL DATA: This is the patient's subsequent encounter. Patient reports that signs and symptoms h ave been present for 1 month and indicates a pain score of Nonresponsive. MEDICAL/SURGICAL HISTORY: Non-responsive. Non-responsive. COMPARISON: C, CHEST 1V SINGLE AP, 02/28/2018. . FINDINGS: A single AP semierect portable view of the chest was obtained and demonstrates the tracheostomy tube in place. Patchy mild opacities are noted in both lungs greatest in the right upper lobe. This does n ot appear significant change. There is no effusion. The bony thorax is intact. CONCLUSION: 1. Interval placement of tracheostomy tube. 2. Patchy opacities in both lungs without significant change. Electronically signed by: Robby Hatfield MD 02/28/2018 12:48 PM EDT
--- NOTE | 2018-03-05 14:44 | P.DS ---
Date of admission: 01/28/18 10:04 Primary care physician: UNKNOWN Anticipated date of discharge: 02/28/18 Brief History from admission: This is a 32-year-old male. Admission 01/28/2018. Past medical history includes seizure disorder/noncompliant with levetiracetam, previous EtOH sober for 4 weeks, anorexia, gastroesophageal reflux disease and chronic pancreatitis. Patient presented to [facility] 01/28/2018 with a two-day history of nausea vomiting and diarrhea. Patient's mother/discussed at bedside stated she had just had a "stomach flu" which she has currently recovered. Mom states that the patient has become fairly dehydrated is been having some cramping of his hands. She is worried that he is getting dehydrated and his potassium might begin low. He was unable to tolerate a banana so she gave him some potassium pills p.o. which she also did not tolerate and threw up. Sober 4 weeks according to mother. Patient was noted to have a low potassium at 2.0. Creatinine of 4.0. This is in line with his previous hospitalizations for acute dehydration. Lipase was slightly elevated. Patient does have a history of seizure disorder which is not compliant with levetiracetam. ED physician was called into room because the RN believed he had a seizure. Patient was unresponsive. Mother states this was not like any seizure that she had seen. Pulses not palpable therefore CPR was initiated. Initial rhythm was V. fib. Patient received amiodarone, lidocaine, epinephrine, bicarbonate, magnesium during the 35 minute code with return of spontaneous circulation after 35 minutes. Pupils are about 9 mils bilaterally and 6. When I saw the patient patient was actively thrashing moving all 4 extremities spontaneously but not to command. Pupils are round 8 mm bilaterally and nonreactive. Brain CT revealed no acute findings. CT thorax revealed a left upper and lower lobe. CT abdomen pelvis pending at time of dictation. Likely, troponin pending. EKG revealed incomplete right bundle block with ST depression in the inferior and lateral leads. Cardiology consulted. They will evaluate after stat echocardiogram and troponins been completed. Potassium will be replaced pending BMP DS: Diagnosis - Discharge Diagnosis (1) Cardiac arrest with ventricular fibrillation Status: Acute (2) Alcohol abuse Status: Acute (3) Hypokalemia due to inadequate potassium intake Status: Acute (4) Cardiomyopathy Status: Acute DS: Medications - Discharge Medications Prescriptions: furosemide 20 mg PO DAILY 7 Days #7 tab potassium chloride 20 meq PO DAILY 7 Days #14 cap DS: Summary Hospital Course: Assessment and Plan - Assessment (1) Cardiac arrest with ventricular fibrillation Code(s): I46.9 - Cardiac arrest, cause unspecified; I49.01 - Ventricular fibrillation Status: Acute Plan: Assessment and Plan CV: In-hospital cardiac arrest Pulmonary edema-resolving V. fib arrest Cardiogenic Shock-- resolved Severe LV systolic dysfunction- resolving. Septic shock-resolved Evaluated by Dr. Townsend. felt to be stunned myocardia from severe hypokalemia Echo 01/28: severe LV systolic dysfunction, EF 20-25%. mildly depressed RV function. no valvular lesions. Echocardiogram 02/14 - the left ventricular systolic function normal with an estimated EF in the range of 60-65%. No RWMA 02/21: Repeat limited echo Moderately dilated left ventricle. LV ejection fraction 40%. pt has been getting diuresis. monitor bmp at rehab. Continue daily ASA 325 mg daily. Pt stable. transfer [facility] today. tolerating liquid diet. Seizure disorder NOS History of EtOH sober 4 -6weeks History of anorexia/bulimia Acute metabolic encephalopathy Currently off dexmedetomidine- Continue levetiracetam 500 BID (home dose) Quetiapine 300 twice daily, Haldol 2 mg p.o. twice daily. Oxycodone liquid 15 mg every 6 hours. Valproic acid 250 milligrams twice daily Started on Ativan 0.5 mg p.o. every 6 hours 02/26 clonidine to 0.2 mg p.o. every 8 hours Patient has a previous history of heavy EtOH abuse and bulimia as per mother Continue thiamine 100 mg twice daily Acute hypoxic respiratory failure- recurrent, now resolved Probable ARDS Pulmonary edema Developed severe pulmonary edema placed back on ventilator 02/20 night Extubated 02/05, reintubated 02/05 for respiratory failure. Status post tracheostomy by Dr. Serna 02/08 Albuterol/ipratropium aerosols every 6 hours with albuterol aerosols every 2 hours as needed for dyspnea CT pulmonary angiogram revealed no o pulmonary embolus. Dislodged G-tube without evidence of peritoneal leak Pancreatic pseudocyst on CT 02/21 Elevated lipase/mild pancreatitis-- resolved Left hepatic pneumobilia history of chronic pancreatitis C. Difficile Colitis G-tube replaced 02/23, tolerating tube feeds Gastrografin study did not show any leakage into the peritoneum Discussed extensively on 02/21/[address] Watt and Dr. Sarabia Acute kidney injury-- resolved Creatinine peaked around 6, slowly normalized Nephrology has signed off Severe sepsis-improving C. Difficile Colitis F/u sputum blood and urine culture from 02/21-negative to date Dislodged G-tube without evidence of peritonitis GI reconsulted to evaluate PEG site for infection. no infection per GI Blood cultures on 01/28 and 01/31 showed coagulase negative staph hominis, likely contamination Sputum, UA and influenza all NGTD s/p Zosyn for 7 days to treat pneumonia, d/c on 02/05 Pt to complete vanco for cdiff on 03/09 per ID Diffuse macular papular rash likely secondary to cefepime resolved Treated with H2 viviana, diphenhydramine and methylprednisolone succinate. Added cefepime to adverse reaction with rash (2) Alcohol abuse Code(s): F10.10 - Alcohol abuse, uncomplicated Status: Acute (3) Hypokalemia due to inadequate potassium intake Code(s): E87.6 - Hypokalemia Status: Acute (4) Cardiomyopathy Code(s): I42.9 - Cardiomyopathy, unspecified Status: Acute Documented By: Philip Ayala MD 02/28/18 1041 Signed By: <Electronically signed by Philip Ayala MD> 03/02/18 1406 - Time Spent with Patient Total time spent providing and/or coordinating discharge services: Greater than 30 minutes Results Procedures completed during hospitalization: trach peg intubation x 2 Labs on day of discharge: Preliminary micro results at discharge 02/17/18 13:20 Mycobacterial Culture - Preliminary Bronchial Washings - Right Upper Lobe No growth in 2 weeks 02/17/18 13:20 Fungal Culture - Preliminary Bronchial Washings - Right Upper Lobe - Impressions ITS Impressions Gallbladder Ultrasound 01/30/18 00:00 CONCLUSION: 1. Unremarkable study. Abdomen/Bladder Ultrasound 01/30/18 15:17 CONCLUSION: 1. Negative renal sonogram. Head CT 02/06/18 03:50 CONCLUSION: 1. No acute intracranial abnormalities. . Head MRI 02/09/18 00:00 CONCLUSION: 1. Normal MRI of the brain. 2. Sinusitis and mastoiditis. Chest CTA 02/14/18 00:00 CONCLUSION: No evidence of pulmonary embolism. New right upper lobe pneumonia. Improving aeration on the left. Abdomen/Pelvis CT 02/20/18 00:00 CONCLUSION: 1. Interval development of 6 cm smooth margin low density cystic structure about the tail of the pancreas suggesting possible pseudocyst formation. 2. Percutaneous gastrostomy in place. No evidence of free intraperitoneal gas or free fluid. 3. Development of diffuse anasarca. 4. Interval development development of moderate-sized right pleural effusion and multifocal subsegmental areas of infiltrate in the right lower lung and decrease in size of left pleural effusion. Chest CT 02/21/18 00:00 CONCLUSION: 1. G-tube is within the anterior abdominal wall left rectus muscle with a sinus tract extending to the stomach. Findings called to Dr. Allen at the time of dictation. 2. Slight worsening of bilateral patchy airspace consolidation and bilateral effusions since February 20. 3. Tracheostomy in good position. Abdomen X-Ray 02/21/18 17:10 CONCLUSION: No peritoneal leakage identified with Gastrografin injection. Venous Doppler Study 02/24/18 00:00 CONCLUSION: 1. There is occlusive thrombus within the proximal right basilic vein. 2. The remaining veins in the right upper extremity are patent. Chest X-Ray 02/28/18 00:00 CONCLUSION: 1. Interval placement of tracheostomy tube. 2. Patchy opacities in both lungs without significant change. Discharge Plan - Discharge Disposition Patient Disposition: [facility] In[facility] - Discharge Condition Condition: Stable - Discharge Order Discharge Orders: Discharge Order (Routine); Ordered 02/28/18 Ordered By: Philip Ayala - Discharge Details Anticipated Discharge Date: 02/28/18 Discharge Comment: dc to rehab when arrangements made - Physicians Team Primary Care Provider: UNKNOWN, Attending Provider: Philip Ayala Other Providers: Wing Jazzy Main MD ; Tj Ruby MD ; Brian Collado MD ; Travis Cook MD ; [facility] ; Juan Pruitt MD ; Carole Sarabia MD ; Philip Ayala MD
== END 2018-02-28 12:30 ==
LOC: NEPC 07:42 → HIMC 10:04
PROVIDERS: ADMIT Hospitalist; ATTEND Hospitalist

== ENCOUNTER 2018-04-28 21:33 | Inpatient (IN) ==
[2018-04-29 00:05] LABS: Baso # (Auto) 0.1 th/mm3 (0.0-0.2); Baso % (Auto) 0.8 % (0.0-2.0); Eos % (Auto) 0.7 % (0.0-4.0); Hematocrit 50.3 % (39.0-51.0); Hemoglobin 18.2 gm/dL (13.0-17.0); Lymph # (Auto) 2.2 th/mm3 (1.0-4.8); Lymph % (Auto) 30.3 % (9.0-44.0); Mean Corpuscular Hemoglobin 33.1 pg (27.0-34.0); Mean Corpuscular Volume 91.8 fL (80.0-100.0); Mean Platelet Volume 7.3 fL (7.0-11.0); Mono # (Auto) 0.8 th/mm3 (0.0-0.9); Mono % (Auto) 11.5 % (0.0-8.0); Neut # (Auto) 4.1 th/mm3 (1.8-7.7); Neut % (Auto) 56.7 % (16.0-70.0); Platelet Count 336 th/mm3 (150-450); Red Blood Count 5.48 mil/mm3 (4.50-5.90); Red Cell Distribution Width 13.5 % (11.6-17.2); White Blood Count 7.3 th/mm3 (4.0-11.0)
[2018-04-29 00:06] LABS: Mean Corpuscular HGB Conc 36.1 % (32.0-36.0)
[2018-04-29] MEDS ORDERED: Morphine Inj 4 MG/ML Vial IV.PUSH ONE (00:09)
[2018-04-29 00:15] LABS: Alanine Aminotransferase 20 U/L (12-78); Albumin 4.6 g/dL (3.4-5.0); Alkaline Phosphatase 138 U/L (45-117); Aspartate Aminotransferase 34 U/L (15-37); Blood Urea Nitrogen 34 mg/dL (7-18); Calcium 9.8 mg/dL (8.5-10.1); Chloride 58 meq/L (98-107); Glomerular Filtration Rate 35 mL/min (>89); Glucose,Random 129 mg/dL (74-106); Lipase 105 U/L (73-393); Magnesium 2.1 mg/dL (1.5-2.5); Total Protein 8.4 g/dL (6.4-8.2)
[2018-04-29] MEDS ORDERED: Sod Chloride 0.9% Inj 1,000 ML IV.SIG SCH (00:15)
[2018-04-29 00:26] LABS: Platelet Estimate Normal (Normal); Platelet Morphology Normal (Normal); RBC Morphology Normal (Normal)
[2018-04-29 00:31] LABS: Potassium 2.5 meq/L (3.5-5.1); Sodium 118 meq/L (136-145)
[2018-04-29 00:44] LABS: Anion Gap 15 meq/L (5-15)
--- NOTE | 2018-04-29 01:20 | ED ---
HPI General Chief complaint: Syncope Stated complaint: lightheaded, fell 3 times Time Seen by Provider: 04/28/18 23:08 History of Present Illness HPI narrative: patient is a 34 year old male known to me from previous ER visits presents to the ER for evaluation of nausea/vomiting and generally not feeling very well. [facility] Patient also recently had a seizure and has a history of seizure disorders and has been taking his anti epileptics. Patient denies fevers, cough congestion. Denies CP or palpiations. Symptoms have been gradually coming on but for the past few hours has felt as though he was going to pass out. Symptoms moderate, associated s/s, context and duration as above. Related Data Home Medications Medication Instructions Recorded Confirmed levetiracetam [Keppra] 500 mg PO Q12H 01/28/18 04/29/18 pantoprazole [Protonix] 40 mg PO BID 01/28/18 04/29/18 Previous Rx's Medication Instructions Recorded aspirin 325 mg PO DAILY tab 02/28/18 lorazepam 0.5 mg PO Q6HR tab 02/28/18 oxycodone 15 mg PO Q6H ml 02/28/18 quetiapine 300 mg PO BID tab 02/28/18 thiamine HCl (vitamin B1) 100 mg PO BID tab 02/28/18 valproic acid (as sodium salt) 250 mg PO BID ml 02/28/18 ondansetron HCl [Zofran] 4 mg PO Q8H PRN #20 tab 03/15/18 Allergies Allergy/AdvReac Type Severity Reaction Status Date / Time Sulfa (Sulfonamide Allergy Severe hives Verified 04/28/18 23:43 Antibiotics) cefepime AdvReac Intermediate Rash, Verified 04/28/18 23:43 Generalized Review of Systems ROS: all other systems reviewed are negative [facility] Family History Family History Other Family history non-contributory Social History Social History Substance History: Past History Second Hand Smoke Exposure: No Smoking Status: Former smoker Tobacco Type: Cigarettes How Often Do You Have a Drink Containing Alcohol: Never Hx Recent Travel: No Substance Abuse Detail Alcohol: Substance Use Status: Early Remission Immunization History Tetanus Immunization: <5 Years Exam Narrative Exam Narrative: GENERAL: WD/WN in nad. SKIN: Focused skin assessment warm/dry. HEAD: Atraumatic. Normocephalic. EYES: Pupils equal and round. No scleral icterus. No injection or drainage. ENT: No nasal bleeding or discharge. Mucous membranes pink and moist. NECK: Trachea midline. No JVD. CARDIOVASCULAR: Regular rate and rhythm. No murmur appreciated. RESPIRATORY: No accessory muscle use. Clear to auscultation. Breath sounds equal bilaterally. GASTROINTESTINAL: Abdomen soft, non-tender, nondistended. Hepatic and splenic margins not palpable. No rebound, no percussive tenderness. MUSCULOSKELETAL: No obvious deformities. No clubbing. No cyanosis. No edema. NEUROLOGICAL: Awake and alert. No obvious cranial nerve deficits. Motor grossly within normal limits. Normal speech. No focal weakness. PSYCHIATRIC: Appropriate mood and affect; insight and judgment normal. Course Initial Documented Vital Signs Temperature 99.1 F 04/28/18 21:50 Pulse Rate 101 H 04/28/18 21:50 Respiratory Rate 24 04/28/18 21:50 Blood Pressure 111/64 04/28/18 21:50 Pulse Oximetry 95 04/28/18 21:50 Last Documented Vital Signs Temperature 99.1 F 04/28/18 21:50 Pulse Rate 101 H 04/28/18 21:50 Respiratory Rate 24 04/28/18 21:50 Blood Pressure 111/64 04/28/18 21:50 Pulse Oximetry 95 04/28/18 21:50 Medical Decision Making MDM Narrative Medical decision making narrative: Patient is a 32 year old male presents to the ER for evaluation of fatigue, nausea and weakness. Known to me from previous ER visits including one in january when he had an in hospital cardiac arrest. patient is a recovering alcoholic and informs me that he has not had a drink since before his cardiac arrest. 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 Today patient has multiple elctrolyte abnormalities including very low chloride at 58 and critical sodium and potassium at 118 and critically low potassium at 2.5 Patient also has acute kidney injury and appears dehydrated. I have added on TSH, T3, T4 and Cortisol levels. Magnesium as well. After discussing with Dr. Bird who also remembers him from previous admission he informs me that he was checked for this last time as well and it was normal. Patient also is very alkylotic and could be from GI loss of H+ or contraction. He actually appears fairly well but i speculate he has a yet unidentified metabolic or endocrine disorder. Dr. Bird will admit. CT A/P is still pending. His abdomen is benign. Potassium 40meq PO and 40meq IV ordered. NS 1L bolus. VSS. Medical Screen Exam Complete: Yes Emergency Medical Condition: Yes Lab Data Result diagrams: 04/28/18 23:33 04/28/18 23:33 Lab Results 04/28/18 04/28/18 Range/Units 23:33 23:33 WBC 7.3 (4.0-11.0) th/mm3 RBC 5.48 (4.50-5.90) mil/mm3 Hgb 18.2 H (13.0-17.0) gm/dL Hct 50.3 (39.0-51.0) % MCV 91.8 (80.0-100.0) fL MCH 33.1 (27.0-34.0) pg MCHC 36.1 H (32.0-36.0) % RDW 13.5 (11.6-17.2) % Plt Count 336 (150-450) th/mm3 MPV 7.3 (7.0-11.0) fL Prelim Diff (Auto) Slide review pending Neut % (Auto) 56.7 (16.0-70.0) % Lymph % (Auto) 30.3 (9.0-44.0) % [place] % (Auto) 11.5 H (0.0-8.0) % Eos % (Auto) 0.7 (0.0-4.0) % Baso % (Auto) 0.8 (0.0-2.0) % Neut # (Auto) 4.1 (1.8-7.7) th/mm3 Lymph # (Auto) 2.2 (1.0-4.8) th/mm3 [place] # (Auto) 0.8 (0.0-0.9) th/mm3 Eos # (Auto) 0.0 (0.0-0.4) th/mm3 Baso # (Auto) 0.1 (0.0-0.2) th/mm3 WBC Differential . Diff Scan Auto diff confirmed Differential Comment . Platelet Estimate Normal (Normal) Platelet Morphology Normal (Normal) RBC Morphology Normal (Normal) Sodium 118 L* (136-145) meq/L Potassium 2.5 L* (3.5-5.1) meq/L Chloride 58 L (98-107) meq/L Carbon Dioxide Greater than 45.0 H (21.0-32.0) meq/L Anion Gap 15 (5-15) meq/L BUN 34 H (7-18) mg/dL Creatinine 2.21 H (0.60-1.30) mg/dL Estimated GFR 35 L (>89) mL/min Random Glucose 129 H (74-106) mg/dL Calcium 9.8 (8.5-10.1) mg/dL Magnesium 2.1 (1.5-2.5) mg/dL Total Bilirubin 0.5 (0.2-1.0) mg/dL AST 34 (15-37) U/L ALT 20 (12-78) U/L Alkaline Phosphatase 138 H (45-117) U/L Total Protein 8.4 H (6.4-8.2) g/dL Albumin 4.6 (3.4-5.0) g/dL Lipase 105 (73-393) U/L Discharge Plan Discharge Disposition Patient Disposition: ED Admit(ED Internal Use Only) Physicians Team ED Provider: Bradford Krishnan Primary Care Provider: Primary Care Mariya Larson Attending Provider: Anand Bird Status ED Status: Admitted Patient
[2018-04-29] MEDS: Potassium Chlor 20 mEq Premix 20 MEQ/100 ML PIGGYBACK IV.SIG SCH ×2 (01:30→03:38)
[2018-04-29] MEDS ORDERED: Acetaminophen 325 MG Tablet PO PRN (01:31)
[2018-04-29] MEDS ORDERED: Bisacodyl 10 MG Supp RECTAL PRN (01:31)
[2018-04-29 01:39] LABS: Free T4 (Free Thyroxine) 1.85 ng/dL (0.76-1.46); Thyroid Stimulating Hormone 0.658 uIU/mL (0.358-3.740); Triiodothyronine (T3) Free 4.11 pg/mL (2.18-3.98)
--- NOTE | 2018-04-29 01:48 | CT ---
EXAM DATE: 04/29/2018 1:37 AM EST AGE/SEX: 32 years / Male INDICATIONS: Abdominal pain post fall. CLINICAL DATA: This is the patient's initial encounter. Patient reports that signs and symptoms have been present for 1 day and indicates a pain score of 5/10. MEDICAL/SURGICAL HISTORY: Pancreatitis. Seizures. Gastroesophageal reflux disease. Alcohol a buse . Left inguinal repair RADIATION DOSE: 6.64 CTDI (mGy) [place]PAR[place]: [facility] [place], 03/15/2018. [facility] [place] & [place]EL[place] W CONTRAS T, 02/20/2018. [facility] [place] & [place]EL[place] W/O CONTRAST, 01/28/2018. . TECHNIQUE: Multiple contiguous axial images were obtained through the abdomen. Images were obtained using multiple row detector helical technique. Using automated exposure control and adjustment of the mA and/or kV according to patient size, radiation dose was kept as low as reasonably achievable to o btain optimal diagnostic quality images. DICOM format image data is available electronically for rev iew and comparison. FINDINGS: Lower chest: No acute abnormality is identified. Hepatobiliary: Liver density is normal. No focal lesion is visualized on this noncontrast examination . No calcified gallstones are present. There is no bile duct dilatation. Kidneys: No hydronephrosis, stone, or mass. Adrenal Glands: Within normal limits. Spleen: Within normal limits. Pancreas: There is a mixed density cystic appearing lesion at the tail the pancreas measuring approxi mately 5.8 x 4.5 cm compared to 6.8 x 4.9 cm previously. It contains higher density material along th e posterior aspect. Remainder of the pancreas demonstrates no abnormality on this noncontrast examina tion. Vascular: The aorta is nonaneurysmal. Bowel/Mesentery: The stomach and small bowel demonstrate no abnormality. No acute colon abnormality i s seen. There is no free intraperitoneal air or fluid. The appendix is normal. Linear band extends fr om the anterior wall of the gastric body to the overlying rectus abdominis muscle with a scar at the skin surface. There is an area of scarring in the area of prior G-tube. Abdominal Wall: No hernia is visualized. Retroperitoneum: No lymphadenopathy. Bladder: No wall thickening or mass. Reproductive: Within normal limits. Inguinal: No lymphadenopathy or hernia. Musculoskeletal: No acute osseous abnormality is identified. CONCLUSION: 1. No acute abnormality is identified within the abdomen or pelvis on this noncontrast examination. 2. Decreased size of the complex cystic lesion at the tail the pancreas. Etiology is uncertain but a s described previously this could represent a pseudocyst if there is a known history of pancreatitis. This lesion was first visualized on the 02/20/2018 examination. Suggest attention to this at follow-u p imaging to confirm resolution. Pancreas protocol MRI with and without intravenous contrast could be obtained on an outpatient elective basis for further characterization, if needed. Electronically signed by: Alejandro Pate MD 04/29/2018 1:47 AM EST
[2018-04-29 02:10] LABS: Amphetamine Screen,Urine Neg (Neg); Barbiturate Screen,Urine Neg (Neg); Cannabinoid Screen,Urine Pos (Neg); Cocaine Screen,Urine Neg (Neg); Opiate Screen,Urine Pos (Neg)
--- NOTE | 2018-04-29 02:53 | P.HPCC ---
History of Present Illness Service: [facility] Primary Care Physician: No Primary Care Physician Chief Complaint: N/V History of Present Illness: 34 year old male. DOA 04/29/18. PMH Sz, ETOH, depression, admissions with hypoNa+, hypoK+ and VTach arrest to ED fore valuation of nausea/vomiting and generally not feeling very well. Patient was admitted late January 2018 with V. fib arrest thought to be secondary to hypokalemia. He eventually was trached and pegged. He has been decannulated and his PEG tube been removed. PEG tube is Located by a fistula tract. He is currently on levetiracetam and valproic acid, both of which can cause hyponatremia/SIADH. Patient also recently had a seizure recently and has a history of seizure disorders and has been taking his anti epileptics including levetiracetam and valproic acid.. He is on chronic benzodiazepines. Patient denies fevers, cough congestion. Denies CP or palpiations. Symptoms have been gradually coming on but for the past few hours has felt as though he was going to pass out. Na+ 118. K+ 2.5. Cr 2.2. received 80 mEq K+ in ED. Recheck at 0500. Due to previous admit, ICU for monitoring, Stella c/s. Currently requesting medications for anxiety. Inpatient Certification: I certify that the inpatient services were ordered in accordance with Medicare regulations governing the order. This includes certification that hospital inpatient services are reasonable and necessary and in the case of services not specified as inpatient-only under 42 CFR 419.22(n), that they are appropriately provided as inpatient services in accordance to with the 2-midnight benchmark under 43 CFR 412.3(e) Estimated Total Length of Stay (Days): 5 Plans for Post Hospital Care: Home Review of Systems Constitutional: Reports body ache(s), Denies anorexia, Denies chills, Denies daytime sleepiness Eyes: Denies blind spots, Denies blurry vision Ears, Nose, Mouth, and Throat: Reports dizziness, Denies abnormal hearing, Denies bleeding gums, Denies bad breath Cardiovascular: Denies chest pain, Denies rapid, pounding, or irregular heartbeat, Denies shortness of breath, Denies shortness of breath with activity Respiratory: Denies change in phlegm color, Denies chest congestion, Denies pain on inspiration Gastrointestinal: Reports nausea, Reports vomiting, Denies abdominal pain, Denies vomiting blood Genitourinary: Denies urinary frequency, Denies urinary hesitancy Musculoskeletal: Denies abnormal walking, Denies back pain Skin/Breast: Denies bleeding lesions, Denies boil Neurologic: Denies abnormal hearing, Denies abnormal movements, Denies restless legs, Denies convulsions, Denies tingling Psychiatric: Reports anxiety, Reports depression, Denies abnormal sleep pattern , Denies confusion Endocrine: Denies cold intolerance, Denies excessive sweating Hematologic/Lymphatic: Denies easy bleeding Allergic/Immunologic: Denies GI upset with certain foods PMFSH - History History Provided By: Patient - Medical History Medical History: Medical History (Last Reviewed 04/29/18 @ 03:01 by Anand Bird MD) Alcohol abuse Depression GERD (gastroesophageal reflux disease) Hernia Pancreatitis Seizures - Surgical History Surgical History: Surgical History (Last Reviewed 04/29/18 @ 03:01 by Anand Bird MD) History of left inguinal hernia repair - Family History Family History: Family History (Last Reviewed 04/29/18 @ 03:01 by Anand Bird MD) Other Family history non-contributory - Tobacco History Second Hand Smoke Exposure: No Smoking Status: Former smoker Tobacco Type: Cigarettes - Alcohol History How Often Do You Have a Drink Containing Alcohol: Never - Substance Use History Substance History: Past History - Substance Use Type Alcohol Status: Early Remission - Travel History History of Recent Travel: No - Immunization History Tetanus Immunization: <5 Years Medications and Allergies Active Medications: Active Medications Acetaminophen (Tylenol) 650 mg PO Q6H PRN PRN Reason: FEVER >101F Hydrocodone Bitart/Acetaminophen ([place]ern[place] 5/325) 1 tab PO Q4H PRN PRN Reason: PAIN SCALE 1 TO 5 Al Hydroxide/Mg Hydroxide (Milk Of Magnesia Liq) 30 ml PO Q12H PRN PRN Reason: Mild Constipation Albuterol (Albuterol Neb (Prn)) 2.5 mg NEB Q2HR NEB PRN PRN Reason: SHORTNESS OF BREATH/WHEEZING Bisacodyl (Dulcolax Supp) 10 mg RECTAL DAILY PRN PRN Reason: SEVERE CONSITIPATION Chlorhexidine Gluconate (Chlorhexidine 2% Cloth) 3 pack TOPICAL DAILY@0400 PRN PRN Reason: Extra cloth needed Stop: 05/04/18 03:59 Chlorhexidine Gluconate (Chlorhexidine 2% Cloth) 3 pack TOPICAL DAILY@0400 [facility] Stop: 05/04/18 03:59 Potassium Chloride (Kcl 20 Meq Premix Inj) 20 meq in 100 mls @ 50 mls/hr IV.SIG Q2H [facility] Stop: 04/29/18 04:59 Last Admin: 04/29/18 01:30 Dose: 50 mls/hr Potassium Chloride/Sodium Chloride (Ns + Kcl 20 Meq Inj) 1,000 mls @ 70 mls/hr IV.CONT .[id number] [facility] Last Admin: 04/29/18 02:09 Dose: 70 mls/hr Lactulose (Lactulose Liq) 30 ml PO DAILY PRN PRN Reason: SEVERE CONSITIPATION Morphine Sulfate (Morphine Inj) 2 mg IV.PUSH Q2H PRN PRN Reason: PAIN SCALE 6 TO 10 Ondansetron HCl (Zofran Inj) 4 mg IV.PUSH Q6H PRN PRN Reason: NAUSEA OR VOMITING Pantoprazole Sodium (Protonix Inj) 40 mg IV.PUSH DAILY [facility] Senna/Docusate Sodium (Hiral-Colace) 1 tab PO BID [facility] Sennosides (Senokot) 17.2 mg PO Q12H PRN PRN Reason: Moderate Constipation Sodium Chloride (Ns Flush) 2 ml IV.FLUSH PRN PRN PRN Reason: FLUSH AFTER USING IV ACCESS Sodium Chloride (Ns Flush) 2 ml IV.FLUSH BID [facility] Sodium Chloride (Ns Flush) 2 ml IV.FLUSH PRN PRN PRN Reason: FLUSH AFTER USING IV ACCESS Allergies Allergy/AdvReac Type Severity Reaction Status Date / Time Sulfa (Sulfonamide Allergy Severe hives Verified 04/28/18 23:43 Antibiotics) cefepime AdvReac Intermediate Rash, Verified 04/28/18 23:43 Generalized Home Medications Medication Instructions Recorded Confirmed Type levetiracetam [Keppra] 500 mg PO Q12H 01/28/18 04/29/18 History pantoprazole [Protonix] 40 mg PO BID 01/28/18 04/29/18 History quetiapine 50 mg PO TID 04/29/18 04/29/18 History Results - Labs CBC & Chem 7: 04/28/18 23:33 04/28/18 23:33 Labs: Short CBC 04/28/18 Range/Units 23:33 WBC 7.3 (4.0-11.0) th/mm3 Hgb 18.2 H (13.0-17.0) gm/dL Hct 50.3 (39.0-51.0) % Plt Count 336 (150-450) th/mm3 BMP 04/28/18 23:33 Sodium 118 L* Potassium 2.5 L* Chloride 58 L Carbon Dioxide Greater than 45.0 H BUN 34 H Creatinine 2.21 H Calcium 9.8 Liver Function 04/28/18 Range/Units 23:33 Total Bilirubin 0.5 (0.2-1.0) mg/dL AST 34 (15-37) U/L ALT 20 (12-78) U/L Alkaline Phosphatase 138 H (45-117) U/L Albumin 4.6 (3.4-5.0) g/dL - Imaging Impressions Abdomen/Pelvis CT 04/29/18 00:58 CONCLUSION: 1. No acute abnormality is identified within the abdomen or pelvis on this noncontrast examination. 2. Decreased size of the complex cystic lesion at the tail the pancreas. Etiology is uncertain but as described previously this could represent a pseudocyst if there is a known history of pancreatitis. This lesion was first visualized on the 02/20/2018 examination. Suggest attention to this at follow-up imaging to confirm resolution. Pancreas protocol MRI with and without intravenous contrast could be obtained on an outpatient elective basis for further characterization, if needed. Exam Vital signs: Vital Signs 04/28/18 21:50 04/29/18 01:31 Temperature 99.1 F Pulse Rate 101 H Respiratory Rate 24 Blood Pressure 111/64 Pulse Oximetry 95 96 Intake & Output 04/28/18 04/28/18 04/29/18 06:59 18:59 06:59 Intake Total 1000 / 1000 Balance 1000 / 1000 Weight 70.307 kg Intake: IV 1000 / 1000 NS Inj 1,000 ML @ 1000 mls/hr 1000 / 1000 IV.SIG BOLUS [facility] Rx#:[id number] - Constitutional no acute distress - Routine HEENT Exam Head: Present: normocephalic, atraumatic Eye: Present: EOMI, PERRL, normal accommodation ENT: Present: mucous membranes moist - Routine Neck Exam Present: supple, full ROM. Absent: JVD, carotid bruit Comments: Prior tracheostomy site well-healed - Routine Chest/Breast/Axilla Exam Chest wall: Absent: tenderness Breast: Absent: tenderness Axillae: Absent: lymphadenopathy - Routine Respiratory Exam Present: CTA bilaterally. Absent: accessory muscle use - Routine Cardiovascular Exam Present: RRR, S1, S2. Absent: murmur - Routine Abdominal Exam Present: soft, normoactive bowel sounds, surgical scars (G-tube) - Routine Extremities Exam Absent: cyanosis, clubbing, edema - Routine Skin Exam Present: intact - Routine Neurological Exam Present: alert, oriented X3, CN II-XII intact. Absent: sensory deficit, motor deficit Septic Shock Reassessment Septic shock perfusion: reassessment completed Caprini VTE Risk Assessment Caprini VTE Risk Assessment: No/Low Risk (score <= 1) Caprini Risk Assessment Model: Point Value = 1 Point Value = 2 Point Value = 3 Point Value = 5 Age 41-60 Minor surgery BMI > 25 kg/m2 Swollen legs Varicose veins or History of unexplained or recurrent spontaneous Oral contraceptives or hormone replacement Sepsis (< 1 month) Serious lung disease, including pneumonia (< 1 month) Abnormal pulmonary function Acute myocardial infarction Congestive heart failure (< 1 month) History of inflammatory bowel disease Medical patient at bed rest Age 61-74 Arthroscopic surgery Major open surgery (> 45 min) Laparoscopic surgery (> 45 min) Malignancy Confined to bed (> 72 hours) Immobilizing plaster cast Central venous access Age >= 75 History of VTE Family history of VTE Factor V Leiden Prothrombin [id number] Lupus anticoagulant Anticardiolipin antibodies Elevated serum homocysteine Heparin-induced thrombocytopenia Other congenital or acquired thrombophilia Stroke (< 1 month) Elective arthroplasty Hip, pelvis, or leg fracture Acute spinal cord injury (< 1 month) Prophylaxis Regimen: Total Risk Factor Score Risk Level Prophylaxis Regimen 0-1 Low Early ambulation 2 Moderate Order ONE of the following: *Sequential Compression Device (SCD) *Heparin 5000 units SQ BID 3-4 Higher Order ONE of the following medications: *Heparin 5000 units SQ TID *Enoxaparin/Lovenox 40 mg SQ daily (WT < 150 kg, CrCl > 30 mL/min) *Enoxaparin/Lovenox 30 mg SQ daily (WT < 150 kg, CrCl > 10-29 mL/min) *Enoxaparin/Lovenox 30 mg SQ BID (WT < 150 kg, CrCl > 30 mL/min) AND/OR *Sequential Compression Device (SCD) 5 or more Highest Order ONE of the following medications: *Heparin 5000 units SQ TID (Preferred with Epidurals) *Enoxaparin/Lovenox 40 mg SQ daily (WT < 150 kg, CrCl > 30 mL/min) *Enoxaparin/Lovenox 30 mg SQ daily (WT < 150 kg, CrCl > 10-29 mL/min) *Enoxaparin/Lovenox 30 mg SQ BID (WT < 150 kg, CrCl > 30 mL/min) AND *Sequential Compression Device (SCD) Assessment and Plan - Assessment and Plan Plan: Neuro/Psych: Seizure disorder NOS EtOH Depression/anxiety History of cannabinoid use Seizure precaution Continue levetiracetam 500 mg twice daily Continue Quetiapine 50 mg TID valproic acid 250 mg bid - check level lorazepam 0.5 QIDt/home medication for depression/anxiety Thiamine 100 mg bid UDS - benzo, opiates, cannabinoids CV: Sinus tachycardia Currently on normal saline with 20 mEq of KCl at 70 cc an hour No indication for antihypertensives and/or vasopressors at the present time Follow-up on EKG ASA 325 mg daily continue 02/14 echo - Moderately dilated left ventricle. Wall thickness is normal. The left ventricular systolic function is moderately reduced with an estimated ejection fraction 40%. There is trace tricuspid valve regurgitation. The estimated pulmonary arterial pressure is 23 mmHg. Resp: Recent history of vent dependent respiratory failure status post tracheostomy since decannulated History of tobaccoism 2- 3 cigarettes daily Nasal cannula to maintain saturations greater than equal to 92%. Currently on RA Incentive spirometry while awake Albuterol/ipratropium aerosols every 4 hours with albuterol aerosols every 2 hours as needed for dyspnea Follow-up on chest x-ray Tobacco cessation self evaluation will be provided when appropriate GI: History of gastroesophageal reflux disease History of PEG tube placement Regular diet Pantoprazole for GI prophylaxis Docusate sodium/senna 1 tablet twice daily for bowel regimen : No indication for Nance catheter Endo: elevated Free T3/T4 Sliding scale insulin with aspart insulin with Accu-Cheks every 6 hours to maintain euglycemia/low regimen Check TSH 0- 0.658. Renal: Acute kidney injury Creatinine currently 2.2 Rule out hydronephrosis with U/S kidneys Urine eosinophils/sodium and creatinine pending Hydrate with normal saline with 20 mEq of KCl at 70 cc an hour due to potassium of 2.3 Nepro c/s Heme: Polycythemia Monitor CBC daily. Follow trends Check coags in a.m. No indication for transfusion of blood products at this time ID: Monitor for signs and symptomatology of infection MSK: PT evaluate and treat FEN: Hypopotassemia Hyponatremia Hypochloridemia All these electrolyte abnormalities are acute. Check UOsm, SOsm, Nithya, Cortisol, TSH, Uric acid Noted levetiracetam causes hyponatremia. Valproic acid cause SIADH. Consider changing antiepileptics if necessary. ICU electrolyte replacement protocols been initiated. BMP q6h Currently normal saline with 20 mEgof KCl at 70 cc an hour U Cl, K+, Cr pending Access -Utilize peripheral IV. Central line if indicated Prophylaxis -GI -pantoprazole -DVT -SCD/heparin subcu Level 3 admission Code Status: Full Code Discussed Condition With: Dr. Krishnan, Pt. Mom Care plan discussed. All questions answered.
[2018-04-29] MEDS ORDERED: LORazepam 0.5 MG Tablet PO ONE (03:38)
[2018-04-29] MEDS ORDERED: Chlorhexidine Gluconate 2% 1 Pack (2 Cloths) TOPICAL PRN (04:00)
[2018-04-29 04:30] LABS: Bilirubin,Urine Negative (Negative); Clarity,Urine Clear (Clear); Color,Urine Yellow (Yellw/Straw); Glucose,Urine (UA) Negative (Negative); Leukocyte Esterase,Urine Negative (Negative); Mucus,Urine Few /lpf (Occasional); Nitrite,Urine Negative (Negative); Specific Gravity,Urine 1.016 (1.002-1.035); Squamous Epithelial Cell,Urine 1 /hpf (0-5)
[2018-04-29] MEDS: Chlorhexidine Gluconate 2% 1 Pack (2 Cloths) TOPICAL SCH (04:36)
[2018-04-29] MEDS: levETIRAcetam 500 MG Tablet PO SCH ×2 (04:36→15:54)
[2018-04-29 04:39] LABS: Creatinine,Urine Random 151 mg/dL (27-300); Potassium,Urine Random 76 meq/L; Sodium,Urine Random 47 meq/L
[2018-04-29] MEDS: LORazepam 0.5 MG Tablet PO SCH ×3 (05:00→17:26)
[2018-04-29] MEDS: Morphine Sulfate Inj 2 MG/ML Vial IV.PUSH PRN ×3 (05:51→20:40)
[2018-04-29 06:10] LABS: Anion Gap 11 meq/L (5-15); Blood Urea Nitrogen 32 mg/dL (7-18); Calcium 8.8 mg/dL (8.5-10.1); Chloride 68 meq/L (98-107); Glomerular Filtration Rate 45 mL/min (>89); Glucose,Random 101 mg/dL (74-106); Potassium 3.1 meq/L (3.5-5.1); Uric Acid 14.6 mg/dl (2.6-7.2)
[2018-04-29 06:17] LABS: Sodium 122 meq/L (136-145)
[2018-04-29] MEDS: Pantoprazole Inj 40 MG Vial IV.PUSH SCH (10:15)
[2018-04-29] MEDS: QUEtiapine 25 MG Tablet PO SCH ×3 (10:16→17:25)
[2018-04-29] MEDS: Aspirin 325 MG Tablet PO SCH (10:16)
[2018-04-29] MEDS: Senna/Docusate Sodium 8.6/50 MG Tablet PO SCH ×2 (10:17→20:40)
[2018-04-29] MEDS: Heparin - SQ 10,000 UNITS/ML Vial SQ SCH ×2 (10:17→20:40)
--- NOTE | 2018-04-29 10:42 | P.CONNP ---
<Ceci Patricio - Last Filed: 04/29/18 09:59> History of Present Illness Service: Nephrology Consult date: 04/29/18 Requesting Physician: Anand Bird Reason for Consult: Recurrent hyponatremia and hypokalemia. Primary Care Provider: No Primary Care Physician Chief Complaint: N/V History of Present Illness: Patient is a 34 year old male with past medical history of seizures, ETOH, depression, electrolyte abnormalities with Vtach arrest. Patient presented to the emergency room for evaluation of nausea, vomiting, dizziness and generally not feeling very well for over 1 week. Patient was admitted late January 2018 with V. fib arrest thought to be secondary to hypokalemia. He was trached and pegged. He has been decannulated and his PEG tube been removed. He is currently on levetiracetam and valproic acid, both of which can cause hyponatremia/SIADH. Patient denies fevers, cough congestion, CP or palpiations. He continues to have abdominal tenderness and nausea. Nephrology consulted for recurrent hyponatremia and hypokalemia. Sodium level 118 on admission and now 122. Potassium level of 2.5 which has improved to 3.1 with replacement. Also found to have acute kidney injury with a creatinine on admission of 2.21 which has improved to 1.79. Does not have a previous history of kidney disease. CT of abdomen with with no hydronephrosis, stone, or mass. Review of Systems All other systems reviewed negative except as stated in HPI PMFSH - History History Provided By: Patient - Medical History Medical History: Medical History (Last Reviewed 04/29/18 @ 09:02 by Nic Rhodes) Alcohol abuse Depression GERD (gastroesophageal reflux disease) Hernia Pancreatitis Seizures - Surgical History Surgical History: Surgical History (Last Reviewed 04/29/18 @ 03:01 by Anand Bird MD) History of left inguinal hernia repair - Family History Family History: Family History (Last Reviewed 04/29/18 @ 03:01 by Anand Bird MD) Other Family history non-contributory - Tobacco History Second Hand Smoke Exposure: No Tobacco Use In Past 30 Days: Yes Smoking Status: Former smoker Tobacco Type: Cigarettes - Alcohol History How Often Do You Have a Drink Containing Alcohol: Never - Substance Use History Substance History: Past History - Substance Use Type Alcohol Status: Early Remission - Travel History History of Recent Travel: No - Immunization History Tetanus Immunization: <5 Years Medications and Allergies Allergies Allergy/AdvReac Type Severity Reaction Status Date / Time Sulfa (Sulfonamide Allergy Severe hives Verified 04/28/18 23:43 Antibiotics) cefepime AdvReac Intermediate Rash, Verified 04/28/18 23:43 Generalized Home Medications Medication Instructions Recorded Confirmed Type levetiracetam [Keppra] 500 mg PO Q12H 01/28/18 04/29/18 History pantoprazole [Protonix] 40 mg PO BID 01/28/18 04/29/18 History quetiapine 50 mg PO TID 04/29/18 04/29/18 History Active Medications: Active Medications Acetaminophen (Tylenol) 650 mg PO Q6H PRN PRN Reason: FEVER >101F Hydrocodone Bitart/Acetaminophen ([place] 5/325) 1 tab PO Q4H PRN PRN Reason: PAIN SCALE 1 TO 5 Al Hydroxide/Mg Hydroxide (Milk Of Magnesia Liq) 30 ml PO Q12H PRN PRN Reason: Mild Constipation Albuterol (Albuterol Neb (Prn)) 2.5 mg NEB Q2HR NEB PRN PRN Reason: SHORTNESS OF BREATH/WHEEZING Aspirin (Aspirin) 325 mg PO DAILY [facility] Bisacodyl (Dulcolax Supp) 10 mg RECTAL DAILY PRN PRN Reason: SEVERE CONSITIPATION Chlorhexidine Gluconate (Chlorhexidine 2% Cloth) 3 pack TOPICAL DAILY@0400 PRN PRN Reason: Extra cloth needed Stop: 05/04/18 03:59 Chlorhexidine Gluconate (Chlorhexidine 2% Cloth) 3 pack TOPICAL DAILY@0400 [facility] Stop: 05/04/18 03:59 Last Admin: 04/29/18 04:36 Dose: 3 pack Heparin Sodium (Porcine) (Heparin Inj) 5,000 units SQ Q12HR [facility] Potassium Chloride/Sodium Chloride (Ns + Kcl 20 Meq Inj) 1,000 mls @ 70 mls/hr IV.CONT .[id number] [facility] Last Admin: 04/29/18 02:09 Dose: 70 mls/hr Lactulose (Lactulose Liq) 30 ml PO DAILY PRN PRN Reason: SEVERE CONSITIPATION Levetiracetam (Keppra) 500 mg PO Q12H [facility] Last Admin: 04/29/18 04:36 Dose: 500 mg Lorazepam (Ativan) 0.5 mg PO Q6HR [facility] Last Admin: 04/29/18 05:00 Dose: 0.5 mg Morphine Sulfate (Morphine Inj) 2 mg IV.PUSH Q2H PRN PRN Reason: PAIN SCALE 6 TO 10 Last Admin: 04/29/18 05:51 Dose: 2 mg Ondansetron HCl (Zofran Inj) 4 mg IV.PUSH Q6H PRN PRN Reason: NAUSEA OR VOMITING Pantoprazole Sodium (Protonix Inj) 40 mg IV.PUSH DAILY [facility] Quetiapine Fumarate (Seroquel) 50 mg PO TID [facility] Senna/Docusate Sodium (Hiral-Colace) 1 tab PO BID [facility] Sennosides (Senokot) 17.2 mg PO Q12H PRN PRN Reason: Moderate Constipation Sodium Chloride (Ns Flush) 2 ml IV.FLUSH BID [facility] Sodium Chloride (Ns Flush) 2 ml IV.FLUSH PRN PRN PRN Reason: FLUSH AFTER USING IV ACCESS Thiamine HCl (Vitamin B1) 100 mg PO BID [facility] Valproate Sodium (Depakene Liq) 250 mg PO BID [facility] Exam Vital signs: Vital Signs 04/28/18 21:50 04/29/18 01:31 04/29/18 04:00 Temperature 99.1 F Pulse Rate 101 H 64 Respiratory Rate 24 16 Blood Pressure 111/64 124/82 Pulse Oximetry 95 96 99 04/29/18 04:04 04/29/18 05:00 04/29/18 05:01 Temperature Pulse Rate 75 69 70 Respiratory Rate 15 32 H 41 H Blood Pressure 152/99 H 126/87 Pulse Oximetry 100 95 96 04/29/18 06:00 04/29/18 07:00 Temperature Pulse Rate 60 57 L Respiratory Rate 30 H 31 H Blood Pressure 115/76 106/65 Pulse Oximetry 93 L 94 L Intake & Output 04/28/18 04/29/18 04/29/18 18:59 06:59 18:59 Intake Total 1100 / 1100 100 / 100 Output Total 600 / 600 Balance 500 / 500 100 / 100 Weight 67 kg Intake: IV 1100 / 1100 100 / 100 KCl 20 mEq Premix Inj 20 meq In 100 / 100 100 / 100 100 ml @ 50 mls/hr IV.SIG Q2H [facility] Rx#:[id number] NS Inj 1,000 ML @ 1000 mls/hr 1000 / 1000 IV.SIG [facility] Rx#:[id number] Output: Urine 600 / 600 Narrative: GENERAL: Alert and oriented. SKIN: Warm and dry. NECK: Supple, trachea midline. No JVD. CARDIOVASCULAR: Regular rate and rhythm without murmurs, gallops, or rubs. RESPIRATORY: Breath sounds equal bilaterally. No accessory muscle use. GASTROINTESTINAL: Abdomen soft, nondistended, tender on palpation. MUSCULOSKELETAL: No cyanosis, or edema. BACK: Nontender without obvious deformity. No CVA tenderness. Results - Lab Results 04/28/18 23:33 04/29/18 05:36 Most recent lab results Calcium 8.8 mg/dL (8.5-10.1) D 04/29/18 05:36 Magnesium 2.1 mg/dL (1.5-2.5) 04/28/18 23:33 Assessment and Plan - Assessment (1) Acute kidney injury Code(s): N17.9 - Acute kidney failure, unspecified Status: Acute Plan: Acute kidney injury with a creatinine on admission of 2.21 which has improved to 1.79. FeNA at 0.46% suggestive of prerenal possibly from nausea and dehydration. Does not have a previous history of kidney disease. CT of abdomen with with no hydronephrosis, stone, or mass Avoid nephrotoxins as possible, maintain strict I+O's, continue IVF's, creatinine improving will continue to monitor urinary output and BMP. (2) Hyponatremia Code(s): E87.1 - Hypo-osmolality and hyponatremia Status: Acute Plan: Sodium level 118 on admission and now 122 with IVF administration. Serum and and urine osmolarity ordered. Uric acid level is elevated at 14.6, cortisol level normal at 18, TSH normal He is currently on levetiracetam and valproic acid, both of which can cause hyponatremia/SIADH. Usually with SIADH uric acid levels on the lower side. With suspected prerenal azotemia, FeNa of less than 1 % and hyperuricemia is more indicative of hypovolemia hyponatremia. Recommend to continue IVF's. Monitor serial sodium levels. (3) Hypokalemia Code(s): E87.6 - Hypokalemia Status: Acute Plan: Improving on replacement. (4) Seizure disorder Code(s): G40.909 - Epilepsy, unspecified, not intractable, without status epilepticus Status: Acute Plan: Continue home medications. <Yoon Hendricks - Last Filed: 04/30/18 10:26> History of Present Illness Primary Care Provider: No Primary Care Physician [facility] - Medical History Medical History: Medical History (Last Reviewed 04/29/18 @ 09:02 by Nic Rhodes) Alcohol abuse Depression GERD (gastroesophageal reflux disease) Hernia Pancreatitis Seizures - Surgical History Surgical History: Surgical History (Last Reviewed 04/29/18 @ 03:01 by Anand Bird MD) History of left inguinal hernia repair - Family History Family History: Family History (Last Reviewed 04/29/18 @ 03:01 by Anand Bird MD) Other Family history non-contributory Medications and Allergies Active Medications: Active Medications Acetaminophen (Tylenol) 650 mg PO Q6H PRN PRN Reason: FEVER >101F Hydrocodone Bitart/Acetaminophen ([place] 5/325) 1 tab PO Q4H PRN PRN Reason: PAIN SCALE 1 TO 5 Last Admin: 04/30/18 08:54 Dose: 1 tab Al Hydroxide/Mg Hydroxide (Milk Of [place]ight[place]) 30 ml PO Q12H PRN PRN Reason: Mild Constipation Albuterol (Albuterol Neb (Prn)) 2.5 mg NEB Q2HR NEB PRN PRN Reason: SHORTNESS OF BREATH/WHEEZING Aspirin (Aspirin) 325 mg PO DAILY [facility] Last Admin: 04/30/18 08:54 Dose: 325 mg Bisacodyl (Dulcolax Supp) 10 mg RECTAL DAILY PRN PRN Reason: SEVERE CONSITIPATION Chlorhexidine Gluconate (Chlorhexidine 2% Cloth) 3 pack TOPICAL DAILY@0400 PRN PRN Reason: Extra cloth needed Stop: 05/04/18 03:59 Chlorhexidine Gluconate (Chlorhexidine 2% Cloth) 3 pack TOPICAL DAILY@0400 [facility] Stop: 05/04/18 03:59 Last Admin: 04/30/18 03:06 Dose: 3 pack Heparin Sodium (Porcine) (Heparin Inj) 5,000 units SQ Q12HR [facility] Last Admin: 04/30/18 08:55 Dose: 5,000 units Magnesium Sulfate 4 gm/ Sodium (Chloride) 100 mls @ 50 mls/hr IV.SIG UNSCH PRN PRN Reason: For Magnesium 0.9 - 1.1 mg/dL Potassium Chloride (Kcl 40 Meq Premix Inj) 40 meq in 100 mls @ 50 mls/hr IV.SIG Q2H PRN PRN Reason: For Potassium 2.8 - 3.2 mEq/L Potassium Chloride (Kcl 20 Meq Premix Inj) 20 meq in 100 mls @ 50 mls/hr IV.SIG Q2H PRN PRN Reason: For Potassium 3.3 - 3.5 mEq/L Potassium Chloride (Kcl 40 Meq Premix Inj) 40 meq in 100 mls @ 25 mls/hr IV.SIG UNSCH PRN PRN Reason: For Potassium 3.3 - 3.5 mEq/L Potassium Chloride (Kcl 20 Meq Premix Inj) 20 meq in 100 mls @ 50 mls/hr IV.SIG Q2H PRN PRN Reason: For Potassium 2.8 - 3.2 mEq/L Last Infusion: 04/30/18 03:07 Dose: Infused Sodium Phosphate 30 mmol/ (Sodium Chloride) 260 mls @ 42 mls/hr IV.SIG UNSCH PRN PRN Reason: For Phosphorus < 2.5 mg/dL Magnesium Sulfate 2 gm/ Sodium (Chloride) 100 mls @ 50 mls/hr IV.SIG UNSCH PRN PRN Reason: For Magnesium 1.2 - 1.6 mg/dL Potassium Phosphate 30 mmol/ (Sodium Chloride) 260 mls @ 42 mls/hr IV.SIG UNSCH PRN PRN Reason: SEE LABEL COMMENTS Last Admin: 04/30/18 06:22 Dose: 42 mls/hr Potassium Chloride/Sodium Chloride (Ns + Kcl 40 Meq Inj) 1,000 mls @ 100 mls/ hr IV.CONT .Q10H [facility] Last Infusion: 04/30/18 03:07 Dose: Infused Lactulose (Lactulose Liq) 30 ml PO DAILY PRN PRN Reason: SEVERE CONSITIPATION Levetiracetam (Keppra) 500 mg PO Q12H [facility] Last Admin: 04/30/18 03:06 Dose: 500 mg Lorazepam (Ativan) 0.5 mg PO Q6HR [facility] Last Admin: 04/30/18 05:38 Dose: 0.5 mg Magnesium Oxide (Mag-Ox) 800 mg PO UNSCH PRN PRN Reason: For Magnesium 1.2 - 1.6 mg/dL Morphine Sulfate (Morphine Inj) 2 mg IV.PUSH Q2H PRN PRN Reason: PAIN SCALE 6 TO 10 Last Admin: 04/29/18 20:40 Dose: 2 mg Ondansetron HCl (Zofran Inj) 4 mg IV.PUSH Q6H PRN PRN Reason: NAUSEA OR VOMITING Pantoprazole Sodium (Protonix Inj) 40 mg IV.PUSH DAILY [facility] Last Admin: 04/30/18 08:55 Dose: 40 mg Potassium Bicarb/Potassium Chloride (K-Lyte Cl Eff) 50 meq PO UNSCH PRN PRN Reason: For Potassium 3.3 - 3.5 mEq/L Potassium Chloride (Klor-Con 10) 30 meq PO BID [facility] Last Admin: 04/30/18 08:54 Dose: 30 meq Potassium Phosphate (K-Phos Original) 2,000 mg PO Q4H PRN PRN Reason: Phosphorus Less Than 2.5 mg/dL Potassium Phosphate (K-Phos Original) 2,000 mg PO UNSCH PRN PRN Reason: SEE LABEL COMMENTS Quetiapine Fumarate (Seroquel) 50 mg PO TID [facility] Last Admin: 04/30/18 08:55 Dose: 50 mg Senna/Docusate Sodium (Hiral-Colace) 1 tab PO BID [facility] Last Admin: 04/30/18 08:54 Dose: 1 tab Sennosides (Senokot) 17.2 mg PO Q12H PRN PRN Reason: Moderate Constipation Sodium Chloride (Ns Flush) 2 ml IV.FLUSH BID [facility] Last Admin: 04/30/18 08:55 Dose: 2 ml Sodium Chloride (Ns Flush) 2 ml IV.FLUSH PRN PRN PRN Reason: FLUSH AFTER USING IV ACCESS Thiamine HCl (Vitamin B1) 100 mg PO BID [facility] Last Admin: 04/30/18 08:54 Dose: 100 mg Valproate Sodium (Depakene Liq) 250 mg PO BID [facility] Last Admin: 04/30/18 08:54 Dose: 250 mg Exam Vital signs: Vital Signs 04/29/18 11:00 04/29/18 12:00 04/29/18 13:00 Temperature 97.2 F L Pulse Rate 67 62 73 Respiratory Rate 22 23 29 H Blood Pressure 114/61 87/52 L 93/57 L Pulse Oximetry 92 L 92 L 96 04/29/18 13:27 04/29/18 14:00 04/29/18 15:00 Temperature Pulse Rate 83 66 Respiratory Rate 18 25 H 28 H Blood Pressure 100/63 96/52 L Pulse Oximetry 95 93 L 04/29/18 16:00 04/29/18 17:00 04/29/18 18:00 Temperature 97.6 F Pulse Rate 76 83 87 Respiratory Rate 18 26 H 31 H Blood Pressure 97/61 L 98/61 L 103/65 Pulse Oximetry 94 L 95 97 04/29/18 19:00 04/29/18 19:28 04/29/18 20:00 Temperature 97.6 F Pulse Rate 89 85 75 Respiratory Rate 22 28 H 20 Blood Pressure 108/63 96/55 L Pulse Oximetry 93 L 96 91 L 04/29/18 21:00 04/29/18 22:00 04/29/18 23:00 Temperature Pulse Rate 84 81 79 Respiratory Rate 17 26 H 22 Blood Pressure 105/67 103/56 L 104/62 Pulse Oximetry 97 94 L 97 04/30/18 00:00 04/30/18 01:00 04/30/18 02:00 Temperature 98 F Pulse Rate 81 71 82 Respiratory Rate 24 19 26 H Blood Pressure 109/65 102/64 113/61 Pulse Oximetry 96 95 97 04/30/18 03:00 04/30/18 04:00 04/30/18 05:00 Temperature 98.2 F Pulse Rate 79 78 79 Respiratory Rate 22 20 35 H Blood Pressure 112/65 108/62 123/68 Pulse Oximetry 99 94 L 96 04/30/18 06:00 04/30/18 06:05 04/30/18 07:00 Temperature Pulse Rate 69 70 84 Respiratory Rate 23 20 22 Blood Pressure 110/63 115/80 Pulse Oximetry 92 L 98 99 04/30/18 08:00 04/30/18 09:00 04/30/18 10:00 Temperature 97.7 F Pulse Rate 83 74 84 Respiratory Rate 25 H 23 22 Blood Pressure 115/83 123/86 114/61 Pulse Oximetry 98 99 96 Intake & Output 04/29/18 04/30/18 04/30/18 18:59 06:59 18:59 Intake Total 950 / 950 2920 / 2920 Output Total 800 / 800 700 / 700 Balance 150 / 150 2220 / 2220 Weight 67.2 kg Intake: IV 300 / 300 2200 / 2200 NS + KCl 20 mEq Inj 1,000 ML @ 1000 / 1000 70 mls/hr IV.CONT .[id number] [facility] Rx#:[id number] NS + KCl 40 mEq Inj 1,000 ML @ 1000 / 1000 100 mls/hr IV.CONT .Q10H [facility] Rx #:[id number] KCl 20 mEq Premix Inj 20 meq In 300 / 300 200 / 200 100 ml @ 50 mls/hr IV.SIG Q2H [facility] Rx#:[id number] Oral 650 / 650 720 / 720 Output: Urine 800 / 800 700 / 700 Other: # Bowel Movements 0 Results - Lab Results 04/28/18 23:33 04/30/18 03:55 Most recent lab results Calcium 8.1 mg/dL (8.5-10.1) L 04/30/18 03:55 Phosphorus 0.8 mg/dL (2.5-4.9) L 04/30/18 03:55 Magnesium 1.7 mg/dL (1.5-2.5) 04/30/18 03:55 Assessment and Plan - Assessment (1) Acute kidney injury Code(s): N17.9 - Acute kidney failure, unspecified Status: Acute Plan: Patient seen and examined, agree with above. Patient has MARK and electrolyte disorder. Sodium and K started improving. Continue IVF, encourage oral intake. (2) Hyponatremia Code(s): E87.1 - Hypo-osmolality and hyponatremia Status: Acute (3) Hypokalemia Code(s): E87.6 - Hypokalemia Status: Acute (4) Seizure disorder Code(s): G40.909 - Epilepsy, unspecified, not intractable, without status epilepticus Status: Acute
[2018-04-29] MEDS ORDERED: Potassium Phosphate 500 MG Soluble Tablet PO PRN ×2 (11:57)
[2018-04-29] MEDS ORDERED: Potassium Chlor 20 mEq Premix 20 MEQ/100 ML PIGGYBACK IV.SIG PRN (11:57)
[2018-04-29] MEDS ORDERED: Magnesium Oxide 400 MG Tablet PO PRN (11:57)
[2018-04-29] MEDS ORDERED: Potassium Chloride 25 MEQ Effervescent Tablet PO PRN (11:57)
[2018-04-29] MEDS ORDERED: Magnesium Sulfate Inj 4 GM in Sodium Chlor 0.9% Inj 92 ML IV.SIG PRN (11:57)
[2018-04-29] MEDS ORDERED: Potassium Chlor 40 mEq Premix 40 MEQ/100 ML PIGGYBACK IV.SIG PRN ×2 (11:57)
[2018-04-29] MEDS ORDERED: Potassium Phosphate Inj 30 MMOL in Sodium Chlor 0.9% Inj 250 ML IV.SIG PRN (11:57)
[2018-04-29] MEDS ORDERED: Sodium Phosphate Inj 30 MMOL in Sodium Chlor 0.9% Inj 250 ML IV.SIG PRN (11:57)
[2018-04-29] MEDS ORDERED: Magnesium Sulfate Inj 2 GM in Sodium Chlor 0.9% Inj 96 ML IV.SIG PRN (11:57)
--- NOTE | 2018-04-29 12:30 | US ---
EXAM DATE: 04/29/2018 12:10 PM EST AGE/SEX: 32 years / Male INDICATIONS: Increased BUN and creatinine. CLINICAL DATA: This is the patient's initial encounter. Patient reports that signs and symptoms have been present for 1 day and indicates a pain score of 0/10. MEDICAL/SURGICAL HISTORY: . Alcohol abuse. Depression. GERD. Hernia. Pancreatitis. Seizure s. . Left inguinal hernia repair. COMPARISON: [facility], CT ABDOMEN & PELVIS W/O CONTRAST, 04/29/2018. . MEASUREMENTS: Right Kidney:__10.9 x 4.5 x 5.2 cm Left Kidney:__10.6 x 5.4 x 5.4 cm FINDINGS: Right Kidney: Normal echotexture and cortical thickness. No mass or hydronephrosis. Left Kidney: Normal echotexture and cortical thickness. No mass or hydronephrosis. Bladder: Within normal limits given the degree of distension. Other: None. CONCLUSION: 1. Unremarkable bilateral renal ultrasound. Electronically signed by: Frank Stauffer MD 04/29/2018 12:29 PM EST
--- NOTE | 2018-04-29 13:07 | ECG ---
Date Performed: 04/28/2018 Time Performed: 23:13:46 PTAGE: 32 years EKG: Sinus rhythm POSSIBLE LEFT ATRIAL ENLARGEMENT POSSIBLE RIGHT VENTRICULAR CONDUCTION DELAY ST DEVIATION AND MODERA TE T-WAVE ABNORMALITY, CONSIDER ANTEROLATERAL ISCHEMIA ABNORMAL ECG PREVIOUS TRACING : 01/28/2018 10.32 Compared to previous tracing, ST changes persist but are le ss prominent DOCTOR: Yoandy Downing Interpretating Date/Time 04/29/2018 13:06:49
[2018-04-29] MEDS: Potassium Chlor 20 mEq Premix 20 MEQ/100 ML PIGGYBACK IV.SIG PRN ×4 (13:22→22:03)
[2018-04-29 17:32] LABS: Alanine Aminotransferase 16 U/L (12-78); Albumin 3.4 g/dL (3.4-5.0); Alkaline Phosphatase 109 U/L (45-117); Anion Gap 6 meq/L (5-15); Aspartate Aminotransferase 15 U/L (15-37); Blood Urea Nitrogen 31 mg/dL (7-18); Calcium 8.4 mg/dL (8.5-10.1); Carbon Dioxide 43.1 meq/L (21.0-32.0); Chloride 79 meq/L (98-107); Glomerular Filtration Rate 46 mL/min (>89); Glucose,Random 135 mg/dL (74-106); Magnesium 2.1 mg/dL (1.5-2.5); Sodium 128 meq/L (136-145); Total Protein 6.1 g/dL (6.4-8.2)
[2018-04-29 17:35] LABS: Potassium 2.7 meq/L (3.5-5.1)
[2018-04-30] MEDS: LORazepam 0.5 MG Tablet PO SCH ×5 (00:22→23:06)
[2018-04-30] MEDS: levETIRAcetam 500 MG Tablet PO SCH ×2 (03:06→16:34)
[2018-04-30] MEDS: Chlorhexidine Gluconate 2% 1 Pack (2 Cloths) TOPICAL SCH (03:06)
[2018-04-30 05:04] LABS: Alanine Aminotransferase 18 U/L (12-78); Albumin 3.2 g/dL (3.4-5.0); Alkaline Phosphatase 127 U/L (45-117); Anion Gap 4 meq/L (5-15); Aspartate Aminotransferase 14 U/L (15-37); Blood Urea Nitrogen 24 mg/dL (7-18); Calcium 8.1 mg/dL (8.5-10.1); Chloride 92 meq/L (98-107); Glomerular Filtration Rate 58 mL/min (>89); Glucose,Random 94 mg/dL (74-106); Magnesium 1.7 mg/dL (1.5-2.5); Phosphorus 0.8 mg/dL (2.5-4.9); Potassium 3.2 meq/L (3.5-5.1); Sodium 134 meq/L (136-145); Total Protein 5.7 g/dL (6.4-8.2); Valproic Acid 24 mcg/mL (50-100)
[2018-04-30 05:09] LABS: Activated Partial Thrombo Time 24.8 sec (23.4-31.7); Prothrombin Time 10.1 sec (9.8-11.6)
[2018-04-30] MEDS: Senna/Docusate Sodium 8.6/50 MG Tablet PO SCH ×2 (08:54→21:02)
[2018-04-30] MEDS: Aspirin 325 MG Tablet PO SCH (08:54)
[2018-04-30] MEDS: QUEtiapine 25 MG Tablet PO SCH ×3 (08:55→17:51)
[2018-04-30] MEDS: Pantoprazole Inj 40 MG Vial IV.PUSH SCH (08:55)
[2018-04-30] MEDS: Heparin - SQ 10,000 UNITS/ML Vial SQ SCH ×2 (08:55→21:01)
--- NOTE | 2018-04-30 10:29 | P.PNNP ---
Subjective Interval history: Patient is alert, now eating breakfast, no SOB, no nausea, no abd. pain. Physical Exam Vital signs: Vital Signs 04/29/18 11:00 04/29/18 12:00 04/29/18 13:00 Temperature 97.2 F L Pulse Rate 67 62 73 Respiratory Rate 22 23 29 H Blood Pressure 114/61 87/52 L 93/57 L Pulse Oximetry 92 L 92 L 96 04/29/18 13:27 04/29/18 14:00 04/29/18 15:00 Temperature Pulse Rate 83 66 Respiratory Rate 18 25 H 28 H Blood Pressure 100/63 96/52 L Pulse Oximetry 95 93 L 04/29/18 16:00 04/29/18 17:00 04/29/18 18:00 Temperature 97.6 F Pulse Rate 76 83 87 Respiratory Rate 18 26 H 31 H Blood Pressure 97/61 L 98/61 L 103/65 Pulse Oximetry 94 L 95 97 04/29/18 19:00 04/29/18 19:28 04/29/18 20:00 Temperature 97.6 F Pulse Rate 89 85 75 Respiratory Rate 22 28 H 20 Blood Pressure 108/63 96/55 L Pulse Oximetry 93 L 96 91 L 04/29/18 21:00 04/29/18 22:00 04/29/18 23:00 Temperature Pulse Rate 84 81 79 Respiratory Rate 17 26 H 22 Blood Pressure 105/67 103/56 L 104/62 Pulse Oximetry 97 94 L 97 04/30/18 00:00 04/30/18 01:00 04/30/18 02:00 Temperature 98 F Pulse Rate 81 71 82 Respiratory Rate 24 19 26 H Blood Pressure 109/65 102/64 113/61 Pulse Oximetry 96 95 97 04/30/18 03:00 04/30/18 04:00 04/30/18 05:00 Temperature 98.2 F Pulse Rate 79 78 79 Respiratory Rate 22 20 35 H Blood Pressure 112/65 108/62 123/68 Pulse Oximetry 99 94 L 96 04/30/18 06:00 04/30/18 06:05 04/30/18 07:00 Temperature Pulse Rate 69 70 84 Respiratory Rate 23 20 22 Blood Pressure 110/63 115/80 Pulse Oximetry 92 L 98 99 04/30/18 08:00 04/30/18 09:00 04/30/18 10:00 Temperature 97.7 F Pulse Rate 83 74 84 Respiratory Rate 25 H 23 22 Blood Pressure 115/83 123/86 114/61 Pulse Oximetry 98 99 96 Intake & Output 04/29/18 04/30/18 04/30/18 18:59 06:59 18:59 Intake Total 950 / 950 2920 / 2920 Output Total 800 / 800 700 / 700 Balance 150 / 150 2220 / 2220 Weight 67.2 kg Intake: IV 300 / 300 2200 / 2200 NS + KCl 20 mEq Inj 1,000 ML @ 1000 / 1000 70 mls/hr IV.CONT .[id number] [facility] Rx#:[id number] NS + KCl 40 mEq Inj 1,000 ML @ 1000 / 1000 100 mls/hr IV.CONT .Q10H [facility] Rx #:[id number] KCl 20 mEq Premix Inj 20 meq In 300 / 300 200 / 200 100 ml @ 50 mls/hr IV.SIG Q2H [facility] Rx#:[id number] Oral 650 / 650 720 / 720 Output: Urine 800 / 800 700 / 700 Other: # Bowel Movements 0 Narrative: GENERAL: Alert and oriented. SKIN: Warm and dry. NECK: Supple, trachea midline. No JVD. CARDIOVASCULAR: Regular rate and rhythm without murmurs, gallops, or rubs. RESPIRATORY: Breath sounds equal bilaterally. No accessory muscle use. GASTROINTESTINAL: Abdomen soft, nondistended, tender on palpation. MUSCULOSKELETAL: No cyanosis, or edema. BACK: Nontender without obvious deformity. No CVA tenderness. Assessment and Plan - Assessment (1) Acute kidney injury Code(s): N17.9 - Acute kidney failure, unspecified Status: Acute Plan: Patient has MARK and electrolyte disorder. Sodium and K started improving. Continue IVF, encourage oral intake. Has MARK, possibly related to pre renal and dehydration. 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 Once Creatinine is stable, will add K sparing diuretics. (2) Hyponatremia Code(s): E87.1 - Hypo-osmolality and hyponatremia Status: Acute Plan: Sodium level 118 on admission and now 122 with IVF administration. Serum and and urine osmolarity ordered. Uric acid level is elevated at 14.6, cortisol level normal at 18, TSH normal He is currently on levetiracetam and valproic acid, both of which can cause hyponatremia/SIADH. Usually with SIADH uric acid levels on the lower side. With suspected prerenal azotemia, FeNa of less than 1 % and hyperuricemia is more indicative of hypovolemia hyponatremia. Recommend to continue IVF's. Monitor serial sodium levels. (3) Hypokalemia Code(s): E87.6 - Hypokalemia Status: Acute Plan: Improving on replacement. (4) Seizure disorder Code(s): G40.909 - Epilepsy, unspecified, not intractable, without status epilepticus Status: Acute Plan: Continue home medications.
[2018-04-30] MEDS: Morphine Sulfate Inj 2 MG/ML Vial IV.PUSH PRN ×3 (12:08→21:22)
--- NOTE | 2018-04-30 15:16 | P.PNIM ---
Subjective Interval history: Pt has NO new clinical complaints. Physical Exam Vital signs: Last Vital Signs Temp 98 F 04/30/18 12:00 Pulse 90 04/30/18 14:00 Resp 29 H 04/30/18 12:00 BP 114/60 04/30/18 12:00 Pulse Ox 98 04/30/18 14:29 Results Labs CBC & Chem 7: 05/01/18 04:06 05/02/18 14:49 Assessment and Plan Assessment (1) Acute kidney injury: Code(s): N17.9 - Acute kidney failure, unspecified Status: Acute (2) Hyponatremia: Code(s): E87.1 - Hypo-osmolality and hyponatremia Status: Acute (3) Hypokalemia: Code(s): E87.6 - Hypokalemia Status: Acute (4) Seizure disorder: Code(s): G40.909 - Epilepsy, unspecified, not intractable, without status epilepticus Status: Acute Plan Hyponatremia Hypokalemia Bulemia 34 year old male. DOA 04/29/18. PMH Sz, ETOH, depression, admissions with hypoNa+, hypoK+ and VTach arrest to ED fore valuation of nausea/vomiting and generally not feeling very well. Patient was admitted late January 2018 with V. fib arrest thought to be secondary to hypokalemia. He eventually was trached and pegged. He has been decannulated and his PEG tube been removed. PEG tube is Located by a fistula tract. He is currently on levetiracetam and valproic acid, both of which can cause hyponatremia/SIADH. Patient also recently had a seizure recently and has a history of seizure disorders and has been taking his anti epileptics including levetiracetam and valproic acid.. He is on chronic benzodiazepines. Patient denies fevers, cough congestion. Denies CP or palpiations. Symptoms have been gradually coming on but for the past few hours has felt as though he was going to pass out. - NA 118 (04/28), 134 (05/01) - hyponatremia resolved with IVFs - K 2.5 (04/28), 3.8 (04/30) - hypokalemia resolved with supplementation - per pt's mother, Mr. Low continues to suffer from bulemia and regularly induces vomiting - induced vomiting is the probable cause for pt's electrolyte abnormalities and admission - consult Psychiatry seizure disorder - keppra - depakene - prn ativan depression anxiety - continue seroquel - prn ativan - consult Psychiatry Progress Note: Quality VTE Deep Vein Thrombosis/Pulmonary Embolism Present on Admission: No
[2018-04-30 17:20] LABS: Phosphorus 0.7 mg/dL (2.5-4.9); Potassium 3.8 meq/L (3.5-5.1)
[2018-04-30] MEDS ORDERED: Sodium Glycerophosphate Inj 30 MMOL in Sodium Chlor 0.9% Inj 250 ML IV.SIG ONE (20:00)
[2018-05-01] MEDS: Morphine Sulfate Inj 2 MG/ML Vial IV.PUSH PRN ×4 (02:04→23:09)
[2018-05-01] MEDS: Chlorhexidine Gluconate 2% 1 Pack (2 Cloths) TOPICAL SCH (03:26)
[2018-05-01] MEDS: levETIRAcetam 500 MG Tablet PO SCH ×2 (03:26→16:18)
[2018-05-01 05:05] LABS: Baso % (Auto) 0.5 % (0.0-2.0); Eos # (Auto) 0.2 th/mm3 (0.0-0.4); Eos % (Auto) 2.6 % (0.0-4.0); Hematocrit 36.5 % (39.0-51.0); Lymph # (Auto) 2.5 th/mm3 (1.0-4.8); Lymph % (Auto) 30.4 % (9.0-44.0); Mean Corpuscular HGB Conc 35.6 % (32.0-36.0); Mean Corpuscular Hemoglobin 34.2 pg (27.0-34.0); Mean Platelet Volume 7.5 fL (7.0-11.0); Mono # (Auto) 0.6 th/mm3 (0.0-0.9); Mono % (Auto) 6.8 % (0.0-8.0); Neut % (Auto) 59.7 % (16.0-70.0); Platelet Count 295 th/mm3 (150-450); Red Cell Distribution Width 13.7 % (11.6-17.2); White Blood Count 8.3 th/mm3 (4.0-11.0)
[2018-05-01 05:30] LABS: Anion Gap 7 meq/L (5-15); Blood Urea Nitrogen 13 mg/dL (7-18); Calcium 7.6 mg/dL (8.5-10.1); Carbon Dioxide 27.6 meq/L (21.0-32.0); Chloride 105 meq/L (98-107); Glomerular Filtration Rate Greater Than 89 mL/min (>89); Glucose,Random 106 mg/dL (74-106); Magnesium 1.1 mg/dL (1.5-2.5); Potassium 3.9 meq/L (3.5-5.1); Sodium 140 meq/L (136-145)
[2018-05-01] MEDS: LORazepam 0.5 MG Tablet PO SCH ×4 (05:47→23:05)
[2018-05-01] MEDS: Aspirin 325 MG Tablet PO SCH (09:15)
[2018-05-01] MEDS: Senna/Docusate Sodium 8.6/50 MG Tablet PO SCH ×2 (09:15→23:06)
[2018-05-01] MEDS: Heparin - SQ 10,000 UNITS/ML Vial SQ SCH ×2 (09:15→23:05)
[2018-05-01] MEDS: QUEtiapine 25 MG Tablet PO SCH ×3 (09:16→18:04)
[2018-05-01] MEDS: Pantoprazole Inj 40 MG Vial IV.PUSH SCH (09:16)
--- NOTE | 2018-05-01 12:09 | P.CONPSY ---
Provisional Diagnosis Admission Date: April 29, 2018 01:07 [place] Alcohol, cannabis and benzodiazepine use disorder, history of anxiety and depression History of Present Illness Service: Critical care Primary Care Provider: No Primary Care Physician Chief Complaint: N/V History of Present Illness: The patient is a 32 year-old man, domiciled with his parents in [facility], single, part-time employed as a rental agent, with a psychiatric history of anxiety and depression, cannabis, benzodiazepine and alcohol use disorder, no previous psychiatric hospitalizations, no previous suicide attempts, treated with Seroquel 50 mg twice daily, Ativan 0.5 mg 3 times daily, with a medical history of seizures, hyponatremia, atrial fibrillation previous admissions with hypoNa+, hypoK+ and VTach arrest to ED fore valuation of nausea/vomiting and generally not feeling very well. Patient was admitted late January 2018 with V. fib arrest thought to be secondary to hypokalemia. He eventually was trached and pegged. He has been decannulated and his PEG tube been removed. PEG tube is Located by a fistula tract. He is currently on levetiracetam and valproic acid, both of which can cause hyponatremia/SIADH. Patient also recently had a seizure recently and has a history of seizure disorders and has been taking his anti-epileptics including levetiracetam and valproic acid. Consulted to psychiatry to address polysubstance dependence had a better potential treatment for anxiety. On my psychiatric evaluation today I find a patient that is calm, cooperative, pleasant. He says that he feels much much better today. He describes his mood as actually very good. Reports improved sleep, improve level of energy, denies hopelessness, denies helplessness, denies worthlessness, denies suicidal enemas ideation, he denies visual and auditory hallucinations. The patient reports that he has been very stable in the Seroquel 50 mg 3 times daily and Ativan 0.5 mg 3 times daily for anxiety. He has he says that he has not used alcohol for at least 5 months now. He is fully oriented x3, logical, coherent and relevant. No paranoia, delusions, no agitation or aggressive behavior present. PPHx: with a psychiatric history of anxiety and depression, cannabis, benzodiazepine and alcohol use disorder, no previous psychiatric hospitalizations, no previous suicide attempts, treated with Seroquel 50 mg twice daily, Ativan 0.5 mg 3 times daily, PMHx: with a medical history of seizures, hyponatremia, and atrial fibrillation Substance Hx: Patient has history of alcohol use disorder, he has been in partial remission, cannabis and benzodiazepine use Family Hx: No family psychiatric history Social Hx: Patient was born and raised in [place], he lives in [facility] with his parents, single, part-time employed as a rental agent Review of Systems All other systems reviewed negative except as stated in HPI PMFSH - History History Provided By: Patient - Medical History Medical History: Medical History (Last Updated 05/01/18 @ 08:37 by Dottie Smith) History of MRSA infection Onset Date: ~04/29/18 Alcohol abuse Depression GERD (gastroesophageal reflux disease) Hernia Pancreatitis Seizures - Surgical History Surgical History: Surgical History (Last Reviewed 04/29/18 @ 03:01 by Anand Bird MD) History of left inguinal hernia repair - Family History Family History: Family History (Last Reviewed 04/29/18 @ 03:01 by Anand Bird MD) Other Family history non-contributory - Tobacco History Second Hand Smoke Exposure: No Tobacco Use In Past 30 Days: Yes Smoking Status: Former smoker Tobacco Type: Cigarettes - Alcohol History How Often Do You Have a Drink Containing Alcohol: Never - Substance Use History Substance History: Past History - Substance Use Type Alcohol Status: Early Remission - Travel History History of Recent Travel: No - Immunization History Tetanus Immunization: <5 Years Hx Influenza Vaccine This Season: Yes Medications and Allergies Active Medications: Active Medications Acetaminophen (Tylenol) 650 mg PO Q6H PRN PRN Reason: FEVER >101F Hydrocodone Bitart/Acetaminophen ([place] 5/325) 1 tab PO Q4H PRN PRN Reason: PAIN SCALE 1 TO 5 Last Admin: 05/01/18 04:49 Dose: 1 tab Al Hydroxide/Mg Hydroxide (Milk Of Balta Liq) 30 ml PO Q12H PRN PRN Reason: Mild Constipation Albuterol (Albuterol Neb (Prn)) 2.5 mg NEB Q2HR NEB PRN PRN Reason: SHORTNESS OF BREATH/WHEEZING Aspirin (Aspirin) 325 mg PO DAILY GERMAINE Last Admin: 05/01/18 09:15 Dose: 325 mg Bisacodyl (Dulcolax Supp) 10 mg RECTAL DAILY PRN PRN Reason: SEVERE CONSITIPATION Chlorhexidine Gluconate (Chlorhexidine 2% Cloth) 3 pack TOPICAL DAILY@0400 PRN PRN Reason: Extra cloth needed Stop: 05/04/18 03:59 Chlorhexidine Gluconate (Chlorhexidine 2% Cloth) 3 pack TOPICAL DAILY@0400 [facility] Stop: 05/04/18 03:59 Last Admin: 05/01/18 03:26 Dose: 3 pack Heparin Sodium (Porcine) (Heparin Inj) 5,000 units SQ Q12HR [facility] Last Admin: 05/01/18 09:15 Dose: 5,000 units Magnesium Sulfate 4 gm/ Sodium (Chloride) 100 mls @ 50 mls/hr IV.SIG UNSCH PRN PRN Reason: For Magnesium 0.9 - 1.1 mg/dL Last Admin: 05/01/18 11:09 Dose: 50 mls/hr Potassium Chloride (Kcl 40 Meq Premix Inj) 40 meq in 100 mls @ 50 mls/hr IV.SIG Q2H PRN PRN Reason: For Potassium 2.8 - 3.2 mEq/L Potassium Chloride (Kcl 20 Meq Premix Inj) 20 meq in 100 mls @ 50 mls/hr IV.SIG Q2H PRN PRN Reason: For Potassium 3.3 - 3.5 mEq/L Potassium Chloride (Kcl 40 Meq Premix Inj) 40 meq in 100 mls @ 25 mls/hr IV.SIG UNSCH PRN PRN Reason: For Potassium 3.3 - 3.5 mEq/L Potassium Chloride (Kcl 20 Meq Premix Inj) 20 meq in 100 mls @ 50 mls/hr IV.SIG Q2H PRN PRN Reason: For Potassium 2.8 - 3.2 mEq/L Last Infusion: 04/30/18 03:07 Dose: Infused Sodium Phosphate 30 mmol/ (Sodium Chloride) 260 mls @ 42 mls/hr IV.SIG UNSCH PRN PRN Reason: For Phosphorus < 2.5 mg/dL Magnesium Sulfate 2 gm/ Sodium (Chloride) 100 mls @ 50 mls/hr IV.SIG UNSCH PRN PRN Reason: For Magnesium 1.2 - 1.6 mg/dL Potassium Phosphate 30 mmol/ (Sodium Chloride) 260 mls @ 42 mls/hr IV.SIG UNSCH PRN PRN Reason: SEE LABEL COMMENTS Last Admin: 04/30/18 06:22 Dose: 42 mls/hr Potassium Chloride/Sodium Chloride (Ns + Kcl 40 Meq Inj) 1,000 mls @ 100 mls/ hr IV.CONT .Q10H [facility] Last Admin: 05/01/18 05:48 Dose: Not Given Lactulose (Lactulose Liq) 30 ml PO DAILY PRN PRN Reason: SEVERE CONSITIPATION Levetiracetam (Keppra) 500 mg PO Q12H [facility] Last Admin: 05/01/18 03:26 Dose: 500 mg Lorazepam (Ativan) 0.5 mg PO Q6HR [facility] Last Admin: 05/01/18 05:47 Dose: 0.5 mg Magnesium Oxide (Mag-Ox) 800 mg PO UNSCH PRN PRN Reason: For Magnesium 1.2 - 1.6 mg/dL Morphine Sulfate (Morphine Inj) 2 mg IV.PUSH Q2H PRN PRN Reason: PAIN SCALE 6 TO 10 Last Admin: 05/01/18 07:59 Dose: 2 mg Ondansetron HCl (Zofran Inj) 4 mg IV.PUSH Q6H PRN PRN Reason: NAUSEA OR VOMITING Pantoprazole Sodium (Protonix Inj) 40 mg IV.PUSH DAILY [facility] Last Admin: 05/01/18 09:16 Dose: 40 mg Potassium Bicarb/Potassium Chloride (K-Lyte Cl Eff) 50 meq PO UNSCH PRN PRN Reason: For Potassium 3.3 - 3.5 mEq/L Potassium Chloride (Klor-Con 10) 30 meq PO BID [facility] Last Admin: 05/01/18 09:15 Dose: 30 meq Potassium Phosphate (K-Phos Original) 2,000 mg PO Q4H PRN PRN Reason: Phosphorus Less Than 2.5 mg/dL Potassium Phosphate (K-Phos Original) 2,000 mg PO UNSCH PRN PRN Reason: SEE LABEL COMMENTS Quetiapine Fumarate (Seroquel) 50 mg PO TID [facility] Last Admin: 05/01/18 09:16 Dose: 50 mg Senna/Docusate Sodium (Hiral-Colace) 1 tab PO BID [facility] Last Admin: 05/01/18 09:15 Dose: 1 tab Sennosides (Senokot) 17.2 mg PO Q12H PRN PRN Reason: Moderate Constipation Sodium Chloride (Ns Flush) 2 ml IV.FLUSH BID [facility] Last Admin: 05/01/18 09:16 Dose: 2 ml Sodium Chloride (Ns Flush) 2 ml IV.FLUSH PRN PRN PRN Reason: FLUSH AFTER USING IV ACCESS Thiamine HCl (Vitamin B1) 100 mg PO BID [facility] Last Admin: 05/01/18 09:16 Dose: 100 mg Valproate Sodium (Depakene Liq) 250 mg PO BID [facility] Last Admin: 05/01/18 09:15 Dose: 250 mg Allergies Allergy/AdvReac Type Severity Reaction Status Date / Time Sulfa (Sulfonamide Allergy Severe hives Verified 04/28/18 23:43 Antibiotics) cefepime AdvReac Intermediate Rash, Verified 04/28/18 23:43 Generalized Home Medications Medication Instructions Recorded Confirmed Type levetiracetam [Keppra] 500 mg PO Q12H 01/28/18 04/29/18 History pantoprazole [Protonix] 40 mg PO BID 01/28/18 04/29/18 History quetiapine 50 mg PO TID 04/29/18 04/29/18 History Exam Vital signs: Vital Signs 04/30/18 12:00 04/30/18 13:00 04/30/18 13:01 Temperature 98 F Pulse Rate 88 98 H 98 H Respiratory Rate 29 H 33 H 33 H Blood Pressure 114/60 122/76 Pulse Oximetry 96 99 99 04/30/18 14:00 04/30/18 14:29 04/30/18 15:00 Temperature Pulse Rate 90 75 Respiratory Rate 26 H 24 Blood Pressure 110/69 119/66 Pulse Oximetry 96 98 97 04/30/18 16:00 04/30/18 17:00 04/30/18 17:01 Temperature 97.6 F Pulse Rate 89 96 H 103 H Respiratory Rate 20 35 H 26 H Blood Pressure 117/67 127/69 Pulse Oximetry 98 96 98 04/30/18 18:00 04/30/18 19:00 04/30/18 20:00 Temperature Pulse Rate 95 H 91 H 92 H Respiratory Rate 30 H 30 H 28 H Blood Pressure Pulse Oximetry 100 04/30/18 21:00 04/30/18 21:13 04/30/18 22:00 Temperature Pulse Rate 98 H 93 H 88 Respiratory Rate 29 H 12 25 H Blood Pressure 129/74 Pulse Oximetry 100 04/30/18 23:00 05/01/18 00:00 05/01/18 00:30 Temperature 98.3 F Pulse Rate 93 H 87 101 H Respiratory Rate 30 H 27 H 42 H Blood Pressure 142/85 H Pulse Oximetry 05/01/18 01:00 05/01/18 02:00 05/01/18 03:00 Temperature Pulse Rate 94 H 92 H 101 H Respiratory Rate 33 H 30 H 38 H Blood Pressure Pulse Oximetry 98 99 05/01/18 04:00 05/01/18 05:00 05/01/18 06:00 Temperature 98.3 F Pulse Rate 69 84 97 H Respiratory Rate 27 H 16 16 Blood Pressure 118/78 Pulse Oximetry 98 98 98 05/01/18 07:00 05/01/18 08:00 05/01/18 09:00 Temperature Pulse Rate 86 88 97 H Respiratory Rate 16 16 Blood Pressure 134/86 Pulse Oximetry 99 100 05/01/18 10:00 05/01/18 11:00 Temperature Pulse Rate 96 H 93 H Respiratory Rate Blood Pressure Pulse Oximetry 98 Intake & Output 04/30/18 05/01/18 05/01/18 18:59 06:59 18:59 Intake Total 900 / 900 1930 / 1930 Output Total 1550 / 1550 1100 / 1100 Balance -650 / -650 830 / 830 Weight 79.5 kg Intake: IV 1230 / 1230 NS + KCl 40 mEq Inj 1,000 ML @ 950 / 950 100 mls/hr IV.CONT .Q10H [facility] Rx #:[id number] Glycophos Inj 30 MMOL In NS Inj 280 / 280 250 ML @ 46.667 mls/hr IV.SIG ONCE ONE Rx#:[id number] Oral 900 / 900 700 / 700 Output: Urine 1550 / 1550 1100 / 1100 Other: Date of Last Bowel Movement 04/30/18 04/30/18 04/30/18 # Bowel Movements 1 Narrative: No tremors, no EPS, no psychomotor agitation or retardation, no gait disturbance at the moment - Constitutional no acute distress, mild distress - Routine HEENT Exam Head: Present: normocephalic, atraumatic Eye: Present: EOMI, PERRL ENT: Present: mucous membranes moist Mental Status Examination Appearance: Appropriate Consciousness: Alert Orientation: x4 Motor Activity: Normal gait Speech: Unremarkable Language: Adequate Fund of Knowledge: Adequate Attention and Concentration: Adequate Memory: Unremarkable Mood: Appropriate Affect: Appropriate Thought Process & Associations: Intact Thought Content: Appropriate Hallucination Type: None Delusion Type: None Suicidal Ideation: No Suicidal Plan: No Suicidal Intention: No Homicidal Ideation: No Homicidal Plan: No Homicidal Intention: No Insight: Adequate Judgment: Adequate Assessment and Plan - Assessment (1) Generalized anxiety disorder Code(s): F41.1 - Generalized anxiety disorder Status: Acute (2) Generalized anxiety disorder Code(s): F41.1 - Generalized anxiety disorder Status: Acute - Plan Plan: Estimated LOS: [] days No admission in psychiatry indicated. Justification for Continued Inpatient Stay: On my psychiatric evaluation today the patient presents calm, cooperative, logical, coherent and relevant. He reports good mood, denies anhedonia, denies hopelessness, helplessness, denies worthlessness, he denies suicidal enemas ideation, he denies visual and auditory hallucinations. The patient reports occasional anxiety related with his medical condition and hospital stay, but in general he is responsive to current psychotropic regimen. There is a patient with a psychiatric history of anxiety and depression, polysubstance dependence including alcohol, benzodiazepines and cannabis, history of withdrawal and seizures in the past. I completely agree with the Seroquel 50 mg 3 times daily. Given his history of benzodiazepines and alcohol use, and SSRI is preferred for his anxiety, Paxil of Celexa 10 mg daily. Continue his psychiatric care as an outpatient. No admission is indicated. Extensive psychoeducation, supportive motivation provided. Consult appreciated.
[2018-05-01] MEDS ORDERED: Mag Sulf 1 gm/100 ml Premix 100 ML IV.SIG SCH (13:38)
--- NOTE | 2018-05-01 14:01 | P.PNIM ---
Subjective Interval history: No new complaints. Pt tolerating PO intake. No vomiting per nursing staff. Physical Exam Vital signs: Last Vital Signs Temp 98.3 F 05/01/18 04:00 Pulse 93 H 05/01/18 11:00 Resp 18 05/01/18 08:00 BP 134/86 05/01/18 08:00 Pulse Ox 98 05/01/18 11:00 Results Labs CBC & Chem 7: 05/01/18 04:06 05/02/18 14:49 Assessment and Plan Assessment (1) Acute kidney injury: Code(s): N17.9 - Acute kidney failure, unspecified Status: Acute (2) Hyponatremia: Code(s): E87.1 - Hypo-osmolality and hyponatremia Status: Acute (3) Hypokalemia: Code(s): E87.6 - Hypokalemia Status: Acute (4) Seizure disorder: Code(s): G40.909 - Epilepsy, unspecified, not intractable, without status epilepticus Status: Acute Plan Hyponatremia Hypokalemia [place] 34 year old male. DOA 04/29/18. PMH Sz, ETOH, depression, admissions with hypoNa+, hypoK+ and VTach arrest to ED fore valuation of nausea/vomiting and generally not feeling very well. Patient was admitted late January 2018 with V. fib arrest thought to be secondary to hypokalemia. He eventually was trached and pegged. He has been decannulated and his PEG tube been removed. PEG tube is Located by a fistula tract. He is currently on levetiracetam and valproic acid, both of which can cause hyponatremia/SIADH. Patient also recently had a seizure recently and has a history of seizure disorders and has been taking his anti epileptics including levetiracetam and valproic acid.. He is on chronic benzodiazepines. Patient denies fevers, cough congestion. Denies CP or palpiations. Symptoms have been gradually coming on but for the past few hours has felt as though he was going to pass out. - NA 118 (04/28), 134 (05/01), 140 (05/01) - hyponatremia resolved with IVFs - K 2.5 (04/28), 3.8 (04/30), 3.9 (05/01) - hypokalemia resolved with supplementation - Magnesium low 1.1 (05/01) - supplement magnesium & repeat level in AM. - Pt has seizure disorder. Would like to see level increase prior to disorder. - per pt's mother, Mr. Low continues to suffer from bulemia and regularly induces vomiting - induced vomiting is the probable cause for pt's electrolyte abnormalities and admission - appreciate input from Psychiatry. See below. seizure disorder - keppra - depakene - prn ativan depression anxiety - continue seroquel - prn ativan - start SSRI per Psychiatry recommendations. - possible QT prolongation with combination of seroquel & SSRI. Case d/w [facility]. Less potenial for QT prolongation with use of SNRI - Start effexor 25mg BID - f/u with [facility] outpt. Progress Note: Quality VTE Deep Vein Thrombosis/Pulmonary Embolism Present on Admission: No
--- NOTE | 2018-05-01 17:31 | P.PNNP ---
Subjective Interval history: Patient seen in AM, alert, eating better, no SOB. Physical Exam Vital signs: Vital Signs 04/30/18 18:00 04/30/18 19:00 04/30/18 20:00 Temperature Pulse Rate 95 H 91 H 92 H Respiratory Rate 30 H 30 H 28 H Blood Pressure Pulse Oximetry 100 04/30/18 21:00 04/30/18 21:13 04/30/18 22:00 Temperature Pulse Rate 98 H 93 H 88 Respiratory Rate 29 H 12 25 H Blood Pressure 129/74 Pulse Oximetry 100 04/30/18 23:00 05/01/18 00:00 05/01/18 00:30 Temperature 98.3 F Pulse Rate 93 H 87 101 H Respiratory Rate 30 H 27 H 42 H Blood Pressure 142/85 H Pulse Oximetry 05/01/18 01:00 05/01/18 02:00 05/01/18 03:00 Temperature Pulse Rate 94 H 92 H 101 H Respiratory Rate 33 H 30 H 38 H Blood Pressure Pulse Oximetry 98 99 05/01/18 04:00 05/01/18 05:00 05/01/18 06:00 Temperature 98.3 F Pulse Rate 69 84 97 H Respiratory Rate 27 H 16 16 Blood Pressure 118/78 Pulse Oximetry 98 98 98 05/01/18 07:00 05/01/18 08:00 05/01/18 09:00 Temperature Pulse Rate 86 88 97 H Respiratory Rate 16 16 Blood Pressure 134/86 Pulse Oximetry 99 100 05/01/18 10:00 05/01/18 11:00 05/01/18 12:00 Temperature 98.9 F Pulse Rate 96 H 93 H 85 Respiratory Rate 16 Blood Pressure 105/64 Pulse Oximetry 98 05/01/18 14:00 05/01/18 16:00 Temperature 98.2 F Pulse Rate 94 H 87 Respiratory Rate 15 Blood Pressure 129/75 Pulse Oximetry 100 Intake & Output 04/30/18 05/01/18 05/01/18 18:59 06:59 18:59 Intake Total 900 / 900 1930 / 1930 1360 / 1360 Output Total 1550 / 1550 1100 / 1100 1600 / 1600 Balance -650 / -650 830 / 830 -240 / -240 Weight 79.5 kg Intake: IV 1230 / 1230 1360 / 1360 NS + KCl 40 mEq Inj 1,000 ML @ 950 / 950 1000 / 1000 100 mls/hr IV.CONT .Q10H [facility] Rx #:[id number] Magnesium Sulfate Inj 4 GM In 100 / 100 NS Inj 92 ML @ 50 mls/hr IV.SIG UNSCH PRN Rx#:[id number] Potassium Phosphate Inj 30 MMOL 260 / 260 In NS Inj 250 ML @ 42 mls/hr IV.SIG UNSCH PRN Rx#:[id number] Glycophos Inj 30 MMOL In NS Inj 280 / 280 250 ML @ 46.667 mls/hr IV.SIG ONCE ONE Rx#:[id number] Oral 900 / 900 700 / 700 Output: Urine 1550 / 1550 1100 / 1100 1600 / 1600 Other: Date of Last Bowel Movement 04/30/18 04/30/18 04/30/18 # Bowel Movements 1 1 Narrative: No tremors, no EPS, no psychomotor agitation or retardation, no gait disturbance at the moment Assessment and Plan - Assessment (1) Acute kidney injury Code(s): N17.9 - Acute kidney failure, unspecified Status: Acute Plan: Patient has MARK and electrolyte disorder. Sodium and K started improving. Continue IVF, encourage oral intake. Has MARK, possibly related to pre renal and dehydration. 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 Creatinine is now normalized, will add K sparing diuretics. Start Aldactone 25 mg BID. (2) Hyponatremia Code(s): E87.1 - Hypo-osmolality and hyponatremia Status: Acute Plan: Sodium level 118 on admission and now 122 with IVF administration. Serum and and urine osmolarity ordered. Uric acid level is elevated at 14.6, cortisol level normal at 18, TSH normal He is currently on levetiracetam and valproic acid, both of which can cause hyponatremia/SIADH. Usually with SIADH uric acid levels on the lower side. With suspected prerenal azotemia, FeNa of less than 1 % and hyperuricemia is more indicative of hypovolemia hyponatremia. Recommend to continue IVF's. Monitor serial sodium levels. (3) Hypokalemia Code(s): E87.6 - Hypokalemia Status: Acute Plan: Improving on replacement. (4) Seizure disorder Code(s): G40.909 - Epilepsy, unspecified, not intractable, without status epilepticus Status: Acute Plan: Continue home medications.
[2018-05-01] MEDS: Spironolactone 25 MG Tablet PO SCH (18:03)
[2018-05-02] MEDS: Chlorhexidine Gluconate 2% 1 Pack (2 Cloths) TOPICAL SCH (03:53)
[2018-05-02] MEDS: Morphine Sulfate Inj 2 MG/ML Vial IV.PUSH PRN (05:07)
[2018-05-02] MEDS: levETIRAcetam 500 MG Tablet PO SCH ×2 (05:07→17:26)
[2018-05-02] MEDS: LORazepam 0.5 MG Tablet PO SCH ×4 (05:07→23:22)
[2018-05-02 06:26] LABS: Anion Gap 4 meq/L (5-15); Blood Urea Nitrogen 9 mg/dL (7-18); Calcium 8.9 mg/dL (8.5-10.1); Carbon Dioxide 22.6 meq/L (21.0-32.0); Chloride 110 meq/L (98-107); Glomerular Filtration Rate Greater Than 89 mL/min (>89); Glucose,Random 90 mg/dL (74-106); Magnesium 1.6 mg/dL (1.5-2.5); Potassium 5.7 meq/L (3.5-5.1); Sodium 137 meq/L (136-145)
[2018-05-02] MEDS: Senna/Docusate Sodium 8.6/50 MG Tablet PO SCH ×2 (08:46→20:35)
[2018-05-02] MEDS: QUEtiapine 25 MG Tablet PO SCH ×3 (08:47→17:26)
[2018-05-02] MEDS: Spironolactone 25 MG Tablet PO SCH ×2 (08:47→17:27)
[2018-05-02] MEDS: Aspirin 325 MG Tablet PO SCH (08:47)
[2018-05-02] MEDS: Pantoprazole Inj 40 MG Vial IV.PUSH SCH (08:47)
[2018-05-02] MEDS: Heparin - SQ 10,000 UNITS/ML Vial SQ SCH ×2 (08:47→20:35)
--- NOTE | 2018-05-02 09:55 | P.PNNP ---
Subjective Interval history: Patient alert and oriented in good spirits. Denies any shortness of breath, chest pain, nausea, or vomiting. Sodium level stable. Potassium level elevated at 5.7 up to 5.9. <Ceci Patricio - Last Filed: 05/02/18 15:28> Physical Exam Vital signs: Vital Signs 05/01/18 10:00 05/01/18 11:00 05/01/18 12:00 Temperature 98.9 F Pulse Rate 96 H 93 H 85 Respiratory Rate 16 Blood Pressure 105/64 Pulse Oximetry 98 05/01/18 14:00 05/01/18 15:47 05/01/18 16:00 Temperature 98.2 F Pulse Rate 94 H 87 Respiratory Rate 15 Blood Pressure 129/75 Pulse Oximetry 100 100 05/01/18 20:00 05/02/18 00:00 Temperature 98.0 F 97.5 F L Pulse Rate 94 H 88 Respiratory Rate 18 18 Blood Pressure 137/79 134/80 Pulse Oximetry 100 100 Intake & Output 05/01/18 05/02/18 05/02/18 18:59 06:59 18:59 Intake Total 1360 / 1360 1760 / 1760 Output Total 1600 / 1600 Balance -240 / -240 1760 / 1760 Weight 79.5 kg Intake: IV 1360 / 1360 1000 / 1000 NS + KCl 40 mEq Inj 1,000 ML @ 1000 / 1000 1000 / 1000 100 mls/hr IV.CONT .Q10H [facility] Rx #:[id number] Magnesium Sulfate Inj 4 GM In 100 / 100 NS Inj 92 ML @ 50 mls/hr IV.SIG UNSCH PRN Rx#:[id number] Potassium Phosphate Inj 30 MMOL 260 / 260 In NS Inj 250 ML @ 42 mls/hr IV.SIG UNSCH PRN Rx#:[id number] Oral 760 / 760 Output: Urine 1600 / 1600 Other: # Voids 3 Date of Last Bowel Movement 04/30/18 04/30/18 # Bowel Movements 1 Narrative: GENERAL: alert and oriented. SKIN: Warm and dry. NECK: Supple, trachea midline. No JVD CARDIOVASCULAR: Regular rate and rhythm without murmurs, gallops, or rubs. RESPIRATORY: Breath sounds equal bilaterally. No accessory muscle use. GASTROINTESTINAL: Abdomen soft, non-tender, nondistended. MUSCULOSKELETAL: No cyanosis, or edema. BACK: Nontender without obvious deformity. No CVA tenderness. <Ceci Patricio - Last Filed: 05/02/18 15:28> Vital signs: Vital Signs 05/02/18 20:00 05/02/18 22:54 05/03/18 00:00 Temperature 97.1 F L 97.7 F Pulse Rate 87 81 Respiratory Rate 18 6 L 18 Blood Pressure 143/91 H 134/92 H Pulse Oximetry 99 97 05/03/18 02:21 05/03/18 07:12 05/03/18 08:00 Temperature 97.8 F Pulse Rate 73 Respiratory Rate 20 20 17 Blood Pressure 120/74 Pulse Oximetry 95 05/03/18 12:00 05/03/18 16:00 Temperature 97.4 F L 97.5 F L Pulse Rate 92 H 105 H Respiratory Rate 17 17 Blood Pressure 133/78 117/71 Pulse Oximetry 93 L 99 Intake & Output 05/02/18 05/03/18 05/03/18 18:59 06:59 18:59 Intake Total 250 / 250 780 / 780 1200 / 1200 Output Total 1000 / 1000 Balance -750 / -750 780 / 780 1200 / 1200 Weight 79.5 kg Intake: IV 250 / 250 NS + KCl 40 mEq Inj 1,000 ML @ 250 / 250 100 mls/hr IV.CONT .Q10H [facility] Rx #:[id number] Oral 780 / 780 1200 / 1200 Output: Urine 1000 / 1000 Other: # Voids 3 6 Date of Last Bowel Movement 05/02/18 # Bowel Movements 1 1 1 <Yoon Hendricks - Last Filed: 05/03/18 18:17> Assessment and Plan - Assessment (1) Acute kidney injury Code(s): N17.9 - Acute kidney failure, unspecified Status: Acute Plan: Patient has MARK and electrolyte disorder. Has MARK, possibly related to pre renal and dehydration. 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 Creatinine is now normalized Hyperkalemic this morning at 5.7 -> 5.9 all potassium replacement and IVF with potassium discontinued Will treat with Veltassa x 1 Will continue Aldactone 25 mg BID but if remains elevated may need to discontinue Labs in AM (2) Hyponatremia Code(s): E87.1 - Hypo-osmolality and hyponatremia Status: Acute Plan: Hyponatremia has resolved. (3) Hypokalemia Code(s): E87.6 - Hypokalemia Status: Acute Plan: Elevated today and all replacement discontinued. (4) Seizure disorder Code(s): G40.909 - Epilepsy, unspecified, not intractable, without status epilepticus Status: Acute Plan: Continue home medications. <Ceci Patricio - Last Filed: 05/02/18 15:28> - Assessment (1) Acute kidney injury Code(s): N17.9 - Acute kidney failure, unspecified Status: Acute Plan: Patient seen and examined, agree with above. K is high, possibly related to IV replacement. Follow K level. (2) Hyponatremia Code(s): E87.1 - Hypo-osmolality and hyponatremia Status: Acute (3) Hypokalemia Code(s): E87.6 - Hypokalemia Status: Acute (4) Seizure disorder Code(s): G40.909 - Epilepsy, unspecified, not intractable, without status epilepticus Status: Acute <Yoon Hendricks - Last Filed: 05/03/18 18:17>
--- NOTE | 2018-05-02 17:05 | P.PNIM ---
Subjective Interval history: No new complaints. Physical Exam Vital signs: Last Vital Signs Temp 97.8 F 05/02/18 12:00 Pulse 89 05/02/18 12:00 Resp 17 05/02/18 12:00 BP 128/68 05/02/18 12:00 Pulse Ox 100 05/02/18 12:00 Results Labs CBC & Chem 7: 05/01/18 04:06 05/02/18 14:49 Assessment and Plan Assessment (1) Acute kidney injury: Code(s): N17.9 - Acute kidney failure, unspecified Status: Acute (2) Hyponatremia: Code(s): E87.1 - Hypo-osmolality and hyponatremia Status: Acute (3) Hypokalemia: Code(s): E87.6 - Hypokalemia Status: Acute (4) Seizure disorder: Code(s): G40.909 - Epilepsy, unspecified, not intractable, without status epilepticus Status: Acute Plan Hyponatremia Hypokalemia Bulemia 34 year old male. DOA 04/29/18. PMH Sz, ETOH, depression, admissions with hypoNa+, hypoK+ and VTach arrest to ED fore valuation of nausea/vomiting and generally not feeling very well. Patient was admitted late January 2018 with V. fib arrest thought to be secondary to hypokalemia. He eventually was trached and pegged. He has been decannulated and his PEG tube been removed. PEG tube is Located by a fistula tract. He is currently on levetiracetam and valproic acid, both of which can cause hyponatremia/SIADH. Patient also recently had a seizure recently and has a history of seizure disorders and has been taking his anti epileptics including levetiracetam and valproic acid.. He is on chronic benzodiazepines. Patient denies fevers, cough congestion. Denies CP or palpiations. Symptoms have been gradually coming on but for the past few hours has felt as though he was going to pass out. - NA 118 (04/28), 134 (05/01), 140 (05/01) - hyponatremia resolved with IVFs - K 2.5 (04/28), 3.8 (04/30), 3.9 (05/01) - hypokalemia resolved with supplementation - Magnesium low 1.1 (05/01) - supplement magnesium & repeat level in AM. - Pt has seizure disorder. Would like to see level increase prior to disorder. - per pt's mother, Mr. Low continues to suffer from bulemia and regularly induces vomiting - induced vomiting is the probable cause for pt's electrolyte abnormalities and admission - appreciate input from Psychiatry. See below. Hyperkalemia - stop supplemental potassium - kayexalate - repeat BMP in AM - anticipate d/c 05/03/18 seizure disorder - keppra - depakene - prn ativan depression anxiety - continue seroquel - prn ativan - start SSRI per Psychiatry recommendations. - possible QT prolongation with combination of seroquel & SSRI. Case d/w [facility]. Less potenial for QT prolongation with use of SNRI - Start effexor 25mg BID - f/u with [facility] outpt. Progress Note: Quality VTE Deep Vein Thrombosis/Pulmonary Embolism Present on Admission: No
[2018-05-02] MEDS ORDERED: Sodium Polystyrene Sulfonate Powder 15 GM Bottle PO ONE (17:45)
[2018-05-03] MEDS: Chlorhexidine Gluconate 2% 1 Pack (2 Cloths) TOPICAL SCH (03:36)
[2018-05-03] MEDS: levETIRAcetam 500 MG Tablet PO SCH ×2 (03:36→16:54)
[2018-05-03] MEDS: LORazepam 0.5 MG Tablet PO SCH ×3 (05:52→18:08)
[2018-05-03 06:53] LABS: Anion Gap 6 meq/L (5-15); Blood Urea Nitrogen 17 mg/dL (7-18); Calcium 8.4 mg/dL (8.5-10.1); Carbon Dioxide 23.8 meq/L (21.0-32.0); Chloride 109 meq/L (98-107); Glomerular Filtration Rate Greater Than 89 mL/min (>89); Glucose,Random 91 mg/dL (74-106); Potassium 5.3 meq/L (3.5-5.1); Sodium 139 meq/L (136-145)
[2018-05-03] MEDS: Pantoprazole Inj 40 MG Vial IV.PUSH SCH (10:28)
[2018-05-03] MEDS: QUEtiapine 25 MG Tablet PO SCH ×3 (10:28→18:08)
[2018-05-03] MEDS: Heparin - SQ 10,000 UNITS/ML Vial SQ SCH (10:28)
[2018-05-03] MEDS: Aspirin 325 MG Tablet PO SCH (10:28)
[2018-05-03] MEDS: Senna/Docusate Sodium 8.6/50 MG Tablet PO SCH (10:29)
[2018-05-03] MEDS: Spironolactone 25 MG Tablet PO SCH (10:29)
--- NOTE | 2018-05-03 11:33 | P.PNNP ---
Subjective Interval history: Patient is resting comfortably with no complaints. Potassium level remains slightly elevated this morning at 5.3 repeat in process. Received Veltassa and Kayexalate yesterday. <Ceci Patricio - Last Filed: 05/03/18 15:28> Physical Exam Vital signs: Vital Signs 05/02/18 12:00 05/02/18 16:00 05/02/18 20:00 Temperature 97.8 F 97.7 F 97.1 F L Pulse Rate 89 88 87 Respiratory Rate 17 15 18 Blood Pressure 128/68 119/72 143/91 H Pulse Oximetry 100 100 99 05/02/18 22:54 05/03/18 00:00 05/03/18 02:21 Temperature 97.7 F Pulse Rate 81 Respiratory Rate 6 L 18 20 Blood Pressure 134/92 H Pulse Oximetry 97 05/03/18 07:12 05/03/18 08:00 Temperature 97.8 F Pulse Rate 73 Respiratory Rate 20 17 Blood Pressure 120/74 Pulse Oximetry 95 Intake & Output 05/02/18 05/03/18 05/03/18 18:59 06:59 18:59 Intake Total 250 / 250 780 / 780 Output Total 1000 / 1000 Balance -750 / -750 780 / 780 Weight 79.5 kg Intake: IV 250 / 250 NS + KCl 40 mEq Inj 1,000 ML @ 250 / 250 100 mls/hr IV.CONT .Q10H [facility] Rx #:[id number] Oral 780 / 780 Output: Urine 1000 / 1000 Other: # Voids 3 Date of Last Bowel Movement 05/02/18 # Bowel Movements 1 1 Narrative: GENERAL: alert and oriented. SKIN: Warm and dry. NECK: Supple, trachea midline. No JVD CARDIOVASCULAR: Regular rate and rhythm without murmurs, gallops, or rubs. RESPIRATORY: Breath sounds equal bilaterally. No accessory muscle use. GASTROINTESTINAL: Abdomen soft, non-tender, nondistended. MUSCULOSKELETAL: No cyanosis, or edema. BACK: Nontender without obvious deformity. No CVA tenderness. <Ceci Patricio - Last Filed: 05/03/18 15:28> Vital signs: Vital Signs 05/02/18 20:00 05/02/18 22:54 05/03/18 00:00 Temperature 97.1 F L 97.7 F Pulse Rate 87 81 Respiratory Rate 18 6 L 18 Blood Pressure 143/91 H 134/92 H Pulse Oximetry 99 97 05/03/18 02:21 05/03/18 07:12 05/03/18 08:00 Temperature 97.8 F Pulse Rate 73 Respiratory Rate 20 20 17 Blood Pressure 120/74 Pulse Oximetry 95 05/03/18 12:00 05/03/18 16:00 Temperature 97.4 F L 97.5 F L Pulse Rate 92 H 105 H Respiratory Rate 17 17 Blood Pressure 133/78 117/71 Pulse Oximetry 93 L 99 Intake & Output 05/02/18 05/03/18 05/03/18 18:59 06:59 18:59 Intake Total 250 / 250 780 / 780 1200 / 1200 Output Total 1000 / 1000 Balance -750 / -750 780 / 780 1200 / 1200 Weight 79.5 kg Intake: IV 250 / 250 NS + KCl 40 mEq Inj 1,000 ML @ 250 / 250 100 mls/hr IV.CONT .Q10H [facility] Rx #:[id number] Oral 780 / 780 1200 / 1200 Output: Urine 1000 / 1000 Other: # Voids 3 6 Date of Last Bowel Movement 05/02/18 # Bowel Movements 1 1 1 <Yoon Hendricks - Last Filed: 05/03/18 18:41> Assessment and Plan - Assessment (1) Acute kidney injury Code(s): N17.9 - Acute kidney failure, unspecified Status: Acute Plan: Patient has MARK and electrolyte disorder. Has MARK, possibly related to pre renal and dehydration. 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 Creatinine is now normalized Slightly hyperkalemic today at 5.3, repeat in process Aldactone 25 mg decreased to daily with hyperkalemia. (2) Hyponatremia Code(s): E87.1 - Hypo-osmolality and hyponatremia Status: Acute Plan: Hyponatremia has resolved. (3) Hypokalemia Code(s): E87.6 - Hypokalemia Status: Acute Plan: Elevated today and all replacement discontinued. (4) Seizure disorder Code(s): G40.909 - Epilepsy, unspecified, not intractable, without status epilepticus Status: Acute Plan: Continue home medications. <Ceci Patricio - Last Filed: 05/03/18 15:28> - Assessment (1) Acute kidney injury Code(s): N17.9 - Acute kidney failure, unspecified Status: Acute Plan: Patient seen and examined, agree with above. K was increased and now 5.3, decrease Aldactone to daily. Follow the K and Hco3. (2) Hyponatremia Code(s): E87.1 - Hypo-osmolality and hyponatremia Status: Acute (3) Hypokalemia Code(s): E87.6 - Hypokalemia Status: Acute (4) Seizure disorder Code(s): G40.909 - Epilepsy, unspecified, not intractable, without status epilepticus Status: Acute <Yoon Hendricks - Last Filed: 05/03/18 18:41>
--- NOTE | 2018-05-03 16:27 | P.DS ---
DS: Providers Primary care physician: No Primary Care Physician Consults: 04/29/18 02:26 Consult to Nephrology Routine Consulting Provider: Yoon Hendricks Does the patient have a Cinder Crane Operator who follows them?: No Preferred Nephrology Educational Technology Coordinator:: Administrative Resources Associate Physician Reason for Consultation: recurrent hyponatremia and hypopotaassemia. assist with management Notified:: Service Spoke with:: LOEVLY Date Notified:: 04/29/18 Time Notified:: 03:01 Ordering Provider: DAMION 04/29/18 13:45 Consult to Hospitalist Routine Consulting Provider: Quirino Cantu Reason for Consultation: Assume care in am 04/30/18 Notified:: Service Spoke with:: KATE Date Notified:: 04/29/18 Time Notified:: 13:51 Ordering Provider: REJI 04/30/18 12:50 Consult to Psychiatry Routine Consulting Provider: Yash Graf Reason for Consultation: h/o polysubstance abuse h/o bulemia admission for electrolyte abnormalities Notified:: Service Spoke with:: JANELL Date Notified:: 04/30/18 Time Notified:: 13:16 Ordering Provider: LEANNE Brief History from admission: 34 year old male. DOA 04/29/18. PMH Sz , ETOH, depression, admissions with hypoNa+, hypoK+ and VTach arrest to ED fore valuation of nausea/vomiting and generally not feeling very well. Patient was admitted late January 2018 with V. fib arrest thought to be secondary to hypokalemia. He eventually was trached and pegged. He has been decannulated and his PEG tube been removed. PEG tube is Located by a fistula tract. He is currently on levetiracetam and valproic acid, both of which can cause hyponatremia/SIADH. Patient also recently had a seizure recently and has a history of seizure disorders and has been taking his anti epileptics including levetiracetam and valproic acid.. He is on chronic benzodiazepines. Patient denies fevers, cough congestion. Denies CP or palpiations. Symptoms have been gradually coming on but for the past few hours has felt as though he was going to pass out. Na+ 118. K+ 2.5. Cr 2.2. received 80 mEq K+ in ED. Recheck at 0500. Due to previous admit, ICU for monitoring, Stella c/s. Currently requesting medications for anxiety. DS: Diagnosis Discharge Diagnosis (1) Acute kidney injury: Status: Acute (2) Hyponatremia: Status: Acute (3) Hypokalemia: Status: Acute (4) Seizure disorder: Status: Acute DS: Summary Hyponatremia Hypokalemia Bulemia 34 year old male. DOA 04/29/18. PMH Sz, ETOH, depression, admissions with hypoNa+, hypoK+ and VTach arrest to ED fore valuation of nausea/vomiting and generally not feeling very well. Patient was admitted late January 2018 with V. fib arrest thought to be secondary to hypokalemia. He eventually was trached and pegged. He has been decannulated and his PEG tube been removed. PEG tube is Located by a fistula tract. He is currently on levetiracetam and valproic acid, both of which can cause hyponatremia/SIADH. Patient also recently had a seizure recently and has a history of seizure disorders and has been taking his anti epileptics including levetiracetam and valproic acid.. He is on chronic benzodiazepines. Patient denies fevers, cough congestion. Denies CP or palpiations. Symptoms have been gradually coming on but for the past few hours has felt as though he was going to pass out. - NA 118 (04/28), 134 (05/01), 140 (05/01) - hyponatremia resolved with IVFs - K 2.5 (04/28), 3.8 (04/30), 3.9 (05/01) - hypokalemia resolved with supplementation - Magnesium low 1.1 (05/01) - supplement magnesium & repeat level in AM. - Pt has seizure disorder. Would like to see level increase prior to disorder. - per pt's mother, Mr. Low continues to suffer from bulemia and regularly induces vomiting - induced vomiting is the probable cause for pt's electrolyte abnormalities and admission - appreciate input from Psychiatry. See below. Hyperkalemia - stop supplemental potassium - kayexalate - repeat BMP 5.0 seizure disorder - keppra - depakene - prn ativan depression anxiety - continue seroquel - prn ativan - start SSRI per Psychiatry recommendations. - possible QT prolongation with combination of seroquel & SSRI. Case d/w [facility]. Less potenial for QT prolongation with use of SNRI - Start effexor 25mg BID - f/u with [facility] and PCP outpt. Time Spent with Patient Total time spent providing and/or coordinating discharge services: Quality: VTE Deep Vein Thrombosis/Pulmonary Embolism Present on Admission: No Exam Narrative Exam Narrative: GENERAL: This is a thin, well-developed patient, in no apparent distress. CARDIOVASCULAR: Regular rate and rhythm RESPIRATORY: Clear to auscultation. Breath sounds equal bilaterally. GASTROINTESTINAL: Abdomen soft, non-tender, nondistended. Normal active bowel sounds MUSCULOSKELETAL: Extremities without clubbing, cyanosis, or edema. NEURO: Alert & Oriented x4 to person, place, time, situation. Moves all ext x4 Results Labs on day of discharge: Labs from last 24 hours 05/03/18 05/03/18 05/01/18 15:35 06:02 23:23 Sodium 139 Potassium 5.0 5.3 H Chloride 109 H Carbon Dioxide 23.8 Anion Gap 6 BUN 17 Creatinine 0.88 Estimated GFR Greater than 89 POC Glucose 92 Random Glucose 91 Calcium 8.4 L Impressions ITS Impressions Abdomen/Pelvis CT 04/29/18 00:58 CONCLUSION: 1. No acute abnormality is identified within the abdomen or pelvis on this noncontrast examination. 2. Decreased size of the complex cystic lesion at the tail the pancreas. Etiology is uncertain but as described previously this could represent a pseudocyst if there is a known history of pancreatitis. This lesion was first visualized on the 02/20/2018 examination. Suggest attention to this at follow-up imaging to confirm resolution. Pancreas protocol MRI with and without intravenous contrast could be obtained on an outpatient elective basis for further characterization, if needed. Abdomen/Bladder Ultrasound 04/29/18 02:55 CONCLUSION: 1. Unremarkable bilateral renal ultrasound. Discharge Plan Discharge Disposition Patient Disposition: W/Home Health Service Discharge Condition Condition: Stable Discharge Order Discharge Orders: Discharge Order (Routine); Ordered 05/03/18 Ordered By: Iza Engel Physicians Team ED Provider: Bradford Krishnan Primary Care Provider: Primary Care Neo,Mariya Attending Provider: Quirino Cantu Other Providers: Yoon Hendricks ; Quirino Cantu ; Yash Graf ; [facility] Rxs /Orders / Referrals /Forms Prescriptions: New venlafaxine 25 mg Tablet 25 mg PO BID 30 Days Qty: 60 RF: 0 Continue ondansetron HCl [Zofran] 4 mg tablet 4 mg PO Q8H PRN (Reason: nausea and vomiting) Qty: 20 RF: 0 quetiapine 300 mg tablet 50 mg PO TID RF: 0 levetiracetam [Keppra] 500 mg Tablet 500 mg PO Q12H RF: 0 pantoprazole [Protonix] [address] For Susp In Packet 40 mg PO BID RF: 0 aspirin 325 mg Tablet 325 mg PO DAILY RF: 0 lorazepam 0.5 mg Tablet 0.5 mg PO Q6HR RF: 0 oxycodone 20 mg/mL Concentrate 15 mg PO Q6H RF: 0 valproic acid (as sodium salt) 250 mg/5 mL (5 mL) Solution 250 mg PO BID RF: 0 thiamine HCl (vitamin B1) 100 mg Tablet 100 mg PO BID RF: 0 Ambulatory Orders / Order Sets / DME: Basic Metabolic Panel (Routine) Timeframe: [id number] Location: Determined by Patient Ordered By: Iza Engel Walker With Front Wheels (1 each) (Routine) Location: Determined by Patient Ordered By: zIa Engel Referrals: Jin Juarez MD [Physician] - See Instructions (Follow up in one week) Primary Care Mariya Larson [Primary Care Provider] - See Instructions (follow up in 3-5 days ) Discharge Instructions Patient Printed Instructions: Hyponatremia (DC), Hypokalemia (DC), Bulimia Nervosa (DC) Additional Instructions: Follow up with [facility] outpatient mental health Dr. Shipley Status ED Status: Left Department
--- NOTE | 2018-05-03 17:02 | P.DCO ---
Diagnosis (1) Acute kidney injury: Status: Acute (2) Hyponatremia: Status: Acute (3) Hypokalemia: Status: Acute (4) Seizure disorder: Status: Acute Physical Therapy Order: Evaluate and treat Home Health Nursing Order: Medical education, Signs/symptoms of disease process, Medication education-adverse effect and Nursing assessment with vital signs Case Management Consult Case Management Consult-Home Health: Yes I have seen patient Ashkan Low on 05/03/18. My clinical findings support the need for the requested home health care services because: Medication compliance is questionable and Limited ability to care for self I certify that my clinical findings support that this patient is homebound because: Unsteady gait/balance
[2018-05-04] MEDS ORDERED: Spironolactone 25 MG Tablet PO SCH (09:00)
== END 2018-05-03 18:55 | disposition home health service (06) ==
LOC: NEPC 21:33 → NEDA 04-29 01:07 → HIMC 04-29 03:55 → N07 05-01 15:43
PROVIDERS: ADMIT Hospitalist; ATTEND Hospitalist
DX: G40.909 Epilepsy, unspecified, not intractable, without status epilepticus; E83.42 Hypomagnesemia; E87.1 Hypo-osmolality and hyponatremia; F50.2 Bulimia nervosa; E87.5 Hyperkalemia; N17.9 Acute kidney failure, unspecified; F32.9 Major depressive disorder, single episode, unspecified; F41.1 Generalized anxiety disorder; E87.6 Hypokalemia; F17.210 Nicotine dependence, cigarettes, uncomplicated; F10.11 Alcohol abuse, in remission